=== PATIENT | male | born 1955 | race Caucasian/White ===

== ENCOUNTER 2024-11-03 17:19 | Inpatient (IN) | payer OTHER ==
[~2024-11-03] VITALS: Ht 177.8 cm; Wt 89.2 kg
[~2024-11-03 17:19] MED LIST: ALBUMIN (HUMAN) 25% 50 ML IV ONE; CACL 1GM SYG IVP ONE; LIDOCAINE PF 100MG/5ML (2%) SYRINGE 5ML IVP ONE; MAGNESIUM SULFATE 1 GM/2 ML VIAL IM ONE; MANNITOL 25% 50ML VIAL IV ONE; NOREPINEPHRINE BITARTRATE 1 MG/1 ML ML IV ONE; SODIUM BICARB 8.4% 50ML SYRINGE IVP ONE
--- NOTE | 2024-11-03 17:45 | ERN ---
ED Note History of Present Illness Stated Complaint: CHEST PAIN Chief Complaint: Chest Pain Time Seen by MD: 17:21 Time Seen by Midlevel: 17:21 Dictation: The patient is a 68-year-old male with a history of CAD, who presents to the emergency department with complaints of left-sided chest pain onset an hour ago. Patient reports she was sent over by the [facility] after for a routine visit. Patient reports that he has been having this pain on and off for about a year. Reports pain as sharp. Reports pain has resolved. Allergies: Coded Allergies: No Known Allergies (Unverified Allergy, Unknown, 11/03/24) Past Medical History Past Medical History: High Cholesterol, Other Additional Past Medical Hx: GRAVES DISEASE Surgical History: Other RN Note Reviewed/Agreed w/PFSH: Yes Review of System Dictation Constitutional: Negative for fever,chills, and weight loss Eyes: Negative for injury, pain,redness, and discharge ENT: Negative for injury,pain or swelling Cardiovascular: Negative for palpitations, and edema positive for chest pain Respiratory: Negative for shortness of breath, cough, and wheezing, Abdomen/GI: Negative for abdominal pain, nausea, vomiting, diarrhea, and constipation Back: Negative for injury and pain : Negative for injury, bleeding and discharge MS/Extremity: Negative for injury and deformity Skin: Negative for rash, and discoloration Neuro: Negative for headache, weakness, numbness, tingling, and seizure Psych: Negative for suicide ideation, homicidal ideation, and hallucinations Initial Vital Sign VS Vital Signs Date Time Temp Pulse Resp B/P (MAP) Pulse Ox O2 Delivery O2 Flow Rate FiO2 11/03/24 17:22 97.9 75 20 134/95 98 Room Air 0 11/03/24 18:00 21 Physical Exam Dictation Vital Signs reviewed General Appearance: Alert, oriented x 3, no acute distress, well developed, nourished. Head and Face: non-traumatic. Eyes: PERRL, pink conjunctivas, eyelid no trauma, anterior chamber with arcus senilis. Ears: Pinnas intact and no signs of trauma or erythema ear canals clear and no discharge TM no erythema Nose: No discharge, no bleeding. Oropharynx: Mouth normal, tongue pink. pharynx clear,no erythema, tonsils no exudates, no abscesses noted, mucous membrane moist Neck: Supple, non-tender, no thyromegaly, no masses, no JVD, no bruits Breast:Deferred Chest:No tenderness, no crepitus, no paradoxical movement, no retractions Lungs:Clear, well-ventilated, symmetric, no rales, no wheezing, no rhonchi, no stridor, good breath sounds bilaterally Heart: Regular rate, regular rhythm, no murmur, no gallops Vascular: no peripheral edema, Abdomen: Soft, positive bowel sounds, nondistended, no guarding, nontender, no rebound, no masses no hepatomegaly, no splenomegaly, no Vidales's sign, no hernias. Rectal: Deferred Genital: Deferred Neurological: Normal speech, motor function intact, sensory function intact Musculoskeletal: Neck nontender, full range of motion, back nontender, full range of motion, Extremities: nontender, full range of motion Skin: Color pink, dry, no turgor, no rash, no lacerations, no abrasions, no contusions. Lymphatic: Deferred Results (Laboratory/Radiology) Laboratory/Radiology Laboratory Tests Test 11/03/24 17:49 11/03/24 18:34 White Blood Count 5.8 K/uL (4.8-10.8) Red Blood Count 3.92 MIL/uL (4.50-6.20) L Hemoglobin 12.9 g/dL (14.0-18.0) L Hematocrit 38.7 % (42-54) L Mean Corpuscular Volume 98.7 fL (79-99) Mean Corpuscular Hemoglobin 32.9 pg (27.0-33.0) Mean Corpuscular Hemoglobin Concent 33.3 g/dL (32.0-36.0) Red Cell Distribution Width 12.5 % (11.0-15.5) Platelet Count 197 K/uL (130-400) Mean Platelet Volume 10.8 fL (7.5-10.5) H Immature Granulocyte % (Auto) 0.7 % (0-1) Neutrophils (%) (Auto) 64.2 % (40.0-77.0) Lymphocytes (%) (Auto) 20.6 % (21.0-51.0) L Monocytes (%) (Auto) 10.5 % (3.0-13.0) Eosinophils (%) (Auto) 2.6 % (0.0-8.0) Basophils (%) (Auto) 1.4 % (0.0-5.0) Neutrophils # (Auto) 3.7 K/uL (1.8-7.7) Lymphocytes # (Auto) 1.2 K/uL (1.0-4.8) Monocytes # (Auto) 0.6 K/uL (0.1-1.0) Eosinophils # (Auto) 0.15 K/uL (0.00-0.70) Basophils # (Auto) 0.08 K/uL (0.00-0.20) Absolute Immature Granulocyte (auto 0.04 K/uL (0-1) Nucleated Red Blood Cells 0.0 % (0.0-0.19) Sodium Level 138 mmol/L (136-145) Potassium Level 5.1 mmol/L (3.5-5.1) Chloride Level 104 mmol/L (101-111) Carbon Dioxide Level 27 mmol/L (21-32) Blood Urea Nitrogen 16 mg/dL (7-18) Creatinine 0.9 mg/dL (0.5-1.3) Glomerular Filtration Rate Calc 94 mL/min (>90) Random Glucose 91 mg/dL (70-105) Total Calcium 8.7 mg/dL (8.5-10.1) Magnesium Level 2.50 mg/dL (1.80-2.40) H Total Creatine Kinase 116 U/L (21-232) Troponin I High Sensitivity 9 ng/L (4-75) 9 ng/L (4-75) REASON: cp ORDERING PHYSICIAN: JETHRO BHAGAT [employer] PROCEDURE: CXR1VW - CHEST 1VW EXAM: CR Chest, 2 View. CLINICAL HISTORY: COMPARISON: None provided. FINDINGS: LUNGS: The lungs show no infiltrate or other acute finding. PLEURAL SPACES: No evidence of pleural effusion or pneumothorax. MEDIASTINUM: Cardiac size and mediastinal contours within normal limits. BONES: No acute osseous abnormality. IMPRESSION: No acute cardiopulmonary pathology is evident. /[place] Labs Reviewed?: Yes EKG: (+) rhythm (Sinus rhythm) EKG Comment: Date:11/03/2024 Time:1731 Ventricular rate:67 [place] interval:187 QRS duration:85 QT/QTc:400/424 EKG interpretation: Sinus rhythm Reviewed by ED Attending no STEMI ED Course ED Course Orders Procedure Category Date Status Time 12 Lead Ekg Tracing- EKG 11/03/24 Logged Technical 17:27 Cbc With Differential LAB 11/03/24 Complete 17:28 Chest 1vw RAD 11/03/24 Resulted 17:28 Magnesium LAB 11/03/24 Complete 17:28 Creatine Kinase, Total LAB 11/03/24 Complete 17:28 Troponin I High LAB 11/03/24 Complete Sensitivity 17:28 Basic Metabolic Panel LAB 11/03/24 Complete 17:28 Aspirin 325mg Tab PHA 11/03/24 Complete (Aspirin 325mg Tab) 18:00 Troponin I High LAB 11/03/24 Complete Sensitivity 18:20 Current Medications Medications (Trade) Dose Ordered Sig/Brittany Route PRN Reason Start Time Stop Time Status Last Admin Dose Admin Aspirin (Aspirin 325mg Tab) 325 mg ONCE ONCE PO 11/03/24 18:00 11/03/24 18:01 DC 11/03/24 17:53 Vital Signs Date Time Temp Pulse Resp B/P (MAP) Pulse Ox O2 Delivery O2 Flow Rate FiO2 11/03/24 19:26 97.9 75 16 145/68 98 Room Air* 0 21 11/03/24 18:00 97.9 72 16 132/64 98 Room Air* 0 21 11/03/24 17:22 97.9 75 20 134/95 98 Room Air 0 HEART Score Response (Comments) Value History: High suspicion (+2) 2 EKG: Normal 0 Age: > 65yrs (+2) 2 Risk Factors: 3+ risk factors (+2) 2 Initial Troponin: Normal limit (0) 0 Total 6 Medical Decision Making MDM MDM:The patient is a 68-year-old male with a history of CAD, who presents to the emergency department with complaints of left-sided chest pain onset an hour ago. Patient reports she was sent over by the [facility] after for a routine visit. Patient reports that he has been having this pain on and off for about a year. Reports pain as sharp. Reports pain has resolved. CBC showed no leukocytosis, mild normocytic anemia, chemistry showed mild hypomagnesemia, negative troponin x2, chest x-ray showed no acute pathology. Patient will be admitted for further evaluation and management. Differential diagnosis: ACS, costochondritis, tachyarrhythmia, electrolyte imbalance, dehydration Comorbidities: CAD, hyperlipidemia Tests considered and not ordered secondary to shared decision making include: none Previous outside records reviewed: none Risk of complication and/or morbidity or mortality of patient management: The patient meets criteria for admission. Need for emergency major/minor surgery: No There are no social concerns with this patient. I independently interpreted the tests I ordered (labs, urinalysis, etc.). I discussed the case with the hospitalist for admission. I discussed the case with the following specialists: none. Historian: [email or web address]. I independently interpreted imaging studies and EKGs that I ordered (US, CT, XR, EKG, etc.). External chart review: none. Medical management and examination interpretation discussions were had by me with other qualified healthcare professionals as indicated for the patient's care. DX & DISP Disposition: Inpatient Decision to Admit Date: Nov 03, 2024 Decision to Admit Time: 19:57 Departure Impression: Primary Impression: Chest pain Condition: Stable I have reviewed the case, and I agree with, Diagnosis and Plan JETHRO BHAGAT [employer] Nov 03, 2024 17:45
[2024-11-03] MEDS: ASPIRIN 325MG TAB PO ONE (17:53)
[2024-11-03 17:59] LABS: IMMATURE GRANULOCYTE ABSOLUTE 0.04 K/uL (0-1); NUCLEATED RED BLOOD CELLS 0.0 % (0.0-0.19); PLATELET COUNT (AUTO) 197 K/uL (130-400); RED BLOOD CELL COUNT(AUTO) 3.92 MIL/uL (4.50-6.20); RED CELL DISTRIBUTION WIDTH 12.5 % (11.0-15.5); WHITE BLOOD COUNT (AUTO) 5.8 K/uL (4.8-10.8)
[2024-11-03 18:17] LABS: CREATINE KINASE, TOTAL 116.0 U/L (21-232); CREATININE 0.9 mg/dL (0.5-1.3); GLOMERULAR FILTR. RATE CALC 94.0 mL/min (>90); GLUCOSE,RANDOM 91.0 mg/dL (70-105); SODIUM SERUM 138.0 mmol/L (136-145); UREA NITROGEN, BLOOD 16.0 mg/dL (7-18)
--- NOTE | 2024-11-03 18:40 | HMCIMG ---
EXAM: CR Chest, 2 View. CLINICAL HISTORY: cp COMPARISON: None provided. FINDINGS: LUNGS: The lungs show no infiltrate or other acute finding. PLEURAL SPACES: No evidence of pleural effusion or pneumothorax. MEDIASTINUM: Cardiac size and mediastinal contours within normal limits. BONES: No acute osseous abnormality. IMPRESSION: No acute cardiopulmonary pathology is evident. /Williams
--- NOTE | 2024-11-03 19:46 | NUR ---
nil home meds avail at bedside, instructed to bring them over tomorrow
--- NOTE | 2024-11-03 19:58 | HP ---
History of Present Illness History of Present Illness Mr. Valadez a 68-year-old male that was seen and examined today on 11/03/2024. Patient is a good historian of personal health Patient reports that he came to the emergency department with a chief complaint of chest pain. Onset was two or three years ago. Today's episode began at 11:00 a.m.. Location is midsternal. Duration is on and off. Character is described as "neck someone is pushing a knuckle into the center of my chest. "There was no alleviating factors. There was no aggravating factors. Patient reports that symptoms seemingly resolve on their own. Patient denies any associated shortness of breath. Today in the emergency department CBC unremarkable, chemistry unremarkable, troponin unremarkable x2. Emergency room physician recommended that patient be diagnosis of chest pain. Past Medical History ADDITIONAL PAST MEDICAL HISTORY: [Hyperlipidemia, Graves disease] SOCIAL HISTORY: [Patient quit smoking in August of 2024. Patient is a former heavy smoker. Patient denies alcohol use. Patient denies drug use. Patient lives alone. Patient is a assisted with managing his doctor's appointments and grocery shopping with his neighbor who is named Santino. Patient is typically able to ambulate on his own and toilet on his own.] SURGICAL HISTORY: [Denies] Review of Systems General: No Fever, No Chills, No Night Sweats, No Fatigue, No Malaise, No Appetite, No Other HEENT: No Head Aches, No Visual Changes, No Eye Pain, No Ear Pain, No Dysphasia, No Sinus Congestion, No Post Nasal Drip, No Sore Throat, No Other Pulmonary: No Dyspnea, No Cough, No Pleuritic Chest Pain, No Other Cardiovascular: Chest Pain; No: Palpitations, Orthopnea, Paroxysmal Noc. Dyspnea, Edema, Lt Headedness, Other Gastrointestinal: No: Nausea, Vomiting, Abdominal Pain, Diarrhea, Constipation, Melena, Hematochezia, Other Genitourinary: No Dysuria, No Frequency, No Incontinence, No Hematuria, No Retention, No Other Musculoskeletal: No: other, neck pain, shoulder pain, arm pain, back pain, hand pain, leg pain, foot pain Skin: No Urticaria, No Rash, No Other Neurological: No: Weakness, Numbness, Incoordination, Change in speech, Confusion, Seizures, Other Allergies: Coded Allergies: No Known Allergies (Unverified Allergy, Unknown, 11/03/24) Exam Vital Signs Vital Signs Date Time Temp Pulse Resp B/P (MAP) Pulse Ox O2 Delivery O2 Flow Rate FiO2 11/03/24 19:26 97.9 75 16 145/68 98 Room Air* 0 21 General Appearance: Alert, Oriented X3, Cooperative, No acute distress HEENT: Atraumatic, EOMI Respiratory: Clear to auscultation, Normal air movement, NL respiratory effort Cardiovascular: Regular rate, Regular rhythm, Normal S1, Normal S2 Abdominal: Normal bowel sounds, Soft, No tenderness Extremities: No edema Skin: No significant lesion Neuro: Normal speech, Strength at 5/5 X4 ext, Sensation intact, Cranial nerves 3-12 NL Psych/Mental Status: Mental status NL, Mood NL, Thoughts/Content NL Assessment/Plan ASSESSMENT: [ Chest pain, POA Hyperlipidemia, POA] PLAN: [ Admit patient to medical floor as inpatient status. Place patient on telemetry monitoring. Administer aspirin 325 mg by mouth times 1 dose Continue aspirin 81 mg by mouth once daily Nitropaste 0.5 inches anterior chest wall every 8 hours Trend troponin every 6 hours x 3 sets Supplemental oxygen to maintain O2 saturation greater than 92% Consult cardiology if any elevation in troponin or troponin uptrending, or if patient deemed to need stress test by daytime rouding service. Atorvastatin 40 mg by mouth once daily GI prophylaxis, famotidine DVT prophylaxis, Lovenox ADVANCED CARE PLANNING 1. Which of the following were discussed? Hospice Care - Yes Therapeutic options - yes Advance Directives - Yes - patient states he does not have any advance directives in place at this time, however his daughter, iván Brown can make decisions for him if he becomes unable. Other discussions - patient wishes to remain a full code 2. Discussed with who? Patient 3. Voluntary nature of this service was explained to the patient? Yes 4. Amount of time spent - ___16 minutes____ 5. Reviewed by Physician? (if this service was performed by NPP) Yes This document was generated in part using voice recognition software, occasional wrong word or sound alike substitutions may have occurred due to the inherent limitations of voice recognition software. Read the chart carefully and recognize using context, where the substitutions have occurred. Although every effort was made to edit the content, direct support staff member and typing errors may occur ATTESTATION BY PHYSICIAN I have seen and examined the patient. I reviewed the documentation, medical decision making, and treatment plan as noted by the mid-level provider above. I agree with the findings and plan of care. DEBORAH MARTINEZ [facility] Nov 03, 2024 19:58
[2024-11-03] MEDS: NITROGLYCERIN 1GM OINT 1 INCH/1GM TD SCH (20:46)
[2024-11-03 20:57] LABS: APPEARANCE,URINE CLEAR (CLEAR); GLUCOSE, URINE (UA) NEGATIVE (NEGATIVE); LEUKOCYTE ESTERASE ,URINE NEGATIVE Leu/uL (NEGATIVE); NITRATE,URINE NEGATIVE (NEGATIVE); OCCULT BLOOD,URINE NEGATIVE (NEGATIVE)
[2024-11-03 20:58] LABS: ADD UA MICROSCOPIC NO
[2024-11-03] MEDS ORDERED: LACTULOSE 20 GM/30 ML UDCUP PO PRN (21:00)
--- NOTE | 2024-11-04 06:30 | EKG ---
[facility] Test Date: 2024-11-03 Test Time: 17:31:15 Pat Name: CLARE KERR Department: EDHIP Room: 231 Gender: M Project Director: [id number] : 1955 Requested By: TONY TOMLIN Order Number: [id number] Reading MD: Darlyn Crowell Measurements Intervals [place] Rate: 67 P: 41 [place]: 187 QRS: 30 QRSD: 85 T: 52 QT: 400 QTc: 424 Interpretive Statements Sinus rhythm No previous ECG available for comparison Electronically Signed On 11-06-2024 08:34:19 CDT by Darlyn Crowell Please click the below link to view image of tracing.
[2024-11-04 07:55] LABS: IMMATURE GRANULOCYTE ABSOLUTE 0.03 K/uL (0-1); NUCLEATED RED BLOOD CELLS 0.0 % (0.0-0.19); PLATELET COUNT (AUTO) 171 K/uL (130-400); RED BLOOD CELL COUNT(AUTO) 3.76 MIL/uL (4.50-6.20); RED CELL DISTRIBUTION WIDTH 12.3 % (11.0-15.5); WHITE BLOOD COUNT (AUTO) 5.2 K/uL (4.8-10.8)
[2024-11-04 08:24] LABS: CREATININE 1.0 mg/dL (0.5-1.3); GLOMERULAR FILTR. RATE CALC 82.0 mL/min (>90); GLUCOSE,RANDOM 89.0 mg/dL (70-105); PHOSPHORUS 4.1 mg/dL (2.5-4.9); SODIUM SERUM 140.0 mmol/L (136-145); UREA NITROGEN, BLOOD 15.0 mg/dL (7-18)
[2024-11-04] MEDS: FAMOTIDINE 20MG TAB PO SCH (09:10)
[2024-11-04] MEDS: ASPIRIN 81 MG EC TAB PO SCH (09:11)
[2024-11-04] MEDS: ENOXAPARIN SODIUM 40 MG/0.4 ML SYRINGE SQ SCH (09:11)
--- NOTE | 2024-11-04 09:56 | PN ---
[facility] PROGRESS NOTE Date of Service: Nov 04, 2024 Time of Service: 09:50 SUBJECTIVE: Mr. Valadez a 68-year-old male that was seen and examined today on 11/03/2024. Patient reports that he came to the emergency department with a chief complaint of chest pain. Onset was two or three years ago. He had similar repeated episodes months back which resolved on its own. Today's episode began at 11:00 a.m. Location is midsternal. Duration is on and off. Character is described as "neck someone is pushing a knuckle into the center of my chest. The chest pain did not radiate to shoulder, neck or jaw. "There was no alleviating factors. There was no aggravating factors. Patient reports that symptoms seemingly resolve on their own. He denies nausea, vomiting, fever and any other associated symptoms. Patient denies any associated shortness of breath. Patient has a past medical history of hyperlipidemia and Graves disease. He has been taking atorvastatin and Synthroid as his home medications. Today in the emergency department WBC 5.8, hemoglobin 12.9 platelets 197. His chemistries were within normal limits sodium 140, potassium 4.2, blood urea nitrogen 15 and creatinine 1.0. His electrocardiogram showed normal sinus rhythm. Patient will be admitted for further evaluation and related recommendations in Med-Surg. 11/04/24 Patient was evaluated at the bedside in ED-09. He reports that he is having chest pain that comes and goes. The patient reports having 2 episodes of chest pain in the last hour. He denies associated symptoms such as shortness of breath, palpitation, diaphoresis, dizziness, nausea or syncope. He does however complain of muscle pain in his lower limbs described as a dull aching discomfort that begins in the hip region that is worsened with movement. The patient complains of tingling and numbness in his feet bilaterally. No fever, chills or recent infection reported. Appetite and oral intake are normal. No other acute complaints at this time. On physical exam, a systolic murmur was auscultated over the aortic area. Bilateral carotid bruits are present. Lower extremities are cool to the touch with diminished pedal pulses. Patient reports bilateral leg muscle pain with exertion (suggestive of claudication), and chronic numbness and tingling in the feet. Patient reports recently quitting smoking tobacco for 2 months. He had a 1 pack a day smoking history since 1968. 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 The patient says his chest pain has been ongoing for the past 3 years, and that it gets worse with exertion and at rest. REVIEW OF SYSTEMS CONSTITUTIONAL: No fever, chills, or night sweats. NEUROLOGICAL: Denies headache, sensory and motor deficit. CARDIOVASCULAR: Denies any exertional angina, dyspnea on exertion, palpitations. PULMONARY: Denies any shortness of breath, cough, phlegm/sputum, hemoptysis, pleuritic chest pain. GASTROINTESTINAL: Denies nausea, vomiting. Denies pain, tenderness around the abdomen. GENITOURINARY: Denies frequency, urgency, nocturia, hematuria or incontinence. PHYSICAL EXAM GENERAL APPEARANCE: The patient is alert, awake and oriented and bedbound. NEUROLOGICAL: No sensory and motor deficits. CHEST: Normal chest expansion. LUNGS: Normal vesicular breath sound. Absence of any rales, rhonchi or any wheezing. CARDIOVASCULAR: Systolic murmur heard over aortic area. Bilateral carotid bruits heard. No JVD. No peripheral edema. ABDOMEN: Soft nontender, and nondistended. There is no rebound, voluntary guarding, or rigidity. No abdominal bruit heard. GENITOURINARY: No suprapubic tenderness. No costovertebral angle tenderness. EXTREMITIES: Complains of muscle pain in lower limbs. Limbs are non-edematous. Bilateral pedal pulses diminished. Lower extremities are cool to the touch bilaterally. Patient endorses numbness and tingling in bilateral feet. Vital Signs (last 8hr) Date Time Temp Pulse Resp B/P (MAP) Pulse Ox O2 Delivery O2 Flow Rate FiO2 11/04/24 05:07 98.1 70 16 132/60 98 Room Air* 0 21 11/04/24 03:02 98.1 72 16 142/60 98 Room Air* 0 21 LABS: Laboratory: Test 11/04/24 07:20 11/03/24 20:45 11/03/24 17:49 Range/Units White Blood Count 5.2 4.8-10.8 K/uL Red Blood Count 3.76 L 4.50-6.20 MIL/uL Hemoglobin 12.2 L 14.0-18.0 g/dL Hematocrit 38.6 L 42-54 % Mean Corpuscular Volume 102.7 H 79-99 fL Mean Corpuscular Hemoglobin 32.4 27.0-33.0 pg Mean Corpuscular Hemoglobin Concent 31.6 L 32.0-36.0 g/dL Red Cell Distribution Width 12.3 11.0-15.5 % Platelet Count 171 130-400 K/uL Mean Platelet Volume 10.3 7.5-10.5 fL Immature Granulocyte % (Auto) 0.6 0-1 % Neutrophils (%) (Auto) 59.8 40.0-77.0 % Lymphocytes (%) (Auto) 22.3 21.0-51.0 % Monocytes (%) (Auto) 12.4 3.0-13.0 % Eosinophils (%) (Auto) 3.6 0.0-8.0 % Basophils (%) (Auto) 1.3 0.0-5.0 % Neutrophils # (Auto) 3.1 1.8-7.7 K/uL Lymphocytes # (Auto) 1.2 1.0-4.8 K/uL Monocytes # (Auto) 0.7 0.1-1.0 K/uL Eosinophils # (Auto) 0.19 0.00-0.70 K/uL Basophils # (Auto) 0.07 0.00-0.20 K/uL Absolute Immature Granulocyte (auto 0.03 0-1 K/uL Nucleated Red Blood Cells 0.0 0.0-0.19 % Sodium Level 140 136-145 mmol/L Potassium Level 4.2 3.5-5.1 mmol/L Chloride Level 107 101-111 mmol/L Carbon Dioxide Level 28 21-32 mmol/L Blood Urea Nitrogen 15 7-18 mg/dL Creatinine 1.0 0.5-1.3 mg/dL Glomerular Filtration Rate Calc 82 >90 mL/min Random Glucose 89 70-105 mg/dL Total Calcium 8.4 L 8.5-10.1 mg/dL Phosphorus Level 4.1 2.5-4.9 mg/dL Magnesium Level 2.20 1.80-2.40 mg/dL Troponin I High Sensitivity 11 4-75 ng/L Thyroid Stimulating Hormone (TSH) 1.33 0.36-3.74 uIU/mL Urine Color COLORLESS YELLOW Urine Appearance CLEAR CLEAR Urine pH 5.5 5.0-8.0 Urine Specific [place] 1.009 1.001-1.031 Urine Protein NEGATIVE NEGATIVE mg/dL Urine Glucose (UA) NEGATIVE NEGATIVE mg/dL Urine Ketones NEGATIVE NEGATIVE mg/dL Urine Occult Blood NEGATIVE NEGATIVE Urine Nitrate NEGATIVE NEGATIVE Urine Bilirubin NEGATIVE NEGATIVE mg/dL Urine Urobilinogen 0.2 0.2-1.0 mg/dL Urine Leukocyte Esterase NEGATIVE NEGATIVE [place]/uL Total Creatine Kinase 116 21-232 U/L Current Medications Medications (Trade) Dose Ordered Sig/Brittany Route PRN Reason Start Time Stop Time Status Last Admin Dose Admin Acetaminophen (TYLenol 325MG TAB) 650 mg Q6H PRN PO TEMPERATURE GREATER THAN 101.5 11/03/24 21:00 12/03/24 20:59 Aspirin (Aspirin 81mg Ec Tab) 81 mg DAILY PO 11/04/24 09:00 12/04/24 08:59 11/04/24 09:11 81 MG Atorvastatin Calcium (LIPItor 40MG) 40 mg HS PO 11/03/24 21:00 11/03/24 20:40 DC Atorvastatin Calcium (LIPItor 40MG) 40 mg HS PO 11/03/24 21:00 12/03/24 20:59 11/03/24 20:45 40 MG Enoxaparin Sodium (Lovenox) 40 mg DAILY SQ 11/04/24 09:00 12/04/24 08:59 11/04/24 09:11 40 MG Famotidine (Pepcid 20mg Tab) 20 mg DAILY PO 11/04/24 09:00 12/04/24 08:59 11/04/24 09:10 20 MG Hydralazine HCl (APRESOLine 20MG INJ) 10 mg Q6H PRN IV For:SBP above 160;DBP above 90 11/03/24 21:00 12/03/24 20:59 Lactulose (Constulose 20gm/ 30ml Udcup) 20 gm BID PRN PO CONSTIPATION 11/03/24 21:00 12/03/24 20:59 Morphine Sulfate (morPHINE 4MG SYG) 2 mg Q4H PRN IVP SEVERE PAIN (7-10) 11/03/24 21:00 11/10/24 20:59 Nitroglycerin (Nitroglycerin 1gm Oint) 0.5 inch Q8H TD 11/03/24 21:00 12/03/24 20:59 11/04/24 04:49 0.5 INCH Ondansetron HCl (zoFRAN 4MG INJ) 4 mg Q6H PRN IV NAUSEA/VOMITING 11/03/24 21:00 12/03/24 20:59 DIAGNOSTICS / RADIOLOGY: [place] [id number] [place] [id number] ELECTRO CARDIOGRAM Draft PATIENT: CLARE VALADEZ MR#: [id number] : 1955 SEX: M AGE: 68 [facility] ORDER [id number] REPORT#: [id number] REASON: ORDERING PHYSICIAN: TONY TOMLIN DO PROCEDURE: EKG - 12 LEAD EKG TRACING- TECHNICAL [facility] Test Date: 2024-11-03 Test Time: 17:31:15 Pat Name: CLARE VALADEZ Department: [facility] Room: ED Gender: 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 ASSESSMENT: Coronary artery disease, suspected POA Hyperlipidemia, POA Grave's disease, POA Peripheral artery disease, suspected Carotid artery stenosis, suspected PLAN: Coronary artery disease, suspected * Administer aspirin 325 mg p.o. now and then continue aspirin 81 mg p.o. daily * Troponin every 6 hours, serial troponin levels are 10-21-1111. * Supplemental oxygen as needed to maintain SpO2 greater than 94% * Monitor for recurrence of chest pain, arrhythmias, or hemodynamic changes * Electrocardiogram was done which is normal. * A 2D Echo has been ordered due to patients history of chest pain on exertion and rest. * A cardiology consult has been placed for evaluation of CAD in patient with exertional chest pain and vascular disease. 11/04/24 Peripheral vascular disease, Suspected * Patient has history of exertional bilateral leg pain * Diminished peripheral pulses * A SERA has been ordered due to the patients complaint of bilateral lower extremity claudication, and numbness/tingling in bilateral lower extremities. * Clear aspirin 81 mg daily and statin 40mg * Encouraged supervised exercise therapy for claudication * Counseled on continued smoking cessation 11/04/24 Carotid artery stenosis, Suspected * Presence of bilateral carotid bruit on exam, suspicion for significant stenosis * Carotid Duplex ultrasound has been done, awaiting reports * Risk factor modification: Smoking cessation, BP control, glycemic control. 11/04/24 Hyperlipidemia * Continue home statin therapy atorvastatin 40 mg * Reinforce low-cholesterol, heart healthy diet (limit saturated fats, increase fiber, fruits and vegetables) * Encouraged regular physical activity as tolerated * Monitor lipid panel * Outpatient follow up with PCP/Cardiology for long-term lipid management and cardiovascular risks reduction Supportive measures * Start patient on GI prophylaxis * DVT prophylaxis * Monitor morning labs CBC and BMP daily ATTESTATION BY PHYSICIAN I have seen and examined the patient. I reviewed the documentation, medical decision making, and treatment plan as noted by the resident provider above. I agree with the findings and plan of care. Tushar Rodas MD GISELL DUTTA MD Nov 04, 2024 09:56 MANUEL GARCIA MD Nov 04, 2024 11:04
--- NOTE | 2024-11-04 11:32 | NUR ---
DCP:HOME Pt currently lives alone in his home. Pt does not have any DME, home health, or provider services. Pt states that he is able to complete ADLs independently. Pt states that he is a pt at the [facility] however does not recall the name of the PCP (is on the [facility] team) and uses the [facility] for RX needs. At [place] pt will want to go home and states that his friend/neighbor Santino [phone] can assist with transportation. Addendum: 11/04/24 at 1138 by JEREMY VILLALOBOS SS Amended: Links added.
[2024-11-04 13:15] VITALS: BP 133/90; PULSE 58; RESP 16; TEMP 97.7
[2024-11-04 16:00] VITALS: BP 131/87; PULSE 63; RESP 16; TEMP 97.9
[2024-11-04 17:36] VITALS: O2SAT 98
[2024-11-04 19:46] VITALS: BP 133/69; PULSE 64; RESP 18; TEMP 98.6
[2024-11-04 20:00] VITALS: O2SAT 99
--- NOTE | 2024-11-04 21:24 | CONS ---
[facility] CARDIOLOGY CONSULTATION REPORT Cardiology consultation note dictated for Gurvinder Jacobo MD Date Patient Seen: Nov 04, 2024 Requesting Physician: Amber Ortiz MD Reason for Consultation: Chest pain History of Present Illness: This is a 68-year-old male with a past medical history of hyperlipidemia, CAD s/p PTCA to unknown vessel approximately 30 years ago, ex- smoker of 1 PPD quit 2 months ago and Graves disease who presented to the ED with complaints of chest pain. Cardiology has been consulted for chest pain. The patient endorsed intermittent, nonradiating, left sternal chest discomfort for approximately 3 years which has recently progressed to four daily episodes. He describes the discomfort as pressure-like lasting 15 seconds in duration. Accompanying symptom includes shortness of breath. Symptoms are exacerbated by exertion and are relieved by rest. Past Medical History: As per HPI and summarized below Past Surgical History: Refer to chart Family History: Refer to chart Social History: Refer to chart Habits: Admits to a smoking history of 1 pack per day with cessation 2 months ago. Home Meds: None Current Meds: Medications Dose Ordered [facility] Start Time Stop Time Status Last Admin Acetaminophen 650 mg Q6H PRN 11/03/24 21:00 12/03/24 20:59 Aspirin 81 mg DAILY 11/04/24 09:00 12/04/24 08:59 11/04/24 09:11 Enoxaparin Sodium 40 mg DAILY 11/04/24 09:00 12/04/24 08:59 11/04/24 09:11 Famotidine 20 mg DAILY 11/04/24 09:00 12/04/24 08:59 11/04/24 09:10 Hydralazine HCl 10 mg Q6H PRN 11/03/24 21:00 12/03/24 20:59 Lactulose 20 gm BID PRN 11/03/24 21:00 12/03/24 20:59 Morphine Sulfate 2 mg Q4H PRN 11/03/24 21:00 11/10/24 20:59 11/04/24 15:49 Nitroglycerin 0.5 inch Q8H 11/03/24 21:00 12/03/24 20:59 11/04/24 20:29 Ondansetron HCl 4 mg Q6H PRN 11/03/24 21:00 12/03/24 20:59 Atorvastatin Calcium 40 mg HS 11/03/24 21:00 12/03/24 20:59 11/04/24 20:30 Metoprolol Tartrate 50 mg BID 11/04/24 21:00 12/04/24 20:59 11/04/24 20:29 Review of Systems: CONST: No fever, fatigue, or weight changes. EYES: No recent vision problems. ENT: No congestion, ear pain, or sore throat. C/V: No chest pain, palpitations, or edema. RESP: No cough, congestion, wheezing or shortness of breath. GI: No abdominal pain, nausea, vomiting, constipation, or diarrhea. : No incontinence or dysuria. SKIN: No rash. NEURO: No headache, focal numbness or weakness, dizziness, or seizures. PSYCH: No depression or anxiety. HEME: No abnormal bruising or bleeding. LYMPH: No swollen glands. Physical Examination: GENERAL: No acute distress. HEAD: Normal with no signs of head trauma. EYES: PERRLA, EOMI, conjunctiva and sclera normal. ENT: Hearing grossly intact, normal oropharynx. NECK: Supple without JVD. There is no tenderness, lymphadenopathy, or masses. No thyromegaly. Normal carotid upstrokes without bruits. LUNGS: Clear breath sounds bilaterally. No wheezes, or rhonchi. HEART: Normal rate and rhythm. Normal S1 and S2 without murmurs, gallop or rub. VASC: Peripheral pulses +2 bilaterally. ABD: Bowel sounds normal, soft, nontender, no masses, no organomegaly. No audible bruits. : Not examined LYMPH: No lymphadenopathy noted. EXT: No clubbing, cyanosis or edema. SKIN: No rashes or lesions noted. NEURO: Awake, alert, and oriented x3. No focal sensory or strength deficits noted. Vital Signs (last 8hr) Date Time Temp Pulse Resp B/P (MAP) Pulse Ox O2 Delivery O2 Flow Rate FiO2 11/04/24 19:46 98.6 64 18 133/69 99 Room Air 11/04/24 17:36 98 Room Air* 0 21 11/04/24 16:00 97.9 63 16 131/87 98 Room Air Laboratory: Hematology Labs: Test 11/04/24 07:20 Range/Units White Blood Count 5.2 4.8-10.8 K/uL Red Blood Count 3.76 L 4.50-6.20 MIL/uL Hemoglobin 12.2 L 14.0-18.0 g/dL Hematocrit 38.6 L 42-54 % Mean Corpuscular Volume 102.7 H 79-99 fL Mean Corpuscular Hemoglobin 32.4 27.0-33.0 pg Mean Corpuscular Hemoglobin Concent 31.6 L 32.0-36.0 g/dL Red Cell Distribution Width 12.3 11.0-15.5 % Platelet Count 171 130-400 K/uL Mean Platelet Volume 10.3 7.5-10.5 fL Immature Granulocyte % (Auto) 0.6 0-1 % Neutrophils (%) (Auto) 59.8 40.0-77.0 % Lymphocytes (%) (Auto) 22.3 21.0-51.0 % Monocytes (%) (Auto) 12.4 3.0-13.0 % Eosinophils (%) (Auto) 3.6 0.0-8.0 % Basophils (%) (Auto) 1.3 0.0-5.0 % Neutrophils # (Auto) 3.1 1.8-7.7 K/uL Lymphocytes # (Auto) 1.2 1.0-4.8 K/uL Monocytes # (Auto) 0.7 0.1-1.0 K/uL Eosinophils # (Auto) 0.19 0.00-0.70 K/uL Basophils # (Auto) 0.07 0.00-0.20 K/uL Absolute Immature Granulocyte (auto 0.03 0-1 K/uL Nucleated Red Blood Cells 0.0 0.0-0.19 % Chemistry Labs: Test 11/04/24 12:14 11/04/24 07:20 11/03/24 17:49 Range/Units Troponin I High Sensitivity 8 4-75 ng/L Sodium Level 140 136-145 mmol/L Potassium Level 4.2 3.5-5.1 mmol/L Chloride Level 107 101-111 mmol/L Carbon Dioxide Level 28 21-32 mmol/L Blood Urea Nitrogen 15 7-18 mg/dL Creatinine 1.0 0.5-1.3 mg/dL Glomerular Filtration Rate Calc 82 >90 mL/min Random Glucose 89 70-105 mg/dL Total Calcium 8.4 L 8.5-10.1 mg/dL Phosphorus Level 4.1 2.5-4.9 mg/dL Magnesium Level 2.20 1.80-2.40 mg/dL Thyroid Stimulating Hormone (TSH) 1.33 0.36-3.74 uIU/mL Total Creatine Kinase 116 21-232 U/L Diagnostics / Radiology: Impression and Plan: Chest pain Hyperlipidemia CAD s/p PTCA to unknown vessel approximately 30 years ago Ex-smoker of 1 PPD with cessation 2 months ago Graves disease Chest pain Cardiac enzymes negative x5. EKG demonstrated normal sinus rhythm with heart rate of 67bpm, no acute ischemia noted. -Start metoprolol tartrate 50 mg b.i.d. -Obtain Coronary CTA in AM -Pending 2D Echocardiogram and bilateral carotid Doppler MIKAYLA KIMBALL [facility] Nov 04, 2024 21:24
[2024-11-04 23:59] VITALS: BP 95/56; PULSE 58; RESP 18; TEMP 98.5
[2024-11-05] VITALS (7 sets, daily range): BP systolic 96–139; BP diastolic 51–82; PULSE 56–71; RESP 16–20; TEMP 97.5–98.6; O2SAT 99
[2024-11-05 04:29] LABS: NUCLEATED RED BLOOD CELLS 0.0 % (0.0-0.19); PLATELET COUNT (AUTO) 180.0 K/uL (130-400); RED BLOOD CELL COUNT(AUTO) 3.54 MIL/uL (4.50-6.20); RED CELL DISTRIBUTION WIDTH 12.1 % (11.0-15.5); WHITE BLOOD COUNT (AUTO) 5.4 K/uL (4.8-10.8)
[2024-11-05 04:39] LABS: CREATININE 1.1 mg/dL (0.5-1.3); GLOMERULAR FILTR. RATE CALC 74.0 mL/min (>90); GLUCOSE,RANDOM 92.0 mg/dL (70-105); SODIUM SERUM 137.0 mmol/L (136-145); UREA NITROGEN, BLOOD 17.0 mg/dL (7-18)
--- NOTE | 2024-11-05 10:34 | HMCIMG ---
EXAMINATION: DUPLEX ULTRASOUND EXAMINATION OF THE BILATERAL CAROTID AND VERTEBRAL ARTERIES. CLINICAL HISTORY: Bilateral carotid bruits. COMPARISON: None provided. TECHNIQUE: Real-time ultrasound scan of the bilateral carotid and vertebral arteries, 2-D grayscale, with color Doppler flow and spectral waveform analysis. FINDINGS: Color and spectral Doppler interrogation of the carotid vessels on the right demonstrate peak systolic velocities as follows: CCA (Proximal and distal): 96 and 86 cm/s respectively. ECA: 230 cm/s. ICA (Proximal, mid, and distal): 394, 267, and 167 cm/s respectively. Vertebral artery demonstrates antegrade flow: 83 cm/s. Right ICA/CCA ratio: 4.6 Peak systolic velocities on the left are as follows: CCA (Proximal and distal): 106 and 112 cm/s respectively. Bulb: 88 cm/s. ECA: 152 cm/s. ICA (Proximal, mid, and distal): 520, 158, and 135 cm/s respectively. Vertebral artery demonstrates antegrade flow: 36 cm/s. Left ICA/CCA ratio: 4.7 Both the common carotid arteries and their branches reveal mild intimal thickening. There are calcified plaques in the right bulb and proximal external and internal carotid arteries causing about 20% to 30% diameter stenosis. There are calcified plaques in the left bulb and proximal internal carotid artery causing about 30% to 40% diameter stenosis. There are raised velocities in the bilateral external and internal carotid arteries. IMPRESSION: Mild intimal thickening in the bilateral carotid arteries and their branches. Plaques as described. Bilateral ICA/CCA ratio is more than 4.0 suggesting more than 70% stenosis. Recommend CT/MR angiogram. Raised velocities in the bilateral external and internal carotid arteries. /[place]
[2024-11-05] MEDS ORDERED: IOHEXOL 350 MG/ML 100ML INFUS..BTL IV ONE (11:05)
--- NOTE | 2024-11-05 11:51 | PN ---
[facility] CARDIOLOGY PROGRESS NOTE Date Patient Seen: Nov 05, 2024 Time of Visit: 11:47 Interval History: [No acute events overnight , the patient denies any cardiac symptoms or anginal equivalents, pending CTA and 2Dechoi results ] Physical Examination: GENERAL: No acute distress. HEAD: Normal with no signs of head trauma. EYES: PERRLA, EOMI, conjunctiva and sclera normal. ENT: Hearing grossly intact, normal oropharynx. NECK: Supple without JVD. There is no tenderness, lymphadenopathy, or masses. No thyromegaly. Normal carotid upstrokes without bruits. LUNGS: Clear breath sounds bilaterally. No wheezes, or rhonchi. HEART: Normal rate and rhythm. Normal S1 and S2 without murmurs, gallop or rub. VASC: Peripheral pulses +2 bilaterally. ABD: Bowel sounds normal, soft, nontender, no masses, no organomegaly. No audible bruits. : Not examined LYMPH: No lymphadenopathy noted. EXT: No clubbing, cyanosis or edema. SKIN: No rashes or lesions noted. NEURO: Awake, alert, and oriented x3. No focal sensory or strength deficits noted. Laboratory: [ ] Hematology Labs: Test 11/05/24 03:49 11/04/24 07:20 Range/Units White Blood Count 5.4 4.8-10.8 K/uL Red Blood Count 3.54 L 4.50-6.20 MIL/uL Hemoglobin 11.5 L 14.0-18.0 g/dL Hematocrit 35.2 L 42-54 % Mean Corpuscular Volume 99.4 H 79-99 fL Mean Corpuscular Hemoglobin 32.5 27.0-33.0 pg Mean Corpuscular Hemoglobin Concent 32.7 32.0-36.0 g/dL Red Cell Distribution Width 12.1 11.0-15.5 % Platelet Count 180 130-400 K/uL Mean Platelet Volume 10.5 7.5-10.5 fL Nucleated Red Blood Cells 0.0 0.0-0.19 % Immature Granulocyte % (Auto) 0.6 0-1 % Neutrophils (%) (Auto) 59.8 40.0-77.0 % Lymphocytes (%) (Auto) 22.3 21.0-51.0 % Monocytes (%) (Auto) 12.4 3.0-13.0 % Eosinophils (%) (Auto) 3.6 0.0-8.0 % Basophils (%) (Auto) 1.3 0.0-5.0 % Neutrophils # (Auto) 3.1 1.8-7.7 K/uL Lymphocytes # (Auto) 1.2 1.0-4.8 K/uL Monocytes # (Auto) 0.7 0.1-1.0 K/uL Eosinophils # (Auto) 0.19 0.00-0.70 K/uL Basophils # (Auto) 0.07 0.00-0.20 K/uL Absolute Immature Granulocyte (auto 0.03 0-1 K/uL Chemistry Labs: Test 11/05/24 03:49 11/04/24 12:14 11/04/24 07:20 11/03/24 17:49 Range/Units Sodium Level 137 136-145 mmol/L Potassium Level 4.0 3.5-5.1 mmol/L Chloride Level 105 101-111 mmol/L Carbon Dioxide Level 24 21-32 mmol/L Blood Urea Nitrogen 17 7-18 mg/dL Creatinine 1.1 0.5-1.3 mg/dL Glomerular Filtration Rate Calc 74 >90 mL/min Random Glucose 92 70-105 mg/dL Total Calcium 8.6 8.5-10.1 mg/dL Troponin I High Sensitivity 8 4-75 ng/L Phosphorus Level 4.1 2.5-4.9 mg/dL Magnesium Level 2.20 1.80-2.40 mg/dL Thyroid Stimulating Hormone (TSH) 1.33 0.36-3.74 uIU/mL Total Creatine Kinase 116 21-232 U/L Diagnostics / Radiology: [Copy/Paste Echos/Imaging Report here] Impression and Plan: [Chest pain Hyperlipidemia CAD s/p PTCA to unknown vessel approximately 30 years ago Ex-smoker of 1 PPD with cessation 2 months ago Graves disease Chest pain Cardiac enzymes negative x5. EKG demonstrated normal sinus rhythm with heart rate of 67bpm, no acute ischemia noted. -Start metoprolol tartrate 50 mg b.i.d. -pending Coronary CTA in AM -Pending 2D Echocardiogram and bilateral carotid Doppler -Continue ASA 81 mg daily atorvastatin 40 mg daily Thank you for this ocnsult cardiology will continue to follow along. ] ATTESTATION BY PHYSICIAN I have seen and examined the patient, reviewed the above documentation, participated in medical decision making, made necessary modifications, and agree with the treatment plan as documented by my mid-level provider above. MD JUAN Caldwell JAMES R MD Nov 05, 2024 11:51
[2024-11-05] MEDS: 0.9%NACL 1000ML 1,000 ML IV ONE (14:03)
--- NOTE | 2024-11-05 17:34 | HMCSR ---
APPROVED REPORT EXAM: Two-dimensional and M-mode echocardiogram with Doppler and color Doppler. INDICATION ICD: Chest Pain 2D Dimensions RVDd3.6 cmLVEF(%)58.3 (>50%)LVED Vol(simp.)73.0 mL IVSd1.2 (0.7-1.1cm)FS(%)30 %LVES Vol(simp.)30.0 mL LVDd3.9 (3.8-5.6cm)LA (2D)3.6 (1.6-4.0cm)LVEF(%, simp.)59 % PWd1.3 (0.7-1.1cm)Ao Root(2D)2.9 (2.0-3.7cm) IVSs1.2 cmIVC diam1.0 cm LVDs2.7 (2.5-4.0cm) PWs1.2 cm Deformation Strain Apical 4-16.7 % Apical 2-16.6 % Apical 3-15.8 % Global Strain-16.4 % M-Mode Dimensions EPSS0.8 cm LA (MM)3.7 (1.6-4.0cm) Ao Root(MM)2.9 (2.0-3.7cm) Aortic Valve AoV Vmax1.4 m/Kylah Peak GR8.3 mmHgLVOT Vmax1.1 m/s AoV VTI0.2 mAo Mean GR4.1 mmHgLVOT VTI0.19 m Mitral Valve MV E Vmax73.4 cm/sDECEL Cehz054 ms MV A Vmax86.7 cm/sP 1/2 T46 ms E/A ratio0.8MVA (PHT)4.7 cm2 TDI E/E' Wmaaqe90.4E/E' Lateral9.5 Medial E' Peak V7.06 cm/sLateral E' Peak V7.75 cm/s Left Ventricle The left ventricle is normal size. GLS 16.0% There is normal LV segmental wall motion. Mild concentri c left ventricular hypertrophy. LVEF is 60-65%. The left ventricular diastolic function is normal. Right Ventricle The right ventricle is normal size. The right ventricular systolic function is normal. Normal TAPSE Atria The left atrium size is normal. The right atrium size is normal. Aortic Valve Aortic valve is trileaflet, mildly sclerotic, and opens well. Sclerotic nodule on the non-coronary cu sp. No aortic regurgitation is present. There is no mobile or oscillating aortic valvular vegetation. There is no aortic valvular stenosis. Mitral Valve The mitral valve is normal in structure. There is trace of mitral valve regurgitation noted. There is no mitral valve stenosis. Tricuspid Valve The tricuspid valve is normal in structure. There is no tricuspid valve regurgitation noted. Pulmonic Valve The pulmonary valve is normal in structure. There is no pulmonic valvular regurgitation. Great Vessels The aortic root is normal in size. The IVC is normal in size and collapses >50% with inspiration. Pericardium There is no pericardial effusion. Other Information Quality : Adequate Conclusion The left atrium size is normal. The right ventricular systolic function is normal. Normal TAPSE Mild concentric left ventricular hypertrophy. GLS 16.0% There is normal LV segmental wall motion. LVEF is 60-65%. The left ventricular diastolic function is normal. Aortic valve is trileaflet, mildly sclerotic, and opens well. Sclerotic nodule on the non-coronary cusp. There is no mobile or oscillating aortic valvular vegetation. There is no pericardial effusion.
--- NOTE | 2024-11-05 18:21 | PN ---
[facility] PROGRESS NOTE Date of Service: Nov 05, 2024 Time of Service: 18:09 SUBJECTIVE: Mr. Valadez a 68-year-old male that was seen and examined today on 11/03/2024. Patient reports that he came to the emergency department with a chief complaint of chest pain. Onset was two or three years ago. He had similar repeated episodes months back which resolved on its own. Today's episode began at 11:00 a.m. Location is midsternal. Duration is on and off. Character is described as "neck someone is pushing a knuckle into the center of my chest. The chest pain did not radiate to shoulder, neck or jaw. "There was no alleviating factors. There was no aggravating factors. Patient reports that symptoms seemingly resolve on their own. He denies nausea, vomiting, fever and any other associated symptoms. Patient denies any associated shortness of breath. Patient has a past medical history of hyperlipidemia and Graves disease. He has been taking atorvastatin and Synthroid as his home medications. Today in the emergency department WBC 5.8, hemoglobin 12.9 platelets 197. His chemistries were within normal limits sodium 140, potassium 4.2, blood urea nitrogen 15 and creatinine 1.0. His electrocardiogram showed normal sinus rhythm. Patient will be admitted for further evaluation and related recommendations in Med-Surg. 11/04/24 Patient was evaluated at the bedside in ED-09. He reports that he is having chest pain that comes and goes. The patient reports having 2 episodes of chest pain in the last hour. He denies associated symptoms such as shortness of breath, palpitation, diaphoresis, dizziness, nausea or syncope. He does however complain of muscle pain in his lower limbs described as a dull aching discomfort that begins in the hip region that is worsened with movement. The patient complains of tingling and numbness in his feet bilaterally. No fever, chills or recent infection reported. Appetite and oral intake are normal. No other acute complaints at this time. On physical exam, a systolic murmur was auscultated over the aortic area. Bilateral carotid bruits are present. Lower extremities are cool to the touch with diminished pedal pulses. Patient reports bilateral leg muscle pain with exertion (suggestive of claudication), and chronic numbness and tingling in the feet. Patient reports recently quitting smoking tobacco for 2 months. He had a 1 pack a day smoking history since 1968. 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 The patient says his chest pain has been ongoing for the past 3 years, and that it gets worse with exertion and at rest. 11/05/24 Patient was evaluated at the bedside room 231. He was hemodynamically stable. Hi symptoms has improved significantly. He doesn't complain of chest pain, shortness of breath and any other associated symptoms. Echocardiogram was done which revealed aortic valve: trileaflet, mildly sclerotic, and opens well. Carotid artery ultrasound showed Bilateral ICA/CCA ratio more than 4.0 suggesting more than 70% stenosis. REVIEW OF SYSTEMS CONSTITUTIONAL: No fever, chills, or night sweats. NEUROLOGICAL: Denies headache, sensory and motor deficit. CARDIOVASCULAR: Denies any exertional angina, dyspnea on exertion, palpitations . PULMONARY: Denies any shortness of breath, cough, phlegm/sputum, hemoptysis, pleuritic chest pain. GASTROINTESTINAL: Denies nausea, vomiting. Denies pain, tenderness around the abdomen. GENITOURINARY: Denies frequency, urgency, nocturia, hematuria or incontinence. PHYSICAL EXAM GENERAL APPEARANCE: The patient is alert, awake and oriented and bedbound. NEUROLOGICAL: No sensory and motor deficits. CHEST: Normal chest expansion. LUNGS: Normal vesicular breath sound. Absence of any rales, rhonchi or any wheezing. CARDIOVASCULAR: Systolic murmur heard over aortic area. Bilateral carotid bruits heard. No JVD. No peripheral edema. ABDOMEN: Soft nontender, and nondistended. There is no rebound, voluntary guarding, or rigidity. No abdominal bruit heard. GENITOURINARY: No suprapubic tenderness. No costovertebral angle tenderness. EXTREMITIES: Complains of muscle pain in lower limbs while walking. Limbs are no n-edematous. Bilateral pedal pulses diminished. Vital Signs (last 8hr) Date Time Temp Pulse Resp B/P (MAP) Pulse Ox O2 Delivery O2 Flow Rate FiO2 11/05/24 12:00 97.9 62 16 117/64 98 Room Air LABS: Laboratory: Test 11/05/24 03:49 11/04/24 12:14 11/04/24 07:20 11/03/24 20:45 Range/Units White Blood Count 5.4 4.8-10.8 K/uL Red Blood Count 3.54 L 4.50-6.20 MIL/uL Hemoglobin 11.5 L 14.0-18.0 g/dL Hematocrit 35.2 L 42-54 % Mean Corpuscular Volume 99.4 H 79-99 fL Mean Corpuscular Hemoglobin 32.5 27.0-33.0 pg Mean Corpuscular Hemoglobin Concent 32.7 32.0-36.0 g/dL Red Cell Distribution Width 12.1 11.0-15.5 % Platelet Count 180 130-400 K/uL Mean Platelet Volume 10.5 7.5-10.5 fL Nucleated Red Blood Cells 0.0 0.0-0.19 % Sodium Level 137 136-145 mmol/L Potassium Level 4.0 3.5-5.1 mmol/L Chloride Level 105 101-111 mmol/L Carbon Dioxide Level 24 21-32 mmol/L Blood Urea Nitrogen 17 7-18 mg/dL Creatinine 1.1 0.5-1.3 mg/dL Glomerular Filtration Rate Calc 74 >90 mL/min Random Glucose 92 70-105 mg/dL Total Calcium 8.6 8.5-10.1 mg/dL Troponin I High Sensitivity 8 4-75 ng/L Immature Granulocyte % (Auto) 0.6 0-1 % Neutrophils (%) (Auto) 59.8 40.0-77.0 % Lymphocytes (%) (Auto) 22.3 21.0-51.0 % Monocytes (%) (Auto) 12.4 3.0-13.0 % Eosinophils (%) (Auto) 3.6 0.0-8.0 % Basophils (%) (Auto) 1.3 0.0-5.0 % Neutrophils # (Auto) 3.1 1.8-7.7 K/uL Lymphocytes # (Auto) 1.2 1.0-4.8 K/uL Monocytes # (Auto) 0.7 0.1-1.0 K/uL Eosinophils # (Auto) 0.19 0.00-0.70 K/uL Basophils # (Auto) 0.07 0.00-0.20 K/uL Absolute Immature Granulocyte (auto 0.03 0-1 K/uL Phosphorus Level 4.1 2.5-4.9 mg/dL Magnesium Level 2.20 1.80-2.40 mg/dL Thyroid Stimulating Hormone (TSH) 1.33 0.36-3.74 uIU/mL Urine Color COLORLESS YELLOW Urine Appearance CLEAR CLEAR Urine pH 5.5 5.0-8.0 Urine Specific [place] 1.009 1.001-1.031 Urine Protein NEGATIVE NEGATIVE mg/dL Urine Glucose (UA) NEGATIVE NEGATIVE mg/dL Urine Ketones NEGATIVE NEGATIVE mg/dL Urine Occult Blood NEGATIVE NEGATIVE Urine Nitrate NEGATIVE NEGATIVE Urine Bilirubin NEGATIVE NEGATIVE mg/dL Urine Urobilinogen 0.2 0.2-1.0 mg/dL Urine Leukocyte Esterase NEGATIVE NEGATIVE [place]/uL Current Medications Medications (Trade) Dose Ordered Sig/Brittany Route PRN Reason Start Time Stop Time Status Last Admin Dose Admin Acetaminophen (TYLenol 325MG TAB) 650 mg Q6H PRN PO TEMPERATURE GREATER THAN 101.5 11/03/24 21:00 12/03/24 20:59 Aspirin (Aspirin 81mg Ec Tab) 81 mg DAILY PO 11/04/24 09:00 12/04/24 08:59 11/05/24 09:06 81 MG Atorvastatin Calcium (LIPItor 40MG) 40 mg HS PO 11/03/24 21:00 11/03/24 20:40 DC Atorvastatin Calcium (LIPItor 40MG) 40 mg HS PO 11/03/24 21:00 12/03/24 20:59 11/04/24 20:30 40 MG Enoxaparin Sodium (Lovenox) 40 mg DAILY SQ 11/04/24 09:00 12/04/24 08:59 11/05/24 09:06 40 MG Famotidine (Pepcid 20mg Tab) 20 mg DAILY PO 11/04/24 09:00 12/04/24 08:59 11/05/24 09:06 20 MG Hydralazine HCl (APRESOLine 20MG INJ) 10 mg Q6H PRN IV For:SBP above 160;DBP above 90 11/03/24 21:00 12/03/24 20:59 Lactulose (Constulose 20gm/ 30ml Udcup) 20 gm BID PRN PO CONSTIPATION 11/03/24 21:00 12/03/24 20:59 Metoprolol Tartrate (loprESSOR) 50 mg BID PO 11/04/24 21:00 12/04/24 20:59 11/04/24 20:29 50 MG Morphine Sulfate (morPHINE 4MG SYG) 2 mg Q4H PRN IVP SEVERE PAIN (7-10) 11/03/24 21:00 11/10/24 20:59 11/04/24 15:49 2 MG Nitroglycerin (Nitroglycerin 1gm Oint) 0.5 inch Q8H TD 11/03/24 21:00 12/03/24 20:59 11/04/24 20:29 0.5 INCH Ondansetron HCl (zoFRAN 4MG INJ) 4 mg Q6H PRN IV NAUSEA/VOMITING 11/03/24 21:00 12/03/24 20:59 DIAGNOSTICS / RADIOLOGY: [facility] [place] [address] [place] [address] IMAGING REPORT Signed PATIENT: CLARE VALADEZ MR#: [id number] : 1955 SEX: M AGE: 68 LOCATION: 2AH ORDER 1109 STATUS: ADM IN REPORT#: [id number] SERVICE 1104 REASON: bilateral carotid bruits ORDERING PHYSICIAN: MANUEL GARCIA MD PROCEDURE: CAROTID - US CAROTID DUPLEX EXAMINATION: DUPLEX ULTRASOUND EXAMINATION OF THE BILATERAL CAROTID AND VERTEBRAL ARTERIES. CLINICAL HISTORY: Bilateral carotid bruits. COMPARISON: None provided. TECHNIQUE: Real-time ultrasound scan of the bilateral carotid and vertebral arteries, 2-D grayscale, with color Doppler flow and spectral waveform analysis. FINDINGS: Color and spectral Doppler interrogation of the carotid vessels on the right demonstrate peak systolic velocities as follows: CCA (Proximal and distal): 96 and 86 cm/s respectively. ECA: 230 cm/s. ICA (Proximal, mid, and distal): 394, 267, and 167 cm/s respectively. Vertebral artery demonstrates antegrade flow: 83 cm/s. Right ICA/CCA ratio: 4.6 Peak systolic velocities on the left are as follows: CCA (Proximal and distal): 106 and 112 cm/s respectively. Bulb: 88 cm/s. ECA: 152 cm/s. ICA (Proximal, mid, and distal): 520, 158, and 135 cm/s respectively. Vertebral artery demonstrates antegrade flow: 36 cm/s. Left ICA/CCA ratio: 4.7 Both the common carotid arteries and their branches reveal mild intimal thickening. There are calcified plaques in the right bulb and proximal external and internal carotid arteries causing about 20% to 30% diameter stenosis. There are calcified plaques in the left bulb and proximal internal carotid artery causing about 30% to 40% diameter stenosis. There are raised velocities in the bilateral external and internal carotid arteries. IMPRESSION: Mild intimal thickening in the bilateral carotid arteries and their branches. Plaques as described. Bilateral ICA/CCA ratio is more than 4.0 suggesting more than 70% stenosis. Recommend CT/MR angiogram. Raised velocities in the bilateral external and internal carotid arteries. /[place] DICTATED BY: DERIK HOPE MD DATE: 11/05/241132 ELECTRONICALLY SIGNED BY: DERIK HOPE MD DATE: 11/05/241132 [place] [id number] IMAGING REPORT Signed PATIENT: CLARE VALADEZ MR#: [id number] : 1955 SEX: M AGE: 68 LOCATION: [facility] ORDER 1120 STATUS: ADM IN REPORT#: [id number] SERVICE 0701 REASON: chest pain ORDERING PHYSICIAN: MANUEL GARCIA MD PROCEDURE: ECHO CMP - ECHO 2-D COMPLETE APPROVED REPORT EXAM: Two-dimensional and M-mode echocardiogram with Doppler and color Doppler. INDICATION ICD: Chest Pain 2D Dimensions RVDd 3.6 cm LVEF(%) 58.3 (>50%) LVED Vol(simp.) 73.0 mL IVSd 1.2 (0.7-1.1cm) FS(%) 30 % LVES Vol(simp.) 30.0 mL LVDd 3.9 (3.8-5.6cm) LA (2D) 3.6 (1.6-4.0cm) LVEF(%, simp.) 59 % PWd 1.3 (0.7-1.1cm) Ao Root(2D) 2.9 (2.0-3.7cm) IVSs 1.2 cm IVC diam 1.0 cm LVDs 2.7 (2.5-4.0cm) PWs 1.2 cm Deformation Strain Apical 4 -16.7 % Apical 2 -16.6 % Apical 3 -15.8 % Global Strain -16.4 % M-Mode Dimensions EPSS 0.8 cm LA (MM) 3.7 (1.6-4.0cm) Ao Root(MM) 2.9 (2.0-3.7cm) Aortic Valve AoV Vmax 1.4 m/s Ao Peak GR 8.3 mmHg LVOT Vmax 1.1 m/s AoV VTI 0.2 m Ao Mean GR 4.1 mmHg LVOT VTI 0.19 m Mitral Valve MV E Vmax 73.4 cm/s DECEL Time 215 ms MV A Vmax 86.7 cm/s P 1/2 T 46 ms E/A ratio 0.8 MVA (PHT) 4.7 cm2 TDI E/E' Medial 10.4 E/E' Lateral 9.5 Medial E' Peak V 7.06 cm/s Lateral E' Peak V 7.75 cm/s Left Ventricle The left ventricle is normal size. GLS 16.0% There is normal LV segmental wall motion. Mild concentric left ventricular hypertrophy. LVEF is 60-65%. The left ventricular diastolic function is normal. Right Ventricle The right ventricle is normal size. The right ventricular systolic function is normal. Normal TAPSE Atria The left atrium size is normal. The right atrium size is normal. Aortic Valve Aortic valve is trileaflet, mildly sclerotic, and opens well. Sclerotic nodule on the non-coronary cusp. No aortic regurgitation is present. There is no mobile or oscillating aortic valvular vegetation. There is no aortic valvular stenosis. Mitral Valve The mitral valve is normal in structure. There is trace of mitral valve regurgitation noted. There is no mitral valve stenosis. Tricuspid Valve The tricuspid valve is normal in structure. There is no tricuspid valve regurgitation noted. Pulmonic Valve The pulmonary valve is normal in structure. There is no pulmonic valvular regurgitation. Great Vessels The aortic root is normal in size. The IVC is normal in size and collapses >50% with inspiration. Pericardium There is no pericardial effusion. Other Information Quality : Adequate Conclusion The left atrium size is normal. The right ventricular systolic function is normal. Normal TAPSE Mild concentric left ventricular hypertrophy. GLS 16.0% There is normal LV segmental wall motion. LVEF is 60-65%. The left ventricular diastolic function is normal. Aortic valve is trileaflet, mildly sclerotic, and opens well. Sclerotic nodule on the non-coronary cusp. There is no mobile or oscillating aortic valvular vegetation. There is no pericardial effusion. DICTATED BY: MARTY GARCIA MD DATE: 11/05/24824 ELECTRONICALLY SIGNED BY: MARTY GARCIA MD DATE: 11/05/24 2030 ASSESSMENT: Coronary artery disease, suspected POA Hyperlipidemia, POA Grave's disease, POA Peripheral artery disease, suspected Carotid artery stenosis PLAN: Coronary artery disease, suspected * Administer aspirin 325 mg p.o. now and then continue aspirin 81 mg p.o. daily * Troponin every 6 hours, serial troponin levels are 9-9-12-11. * Supplemental oxygen as needed to maintain SpO2 greater than 94% * Monitor for recurrence of chest pain, arrhythmias, or hemodynamic changes * Electrocardiogram was done which is normal. * A 2D Echo has been ordered due to patients history of chest pain on exertion and rest. * A cardiology consult has been placed for evaluation of CAD in patient with exertional chest pain and vascular disease. 11/04/24 * Echocardiogram was done which revealed aortic valve: trileaflet, mildly sclerotic, and opens well. * Pending Coronary CTA reports. * Vitamin B12 has been ordered to rule out peripheral neuropathy. * Lipid panels has been ordered to assess Cardiovascular risks. 11/05/24 Peripheral vascular disease, Suspected * Patient has history of exertional bilateral leg pain * Diminished peripheral pulses * A SERA has been ordered due to the patients complaint of bilateral lower extremity claudication, and numbness/tingling in bilateral lower extremities. * Clear aspirin 81 mg daily and statin 40mg * Encouraged supervised exercise therapy for claudication * Counseled on continued smoking cessation 11/04/24 Carotid artery stenosis * Presence of bilateral carotid bruit on exam, suspicion for significant stenosi s * Carotid Duplex ultrasound has been done, awaiting reports * Risk factor modification: Smoking cessation, BP control, glycemic control. 11/04/24 * Carotid artery ultrasound showed Bilateral ICA/CCA ratio more than 4.0 suggesting more than 70% stenosis. 11/05/24 Hyperlipidemia * Continue home statin therapy atorvastatin 40 mg * Reinforce low-cholesterol, heart healthy diet (limit saturated fats, increase fiber, fruits and vegetables) * Encouraged regular physical activity as tolerated * Monitor lipid panel * Outpatient follow up with PCP/Cardiology for long-term lipid management and cardiovascular risks reduction Supportive measures * Start patient on GI prophylaxis * DVT prophylaxis * Monitor morning labs CBC and BMP daily ATTESTATION BY PHYSICIAN I have seen and examined the patient. I reviewed the documentation, medical decision making, and treatment plan as noted by the resident provider above. I agree with the findings and plan of care. ALISA POLLARD MD [facility] MD Nov 05, 2024 18:21
--- NOTE | 2024-11-05 18:23 | CARDIOLOGY ---
RAD REPORT: [facility] CT ANGIO RADIOLOGY REPORT: CORONARY CT ANGIOGRAPHY DATE: Nov 05, 2024 QUALITY: Excellent CLINICAL HISTORY AND INDICATION: [ chest pain ] TECHNIQUE: After obtaining a preliminary hot car charger image, contrast imaging performed on an [employer] [id number] scanner. A dedicated, limited window, coronary imaging protocol was used, with single breath-hold, retrospective ECG gating, and automated arrhythmia rejection. 100 cc of low osmolar contrast agent: Omnipaque 350 was delivered via a 18-gauge IV catheter in the right antecubital fossa, using a power injector and followed by 60 cc of normal saline bolus as a chaser. Collimated images were reformatted at 0.5 mm intervals, and sent to an offline independent workstation for interpretation, using 3D anatomic reconstructions: Curved multiplanar reconstructions, maximum intensity projections, and multiplanar imaging. No metoprolol was administered prior to scanning due to low baseline heart rate. 0.8 mg SL nitroglycerin was given. CORONARY ARTERY DESCRIPTIONS: The coronary arteries arise in normal position. Left main coronary artery: Normal caliber vessel that bifurcates into the LAD and LCx. There is mixed calcified and noncalcified plaque in the left main diffusely with 50% stenosis. Left anterior descending coronary artery: Normal caliber vessel and gives rise to diagonal and septal branches. There is mixed calcified and noncalcified plaque in the proximal LAD with 80-90% stenosis Left circumflex coronary artery: Normal caliber, nondominant and gives rise to a large OM branch. There is mixed calcified and noncalcified plaque in the mid LCx with 80-90% stenosis. Right coronary artery: Large, dominant vessel giving rise to the PL and PDA branches. No stenosis. CAD-RADs: 4B, severe stenosis including distal left main. Thoracic Aorta: Normal diameter. Angi Jacobo MD Cardiovascular Disease [facility] ANGI JACOBO MD Nov 05, 2024 18:23
[2024-11-05 18:41] LABS: NUCLEATED RED BLOOD CELLS 0.0 % (0.0-0.19); PLATELET COUNT (AUTO) 181.0 K/uL (130-400); RED BLOOD CELL COUNT(AUTO) 3.53 MIL/uL (4.50-6.20); RED CELL DISTRIBUTION WIDTH 12.3 % (11.0-15.5); WHITE BLOOD COUNT (AUTO) 4.9 K/uL (4.8-10.8)
[2024-11-05 18:48] LABS: CREATININE 1.0 mg/dL (0.5-1.3); GLOMERULAR FILTR. RATE CALC 82.0 mL/min (>90); GLUCOSE,RANDOM 125.0 mg/dL (70-105); SODIUM SERUM 137.0 mmol/L (136-145); UREA NITROGEN, BLOOD 14.0 mg/dL (7-18)
[2024-11-06] VITALS (19 sets, daily range): BP systolic 87–152; BP diastolic 57–83; PULSE 57–80; RESP 16–20; TEMP 97.7–98.3; O2SAT 96–99
[2024-11-06 04:39] LABS: LDL DIRECT 83 mg/dL (0-99)
--- NOTE | 2024-11-06 08:48 | PN ---
[facility] CARDIOLOGY PROGRESS NOTE Date Patient Seen: Nov 06, 2024 Time of Visit: 08:44 Interval History: [No acute events overnight , the patient denies any cardiac symptoms or anginal equivalents, 2Decho results LVEF is 60-65%. no wall motion or valvular a bnormalities. CCTA There is mixed calcified and noncalcified plaque in the proximal LAD with 80-90% stenosis. Left circumflex coronary artery: Normal caliber, nondominant and gives rise to a large OM branch. There is mixed calcified and noncalcified plaque in the mid LCx with 80-90% stenosis. CAD-RAD of 4 Physical Examination: GENERAL: No acute distress. HEAD: Normal with no signs of head trauma. EYES: PERRLA, EOMI, conjunctiva and sclera normal. ENT: Hearing grossly intact, normal oropharynx. NECK: Supple without JVD. There is no tenderness, lymphadenopathy, or masses. No thyromegaly. Normal carotid upstrokes without bruits. LUNGS: Clear breath sounds bilaterally. No wheezes, or rhonchi. HEART: Normal rate and rhythm. Normal S1 and S2 without murmurs, gallop or rub. VASC: Peripheral pulses +2 bilaterally. ABD: Bowel sounds normal, soft, nontender, no masses, no organomegaly. No audible bruits. : Not examined LYMPH: No lymphadenopathy noted. EXT: No clubbing, cyanosis or edema. SKIN: No rashes or lesions noted. NEURO: Awake, alert, and oriented x3. No focal sensory or strength deficits noted. Laboratory: [ ] Hematology Labs: Test 11/05/24 18:34 Range/Units White Blood Count 4.9 4.8-10.8 K/uL Red Blood Count 3.53 L 4.50-6.20 MIL/uL Hemoglobin 11.5 L 14.0-18.0 g/dL Hematocrit 34.4 L 42-54 % Mean Corpuscular Volume 97.5 79-99 fL Mean Corpuscular Hemoglobin 32.6 27.0-33.0 pg Mean Corpuscular Hemoglobin Concent 33.4 32.0-36.0 g/dL Red Cell Distribution Width 12.3 11.0-15.5 % Platelet Count 181 130-400 K/uL Mean Platelet Volume 10.2 7.5-10.5 fL Nucleated Red Blood Cells 0.0 0.0-0.19 % Chemistry Labs: Test 11/06/24 03:41 11/05/24 18:34 11/04/24 12:14 Range/Units Triglycerides Level 153 30-200 mg/dL Cholesterol Level 135 <200 mg/dL LDL Cholesterol 83 0-99 mg/dL HDL Cholesterol 29 29-71 mg/dL Vitamin B12 Level 173 L 193-986 pg/mL Sodium Level 137 136-145 mmol/L Potassium Level 3.9 3.5-5.1 mmol/L Chloride Level 104 101-111 mmol/L Carbon Dioxide Level 26 21-32 mmol/L Blood Urea Nitrogen 14 7-18 mg/dL Creatinine 1.0 0.5-1.3 mg/dL Glomerular Filtration Rate Calc 82 >90 mL/min Random Glucose 125 H 70-105 mg/dL Total Calcium 8.2 L 8.5-10.1 mg/dL Troponin I High Sensitivity 8 4-75 ng/L Diagnostics / Radiology: [Copy/Paste Echos/Imaging Report here] Impression and Plan: [Chest pain Hyperlipidemia CAD s/p PTCA to unknown vessel approximately 30 years ago Ex-smoker of 1 PPD with cessation 2 months ago Graves disease Chest pain Cardiac enzymes negative x5. EKG demonstrated normal sinus rhythm with heart rate of 67bpm, no acute ischemia noted. -2Decho results LVEF is 60-65%. no wall motion or valvular abnormalities. -Pending 2D Echocardiogram and bilateral carotid Doppler -CCTA There is mixed calcified and noncalcified plaque in the proximal LAD with 80-90% stenosis. Left circumflex coronary artery: Normal caliber, nondominant and gives rise to a large OM branch. There is mixed calcified and noncalcified plaque in the mid LCx with 80-90% stenosis. CAD-RAD of 4 -We had a long discusseion regarding the need for coronary angiogram all risks ( bleeding, bruising, , IA ) and goals were discussed , the patient verbalized understanding and agrees with the plan of care , we will plan to schedule for today -Continue ASA 81 mg daily atorvastatin 40 mg daily , lopressor 25 mg every 12 hrs -Defer any P2Y12 inhibitors in the case that the patient may require CABG Thank you for this ocnsult cardiology will continue to follow along. ] ATTESTATION BY PHYSICIAN I have seen and examined the patient, reviewed the above documentation, participated in medical decision making, made necessary modifications, and agree with the treatment plan as documented by my mid-level provider above. MD JUAN Caldwell JAMES R MD Nov 06, 2024 08:48
[2024-11-06 10:51] LABS: INR 0.97 (0.85-1.15)
--- NOTE | 2024-11-06 10:52 | NUR ---
TAMIKA BREWER met with pt at his request for an MPOA, pt assigned his daughter Laurie Brown [phone] as his MPOA. Paperwork signed, copy left in chart, and original given to pt.
[2024-11-06] MEDS ORDERED: IOHEXOL 350 MG/ML 100ML INFUS..BTL IV ONE (11:05)
[2024-11-06] MEDS ORDERED: LIDOCAINE HCL 400MG/20ML VIAL ONE (11:05)
[2024-11-06] MEDS ORDERED: NITROGLYCERIN 50MG VIAL ONE (11:06)
[2024-11-06] MEDS ORDERED: HEParin-NS 1,000 UNIT/500 ML 1,000 ML IV ONE (11:06)
[2024-11-06] MEDS ORDERED: VERAPAMIL HCL 2.5 MG/ML VIAL ONE (11:06)
[2024-11-06] MEDS ORDERED: MIDAZOLAM HCL 1 MG/ML 2ML VIAL ONE (11:35)
--- NOTE | 2024-11-06 12:21 | PRN ---
Cath Procedure Report CATH PROCEDURE REPORT CARDIAC CATHETERIZATION REPORT Date of Service: Nov 06, 2024 PROCEDURE: Left heart catheterization with selective right and left coronary angiography INDICATIONS: Chest pain, abnormal coronary CT angiography PRIMARY GRAIN DRIER: Gurvinder Jacobo MD RECORD LABEL INTERN: Boris Crowell DO DESCRIPTION OF PROCEDURE: PATIENT WAS PREPPED AND DRAPED IN STERILE FASHION. TIME-OUT PERFORMED. CONSCIOUS SEDATION WAS ADMINISTERED BY INDEPENDENT QUALIFIED MATE CHIEF RN UNDER MY DIRECT SUPERVISION AND THERE WERE NO COMPLICATIONS 2ND ANESTHESIA. USING ULTRASOUND GUIDANCE, RIGHT RADIAL ARTERY WAS ACCESSED ON THE 2ND ATTEMPT WITH PLACEMENT OF SIX [place] SHORT SHEATH. VASODILATOR COCKTAIL 2.5 MG OF VERAPAMIL AND 200 MCG OF NITROGLYCERIN WAS ADMINISTERED INTRA-ARTERIALLY. A JR4 SIX [place] CATHETER WAS USED TO CROSS AORTIC VALVE FOR LVEDP MEASUREMENT, PULLBACK ACROSS THE AORTIC VALVE AND SELECTIVE ENGAGEMENT WITH CONTRAST INJECTION ANGIOGRAPHY OF THE RIGHT CORONARY ARTERY MULTIPLE OBLIQUITIES. 50 UNITS/KG OF HEPARIN WAS GIVEN VIA PERIPHERAL IV. THE CATHETER WAS EXCHANGED OVER THE WIRE FOR A SIX [place]ORE[place] JL 3.5 CATHETER WHICH WAS USED TO SELECTIVELY ENGAGE LEFT CORONARY ARTERY AND MULTIPLE ANGIOGRAPHIC VIEWS WERE TAKEN. ALL CATHETERS AND WIRES WERE THEN REMOVED AND HEMOSTASIS ACHIEVED WITH THE USE OF VASCULAR BAND. THE PATIENT TOLERATED THE PROCEDURE WELL WITHOUT ANY COMPLICATIONS HOWEVER DID EXPERIENCE CHEST PAIN AND EKG CHANGES WITH T-WAVE INVERSIONS UPON ENGAGEMENT OF THE LEFT MAIN AND CONTRAST ADMINISTRATION, WHICH RESOLVED ALMOST IMMEDIATELY AFTER DISENGAGEMENT OF THE LEFT MAIN. FINDINGS: Left main: Short left main with 80-90% hazy eccentric stenosis throughout with 20-30 mm gradient upon engagement with a six Samoan catheter representing less than 2 mm caliber orifice with associated EKG changes and chest pain with engagement and contrast injection. Left anterior descending: Proximal 30-40% stenosis otherwise angiographically free of disease Left circumflex: Proximal 30% stenosis, large caliber OM1, OM2, inferior branch OM2 large caliber and angiographically normal Right coronary artery: Right dominant coronary system. Calcified ostial RCA with 89% stenosis with a 70 mm gradient upon engagement with a six Samoan catheter. Proximal focal 80% stenosis followed by mid 30-40% stenosis otherwise the distal RCA, posterolateral extension and RPDA is angiographically free of disease. Opening aortic pressure 93/47 with a mean of 62 mm of mercury Left ventricle 144 mm of mercury LVEDP 50 mm of mercury. No gradient on pullback across the aortic valve. CONTRAST: 30 ML. SUMMARY: 1. Critical left main disease 2. Severe ostial RCA stenosis BORIS CROWELL DO Nov 06, 2024 12:21
[2024-11-06] MEDS: 0.9%NACL 1000ML 1,000 ML IV SCH (12:30)
--- NOTE | 2024-11-06 14:57 | PN ---
[facility] PROGRESS NOTE Date of Service: Nov 06, 2024 Time of Service: 14:43 SUBJECTIVE: Mr. Valadez a 68-year-old male that was seen and examined today on 11/03/2024. Patient reports that he came to the emergency department with a chief complaint of chest pain. Onset was two or three years ago. He had similar repeated episodes months back which resolved on its own. Today's episode began at 11:00 a.m. Location is midsternal. Duration is on and off. Character is described as "neck someone is pushing a knuckle into the center of my chest. The chest pain did not radiate to shoulder, neck or jaw. "There was no alleviating factors. There was no aggravating factors. Patient reports that symptoms seemingly resolve on their own. He denies nausea, vomiting, fever and any other associated symptoms. Patient denies any associated shortness of breath. Patient has a past medical history of hyperlipidemia and Graves disease. He has been taking atorvastatin and Synthroid as his home medications. Today in the emergency department WBC 5.8, hemoglobin 12.9 platelets 197. His chemistries were within normal limits sodium 140, potassium 4.2, blood urea nitrogen 15 and creatinine 1.0. His electrocardiogram showed normal sinus rhythm. Patient will be admitted for further evaluation and related recommendations in Med-Surg. 11/04/24 Patient was evaluated at the bedside in ED-09. He reports that he is having chest pain that comes and goes. The patient reports having 2 episodes of chest pain in the last hour. He denies associated symptoms such as shortness of breath, palpitation, diaphoresis, dizziness, nausea or syncope. He does however complain of muscle pain in his lower limbs described as a dull aching discomfort that begins in the hip region that is worsened with movement. The patient complains of tingling and numbness in his feet bilaterally. No fever, chills or recent infection reported. Appetite and oral intake are normal. No other acute complaints at this time. On physical exam, a systolic murmur was auscultated over the aortic area. Bilateral carotid bruits are present. Lower extremities are cool to the touch with diminished pedal pulses. Patient reports bilateral leg muscle pain with exertion (suggestive of claudication), and chronic numbness and tingling in the feet. Patient reports recently quitting smoking tobacco for 2 months. He had a 1 pack a day smoking history since 1968. [facility] and denies following with a currency exchange specialist. The patient says his chest pain has been ongoing for the past 3 years, and that it gets worse with exertion and at rest. 11/05/24 Patient was evaluated at the bedside room 231. He was hemodynamically stable. Hi symptoms has improved significantly. He doesn't complain of chest pain, shortness of breath and any other associated symptoms. Echocardiogram was done which revealed aortic valve: trileaflet, mildly sclerotic, and opens well. Carotid artery ultrasound showed Bilateral ICA/CCA ratio more than 4.0 suggesting more than 70% stenosis. 11/06/24 Patient was evaluated at the bedside room 231. He was hemodynamically stable. Hi symptoms has improved significantly. He doesn't complain of chest pain, shortness of breath and any other associated symptoms. In coronary CT angiography there is mixed calcified and noncalcified plaque in the proximal LAD with 80-90% stenosis. Left circumflex coronary artery: Normal caliber, nondominant and gives rise to a large OM branch. There is mixed calcified and noncalcified plaque in the mid LCx with 80-90% stenosis. CAD-RAD of 4B. Left heart catheterization with selective right and left coronary angiography was performed which showed critical left main disease. REVIEW OF SYSTEMS CONSTITUTIONAL: No fever, chills, or night sweats. NEUROLOGICAL: Denies headache, sensory and motor deficit. CARDIOVASCULAR: Denies any exertional angina, dyspnea on exertion, palpitations. PULMONARY: Denies any shortness of breath, cough, phlegm/sputum, hemoptysis, pleuritic chest pain. GASTROINTESTINAL: Denies nausea, vomiting. Denies pain, tenderness around the abdomen. GENITOURINARY: Denies frequency, urgency, nocturia, hematuria or incontinence. PHYSICAL EXAM GENERAL APPEARANCE: The patient is alert, awake and oriented and bedbound. NEUROLOGICAL: No sensory and motor deficits. CHEST: Normal chest expansion. LUNGS: Normal vesicular breath sound. Absence of any rales, rhonchi or any wheezing. CARDIOVASCULAR: Systolic murmur heard over aortic area. Bilateral carotid bruits heard. No JVD. No peripheral edema. ABDOMEN: Soft nontender, and nondistended. There is no rebound, voluntary guarding, or rigidity. No abdominal bruit heard. GENITOURINARY: No suprapubic tenderness. No costovertebral angle tenderness. EXTREMITIES: Complains of muscle pain in lower limbs while walking. Has intermittent claudication. Limbs are non-edematous. Bilateral pedal pulses diminished. Vital Signs (last 8hr) Date Time Temp Pulse Resp B/P (MAP) Pulse Ox O2 Delivery O2 Flow Rate FiO2 11/06/24 08:00 97.7 59 20 152/61 99 Room Air LABS: Laboratory: Test 11/06/24 10:31 11/06/24 03:41 11/05/24 18:34 Range/Units Prothrombin Time 10.3 9.6-11.6 SEC Prothromb Time International Ratio 0.97 0.85-1.15 Activated Partial Thromboplast Time 28.1 26.3-35.5 SEC Triglycerides Level 153 30-200 mg/dL Cholesterol Level 135 <200 mg/dL LDL Cholesterol 83 0-99 mg/dL HDL Cholesterol 29 29-71 mg/dL Vitamin B12 Level 173 L 193-986 pg/mL White Blood Count 4.9 4.8-10.8 K/uL Red Blood Count 3.53 L 4.50-6.20 MIL/uL Hemoglobin 11.5 L 14.0-18.0 g/dL Hematocrit 34.4 L 42-54 % Mean Corpuscular Volume 97.5 79-99 fL Mean Corpuscular Hemoglobin 32.6 27.0-33.0 pg Mean Corpuscular Hemoglobin Concent 33.4 32.0-36.0 g/dL Red Cell Distribution Width 12.3 11.0-15.5 % Platelet Count 181 130-400 K/uL Mean Platelet Volume 10.2 7.5-10.5 fL Nucleated Red Blood Cells 0.0 0.0-0.19 % Sodium Level 137 136-145 mmol/L Potassium Level 3.9 3.5-5.1 mmol/L Chloride Level 104 101-111 mmol/L Carbon Dioxide Level 26 21-32 mmol/L Blood Urea Nitrogen 14 7-18 mg/dL Creatinine 1.0 0.5-1.3 mg/dL Glomerular Filtration Rate Calc 82 >90 mL/min Random Glucose 125 H 70-105 mg/dL Total Calcium 8.2 L 8.5-10.1 mg/dL Current Medications Medications (Trade) Dose Ordered Sig/Brittany Route PRN Reason Start Time Stop Time Status Last Admin Dose Admin Acetaminophen (TYLenol 325MG TAB) 650 mg Q6H PRN PO TEMPERATURE GREATER THAN 101.5 11/03/24 21:00 12/03/24 20:59 11/06/24 04:08 650 MG Aspirin (Aspirin 81mg Ec Tab) 81 mg DAILY PO 11/04/24 09:00 12/04/24 08:59 11/05/24 09:06 81 MG Atorvastatin Calcium (LIPItor 40MG) 40 mg HS PO 11/03/24 21:00 11/03/24 20:40 DC Atorvastatin Calcium (LIPItor 40MG) 40 mg HS PO 11/03/24 21:00 12/03/24 20:59 11/05/24 20:10 40 MG Enoxaparin Sodium (Lovenox) 40 mg DAILY SQ 11/04/24 09:00 12/04/24 08:59 11/05/24 09:06 40 MG Famotidine (Pepcid 20mg Tab) 20 mg DAILY PO 11/04/24 09:00 12/04/24 08:59 11/05/24 09:06 20 MG Hydralazine HCl (APRESOLine 20MG INJ) 10 mg Q6H PRN IV For:SBP above 160;DBP above 90 11/03/24 21:00 12/03/24 20:59 Lactulose (Constulose 20gm/ 30ml Udcup) 20 gm BID PRN PO CONSTIPATION 11/03/24 21:00 12/03/24 20:59 Metoprolol Tartrate (loprESSOR) 50 mg BID PO 11/04/24 21:00 12/04/24 20:59 11/04/24 20:29 50 MG Morphine Sulfate (morPHINE 4MG SYG) 2 mg Q4H PRN IVP SEVERE PAIN (7-10) 11/03/24 21:00 11/10/24 20:59 11/04/24 15:49 2 MG Nitroglycerin (Nitroglycerin 1gm Oint) 0.5 inch Q8H TD 11/03/24 21:00 12/03/24 20:59 11/05/24 20:11 0.5 INCH Ondansetron HCl (zoFRAN 4MG INJ) 4 mg Q6H PRN IV NAUSEA/VOMITING 11/03/24 21:00 12/03/24 20:59 Sodium Chloride 1,000 ml @ 100 mls/hr Q10H IV 11/06/24 12:30 11/06/24 15:29 Vitamin B Complex (Vitamin B-12) 1,000 mcg DAILY IM 11/07/24 09:00 11/13/24 08:59 DIAGNOSTICS / RADIOLOGY: [ ] ASSESSMENT: Coronary artery disease, suspected POA Hyperlipidemia, POA Grave's disease, POA Peripheral artery disease, suspected Carotid artery stenosis PLAN: Coronary artery disease, suspected * Administer aspirin 325 mg p.o. now and then continue aspirin 81 mg p.o. daily * Troponin every 6 hours, serial troponin levels are 10-21-11. * Supplemental oxygen as needed to maintain SpO2 greater than 94% * Monitor for recurrence of chest pain, arrhythmias, or hemodynamic changes * Electrocardiogram was done which is normal. * A 2D Echo has been ordered due to patients history of chest pain on exertion and rest. * A cardiology consult has been placed for evaluation of CAD in patient with exertional chest pain and vascular disease. 11/04/24 * Echocardiogram was done which revealed aortic valve: trileaflet, mildly sclerotic, and opens well. * Pending Coronary CTA reports. * Vitamin B12 has been ordered to rule out peripheral neuropathy. * Lipid panels has been ordered to assess Cardiovascular risks. 11/05/24 * In coronary CT angiography there is mixed calcified and noncalcified plaque in the proximal LAD with 80-90% stenosis. Left circumflex coronary artery: Normal caliber, nondominant and gives rise to a large OM branch. There is mixed calcified and noncalcified plaque in the mid LCx with 80-90% stenosis. * CAD-RAD of 4B. * Left heart catheterization with selective right and left coronary angiography was performed which showed critical left main disease. Severe ostial RCA stenosis. 11/06/24 Peripheral vascular disease, Suspected * Patient has history of exertional bilateral leg pain * Diminished peripheral pulses * A SERA has been ordered due to the patients complaint of bilateral lower extremity claudication, and numbness/tingling in bilateral lower extremities. * Clear aspirin 81 mg daily and statin 40mg * Encouraged supervised exercise therapy for claudication * Counseled on continued smoking cessation 11/04/24 Peripheral Neuropathy * Complained of numbness and tingling in his limbs. * Vitamin B12 level was measured which showed 173L. * Patient has been started on vitamin B12 supplement 1000 mcg.11/06/24 Carotid artery stenosis * Presence of bilateral carotid bruit on exam, suspicion for significant stenosis * Carotid Duplex ultrasound has been done, awaiting reports * Risk factor modification: Smoking cessation, BP control, glycemic control. 11/04/24 * Carotid artery ultrasound showed Bilateral ICA/CCA ratio more than 4.0 suggesting more than 70% stenosis. 11/05/24 Hyperlipidemia * Continue home statin therapy atorvastatin 40 mg * Reinforce low-cholesterol, heart healthy diet (limit saturated fats, increase fiber, fruits and vegetables) * Encouraged regular physical activity as tolerated * Monitor lipid panel * Outpatient follow up with PCP/Cardiology for long-term lipid management and cardiovascular risks reduction Supportive measures * Start patient on GI prophylaxis * DVT prophylaxis * Monitor morning labs CBC and BMP daily ATTESTATION BY PHYSICIAN I have seen and examined the patient. I reviewed the documentation, medical decision making, and treatment plan as noted by the resident provider above. I agree with the findings and plan of care. Isiah Mejia MD [facility] MD Nov 06, 2024 14:56
[2024-11-06] MEDS ORDERED: LEVO125C5 PO (17:36)
[2024-11-06] MEDS ORDERED: ATOR10 PO (17:37)
--- NOTE | 2024-11-06 18:39 | CONS ---
PREOPERATIVE CONSULTATION REFERRING PHYSICIAN: Dr. Crowell CONSULTING PHYSICIAN: Dr. Glynn Meza REASON FOR CONSULTATION: Coronary artery disease, left main type. HISTORY: This is a 68-year-old gentleman, who presents with recurrent chest pain and shortness of breath. Cardiac catheterization demonstrates a very tight left main lesion and the patient is referred for surgical revascularization. IMPRESSION AND PLAN: I have had the opportunity to review the films and discuss the case with Dr. Crowell. We both agreed that surgery is indicated and we have recommended. The patient understands the indications of the procedure as well as the potential complications of the surgery, included but not limited to postoperative bleeding, infection, stroke and/or . He understands there is an associated morbidity and mortality of the procedure as this relates to his own comorbidities and is depicting the thoracic surgeon's clinical current database and the manner of morbidity/mortality and wishes to proceed with surgery. Plan for surgery tomorrow. TID: [id number] RECEIPT: [id number]
[2024-11-07] VITALS (25 sets, daily range): BP systolic 87–159; BP diastolic 54–96; PULSE 57–104; RESP 11–24; TEMP 97.5–98.2; O2SAT 94–96
[2024-11-07 03:49] LABS: NUCLEATED RED BLOOD CELLS 0.0 % (0.0-0.19); PLATELET COUNT (AUTO) 183.0 K/uL (130-400); RED BLOOD CELL COUNT(AUTO) 3.53 MIL/uL (4.50-6.20); RED CELL DISTRIBUTION WIDTH 12.2 % (11.0-15.5); WHITE BLOOD COUNT (AUTO) 5.3 K/uL (4.8-10.8)
[2024-11-07 03:59] LABS: INR 1.0 (0.85-1.15)
[2024-11-07 04:18] LABS: CREATININE 1.0 mg/dL (0.5-1.3); GLOMERULAR FILTR. RATE CALC 82.0 mL/min (>90); GLUCOSE,RANDOM 89.0 mg/dL (70-105); SODIUM SERUM 137.0 mmol/L (136-145); UREA NITROGEN, BLOOD 15.0 mg/dL (7-18)
[2024-11-07 04:22] LABS: ASPARTATE AMINOTRANSFERASE 18.0 U/L (10-37); LDL DIRECT 81.0 mg/dL (0-99); TOTAL PROTEIN, SERUM 6.2 g/dL (6.0-8.3)
--- NOTE | 2024-11-07 05:49 | EKG ---
[facility] Test Date: 2024-11-07 Test Time: 05:49:51 Pat Name: CLARE KERR Department: [facility] Room: 213 Gender: M Boiler Helper: [phone] : 1955 Requested By: JLUIS MENDOZA Order Number: [id number] Reading MD: Dev Fang Measurements Intervals [place] Rate: 55 P: 53 OK: 182 QRS: 20 QRSD: 82 T: 46 QT: 428 QTc: 409 Interpretive Statements Sinus bradycardia Electronically Signed On 11-09-2024 12:47:56 CDT by Dev Fang Please click the below link to view image of tracing.
--- NOTE | 2024-11-07 07:24 | HMCIMG ---
EXAM: Chest radiograph 1 view HISTORY: Preop COMPARISON: 11/03/2024 FINDINGS: No pulmonary consolidations. No pleural effusion or pneumothorax. Normal cardiomediastinal silhouette and pulmonary vasculature. Degenerative changes. IMPRESSION: No acute cardiopulmonary disease. /[place]
[2024-11-07] MEDS: CYANOCOBALAMIN (VITAMIN B-12) 1000 MCG/ML 1ML VIAL IM SCH (09:00)
--- NOTE | 2024-11-07 09:58 | PN ---
[facility] PROGRESS NOTE Date of Service: Nov 07, 2024 Time of Service: 09:48 SUBJECTIVE: Mr. Valadez a 68-year-old male that was seen and examined today on 11/03/2024. Patient reports that he came to the emergency department with a chief complaint of chest pain. Onset was two or three years ago. He had similar repeated episodes months back which resolved on its own. Today's episode began at 11:00 a.m. Location is midsternal. Duration is on and off. Character is described as "neck someone is pushing a knuckle into the center of my chest. The chest pain did not radiate to shoulder, neck or jaw. "There was no alleviating factors. There was no aggravating factors. Patient reports that symptoms seemingly resolve on their own. He denies nausea, vomiting, fever and any other associated symptoms. Patient denies any associated shortness of breath. Patient has a past medical history of hyperlipidemia and Graves disease. He has been taking atorvastatin and Synthroid as his home medications. Today in the emergency department WBC 5.8, hemoglobin 12.9 platelets 197. His chemistries were within normal limits sodium 140, potassium 4.2, blood urea nitrogen 15 and creatinine 1.0. His electrocardiogram showed normal sinus rhythm. Patient will be admitted for further evaluation and related recommendations in Med-Surg. 11/04/24 Patient was evaluated at the bedside in ED-09. He reports that he is having chest pain that comes and goes. The patient reports having 2 episodes of chest pain in the last hour. He denies associated symptoms such as shortness of breath, palpitation, diaphoresis, dizziness, nausea or syncope. He does however complain of muscle pain in his lower limbs described as a dull aching discomfort that begins in the hip region that is worsened with movement. The patient complains of tingling and numbness in his feet bilaterally. No fever, chills or recent infection reported. Appetite and oral intake are normal. No other acute complaints at this time. On physical exam, a systolic murmur was auscultated over the aortic area. Bilateral carotid bruits are present. Lower extremities are cool to the touch with diminished pedal pulses. Patient reports bilateral leg muscle pain with exertion (suggestive of claudication), and chronic numbness and tingling in the feet. Patient reports recently quitting smoking tobacco for 2 months. He had a 1 pack a day smoking history since 1968. [facility] and denies following with a crust sorter. The patient says his chest pain has been ongoing for the past 3 years, and that it gets worse with exertion and at rest. 11/05/24 Patient was evaluated at the bedside room 231. He was hemodynamically stable. Hi symptoms has improved significantly. He doesn't complain of chest pain, shortness of breath and any other associated symptoms. Echocardiogram was done which revealed aortic valve: trileaflet, mildly sclerotic, and opens well. Carotid artery ultrasound showed Bilateral ICA/CCA ratio more than 4.0 suggesting more than 70% stenosis. 11/06/24 Patient was evaluated at the bedside room 231. He was hemodynamically stable. Hi symptoms has improved significantly. He doesn't complain of chest pain, shortness of breath and any other associated symptoms. In coronary CT angiography there is mixed calcified and noncalcified plaque in the proximal LAD with 80-90% stenosis. Left circumflex coronary artery: Normal caliber, nondominant and gives rise to a large OM branch. There is mixed calcified and noncalcified plaque in the mid LCx with 80-90% stenosis. CAD-RAD of 4B. Left heart catheterization with selective right and left coronary angiography was performed which showed critical left main disease. 11/07/24 Patient was evaluated at the bedside room 231. He was hemodynamically stable. He doesn't complain of chest pain, shortness of breath and any other associated symptoms. He complaints of headache 8/10 of intensity after the administration of Nitroglycerin. Cardiac catheterization demonstrated a very tight left main lesion and the patient is referred for surgical revascularization. As per Dr Mendoza: Surgery is planned for today. REVIEW OF SYSTEMS CONSTITUTIONAL: No fever, chills, or night sweats. NEUROLOGICAL: Headache 8/10 intensity, no sensory and motor deficit. CARDIOVASCULAR: Denies any exertional angina, dyspnea on exertion, palpitations. PULMONARY: Denies any shortness of breath, cough, phlegm/sputum, hemoptysis, pleuritic chest pain. GASTROINTESTINAL: Denies nausea, vomiting. Denies pain, tenderness around the abdomen. GENITOURINARY: Denies frequency, urgency, nocturia, hematuria or incontinence. PHYSICAL EXAM GENERAL APPEARANCE: The patient is alert, awake and oriented and bedbound. NEUROLOGICAL: No sensory and motor deficits. CHEST: Normal chest expansion. LUNGS: Normal vesicular breath sound. Absence of any rales, rhonchi or any wheezing. CARDIOVASCULAR: Systolic murmur heard over aortic area. Bilateral carotid bruits heard. No JVD. No peripheral edema. ABDOMEN: Soft nontender, and nondistended. There is no rebound, voluntary guarding, or rigidity. No abdominal bruit heard. GENITOURINARY: No suprapubic tenderness. No costovertebral angle tenderness. EXTREMITIES: Complains of muscle pain in lower limbs while walking. Has intermittent claudication. Limbs are non-edematous. Bilateral pedal pulses diminished. Vital Signs (last 8hr) Date Time Temp Pulse Resp B/P (MAP) Pulse Ox O2 Delivery O2 Flow Rate FiO2 11/07/24 07:39 97.7 67 18 135/68 97 Room Air 11/07/24 03:27 98.1 68 18 105/60 95 Room Air LABS: Laboratory: Test 11/07/24 03:35 11/06/24 16:46 11/06/24 10:31 11/06/24 03:41 Range/Units White Blood Count 5.3 4.8-10.8 K/uL Red Blood Count 3.53 L 4.50-6.20 MIL/uL Hemoglobin 11.5 L 14.0-18.0 g/dL Hematocrit 34.2 L 42-54 % Mean Corpuscular Volume 96.9 79-99 fL Mean Corpuscular Hemoglobin 32.6 27.0-33.0 pg Mean Corpuscular Hemoglobin Concent 33.6 32.0-36.0 g/dL Red Cell Distribution Width 12.2 11.0-15.5 % Platelet Count 183 130-400 K/uL Mean Platelet Volume 10.3 7.5-10.5 fL Nucleated Red Blood Cells 0.0 0.0-0.19 % Prothrombin Time 10.6 9.6-11.6 SEC Prothromb Time International Ratio 1.00 0.85-1.15 Activated Partial Thromboplast Time 28.1 26.3-35.5 SEC Sodium Level 137 136-145 mmol/L Potassium Level 3.8 3.5-5.1 mmol/L Chloride Level 104 101-111 mmol/L Carbon Dioxide Level 26 21-32 mmol/L Blood Urea Nitrogen 15 7-18 mg/dL Creatinine 1.0 0.5-1.3 mg/dL Glomerular Filtration Rate Calc 82 >90 mL/min Random Glucose 89 70-105 mg/dL Total Calcium 8.7 8.5-10.1 mg/dL Total Bilirubin 0.4 0.2-1.0 mg/dL Aspartate Amino Transf (AST/SGOT) 18 10-37 U/L Alanine Aminotransferase (ALT/SGPT) 22 12-78 U/L Alkaline Phosphatase 66 50-136 U/L Total Protein 6.2 6.0-8.3 g/dL Albumin 2.9 L 3.5-5.0 g/dL Triglycerides Level 144 30-200 mg/dL Cholesterol Level 139 <200 mg/dL LDL Cholesterol 81 0-99 mg/dL HDL Cholesterol 30 29-71 mg/dL Whole Blood Glucose 81 70-110 MG/DL Hemoglobin A1c 5.7 4.0-6.0 % Estimated Average Glucose (eAG) 117 70-126 mg/dL Vitamin B12 Level 173 L 193-986 pg/mL Current Medications Medications (Trade) Dose Ordered Sig/Brittany Route PRN Reason Start Time Stop Time Status Last Admin Dose Admin Acetaminophen (TYLenol 325MG TAB) 650 mg Q6H PRN PO TEMPERATURE GREATER THAN 101.5 11/03/24 21:00 12/03/24 20:59 11/06/24 23:00 650 MG Aspirin (Aspirin 81mg Ec Tab) 81 mg DAILY PO 11/04/24 09:00 12/04/24 08:59 11/06/24 09:00 81 MG Atorvastatin Calcium (LIPItor 40MG) 40 mg HS PO 11/03/24 21:00 11/03/24 20:40 DC Atorvastatin Calcium (LIPItor 40MG) 40 mg HS PO 11/03/24 21:00 12/03/24 20:59 11/06/24 20:32 40 MG Cefazolin Sodium (Ancef) 2 gm ONCALL IVPB 11/06/24 22:00 11/08/24 21:59 Enoxaparin Sodium (Lovenox) 40 mg DAILY SQ 11/04/24 09:00 12/04/24 08:59 11/05/24 09:06 40 MG Famotidine (Pepcid 20mg Tab) 20 mg DAILY PO 11/04/24 09:00 12/04/24 08:59 11/05/24 09:06 20 MG Hydralazine HCl (APRESOLine 20MG INJ) 10 mg Q6H PRN IV For:SBP above 160;DBP above 90 11/03/24 21:00 12/03/24 20:59 Lactulose (Constulose 20gm/ 30ml Udcup) 20 gm BID PRN PO CONSTIPATION 11/03/24 21:00 12/03/24 20:59 Metoprolol Tartrate (loprESSOR) 50 mg BID PO 11/04/24 21:00 12/04/24 20:59 11/06/24 20:38 50 MG Morphine Sulfate (morPHINE 4MG SYG) 2 mg Q4H PRN IVP SEVERE PAIN (7-10) 11/03/24 21:00 11/10/24 20:59 11/04/24 15:49 2 MG Nitroglycerin (Nitroglycerin 1gm Oint) 0.5 inch Q8H TD 11/03/24 21:00 12/03/24 20:59 11/07/24 05:46 0.5 INCH Ondansetron HCl (zoFRAN 4MG INJ) 4 mg Q6H PRN IV NAUSEA/VOMITING 11/03/24 21:00 12/03/24 20:59 Sodium Chloride 1,000 ml @ 100 mls/hr Q10H IV 11/06/24 12:30 11/06/24 15:29 DC Vitamin B Complex (Vitamin B-12) 1,000 mcg DAILY IM 11/07/24 09:00 11/13/24 08:59 DIAGNOSTICS / RADIOLOGY: [place] [address] IMAGING REPORT Signed PATIENT: CLARE VALADEZ MR#: [id number] : 1955 SEX: M AGE: 68 LOCATION: 2AH ORDER 2300 STATUS: ADM IN REPORT#: [id number] SERVICE 0600 REASON: preop CABG ORDERING PHYSICIAN: JLUIS MENDOZA MD PROCEDURE: CXR1VW - CHEST 1VW EXAM: Chest radiograph 1 view HISTORY: Preop COMPARISON: 11/03/2024 FINDINGS: No pulmonary consolidations. No pleural effusion or pneumothorax. Normal cardiomediastinal silhouette and pulmonary vasculature. Degenerative changes. IMPRESSION: No acute cardiopulmonary disease. /[place] DICTATED BY: SUKH ALTAMIRANO MD DATE: 11/07/24822 ELECTRONICALLY SIGNED BY: SUKH ALTAMIRANO MD DATE: 11/07/24822 ASSESSMENT: Coronary artery disease, suspected POA Hyperlipidemia, POA Grave's disease, POA Peripheral artery disease, suspected Carotid artery stenosis PLAN: Coronary artery disease, suspected * Administer aspirin 325 mg p.o. now and then continue aspirin 81 mg p.o. daily * Troponin every 6 hours, serial troponin levels are 9-9-12-11. * Supplemental oxygen as needed to maintain SpO2 greater than 94% * Monitor for recurrence of chest pain, arrhythmias, or hemodynamic changes * Electrocardiogram was done which is normal. * A 2D Echo has been ordered due to patients history of chest pain on exertion and rest. * A cardiology consult has been placed for evaluation of CAD in patient with exertional chest pain and vascular disease. 11/04/24 * Echocardiogram was done which revealed aortic valve: trileaflet, mildly sclerotic, and opens well. * Pending Coronary CTA reports. * Lipid panels has been ordered to assess Cardiovascular risks. 11/05/24 * In coronary CT angiography there is mixed calcified and noncalcified plaque in the proximal LAD with 80-90% stenosis. Left circumflex coronary artery: Normal caliber, nondominant and gives rise to a large OM branch. There is mixed calcified and noncalcified plaque in the mid LCx with 80-90% stenosis. * CAD-RAD of 4B. * Left heart catheterization with selective right and left coronary angiography was performed which showed critical left main disease. Severe ostial RCA stenosis. 11/06/24 * He complaints of headache 8/10 of intensity after the administration of Nitroglycerin. Tylenol has been administered. Closely monitoring the patient. * Cardiac catheterization demonstrated a very tight left main lesion and the patient is referred for surgical revascularization. As per Dr Mendoza: Surgery is planned for today.11/07/24 Peripheral vascular disease, Suspected * Patient has history of exertional bilateral leg pain * Diminished peripheral pulses * A SERA has been ordered due to the patients complaint of bilateral lower extremity claudication, and numbness/tingling in bilateral lower extremities. * Clear aspirin 81 mg daily and statin 40mg * Encouraged supervised exercise therapy for claudication * Counseled on continued smoking cessation 11/04/24 Peripheral Neuropathy * Vitamin B12 has been ordered to rule out peripheral neuropathy.11/05/24 * Complained of numbness and tingling in his limbs. * Vitamin B12 level was measured which showed 173L. * Patient has been started on vitamin B12 supplement 1000 mcg.11/06/24 Carotid artery stenosis * Presence of bilateral carotid bruit on exam, suspicion for significant stenosis * Carotid Duplex ultrasound has been done, awaiting reports * Risk factor modification: Smoking cessation, BP control, glycemic control. 11/04/24 * Carotid artery ultrasound showed Bilateral ICA/CCA ratio more than 4.0 suggesting more than 70% stenosis. 11/05/24 Hyperlipidemia * Continue home statin therapy atorvastatin 40 mg * Reinforce low-cholesterol, heart healthy diet (limit saturated fats, increase fiber, fruits and vegetables) * Encouraged regular physical activity as tolerated * Monitor lipid panel * Outpatient follow up with PCP/Cardiology for long-term lipid management and cardiovascular risks reduction Supportive measures * Start patient on GI prophylaxis * DVT prophylaxis * Monitor morning labs CBC and BMP daily ATTESTATION BY PHYSICIAN I have seen and examined the patient. I reviewed the documentation, medical decision making, and treatment plan as noted by the resident provider above. I agree with the findings and plan of care. Isiah Mejia MD [facility] MD Nov 07, 2024 09:57
[2024-11-07] MEDS ORDERED: NOREPINEPHRIN 8MG/250ML NS 250 ML IV PRN (11:00)
[2024-11-07] MEDS ORDERED: NITROGLYCERIN 50MG/D5W 250ML 1 BOT ONE (11:25)
--- NOTE | 2024-11-07 12:01 | PN ---
[facility] CARDIOLOGY PROGRESS NOTE Date Patient Seen: Nov 07, 2024 Time of Visit: 12:00 Interval History: [No acute events overnight , the patient is pending CABG today at noon Physical Examination: GENERAL: No acute distress. HEAD: Normal with no signs of head trauma. EYES: PERRLA, EOMI, conjunctiva and sclera normal. ENT: Hearing grossly intact, normal oropharynx. NECK: Supple without JVD. There is no tenderness, lymphadenopathy, or masses. No thyromegaly. Normal carotid upstrokes without bruits. LUNGS: Clear breath sounds bilaterally. No wheezes, or rhonchi. HEART: Normal rate and rhythm. Normal S1 and S2 without murmurs, gallop or rub. VASC: Peripheral pulses +2 bilaterally. ABD: Bowel sounds normal, soft, nontender, no masses, no organomegaly. No audible bruits. : Not examined LYMPH: No lymphadenopathy noted. EXT: No clubbing, cyanosis or edema. SKIN: No rashes or lesions noted. NEURO: Awake, alert, and oriented x3. No focal sensory or strength deficits n oted. Laboratory: [ ] Hematology Labs: Test 11/07/24 03:35 Range/Units White Blood Count 5.3 4.8-10.8 K/uL Red Blood Count 3.53 L 4.50-6.20 MIL/uL Hemoglobin 11.5 L 14.0-18.0 g/dL Hematocrit 34.2 L 42-54 % Mean Corpuscular Volume 96.9 79-99 fL Mean Corpuscular Hemoglobin 32.6 27.0-33.0 pg Mean Corpuscular Hemoglobin Concent 33.6 32.0-36.0 g/dL Red Cell Distribution Width 12.2 11.0-15.5 % Platelet Count 183 130-400 K/uL Mean Platelet Volume 10.3 7.5-10.5 fL Nucleated Red Blood Cells 0.0 0.0-0.19 % Chemistry Labs: Test 11/07/24 03:35 11/06/24 16:46 11/06/24 10:31 11/06/24 03:41 Range/Units Sodium Level 137 136-145 mmol/L Potassium Level 3.8 3.5-5.1 mmol/L Chloride Level 104 101-111 mmol/L Carbon Dioxide Level 26 21-32 mmol/L Blood Urea Nitrogen 15 7-18 mg/dL Creatinine 1.0 0.5-1.3 mg/dL Glomerular Filtration Rate Calc 82 >90 mL/min Random Glucose 89 70-105 mg/dL Total Calcium 8.7 8.5-10.1 mg/dL Total Bilirubin 0.4 0.2-1.0 mg/dL Aspartate Amino Transf (AST/SGOT) 18 10-37 U/L Alanine Aminotransferase (ALT/SGPT) 22 12-78 U/L Alkaline Phosphatase 66 50-136 U/L Total Protein 6.2 6.0-8.3 g/dL Albumin 2.9 L 3.5-5.0 g/dL Triglycerides Level 144 30-200 mg/dL Cholesterol Level 139 <200 mg/dL LDL Cholesterol 81 0-99 mg/dL HDL Cholesterol 30 29-71 mg/dL Whole Blood Glucose 81 70-110 MG/DL Hemoglobin A1c 5.7 4.0-6.0 % Estimated Average Glucose (eAG) 117 70-126 mg/dL Vitamin B12 Level 173 L 193-986 pg/mL Coagulation Labs: Test 11/07/24 03:35 Range/Units Prothrombin Time 10.6 9.6-11.6 SEC Prothromb Time International Ratio 1.00 0.85-1.15 Activated Partial Thromboplast Time 28.1 26.3-35.5 SEC Diagnostics / Radiology: [Copy/Paste Echos/Imaging Report here] Impression and Plan: [Chest pain Hyperlipidemia CAD s/p PTCA to unknown vessel approximately 30 years ago Ex-smoker of 1 PPD with cessation 2 months ago Graves disease Chest pain Cardiac enzymes negative x5. EKG demonstrated normal sinus rhythm with heart rate of 67bpm, no acute ischemia noted. -2Decho results LVEF is 60-65%. no wall motion or valvular abnormalities. -Pending 2D Echocardiogram and bilateral carotid Doppler -CCTA There is mixed calcified and noncalcified plaque in the proximal LAD with 80-90% stenosis. Left circumflex coronary artery: Normal caliber, nondominant an d gives rise to a large OM branch. There is mixed calcified and noncalcified plaque in the mid LCx with 80-90% stenosis. CAD-RAD of 4 -LHC with multivessel CAD including left main -Continue ASA 81 mg daily atorvastatin 40 mg daily , lopressor 25 mg every 12 hrs -Defer any P2Y12 inhibitors as patient is undergoing CABG today Thank you for this consult cardiology will continue to follow along. ] YESICA MARTINEZ MD Nov 07, 2024 12:01
[2024-11-07] MEDS ORDERED: DEXTROSE 50%-WATER 50 ML DISP.SYRIN IV PRN (14:00)
[2024-11-07] MEDS ORDERED: GLUCAGON 1MG KIT 1 MG ML IM PRN (14:00)
[2024-11-07] MEDS ORDERED: MAGNESIUM HYDROXIDE 30 ML/UDCUP PO PRN (14:00)
[2024-11-07] MEDS ORDERED: NITROGLYCERIN 50MG/D5W 250ML 250 BOT IV SCH (14:00)
[2024-11-07] MEDS ORDERED: PROTamine SULFate 10 MG/ML 25ML VIAL IV ONE (14:25)
[2024-11-07] MEDS ORDERED: LIDOCAINE PF 100MG/5ML (2%) SYRINGE 5ML ONE (14:25)
--- NOTE | 2024-11-07 14:25 | NUR ---
pt was taken to OR via bed and accompanied by Jones NARAYAN and a staff member. pt at present in no apparent distress and had been given pre op preparation from Jones from OR. pt appeared to be able to verbalize understanding of procedure.
[2024-11-07] MEDS ORDERED: MIDAZOLAM HCL 1 MG/ML 2ML VIAL ONE (14:26)
[2024-11-07] MEDS ORDERED: SODIUM BICARB 50MEQ 50ML VIAL 200 ML ONE ×2 (14:26→17:36)
[2024-11-07] MEDS ORDERED: NOREPINEPHRINE BITARTRATE 1 MG/1 ML ML IV ONE (14:26)
--- NOTE | 2024-11-07 14:35 | NUR ---
pt's daughter Laurie was called and left voicemail that the patient had been taken to OR. to call nursing staff if she had any questions.
[2024-11-07] MEDS: ASPIRIN 81MG CHEW TAB NG ONE (14:47)
[2024-11-07] MEDS ORDERED: HEParin-NS 1,000 UNIT/500 ML 500 ML IV ONE (14:57)
[2024-11-07 15:25] LABS: ABG BASE EXCESS -4.4 mmol/L (-2.0-3.0); ABG HCO3 21.3 mmol/L (21.0-28.0); ABG OXYGEN SATURATION 99.6 % (94.0-98.0); ABG PCO2 42 mmHg (35-48); ABG PH 7.328 (7.350-7.450); CARBON MONOXIDE 0.1 % (0.5-1.5); DEVICE COMMENT 1; PO2, ARTERIAL BG 332.7 mmHg (83.0-108.0); TEMPERATURE, CELSIUS BG 37.0 CELSIUS (35.5-37.0)
[2024-11-07] MEDS: PAPAVERINE HCL 30 MG/ML 2ML VIAL ONE (15:51)
[2024-11-07 16:39] LABS: ABG BASE EXCESS -1.8 mmol/L (-2.0-3.0); ABG HCO3 23.5 mmol/L (21.0-28.0); ABG OXYGEN SATURATION 99.4 % (94.0-98.0); ABG PCO2 42 mmHg (35-48); ABG PH 7.364 (7.350-7.450); CARBON MONOXIDE 0.3 % (0.5-1.5); DEVICE COMMENT 3; PO2, ARTERIAL BG 223.4 mmHg (83.0-108.0); TEMPERATURE, CELSIUS BG 37.0 CELSIUS (35.5-37.0)
[2024-11-07] MEDS ORDERED: AMIOdarone 150MG/100ML BAG 100 ML ONE ×2 (17:08→18:25)
[2024-11-07] MEDS ORDERED: DELNIDO FORMULA 0 BAG IV ONE (17:13)
[2024-11-07] MEDS ORDERED: SODIUM BICARB 50MEQ 50ML VIAL 50 ML ONE (17:26)
[2024-11-07 17:27] LABS: ABG BASE EXCESS -6.8 mmol/L (-2.0-3.0); ABG HCO3 19.0 mmol/L (21.0-28.0); ABG OXYGEN SATURATION 99.8 % (94.0-98.0); ABG PCO2 39 mmHg (35-48); ABG PH 7.303 (7.350-7.450); CARBON MONOXIDE 0.3 % (0.5-1.5); DEVICE COMMENT 4; PO2, ARTERIAL BG 412.9 mmHg (83.0-108.0); TEMPERATURE, CELSIUS BG 37.0 CELSIUS (35.5-37.0)
[2024-11-07 17:42] LABS: ABG BASE EXCESS 2.2 mmol/L (-2.0-3.0); ABG HCO3 26.8 mmol/L (21.0-28.0); ABG OXYGEN SATURATION 99.4 % (94.0-98.0); ABG PCO2 42 mmHg (35-48); ABG PH 7.423 (7.350-7.450); CARBON MONOXIDE 0.2 % (0.5-1.5); DEVICE COMMENT 4; PO2, ARTERIAL BG 417.1 mmHg (83.0-108.0); TEMPERATURE, CELSIUS BG 37.0 CELSIUS (35.5-37.0)
[2024-11-07] MEDS ORDERED: MIDAZOLAM HCL 1 MG/ML 5ML VIAL ONE (17:57)
[2024-11-07 18:02] LABS: ABG BASE EXCESS -9.1 mmol/L (-2.0-3.0); ABG HCO3 17.8 mmol/L (21.0-28.0); ABG OXYGEN SATURATION 99.6 % (94.0-98.0); ABG PCO2 42 mmHg (35-48); ABG PH 7.244 (7.350-7.450); CARBON MONOXIDE 0.3 % (0.5-1.5); DEVICE COMMENT 5; PO2, ARTERIAL BG 371.6 mmHg (83.0-108.0); TEMPERATURE, CELSIUS BG 37.0 CELSIUS (35.5-37.0)
[2024-11-07] MEDS ORDERED: SODIUM BICARB 50MEQ 50ML VIAL 150 ML ONE (18:06)
[2024-11-07 18:18] LABS: ABG BASE EXCESS 15.9 mmol/L (-2.0-3.0); ABG HCO3 37.6 mmol/L (21.0-28.0); ABG OXYGEN SATURATION 99.3 % (94.0-98.0); ABG PCO2 34 mmHg (35-48); ABG PH 7.658 (7.350-7.450); CARBON MONOXIDE 0.2 % (0.5-1.5); DEVICE COMMENT 6; PO2, ARTERIAL BG 493.3 mmHg (83.0-108.0); TEMPERATURE, CELSIUS BG 37.0 CELSIUS (35.5-37.0)
[2024-11-07 18:47] LABS: ABG BASE EXCESS -2.8 mmol/L (-2.0-3.0); ABG HCO3 23.9 mmol/L (21.0-28.0); ABG OXYGEN SATURATION 92.6 % (94.0-98.0); ABG PCO2 50 mmHg (35-48); ABG PH 7.297 (7.350-7.450); CARBON MONOXIDE 0.2 % (0.5-1.5); DEVICE COMMENT 7; PO2, ARTERIAL BG 74.0 mmHg (83.0-108.0); TEMPERATURE, CELSIUS BG 37.0 CELSIUS (35.5-37.0)
[2024-11-07 19:29] LABS: ABG BASE EXCESS -2.8 mmol/L (-2.0-3.0); ABG HCO3 25.0 mmol/L (21.0-28.0); ABG OXYGEN SATURATION 92.3 % (94.0-98.0); ABG PCO2 56 mmHg (35-48); ABG PH 7.269 (7.350-7.450); CARBON MONOXIDE 0.9 % (0.5-1.5); PO2, ARTERIAL BG 74.1 mmHg (83.0-108.0); TEMPERATURE, CELSIUS BG 37.0 CELSIUS (35.5-37.0); VENT MODE, BG SIMV PS10 (ROOM AIR)
--- NOTE | 2024-11-07 19:39 | HMCIMG ---
EXAM: CR Chest, 1 View. CLINICAL HISTORY: s/p CABG COMPARISON: None provided. FINDINGS: LUNGS: Left lower lobe infiltrate Endotracheal tube midline above fuad PLEURAL SPACES: No evidence of pleural effusion or pneumothorax. MEDIASTINUM: Enlarged cardiac silhouette BONES: No aggressive appearing osseous lesion seen. MISCELLANEOUS: Chest tube on the left. Right introducer port SVC Distal aspect nasogastric tube not well-demonstrated IMPRESSION: 1. Left lower lobe infiltrate 2. Enlarged cardiac silhouette 3. Endotracheal tube midline above fuad 4. Chest tube on the left. 5. Right introducer port SVC 6. Distal aspect nasogastric tube not well-demonstrated /[place]
[2024-11-07 19:45] LABS: NUCLEATED RED BLOOD CELLS 0.0 % (0.0-0.19); PLATELET COUNT (AUTO) 145.0 K/uL (130-400); RED BLOOD CELL COUNT(AUTO) 4.04 MIL/uL (4.50-6.20); RED CELL DISTRIBUTION WIDTH 13.3 % (11.0-15.5); WHITE BLOOD COUNT (AUTO) 16.6 K/uL (4.8-10.8)
[2024-11-07 19:56] LABS: INR 1.24 (0.85-1.15)
[2024-11-07] MEDS: INSULIN REGULAR, HUMAN 3ML 100 UNIT in 0.9%NACL 100ML 99 ML IV SCH (20:07)
[2024-11-07] MEDS: SODIUM BICARB 50MEQ 50ML VIAL IV PRN (20:08)
[2024-11-07] MEDS: LIDOCAINE 2G/250ML 250 ML IV ONE (20:08)
[2024-11-07] MEDS: DEXTROSE 5% IV SCH (20:09)
[2024-11-07] MEDS: [UNRECOGNIZED DRUG - OTHER] IV SCH (20:09)
[2024-11-07] MEDS: 0.9%NACL 1000ML 1,000 ML IV SCH (20:11)
[2024-11-07] MEDS: FAMOTIDINE 20MG VIAL IV SCH (20:16)
[2024-11-07 20:22] LABS: CREATININE 1.2 mg/dL (0.5-1.3); GLOMERULAR FILTR. RATE CALC 66.0 mL/min (>90); GLUCOSE,RANDOM 168.0 mg/dL (70-105); PHOSPHORUS 7.4 mg/dL (2.5-4.9); SODIUM SERUM 156.0 mmol/L (136-145); UREA NITROGEN, BLOOD 15.0 mg/dL (7-18)
[2024-11-07 20:26] LABS: ABG BASE EXCESS 0.8 mmol/L (-2.0-3.0); ABG HCO3 27.1 mmol/L (21.0-28.0); ABG OXYGEN SATURATION 94.7 % (94.0-98.0); ABG PCO2 50 mmHg (35-48); ABG PH 7.353 (7.350-7.450); CARBON MONOXIDE 1.2 % (0.5-1.5); DEVICE COMMENT ALINE RN CHRISY; PO2, ARTERIAL BG 79.9 mmHg (83.0-108.0); TEMPERATURE, CELSIUS BG 37.0 CELSIUS (35.5-37.0); VENT MODE, BG SIMV PS10 (ROOM AIR)
[2024-11-07 21:41] LABS: ABG BASE EXCESS -1.6 mmol/L (-2.0-3.0); ABG HCO3 23.7 mmol/L (21.0-28.0); ABG OXYGEN SATURATION 96.5 % (94.0-98.0); ABG PCO2 42 mmHg (35-48); ABG PH 7.369 (7.350-7.450); CARBON MONOXIDE 1.1 % (0.5-1.5); DEVICE COMMENT ALINE RN CHRISY; PO2, ARTERIAL BG 93.5 mmHg (83.0-108.0); TEMPERATURE, CELSIUS BG 37.0 CELSIUS (35.5-37.0); VENT MODE, BG SIMV PS10 (ROOM AIR)
[2024-11-07] MEDS: CALCIUM GLUC 1GM 1 GM in 0.9%NACL 50ML 50 ML IV PRN (21:49)
[2024-11-07 22:38] LABS: ABG BASE EXCESS -1.3 mmol/L (-2.0-3.0); ABG HCO3 23.4 mmol/L (21.0-28.0); ABG OXYGEN SATURATION 97.9 % (94.0-98.0); ABG PCO2 39 mmHg (35-48); ABG PH 7.394 (7.350-7.450); CARBON MONOXIDE 0.9 % (0.5-1.5); DEVICE COMMENT ALINE RN CHRISY; PO2, ARTERIAL BG 115.2 mmHg (83.0-108.0); TEMPERATURE, CELSIUS BG 37.0 CELSIUS (35.5-37.0); VENT MODE, BG SIMV PS10 (ROOM AIR)
[2024-11-07 23:33] LABS: ABG BASE EXCESS -1.8 mmol/L (-2.0-3.0); ABG HCO3 22.4 mmol/L (21.0-28.0); ABG OXYGEN SATURATION 96.2 % (94.0-98.0); ABG PCO2 36 mmHg (35-48); ABG PH 7.408 (7.350-7.450); CARBON MONOXIDE 1.2 % (0.5-1.5); DEVICE COMMENT ALINE RN CHRISY; PO2, ARTERIAL BG 85.7 mmHg (83.0-108.0); TEMPERATURE, CELSIUS BG 37.0 CELSIUS (35.5-37.0); VENT MODE, BG SIMV PS10 (ROOM AIR)
[2024-11-08] VITALS (119 sets, daily range): BP systolic 79–135; BP diastolic 48–75; PULSE 85–101; RESP 6–128; TEMP 98.2–101.2; O2SAT 94–98
[2024-11-08 00:14] LABS: ABG BASE EXCESS -3.2 mmol/L (-2.0-3.0); ABG HCO3 20.0 mmol/L (21.0-28.0); ABG OXYGEN SATURATION 96.2 % (94.0-98.0); ABG PCO2 31 mmHg (35-48); ABG PH 7.429 (7.350-7.450); CARBON MONOXIDE 1.3 % (0.5-1.5); DEVICE COMMENT ALINE RN CHRISY; PO2, ARTERIAL BG 85.9 mmHg (83.0-108.0); TEMPERATURE, CELSIUS BG 37.0 CELSIUS (35.5-37.0); VENT MODE, BG SIMV PS10 (ROOM AIR)
--- NOTE | 2024-11-08 00:30 | NUR ---
EXTUBATION PATIENT AAO TO PERSON AND PLACE. ABLE TO FOLLOW COMMANDS APPROPRIATELY. LIFTS HEAD OFF PILLOW AND SUSTAINS. ABLE TO SQUEEZE HANDS AND MOVE BILATERAL FEET. VITAL CAPACITY 1002. ABG WNL. HX OF 1 PACK A DAY X 20 YEARS. NIF -24.7. + LEAK ON CUFF DEFLATION. EXTUBATED 25
--- NOTE | 2024-11-08 00:32 | EKG ---
[facility] Test Date: 2024-11-07 Test Time: 19:27:29 Pat Name: CLARE KERR Department: 2CV Room: 213 1 Gender: M [employer]: [id number] : 1955 Requested By: JLUIS MENDOZA Order Number: [id number] Reading MD: Dev Fang Measurements Intervals [place]aller Rate: 97 P: 79 WI: 191 QRS: 13 QRSD: 90 T: 69 QT: 378 QTc: 480 Interpretive Statements Sinus rhythm Inferior infarct, old Anterior infarct, old Compared to ECG 11/07/2024 05:49:51 Sinus bradycardia no longer present Myocardial infarct finding still present Electronically Signed On 11-09-2024 12:49:42 CDT by Dev Fang Please click the below link to view image of tracing.
[2024-11-08 01:30] LABS: ABG BASE EXCESS 1.5 mmol/L (-2.0-3.0); ABG HCO3 25.7 mmol/L (21.0-28.0); ABG OXYGEN SATURATION 92.7 % (94.0-98.0); ABG PCO2 39 mmHg (35-48); ABG PH 7.436 (7.350-7.450); CARBON MONOXIDE 1.1 % (0.5-1.5); DEVICE COMMENT ALINE,RN CHRYST; PO2, ARTERIAL BG 65.0 mmHg (83.0-108.0); TEMPERATURE, CELSIUS BG 37.0 CELSIUS (35.5-37.0); VENT MODE, BG AM,40 (ROOM AIR)
[2024-11-08 02:33] LABS: ABG BASE EXCESS 1.6 mmol/L (-2.0-3.0); ABG HCO3 25.9 mmol/L (21.0-28.0); ABG OXYGEN SATURATION 95.9 % (94.0-98.0); ABG PCO2 40 mmHg (35-48); ABG PH 7.431 (7.350-7.450); CARBON MONOXIDE 1.2 % (0.5-1.5); DEVICE COMMENT ALINE RN TED; PO2, ARTERIAL BG 84.2 mmHg (83.0-108.0); TEMPERATURE, CELSIUS BG 37.0 CELSIUS (35.5-37.0); VENT MODE, BG CAFM (ROOM AIR)
[2024-11-08 05:23] LABS: IMMATURE GRANULOCYTE ABSOLUTE 0.10 K/uL (0-1); NUCLEATED RED BLOOD CELLS 0.0 % (0.0-0.19); PLATELET COUNT (AUTO) 159 K/uL (130-400); RED BLOOD CELL COUNT(AUTO) 4.04 MIL/uL (4.50-6.20); RED CELL DISTRIBUTION WIDTH 14.3 % (11.0-15.5); WHITE BLOOD COUNT (AUTO) 15.9 K/uL (4.8-10.8)
[2024-11-08 05:48] LABS: INR 1.17 (0.85-1.15)
[2024-11-08 06:08] LABS: CREATININE 1.9 mg/dL (0.5-1.3); GLOMERULAR FILTR. RATE CALC 38.0 mL/min (>90); GLUCOSE,RANDOM 192.0 mg/dL (70-105); PHOSPHORUS 2.2 mg/dL (2.5-4.9); SODIUM SERUM 157.0 mmol/L (136-145); TOTAL PROTEIN, SERUM 4.9 g/dL (6.0-8.3); UREA NITROGEN, BLOOD 19.0 mg/dL (7-18)
[2024-11-08] MEDS: MAGNESIUM 2GM PREMIX 50ML 50 ML IV PRN (06:26)
[2024-11-08 06:36] LABS: ASPARTATE AMINOTRANSFERASE 869.0 U/L (10-37)
[2024-11-08 08:14] LABS: ABG BASE EXCESS 4.1 mmol/L (-2.0-3.0); ABG HCO3 29.5 mmol/L (21.0-28.0); ABG OXYGEN SATURATION 92.6 % (94.0-98.0); ABG PCO2 47 mmHg (35-48); ABG PH 7.415 (7.350-7.450); CARBON MONOXIDE 1.4 % (0.5-1.5); DEVICE COMMENT ALINE SYLVIA; PO2, ARTERIAL BG 65.3 mmHg (83.0-108.0); TEMPERATURE, CELSIUS BG 37.0 CELSIUS (35.5-37.0); VENT MODE, BG COOL MIST (ROOM AIR)
--- NOTE | 2024-11-08 09:19 | PN ---
[facility] CARDIOLOGY PROGRESS NOTE Date Patient Seen: Nov 08, 2024 Time of Visit: 09:16 Interval History: [s/p CABG 11/07 Physical Examination: GENERAL: No acute distress. HEAD: Normal with no signs of head trauma. EYES: PERRLA, EOMI, conjunctiva and sclera normal. ENT: Hearing grossly intact, normal oropharynx. NECK: Supple without JVD. There is no tenderness, lymphadenopathy, or masses. No thyromegaly. Normal carotid upstrokes without bruits. LUNGS: Clear breath sounds bilaterally. No wheezes, or rhonchi. HEART: Normal rate and rhythm. Normal S1 and S2 without murmurs, gallop or rub. VASC: Peripheral pulses +2 bilaterally. ABD: Bowel sounds normal, soft, nontender, no masses, no organomegaly. No audible bruits. : Not examined LYMPH: No lymphadenopathy noted. EXT: No clubbing, cyanosis or edema. SKIN: No rashes or lesions noted. NEURO: Awake, alert, and oriented x3. No focal sensory or strength deficits noted. Laboratory: [ ] Hematology Labs: Test 11/08/24 04:53 Range/Units White Blood Count 15.9 H 4.8-10.8 K/uL Red Blood Count 4.04 L 4.50-6.20 MIL/uL Hemoglobin 13.1 L 14.0-18.0 g/dL Hematocrit 38.3 L 42-54 % Mean Corpuscular Volume 94.8 79-99 fL Mean Corpuscular Hemoglobin 32.4 27.0-33.0 pg Mean Corpuscular Hemoglobin Concent 34.2 32.0-36.0 g/dL Red Cell Distribution Width 14.3 11.0-15.5 % Platelet Count 159 130-400 K/uL Mean Platelet Volume 10.9 H 7.5-10.5 fL Immature Granulocyte % (Auto) 0.6 0-1 % Neutrophils (%) (Auto) 86.5 H 40.0-77.0 % Lymphocytes (%) (Auto) 5.0 L 21.0-51.0 % Monocytes (%) (Auto) 7.8 3.0-13.0 % Eosinophils (%) (Auto) 0.0 0.0-8.0 % Basophils (%) (Auto) 0.1 0.0-5.0 % Neutrophils # (Auto) 13.8 H 1.8-7.7 K/uL Lymphocytes # (Auto) 0.8 L 1.0-4.8 K/uL Monocytes # (Auto) 1.2 H 0.1-1.0 K/uL Eosinophils # (Auto) 0.00 0.00-0.70 K/uL Basophils # (Auto) 0.02 0.00-0.20 K/uL Absolute Immature Granulocyte (auto 0.10 0-1 K/uL Nucleated Red Blood Cells 0.0 0.0-0.19 % White Cell Morphology Comment See comments Chemistry Labs: Test 11/08/24 06:39 11/08/24 04:53 11/07/24 19:30 11/07/24 03:35 Range/Units Whole Blood Glucose 166 H 70-110 MG/DL Sodium Level 157 H 136-145 mmol/L Potassium Level 3.4 L 3.5-5.1 mmol/L Chloride Level 115 H 101-111 mmol/L Carbon Dioxide Level 29 21-32 mmol/L Blood Urea Nitrogen 19 H 7-18 mg/dL Creatinine 1.9 H 0.5-1.3 mg/dL Glomerular Filtration Rate Calc 38 >90 mL/min Random Glucose 192 H 70-105 mg/dL Total Calcium 8.6 8.5-10.1 mg/dL Phosphorus Level 2.2 #L 2.5-4.9 mg/dL Magnesium Level 1.90 1.80-2.40 mg/dL Total Bilirubin 0.8 0.2-1.0 mg/dL Aspartate Amino Transf (AST/SGOT) 869 *H 10-37 U/L Alanine Aminotransferase (ALT/SGPT) 325 H 12-78 U/L Alkaline Phosphatase 56 50-136 U/L Total Protein 4.9 L 6.0-8.3 g/dL Albumin 2.5 L 3.5-5.0 g/dL Ionized Calcium 1.25 1.15-1.33 MMOL/L Triglycerides Level 144 30-200 mg/dL Cholesterol Level 139 <200 mg/dL LDL Cholesterol 81 0-99 mg/dL HDL Cholesterol 30 29-71 mg/dL Test 11/06/24 10:31 Range/Units Hemoglobin A1c 5.7 4.0-6.0 % Estimated Average Glucose (eAG) 117 70-126 mg/dL Coagulation Labs: Test 11/08/24 04:53 Range/Units Prothrombin Time 12.2 H 9.6-11.6 SEC Prothromb Time International Ratio 1.17 H 0.85-1.15 Activated Partial Thromboplast Time 30.4 26.3-35.5 SEC Diagnostics / Radiology: [Copy/Paste Echos/Imaging Report here] Impression and Plan: [Chest pain Hyperlipidemia CAD s/p PTCA to unknown vessel approximately 30 years ago Ex-smoker of 1 PPD with cessation 2 months ago Graves disease #Chest pain Cardiac enzymes negative x5. EKG demonstrated normal sinus rhythm with heart rate of 67bpm, no acute ischemia noted. -2Decho results LVEF is 60-65%. no wall motion or valvular abnormalities. -CCTA There is mixed calcified and noncalcified plaque in the proximal LAD with 80-90% stenosis. Left circumflex coronary artery: Normal caliber, nondominant and gives rise to a large OM branch. There is mixed calcified and noncalcified plaque in the mid LCx with 80-90% stenosis. CAD-RAD of 4 -[facility] with multivessel CAD including left main -Continue ASA 81 mg daily atorvastatin 40 mg daily , lopressor 12.5 mg every 12 hrs, lasix 20 mg IV bid -Defer any P2Y12 inhibitors as patient is s/p CABG with chest tubes in place -rest of care per CV surgery -PT/OT -s/p CABG 3v c/b bradycardia and redo sternotomy with redo of graft failure now s/p CABG with 4v, c/b v-fib no shock, now on lidocaine gtt. Impella 5.5 P5 #Carotid arterial Disease carotid US 11/05: Mild intimal thickening in the bilateral carotid arteries and their branches. Bilateral ICA/CCA ratio is more than 4.0 suggesting more than 70% stenosis. Raised velocities in the bilateral external and internal carotid arteries. Recommend CT/MR angiogram when stable from surgical standpoint -aspirin , statin Thank you for this consult cardiology will continue to follow along. Angi Jacobo MD ] ANGI JACOBO MD Nov 08, 2024 09:19
--- NOTE | 2024-11-08 09:20 | CONS ---
[facility] CONSULTATION NOTE Date Patient Seen: Nov 08, 2024 Time of Visit: 09:20 Supervising Physician: Justin Wellington MD Reason for Consultation: CCM post CABG Primary Care Physician: Self Referral Outpatient Specialists: [ ] Inpatient Consults: PEG, Dr Jacobo, Dr Wellington , Dr Meza PROBLEM LIST: MvCAD s/p CABG x 3+1 w/ redo on 11/07/24 Postoperative leukocytosis as expected Postop acute anemia requiring 2 units of PRBCs intraoperatively Postop hypernatremia Hypokalemia ELSA Hyperglycemia Hypophosphatemia Transaminitis Moderate hypoalbuminemia Hyperproteinemia Chest pain, POA Hyperlipidemia Sclerotic nodule on the non coronary cusp on 2D echo Normal ventricular diastolic function with LVEF of 60-65% on 2D echo 11/05/24 CAD status post PTCA to unknown vessel of proximally 30 years ago Former smoker Graves disease Obesity HPI: This is a 68-year-old obese male with a past medical history hyperlipidemia, CAD, status post PTCA to unknown vessel a proximally 30 years ago, ex-smoker, engrave disease who presented to the ED for complaints of chest pain. Cardiac catheterization demonstrated a very tight left main lesion with multivessel CAD and was referred for surgical revascularization. He underwent CABG x4 on 11/07/24. He was extubated this morning currently on aerosol mask. He remains on multiple drips including Levophed at 5 micrograms/minute, epi at 0.05 mcg/kg per minute and insulin drip. Patient was also started on lidocaine drip due to intraoperative AFib with RVR. Currently patient is sinus rhythm with a heart rate in the 80s. He arrived from surgery with the Impella 5.5. Currently with MCS support of P 5. Patient on FiO2 of 50% saturating 92%. White count of 15.9 hemoglobin of 13 0.1/38.3 platelet count of 159 K. chest x- ray shows signs appeared to be in good position with left side chest tube, right IJ central line, Impella with post CABG sternotomy changes. No pleural effusion no pneumothorax noted. On assessment patient is slightly confused, oriented to name and place. Follows simple commands. BiPAP was offered given he complained of shortness of breaths but he refused. ABG shows a pH of 7.41 pCO2 of 47 PO2 of 65.3 and bicarb 29.5. We will go up on FiO2 to improve comfort and oxygenation. Repeat abg in 30 minutes. Per RN pt was nauseated and vomited 250 ml of coffee brown emesis. post extubation. NG tube placed on LIS with no further output. Famotidine was Dc'd and placed on protonix 40 mg BID IV. PAST MEDICAL HX: see above PAST SURGICAL HX: noncontributory SOCIAL HISTORY: No tobacco, ETOH, or illicit drug use Coded Allergies: No Known Allergies (Unverified Allergy, Unknown, 11/03/24) REVIEW OF SYSTEMS: 12 point ROS reviewed with patient. Pertinent positives mentioned above. Otherwise negative. PHYSICAL EXAM: GENERAL: alert, weak, awake oriented x 3 HEENT: EOMI, Sclera non icteric, moist mucosa NECK: Supple, no JVD, trachea midline LUNGS: Clear breath sounds bilaterally. No wheezes HEART: Regular rate and rhythm. Normal S1 and S2, without murmurs ABD: Abdomen soft, nontender. Bowel sounds present EXT: No clubbing cyanosis or edema NEURO: Alert and oriented to person, follows commands Vital Signs (last 8hr) Date Time Temp Pulse Resp B/P (MAP) Pulse Ox O2 Delivery O2 Flow Rate FiO2 11/08/24 08:15 87 22 107/68 (81) 94 50 11/08/24 08:00 93 23 106/67 (80) 93 50 11/08/24 08:00 98.4 11/08/24 07:45 89 12 114/71 (85) 94 40 11/08/24 07:41 91 17 110/71 (84) 91 40 97/71 (80) 11/08/24 07:30 89 23 105/66 (79) 93 40 11/08/24 07:15 86 22 111/71 (84) 94 40 11/08/24 07:00 86 22 107/70 (82) 94 40 11/08/24 06:45 92 26 107/71 (83) 94 40 11/08/24 06:40 90 18 107/72 (84) 93 40 100/55 (70) 11/08/24 06:30 91 30 109/70 (83) 94 40 11/08/24 06:24 92 18 Aerosol, Face Mask 10.0 40 11/08/24 06:15 86 23 111/71 (84) 93 40 11/08/24 06:00 90 25 113/73 (86) 93 40 11/08/24 05:55 88 26 110/71 (84) 93 40 114/57 (76) 11/08/24 05:45 92 23 117/74 (88) 94 40 11/08/24 05:30 91 26 112/73 (86) 94 40 11/08/24 05:15 91 24 112/73 (86) 94 40 11/08/24 05:00 86 24 112/74 (87) 94 40 11/08/24 04:40 89 24 111/73 (86) 95 40 98/58 (71) 11/08/24 04:30 91 23 115/75 (88) 94 40 11/08/24 04:15 92 21 103/68 (80) 95 40 11/08/24 04:10 95 Aerosol Mask+ 10 40 11/08/24 04:09 100.2 11/08/24 04:00 90 25 111/73 (86) 95 40 11/08/24 03:40 88 25 107/68 (81) 95 40 86/57 (67) 11/08/24 03:30 90 28 102/65 (77) 97 40 11/08/24 03:15 92 16 108/66 (80) 95 40 11/08/24 03:00 99 23 110/68 (82) 97 40 11/08/24 02:43 88 23 110/69 (83) 97 40 96/67 (77) 11/08/24 02:30 92 21 103/67 (79) 95 40 11/08/24 02:15 94 15 96/66 (76) 97 40 11/08/24 02:00 96 28 98/65 (76) 97 40 11/08/24 01:45 94 15 97/65 (76) 95 40 79/53 (62) 11/08/24 01:30 96 28 103/69 (80) 96 40 LABS: Hematology Labs: Test 11/08/24 04:53 Range/Units White Blood Count 15.9 H 4.8-10.8 K/uL Red Blood Count 4.04 L 4.50-6.20 MIL/uL Hemoglobin 13.1 L 14.0-18.0 g/dL Hematocrit 38.3 L 42-54 % Mean Corpuscular Volume 94.8 79-99 fL Mean Corpuscular Hemoglobin 32.4 27.0-33.0 pg Mean Corpuscular Hemoglobin Concent 34.2 32.0-36.0 g/dL Red Cell Distribution Width 14.3 11.0-15.5 % Platelet Count 159 130-400 K/uL Mean Platelet Volume 10.9 H 7.5-10.5 fL Immature Granulocyte % (Auto) 0.6 0-1 % Neutrophils (%) (Auto) 86.5 H 40.0-77.0 % Lymphocytes (%) (Auto) 5.0 L 21.0-51.0 % Monocytes (%) (Auto) 7.8 3.0-13.0 % Eosinophils (%) (Auto) 0.0 0.0-8.0 % Basophils (%) (Auto) 0.1 0.0-5.0 % Neutrophils # (Auto) 13.8 H 1.8-7.7 K/uL Lymphocytes # (Auto) 0.8 L 1.0-4.8 K/uL Monocytes # (Auto) 1.2 H 0.1-1.0 K/uL Eosinophils # (Auto) 0.00 0.00-0.70 K/uL Basophils # (Auto) 0.02 0.00-0.20 K/uL Absolute Immature Granulocyte (auto 0.10 0-1 K/uL Nucleated Red Blood Cells 0.0 0.0-0.19 % White Cell Morphology Comment See comments Chemistry Labs: Test 11/08/24 06:39 11/08/24 04:53 11/07/24 19:30 11/07/24 03:35 Range/Units Whole Blood Glucose 166 H 70-110 MG/DL Sodium Level 157 H 136-145 mmol/L Potassium Level 3.4 L 3.5-5.1 mmol/L Chloride Level 115 H 101-111 mmol/L Carbon Dioxide Level 29 21-32 mmol/L Blood Urea Nitrogen 19 H 7-18 mg/dL Creatinine 1.9 H 0.5-1.3 mg/dL Glomerular Filtration Rate Calc 38 >90 mL/min Random Glucose 192 H 70-105 mg/dL Total Calcium 8.6 8.5-10.1 mg/dL Phosphorus Level 2.2 #L 2.5-4.9 mg/dL Magnesium Level 1.90 1.80-2.40 mg/dL Total Bilirubin 0.8 0.2-1.0 mg/dL Aspartate Amino Transf (AST/SGOT) 869 *H 10-37 U/L Alanine Aminotransferase (ALT/SGPT) 325 H 12-78 U/L Alkaline Phosphatase 56 50-136 U/L Total Protein 4.9 L 6.0-8.3 g/dL Albumin 2.5 L 3.5-5.0 g/dL Ionized Calcium 1.25 1.15-1.33 MMOL/L Triglycerides Level 144 30-200 mg/dL Cholesterol Level 139 <200 mg/dL LDL Cholesterol 81 0-99 mg/dL HDL Cholesterol 30 29-71 mg/dL Test 11/06/24 10:31 Range/Units Hemoglobin A1c 5.7 4.0-6.0 % Estimated Average Glucose (eAG) 117 70-126 mg/dL Coagulation Labs: Test 11/08/24 04:53 Range/Units Prothrombin Time 12.2 H 9.6-11.6 SEC Prothromb Time International Ratio 1.17 H 0.85-1.15 Activated Partial Thromboplast Time 30.4 26.3-35.5 SEC DIAGNOSTICS / RADIOLOGY RESULTS: [[facility] [address] [place] [id number] IMAGING REPORT Signed PATIENT: CLARE KERR MR#: [id number] : 1955 SEX: M AGE: 68 LOCATION: [facility] ORDER 1120 STATUS: ADM IN REPORT#: [id number] SERVICE 0701 REASON: chest pain ORDERING PHYSICIAN: MANUEL GARCIA MD PROCEDURE: ECHO CMP - ECHO 2-D COMPLETE APPROVED REPORT EXAM: Two-dimensional and M-mode echocardiogram with Doppler and color Doppler. INDICATION ICD: Chest Pain 2D Dimensions RVDd 3.6 cm LVEF(%) 58.3 (>50%) LVED Vol(simp.) 73.0 mL IVSd 1.2 (0.7-1.1cm) FS(%) 30 % LVES Vol(simp.) 30.0 mL LVDd 3.9 (3.8-5.6cm) LA (2D) 3.6 (1.6-4.0cm) LVEF(%, simp.) 59 % PWd 1.3 (0.7-1.1cm) Ao Root(2D) 2.9 (2.0-3.7cm) IVSs 1.2 cm IVC diam 1.0 cm LVDs 2.7 (2.5-4.0cm) PWs 1.2 cm Deformation Strain Apical 4 -16.7 % Apical 2 -16.6 % Apical 3 -15.8 % Global Strain -16.4 % M-Mode Dimensions EPSS 0.8 cm LA (MM) 3.7 (1.6-4.0cm) Ao Root(MM) 2.9 (2.0-3.7cm) Aortic Valve AoV Vmax 1.4 m/s Ao Peak GR 8.3 mmHg LVOT Vmax 1.1 m/s AoV VTI 0.2 m Ao Mean GR 4.1 mmHg LVOT VTI 0.19 m Mitral Valve MV E Vmax 73.4 cm/s DECEL Time 215 ms MV A Vmax 86.7 cm/s P 1/2 T 46 ms E/A ratio 0.8 MVA (PHT) 4.7 cm2 TDI E/E' Medial 10.4 E/E' Lateral 9.5 Medial E' Peak V 7.06 cm/s Lateral E' Peak V 7.75 cm/s Left Ventricle The left ventricle is normal size. GLS 16.0% There is normal LV segmental wall motion. Mild concentric left ventricular hypertrophy. LVEF is 60-65%. The left ventricular diastolic function is normal. Right Ventricle The right ventricle is normal size. The right ventricular systolic function is normal. Normal TAPSE Atria The left atrium size is normal. The right atrium size is normal. Aortic Valve Aortic valve is trileaflet, mildly sclerotic, and opens well. Sclerotic nodule on the non-coronary cusp. No aortic regurgitation is present. There is no mobile or oscillating aortic valvular vegetation. There is no aortic valvular stenosis. Mitral Valve The mitral valve is normal in structure. There is trace of mitral valve regurgitation noted. There is no mitral valve stenosis. Tricuspid Valve The tricuspid valve is normal in structure. There is no tricuspid valve regurgitation noted. Pulmonic Valve The pulmonary valve is normal in structure. There is no pulmonic valvular regurgitation. Great Vessels The aortic root is normal in size. The IVC is normal in size and collapses >50% with inspiration. Pericardium There is no pericardial effusion. Other Information Quality : Adequate Conclusion The left atrium size is normal. The right ventricular systolic function is normal. Normal TAPSE Mild concentric left ventricular hypertrophy. GLS 16.0% There is normal LV segmental wall motion. LVEF is 60-65%. The left ventricular diastolic function is normal. Aortic valve is trileaflet, mildly sclerotic, and opens well. Sclerotic nodule on the non-coronary cusp. There is no mobile or oscillating aortic valvular vegetation. There is no pericardial effusion. DICTATED BY: MARTY GARCIA MD DATE: 11/05/24824 ELECTRONICALLY SIGNED BY: MARTY GARCIA MD DATE: 11/05/241733 ] PLAN Follow CT surgeon recommendations Follow cardiology recommendations Multimodal pain management Monitoring H&H Monitor chest tube output Chest x-ray in the morning Monitor ABGs Transfuse if absolutely necessary to keep hemoglobin above 8 Maintain O2 sats greater than 92% Incentive spirometry Glycemic control with goal of 80-180 Referral for cardiac rehabilitation Speech to eval once patient is extubated monitor electrolytes: K Goal of 4 Magnesium goal of 2 Replace accordingly NEURO: Minimize central acting medications as possible. Fall Precautions. Well lighted room through the day and minimize interruptions through the night to prevent acute delirium. PULMONARY: Supplemental 02 as needed Titrate Fio2 to keep Spo2 > or = 90% DuoNebs and CPT as needed IS hourly while awake for pulmonary hygiene Out of bed to chair as tolerated VAP Bundle Bipap 12/6 fio2 50% RT to titrate FiO2 as needed to maintain O2 above 92% CARDIOVASCULAR: Follow hemodynamics. Titrate vasopressor to keep MAP >65 or systolic blood pressure >95mmHg DIPS: Levophed Epi Lidocaine Insulin LINES: Central venous catheter right IJ Impella Chest tube A line Daniel catheter Left femoral sheath in place GI & NUTRITION: NPO for now Aspirations precautions Prokinetic agents and laxatives as needed KIDNEYS & ELECTROLYTES: Strict monitoring of intake and output Daily weights Avoid nephrotoxic agents Monitor electrolytes and replace as needed Goal urine output of 30mL/hr or 0.5mL/kg/hr Urine output 2 L in last 24 hours Chest tube drained 400 mL to lateral side Mediastinal drain 90 mL with I&O balance positive 230 mL ENDOCRINE: Maintain blood glucose between 100-180 at all times. Insulin sliding scale for blood glucose management INFECTIOUS DISEASE: Trend temperature. Nichols-culture if febrile. Micro: [ ] MRSA negative Antibiotics: [ ] Ancef HEMATOLOGY & COAGULATION: Monitor H&H. Keep Hgb > 7 Transfuse 1 unit of PRBC for Hgb < 7 Transfuse 1 pack of platelets of platelets < 20, 000 Watch for any signs and symptoms of bleeding SKIN: Pressure ulcer prevention per facility protocol Rehab: PT/OT Prophylaxis: GI: [ Protonix 40 mg IV b.i.d.] DVT: [Al hose per CV ] Code Status: Full Resuscitation Disposition: [ ICU] Other: Total patient care time exceeds 35 minutes excluding all procedures. Case was discussed and seen with my supervising physician. The above plan was formulated and agreed upon. ATTESTATION BY PHYSICIAN I reviewed the documentation, medical decision making, and treatment plan as noted by the mid-level provider above. I agree with the findings and plan of care. Justin Wellington MD, [facility] Nov 08, 2024 09:20
[2024-11-08] MEDS: ALBUMIN (HUMAN) 5% 250 ML IV PRN (09:57)
[2024-11-08 12:00] LABS: ABG BASE EXCESS 5.8 mmol/L (-2.0-3.0); ABG HCO3 30.8 mmol/L (21.0-28.0); ABG OXYGEN SATURATION 95.2 % (94.0-98.0); ABG PCO2 47 mmHg (35-48); ABG PH 7.439 (7.350-7.450); CARBON MONOXIDE 0.6 % (0.5-1.5); DEVICE COMMENT RN SYVIA; PO2, ARTERIAL BG 77.9 mmHg (83.0-108.0); TEMPERATURE, CELSIUS BG 37.0 CELSIUS (35.5-37.0); VENT MODE, BG CAFM (ROOM AIR)
[2024-11-08] MEDS: NOREPINEPHRIN 8MG/250ML NS 250 ML IV PRN (12:32)
--- NOTE | 2024-11-08 13:30 | PN ---
[facility] PROGRESS NOTE Date of Service: Nov 08, 2024 Time of Service: 13:10 SUBJECTIVE: Mr. Valadez a 68-year-old male that was seen and examined today on 11/03/2024. Patient reports that he came to the emergency department with a chief complaint of chest pain. Onset was two or three years ago. He had similar repeated episodes months back which resolved on its own. Today's episode began at 11:00 a.m. Location is midsternal. Duration is on and off. Character is described as "neck someone is pushing a knuckle into the center of my chest. The chest pain did not radiate to shoulder, neck or jaw. "There was no alleviating factors. There was no aggravating factors. Patient reports that symptoms seemingly resolve on their own. He denies nausea, vomiting, fever and any other associated symptoms. Patient denies any associated shortness of breath. Patient has a past medical history of hyperlipidemia and Graves disease. He has been taking atorvastatin and Synthroid as his home medications. Today in the emergency department WBC 5.8, hemoglobin 12.9 platelets 197. His chemistries were within normal limits sodium 140, potassium 4.2, blood urea nitrogen 15 and creatinine 1.0. His electrocardiogram showed normal sinus rhythm. Patient will be admitted for further evaluation and related recommendations in Med-Surg. 11/04/24 Patient was evaluated at the bedside in ED-09. He reports that he is having chest pain that comes and goes. The patient reports having 2 episodes of chest pain in the last hour. He denies associated symptoms such as shortness of breath, palpitation, diaphoresis, dizziness, nausea or syncope. He does however complain of muscle pain in his lower limbs described as a dull aching discomfort that begins in the hip region that is worsened with movement. The patient complains of tingling and numbness in his feet bilaterally. No fever, chills or recent infection reported. Appetite and oral intake are normal. No other acute complaints at this time. On physical exam, a systolic murmur was auscultated over the aortic area. Bilateral carotid bruits are present. Lower extremities are cool to the touch with diminished pedal pulses. Patient reports bilateral leg muscle pain with exertion (suggestive of claudication), and chronic numbness and tingling in the feet. Patient reports recently quitting smoking tobacco for 2 months. He had a 1 pack a day smoking history since 1968. The [facility] and denies following with a investigative agent. The patient says his chest pain has been ongoing for the past 3 years, and that it gets worse with exertion and at rest. 11/05/24 Patient was evaluated at the bedside room 231. He was hemodynamically stable. Hi symptoms has improved significantly. He doesn't complain of chest pain, shortness of breath and any other associated symptoms. Echocardiogram was done which revealed aortic valve: trileaflet, mildly sclerotic, and opens well. Carotid artery ultrasound showed Bilateral ICA/CCA ratio more than 4.0 suggesting more than 70% stenosis. 11/06/24 Patient was evaluated at the bedside room 231. He was hemodynamically stable. Hi symptoms has improved significantly. He doesn't complain of chest pain, shortness of breath and any other associated symptoms. In coronary CT angiography there is mixed calcified and noncalcified plaque in the proximal LAD with 80-90% stenosis. Left circumflex coronary artery: Normal caliber, nondominant and gives rise to a large OM branch. There is mixed calcified and noncalcified plaque in the mid LCx with 80-90% stenosis. CAD-RAD of 4B. Left heart catheterization with selective right and left coronary angiography was performed which showed critical left main disease. 11/07/24 Patient was evaluated at the bedside room 231. He was hemodynamically stable. He doesn't complain of chest pain, shortness of breath and any other associated symptoms. He complaints of headache 8/10 of intensity after the administration of Nitroglycerin. Cardiac catheterization demonstrated a very tight left main lesion and the patient is referred for surgical revascularization. As per Dr Mendoza: Surgery is planned for today. 11/08/24: Patient was seen and evaluated this morning at bedside. The patient is POD 1 s/p CABG. Patient is currently being managed in the ICU. The patients most recent ABG shows a pH of 7.43, ABG PCO2 47, ABG PO2 77.9, ABG HCO3 30.8. Recent ABG shows improving lactic acid, from 8 to 3.85. The patients chemistry reveals a sodium level 157, potassium level 3.4, creatinine 1.9, BUN 19, GFR 38, phosphorous 2.2. Liver enzymes are trending up, with an ALT level at 325 and an AST level at 869. The patients home medication of Synthroid has been restarted. Chest x-ray ordered today, results pending. We will continue to follow recommendations from critical care team, and cardiology. REVIEW OF SYSTEMS CONSTITUTIONAL: No fever, chills, or night sweats. NEUROLOGICAL: Headache 8/10 intensity, no sensory and motor deficit. CARDIOVASCULAR: Denies any exertional angina, dyspnea on exertion, palpitations. PULMONARY: Denies any shortness of breath, cough, phlegm/sputum, hemoptysis, pleuritic chest pain. GASTROINTESTINAL: Denies nausea, vomiting. Denies pain, tenderness around the abdomen. GENITOURINARY: Denies frequency, urgency, nocturia, hematuria or incontinence. PHYSICAL EXAM GENERAL APPEARANCE: The patient is alert, awake and oriented and bedbound. NEUROLOGICAL: No sensory and motor deficits. CHEST: Normal chest expansion. LUNGS: Normal vesicular breath sound. Absence of any rales, rhonchi or any wheezing. CARDIOVASCULAR: Systolic murmur heard over aortic area. Bilateral carotid bruits heard. No JVD. ABDOMEN: Soft nontender, and nondistended. There is no rebound, voluntary guarding, or rigidity. No abdominal bruit heard. GENITOURINARY: No suprapubic tenderness. No costovertebral angle tenderness. EXTREMITIES: Limbs are non-edematous. Vital Signs (last 8hr) Date Time Temp Pulse Resp B/P (MAP) Pulse Ox O2 Delivery O2 Flow Rate FiO2 11/08/24 12:32 113/71 11/08/24 12:07 98.2 11/08/24 12:05 86 20 11/08/24 11:45 88 20 113/71 (85) 95 100 11/08/24 11:40 92 38 112/69 (83) 96 100 135/54 (81) 11/08/24 11:30 90 18 113/71 (85) 97 100 11/08/24 11:15 90 25 102/64 (77) 97 100 11/08/24 11:00 86 23 107/69 (82) 95 100 11/08/24 10:45 93 16 105/67 (80) 95 100 11/08/24 10:40 88 23 111/69 (83) 97 100 100/59 (73) 11/08/24 10:30 89 23 108/68 (81) 96 100 11/08/24 10:15 86 22 104/66 (79) 96 100 11/08/24 10:00 88 22 105/66 (79) 96 100 11/08/24 10:00 92 18 Aerosol, Face Mask 10.0 100 11/08/24 09:45 87 14 107/66 (80) 95 100 11/08/24 09:40 92 24 107/66 (80) 94 100 107/70 (82) 11/08/24 09:30 87 21 104/65 (78) 95 100 11/08/24 09:15 87 21 114/71 (85) 96 100 11/08/24 09:08 92 23 50 11/08/24 09:00 86 23 112/69 (83) 98 100 11/08/24 08:45 89 38 107/68 (81) 93 100 11/08/24 08:40 86 21 109/68 (82) 94 100 94/65 (75) 11/08/24 08:30 88 13 111/70 (84) 94 50 11/08/24 08:15 87 22 107/68 (81) 94 50 11/08/24 08:00 95 Aerosol Mask+ 10 40 11/08/24 08:00 93 23 106/67 (80) 93 50 11/08/24 08:00 98.4 11/08/24 07:45 89 12 114/71 (85) 94 40 11/08/24 07:41 91 17 110/71 (84) 91 40 97/71 (80) 11/08/24 07:30 89 23 105/66 (79) 93 40 11/08/24 07:15 86 22 111/71 (84) 94 40 11/08/24 07:00 86 22 107/70 (82) 94 40 11/08/24 06:45 92 26 107/71 (83) 94 40 11/08/24 06:40 90 18 107/72 (84) 93 40 100/55 (70) 11/08/24 06:30 91 30 109/70 (83) 94 40 11/08/24 06:24 92 18 Aerosol, Face Mask 10.0 40 11/08/24 06:15 86 23 111/71 (84) 93 40 11/08/24 06:00 90 25 113/73 (86) 93 40 11/08/24 05:55 88 26 110/71 (84) 93 40 114/57 (76) 11/08/24 05:45 92 23 117/74 (88) 94 40 11/08/24 05:30 91 26 112/73 (86) 94 40 11/08/24 05:15 91 24 112/73 (86) 94 40 LABS: Laboratory: Test 11/08/24 11:58 11/08/24 10:18 11/08/24 04:53 11/08/24 00:13 Range/Units Blood Gas Specimen Type Arterial Arterial Blood pH 7.439 7.350-7.450 Arterial Blood Partial Pressure CO2 47 35-48 mmHg Arterial Blood Partial Pressure O2 77.9 L 83.0-108.0 mmHg Arterial Blood HCO3 30.8 H 21.0-28.0 mmol/L Arterial Blood Oxygen Saturation 95.2 94.0-98.0 % Arterial Blood Base Excess 5.8 H -2.0-3.0 mmol/L Hemoglobin (Blood Gas) 12.9 L 13.5-17.5 g/dL Sodium (Blood Gas) 152 H 136-145 MMOL/L Bedside Potassium (Blood Gas) 4.0 3.4-4.5 MMOL/L Bedside Chloride (Blood Gas) 113 H 98-107 MMOL/L Bedside Glucose (Blood Gas) 151 H 65-95 MG/DL Bedside Ionized Calcium (Blood Gas) 1.16 1.15-1.33 MMOL/L Bedside Lactic Acid (Blood Gas) 3.85 *H 0.36-0.75 MMOL/L Blood Gas Temperature 37.0 35.5-37.0 CELSIUS Blood Gas Flow-by 10.00 0.00-15.00 L/min Blood Gas Vent Mode CAFM ROOM AIR FiO2 100.0 % Blood Gas Specimen Comment RN SYVIA Whole Blood Glucose 154 H 70-110 MG/DL White Blood Count 15.9 H 4.8-10.8 K/uL Red Blood Count 4.04 L 4.50-6.20 MIL/uL Hemoglobin 13.1 L 14.0-18.0 g/dL Hematocrit 38.3 L 42-54 % Mean Corpuscular Volume 94.8 79-99 fL Mean Corpuscular Hemoglobin 32.4 27.0-33.0 pg Mean Corpuscular Hemoglobin Concent 34.2 32.0-36.0 g/dL Red Cell Distribution Width 14.3 11.0-15.5 % Platelet Count 159 130-400 K/uL Mean Platelet Volume 10.9 H 7.5-10.5 fL Immature Granulocyte % (Auto) 0.6 0-1 % Neutrophils (%) (Auto) 86.5 H 40.0-77.0 % Lymphocytes (%) (Auto) 5.0 L 21.0-51.0 % Monocytes (%) (Auto) 7.8 3.0-13.0 % Eosinophils (%) (Auto) 0.0 0.0-8.0 % Basophils (%) (Auto) 0.1 0.0-5.0 % Neutrophils # (Auto) 13.8 H 1.8-7.7 K/uL Lymphocytes # (Auto) 0.8 L 1.0-4.8 K/uL Monocytes # (Auto) 1.2 H 0.1-1.0 K/uL Eosinophils # (Auto) 0.00 0.00-0.70 K/uL Basophils # (Auto) 0.02 0.00-0.20 K/uL Absolute Immature Granulocyte (auto 0.10 0-1 K/uL Nucleated Red Blood Cells 0.0 0.0-0.19 % White Cell Morphology Comment See comments Prothrombin Time 12.2 H 9.6-11.6 SEC Prothromb Time International Ratio 1.17 H 0.85-1.15 Activated Partial Thromboplast Time 30.4 26.3-35.5 SEC Sodium Level 157 H 136-145 mmol/L Potassium Level 3.4 L 3.5-5.1 mmol/L Chloride Level 115 H 101-111 mmol/L Carbon Dioxide Level 29 21-32 mmol/L Blood Urea Nitrogen 19 H 7-18 mg/dL Creatinine 1.9 H 0.5-1.3 mg/dL Glomerular Filtration Rate Calc 38 >90 mL/min Random Glucose 192 H 70-105 mg/dL Total Calcium 8.6 8.5-10.1 mg/dL Phosphorus Level 2.2 #L 2.5-4.9 mg/dL Magnesium Level 1.90 1.80-2.40 mg/dL Total Bilirubin 0.8 0.2-1.0 mg/dL Aspartate Amino Transf (AST/SGOT) 869 *H 10-37 U/L Alanine Aminotransferase (ALT/SGPT) 325 H 12-78 U/L Alkaline Phosphatase 56 50-136 U/L Total Protein 4.9 L 6.0-8.3 g/dL Albumin 2.5 L 3.5-5.0 g/dL Blood Gas Respiration Rate 4.0 min. Blood Gas Tidal Volume 600 ml Blood Gas PEEP 5 cm H2O Test 11/07/24 19:30 11/07/24 03:35 Range/Units Ionized Calcium 1.25 1.15-1.33 MMOL/L Triglycerides Level 144 30-200 mg/dL Cholesterol Level 139 <200 mg/dL LDL Cholesterol 81 0-99 mg/dL HDL Cholesterol 30 29-71 mg/dL Current Medications Medications (Trade) Dose Ordered Sig/Brittany Route PRN Reason Start Time Stop Time Status Last Admin Dose Admin Acetaminophen (TYLenol 325MG TAB) 650 mg Q4H PRN PO Temp >38.3C(AFTER EXTUBATION) 11/07/24 14:00 12/07/24 13:59 Acetaminophen (TYLenol 325MG TAB) 650 mg Q6H PRN PO TEMPERATURE GREATER THAN 101.5 11/03/24 21:00 11/07/24 14:00 DC 11/06/24 23:00 650 MG Acetaminophen (TYLenol 325MG TAB) 650 mg Q6H PRN PO MILD PAIN (1-3) 11/07/24 14:00 12/07/24 13:59 Acetaminophen (TYLenol 650MG SUPPOSITORY) 650 mg Q4H PRN RC Temp >38.3C WHILE INTUBATED 11/07/24 14:00 12/07/24 13:59 Acetaminophen (acetaMINOPHEN) 1,000 mg Q6H6 IV 11/07/24 18:00 11/08/24 17:59 11/08/24 11:55 1,000 MG Albumin Human 250 ml @ 0 mls/hr AD PRN IV IF HEMODYNAMICALLY UNSTABLE 11/07/24 14:00 11/08/24 09:57 DC 11/08/24 09:57 125 MLS/HR Aminocaproic Acid 47217 mg/Sodium Chloride 310 ml @ 25 mls/hr AD IV 11/07/24 14:00 11/08/24 02:23 DC Aminocaproic Acid 65084 mg/Sodium Chloride 480 ml @ 0 mls/hr AD PRN IV BLEEDING CONTROL 11/07/24 11:00 11/07/24 14:03 DC Aspirin (Aspirin 81mg Ec Tab) 81 mg DAILY PO 11/04/24 09:00 12/04/24 08:59 11/08/24 08:08 81 MG Atorvastatin Calcium (LIPItor 40MG) 40 mg HS PO 11/03/24 21:00 11/03/24 20:40 DC Atorvastatin Calcium (LIPItor 40MG) 40 mg HS PO 11/03/24 21:00 12/03/24 20:59 Hold 11/07/24 20:15 40 MG Calcium Gluconate (Calcium Gluc 1gm Vial) 1 gm AD PRN IV HYPOCALCEMIA 11/08/24 09:00 12/08/24 08:59 Calcium Gluconate 1 gm/Sodium Chloride 60 ml @ 200 mls/hr AD PRN IV HYPOCALCEMIA 11/07/24 14:00 12/07/24 13:59 11/08/24 12:01 200 MLS/HR Cefazolin Sodium (Ancef) 2 gm ONCALL IVPB 11/06/24 22:00 11/07/24 14:00 DC Cefazolin Sodium (Ancef) 2 gm Q8H IVPB 11/07/24 19:00 11/08/24 11:01 DC 11/08/24 11:15 2 GM Dexmedetomidine/ Sodium Chloride (PRECEdex 400MCG/ 100ML-NS) 400 mcg PROTOCOL IV 11/07/24 14:00 12/07/24 13:59 Dextrose (D50w) 50 ml AD PRN IV HYPOGLYCEMIA PROTOCOL 11/07/24 14:00 12/07/24 13:59 Dextrose/Sodium Bicarbonate 1,025 ml @ 10 mls/hr Q24H IV 11/07/24 19:30 12/07/24 19:29 11/07/24 20:09 10 MLS/HR Docusate Sodium (COLace 100MG CAP) 100 mg BID PO 11/07/24 21:00 11/08/24 10:11 DC 11/07/24 20:15 100 MG Docusate Sodium (COLace LIQUID 100MG/10ML) 100 mg BID NG 11/08/24 10:30 11/15/24 21:00 11/08/24 10:21 100 MG Enoxaparin Sodium (Lovenox) 30 mg DAILY SQ 11/10/24 09:00 12/10/24 08:59 Enoxaparin Sodium (Lovenox) 40 mg DAILY SQ 11/04/24 09:00 11/07/24 13:38 DC 11/05/24 09:06 40 MG Epinephrine HCl 10 mg/Sodium Chloride 250 ml @ 13.948 mls/ hr AD PRN IV POST-OP CARDIOVASCULAR ORDERS 11/07/24 14:00 11/12/24 13:59 11/08/24 07:20 6.974 MLS/HR Epinephrine HCl 10 mg/Sodium Chloride 250 ml @ 0 mls/hr AD PRN IV TITRATE 11/07/24 11:00 11/07/24 14:02 DC Famotidine (Pepcid 20mg Vial) 20 mg BID IV 11/07/24 21:00 11/08/24 08:59 DC 11/08/24 08:11 20 MG Famotidine (Pepcid 20mg Tab) 20 mg DAILY PO 11/04/24 09:00 11/07/24 13:38 DC 11/05/24 09:06 20 MG Furosemide (LASix 20MG TAB) 20 mg Q12H PO 11/09/24 09:00 12/09/24 08:59 Furosemide (LASix 20MG VIAL) 20 mg Q12H IV 11/08/24 09:00 11/09/24 08:59 11/08/24 11:56 20 MG Glucagon (Glucagon 1mg Kit) 1 mg AD PRN IM HYPOGLYCEMIA PROTOCOL 11/07/24 14:00 12/07/24 13:59 Hydralazine HCl (APRESOLine 20MG INJ) 10 mg Q6H PRN IV For:SBP above 160;DBP above 90 11/03/24 21:00 11/07/24 13:38 DC Insulin Human Regular 100 unit/ Sodium Chloride 100 ml @ 0 mls/hr AD IV 11/07/24 14:00 11/09/24 13:59 11/08/24 12:30 4 MLS/HR Ipratropium [place] (AtrovENT UD) 0.5 MG [id number] IH 11/08/24 12:00 12/08/24 11:59 11/08/24 12:02 0.5 MG Lactulose (Constulose 20gm/ 30ml Udcup) 20 gm BID PRN PO CONSTIPATION 11/03/24 21:00 11/07/24 14:00 DC Lactulose (Constulose 20gm/ 30ml Udcup) 20 gm BID PRN PO CONSTIPATION 11/07/24 14:00 12/07/24 13:59 Magnesium Hydroxide (Milk Of Magnesium 30ml) 30 ml DAILY PRN PO CONSTIPATION 11/07/24 14:00 12/07/24 13:59 Magnesium Sulfate 50 ml @ 12.5 mls/hr AD PRN IV MAG LEVEL LESS THAN 2.0 11/07/24 14:00 12/07/24 13:59 11/08/24 06:26 12.5 MLS/HR Metoprolol Tartrate (loprESSOR) 12.5 mg BID PO 11/09/24 09:00 12/09/24 08:59 Metoprolol Tartrate (loprESSOR) 50 mg BID PO 11/04/24 21:00 11/07/24 13:38 DC 11/06/24 20:38 50 MG Montelukast Sodium (SinguLAIR) 10 mg HS PO 11/08/24 21:00 12/08/24 20:59 Morphine Sulfate (morPHINE 2MG SYG) 0.5 mg Q2H PRN IV MODERATE PAIN (4-6) 11/07/24 14:00 11/08/24 13:59 Morphine Sulfate (morPHINE 2MG SYG) 1 mg Q2H PRN IV SEVERE PAIN (7-10) 11/07/24 14:00 11/08/24 13:59 Morphine Sulfate (morPHINE 4MG SYG) 2 mg Q4H PRN IVP SEVERE PAIN (7-10) 11/03/24 21:00 11/07/24 13:38 DC 11/04/24 15:49 2 MG Nitroglycerin (Nitroglycerin 1gm Oint) 0.5 inch Q8H TD 11/03/24 21:00 11/07/24 13:38 DC 11/07/24 05:46 0.5 INCH Nitroglycerin/ Dextrose 0 ml @ 0 mls/hr AD IV 11/07/24 14:00 11/10/24 13:59 Norepinephrine Bitartrate 250 ml @ 0 mls/hr AD PRN IV TITRATE 11/07/24 11:00 11/07/24 14:02 DC Norepinephrine Bitartrate 250 ml @ 0 mls/hr AD PRN IV POST-OP CARDIOVASCULAR ORDERS 11/07/24 14:00 11/12/24 13:59 11/08/24 12:32 9.4 MLS/HR Ondansetron HCl (zoFRAN 4MG INJ) 4 mg Q6H PRN IV NAUSEA/VOMITING 11/03/24 21:00 11/07/24 14:00 DC Ondansetron HCl (zoFRAN 4MG INJ) 4 mg Q6H PRN IV NAUSEA/VOMITING 11/07/24 14:00 12/07/24 13:59 11/08/24 12:27 4 MG Pantoprazole Sodium (PROTonix 40MG INJ) 40 mg BID IVP 11/08/24 09:00 12/08/24 08:59 11/08/24 09:22 40 MG Polyethylene Glycol (MIRalax 3350 17 GM POWD.PACK) 17 gm DAILY PO 11/09/24 09:00 12/09/24 08:59 11/08/24 10:02 17 GM Potassium Phosphate 250 ml @ 42 mls/hr AD PRN IV LOW PHOS LEVEL 11/07/24 14:00 12/07/24 13:59 11/08/24 07:22 42 MLS/HR Potassium Chloride 100 ml @ 100 mls/hr AD PRN IV HYPOKALEMIA 11/07/24 14:00 12/07/24 13:59 11/08/24 09:57 100 MLS/HR Propofol 100 ml @ 0 mls/hr AD PRN IV SEDATION 11/07/24 14:00 11/11/24 13:59 Sodium Bicarbonate (Sodium Bicarb 50meq 50ml Vial) 50 meq AD PRN IV OTHER[SEE DOSING INSTRUCTIONS] 11/07/24 14:00 11/10/24 13:59 11/08/24 00:54 50 MEQ Sodium Chloride 500 ml @ 0 mls/hr AD IV 11/07/24 14:00 12/07/24 13:59 Sodium Chloride 1,000 ml @ 10 mls/hr ONCE IV 11/07/24 14:00 11/08/24 13:59 11/07/24 20:11 10 MLS/HR Sodium Chloride 1,000 ml @ 100 mls/hr Q10H IV 11/06/24 12:30 11/06/24 15:29 DC Sodium Chloride (NS Flush 10ml) 10 ml Q8H PRN IVP IV LINE FLUSH 11/07/24 14:00 12/07/24 13:59 Tramadol HCl (UltRAM) 25 mg Q6H PRN PO MODERATE PAIN (4-6) 11/07/24 14:00 11/12/24 13:59 Tramadol HCl (UltRAM) 50 mg Q6H PRN PO SEVERE PAIN (7-10) 11/07/24 14:00 11/12/24 13:59 11/08/24 11:27 50 MG Vitamin B Complex (Vitamin B-12) 1,000 mcg DAILY IM 11/07/24 09:00 11/13/24 08:59 11/08/24 11:51 1,000 [facility] DIAGNOSTICS / RADIOLOGY: [address] [address] IMAGING REPORT Signed PATIENT: CLARE VALADEZ MR#: [id number] : 1955 SEX: M AGE: 68 LOCATION: 2CV ORDER 1350 STATUS: ADM IN REPORT#: [id number] SERVICE 1630 REASON: s/p CABG ORDERING PHYSICIAN: JLUIS MENDOZA MD PROCEDURE: CXR1VW - CHEST 1VW EXAM: CR Chest, 1 View. CLINICAL HISTORY: s/p CABG COMPARISON: None provided. FINDINGS: LUNGS: Left lower lobe infiltrate Endotracheal tube midline above fuad PLEURAL SPACES: No evidence of pleural effusion or pneumothorax. MEDIASTINUM: Enlarged cardiac silhouette BONES: No aggressive appearing osseous lesion seen. MISCELLANEOUS: Chest tube on the left. Right introducer port SVC Distal aspect nasogastric tube not well-demonstrated IMPRESSION: 1. Left lower lobe infiltrate 2. Enlarged cardiac silhouette 3. Endotracheal tube midline above fuad 4. Chest tube on the left. 5. Right introducer port SVC 6. Distal aspect nasogastric tube not well-demonstrated /[employer] DICTATED BY: KELVIN ROBINS MD DATE: 11/07/242037 ELECTRONICALLY SIGNED BY: KELVIN ROBINS MD DATE: 11/07/242037 ASSESSMENT: Coronary artery disease, suspected POA Hyperlipidemia, POA Grave's disease, POA Peripheral artery disease, suspected Carotid artery stenosis PLAN: Coronary artery disease, suspected * Administer aspirin 325 mg p.o. now and then continue aspirin 81 mg p.o. daily * Troponin every 6 hours, serial troponin levels are 12-11. * Supplemental oxygen as needed to maintain SpO2 greater than 94% * Monitor for recurrence of chest pain, arrhythmias, or hemodynamic changes * Electrocardiogram was done which is normal. * A 2D Echo has been ordered due to patients history of chest pain on exertion and rest. * A cardiology consult has been placed for evaluation of CAD in patient with exe rtional chest pain and vascular disease. 11/04/24 * Echocardiogram was done which revealed aortic valve: trileaflet, mildly sclerotic, and opens well. * Pending Coronary CTA reports. * Lipid panels has been ordered to assess Cardiovascular risks. Results unremarkable. * In coronary CT angiography there is mixed calcified and noncalcified plaque in the proximal LAD with 80-90% stenosis. Left circumflex coronary artery: Normal caliber, nondominant and gives rise to a large OM branch. There is mixed calcified and noncalcified plaque in the mid LCx with 80-90% stenosis. * CAD-RAD of 4B. * Left heart catheterization with selective right and left coronary angiography was performed which showed critical left main disease. Severe ostial RCA stenosis. 11/06/24 * He complaints of headache 8/10 of intensity after the administration of Nitroglycerin. Tylenol has been administered. Closely monitoring the patient. * Cardiac catheterization demonstrated a very tight left main lesion and the patient is referred for surgical revascularization. * Patient is POD 1 S/P CABG, patient is being managed in the ICU per protocol. * Recent ABG shows improving lactic acid, from 8 to 3.85. * We will continue to following Cardiology and critical care recommendations. Peripheral vascular disease, Suspected * Patient has history of exertional bilateral leg pain * Diminished peripheral pulses * A SERA has been ordered due to the patients complaint of bilateral lower extremity claudication, and numbness/tingling in bilateral lower extremities. * Clear aspirin 81 mg daily and statin 40mg * Encouraged supervised exercise therapy for claudication * Counseled on continued smoking cessation 11/04/24 Peripheral Neuropathy * Vitamin B12 has been ordered to rule out peripheral neuropathy.11/05/24 * Complained of numbness and tingling in his limbs. * Vitamin B12 level was measured which showed 173L. * Patient has been started on vitamin B12 supplement 1000 mcg for 6 days. Carotid artery stenosis * Presence of bilateral carotid bruit on exam, suspicion for significant stenosis * Carotid Duplex ultrasound has been done, awaiting reports * Risk factor modification: Smoking cessation, BP control, glycemic control. 11/04/24 * Carotid artery ultrasound showed Bilateral ICA/CCA ratio more than 4.0 suggesting more than 70% stenosis. 11/05/24 Hyperlipidemia * Continue home statin therapy atorvastatin 40 mg * Reinforce low-cholesterol, heart healthy diet (limit saturated fats, increase fiber, fruits and vegetables) * Encouraged regular physical activity as tolerated * Monitor lipid panel * Outpatient follow up with PCP/Cardiology for long-term lipid management and cardiovascular risks reduction Supportive measures * Start patient on GI prophylaxis * DVT prophylaxis * Monitor morning labs CBC and BMP daily Hypothyroidism * Continue home medication of Synthroid * TSH 1.33. MANUEL GARCIA MD Nov 08, 2024 13:30
[2024-11-08] MEDS: CALCIUM GLUC 1GM/10ML VIAL IV PRN (15:51)
[2024-11-08 16:11] LABS: CREATININE 1.3 mg/dL (0.5-1.3); GLOMERULAR FILTR. RATE CALC 60.0 mL/min (>90); GLUCOSE,RANDOM 137.0 mg/dL (70-105); PHOSPHORUS 3.4 mg/dL (2.5-4.9); SODIUM SERUM 155.0 mmol/L (136-145); UREA NITROGEN, BLOOD 14.0 mg/dL (7-18)
[2024-11-08 16:14] LABS: ABG BASE EXCESS 4.9 mmol/L (-2.0-3.0); ABG HCO3 30.6 mmol/L (21.0-28.0); ABG OXYGEN SATURATION 97.2 % (94.0-98.0); ABG PCO2 50 mmHg (35-48); ABG PH 7.408 (7.350-7.450); CARBON MONOXIDE 0.8 % (0.5-1.5); DEVICE COMMENT RN SYLVIA; PO2, ARTERIAL BG 101.3 mmHg (83.0-108.0); TEMPERATURE, CELSIUS BG 37.0 CELSIUS (35.5-37.0); VENT MODE, BG CAFM (ROOM AIR)
[2024-11-08 19:43] LABS: ABG BASE EXCESS 6.9 mmol/L (-2.0-3.0); ABG HCO3 31.4 mmol/L (21.0-28.0); ABG OXYGEN SATURATION 93.4 % (94.0-98.0); ABG PCO2 45 mmHg (35-48); ABG PH 7.467 (7.350-7.450); CARBON MONOXIDE 0.7 % (0.5-1.5); PO2, ARTERIAL BG 67.5 mmHg (83.0-108.0); TEMPERATURE, CELSIUS BG 37.0 CELSIUS (35.5-37.0); VENT MODE, BG AM,40 (ROOM AIR)
[2024-11-08] MEDS: SUCRALFATE 1 GM TABLET PO SCH (20:09)
[2024-11-08] MEDS: LACTULOSE 20 GM/30 ML UDCUP PO PRN (21:10)
[2024-11-08] MEDS: LIDOCAINE 2G/250ML 250 ML IV PRN (21:15)
[2024-11-08 23:49] LABS: ABG BASE EXCESS 6.0 mmol/L (-2.0-3.0); ABG HCO3 30.5 mmol/L (21.0-28.0); ABG OXYGEN SATURATION 96.4 % (94.0-98.0); ABG PCO2 44 mmHg (35-48); ABG PH 7.462 (7.350-7.450); CARBON MONOXIDE 0.3 % (0.5-1.5); PO2, ARTERIAL BG 85.8 mmHg (83.0-108.0); TEMPERATURE, CELSIUS BG 37.0 CELSIUS (35.5-37.0); VENT MODE, BG AM (ROOM AIR)
[2024-11-09] VITALS (101 sets, daily range): BP systolic 89–151; BP diastolic 46–242; PULSE 80–102; RESP 12–37; TEMP 97.7–99.9; O2SAT 92–99
[2024-11-09 04:15] LABS: ABG BASE EXCESS 7.1 mmol/L (-2.0-3.0); ABG HCO3 31.4 mmol/L (21.0-28.0); ABG OXYGEN SATURATION 93.5 % (94.0-98.0); ABG PCO2 43 mmHg (35-48); ABG PH 7.481 (7.350-7.450); CARBON MONOXIDE 0.7 % (0.5-1.5); PO2, ARTERIAL BG 66.8 mmHg (83.0-108.0); TEMPERATURE, CELSIUS BG 37.0 CELSIUS (35.5-37.0); VENT MODE, BG AM (ROOM AIR)
[2024-11-09 04:51] LABS: NUCLEATED RED BLOOD CELLS 0.0 % (0.0-0.19); PLATELET COUNT (AUTO) 115.0 K/uL (130-400); RED BLOOD CELL COUNT(AUTO) 3.41 MIL/uL (4.50-6.20); RED CELL DISTRIBUTION WIDTH 14.5 % (11.0-15.5); WHITE BLOOD COUNT (AUTO) 19.1 K/uL (4.8-10.8)
[2024-11-09 05:23] LABS: CREATININE 1.2 mg/dL (0.5-1.3); GLOMERULAR FILTR. RATE CALC 66.0 mL/min (>90); GLUCOSE,RANDOM 122.0 mg/dL (70-105); PHOSPHORUS 3.8 mg/dL (2.5-4.9); SODIUM SERUM 154.0 mmol/L (136-145); UREA NITROGEN, BLOOD 12.0 mg/dL (7-18)
[2024-11-09 06:10] LABS: INR 1.08 (0.85-1.15)
[2024-11-09 08:49] LABS: ABG BASE EXCESS 5.2 mmol/L (-2.0-3.0); ABG HCO3 29.3 mmol/L (21.0-28.0); ABG OXYGEN SATURATION 92.4 % (94.0-98.0); ABG PCO2 41 mmHg (35-48); ABG PH 7.470 (7.350-7.450); CARBON MONOXIDE 0.6 % (0.5-1.5); PO2, ARTERIAL BG 65.5 mmHg (83.0-108.0); TEMPERATURE, CELSIUS BG 37.0 CELSIUS (35.5-37.0); VENT MODE, BG OXYMIZER (ROOM AIR)
--- NOTE | 2024-11-09 09:33 | HMCIMG ---
EXAM: CR Chest, 1 View. CLINICAL HISTORY: s/p CABG COMPARISON: Radiograph dated November 07, 2024 Findings: AP view of the chest is submitted. Endotracheal tube has been removed. Right IJ central venous catheter tip is unchanged in position. External pacer is unchanged in position. Left chest tube projects of the left hemithorax. Interval improved aeration within the left perihilar and left basilar regions. Trace left pleural effusion. No pneumothorax. Heart size is stable. Mild central pulmonary vascular congestion. IMPRESSION: 1. Improved aeration within the left perihilar and left basilar regions. 2. Right IJ central venous catheter, external pacer, and left chest tube in place. /[facility]
--- NOTE | 2024-11-09 09:36 | PN ---
[facility] PROGRESS NOTE Date Patient Seen: Nov 09, 2024 Time of Visit: 09:36 Supervising Physician: Yuri Petit MD Primary Care Physician: Self Referral Outpatient Specialists: [ ] Inpatient Consults: PEG, Dr Jacobo, Dr Wellington , Dr Mendoza PROBLEM LIST: MvCAD s/p CABG x 3+1 w/ redo on 11/07/24 Postoperative leukocytosis as expected Postop acute anemia requiring 2 units of PRBCs intraoperatively Postop hypernatremia Hypokalemia ELSA Hyperglycemia Hypophosphatemia Transaminitis Moderate hypoalbuminemia Hyperproteinemia Chest pain, POA Hyperlipidemia Sclerotic nodule on the non coronary cusp on 2D echo Normal ventricular diastolic function with LVEF of 60-65% on 2D echo 11/05/24 CAD status post PTCA to unknown vessel of proximally 30 years ago Former smoker Graves disease Obesity INTERVAL HISTORY: This is day 2. Status post CABG. Patient is in better state of mind awake alert and oriented x3. Following commands and cooperative. Denies any current chest pain at this time. No nausea or vomiting today. No major overnight events as per RN. Impella support increased to pH per CV surgery. Weaning Levophed now at 3 micrograms/minute. Overnight he had a fever of 101.1. On chest x-ray suspicious for aspiration pneumonia to right lower lobe. Started patient on Zosyn. He continues on 2 L via Oxymizer saturating 94%. Urine output is 3.3 L with a balance of-1.5 L chest tube drained per 130 mL to the mediastinum and 287 lateral. White count did trend up to 19.1 H&H stable platelet count is 115 K. mild thrombocytopenia, likely from Impella. Sodium of 154 trending down chloride 113 previous 122 mg/dL. He continues with the left femoral sheath. Plans is for removal of left femoral sheath a line so we will start arterial line on upper extremity. Right IJ Cordis and superior vena cava. Impella appears to be in good position on chest x-ray left chest tube in place. No pneumothorax no pleural effusion. We will continue to follow cardiology and CV surgery recommendations. REVIEW OF SYSTEMS: 12 point ROS reviewed with patient. Pertinent positives mentioned above. Otherwise negative. PHYSICAL EXAM: GENERAL: alert, weak, awake oriented x 3 HEENT: EOMI, Sclera non icteric, moist mucosa NECK: Supple, no JVD, trachea midline right IJ. Subclavian Impella 5.5 LUNGS: Rhonchi to right lower lobes. No wheezes HEART: Regular rate and rhythm. Normal S1 and S2, without murmurs mid incision line tenderness. Dressing clean dry and intact. ABD: Abdomen soft, nontender. Bowel sounds present EXT: No clubbing cyanosis or edema. Left femoral sheath. NEURO: Alert and oriented to person, follows commands Vital Signs (last 8hr) Date Time Temp Pulse Resp B/P (MAP) Pulse Ox O2 Delivery O2 Flow Rate FiO2 11/09/24 08:47 18 N/Cannula Oximizer Hi LPM 12.0 11/09/24 07:46 99.9 Aerosol Face Mask 40 11/09/24 07:40 95 22 96/91 (93) 92 110/71 (84) 11/09/24 07:30 95 22 115/98 (104) 90 11/09/24 07:15 93 21 107/100 (102) 92 108/64 (79) 11/09/24 07:00 97 12 113/84 (94) 91 11/09/24 06:25 18 Aerosol, Face Mask 10.0 50 11/09/24 06:24 91 18 11/09/24 06:00 91 19 93/89 (90) 93 50 11/09/24 05:45 92 26 108/84 (92) 93 103/59 (74) 11/09/24 05:30 89 20 97/92 (94) 93 11/09/24 05:15 88 18 101/94 (96) 95 11/09/24 05:00 90 22 108/101 (103) 94 50 11/09/24 04:45 93 20 97/89 (92) 93 107/51 (69) 11/09/24 04:30 94 22 91/84 (86) 94 11/09/24 04:15 92 20 94/60 (71) 94 11/09/24 04:04 94 Aerosol Mask+ 10 50 11/09/24 04:00 99.0 93 20 89/69 (76) 94 50 11/09/24 03:45 94 23 105/59 (74) 94 107/59 (75) 11/09/24 03:30 92 25 107/61 (76) 95 11/09/24 03:15 93 23 94/54 (67) 95 11/09/24 03:00 87 27 94/55 (68) 94 50 11/09/24 02:45 86 18 94/57 (69) 94 96/46 (63) 11/09/24 02:30 90 23 96/58 (71) 94 11/09/24 02:15 94 15 104/60 (75) 95 11/09/24 02:00 93 28 97/55 (69) 94 50 11/09/24 01:45 94 20 92/55 (67) 95 107/65 (79) LABS: Hematology Labs: Test 11/09/24 04:16 11/08/24 04:53 Range/Units White Blood Count 19.1 H 4.8-10.8 K/uL Red Blood Count 3.41 L 4.50-6.20 MIL/uL Hemoglobin 11.1 L 14.0-18.0 g/dL Hematocrit 33.5 L 42-54 % Mean Corpuscular Volume 98.2 79-99 fL Mean Corpuscular Hemoglobin 32.6 27.0-33.0 pg Mean Corpuscular Hemoglobin Concent 33.1 32.0-36.0 g/dL Red Cell Distribution Width 14.5 11.0-15.5 % Platelet Count 115 #L 130-400 K/uL Mean Platelet Volume 11.4 H 7.5-10.5 fL Nucleated Red Blood Cells 0.0 0.0-0.19 % Immature Granulocyte % (Auto) 0.6 0-1 % Neutrophils (%) (Auto) 86.5 H 40.0-77.0 % Lymphocytes (%) (Auto) 5.0 L 21.0-51.0 % Monocytes (%) (Auto) 7.8 3.0-13.0 % Eosinophils (%) (Auto) 0.0 0.0-8.0 % Basophils (%) (Auto) 0.1 0.0-5.0 % Neutrophils # (Auto) 13.8 H 1.8-7.7 K/uL Lymphocytes # (Auto) 0.8 L 1.0-4.8 K/uL Monocytes # (Auto) 1.2 H 0.1-1.0 K/uL Eosinophils # (Auto) 0.00 0.00-0.70 K/uL Basophils # (Auto) 0.02 0.00-0.20 K/uL Absolute Immature Granulocyte (auto 0.10 0-1 K/uL White Cell Morphology Comment See comments Chemistry Labs: Test 11/09/24 05:53 11/09/24 04:16 11/08/24 04:53 11/07/24 19:30 Range/Units Whole Blood Glucose 108 70-110 MG/DL Sodium Level 154 H 136-145 mmol/L Potassium Level 4.1 3.5-5.1 mmol/L Chloride Level 113 H 101-111 mmol/L Carbon Dioxide Level 31 21-32 mmol/L Blood Urea Nitrogen 12 7-18 mg/dL Creatinine 1.2 0.5-1.3 mg/dL Glomerular Filtration Rate Calc 66 >90 mL/min Random Glucose 122 H 70-105 mg/dL Total Calcium 8.4 L 8.5-10.1 mg/dL Phosphorus Level 3.8 2.5-4.9 mg/dL Magnesium Level 1.90 1.80-2.40 mg/dL Total Bilirubin 0.8 0.2-1.0 mg/dL Aspartate Amino Transf (AST/SGOT) 869 *H 10-37 U/L Alanine Aminotransferase (ALT/SGPT) 325 H 12-78 U/L Alkaline Phosphatase 56 50-136 U/L Total Protein 4.9 L 6.0-8.3 g/dL Albumin 2.5 L 3.5-5.0 g/dL Ionized Calcium 1.25 1.15-1.33 MMOL/L Coagulation Labs: Test 11/09/24 04:16 Range/Units Prothrombin Time 11.4 9.6-11.6 SEC Prothromb Time International Ratio 1.08 0.85-1.15 Activated Partial Thromboplast Time 27.3 26.3-35.5 SEC DIAGNOSTICS / RADIOLOGY RESULTS: [ ][place] [id number] IMAGING REPORT Signed PATIENT: CLARE KERR MR#: [id number] : 1955 SEX: M AGE: 68 LOCATION: 2CV ORDER 2300 STATUS: ADM IN REPORT#: [id number] SERVICE 0400 REASON: s/p CABG ORDERING PHYSICIAN: JLUIS MENDOZA MD PROCEDURE: CXR1VW - CHEST 1VW EXAM: CR Chest, 1 View. CLINICAL HISTORY: s/p CABG COMPARISON: None provided. FINDINGS: LUNGS: There is no mass, infiltrate, or acute pulmonary abnormality. PLEURAL SPACES: No evidence of pleural effusion or pneumothorax. MEDIASTINUM: The cardiomediastinal silhouette is within normal limits. BONES: No aggressive appearing osseous lesion seen. MISCELLANEOUS: Introducer SVC Nasogastric tube below diaphragm Chest tube on the left Slight left basilar postoperative changes IMPRESSION: 1. Introducer SVC 2. Nasogastric tube below diaphragm 3. Chest tube on the left 4. Slight left basilar postoperative changes /[place] DICTATED BY: KELVIN ROBINS MD DATE: 11/09/242047 ELECTRONICALLY SIGNED BY: KELVIN ROBINS MD DATE: 11/09/242047 PLAN Follow CT surgeon recommendations Follow cardiology recommendations Multimodal pain management Monitoring H&H Monitor chest tube output Chest x-ray in the morning Monitor ABGs Transfuse if absolutely necessary to keep hemoglobin above 8 Maintain O2 sats greater than 92% Incentive spirometry Glycemic control with goal of 80-180 Referral for cardiac rehabilitation Speech to eval once patient is extubated monitor electrolytes: K Goal of 4 Magnesium goal of 2 Replace accordingly arterial line to upper extremity remove left femoral sheath per CV surgery recs. NEURO: Minimize central acting medications as possible. Fall Precautions. Well lighted room through the day and minimize interruptions through the night to prevent acute delirium. PULMONARY: Supplemental 02 as needed Titrate Fio2 to keep Spo2 > or = 90% DuoNebs and CPT as needed IS hourly while awake for pulmonary hygiene Out of bed to chair as tolerated VAP Bundle Bipap 12/6 fio2 50% RT to titrate FiO2 as needed to maintain O2 above 92% CARDIOVASCULAR: Follow hemodynamics. Titrate vasopressor to keep MAP >65 or systolic blood pressure >95mmHg DIPS: Levophed Epi Lidocaine Insulin LINES: Central venous catheter right IJ Impella Chest tube A line Daniel catheter Left femoral sheath in place GI & NUTRITION: NPO for now Aspirations precautions Prokinetic agents and laxatives as needed KIDNEYS & ELECTROLYTES: Strict monitoring of intake and output Daily weights Avoid nephrotoxic agents Monitor electrolytes and replace as needed Goal urine output of 30mL/hr or 0.5mL/kg/hr Urine output 2 L in last 24 hours Chest tube drained 400 mL to lateral side Mediastinal drain 90 mL with I&O balance positive 230 mL ENDOCRINE: Maintain blood glucose between 100-180 at all times. Insulin sliding scale for blood glucose management INFECTIOUS DISEASE: Trend temperature. Nichols-culture if febrile. Micro: [ ] MRSA negative Antibiotics: [ ] Ancef HEMATOLOGY & COAGULATION: Monitor H&H. Keep Hgb > 7 Transfuse 1 unit of PRBC for Hgb < 7 Transfuse 1 pack of platelets of platelets < 20, 000 Watch for any signs and symptoms of bleeding SKIN: Pressure ulcer prevention per facility protocol Rehab: PT/OT Prophylaxis: GI: [ Protonix 40 mg IV b.i.d.] DVT: [Al hose per CV ] Code Status: Full Resuscitation Disposition: [ ICU] Other: Total patient care time exceeds 35 minutes excluding all procedures. Case was discussed and seen with my supervising physician. The above plan was formulated and agreed upon. ATTESTATION BY PHYSICIAN The patient has been seen and evaluated, the case has been discussed with the DREDGE PUMP OPERATOR, I agree with the clinical findings and plan of care. Yuri Petit MD, [facility] Nov 09, 2024 09:36
[2024-11-09] MEDS: LIDOCAINE/PRILOCAINE CREAM 5GM TUBE TP ONE (09:49)
[2024-11-09] MEDS: ZOSYN 3.375GM +NS 50ML IV SCH (09:49)
[2024-11-09] MEDS ORDERED: ZOSYN 3.375GM +NS 50ML IV SCH (10:00)
[2024-11-09 11:41] LABS: ABG BASE EXCESS 5.6 mmol/L (-2.0-3.0); ABG HCO3 30.0 mmol/L (21.0-28.0); ABG OXYGEN SATURATION 94.2 % (94.0-98.0); ABG PCO2 43 mmHg (35-48); ABG PH 7.465 (7.350-7.450); CARBON MONOXIDE 0.6 % (0.5-1.5); PO2, ARTERIAL BG 72.6 mmHg (83.0-108.0); TEMPERATURE, CELSIUS BG 37.0 CELSIUS (35.5-37.0); VENT MODE, BG OXYMIZER (ROOM AIR)
[2024-11-09 16:12] LABS: ABG BASE EXCESS 6.1 mmol/L (-2.0-3.0); ABG HCO3 30.4 mmol/L (21.0-28.0); ABG OXYGEN SATURATION 95.9 % (94.0-98.0); ABG PCO2 43 mmHg (35-48); ABG PH 7.472 (7.350-7.450); CARBON MONOXIDE 0.7 % (0.5-1.5); DEVICE COMMENT ALINEEDDDIERN; PO2, ARTERIAL BG 80.1 mmHg (83.0-108.0); TEMPERATURE, CELSIUS BG 37.0 CELSIUS (35.5-37.0); VENT MODE, BG OXYMIZER (ROOM AIR)
--- NOTE | 2024-11-09 16:59 | PN ---
[facility] PROGRESS NOTE Date of Service: Nov 09, 2024 Time of Service: 16:39 SUBJECTIVE: Mr. Valadez a 68-year-old male that was seen and examined today on 11/03/2024. Patient reports that he came to the emergency department with a chief complaint of chest pain. Onset was two or three years ago. He had similar repeated episodes months back which resolved on its own. Today's episode began at 11:00 a.m. Location is midsternal. Duration is on and off. Character is described as "neck someone is pushing a knuckle into the center of my chest. The chest pain did not radiate to shoulder, neck or jaw. "There was no alleviating factors. There was no aggravating factors. Patient reports that symptoms seemingly resolve on their own. He denies nausea, vomiting, fever and any other associated symptoms. Patient denies any associated shortness of breath. Patient has a past medical history of hyperlipidemia and Graves disease. He has been taking atorvastatin and Synthroid as his home medications. Today in the emergency department WBC 5.8, hemoglobin 12.9 platelets 197. His chemistries were within normal limits sodium 140, potassium 4.2, blood urea nitrogen 15 and creatinine 1.0. His electrocardiogram showed normal sinus rhythm. Patient will be admitted for further evaluation and related recommendations in Med-Surg. 11/04/24 Patient was evaluated at the bedside in ED-09. He reports that he is having chest pain that comes and goes. The patient reports having 2 episodes of chest pain in the last hour. He denies associated symptoms such as shortness of breath, palpitation, diaphoresis, dizziness, nausea or syncope. He does however complain of muscle pain in his lower limbs described as a dull aching discomfort that begins in the hip region that is worsened with movement. The patient complains of tingling and numbness in his feet bilaterally. No fever, chills or recent infection reported. Appetite and oral intake are normal. No other acute complaints at this time. On physical exam, a systolic murmur was auscultated over the aortic area. Bilateral carotid bruits are present. Lower extremities are cool to the touch with diminished pedal pulses. Patient reports bilateral leg muscle pain with exertion (suggestive of claudication), and chronic numbness and tingling in the feet. Patient reports recently quitting smoking tobacco for 2 months. He had a 1 pack a day smoking history since 1968. The [facility] and denies following with a guide. The patient says his chest pain has been ongoing for the past 3 years, and that it gets worse with exertion and at rest. 11/05/24 Patient was evaluated at the bedside room 231. He was hemodynamically stable. Hi symptoms has improved significantly. He doesn't complain of chest pain, shortness of breath and any other associated symptoms. Echocardiogram was done which revealed aortic valve: trileaflet, mildly sclerotic, and opens well. Carotid artery ultrasound showed Bilateral ICA/CCA ratio more than 4.0 suggesting more than 70% stenosis. 11/06/24 Patient was evaluated at the bedside room 231. He was hemodynamically stable. Hi symptoms has improved significantly. He doesn't complain of chest pain, shortness of breath and any other associated symptoms. In coronary CT angiography there is mixed calcified and noncalcified plaque in the proximal LAD with 80-90% stenosis. Left circumflex coronary artery: Normal caliber, nondominant and gives rise to a large OM branch. There is mixed calcified and noncalcified plaque in the mid LCx with 80-90% stenosis. CAD-RAD of 4B. Left heart catheterization with selective right and left coronary angiography was performed which showed critical left main disease. 11/07/24 Patient was evaluated at the bedside room 231. He was hemodynamically stable. He doesn't complain of chest pain, shortness of breath and any other associated symptoms. He complaints of headache 8/10 of intensity after the administration of Nitroglycerin. Cardiac catheterization demonstrated a very tight left main lesion and the patient is referred for surgical revascularization. As per Dr Mendoza: Surgery is planned for today. 11/08/24: Patient was seen and evaluated this morning at bedside. The patient is POD 1 s/p CABG. Patient is currently being managed in the ICU. The patients most recent ABG shows a pH of 7.43, ABG PCO2 47, ABG PO2 77.9, ABG HCO3 30.8. Recent ABG shows improving lactic acid, from 8 to 3.85. The patients chemistry reveals a sodium level 157, potassium level 3.4, creatinine 1.9, BUN 19, GFR 38, phosphorous 2.2. Liver enzymes are trending up, with an ALT level at 325 and an AST level at 869. The patients home medication of Synthroid has been restarted. Chest x-ray ordered today, results pending. We will continue to follow recommendations from critical care team, and cardiology. 11/09/2024: Patient is seen and evaluated in the room 213. The patient is POD 2 s/p CABG. Patient is currently being managed in the ICU. He is complaining of pain. His vitals are in the normal range. His Hb is 11.1, WBC is 19.1, Plt is 115, sodium is 154, chloride is 113, glucose is 122. His recent ABG shows that pH is 7.472, pO2 is 80.1, bicarb is 30.4, Hb is 11.4, lactic acid is 1.63. His chest X-ray on 11/08 showed improved aeration within the left perihilar and left basilar regions. As per nurse he is having intervention confusion, stopped lidocaine and they also weaning on pressors norepinephrine and epinephrine. The drain output from left anterior chest is 20ml, mediastinal lateral is 160ml, mediastinal mediastinal is 30ml, right anterior chest is 160 ml. We will continue to follow recommendations from critical care team, and cardiology. REVIEW OF SYSTEMS CONSTITUTIONAL: No fever, chills, or night sweats. NEUROLOGICAL: Headache 8/10 intensity, no sensory and motor deficit. CARDIOVASCULAR: Denies any exertional angina, dyspnea on exertion, palpitations. PULMONARY: Denies any shortness of breath, cough, phlegm/sputum, hemoptysis, pleuritic chest pain. GASTROINTESTINAL: Denies nausea, vomiting. Denies pain, tenderness around the abdomen. GENITOURINARY: Denies frequency, urgency, nocturia, hematuria or incontinence. PHYSICAL EXAM GENERAL APPEARANCE: The patient is alert, awake and oriented and bedbound. NEUROLOGICAL: No sensory and motor deficits. CHEST: left anterior chest, mediastinal lateral, mediastinal mediastinal, right anterior chest are present. Normal chest expansion. LUNGS: Normal vesicular breath sound. Absence of any rales, rhonchi or any wheezing. CARDIOVASCULAR: Systolic murmur heard over aortic area. Bilateral carotid bruits heard. No JVD. ABDOMEN: Soft nontender, and nondistended. There is no rebound, voluntary guarding, or rigidity. No abdominal bruit heard. GENITOURINARY: No suprapubic tenderness. No costovertebral angle tenderness. EXTREMITIES: Limbs are non-edematous. Vital Signs (last 8hr) Date Time Temp Pulse Resp B/P (MAP) Pulse Ox O2 Delivery O2 Flow Rate FiO2 11/09/24 16:00 98.4 oxymizer 12.0 11/09/24 16:00 96 Nasal Cannula* 12 50 N/C Oxymizer Hi LPM* 11/09/24 15:15 92 25 119/76 (90) 89 11/09/24 15:00 92 15 133/80 (97) 87 11/09/24 14:45 84 18 115/74 (88) 97 104/70 (81) 11/09/24 14:30 84 20 124/79 (94) 97 11/09/24 14:15 84 17 124/80 (95) 96 11/09/24 14:00 83 19 120/78 (92) 97 11/09/24 13:45 86 20 135/84 (101) 96 104/76 (85) 11/09/24 13:30 88 17 143/89 (107) 95 11/09/24 13:15 93 25 132/83 (99) 96 11/09/24 13:00 87 19 130/81 (97) 97 11/09/24 12:45 88 18 130/82 (98) 97 135/75 (95) 11/09/24 12:30 88 19 140/89 (106) 96 11/09/24 12:15 89 22 137/85 (102) 95 11/09/24 12:00 87 18 127/81 (96) 96 11/09/24 12:00 95 Nasal Cannula* 12 50 N/C Oxymizer Hi LPM* 11/09/24 12:00 99.0 oxymizer 12.0 11/09/24 12:00 18 N/Cannula Oximizer Hi LPM 12.0 11/09/24 11:45 91 19 128/79 (95) 95 120/75 (90) 11/09/24 11:30 90 19 134/83 (100) 93 11/09/24 11:15 89 20 127/80 (96) 94 11/09/24 11:00 90 18 139/86 (103) 95 11/09/24 10:45 90 21 122/242 (202) 95 118/70 (86) 11/09/24 10:30 88 17 104/88 (93) 95 11/09/24 10:15 90 19 90/73 (79) 92 11/09/24 10:00 90 19 101/82 (88) 92 11/09/24 09:45 93 21 90/72 (78) 93 116/67 (83) 11/09/24 09:30 91 24 107/88 (94) 93 11/09/24 09:15 95 22 103/84 (90) 94 11/09/24 09:00 92 20 93/82 (86) 94 11/09/24 08:47 18 N/Cannula Oximizer Hi LPM 12.0 11/09/24 08:45 98 20 109/75 (86) 93 116/77 (90) LABS: Laboratory: Test 11/09/24 16:10 11/09/24 05:53 11/09/24 04:16 11/08/24 04:53 Range/Units Blood Gas Specimen Type Arterial Arterial Blood pH 7.472 H 7.350-7.450 Arterial Blood Partial Pressure CO2 43 35-48 mmHg Arterial Blood Partial Pressure O2 80.1 L 83.0-108.0 mmHg Arterial Blood HCO3 30.4 H 21.0-28.0 mmol/L Arterial Blood Oxygen Saturation 95.9 94.0-98.0 % Arterial Blood Base Excess 6.1 H -2.0-3.0 mmol/L Hemoglobin (Blood Gas) 11.4 L 13.5-17.5 g/dL Sodium (Blood Gas) 146 H 136-145 MMOL/L Bedside Potassium (Blood Gas) 4.1 3.4-4.5 MMOL/L Bedside Chloride (Blood Gas) 108 H 98-107 MMOL/L Bedside Glucose (Blood Gas) 157 H 65-95 MG/DL Bedside Ionized Calcium (Blood Gas) 1.11 L 1.15-1.33 MMOL/L Bedside Lactic Acid (Blood Gas) 1.63 H 0.36-0.75 MMOL/L Blood Gas Temperature 37.0 35.5-37.0 CELSIUS Blood Gas Flow-by 12.00 0.00-15.00 L/min Blood Gas Vent Mode OXYMIZER ROOM AIR FiO2 65.0 % Blood Gas Specimen Comment ALINEEDDDIERN Whole Blood Glucose 108 70-110 MG/DL White Blood Count 19.1 H 4.8-10.8 K/uL Red Blood Count 3.41 L 4.50-6.20 MIL/uL Hemoglobin 11.1 L 14.0-18.0 g/dL Hematocrit 33.5 L 42-54 % Mean Corpuscular Volume 98.2 79-99 fL Mean Corpuscular Hemoglobin 32.6 27.0-33.0 pg Mean Corpuscular Hemoglobin Concent 33.1 32.0-36.0 g/dL Red Cell Distribution Width 14.5 11.0-15.5 % Platelet Count 115 #L 130-400 K/uL Mean Platelet Volume 11.4 H 7.5-10.5 fL Nucleated Red Blood Cells 0.0 0.0-0.19 % Prothrombin Time 11.4 9.6-11.6 SEC Prothromb Time International Ratio 1.08 0.85-1.15 Activated Partial Thromboplast Time 27.3 26.3-35.5 SEC Sodium Level 154 H 136-145 mmol/L Potassium Level 4.1 3.5-5.1 mmol/L Chloride Level 113 H 101-111 mmol/L Carbon Dioxide Level 31 21-32 mmol/L Blood Urea Nitrogen 12 7-18 mg/dL Creatinine 1.2 0.5-1.3 mg/dL Glomerular Filtration Rate Calc 66 >90 mL/min Random Glucose 122 H 70-105 mg/dL Total Calcium 8.4 L 8.5-10.1 mg/dL Phosphorus Level 3.8 2.5-4.9 mg/dL Magnesium Level 1.90 1.80-2.40 mg/dL Immature Granulocyte % (Auto) 0.6 0-1 % Neutrophils (%) (Auto) 86.5 H 40.0-77.0 % Lymphocytes (%) (Auto) 5.0 L 21.0-51.0 % Monocytes (%) (Auto) 7.8 3.0-13.0 % Eosinophils (%) (Auto) 0.0 0.0-8.0 % Basophils (%) (Auto) 0.1 0.0-5.0 % Neutrophils # (Auto) 13.8 H 1.8-7.7 K/uL Lymphocytes # (Auto) 0.8 L 1.0-4.8 K/uL Monocytes # (Auto) 1.2 H 0.1-1.0 K/uL Eosinophils # (Auto) 0.00 0.00-0.70 K/uL Basophils # (Auto) 0.02 0.00-0.20 K/uL Absolute Immature Granulocyte (auto 0.10 0-1 K/uL White Cell Morphology Comment See comments Total Bilirubin 0.8 0.2-1.0 mg/dL Aspartate Amino Transf (AST/SGOT) 869 *H 10-37 U/L Alanine Aminotransferase (ALT/SGPT) 325 H 12-78 U/L Alkaline Phosphatase 56 50-136 U/L Total Protein 4.9 L 6.0-8.3 g/dL Albumin 2.5 L 3.5-5.0 g/dL Test 11/08/24 00:13 11/07/24 19:30 Range/Units Blood Gas Respiration Rate 4.0 min. Blood Gas Tidal Volume 600 ml Blood Gas PEEP 5 cm H2O Ionized Calcium 1.25 1.15-1.33 MMOL/L Current Medications Medications (Trade) Dose Ordered Sig/Brittany Route PRN Reason Start Time Stop Time Status Last Admin Dose Admin Acetaminophen (TYLenol 325MG TAB) 650 mg Q4H PRN PO Temp >38.3C(AFTER EXTUBATION) 11/07/24 14:00 12/07/24 13:59 Acetaminophen (TYLenol 325MG TAB) 650 mg Q6H PRN PO TEMPERATURE GREATER THAN 101.5 11/03/24 21:00 11/07/24 14:00 DC 11/06/24 23:00 650 MG Acetaminophen (TYLenol 325MG TAB) 650 mg Q6H PRN PO MILD PAIN (1-3) 11/07/24 14:00 12/07/24 13:59 Acetaminophen (TYLenol 650MG SUPPOSITORY) 650 mg Q4H PRN RC Temp >38.3C WHILE INTUBATED 11/07/24 14:00 12/07/24 13:59 Acetaminophen (acetaMINOPHEN) 1,000 mg Q6H IVPB 11/09/24 09:00 11/12/24 08:59 11/09/24 15:47 1,000 MG Acetaminophen (acetaMINOPHEN) 1,000 mg Q6H6 IV 11/07/24 18:00 11/08/24 17:59 DC 11/08/24 18:08 1,000 MG Albumin Human 250 ml @ 0 mls/hr AD PRN IV IF HEMODYNAMICALLY UNSTABLE 11/07/24 14:00 11/08/24 09:57 DC 11/08/24 09:57 125 MLS/HR Aminocaproic Acid 98845 mg/Sodium Chloride 310 ml @ 25 mls/hr AD IV 11/07/24 14:00 11/08/24 02:23 DC Aminocaproic Acid 52841 mg/Sodium Chloride 480 ml @ 0 mls/hr AD PRN IV BLEEDING CONTROL 11/07/24 11:00 11/07/24 14:03 DC Aspirin (Aspirin 81mg Ec Tab) 81 mg DAILY PO 11/04/24 09:00 12/04/24 08:59 11/09/24 08:16 81 MG Atorvastatin Calcium (LIPItor 40MG) 40 mg HS PO 11/03/24 21:00 11/03/24 20:40 DC Atorvastatin Calcium (LIPItor 40MG) 40 mg HS PO 11/03/24 21:00 11/09/24 07:45 DC 11/07/24 20:15 40 MG Calcium Gluconate (Calcium Gluc 1gm Vial) 1 gm AD PRN IV HYPOCALCEMIA 11/08/24 09:00 11/09/24 07:45 DC 11/08/24 16:36 1 GM Calcium Gluconate 1 gm/Sodium Chloride 60 ml @ 200 mls/hr AD PRN IV HYPOCALCEMIA 11/07/24 14:00 12/07/24 13:59 11/09/24 08:50 200 MLS/HR Cefazolin Sodium (Ancef) 2 gm ONCALL IVPB 11/06/24 22:00 11/07/24 14:00 DC Cefazolin Sodium (Ancef) 2 gm Q8H IVPB 11/07/24 19:00 11/08/24 11:01 DC 11/08/24 11:15 2 GM Clopidogrel Bisulfate (plaVIX 75MG) 75 mg DAILY PO 11/08/24 14:00 12/08/24 13:59 11/09/24 08:16 75 MG Dexmedetomidine/ Sodium Chloride (PRECEdex 400MCG/ 100ML-NS) 400 mcg PROTOCOL IV 11/07/24 14:00 12/07/24 13:59 Dextrose (D50w) 50 ml AD PRN IV HYPOGLYCEMIA PROTOCOL 11/07/24 14:00 12/07/24 13:59 Dextrose/Sodium Bicarbonate 1,025 ml @ 10 mls/hr Q24H IV 11/07/24 19:30 12/07/24 19:29 11/07/24 20:09 10 MLS/HR Docusate Sodium (COLace 100MG CAP) 100 mg BID PO 11/07/24 21:00 11/08/24 10:11 DC 11/07/24 20:15 100 MG Docusate Sodium (COLace LIQUID 100MG/10ML) 100 mg BID NG 11/08/24 10:30 11/15/24 21:00 11/09/24 08:15 100 MG Enoxaparin Sodium (Lovenox) 30 mg DAILY SQ 11/10/24 09:00 12/10/24 08:59 Enoxaparin Sodium (Lovenox) 40 mg DAILY SQ 11/04/24 09:00 11/07/24 13:38 DC 11/05/24 09:06 40 MG Epinephrine HCl 10 mg/Sodium Chloride 250 ml @ 13.948 mls/ hr AD PRN IV POST-OP CARDIOVASCULAR ORDERS 11/07/24 14:00 11/12/24 13:59 11/08/24 07:20 6.974 MLS/HR Epinephrine HCl 10 mg/Sodium Chloride 250 ml @ 0 mls/hr AD PRN IV TITRATE 11/07/24 11:00 11/07/24 14:02 DC Famotidine (Pepcid 20mg Vial) 20 mg BID IV 11/07/24 21:00 11/08/24 08:59 DC 11/08/24 08:11 20 MG Famotidine (Pepcid 20mg Tab) 20 mg DAILY PO 11/04/24 09:00 11/07/24 13:38 DC 11/05/24 09:06 20 MG Furosemide (LASix 20MG TAB) 20 mg Q12H PO 11/09/24 09:00 12/09/24 08:59 11/09/24 08:16 20 MG Furosemide (LASix 20MG VIAL) 20 mg Q12H IV 11/08/24 09:00 11/09/24 08:59 DC 11/08/24 20:23 20 MG Glucagon (Glucagon 1mg Kit) 1 mg AD PRN IM HYPOGLYCEMIA PROTOCOL 11/07/24 14:00 12/07/24 13:59 Hydralazine HCl (APRESOLine 20MG INJ) 10 mg Q6H PRN IV For:SBP above 160;DBP above 90 11/03/24 21:00 11/07/24 13:38 DC Insulin Human Regular 100 unit/ Sodium Chloride 100 ml @ 0 mls/hr AD IV 11/07/24 14:00 11/09/24 13:59 DC 11/08/24 12:30 4 MLS/HR Ipratropium [place] (AtrovENT UD) 0.5 MG B2DQDER IH 11/08/24 12:00 12/08/24 11:59 11/09/24 11:43 0.5 MG Lactulose (Constulose 20gm/ 30ml Udcup) 20 gm BID PRN PO CONSTIPATION 11/03/24 21:00 11/07/24 14:00 DC Lactulose (Constulose 20gm/ 30ml Udcup) 20 gm BID PRN PO CONSTIPATION 11/07/24 14:00 12/07/24 13:59 11/09/24 08:15 20 GM Levothyroxine Sodium (SYNTHroid 125MCG TAB) 125 mcg SYN PO 11/09/24 06:30 12/09/24 06:29 11/09/24 05:37 125 MCG Lidocaine HCl/ Dextrose 250 ml @ 0 mls/hr PROTOCOL PRN IV OTHER [SEE ORDER COMMENTS] 11/08/24 21:00 11/09/24 08:37 DC 11/08/24 21:15 7.5 MLS/HR Magnesium Hydroxide (Milk Of Magnesium 30ml) 30 ml DAILY PRN PO CONSTIPATION 11/07/24 14:00 12/07/24 13:59 Magnesium Sulfate 50 ml @ 12.5 mls/hr AD PRN IV MAG LEVEL LESS THAN 2.0 11/07/24 14:00 12/07/24 13:59 11/09/24 05:59 12.5 MLS/HR Metoprolol Tartrate (loprESSOR) 12.5 mg BID PO 11/09/24 09:00 12/09/24 08:59 Metoprolol Tartrate (loprESSOR) 50 mg BID PO 11/04/24 21:00 11/07/24 13:38 DC 11/06/24 20:38 50 MG Montelukast Sodium (SinguLAIR) 10 mg HS PO 11/08/24 21:00 12/08/24 20:59 11/08/24 21:10 10 MG Morphine Sulfate (morPHINE 2MG SYG) 0.5 mg Q2H PRN IV MODERATE PAIN (4-6) 11/07/24 14:00 11/08/24 13:59 DC Morphine Sulfate (morPHINE 2MG SYG) 1 mg Q2H PRN IV SEVERE PAIN (7-10) 11/07/24 14:00 11/08/24 13:59 DC Morphine Sulfate (morPHINE 4MG SYG) 2 mg Q4H PRN IVP SEVERE PAIN (7-10) 11/03/24 21:00 11/07/24 13:38 DC 11/04/24 15:49 2 MG Nitroglycerin (Nitroglycerin 1gm Oint) 0.5 inch Q8H TD 11/03/24 21:00 11/07/24 13:38 DC 11/07/24 05:46 0.5 INCH Nitroglycerin/ Dextrose 0 ml @ 0 mls/hr AD IV 11/07/24 14:00 11/10/24 13:59 Norepinephrine Bitartrate 250 ml @ 0 mls/hr AD PRN IV TITRATE 11/07/24 11:00 11/07/24 14:02 DC Norepinephrine Bitartrate 250 ml @ 0 mls/hr AD PRN IV POST-OP CARDIOVASCULAR ORDERS 11/07/24 14:00 11/12/24 13:59 11/08/24 12:32 9.4 MLS/HR Ondansetron HCl (zoFRAN 4MG INJ) 4 mg Q6H PRN IV NAUSEA/VOMITING 11/03/24 21:00 11/07/24 14:00 DC Ondansetron HCl (zoFRAN 4MG INJ) 4 mg Q6H PRN IV NAUSEA/VOMITING 11/07/24 14:00 12/07/24 13:59 11/09/24 15:47 4 MG Pantoprazole Sodium (PROTonix 40MG INJ) 40 mg BID IVP 11/08/24 09:00 12/08/24 08:59 11/09/24 08:15 40 MG Piperacillin Sod/ Tazobactam Sod (Zosyn 3.375gm+NS 50ml) 3.375 gm Q8H IV 11/09/24 10:00 11/09/24 09:38 DC Piperacillin Sod/ Tazobactam Sod (Zosyn 3.375gm+NS 50ml) 3.375 gm Q8H IV 11/09/24 10:00 11/19/24 09:59 11/09/24 09:49 3.375 GM Polyethylene Glycol (MIRalax 3350 17 GM POWD.PACK) 17 gm DAILY PO 11/09/24 09:00 12/09/24 08:59 11/08/24 10:02 17 GM Potassium Phosphate 250 ml @ 42 mls/hr AD PRN IV LOW PHOS LEVEL 11/07/24 14:00 12/07/24 13:59 11/08/24 07:22 42 MLS/HR Potassium Chloride 100 ml @ 100 mls/hr AD PRN IV HYPOKALEMIA 11/07/24 14:00 12/07/24 13:59 11/08/24 16:36 100 MLS/HR Propofol 100 ml @ 0 mls/hr AD PRN IV SEDATION 11/07/24 14:00 11/11/24 13:59 Sodium Bicarbonate (Sodium Bicarb 50meq 50ml Vial) 50 meq AD PRN IV OTHER[SEE DOSING INSTRUCTIONS] 11/07/24 14:00 11/10/24 13:59 11/08/24 00:54 50 MEQ Sodium Chloride 500 ml @ 0 mls/hr AD IV 11/07/24 14:00 12/07/24 13:59 Sodium Chloride 1,000 ml @ 10 mls/hr ONCE IV 11/07/24 14:00 11/08/24 13:59 DC 11/07/24 20:11 10 MLS/HR Sodium Chloride 1,000 ml @ 100 mls/hr Q10H IV 11/06/24 12:30 11/06/24 15:29 DC Sodium Chloride (NS Flush 10ml) 10 ml Q8H PRN IVP IV LINE FLUSH 11/07/24 14:00 12/07/24 13:59 Sucralfate (Carafate) 1 gm TID PO 11/08/24 21:00 12/08/24 20:59 11/09/24 13:17 1 GM Tramadol HCl (UltRAM) 25 mg Q6H PRN PO MODERATE PAIN (4-6) 11/07/24 14:00 11/09/24 08:37 DC Tramadol HCl (UltRAM) 50 mg Q6H PRN PO SEVERE PAIN (7-10) 11/07/24 14:00 11/09/24 08:37 DC 11/08/24 23:30 50 MG Vitamin B Complex (Vitamin B-12) 1,000 mcg DAILY IM 11/07/24 09:00 11/13/24 08:59 11/09/24 08:16 1,000 MCG DIAGNOSTICS / RADIOLOGY: [place] [address] [place] [address] IMAGING REPORT Signed PATIENT: CLARE VALADEZ MR#: [id number] : 1955 SEX: M AGE: 68 LOCATION: 2CV ORDER 230 STATUS: ADM IN REPORT#: [id number] SERVICE 0400 REASON: s/p CABG ORDERING PHYSICIAN: JLUIS MENDOZA MD PROCEDURE: CXR1VW - CHEST 1VW EXAM: CR Chest, 1 View. CLINICAL HISTORY: s/p CABG COMPARISON: Radiograph dated November 07, 2024 Findings: AP view of the chest is submitted. Endotracheal tube has been removed. Right IJ central venous catheter tip is unchanged in position. External pacer is unchanged in position. Left chest tube projects of the left hemithorax. Interval improved aeration within the left perihilar and left basilar regions. Trace left pleural effusion. No pneumothorax. Heart size is stable. Mild central pulmonary vascular congestion. IMPRESSION: 1. Improved aeration within the left perihilar and left basilar regions. 2. Right IJ central venous catheter, external pacer, and left chest tube in place. /[place] DICTATED BY: MOLLY PATTERSON Jr., MD DATE: 11/09/241031 ELECTRONICALLY SIGNED BY: MOLLY PATTERSON Jr., MD DATE: 11/09/241031 ASSESSMENT: Coronary artery disease, POA, s/p CABG 3v and redo sternotomy with redo of graft failure now s/p CABG with 4v Hyperlipidemia, POA Grave's disease, POA Peripheral artery disease, suspected Carotid artery stenosis PLAN: Coronary artery disease, POA s/p CABG 3v and redo sternotomy with redo of graft failure now s/p CABG with 4v * Administer aspirin 325 mg p.o. now and then continue aspirin 81 mg p.o. daily * Troponin every 6 hours, serial troponin levels are 10-21-1111. * Supplemental oxygen as needed to maintain SpO2 greater than 94% * Monitor for recurrence of chest pain, arrhythmias, or hemodynamic changes * Electrocardiogram was done which is normal. * A 2D Echo has been ordered due to patients history of chest pain on exertion and rest. * A cardiology consult has been placed for evaluation of CAD in patient with exertional chest pain and vascular disease. 11/04/24 * Echocardiogram was done which revealed aortic valve: trileaflet, mildly sclerotic, and opens well. * Pending Coronary CTA reports. * Lipid panels has been ordered to assess Cardiovascular risks. Results unremarkable. * In coronary CT angiography there is mixed calcified and noncalcified plaque in the proximal LAD with 80-90% stenosis. Left circumflex coronary artery: Normal caliber, nondominant and gives rise to a large OM branch. There is mixed calcified and noncalcified plaque in the mid LCx with 80-90% stenosis. * CAD-RAD of 4B. * Left heart catheterization with selective right and left coronary angiography was performed which showed critical left main disease. Severe ostial RCA stenosis. 11/06/24 * He complaints of headache 8/10 of intensity after the administration of Nitroglycerin. Tylenol has been administered. Closely monitoring the patient. * Cardiac catheterization demonstrated a very tight left main lesion and the patient is referred for surgical revascularization. * Patient is POD 2 S/P CABG, patient is being managed in the ICU per protocol. * Recent ABG shows lactic acid is 1.63. * We will continue to following Cardiology and critical care recommendations. Peripheral vascular disease, Suspected * Patient has history of exertional bilateral leg pain * Diminished peripheral pulses * A SERA has been ordered due to the patients complaint of bilateral lower extremity claudication, and numbness/tingling in bilateral lower extremities. * Clear aspirin 81 mg daily and statin 40mg * Encouraged supervised exercise therapy for claudication * Counseled on continued smoking cessation 11/04/24 Peripheral Neuropathy * Vitamin B12 has been ordered to rule out peripheral neuropathy.11/05/24 * Complained of numbness and tingling in his limbs. * Vitamin B12 level was measured which showed 173L. * Patient has been started on vitamin B12 supplement 1000 mcg for 6 days. Carotid artery stenosis * Presence of bilateral carotid bruit on exam, suspicion for significant stenosis * Carotid Duplex ultrasound has been done, awaiting reports * Risk factor modification: Smoking cessation, BP control, glycemic control. 11/04/24 * Carotid artery ultrasound showed Bilateral ICA/CCA ratio more than 4.0 suggesting more than 70% stenosis. 11/05/24 Hyperlipidemia * Continue home statin therapy atorvastatin 40 mg * Reinforce low-cholesterol, heart healthy diet (limit saturated fats, increase fiber, fruits and vegetables) * Encouraged regular physical activity as tolerated * Monitor lipid panel * Outpatient follow up with PCP/Cardiology for long-term lipid management and cardiovascular risks reduction Supportive measures * Start patient on GI prophylaxis * DVT prophylaxis * Monitor morning labs CBC and BMP daily Hypothyroidism * Continue home medication of Synthroid * TSH 1.33. ATTESTATION BY PHYSICIAN I have seen and examined the patient. I reviewed the documentation, medical decision making, and treatment plan as noted by the resident provider above. I agree with the findings and plan of care. Isiah Mejia MD, AKSHAY MD Nov 09, 2024 16:59
--- NOTE | 2024-11-09 17:45 | PN ---
[facility] CARDIOLOGY PROGRESS NOTE Date Patient Seen: Nov 09, 2024 Time of Visit: 17:40 Interval History: [s/p CABG 11/07. Overnight his Impella setting was increased to P-8 . Chest output 300 mL in the past 24 hours, overnight urine output 3281, there was a concern for broncho aspiration, chest x-ray today shows mild interstitial infiltrates with no pleural effusions, currently denying any cardiac symptoms or anginal equivalents Physical Examination: GENERAL: No acute distress. HEAD: Normal with no signs of head trauma. EYES: PERRLA, EOMI, conjunctiva and sclera normal. ENT: Hearing grossly intact, normal oropharynx. NECK: Supple without JVD. There is no tenderness, lymphadenopathy, or masses. No thyromegaly. Normal carotid upstrokes without bruits. LUNGS: Clear breath sounds bilaterally. No wheezes, or rhonchi. HEART: Normal rate and rhythm. Normal S1 and S2 without murmurs, gallop or rub. VASC: Peripheral pulses +2 bilaterally. ABD: Bowel sounds normal, soft, nontender, no masses, no organomegaly. No audible bruits. : Not examined LYMPH: No lymphadenopathy noted. EXT: No clubbing, cyanosis or edema. SKIN: No rashes or lesions noted. NEURO: Awake, alert, and oriented x3. No focal sensory or strength deficits noted. Laboratory: [ ] Hematology Labs: Test 11/09/24 04:16 11/08/24 04:53 Range/Units White Blood Count 19.1 H 4.8-10.8 K/uL Red Blood Count 3.41 L 4.50-6.20 MIL/uL Hemoglobin 11.1 L 14.0-18.0 g/dL Hematocrit 33.5 L 42-54 % Mean Corpuscular Volume 98.2 79-99 fL Mean Corpuscular Hemoglobin 32.6 27.0-33.0 pg Mean Corpuscular Hemoglobin Concent 33.1 32.0-36.0 g/dL Red Cell Distribution Width 14.5 11.0-15.5 % Platelet Count 115 #L 130-400 K/uL Mean Platelet Volume 11.4 H 7.5-10.5 fL Nucleated Red Blood Cells 0.0 0.0-0.19 % Immature Granulocyte % (Auto) 0.6 0-1 % Neutrophils (%) (Auto) 86.5 H 40.0-77.0 % Lymphocytes (%) (Auto) 5.0 L 21.0-51.0 % Monocytes (%) (Auto) 7.8 3.0-13.0 % Eosinophils (%) (Auto) 0.0 0.0-8.0 % Basophils (%) (Auto) 0.1 0.0-5.0 % Neutrophils # (Auto) 13.8 H 1.8-7.7 K/uL Lymphocytes # (Auto) 0.8 L 1.0-4.8 K/uL Monocytes # (Auto) 1.2 H 0.1-1.0 K/uL Eosinophils # (Auto) 0.00 0.00-0.70 K/uL Basophils # (Auto) 0.02 0.00-0.20 K/uL Absolute Immature Granulocyte (auto 0.10 0-1 K/uL White Cell Morphology Comment See comments Chemistry Labs: Test 11/09/24 05:53 11/09/24 04:16 11/08/24 04:53 11/07/24 19:30 Range/Units Whole Blood Glucose 108 70-110 MG/DL Sodium Level 154 H 136-145 mmol/L Potassium Level 4.1 3.5-5.1 mmol/L Chloride Level 113 H 101-111 mmol/L Carbon Dioxide Level 31 21-32 mmol/L Blood Urea Nitrogen 12 7-18 mg/dL Creatinine 1.2 0.5-1.3 mg/dL Glomerular Filtration Rate Calc 66 >90 mL/min Random Glucose 122 H 70-105 mg/dL Total Calcium 8.4 L 8.5-10.1 mg/dL Phosphorus Level 3.8 2.5-4.9 mg/dL Magnesium Level 1.90 1.80-2.40 mg/dL Total Bilirubin 0.8 0.2-1.0 mg/dL Aspartate Amino Transf (AST/SGOT) 869 *H 10-37 U/L Alanine Aminotransferase (ALT/SGPT) 325 H 12-78 U/L Alkaline Phosphatase 56 50-136 U/L Total Protein 4.9 L 6.0-8.3 g/dL Albumin 2.5 L 3.5-5.0 g/dL Ionized Calcium 1.25 1.15-1.33 MMOL/L Coagulation Labs: Test 11/09/24 04:16 Range/Units Prothrombin Time 11.4 9.6-11.6 SEC Prothromb Time International Ratio 1.08 0.85-1.15 Activated Partial Thromboplast Time 27.3 26.3-35.5 SEC Diagnostics / Radiology: [Copy/Paste Echos/Imaging Report here] Impression and Plan: [Chest pain Hyperlipidemia CAD s/p PTCA to unknown vessel approximately 30 years ago Ex-smoker of 1 PPD with cessation 2 months ago Graves disease #CAD -s/p CABG 3v c/b bradycardia and redo sternotomy with redo of graft failure now s/p CABG with 4v Cardiac enzymes negative x5. EKG demonstrated normal sinus rhythm with heart rate of 67bpm, no acute ischemia noted. -2Decho results LVEF is 60-65%. no wall motion or valvular abnormalities. -CCTA There is mixed calcified and noncalcified plaque in the proximal LAD with 80-90% stenosis. Left circumflex coronary artery: Normal caliber, nondominant and gives rise to a large OM branch. There is mixed calcified and noncalcified plaque in the mid LCx with 80-90% stenosis. CAD-RAD of 4 -LHC with multivessel CAD including left main -Chest output 300 mL in the past 24 hours, overnight urine output 3281 -Continue ASA 81 mg daily atorvastatin 40 mg daily , lopressor 12.5 mg every 12 hrs, lasix 20 mg IV bid -Defer any P2Y12 inhibitors as patient is s/p CABG with chest tubes in place -there was a concern for BRCA aspiration yesterday, chest x-ray today shows mild interstitial infiltrates with no pleural effusion -rest of care per CV surgery -PT/OT #Carotid arterial Disease carotid US 11/05: Mild intimal thickening in the bilateral carotid arteries and their branches. Bilateral ICA/CCA ratio is more than 4.0 suggesting more than 70% stenosis. Raised velocities in the bilateral external and internal carotid arteries. Recommend CT/MR angiogram when stable from surgical standpoint -aspirin , statin Thank you for this consult cardiology will continue to follow along. ] ATTESTATION BY PHYSICIAN I have seen and examined the patient, reviewed the above documentation, participated in medical decision making, made necessary modifications, and agree with the treatment plan as documented by my mid-level provider above. MD JUAN Caldwell JAMES R MD Nov 09, 2024 17:45
--- NOTE | 2024-11-09 19:48 | HMCIMG ---
EXAM: CR Chest, 1 View. CLINICAL HISTORY: s/p CABG COMPARISON: None provided. FINDINGS: LUNGS: There is no mass, infiltrate, or acute pulmonary abnormality. PLEURAL SPACES: No evidence of pleural effusion or pneumothorax. MEDIASTINUM: The cardiomediastinal silhouette is within normal limits. BONES: No aggressive appearing osseous lesion seen. MISCELLANEOUS: Introducer SVC Nasogastric tube below diaphragm Chest tube on the left Slight left basilar postoperative changes IMPRESSION: 1. Introducer SVC 2. Nasogastric tube below diaphragm 3. Chest tube on the left 4. Slight left basilar postoperative changes /[place]
[2024-11-09 21:16] LABS: CREATININE 1.2 mg/dL (0.5-1.3); GLOMERULAR FILTR. RATE CALC 66.0 mL/min (>90); GLUCOSE,RANDOM 153.0 mg/dL (70-105); SODIUM SERUM 149.0 mmol/L (136-145); UREA NITROGEN, BLOOD 16.0 mg/dL (7-18)
--- NOTE | 2024-11-09 21:51 | PRN ---
Procedure Note Date: 11/09/24 Time: 10:00 Procedure: Arterial line This is a procedure note. Procedure performed: 1. Arterial line insertion. 2. Intraoperative Ultrasound Diagnosis: hypotension, hypoxic respiratory failure Site: Right radial artery. Description of procedure: Consent obtained/ waived, procedure performed emergently. Hand hygiene. Time out done. Chlorhexidine was used to prepare the skin. Intraoperative US was used to localize vascular structure and intra-arterial access of guidewire. 20g Arterial line inserted with Seldinger technique on site specified above. Line secured at the hub. Patient tolerated procedure well. No immediate complications. EBL: 0.5 cc Time spent doing procedures heparin from time spent on critical care time evaluating patient. AGNIESZKA AMAYA [facility] Nov 09, 2024 21:51
[2024-11-09 23:23] LABS: ABG BASE EXCESS 4.8 mmol/L (-2.0-3.0); ABG HCO3 28.3 mmol/L (21.0-28.0); ABG OXYGEN SATURATION 94.3 % (94.0-98.0); ABG PCO2 38 mmHg (35-48); ABG PH 7.494 (7.350-7.450); CARBON MONOXIDE 0.6 % (0.5-1.5); DEVICE COMMENT ALINE CHRIS; PO2, ARTERIAL BG 71.8 mmHg (83.0-108.0); TEMPERATURE, CELSIUS BG 37.0 CELSIUS (35.5-37.0); VENT MODE, BG OXY (ROOM AIR)
[2024-11-10] VITALS (104 sets, daily range): BP systolic 0–263; BP diastolic 0–261; PULSE 61–88; RESP 15–160; TEMP 97.7–98.6; O2SAT 95–100
[2024-11-10] MEDS: 0.9% NACL 500ML IV.SOLN 500 ML IV SCH (00:41)
[2024-11-10 03:47] LABS: ABG BASE EXCESS 8.9 mmol/L (-2.0-3.0); ABG HCO3 33.0 mmol/L (21.0-28.0); ABG OXYGEN SATURATION 94.2 % (94.0-98.0); ABG PCO2 44 mmHg (35-48); ABG PH 7.497 (7.350-7.450); CARBON MONOXIDE 0.5 % (0.5-1.5); PO2, ARTERIAL BG 69.2 mmHg (83.0-108.0); TEMPERATURE, CELSIUS BG 37.0 CELSIUS (35.5-37.0); VENT MODE, BG OXY 12L (ROOM AIR)
[2024-11-10 04:03] LABS: NUCLEATED RED BLOOD CELLS 0.0 % (0.0-0.19); PLATELET COUNT (AUTO) 85.0 K/uL (130-400); RED BLOOD CELL COUNT(AUTO) 3.1 MIL/uL (4.50-6.20); RED CELL DISTRIBUTION WIDTH 14.0 % (11.0-15.5); WHITE BLOOD COUNT (AUTO) 14.7 K/uL (4.8-10.8)
[2024-11-10 04:14] LABS: INR 1.03 (0.85-1.15)
[2024-11-10 04:25] LABS: ASPARTATE AMINOTRANSFERASE 156.0 U/L (10-37); CREATININE 1.2 mg/dL (0.5-1.3); GLOMERULAR FILTR. RATE CALC 66.0 mL/min (>90); GLUCOSE,RANDOM 142.0 mg/dL (70-105); PHOSPHORUS 3.7 mg/dL (2.5-4.9); SODIUM SERUM 147.0 mmol/L (136-145); TOTAL PROTEIN, SERUM 5.0 g/dL (6.0-8.3); UREA NITROGEN, BLOOD 16.0 mg/dL (7-18)
[2024-11-10 07:15] LABS: ABG BASE EXCESS 6.2 mmol/L (-2.0-3.0); ABG HCO3 30.9 mmol/L (21.0-28.0); ABG OXYGEN SATURATION 97.5 % (94.0-98.0); ABG PCO2 45 mmHg (35-48); ABG PH 7.451 (7.350-7.450); CARBON MONOXIDE 0.4 % (0.5-1.5); DEVICE COMMENT ALINE; PO2, ARTERIAL BG 98.8 mmHg (83.0-108.0); TEMPERATURE, CELSIUS BG 37.0 CELSIUS (35.5-37.0); VENT MODE, BG 12 L OXY (ROOM AIR)
[2024-11-10] MEDS: ENOXAPARIN SODIUM 30 MG/0.3 ML SQ SCH (08:14)
--- NOTE | 2024-11-10 08:52 | PN ---
[facility] CARDIOLOGY PROGRESS NOTE Date Patient Seen: Nov 10, 2024 Time of Visit: 08:47 Interval History: [s/p CABG 11/07. No acute events overnight. Overnight urine output 3905 mL, net-1529 mL. He has been endorsing pain in his left abdomen area, review of telemetry shows normal sinus rhythm, recent noted increase in LFTs, the patient has been taken off statins, renal function is stable, currently on minimal pressor support, Impella at P-8 . Physical Examination: GENERAL: No acute distress. HEAD: Normal with no signs of head trauma. EYES: PERRLA, EOMI, conjunctiva and sclera normal. ENT: Hearing grossly intact, normal oropharynx. NECK: Supple without JVD. There is no tenderness, lymphadenopathy, or masses. No thyromegaly. Normal carotid upstrokes without bruits. LUNGS: Clear breath sounds bilaterally. No wheezes, or rhonchi. HEART: Normal rate and rhythm. Normal S1 and S2 without murmurs, gallop or rub. VASC: Peripheral pulses +2 bilaterally. ABD: Bowel sounds normal, soft, nontender, no masses, no organomegaly. No audible bruits. : Not examined LYMPH: No lymphadenopathy noted. EXT: No clubbing, cyanosis or edema. SKIN: No rashes or lesions noted. NEURO: Awake, alert, and oriented x3. No focal sensory or strength deficits noted. Laboratory: [ ] Hematology Labs: Test 11/10/24 03:51 Range/Units White Blood Count 14.7 H 4.8-10.8 K/uL Red Blood Count 3.10 L 4.50-6.20 MIL/uL Hemoglobin 10.1 L 14.0-18.0 g/dL Hematocrit 31.2 L 42-54 % Mean Corpuscular Volume 100.6 H 79-99 fL Mean Corpuscular Hemoglobin 32.6 27.0-33.0 pg Mean Corpuscular Hemoglobin Concent 32.4 32.0-36.0 g/dL Red Cell Distribution Width 14.0 11.0-15.5 % Platelet Count 85 #L 130-400 K/uL Mean Platelet Volume 11.5 H 7.5-10.5 fL Nucleated Red Blood Cells 0.0 0.0-0.19 % Chemistry Labs: Test 11/10/24 03:51 11/09/24 05:53 Range/Units Sodium Level 147 H 136-145 mmol/L Potassium Level 4.1 3.5-5.1 mmol/L Chloride Level 110 101-111 mmol/L Carbon Dioxide Level 31 21-32 mmol/L Blood Urea Nitrogen 16 7-18 mg/dL Creatinine 1.2 0.5-1.3 mg/dL Glomerular Filtration Rate Calc 66 >90 mL/min Random Glucose 142 H 70-105 mg/dL Total Calcium 8.3 L 8.5-10.1 mg/dL Phosphorus Level 3.7 2.5-4.9 mg/dL Magnesium Level 2.20 1.80-2.40 mg/dL Total Bilirubin 0.5 0.2-1.0 mg/dL Aspartate Amino Transf (AST/SGOT) 156 H 10-37 U/L Alanine Aminotransferase (ALT/SGPT) 95 H 12-78 U/L Alkaline Phosphatase 55 50-136 U/L Total Protein 5.0 L 6.0-8.3 g/dL Albumin 2.2 L 3.5-5.0 g/dL Whole Blood Glucose 108 70-110 MG/DL Coagulation Labs: Test 11/10/24 03:51 Range/Units Prothrombin Time 10.9 9.6-11.6 SEC Prothromb Time International Ratio 1.03 0.85-1.15 Activated Partial Thromboplast Time 25.5 L 26.3-35.5 SEC Diagnostics / Radiology: [Copy/Paste Echos/Imaging Report here] Impression and Plan: [Chest pain Hyperlipidemia CAD s/p PTCA to unknown vessel approximately 30 years ago Ex-smoker of 1 PPD with cessation 2 months ago Graves disease #CAD -s/p CABG 3v c/b bradycardia and redo sternotomy with redo of graft failure now s/p CABG with 4v Cardiac enzymes negative x5. EKG demonstrated normal sinus rhythm with heart rate of 67bpm, no acute ischemia noted. -2Decho results LVEF is 60-65%. no wall motion or valvular abnormalities. -CCTA There is mixed calcified and noncalcified plaque in the proximal LAD with 80-90% stenosis. Left circumflex coronary artery: Normal caliber, nondominant and gives rise to a large OM branch. There is mixed calcified and noncalcified plaque in the mid LCx with 80-90% stenosis. CAD-RAD of 4 -LHC with multivessel CAD including left main -Overnight urine output 3905 mL, net-1529 mL. -Continue ASA 81 mg daily atorvastatin 40 mg daily , lopressor 12.5 mg every 12 hrs, lasix 20 mg IV bid -Continue [id number] mg daily -we will continue to wean off pressors. Impella currently at P-8 -patient is currently in normal sinus rhythm, we will defer the use of amiodarone at this time -due to the patient's elevated LFTs statins are being held. LFTs continue impr oving. -once the patient is off pressor support we will initiate beta-blockers -rest of care per CV surgery -PT/OT #Carotid arterial Disease carotid US 11/05: Mild intimal thickening in the bilateral carotid arteries and their branches. Bilateral ICA/CCA ratio is more than 4.0 suggesting more than 70% stenosis. Raised velocities in the bilateral external and internal carotid arteries. Recommend CT/MR angiogram when stable from surgical standpoint -aspirin , statin Thank you for this consult cardiology will continue to follow along. ] ATTESTATION BY PHYSICIAN I have seen and examined the patient, reviewed the above documentation, participated in medical decision making, made necessary modifications, and agree with the treatment plan as documented by my mid-level provider above. MD JUAN Caldwell JAMES R MD Nov 10, 2024 08:52
--- NOTE | 2024-11-10 11:03 | PN ---
SUBJECTIVE: The patient is postop day #2 from an Impella supported coronary artery bypass grafting. The patient remains on a lidocaine drip at 1 mg/min and a Levophed drip at 5 mg/min. The patient's Impella is set at P4 giving the patient around 3 liters per minute of flow. OBJECTIVE: VITAL SIGNS: Reveal a pulse of 99, blood pressure is 98/62, respirations 17, oxygen saturation with his oxygen off is 86%. HEENT: Reveals normocephalic, atraumatic. He should be wearing face mask oxygen, although the patient has taken it off temporarily. HEART: S1, S2 and tachycardic. He has a left cervical ____ Impella catheter. CHEST: His sternal wound is bandaged. His chest tubes are in place with serosanguineous drainage. ABDOMEN: Reveals [id number] obesity. GENITOURINARY: He has a Daniel catheter in his bladder. EXTREMITIES: He has a left femoral art line and central venous line. He has a left radial art line. He has SCDs and LYNDA stockings on his lower extremities. LABORATORY DATA: His hemoglobin is 11.3 this morning. ASSESSMENT AND PLAN: Status post coronary artery bypass grafting and requiring Impella support. We will increase Impella to P8, giving a 4.5 liters per minute flow while discontinuing his lidocaine and weaning him off the Levophed drip. We will also begin midodrine 10 mg t.i.d. Keep chest tubes in place until the patient is able to sit up into a bedside chair. Continue aspirin, Lasix, and Plavix. Postoperative acute pulmonary insufficiency secondary to thoracic surgery and pulmonary edema. Continue to supplement oxygen and maintain oxygen saturation greater than 90%. Hypercholesterolemia. Lipitor is on hold due to elevated liver function tests. This will need to be resumed once these come down. Deep venous thrombosis prophylaxis. Continue sequential compression devices to lower extremities. Time spent 30 minutes. The patient is critically ill in the ICU. TID: [id number] RECEIPT: [id number]
[2024-11-10 14:38] LABS: ABG BASE EXCESS 6.5 mmol/L (-2.0-3.0); ABG HCO3 31.0 mmol/L (21.0-28.0); ABG OXYGEN SATURATION 97.5 % (94.0-98.0); ABG PCO2 44 mmHg (35-48); ABG PH 7.462 (7.350-7.450); CARBON MONOXIDE 0.4 % (0.5-1.5); DEVICE COMMENT LB; PO2, ARTERIAL BG 102.0 mmHg (83.0-108.0); TEMPERATURE, CELSIUS BG 37.0 CELSIUS (35.5-37.0); VENT MODE, BG 12L OXY (ROOM AIR)
--- NOTE | 2024-11-10 15:14 | PN ---
[facility] PROGRESS NOTE Date of Service: Nov 10, 2024 Time of Service: 14:59 SUBJECTIVE: Mr. Valadez a 68-year-old male that was seen and examined today on 11/03/2024. Patient reports that he came to the emergency department with a chief complaint of chest pain. Onset was two or three years ago. He had similar repeated episodes months back which resolved on its own. Today's episode began at 11:00 a.m. Location is midsternal. Duration is on and off. Character is described as "neck someone is pushing a knuckle into the center of my chest. The chest pain did not radiate to shoulder, neck or jaw. "There was no alleviating factors. There was no aggravating factors. Patient reports that symptoms seemingly resolve on their own. He denies nausea, vomiting, fever and any other associated symptoms. Patient denies any associated shortness of breath. Patient has a past medical history of hyperlipidemia and Graves disease. He has been taking atorvastatin and Synthroid as his home medications. Today in the emergency department WBC 5.8, hemoglobin 12.9 platelets 197. His chemistries were within normal limits sodium 140, potassium 4.2, blood urea nitrogen 15 and creatinine 1.0. His electrocardiogram showed normal sinus rhythm. Patient will be admitted for further evaluation and related recommendations in Med-Surg. 11/04/24 Patient was evaluated at the bedside in ED-09. He reports that he is having chest pain that comes and goes. The patient reports having 2 episodes of chest pain in the last hour. He denies associated symptoms such as shortness of breath, palpitation, diaphoresis, dizziness, nausea or syncope. He does however complain of muscle pain in his lower limbs described as a dull aching discomfort that begins in the hip region that is worsened with movement. The patient complains of tingling and numbness in his feet bilaterally. No fever, chills or recent infection reported. Appetite and oral intake are normal. No other acute complaints at this time. On physical exam, a systolic murmur was auscultated over the aortic area. Bilateral carotid bruits are present. Lower extremities are cool to the touch with diminished pedal pulses. Patient reports bilateral leg muscle pain with exertion (suggestive of claudication), and chronic numbness and tingling in the feet. Patient reports recently quitting smoking tobacco for 2 months. He had a 1 pack a day smoking history since 1968. The [facility] and denies following with a nitro man. The patient says his chest pain has been ongoing for the past 3 years, and that it gets worse with exertion and at rest. 11/05/24 Patient was evaluated at the bedside room 231. He was hemodynamically stable. Hi symptoms has improved significantly. He doesn't complain of chest pain, shortness of breath and any other associated symptoms. Echocardiogram was done which revealed aortic valve: trileaflet, mildly sclerotic, and opens well. Carotid artery ultrasound showed Bilateral ICA/CCA ratio more than 4.0 suggesting more than 70% stenosis. 11/06/24 Patient was evaluated at the bedside room 231. He was hemodynamically stable. Hi symptoms has improved significantly. He doesn't complain of chest pain, shortness of breath and any other associated symptoms. In coronary CT angiography there is mixed calcified and noncalcified plaque in the proximal LAD with 80-90% stenosis. Left circumflex coronary artery: Normal caliber, nondominant and gives rise to a large OM branch. There is mixed calcified and noncalcified plaque in the mid LCx with 80-90% stenosis. CAD-RAD of 4B. Left heart catheterization with selective right and left coronary angiography was performed which showed critical left main disease. 11/07/24 Patient was evaluated at the bedside room 231. He was hemodynamically stable. He doesn't complain of chest pain, shortness of breath and any other associated symptoms. He complaints of headache 8/10 of intensity after the administration of Nitroglycerin. Cardiac catheterization demonstrated a very tight left main lesion and the patient is referred for surgical revascularization. As per Dr Meza: Surgery is planned for today. 11/08/24: Patient was seen and evaluated this morning at bedside. The patient is POD 1 s/p CABG. Patient is currently being managed in the ICU. The patients most recent ABG shows a pH of 7.43, ABG PCO2 47, ABG PO2 77.9, ABG HCO3 30.8. Recent ABG shows improving lactic acid, from 8 to 3.85. The patients chemistry reveals a sodium level 157, potassium level 3.4, creatinine 1.9, BUN 19, GFR 38, phosphorous 2.2. Liver enzymes are trending up, with an ALT level at 325 and an AST level at 869. The patients home medication of Synthroid has been restarted. Chest x-ray ordered today, results pending. We will continue to follow recommendations from critical care team, and cardiology. 11/09/2024: Patient is seen and evaluated in the room 213. The patient is POD 2 s/p CABG. Patient is currently being managed in the ICU. He is complaining of pain. His vitals are in the normal range. His Hb is 11.1, WBC is 19.1, Plt is 115, sodium is 154, chloride is 113, glucose is 122. His recent ABG shows that pH is 7.472, pO2 is 80.1, bicarb is 30.4, Hb is 11.4, lactic acid is 1.63. His chest X-ray on 11/08 showed improved aeration within the left perihilar and left basilar regions. As per nurse he is having intervention confusion, stopped lidocaine and they also weaning on pressors norepinephrine and epinephrine. The drain output from left anterior chest is 20ml, mediastinal lateral is 160ml, mediastinal mediastinal is 300ml, right anterior chest is 160 ml. We will continue to follow recommendations from critical care team, and cardiology. 11/10/2024: Patient was seen and evaluated this morning at bedside. The patient is POD 3 s/p CABG. Patient is currently being managed in the ICU. He is not having any symptoms today. His vitals are in the normal range. Her labs are normal except for Hb is 10.1, WBC is 14.7, plt is 85, sodium is 147, AST is 156, ALT is 95, APTT is 25.5. ABG shows that his pH is 7.4, lactate is 1.22, bicarb is 31. The drain output from left anterior chest is 170 ml, mediastinal mediastinal is 130ml. We will continue to follow recommendations from critical care team, and cardiology. REVIEW OF SYSTEMS CONSTITUTIONAL: No fever, chills, or night sweats. NEUROLOGICAL: Headache 8/10 intensity, no sensory and motor deficit. CARDIOVASCULAR: Denies any exertional angina, dyspnea on exertion, palpitations. PULMONARY: Denies any shortness of breath, cough, phlegm/sputum, hemoptysis, pleuritic chest pain. GASTROINTESTINAL: Denies nausea, vomiting. Denies pain, tenderness around the abdomen. GENITOURINARY: Denies frequency, urgency, nocturia, hematuria or incontinence. PHYSICAL EXAM GENERAL APPEARANCE: The patient is alert, awake and oriented and bedbound. NEUROLOGICAL: No sensory and motor deficits. CHEST: left anterior chest , mediastinal mediastinal drains are present. Normal chest expansion. LUNGS: Normal vesicular breath sound. Absence of any rales, rhonchi or any wheezing. CARDIOVASCULAR: Systolic murmur heard over aortic area. Bilateral carotid bruits heard. No JVD. ABDOMEN: Soft nontender, and nondistended. There is no rebound, voluntary guarding, or rigidity. No abdominal bruit heard. GENITOURINARY: No suprapubic tenderness. No costovertebral angle tenderness. EXTREMITIES: Limbs are non-edematous. Vital Signs (last 8hr) Date Time Temp Pulse Resp B/P (MAP) Pulse Ox O2 Delivery O2 Flow Rate FiO2 11/10/24 12:45 80 21 117/106 (110) 100 128/87 (101) 11/10/24 12:30 88 23 101/93 (96) 96 129/59 (82) 11/10/24 12:15 80 27 102/91 (95) 99 113/82 (92) 11/10/24 12:00 79 22 103/97 (99) 97 116/75 (89) 11/10/24 12:00 100 Nasal Cannula* 12 N/A N/C Oxymizer Hi LPM* 11/10/24 12:00 98.6 Oxymizer 12.0 11/10/24 11:45 80 19 118/104 (109) 98 134/85 (101) 11/10/24 11:30 79 19 120/107 (111) 100 131/90 (104) 11/10/24 11:15 79 22 119/105 (110) 100 137/89 (105) 11/10/24 11:09 81 18 11/10/24 11:09 81 18 N/Cannula Oximizer Hi LPM 12.0 11/10/24 11:00 80 22 118/101 (107) 100 128/73 (91) 11/10/24 10:45 80 22 112/95 (101) 99 117/82 (94) 11/10/24 10:30 81 22 118/103 (108) 100 120/81 (94) 11/10/24 10:15 81 22 127/110 (116) 99 103/73 (83) 11/10/24 10:00 80 22 124/109 (114) 100 127/87 (100) 11/10/24 09:45 85 22 121/109 (113) 100 130/91 (104) 11/10/24 09:30 84 22 128/116 (120) 99 134/84 (101) 11/10/24 09:15 83 22 128/112 (117) 100 128/90 (103) 11/10/24 09:00 80 21 125/115 (118) 100 123/80 (94) 11/10/24 08:45 82 26 117/108 (111) 98 126/91 (103) 11/10/24 08:30 81 17 124/113 (117) 97 127/98 (108) 11/10/24 08:15 84 22 127/120 (122) 99 128/83 (98) 11/10/24 08:00 100 Nasal Cannula* 12 N/A N/C Oxymizer Hi LPM* 11/10/24 08:00 82 20 93/81 (85) 99 111/58 (75) 11/10/24 07:45 80 17 103/88 (93) 98 113/69 (84) 11/10/24 07:30 84 19 113/100 (104) 93 121/83 (96) 11/10/24 07:29 98.6 Oxymizer 12.0 11/10/24 07:15 81 16 128/127 (127) 98 101/75 (84) 11/10/24 07:00 82 17 100/93 (95) 96 LABS: Laboratory: Test 11/10/24 14:37 11/10/24 03:51 11/09/24 05:53 Range/Units Blood Gas Specimen Type Arterial Arterial Blood pH 7.462 H 7.350-7.450 Arterial Blood Partial Pressure CO2 44 35-48 mmHg Arterial Blood Partial Pressure O2 102.0 83.0-108.0 mmHg Arterial Blood HCO3 31.0 H 21.0-28.0 mmol/L Arterial Blood Oxygen Saturation 97.5 94.0-98.0 % Arterial Blood Base Excess 6.5 H -2.0-3.0 mmol/L Hemoglobin (Blood Gas) 11.2 L 13.5-17.5 g/dL Sodium (Blood Gas) 142 136-145 MMOL/L Bedside Potassium (Blood Gas) 3.8 3.4-4.5 MMOL/L Bedside Chloride (Blood Gas) 104 98-107 MMOL/L Bedside Glucose (Blood Gas) 131 H 65-95 MG/DL Bedside Ionized Calcium (Blood Gas) 1.10 L 1.15-1.33 MMOL/L Bedside Lactic Acid (Blood Gas) 1.22 H 0.36-0.75 MMOL/L Blood Gas Temperature 37.0 35.5-37.0 CELSIUS Blood Gas Flow-by 12.00 0.00-15.00 L/min Blood Gas Vent Mode 12L OXY ROOM AIR FiO2 72.0 % Blood Gas Specimen Comment LB White Blood Count 14.7 H 4.8-10.8 K/uL Red Blood Count 3.10 L 4.50-6.20 MIL/uL Hemoglobin 10.1 L 14.0-18.0 g/dL Hematocrit 31.2 L 42-54 % Mean Corpuscular Volume 100.6 H 79-99 fL Mean Corpuscular Hemoglobin 32.6 27.0-33.0 pg Mean Corpuscular Hemoglobin Concent 32.4 32.0-36.0 g/dL Red Cell Distribution Width 14.0 11.0-15.5 % Platelet Count 85 #L 130-400 K/uL Mean Platelet Volume 11.5 H 7.5-10.5 fL Nucleated Red Blood Cells 0.0 0.0-0.19 % Prothrombin Time 10.9 9.6-11.6 SEC Prothromb Time International Ratio 1.03 0.85-1.15 Activated Partial Thromboplast Time 25.5 L 26.3-35.5 SEC Sodium Level 147 H 136-145 mmol/L Potassium Level 4.1 3.5-5.1 mmol/L Chloride Level 110 101-111 mmol/L Carbon Dioxide Level 31 21-32 mmol/L Blood Urea Nitrogen 16 7-18 mg/dL Creatinine 1.2 0.5-1.3 mg/dL Glomerular Filtration Rate Calc 66 >90 mL/min Random Glucose 142 H 70-105 mg/dL Total Calcium 8.3 L 8.5-10.1 mg/dL Phosphorus Level 3.7 2.5-4.9 mg/dL Magnesium Level 2.20 1.80-2.40 mg/dL Total Bilirubin 0.5 0.2-1.0 mg/dL Aspartate Amino Transf (AST/SGOT) 156 H 10-37 U/L Alanine Aminotransferase (ALT/SGPT) 95 H 12-78 U/L Alkaline Phosphatase 55 50-136 U/L Total Protein 5.0 L 6.0-8.3 g/dL Albumin 2.2 L 3.5-5.0 g/dL Whole Blood Glucose 108 70-110 MG/DL Current Medications Medications (Trade) Dose Ordered Sig/Brittany Route PRN Reason Start Time Stop Time Status Last Admin Dose Admin Acetaminophen (TYLenol 325MG TAB) 650 mg Q4H PRN PO Temp >38.3C(AFTER EXTUBATION) 11/07/24 14:00 12/07/24 13:59 Acetaminophen (TYLenol 325MG TAB) 650 mg Q6H PRN PO TEMPERATURE GREATER THAN 101.5 11/03/24 21:00 11/07/24 14:00 DC 11/06/24 23:00 650 MG Acetaminophen (TYLenol 325MG TAB) 650 mg Q6H PRN PO MILD PAIN (1-3) 11/07/24 14:00 12/07/24 13:59 Acetaminophen (TYLenol 650MG SUPPOSITORY) 650 mg Q4H PRN RC Temp >38.3C WHILE INTUBATED 11/07/24 14:00 12/07/24 13:59 Acetaminophen (acetaMINOPHEN) 1,000 mg Q6H IVPB 11/09/24 09:00 11/12/24 08:59 11/10/24 14:43 1,000 MG Acetaminophen (acetaMINOPHEN) 1,000 mg Q6H6 IV 11/07/24 18:00 11/08/24 17:59 DC 11/08/24 18:08 1,000 MG Albumin Human 250 ml @ 0 mls/hr AD PRN IV IF HEMODYNAMICALLY UNSTABLE 11/07/24 14:00 11/08/24 09:57 DC 11/08/24 09:57 125 MLS/HR Aminocaproic Acid 96828 mg/Sodium Chloride 310 ml @ 25 mls/hr AD IV 11/07/24 14:00 11/08/24 02:23 DC Aminocaproic Acid 95261 mg/Sodium Chloride 480 ml @ 0 mls/hr AD PRN IV BLEEDING CONTROL 11/07/24 11:00 11/07/24 14:03 DC Aspirin (Aspirin 81mg Ec Tab) 81 mg DAILY PO 11/04/24 09:00 12/04/24 08:59 11/10/24 08:14 81 MG Atorvastatin Calcium (LIPItor 40MG) 40 mg HS PO 11/03/24 21:00 11/03/24 20:40 DC Atorvastatin Calcium (LIPItor 40MG) 40 mg HS PO 11/03/24 21:00 11/09/24 07:45 DC 11/07/24 20:15 40 MG Calcium Gluconate (Calcium Gluc 1gm Vial) 1 gm AD PRN IV HYPOCALCEMIA 11/08/24 09:00 11/09/24 07:45 DC 11/08/24 16:36 1 GM Calcium Gluconate 1 gm/Sodium Chloride 60 ml @ 200 mls/hr AD PRN IV HYPOCALCEMIA 11/07/24 14:00 12/07/24 13:59 11/10/24 03:54 200 MLS/HR Cefazolin Sodium (Ancef) 2 gm ONCALL IVPB 11/06/24 22:00 11/07/24 14:00 DC Cefazolin Sodium (Ancef) 2 gm Q8H IVPB 11/07/24 19:00 11/08/24 11:01 DC 11/08/24 11:15 2 GM Clopidogrel Bisulfate (plaVIX 75MG) 75 mg DAILY PO 11/08/24 14:00 12/08/24 13:59 11/10/24 08:13 75 MG Dexmedetomidine/ Sodium Chloride (PRECEdex 400MCG/ 100ML-NS) 400 mcg PROTOCOL IV 11/07/24 14:00 12/07/24 13:59 Dextrose (D50w) 50 ml AD PRN IV HYPOGLYCEMIA PROTOCOL 11/07/24 14:00 12/07/24 13:59 Dextrose/Sodium Bicarbonate 1,025 ml @ 10 mls/hr Q24H IV 11/07/24 19:30 12/07/24 19:29 11/07/24 20:09 10 MLS/HR Docusate Sodium (COLace 100MG CAP) 100 mg BID PO 11/07/24 21:00 11/08/24 10:11 DC 11/07/24 20:15 100 MG Docusate Sodium (COLace 100MG CAP) 100 mg BID PO 11/10/24 09:00 12/10/24 08:59 11/10/24 08:15 100 MG Docusate Sodium (COLace LIQUID 100MG/10ML) 100 mg BID NG 11/08/24 10:30 11/09/24 21:53 DC 11/09/24 20:47 100 MG Enoxaparin Sodium (Lovenox) 30 mg DAILY SQ 11/10/24 09:00 12/10/24 08:59 Enoxaparin Sodium (Lovenox) 40 mg DAILY SQ 11/04/24 09:00 11/07/24 13:38 DC 11/05/24 09:06 40 MG Epinephrine HCl 10 mg/Sodium Chloride 250 ml @ 13.948 mls/ hr AD PRN IV POST-OP CARDIOVASCULAR ORDERS 11/07/24 14:00 11/12/24 13:59 11/09/24 19:48 7 MLS/HR Epinephrine HCl 10 mg/Sodium Chloride 250 ml @ 0 mls/hr AD PRN IV TITRATE 11/07/24 11:00 11/07/24 14:02 DC Famotidine (Pepcid 20mg Vial) 20 mg BID IV 11/07/24 21:00 11/08/24 08:59 DC 11/08/24 08:11 20 MG Famotidine (Pepcid 20mg Tab) 20 mg DAILY PO 11/04/24 09:00 11/07/24 13:38 DC 11/05/24 09:06 20 MG Furosemide (LASix 20MG TAB) 20 mg Q12H PO 11/09/24 09:00 12/09/24 08:59 11/10/24 08:14 20 MG Furosemide (LASix 20MG VIAL) 20 mg Q12H IV 11/08/24 09:00 11/09/24 08:59 DC 11/08/24 20:23 20 MG Glucagon (Glucagon 1mg Kit) 1 mg AD PRN IM HYPOGLYCEMIA PROTOCOL 11/07/24 14:00 12/07/24 13:59 Hydralazine HCl (APRESOLine 20MG INJ) 10 mg Q6H PRN IV For:SBP above 160;DBP above 90 11/03/24 21:00 11/07/24 13:38 DC Insulin Human Regular 100 unit/ Sodium Chloride 100 ml @ 0 mls/hr AD IV 11/07/24 14:00 11/09/24 13:59 DC 11/08/24 12:30 4 MLS/HR Ipratropium [place] (AtrovENT UD) 0.5 MG [id number] IH 11/08/24 12:00 12/08/24 11:59 11/10/24 11:08 0.5 MG Lactulose (Constulose 20gm/ 30ml Udcup) 20 gm BID PRN PO CONSTIPATION 11/03/24 21:00 11/07/24 14:00 DC Lactulose (Constulose 20gm/ 30ml Udcup) 20 gm BID PRN PO CONSTIPATION 11/07/24 14:00 12/07/24 13:59 11/09/24 08:15 20 GM Levothyroxine Sodium (SYNTHroid 125MCG TAB) 125 mcg SYN PO 11/09/24 06:30 12/09/24 06:29 11/10/24 04:43 125 MCG Lidocaine HCl/ Dextrose 250 ml @ 0 mls/hr PROTOCOL PRN IV OTHER [SEE ORDER COMMENTS] 11/08/24 21:00 11/09/24 08:37 DC 11/08/24 21:15 7.5 MLS/HR Magnesium Hydroxide (Milk Of Magnesium 30ml) 30 ml DAILY PRN PO CONSTIPATION 11/07/24 14:00 12/07/24 13:59 Magnesium Sulfate 50 ml @ 12.5 mls/hr AD PRN IV MAG LEVEL LESS THAN 2.0 11/07/24 14:00 12/07/24 13:59 11/09/24 05:59 12.5 MLS/HR Metoprolol Tartrate (loprESSOR) 12.5 mg BID PO 11/09/24 09:00 12/09/24 08:59 Metoprolol Tartrate (loprESSOR) 50 mg BID PO 11/04/24 21:00 11/07/24 13:38 DC 11/06/24 20:38 50 MG Midodrine (PROAMatine 5 MG TABLET) 10 mg TID PO 11/09/24 21:00 12/09/24 20:59 11/10/24 13:07 10 MG Montelukast Sodium (SinguLAIR) 10 mg HS PO 11/08/24 21:00 12/08/24 20:59 11/09/24 20:47 10 MG Morphine Sulfate (morPHINE 2MG SYG) 0.5 mg Q2H PRN IV MODERATE PAIN (4-6) 11/07/24 14:00 11/08/24 13:59 DC Morphine Sulfate (morPHINE 2MG SYG) 1 mg Q2H PRN IV SEVERE PAIN (7-10) 11/07/24 14:00 11/08/24 13:59 DC Morphine Sulfate (morPHINE 4MG SYG) 2 mg Q4H PRN IVP SEVERE PAIN (7-10) 11/03/24 21:00 11/07/24 13:38 DC 11/04/24 15:49 2 MG Nitroglycerin (Nitroglycerin 1gm Oint) 0.5 inch Q8H TD 11/03/24 21:00 11/07/24 13:38 DC 11/07/24 05:46 0.5 INCH Nitroglycerin/ Dextrose 0 ml @ 0 mls/hr AD IV 11/07/24 14:00 11/10/24 13:59 DC Norepinephrine Bitartrate 250 ml @ 0 mls/hr AD PRN IV TITRATE 11/07/24 11:00 11/07/24 14:02 DC Norepinephrine Bitartrate 250 ml @ 0 mls/hr AD PRN IV POST-OP CARDIOVASCULAR ORDERS 11/07/24 14:00 11/12/24 13:59 11/09/24 17:09 5.6 MLS/HR Ondansetron HCl (zoFRAN 4MG INJ) 4 mg Q6H PRN IV NAUSEA/VOMITING 11/03/24 21:00 11/07/24 14:00 DC Ondansetron HCl (zoFRAN 4MG INJ) 4 mg Q6H PRN IV NAUSEA/VOMITING 11/07/24 14:00 12/07/24 13:59 11/09/24 21:50 4 MG Pantoprazole Sodium (PROTonix 40MG INJ) 40 mg BID IVP 11/08/24 09:00 12/08/24 08:59 11/10/24 08:14 40 MG Piperacillin Sod/ Tazobactam Sod (Zosyn 3.375gm+NS 50ml) 3.375 gm Q8H IV 11/09/24 10:00 11/09/24 09:38 DC Piperacillin Sod/ Tazobactam Sod (Zosyn 3.375gm+NS 50ml) 3.375 gm Q8H IV 11/09/24 10:00 11/19/24 09:59 11/10/24 12:24 3.375 GM Polyethylene Glycol (MIRalax 3350 17 GM POWD.PACK) 17 gm DAILY PO 11/09/24 09:00 12/09/24 08:59 11/10/24 08:14 17 GM Potassium Phosphate 250 ml @ 42 mls/hr AD PRN IV LOW PHOS LEVEL 11/07/24 14:00 12/07/24 13:59 11/08/24 07:22 42 MLS/HR Potassium Chloride 100 ml @ 100 mls/hr AD PRN IV HYPOKALEMIA 11/07/24 14:00 12/07/24 13:59 11/08/24 16:36 100 MLS/HR Propofol 100 ml @ 0 mls/hr AD PRN IV SEDATION 11/07/24 14:00 11/11/24 13:59 Sodium Bicarbonate (Sodium Bicarb 50meq 50ml Vial) 50 meq AD PRN IV OTHER[SEE DOSING INSTRUCTIONS] 11/07/24 14:00 11/10/24 13:59 DC 11/08/24 00:54 50 MEQ Sodium Chloride 500 ml @ 0 mls/hr AD IV 11/07/24 14:00 12/07/24 13:59 11/10/24 00:41 3 MLS/HR Sodium Chloride 1,000 ml @ 10 mls/hr ONCE IV 11/07/24 14:00 11/08/24 13:59 DC 11/07/24 20:11 10 MLS/HR Sodium Chloride 1,000 ml @ 100 mls/hr Q10H IV 11/06/24 12:30 11/06/24 15:29 DC Sodium Chloride (NS Flush 10ml) 10 ml Q8H PRN IVP IV LINE FLUSH 11/07/24 14:00 12/07/24 13:59 Sucralfate (Carafate) 1 gm TID PO 11/08/24 21:00 12/08/24 20:59 11/10/24 13:07 1 GM Tramadol HCl (UltRAM) 25 mg Q6H PRN PO MODERATE PAIN (4-6) 11/07/24 14:00 11/09/24 08:37 DC Tramadol HCl (UltRAM) 50 mg Q6H PRN PO SEVERE PAIN (7-10) 11/07/24 14:00 11/09/24 08:37 DC 11/08/24 23:30 50 MG Vitamin B Complex (Vitamin B-12) 1,000 mcg DAILY IM 11/07/24 09:00 11/13/24 08:59 11/10/24 08:14 1,000 MCG DIAGNOSTICS / RADIOLOGY: [ ] ASSESSMENT: Coronary artery disease, POA, s/p CABG 3v and redo sternotomy with redo of graft failure now s/p CABG with 4v Hyperlipidemia, POA Grave's disease, POA Peripheral artery disease, suspected Carotid artery stenosis PLAN: Coronary artery disease, POA s/p CABG 3v and redo sternotomy with redo of graft failure now s/p CABG with 4v * Administer aspirin 325 mg p.o. now and then continue aspirin 81 mg p.o. daily * Troponin every 6 hours, serial troponin levels are 12-11. * Supplemental oxygen as needed to maintain SpO2 greater than 94% * Monitor for recurrence of chest pain, arrhythmias, or hemodynamic changes * Electrocardiogram was done which is normal. * A 2D Echo has been ordered due to patients history of chest pain on exertion and rest. * A cardiology consult has been placed for evaluation of CAD in patient with exertional chest pain and vascular disease. 11/04/24 * Echocardiogram was done which revealed aortic valve: trileaflet, mildly sclerotic, and opens well. * Pending Coronary CTA reports. * Lipid panels has been ordered to assess Cardiovascular risks. Results unremarkable. * In coronary CT angiography there is mixed calcified and noncalcified plaque in the proximal LAD with 80-90% stenosis. Left circumflex coronary artery: Normal caliber, nondominant and gives rise to a large OM branch. There is mixed calcified and noncalcified plaque in the mid LCx with 80-90% stenosis. * CAD-RAD of 4B. * Left heart catheterization with selective right and left coronary angiography was performed which showed critical left main disease. Severe ostial RCA stenosis. 11/06/24 * He complaints of headache 8/10 of intensity after the administration of Nitroglycerin. Tylenol has been administered. Closely monitoring the patient. * Cardiac catheterization demonstrated a very tight left main lesion and the patient is referred for surgical revascularization. * Patient is POD 3 S/P CABG, patient is being managed in the ICU per protocol. * Recent ABG shows lactic acid is 1.22. * We will continue to following Cardiology and critical care recommendations. Peripheral vascular disease, Suspected * Patient has history of exertional bilateral leg pain * Diminished peripheral pulses * A SERA has been ordered due to the patients complaint of bilateral lower extremity claudication, and numbness/tingling in bilateral lower extremities. * Clear aspirin 81 mg daily and statin 40mg * Encouraged supervised exercise therapy for claudication * Counseled on continued smoking cessation 11/04/24 Peripheral Neuropathy * Vitamin B12 has been ordered to rule out peripheral neuropathy.11/05/24 * Complained of numbness and tingling in his limbs. * Vitamin B12 level was measured which showed 173L. * Patient has been started on vitamin B12 supplement 1000 mcg for 6 days. Carotid artery stenosis * Presence of bilateral carotid bruit on exam, suspicion for significant stenosis * Carotid Duplex ultrasound has been done, awaiting reports * Risk factor modification: Smoking cessation, BP control, glycemic control. 11/04/24 * Carotid artery ultrasound showed Bilateral ICA/CCA ratio more than 4.0 suggesting more than 70% stenosis. 11/05/24 Hyperlipidemia * Continue home statin therapy atorvastatin 40 mg * Reinforce low-cholesterol, heart healthy diet (limit saturated fats, increase fiber, fruits and vegetables) * Encouraged regular physical activity as tolerated * Monitor lipid panel * Outpatient follow up with PCP/Cardiology for long-term lipid management and cardiovascular risks reduction Supportive measures * Start patient on GI prophylaxis * DVT prophylaxis * Monitor morning labs CBC and BMP daily * He is on clear liquid diet Hypothyroidism * Continue home medication of Synthroid * TSH 1.33. ATTESTATION BY PHYSICIAN I have seen and examined the patient. I reviewed the documentation, medical decision making, and treatment plan as noted by the resident provider above. I agree with the findings and plan of care. Isiah Mejia MD, AKSHAY MD Nov 10, 2024 15:14
[2024-11-10 17:13] LABS: CREATININE 1.1 mg/dL (0.5-1.3); GLOMERULAR FILTR. RATE CALC 74.0 mL/min (>90); GLUCOSE,RANDOM 115.0 mg/dL (70-105); SODIUM SERUM 145.0 mmol/L (136-145); UREA NITROGEN, BLOOD 17.0 mg/dL (7-18)
[2024-11-10 18:45] LABS: ABG BASE EXCESS 5.4 mmol/L (-2.0-3.0); ABG HCO3 31.0 mmol/L (21.0-28.0); ABG OXYGEN SATURATION 35.5 % (94.0-98.0); ABG PCO2 51 mmHg (35-48); ABG PH 7.405 (7.350-7.450); CARBON MONOXIDE 0.7 % (0.5-1.5); DEVICE COMMENT LEFT BRACH; PO2, ARTERIAL BG < 45.0 mmHg (83.0-108.0); TEMPERATURE, CELSIUS BG 37.0 CELSIUS (35.5-37.0); VENT MODE, BG OXYMIZER (ROOM AIR)
--- NOTE | 2024-11-10 18:50 | PN ---
[facility] PROGRESS NOTE Date Patient Seen: Today, October Supervising Physician: Dr Chilo Paris Assessment: Multivessel CAD (CABG 3 on 11/07) Post-op anemia (2U PRBC) Acute kidney injury Thrombocytopenia Graves disease Interval/Exam: Patient seen and examined, all labs and imaging have been reviewed On Impella (P8), low-dose levo + epi. Chest tube output 600cc overnight. UOP 5L/24h. WBC 14.7 trending down, Hgb 10.1, Plt 85. CXR mild LLL effusion. Hematology consulted. Plan: Continue Impella support Maintain MAP with pressors Monitor chest tube output, CBC, renal function Follow hematology recommendations Follow Cardiothoracic postop protocol Weaning pressors PT when able Follow cardiology recs Physical Exam: General: Post-op, mildly fatigued. Neuro: Awake, oriented. HEENT: Pupils equal/reactive. CV: Tachycardic, chest incision CDI, pulses present. Respiratory: Diminished bases, mild crackles LLL. Abdomen: Soft, NT. : Daniel with clear urine. Extremities: Trace edema. Skin: Warm, intact. Lines/Tubes: Chest tube, Impella, central line. Critical Care Time: 52 minutes mechanical support, vasoactive drips, bleeding risk. excluding all procedures. REVIEW OF SYSTEMS: 12 point ROS reviewed , only + as per above PLAN GI & NUTRITION: Continue nutritional support Aspirations precautions Prokinetic agents and laxatives as needed KIDNEYS & ELECTROLYTES: Strict monitoring of intake and output NEURO: Minimize central acting medications as possible. Fall Precautions. Well lighted room through the day and minimize interruptions through the night to prevent acute delirium. PULMONARY: Supplemental 02 as needed Titrate Fio2 to keep Spo2 > or = 90% DuoNebs and CPT as needed CARDIOVASCULAR: Follow hemodynamics. Titrate vasopressor to keep MAP >65 or systolic blood pressure >95mmHg ENDOCRINE: Maintain blood glucose between 100-180 at all times. Insulin sliding scale for blood glucose management RENAL: Avoid nephrotoxic agents INFECTIOUS DISEASE: Trend temperature. Nichols-culture if febrile. HEMATOLOGY & COAGULATION: Monitor H&H. Keep Hgb > 7 Transfuse 1 unit of PRBC for Hgb < 7 Watch for any signs and symptoms of bleeding SKIN: Pressure ulcer prevention per facility protocol ATTESTATION BY PHYSICIAN The patient has been seen and evaluated, the case has been discussed with the PA, I agree with the clinical findings and plan of care. Vitals/Labs Vital Signs Date Time Temp Pulse Resp B/P (MAP) Pulse Ox O2 Delivery O2 Flow Rate FiO2 11/10/24 18:36 69 18 11/10/24 18:35 N/Cannula Oximizer Hi LPM 10.0 60 11/10/24 17:15 50/50 (50) 100 104/68 (80) 11/10/24 16:00 98.1 Laboratory Tests 11/09/24 20:54 11/10/24 03:51 11/10/24 16:57 Medications Current Medications Aspirin 325 mg ONCE ONCE PO Last administered on 11/03/24at 17:53; Start 11/03/24 at 18:00; Stop 11/03/24 at 18:01; Status DC Acetaminophen 650 mg Q6H PRN PO Last administered on 11/06/24at 23:00; Start 11/03/24 at 21:00; Stop 11/07/24 at 14:00; Status DC Aspirin 81 mg DAILY PO Last administered on 11/10/24at 08:14; Start 11/04/24 at 09:00; Stop 12/04/24 at 08:59 Atorvastatin Calcium 40 mg HS PO; Start 11/03/24 at 21:00; Stop 11/03/24 at 20:40; Status DC Enoxaparin Sodium 40 mg DAILY SQ Last administered on 11/05/24at 09:06; Start 11/04/24 at 09:00; Stop 11/07/24 at 13:38; Status DC Famotidine 20 mg DAILY PO Last administered on 11/05/24at 09:06; Start 11/04/24 at 09:00; Stop 11/07/24 at 13:38; Status DC Hydralazine HCl 10 mg Q6H PRN IV; Start 11/03/24 at 21:00; Stop 11/07/24 at 13:38; Status DC Lactulose 20 gm BID PRN PO; Start 11/03/24 at 21:00; Stop 11/07/24 at 14:00; Status DC Morphine Sulfate 2 mg Q4H PRN IVP Last administered on 11/04/24at 15:49; Start 11/03/24 at 21:00; Stop 11/07/24 at 13:38; Status DC Nitroglycerin 0.5 inch Q8H TD Last administered on 11/07/24at 05:46; Start 11/03/24 at 21:00; Stop 11/07/24 at 13:38; Status DC Ondansetron HCl 4 mg Q6H PRN IV; Start 11/03/24 at 21:00; Stop 11/07/24 at 14:00; Status DC Atorvastatin Calcium 40 mg HS PO Last administered on 11/07/24at 20:15; Start 11/03/24 at 21:00; Stop 11/09/24 at 07:45; Status DC Metoprolol Tartrate 50 mg BID PO Last administered on 11/06/24at 20:38; Start 11/04/24 at 21:00; Stop 11/07/24 at 13:38; Status DC Iohexol 35,000 mg STK-MED ONCE IV; Start 11/05/24 at 11:05; Stop 11/05/24 at 11:05; Status DC Sodium Chloride 1,000 ml @ 100 mls/hr Q10H ONCE IV Last administered on 11/05/24at 14:03; Start 11/05/24 at 13:30; Stop 11/05/24 at 23:29; Status DC Lidocaine HCl 20 ml STK-MED ONCE .ROUTE; Start 11/06/24 at 11:05; Stop 11/06/24 at 11:05; Status DC Iohexol 35,000 mg STK-MED ONCE IV; Start 11/06/24 at 11:05; Stop 11/06/24 at 11:06; Status DC Heparin Sodium (Porcine) 10,000 unit STK-MED ONCE .ROUTE; Start 11/06/24 at 11:05; Stop 11/06/24 at 11:06; Status DC Heparin Sodium/ Sodium Chloride 1,000 ml @ As Directed STK-MED ONCE IV; Start 11/06/24 at 11:06; Stop 11/06/24 at 11:06; Status DC Nitroglycerin 50 mg STK-MED ONCE .ROUTE; Start 11/06/24 at 11:06; Stop 11/06/24 at 11:06; Status DC Verapamil HCl 5 mg STK-MED ONCE .ROUTE; Start 11/06/24 at 11:06; Stop 11/06/24 at 11:06; Status DC Fentanyl Citrate 100 mcg STK-MED ONCE .ROUTE; Start 11/06/24 at 11:35; Stop 11/06/24 at 11:36; Status DC Midazolam HCl 2 mg STK-MED ONCE .ROUTE; Start 11/06/24 at 11:35; Stop 11/06/24 at 11:36; Status DC Vitamin B Complex 1,000 mcg DAILY IM Last administered on 11/10/24at 08:14; Start 11/07/24 at 09:00; Stop 11/13/24 at 08:59 Sodium Chloride 1,000 ml @ 100 mls/hr Q10H IV; Start 11/06/24 at 12:30; Stop 11/06/24 at 15:29; Status DC Cefazolin Sodium 2 gm ONCALL IVPB; Start 11/06/24 at 22:00; Stop 11/07/24 at 14:00; Status DC Epinephrine HCl 10 mg/Sodium Chloride 250 ml @ 0 mls/hr AD PRN IV; Start 11/07/24 at 11:00; Stop 11/07/24 at 14:02; Status DC Norepinephrine Bitartrate 250 ml @ 0 mls/hr AD PRN IV; Start 11/07/24 at 11:00; Stop 11/07/24 at 14:02; Status DC Aminocaproic Acid 08195 mg/Sodium Chloride 480 ml @ 0 mls/hr AD PRN IV; Start 11/07/24 at 11:00; Stop 11/07/24 at 14:03; Status DC Metoprolol Tartrate 25 mg ONCE ONCE PO Last administered on 11/07/24at 11:15; Start 11/07/24 at 11:30; Stop 11/07/24 at 11:31; Status DC Nitroglycerin/ Dextrose 1 ml @ As Directed STK-MED ONCE .ROUTE; Start 11/07/24 at 11:25; Stop 11/07/24 at 11:25; Status DC Acetaminophen 1,000 mg Q6H6 IV Last administered on 11/08/24at 18:08; Start 11/07/24 at 18:00; Stop 11/08/24 at 17:59; Status DC Aspirin 81 mg ONCE ONCE NG; Start 11/07/24 at 17:00; Stop 11/07/24 at 17:01; Status DC Docusate Sodium 100 mg BID PO Last administered on 11/07/24at 20:15; Start 11/07/24 at 21:00; Stop 11/08/24 at 10:11; Status DC Lactulose 20 gm BID PRN PO Last administered on 11/09/24at 08:15; Start 11/07/24 at 14:00; Stop 12/07/24 at 13:59 Furosemide 20 mg Q12H PO Last administered on 11/10/24at 08:14; Start 11/09/24 at 09:00; Stop 12/09/24 at 08:59 Furosemide 20 mg Q12H IV Last administered on 11/08/24at 20:23; Start 11/08/24 at 09:00; Stop 11/09/24 at 08:59; Status DC Enoxaparin Sodium 30 mg DAILY SQ; Start 11/10/24 at 09:00; Stop 12/10/24 at 08:59 Metoprolol Tartrate 12.5 mg BID PO; Start 11/09/24 at 09:00; Stop 12/09/24 at 08:59 Magnesium Hydroxide 30 ml DAILY PRN PO; Start 11/07/24 at 14:00; Stop 12/07/24 at 13:59 Dexmedetomidine/ Sodium Chloride 400 mcg PROTOCOL IV; Start 11/07/24 at 14:00; Stop 12/07/24 at 13:59 Acetaminophen 650 mg Q6H PRN PO; Start 11/07/24 at 14:00; Stop 12/07/24 at 13:59 Sodium Chloride 1,000 ml @ 10 mls/hr ONCE IV Last administered on 11/07/24at 20:11; Start 11/07/24 at 14:00; Stop 11/08/24 at 13:59; Status DC Sodium Chloride 10 ml Q8H PRN IVP; Start 11/07/24 at 14:00; Stop 12/07/24 at 13:59 Morphine Sulfate 0.5 mg Q2H PRN IV; Start 11/07/24 at 14:00; Stop 11/08/24 at 13:59; Status DC Morphine Sulfate 1 mg Q2H PRN IV; Start 11/07/24 at 14:00; Stop 11/08/24 at 13:59; Status DC Acetaminophen 650 mg Q4H PRN RC; Start 11/07/24 at 14:00; Stop 12/07/24 at 13:59 Ondansetron HCl 4 mg Q6H PRN IV Last administered on 11/09/24at 21:50; Start 11/07/24 at 14:00; Stop 12/07/24 at 13:59 Sodium Chloride 500 ml @ 0 mls/hr AD IV Last administered on 11/10/24at 00:41; Start 11/07/24 at 14:00; Stop 12/07/24 at 13:59 Nitroglycerin/ Dextrose 0 ml @ 0 mls/hr AD IV; Start 11/07/24 at 14:00; Stop 11/10/24 at 13:59; Status DC Propofol 100 ml @ 0 mls/hr AD PRN IV; Start 11/07/24 at 14:00; Stop 11/11/24 at 13:59 Norepinephrine Bitartrate 250 ml @ 0 mls/hr AD PRN IV Last administered on 11/09/24at 17:09; Start 11/07/24 at 14:00; Stop 11/12/24 at 13:59 Epinephrine HCl 10 mg/Sodium Chloride 250 ml @ 13.948 mls/ hr AD PRN IV Last administered on 11/09/24at 19:48; Start 11/07/24 at 14:00; Stop 11/12/24 at 13:59 Aminocaproic Acid 15050 mg/Sodium Chloride 310 ml @ 25 mls/hr AD IV; Start 11/07/24 at 14:00; Stop 11/08/24 at 02:23; Status DC Calcium Gluconate 1 gm/Sodium Chloride 60 ml @ 200 mls/hr AD PRN IV Last administered on 11/10/24at 03:54; Start 11/07/24 at 14:00; Stop 12/07/24 at 13:59 Magnesium Sulfate 50 ml @ 12.5 mls/hr AD PRN IV Last administered on 11/09/24at 05:59; Start 11/07/24 at 14:00; Stop 12/07/24 at 13:59 Potassium Chloride 100 ml @ 100 mls/hr AD PRN IV Last administered on 11/10/24at 18:38; Start 11/07/24 at 14:00; Stop 12/07/24 at 13:59 Potassium Phosphate 250 ml @ 42 mls/hr AD PRN IV Last administered on 11/08/24at 07:22; Start 11/07/24 at 14:00; Stop 12/07/24 at 13:59 Albumin Human 250 ml @ 0 mls/hr AD PRN IV Last administered on 11/08/24at 09:57; Start 11/07/24 at 14:00; Stop 11/08/24 at 09:57; Status DC Acetaminophen 650 mg Q4H PRN PO; Start 11/07/24 at 14:00; Stop 12/07/24 at 13:59 Insulin Human Regular 100 unit/ Sodium Chloride 100 ml @ 0 mls/hr AD IV Last administered on 11/08/24at 12:30; Start 11/07/24 at 14:00; Stop 11/09/24 at 13:59; Status DC Cefazolin Sodium 2 gm Q8H IVPB Last administered on 11/08/24at 11:15; Start 11/07/24 at 19:00; Stop 11/08/24 at 11:01; Status DC Tramadol HCl 25 mg Q6H PRN PO; Start 11/07/24 at 14:00; Stop 11/09/24 at 08:37; Status DC Tramadol HCl 50 mg Q6H PRN PO Last administered on 11/08/24at 23:30; Start 11/07/24 at 14:00; Stop 11/09/24 at 08:37; Status DC Famotidine 20 mg BID IV Last administered on 11/08/24at 08:11; Start 11/07/24 at 21:00; Stop 11/08/24 at 08:59; Status DC Sodium Bicarbonate 50 meq AD PRN IV Last administered on 11/08/24at 00:54; Start 11/07/24 at 14:00; Stop 11/10/24 at 13:59; Status DC Dextrose 50 ml AD PRN IV; Start 11/07/24 at 14:00; Stop 12/07/24 at 13:59 Glucagon 1 mg AD PRN IM; Start 11/07/24 at 14:00; Stop 12/07/24 at 13:59 Protamine Sulfate 250 mg STK-MED ONCE IV; Start 11/07/24 at 14:25; Stop 11/07/24 at 14:26; Status DC Lidocaine HCl 100 mg STK-MED ONCE .ROUTE; Start 11/07/24 at 14:25; Stop 11/07/24 at 14:26; Status DC Heparin Sodium (Porcine) 10,000 unit STK-MED ONCE .ROUTE; Start 11/07/24 at 14:26; Stop 11/07/24 at 14:26; Status DC Epinephrine HCl 1 mg STK-MED ONCE .ROUTE; Start 11/07/24 at 14:26; Stop 11/07/24 at 14:26; Status DC Sodium Bicarbonate 200 ml @ As Directed STK-MED ONCE .ROUTE; Start 11/07/24 at 14:26; Stop 11/07/24 at 14:26; Status DC Norepinephrine Bitartrate 4 mg STK-MED ONCE IV; Start 11/07/24 at 14:26; Stop 11/07/24 at 14:26; Status DC Propofol 200 mg STK-MED ONCE IV; Start 11/07/24 at 14:26; Stop 11/07/24 at 14:26; Status DC Fentanyl Citrate 1,000 mcg STK-MED ONCE IJ; Start 11/07/24 at 14:26; Stop 11/07/24 at 14:27; Status DC Midazolam HCl 2 mg STK-MED ONCE .ROUTE; Start 11/07/24 at 14:26; Stop 11/07/24 at 14:27; Status DC Rocuronium Aurora 50 mg STK-MED ONCE .ROUTE; Start 11/07/24 at 14:27; Stop 11/07/24 at 14:27; Status DC Ketamine HCl 50 mg STK-MED ONCE .ROUTE; Start 11/07/24 at 14:31; Stop 11/07/24 at 14:31; Status DC Cefazolin Sodium 1 gm STK-MED ONCE .ROUTE Last administered on 11/07/24at 15:00; Start 11/07/24 at 14:55; Stop 11/07/24 at 14:56; Status DC Heparin Sodium/ Sodium Chloride 500 ml @ As Directed STK-MED ONCE IV; Start 11/07/24 at 14:57; Stop 11/07/24 at 14:57; Status DC Papaverine HCl 60 mg STK-MED ONCE .ROUTE Last administered on 11/07/24at 15:51; Start 11/07/24 at 14:57; Stop 11/07/24 at 14:57; Status DC Cefazolin Sodium 1 gm STK-MED ONCE .ROUTE Last administered on 11/07/24at 15:49; Start 11/07/24 at 15:46; Stop 11/07/24 at 15:46; Status DC Amiodarone HCl 150 mg STK-MED ONCE .ROUTE; Start 11/07/24 at 17:06; Stop 11/07/24 at 17:06; Status DC Amiodarone HCL/ Dextrose 100 ml @ As Directed STK-MED ONCE .ROUTE; Start 11/07/24 at 17:08; Stop 11/07/24 at 17:09; Status DC Cardioplegic Solution 0 ml @ As Directed STK-MED ONCE IV; Start 11/07/24 at 17:13; Stop 11/07/24 at 17:13; Status DC Heparin Sodium (Porcine) 10,000 unit STK-MED ONCE .ROUTE; Start 11/07/24 at 17:15; Stop 11/07/24 at 17:15; Status DC Sodium Bicarbonate 50 ml @ As Directed STK-MED ONCE .ROUTE; Start 11/07/24 at 17:26; Stop 11/07/24 at 17:26; Status DC Sodium Bicarbonate 200 ml @ As Directed STK-MED ONCE .ROUTE; Start 11/07/24 at 17:36; Stop 11/07/24 at 17:36; Status DC Midazolam HCl 5 mg STK-MED ONCE .ROUTE; Start 11/07/24 at 17:57; Stop 11/07/24 at 17:57; Status DC Sodium Bicarbonate 150 ml @ As Directed STK-MED ONCE .ROUTE; Start 11/07/24 at 18:06; Stop 11/07/24 at 18:06; Status DC Amiodarone HCL/ Dextrose 100 ml @ As Directed STK-MED ONCE .ROUTE; Start 11/07/24 at 18:25; Stop 11/07/24 at 18:25; Status DC Cefazolin Sodium 1 gm STK-MED ONCE .ROUTE; Start 11/07/24 at 18:43; Stop 11/07/24 at 18:43; Status DC Ketamine HCl 50 mg STK-MED ONCE .ROUTE; Start 11/07/24 at 18:56; Stop 11/07/24 at 18:56; Status DC Ephedrine Sulfate 50 mg STK-MED ONCE .ROUTE; Start 11/07/24 at 18:58; Stop 11/07/24 at 18:59; Status DC Lidocaine HCl/ Dextrose 250 ml @ As Directed STK-MED ONCE IV Last administered on 11/07/24at 20:08; Start 11/07/24 at 19:02; Stop 11/07/24 at 19:02; Status DC Dextrose/Sodium Bicarbonate 1,025 ml @ 10 mls/hr Q24H IV Last administered on 11/07/24at 20:09; Start 11/07/24 at 19:30; Stop 12/07/24 at 19:29 Calcium Gluconate 1 gm AD PRN IV Last administered on 11/08/24at 16:36; Start 11/08/24 at 09:00; Stop 11/09/24 at 07:45; Status DC Pantoprazole Sodium 40 mg BID IVP Last administered on 11/10/24at 08:14; Start 11/08/24 at 09:00; Stop 12/08/24 at 08:59 Montelukast Sodium 10 mg HS PO Last administered on 11/09/24at 20:47; Start 11/08/24 at 21:00; Stop 12/08/24 at 20:59 Ipratropium Aurora 0.5 MG [id number] IH Last administered on 11/10/24at 18:35; Start 11/08/24 at 12:00; Stop 12/08/24 at 11:59 Polyethylene Glycol 17 gm DAILY PO Last administered on 11/10/24at 08:14; Start 11/09/24 at 09:00; Stop 12/09/24 at 08:59 Polyethylene Glycol 17 gm STK-MED ONCE .ROUTE; Start 11/08/24 at 10:01; Stop 11/08/24 at 10:02; Status DC Docusate Sodium 100 mg BID NG Last administered on 11/09/24at 20:47; Start 11/08/24 at 10:30; Stop 11/09/24 at 21:53; Status DC Levothyroxine Sodium 125 mcg SYN PO Last administered on 11/10/24at 04:43; Start 11/09/24 at 06:30; Stop 12/09/24 at 06:29 Clopidogrel Bisulfate 75 mg DAILY PO Last administered on 11/10/24at 08:13; Start 11/08/24 at 14:00; Stop 12/08/24 at 13:59 Sucralfate 1 gm TID PO Last administered on 11/10/24at 13:07; Start 11/08/24 at 21:00; Stop 12/08/24 at 20:59 Lidocaine HCl/ Dextrose 250 ml @ 0 mls/hr PROTOCOL PRN IV Last administered on 11/08/24at 21:15; Start 11/08/24 at 21:00; Stop 11/09/24 at 08:37; Status DC Metoclopramide HCl 5 mg ONCE ONCE IVP Last administered on 11/09/24at 00:22; Start 11/09/24 at 00:30; Stop 11/09/24 at 00:31; Status DC Acetaminophen 100 ml @ As Directed STK-MED ONCE .ROUTE; Start 11/09/24 at 07:08; Stop 11/09/24 at 07:08; Status DC Acetaminophen 1,000 mg ONCE ONCE IVPB Last administered on 11/09/24at 07:47; Start 11/09/24 at 08:00; Stop 11/09/24 at 08:01; Status DC Acetaminophen 1,000 mg Q6H IVPB Last administered on 11/10/24at 14:43; Start 11/09/24 at 09:00; Stop 11/12/24 at 08:59 Lidocaine/ Prilocaine 1 appl ONCE ONCE TP Last administered on 11/09/24at 09:49; Start 11/09/24 at 09:30; Stop 11/09/24 at 09:33; Status DC Piperacillin Sod/ Tazobactam Sod 3.375 gm Q8H IV Last administered on 11/10/24at 18:37; Start 11/09/24 at 10:00; Stop 11/19/24 at 09:59 Piperacillin Sod/ Tazobactam Sod 3.375 gm Q8H IV; Start 11/09/24 at 10:00; Stop 11/09/24 at 09:38; Status DC Midodrine 10 mg TID PO Last administered on 11/10/24at 13:07; Start 11/09/24 at 21:00; Stop 12/09/24 at 20:59 Docusate Sodium 100 mg BID PO Last administered on 11/10/24at 08:15; Start 11/10/24 at 09:00; Stop 12/10/24 at 08:59 Calcium Chloride 1,000 mg STK-MED ONCE IVP; Start 11/03/24 at 12:28; Stop 11/10/24 at 12:31; Status DC Albumin Human 50 ml @ As Directed STK-MED ONCE IV; Start 11/03/24 at 12:28; Stop 11/10/24 at 12:31; Status DC Heparin Sodium (Porcine) 10,000 unit STK-MED ONCE IV; Start 11/03/24 at 12:28; Stop 11/10/24 at 12:31; Status DC Lidocaine HCl 5 mg STK-MED ONCE IVP; Start 11/03/24 at 12:28; Stop 11/10/24 at 12:31; Status DC Magnesium Sulfate 1 gm STK-MED ONCE IM; Start 11/03/24 at 12:28; Stop 11/10/24 at 12:31; Status DC Mannitol 12.5 gm STK-MED ONCE IV; Start 11/03/24 at 12:28; Stop 11/10/24 at 12:31; Status DC Norepinephrine Bitartrate 1 mg STK-MED ONCE IV; Start 11/03/24 at 12:28; Stop 11/10/24 at 12:31; Status DC Sodium Bicarbonate 50 meq STK-MED ONCE IVP; Start 11/03/24 at 12:28; Stop 11/10/24 at 12:31; Status DC SNOW MATAMOROS Nov 10, 2024 18:50
--- NOTE | 2024-11-10 19:40 | NUR ---
DR. JAY GERMAIN AT BEDSIDE PATIENT SEEN. PER MD PATIENT IS NOT ON HEPARIN MAKE SURE PATIENT IS ON SCD. HOLD LOPRESSOR FOR NOW. CALL ANESTHESIA IN THE MORNING TO INSERT MICHELLE. OK TO START LIPITOR 40MG PO HS. CAN WEAN OFF ALL PRESSORS THEN AFTER ALL PRESSORS OFF CAN WEAN OFF IMPELLA BY P1 Q 6HR STOP AT P3.
--- NOTE | 2024-11-10 21:31 | HMCIMG ---
EXAM: XR Chest, 1 View. CLINICAL HISTORY: 68-year-old male status post CABG. COMPARISON: 11/09/2024 at 4:45 am. FINDINGS: LUNGS: Minimal left lung atelectasis. PLEURAL SPACES: Small left pleural effusion. Left-sided chest tube in place. HEART: Mild cardiomegaly. BONES: No acute osseous abnormality. LINES AND TUBES: Right internal jugular central line tip in the superior vena cava. Findings are similar compared to prior XR chest from 11/09/2024 at 4:45 am. IMPRESSION: 1. Minimal left lung atelectasis and small left pleural effusion with left-sided chest tube in place, similar to prior study. 2. Mild cardiomegaly, similar to prior study. 3. Findings are similar compared to prior XR chest from 11/09/2024 at 4:45 am. /Welcome
[2024-11-10 23:24] LABS: ABG BASE EXCESS 7.7 mmol/L (-2.0-3.0); ABG HCO3 31.7 mmol/L (21.0-28.0); ABG OXYGEN SATURATION 95.4 % (94.0-98.0); ABG PCO2 42 mmHg (35-48); ABG PH 7.493 (7.350-7.450); CARBON MONOXIDE 0.3 % (0.5-1.5); DEVICE COMMENT LEFT BRACH; PO2, ARTERIAL BG 78.3 mmHg (83.0-108.0); TEMPERATURE, CELSIUS BG 37.0 CELSIUS (35.5-37.0); VENT MODE, BG OXYMIZER (ROOM AIR)
[2024-11-11] VITALS (98 sets, daily range): BP systolic 87–131; BP diastolic 50–89; PULSE 56–79; RESP 13–23; TEMP 97.7–98.3; O2SAT 98–100
[2024-11-11 03:15] LABS: ABG BASE EXCESS 2.9 mmol/L (-2.0-3.0); ABG HCO3 26.7 mmol/L (21.0-28.0); ABG OXYGEN SATURATION 95.6 % (94.0-98.0); ABG PCO2 38 mmHg (35-48); ABG PH 7.468 (7.350-7.450); CARBON MONOXIDE 0.5 % (0.5-1.5); DEVICE COMMENT LEFT RAD; PO2, ARTERIAL BG 81.1 mmHg (83.0-108.0); TEMPERATURE, CELSIUS BG 37.0 CELSIUS (35.5-37.0); VENT MODE, BG OXYMIZER (ROOM AIR)
[2024-11-11 04:25] LABS: NUCLEATED RED BLOOD CELLS 0.0 % (0.0-0.19); PLATELET COUNT (AUTO) 106.0 K/uL (130-400); RED BLOOD CELL COUNT(AUTO) 3.03 MIL/uL (4.50-6.20); RED CELL DISTRIBUTION WIDTH 13.4 % (11.0-15.5); WHITE BLOOD COUNT (AUTO) 11.7 K/uL (4.8-10.8)
[2024-11-11 05:02] LABS: ASPARTATE AMINOTRANSFERASE 87.0 U/L (10-37); CREATININE 1.0 mg/dL (0.5-1.3); GLOMERULAR FILTR. RATE CALC 82.0 mL/min (>90); GLUCOSE,RANDOM 111.0 mg/dL (70-105); SODIUM SERUM 142.0 mmol/L (136-145); TOTAL PROTEIN, SERUM 5.1 g/dL (6.0-8.3); UREA NITROGEN, BLOOD 16.0 mg/dL (7-18)
--- NOTE | 2024-11-11 06:57 | NUR ---
DR JAY GERMAIN AT BEDSIDE PATIENT SEEN UPDATED ON PATIENT LABS AND OUTPUT. PER MD WEAN OFF PRESSORS AND WEAN OFF IMPELLA. PLACE PATIENT ON P6. OK WITH MEAN OF 65. MIDODRINE 15MG. HAVE PT OT GET PATIENT UP AND POSSIBLY WALK PATIENT.
--- NOTE | 2024-11-11 08:17 | HMCIMG ---
EXAM: CR Chest, 1 View. CLINICAL HISTORY: s/p CABG COMPARISON: Yesterday. FINDINGS: LUNGS: Mild pulmonary vascular congestion. PLEURAL SPACES: Small left pleural effusion. MEDIASTINUM: Status post median sternotomy. Left-sided support device unchanged in position overlying left cardiac border. BONES: No aggressive appearing osseous lesion seen. MISCELLANEOUS: Left chest tube. Right internal jugular introducer catheter. IMPRESSION: 1. Mild pulmonary vascular congestion. 2. Small left pleural effusion. 3. Left-sided cardiac support device, unchanged. 4. Left chest tube and right internal jugular introducer catheter present. 5. Status post median sternotomy. /[place]
--- NOTE | 2024-11-11 09:49 | PN ---
[facility] PROGRESS NOTE Date Patient Seen: Nov 11, 2024 Time of Visit: 09:46 Supervising Physician: Dr Chilo Paris Primary Care Physician: Self Referral Outpatient Specialists: [ ] Inpatient Consults: PEG, Dr Jacobo, Dr Wellington , Dr Meza PROBLEM LIST: MvCAD s/p CABG x 3+1 w/ redo on 11/07/24 Postop acute anemia requiring 2 units of PRBCs intraoperatively ELSA Hyperlipidemia Sclerotic nodule on the non coronary cusp on 2D echo Normal ventricular diastolic function with LVEF of 60-65% on 2D echo 11/05/24 CAD status post PTCA to unknown vessel of proximally 30 years ago Former smoker Graves disease Obesity INTERVAL HISTORY: Patient seen and examined, all labs and imaging have been reviewed, patient is sitting comfortably in bed, continues with the Impella at P6, this is a 5 x 5, He is tolerating his diet, currently on clears Continues on epi at 0.04, patient's platelets have improved One hundred six this morning. Urine output 1800 overnight Chest tube output 80/100 overnight Nursing reports no acute events overnight. He is afebrile Plan: Following Cardiothoracic Surgeons postop protocol Neurovascular checks per protocol Weaning Impella per CTS Weaning pressors I&Os Cardiac diet Telemetry PT/OT when Able Total critical care time 49 minutes, patient remains critical requiring pressors, Impella support. Time excludes any educational time or procedures performed REVIEW OF SYSTEMS: 12 point ROS reviewed with patient. Pertinent positives mentioned above. Otherwise negative. PHYSICAL EXAM: GENERAL: alert, weak, awake oriented x 3 HEENT: EOMI, Sclera non icteric, moist mucosa NECK: Supple, no JVD, trachea midline right IJ. Subclavian Impella 5.5 LUNGS: Rhonchi to right lower lobes. No wheezes HEART: Regular rate and rhythm. Normal S1 and S2, without murmurs mid incision line tenderness. Dressing clean dry and intact. ABD: Abdomen soft, nontender. Bowel sounds present EXT: No clubbing cyanosis or edema. Left femoral sheath. NEURO: Alert and oriented to person, follows commands Vital Signs (last 8hr) Date Time Temp Pulse Resp B/P (MAP) Pulse Ox O2 Delivery O2 Flow Rate FiO2 11/11/24 06:53 75 18 N/Cannula Oximizer Hi LPM 6.0 11/11/24 06:50 75 16 11/11/24 05:40 79 16 100 114/83 (93) 11/11/24 05:25 71 20 100 98/61 (73) 11/11/24 05:10 71 16 109/78 (88) 100 11/11/24 04:55 72 17 98/62 (74) 100 11/11/24 04:40 71 19 103/67 (79) 100 11/11/24 04:25 71 17 100 105/69 (81) 11/11/24 04:10 67 13 100 108/73 (85) 11/11/24 04:00 98 Nasal Cannula* 10 N/A N/C Oxymizer Hi LPM* 11/11/24 03:55 97.7 70 18 100 109/74 (86) 11/11/24 03:40 71 19 100 107/65 (79) 11/11/24 03:25 71 20 100 110/75 (87) 11/11/24 03:10 74 18 100 111/76 (88) 11/11/24 02:55 77 15 100 103/77 (86) 11/11/24 02:40 78 21 100 114/73 (87) 11/11/24 02:25 69 17 99 118/75 (89) 11/11/24 02:10 70 19 100 108/72 (84) 11/11/24 01:55 77 19 100 113/66 (82) LABS: Hematology Labs: Test 11/11/24 03:35 Range/Units White Blood Count 11.7 H 4.8-10.8 K/uL Red Blood Count 3.03 L 4.50-6.20 MIL/uL Hemoglobin 9.7 L 14.0-18.0 g/dL Hematocrit 30.6 L 42-54 % Mean Corpuscular Volume 101.0 H 79-99 fL Mean Corpuscular Hemoglobin 32.0 27.0-33.0 pg Mean Corpuscular Hemoglobin Concent 31.7 L 32.0-36.0 g/dL Red Cell Distribution Width 13.4 11.0-15.5 % Platelet Count 106 L 130-400 K/uL Mean Platelet Volume 11.2 H 7.5-10.5 fL Nucleated Red Blood Cells 0.0 0.0-0.19 % Chemistry Labs: Test 11/11/24 03:35 11/10/24 03:51 Range/Units Sodium Level 142 136-145 mmol/L Potassium Level 3.7 3.5-5.1 mmol/L Chloride Level 105 101-111 mmol/L Carbon Dioxide Level 28 21-32 mmol/L Blood Urea Nitrogen 16 7-18 mg/dL Creatinine 1.0 0.5-1.3 mg/dL Glomerular Filtration Rate Calc 82 >90 mL/min Random Glucose 111 H 70-105 mg/dL Total Calcium 8.5 8.5-10.1 mg/dL Total Bilirubin 0.6 0.2-1.0 mg/dL Direct Bilirubin 0.2 0.0-0.3 mg/dL Aspartate Amino Transf (AST/SGOT) 87 H 10-37 U/L Alanine Aminotransferase (ALT/SGPT) 62 # 12-78 U/L Alkaline Phosphatase 62 50-136 U/L Total Protein 5.1 L 6.0-8.3 g/dL Albumin 2.0 L 3.5-5.0 g/dL Phosphorus Level 3.7 2.5-4.9 mg/dL Magnesium Level 2.20 1.80-2.40 mg/dL Coagulation Labs: Test 11/10/24 03:51 Range/Units Prothrombin Time 10.9 9.6-11.6 SEC Prothromb Time International Ratio 1.03 0.85-1.15 Activated Partial Thromboplast Time 25.5 L 26.3-35.5 SEC DIAGNOSTICS / RADIOLOGY RESULTS: [ ] PLAN NEURO: Minimize central acting medications as possible. Fall Precautions. Well lighted room through the day and minimize interruptions through the night to prevent acute delirium. PULMONARY: Supplemental 02 as needed Titrate Fio2 to keep Spo2 > or = 90% DuoNebs and CPT as needed IS hourly while awake for pulmonary hygiene Out of bed to chair as tolerated VAP Bundle Bipap 01/16 fio2 50% RT to titrate FiO2 as needed to maintain O2 above 92% CARDIOVASCULAR: Follow hemodynamics. Titrate vasopressor to keep MAP >65 or systolic blood pressure >95mmHg DIPS: Levophed Epi Lidocaine Insulin LINES: Central venous catheter right IJ Impella Chest tube A line Daniel catheter Left femoral sheath in place GI & NUTRITION: NPO for now Aspirations precautions Prokinetic agents and laxatives as needed KIDNEYS & ELECTROLYTES: Strict monitoring of intake and output Daily weights Avoid nephrotoxic agents Monitor electrolytes and replace as needed Goal urine output of 30mL/hr or 0.5mL/kg/hr Urine output 2 L in last 24 hours Chest tube drained 400 mL to lateral side Mediastinal drain 90 mL with I&O balance positive 230 mL ENDOCRINE: Maintain blood glucose between 100-180 at all times. Insulin sliding scale for blood glucose management INFECTIOUS DISEASE: Trend temperature. Nichols-culture if febrile. Micro: [ ] MRSA negative Antibiotics: [ ] Ancef HEMATOLOGY & COAGULATION: Monitor H&H. Keep Hgb > 7 Transfuse 1 unit of PRBC for Hgb < 7 Transfuse 1 pack of platelets of platelets < 20, 000 Watch for any signs and symptoms of bleeding SKIN: Pressure ulcer prevention per facility protocol Rehab: PT/OT Prophylaxis: GI: [ Protonix 40 mg IV b.i.d.] DVT: [Al hose per CV ] Code Status: Full Resuscitation Disposition: [ ICU] Case was discussed and seen with my supervising physician. The above plan was formulated and agreed upon. SNOW MATAMOROS Nov 11, 2024 09:49
[2024-11-11 10:11] LABS: CREATININE 1.0 mg/dL (0.5-1.3); GLOMERULAR FILTR. RATE CALC 82.0 mL/min (>90); GLUCOSE,RANDOM 107.0 mg/dL (70-105); SODIUM SERUM 140.0 mmol/L (136-145); UREA NITROGEN, BLOOD 16.0 mg/dL (7-18)
--- NOTE | 2024-11-11 11:30 | NUR ---
IMPELLA IN PLACE Addendum: 11/11/24 at 1215 by SHRUTI INGRAM PT Amended: Links added.
--- NOTE | 2024-11-11 12:04 | NUR ---
[facility] ICU Skin Assessment: Patient assessed by wound healing team. Patient with no wounds or skin breakdown noted. Assessment and recommendations provided to primary nurse. Education provided. Addendum: 11/11/24 at 1649 by TAD KNOTT RN RN/ Amended: Links added.
--- NOTE | 2024-11-11 14:20 | PN ---
[facility] PROGRESS NOTE Date of Service: Nov 11, 2024 Time of Service: 14:19 SUBJECTIVE: Mr. Valadez a 68-year-old male that was seen and examined today on 11/03/2024. Patient reports that he came to the emergency department with a chief complaint of chest pain. Onset was two or three years ago. He had similar repeated episodes months back which resolved on its own. Today's episode began at 11:00 a.m. Location is midsternal. Duration is on and off. Character is described as "neck someone is pushing a knuckle into the center of my chest. The chest pain did not radiate to shoulder, neck or jaw. "There was no alleviating factors. There was no aggravating factors. Patient reports that symptoms seemingly resolve on their own. He denies nausea, vomiting, fever and any other associated symptoms. Patient denies any associated shortness of breath. Patient has a past medical history of hyperlipidemia and Graves disease. He has been taking atorvastatin and Synthroid as his home medications. Today in the emergency department WBC 5.8, hemoglobin 12.9 platelets 197. His chemistries were within normal limits sodium 140, potassium 4.2, blood urea nitrogen 15 and creatinine 1.0. His electrocardiogram showed normal sinus rhythm. Patient will be admitted for further evaluation and related recommendations in Med-Surg. 11/04/24 Patient was evaluated at the bedside in ED-09. He reports that he is having chest pain that comes and goes. The patient reports having 2 episodes of chest pain in the last hour. He denies associated symptoms such as shortness of breath, palpitation, diaphoresis, dizziness, nausea or syncope. He does however complain of muscle pain in his lower limbs described as a dull aching discomfort that begins in the hip region that is worsened with movement. The patient complains of tingling and numbness in his feet bilaterally. No fever, chills or recent infection reported. Appetite and oral intake are normal. No other acute complaints at this time. On physical exam, a systolic murmur was auscultated over the aortic area. Bilateral carotid bruits are present. Lower extremities are cool to the touch with diminished pedal pulses. Patient reports bilateral leg muscle pain with exertion (suggestive of claudication), and chronic numbness and tingling in the feet. Patient reports recently quitting smoking tobacco for 2 months. He had a 1 pack a day smoking history since 1968. 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 The patient says his chest pain has been ongoing for the past 3 years, and that it gets worse with exertion and at rest. 11/05/24 Patient was evaluated at the bedside room 231. He was hemodynamically stable. Hi symptoms has improved significantly. He doesn't complain of chest pain, shortness of breath and any other associated symptoms. Echocardiogram was done which revealed aortic valve: trileaflet, mildly sclerotic, and opens well. Carotid artery ultrasound showed Bilateral ICA/CCA ratio more than 4.0 suggesting more than 70% stenosis. 11/06/24 Patient was evaluated at the bedside room 231. He was hemodynamically stable. Hi symptoms has improved significantly. He doesn't complain of chest pain, shortness of breath and any other associated symptoms. In coronary CT angiography there is mixed calcified and noncalcified plaque in the proximal LAD with 80-90% stenosis. Left circumflex coronary artery: Normal caliber, nondominant and gives rise to a large OM branch. There is mixed calcified and noncalcified plaque in the mid LCx with 80-90% stenosis. CAD-RAD of 4B. Left heart catheterization with selective right and left coronary angiography was performed which showed critical left main disease. 11/07/24 Patient was evaluated at the bedside room 231. He was hemodynamically stable. He doesn't complain of chest pain, shortness of breath and any other associated symptoms. He complaints of headache 8/10 of intensity after the administration of Nitroglycerin. Cardiac catheterization demonstrated a very tight left main lesion and the patient is referred for surgical revascularization. As per Dr Mendoza: Surgery is planned for today. 11/08/24: Patient was seen and evaluated this morning at bedside. The patient is POD 1 s/p CABG. Patient is currently being managed in the ICU. The patients most recent ABG shows a pH of 7.43, ABG PCO2 47, ABG PO2 77.9, ABG HCO3 30.8. Recent ABG shows improving lactic acid, from 8 to 3.85. The patients chemistry reveals a sodium level 157, potassium level 3.4, creatinine 1.9, BUN 19, GFR 38, phosphorous 2.2. Liver enzymes are trending up, with an ALT level at 325 and an AST level at 869. The patients home medication of Synthroid has been restarted. Chest x-ray ordered today, results pending. We will continue to follow recommendations from critical care team, and cardiology. 11/09/2024: Patient is seen and evaluated in the room 213. The patient is POD 2 s/p CABG. Patient is currently being managed in the ICU. He is complaining of pain. His vitals are in the normal range. His Hb is 11.1, WBC is 19.1, Plt is 115, sodium is 154, chloride is 113, glucose is 122. His recent ABG shows that pH is 7.472, pO2 is 80.1, bicarb is 30.4, Hb is 11.4, lactic acid is 1.63. His chest X-ray on 11/08 showed improved aeration within the left perihilar and left basilar regions. As per nurse he is having intervention confusion, stopped lidocaine and they also weaning on pressors norepinephrine and epinephrine. The drain output from left anterior chest is 20ml, mediastinal lateral is 160ml, mediastinal mediastinal is 300ml, right anterior chest is 160 ml. We will continue to follow recommendations from critical care team, and cardiology. 11/10/2024: Patient was seen and evaluated this morning at bedside. The patient is POD 3 s/p CABG. Patient is currently being managed in the ICU. He is not having any symptoms today. His vitals are in the normal range. His labs are normal except for Hb is 10.1, WBC is 14.7, plt is 85, sodium is 147, AST is 156, ALT is 95, APTT is 25.5. ABG shows that his pH is 7.4, lactate is 1.22, bicarb is 31. The drain output from left anterior chest is 170 ml, mediastinal mediastinal is 130ml. We will continue to follow recommendations from critical care team, and cardiology. 11/11/2024: Patient was seen and evaluated this morning at bedside. The patient is POD 4 s/p CABG. He is not having any symptoms today. His vitals are in the normal range. His labs are normal except for hemoglobin is 9.7, WBC is 11.7, platelet is 106, glucose is 107, AST is 87, ALT is 62. ABG shows pH is 7.468, lactic acid is 1.03. REVIEW OF SYSTEMS CONSTITUTIONAL: No fever, chills, or night sweats. NEUROLOGICAL: No headache no sensory and motor deficit. CARDIOVASCULAR: Denies any exertional angina, dyspnea on exertion, palpitations. PULMONARY: Denies any shortness of breath, cough, phlegm/sputum, hemoptysis, pleuritic chest pain. GASTROINTESTINAL: Denies nausea, vomiting. Denies pain, tenderness around the abdomen. GENITOURINARY: Denies frequency, urgency, nocturia, hematuria or incontinence. PHYSICAL EXAM GENERAL APPEARANCE: The patient is alert, awake and oriented and bedbound. NEUROLOGICAL: No sensory and motor deficits. CHEST: left anterior chest , mediastinal mediastinal drains are present. Normal chest expansion. LUNGS: Normal vesicular breath sound. Absence of any rales, rhonchi or any wheezing. CARDIOVASCULAR: Systolic murmur heard over aortic area. Bilateral carotid bruits heard. No JVD. ABDOMEN: Soft nontender, and nondistended. There is no rebound, voluntary guarding, or rigidity. No abdominal bruit heard. GENITOURINARY: No suprapubic tenderness. No costovertebral angle tenderness. EXTREMITIES: Limbs are non-edematous. Vital Signs (last 8hr) Date Time Temp Pulse Resp B/P (MAP) Pulse Ox O2 Delivery O2 Flow Rate FiO2 11/11/24 12:45 65 20 121/71 (88) 99 11/11/24 12:30 65 19 110/71 (84) 99 11/11/24 12:15 65 18 112/72 (85) 99 11/11/24 12:00 98.2 oxymizer 6.0 11/11/24 12:00 69 22 115/76 (89) 98 11/11/24 12:00 98 Nasal Cannula* 4 N/A N/C Oxymizer Hi LPM* 11/11/24 11:45 73 20 110/71 (84) 98 11/11/24 11:30 69 19 111/75 (87) 98 11/11/24 11:25 72 18 N/Cannula Oximizer Hi LPM 4.0 11/11/24 11:23 72 17 11/11/24 11:15 68 18 101/66 (78) 100 11/11/24 11:00 71 20 119/81 (94) 100 11/11/24 10:45 70 22 117/77 (90) 99 11/11/24 10:30 69 17 119/74 (89) 100 11/11/24 10:15 72 20 112/73 (86) 100 11/11/24 10:00 75 15 131/80 (97) 99 11/11/24 09:45 75 20 119/80 (93) 100 11/11/24 09:30 76 18 121/80 (94) 100 11/11/24 09:15 77 19 131/50 (77) 100 11/11/24 09:00 78 17 118/78 (91) 99 11/11/24 08:45 78 19 122/58 (79) 100 11/11/24 08:30 77 19 119/79 (92) 99 11/11/24 08:15 77 19 112/70 (84) 99 11/11/24 08:00 97.9 oxymizer 6.0 11/11/24 08:00 99 Nasal Cannula* 6 N/A N/C Oxymizer Hi LPM* 11/11/24 08:00 97.9 75 21 116/69 (85) 99 11/11/24 07:45 75 15 117/79 (92) 98 11/11/24 07:30 76 19 113/77 (89) 98 11/11/24 07:15 73 18 116/75 (89) 99 11/11/24 07:00 74 19 112/69 (83) 98 11/11/24 06:53 75 18 N/Cannula Oximizer Hi LPM 6.0 11/11/24 06:50 75 16 LABS: Laboratory: Test 11/11/24 09:25 11/11/24 03:35 11/11/24 03:13 11/10/24 03:51 Range/Units Sodium Level 140 136-145 mmol/L Potassium Level 3.8 3.5-5.1 mmol/L Chloride Level 103 101-111 mmol/L Carbon Dioxide Level 30 21-32 mmol/L Blood Urea Nitrogen 16 7-18 mg/dL Creatinine 1.0 0.5-1.3 mg/dL Glomerular Filtration Rate Calc 82 >90 mL/min Random Glucose 107 H 70-105 mg/dL Total Calcium 8.3 L 8.5-10.1 mg/dL White Blood Count 11.7 H 4.8-10.8 K/uL Red Blood Count 3.03 L 4.50-6.20 MIL/uL Hemoglobin 9.7 L 14.0-18.0 g/dL Hematocrit 30.6 L 42-54 % Mean Corpuscular Volume 101.0 H 79-99 fL Mean Corpuscular Hemoglobin 32.0 27.0-33.0 pg Mean Corpuscular Hemoglobin Concent 31.7 L 32.0-36.0 g/dL Red Cell Distribution Width 13.4 11.0-15.5 % Platelet Count 106 L 130-400 K/uL Mean Platelet Volume 11.2 H 7.5-10.5 fL Nucleated Red Blood Cells 0.0 0.0-0.19 % Total Bilirubin 0.6 0.2-1.0 mg/dL Direct Bilirubin 0.2 0.0-0.3 mg/dL Aspartate Amino Transf (AST/SGOT) 87 H 10-37 U/L Alanine Aminotransferase (ALT/SGPT) 62 # 12-78 U/L Alkaline Phosphatase 62 50-136 U/L Total Protein 5.1 L 6.0-8.3 g/dL Albumin 2.0 L 3.5-5.0 g/dL Blood Gas Specimen Type Arterial Arterial Blood pH 7.468 H 7.350-7.450 Arterial Blood Partial Pressure CO2 38 35-48 mmHg Arterial Blood Partial Pressure O2 81.1 L 83.0-108.0 mmHg Arterial Blood HCO3 26.7 21.0-28.0 mmol/L Arterial Blood Oxygen Saturation 95.6 94.0-98.0 % Arterial Blood Base Excess 2.9 -2.0-3.0 mmol/L Hemoglobin (Blood Gas) 10.7 L 13.5-17.5 g/dL Sodium (Blood Gas) 137 136-145 MMOL/L Bedside Potassium (Blood Gas) 3.7 3.4-4.5 MMOL/L Bedside Chloride (Blood Gas) 102 98-107 MMOL/L Bedside Glucose (Blood Gas) 119 H 65-95 MG/DL Bedside Ionized Calcium (Blood Gas) 1.15 1.15-1.33 MMOL/L Bedside Lactic Acid (Blood Gas) 1.03 H 0.36-0.75 MMOL/L Blood Gas Temperature 37.0 35.5-37.0 CELSIUS Blood Gas Flow-by 8.00 0.00-15.00 L/min Blood Gas Vent Mode OXYMIZER ROOM AIR FiO2 52.0 % Blood Gas Specimen Comment LEFT RAD Prothrombin Time 10.9 9.6-11.6 SEC Prothromb Time International Ratio 1.03 0.85-1.15 Activated Partial Thromboplast Time 25.5 L 26.3-35.5 SEC Phosphorus Level 3.7 2.5-4.9 mg/dL Magnesium Level 2.20 1.80-2.40 mg/dL Current Medications Medications (Trade) Dose Ordered Sig/Brittany Route PRN Reason Start Time Stop Time Status Last Admin Dose Admin Acetaminophen (TYLenol 325MG TAB) 650 mg Q4H PRN PO Temp >38.3C(AFTER EXTUBATION) 11/07/24 14:00 12/07/24 13:59 Acetaminophen (TYLenol 325MG TAB) 650 mg Q6H PRN PO TEMPERATURE GREATER THAN 101.5 11/03/24 21:00 11/07/24 14:00 DC 11/06/24 23:00 650 MG Acetaminophen (TYLenol 325MG TAB) 650 mg Q6H PRN PO MILD PAIN (1-3) 11/07/24 14:00 12/07/24 13:59 Acetaminophen (TYLenol 650MG SUPPOSITORY) 650 mg Q4H PRN RC Temp >38.3C WHILE INTUBATED 11/07/24 14:00 12/07/24 13:59 Acetaminophen (acetaMINOPHEN) 1,000 mg Q6H IVPB 11/09/24 09:00 11/12/24 08:59 11/11/24 10:50 1,000 MG Acetaminophen (acetaMINOPHEN) 1,000 mg Q6H6 IV 11/07/24 18:00 11/08/24 17:59 DC 11/08/24 18:08 1,000 MG Albumin Human 250 ml @ 0 mls/hr AD PRN IV IF HEMODYNAMICALLY UNSTABLE 11/07/24 14:00 11/08/24 09:57 DC 11/08/24 09:57 125 MLS/HR Aminocaproic Acid 59102 mg/Sodium Chloride 310 ml @ 25 mls/hr AD IV 11/07/24 14:00 11/08/24 02:23 DC Aminocaproic Acid 25024 mg/Sodium Chloride 480 ml @ 0 mls/hr AD PRN IV BLEEDING CONTROL 11/07/24 11:00 11/07/24 14:03 DC Aspirin (Aspirin 81mg Ec Tab) 81 mg DAILY PO 11/04/24 09:00 12/04/24 08:59 11/11/24 08:28 81 MG Atorvastatin Calcium (LIPItor 40MG) 40 mg HS PO 11/03/24 21:00 11/03/24 20:40 DC Atorvastatin Calcium (LIPItor 40MG) 40 mg HS PO 11/03/24 21:00 11/09/24 07:45 DC 11/07/24 20:15 40 MG Atorvastatin Calcium (LIPItor 40MG) 40 mg HS PO 11/10/24 21:00 12/10/24 20:59 11/10/24 20:08 40 MG Calcium Gluconate (Calcium Gluc 1gm Vial) 1 gm AD PRN IV HYPOCALCEMIA 11/08/24 09:00 11/09/24 07:45 DC 11/08/24 16:36 1 GM Calcium Gluconate 1 gm/Sodium Chloride 60 ml @ 200 mls/hr AD PRN IV HYPOCALCEMIA 11/07/24 14:00 12/07/24 13:59 11/11/24 04:30 200 MLS/HR Cefazolin Sodium (Ancef) 2 gm ONCALL IVPB 11/06/24 22:00 11/07/24 14:00 DC Cefazolin Sodium (Ancef) 2 gm Q8H IVPB 11/07/24 19:00 11/08/24 11:01 DC 11/08/24 11:15 2 GM Clopidogrel Bisulfate (plaVIX 75MG) 75 mg DAILY PO 11/08/24 14:00 12/08/24 13:59 11/11/24 08:28 75 MG Dexmedetomidine/ Sodium Chloride (PRECEdex 400MCG/ 100ML-NS) 400 mcg PROTOCOL IV 11/07/24 14:00 12/07/24 13:59 Dextrose (D50w) 50 ml AD PRN IV HYPOGLYCEMIA PROTOCOL 11/07/24 14:00 12/07/24 13:59 Dextrose/Sodium Bicarbonate 1,025 ml @ 10 mls/hr Q24H IV 11/07/24 19:30 12/07/24 19:29 11/07/24 20:09 10 MLS/HR Docusate Sodium (COLace 100MG CAP) 100 mg BID PO 11/07/24 21:00 11/08/24 10:11 DC 11/07/24 20:15 100 MG Docusate Sodium (COLace 100MG CAP) 100 mg BID PO 11/10/24 09:00 12/10/24 08:59 11/11/24 08:28 100 MG Docusate Sodium (COLace LIQUID 100MG/10ML) 100 mg BID NG 11/08/24 10:30 11/09/24 21:53 DC 11/09/24 20:47 100 MG Enoxaparin Sodium (Lovenox) 30 mg DAILY SQ 11/10/24 09:00 12/10/24 08:59 11/11/24 08:29 30 MG Enoxaparin Sodium (Lovenox) 40 mg DAILY SQ 11/04/24 09:00 11/07/24 13:38 DC 11/05/24 09:06 40 MG Epinephrine HCl 10 mg/Sodium Chloride 250 ml @ 13.948 mls/ hr AD PRN IV POST-OP CARDIOVASCULAR ORDERS 11/07/24 14:00 11/12/24 13:59 11/09/24 19:48 7 MLS/HR Epinephrine HCl 10 mg/Sodium Chloride 250 ml @ 0 mls/hr AD PRN IV TITRATE 11/07/24 11:00 11/07/24 14:02 DC Famotidine (Pepcid 20mg Vial) 20 mg BID IV 11/07/24 21:00 11/08/24 08:59 DC 11/08/24 08:11 20 MG Famotidine (Pepcid 20mg Tab) 20 mg DAILY PO 11/04/24 09:00 11/07/24 13:38 DC 11/05/24 09:06 20 MG Furosemide (LASix 20MG TAB) 20 mg Q12H PO 11/09/24 09:00 12/09/24 08:59 11/11/24 08:28 20 MG Furosemide (LASix 20MG VIAL) 20 mg Q12H IV 11/08/24 09:00 11/09/24 08:59 DC 11/08/24 20:23 20 MG Glucagon (Glucagon 1mg Kit) 1 mg AD PRN IM HYPOGLYCEMIA PROTOCOL 11/07/24 14:00 12/07/24 13:59 Hydralazine HCl (APRESOLine 20MG INJ) 10 mg Q6H PRN IV For:SBP above 160;DBP above 90 11/03/24 21:00 11/07/24 13:38 DC Insulin Human Regular 100 unit/ Sodium Chloride 100 ml @ 0 mls/hr AD IV 11/07/24 14:00 11/09/24 13:59 DC 11/08/24 12:30 4 MLS/HR Ipratropium Gwynn (AtrovENT UD) 0.5 MG [id number] IH 11/08/24 12:00 12/08/24 11:59 11/11/24 11:23 0.5 MG Lactulose (Constulose 20gm/ 30ml Udcup) 20 gm BID PRN PO CONSTIPATION 11/03/24 21:00 11/07/24 14:00 DC Lactulose (Constulose 20gm/ 30ml Udcup) 20 gm BID PRN PO CONSTIPATION 11/07/24 14:00 12/07/24 13:59 11/09/24 08:15 20 GM Levothyroxine Sodium (SYNTHroid 125MCG TAB) 125 mcg SYN PO 11/09/24 06:30 12/09/24 06:29 11/11/24 06:17 125 MCG Lidocaine HCl/ Dextrose 250 ml @ 0 mls/hr PROTOCOL PRN IV OTHER [SEE ORDER COMMENTS] 11/08/24 21:00 11/09/24 08:37 DC 11/08/24 21:15 7.5 MLS/HR Magnesium Hydroxide (Milk Of Magnesium 30ml) 30 ml DAILY PRN PO CONSTIPATION 11/07/24 14:00 12/07/24 13:59 Magnesium Sulfate 50 ml @ 12.5 mls/hr AD PRN IV MAG LEVEL LESS THAN 2.0 11/07/24 14:00 12/07/24 13:59 11/09/24 05:59 12.5 MLS/HR Metoprolol Tartrate (loprESSOR) 12.5 mg BID PO 11/09/24 09:00 11/11/24 09:39 DC Metoprolol Tartrate (loprESSOR) 50 mg BID PO 11/04/24 21:00 11/07/24 13:38 DC 11/06/24 20:38 50 MG Midodrine (PROAMatine 5 MG TABLET) 10 mg TID PO 11/09/24 21:00 11/11/24 06:58 DC 11/10/24 20:07 10 MG Midodrine (PROAMatine 5 MG TABLET) 15 mg TID PO 11/11/24 09:00 12/11/24 08:59 11/11/24 08:29 15 MG Montelukast Sodium (SinguLAIR) 10 mg HS PO 11/08/24 21:00 12/08/24 20:59 11/10/24 20:07 10 MG Morphine Sulfate (morPHINE 2MG SYG) 0.5 mg Q2H PRN IV MODERATE PAIN (4-6) 11/07/24 14:00 11/08/24 13:59 DC Morphine Sulfate (morPHINE 2MG SYG) 1 mg Q2H PRN IV SEVERE PAIN (7-10) 11/07/24 14:00 11/08/24 13:59 DC Morphine Sulfate (morPHINE 4MG SYG) 2 mg Q4H PRN IVP SEVERE PAIN (7-10) 11/03/24 21:00 11/07/24 13:38 DC 11/04/24 15:49 2 MG Nitroglycerin (Nitroglycerin 1gm Oint) 0.5 inch Q8H TD 11/03/24 21:00 11/07/24 13:38 DC 11/07/24 05:46 0.5 INCH Nitroglycerin/ Dextrose 0 ml @ 0 mls/hr AD IV 11/07/24 14:00 11/10/24 13:59 DC Norepinephrine Bitartrate 250 ml @ 0 mls/hr AD PRN IV TITRATE 11/07/24 11:00 11/07/24 14:02 DC Norepinephrine Bitartrate 250 ml @ 0 mls/hr AD PRN IV POST-OP CARDIOVASCULAR ORDERS 11/07/24 14:00 11/12/24 13:59 11/09/24 17:09 5.6 MLS/HR Ondansetron HCl (zoFRAN 4MG INJ) 4 mg Q6H PRN IV NAUSEA/VOMITING 11/03/24 21:00 11/07/24 14:00 DC Ondansetron HCl (zoFRAN 4MG INJ) 4 mg Q6H PRN IV NAUSEA/VOMITING 11/07/24 14:00 12/07/24 13:59 11/09/24 21:50 4 MG Pantoprazole Sodium (PROTonix 40MG INJ) 40 mg BID IVP 11/08/24 09:00 12/08/24 08:59 11/11/24 08:29 40 MG Piperacillin Sod/ Tazobactam Sod (Zosyn 3.375gm+NS 50ml) 3.375 gm Q8H IV 11/09/24 10:00 11/09/24 09:38 DC Piperacillin Sod/ Tazobactam Sod (Zosyn 3.375gm+NS 50ml) 3.375 gm Q8H IV 11/09/24 10:00 11/19/24 09:59 11/11/24 10:50 3.375 GM Polyethylene Glycol (MIRalax 3350 17 GM POWD.PACK) 17 gm DAILY PO 11/09/24 09:00 12/09/24 08:59 11/11/24 08:29 17 GM Potassium Phosphate 250 ml @ 42 mls/hr AD PRN IV LOW PHOS LEVEL 11/07/24 14:00 12/07/24 13:59 11/08/24 07:22 42 MLS/HR Potassium Chloride 100 ml @ 100 mls/hr AD PRN IV HYPOKALEMIA 11/07/24 14:00 12/07/24 13:59 11/11/24 03:34 100 MLS/HR Propofol 100 ml @ 0 mls/hr AD PRN IV SEDATION 11/07/24 14:00 11/11/24 13:59 DC Sodium Bicarbonate (Sodium Bicarb 50meq 50ml Vial) 50 meq AD PRN IV OTHER[SEE DOSING INSTRUCTIONS] 11/07/24 14:00 11/10/24 13:59 DC 11/08/24 00:54 50 MEQ Sodium Chloride 500 ml @ 0 mls/hr AD IV 11/07/24 14:00 12/07/24 13:59 11/10/24 00:41 3 MLS/HR Sodium Chloride 1,000 ml @ 10 mls/hr ONCE IV 11/07/24 14:00 11/08/24 13:59 DC 11/07/24 20:11 10 MLS/HR Sodium Chloride 1,000 ml @ 100 mls/hr Q10H IV 11/06/24 12:30 11/06/24 15:29 DC Sodium Chloride (NS Flush 10ml) 10 ml Q8H PRN IVP IV LINE FLUSH 11/07/24 14:00 12/07/24 13:59 Sucralfate (Carafate) 1 gm TID PO 11/08/24 21:00 12/08/24 20:59 11/11/24 08:28 1 GM Tramadol HCl (UltRAM) 25 mg Q6H PRN PO MODERATE PAIN (4-6) 11/07/24 14:00 11/09/24 08:37 DC Tramadol HCl (UltRAM) 50 mg Q6H PRN PO SEVERE PAIN (7-10) 11/07/24 14:00 11/09/24 08:37 DC 11/08/24 23:30 50 MG Vitamin B Complex (Vitamin B-12) 1,000 mcg DAILY IM 11/07/24 09:00 11/13/24 08:59 11/11/24 08:28 1,000 MCG DIAGNOSTICS / RADIOLOGY: [address] [address] IMAGING REPORT Signed PATIENT: CLARE VALADEZ MR#: [id number] : 1955 SEX: M AGE: 68 LOCATION: [facility] ORDER 230 STATUS: ADM IN REPORT#: [id number] SERVICE 0400 REASON: s/p CABG ORDERING PHYSICIAN: JLUIS MENDOZA MD PROCEDURE: CXR1VW - CHEST 1VW EXAM: CR Chest, 1 View. CLINICAL HISTORY: s/p CABG COMPARISON: Yesterday. FINDINGS: LUNGS: Mild pulmonary vascular congestion. PLEURAL SPACES: Small left pleural effusion. MEDIASTINUM: Status post median sternotomy. Left-sided support device unchanged in position overlying left cardiac border. BONES: No aggressive appearing osseous lesion seen. MISCELLANEOUS: Left chest tube. Right internal jugular introducer catheter. IMPRESSION: 1. Mild pulmonary vascular congestion. 2. Small left pleural effusion. 3. Left-sided cardiac support device, unchanged. 4. Left chest tube and right internal jugular introducer catheter present. 5. Status post median sternotomy. /[facility] DICTATED BY: TORI RAUSCH MD DATE: 11/11/24915 ELECTRONICALLY SIGNED BY: TORI RAUSCH MD DATE: 10/01/25 0916 ASSESSMENT: Coronary artery disease, POA, s/p CABG 3v and redo sternotomy with redo of graft failure now s/p CABG with 4v Hyperlipidemia, POA Grave's disease, POA Peripheral artery disease, suspected Carotid artery stenosis PLAN: Coronary artery disease, POA s/p CABG 3v and redo sternotomy with redo of graft failure now s/p CABG with 4v * Administer aspirin 325 mg p.o. now and then continue aspirin 81 mg p.o. daily * Troponin every 6 hours, serial troponin levels are 9-9-12-11. * Supplemental oxygen as needed to maintain SpO2 greater than 94% * Monitor for recurrence of chest pain, arrhythmias, or hemodynamic changes * Electrocardiogram was done which is normal. * A 2D Echo has been ordered due to patients history of chest pain on exertion and rest. * A cardiology consult has been placed for evaluation of CAD in patient with exertional chest pain and vascular disease. 11/04/24 * Echocardiogram was done which revealed aortic valve: trileaflet, mildly sclerotic, and opens well. * Pending Coronary CTA reports. * Lipid panels has been ordered to assess Cardiovascular risks. Results unremarkable. * In coronary CT angiography there is mixed calcified and noncalcified plaque in the proximal LAD with 80-90% stenosis. Left circumflex coronary artery: Normal caliber, nondominant and gives rise to a large OM branch. There is mixed calcified and noncalcified plaque in the mid LCx with 80-90% stenosis. * CAD-RAD of 4B. * Left heart catheterization with selective right and left coronary angiography was performed which showed critical left main disease. Severe ostial RCA stenosis. 11/06/24 * He complaints of headache 8/10 of intensity after the administration of Nitroglycerin. Tylenol has been administered. Closely monitoring the patient. * Cardiac catheterization demonstrated a very tight left main lesion and the patient is referred for surgical revascularization. * Patient is POD 4 S/P CABG, patient is being managed in the ICU per protocol. * Recent ABG shows lactic acid is 1.03. * CT surgery is planning to wean Impella and pressors * We will continue to following Cardiology and critical care recommendations. Peripheral vascular disease, Suspected * Patient has history of exertional bilateral leg pain * Diminished peripheral pulses * A SERA has been ordered due to the patients complaint of bilateral lower extremity claudication, and numbness/tingling in bilateral lower extremities. * Clear aspirin 81 mg daily and statin 40mg * Encouraged supervised exercise therapy for claudication * Counseled on continued smoking cessation 11/04/24 Peripheral Neuropathy * Vitamin B12 has been ordered to rule out peripheral neuropathy.11/05/24 * Complained of numbness and tingling in his limbs. * Vitamin B12 level was measured which showed 173L. * Patient has been started on vitamin B12 supplement 1000 mcg for 6 days. Carotid artery stenosis * Presence of bilateral carotid bruit on exam, suspicion for significant stenosis * Carotid Duplex ultrasound has been done, awaiting reports * Risk factor modification: Smoking cessation, BP control, glycemic control. 11/04/24 * Carotid artery ultrasound showed Bilateral ICA/CCA ratio more than 4.0 suggesting more than 70% stenosis. 11/05/24 * Cardiology recommended CT/MR angiogram when stable from surgical standpoint Hyperlipidemia * Continue home statin therapy atorvastatin 40 mg * Reinforce low-cholesterol, heart healthy diet (limit saturated fats, increase fiber, fruits and vegetables) * Encouraged regular physical activity as tolerated * Monitor lipid panel * Outpatient follow up with PCP/Cardiology for long-term lipid management and cardiovascular risks reduction Supportive measures * Start patient on GI prophylaxis * DVT prophylaxis * Monitor morning labs CBC and BMP daily * He is on clear liquid diet Hypothyroidism * Continue home medication of Synthroid * TSH 1.33. ATTESTATION BY PHYSICIAN I have seen and examined the patient. I reviewed the documentation, medical decision making, and treatment plan as noted by the resident provider above. I agree with the findings and plan of care. Shawn Loera IV, MD, AKSHAY MD Nov 11, 2024 14:20
--- NOTE | 2024-11-11 17:22 | PN ---
[facility] CARDIOLOGY PROGRESS NOTE Date Patient Seen: Nov 11, 2024 Time of Visit: 17:19 Interval History: [s/p CABG 11/07. No acute events overnight. Overnight urine output 3150 mL, net-1842 mL. Patient continues on Impella support P-6 , minimal pressor settings. Patient currently denies any cardiac symptoms or anginal equivalents. Hemodynamically stable Physical Examination: GENERAL: No acute distress. HEAD: Normal with no signs of head trauma. EYES: PERRLA, EOMI, conjunctiva and sclera normal. ENT: Hearing grossly intact, normal oropharynx. NECK: Supple without JVD. There is no tenderness, lymphadenopathy, or masses. No thyromegaly. Normal carotid upstrokes without bruits. LUNGS: Clear breath sounds bilaterally. No wheezes, or rhonchi. HEART: Normal rate and rhythm. Normal S1 and S2 without murmurs, gallop or rub. VASC: Peripheral pulses +2 bilaterally. ABD: Bowel sounds normal, soft, nontender, no masses, no organomegaly. No audible bruits. : Not examined LYMPH: No lymphadenopathy noted. EXT: No clubbing, cyanosis or edema. SKIN: No rashes or lesions noted. NEURO: Awake, alert, and oriented x3. No focal sensory or strength deficits noted. Laboratory: [ ] Hematology Labs: Test 11/11/24 03:35 Range/Units White Blood Count 11.7 H 4.8-10.8 K/uL Red Blood Count 3.03 L 4.50-6.20 MIL/uL Hemoglobin 9.7 L 14.0-18.0 g/dL Hematocrit 30.6 L 42-54 % Mean Corpuscular Volume 101.0 H 79-99 fL Mean Corpuscular Hemoglobin 32.0 27.0-33.0 pg Mean Corpuscular Hemoglobin Concent 31.7 L 32.0-36.0 g/dL Red Cell Distribution Width 13.4 11.0-15.5 % Platelet Count 106 L 130-400 K/uL Mean Platelet Volume 11.2 H 7.5-10.5 fL Nucleated Red Blood Cells 0.0 0.0-0.19 % Chemistry Labs: Test 11/11/24 09:25 11/11/24 03:35 11/10/24 03:51 Range/Units Sodium Level 140 136-145 mmol/L Potassium Level 3.8 3.5-5.1 mmol/L Chloride Level 103 101-111 mmol/L Carbon Dioxide Level 30 21-32 mmol/L Blood Urea Nitrogen 16 7-18 mg/dL Creatinine 1.0 0.5-1.3 mg/dL Glomerular Filtration Rate Calc 82 >90 mL/min Random Glucose 107 H 70-105 mg/dL Total Calcium 8.3 L 8.5-10.1 mg/dL Total Bilirubin 0.6 0.2-1.0 mg/dL Direct Bilirubin 0.2 0.0-0.3 mg/dL Aspartate Amino Transf (AST/SGOT) 87 H 10-37 U/L Alanine Aminotransferase (ALT/SGPT) 62 # 12-78 U/L Alkaline Phosphatase 62 50-136 U/L Total Protein 5.1 L 6.0-8.3 g/dL Albumin 2.0 L 3.5-5.0 g/dL Phosphorus Level 3.7 2.5-4.9 mg/dL Magnesium Level 2.20 1.80-2.40 mg/dL Coagulation Labs: Test 11/10/24 03:51 Range/Units Prothrombin Time 10.9 9.6-11.6 SEC Prothromb Time International Ratio 1.03 0.85-1.15 Activated Partial Thromboplast Time 25.5 L 26.3-35.5 SEC Diagnostics / Radiology: [Copy/Paste Echos/Imaging Report here] Impression and Plan: [Chest pain Hyperlipidemia CAD s/p PTCA to unknown vessel approximately 30 years ago Ex-smoker of 1 PPD with cessation 2 months ago Graves disease #CAD -s/p CABG 3v c/b bradycardia and redo sternotomy with redo of graft failure now s/p CABG with 4v Cardiac enzymes negative x5. EKG demonstrated normal sinus rhythm with heart rate of 67bpm, no acute ischemia noted. -2Decho results LVEF is 60-65%. no wall motion or valvular abnormalities. -CCTA There is mixed calcified and noncalcified plaque in the proximal LAD with 80-90% stenosis. Left circumflex coronary artery: Normal caliber, nondominant and gives rise to a large OM branch. There is mixed calcified and noncalcified plaque in the mid LCx with 80-90% stenosis. CAD-RAD of 4 -LHC with multivessel CAD including left main - Overnight urine output 3150 mL, net-1842 mL. Patient continues on Impella support has been weaned off to P-6 -Continue ASA 81 mg daily atorvastatin 40 mg daily , lopressor 12.5 mg every 12 hrs, lasix 20 mg IV bid -Continue [id number] mg daily -we will continue to wean off pressors. Impella currently at P-6 -patient is currently in normal sinus rhythm, we will defer the use of amiodarone at this time -due to the patient's elevated LFTs statins are being held. LFTs continue improving. -once the patient is off pressor support we will initiate beta-blockers -rest of care per CV surgery -PT/OT #Carotid arterial Disease carotid US 11/05: Mild intimal thickening in the bilateral carotid arteries and their branches. Bilateral ICA/CCA ratio is more than 4.0 suggesting more than 70% stenosis. Raised velocities in the bilateral external and internal carotid arteries. Recommend CT/MR angiogram when stable from surgical standpoint -aspirin , statin Thank you for this consult cardiology will continue to follow along. ] ATTESTATION BY PHYSICIAN I have seen and examined the patient, reviewed the above documentation, participated in medical decision making, made necessary modifications, and agree with the treatment plan as documented by my mid-level provider above. MD JUAN Caldwell JAMES R MD Nov 11, 2024 17:22
[2024-11-11 22:05] LABS: CREATININE 0.9 mg/dL (0.5-1.3); GLOMERULAR FILTR. RATE CALC 94.0 mL/min (>90); GLUCOSE,RANDOM 83.0 mg/dL (70-105); SODIUM SERUM 140.0 mmol/L (136-145); UREA NITROGEN, BLOOD 15.0 mg/dL (7-18)
--- NOTE | 2024-11-11 23:39 | PN ---
SUBJECTIVE: The patient is postop day 3 from an Impella supported coronary artery bypass grafting. The patient has been doing well in the ICU and offers no complaints. He has slowly been weaned on his epinephrine drip. OBJECTIVE: VITAL SIGNS: Temperature 98.1. Blood pressure is 104/68, pulse 67, oxygen saturation 100%. HEENT: Examination reveals normocephalic, atraumatic. He has a right cervical Cordis introducer through which he is receiving epinephrine at 0.02 mcg/kg/minute. He has a left lower cervical 5.5 Impella catheter. He has nasal cannula oxygen prongs under his nose. CHEST: His sternal wound is bandaged. HEART: S1 and S2 and regular. LUNGS: Reveal mild rales. ABDOMEN: Soft and nontender. GENITOURINARY: He has a Daniel catheter in his bladder. EXTREMITIES: He has SCDs on his lower extremities. LABORATORY DATA: His creatinine is 1.1. His liver function tests have markedly improved. ASSESSMENT AND PLAN: 1. Status post L5.5 Impella supported coronary artery bypass grafting. Continue aspirin and Plavix, Lasix, midodrine and wean off of epinephrine drip. Once off pressors, we will wean Impella. Get the patient up out of bed and into chairs. 2. Postoperative acute pulmonary insufficiency. Encouraged incentive spirometry. Wean nasal cannula oxygen to maintain oxygen saturations greater than 90%. 3. Hypercholesterolemia. We will begin Lipitor now that his liver function tests have improved markedly. 4. Deep venous thrombosis prophylaxis. SCDs to lower extremities. Time spent 30 minutes. The patient was critically ill in the ICU. TID: [id number] RECEIPT: [id number]
--- NOTE | 2024-11-11 23:45 | PN ---
SUBJECTIVE: The patient is postop day 4 from an Impella-supported coronary artery bypass grafting. The patient remains on epinephrine. This had to be increased to 0.04 mcg per kg per minute today. OBJECTIVE: VITAL SIGNS: His vital signs reveal pulse 77. Blood pressure is 133/78. Respirations are 16 breaths per minute. HEENT: Reveals to be normocephalic, atraumatic. Extraocular movements intact. He has nasal cannula oxygen prongs under his nose. He has a right cervical central venous line for which he is receiving an epinephrine drip. HEART: His heart is S1 and S2 and regular. He has a left cervical L5.5 Impella catheter running at P8, giving him 4.4 liters per minute per meter squared. CHEST: His sternal wound is bandaged. His chest tubes are in place with 220 out of his pleural tubes and 210 out of his mediastinal tube. ABDOMEN: His abdomen reveals he is soft, nontender with mild to moderate obesity. GENITOURINARY: He has a Daniel catheter in his bladder. EXTREMITIES: He has SCDs on his lower extremities. ASSESSMENT AND PLAN: * Status post Impella-supported coronary artery bypass grafting. We will increase midodrine up to 15 mg t.i.d. and wean off of the epinephrine drip. Once he is off the epinephrine drip, we can begin to wean his Impella catheter. Continue aspirin and Lasix. Get the patient up in a chair and attempt ambulation with physical therapy/occupational therapy. * Postoperative acute pulmonary insufficiency. Wean nasal cannula oxygen, maintain oxygen saturation greater than 90% on room air. Encouraged incentive spirometry. * Hypercholesterolemia. Continue Lipitor 40 mg p.o. at bedtime. His liver function has continued to decrease. * Deep venous thrombosis prophylaxis. Continue SCDs to lower extremities. Time spent 30 minutes. Patient is critically ill and in the ICU. TID: [id number] RECEIPT: [id number]
[2024-11-12] VITALS (109 sets, daily range): BP systolic 24–157; BP diastolic 13–142; PULSE 35–91; RESP 11–29; TEMP 97.7–98.3; O2SAT 97–99
[2024-11-12 05:25] LABS: ABG BASE EXCESS 3.8 mmol/L (-2.0-3.0); ABG HCO3 27.2 mmol/L (21.0-28.0); ABG OXYGEN SATURATION 94.5 % (94.0-98.0); ABG PCO2 37 mmHg (35-48); ABG PH 7.487 (7.350-7.450); CARBON MONOXIDE 0.3 % (0.5-1.5); PO2, ARTERIAL BG 74.7 mmHg (83.0-108.0); TEMPERATURE, CELSIUS BG 37.0 CELSIUS (35.5-37.0); VENT MODE, BG OXYMIZER NC (ROOM AIR)
[2024-11-12 05:38] LABS: NUCLEATED RED BLOOD CELLS 0.0 % (0.0-0.19); PLATELET COUNT (AUTO) 94.0 K/uL (130-400); RED BLOOD CELL COUNT(AUTO) 3.02 MIL/uL (4.50-6.20); RED CELL DISTRIBUTION WIDTH 12.9 % (11.0-15.5); WHITE BLOOD COUNT (AUTO) 8.5 K/uL (4.8-10.8)
[2024-11-12 05:53] LABS: CREATININE 0.9 mg/dL (0.5-1.3); GLOMERULAR FILTR. RATE CALC 93.0 mL/min (>90); GLUCOSE,RANDOM 81.0 mg/dL (70-105); SODIUM SERUM 139.0 mmol/L (136-145); UREA NITROGEN, BLOOD 14.0 mg/dL (7-18)
[2024-11-12 06:03] LABS: ASPARTATE AMINOTRANSFERASE 75.0 U/L (10-37); TOTAL PROTEIN, SERUM 4.9 g/dL (6.0-8.3)
--- NOTE | 2024-11-12 08:15 | HMCIMG ---
EXAM: CR Chest, 1 View. CLINICAL HISTORY: s/p CABG COMPARISON: Yesterday FINDINGS: LUNGS: Subsegmental atelectasis within right midlung. PLEURAL SPACES: No evidence of pleural effusion or pneumothorax. MEDIASTINUM: Left-sided cardiac support device. Mediastinal drain. Left chest tube. BONES: No acute osseous abnormality. MISCELLANEOUS: Right internal jugular line. IMPRESSION: 1. No acute cardiopulmonary findings. 2. Stable subsegmental atelectasis in right midlung. 3. Unchanged left-sided cardiac support device, mediastinal drain, and left chest tube. 4. Right internal jugular line in place. /[place]
--- NOTE | 2024-11-12 10:01 | PN ---
[facility] PROGRESS NOTE Date Patient Seen: Nov 12, 2024 Time of Visit: 09:58 Supervising Physician: Dr Sincere Puri Primary Care Physician: Self Referral Outpatient Specialists: [ ] Inpatient Consults: [facility], Dr Jacobo, Dr Wellington , Dr Meza PROBLEM LIST: MvCAD s/p CABG x 3+1 w/ redo on 11/07/24 Impella 5 x 5 Postop acute anemia requiring transfusion ELSA Hyperlipidemia Sclerotic nodule on the non coronary cusp on 2D echo Normal ventricular diastolic function with LVEF of 60-65% on 2D echo 11/05/24 Former smoker Graves disease Obesity INTERVAL HISTORY: Patient seen and examined, all labs and imaging have been reviewed, patient is sitting comfortably in bed, patient has not Impella at P5, with left subclavian placement He is awake alert and oriented reporting no chest pain or shortness of breath Good saturations on nasal cannula 2 L Off pressors, off epi Urine output at goal Chest tube minimal No acute events overnight New a line placed this morning Plan: Following Cardiothoracic Surgeons postop protocol Neurovascular checks per protocol Weaning Impella per CTS Weaning pressors I&Os Cardiac diet Telemetry PT/OT Total critical care time 48 minutes, patient remains critical requiring pressors, Impella support. Time excludes any educational time or procedures performed REVIEW OF SYSTEMS: 12 point ROS reviewed with patient. Pertinent positives mentioned above. Otherwise negative. PHYSICAL EXAM: GENERAL: alert, weak, awake oriented x 3 HEENT: EOMI, Sclera non icteric, moist mucosa NECK: Supple, no JVD, trachea midline right IJ. Subclavian Impella 5.5 LUNGS: Rhonchi to right lower lobes. No wheezes HEART: Regular rate and rhythm. Normal S1 and S2, without murmurs mid incision line tenderness. Dressing clean dry and intact. ABD: Abdomen soft, nontender. Bowel sounds present EXT: No clubbing cyanosis or edema. Left femoral sheath. NEURO: Alert and oriented to person, follows commands Vital Signs (last 8hr) Date Time Temp Pulse Resp B/P (MAP) Pulse Ox O2 Delivery O2 Flow Rate FiO2 11/12/24 07:19 62 18 N/Cannula Oximizer Hi LPM 2.0 28 11/12/24 07:14 63 16 11/12/24 06:10 60 19 99 91/57 (68) 11/12/24 05:55 60 18 99 85/55 (65) 11/12/24 05:40 63 16 99 90/56 (67) 11/12/24 05:25 64 17 99 101/60 (74) 11/12/24 05:10 63 19 98 85/59 (68) 11/12/24 04:55 62 18 98 81/56 (64) 11/12/24 04:40 67 16 100 90/54 (66) 11/12/24 04:25 66 17 99 74/41 (52) 11/12/24 04:10 97.7 59 15 99 86/52 (63) 11/12/24 04:00 98 Nasal Cannula* 4 N/A N/C Oxymizer Hi LPM* 11/12/24 03:55 57 16 100 84/46 (59) 11/12/24 03:40 58 17 99 87/56 (66) 11/12/24 03:25 63 17 100 88/57 (67) 11/12/24 03:10 60 19 100 91/53 (66) 11/12/24 02:55 56 12 99 86/53 (64) 11/12/24 02:40 63 14 100 80/53 (62) 11/12/24 02:26 62 16 98 88/62 (71) 11/12/24 02:10 59 16 99 91/54 (66) LABS: Hematology Labs: Test 11/12/24 05:28 Range/Units White Blood Count 8.5 4.8-10.8 K/uL Red Blood Count 3.02 L 4.50-6.20 MIL/uL Hemoglobin 9.6 L 14.0-18.0 g/dL Hematocrit 29.7 L 42-54 % Mean Corpuscular Volume 98.3 79-99 fL Mean Corpuscular Hemoglobin 31.8 27.0-33.0 pg Mean Corpuscular Hemoglobin Concent 32.3 32.0-36.0 g/dL Red Cell Distribution Width 12.9 11.0-15.5 % Platelet Count 94 L 130-400 K/uL Mean Platelet Volume 10.7 H 7.5-10.5 fL Nucleated Red Blood Cells 0.0 0.0-0.19 % Chemistry Labs: Test 11/12/24 05:28 Range/Units Sodium Level 139 136-145 mmol/L Potassium Level 3.6 3.5-5.1 mmol/L Chloride Level 103 101-111 mmol/L Carbon Dioxide Level 26 21-32 mmol/L Blood Urea Nitrogen 14 7-18 mg/dL Creatinine 0.9 0.5-1.3 mg/dL Glomerular Filtration Rate Calc 93 >90 mL/min Random Glucose 81 70-105 mg/dL Total Calcium 7.5 L 8.5-10.1 mg/dL Total Bilirubin 0.6 0.2-1.0 mg/dL Direct Bilirubin 0.2 0.0-0.3 mg/dL Aspartate Amino Transf (AST/SGOT) 75 H 10-37 U/L Alanine Aminotransferase (ALT/SGPT) 54 12-78 U/L Alkaline Phosphatase 57 50-136 U/L Total Protein 4.9 L 6.0-8.3 g/dL Albumin 1.9 L 3.5-5.0 g/dL DIAGNOSTICS / RADIOLOGY RESULTS: [ ] PLAN NEURO: Minimize central acting medications as possible. Fall Precautions. Well lighted room through the day and minimize interruptions through the night to prevent acute delirium. PULMONARY: Supplemental 02 as needed Titrate Fio2 to keep Spo2 > or = 90% DuoNebs and CPT as needed IS hourly while awake for pulmonary hygiene Out of bed to chair as tolerated VAP Bundle Bipap 12/6 fio2 50% RT to titrate FiO2 as needed to maintain O2 above 92% CARDIOVASCULAR: Follow hemodynamics. Titrate vasopressor to keep MAP >65 or systolic blood pressure >95mmHg DIPS: Levophed Epi Lidocaine Insulin LINES: Central venous catheter right IJ Impella Chest tube A line Daniel catheter Left femoral sheath in place GI & NUTRITION: NPO for now Aspirations precautions Prokinetic agents and laxatives as needed KIDNEYS & ELECTROLYTES: Strict monitoring of intake and output Daily weights Avoid nephrotoxic agents Monitor electrolytes and replace as needed Goal urine output of 30mL/hr or 0.5mL/kg/hr Urine output 2 L in last 24 hours Chest tube drained 400 mL to lateral side Mediastinal drain 90 mL with I&O balance positive 230 mL ENDOCRINE: Maintain blood glucose between 100-180 at all times. Insulin sliding scale for blood glucose management INFECTIOUS DISEASE: Trend temperature. Nichols-culture if febrile. Micro: [ ] MRSA negative Antibiotics: [ ] Ancef HEMATOLOGY & COAGULATION: Monitor H&H. Keep Hgb > 7 Transfuse 1 unit of PRBC for Hgb < 7 Transfuse 1 pack of platelets of platelets < 20, 000 Watch for any signs and symptoms of bleeding SKIN: Pressure ulcer prevention per facility protocol Rehab: PT/OT Prophylaxis: GI: [ Protonix 40 mg IV b.i.d.] DVT: [Al hose per CV ] Code Status: Full Resuscitation Disposition: [ ICU] Case was discussed and seen with my supervising physician. The above plan was formulated and agreed upon. SNOW MATAMOORS Nov 12, 2024 10:01
[2024-11-12] MEDS: LIDOCAINE HCL 400MG/20ML VIAL ONE (10:06)
--- NOTE | 2024-11-12 10:31 | PRN ---
This is a procedure note. Indication: Need for invasive blood pressure monitoring Diagnosis: Patient status post CABG, requiring invasive blood pressure monitoring Patient continues on cardiac assistance with Impella Procedure performed: 1. Arterial line insertion. 2. Intraoperative Ultrasound Site: Right axillary Description of procedure: Consent obatined. Consent waived, procedure performed emergently. Hand hygiene. Time out done. Chlorhexidine was used to prepare the skin. Intraoperative US was used to localize vascular structure and intra-arterial access of guidewire. Arterial line inserted with Seldinger technique on site specified above. Line secured at the hub. Patient tolerated procedure well. No immediate complications. SNOW MATAMOROS Nov 12, 2024 10:31
--- NOTE | 2024-11-12 11:17 | PN ---
[facility] PROGRESS NOTE Date of Service: Nov 12, 2024 Time of Service: 11:16 SUBJECTIVE: Mr. Valadez a 68-year-old male that was seen and examined today on 11/03/2024. Patient reports that he came to the emergency department with a chief complaint of chest pain. Onset was two or three years ago. He had similar repeated episodes months back which resolved on its own. Today's episode began at 11:00 a.m. Location is midsternal. Duration is on and off. Character is described as "neck someone is pushing a knuckle into the center of my chest. The chest pain did not radiate to shoulder, neck or jaw. "There was no alleviating factors. There was no aggravating factors. Patient reports that symptoms seemingly resolve on their own. He denies nausea, vomiting, fever and any other associated symptoms. Patient denies any associated shortness of breath. Patient has a past medical history of hyperlipidemia and Graves disease. He has been taking atorvastatin and Synthroid as his home medications. Today in the emergency department WBC 5.8, hemoglobin 12.9 platelets 197. His chemistries were within normal limits sodium 140, potassium 4.2, blood urea nitrogen 15 and creatinine 1.0. His electrocardiogram showed normal sinus rhythm. Patient will be admitted for further evaluation and related recommendations in Med-Surg. 11/04/24 Patient was evaluated at the bedside in ED-09. He reports that he is having chest pain that comes and goes. The patient reports having 2 episodes of chest pain in the last hour. He denies associated symptoms such as shortness of breath, palpitation, diaphoresis, dizziness, nausea or syncope. He does however complain of muscle pain in his lower limbs described as a dull aching discomfort that begins in the hip region that is worsened with movement. The patient complains of tingling and numbness in his feet bilaterally. No fever, chills or recent infection reported. Appetite and oral intake are normal. No other acute complaints at this time. On physical exam, a systolic murmur was auscultated over the aortic area. Bilateral carotid bruits are present. Lower extremities are cool to the touch with diminished pedal pulses. Patient reports bilateral leg muscle pain with exertion (suggestive of claudication), and chronic numbness and tingling in the feet. Patient reports recently quitting smoking tobacco for 2 months. He had a 1 pack a day smoking history since 1968. 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 The patient says his chest pain has been ongoing for the past 3 years, and that it gets worse with exertion and at rest. 11/05/24 Patient was evaluated at the bedside room 231. He was hemodynamically stable. Hi symptoms has improved significantly. He doesn't complain of chest pain, shortness of breath and any other associated symptoms. Echocardiogram was done which revealed aortic valve: trileaflet, mildly sclerotic, and opens well. Carotid artery ultrasound showed Bilateral ICA/CCA ratio more than 4.0 suggesting more than 70% stenosis. 11/06/24 Patient was evaluated at the bedside room 231. He was hemodynamically stable. Hi symptoms has improved significantly. He doesn't complain of chest pain, shortness of breath and any other associated symptoms. In coronary CT angiography there is mixed calcified and noncalcified plaque in the proximal LAD with 80-90% stenosis. Left circumflex coronary artery: Normal caliber, nondominant and gives rise to a large OM branch. There is mixed calcified and noncalcified plaque in the mid LCx with 80-90% stenosis. CAD-RAD of 4B. Left heart catheterization with selective right and left coronary angiography was performed which showed critical left main disease. 11/07/24 Patient was evaluated at the bedside room 231. He was hemodynamically stable. He doesn't complain of chest pain, shortness of breath and any other associated symptoms. He complaints of headache 8/10 of intensity after the administration of Nitroglycerin. Cardiac catheterization demonstrated a very tight left main lesion and the patient is referred for surgical revascularization. As per Dr Mendoza: Surgery is planned for today. 11/08/24: Patient was seen and evaluated this morning at bedside. The patient is POD 1 s/p CABG. Patient is currently being managed in the ICU. The patients most recent ABG shows a pH of 7.43, ABG PCO2 47, ABG PO2 77.9, ABG HCO3 30.8. Recent ABG shows improving lactic acid, from 8 to 3.85. The patients chemistry reveals a sodium level 157, potassium level 3.4, creatinine 1.9, BUN 19, GFR 38, phosphorous 2.2. Liver enzymes are trending up, with an ALT level at 325 and an AST level at 869. The patients home medication of Synthroid has been restarted. Chest x-ray ordered today, results pending. We will continue to follow recommendations from critical care team, and cardiology. 11/09/2024: Patient is seen and evaluated in the room 213. The patient is POD 2 s/p CABG. Patient is currently being managed in the ICU. He is complaining of pain. His vitals are in the normal range. His Hb is 11.1, WBC is 19.1, Plt is 115, sodium is 154, chloride is 113, glucose is 122. His recent ABG shows that pH is 7.472, pO2 is 80.1, bicarb is 30.4, Hb is 11.4, lactic acid is 1.63. His chest X-ray on 11/08 showed improved aeration within the left perihilar and left basilar regions. As per nurse he is having intervention confusion, stopped lidocaine and they also weaning on pressors norepinephrine and epinephrine. The drain output from left anterior chest is 20ml, mediastinal lateral is 160ml, mediastinal mediastinal is 300ml, right anterior chest is 160 ml. We will continue to follow recommendations from critical care team, and cardiology. 11/10/2024: Patient was seen and evaluated this morning at bedside. The patient is POD 3 s/p CABG. Patient is currently being managed in the ICU. He is not having any symptoms today. His vitals are in the normal range. His labs are normal except for Hb is 10.1, WBC is 14.7, plt is 85, sodium is 147, AST is 156, ALT is 95, APTT is 25.5. ABG shows that his pH is 7.4, lactate is 1.22, bicarb is 31. The drain output from left anterior chest is 170 ml, mediastinal mediastinal is 130ml. We will continue to follow recommendations from critical care team, and cardiology. 11/11/2024: Patient was seen and evaluated this morning at bedside. The patient is POD 4 s/p CABG. He is not having any symptoms today. His vitals are in the normal range. His labs are normal except for hemoglobin is 9.7, WBC is 11.7, platelet is 106, glucose is 107, AST is 87, ALT is 62. ABG shows pH is 7.468, lactic acid is 1.03. We will continue to follow recommendations from critical care team, and cardiology. 11/12/2024: Patient was seen and evaluated in the room 218. The patient is POD 5 s/p CABG. He is having dizziness and ache in the left shoulder. His vitals are in the normal range. His labs are normal except for hemoglobin 9.6, platelets is 94, AST 75. ABG shows pH 7.487, lactic acid 1.2. Currently he is not on any pressors. Cardiovascular surgery tried to wean Impella. They decreased impella setting to P4 but his blood pressure is low so they went back to P5. Cardiovascular surgery also increased his midodrine dose to 15mg. His chest X- ray showed mild pulmonary vascular congestion. He had a bowel movement and good urine output. He is using incentive spirometry well. We will continue to follow recommendations from the critical Care team and Cardiology. REVIEW OF SYSTEMS CONSTITUTIONAL: Pain in his left shoulder No fever, chills, or night sweats. NEUROLOGICAL: No headache no sensory and motor deficit. CARDIOVASCULAR: Dizziness Denies any exertional angina, dyspnea on exertion, palpitations. PULMONARY: Denies any shortness of breath, cough, phlegm/sputum, hemoptysis, pleuritic chest pain. GASTROINTESTINAL: Denies nausea, vomiting. Denies pain, tenderness around the abdomen. GENITOURINARY: Denies frequency, urgency, nocturia, hematuria or incontinence. PHYSICAL EXAM GENERAL APPEARANCE: The patient is alert, awake and oriented and bedbound. NEUROLOGICAL: No sensory and motor deficits. CHEST: left anterior chest , mediastinal mediastinal drains are present. Normal chest expansion. LUNGS: Normal vesicular breath sound. Absence of any rales, rhonchi or any wheezing. CARDIOVASCULAR: Systolic murmur heard over aortic area. Bilateral carotid bruits heard. No JVD. ABDOMEN: Soft nontender, and nondistended. There is no rebound, voluntary guarding, or rigidity. No abdominal bruit heard. GENITOURINARY: No suprapubic tenderness. No costovertebral angle tenderness. EXTREMITIES: Limbs are non-edematous. Vital Signs (last 8hr) Date Time Temp Pulse Resp B/P (MAP) Pulse Ox O2 Delivery O2 Flow Rate FiO2 11/12/24 10:00 62 18 105/57 (73) 97 11/12/24 09:45 68 19 111/61 (78) 98 11/12/24 09:30 65 18 98 11/12/24 09:15 61 14 94 11/12/24 09:00 66 18 99 11/12/24 08:45 66 16 100 11/12/24 08:30 66 18 96 11/12/24 08:25 65 18 110/57 (74) 98 11/12/24 08:15 61 18 100 11/12/24 08:10 68 15 91/64 (73) 100 11/12/24 08:00 98.2 11/12/24 08:00 98 Nasal Cannula* 2 N/A N/C Oxymizer Hi LPM* 11/12/24 08:00 66 18 99 11/12/24 07:55 67 18 99/58 (72) 97 11/12/24 07:45 66 18 99 11/12/24 07:40 64 15 95/63 (74) 100 11/12/24 07:30 66 17 101/39 (59) 99 11/12/24 07:19 62 18 N/Cannula Oximizer Hi LPM 2.0 28 11/12/24 07:15 60 18 98 11/12/24 07:14 63 16 11/12/24 07:10 61 18 93/59 (70) 99 11/12/24 07:00 62 19 98 11/12/24 06:10 60 19 99 91/57 (68) 11/12/24 05:55 60 18 99 85/55 (65) 11/12/24 05:40 63 16 99 90/56 (67) 11/12/24 05:25 64 17 99 101/60 (74) 11/12/24 05:10 63 19 98 85/59 (68) 11/12/24 04:55 62 18 98 81/56 (64) 11/12/24 04:40 67 16 100 90/54 (66) 11/12/24 04:25 66 17 99 74/41 (52) 11/12/24 04:10 97.7 59 15 99 86/52 (63) 11/12/24 04:00 98 Nasal Cannula* 4 N/A N/C Oxymizer Hi LPM* 11/12/24 03:55 57 16 100 84/46 (59) 11/12/24 03:40 58 17 99 87/56 (66) 11/12/24 03:25 63 17 100 88/57 (67) LABS: Laboratory: Test 11/12/24 05:28 11/12/24 05:24 Range/Units White Blood Count 8.5 4.8-10.8 K/uL Red Blood Count 3.02 L 4.50-6.20 MIL/uL Hemoglobin 9.6 L 14.0-18.0 g/dL Hematocrit 29.7 L 42-54 % Mean Corpuscular Volume 98.3 79-99 fL Mean Corpuscular Hemoglobin 31.8 27.0-33.0 pg Mean Corpuscular Hemoglobin Concent 32.3 32.0-36.0 g/dL Red Cell Distribution Width 12.9 11.0-15.5 % Platelet Count 94 L 130-400 K/uL Mean Platelet Volume 10.7 H 7.5-10.5 fL Nucleated Red Blood Cells 0.0 0.0-0.19 % Sodium Level 139 136-145 mmol/L Potassium Level 3.6 3.5-5.1 mmol/L Chloride Level 103 101-111 mmol/L Carbon Dioxide Level 26 21-32 mmol/L Blood Urea Nitrogen 14 7-18 mg/dL Creatinine 0.9 0.5-1.3 mg/dL Glomerular Filtration Rate Calc 93 >90 mL/min Random Glucose 81 70-105 mg/dL Total Calcium 7.5 L 8.5-10.1 mg/dL Total Bilirubin 0.6 0.2-1.0 mg/dL Direct Bilirubin 0.2 0.0-0.3 mg/dL Aspartate Amino Transf (AST/SGOT) 75 H 10-37 U/L Alanine Aminotransferase (ALT/SGPT) 54 12-78 U/L Alkaline Phosphatase 57 50-136 U/L Total Protein 4.9 L 6.0-8.3 g/dL Albumin 1.9 L 3.5-5.0 g/dL Blood Gas Specimen Type Arterial Arterial Blood pH 7.487 H 7.350-7.450 Arterial Blood Partial Pressure CO2 37 35-48 mmHg Arterial Blood Partial Pressure O2 74.7 L 83.0-108.0 mmHg Arterial Blood HCO3 27.2 21.0-28.0 mmol/L Arterial Blood Oxygen Saturation 94.5 94.0-98.0 % Arterial Blood Base Excess 3.8 H -2.0-3.0 mmol/L Hemoglobin (Blood Gas) 10.5 L 13.5-17.5 g/dL Sodium (Blood Gas) 135 L 136-145 MMOL/L Bedside Potassium (Blood Gas) 3.6 3.4-4.5 MMOL/L Bedside Chloride (Blood Gas) 102 98-107 MMOL/L Bedside Glucose (Blood Gas) 82 65-95 MG/DL Bedside Ionized Calcium (Blood Gas) 1.06 L 1.15-1.33 MMOL/L Bedside Lactic Acid (Blood Gas) 1.21 H 0.36-0.75 MMOL/L Blood Gas Temperature 37.0 35.5-37.0 CELSIUS Blood Gas Flow-by 4.00 0.00-15.00 L/min Blood Gas Vent Mode OXYMIZER NC ROOM AIR FiO2 36.0 % Blood Gas Specimen Comment RB RN ALYSHA Current Medications Medications (Trade) Dose Ordered Sig/Brittany Route PRN Reason Start Time Stop Time Status Last Admin Dose Admin Acetaminophen (TYLenol 325MG TAB) 650 mg Q4H PRN PO Temp >38.3C(AFTER EXTUBATION) 11/07/24 14:00 12/07/24 13:59 Acetaminophen (TYLenol 325MG TAB) 650 mg Q6H PRN PO TEMPERATURE GREATER THAN 101.5 11/03/24 21:00 11/07/24 14:00 DC 11/06/24 23:00 650 MG Acetaminophen (TYLenol 325MG TAB) 650 mg Q6H PRN PO MILD PAIN (1-3) 11/07/24 14:00 12/07/24 13:59 Acetaminophen (TYLenol 650MG SUPPOSITORY) 650 mg Q4H PRN RC Temp >38.3C WHILE INTUBATED 11/07/24 14:00 12/07/24 13:59 Acetaminophen (acetaMINOPHEN) 1,000 mg Q6H IVPB 11/09/24 09:00 11/12/24 08:59 DC 11/12/24 02:11 1,000 MG Acetaminophen (acetaMINOPHEN) 1,000 mg Q6H6 IV 11/07/24 18:00 11/08/24 17:59 DC 11/08/24 18:08 1,000 MG Albumin Human 250 ml @ 0 mls/hr AD PRN IV IF HEMODYNAMICALLY UNSTABLE 11/07/24 14:00 11/08/24 09:57 DC 11/08/24 09:57 125 MLS/HR Aminocaproic Acid 28449 mg/Sodium Chloride 310 ml @ 25 mls/hr AD IV 11/07/24 14:00 11/08/24 02:23 DC Aminocaproic Acid 73152 mg/Sodium Chloride 480 ml @ 0 mls/hr AD PRN IV BLEEDING CONTROL 11/07/24 11:00 11/07/24 14:03 DC Aspirin (Aspirin 81mg Ec Tab) 81 mg DAILY PO 11/04/24 09:00 12/04/24 08:59 11/12/24 09:03 81 MG Atorvastatin Calcium (LIPItor 40MG) 40 mg HS PO 11/03/24 21:00 11/03/24 20:40 DC Atorvastatin Calcium (LIPItor 40MG) 40 mg HS PO 11/03/24 21:00 11/09/24 07:45 DC 11/07/24 20:15 40 MG Atorvastatin Calcium (LIPItor 40MG) 40 mg HS PO 11/10/24 21:00 12/10/24 20:59 11/11/24 21:23 40 MG Calcium Gluconate (Calcium Gluc 1gm Vial) 1 gm AD PRN IV HYPOCALCEMIA 11/08/24 09:00 11/09/24 07:45 DC 11/08/24 16:36 1 GM Calcium Gluconate 1 gm/Sodium Chloride 60 ml @ 200 mls/hr AD PRN IV HYPOCALCEMIA 11/07/24 14:00 12/07/24 13:59 11/12/24 06:35 200 MLS/HR Cefazolin Sodium (Ancef) 2 gm ONCALL IVPB 11/06/24 22:00 11/07/24 14:00 DC Cefazolin Sodium (Ancef) 2 gm Q8H IVPB 11/07/24 19:00 11/08/24 11:01 DC 11/08/24 11:15 2 GM Clopidogrel Bisulfate (plaVIX 75MG) 75 mg DAILY PO 11/08/24 14:00 12/08/24 13:59 11/12/24 09:02 75 MG Dexmedetomidine/ Sodium Chloride (PRECEdex 400MCG/ 100ML-NS) 400 mcg PROTOCOL IV 11/07/24 14:00 12/07/24 13:59 Dextrose (D50w) 50 ml AD PRN IV HYPOGLYCEMIA PROTOCOL 11/07/24 14:00 12/07/24 13:59 Dextrose/Sodium Bicarbonate 1,025 ml @ 10 mls/hr Q24H IV 11/07/24 19:30 12/07/24 19:29 11/11/24 16:08 10 MLS/HR Docusate Sodium (COLace 100MG CAP) 100 mg BID PO 11/07/24 21:00 11/08/24 10:11 DC 11/07/24 20:15 100 MG Docusate Sodium (COLace 100MG CAP) 100 mg BID PO 11/10/24 09:00 12/10/24 08:59 11/11/24 21:23 100 MG Docusate Sodium (COLace LIQUID 100MG/10ML) 100 mg BID NG 11/08/24 10:30 11/09/24 21:53 DC 11/09/24 20:47 100 MG Enoxaparin Sodium (Lovenox) 30 mg DAILY SQ 11/10/24 09:00 12/10/24 08:59 11/12/24 09:03 30 MG Enoxaparin Sodium (Lovenox) 40 mg DAILY SQ 11/04/24 09:00 11/07/24 13:38 DC 11/05/24 09:06 40 MG Epinephrine HCl 10 mg/Sodium Chloride 250 ml @ 13.948 mls/ hr AD PRN IV POST-OP CARDIOVASCULAR ORDERS 11/07/24 14:00 11/12/24 13:59 11/09/24 19:48 7 MLS/HR Epinephrine HCl 10 mg/Sodium Chloride 250 ml @ 0 mls/hr AD PRN IV TITRATE 11/07/24 11:00 11/07/24 14:02 DC Famotidine (Pepcid 20mg Vial) 20 mg BID IV 11/07/24 21:00 11/08/24 08:59 DC 11/08/24 08:11 20 MG Famotidine (Pepcid 20mg Tab) 20 mg DAILY PO 11/04/24 09:00 11/07/24 13:38 DC 11/05/24 09:06 20 MG Furosemide (LASix 20MG TAB) 20 mg Q12H PO 11/09/24 09:00 12/09/24 08:59 11/12/24 09:02 20 MG Furosemide (LASix 20MG VIAL) 20 mg Q12H IV 11/08/24 09:00 11/09/24 08:59 DC 11/08/24 20:23 20 MG Glucagon (Glucagon 1mg Kit) 1 mg AD PRN IM HYPOGLYCEMIA PROTOCOL 11/07/24 14:00 12/07/24 13:59 Hydralazine HCl (APRESOLine 20MG INJ) 10 mg Q6H PRN IV For:SBP above 160;DBP above 90 11/03/24 21:00 11/07/24 13:38 DC Insulin Human Regular 100 unit/ Sodium Chloride 100 ml @ 0 mls/hr AD IV 11/07/24 14:00 11/09/24 13:59 DC 11/08/24 12:30 4 MLS/HR Ipratropium Onward (AtrovENT UD) 0.5 MG [id number] IH 11/08/24 12:00 12/08/24 11:59 11/12/24 07:14 0.5 MG Lactulose (Constulose 20gm/ 30ml Udcup) 20 gm BID PRN PO CONSTIPATION 11/03/24 21:00 11/07/24 14:00 DC Lactulose (Constulose 20gm/ 30ml Udcup) 20 gm BID PRN PO CONSTIPATION 11/07/24 14:00 12/07/24 13:59 11/11/24 16:43 20 GM Levothyroxine Sodium (SYNTHroid 125MCG TAB) 125 mcg SYN PO 11/09/24 06:30 12/09/24 06:29 11/12/24 05:36 125 MCG Lidocaine HCl/ Dextrose 250 ml @ 0 mls/hr PROTOCOL PRN IV OTHER [SEE ORDER COMMENTS] 11/08/24 21:00 11/09/24 08:37 DC 11/08/24 21:15 7.5 MLS/HR Magnesium Hydroxide (Milk Of Magnesium 30ml) 30 ml DAILY PRN PO CONSTIPATION 11/07/24 14:00 12/07/24 13:59 Magnesium Sulfate 50 ml @ 12.5 mls/hr AD PRN IV MAG LEVEL LESS THAN 2.0 11/07/24 14:00 12/07/24 13:59 11/09/24 05:59 12.5 MLS/HR Metoprolol Tartrate (loprESSOR) 12.5 mg BID PO 11/09/24 09:00 11/11/24 09:39 DC Metoprolol Tartrate (loprESSOR) 50 mg BID PO 11/04/24 21:00 11/07/24 13:38 DC 11/06/24 20:38 50 MG Midodrine (PROAMatine 5 MG TABLET) 10 mg TID PO 11/09/24 21:00 11/11/24 06:58 DC 11/10/24 20:07 10 MG Midodrine (PROAMatine 5 MG TABLET) 15 mg TID PO 11/11/24 09:00 12/11/24 08:59 11/12/24 09:02 15 MG Montelukast Sodium (SinguLAIR) 10 mg HS PO 11/08/24 21:00 12/08/24 20:59 11/11/24 21:23 10 MG Morphine Sulfate (morPHINE 2MG SYG) 0.5 mg Q2H PRN IV MODERATE PAIN (4-6) 11/07/24 14:00 11/08/24 13:59 DC Morphine Sulfate (morPHINE 2MG SYG) 1 mg Q2H PRN IV SEVERE PAIN (7-10) 11/07/24 14:00 11/08/24 13:59 DC Morphine Sulfate (morPHINE 4MG SYG) 2 mg Q4H PRN IVP SEVERE PAIN (7-10) 11/03/24 21:00 11/07/24 13:38 DC 11/04/24 15:49 2 MG Nitroglycerin (Nitroglycerin 1gm Oint) 0.5 inch Q8H TD 11/03/24 21:00 11/07/24 13:38 DC 11/07/24 05:46 0.5 INCH Nitroglycerin/ Dextrose 0 ml @ 0 mls/hr AD IV 11/07/24 14:00 11/10/24 13:59 DC Norepinephrine Bitartrate 250 ml @ 0 mls/hr AD PRN IV TITRATE 11/07/24 11:00 11/07/24 14:02 DC Norepinephrine Bitartrate 250 ml @ 0 mls/hr AD PRN IV POST-OP CARDIOVASCULAR ORDERS 11/07/24 14:00 11/12/24 13:59 11/09/24 17:09 5.6 MLS/HR Ondansetron HCl (zoFRAN 4MG INJ) 4 mg Q6H PRN IV NAUSEA/VOMITING 11/03/24 21:00 11/07/24 14:00 DC Ondansetron HCl (zoFRAN 4MG INJ) 4 mg Q6H PRN IV NAUSEA/VOMITING 11/07/24 14:00 12/07/24 13:59 11/09/24 21:50 4 MG Pantoprazole Sodium (PROTonix 40MG INJ) 40 mg BID IVP 11/08/24 09:00 12/08/24 08:59 11/12/24 09:03 40 MG Piperacillin Sod/ Tazobactam Sod (Zosyn 3.375gm+NS 50ml) 3.375 gm Q8H IV 11/09/24 10:00 11/09/24 09:38 DC Piperacillin Sod/ Tazobactam Sod (Zosyn 3.375gm+NS 50ml) 3.375 gm Q8H IV 11/09/24 10:00 11/19/24 09:59 11/12/24 09:02 3.375 GM Polyethylene Glycol (MIRalax 3350 17 GM POWD.PACK) 17 gm DAILY PO 11/09/24 09:00 12/09/24 08:59 11/11/24 08:29 17 GM Potassium Phosphate 250 ml @ 42 mls/hr AD PRN IV LOW PHOS LEVEL 11/07/24 14:00 12/07/24 13:59 11/08/24 07:22 42 MLS/HR Potassium Chloride 100 ml @ 100 mls/hr AD PRN IV HYPOKALEMIA 11/07/24 14:00 12/07/24 13:59 11/12/24 09:03 100 MLS/HR Propofol 100 ml @ 0 mls/hr AD PRN IV SEDATION 11/07/24 14:00 11/11/24 13:59 DC Sodium Bicarbonate (Sodium Bicarb 50meq 50ml Vial) 50 meq AD PRN IV OTHER[SEE DOSING INSTRUCTIONS] 11/07/24 14:00 11/10/24 13:59 DC 11/08/24 00:54 50 MEQ Sodium Chloride 500 ml @ 0 mls/hr AD IV 11/07/24 14:00 12/07/24 13:59 11/10/24 00:41 3 MLS/HR Sodium Chloride 1,000 ml @ 10 mls/hr ONCE IV 11/07/24 14:00 11/08/24 13:59 DC 11/07/24 20:11 10 MLS/HR Sodium Chloride 1,000 ml @ 100 mls/hr Q10H IV 11/06/24 12:30 11/06/24 15:29 DC Sodium Chloride (NS Flush 10ml) 10 ml Q8H PRN IVP IV LINE FLUSH 11/07/24 14:00 12/07/24 13:59 Sucralfate (Carafate) 1 gm TID PO 11/08/24 21:00 12/08/24 20:59 11/12/24 09:02 1 GM Tramadol HCl (UltRAM) 25 mg Q6H PRN PO MODERATE PAIN (4-6) 11/07/24 14:00 11/09/24 08:37 DC Tramadol HCl (UltRAM) 50 mg Q6H PRN PO SEVERE PAIN (7-10) 11/07/24 14:00 11/09/24 08:37 DC 11/08/24 23:30 50 MG Vitamin B Complex (Vitamin B-12) 1,000 mcg DAILY IM 11/07/24 09:00 11/13/24 08:59 11/12/24 09:03 1,000 [facility] / RADIOLOGY: [place] [address] IMAGING REPORT Signed PATIENT: CLARE VALADEZ MR#: [id number] : 1955 SEX: M AGE: 69 LOCATION: [facility] ORDER 2300 STATUS: ADM IN REPORT#: [id number] SERVICE 0400 REASON: s/p CABG ORDERING PHYSICIAN: JLUIS MENDOZA MD PROCEDURE: CXR1VW - CHEST 1VW EXAM: CR Chest, 1 View. CLINICAL HISTORY: s/p CABG COMPARISON: Yesterday FINDINGS: LUNGS: Subsegmental atelectasis within right midlung. PLEURAL SPACES: No evidence of pleural effusion or pneumothorax. MEDIASTINUM: Left-sided cardiac support device. Mediastinal drain. Left chest tube. BONES: No acute osseous abnormality. MISCELLANEOUS: Right internal jugular line. IMPRESSION: 1. No acute cardiopulmonary findings. 2. Stable subsegmental atelectasis in right midlung. 3. Unchanged left-sided cardiac support device, mediastinal drain, and left chest tube. 4. Right internal jugular line in place. /[place] DICTATED BY: TORI RAUSCH MD DATE: 11/12/24912 ELECTRONICALLY SIGNED BY: TORI RAUSCH MD DATE: 11/12/24912 ASSESSMENT: Coronary artery disease, POA, s/p CABG 3v and redo sternotomy with redo of graft failure now s/p CABG with 4v Hyperlipidemia, POA Grave's disease, POA Peripheral artery disease, suspected Carotid artery stenosis PLAN: Coronary artery disease, POA s/p CABG 3v and redo sternotomy with redo of graft failure now s/p CABG with 4v * Administer aspirin 325 mg p.o. now and then continue aspirin 81 mg p.o. daily * Troponin every 6 hours, serial troponin levels are 9-9-12-11. * Supplemental oxygen as needed to maintain SpO2 greater than 94% * Monitor for recurrence of chest pain, arrhythmias, or hemodynamic changes * Electrocardiogram was done which is normal. * A 2D Echo has been ordered due to patients history of chest pain on exertion and rest. * A cardiology consult has been placed for evaluation of CAD in patient with exertional chest pain and vascular disease. 11/04/24 * Echocardiogram was done which revealed aortic valve: trileaflet, mildly sclerotic, and opens well. * Pending Coronary CTA reports. * Lipid panels has been ordered to assess Cardiovascular risks. Results unremarkable. * In coronary CT angiography there is mixed calcified and noncalcified plaque in the proximal LAD with 80-90% stenosis. Left circumflex coronary artery: Normal caliber, nondominant and gives rise to a large OM branch. There is mixed ca lcified and noncalcified plaque in the mid LCx with 80-90% stenosis. * CAD-RAD of 4B. * Left heart catheterization with selective right and left coronary angiography was performed which showed critical left main disease. Severe ostial RCA stenosis. 11/06/24 * He complaints of headache 8/10 of intensity after the administration of Nitroglycerin. Tylenol has been administered. Closely monitoring the patient. * Cardiac catheterization demonstrated a very tight left main lesion and the patient is referred for surgical revascularization. * Patient is POD 5 S/P CABG, patient is being managed in the ICU per protocol. * Recent ABG shows lactic acid is 1.21. * He is off of pressors. * Cardiovascular surgery decreased impella setting to P4 but he had hypotension so they went back to P5. * We will continue to following Cardiology and critical care recommendations. Peripheral vascular disease, Suspected * Patient has history of exertional bilateral leg pain * Diminished peripheral pulses * A SERA has been ordered due to the patients complaint of bilateral lower extremity claudication, and numbness/tingling in bilateral lower extremities. * Clear aspirin 81 mg daily and statin 40mg * Encouraged supervised exercise therapy for claudication * Counseled on continued smoking cessation 11/04/24 Peripheral Neuropathy * Vitamin B12 has been ordered to rule out peripheral neuropathy.11/05/24 * Complained of numbness and tingling in his limbs. * Vitamin B12 level was measured which showed 173L. * Patient has been started on vitamin B12 supplement 1000 mcg for 6 days. Carotid artery stenosis * Presence of bilateral carotid bruit on exam, suspicion for significant rabia nosis * Carotid Duplex ultrasound has been done, awaiting reports * Risk factor modification: Smoking cessation, BP control, glycemic control. 11/04/24 * Carotid artery ultrasound showed Bilateral ICA/CCA ratio more than 4.0 suggesting more than 70% stenosis. 11/05/24 * Cardiology recommended CT/MR angiogram when stable from surgical standpoint Hyperlipidemia * Continue home statin therapy atorvastatin 40 mg * Reinforce low-cholesterol, heart healthy diet (limit saturated fats, increase fiber, fruits and vegetables) * Encouraged regular physical activity as tolerated * Monitor lipid panel * Outpatient follow up with PCP/Cardiology for long-term lipid management and cardiovascular risks reduction Supportive measures * Start patient on GI prophylaxis * DVT prophylaxis * Monitor morning labs CBC and BMP daily * He is on clear liquid diet Hypothyroidism * Continue home medication of Synthroid * TSH 1.33. ATTESTATION BY PHYSICIAN I have seen and examined the patient. I reviewed the documentation, medical decision making, and treatment plan as noted by the resident provider above. I agree with the findings and plan of care. Shawn Loera IV, MD, AKSHAY MD Nov 12, 2024 11:17
--- NOTE | 2024-11-12 11:30 | NUR ---
dr. pearl made aware of upon attempting to get pt out of bed , pt became bradycardiac , hypotensive and diaphoretic, levophed drip was restarted . pt kept on impella at p level of 5. no new orders.
--- NOTE | 2024-11-12 11:30 | NUR ---
DIANNA AM JIM PETE LOW BP (84/40'S). Addendum: 11/12/24 at 1247 by SHRUTI INGRAM PT Amended: Links added.
--- NOTE | 2024-11-12 12:48 | PN ---
[facility] CARDIOLOGY PROGRESS NOTE Date Patient Seen: Nov 12, 2024 Time of Visit: 12:45 Interval History: No acute events overnight. Overnight urine [id number] mL, net -1235, hemodynamically stable in the soft 100s. Physical Examination: GENERAL: No acute distress. HEAD: Normal with no signs of head trauma. EYES: PERRLA, EOMI, conjunctiva and sclera normal. ENT: Hearing grossly intact, normal oropharynx. NECK: Supple without JVD. There is no tenderness, lymphadenopathy, or masses. No thyromegaly. Normal carotid upstrokes without bruits. LUNGS: Clear breath sounds bilaterally. No wheezes, or rhonchi. HEART: Normal rate and rhythm. Normal S1 and S2 without murmurs, gallop or rub. VASC: Peripheral pulses +2 bilaterally. ABD: Bowel sounds normal, soft, nontender, no masses, no organomegaly. No audible bruits. : Not examined LYMPH: No lymphadenopathy noted. EXT: No clubbing, cyanosis or edema. SKIN: No rashes or lesions noted. NEURO: Awake, alert, and oriented x3. No focal sensory or strength deficits noted. Laboratory: [ ] Hematology Labs: Test 11/12/24 05:28 Range/Units White Blood Count 8.5 4.8-10.8 K/uL Red Blood Count 3.02 L 4.50-6.20 MIL/uL Hemoglobin 9.6 L 14.0-18.0 g/dL Hematocrit 29.7 L 42-54 % Mean Corpuscular Volume 98.3 79-99 fL Mean Corpuscular Hemoglobin 31.8 27.0-33.0 pg Mean Corpuscular Hemoglobin Concent 32.3 32.0-36.0 g/dL Red Cell Distribution Width 12.9 11.0-15.5 % Platelet Count 94 L 130-400 K/uL Mean Platelet Volume 10.7 H 7.5-10.5 fL Nucleated Red Blood Cells 0.0 0.0-0.19 % Chemistry Labs: Test 11/12/24 05:28 Range/Units Sodium Level 139 136-145 mmol/L Potassium Level 3.6 3.5-5.1 mmol/L Chloride Level 103 101-111 mmol/L Carbon Dioxide Level 26 21-32 mmol/L Blood Urea Nitrogen 14 7-18 mg/dL Creatinine 0.9 0.5-1.3 mg/dL Glomerular Filtration Rate Calc 93 >90 mL/min Random Glucose 81 70-105 mg/dL Total Calcium 7.5 L 8.5-10.1 mg/dL Total Bilirubin 0.6 0.2-1.0 mg/dL Direct Bilirubin 0.2 0.0-0.3 mg/dL Aspartate Amino Transf (AST/SGOT) 75 H 10-37 U/L Alanine Aminotransferase (ALT/SGPT) 54 12-78 U/L Alkaline Phosphatase 57 50-136 U/L Total Protein 4.9 L 6.0-8.3 g/dL Albumin 1.9 L 3.5-5.0 g/dL Diagnostics / Radiology: [Copy/Paste Echos/Imaging Report here] Impression and Plan: [Chest pain Hyperlipidemia CAD s/p PTCA to unknown vessel approximately 30 years ago Ex-smoker of 1 PPD with cessation 2 months ago Graves disease #CAD -s/p CABG 3v c/b bradycardia and redo sternotomy with redo of graft failure now s/p CABG with 4v Cardiac enzymes negative x5. EKG demonstrated normal sinus rhythm with heart rate of 67bpm, no acute ischemia noted. -2Decho results LVEF is 60-65%. no wall motion or valvular abnormalities. -CCTA There is mixed calcified and noncalcified plaque in the proximal LAD with 80-90% stenosis. Left circumflex coronary artery: Normal caliber, nondominant and gives rise to a large OM branch. There is mixed calcified and noncalcified plaque in the mid LCx with 80-90% stenosis. CAD-RAD of 4 -[facility] with multivessel CAD including left main - Overnight urine output 2775 mL, net -1235. Patient continues on Impella support has been weaned off to P-6 -Continue ASA 81 mg daily atorvastatin 40 mg daily, lasix 20 mg IV bid -Continue Spheis93 mg daily -we will continue to wean off pressors. -Impella currently at P-6 . We will plan to wean off tomorrow -patient is currently in normal sinus rhythm, we will defer the use of amiodarone at this time -due to the patient's elevated LFTs statins are being held. LFTs continue improving. -once the patient has been weaned off pressor support we will initiate beta- betty -rest of care per CV surgery -PT/OT #Carotid arterial Disease carotid US 9/25: Mild intimal thickening in the bilateral carotid arteries and their branches. Bilateral ICA/CCA ratio is more than 4.0 suggesting more than 70% stenosis. Raised velocities in the bilateral external and internal carotid arteries. Recommend CT/MR angiogram when stable from surgical standpoint -aspirin 81 mg daily Thank you for this consult cardiology will continue to follow along. ] ATTESTATION BY PHYSICIAN I have seen and examined the patient, reviewed the above documentation, participated in medical decision making, made necessary modifications, and agree with the treatment plan as documented by my mid-level provider above. MD JUAN Caldwell JAMES R MD Nov 12, 2024 12:48
--- NOTE | 2024-11-12 15:04 | HMCIMG ---
EXAM: CR Chest, 1 view on 2 radiographs. CLINICAL HISTORY: pn COMPARISON: Earlier today 11/12 4:58 EDT CR - CHEST 1VW LUNGS: Improved aeration within the lower/mid right lung since prior exam consistent with improved subsegmental atelectasis. PLEURAL SPACES: No evidence of pleural effusion or pneumothorax. MEDIASTINUM: Prior median sternotomy. Left-sided cardiac support device. Mediastinal drain. Left chest tube. BONES: No acute osseous abnormality. MISCELLANEOUS: Right internal jugular line. IMPRESSION: 1. Improved aeration within the lower/mid right lung since prior exam consistent with improved subsegmental atelectasis. 2. Unchanged left-sided cardiac support device, mediastinal drain, and left chest tube. 3. Right internal jugular line in place. /[place]
--- NOTE | 2024-11-12 16:21 | HMCSR ---
APPROVED REPORT EXAM: Limited two-dimensional echocardiogram INDICATION ICD: Impella device placement. 2D Dimensions RVDd3.8 cm Deformation Strain Apical 4-7.3 % Apical 2-4.6 % Apical 3-5.5 % Global Strain-5.8 % Left Ventricle Impella device measuring 4.9cm into LV. There is global hypokinesis of the left ventricle. LVEF is 40 -45%. Pericardium The pericardium appears normal. Other Information Quality : Limited/Follow-up Conclusion Limited echo for Impella placement. LVEF is 40-45%. There is global hypokinesis of the left ventricle. Impella device measuring 4.9cm into LV. The pericardium appears normal.
[2024-11-12 21:08] LABS: CREATININE 1.0 mg/dL (0.5-1.3); GLOMERULAR FILTR. RATE CALC 82.0 mL/min (>90); GLUCOSE,RANDOM 141.0 mg/dL (70-105); SODIUM SERUM 139.0 mmol/L (136-145); UREA NITROGEN, BLOOD 15.0 mg/dL (7-18)
[2024-11-13] VITALS (127 sets, daily range): BP systolic 27–139; BP diastolic 4–99; PULSE 74–92; RESP 10–31; TEMP 97.7–99.5; O2SAT 96–98
[2024-11-13 05:41] LABS: NUCLEATED RED BLOOD CELLS 0.2 % (0.0-0.19); PLATELET COUNT (AUTO) 150.0 K/uL (130-400); RED BLOOD CELL COUNT(AUTO) 2.79 MIL/uL (4.50-6.20); RED CELL DISTRIBUTION WIDTH 13.0 % (11.0-15.5); WHITE BLOOD COUNT (AUTO) 9.7 K/uL (4.8-10.8)
[2024-11-13 08:08] LABS: CREATININE 0.9 mg/dL (0.5-1.3); GLOMERULAR FILTR. RATE CALC 93.0 mL/min (>90); GLUCOSE,RANDOM 140.0 mg/dL (70-105); SODIUM SERUM 140.0 mmol/L (136-145); UREA NITROGEN, BLOOD 13.0 mg/dL (7-18)
[2024-11-13] MEDS: NOREPINEPHRIN 8MG/250ML NS 250 ML IV SCH (08:42)
[2024-11-13] MEDS ORDERED: PHARMACY COMMUNICATION MISC SCH (09:00)
--- NOTE | 2024-11-13 09:51 | PN ---
[facility] CARDIOLOGY PROGRESS NOTE Date Patient Seen: Nov 13, 2024 Time of Visit: 09:49 Interval History: No acute events overnight. successfully weaned off pressors , with stable blood pressures , Impella at P -5 Physical Examination: GENERAL: No acute distress. HEAD: Normal with no signs of head trauma. EYES: PERRLA, EOMI, conjunctiva and sclera normal. ENT: Hearing grossly intact, normal oropharynx. NECK: Supple without JVD. There is no tenderness, lymphadenopathy, or masses. No thyromegaly. Normal carotid upstrokes without bruits. LUNGS: Clear breath sounds bilaterally. No wheezes, or rhonchi. HEART: Normal rate and rhythm. Normal S1 and S2 without murmurs, gallop or rub. VASC: Peripheral pulses +2 bilaterally. ABD: Bowel sounds normal, soft, nontender, no masses, no organomegaly. No audible bruits. : Not examined LYMPH: No lymphadenopathy noted. EXT: No clubbing, cyanosis or edema. SKIN: No rashes or lesions noted. NEURO: Awake, alert, and oriented x3. No focal sensory or strength deficits noted. Laboratory: [ ] Hematology Labs: Test 11/13/24 05:33 Range/Units White Blood Count 9.7 4.8-10.8 K/uL Red Blood Count 2.79 L 4.50-6.20 MIL/uL Hemoglobin 8.9 L 14.0-18.0 g/dL Hematocrit 27.3 L 42-54 % Mean Corpuscular Volume 97.8 79-99 fL Mean Corpuscular Hemoglobin 31.9 27.0-33.0 pg Mean Corpuscular Hemoglobin Concent 32.6 32.0-36.0 g/dL Red Cell Distribution Width 13.0 11.0-15.5 % Platelet Count 150 # 130-400 K/uL Mean Platelet Volume 10.2 7.5-10.5 fL Nucleated Red Blood Cells 0.2 H 0.0-0.19 % Chemistry Labs: Test 11/13/24 05:33 11/12/24 05:28 Range/Units Sodium Level 140 136-145 mmol/L Potassium Level 3.5 3.5-5.1 mmol/L Chloride Level 104 101-111 mmol/L Carbon Dioxide Level 27 21-32 mmol/L Blood Urea Nitrogen 13 7-18 mg/dL Creatinine 0.9 0.5-1.3 mg/dL Glomerular Filtration Rate Calc 93 >90 mL/min Random Glucose 140 H 70-105 mg/dL Total Calcium 7.4 L 8.5-10.1 mg/dL Magnesium Level 2.10 1.80-2.40 mg/dL Total Bilirubin 0.6 0.2-1.0 mg/dL Direct Bilirubin 0.2 0.0-0.3 mg/dL Aspartate Amino Transf (AST/SGOT) 75 H 10-37 U/L Alanine Aminotransferase (ALT/SGPT) 54 12-78 U/L Alkaline Phosphatase 57 50-136 U/L Total Protein 4.9 L 6.0-8.3 g/dL Albumin 1.9 L 3.5-5.0 g/dL Coagulation Labs: Test 11/13/24 08:56 Range/Units Activated Partial Thromboplast Time 28.3 26.3-35.5 SEC Diagnostics / Radiology: [Copy/Paste Echos/Imaging Report here] Impression and Plan: [Chest pain Hyperlipidemia CAD s/p PTCA to unknown vessel approximately 30 years ago Ex-smoker of 1 PPD with cessation 2 months ago Graves disease #CAD -s/p CABG 3v c/b bradycardia and redo sternotomy with redo of graft failure now s/p CABG with 4v Cardiac enzymes negative x5. EKG demonstrated normal sinus rhythm with heart rate of 67bpm, no acute ischemia noted. -2Decho results LVEF is 60-65%. no wall motion or valvular abnormalities. -CCTA There is mixed calcified and noncalcified plaque in the proximal LAD with 80-90% stenosis. Left circumflex coronary artery: Normal caliber, nondominant and gives rise to a large OM branch. There is mixed calcified and noncalcified plaque in the mid LCx with 80-90% stenosis. CAD-RAD of 4 -[facility] with multivessel CAD including left main - Patient continues on Impella support has been weaned off to P-5 -Continue ASA 81 mg daily atorvastatin 40 mg daily, lasix 20 mg IV bid -Continue Enerfy25 mg daily -we will continue to wean off pressors. -Impella currently at P-5 . -patient is currently in normal sinus rhythm, we will defer the use of amiodarone at this time -due to the patient's elevated LFTs statins are being held. LFTs continue improving. -once the patient has been weaned off pressor support we will initiate beta- betty -rest of care per CV surgery -PT/OT #Carotid arterial Disease carotid US 11/05: Mild intimal thickening in the bilateral carotid arteries and their branches. Bilateral ICA/CCA ratio is more than 4.0 suggesting more than 70% stenosis. Raised velocities in the bilateral external and internal carotid arteries. Recommend CT/MR angiogram when stable from surgical standpoint -aspirin 81 mg daily Thank you for this consult cardiology will continue to follow along. ] ATTESTATION BY PHYSICIAN I have seen and examined the patient, reviewed the above documentation, participated in medical decision making, made necessary modifications, and agree with the treatment plan as documented by my mid-level provider above. MD JUAN Caldwell JAMES R MD Nov 13, 2024 09:51
[2024-11-13] MEDS: LIDOCAINE HCL 1% 20 ML VIAL INJ ONE (10:24)
[2024-11-13] MEDS: LIDOCAINE HCL 1% 20 ML VIAL ONE (10:24)
--- NOTE | 2024-11-13 11:19 | HMCIMG ---
CHEST 1VW REASON: pp COMPARISON: Prior chest radiograph from 11/12/2024 is available. FINDINGS: Single view of the chest was obtained. There is mild cardiomegaly with median sternotomy with cardiac revascularization procedure. There is a left-sided chest tube in place. The support lines including a right internal jugular vascular cysts disease and left-sided cardiac support device in place. There is no pulmonary vascular congestion. Mediastinum and bony thorax appear unremarkable. IMPRESSION: 1. Mild borderline cardiomegaly with median sternotomy with cardiac and aspiration procedure 2. Support lines in satisfactory position 3. No evidence of airspace consolidation or pulmonary venous congestion.
--- NOTE | 2024-11-13 11:23 | NUR ---
LOW BP Addendum: 11/13/24 at 1125 by SHRUTI INGRAM PT Amended: Links added.
--- NOTE | 2024-11-13 12:04 | PN ---
SUBJECTIVE: The patient is postop day #5 from an Impella supported coronary artery bypass grafting. The patient is doing well. He, however, still has not gotten up. OBJECTIVE: VITAL SIGNS: Revealed a pulse of 66, respirations 14, blood pressure 99/58, oxygen saturation 100%. He is off all drips. HEENT: Reveals normocephalic, atraumatic. Extraocular movements intact. He has nasal cannula oxygen prongs in his nose. He has a left cervical 5.5 Impella left ventricular assist device. CHEST: Sternal wound is bandaged. His chest tubes are in place with 100 mL out of his mediastinal tube and 250 mL from his pleural tubes. He has right cervical Cordis introducer. HEART: S1, S2 and regular. LUNGS: Unlabored at rest, on nasal cannula oxygen. ABDOMEN: Reveals positive bowel sounds. EXTREMITIES: He has SCDs on his lower extremities. GENITOURINARY: He has Daniel catheter in his bladder ASSESSMENT AND PLAN: 1. Status post Impella supported coronary artery bypass grafting. The patient will still need an arterial line so we can eventually discontinue the Impella. Continue aspirin, Plavix, Lasix, and get patient up out of bed. Keep chest tubes in place. 2. Postoperative acute pulmonary insufficiency. Wean nasal cannula oxygen to maintain oxygen saturation greater than 90% on room air. 3. Hypercholesterolemia. Lipitor at bedtime with a low cholesterol, cardiac diet. 4. Deep venous thrombosis prophylaxis with SCDs to the lower extremities. Time spent 30 minutes. The patient is critically ill in the ICU. TID: [id number] RECEIPT: [id number]
--- NOTE | 2024-11-13 12:29 | PN ---
[facility] PROGRESS NOTE Date of Service: Nov 13, 2024 Time of Service: 12:28 SUBJECTIVE: Mr. Valadez a 68-year-old male that was seen and examined today on 11/03/2024. Patient reports that he came to the emergency department with a chief complaint of chest pain. Onset was two or three years ago. He had similar repeated episodes months back which resolved on its own. Today's episode began at 11:00 a.m. Location is midsternal. Duration is on and off. Character is described as "neck someone is pushing a knuckle into the center of my chest. The chest pain did not radiate to shoulder, neck or jaw. "There was no alleviating factors. There was no aggravating factors. Patient reports that symptoms seemingly resolve on their own. He denies nausea, vomiting, fever and any other associated symptoms. Patient denies any associated shortness of breath. Patient has a past medical history of hyperlipidemia and Graves disease. He has been taking atorvastatin and Synthroid as his home medications. Today in the emergency department WBC 5.8, hemoglobin 12.9 platelets 197. His chemistries were within normal limits sodium 140, potassium 4.2, blood urea nitrogen 15 and creatinine 1.0. His electrocardiogram showed normal sinus rhythm. Patient will be admitted for further evaluation and related recommendations in Med-Surg. 11/04/24 Patient was evaluated at the bedside in ED-09. He reports that he is having chest pain that comes and goes. The patient reports having 2 episodes of chest pain in the last hour. He denies associated symptoms such as shortness of breath, palpitation, diaphoresis, dizziness, nausea or syncope. He does however complain of muscle pain in his lower limbs described as a dull aching discomfort that begins in the hip region that is worsened with movement. The patient complains of tingling and numbness in his feet bilaterally. No fever, chills or recent infection reported. Appetite and oral intake are normal. No other acute complaints at this time. On physical exam, a systolic murmur was auscultated over the aortic area. Bilateral carotid bruits are present. Lower extremities are cool to the touch with diminished pedal pulses. Patient reports bilateral leg muscle pain with exertion (suggestive of claudication), and chronic numbness and tingling in the feet. Patient reports recently quitting smoking tobacco for 2 months. He had a 1 pack a day smoking history since 1968. The [facility] and denies following with a inspector outside [employer]. The patient says his chest pain has been ongoing for the past 3 years, and that it gets worse with exertion and at rest. 11/05/24 Patient was evaluated at the bedside room 231. He was hemodynamically stable. Hi symptoms has improved significantly. He doesn't complain of chest pain, shortness of breath and any other associated symptoms. Echocardiogram was done which revealed aortic valve: trileaflet, mildly sclerotic, and opens well. Carotid artery ultrasound showed Bilateral ICA/CCA ratio more than 4.0 suggesting more than 70% stenosis. 11/06/24 Patient was evaluated at the bedside room 231. He was hemodynamically stable. Hi symptoms has improved significantly. He doesn't complain of chest pain, shortness of breath and any other associated symptoms. In coronary CT angiography there is mixed calcified and noncalcified plaque in the proximal LAD with 80-90% stenosis. Left circumflex coronary artery: Normal caliber, nondominant and gives rise to a large OM branch. There is mixed calcified and noncalcified plaque in the mid LCx with 80-90% stenosis. CAD-RAD of 4B. Left heart catheterization with selective right and left coronary angiography was performed which showed critical left main disease. 11/07/24 Patient was evaluated at the bedside room 231. He was hemodynamically stable. He doesn't complain of chest pain, shortness of breath and any other associated symptoms. He complaints of headache 8/10 of intensity after the administration of Nitroglycerin. Cardiac catheterization demonstrated a very tight left main lesion and the patient is referred for surgical revascularization. As per Dr Meza: Surgery is planned for today. 11/08/24: Patient was seen and evaluated this morning at bedside. The patient is POD 1 s/p CABG. Patient is currently being managed in the ICU. The patients most recent ABG shows a pH of 7.43, ABG PCO2 47, ABG PO2 77.9, ABG HCO3 30.8. Recent ABG shows improving lactic acid, from 8 to 3.85. The patients chemistry reveals a sodium level 157, potassium level 3.4, creatinine 1.9, BUN 19, GFR 38, phosphorous 2.2. Liver enzymes are trending up, with an ALT level at 325 and an AST level at 869. The patients home medication of Synthroid has been restarted. Chest x-ray ordered today, results pending. We will continue to follow recommendations from critical care team, and cardiology. 11/09/2024: Patient is seen and evaluated in the room 213. The patient is POD 2 s/p CABG. Patient is currently being managed in the ICU. He is complaining of pain. His vitals are in the normal range. His Hb is 11.1, WBC is 19.1, Plt is 115, sodium is 154, chloride is 113, glucose is 122. His recent ABG shows that pH is 7.472, pO2 is 80.1, bicarb is 30.4, Hb is 11.4, lactic acid is 1.63. His chest X-ray on 11/08 showed improved aeration within the left perihilar and left basilar regions. As per nurse he is having intervention confusion, stopped lidocaine and they also weaning on pressors norepinephrine and epinephrine. The drain output from left anterior chest is 20ml, mediastinal lateral is 160ml, mediastinal mediastinal is 300ml, right anterior chest is 160 ml. We will continue to follow recommendations from critical care team, and cardiology. 11/10/2024: Patient was seen and evaluated this morning at bedside. The patient is POD 3 s/p CABG. Patient is currently being managed in the ICU. He is not having any symptoms today. His vitals are in the normal range. His labs are normal except for Hb is 10.1, WBC is 14.7, plt is 85, sodium is 147, AST is 156, ALT is 95, APTT is 25.5. ABG shows that his pH is 7.4, lactate is 1.22, bicarb is 31. The drain output from left anterior chest is 170 ml, mediastinal mediastinal is 130ml. We will continue to follow recommendations from critical care team, and cardiology. 11/11/2024: Patient was seen and evaluated this morning at bedside. The patient is POD 4 s/p CABG. He is not having any symptoms today. His vitals are in the normal range. His labs are normal except for hemoglobin is 9.7, WBC is 11.7, platelet is 106, glucose is 107, AST is 87, ALT is 62. ABG shows pH is 7.468, lactic acid is 1.03. We will continue to follow recommendations from critical care team, and cardiology. 11/12/2024: Patient was seen and evaluated in the room 218. The patient is POD 5 s/p CABG. He is having dizziness and ache in the left shoulder. His vitals are in the normal range. His labs are normal except for hemoglobin 9.6, platelets is 94, AST 75. ABG shows pH 7.487, lactic acid 1.2. Currently he is not on any pressors. Cardiovascular surgery tried to wean Impella. They decreased impella setting to P4 but his blood pressure is low so they went back to P5. Cardiovascular surgery also increased his midodrine dose to 15mg. His chest X- ray showed mild pulmonary vascular congestion. He had a bowel movement and good urine output. He is using incentive spirometry well. We will continue to follow recommendations from the critical Care team and Cardiology. 11/13/2024: Patient was seen and evaluated in the room 218. The patient is POD 6 s/p CABG. He is having dizziness and generalized ache. His vitals are in the normal range. His labs are normal except for Hb is 8.9, calcium is 7.4, glucose is 140. His chest x-ray showed that mild borderline cardiomegaly with median sternotomy with cardiac and aspiration procedure, support lines in satisfactory position, no evidence of airspace consolidation or pulmonary venous congestion. He is restarted on norepinephrine and epinephrine drip and impella at P5 as he is hypotensive and has bradycardia. The nurse told me that she will consult anesthesia for changing the arterial line as his line is not working. He is on heparin drip and off of lovenox. The drain output from left anterior chest is 260 ml, mediastinal mediastinal is 60ml. Hematology was consulted as he is in a hypercoagulable state. REVIEW OF SYSTEMS CONSTITUTIONAL: Pain in his left shoulder No fever, chills, or night sweats. NEUROLOGICAL: No headache no sensory and motor deficit. CARDIOVASCULAR: Dizziness Denies any exertional angina, dyspnea on exertion, palpitations. PULMONARY: Denies any shortness of breath, cough, phlegm/sputum, hemoptysis, pleuritic chest pain. GASTROINTESTINAL: Denies nausea, vomiting. Denies pain, tenderness around the abdomen. GENITOURINARY: Denies frequency, urgency, nocturia, hematuria or incontinence. PHYSICAL EXAM GENERAL APPEARANCE: The patient is alert, awake and oriented and bedbound. NEUROLOGICAL: No sensory and motor deficits. CHEST: left anterior chest , mediastinal mediastinal drains are present. Dressing is clean Normal chest expansion. LUNGS: Normal vesicular breath sound. Absence of any rales, rhonchi or any wheezing. CARDIOVASCULAR: Systolic murmur heard over aortic area. Bilateral carotid bruits heard. No JVD. ABDOMEN: Soft nontender, and nondistended. There is no rebound, voluntary guarding, or rigidity. No abdominal bruit heard. GENITOURINARY: No suprapubic tenderness. No costovertebral angle tenderness. EXTREMITIES: Limbs are non-edematous. Vital Signs (last 8hr) Date Time Temp Pulse Resp B/P (MAP) Pulse Ox O2 Delivery O2 Flow Rate FiO2 11/13/24 12:22 97.7 11/13/24 12:00 96 Nasal Cannula* 2 N/A N/C Oxymizer Hi LPM* 11/13/24 11:40 81 20 108/66 (80) 97 99/48 (65) 11/13/24 11:27 82 19 11/13/24 11:25 85 19 98/60 (73) 98 86/55 (65) 11/13/24 11:10 80 20 101/59 (73) 97 105/67 (80) 11/13/24 10:55 81 20 88/56 (67) 96 98/64 (75) 11/13/24 10:40 83 20 93/61 (72) 97 96/54 (68) 11/13/24 10:26 85 19 104/64 (77) 97 11/13/24 10:25 84 17 98/64 (75) 97 11/13/24 10:10 80 20 101/63 (76) 98 97/56 (70) 11/13/24 09:55 86 15 90/54 (66) 97 115/41 (65) 11/13/24 09:40 86 20 86/57 (67) 96 91/64 (73) 11/13/24 09:25 84 20 91/58 (69) 97 96/60 (72) 11/13/24 09:10 86 20 89/60 (70) 95 11/13/24 09:00 84 20 94 11/13/24 08:55 85 13 89/63 (72) 95 11/13/24 08:45 86 14 /6 95 11/13/24 08:42 103/68 11/13/24 08:40 85 20 /4 95 87/57 (67) 11/13/24 08:30 83 20 95 11/13/24 08:25 85 20 /13 95 98/67 (77) 11/13/24 08:15 82 19 /9 95 11/13/24 08:10 82 20 /11 95 103/68 (80) 11/13/24 08:09 98.1 11/13/24 08:00 84 10 95 11/13/24 08:00 96 Nasal Cannula* 2 N/A N/C Oxymizer Hi LPM* 11/13/24 07:59 81 20 103/73 (83) 95 11/13/24 07:45 86 20 /20 95 11/13/24 07:40 88 15 /22 98 111/70 (84) 11/13/24 07:30 88 18 /21 95 11/13/24 07:27 90 20 /27 95 94/60 (71) 11/13/24 07:15 82 17 /9 94 11/13/24 07:10 81 18 /12 96 101/71 (81) 11/13/24 07:08 82 18 /12 95 92/63 (73) 11/13/24 07:00 81 18 /14 96 11/13/24 06:41 79 18 11/13/24 06:41 80 20 N/Cannula Oximizer Hi LPM 2.0 28 11/13/24 06:36 11/13/24 06:11 79 17 101/61 (74) 95 11/13/24 05:54 81 18 85/58 (67) 97 11/13/24 05:25 84 19 96/57 (70) 97 11/13/24 05:23 84 16 99/55 (70) 97 11/13/24 04:55 83 18 96/62 (73) 97 11/13/24 04:40 81 16 95/55 (68) 96 LABS: Laboratory: Test 11/13/24 08:56 11/13/24 05:33 11/12/24 05:28 11/12/24 05:24 Range/Units Activated Partial Thromboplast Time 28.3 26.3-35.5 SEC White Blood Count 9.7 4.8-10.8 K/uL Red Blood Count 2.79 L 4.50-6.20 MIL/uL Hemoglobin 8.9 L 14.0-18.0 g/dL Hematocrit 27.3 L 42-54 % Mean Corpuscular Volume 97.8 79-99 fL Mean Corpuscular Hemoglobin 31.9 27.0-33.0 pg Mean Corpuscular Hemoglobin Concent 32.6 32.0-36.0 g/dL Red Cell Distribution Width 13.0 11.0-15.5 % Platelet Count 150 # 130-400 K/uL Mean Platelet Volume 10.2 7.5-10.5 fL Nucleated Red Blood Cells 0.2 H 0.0-0.19 % Sodium Level 140 136-145 mmol/L Potassium Level 3.5 3.5-5.1 mmol/L Chloride Level 104 101-111 mmol/L Carbon Dioxide Level 27 21-32 mmol/L Blood Urea Nitrogen 13 7-18 mg/dL Creatinine 0.9 0.5-1.3 mg/dL Glomerular Filtration Rate Calc 93 >90 mL/min Random Glucose 140 H 70-105 mg/dL Total Calcium 7.4 L 8.5-10.1 mg/dL Magnesium Level 2.10 1.80-2.40 mg/dL Total Bilirubin 0.6 0.2-1.0 mg/dL Direct Bilirubin 0.2 0.0-0.3 mg/dL Aspartate Amino Transf (AST/SGOT) 75 H 10-37 U/L Alanine Aminotransferase (ALT/SGPT) 54 12-78 U/L Alkaline Phosphatase 57 50-136 U/L Total Protein 4.9 L 6.0-8.3 g/dL Albumin 1.9 L 3.5-5.0 g/dL Blood Gas Specimen Type Arterial Arterial Blood pH 7.487 H 7.350-7.450 Arterial Blood Partial Pressure CO2 37 35-48 mmHg Arterial Blood Partial Pressure O2 74.7 L 83.0-108.0 mmHg Arterial Blood HCO3 27.2 21.0-28.0 mmol/L Arterial Blood Oxygen Saturation 94.5 94.0-98.0 % Arterial Blood Base Excess 3.8 H -2.0-3.0 mmol/L Hemoglobin (Blood Gas) 10.5 L 13.5-17.5 g/dL Sodium (Blood Gas) 135 L 136-145 MMOL/L Bedside Potassium (Blood Gas) 3.6 3.4-4.5 MMOL/L Bedside Chloride (Blood Gas) 102 98-107 MMOL/L Bedside Glucose (Blood Gas) 82 65-95 MG/DL Bedside Ionized Calcium (Blood Gas) 1.06 L 1.15-1.33 MMOL/L Bedside Lactic Acid (Blood Gas) 1.21 H 0.36-0.75 MMOL/L Blood Gas Temperature 37.0 35.5-37.0 CELSIUS Blood Gas Flow-by 4.00 0.00-15.00 L/min Blood Gas Vent Mode OXYMIZER NC ROOM AIR FiO2 36.0 % Blood Gas Specimen Comment RB RN ALYSHA Current Medications Medications (Trade) Dose Ordered Sig/Brittany Route PRN Reason Start Time Stop Time Status Last Admin Dose Admin Acetaminophen (TYLenol 325MG TAB) 650 mg Q4H PRN PO Temp >38.3C(AFTER EXTUBATION) 11/07/24 14:00 12/07/24 13:59 Acetaminophen (TYLenol 325MG TAB) 650 mg Q6H PRN PO TEMPERATURE GREATER THAN 101.5 11/03/24 21:00 11/07/24 14:00 DC 11/06/24 23:00 650 MG Acetaminophen (TYLenol 325MG TAB) 650 mg Q6H PRN PO MILD PAIN (1-3) 11/07/24 14:00 12/07/24 13:59 Acetaminophen (TYLenol 650MG SUPPOSITORY) 650 mg Q4H PRN RC Temp >38.3C WHILE INTUBATED 11/07/24 14:00 12/07/24 13:59 Acetaminophen (acetaMINOPHEN) 1,000 mg Q6H IVPB 11/09/24 09:00 11/12/24 08:59 DC 11/12/24 02:11 1,000 MG Acetaminophen (acetaMINOPHEN) 1,000 mg Q6H6 IV 11/07/24 18:00 11/08/24 17:59 DC 11/08/24 18:08 1,000 MG Albumin Human 250 ml @ 0 mls/hr AD PRN IV IF HEMODYNAMICALLY UNSTABLE 11/07/24 14:00 11/08/24 09:57 DC 11/08/24 09:57 125 MLS/HR Aminocaproic Acid 40175 mg/Sodium Chloride 310 ml @ 25 mls/hr AD IV 11/07/24 14:00 11/08/24 02:23 DC Aminocaproic Acid 24304 mg/Sodium Chloride 480 ml @ 0 mls/hr AD PRN IV BLEEDING CONTROL 11/07/24 11:00 11/07/24 14:03 DC Aspirin (Aspirin 81mg Ec Tab) 81 mg DAILY PO 11/04/24 09:00 12/04/24 08:59 11/13/24 08:56 81 MG Atorvastatin Calcium (LIPItor 40MG) 40 mg HS PO 11/03/24 21:00 11/03/24 20:40 DC Atorvastatin Calcium (LIPItor 40MG) 40 mg HS PO 11/03/24 21:00 11/09/24 07:45 DC 11/07/24 20:15 40 MG Atorvastatin Calcium (LIPItor 40MG) 40 mg HS PO 11/10/24 21:00 12/10/24 20:59 11/12/24 21:25 40 MG Calcium Gluconate (Calcium Gluc 1gm Vial) 1 gm AD PRN IV HYPOCALCEMIA 11/08/24 09:00 11/09/24 07:45 DC 11/08/24 16:36 1 GM Calcium Gluconate 1 gm/Sodium Chloride 60 ml @ 200 mls/hr AD PRN IV HYPOCALCEMIA 11/07/24 14:00 12/07/24 13:59 11/13/24 08:56 200 MLS/HR Cefazolin Sodium (Ancef) 2 gm ONCALL IVPB 11/06/24 22:00 11/07/24 14:00 DC Cefazolin Sodium (Ancef) 2 gm Q8H IVPB 11/07/24 19:00 11/08/24 11:01 DC 11/08/24 11:15 2 GM Clopidogrel Bisulfate (plaVIX 75MG) 75 mg DAILY PO 11/08/24 14:00 12/08/24 13:59 11/13/24 08:57 75 MG Dexmedetomidine/ Sodium Chloride (PRECEdex 400MCG/ 100ML-NS) 400 mcg PROTOCOL IV 11/07/24 14:00 12/07/24 13:59 Dextrose (D50w) 50 ml AD PRN IV HYPOGLYCEMIA PROTOCOL 11/07/24 14:00 12/07/24 13:59 Dextrose/Sodium Bicarbonate 1,025 ml @ 10 mls/hr Q24H IV 11/07/24 19:30 12/07/24 19:29 10/1/25 16:08 10 MLS/HR Docusate Sodium (COLace 100MG CAP) 100 mg BID PO 11/07/24 21:00 11/08/24 10:11 DC 11/07/24 20:15 100 MG Docusate Sodium (COLace 100MG CAP) 100 mg BID PO 11/10/24 09:00 12/10/24 08:59 11/12/24 21:16 100 MG Docusate Sodium (COLace LIQUID 100MG/10ML) 100 mg BID NG 11/08/24 10:30 11/09/24 21:53 DC 11/09/24 20:47 100 MG Enoxaparin Sodium (Lovenox) 30 mg DAILY SQ 11/10/24 09:00 11/13/24 08:38 DC 11/12/24 09:03 30 MG Enoxaparin Sodium (Lovenox) 40 mg DAILY SQ 11/04/24 09:00 11/07/24 13:38 DC 11/05/24 09:06 40 MG Epinephrine HCl 10 mg/Sodium Chloride 250 ml @ 13.948 mls/ hr AD PRN IV POST-OP CARDIOVASCULAR ORDERS 11/07/24 14:00 11/12/24 13:59 DC 11/09/24 19:48 7 MLS/HR Epinephrine HCl 10 mg/Sodium Chloride 250 ml @ 0 mls/hr AD PRN IV TITRATE 11/07/24 11:00 11/07/24 14:02 DC Epinephrine HCl 10 mg/Sodium Chloride 250 ml @ 0 mls/hr PROTOCOL IV 11/12/24 23:30 12/12/24 23:29 Famotidine (Pepcid 20mg Vial) 20 mg BID IV 11/07/24 21:00 11/08/24 08:59 DC 11/08/24 08:11 20 MG Famotidine (Pepcid 20mg Tab) 20 mg DAILY PO 11/04/24 09:00 11/07/24 13:38 DC 11/05/24 09:06 20 MG Furosemide (LASix 20MG TAB) 20 mg Q12H PO 11/09/24 09:00 12/09/24 08:59 11/13/24 09:06 20 MG Furosemide (LASix 20MG VIAL) 20 mg Q12H IV 11/08/24 09:00 11/09/24 08:59 DC 11/08/24 20:23 20 MG Glucagon (Glucagon 1mg Kit) 1 mg AD PRN IM HYPOGLYCEMIA PROTOCOL 11/07/24 14:00 12/07/24 13:59 Heparin Sodium (Porcine) (HEParin 5,000 UNIT VIAL) *calculation based on ACTUAL B... AD PRN IV HEPARIN PROTOCOL 11/13/24 09:30 12/13/24 09:29 Heparin Sodium/ Dextrose 250 ml @ 0 mls/hr Q6H IV 11/13/24 09:30 12/13/24 09:29 11/13/24 10:21 18.53 MLS/HR Hydralazine HCl (APRESOLine 20MG INJ) 10 mg Q6H PRN IV For:SBP above 160;DBP above 90 11/03/24 21:00 11/07/24 13:38 DC Insulin Human Regular 100 unit/ Sodium Chloride 100 ml @ 0 mls/hr AD IV 11/07/24 14:00 11/09/24 13:59 DC 11/08/24 12:30 4 MLS/HR Ipratropium [place] (AtrovENT UD) 0.5 MG [id number] IH 11/08/24 12:00 12/08/24 11:59 11/13/24 11:24 0.5 MG Lactulose (Constulose 20gm/ 30ml Udcup) 20 gm BID PRN PO CONSTIPATION 11/03/24 21:00 11/07/24 14:00 DC Lactulose (Constulose 20gm/ 30ml Udcup) 20 gm BID PRN PO CONSTIPATION 11/07/24 14:00 12/07/24 13:59 11/11/24 16:43 20 GM Levothyroxine Sodium (SYNTHroid 125MCG TAB) 125 mcg SYN PO 11/09/24 06:30 12/09/24 06:29 11/13/24 06:21 125 MCG Lidocaine HCl/ Dextrose 250 ml @ 0 mls/hr PROTOCOL PRN IV OTHER [SEE ORDER COMMENTS] 11/08/24 21:00 11/09/24 08:37 DC 11/08/24 21:15 7.5 MLS/HR Magnesium Hydroxide (Milk Of Magnesium 30ml) 30 ml DAILY PRN PO CONSTIPATION 11/07/24 14:00 12/07/24 13:59 Magnesium Sulfate 50 ml @ 12.5 mls/hr AD PRN IV MAG LEVEL LESS THAN 2.0 11/07/24 14:00 12/07/24 13:59 11/09/24 05:59 12.5 MLS/HR Metoprolol Tartrate (loprESSOR) 12.5 mg BID PO 11/09/24 09:00 11/11/24 09:39 DC Metoprolol Tartrate (loprESSOR) 50 mg BID PO 11/04/24 21:00 11/07/24 13:38 DC 11/06/24 20:38 50 MG Midodrine (PROAMatine 5 MG TABLET) 10 mg TID PO 11/09/24 21:00 11/11/24 06:58 DC 11/10/24 20:07 10 MG Midodrine (PROAMatine 5 MG TABLET) 15 mg TID PO 11/11/24 09:00 12/11/24 08:59 11/13/24 08:56 15 MG Montelukast Sodium (SinguLAIR) 10 mg HS PO 11/08/24 21:00 12/08/24 20:59 11/12/24 21:16 10 MG Morphine Sulfate (morPHINE 2MG SYG) 0.5 mg Q2H PRN IV MODERATE PAIN (4-6) 11/07/24 14:00 11/08/24 13:59 DC Morphine Sulfate (morPHINE 2MG SYG) 1 mg Q2H PRN IV SEVERE PAIN (7-10) 11/07/24 14:00 11/08/24 13:59 DC Morphine Sulfate (morPHINE 4MG SYG) 2 mg Q4H PRN IVP SEVERE PAIN (7-10) 11/03/24 21:00 11/07/24 13:38 DC 11/04/24 15:49 2 MG Nitroglycerin (Nitroglycerin 1gm Oint) 0.5 inch Q8H TD 11/03/24 21:00 11/07/24 13:38 DC 11/07/24 05:46 0.5 INCH Nitroglycerin/ Dextrose 0 ml @ 0 mls/hr AD IV 11/07/24 14:00 11/10/24 13:59 DC Norepinephrine Bitartrate 250 ml @ 0 mls/hr AD PRN IV TITRATE 11/07/24 11:00 11/07/24 14:02 DC Norepinephrine Bitartrate 250 ml @ 0 mls/hr AD PRN IV POST-OP CARDIOVASCULAR ORDERS 11/07/24 14:00 11/12/24 13:59 DC 11/09/24 17:09 5.6 MLS/HR Norepinephrine Bitartrate 250 ml @ 0 mls/hr PROTOCOL IV 11/12/24 18:30 12/12/24 18:29 11/13/24 08:42 2 MLS/HR Ondansetron HCl (zoFRAN 4MG INJ) 4 mg Q6H PRN IV NAUSEA/VOMITING 11/03/24 21:00 11/07/24 14:00 DC Ondansetron HCl (zoFRAN 4MG INJ) 4 mg Q6H PRN IV NAUSEA/VOMITING 11/07/24 14:00 12/07/24 13:59 11/09/24 21:50 4 MG Pantoprazole Sodium (PROTonix 40MG INJ) 40 mg BID IVP 11/08/24 09:00 12/08/24 08:59 11/13/24 08:57 40 MG Pharmacy Profile Note (Pharmacy Communication) 1 each ONCE MISC 11/13/24 09:00 11/13/24 08:57 DC Piperacillin Sod/ Tazobactam Sod (Zosyn 3.375gm+NS 50ml) 3.375 gm Q8H IV 11/09/24 10:00 11/09/24 09:38 DC Piperacillin Sod/ Tazobactam Sod (Zosyn 3.375gm+NS 50ml) 3.375 gm Q8H IV 11/09/24 10:00 11/19/24 09:59 11/13/24 09:06 3.375 GM Polyethylene Glycol (MIRalax 3350 17 GM POWD.PACK) 17 gm DAILY PO 11/09/24 09:00 12/09/24 08:59 11/11/24 08:29 17 GM Potassium Phosphate 250 ml @ 42 mls/hr AD PRN IV LOW PHOS LEVEL 11/07/24 14:00 12/07/24 13:59 11/08/24 07:22 42 MLS/HR Potassium Chloride 100 ml @ 100 mls/hr AD PRN IV HYPOKALEMIA 11/07/24 14:00 12/07/24 13:59 11/13/24 10:22 100 MLS/HR Propofol 100 ml @ 0 mls/hr AD PRN IV SEDATION 11/07/24 14:00 11/11/24 13:59 DC Sodium Bicarbonate (Sodium Bicarb 50meq 50ml Vial) 50 meq AD PRN IV OTHER[SEE DOSING INSTRUCTIONS] 11/07/24 14:00 11/10/24 13:59 DC 11/08/24 00:54 50 MEQ Sodium Chloride 500 ml @ 0 mls/hr AD IV 11/07/24 14:00 12/07/24 13:59 11/10/24 00:41 3 MLS/HR Sodium Chloride 1,000 ml @ 10 mls/hr ONCE IV 11/07/24 14:00 11/08/24 13:59 DC 11/07/24 20:11 10 MLS/HR Sodium Chloride 1,000 ml @ 100 mls/hr Q10H IV 11/06/24 12:30 11/06/24 15:29 DC Sodium Chloride (NS Flush 10ml) 10 ml Q8H PRN IVP IV LINE FLUSH 11/07/24 14:00 12/07/24 13:59 Sucralfate (Carafate) 1 gm TID PO 11/08/24 21:00 12/08/24 20:59 11/13/24 08:56 1 GM Tramadol HCl (UltRAM) 25 mg Q6H PRN PO MODERATE PAIN (4-6) 11/07/24 14:00 11/09/24 08:37 DC Tramadol HCl (UltRAM) 50 mg Q6H PRN PO SEVERE PAIN (7-10) 11/07/24 14:00 11/09/24 08:37 DC 11/08/24 23:30 50 MG Vitamin B Complex (Vitamin B-12) 1,000 mcg DAILY IM 11/07/24 09:00 11/13/24 08:59 DC 11/12/24 09:03 1,000 MCG DIAGNOSTICS / RADIOLOGY: [address] [address] IMAGING REPORT Signed PATIENT: ASHLEY NEGRETE MR#: [id number] : 1955 SEX: F AGE: 69 LOCATION: 2CH ORDER 2300 STATUS: ADM IN REPORT#: [id number] SERVICE 0600 REASON: vented pt ORDERING PHYSICIAN: AGNIESZKA AMAYA PROCEDURE: CXR1VW - CHEST 1VW EXAM: XR Chest, 3 Views. CLINICAL HISTORY: 69-year-old female ventilated patient. COMPARISON: Prior exam from 11/10/2024 at 3:39 PM. FINDINGS: LUNGS: Minimal pulmonary congestion, new compared to the prior exam. PLEURAL SPACES: No pleural effusion or pneumothorax. HEART: Moderate cardiomegaly, somewhat more pronounced compared to the prior exam. BONES: No acute osseous abnormality. VASCULATURE: Atherosclerotic aorta. LINES AND TUBES: Endotracheal tube tip at the fuad. Recommendation for withdrawal of 1 to 2 cm. IMPRESSION: 1. Endotracheal tube tip at the fuad. Recommend withdrawal of 1 to 2 cm. 2. Moderate cardiomegaly, somewhat more pronounced compared to the prior exam. 3. Atherosclerotic aorta. 4. Minimal pulmonary congestion, new compared to the prior XR chest from 11/10/2024 at 3:39 PM. /[place] DICTATED BY: JOSSY BIGGS MD DATE: 11/11/242120 ELECTRONICALLY SIGNED BY: JOSSY BIGGS MD DATE: 11/11/242120 ASSESSMENT: Coronary artery disease, POA, s/p CABG 3v and redo sternotomy with redo of graft failure now s/p CABG with 4v Hyperlipidemia, POA Grave's disease, POA Peripheral artery disease, suspected Carotid artery stenosis PLAN: Coronary artery disease, POA s/p CABG 3v and redo sternotomy with redo of graft failure now s/p CABG with 4v * Administer aspirin 325 mg p.o. now and then continue aspirin 81 mg p.o. daily * Troponin every 6 hours, serial troponin levels are 9-9-12-11. * Supplemental oxygen as needed to maintain SpO2 greater than 94% * Monitor for recurrence of chest pain, arrhythmias, or hemodynamic changes * Electrocardiogram was done which is normal. * A 2D Echo has been ordered due to patients history of chest pain on exertion and rest. * A cardiology consult has been placed for evaluation of CAD in patient with exertional chest pain and vascular disease. 11/04/24 * Echocardiogram was done which revealed aortic valve: trileaflet, mildly sclerotic, and opens well. * Pending Coronary CTA reports. * Lipid panels has been ordered to assess Cardiovascular risks. Results unremarkable. * In coronary CT angiography there is mixed calcified and noncalcified plaque in the proximal LAD with 80-90% stenosis. Left circumflex coronary artery: Normal caliber, nondominant and gives rise to a large OM branch. There is mixed calcified and noncalcified plaque in the mid LCx with 80-90% stenosis. * CAD-RAD of 4B. * Left heart catheterization with selective right and left coronary angiography was performed which showed critical left main disease. Severe ostial RCA stenosis. 11/06/24 * He complaints of headache 8/10 of intensity after the administration of Nitroglycerin. Tylenol has been administered. Closely monitoring the patient. * Cardiac catheterization demonstrated a very tight left main lesion and the patient is referred for surgical revascularization. * Patient is POD 5 S/P CABG, patient is being managed in the ICU per protocol. * Recent ABG shows lactic acid is 1.21. * Norepinephrine, epinephrine drip were restarted as he is hypotensive and has bradycardia. * Currently on impella at P5. * We will continue to following Cardiology and critical care recommendations. * He is on heparin drip and off lovenox. Peripheral vascular disease, Suspected * Patient has history of exertional bilateral leg pain * Diminished peripheral pulses * A SERA has been ordered due to the patients complaint of bilateral lower extremity claudication, and numbness/tingling in bilateral lower extremities. * Clear aspirin 81 mg daily and statin 40mg * Encouraged supervised exercise therapy for claudication * Counseled on continued smoking cessation 11/04/24 Peripheral Neuropathy * Vitamin B12 has been ordered to rule out peripheral neuropathy.11/05/24 * Complained of numbness and tingling in his limbs. * Vitamin B12 level was measured which showed 173L. * Patient has been started on vitamin B12 supplement 1000 mcg for 6 days. Carotid artery stenosis * Presence of bilateral carotid bruit on exam, suspicion for significant stenosis * Carotid Duplex ultrasound has been done, awaiting reports * Risk factor modification: Smoking cessation, BP control, glycemic control. 11/04/24 * Carotid artery ultrasound showed Bilateral ICA/CCA ratio more than 4.0 suggesting more than 70% stenosis. 11/05/24 * Cardiology recommended CT/MR angiogram when stable from surgical standpoint Hyperlipidemia * Continue home statin therapy atorvastatin 40 mg * Reinforce low-cholesterol, heart healthy diet (limit saturated fats, increase fiber, fruits and vegetables) * Encouraged regular physical activity as tolerated * Monitor lipid panel * Outpatient follow up with PCP/Cardiology for long-term lipid management and cardiovascular risks reduction Supportive measures * Start patient on GI prophylaxis * DVT prophylaxis * Monitor morning labs CBC and BMP daily * He is on clear liquid diet Hypothyroidism * Continue home medication of Synthroid * TSH 1.33. ATTESTATION BY PHYSICIAN I have seen and examined the patient. I reviewed the documentation, medical decision making, and treatment plan as noted by the resident provider above. I agree with the findings and plan of care. Shawn Loera IV, MD, AKSHAY MD Nov 13, 2024 12:29
--- NOTE | 2024-11-13 12:41 | PN ---
[facility] PROGRESS NOTE Date Patient Seen: Nov 13, 2024 Time of Visit: 12:39 Supervising Physician: Dr Sincere Puri Primary Care Physician: Self Referral Outpatient Specialists: [ ] Inpatient Consults: [facility], Dr Jacobo, Dr Wellington , Dr Meza PROBLEM LIST: MvCAD s/p CABG x 3+1 w/ redo on 11/07/24 Impella 5 x 5 Postop acute anemia requiring transfusion ELSA Hyperlipidemia Sclerotic nodule on the non coronary cusp on 2D echo Normal ventricular diastolic function with LVEF of 60-65% on 2D echo 11/05/24 Former smoker Graves disease Obesity INTERVAL HISTORY: Patient seen and examined, all labs and imaging have been reviewed, patient is sitting comfortably at bedside chair. Continues with the Impella, P5 Patient has clotted off his 4th a line. Anesthesia was brought into place of 5th. Hematology has also been requested to evaluate patient for his clotting. Patient is comfortable, he is reporting no pain or discomfort no chest pain or shortness of breath. No abdominal complaints. Good saturations on nasal cannula 2 L He is alert and oriented, Urine output 2200/12 chest tube is 30/110/12 Plan: Following Cardiothoracic Surgeons postop protocol Neurovascular checks per protocol Weaning Impella per CTS Weaning pressors I&Os Cardiac diet Telemetry PT/OT Heme-Onc recommendations Total critical care time 51 minutes, patient remains critical requiring pressors, Impella support. Time excludes any educational time or procedures performed REVIEW OF SYSTEMS: 12 point ROS reviewed with patient. Pertinent positives mentioned above. Otherwise negative. PHYSICAL EXAM: GENERAL: alert, weak, awake oriented x 3 HEENT: EOMI, Sclera non icteric, moist mucosa NECK: Supple, no JVD, trachea midline right IJ. Subclavian Impella 5.5 LUNGS: Rhonchi to right lower lobes. No wheezes HEART: Regular rate and rhythm. Normal S1 and S2, without murmurs mid incision line tenderness. Dressing clean dry and intact. ABD: Abdomen soft, nontender. Bowel sounds present EXT: No clubbing cyanosis or edema. Left femoral sheath. NEURO: Alert and oriented to person, follows commands Vital Signs (last 8hr) Date Time Temp Pulse Resp B/P (MAP) Pulse Ox O2 Delivery O2 Flow Rate FiO2 11/13/24 12:22 97.7 11/13/24 12:00 96 Nasal Cannula* 2 N/A N/C Oxymizer Hi LPM* 11/13/24 11:40 81 20 108/66 (80) 97 99/48 (65) 11/13/24 11:27 82 19 11/13/24 11:25 85 19 98/60 (73) 98 86/55 (65) 11/13/24 11:10 80 20 101/59 (73) 97 105/67 (80) 11/13/24 10:55 81 20 88/56 (67) 96 98/64 (75) 11/13/24 10:40 83 20 93/61 (72) 97 96/54 (68) 11/13/24 10:26 85 19 104/64 (77) 97 11/13/24 10:25 84 17 98/64 (75) 97 11/13/24 10:10 80 20 101/63 (76) 98 97/56 (70) 11/13/24 09:55 86 15 90/54 (66) 97 115/41 (65) 11/13/24 09:40 86 20 86/57 (67) 96 91/64 (73) 11/13/24 09:25 84 20 91/58 (69) 97 96/60 (72) 11/13/24 09:10 86 20 89/60 (70) 95 11/13/24 09:00 84 20 94 11/13/24 08:55 85 13 89/63 (72) 95 11/13/24 08:45 86 14 /6 95 11/13/24 08:42 103/68 11/13/24 08:40 85 20 /4 95 87/57 (67) 11/13/24 08:30 83 20 95 11/13/24 08:25 85 20 /13 95 98/67 (77) 11/13/24 08:15 82 19 /9 95 11/13/24 08:10 82 20 /11 95 103/68 (80) 11/13/24 08:09 98.1 11/13/24 08:00 84 10 95 11/13/24 08:00 96 Nasal Cannula* 2 N/A N/C Oxymizer Hi LPM* 11/13/24 07:59 81 20 103/73 (83) 95 11/13/24 07:45 86 20 /20 95 11/13/24 07:40 88 15 /22 98 111/70 (84) 11/13/24 07:30 88 / 95 11/13/24 07:27 90 95 94/60 (71) 11/13/24 07:15 82 17 /9 94 11/13/24 07:10 81 18 /12 96 101/71 (81) 11/13/24 07:08 82 18 /12 95 92/63 (73) 11/13/24 07:00 81 18 /14 96 11/13/24 06:41 79 18 11/13/24 06:41 80 20 N/Cannula Oximizer Hi LPM 2.0 28 11/13/24 06:36 11/13/24 06:11 79 17 101/61 (74) 95 11/13/24 05:54 81 18 85/58 (67) 97 11/13/24 05:25 84 19 96/57 (70) 97 11/13/24 05:23 84 16 99/55 (70) 97 11/13/24 04:55 83 18 96/62 (73) 97 11/13/24 04:40 81 16 95/55 (68) 96 LABS: Hematology Labs: Test 11/13/24 05:33 Range/Units White Blood Count 9.7 4.8-10.8 K/uL Red Blood Count 2.79 L 4.50-6.20 MIL/uL Hemoglobin 8.9 L 14.0-18.0 g/dL Hematocrit 27.3 L 42-54 % Mean Corpuscular Volume 97.8 79-99 fL Mean Corpuscular Hemoglobin 31.9 27.0-33.0 pg Mean Corpuscular Hemoglobin Concent 32.6 32.0-36.0 g/dL Red Cell Distribution Width 13.0 11.0-15.5 % Platelet Count 150 # 130-400 K/uL Mean Platelet Volume 10.2 7.5-10.5 fL Nucleated Red Blood Cells 0.2 H 0.0-0.19 % Chemistry Labs: Test 11/13/24 05:33 11/12/24 05:28 Range/Units Sodium Level 140 136-145 mmol/L Potassium Level 3.5 3.5-5.1 mmol/L Chloride Level 104 101-111 mmol/L Carbon Dioxide Level 27 21-32 mmol/L Blood Urea Nitrogen 13 7-18 mg/dL Creatinine 0.9 0.5-1.3 mg/dL Glomerular Filtration Rate Calc 93 >90 mL/min Random Glucose 140 H 70-105 mg/dL Total Calcium 7.4 L 8.5-10.1 mg/dL Magnesium Level 2.10 1.80-2.40 mg/dL Total Bilirubin 0.6 0.2-1.0 mg/dL Direct Bilirubin 0.2 0.0-0.3 mg/dL Aspartate Amino Transf (AST/SGOT) 75 H 10-37 U/L Alanine Aminotransferase (ALT/SGPT) 54 12-78 U/L Alkaline Phosphatase 57 50-136 U/L Total Protein 4.9 L 6.0-8.3 g/dL Albumin 1.9 L 3.5-5.0 g/dL Coagulation Labs: Test 11/13/24 08:56 Range/Units Activated Partial Thromboplast Time 28.3 26.3-35.5 SEC DIAGNOSTICS / RADIOLOGY RESULTS: [ ] PLAN NEURO: Minimize central acting medications as possible. Fall Precautions. Well lighted room through the day and minimize interruptions through the night to prevent acute delirium. PULMONARY: Supplemental 02 as needed Titrate Fio2 to keep Spo2 > or = 90% DuoNebs and CPT as needed IS hourly while awake for pulmonary hygiene Out of bed to chair as tolerated VAP Bundle Bipap 12/6 fio2 50% RT to titrate FiO2 as needed to maintain O2 above 92% CARDIOVASCULAR: Follow hemodynamics. Titrate vasopressor to keep MAP >65 or systolic blood pressure >95mmHg DIPS: Levophed Epi Lidocaine Insulin LINES: Central venous catheter right IJ Impella Chest tube A line Daniel catheter Left femoral sheath in place GI & NUTRITION: NPO for now Aspirations precautions Prokinetic agents and laxatives as needed KIDNEYS & ELECTROLYTES: Strict monitoring of intake and output Daily weights Avoid nephrotoxic agents Monitor electrolytes and replace as needed Goal urine output of 30mL/hr or 0.5mL/kg/hr Urine output 2 L in last 24 hours Chest tube drained 400 mL to lateral side Mediastinal drain 90 mL with I&O balance positive 230 mL ENDOCRINE: Maintain blood glucose between 100-180 at all times. Insulin sliding scale for blood glucose management INFECTIOUS DISEASE: Trend temperature. Nichols-culture if febrile. Micro: [ ] MRSA negative Antibiotics: [ ] Ancef HEMATOLOGY & COAGULATION: Monitor H&H. Keep Hgb > 7 Transfuse 1 unit of PRBC for Hgb < 7 Transfuse 1 pack of platelets of platelets < 20, 000 Watch for any signs and symptoms of bleeding SKIN: Pressure ulcer prevention per facility protocol Rehab: PT/OT Prophylaxis: GI: [ Protonix 40 mg IV b.i.d.] DVT: [Al hose per CV ] Code Status: Full Resuscitation Disposition: [ ICU] Case was discussed and seen with my supervising physician. The above plan was formulated and agreed upon. SNOW MATAMOROS Nov 13, 2024 12:41
--- NOTE | 2024-11-13 13:23 | CONS ---
ELOY MARIE MD 11/13/24 1323: HISTORY ALLERGIES: Coded Allergies: No Known Allergies (Unverified Allergy, Unknown, 11/03/24) CURRENT MEDS: Current Medications Medications (Trade) Dose Ordered Sig/Brittany Route PRN Reason Start Time Stop Time Status Last Admin Norepinephrine Bitartrate 250 ml @ 0 mls/hr PROTOCOL IV 11/12/24 18:30 12/12/24 18:29 11/13/24 08:42 Epinephrine HCl 10 mg/Sodium Chloride 250 ml @ 0 mls/hr PROTOCOL IV 11/12/24 23:30 12/12/24 23:29 Heparin Sodium (Porcine) (HEParin 5,000 UNIT VIAL) *calculation based on ACTUAL B... AD PRN IV HEPARIN PROTOCOL 11/13/24 09:30 12/13/24 09:29 Heparin Sodium/ Dextrose 250 ml @ 0 mls/hr Q6H IV 11/13/24 09:30 12/13/24 09:29 11/13/24 10:21 Folic Acid (FOLic ACID 1 MG TABLET) 1 mg DAILY PO 11/14/24 09:00 12/14/24 08:59 UNV Vitamin B Complex (Vitamin B-12) 1,000 mcg DAILY PO 11/14/24 09:00 12/14/24 08:59 UNV Iron Sucrose (VenoFER) 100 mg ONCE IV 11/13/24 13:30 11/16/24 13:29 UNV PHYSICAL EXAM VITALS: Vital Signs Date Time Temp Pulse Resp B/P (MAP) Pulse Ox O2 Delivery O2 Flow Rate FiO2 11/13/24 12:22 97.7 11/13/24 12:00 96 Nasal Cannula* 2 N/A N/C Oxymizer Hi LPM* 11/13/24 11:40 81 20 108/66 (80) 99/48 (65) PLAN Follow up on cold agglutinin antibodies Keep patient warm with hand/feet warmers, socks, and blankets Start folic acid 1 mg p.o daily and vitamin B12 82087 mcg p.o daily TAINA ARZOLA MD 11/14/24 1111: PLAN I attest that I was physically present to evaluate the patient and I reviewed and discussed the case with the Resident and agree with the Resident's findings and plans of care as documented above with modifications. Case discussed with resident on the date stated at the beginning of note. Patient was first seen and evaluated by me during this hospitalization. ELOY MARIE MD Nov 13, 2024 13:23 TAINA ARZOLA MD Nov 14, 2024 11:11
[2024-11-13 16:43] LABS: CREATININE 1.0 mg/dL (0.5-1.3); GLOMERULAR FILTR. RATE CALC 82.0 mL/min (>90); GLUCOSE,RANDOM 160.0 mg/dL (70-105); SODIUM SERUM 141.0 mmol/L (136-145); UREA NITROGEN, BLOOD 10.0 mg/dL (7-18)
[2024-11-13 17:02] LABS: INR 1.05 (0.85-1.15)
[2024-11-14] VITALS (104 sets, daily range): BP systolic 70–116; BP diastolic 33–88; PULSE 64–93; RESP 6–30; TEMP 97.6–98.7; O2SAT 94–98
[2024-11-14] MEDS: PoTASSium chl 10% ELIXIR 20MEQ 20 MEQ/15 ML UDCUP PO PRN (00:17)
--- NOTE | 2024-11-14 05:13 | PN ---
SUBJECTIVE: The patient is postop day #6 for Impella supported coronary artery bypass grafting. The patient was doing well. He was weaned off of pressors and his Impella was being weaned; however, when he got up yesterday, the patient became bradycardic, dropped his blood pressure requiring Levophed and epinephrine drips. OBJECTIVE: VITAL SIGNS: His vital signs reveal a pulse of 84, blood pressure is 103/73, respirations 20, oxygen saturation 94%. HEENT: Reveals normocephalic, atraumatic. Extraocular movements intact. He has a right cervical [place]-Aless[place] catheter and a left cervical L5.5 Impella left ventricular assist device, which is on P5 giving 3.1 liters per minute of flow. He has nasal cannula oxygen prongs under his nose. CHEST: The sternal wound bandage he has his chest tube still in place. ABDOMEN: Reveals mild to moderate obesity. EXTREMITIES: He has SCDs on his lower extremities. He is on Levophed drip at 0.01 mcg/kg per minute and epinephrine drip at 0.05 mcg/kg per minute. ASSESSMENT AND PLAN: 1. Status post Impella supported coronary artery bypass grafting. Attempt to wean off of Levophed drip. Continue Impella support as the epinephrine is again weaned. We will start heparin per ACS protocol for the Impella catheter and continue aspirin, Plavix, Lasix and midodrine. 2. Postoperative acute pulmonary insufficiency. Maintain nasal cannula oxygen to maintain oxygen saturations greater than 90%. 3. Hypercholesterolemia. Lipitor 40 mg p.o. at bedtime, low cholesterol, cardiac diet. 4. Deep venous thrombosis prophylaxis. The patient should be covered with his SCDs and heparin drip. Time spent 30 minutes. The patient is critically ill in the ICU. TID: [id number] RECEIPT: [id number]
[2024-11-14 05:28] LABS: NUCLEATED RED BLOOD CELLS 0.0 % (0.0-0.19); PLATELET COUNT (AUTO) 199 K/uL (130-400); RED BLOOD CELL COUNT(AUTO) 2.76 MIL/uL (4.50-6.20); RED CELL DISTRIBUTION WIDTH 13.3 % (11.0-15.5); WHITE BLOOD COUNT (AUTO) 8.7 K/uL (4.8-10.8)
[2024-11-14 05:43] LABS: ASPARTATE AMINOTRANSFERASE 61.0 U/L (10-37); CREATININE 0.9 mg/dL (0.5-1.3); GLOMERULAR FILTR. RATE CALC 93.0 mL/min (>90); GLUCOSE,RANDOM 133.0 mg/dL (70-105); PHOSPHORUS 2.7 mg/dL (2.5-4.9); SODIUM SERUM 140.0 mmol/L (136-145); TOTAL PROTEIN, SERUM 5.6 g/dL (6.0-8.3); UREA NITROGEN, BLOOD 9.0 mg/dL (7-18)
[2024-11-14 05:56] LABS: IMMATURE GRANULOCYTE ABSOLUTE 0.53 K/uL (0-1)
--- NOTE | 2024-11-14 07:49 | PN ---
INTERVAL HISTORY: Patient seen and examined, all labs and imaging have been reviewed, patient is sitting comfortably at bedside chair. Continues with the Impella, P5 Patient has clotted off his 4th a line. Anesthesia was brought into place of 5th. Hematology has also been requested to evaluate patient for his clotting. Patient is comfortable, he is reporting no pain or discomfort no chest pain or shortness of breath. No abdominal complaints. Good saturations on nasal cannula 2 L He is alert and oriented, Urine output 2200/12 chest tube is 30/110/12 PHYSICAL EXAM: GENERAL: alert, weak, awake oriented x 3 HEENT: EOMI, Sclera non icteric, moist mucosa NECK: Supple, no JVD, trachea midline right IJ. Subclavian Impella 5.5 LUNGS: Rhonchi to right lower lobes. No wheezes HEART: Regular rate and rhythm. Normal S1 and S2, without murmurs mid incision line tenderness. Dressing clean dry and intact. ABD: Abdomen soft, nontender. Bowel sounds present EXT: No clubbing cyanosis or edema. Left femoral sheath. NEURO: Alert and oriented to person, follows commands Assessment 1. Anemia 2. Thrombocytopenia 3.CAD s/p CABG x 3+1 w/ redo on 11/07/24 Impella 5 x 5 4. ELSA 5. Hyperlipidemia 6. Sclerotic nodule on the non coronary cusp on 2D echo Normal ventricular diastolic function with LVEF of 60-65% on 2D echo 11/05/24 7. Former smoker Plan: 1. Peripheral blood smear showed red blood cells to be normocytic normochromic. There was no fragment cell or schistocyte. There is no teardrop cell. There is no rouleaux phenomena. There is no pelger-Huet cell. White blood cell with no blasts. Platelet was normal in morphology and count. 2. There was hypersegmented neutrophils. This patient to be started on folic acid 1 mg p.o. daily and vitamin B12 1000 mcg p.o. daily. 3. 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 We will ask for direct Juan to be done on this patient. 4. 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 We will ask for SPEP, UPEP and free light chain. If there is monoclonal protein we will do a bone marrow biopsy. 5. 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 Continue care as per cardiothoracic surgery Vitals/Labs Vital Signs Date Time Temp Pulse Resp B/P (MAP) Pulse Ox O2 Delivery O2 Flow Rate FiO2 11/14/24 06:52 88 22 11/14/24 06:51 N/Cannula Oximizer Hi LPM 2.0 28 11/14/24 05:00 93/42 (59) 96 97/58 (71) 11/14/24 04:08 98.6 Laboratory Tests 11/13/24 16:17 11/13/24 23:15 11/14/24 05:12 Medications Current Medications Aspirin 325 mg ONCE ONCE PO Last administered on 11/03/24at 17:53; Start 11/03/24 at 18:00; Stop 11/03/24 at 18:01; Status DC Acetaminophen 650 mg Q6H PRN PO Last administered on 11/06/24at 23:00; Start 11/03/24 at 21:00; Stop 11/07/24 at 14:00; Status DC Aspirin 81 mg DAILY PO Last administered on 11/13/24at 08:56; Start 11/04/24 at 09:00; Stop 12/04/24 at 08:59 Atorvastatin Calcium 40 mg HS PO; Start 11/03/24 at 21:00; Stop 11/03/24 at 20:40; Status DC Enoxaparin Sodium 40 mg DAILY SQ Last administered on 11/05/24at 09:06; Start 11/04/24 at 09:00; Stop 11/07/24 at 13:38; Status DC Famotidine 20 mg DAILY PO Last administered on 11/05/24at 09:06; Start 11/04/24 at 09:00; Stop 11/07/24 at 13:38; Status DC Hydralazine HCl 10 mg Q6H PRN IV; Start 11/03/24 at 21:00; Stop 11/07/24 at 13:38; Status DC Lactulose 20 gm BID PRN PO; Start 11/03/24 at 21:00; Stop 11/07/24 at 14:00; Status DC Morphine Sulfate 2 mg Q4H PRN IVP Last administered on 11/04/24at 15:49; Start 11/03/24 at 21:00; Stop 11/07/24 at 13:38; Status DC Nitroglycerin 0.5 inch Q8H TD Last administered on 11/07/24at 05:46; Start 11/03/24 at 21:00; Stop 11/07/24 at 13:38; Status DC Ondansetron HCl 4 mg Q6H PRN IV; Start 11/03/24 at 21:00; Stop 11/07/24 at 14:00; Status DC Atorvastatin Calcium 40 mg HS PO Last administered on 11/07/24at 20:15; Start 11/03/24 at 21:00; Stop 11/09/24 at 07:45; Status DC Metoprolol Tartrate 50 mg BID PO Last administered on 11/06/24at 20:38; Start 11/04/24 at 21:00; Stop 11/07/24 at 13:38; Status DC Iohexol 35,000 mg STK-MED ONCE IV; Start 11/05/24 at 11:05; Stop 11/05/24 at 11:05; Status DC Sodium Chloride 1,000 ml @ 100 mls/hr Q10H ONCE IV Last administered on 11/05/24at 14:03; Start 11/05/24 at 13:30; Stop 11/05/24 at 23:29; Status DC Lidocaine HCl 20 ml STK-MED ONCE .ROUTE; Start 11/06/24 at 11:05; Stop 11/06/24 at 11:05; Status DC Iohexol 35,000 mg STK-MED ONCE IV; Start 11/06/24 at 11:05; Stop 11/06/24 at 11:06; Status DC Heparin Sodium (Porcine) 10,000 unit STK-MED ONCE .ROUTE; Start 11/06/24 at 11:05; Stop 11/06/24 at 11:06; Status DC Heparin Sodium/ Sodium Chloride 1,000 ml @ As Directed STK-MED ONCE IV; Start 11/06/24 at 11:06; Stop 11/06/24 at 11:06; Status DC Nitroglycerin 50 mg STK-MED ONCE .ROUTE; Start 11/06/24 at 11:06; Stop 11/06/24 at 11:06; Status DC Verapamil HCl 5 mg STK-MED ONCE .ROUTE; Start 11/06/24 at 11:06; Stop 11/06/24 at 11:06; Status DC Fentanyl Citrate 100 mcg STK-MED ONCE .ROUTE; Start 11/06/24 at 11:35; Stop 11/06/24 at 11:36; Status DC Midazolam HCl 2 mg STK-MED ONCE .ROUTE; Start 11/06/24 at 11:35; Stop 11/06/24 at 11:36; Status DC Vitamin B Complex 1,000 mcg DAILY IM Last administered on 11/12/24at 09:03; Start 11/07/24 at 09:00; Stop 11/13/24 at 08:59; Status DC Sodium Chloride 1,000 ml @ 100 mls/hr Q10H IV; Start 11/06/24 at 12:30; Stop 11/06/24 at 15:29; Status DC Cefazolin Sodium 2 gm ONCALL IVPB; Start 11/06/24 at 22:00; Stop 11/07/24 at 14:00; Status DC Epinephrine HCl 10 mg/Sodium Chloride 250 ml @ 0 mls/hr AD PRN IV; Start 11/07/24 at 11:00; Stop 11/07/24 at 14:02; Status DC Norepinephrine Bitartrate 250 ml @ 0 mls/hr AD PRN IV; Start 11/07/24 at 11:00; Stop 11/07/24 at 14:02; Status DC Aminocaproic Acid 87702 mg/Sodium Chloride 480 ml @ 0 mls/hr AD PRN IV; Start 11/07/24 at 11:00; Stop 11/07/24 at 14:03; Status DC Metoprolol Tartrate 25 mg ONCE ONCE PO Last administered on 11/07/24at 11:15; Start 11/07/24 at 11:30; Stop 11/07/24 at 11:31; Status DC Nitroglycerin/ Dextrose 1 ml @ As Directed STK-MED ONCE .ROUTE; Start 11/07/24 at 11:25; Stop 11/07/24 at 11:25; Status DC Acetaminophen 1,000 mg Q6H6 IV Last administered on 11/08/24at 18:08; Start 11/07/24 at 18:00; Stop 11/08/24 at 17:59; Status DC Aspirin 81 mg ONCE ONCE NG; Start 11/07/24 at 17:00; Stop 11/07/24 at 17:01; Status DC Docusate Sodium 100 mg BID PO Last administered on 11/07/24at 20:15; Start 11/07/24 at 21:00; Stop 11/08/24 at 10:11; Status DC Lactulose 20 gm BID PRN PO Last administered on 11/11/24at 16:43; Start 11/07/24 at 14:00; Stop 12/07/24 at 13:59 Furosemide 20 mg Q12H PO Last administered on 11/13/24at 20:26; Start 11/09/24 at 09:00; Stop 12/09/24 at 08:59 Furosemide 20 mg Q12H IV Last administered on 11/08/24at 20:23; Start 11/08/24 at 09:00; Stop 11/09/24 at 08:59; Status DC Enoxaparin Sodium 30 mg DAILY SQ Last administered on 11/12/24at 09:03; Start 11/10/24 at 09:00; Stop 11/13/24 at 08:38; Status DC Metoprolol Tartrate 12.5 mg BID PO; Start 11/09/24 at 09:00; Stop 11/11/24 at 09:39; Status DC Magnesium Hydroxide 30 ml DAILY PRN PO; Start 11/07/24 at 14:00; Stop 12/07/24 at 13:59 Dexmedetomidine/ Sodium Chloride 400 mcg PROTOCOL IV; Start 11/07/24 at 14:00; Stop 12/07/24 at 13:59 Acetaminophen 650 mg Q6H PRN PO; Start 11/07/24 at 14:00; Stop 12/07/24 at 13:59 Sodium Chloride 1,000 ml @ 10 mls/hr ONCE IV Last administered on 11/07/24at 20:11; Start 11/07/24 at 14:00; Stop 11/08/24 at 13:59; Status DC Sodium Chloride 10 ml Q8H PRN IVP; Start 11/07/24 at 14:00; Stop 12/07/24 at 13:59 Morphine Sulfate 0.5 mg Q2H PRN IV; Start 11/07/24 at 14:00; Stop 11/08/24 at 13:59; Status DC Morphine Sulfate 1 mg Q2H PRN IV; Start 11/07/24 at 14:00; Stop 11/08/24 at 13:59; Status DC Acetaminophen 650 mg Q4H PRN RC; Start 11/07/24 at 14:00; Stop 12/07/24 at 13:59 Ondansetron HCl 4 mg Q6H PRN IV Last administered on 11/09/24at 21:50; Start 11/07/24 at 14:00; Stop 12/07/24 at 13:59 Sodium Chloride 500 ml @ 0 mls/hr AD IV Last administered on 11/10/24at 00:41; Start 11/07/24 at 14:00; Stop 12/07/24 at 13:59 Nitroglycerin/ Dextrose 0 ml @ 0 mls/hr AD IV; Start 11/07/24 at 14:00; Stop 11/10/24 at 13:59; Status DC Propofol 100 ml @ 0 mls/hr AD PRN IV; Start 11/07/24 at 14:00; Stop 11/11/24 at 13:59; Status DC Norepinephrine Bitartrate 250 ml @ 0 mls/hr AD PRN IV Last administered on 11/09/24at 17:09; Start 11/07/24 at 14:00; Stop 11/12/24 at 13:59; Status DC Epinephrine HCl 10 mg/Sodium Chloride 250 ml @ 13.948 mls/ hr AD PRN IV Last administered on 11/09/24at 19:48; Start 11/07/24 at 14:00; Stop 11/12/24 at 13:59; Status DC Aminocaproic Acid 99715 mg/Sodium Chloride 310 ml @ 25 mls/hr AD IV; Start 11/07/24 at 14:00; Stop 11/08/24 at 02:23; Status DC Calcium Gluconate 1 gm/Sodium Chloride 60 ml @ 200 mls/hr AD PRN IV Last administered on 11/13/24at 17:06; Start 11/07/24 at 14:00; Stop 12/07/24 at 13:59 Magnesium Sulfate 50 ml @ 12.5 mls/hr AD PRN IV Last administered on 11/09/24at 05:59; Start 11/07/24 at 14:00; Stop 12/07/24 at 13:59 Potassium Chloride 100 ml @ 100 mls/hr AD PRN IV Last administered on 11/13/24at 17:02; Start 11/07/24 at 14:00; Stop 12/07/24 at 13:59 Potassium Phosphate 250 ml @ 42 mls/hr AD PRN IV Last administered on 11/08/24at 07:22; Start 11/07/24 at 14:00; Stop 12/07/24 at 13:59 Albumin Human 250 ml @ 0 mls/hr AD PRN IV Last administered on 11/08/24at 09:57; Start 11/07/24 at 14:00; Stop 11/08/24 at 09:57; Status DC Acetaminophen 650 mg Q4H PRN PO; Start 11/07/24 at 14:00; Stop 12/07/24 at 13:59 Insulin Human Regular 100 unit/ Sodium Chloride 100 ml @ 0 mls/hr AD IV Last administered on 11/08/24at 12:30; Start 11/07/24 at 14:00; Stop 11/09/24 at 13:59; Status DC Cefazolin Sodium 2 gm Q8H IVPB Last administered on 11/08/24at 11:15; Start 11/07/24 at 19:00; Stop 11/08/24 at 11:01; Status DC Tramadol HCl 25 mg Q6H PRN PO; Start 11/07/24 at 14:00; Stop 11/09/24 at 08:37; Status DC Tramadol HCl 50 mg Q6H PRN PO Last administered on 11/08/24at 23:30; Start 11/07/24 at 14:00; Stop 11/09/24 at 08:37; Status DC Famotidine 20 mg BID IV Last administered on 11/08/24at 08:11; Start 11/07/24 at 21:00; Stop 11/08/24 at 08:59; Status DC Sodium Bicarbonate 50 meq AD PRN IV Last administered on 11/08/24at 00:54; Start 11/07/24 at 14:00; Stop 11/10/24 at 13:59; Status DC Dextrose 50 ml AD PRN IV; Start 11/07/24 at 14:00; Stop 12/07/24 at 13:59 Glucagon 1 mg AD PRN IM; Start 11/07/24 at 14:00; Stop 12/07/24 at 13:59 Protamine Sulfate 250 mg STK-MED ONCE IV; Start 11/07/24 at 14:25; Stop 11/07/24 at 14:26; Status DC Lidocaine HCl 100 mg STK-MED ONCE .ROUTE; Start 11/07/24 at 14:25; Stop 11/07/24 at 14:26; Status DC Heparin Sodium (Porcine) 10,000 unit STK-MED ONCE .ROUTE; Start 11/07/24 at 14:26; Stop 11/07/24 at 14:26; Status DC Epinephrine HCl 1 mg STK-MED ONCE .ROUTE; Start 11/07/24 at 14:26; Stop 11/07/24 at 14:26; Status DC Sodium Bicarbonate 200 ml @ As Directed STK-MED ONCE .ROUTE; Start 11/07/24 at 14:26; Stop 11/07/24 at 14:26; Status DC Norepinephrine Bitartrate 4 mg STK-MED ONCE IV; Start 11/07/24 at 14:26; Stop 11/07/24 at 14:26; Status DC Propofol 200 mg STK-MED ONCE IV; Start 11/07/24 at 14:26; Stop 11/07/24 at 14:26; Status DC Fentanyl Citrate 1,000 mcg STK-MED ONCE IJ; Start 11/07/24 at 14:26; Stop 11/07/24 at 14:27; Status DC Midazolam HCl 2 mg STK-MED ONCE .ROUTE; Start 11/07/24 at 14:26; Stop 11/07/24 at 14:27; Status DC Rocuronium [place] 50 mg STK-MED ONCE .ROUTE; Start 11/07/24 at 14:27; Stop 11/07/24 at 14:27; Status DC Ketamine HCl 50 mg STK-MED ONCE .ROUTE; Start 11/07/24 at 14:31; Stop 11/07/24 at 14:31; Status DC Cefazolin Sodium 1 gm STK-MED ONCE .ROUTE Last administered on 11/07/24at 15:00; Start 11/07/24 at 14:55; Stop 11/07/24 at 14:56; Status DC Heparin Sodium/ Sodium Chloride 500 ml @ As Directed STK-MED ONCE IV; Start 11/07/24 at 14:57; Stop 11/07/24 at 14:57; Status DC Papaverine HCl 60 mg STK-MED ONCE .ROUTE Last administered on 11/07/24at 15:51; Start 11/07/24 at 14:57; Stop 11/07/24 at 14:57; Status DC Cefazolin Sodium 1 gm STK-MED ONCE .ROUTE Last administered on 11/07/24at 15:49; Start 11/07/24 at 15:46; Stop 11/07/24 at 15:46; Status DC Amiodarone HCl 150 mg STK-MED ONCE .ROUTE; Start 11/07/24 at 17:06; Stop 11/07/24 at 17:06; Status DC Amiodarone HCL/ Dextrose 100 ml @ As Directed STK-MED ONCE .ROUTE; Start 11/07/24 at 17:08; Stop 11/07/24 at 17:09; Status DC Cardioplegic Solution 0 ml @ As Directed STK-MED ONCE IV; Start 11/07/24 at 17:13; Stop 11/07/24 at 17:13; Status DC Heparin Sodium (Porcine) 10,000 unit STK-MED ONCE .ROUTE; Start 11/07/24 at 17:15; Stop 11/07/24 at 17:15; Status DC Sodium Bicarbonate 50 ml @ As Directed STK-MED ONCE .ROUTE; Start 11/07/24 at 17:26; Stop 11/07/24 at 17:26; Status DC Sodium Bicarbonate 200 ml @ As Directed STK-MED ONCE .ROUTE; Start 11/07/24 at 17:36; Stop 11/07/24 at 17:36; Status DC Midazolam HCl 5 mg STK-MED ONCE .ROUTE; Start 11/07/24 at 17:57; Stop 11/07/24 at 17:57; Status DC Sodium Bicarbonate 150 ml @ As Directed STK-MED ONCE .ROUTE; Start 11/07/24 at 18:06; Stop 11/07/24 at 18:06; Status DC Amiodarone HCL/ Dextrose 100 ml @ As Directed STK-MED ONCE .ROUTE; Start 11/07/24 at 18:25; Stop 11/07/24 at 18:25; Status DC Cefazolin Sodium 1 gm STK-MED ONCE .ROUTE; Start 11/07/24 at 18:43; Stop 11/07/24 at 18:43; Status DC Ketamine HCl 50 mg STK-MED ONCE .ROUTE; Start 11/07/24 at 18:56; Stop 11/07/24 at 18:56; Status DC Ephedrine Sulfate 50 mg STK-MED ONCE .ROUTE; Start 11/07/24 at 18:58; Stop 11/07/24 at 18:59; Status DC Lidocaine HCl/ Dextrose 250 ml @ As Directed STK-MED ONCE IV Last administered on 11/07/24at 20:08; Start 11/07/24 at 19:02; Stop 11/07/24 at 19:02; Status DC Dextrose/Sodium Bicarbonate 1,025 ml @ 10 mls/hr Q24H IV Last administered on 11/11/24at 16:08; Start 11/07/24 at 19:30; Stop 12/07/24 at 19:29 Calcium Gluconate 1 gm AD PRN IV Last administered on 11/08/24at 16:36; Start 11/08/24 at 09:00; Stop 11/09/24 at 07:45; Status DC Pantoprazole Sodium 40 mg BID IVP Last administered on 11/13/24at 20:25; Start 11/08/24 at 09:00; Stop 12/08/24 at 08:59 Montelukast Sodium 10 mg HS PO Last administered on 11/13/24at 20:26; Start 11/08/24 at 21:00; Stop 12/08/24 at 20:59 Ipratropium [place] 0.5 MG [id number] IH Last administered on 11/14/24at 06:51; Start 11/08/24 at 12:00; Stop 12/08/24 at 11:59 Polyethylene Glycol 17 gm DAILY PO Last administered on 11/11/24at 08:29; Start 11/09/24 at 09:00; Stop 12/09/24 at 08:59 Polyethylene Glycol 17 gm STK-MED ONCE .ROUTE; Start 11/08/24 at 10:01; Stop 11/08/24 at 10:02; Status DC Docusate Sodium 100 mg BID NG Last administered on 11/09/24at 20:47; Start 11/08/24 at 10:30; Stop 11/09/24 at 21:53; Status DC Levothyroxine Sodium 125 mcg SYN PO Last administered on 11/14/24at 05:34; Start 11/09/24 at 06:30; Stop 12/09/24 at 06:29 Clopidogrel Bisulfate 75 mg DAILY PO Last administered on 11/13/24at 08:57; Start 11/08/24 at 14:00; Stop 12/08/24 at 13:59 Sucralfate 1 gm TID PO Last administered on 11/13/24at 20:25; Start 11/08/24 at 21:00; Stop 12/08/24 at 20:59 Lidocaine HCl/ Dextrose 250 ml @ 0 mls/hr PROTOCOL PRN IV Last administered on 11/08/24at 21:15; Start 11/08/24 at 21:00; Stop 11/09/24 at 08:37; Status DC Metoclopramide HCl 5 mg ONCE ONCE IVP Last administered on 11/09/24at 00:22; Start 11/09/24 at 00:30; Stop 11/09/24 at 00:31; Status DC Acetaminophen 100 ml @ As Directed STK-MED ONCE .ROUTE; Start 11/09/24 at 07:08; Stop 11/09/24 at 07:08; Status DC Acetaminophen 1,000 mg ONCE ONCE IVPB Last administered on 11/09/24at 07:47; Start 11/09/24 at 08:00; Stop 11/09/24 at 08:01; Status DC Acetaminophen 1,000 mg Q6H IVPB Last administered on 11/12/24at 02:11; Start 11/09/24 at 09:00; Stop 11/12/24 at 08:59; Status DC Lidocaine/ Prilocaine 1 appl ONCE ONCE TP Last administered on 11/09/24at 09:49; Start 11/09/24 at 09:30; Stop 11/09/24 at 09:33; Status DC Piperacillin Sod/ Tazobactam Sod 3.375 gm Q8H IV Last administered on 11/14/24at 01:23; Start 11/09/24 at 10:00; Stop 11/19/24 at 09:59 Piperacillin Sod/ Tazobactam Sod 3.375 gm Q8H IV; Start 11/09/24 at 10:00; Stop 11/09/24 at 09:38; Status DC Midodrine 10 mg TID PO Last administered on 11/10/24at 20:07; Start 11/09/24 at 21:00; Stop 11/11/24 at 06:58; Status DC Docusate Sodium 100 mg BID PO Last administered on 11/13/24at 20:25; Start 11/10/24 at 09:00; Stop 12/10/24 at 08:59 Calcium Chloride 1,000 mg STK-MED ONCE IVP; Start 11/03/24 at 12:28; Stop 11/10/24 at 12:31; Status DC Albumin Human 50 ml @ As Directed STK-MED ONCE IV; Start 11/03/24 at 12:28; Stop 11/10/24 at 12:31; Status DC Heparin Sodium (Porcine) 10,000 unit STK-MED ONCE IV; Start 11/03/24 at 12:28; Stop 11/10/24 at 12:31; Status DC Lidocaine HCl 5 mg STK-MED ONCE IVP; Start 11/03/24 at 12:28; Stop 11/10/24 at 12:31; Status DC Magnesium Sulfate 1 gm STK-MED ONCE IM; Start 11/03/24 at 12:28; Stop 11/10/24 at 12:31; Status DC Mannitol 12.5 gm STK-MED ONCE IV; Start 11/03/24 at 12:28; Stop 11/10/24 at 12:31; Status DC Norepinephrine Bitartrate 1 mg STK-MED ONCE IV; Start 11/03/24 at 12:28; Stop 11/10/24 at 12:31; Status DC Sodium Bicarbonate 50 meq STK-MED ONCE IVP; Start 11/03/24 at 12:28; Stop 11/10/24 at 12:31; Status DC Atorvastatin Calcium 40 mg HS PO Last administered on 11/13/24at 20:26; Start 11/10/24 at 21:00; Stop 12/10/24 at 20:59 Midodrine 15 mg TID PO Last administered on 11/13/24at 20:25; Start 11/11/24 at 09:00; Stop 12/11/24 at 08:59 Lidocaine HCl 20 ml STK-MED ONCE .ROUTE Last administered on 11/12/24at 10:06; Start 11/12/24 at 09:24; Stop 11/12/24 at 09:24; Status DC Norepinephrine Bitartrate 250 ml @ 0 mls/hr PROTOCOL IV Last administered on 11/13/24at 08:42; Start 11/12/24 at 18:30; Stop 12/12/24 at 18:29 Epinephrine HCl 10 mg/Sodium Chloride 250 ml @ 0 mls/hr PROTOCOL IV Last administered on 11/14/24at 03:13; Start 11/12/24 at 23:30; Stop 12/12/24 at 23:29 Heparin Sodium (Porcine) *calculation based on ACTUAL B... AD PRN IV; Start 11/13/24 at 09:30; Stop 12/13/24 at 09:29 Heparin Sodium/ Dextrose 250 ml @ 0 mls/hr Q6H IV Last administered on 11/14/24at 00:59; Start 11/13/24 at 09:30; Stop 12/13/24 at 09:29 Pharmacy Profile Note 1 each ONCE MISC; Start 11/13/24 at 09:00; Stop 11/13/24 at 08:57; Status DC Lidocaine HCl 20 ml STK-MED ONCE .ROUTE Last administered on 11/13/24at 10:24; Start 11/13/24 at 09:10; Stop 11/13/24 at 09:11; Status DC Lidocaine HCl ONCE ONCE INJ; Start 11/13/24 at 10:00; Stop 11/13/24 at 10:01; Status DC Folic Acid 1 mg DAILY PO; Start 11/14/24 at 09:00; Stop 12/14/24 at 08:59 Vitamin B Complex 1,000 mcg DAILY PO; Start 11/14/24 at 09:00; Stop 12/14/24 at 08:59 Iron Sucrose 100 mg ONCE ONCE IV; Start 11/13/24 at 13:30; Stop 11/13/24 at 13:24; Status DC Potassium Chloride 20 meq AD PRN PO Last administered on 11/14/24at 00:17; Start 11/14/24 at 00:30; Stop 12/14/24 at 00:29 Potassium Chloride 20 meq AD PRN PO; Start 11/14/24 at 00:30; Stop 12/14/24 at 00:29 TAINA ARZOLA MD Nov 14, 2024 07:49
[2024-11-14] MEDS: CYANOCOBALAMIN (VITAMIN B-12) 1,000 MCG TABLET PO SCH (09:30)
--- NOTE | 2024-11-14 09:58 | PN ---
SUBJECTIVE: The patient is postop day #7 from an Impella supported coronary artery bypass grafting. The patient has gotten up into a chair for the first time today. He did have a little bit of orthostatic hypotension, but tolerated it. He still remains on a low dose of Levophed drip and epinephrine drip. OBJECTIVE: VITAL SIGNS: On exam, he is afebrile. His vital signs are currently stable. HEENT: Normocephalic and atraumatic. He has nasal cannula oxygen prongs in his nose. He has a right cervical central venous sign. He has a left cervical Impella L5.5 left ventricular assist device. CHEST: His sternal wound is clean, dry, and intact. He remains with his chest tubes in place with serosanguinous drainage. HEART: S1, S2, and regular. LUNGS: Unlabored at rest, on nasal cannula oxygen. ABDOMEN: His abdomen reveals mild obesity with positive bowel sounds. GENITOURINARY: He has a Daniel catheter in his bladder. EXTREMITIES: He has a left upper extremity outline. He has SCDs and LYNDA stockings on his lower extremities. ASSESSMENT AND PLAN: * Status post Impella supported coronary artery bypass grafting. Weaned off the Levophed drip and then began weaning off of the Impella. We will increase the Impella to P7 in an attempt to get off the pressors first. Continue aspirin, Plavix, Lasix, and midodrine. Continue heparin drip per the Impella per acute coronary syndrome protocol. * Postoperative acute pulmonary insufficiency secondary to thoracic surgery and pulmonary edema. Continue supplement oxygen and maintain oxygen saturation greater than 90% on room air. * Hypercholesterolemia. Lipitor 40 mg p.o. at bedtime, low cholesterol, cardiac diet. * Deep venous thrombosis prophylaxis. I would still put SCDs on as the patient is not very mobile, but he should be protected with the heparin drip. Time spent 30 minutes. The patient is critically ill in the ICU. TID: [id number] RECEIPT: [id number]
--- NOTE | 2024-11-14 10:17 | HMCIMG ---
CHEST 1VW REASON: pp COMPARISON: Prior chest radiograph from 11/13/2024 is available. FINDINGS: Single view of the chest was obtained. There is mild cardiomegaly with median sternotomy. Patient is status post cardiac revascularization procedure. The support lines including the right internal jugular vascular sheath, left-sided cardiac support device in place. The lung gil are clear.. Mediastinum and bony thorax appear unremarkable. IMPRESSION: 1 mild cardiomegaly with median sternotomy with cardiac revascularization procedure 2. Support lines are in satisfactory position. 3. No evidence of airspace consolidation or pulmonary venous congestion
--- NOTE | 2024-11-14 12:09 | PN ---
[facility] PROGRESS NOTE Date Patient Seen: Nov 14, 2024 Time of Visit: 12:07 Supervising Physician: Dr Sincere Puri Primary Care Physician: Self Referral Outpatient Specialists: [ ] Inpatient Consults: PEG, Dr Jacobo, Dr Wellington , Dr Meza PROBLEM LIST: MvCAD s/p CABG x 3+1 w/ redo on 11/07/24 Impella 5 x 5 Postop acute anemia requiring transfusion ELSA Hyperlipidemia Sclerotic nodule on the non coronary cusp on 2D echo Normal ventricular diastolic function with LVEF of 60-65% on 2D echo 11/05/24 Former smoker Graves disease Obesity INTERVAL HISTORY: Patient seen and examined, all labs and imaging have been reviewed, patient is sitting comfortably in bed, tolerating his diet, reporting no pain or discomfort. He states he was a little weak overnight, the Impella was increased to P7 by the Cardiothoracic surgeon. He was started back on his epi and levo. Chest tube is 60/1 40/12 hours Urine output is 5.5 L in the past 24 hours, patient continues on p.o. Lasix. Good O2 saturations nasal cannula 2 L Plan: Following Cardiothoracic Surgeons postop protocol Neurovascular checks per protocol Weaning Impella per CTS Weaning pressors I&Os Cardiac diet Telemetry PT/OT Heme-Onc recommendations Total critical care time 52 minutes, patient remains critical requiring pressors, Impella support. Time excludes any educational time or procedures performed REVIEW OF SYSTEMS: 12 point ROS reviewed with patient. Pertinent positives mentioned above. Otherwise negative. PHYSICAL EXAM: GENERAL: alert, weak, awake oriented x 3 HEENT: EOMI, Sclera non icteric, moist mucosa NECK: Supple, no JVD, trachea midline right IJ. Subclavian Impella 5.5 LUNGS: Rhonchi to right lower lobes. No wheezes HEART: Regular rate and rhythm. Normal S1 and S2, without murmurs mid incision line tenderness. Dressing clean dry and intact. ABD: Abdomen soft, nontender. Bowel sounds present EXT: No clubbing cyanosis or edema. Left femoral sheath. NEURO: Alert and oriented to person, follows commands Vital Signs (last 8hr) Date Time Temp Pulse Resp B/P (MAP) Pulse Ox O2 Delivery O2 Flow Rate FiO2 11/14/24 11:50 85 22 11/14/24 11:50 85 22 N/Cannula Oximizer Hi LPM 2.0 28 11/14/24 11:00 81 27 76/51 (59) 95 21 100/63 (75) 11/14/24 10:45 81 17 86/53 (64) 95 11/14/24 10:30 84 30 82/54 (63) 95 11/14/24 10:15 84 23 90/56 (67) 96 11/14/24 10:00 85 28 80/53 (62) 95 95/40 (58) 11/14/24 09:45 83 28 79/52 (61) 97 11/14/24 09:30 82 24 81/54 (63) 96 11/14/24 09:15 87 28 83/54 (64) 95 11/14/24 09:00 83 23 80/53 (62) 96 98/71 (80) 11/14/24 08:45 83 26 75/50 (58) 96 11/14/24 08:35 96 Nasal Cannula* 2 N/A N/C Oxymizer Hi LPM* 11/14/24 08:31 98.6 11/14/24 08:30 85 15 90/60 (70) 97 103/64 (77) 11/14/24 08:15 88 22 85/63 (70) 97 11/14/24 08:00 89 22 97/64 (75) 97 21 11/14/24 07:45 93 16 96/64 (75) 96 11/14/24 07:30 86 29 95/63 (74) 98 11/14/24 07:15 84 24 90/61 (71) 98 11/14/24 07:00 89 14 96/64 (75) 97 21 11/14/24 06:52 88 22 11/14/24 06:51 89 22 N/Cannula Oximizer Hi LPM 2.0 28 11/14/24 06:45 85 29 88/48 (61) 97 11/14/24 06:30 90 15 74/41 (52) 97 11/14/24 06:15 93 15 89/56 (67) 97 11/14/24 06:00 81 25 86/38 (54) 97 97/56 (70) 11/14/24 05:45 81 19 92/42 (59) 96 11/14/24 05:30 78 21 87/41 (56) 96 92/55 (67) 11/14/24 05:15 79 27 85/39 (54) 96 11/14/24 05:00 80 17 93/42 (59) 96 97/58 (71) 11/14/24 04:45 77 25 92/41 (58) 97 11/14/24 04:30 76 27 87/39 (55) 96 95/53 (67) 11/14/24 04:15 75 25 92/42 (59) 97 11/14/24 04:08 98.6 LABS: Hematology Labs: Test 11/14/24 05:12 Range/Units White Blood Count 8.7 4.8-10.8 K/uL Red Blood Count 2.76 L 4.50-6.20 MIL/uL Hemoglobin 8.8 L 14.0-18.0 g/dL Hematocrit 27.1 L 42-54 % Mean Corpuscular Volume 98.2 79-99 fL Mean Corpuscular Hemoglobin 31.9 27.0-33.0 pg Mean Corpuscular Hemoglobin Concent 32.5 32.0-36.0 g/dL Red Cell Distribution Width 13.3 11.0-15.5 % Platelet Count 199 # 130-400 K/uL Mean Platelet Volume 10.5 7.5-10.5 fL Immature Granulocyte % (Auto) 5.9 H 0-1 % Neutrophils (%) (Auto) 64.4 40.0-77.0 % Lymphocytes (%) (Auto) 17.0 L 21.0-51.0 % Monocytes (%) (Auto) 10.6 3.0-13.0 % Eosinophils (%) (Auto) 1.2 0.0-8.0 % Basophils (%) (Auto) 0.9 0.0-5.0 % Neutrophils # (Auto) 5.7 1.8-7.7 K/uL Lymphocytes # (Auto) 1.5 1.0-4.8 K/uL Monocytes # (Auto) 1.0 0.1-1.0 K/uL Eosinophils # (Auto) 0.11 0.00-0.70 K/uL Basophils # (Auto) 0.08 0.00-0.20 K/uL Absolute Immature Granulocyte (auto 0.53 0-1 K/uL Nucleated Red Blood Cells 0.0 0.0-0.19 % Chemistry Labs: Test 11/14/24 05:12 Range/Units Sodium Level 140 136-145 mmol/L Potassium Level 3.6 3.5-5.1 mmol/L Chloride Level 107 101-111 mmol/L Carbon Dioxide Level 24 21-32 mmol/L Blood Urea Nitrogen 9 7-18 mg/dL Creatinine 0.9 0.5-1.3 mg/dL Glomerular Filtration Rate Calc 93 >90 mL/min Random Glucose 133 H 70-105 mg/dL Total Calcium 7.5 L 8.5-10.1 mg/dL Ionized Calcium 1.02 L 1.15-1.33 MMOL/L Phosphorus Level 2.7 2.5-4.9 mg/dL Magnesium Level 2.10 1.80-2.40 mg/dL Total Bilirubin 0.5 0.2-1.0 mg/dL Aspartate Amino Transf (AST/SGOT) 61 H 10-37 U/L Alanine Aminotransferase (ALT/SGPT) 44 12-78 U/L Alkaline Phosphatase 65 50-136 U/L Total Protein 5.6 L 6.0-8.3 g/dL Albumin 2.0 L 3.5-5.0 g/dL Coagulation Labs: Test 11/14/24 10:39 11/13/24 16:17 Range/Units Activated Partial Thromboplast Time 62.4 H 26.3-35.5 SEC Prothrombin Time 11.1 9.6-11.6 SEC Prothromb Time International Ratio 1.05 0.85-1.15 DIAGNOSTICS / RADIOLOGY RESULTS: [ ] PLAN NEURO: Minimize central acting medications as possible. Fall Precautions. Well lighted room through the day and minimize interruptions through the night to prevent acute delirium. PULMONARY: Supplemental 02 as needed Titrate Fio2 to keep Spo2 > or = 90% DuoNebs and CPT as needed IS hourly while awake for pulmonary hygiene Out of bed to chair as tolerated VAP Bundle Bipap 01/16 fio2 50% RT to titrate FiO2 as needed to maintain O2 above 92% CARDIOVASCULAR: Follow hemodynamics. Titrate vasopressor to keep MAP >65 or systolic blood pressure >95mmHg DIPS: Levophed Epi Lidocaine Insulin LINES: Central venous catheter right IJ Impella Chest tube A line Daniel catheter Left femoral sheath in place GI & NUTRITION: NPO for now Aspirations precautions Prokinetic agents and laxatives as needed KIDNEYS & ELECTROLYTES: Strict monitoring of intake and output Daily weights Avoid nephrotoxic agents Monitor electrolytes and replace as needed Goal urine output of 30mL/hr or 0.5mL/kg/hr Urine output 2 L in last 24 hours Chest tube drained 400 mL to lateral side Mediastinal drain 90 mL with I&O balance positive 230 mL ENDOCRINE: Maintain blood glucose between 100-180 at all times. Insulin sliding scale for blood glucose management INFECTIOUS DISEASE: Trend temperature. Nichols-culture if febrile. Micro: [ ] MRSA negative Antibiotics: [ ] Ancef HEMATOLOGY & COAGULATION: Monitor H&H. Keep Hgb > 7 Transfuse 1 unit of PRBC for Hgb < 7 Transfuse 1 pack of platelets of platelets < 20, 000 Watch for any signs and symptoms of bleeding SKIN: Pressure ulcer prevention per facility protocol Rehab: PT/OT Prophylaxis: GI: [ Protonix 40 mg IV b.i.d.] DVT: [Al hose per CV ] Code Status: Full Resuscitation Disposition: [ ICU] Case was discussed and seen with my supervising physician. The above plan was formulated and agreed upon. SNOW MATAMOROS Nov 14, 2024 12:09
--- NOTE | 2024-11-14 12:33 | PN ---
[facility] CARDIOLOGY PROGRESS NOTE Date Patient Seen: Nov 14, 2024 Time of Visit: 12:06 Interval History: This is a 68-year-old male with a past medical history of hyperlipidemia, CAD s/p PTCA to unknown vessel approximately 30 years ago, ex- smoker of 1 PPD quit 2 months ago and Graves disease who presented to the ED with complaints of chest pain suggestive of unstable angina. He ruled out for any acute myocardial ischemia with negative high sensitivity cardiac troponins. He underwent further assessment with a coronary CT angiogram on 11/05/2024 demonstrating a CAD RADs score of 4B with mixed calcified and noncalcified plaque in the left main with 50% stenosis, 80-90% stenosis in the proximal LAD and 80-90% stenosis in mid left circumflex. He underwent a cardiac catheterization 11/06/2024 demonstrating critical left main (80-90%) stenosis and ostial RCA stenosis. The patient underwent coronary artery bypass grafting, off pump for initial graft failure then Impella supported coronary artery bypass ultimately with a CHILD to the LAD, saphenous vein graft to the OM2 and saphenous vein graft to the RCA and saphenous vein graft to the LAD on 11/07/2024. He continues on Impella today at P7 and epinephrine IV. Continues on management per Dr. Bettencourt. He is up in the chair and appears comfortable today. No complicating arrhythmias thus far. Physical Examination: GENERAL: No acute distress. HEAD: Normal with no signs of head trauma. EYES: PERRLA, EOMI, conjunctiva and sclera normal. NECK: Supple without JVD. There is no tenderness, lymphadenopathy, or masses. No thyromegaly. Normal carotid upstrokes without bruits. LUNGS: Diminished breath sounds at the bases bilaterally. HEART: Normal rate and rhythm. Normal S1 and S2 with Impella augmentation noted. Mediastinal and pleural chest tubes in place VASC: Peripheral pulses +1 bilaterally. Impella to the left subclavian area with dressing dry and intact EXT: No clubbing, cyanosis or edema. NEURO: Awake, alert, and oriented x3. No focal neurological deficits noted. Laboratory: Hematology Labs: Test 11/14/24 05:12 Range/Units White Blood Count 8.7 4.8-10.8 K/uL Red Blood Count 2.76 L 4.50-6.20 MIL/uL Hemoglobin 8.8 L 14.0-18.0 g/dL Hematocrit 27.1 L 42-54 % Mean Corpuscular Volume 98.2 79-99 fL Mean Corpuscular Hemoglobin 31.9 27.0-33.0 pg Mean Corpuscular Hemoglobin Concent 32.5 32.0-36.0 g/dL Red Cell Distribution Width 13.3 11.0-15.5 % Platelet Count 199 # 130-400 K/uL Mean Platelet Volume 10.5 7.5-10.5 fL Immature Granulocyte % (Auto) 5.9 H 0-1 % Neutrophils (%) (Auto) 64.4 40.0-77.0 % Lymphocytes (%) (Auto) 17.0 L 21.0-51.0 % Monocytes (%) (Auto) 10.6 3.0-13.0 % Eosinophils (%) (Auto) 1.2 0.0-8.0 % Basophils (%) (Auto) 0.9 0.0-5.0 % Neutrophils # (Auto) 5.7 1.8-7.7 K/uL Lymphocytes # (Auto) 1.5 1.0-4.8 K/uL Monocytes # (Auto) 1.0 0.1-1.0 K/uL Eosinophils # (Auto) 0.11 0.00-0.70 K/uL Basophils # (Auto) 0.08 0.00-0.20 K/uL Absolute Immature Granulocyte (auto 0.53 0-1 K/uL Nucleated Red Blood Cells 0.0 0.0-0.19 % Chemistry Labs: Test 11/14/24 05:12 Range/Units Sodium Level 140 136-145 mmol/L Potassium Level 3.6 3.5-5.1 mmol/L Chloride Level 107 101-111 mmol/L Carbon Dioxide Level 24 21-32 mmol/L Blood Urea Nitrogen 9 7-18 mg/dL Creatinine 0.9 0.5-1.3 mg/dL Glomerular Filtration Rate Calc 93 >90 mL/min Random Glucose 133 H 70-105 mg/dL Total Calcium 7.5 L 8.5-10.1 mg/dL Ionized Calcium 1.02 L 1.15-1.33 MMOL/L Phosphorus Level 2.7 2.5-4.9 mg/dL Magnesium Level 2.10 1.80-2.40 mg/dL Total Bilirubin 0.5 0.2-1.0 mg/dL Aspartate Amino Transf (AST/SGOT) 61 H 10-37 U/L Alanine Aminotransferase (ALT/SGPT) 44 12-78 U/L Alkaline Phosphatase 65 50-136 U/L Total Protein 5.6 L 6.0-8.3 g/dL Albumin 2.0 L 3.5-5.0 g/dL Coagulation Labs: Test 11/14/24 10:39 11/13/24 16:17 Range/Units Activated Partial Thromboplast Time 62.4 H 26.3-35.5 SEC Prothrombin Time 11.1 9.6-11.6 SEC Prothromb Time International Ratio 1.05 0.85-1.15 Diagnostics / Radiology: 2D echocardiogram 11/04/2024: Conclusion The left atrium size is normal. The right ventricular systolic function is normal. Normal TAPSE Mild concentric left ventricular hypertrophy. GLS 16.0% There is normal LV segmental wall motion. LVEF is 60-65%. The left ventricular diastolic function is normal. Aortic valve is trileaflet, mildly sclerotic, and opens well. Sclerotic nodule on the non-coronary cusp. There is no mobile or oscillating aortic valvular vegetation. There is no pericardial effusion. Follow-up limited 2D echocardiogram 11/12/2024: Conclusion Limited echo for Impella placement. LVEF is 40-45%. There is global hypokinesis of the left ventricle. Impella device measuring 4.9cm into LV. The pericardium appears normal. Impression and Plan: Unstable angina pectoris Abnormal CT coronary angiogram 11/05/2024 demonstrating a CAD-RADs score of 4B mixed calcified and noncalcified plaque in the left main with 50% stenosis, 80- 90% stenosis in the proximal LAD and 80-90% stenosis in mid left circumflex Critical left main and ostial RCA stenosis by cardiac catheterization 11/06/2024: -off pump coronary artery bypass with graft failure and subsequent Impella supported coronary artery bypass graft with CHILD to the LAD, saphenous vein graft to the OM2 and saphenous vein graft to the RCA and saphenous vein graft to the LAD on 11/07/[address] Meza: -status post insertion of Impella 5.5 device 11/07/2024: -continues on IV epinephrine support, Impella increased to P7 today -continue management per Cardiothoracic surgery -on furosemide, clopidogrel and statin therapy Mild ischemic cardiomyopathy with an LVEF of 40-45% by 2D echocardiogram 11/12/2024: -continue plans for guideline directed medical therapy once off pressor support Hyperlipidemia: -continue statin therapy with a atorvastatin 40 mg p.o. q.h.s. History of 30 year 1 pack per day tobacco use, quit 2 months ago Graves disease on supplements with levothyroxine Carotid artery disease with carotid Doppler 11/05/2024 demonstrating Mild intimal thickening in the bilateral carotid arteries and their branches. Bilateral ICA/CCA ratio is more than 4.0 suggesting more than 70% stenosis. PHYSICIAN ATTESTATION OF PHYSICIAN SOFTLINES SUPERVISOR DOCUMENTATION: I attest that I was physically present for the lawson portions of the service and evaluated the patient with the Physician Program Research Specialist, and I reviewed and discussed the case with the Physician Program Research Specialist and made modifications to the Physician Program Research Specialist's findings and plans of care as documented above REEMA BURRELL Nov 14, 2024 12:33 MARTY GARCIA MD Nov 14, 2024 15:38
--- NOTE | 2024-11-14 13:43 | PN ---
[facility] PROGRESS NOTE Date of Service: Nov 14, 2024 Time of Service: 13:30 SUBJECTIVE: Mr. Valadez a 68-year-old male that was seen and examined today on 11/03/2024. Patient reports that he came to the emergency department with a chief complaint of chest pain. Onset was two or three years ago. He had similar repeated episodes months back which resolved on its own. Today's episode began at 11:00 a.m. Location is midsternal. Duration is on and off. Character is described as "neck someone is pushing a knuckle into the center of my chest. The chest pain did not radiate to shoulder, neck or jaw. "There was no alleviating factors. There was no aggravating factors. Patient reports that symptoms seemingly resolve on their own. He denies nausea, vomiting, fever and any other associated symptoms. Patient denies any associated shortness of breath. Patient has a past medical history of hyperlipidemia and Graves disease. He has been taking atorvastatin and Synthroid as his home medications. Today in the emergency department WBC 5.8, hemoglobin 12.9 platelets 197. His chemistries were within normal limits sodium 140, potassium 4.2, blood urea nitrogen 15 and creatinine 1.0. His electrocardiogram showed normal sinus rhythm. Patient will be admitted for further evaluation and related recommendations in Med-Surg. 11/04/24 Patient was evaluated at the bedside in ED-09. He reports that he is having chest pain that comes and goes. The patient reports having 2 episodes of chest pain in the last hour. He denies associated symptoms such as shortness of breath, palpitation, diaphoresis, dizziness, nausea or syncope. He does however complain of muscle pain in his lower limbs described as a dull aching discomfort that begins in the hip region that is worsened with movement. The patient complains of tingling and numbness in his feet bilaterally. No fever, chills or recent infection reported. Appetite and oral intake are normal. No other acute complaints at this time. On physical exam, a systolic murmur was auscultated over the aortic area. Bilateral carotid bruits are present. Lower extremities are cool to the touch with diminished pedal pulses. Patient reports bilateral leg muscle pain with exertion (suggestive of claudication), and chronic numbness and tingling in the feet. Patient reports recently quitting smoking tobacco for 2 months. He had a 1 pack a day smoking history since 1968. The [facility] and denies following with a chef de froid. The patient says his chest pain has been ongoing for the past 3 years, and that it gets worse with exertion and at rest. 11/05/24 Patient was evaluated at the bedside room 231. He was hemodynamically stable. Hi symptoms has improved significantly. He doesn't complain of chest pain, shortness of breath and any other associated symptoms. Echocardiogram was done which revealed aortic valve: trileaflet, mildly sclerotic, and opens well. Carotid artery ultrasound showed Bilateral ICA/CCA ratio more than 4.0 suggesting more than 70% stenosis. 11/06/24 Patient was evaluated at the bedside room 231. He was hemodynamically stable. Hi symptoms has improved significantly. He doesn't complain of chest pain, shortness of breath and any other associated symptoms. In coronary CT angiography there is mixed calcified and noncalcified plaque in the proximal LAD with 80-90% stenosis. Left circumflex coronary artery: Normal caliber, nondominant and gives rise to a large OM branch. There is mixed calcified and noncalcified plaque in the mid LCx with 80-90% stenosis. CAD-RAD of 4B. Left heart catheterization with selective right and left coronary angiography was performed which showed critical left main disease. 11/07/24 Patient was evaluated at the bedside room 231. He was hemodynamically stable. He doesn't complain of chest pain, shortness of breath and any other associated symptoms. He complaints of headache 8/10 of intensity after the administration of Nitroglycerin. Cardiac catheterization demonstrated a very tight left main lesion and the patient is referred for surgical revascularization. As per Dr Meza: Surgery is planned for today. 11/08/24: Patient was seen and evaluated this morning at bedside. The patient is POD 1 s/p CABG. Patient is currently being managed in the ICU. The patients most recent ABG shows a pH of 7.43, ABG PCO2 47, ABG PO2 77.9, ABG HCO3 30.8. Recent ABG shows improving lactic acid, from 8 to 3.85. The patients chemistry reveals a sodium level 157, potassium level 3.4, creatinine 1.9, BUN 19, GFR 38, phosphorous 2.2. Liver enzymes are trending up, with an ALT level at 325 and an AST level at 869. The patients home medication of Synthroid has been restarted. Chest x-ray ordered today, results pending. We will continue to follow recommendations from critical care team, and cardiology. 11/09/2024: Patient is seen and evaluated in the room 213. The patient is POD 2 s/p CABG. Patient is currently being managed in the ICU. He is complaining of pain. His vitals are in the normal range. His Hb is 11.1, WBC is 19.1, Plt is 115, sodium is 154, chloride is 113, glucose is 122. His recent ABG shows that pH is 7.472, pO2 is 80.1, bicarb is 30.4, Hb is 11.4, lactic acid is 1.63. His chest X-ray on 11/08 showed improved aeration within the left perihilar and left basilar regions. As per nurse he is having intervention confusion, stopped lidocaine and they also weaning on pressors norepinephrine and epinephrine. The drain output from left anterior chest is 20ml, mediastinal lateral is 160ml, mediastinal mediastinal is 300ml, right anterior chest is 160 ml. We will continue to follow recommendations from critical care team, and cardiology. 11/10/2024: Patient was seen and evaluated this morning at bedside. The patient is POD 3 s/p CABG. Patient is currently being managed in the ICU. He is not having any symptoms today. His vitals are in the normal range. His labs are normal except for Hb is 10.1, WBC is 14.7, plt is 85, sodium is 147, AST is 156, ALT is 95, APTT is 25.5. ABG shows that his pH is 7.4, lactate is 1.22, bicarb is 31. The drain output from left anterior chest is 170 ml, mediastinal mediastinal is 130ml. We will continue to follow recommendations from critical care team, and cardiology. 11/11/2024: Patient was seen and evaluated this morning at bedside. The patient is POD 4 s/p CABG. He is not having any symptoms today. His vitals are in the normal range. His labs are normal except for hemoglobin is 9.7, WBC is 11.7, platelet is 106, glucose is 107, AST is 87, ALT is 62. ABG shows pH is 7.468, lactic acid is 1.03. We will continue to follow recommendations from critical care team, and cardiology. 11/12/2024: Patient was seen and evaluated in the room 218. The patient is POD 5 s/p CABG. He is having dizziness and ache in the left shoulder. His vitals are in the normal range. His labs are normal except for hemoglobin 9.6, platelets is 94, AST 75. ABG shows pH 7.487, lactic acid 1.2. Currently he is not on any pressors. Cardiovascular surgery tried to wean Impella. They decreased impella setting to P4 but his blood pressure is low so they went back to P5. Cardiovascular surgery also increased his midodrine dose to 15mg. His chest X- ray showed mild pulmonary vascular congestion. He had a bowel movement and good urine output. He is using incentive spirometry well. We will continue to follow recommendations from the critical Care team and Cardiology. 11/13/2024: Patient was seen and evaluated in the room 218. The patient is POD 6 s/p CABG. He is having dizziness and generalized ache. His vitals are in the normal range. His labs are normal except for Hb is 8.9, calcium is 7.4, glucose is 140. His chest x-ray showed that mild borderline cardiomegaly with median sternotomy with cardiac and aspiration procedure, support lines in satisfactory position, no evidence of airspace consolidation or pulmonary venous congestion. He is restarted on norepinephrine and epinephrine drip and impella at P5 as he is hypotensive and has bradycardia. The nurse told me that she will consult anesthesia for changing the arterial line as his line is not working. He is on heparin drip and off of lovenox. The drain output from left anterior chest is 260 ml, mediastinal mediastinal is 60ml. Hematology was consulted as he is in a hypercoagulable state. 11/14/2024: Patient was seen and evaluated in the room 218. The patient is POD 7 s/p CABG. His vital signs are in the normal range except for blood pressure is 88/64. His labs are normal except for hemoglobin is 8.8, APTT is 62.4, glucose is 133, calcium is 7.5, AST is 61. Chest X-ray showed mild cardiomegaly with median sternotomy with cardiac revascularization procedure, support lines are in satisfactory position. His impella is increased to P7 as he is hypotensive and bradycardic. He is on epinephrine. The drain output from left anterior chest is 80ml and from mediastinal mediastinal is 20ml. Hematology saw the patient and they recommended to start folic acid, vitamin B12, ordered SPEP, UPEP, free light chains. They think that the patient might be having hemolytic anemia which could be the reason for his graft clotting after surgery. REVIEW OF SYSTEMS CONSTITUTIONAL: Pain in his left shoulder No fever, chills, or night sweats. NEUROLOGICAL: No headache no sensory and motor deficit. CARDIOVASCULAR: Dizziness Denies any exertional angina, dyspnea on exertion, palpitations. PULMONARY: Denies any shortness of breath, cough, phlegm/sputum, hemoptysis, pleuritic chest pain. GASTROINTESTINAL: Denies nausea, vomiting. Denies pain, tenderness around the abdomen. GENITOURINARY: Denies frequency, urgency, nocturia, hematuria or incontinence. PHYSICAL EXAM GENERAL APPEARANCE: The patient is alert, awake and oriented and bedbound. NEUROLOGICAL: No sensory and motor deficits. CHEST: left anterior chest , mediastinal mediastinal drains are present. Dressing is clean Normal chest expansion. LUNGS: Normal vesicular breath sound. Absence of any rales, rhonchi or any wheezing. CARDIOVASCULAR: Systolic murmur heard over aortic area. Bilateral carotid bruits heard. No JVD. ABDOMEN: Soft nontender, and nondistended. There is no rebound, voluntary guarding, or rigidity. No abdominal bruit heard. GENITOURINARY: No suprapubic tenderness. No costovertebral angle tenderness. EXTREMITIES: Limbs are non-edematous. Vital Signs (last 8hr) Date Time Temp Pulse Resp B/P (MAP) Pulse Ox O2 Delivery O2 Flow Rate FiO2 11/14/24 12:30 83 22 88/64 (72) 95 11/14/24 12:30 96 Nasal Cannula* 2 N/A N/C Oxymizer Hi LPM* 11/14/24 12:15 83 29 91/65 (74) 95 11/14/24 12:13 98.4 11/14/24 12:00 79 21 88/64 (72) 96 21 95/69 (78) 11/14/24 11:50 85 22 11/14/24 11:50 85 22 N/Cannula Oximizer Hi LPM 2.0 28 11/14/24 11:45 84 25 93/66 (75) 96 11/14/24 11:30 79 101/66 (78) 96 11/14/24 11:15 76 15 92/57 (69) 97 11/14/24 11:00 81 27 76/51 (59) 95 21 100/63 (75) 11/14/24 10:45 81 17 86/53 (64) 95 11/14/24 10:30 84 30 82/54 (63) 95 11/14/24 10:15 84 23 90/56 (67) 96 11/14/24 10:00 85 28 80/53 (62) 95 95/40 (58) 11/14/24 09:45 83 28 79/52 (61) 97 11/14/24 09:30 82 24 81/54 (63) 96 11/14/24 09:15 87 28 83/54 (64) 95 11/14/24 09:00 83 23 80/53 (62) 96 98/71 (80) 11/14/24 08:45 83 26 75/50 (58) 96 11/14/24 08:35 96 Nasal Cannula* 2 N/A N/C Oxymizer Hi LPM* 11/14/24 08:31 98.6 11/14/24 08:30 85 15 90/60 (70) 97 103/64 (77) 11/14/24 08:15 88 22 85/63 (70) 97 11/14/24 08:00 89 22 97/64 (75) 97 21 11/14/24 07:45 93 16 96/64 (75) 96 11/14/24 07:30 86 29 95/63 (74) 98 11/14/24 07:15 84 24 90/61 (71) 98 11/14/24 07:00 89 14 96/64 (75) 97 21 11/14/24 06:52 88 22 11/14/24 06:51 89 22 N/Cannula Oximizer Hi LPM 2.0 28 11/14/24 06:45 85 29 88/48 (61) 97 11/14/24 06:30 90 15 74/41 (52) 97 11/14/24 06:15 93 15 89/56 (67) 97 11/14/24 06:00 81 25 86/38 (54) 97 97/56 (70) 11/14/24 05:45 81 19 92/42 (59) 96 LABS: Laboratory: Test 11/14/24 10:39 11/14/24 05:12 11/13/24 16:17 Range/Units Activated Partial Thromboplast Time 62.4 H 26.3-35.5 SEC White Blood Count 8.7 4.8-10.8 K/uL Red Blood Count 2.76 L 4.50-6.20 MIL/uL Hemoglobin 8.8 L 14.0-18.0 g/dL Hematocrit 27.1 L 42-54 % Mean Corpuscular Volume 98.2 79-99 fL Mean Corpuscular Hemoglobin 31.9 27.0-33.0 pg Mean Corpuscular Hemoglobin Concent 32.5 32.0-36.0 g/dL Red Cell Distribution Width 13.3 11.0-15.5 % Platelet Count 199 # 130-400 K/uL Mean Platelet Volume 10.5 7.5-10.5 fL Immature Granulocyte % (Auto) 5.9 H 0-1 % Neutrophils (%) (Auto) 64.4 40.0-77.0 % Lymphocytes (%) (Auto) 17.0 L 21.0-51.0 % Monocytes (%) (Auto) 10.6 3.0-13.0 % Eosinophils (%) (Auto) 1.2 0.0-8.0 % Basophils (%) (Auto) 0.9 0.0-5.0 % Neutrophils # (Auto) 5.7 1.8-7.7 K/uL Lymphocytes # (Auto) 1.5 1.0-4.8 K/uL Monocytes # (Auto) 1.0 0.1-1.0 K/uL Eosinophils # (Auto) 0.11 0.00-0.70 K/uL Basophils # (Auto) 0.08 0.00-0.20 K/uL Absolute Immature Granulocyte (auto 0.53 0-1 K/uL Nucleated Red Blood Cells 0.0 0.0-0.19 % Sodium Level 140 136-145 mmol/L Potassium Level 3.6 3.5-5.1 mmol/L Chloride Level 107 101-111 mmol/L Carbon Dioxide Level 24 21-32 mmol/L Blood Urea Nitrogen 9 7-18 mg/dL Creatinine 0.9 0.5-1.3 mg/dL Glomerular Filtration Rate Calc 93 >90 mL/min Random Glucose 133 H 70-105 mg/dL Total Calcium 7.5 L 8.5-10.1 mg/dL Ionized Calcium 1.02 L 1.15-1.33 MMOL/L Phosphorus Level 2.7 2.5-4.9 mg/dL Magnesium Level 2.10 1.80-2.40 mg/dL Total Bilirubin 0.5 0.2-1.0 mg/dL Aspartate Amino Transf (AST/SGOT) 61 H 10-37 U/L Alanine Aminotransferase (ALT/SGPT) 44 12-78 U/L Alkaline Phosphatase 65 50-136 U/L Total Protein 5.6 L 6.0-8.3 g/dL Albumin 2.0 L 3.5-5.0 g/dL Prothrombin Time 11.1 9.6-11.6 SEC Prothromb Time International Ratio 1.05 0.85-1.15 Current Medications Medications (Trade) Dose Ordered Sig/Brittany Route PRN Reason Start Time Stop Time Status Last Admin Dose Admin Acetaminophen (TYLenol 325MG TAB) 650 mg Q4H PRN PO Temp >38.3C(AFTER EXTUBATION) 11/07/24 14:00 12/07/24 13:59 Acetaminophen (TYLenol 325MG TAB) 650 mg Q6H PRN PO TEMPERATURE GREATER THAN 101.5 11/03/24 21:00 11/07/24 14:00 DC 11/06/24 23:00 650 MG Acetaminophen (TYLenol 325MG TAB) 650 mg Q6H PRN PO MILD PAIN (1-3) 11/07/24 14:00 12/07/24 13:59 Acetaminophen (TYLenol 650MG SUPPOSITORY) 650 mg Q4H PRN RC Temp >38.3C WHILE INTUBATED 11/07/24 14:00 12/07/24 13:59 Acetaminophen (acetaMINOPHEN) 1,000 mg Q6H IVPB 11/09/24 09:00 11/12/24 08:59 DC 11/12/24 02:11 1,000 MG Acetaminophen (acetaMINOPHEN) 1,000 mg Q6H6 IV 11/07/24 18:00 11/08/24 17:59 DC 11/08/24 18:08 1,000 MG Albumin Human 250 ml @ 0 mls/hr AD PRN IV IF HEMODYNAMICALLY UNSTABLE 11/07/24 14:00 11/08/24 09:57 DC 11/08/24 09:57 125 MLS/HR Aminocaproic Acid 56057 mg/Sodium Chloride 310 ml @ 25 mls/hr AD IV 11/07/24 14:00 11/08/24 02:23 DC Aminocaproic Acid 54613 mg/Sodium Chloride 480 ml @ 0 mls/hr AD PRN IV BLEEDING CONTROL 11/07/24 11:00 11/07/24 14:03 DC Aspirin (Aspirin 81mg Ec Tab) 81 mg DAILY PO 11/04/24 09:00 12/04/24 08:59 11/14/24 09:30 81 MG Atorvastatin Calcium (LIPItor 40MG) 40 mg HS PO 11/03/24 21:00 11/03/24 20:40 DC Atorvastatin Calcium (LIPItor 40MG) 40 mg HS PO 11/03/24 21:00 11/09/24 07:45 DC 11/07/24 20:15 40 MG Atorvastatin Calcium (LIPItor 40MG) 40 mg HS PO 11/10/24 21:00 12/10/24 20:59 11/13/24 20:26 40 MG Calcium Gluconate (Calcium Gluc 1gm Vial) 1 gm AD PRN IV HYPOCALCEMIA 11/08/24 09:00 11/09/24 07:45 DC 11/08/24 16:36 1 GM Calcium Gluconate 1 gm/Sodium Chloride 60 ml @ 200 mls/hr AD PRN IV HYPOCALCEMIA 11/07/24 14:00 12/07/24 13:59 11/14/24 10:36 200 MLS/HR Cefazolin Sodium (Ancef) 2 gm ONCALL IVPB 11/06/24 22:00 11/07/24 14:00 DC Cefazolin Sodium (Ancef) 2 gm Q8H IVPB 11/07/24 19:00 11/08/24 11:01 DC 11/08/24 11:15 2 GM Clopidogrel Bisulfate (plaVIX 75MG) 75 mg DAILY PO 11/08/24 14:00 12/08/24 13:59 11/14/24 09:30 75 MG Dexmedetomidine/ Sodium Chloride (PRECEdex 400MCG/ 100ML-NS) 400 mcg PROTOCOL IV 11/07/24 14:00 12/07/24 13:59 Dextrose (D50w) 50 ml AD PRN IV HYPOGLYCEMIA PROTOCOL 11/07/24 14:00 12/07/24 13:59 Dextrose/Sodium Bicarbonate 1,025 ml @ 10 mls/hr Q24H IV 11/07/24 19:30 12/07/24 19:29 11/11/24 16:08 10 MLS/HR Docusate Sodium (COLace 100MG CAP) 100 mg BID PO 11/07/24 21:00 11/08/24 10:11 DC 11/07/24 20:15 100 MG Docusate Sodium (COLace 100MG CAP) 100 mg BID PO 11/10/24 09:00 12/10/24 08:59 11/14/24 09:29 100 MG Docusate Sodium (COLace LIQUID 100MG/10ML) 100 mg BID NG 11/08/24 10:30 11/09/24 21:53 DC 11/09/24 20:47 100 MG Enoxaparin Sodium (Lovenox) 30 mg DAILY SQ 11/10/24 09:00 11/13/24 08:38 DC 11/12/24 09:03 30 MG Enoxaparin Sodium (Lovenox) 40 mg DAILY SQ 11/04/24 09:00 11/07/24 13:38 DC 11/05/24 09:06 40 MG Epinephrine HCl 10 mg/Sodium Chloride 250 ml @ 13.948 mls/ hr AD PRN IV POST-OP CARDIOVASCULAR ORDERS 11/07/24 14:00 11/12/24 13:59 DC 11/09/24 19:48 7 MLS/HR Epinephrine HCl 10 mg/Sodium Chloride 250 ml @ 0 mls/hr AD PRN IV TITRATE 11/07/24 11:00 11/07/24 14:02 DC Epinephrine HCl 10 mg/Sodium Chloride 250 ml @ 0 mls/hr PROTOCOL IV 11/12/24 23:30 12/12/24 23:29 11/14/24 03:13 0 MLS/HR Famotidine (Pepcid 20mg Vial) 20 mg BID IV 11/07/24 21:00 11/08/24 08:59 DC 11/08/24 08:11 20 MG Famotidine (Pepcid 20mg Tab) 20 mg DAILY PO 11/04/24 09:00 11/07/24 13:38 DC 11/05/24 09:06 20 MG Folic Acid (FOLic ACID 1 MG TABLET) 1 mg DAILY PO 11/14/24 09:00 12/14/24 08:59 11/14/24 09:31 1 MG Furosemide (LASix 20MG TAB) 20 mg Q12H PO 11/09/24 09:00 12/09/24 08:59 11/14/24 09:31 20 MG Furosemide (LASix 20MG VIAL) 20 mg Q12H IV 11/08/24 09:00 11/09/24 08:59 DC 11/08/24 20:23 20 MG Glucagon (Glucagon 1mg Kit) 1 mg AD PRN IM HYPOGLYCEMIA PROTOCOL 11/07/24 14:00 12/07/24 13:59 Heparin Sodium (Porcine) (HEParin 5,000 UNIT VIAL) *calculation based on ACTUAL B... AD PRN IV HEPARIN PROTOCOL 11/13/24 09:30 12/13/24 09:29 Heparin Sodium/ Dextrose 250 ml @ 0 mls/hr Q6H IV 11/13/24 09:30 12/13/24 09:29 11/14/24 00:59 0 MLS/HR Hydralazine HCl (APRESOLine 20MG INJ) 10 mg Q6H PRN IV For:SBP above 160;DBP above 90 11/03/24 21:00 11/07/24 13:38 DC Insulin Human Regular 100 unit/ Sodium Chloride 100 ml @ 0 mls/hr AD IV 11/07/24 14:00 11/09/24 13:59 DC 11/08/24 12:30 4 MLS/HR Ipratropium [place] (AtrovENT UD) 0.5 MG [id number] IH 11/08/24 12:00 12/08/24 11:59 11/14/24 11:49 0.5 MG Lactulose (Constulose 20gm/ 30ml Udcup) 20 gm BID PRN PO CONSTIPATION 11/03/24 21:00 11/07/24 14:00 DC Lactulose (Constulose 20gm/ 30ml Udcup) 20 gm BID PRN PO CONSTIPATION 11/07/24 14:00 12/07/24 13:59 11/11/24 16:43 20 GM Levothyroxine Sodium (SYNTHroid 125MCG TAB) 125 mcg SYN PO 11/09/24 06:30 12/09/24 06:29 11/14/24 05:34 125 MCG Lidocaine HCl/ Dextrose 250 ml @ 0 mls/hr PROTOCOL PRN IV OTHER [SEE ORDER COMMENTS] 11/08/24 21:00 11/09/24 08:37 DC 11/08/24 21:15 7.5 MLS/HR Magnesium Hydroxide (Milk Of Magnesium 30ml) 30 ml DAILY PRN PO CONSTIPATION 11/07/24 14:00 12/07/24 13:59 Magnesium Sulfate 50 ml @ 12.5 mls/hr AD PRN IV MAG LEVEL LESS THAN 2.0 11/07/24 14:00 12/07/24 13:59 11/09/24 05:59 12.5 MLS/HR Metoprolol Tartrate (loprESSOR) 12.5 mg BID PO 11/09/24 09:00 11/11/24 09:39 DC Metoprolol Tartrate (loprESSOR) 50 mg BID PO 11/04/24 21:00 11/07/24 13:38 DC 11/06/24 20:38 50 MG Midodrine (PROAMatine 5 MG TABLET) 10 mg TID PO 11/09/24 21:00 11/11/24 06:58 DC 11/10/24 20:07 10 MG Midodrine (PROAMatine 5 MG TABLET) 15 mg TID PO 11/11/24 09:00 12/11/24 08:59 11/14/24 09:30 15 MG Montelukast Sodium (SinguLAIR) 10 mg HS PO 11/08/24 21:00 12/08/24 20:59 11/13/24 20:26 10 MG Morphine Sulfate (morPHINE 2MG SYG) 0.5 mg Q2H PRN IV MODERATE PAIN (4-6) 11/07/24 14:00 11/08/24 13:59 DC Morphine Sulfate (morPHINE 2MG SYG) 1 mg Q2H PRN IV SEVERE PAIN (7-10) 11/07/24 14:00 11/08/24 13:59 DC Morphine Sulfate (morPHINE 4MG SYG) 2 mg Q4H PRN IVP SEVERE PAIN (7-10) 11/03/24 21:00 11/07/24 13:38 DC 11/04/24 15:49 2 MG Nitroglycerin (Nitroglycerin 1gm Oint) 0.5 inch Q8H TD 11/03/24 21:00 11/07/24 13:38 DC 11/07/24 05:46 0.5 INCH Nitroglycerin/ Dextrose 0 ml @ 0 mls/hr AD IV 11/07/24 14:00 11/10/24 13:59 DC Norepinephrine Bitartrate 250 ml @ 0 mls/hr AD PRN IV TITRATE 11/07/24 11:00 11/07/24 14:02 DC Norepinephrine Bitartrate 250 ml @ 0 mls/hr AD PRN IV POST-OP CARDIOVASCULAR ORDERS 11/07/24 14:00 11/12/24 13:59 DC 11/09/24 17:09 5.6 MLS/HR Norepinephrine Bitartrate 250 ml @ 0 mls/hr PROTOCOL IV 11/12/24 18:30 12/12/24 18:29 11/13/24 08:42 2 MLS/HR Ondansetron HCl (zoFRAN 4MG INJ) 4 mg Q6H PRN IV NAUSEA/VOMITING 11/03/24 21:00 11/07/24 14:00 DC Ondansetron HCl (zoFRAN 4MG INJ) 4 mg Q6H PRN IV NAUSEA/VOMITING 11/07/24 14:00 12/07/24 13:59 11/09/24 21:50 4 MG Pantoprazole Sodium (PROTonix 40MG INJ) 40 mg BID IVP 11/08/24 09:00 12/08/24 08:59 11/14/24 09:29 40 MG Pharmacy Profile Note (Pharmacy Communication) 1 each ONCE MISC 11/13/24 09:00 11/13/24 08:57 DC Piperacillin Sod/ Tazobactam Sod (Zosyn 3.375gm+NS 50ml) 3.375 gm Q8H IV 11/09/24 10:00 11/09/24 09:38 DC Piperacillin Sod/ Tazobactam Sod (Zosyn 3.375gm+NS 50ml) 3.375 gm Q8H IV 11/09/24 10:00 11/19/24 09:59 11/14/24 09:29 3.375 GM Polyethylene Glycol (MIRalax 3350 17 GM POWD.PACK) 17 gm DAILY PO 11/09/24 09:00 12/09/24 08:59 11/14/24 09:29 17 GM Potassium Phosphate 250 ml @ 42 mls/hr AD PRN IV LOW PHOS LEVEL 11/07/24 14:00 12/07/24 13:59 11/08/24 07:22 42 MLS/HR Potassium Chloride 100 ml @ 100 mls/hr AD PRN IV HYPOKALEMIA 11/07/24 14:00 12/07/24 13:59 11/13/24 17:02 100 MLS/HR Potassium Chloride (K-Dur/Klor-Con 20meq) 20 meq AD PRN PO POTASSIUM PROTOCOL 11/14/24 00:30 12/14/24 00:29 Potassium Chloride (KCl 10% Elixir 20meq/15ml) 20 meq AD PRN PO POTASSIUM PROTOCOL 11/14/24 00:30 12/14/24 00:29 11/14/24 00:17 20 MEQ Propofol 100 ml @ 0 mls/hr AD PRN IV SEDATION 11/07/24 14:00 11/11/24 13:59 DC Sodium Bicarbonate (Sodium Bicarb 50meq 50ml Vial) 50 meq AD PRN IV OTHER[SEE DOSING INSTRUCTIONS] 11/07/24 14:00 11/10/24 13:59 DC 11/08/24 00:54 50 MEQ Sodium Chloride 500 ml @ 0 mls/hr AD IV 11/07/24 14:00 12/07/24 13:59 11/10/24 00:41 3 MLS/HR Sodium Chloride 1,000 ml @ 10 mls/hr ONCE IV 11/07/24 14:00 11/08/24 13:59 DC 11/07/24 20:11 10 MLS/HR Sodium Chloride 1,000 ml @ 100 mls/hr Q10H IV 11/06/24 12:30 11/06/24 15:29 DC Sodium Chloride (NS Flush 10ml) 10 ml Q8H PRN IVP IV LINE FLUSH 11/07/24 14:00 12/07/24 13:59 Sucralfate (Carafate) 1 gm TID PO 11/08/24 21:00 12/08/24 20:59 11/14/24 09:31 1 GM Tramadol HCl (UltRAM) 25 mg Q6H PRN PO MODERATE PAIN (4-6) 11/07/24 14:00 11/09/24 08:37 DC Tramadol HCl (UltRAM) 50 mg Q6H PRN PO SEVERE PAIN (7-10) 11/07/24 14:00 11/09/24 08:37 DC 11/08/24 23:30 50 MG Vitamin B Complex (Vitamin B-12) 1,000 mcg DAILY IM 11/07/24 09:00 11/13/24 08:59 DC 11/12/24 09:03 1,000 MCG Vitamin B Complex (Vitamin B-12) 1,000 mcg DAILY PO 11/14/24 09:00 12/14/24 08:59 11/14/24 09:30 1,000 MCG DIAGNOSTICS / RADIOLOGY: [address] [address] [place] [address] IMAGING REPORT Signed PATIENT: CLARE VALADEZ MR#: [id number] : 1955 SEX: M AGE: 69 LOCATION: [facility] ORDER 2300 STATUS: ADM IN REPORT#: [id number] SERVICE 0600 REASON: pp ORDERING PHYSICIAN: SNOW MATAMOROS PROCEDURE: CXR1VW - CHEST 1VW CHEST 1VW REASON: pp COMPARISON: Prior chest radiograph from 11/13/2024 is available. FINDINGS: Single view of the chest was obtained. There is mild cardiomegaly with median sternotomy. Patient is status post cardiac revascularization procedure. The support lines including the right internal jugular vascular sheath, left-sided cardiac support device in place. The lung gil are clear.. Mediastinum and bony thorax appear unremarkable. IMPRESSION: 1 mild cardiomegaly with median sternotomy with cardiac revascularization procedure 2. Support lines are in satisfactory position. 3. No evidence of airspace consolidation or pulmonary venous congestion DICTATED BY: MARCO ANTONIO FUENTES MD DATE: 11/14/241012 ELECTRONICALLY SIGNED BY: MARCO ANTONIO FUENTES MD DATE: 11/14/241016 ASSESSMENT: Coronary artery disease, POA, s/p CABG 3v and redo sternotomy with redo of graft failure now s/p CABG with 4v Hyperlipidemia, POA Grave's disease, POA Peripheral artery disease, suspected Carotid artery stenosis PLAN: Coronary artery disease, POA s/p CABG 3v and redo sternotomy with redo of graft failure now s/p CABG with 4v * Administer aspirin 325 mg p.o. now and then continue aspirin 81 mg p.o. daily * Troponin every 6 hours, serial troponin levels are 9-9-12-11. * Supplemental oxygen as needed to maintain SpO2 greater than 94% * Monitor for recurrence of chest pain, arrhythmias, or hemodynamic changes * Electrocardiogram was done which is normal. * A 2D Echo has been ordered due to patients history of chest pain on exertion and rest. * A cardiology consult has been placed for evaluation of CAD in patient with exertional chest pain and vascular disease. 11/04/24 * Echocardiogram was done which revealed aortic valve: trileaflet, mildly sclerotic, and opens well. * Pending Coronary CTA reports. * Lipid panels has been ordered to assess Cardiovascular risks. Results unremarkable. * In coronary CT angiography there is mixed calcified and noncalcified plaque in the proximal LAD with 80-90% stenosis. Left circumflex coronary artery: Normal caliber, nondominant and gives rise to a large OM branch. There is mixed calcified and noncalcified plaque in the mid LCx with 80-90% stenosis. * CAD-RAD of 4B. * Left heart catheterization with selective right and left coronary angiography was performed which showed critical left main disease. Severe ostial RCA stenosis. 11/06/24 * He complaints of headache 8/10 of intensity after the administration of Nitroglycerin. Tylenol has been administered. Closely monitoring the patient. * Cardiac catheterization demonstrated a very tight left main lesion and the patient is referred for surgical revascularization. * Patient is POD 5 S/P CABG, patient is being managed in the ICU per protocol. * Recent ABG shows lactic acid is 1.21. * Norepinephrine, epinephrine drip were restarted as he is hypotensive and has bradycardia. * Currently he is on epinephrine drip * His impella setting is increased to P7 from P5 as he is hypotensive and bradycardic. * We will continue to following Cardiology and critical care recommendations. * He is on heparin drip and off lovenox. * Hematology saw the patient and they recommended to start folic acid, vitamin B12, ordered SPEP, UPEP, free light chains. They think that the patient might be having hemolytic anemia which could be the reason for his graft clotting after surgery. * Cardiology plan to wean him of the pressors than impella. Peripheral vascular disease, Suspected * Patient has history of exertional bilateral leg pain * Diminished peripheral pulses * A SERA has been ordered due to the patients complaint of bilateral lower extremity claudication, and numbness/tingling in bilateral lower extremities. * Clear aspirin 81 mg daily and statin 40mg * Encouraged supervised exercise therapy for claudication * Counseled on continued smoking cessation 11/04/24 Peripheral Neuropathy * Vitamin B12 has been ordered to rule out peripheral neuropathy.11/05/24 * Complained of numbness and tingling in his limbs. * Vitamin B12 level was measured which showed 173L. * Patient has been started on vitamin B12 supplement 1000 mcg for 6 days. Carotid artery stenosis * Presence of bilateral carotid bruit on exam, suspicion for significant stenosis * Carotid Duplex ultrasound has been done, awaiting reports * Risk factor modification: Smoking cessation, BP control, glycemic control. 11/04/24 * Carotid artery ultrasound showed Bilateral ICA/CCA ratio more than 4.0 suggesting more than 70% stenosis. 11/05/24 * Cardiology recommended CT/MR angiogram when stable from surgical standpoint Hyperlipidemia * Continue home statin therapy atorvastatin 40 mg * Reinforce low-cholesterol, heart healthy diet (limit saturated fats, increase fiber, fruits and vegetables) * Encouraged regular physical activity as tolerated * Monitor lipid panel * Outpatient follow up with PCP/Cardiology for long-term lipid management and cardiovascular risks reduction Supportive measures * Start patient on GI prophylaxis * DVT prophylaxis * Monitor morning labs CBC and BMP daily * He is on clear liquid diet Hypothyroidism * Continue home medication of Synthroid * TSH 1.33. ATTESTATION BY PHYSICIAN I have seen and examined the patient. I reviewed the documentation, medical decision making, and treatment plan as noted by the resident provider above. I agree with the findings and plan of care. Shawn Loera IV, MD, AKSHAY MD Nov 14, 2024 13:43
--- NOTE | 2024-11-14 22:17 | NUR ---
Transferred to room 124 Report given to SHARYN George all questions answered patient transferred via bed to room 124
[2024-11-15] VITALS (117 sets, daily range): BP systolic 71–133; BP diastolic 36–98; PULSE 66–85; RESP 11–35; TEMP 97.8–98.3; O2SAT 94–98
[2024-11-15 03:42] LABS: NUCLEATED RED BLOOD CELLS 0.0 % (0.0-0.19); PLATELET COUNT (AUTO) 208.0 K/uL (130-400); RED BLOOD CELL COUNT(AUTO) 2.87 MIL/uL (4.50-6.20); RED CELL DISTRIBUTION WIDTH 13.3 % (11.0-15.5); WHITE BLOOD COUNT (AUTO) 6.4 K/uL (4.8-10.8)
[2024-11-15 04:09] LABS: ASPARTATE AMINOTRANSFERASE 50.0 U/L (10-37); CREATININE 0.9 mg/dL (0.5-1.3); GLOMERULAR FILTR. RATE CALC 93.0 mL/min (>90); GLUCOSE,RANDOM 96.0 mg/dL (70-105); SODIUM SERUM 139.0 mmol/L (136-145); TOTAL PROTEIN, SERUM 5.7 g/dL (6.0-8.3); UREA NITROGEN, BLOOD 8.0 mg/dL (7-18)
[2024-11-15 04:53] LABS: ABG BASE EXCESS -0.2 mmol/L (-2.0-3.0); ABG HCO3 22.3 mmol/L (21.0-28.0); ABG OXYGEN SATURATION 93.6 % (94.0-98.0); ABG PCO2 29 mmHg (35-48); ABG PH 7.506 (7.350-7.450); CARBON MONOXIDE 0.2 % (0.5-1.5); DEVICE COMMENT MARISA RN, AL; PO2, ARTERIAL BG 68.0 mmHg (83.0-108.0); TEMPERATURE, CELSIUS BG 37.0 CELSIUS (35.5-37.0); VENT MODE, BG 2LNC (ROOM AIR)
--- NOTE | 2024-11-15 07:14 | HMCIMG ---
EXAM: CR Chest, 1 View. CLINICAL HISTORY: pp COMPARISON: None provided. FINDINGS: LUNGS: Mildly improved airspace opacity at the right lower lobe. PLEURAL SPACES: No evidence of pleural effusion or pneumothorax. MEDIASTINUM: Cardiac support device unchanged. Patient status post median sternotomy. Heart is mildly large. Patient's status post median sternotomy. BONES: No acute osseous abnormality. MISCELLANEOUS: Stable right internal jugular line. Left-sided chest tube. IMPRESSION: 1. Mildly improved right lower lobe airspace opacity. 2. Mild cardiomegaly. 3. Stable cardiac support device and median sternotomy. 4. Left-sided chest tube and right internal jugular line, unchanged. /John
[2024-11-15] MEDS: PoTASSium chloRIDE 20MEQ ER 20 MEQ ERTAB PO PRN (09:01)
--- NOTE | 2024-11-15 10:30 | NUR ---
MD Walls made aware that pt had another syncope episode, hypotensive, and diaphoretic post 2-5 minutes after sitting in cardiac chair. Patient was off pressors prior to transferring pt to chair. Re-stared epi drip. Patient on Impella P-7. approved for patient to have salt. Will continue to monitor.
[2024-11-15 10:35] LABS: ABG BASE EXCESS -3.1 mmol/L (-2.0-3.0); ABG HCO3 18.5 mmol/L (21.0-28.0); ABG OXYGEN SATURATION 93.5 % (94.0-98.0); ABG PCO2 24 mmHg (35-48); ABG PH 7.515 (7.350-7.450); CARBON MONOXIDE 0.3 % (0.5-1.5); PO2, ARTERIAL BG 68.1 mmHg (83.0-108.0); TEMPERATURE, CELSIUS BG 37.0 CELSIUS (35.5-37.0); VENT MODE, BG NC (ROOM AIR)
--- NOTE | 2024-11-15 11:11 | PN ---
[facility] CARDIOLOGY PROGRESS NOTE Date Patient Seen: Nov 15, 2024 Time of Visit: 11:04 Interval History: This is a 69-year-old male with a past medical history of hyperlipidemia, CAD s/p PTCA to unknown vessel approximately 30 years ago, ex- smoker of 1 PPD quit 2 months ago and Graves disease who presented to the ED with complaints of chest pain suggestive of unstable angina. He ruled out for any acute myocardial ischemia with negative high sensitivity cardiac troponins. He underwent further assessment with a coronary CT angiogram on 11/05/2024 demonstrating a CAD RADs score of 4B with mixed calcified and noncalcified plaque in the left main with 50% stenosis, 80-90% stenosis in the proximal LAD and 80-90% stenosis in mid left circumflex. He underwent a cardiac catheterization 11/06/2024 demonstrating critical left main (80-90%) stenosis and ostial RCA stenosis. The patient underwent coronary artery bypass grafting, off pump but for initial graft failure converted to Impella supported redo coronary artery bypass ultimately with a CHILD to the LAD, saphenous vein graft to the OM2 and saphenous vein graft to the RCA and saphenous vein graft to the LAD on 11/07/2024. He developed hypotension while off vasopressor support this morning and Impella was increased to P8 and to be restarted on epinephrine IV. Continues on management per Dr. Bettencourt. No complicating arrhythmias thus far. Physical Examination: GENERAL: No acute distress. HEAD: Normal with no signs of head trauma. EYES: PERRLA, EOMI, conjunctiva and sclera normal. NECK: Supple without JVD. There is no tenderness, lymphadenopathy, or masses. No thyromegaly. Normal carotid upstrokes without bruits. LUNGS: Diminished breath sounds at the bases bilaterally. HEART: Normal rate and rhythm. Normal S1 and S2 with Impella augmentation noted. Mediastinal and pleural chest tubes in place VASC: Peripheral pulses +1 bilaterally. Impella to the left subclavian area with dressing dry and intact EXT: No clubbing, cyanosis or edema. NEURO: Awake, alert, and oriented x3. No focal neurological deficits noted. Laboratory: Hematology Labs: Test 11/15/24 03:13 11/14/24 05:12 Range/Units White Blood Count 6.4 # 4.8-10.8 K/uL Red Blood Count 2.87 L 4.50-6.20 MIL/uL Hemoglobin 9.2 L 14.0-18.0 g/dL Hematocrit 28.0 L 42-54 % Mean Corpuscular Volume 97.6 79-99 fL Mean Corpuscular Hemoglobin 32.1 27.0-33.0 pg Mean Corpuscular Hemoglobin Concent 32.9 32.0-36.0 g/dL Red Cell Distribution Width 13.3 11.0-15.5 % Platelet Count 208 130-400 K/uL Mean Platelet Volume 10.5 7.5-10.5 fL Nucleated Red Blood Cells 0.0 0.0-0.19 % Immature Granulocyte % (Auto) 5.9 H 0-1 % Neutrophils (%) (Auto) 64.4 40.0-77.0 % Lymphocytes (%) (Auto) 17.0 L 21.0-51.0 % Monocytes (%) (Auto) 10.6 3.0-13.0 % Eosinophils (%) (Auto) 1.2 0.0-8.0 % Basophils (%) (Auto) 0.9 0.0-5.0 % Neutrophils # (Auto) 5.7 1.8-7.7 K/uL Lymphocytes # (Auto) 1.5 1.0-4.8 K/uL Monocytes # (Auto) 1.0 0.1-1.0 K/uL Eosinophils # (Auto) 0.11 0.00-0.70 K/uL Basophils # (Auto) 0.08 0.00-0.20 K/uL Absolute Immature Granulocyte (auto 0.53 0-1 K/uL Chemistry Labs: Test 11/15/24 10:31 11/15/24 03:13 11/14/24 05:12 Range/Units Whole Blood Glucose 120 H 70-110 MG/DL Sodium Level 139 136-145 mmol/L Potassium Level 3.5 3.5-5.1 mmol/L Chloride Level 106 101-111 mmol/L Carbon Dioxide Level 23 21-32 mmol/L Blood Urea Nitrogen 8 7-18 mg/dL Creatinine 0.9 0.5-1.3 mg/dL Glomerular Filtration Rate Calc 93 >90 mL/min Random Glucose 96 70-105 mg/dL Lactic Acid Level 1.2 0.8-2.5 mmol/L Total Calcium 7.9 L 8.5-10.1 mg/dL Total Bilirubin 0.4 0.2-1.0 mg/dL Aspartate Amino Transf (AST/SGOT) 50 H 10-37 U/L Alanine Aminotransferase (ALT/SGPT) 40 12-78 U/L Alkaline Phosphatase 59 50-136 U/L Total Protein 5.7 L 6.0-8.3 g/dL Albumin 2.0 L 3.5-5.0 g/dL Ionized Calcium 1.02 L 1.15-1.33 MMOL/L Phosphorus Level 2.7 2.5-4.9 mg/dL Magnesium Level 2.10 1.80-2.40 mg/dL Coagulation Labs: Test 11/15/24 09:09 11/13/24 16:17 Range/Units Activated Partial Thromboplast Time 58.7 H 26.3-35.5 SEC Prothrombin Time 11.1 9.6-11.6 SEC Prothromb Time International Ratio 1.05 0.85-1.15 Diagnostics / Radiology: 2D echocardiogram 11/04/2024: Conclusion The left atrium size is normal. The right ventricular systolic function is normal. Normal TAPSE Mild concentric left ventricular hypertrophy. GLS 16.0% There is normal LV segmental wall motion. LVEF is 60-65%. The left ventricular diastolic function is normal. Aortic valve is trileaflet, mildly sclerotic, and opens well. Sclerotic nodule on the non-coronary cusp. There is no mobile or oscillating aortic valvular vegetation. There is no pericardial effusion. Follow-up limited 2D echocardiogram 11/12/2024: Conclusion Limited echo for Impella placement. LVEF is 40-45%. There is global hypokinesis of the left ventricle. Impella device measuring 4.9cm into LV. The pericardium appears normal. Impression and Plan: Unstable angina pectoris Abnormal CT coronary angiogram 11/05/2024 demonstrating a CAD-RADs score of 4B mixed calcified and noncalcified plaque in the left main with 50% stenosis, 80- 90% stenosis in the proximal LAD and 80-90% stenosis in mid left circumflex Critical left main and ostial RCA stenosis by cardiac catheterization 11/06/2024: -off pump coronary artery bypass with graft failure and subsequent Impella supported coronary artery bypass graft with CHILD to the LAD, saphenous vein graft to the OM2 and saphenous vein graft to the RCA and saphenous vein graft to the LAD on 11/07/[address] Meza: -status post insertion of Impella 5.5 device 11/07/2024: -continues on IV epinephrine support, Impella increased to P8 today -continue management per Cardiothoracic surgery -on furosemide, clopidogrel and statin therapy Mild ischemic cardiomyopathy with an LVEF of 40-45% by 2D echocardiogram 025: -continue plans for guideline directed medical therapy once off pressor support Hyperlipidemia: -continue statin therapy with a atorvastatin 40 mg p.o. q.h.s. History of 30 year 1 pack per day tobacco use, quit 2 months ago Graves disease on supplements with levothyroxine Carotid artery disease with carotid Doppler 11/05/2024 demonstrating Mild intimal thickening in the bilateral carotid arteries and their branches. Bilateral ICA/CCA ratio is more than 4.0 suggesting more than 70% stenosis. PHYSICIAN ATTESTATION OF PHYSICIAN TUBE SIZER AND CUTTER OPERATOR DOCUMENTATION: I attest that I was physically present for the lawson portions of the service and evaluated the patient with the Physician Gate Cutter, and I reviewed and discussed the case with the Physician Gate Cutter and made modifications to the Physician Gate Cutter's findings and plans of care as documented above REEMA BURRELL Nov 15, 2024 11:11 MARTY GARCIA MD Nov 15, 2024 14:11
--- NOTE | 2024-11-15 11:38 | PN ---
[facility] PROGRESS NOTE Date Patient Seen: Nov 15, 2024 Time of Visit: 11:36 Supervising Physician: Dr Sincere Puri Primary Care Physician: Self Referral Outpatient Specialists: [ ] Inpatient Consults: PEG, Dr Jacobo, Dr Wellington , Dr Meza PROBLEM LIST: MvCAD s/p CABG x 3+1 w/ redo on 11/07/24 Impella 5 x 5 Postop acute anemia requiring transfusion ELSA Hyperlipidemia Sclerotic nodule on the non coronary cusp on 2D echo Normal ventricular diastolic function with LVEF of 60-65% on 2D echo 11/05/24 Former smoker Graves disease Obesity INTERVAL HISTORY: Patient seen and examined, all labs and imaging have been reviewed, chest x-ray reveals continued improvement. Urine at goal, decreasing chest tube output Patient continues to vagal when placed in the chair. We had to start him backup on epi. Continues with the Impella at P7 Good O2 saturations Lengthy discussion with patient and nursing at bedside. Patient updated to current treatment plan Plan: Following Cardiothoracic Surgeons postop protocol Neurovascular checks per protocol Weaning Impella per CTS Weaning pressors I&Os Cardiac diet Telemetry PT/OT Heme-Onc recommendations Total critical care time 48 minutes, patient remains critical requiring pressors, Impella support. Time excludes any educational time or procedures performed REVIEW OF SYSTEMS: 12 point ROS reviewed with patient. Pertinent positives mentioned above. Otherwise negative. PHYSICAL EXAM: GENERAL: alert, weak, awake oriented x 3 HEENT: EOMI, Sclera non icteric, moist mucosa NECK: Supple, no JVD, trachea midline right IJ. Subclavian Impella 5.5 LUNGS: Rhonchi to right lower lobes. No wheezes HEART: Regular rate and rhythm. Normal S1 and S2, without murmurs mid incision line tenderness. Dressing clean dry and intact. ABD: Abdomen soft, nontender. Bowel sounds present EXT: No clubbing cyanosis or edema. Left femoral sheath. NEURO: Alert and oriented to person, follows commands Vital Signs (last 8hr) Date Time Temp Pulse Resp B/P (MAP) Pulse Ox O2 Delivery O2 Flow Rate FiO2 11/15/24 09:10 75 20 104/73 (83) 96 28 127/98 (108) 11/15/24 09:00 77 16 105/72 (83) 96 28 107/38 (61) 11/15/24 08:40 76 18 104/74 (84) 94 28 107/79 (88) 11/15/24 08:30 96 Nasal Cannula* 2 N/A N/C Oxymizer Hi LPM* 11/15/24 08:25 75 23 102/73 (83) 93 28 101/70 (80) 11/15/24 08:00 71 22 103/70 (81) 95 28 97/64 (75) 11/15/24 07:11 70 24 92/69 (77) 91 28 104/71 (82) 11/15/24 07:00 76 22 90/69 (76) 97 28 11/15/24 06:48 70 19 11/15/24 06:47 80 17 N/Cannula Oximizer Hi LPM 2.0 28 11/15/24 06:45 67 17 89/64 (72) 95 107/69 (82) 11/15/24 06:30 72 16 81/59 (66) 95 94/66 (75) 11/15/24 06:15 74 23 82/62 (69) 95 92/53 (66) 11/15/24 06:00 73 24 80/58 (65) 97 28 114/70 (85) 11/15/24 05:45 68 17 83/60 (68) 96 122/56 (78) 11/15/24 05:30 70 18 71/51 (58) 96 99/65 (76) 11/15/24 05:15 73 24 82/57 (65) 96 95/66 (76) 11/15/24 05:00 72 21 93/67 (76) 95 28 111/75 (87) 11/15/24 04:45 73 24 92/65 (74) 95 116/65 (82) 11/15/24 04:30 72 23 97/69 (78) 96 101/66 (78) 11/15/24 04:15 74 19 101/73 (82) 97 11/15/24 04:00 94 Nasal Cannula* 2 N/A N/C Oxymizer Hi LPM* 11/15/24 04:00 97.9 74 23 90/68 (75) 95 28 102/75 (84) 11/15/24 03:45 72 25 95/69 (78) 95 98/70 (79) LABS: Hematology Labs: Test 11/15/24 03:13 11/14/24 05:12 Range/Units White Blood Count 6.4 # 4.8-10.8 K/uL Red Blood Count 2.87 L 4.50-6.20 MIL/uL Hemoglobin 9.2 L 14.0-18.0 g/dL Hematocrit 28.0 L 42-54 % Mean Corpuscular Volume 97.6 79-99 fL Mean Corpuscular Hemoglobin 32.1 27.0-33.0 pg Mean Corpuscular Hemoglobin Concent 32.9 32.0-36.0 g/dL Red Cell Distribution Width 13.3 11.0-15.5 % Platelet Count 208 130-400 K/uL Mean Platelet Volume 10.5 7.5-10.5 fL Nucleated Red Blood Cells 0.0 0.0-0.19 % Immature Granulocyte % (Auto) 5.9 H 0-1 % Neutrophils (%) (Auto) 64.4 40.0-77.0 % Lymphocytes (%) (Auto) 17.0 L 21.0-51.0 % Monocytes (%) (Auto) 10.6 3.0-13.0 % Eosinophils (%) (Auto) 1.2 0.0-8.0 % Basophils (%) (Auto) 0.9 0.0-5.0 % Neutrophils # (Auto) 5.7 1.8-7.7 K/uL Lymphocytes # (Auto) 1.5 1.0-4.8 K/uL Monocytes # (Auto) 1.0 0.1-1.0 K/uL Eosinophils # (Auto) 0.11 0.00-0.70 K/uL Basophils # (Auto) 0.08 0.00-0.20 K/uL Absolute Immature Granulocyte (auto 0.53 0-1 K/uL Chemistry Labs: Test 11/15/24 10:31 11/15/24 03:13 11/14/24 05:12 Range/Units Whole Blood Glucose 120 H 70-110 MG/DL Sodium Level 139 136-145 mmol/L Potassium Level 3.5 3.5-5.1 mmol/L Chloride Level 106 101-111 mmol/L Carbon Dioxide Level 23 21-32 mmol/L Blood Urea Nitrogen 8 7-18 mg/dL Creatinine 0.9 0.5-1.3 mg/dL Glomerular Filtration Rate Calc 93 >90 mL/min Random Glucose 96 70-105 mg/dL Lactic Acid Level 1.2 0.8-2.5 mmol/L Total Calcium 7.9 L 8.5-10.1 mg/dL Total Bilirubin 0.4 0.2-1.0 mg/dL Aspartate Amino Transf (AST/SGOT) 50 H 10-37 U/L Alanine Aminotransferase (ALT/SGPT) 40 12-78 U/L Alkaline Phosphatase 59 50-136 U/L Total Protein 5.7 L 6.0-8.3 g/dL Albumin 2.0 L 3.5-5.0 g/dL Ionized Calcium 1.02 L 1.15-1.33 MMOL/L Phosphorus Level 2.7 2.5-4.9 mg/dL Magnesium Level 2.10 1.80-2.40 mg/dL Coagulation Labs: Test 11/15/24 09:09 11/13/24 16:17 Range/Units Activated Partial Thromboplast Time 58.7 H 26.3-35.5 SEC Prothrombin Time 11.1 9.6-11.6 SEC Prothromb Time International Ratio 1.05 0.85-1.15 DIAGNOSTICS / RADIOLOGY RESULTS: [ ] PLAN NEURO: Minimize central acting medications as possible. Fall Precautions. Well lighted room through the day and minimize interruptions through the night to prevent acute delirium. PULMONARY: Supplemental 02 as needed Titrate Fio2 to keep Spo2 > or = 90% DuoNebs and CPT as needed IS hourly while awake for pulmonary hygiene Out of bed to chair as tolerated VAP Bundle Bipap 12/6 fio2 50% RT to titrate FiO2 as needed to maintain O2 above 92% CARDIOVASCULAR: Follow hemodynamics. Titrate vasopressor to keep MAP >65 or systolic blood pressure >95mmHg DIPS: Levophed Epi Lidocaine Insulin LINES: Central venous catheter right IJ Impella Chest tube A line Daniel catheter Left femoral sheath in place GI & NUTRITION: NPO for now Aspirations precautions Prokinetic agents and laxatives as needed KIDNEYS & ELECTROLYTES: Strict monitoring of intake and output Daily weights Avoid nephrotoxic agents Monitor electrolytes and replace as needed Goal urine output of 30mL/hr or 0.5mL/kg/hr Urine output 2 L in last 24 hours Chest tube drained 400 mL to lateral side Mediastinal drain 90 mL with I&O balance positive 230 mL ENDOCRINE: Maintain blood glucose between 100-180 at all times. Insulin sliding scale for blood glucose management INFECTIOUS DISEASE: Trend temperature. Nichols-culture if febrile. Micro: [ ] MRSA negative Antibiotics: [ ] Ancef HEMATOLOGY & COAGULATION: Monitor H&H. Keep Hgb > 7 Transfuse 1 unit of PRBC for Hgb < 7 Transfuse 1 pack of platelets of platelets < 20, 000 Watch for any signs and symptoms of bleeding SKIN: Pressure ulcer prevention per facility protocol Rehab: PT/OT Prophylaxis: GI: [ Protonix 40 mg IV b.i.d.] DVT: [Al hose per CV ] Code Status: Full Resuscitation Disposition: [ ICU] Case was discussed and seen with my supervising physician. The above plan was f ormulated and agreed upon. SNOW MATAMOROS Nov 15, 2024 11:38
--- NOTE | 2024-11-15 12:19 | PN ---
Patient seen and examined, all labs and imaging have been reviewed, patient is sitting comfortably at bedside chair. Continues with the Impella, P5 Patient has clotted off his 4th a line. Anesthesia was brought into place of 5th. Hematology has also been requested to evaluate patient for his clotting. Patient is comfortable, he is reporting no pain or discomfort no chest pain or shortness of breath. No abdominal complaints. Good saturations on nasal cannula 2 L He is alert and oriented, Urine output There is plan to for removal of Impella. PHYSICAL EXAM: GENERAL: alert, weak, awake oriented x 3 HEENT: EOMI, Sclera non icteric, moist mucosa NECK: Supple, no JVD, trachea midline right IJ. Subclavian Impella 5.5 LUNGS: Rhonchi to right lower lobes. No wheezes HEART: Regular rate and rhythm. Normal S1 and S2, without murmurs mid incision line tenderness. Dressing clean dry and intact. ABD: Abdomen soft, nontender. Bowel sounds present EXT: No clubbing cyanosis or edema. Left femoral sheath. NEURO: Alert and oriented to person, follows commands Assessment 1. Anemia 2. Thrombocytopenia 3.CAD s/p CABG x 3+1 w/ redo on 11/07/24 Impella 5 x 5 4. ELSA 5. Hyperlipidemia 6. Sclerotic nodule on the non coronary cusp on 2D echo Normal ventricular diastolic function with LVEF of 60-65% on 2D echo 11/05/24 7. Former smoker Plan: 1. Peripheral blood smear showed red blood cells to be normocytic normochromic. There was no fragment cell or schistocyte. There is no teardrop cell. There is no rouleaux phenomena. There is no pelger-Huet cell. White blood cell with no blasts. Platelet was normal in morphology and count. 2. There was hypersegmented neutrophils. This patient to be started on folic acid 1 mg p.o. daily and vitamin B12 1000 mcg p.o. daily. 3. 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 We will ask for direct Juan to be done on this patient. 4. 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 We will ask for SPEP, UPEP and free light chain. If there is monoclonal protein we will do a bone marrow biopsy. 5. 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 Continue care as per cardiothoracic surgery Vitals/Labs Vital Signs Date Time Temp Pulse Resp B/P (MAP) Pulse Ox O2 Delivery O2 Flow Rate FiO2 11/15/24 12:10 80 17 N/Cannula Oximizer Hi LPM 4.0 36 11/15/24 09:10 104/73 (83) 96 127/98 (108) 11/15/24 04:00 97.9 Laboratory Tests 11/15/24 03:13 Medications Current Medications Aspirin 325 mg ONCE ONCE PO Last administered on 11/03/24at 17:53; Start 11/03/24 at 18:00; Stop 11/03/24 at 18:01; Status DC Acetaminophen 650 mg Q6H PRN PO Last administered on 11/06/24at 23:00; Start 11/03/24 at 21:00; Stop 11/07/24 at 14:00; Status DC Aspirin 81 mg DAILY PO Last administered on 11/15/24at 08:59; Start 11/04/24 at 09:00; Stop 12/04/24 at 08:59 Atorvastatin Calcium 40 mg HS PO; Start 11/03/24 at 21:00; Stop 11/03/24 at 20:40; Status DC Enoxaparin Sodium 40 mg DAILY SQ Last administered on 11/05/24at 09:06; Start 11/04/24 at 09:00; Stop 11/07/24 at 13:38; Status DC Famotidine 20 mg DAILY PO Last administered on 11/05/24at 09:06; Start 11/04/24 at 09:00; Stop 11/07/24 at 13:38; Status DC Hydralazine HCl 10 mg Q6H PRN IV; Start 11/03/24 at 21:00; Stop 11/07/24 at 13:38; Status DC Lactulose 20 gm BID PRN PO; Start 11/03/24 at 21:00; Stop 11/07/24 at 14:00; Status DC Morphine Sulfate 2 mg Q4H PRN IVP Last administered on 11/04/24at 15:49; Start 11/03/24 at 21:00; Stop 11/07/24 at 13:38; Status DC Nitroglycerin 0.5 inch Q8H TD Last administered on 11/07/24at 05:46; Start 11/03/24 at 21:00; Stop 11/07/24 at 13:38; Status DC Ondansetron HCl 4 mg Q6H PRN IV; Start 11/03/24 at 21:00; Stop 11/07/24 at 14:00; Status DC Atorvastatin Calcium 40 mg HS PO Last administered on 11/07/24at 20:15; Start 11/03/24 at 21:00; Stop 11/09/24 at 07:45; Status DC Metoprolol Tartrate 50 mg BID PO Last administered on 11/06/24at 20:38; Start 11/04/24 at 21:00; Stop 11/07/24 at 13:38; Status DC Iohexol 35,000 mg STK-MED ONCE IV; Start 11/05/24 at 11:05; Stop 11/05/24 at 11:05; Status DC Sodium Chloride 1,000 ml @ 100 mls/hr Q10H ONCE IV Last administered on 11/05/24at 14:03; Start 11/05/24 at 13:30; Stop 11/05/24 at 23:29; Status DC Lidocaine HCl 20 ml STK-MED ONCE .ROUTE; Start 11/06/24 at 11:05; Stop 11/06/24 at 11:05; Status DC Iohexol 35,000 mg STK-MED ONCE IV; Start 11/06/24 at 11:05; Stop 11/06/24 at 11:06; Status DC Heparin Sodium (Porcine) 10,000 unit STK-MED ONCE .ROUTE; Start 11/06/24 at 11:05; Stop 11/06/24 at 11:06; Status DC Heparin Sodium/ Sodium Chloride 1,000 ml @ As Directed STK-MED ONCE IV; Start 11/06/24 at 11:06; Stop 11/06/24 at 11:06; Status DC Nitroglycerin 50 mg STK-MED ONCE .ROUTE; Start 11/06/24 at 11:06; Stop 11/06/24 at 11:06; Status DC Verapamil HCl 5 mg STK-MED ONCE .ROUTE; Start 11/06/24 at 11:06; Stop 11/06/24 at 11:06; Status DC Fentanyl Citrate 100 mcg STK-MED ONCE .ROUTE; Start 11/06/24 at 11:35; Stop 11/06/24 at 11:36; Status DC Midazolam HCl 2 mg STK-MED ONCE .ROUTE; Start 11/06/24 at 11:35; Stop 11/06/24 at 11:36; Status DC Vitamin B Complex 1,000 mcg DAILY IM Last administered on 11/12/24at 09:03; Start 11/07/24 at 09:00; Stop 11/13/24 at 08:59; Status DC Sodium Chloride 1,000 ml @ 100 mls/hr Q10H IV; Start 11/06/24 at 12:30; Stop 11/06/24 at 15:29; Status DC Cefazolin Sodium 2 gm ONCALL IVPB; Start 11/06/24 at 22:00; Stop 11/07/24 at 14:00; Status DC Epinephrine HCl 10 mg/Sodium Chloride 250 ml @ 0 mls/hr AD PRN IV; Start 11/07/24 at 11:00; Stop 11/07/24 at 14:02; Status DC Norepinephrine Bitartrate 250 ml @ 0 mls/hr AD PRN IV; Start 11/07/24 at 11:00; Stop 11/07/24 at 14:02; Status DC Aminocaproic Acid 04568 mg/Sodium Chloride 480 ml @ 0 mls/hr AD PRN IV; Start 11/07/24 at 11:00; Stop 11/07/24 at 14:03; Status DC Metoprolol Tartrate 25 mg ONCE ONCE PO Last administered on 11/07/24at 11:15; Start 11/07/24 at 11:30; Stop 11/07/24 at 11:31; Status DC Nitroglycerin/ Dextrose 1 ml @ As Directed STK-MED ONCE .ROUTE; Start 11/07/24 at 11:25; Stop 11/07/24 at 11:25; Status DC Acetaminophen 1,000 mg Q6H6 IV Last administered on 11/08/24at 18:08; Start 11/07/24 at 18:00; Stop 11/08/24 at 17:59; Status DC Aspirin 81 mg ONCE ONCE NG; Start 11/07/24 at 17:00; Stop 11/07/24 at 17:01; Status DC Docusate Sodium 100 mg BID PO Last administered on 11/07/24at 20:15; Start 11/07/24 at 21:00; Stop 11/08/24 at 10:11; Status DC Lactulose 20 gm BID PRN PO Last administered on 11/11/24at 16:43; Start 11/07/24 at 14:00; Stop 12/07/24 at 13:59 Furosemide 20 mg Q12H PO Last administered on 11/15/24at 09:00; Start 11/09/24 at 09:00; Stop 12/09/24 at 08:59 Furosemide 20 mg Q12H IV Last administered on 11/08/24at 20:23; Start 11/08/24 at 09:00; Stop 11/09/24 at 08:59; Status DC Enoxaparin Sodium 30 mg DAILY SQ Last administered on 11/12/24at 09:03; Start 11/10/24 at 09:00; Stop 11/13/24 at 08:38; Status DC Metoprolol Tartrate 12.5 mg BID PO; Start 11/09/24 at 09:00; Stop 11/11/24 at 09:39; Status DC Magnesium Hydroxide 30 ml DAILY PRN PO; Start 11/07/24 at 14:00; Stop 12/07/24 at 13:59 Dexmedetomidine/ Sodium Chloride 400 mcg PROTOCOL IV; Start 11/07/24 at 14:00; Stop 12/07/24 at 13:59 Acetaminophen 650 mg Q6H PRN PO; Start 11/07/24 at 14:00; Stop 12/07/24 at 13:59 Sodium Chloride 1,000 ml @ 10 mls/hr ONCE IV Last administered on 11/07/24at 20:11; Start 11/07/24 at 14:00; Stop 11/08/24 at 13:59; Status DC Sodium Chloride 10 ml Q8H PRN IVP; Start 11/07/24 at 14:00; Stop 12/07/24 at 13:59 Morphine Sulfate 0.5 mg Q2H PRN IV; Start 11/07/24 at 14:00; Stop 11/08/24 at 13:59; Status DC Morphine Sulfate 1 mg Q2H PRN IV; Start 11/07/24 at 14:00; Stop 11/08/24 at 13:59; Status DC Acetaminophen 650 mg Q4H PRN RC; Start 11/07/24 at 14:00; Stop 12/07/24 at 13:59 Ondansetron HCl 4 mg Q6H PRN IV Last administered on 11/09/24at 21:50; Start 11/07/24 at 14:00; Stop 12/07/24 at 13:59 Sodium Chloride 500 ml @ 0 mls/hr AD IV Last administered on 11/10/24at 00:41; Start 11/07/24 at 14:00; Stop 12/07/24 at 13:59 Nitroglycerin/ Dextrose 0 ml @ 0 mls/hr AD IV; Start 11/07/24 at 14:00; Stop 11/10/24 at 13:59; Status DC Propofol 100 ml @ 0 mls/hr AD PRN IV; Start 11/07/24 at 14:00; Stop 11/11/24 at 13:59; Status DC Norepinephrine Bitartrate 250 ml @ 0 mls/hr AD PRN IV Last administered on 11/09/24at 17:09; Start 11/07/24 at 14:00; Stop 11/12/24 at 13:59; Status DC Epinephrine HCl 10 mg/Sodium Chloride 250 ml @ 13.948 mls/ hr AD PRN IV Last administered on 11/09/24at 19:48; Start 11/07/24 at 14:00; Stop 11/12/24 at 13:59; Status DC Aminocaproic Acid 22251 mg/Sodium Chloride 310 ml @ 25 mls/hr AD IV; Start 11/07/24 at 14:00; Stop 11/08/24 at 02:23; Status DC Calcium Gluconate 1 gm/Sodium Chloride 60 ml @ 200 mls/hr AD PRN IV Last administered on 11/14/24at 10:36; Start 11/07/24 at 14:00; Stop 12/07/24 at 13:59 Magnesium Sulfate 50 ml @ 12.5 mls/hr AD PRN IV Last administered on 11/09/24at 05:59; Start 11/07/24 at 14:00; Stop 12/07/24 at 13:59 Potassium Chloride 100 ml @ 100 mls/hr AD PRN IV Last administered on 11/15/24at 05:33; Start 11/07/24 at 14:00; Stop 12/07/24 at 13:59 Potassium Phosphate 250 ml @ 42 mls/hr AD PRN IV Last administered on 11/08/24at 07:22; Start 11/07/24 at 14:00; Stop 12/07/24 at 13:59 Albumin Human 250 ml @ 0 mls/hr AD PRN IV Last administered on 11/08/24at 09:57; Start 11/07/24 at 14:00; Stop 11/08/24 at 09:57; Status DC Acetaminophen 650 mg Q4H PRN PO; Start 11/07/24 at 14:00; Stop 12/07/24 at 13:59 Insulin Human Regular 100 unit/ Sodium Chloride 100 ml @ 0 mls/hr AD IV Last administered on 11/08/24at 12:30; Start 11/07/24 at 14:00; Stop 11/09/24 at 13:59; Status DC Cefazolin Sodium 2 gm Q8H IVPB Last administered on 11/08/24at 11:15; Start 11/07/24 at 19:00; Stop 11/08/24 at 11:01; Status DC Tramadol HCl 25 mg Q6H PRN PO; Start 11/07/24 at 14:00; Stop 11/09/24 at 08:37; Status DC Tramadol HCl 50 mg Q6H PRN PO Last administered on 11/08/24at 23:30; Start 11/07/24 at 14:00; Stop 11/09/24 at 08:37; Status DC Famotidine 20 mg BID IV Last administered on 11/08/24at 08:11; Start 11/07/24 at 21:00; Stop 11/08/24 at 08:59; Status DC Sodium Bicarbonate 50 meq AD PRN IV Last administered on 11/08/24at 00:54; Start 11/07/24 at 14:00; Stop 11/10/24 at 13:59; Status DC Dextrose 50 ml AD PRN IV; Start 11/07/24 at 14:00; Stop 12/07/24 at 13:59 Glucagon 1 mg AD PRN IM; Start 11/07/24 at 14:00; Stop 12/07/24 at 13:59 Protamine Sulfate 250 mg STK-MED ONCE IV; Start 11/07/24 at 14:25; Stop 11/07/24 at 14:26; Status DC Lidocaine HCl 100 mg STK-MED ONCE .ROUTE; Start 11/07/24 at 14:25; Stop 11/07/24 at 14:26; Status DC Heparin Sodium (Porcine) 10,000 unit STK-MED ONCE .ROUTE; Start 11/07/24 at 14:26; Stop 11/07/24 at 14:26; Status DC Epinephrine HCl 1 mg STK-MED ONCE .ROUTE; Start 11/07/24 at 14:26; Stop 11/07/24 at 14:26; Status DC Sodium Bicarbonate 200 ml @ As Directed STK-MED ONCE .ROUTE; Start 11/07/24 at 14:26; Stop 11/07/24 at 14:26; Status DC Norepinephrine Bitartrate 4 mg STK-MED ONCE IV; Start 11/07/24 at 14:26; Stop 11/07/24 at 14:26; Status DC Propofol 200 mg STK-MED ONCE IV; Start 11/07/24 at 14:26; Stop 11/07/24 at 14:26; Status DC Fentanyl Citrate 1,000 mcg STK-MED ONCE IJ; Start 11/07/24 at 14:26; Stop 11/07/24 at 14:27; Status DC Midazolam HCl 2 mg STK-MED ONCE .ROUTE; Start 11/07/24 at 14:26; Stop 11/07/24 at 14:27; Status DC Rocuronium [place] 50 mg STK-MED ONCE .ROUTE; Start 11/07/24 at 14:27; Stop 11/07/24 at 14:27; Status DC Ketamine HCl 50 mg STK-MED ONCE .ROUTE; Start 11/07/24 at 14:31; Stop 11/07/24 at 14:31; Status DC Cefazolin Sodium 1 gm STK-MED ONCE .ROUTE Last administered on 11/07/24at 15:00; Start 11/07/24 at 14:55; Stop 11/07/24 at 14:56; Status DC Heparin Sodium/ Sodium Chloride 500 ml @ As Directed STK-MED ONCE IV; Start 11/07/24 at 14:57; Stop 11/07/24 at 14:57; Status DC Papaverine HCl 60 mg STK-MED ONCE .ROUTE Last administered on 11/07/24at 15:51; Start 11/07/24 at 14:57; Stop 11/07/24 at 14:57; Status DC Cefazolin Sodium 1 gm STK-MED ONCE .ROUTE Last administered on 11/07/24at 15:49; Start 11/07/24 at 15:46; Stop 11/07/24 at 15:46; Status DC Amiodarone HCl 150 mg STK-MED ONCE .ROUTE; Start 11/07/24 at 17:06; Stop 11/07/24 at 17:06; Status DC Amiodarone HCL/ Dextrose 100 ml @ As Directed STK-MED ONCE .ROUTE; Start 11/07/24 at 17:08; Stop 11/07/24 at 17:09; Status DC Cardioplegic Solution 0 ml @ As Directed STK-MED ONCE IV; Start 11/07/24 at 17:13; Stop 11/07/24 at 17:13; Status DC Heparin Sodium (Porcine) 10,000 unit STK-MED ONCE .ROUTE; Start 11/07/24 at 17:15; Stop 11/07/24 at 17:15; Status DC Sodium Bicarbonate 50 ml @ As Directed STK-MED ONCE .ROUTE; Start 11/07/24 at 17:26; Stop 11/07/24 at 17:26; Status DC Sodium Bicarbonate 200 ml @ As Directed STK-MED ONCE .ROUTE; Start 11/07/24 at 17:36; Stop 11/07/24 at 17:36; Status DC Midazolam HCl 5 mg STK-MED ONCE .ROUTE; Start 11/07/24 at 17:57; Stop 11/07/24 at 17:57; Status DC Sodium Bicarbonate 150 ml @ As Directed STK-MED ONCE .ROUTE; Start 11/07/24 at 18:06; Stop 11/07/24 at 18:06; Status DC Amiodarone HCL/ Dextrose 100 ml @ As Directed STK-MED ONCE .ROUTE; Start 11/07/24 at 18:25; Stop 11/07/24 at 18:25; Status DC Cefazolin Sodium 1 gm STK-MED ONCE .ROUTE; Start 11/07/24 at 18:43; Stop 11/07/24 at 18:43; Status DC Ketamine HCl 50 mg STK-MED ONCE .ROUTE; Start 11/07/24 at 18:56; Stop 11/07/24 at 18:56; Status DC Ephedrine Sulfate 50 mg STK-MED ONCE .ROUTE; Start 11/07/24 at 18:58; Stop 11/07/24 at 18:59; Status DC Lidocaine HCl/ Dextrose 250 ml @ As Directed STK-MED ONCE IV Last administered on 11/07/24at 20:08; Start 11/07/24 at 19:02; Stop 11/07/24 at 19:02; Status DC Dextrose/Sodium Bicarbonate 1,025 ml @ 10 mls/hr Q24H IV Last administered on 11/15/24at 09:42; Start 11/07/24 at 19:30; Stop 12/07/24 at 19:29 Calcium Gluconate 1 gm AD PRN IV Last administered on 11/08/24at 16:36; Start 11/08/24 at 09:00; Stop 11/09/24 at 07:45; Status DC Pantoprazole Sodium 40 mg BID IVP Last administered on 11/15/24at 08:59; Start 11/08/24 at 09:00; Stop 12/08/24 at 08:59 Montelukast Sodium 10 mg HS PO Last administered on 11/14/24at 20:30; Start 11/08/24 at 21:00; Stop 12/08/24 at 20:59 Ipratropium [place] 0.5 MG [id number] IH Last administered on 11/15/24at 12:09; Start 11/08/24 at 12:00; Stop 12/08/24 at 11:59 Polyethylene Glycol 17 gm DAILY PO Last administered on 11/15/24at 08:59; Start 11/09/24 at 09:00; Stop 12/09/24 at 08:59 Polyethylene Glycol 17 gm STK-MED ONCE .ROUTE; Start 11/08/24 at 10:01; Stop 11/08/24 at 10:02; Status DC Docusate Sodium 100 mg BID NG Last administered on 11/09/24at 20:47; Start 11/08/24 at 10:30; Stop 11/09/24 at 21:53; Status DC Levothyroxine Sodium 125 mcg SYN PO Last administered on 11/15/24at 07:17; Start 11/09/24 at 06:30; Stop 12/09/24 at 06:29 Clopidogrel Bisulfate 75 mg DAILY PO Last administered on 11/15/24at 09:00; Start 11/08/24 at 14:00; Stop 12/08/24 at 13:59 Sucralfate 1 gm TID PO Last administered on 11/15/24at 08:59; Start 11/08/24 at 21:00; Stop 12/08/24 at 20:59 Lidocaine HCl/ Dextrose 250 ml @ 0 mls/hr PROTOCOL PRN IV Last administered on 11/08/24at 21:15; Start 11/08/24 at 21:00; Stop 11/09/24 at 08:37; Status DC Metoclopramide HCl 5 mg ONCE ONCE IVP Last administered on 11/09/24at 00:22; Start 11/09/24 at 00:30; Stop 11/09/24 at 00:31; Status DC Acetaminophen 100 ml @ As Directed STK-MED ONCE .ROUTE; Start 11/09/24 at 07:08; Stop 11/09/24 at 07:08; Status DC Acetaminophen 1,000 mg ONCE ONCE IVPB Last administered on 11/09/24at 07:47; Start 11/09/24 at 08:00; Stop 11/09/24 at 08:01; Status DC Acetaminophen 1,000 mg Q6H IVPB Last administered on 11/12/24at 02:11; Start 11/09/24 at 09:00; Stop 11/12/24 at 08:59; Status DC Lidocaine/ Prilocaine 1 appl ONCE ONCE TP Last administered on 11/09/24at 09:49; Start 11/09/24 at 09:30; Stop 11/09/24 at 09:33; Status DC Piperacillin Sod/ Tazobactam Sod 3.375 gm Q8H IV Last administered on 11/15/24at 09:42; Start 11/09/24 at 10:00; Stop 11/19/24 at 09:59 Piperacillin Sod/ Tazobactam Sod 3.375 gm Q8H IV; Start 11/09/24 at 10:00; Stop 11/09/24 at 09:38; Status DC Midodrine 10 mg TID PO Last administered on 11/10/24at 20:07; Start 11/09/24 at 21:00; Stop 11/11/24 at 06:58; Status DC Docusate Sodium 100 mg BID PO Last administered on 11/15/24at 09:00; Start 11/10/24 at 09:00; Stop 12/10/24 at 08:59 Calcium Chloride 1,000 mg STK-MED ONCE IVP; Start 11/03/24 at 12:28; Stop 11/10/24 at 12:31; Status DC Albumin Human 50 ml @ As Directed STK-MED ONCE IV; Start 11/03/24 at 12:28; Stop 11/10/24 at 12:31; Status DC Heparin Sodium (Porcine) 10,000 unit STK-MED ONCE IV; Start 11/03/24 at 12:28; Stop 11/10/24 at 12:31; Status DC Lidocaine HCl 5 mg STK-MED ONCE IVP; Start 11/03/24 at 12:28; Stop 11/10/24 at 12:31; Status DC Magnesium Sulfate 1 gm STK-MED ONCE IM; Start 11/03/24 at 12:28; Stop 11/10/24 at 12:31; Status DC Mannitol 12.5 gm STK-MED ONCE IV; Start 11/03/24 at 12:28; Stop 11/10/24 at 12:31; Status DC Norepinephrine Bitartrate 1 mg STK-MED ONCE IV; Start 11/03/24 at 12:28; Stop 11/10/24 at 12:31; Status DC Sodium Bicarbonate 50 meq STK-MED ONCE IVP; Start 11/03/24 at 12:28; Stop 11/10/24 at 12:31; Status DC Atorvastatin Calcium 40 mg HS PO Last administered on 11/14/24at 20:30; Start 11/10/24 at 21:00; Stop 12/10/24 at 20:59 Midodrine 15 mg TID PO Last administered on 11/15/24at 09:04; Start 11/11/24 at 09:00; Stop 12/11/24 at 08:59 Lidocaine HCl 20 ml STK-MED ONCE .ROUTE Last administered on 11/12/24at 10:06; Start 11/12/24 at 09:24; Stop 11/12/24 at 09:24; Status DC Norepinephrine Bitartrate 250 ml @ 0 mls/hr PROTOCOL IV Last administered on 11/13/24at 08:42; Start 11/12/24 at 18:30; Stop 12/12/24 at 18:29 Epinephrine HCl 10 mg/Sodium Chloride 250 ml @ 0 mls/hr PROTOCOL IV Last administered on 11/14/24at 03:13; Start 11/12/24 at 23:30; Stop 12/12/24 at 23:29 Heparin Sodium (Porcine) *calculation based on ACTUAL B... AD PRN IV; Start 11/13/24 at 09:30; Stop 12/13/24 at 09:29 Heparin Sodium/ Dextrose 250 ml @ 0 mls/hr Q6H IV Last administered on 11/14/24at 20:49; Start 11/13/24 at 09:30; Stop 12/13/24 at 09:29 Pharmacy Profile Note 1 each ONCE MISC; Start 11/13/24 at 09:00; Stop 11/13/24 at 08:57; Status DC Lidocaine HCl 20 ml STK-MED ONCE .ROUTE Last administered on 11/13/24at 10:24; Start 11/13/24 at 09:10; Stop 11/13/24 at 09:11; Status DC Lidocaine HCl ONCE ONCE INJ; Start 11/13/24 at 10:00; Stop 11/13/24 at 10:01; Status DC Folic Acid 1 mg DAILY PO Last administered on 11/15/24at 09:05; Start 11/14/24 at 09:00; Stop 12/14/24 at 08:59 Vitamin B Complex 1,000 mcg DAILY PO Last administered on 11/15/24at 08:59; Start 11/14/24 at 09:00; Stop 12/14/24 at 08:59 Iron Sucrose 100 mg ONCE ONCE IV; Start 11/13/24 at 13:30; Stop 11/13/24 at 13:24; Status DC Potassium Chloride 20 meq AD PRN PO Last administered on 11/14/24at 00:17; Start 11/14/24 at 00:30; Stop 12/14/24 at 00:29 Potassium Chloride 20 meq AD PRN PO Last administered on 11/15/24at 09:01; Start 11/14/24 at 00:30; Stop 12/14/24 at 00:29 TAINA ARZOLA MD Nov 15, 2024 12:19
[2024-11-15] MEDS: ALBUMIN (HUMAN) 5% 250 ML IV STA (13:28)
--- NOTE | 2024-11-15 14:24 | PN ---
[facility] PROGRESS NOTE Date of Service: Nov 15, 2024 Time of Service: 14:13 SUBJECTIVE: Mr. Valadez a 68-year-old male that was seen and examined today on 11/03/2024. Patient reports that he came to the emergency department with a chief complaint of chest pain. Onset was two or three years ago. He had similar repeated episodes months back which resolved on its own. Today's episode began at 11:00 a.m. Location is midsternal. Duration is on and off. Character is described as "neck someone is pushing a knuckle into the center of my chest. The chest pain did not radiate to shoulder, neck or jaw. "There was no alleviating factors. There was no aggravating factors. Patient reports that symptoms seemingly resolve on their own. He denies nausea, vomiting, fever and any other associated symptoms. Patient denies any associated shortness of breath. Patient has a past medical history of hyperlipidemia and Graves disease. He has been taking atorvastatin and Synthroid as his home medications. Today in the emergency department WBC 5.8, hemoglobin 12.9 platelets 197. His chemistries were within normal limits sodium 140, potassium 4.2, blood urea nitrogen 15 and creatinine 1.0. His electrocardiogram showed normal sinus rhythm. Patient will be admitted for further evaluation and related recommendations in Med-Surg. 11/04/24 Patient was evaluated at the bedside in ED-09. He reports that he is having chest pain that comes and goes. The patient reports having 2 episodes of chest pain in the last hour. He denies associated symptoms such as shortness of breath, palpitation, diaphoresis, dizziness, nausea or syncope. He does however complain of muscle pain in his lower limbs described as a dull aching discomfort that begins in the hip region that is worsened with movement. The patient complains of tingling and numbness in his feet bilaterally. No fever, chills or recent infection reported. Appetite and oral intake are normal. No other acute complaints at this time. On physical exam, a systolic murmur was auscultated over the aortic area. Bilateral carotid bruits are present. Lower extremities are cool to the touch with diminished pedal pulses. Patient reports bilateral leg muscle pain with exertion (suggestive of claudication), and chronic numbness and tingling in the feet. Patient reports recently quitting smoking tobacco for 2 months. He had a 1 pack a day smoking history since 1968. The [facility] and denies following with a [facility]. The patient says his chest pain has been ongoing for the past 3 years, and that it gets worse with exertion and at rest. 11/05/24 Patient was evaluated at the bedside room 231. He was hemodynamically stable. Hi symptoms has improved significantly. He doesn't complain of chest pain, shortness of breath and any other associated symptoms. Echocardiogram was done which revealed aortic valve: trileaflet, mildly sclerotic, and opens well. Carotid artery ultrasound showed Bilateral ICA/CCA ratio more than 4.0 suggesting more than 70% stenosis. 11/06/24 Patient was evaluated at the bedside room 231. He was hemodynamically stable. Hi symptoms has improved significantly. He doesn't complain of chest pain, shortness of breath and any other associated symptoms. In coronary CT angiography there is mixed calcified and noncalcified plaque in the proximal LAD with 80-90% stenosis. Left circumflex coronary artery: Normal caliber, nondominant and gives rise to a large OM branch. There is mixed calcified and noncalcified plaque in the mid LCx with 80-90% stenosis. CAD-RAD of 4B. Left heart catheterization with selective right and left coronary angiography was performed which showed critical left main disease. 11/07/24 Patient was evaluated at the bedside room 231. He was hemodynamically stable. He doesn't complain of chest pain, shortness of breath and any other associated symptoms. He complaints of headache 8/10 of intensity after the administration of Nitroglycerin. Cardiac catheterization demonstrated a very tight left main lesion and the patient is referred for surgical revascularization. As per Dr Meza: Surgery is planned for today. 11/08/24: Patient was seen and evaluated this morning at bedside. The patient is POD 1 s/p CABG. Patient is currently being managed in the ICU. The patients most recent ABG shows a pH of 7.43, ABG PCO2 47, ABG PO2 77.9, ABG HCO3 30.8. Recent ABG shows improving lactic acid, from 8 to 3.85. The patients chemistry reveals a sodium level 157, potassium level 3.4, creatinine 1.9, BUN 19, GFR 38, phosphorous 2.2. Liver enzymes are trending up, with an ALT level at 325 and an AST level at 869. The patients home medication of Synthroid has been restarted. Chest x-ray ordered today, results pending. We will continue to follow recommendations from critical care team, and cardiology. 11/09/2024: Patient is seen and evaluated in the room 213. The patient is POD 2 s/p CABG. Patient is currently being managed in the ICU. He is complaining of pain. His vitals are in the normal range. His Hb is 11.1, WBC is 19.1, Plt is 115, sodium is 154, chloride is 113, glucose is 122. His recent ABG shows that pH is 7.472, pO2 is 80.1, bicarb is 30.4, Hb is 11.4, lactic acid is 1.63. His chest X-ray on 11/08 showed improved aeration within the left perihilar and left basilar regions. As per nurse he is having intervention confusion, stopped lidocaine and they also weaning on pressors norepinephrine and epinephrine. The drain output from left anterior chest is 20ml, mediastinal lateral is 160ml, mediastinal mediastinal is 300ml, right anterior chest is 160 ml. We will continue to follow recommendations from critical care team, and cardiology. 11/10/2024: Patient was seen and evaluated this morning at bedside. The patient is POD 3 s/p CABG. Patient is currently being managed in the ICU. He is not having any symptoms today. His vitals are in the normal range. His labs are normal except for Hb is 10.1, WBC is 14.7, plt is 85, sodium is 147, AST is 156, ALT is 95, APTT is 25.5. ABG shows that his pH is 7.4, lactate is 1.22, bicarb is 31. The drain output from left anterior chest is 170 ml, mediastinal mediastinal is 130ml. We will continue to follow recommendations from critical care team, and cardiology. 11/11/2024: Patient was seen and evaluated this morning at bedside. The patient is POD 4 s/p CABG. He is not having any symptoms today. His vitals are in the normal range. His labs are normal except for hemoglobin is 9.7, WBC is 11.7, platelet is 106, glucose is 107, AST is 87, ALT is 62. ABG shows pH is 7.468, lactic acid is 1.03. We will continue to follow recommendations from critical care team, and cardiology. 11/12/2024: Patient was seen and evaluated in the room 218. The patient is POD 5 s/p CABG. He is having dizziness and ache in the left shoulder. His vitals are in the normal range. His labs are normal except for hemoglobin 9.6, platelets is 94, AST 75. ABG shows pH 7.487, lactic acid 1.2. Currently he is not on any pressors. Cardiovascular surgery tried to wean Impella. They decreased impella setting to P4 but his blood pressure is low so they went back to P5. Cardiovascular surgery also increased his midodrine dose to 15mg. His chest X- ray showed mild pulmonary vascular congestion. He had a bowel movement and good urine output. He is using incentive spirometry well. We will continue to follow recommendations from the critical Care team and Cardiology. 11/13/2024: Patient was seen and evaluated in the room 218. The patient is POD 6 s/p CABG. He is having dizziness and generalized ache. His vitals are in the normal range. His labs are normal except for Hb is 8.9, calcium is 7.4, glucose is 140. His chest x-ray showed that mild borderline cardiomegaly with median sternotomy with cardiac and aspiration procedure, support lines in satisfactory position, no evidence of airspace consolidation or pulmonary venous congestion. He is restarted on norepinephrine and epinephrine drip and impella at P5 as he is hypotensive and has bradycardia. The nurse told me that she will consult anesthesia for changing the arterial line as his line is not working. He is on heparin drip and off of lovenox. The drain output from left anterior chest is 260 ml, mediastinal mediastinal is 60ml. Hematology was consulted as he is in a hypercoagulable state. 11/14/2024: Patient was seen and evaluated in the room 218. The patient is POD 7 s/p CABG. His vital signs are in the normal range except for blood pressure is 88/64. His labs are normal except for hemoglobin is 8.8, APTT is 62.4, glucose is 133, calcium is 7.5, AST is 61. Chest X-ray showed mild cardiomegaly with median sternotomy with cardiac revascularization procedure, support lines are in satisfactory position. His impella is increased to P7 as he is hypotensive and bradycardic. He is on epinephrine. The drain output from left anterior chest is 80ml and from mediastinal mediastinal is 20ml. Hematology saw the patient and they recommended to start folic acid, vitamin B12, ordered SPEP, UPEP, free light chains. They think that the patient might be having hemolytic anemia which could be the reason for his graft clotting after surgery. 11/15/2024: He was evaluated at the bedside this morning. The patient is POD 8 s/p CABG. He is on Impella support with blood pressure 89/64 with map 72. Remarkable lab is for hemoglobin 9.2. Chest x-ray revealed mildly improved right lower lobe airspace opacity with stable cardiac support device and median sternotomy. His MPOA is encouraged to P8 and weaned off the pressors. Hematology recommending Juan test to rule out autoimmune hemolytic anemia. Hematology, CT surgery, critical care and cardiology on the board. Rest of the plan as discussed below. REVIEW OF SYSTEMS CONSTITUTIONAL: Pain in his left shoulder No fever, chills, or night sweats. NEUROLOGICAL: No headache no sensory and motor deficit. CARDIOVASCULAR: Dizziness Denies any exertional angina, dyspnea on exertion, palpitations. PULMONARY: Denies any shortness of breath, cough, phlegm/sputum, hemoptysis, pleuritic chest pain. GASTROINTESTINAL: Denies nausea, vomiting. Denies pain, tenderness around the abdomen. GENITOURINARY: Denies frequency, urgency, nocturia, hematuria or incontinence. PHYSICAL EXAM GENERAL APPEARANCE: The patient is alert, awake and oriented and bedbound. NEUROLOGICAL: No sensory and motor deficits. CHEST: left anterior chest , mediastinal mediastinal drains are present. D ressing is clean Normal chest expansion. LUNGS: Normal vesicular breath sound. Absence of any rales, rhonchi or any wheezing. CARDIOVASCULAR: Systolic murmur heard over aortic area. Bilateral carotid bruits heard. No JVD. ABDOMEN: Soft nontender, and nondistended. There is no rebound, voluntary guarding, or rigidity. No abdominal bruit heard. GENITOURINARY: No suprapubic tenderness. No costovertebral angle tenderness. EXTREMITIES: Limbs are non-edematous. Vital Signs (last 8hr) Date Time Temp Pulse Resp B/P (MAP) Pulse Ox O2 Delivery O2 Flow Rate FiO2 11/15/24 13:00 85 30 94/61 (72) 96 95/45 (62) 11/15/24 12:45 98.1 11/15/24 12:45 85 30 85/57 (66) 96 11/15/24 12:30 80 30 81/53 (62) 95 11/15/24 12:30 96 Nasal Cannula* 4 N/A N/C Oxymizer Hi LPM* 11/15/24 12:27 82 15 77/53 (61) 96 93/67 (76) 11/15/24 12:25 82 15 75/49 (58) 96 78/56 (63) 11/15/24 12:20 82 35 84/53 (63) 97 92/67 (75) 11/15/24 12:15 79 26 83/52 (62) 95 73/42 (52) 11/15/24 12:10 80 17 N/Cannula Oximizer Hi LPM 4.0 36 11/15/24 12:10 80 19 11/15/24 12:00 78 24 89/55 (66) 97 97/67 (77) 11/15/24 11:45 80 28 88/55 (66) 93 11/15/24 11:30 80 13 89/55 (66) 93 36 11/15/24 11:15 80 23 90/59 (69) 95 36 11/15/24 11:10 80 25 75/54 (61) 93 36 119/78 (92) 11/15/24 11:00 84 26 89/58 (68) 91 36 11/15/24 10:55 80 18 86/60 (69) 93 36 100/61 (74) 11/15/24 10:45 80 19 75/53 (60) 93 36 11/15/24 10:40 79 11 83/58 (66) 92 36 106/63 (77) 11/15/24 10:30 76 28 79/54 (62) 93 36 11/15/24 10:25 77 26 87/62 (70) 93 99/61 (74) 11/15/24 10:15 70 27 99/76 (84) 92 11/15/24 10:10 72 25 89/71 (77) 93 103/77 (86) 11/15/24 10:09 72 32 88/70 (76) 93 101/73 (82) 11/15/24 10:00 79 27 79/63 (68) 96 11/15/24 09:56 79 24 90/68 (75) 97 101/56 (71) 11/15/24 09:30 73 24 100/67 (78) 94 11/15/24 09:25 73 25 97/67 (77) 95 109/80 (90) 11/15/24 09:15 74 25 105/70 (82) 97 11/15/24 09:10 75 20 104/73 (83) 96 28 127/98 (108) 11/15/24 09:00 77 16 105/72 (83) 96 28 107/38 (61) 11/15/24 08:40 76 18 104/74 (84) 94 28 107/79 (88) 11/15/24 08:30 96 Nasal Cannula* 2 N/A N/C Oxymizer Hi LPM* 11/15/24 08:25 75 23 102/73 (83) 93 28 101/70 (80) 11/15/24 08:00 71 22 103/70 (81) 95 28 97/64 (75) 11/15/24 07:11 70 24 92/69 (77) 91 28 104/71 (82) 11/15/24 07:00 76 22 90/69 (76) 97 28 11/15/24 06:48 70 19 11/15/24 06:47 80 17 N/Cannula Oximizer Hi LPM 2.0 28 11/15/24 06:45 67 17 89/64 (72) 95 107/69 (82) 11/15/24 06:30 72 16 81/59 (66) 95 94/66 (75) 11/15/24 06:15 74 23 82/62 (69) 95 92/53 (66) LABS: Laboratory: Test 11/15/24 10:33 11/15/24 10:31 11/15/24 09:09 11/15/24 03:13 Range/Units Blood Gas Specimen Type Arterial Arterial Blood pH 7.515 H 7.350-7.450 Arterial Blood Partial Pressure CO2 24 L 35-48 mmHg Arterial Blood Partial Pressure O2 68.1 L 83.0-108.0 mmHg Arterial Blood HCO3 18.5 L 21.0-28.0 mmol/L Arterial Blood Oxygen Saturation 93.5 L 94.0-98.0 % Arterial Blood Base Excess -3.1 L -2.0-3.0 mmol/L Hemoglobin (Blood Gas) 10.8 L 13.5-17.5 g/dL Sodium (Blood Gas) 135 L 136-145 MMOL/L Bedside Potassium (Blood Gas) 3.9 3.4-4.5 MMOL/L Bedside Chloride (Blood Gas) 106 98-107 MMOL/L Bedside Glucose (Blood Gas) 106 H 65-95 MG/DL Bedside Ionized Calcium (Blood Gas) 1.09 L 1.15-1.33 MMOL/L Bedside Lactic Acid (Blood Gas) 1.77 H 0.36-0.75 MMOL/L Blood Gas Temperature 37.0 35.5-37.0 CELSIUS Blood Gas Flow-by 2.00 0.00-15.00 L/min Blood Gas Vent Mode NC ROOM AIR FiO2 28.0 % Blood Gas Specimen Comment RN VITALY Whole Blood Glucose 120 H 70-110 MG/DL Activated Partial Thromboplast Time 58.7 H 26.3-35.5 SEC White Blood Count 6.4 # 4.8-10.8 K/uL Red Blood Count 2.87 L 4.50-6.20 MIL/uL Hemoglobin 9.2 L 14.0-18.0 g/dL Hematocrit 28.0 L 42-54 % Mean Corpuscular Volume 97.6 79-99 fL Mean Corpuscular Hemoglobin 32.1 27.0-33.0 pg Mean Corpuscular Hemoglobin Concent 32.9 32.0-36.0 g/dL Red Cell Distribution Width 13.3 11.0-15.5 % Platelet Count 208 130-400 K/uL Mean Platelet Volume 10.5 7.5-10.5 fL Nucleated Red Blood Cells 0.0 0.0-0.19 % Sodium Level 139 136-145 mmol/L Potassium Level 3.5 3.5-5.1 mmol/L Chloride Level 106 101-111 mmol/L Carbon Dioxide Level 23 21-32 mmol/L Blood Urea Nitrogen 8 7-18 mg/dL Creatinine 0.9 0.5-1.3 mg/dL Glomerular Filtration Rate Calc 93 >90 mL/min Random Glucose 96 70-105 mg/dL Lactic Acid Level 1.2 0.8-2.5 mmol/L Total Calcium 7.9 L 8.5-10.1 mg/dL Total Bilirubin 0.4 0.2-1.0 mg/dL Aspartate Amino Transf (AST/SGOT) 50 H 10-37 U/L Alanine Aminotransferase (ALT/SGPT) 40 12-78 U/L Alkaline Phosphatase 59 50-136 U/L Total Protein 5.7 L 6.0-8.3 g/dL Albumin 2.0 L 3.5-5.0 g/dL Test 11/14/24 05:12 11/13/24 16:17 Range/Units Immature Granulocyte % (Auto) 5.9 H 0-1 % Neutrophils (%) (Auto) 64.4 40.0-77.0 % Lymphocytes (%) (Auto) 17.0 L 21.0-51.0 % Monocytes (%) (Auto) 10.6 3.0-13.0 % Eosinophils (%) (Auto) 1.2 0.0-8.0 % Basophils (%) (Auto) 0.9 0.0-5.0 % Neutrophils # (Auto) 5.7 1.8-7.7 K/uL Lymphocytes # (Auto) 1.5 1.0-4.8 K/uL Monocytes # (Auto) 1.0 0.1-1.0 K/uL Eosinophils # (Auto) 0.11 0.00-0.70 K/uL Basophils # (Auto) 0.08 0.00-0.20 K/uL Absolute Immature Granulocyte (auto 0.53 0-1 K/uL Ionized Calcium 1.02 L 1.15-1.33 MMOL/L Phosphorus Level 2.7 2.5-4.9 mg/dL Magnesium Level 2.10 1.80-2.40 mg/dL Prothrombin Time 11.1 9.6-11.6 SEC Prothromb Time International Ratio 1.05 0.85-1.15 Current Medications Medications (Trade) Dose Ordered Sig/Brittany Route PRN Reason Start Time Stop Time Status Last Admin Dose Admin Acetaminophen (TYLenol 325MG TAB) 650 mg Q4H PRN PO Temp >38.3C(AFTER EXTUBATION) 11/07/24 14:00 12/07/24 13:59 Acetaminophen (TYLenol 325MG TAB) 650 mg Q6H PRN PO TEMPERATURE GREATER THAN 101.5 11/03/24 21:00 11/07/24 14:00 DC 11/06/24 23:00 650 MG Acetaminophen (TYLenol 325MG TAB) 650 mg Q6H PRN PO MILD PAIN (1-3) 11/07/24 14:00 12/07/24 13:59 Acetaminophen (TYLenol 650MG SUPPOSITORY) 650 mg Q4H PRN RC Temp >38.3C WHILE INTUBATED 11/07/24 14:00 12/07/24 13:59 Acetaminophen (acetaMINOPHEN) 1,000 mg Q6H IVPB 11/09/24 09:00 11/12/24 08:59 DC 11/12/24 02:11 1,000 MG Acetaminophen (acetaMINOPHEN) 1,000 mg Q6H6 IV 11/07/24 18:00 11/08/24 17:59 DC 11/08/24 18:08 1,000 MG Albumin Human 250 ml @ 0 mls/hr AD PRN IV IF HEMODYNAMICALLY UNSTABLE 11/07/24 14:00 11/08/24 09:57 DC 11/08/24 09:57 125 MLS/HR Albumin Human 250 ml @ 0 mls/hr AD STAT IV 11/15/24 13:09 11/15/24 13:12 DC 11/15/24 13:28 250 MLS/HR Aminocaproic Acid 37342 mg/Sodium Chloride 310 ml @ 25 mls/hr AD IV 11/07/24 14:00 11/08/24 02:23 DC Aminocaproic Acid 91149 mg/Sodium Chloride 480 ml @ 0 mls/hr AD PRN IV BLEEDING CONTROL 11/07/24 11:00 11/07/24 14:03 DC Aspirin (Aspirin 81mg Ec Tab) 81 mg DAILY PO 11/04/24 09:00 12/04/24 08:59 11/15/24 08:59 81 MG Atorvastatin Calcium (LIPItor 40MG) 40 mg HS PO 11/03/24 21:00 11/03/24 20:40 DC Atorvastatin Calcium (LIPItor 40MG) 40 mg HS PO 11/03/24 21:00 11/09/24 07:45 DC 11/07/24 20:15 40 MG Atorvastatin Calcium (LIPItor 40MG) 40 mg HS PO 11/10/24 21:00 12/10/24 20:59 11/14/24 20:30 40 MG Calcium Gluconate (Calcium Gluc 1gm Vial) 1 gm AD PRN IV HYPOCALCEMIA 11/08/24 09:00 11/09/24 07:45 DC 11/08/24 16:36 1 GM Calcium Gluconate 1 gm/Sodium Chloride 60 ml @ 200 mls/hr AD PRN IV HYPOCALCEMIA 11/07/24 14:00 12/07/24 13:59 11/14/24 10:36 200 MLS/HR Cefazolin Sodium (Ancef) 2 gm ONCALL IVPB 11/06/24 22:00 11/07/24 14:00 DC Cefazolin Sodium (Ancef) 2 gm Q8H IVPB 11/07/24 19:00 11/08/24 11:01 DC 11/08/24 11:15 2 GM Clopidogrel Bisulfate (plaVIX 75MG) 75 mg DAILY PO 11/08/24 14:00 12/08/24 13:59 11/15/24 09:00 75 MG Dexmedetomidine/ Sodium Chloride (PRECEdex 400MCG/ 100ML-NS) 400 mcg PROTOCOL IV 11/07/24 14:00 12/07/24 13:59 Dextrose (D50w) 50 ml AD PRN IV HYPOGLYCEMIA PROTOCOL 11/07/24 14:00 12/07/24 13:59 Dextrose/Sodium Bicarbonate 1,025 ml @ 10 mls/hr Q24H IV 11/07/24 19:30 12/07/24 19:29 11/15/24 09:42 10 MLS/HR Docusate Sodium (COLace 100MG CAP) 100 mg BID PO 11/07/24 21:00 11/08/24 10:11 DC 11/07/24 20:15 100 MG Docusate Sodium (COLace 100MG CAP) 100 mg BID PO 11/10/24 09:00 12/10/24 08:59 11/15/24 09:00 100 MG Docusate Sodium (COLace LIQUID 100MG/10ML) 100 mg BID NG 11/08/24 10:30 11/09/24 21:53 DC 11/09/24 20:47 100 MG Enoxaparin Sodium (Lovenox) 30 mg DAILY SQ 11/10/24 09:00 11/13/24 08:38 DC 11/12/24 09:03 30 MG Enoxaparin Sodium (Lovenox) 40 mg DAILY SQ 11/04/24 09:00 11/07/24 13:38 DC 11/05/24 09:06 40 MG Epinephrine HCl 10 mg/Sodium Chloride 250 ml @ 13.948 mls/ hr AD PRN IV POST-OP CARDIOVASCULAR ORDERS 11/07/24 14:00 11/12/24 13:59 DC 11/09/24 19:48 7 MLS/HR Epinephrine HCl 10 mg/Sodium Chloride 250 ml @ 0 mls/hr AD PRN IV TITRATE 11/07/24 11:00 11/07/24 14:02 DC Epinephrine HCl 10 mg/Sodium Chloride 250 ml @ 0 mls/hr PROTOCOL IV 11/12/24 23:30 12/12/24 23:29 11/14/24 03:13 0 MLS/HR Famotidine (Pepcid 20mg Vial) 20 mg BID IV 11/07/24 21:00 11/08/24 08:59 DC 11/08/24 08:11 20 MG Famotidine (Pepcid 20mg Tab) 20 mg DAILY PO 11/04/24 09:00 11/07/24 13:38 DC 11/05/24 09:06 20 MG Folic Acid (FOLic ACID 1 MG TABLET) 1 mg DAILY PO 11/14/24 09:00 12/14/24 08:59 11/15/24 09:05 1 MG Furosemide (LASix 20MG TAB) 20 mg Q12H PO 11/09/24 09:00 12/09/24 08:59 11/15/24 09:00 20 MG Furosemide (LASix 20MG VIAL) 20 mg Q12H IV 11/08/24 09:00 11/09/24 08:59 DC 11/08/24 20:23 20 MG Glucagon (Glucagon 1mg Kit) 1 mg AD PRN IM HYPOGLYCEMIA PROTOCOL 11/07/24 14:00 12/07/24 13:59 Heparin Sodium (Porcine) (HEParin 5,000 UNIT VIAL) *calculation based on ACTUAL B... AD PRN IV HEPARIN PROTOCOL 11/13/24 09:30 12/13/24 09:29 Heparin Sodium/ Dextrose 250 ml @ 0 mls/hr Q6H IV 11/13/24 09:30 12/13/24 09:29 11/14/24 20:49 14 MLS/HR Hydralazine HCl (APRESOLine 20MG INJ) 10 mg Q6H PRN IV For:SBP above 160;DBP above 90 11/03/24 21:00 11/07/24 13:38 DC Insulin Human Regular 100 unit/ Sodium Chloride 100 ml @ 0 mls/hr AD IV 11/07/24 14:00 11/09/24 13:59 DC 11/08/24 12:30 4 MLS/HR Ipratropium [place] (AtrovENT UD) 0.5 MG [id number] IH 11/08/24 12:00 12/08/24 11:59 11/15/24 12:09 0.5 MG Lactulose (Constulose 20gm/ 30ml Udcup) 20 gm BID PRN PO CONSTIPATION 11/03/24 21:00 11/07/24 14:00 DC Lactulose (Constulose 20gm/ 30ml Udcup) 20 gm BID PRN PO CONSTIPATION 11/07/24 14:00 12/07/24 13:59 11/11/24 16:43 20 GM Levothyroxine Sodium (SYNTHroid 125MCG TAB) 125 mcg SYN PO 11/09/24 06:30 12/09/24 06:29 11/15/24 07:17 125 MCG Lidocaine HCl/ Dextrose 250 ml @ 0 mls/hr PROTOCOL PRN IV OTHER [SEE ORDER COMMENTS] 11/08/24 21:00 11/09/24 08:37 DC 11/08/24 21:15 7.5 MLS/HR Magnesium Hydroxide (Milk Of Magnesium 30ml) 30 ml DAILY PRN PO CONSTIPATION 11/07/24 14:00 12/07/24 13:59 Magnesium Sulfate 50 ml @ 12.5 mls/hr AD PRN IV MAG LEVEL LESS THAN 2.0 11/07/24 14:00 12/07/24 13:59 11/09/24 05:59 12.5 MLS/HR Metoprolol Tartrate (loprESSOR) 12.5 mg BID PO 11/09/24 09:00 11/11/24 09:39 DC Metoprolol Tartrate (loprESSOR) 50 mg BID PO 11/04/24 21:00 11/07/24 13:38 DC 11/06/24 20:38 50 MG Midodrine (PROAMatine 5 MG TABLET) 10 mg TID PO 11/09/24 21:00 11/11/24 06:58 DC 11/10/24 20:07 10 MG Midodrine (PROAMatine 5 MG TABLET) 15 mg TID PO 11/11/24 09:00 12/11/24 08:59 11/15/24 09:04 15 MG Montelukast Sodium (SinguLAIR) 10 mg HS PO 11/08/24 21:00 12/08/24 20:59 11/14/24 20:30 10 MG Morphine Sulfate (morPHINE 2MG SYG) 0.5 mg Q2H PRN IV MODERATE PAIN (4-6) 11/07/24 14:00 11/08/24 13:59 DC Morphine Sulfate (morPHINE 2MG SYG) 1 mg Q2H PRN IV SEVERE PAIN (7-10) 11/07/24 14:00 11/08/24 13:59 DC Morphine Sulfate (morPHINE 4MG SYG) 2 mg Q4H PRN IVP SEVERE PAIN (7-10) 11/03/24 21:00 11/07/24 13:38 DC 11/04/24 15:49 2 MG Nitroglycerin (Nitroglycerin 1gm Oint) 0.5 inch Q8H TD 11/03/24 21:00 11/07/24 13:38 DC 11/07/24 05:46 0.5 INCH Nitroglycerin/ Dextrose 0 ml @ 0 mls/hr AD IV 11/07/24 14:00 11/10/24 13:59 DC Norepinephrine Bitartrate 250 ml @ 0 mls/hr AD PRN IV TITRATE 11/07/24 11:00 11/07/24 14:02 DC Norepinephrine Bitartrate 250 ml @ 0 mls/hr AD PRN IV POST-OP CARDIOVASCULAR ORDERS 11/07/24 14:00 11/12/24 13:59 DC 11/09/24 17:09 5.6 MLS/HR Norepinephrine Bitartrate 250 ml @ 0 mls/hr PROTOCOL IV 11/12/24 18:30 12/12/24 18:29 11/13/24 08:42 2 MLS/HR Ondansetron HCl (zoFRAN 4MG INJ) 4 mg Q6H PRN IV NAUSEA/VOMITING 11/03/24 21:00 11/07/24 14:00 DC Ondansetron HCl (zoFRAN 4MG INJ) 4 mg Q6H PRN IV NAUSEA/VOMITING 11/07/24 14:00 12/07/24 13:59 11/09/24 21:50 4 MG Pantoprazole Sodium (PROTonix 40MG INJ) 40 mg BID IVP 11/08/24 09:00 12/08/24 08:59 11/15/24 08:59 40 MG Pharmacy Profile Note (Pharmacy Communication) 1 each ONCE MISC 11/13/24 09:00 11/13/24 08:57 DC Piperacillin Sod/ Tazobactam Sod (Zosyn 3.375gm+NS 50ml) 3.375 gm Q8H IV 11/09/24 10:00 11/09/24 09:38 DC Piperacillin Sod/ Tazobactam Sod (Zosyn 3.375gm+NS 50ml) 3.375 gm Q8H IV 11/09/24 10:00 11/19/24 09:59 11/15/24 09:42 3.375 GM Polyethylene Glycol (MIRalax 3350 17 GM POWD.PACK) 17 gm DAILY PO 11/09/24 09:00 12/09/24 08:59 11/15/24 08:59 17 GM Potassium Phosphate 250 ml @ 42 mls/hr AD PRN IV LOW PHOS LEVEL 11/07/24 14:00 12/07/24 13:59 11/08/24 07:22 42 MLS/HR Potassium Chloride 100 ml @ 100 mls/hr AD PRN IV HYPOKALEMIA 11/07/24 14:00 12/07/24 13:59 11/15/24 05:33 100 MLS/HR Potassium Chloride (K-Dur/Klor-Con 20meq) 20 meq AD PRN PO POTASSIUM PROTOCOL 11/14/24 00:30 12/14/24 00:29 11/15/24 09:01 20 MEQ Potassium Chloride (KCl 10% Elixir 20meq/15ml) 20 meq AD PRN PO POTASSIUM PROTOCOL 11/14/24 00:30 12/14/24 00:29 11/14/24 00:17 20 MEQ Propofol 100 ml @ 0 mls/hr AD PRN IV SEDATION 11/07/24 14:00 11/11/24 13:59 DC Sodium Bicarbonate (Sodium Bicarb 50meq 50ml Vial) 50 meq AD PRN IV OTHER[SEE DOSING INSTRUCTIONS] 11/07/24 14:00 11/10/24 13:59 DC 11/08/24 00:54 50 MEQ Sodium Chloride 500 ml @ 0 mls/hr AD IV 11/07/24 14:00 12/07/24 13:59 11/10/24 00:41 3 MLS/HR Sodium Chloride 1,000 ml @ 10 mls/hr ONCE IV 11/07/24 14:00 11/08/24 13:59 DC 11/07/24 20:11 10 MLS/HR Sodium Chloride 1,000 ml @ 100 mls/hr Q10H IV 11/06/24 12:30 11/06/24 15:29 DC Sodium Chloride (NS Flush 10ml) 10 ml Q8H PRN IVP IV LINE FLUSH 11/07/24 14:00 12/07/24 13:59 Sucralfate (Carafate) 1 gm TID PO 11/08/24 21:00 12/08/24 20:59 11/15/24 08:59 1 GM Tramadol HCl (UltRAM) 25 mg Q6H PRN PO MODERATE PAIN (4-6) 11/07/24 14:00 11/09/24 08:37 DC Tramadol HCl (UltRAM) 50 mg Q6H PRN PO SEVERE PAIN (7-10) 11/07/24 14:00 11/09/24 08:37 DC 11/08/24 23:30 50 MG Vitamin B Complex (Vitamin B-12) 1,000 mcg DAILY IM 11/07/24 09:00 11/13/24 08:59 DC 11/12/24 09:03 1,000 MCG Vitamin B Complex (Vitamin B-12) 1,000 mcg DAILY PO 11/14/24 09:00 12/14/24 08:59 11/15/24 08:59 1,000 MCG DIAGNOSTICS / RADIOLOGY: [ ] ASSESSMENT: Coronary artery disease, POA, s/p CABG 3v and redo sternotomy with redo of gra ft failure now s/p CABG with 4v Hyperlipidemia, POA Hypothyroidism, POA Peripheral artery disease, suspected Carotid artery stenosis PLAN: Coronary artery disease, POA s/p CABG 3v and redo sternotomy with redo of graft failure now s/p CABG with 4v * Administer aspirin 325 mg p.o. now and then continue aspirin 81 mg p.o. daily * Troponin every 6 hours, serial troponin levels are 9-9-12-11. * Supplemental oxygen as needed to maintain SpO2 greater than 94% * Monitor for recurrence of chest pain, arrhythmias, or hemodynamic changes * Electrocardiogram was done which is normal. * A 2D Echo has been ordered due to patients history of chest pain on exertion and rest. * A cardiology consult has been placed for evaluation of CAD in patient with exertional chest pain and vascular disease. 11/04/24 * Echocardiogram was done which revealed aortic valve: trileaflet, mildly sclerotic, and opens well. * Pending Coronary CTA reports. * Lipid panels has been ordered to assess Cardiovascular risks. Results unremarkable. * In coronary CT angiography there is mixed calcified and noncalcified plaque in the proximal LAD with 80-90% stenosis. Left circumflex coronary artery: Normal caliber, nondominant and gives rise to a large OM branch. There is mixed calcified and noncalcified plaque in the mid LCx with 80-90% stenosis. * CAD-RAD of 4B. * Left heart catheterization with selective right and left coronary angiography was performed which showed critical left main disease. Severe ostial RCA stenosis. 11/06/24 * He complaints of headache 8/10 of intensity after the administration of Nitroglycerin. Tylenol has been administered. Closely monitoring the patient. * Cardiac catheterization demonstrated a very tight left main lesion and the patient is referred for surgical revascularization. * Patient is POD 8 S/P CABG, patient is being managed in the ICU per protocol. * Recent ABG shows lactic acid is 1.21. * Norepinephrine, epinephrine drip were restarted as he is hypotensive and has bradycardia. * Currently he is on epinephrine drip * His impella setting is increased to P7 from P5 as he is hypotensive and bradycardic. * We will continue to following Cardiology and critical care recommendations. * He is on heparin drip and off lovenox. * Hematology saw the patient and they recommended to start folic acid, vitamin B12, ordered SPEP, UPEP, free light chains. They think that the patient might be having hemolytic anemia which could be the reason for his graft clotting after surgery. * Cardiology plan to wean him of the pressors than impella. Peripheral vascular disease, Suspected * Patient has history of exertional bilateral leg pain * Diminished peripheral pulses * A SERA has been ordered due to the patients complaint of bilateral lower extremity claudication, and numbness/tingling in bilateral lower extremities. * Clear aspirin 81 mg daily and statin 40mg * Encouraged supervised exercise therapy for claudication * Counseled on continued smoking cessation 11/04/24 Peripheral Neuropathy * Vitamin B12 has been ordered to rule out peripheral neuropathy.11/05/24 * Complained of numbness and tingling in his limbs. * Vitamin B12 level was measured which showed 173L. * Patient has been started on vitamin B12 supplement 1000 mcg for 6 days. Carotid artery stenosis * Presence of bilateral carotid bruit on exam, suspicion for significant stenosis * Carotid Duplex ultrasound has been done, awaiting reports * Risk factor modification: Smoking cessation, BP control, glycemic control. 11/04/24 * Carotid artery ultrasound showed Bilateral ICA/CCA ratio more than 4.0 suggesting more than 70% stenosis. 11/05/24 * Cardiology recommended CT/MR angiogram when stable from surgical standpoint Hyperlipidemia * Continue home statin therapy atorvastatin 40 mg * Reinforce low-cholesterol, heart healthy diet (limit saturated fats, increase fiber, fruits and vegetables) * Encouraged regular physical activity as tolerated * Monitor lipid panel * Outpatient follow up with PCP/Cardiology for long-term lipid management and cardiovascular risks reduction Supportive measures * Start patient on GI prophylaxis * DVT prophylaxis * Monitor morning labs CBC and BMP daily * He is on clear liquid diet Hypothyroidism * Continue home dose of levothyroxine at 125 mcg daily * TSH 1.33. ATTESTATION BY PHYSICIAN I have seen and examined the patient. I reviewed the documentation, medical decision making, and treatment plan as noted by the resident provider above. I agree with the findings and plan of care. Shawn Loera IV, MD, SUNIL MD Nov 15, 2024 14:24
[2024-11-16] VITALS (119 sets, daily range): BP systolic 66–233; BP diastolic 32–232; PULSE 68–91; RESP 6–30; TEMP 97.8–98.7; O2SAT 93–98
[2024-11-16 03:25] LABS: ABG BASE EXCESS -2.2 mmol/L (-2.0-3.0); ABG HCO3 20.3 mmol/L (21.0-28.0); ABG OXYGEN SATURATION 96.3 % (94.0-98.0); ABG PCO2 27 mmHg (35-48); ABG PH 7.495 (7.350-7.450); CARBON MONOXIDE 0.1 % (0.5-1.5); DEVICE COMMENT MARISA RN, AL; PO2, ARTERIAL BG 86.0 mmHg (83.0-108.0); TEMPERATURE, CELSIUS BG 37.0 CELSIUS (35.5-37.0); VENT MODE, BG 4LNC (ROOM AIR)
[2024-11-16 04:29] LABS: NUCLEATED RED BLOOD CELLS 0.0 % (0.0-0.19); PLATELET COUNT (AUTO) 257.0 K/uL (130-400); RED BLOOD CELL COUNT(AUTO) 2.79 MIL/uL (4.50-6.20); RED CELL DISTRIBUTION WIDTH 13.3 % (11.0-15.5); WHITE BLOOD COUNT (AUTO) 6.8 K/uL (4.8-10.8)
[2024-11-16 05:01] LABS: ASPARTATE AMINOTRANSFERASE 44.0 U/L (10-37); CREATININE 0.9 mg/dL (0.5-1.3); GLOMERULAR FILTR. RATE CALC 93.0 mL/min (>90); GLUCOSE,RANDOM 105.0 mg/dL (70-105); SODIUM SERUM 140.0 mmol/L (136-145); TOTAL PROTEIN, SERUM 6.0 g/dL (6.0-8.3); UREA NITROGEN, BLOOD 8.0 mg/dL (7-18)
--- NOTE | 2024-11-16 05:36 | PN ---
TIME: 3:00 p.m. SUBJECTIVE: The patient is a 69-year-old gentleman status post Impella assist with coronary artery bypass grafting. No major events overnight. Remains well. PHYSICAL EXAMINATION: NEUROLOGIC: Alert, oriented, no deficits. CARDIAC: S1, S2, regular rate and rhythm. RESPIRATORY: Clear to auscultation bilaterally. CHEST: Incision is clean, dry, and intact. ASSESSMENT AND PLAN: * Coronary artery disease, Impella assist, still on low-dose epinephrine and Levophed. We will continue to wean as tolerated. * Volume overload, on Lasix IV b.i.d. * Hypercholesterolemia, on high statin therapy. * Acute blood loss anemia. No evidence of active bleeding at this time. We will continue to monitor and transfuse for hemoglobin less than 7. TID: [id number] RECEIPT: [id number]
--- NOTE | 2024-11-16 08:42 | PN ---
[facility] CARDIOLOGY PROGRESS NOTE Date Patient Seen: Nov 16, 2024 Time of Visit: 08:41 Interval History: No acute events overnight. successfully weaned off pressors , with stable blood pressures , Impella at P -5 Physical Examination: GENERAL: No acute distress. HEAD: Normal with no signs of head trauma. EYES: PERRLA, EOMI, conjunctiva and sclera normal. ENT: Hearing grossly intact, normal oropharynx. NECK: Supple without JVD. There is no tenderness, lymphadenopathy, or masses. No thyromegaly. Normal carotid upstrokes without bruits. LUNGS: Clear breath sounds bilaterally. No wheezes, or rhonchi. HEART: Normal rate and rhythm. Normal S1 and S2 without murmurs, gallop or rub. VASC: Peripheral pulses +2 bilaterally. ABD: Bowel sounds normal, soft, nontender, no masses, no organomegaly. No audible bruits. : Not examined LYMPH: No lymphadenopathy noted. EXT: No clubbing, cyanosis or edema. SKIN: No rashes or lesions noted. NEURO: Awake, alert, and oriented x3. No focal sensory or strength deficits noted. Laboratory: [ ] Hematology Labs: Test 11/16/24 03:58 Range/Units White Blood Count 6.8 4.8-10.8 K/uL Red Blood Count 2.79 L 4.50-6.20 MIL/uL Hemoglobin 8.9 L 14.0-18.0 g/dL Hematocrit 27.1 L 42-54 % Mean Corpuscular Volume 97.1 79-99 fL Mean Corpuscular Hemoglobin 31.9 27.0-33.0 pg Mean Corpuscular Hemoglobin Concent 32.8 32.0-36.0 g/dL Red Cell Distribution Width 13.3 11.0-15.5 % Platelet Count 257 130-400 K/uL Mean Platelet Volume 10.3 7.5-10.5 fL Nucleated Red Blood Cells 0.0 0.0-0.19 % Chemistry Labs: Test 11/16/24 03:58 11/15/24 10:31 11/15/24 03:13 Range/Units Sodium Level 140 136-145 mmol/L Potassium Level 3.7 3.5-5.1 mmol/L Chloride Level 107 101-111 mmol/L Carbon Dioxide Level 22 21-32 mmol/L Blood Urea Nitrogen 8 7-18 mg/dL Creatinine 0.9 0.5-1.3 mg/dL Glomerular Filtration Rate Calc 93 >90 mL/min Random Glucose 105 70-105 mg/dL Total Calcium 7.8 L 8.5-10.1 mg/dL Magnesium Level 2.20 1.80-2.40 mg/dL Total Bilirubin 0.4 0.2-1.0 mg/dL Aspartate Amino Transf (AST/SGOT) 44 H 10-37 U/L Alanine Aminotransferase (ALT/SGPT) 33 12-78 U/L Alkaline Phosphatase 70 50-136 U/L Total Protein 6.0 6.0-8.3 g/dL Albumin 2.2 L 3.5-5.0 g/dL Whole Blood Glucose 120 H 70-110 MG/DL Lactic Acid Level 1.2 0.8-2.5 mmol/L Coagulation Labs: Test 11/16/24 07:39 Range/Units Activated Partial Thromboplast Time 55.8 H 26.3-35.5 SEC Diagnostics / Radiology: [Copy/Paste Echos/Imaging Report here] Impression and Plan: [Chest pain Hyperlipidemia CAD s/p PTCA to unknown vessel approximately 30 years ago Ex-smoker of 1 PPD with cessation 2 months ago Graves disease #CAD -s/p CABG 3v c/b bradycardia and redo sternotomy with redo of graft failure now s/p CABG with 4v Cardiac enzymes negative x5. EKG demonstrated normal sinus rhythm with heart rate of 67bpm, no acute ischemia noted. -2Decho results LVEF is 60-65%. no wall motion or valvular abnormalities. -CCTA There is mixed calcified and noncalcified plaque in the proximal LAD with 80-90% stenosis. Left circumflex coronary artery: Normal caliber, nondominant and gives rise to a large OM branch. There is mixed calcified and noncalcified plaque in the mid LCx with 80-90% stenosis. CAD-RAD of 4 -LHC with multivessel CAD including left main - Patient continues on Impella support has been weaned to P-5 -Continue ASA 81 mg daily atorvastatin 40 mg daily, lasix 20 mg IV bid -Continue Smxuvd41 mg daily -patient is currently in normal sinus rhythm, we will defer the use of amiodarone at this time -due to the patient's elevated LFTs statins are being held. LFTs continue improving. -rest of care per CV surgery -PT/OT #Carotid arterial Disease carotid US 11/05: Mild intimal thickening in the bilateral carotid arteries and their branches. Bilateral ICA/CCA ratio is more than 4.0 suggesting more than 70% stenosis. Raised velocities in the bilateral external and internal carotid arteries. Recommend CT/MR angiogram when stable from surgical standpoint -aspirin 81 mg daily Thank you for this consult cardiology will continue to follow along. ] YESICA MARTINEZ MD Nov 16, 2024 08:41
--- NOTE | 2024-11-16 10:09 | PN ---
[facility] PROGRESS NOTE Date Patient Seen: Nov 16, 2024 Time of Visit: 10:08 Supervising Physician: Dr Justin Wellington Primary Care Physician: Self Referral Outpatient Specialists: [ ] Inpatient Consults: PEG, Dr Jacobo, Dr Wellington , Dr Meza PROBLEM LIST: MvCAD s/p CABG x 3+1 w/ redo on 11/07/24 Impella 5 x 5 Postop acute anemia requiring transfusion ELSA Hyperlipidemia Sclerotic nodule on the non coronary cusp on 2D echo Normal ventricular diastolic function with LVEF of 60-65% on 2D echo 11/05/24 Former smoker Graves disease Obesity INTERVAL HISTORY: Patient seen and examined, all labs and imaging have been reviewed, no acute events overnight. Patient is sitting comfortably in bed, The Impella was decreased to P5, he is off epi He is tolerating his diet Afebrile Good saturations nasal cannula 2 L Lengthy discussion with patient, updated to treatment plan Plan: Following Cardiothoracic Surgeons postop protocol Neurovascular checks per protocol Weaning Impella per CTS I&Os Cardiac diet Telemetry PT/OT Heme-Onc recommendations Total critical care time 39 minutes, patient remains critical requiring pressors, Impella support. Time excludes any educational time or procedures performed REVIEW OF SYSTEMS: 12 point ROS reviewed with patient. Pertinent positives mentioned above. Otherwise negative. PHYSICAL EXAM: GENERAL: alert, weak, awake oriented x 3 HEENT: EOMI, Sclera non icteric, moist mucosa NECK: Supple, no JVD, trachea midline right IJ. Subclavian Impella 5.5 LUNGS: Rhonchi to right lower lobes. No wheezes HEART: Regular rate and rhythm. Normal S1 and S2, without murmurs mid incision line tenderness. Dressing clean dry and intact. ABD: Abdomen soft, nontender. Bowel sounds present EXT: No clubbing cyanosis or edema. Left femoral sheath. NEURO: Alert and oriented to person, follows commands Vital Signs (last 8hr) Date Time Temp Pulse Resp B/P (MAP) Pulse Ox O2 Delivery O2 Flow Rate FiO2 11/16/24 06:20 74 22 N/Cannula Oximizer Hi LPM 3.0 32 11/16/24 06:19 72 22 11/16/24 06:15 73 22 92/58 (69) 96 109/60 (76) 11/16/24 06:00 77 12 100/61 (74) 98 11/16/24 05:45 72 23 93/60 (71) 95 104/66 (79) 11/16/24 05:30 77 16 85/63 (70) 11/16/24 05:15 76 21 100/61 (74) 98 92/35 (54) 11/16/24 05:00 75 20 91/58 (69) 97 11/16/24 04:45 75 21 87/55 (66) 97 121/65 (83) 11/16/24 04:30 77 15 92/59 (70) 96 11/16/24 04:15 75 24 94/58 (70) 96 101/58 (72) 11/16/24 04:00 96 Nasal Cannula* 4 N/A N/C Oxymizer Hi LPM* 11/16/24 04:00 98.4 74 22 90/57 (68) 97 11/16/24 03:45 74 26 101/61 (74) 98 108/68 (81) 11/16/24 03:30 75 23 103/62 (76) 99 11/16/24 03:15 75 23 159/133 (142) 95 107/58 (74) 11/16/24 03:00 75 26 91/60 (70) 95 11/16/24 02:45 75 24 94/62 (73) 96 103/39 (60) 11/16/24 02:30 75 22 94/62 (73) 94 11/16/24 02:15 71 17 90/62 (71) 97 106/61 (76) LABS: Hematology Labs: Test 11/16/24 03:58 Range/Units White Blood Count 6.8 4.8-10.8 K/uL Red Blood Count 2.79 L 4.50-6.20 MIL/uL Hemoglobin 8.9 L 14.0-18.0 g/dL Hematocrit 27.1 L 42-54 % Mean Corpuscular Volume 97.1 79-99 fL Mean Corpuscular Hemoglobin 31.9 27.0-33.0 pg Mean Corpuscular Hemoglobin Concent 32.8 32.0-36.0 g/dL Red Cell Distribution Width 13.3 11.0-15.5 % Platelet Count 257 130-400 K/uL Mean Platelet Volume 10.3 7.5-10.5 fL Nucleated Red Blood Cells 0.0 0.0-0.19 % Chemistry Labs: Test 11/16/24 03:58 11/15/24 10:31 11/15/24 03:13 Range/Units Sodium Level 140 136-145 mmol/L Potassium Level 3.7 3.5-5.1 mmol/L Chloride Level 107 101-111 mmol/L Carbon Dioxide Level 22 21-32 mmol/L Blood Urea Nitrogen 8 7-18 mg/dL Creatinine 0.9 0.5-1.3 mg/dL Glomerular Filtration Rate Calc 93 >90 mL/min Random Glucose 105 70-105 mg/dL Total Calcium 7.8 L 8.5-10.1 mg/dL Magnesium Level 2.20 1.80-2.40 mg/dL Total Bilirubin 0.4 0.2-1.0 mg/dL Aspartate Amino Transf (AST/SGOT) 44 H 10-37 U/L Alanine Aminotransferase (ALT/SGPT) 33 12-78 U/L Alkaline Phosphatase 70 50-136 U/L Total Protein 6.0 6.0-8.3 g/dL Albumin 2.2 L 3.5-5.0 g/dL Whole Blood Glucose 120 H 70-110 MG/DL Lactic Acid Level 1.2 0.8-2.5 mmol/L Coagulation Labs: Test 11/16/24 07:39 Range/Units Activated Partial Thromboplast Time 55.8 H 26.3-35.5 SEC DIAGNOSTICS / RADIOLOGY RESULTS: [ ] PLAN NEURO: Minimize central acting medications as possible. Fall Precautions. Well lighted room through the day and minimize interruptions through the night to prevent acute delirium. PULMONARY: Supplemental 02 as needed Titrate Fio2 to keep Spo2 > or = 90% DuoNebs and CPT as needed IS hourly while awake for pulmonary hygiene Out of bed to chair as tolerated VAP Bundle Bipap 01/16 fio2 50% RT to titrate FiO2 as needed to maintain O2 above 92% CARDIOVASCULAR: Follow hemodynamics. Titrate vasopressor to keep MAP >65 or systolic blood pressure >95mmHg DIPS: Levophed Epi Lidocaine Insulin LINES: Central venous catheter right IJ Impella Chest tube A line Daniel catheter Left femoral sheath in place GI & NUTRITION: NPO for now Aspirations precautions Prokinetic agents and laxatives as needed KIDNEYS & ELECTROLYTES: Strict monitoring of intake and output Daily weights Avoid nephrotoxic agents Monitor electrolytes and replace as needed Goal urine output of 30mL/hr or 0.5mL/kg/hr Urine output 2 L in last 24 hours Chest tube drained 400 mL to lateral side Mediastinal drain 90 mL with I&O balance positive 230 mL ENDOCRINE: Maintain blood glucose between 100-180 at all times. Insulin sliding scale for blood glucose management INFECTIOUS DISEASE: Trend temperature. Nichols-culture if febrile. Micro: [ ] MRSA negative Antibiotics: [ ] Ancef HEMATOLOGY & COAGULATION: Monitor H&H. Keep Hgb > 7 Transfuse 1 unit of PRBC for Hgb < 7 Transfuse 1 pack of platelets of platelets < 20, 000 Watch for any signs and symptoms of bleeding SKIN: Pressure ulcer prevention per facility protocol Rehab: PT/OT Prophylaxis: GI: [ Protonix 40 mg IV b.i.d.] DVT: [Al hose per CV ] Code Status: Full Resuscitation Disposition: [ ICU] Case was discussed and seen with my supervising physician. The above plan was formulated and agreed upon. SNOW MATAMOROS Nov 16, 2024 10:09
--- NOTE | 2024-11-16 11:00 | NUR ---
Dr. Bill Vale MD at bedside, New orders received to turn epi on at 0.03 mcg/kg/min and keep it on at all times, make sure to dangle patient before getting up and transferring to chair, and decrease Impella performance level to p4 tomorrow morning.
--- NOTE | 2024-11-16 12:00 | NUR ---
Right brachial arterial line noted to be positional, readings not compatible with non-invasive blood pressure readings. Margarita BHAGAT made aware.
--- NOTE | 2024-11-16 12:57 | PN ---
[facility] PROGRESS NOTE Date of Service: Nov 16, 2024 Time of Service: 8:45 SUBJECTIVE: Mr. Valadez a 68-year-old male that was seen and examined today on 11/03/2024. Patient reports that he came to the emergency department with a chief complaint of chest pain. Onset was two or three years ago. He had similar repeated episodes months back which resolved on its own. Today's episode began at 11:00 a.m. Location is midsternal. Duration is on and off. Character is described as "neck someone is pushing a knuckle into the center of my chest. The chest pain did not radiate to shoulder, neck or jaw. "There was no alleviating factors. There was no aggravating factors. Patient reports that symptoms seemingly resolve on their own. He denies nausea, vomiting, fever and any other associated symptoms. Patient denies any associated shortness of breath. Patient has a past medical history of hyperlipidemia and Graves disease. He has been taking atorvastatin and Synthroid as his home medications. Today in the emergency department WBC 5.8, hemoglobin 12.9 platelets 197. His chemistries were within normal limits sodium 140, potassium 4.2, blood urea nitrogen 15 and creatinine 1.0. His electrocardiogram showed normal sinus rhythm. Patient will be admitted for further evaluation and related recommendations in Med-Surg. 11/04/24 Patient was evaluated at the bedside in ED-09. He reports that he is having chest pain that comes and goes. The patient reports having 2 episodes of chest pain in the last hour. He denies associated symptoms such as shortness of breath, palpitation, diaphoresis, dizziness, nausea or syncope. He does however complain of muscle pain in his lower limbs described as a dull aching discomfort that begins in the hip region that is worsened with movement. The patient complains of tingling and numbness in his feet bilaterally. No fever, chills or recent infection reported. Appetite and oral intake are normal. No other acute complaints at this time. On physical exam, a systolic murmur was auscultated over the aortic area. Bilateral carotid bruits are present. Lower extremities are cool to the touch with diminished pedal pulses. Patient reports bilateral leg muscle pain with exertion (suggestive of claudication), and chronic numbness and tingling in the feet. Patient reports recently quitting smoking tobacco for 2 months. He had a 1 pack a day smoking history since 1968. The [facility] and denies following with a director clinical data. The patient says his chest pain has been ongoing for the past 3 years, and that it gets worse with exertion and at rest. 11/05/24 Patient was evaluated at the bedside room 231. He was hemodynamically stable. Hi symptoms has improved significantly. He doesn't complain of chest pain, shortness of breath and any other associated symptoms. Echocardiogram was done which revealed aortic valve: trileaflet, mildly sclerotic, and opens well. Carotid artery ultrasound showed Bilateral ICA/CCA ratio more than 4.0 suggesting more than 70% stenosis. 11/06/24 Patient was evaluated at the bedside room 231. He was hemodynamically stable. Hi symptoms has improved significantly. He doesn't complain of chest pain, shortness of breath and any other associated symptoms. In coronary CT angiography there is mixed calcified and noncalcified plaque in the proximal LAD with 80-90% stenosis. Left circumflex coronary artery: Normal caliber, nondominant and gives rise to a large OM branch. There is mixed calcified and noncalcified plaque in the mid LCx with 80-90% stenosis. CAD-RAD of 4B. Left heart catheterization with selective right and left coronary angiography was performed which showed critical left main disease. 11/07/24 Patient was evaluated at the bedside room 231. He was hemodynamically stable. He doesn't complain of chest pain, shortness of breath and any other associated symptoms. He complaints of headache 8/10 of intensity after the administration of Nitroglycerin. Cardiac catheterization demonstrated a very tight left main lesion and the patient is referred for surgical revascularization. As per Dr Meza: Surgery is planned for today. 11/08/24: Patient was seen and evaluated this morning at bedside. The patient is POD 1 s/p CABG. Patient is currently being managed in the ICU. The patients most recent ABG shows a pH of 7.43, ABG PCO2 47, ABG PO2 77.9, ABG HCO3 30.8. Recent ABG shows improving lactic acid, from 8 to 3.85. The patients chemistry reveals a sodium level 157, potassium level 3.4, creatinine 1.9, BUN 19, GFR 38, phosphorous 2.2. Liver enzymes are trending up, with an ALT level at 325 and an AST level at 869. The patients home medication of Synthroid has been restarted. Chest x-ray ordered today, results pending. We will continue to follow recommendations from critical care team, and cardiology. 11/09/2024: Patient is seen and evaluated in the room 213. The patient is POD 2 s/p CABG. Patient is currently being managed in the ICU. He is complaining of pain. His vitals are in the normal range. His Hb is 11.1, WBC is 19.1, Plt is 115, sodium is 154, chloride is 113, glucose is 122. His recent ABG shows that pH is 7.472, pO2 is 80.1, bicarb is 30.4, Hb is 11.4, lactic acid is 1.63. His chest X-ray on 11/08 showed improved aeration within the left perihilar and left basilar regions. As per nurse he is having intervention confusion, stopped lidocaine and they also weaning on pressors norepinephrine and epinephrine. The drain output from left anterior chest is 20ml, mediastinal lateral is 160ml, mediastinal mediastinal is 300ml, right anterior chest is 160 ml. We will continue to follow recommendations from critical care team, and cardiology. 11/10/2024: Patient was seen and evaluated this morning at bedside. The patient is POD 3 s/p CABG. Patient is currently being managed in the ICU. He is not having any symptoms today. His vitals are in the normal range. His labs are normal except for Hb is 10.1, WBC is 14.7, plt is 85, sodium is 147, AST is 156, ALT is 95, APTT is 25.5. ABG shows that his pH is 7.4, lactate is 1.22, bicarb is 31. The drain output from left anterior chest is 170 ml, mediastinal mediastinal is 130ml. We will continue to follow recommendations from critical care team, and cardiology. 11/11/2024: Patient was seen and evaluated this morning at bedside. The patient is POD 4 s/p CABG. He is not having any symptoms today. His vitals are in the normal range. His labs are normal except for hemoglobin is 9.7, WBC is 11.7, platelet is 106, glucose is 107, AST is 87, ALT is 62. ABG shows pH is 7.468, lactic acid is 1.03. We will continue to follow recommendations from critical care team, and cardiology. 11/12/2024: Patient was seen and evaluated in the room 218. The patient is POD 5 s/p CABG. He is having dizziness and ache in the left shoulder. His vitals are in the normal range. His labs are normal except for hemoglobin 9.6, platelets i s 94, AST 75. ABG shows pH 7.487, lactic acid 1.2. Currently he is not on any pressors. Cardiovascular surgery tried to wean Impella. They decreased impella setting to P4 but his blood pressure is low so they went back to P5. Cardiovascular surgery also increased his midodrine dose to 15mg. His chest X- ray showed mild pulmonary vascular congestion. He had a bowel movement and good urine output. He is using incentive spirometry well. We will continue to follow recommendations from the critical Care team and Cardiology. 11/13/2024: Patient was seen and evaluated in the room 218. The patient is POD 6 s/p CABG. He is having dizziness and generalized ache. His vitals are in the normal range. His labs are normal except for Hb is 8.9, calcium is 7.4, glucose is 140. His chest x-ray showed that mild borderline cardiomegaly with median sternotomy with cardiac and aspiration procedure, support lines in satisfactory position, no evidence of airspace consolidation or pulmonary venous congestion. He is restarted on norepinephrine and epinephrine drip and impella at P5 as he is hypotensive and has bradycardia. The nurse told me that she will consult anesthesia for changing the arterial line as his line is not working. He is on heparin drip and off of lovenox. The drain output from left anterior chest is 260 ml, mediastinal mediastinal is 60ml. Hematology was consulted as he is in a hypercoagulable state. 11/14/2024: Patient was seen and evaluated in the room 218. The patient is POD 7 s/p CABG. His vital signs are in the normal range except for blood pressure is 88/64. His labs are normal except for hemoglobin is 8.8, APTT is 62.4, glucose is 133, calcium is 7.5, AST is 61. Chest X-ray showed mild cardiomegaly with median sternotomy with cardiac revascularization procedure, support lines are in satisfactory position. His impella is increased to P7 as he is hypotensive and bradycardic. He is on epinephrine. The drain output from left anterior chest is 80ml and from mediastinal mediastinal is 20ml. Hematology saw the patient and they recommended to start folic acid, vitamin B12, ordered SPEP, UPEP, free light chains. They think that the patient might be having hemolytic anemia which could be the reason for his graft clotting after surgery. 11/15/2024: He was evaluated at the bedside this morning. The patient is POD 8 s/p CABG. He is on Impella support with blood pressure 89/64 with map 72. Remarkable lab is for hemoglobin 9.2. Chest x-ray revealed mildly improved right lower lobe airspace opacity with stable cardiac support device and median sternotomy. His MPOA is encouraged to P8 and weaned off the pressors. Hematology recommending Tatiana test to rule out autoimmune hemolytic anemia. Hematology, CT surgery, critical care and cardiology on the board. Rest of the plan as discussed below. 11/16/2024: He was evaluated at the bedside this morning. The patient is POD 9 s/p CABG. Impella support has been weaned to P5 today. As per Dr. Khan, epi will be turned on at 0.03 mcg/kg/min and Impella performance level will be decreased to p4 tomorrow morning. Today, patient's BP is at 102/62, 79bpm and he is on 3L O2 nasal cannula. He is pending direct tatiana test, SPEP, UPEP and Free Light Chain assay as per hematology. His Hb from today is 8.9. Chest Tube drainage is at 201 ml. Hematology, CT surgery, critical care and cardiology on the board. REVIEW OF SYSTEMS CONSTITUTIONAL: Pain in his left shoulder No fever, chills, or night sweats. NEUROLOGICAL: No headache no sensory and motor deficit. CARDIOVASCULAR: Dizziness Denies any exertional angina, dyspnea on exertion, palpitations. PULMONARY: Denies any shortness of breath, cough, phlegm/sputum, hemoptysis, pleuritic chest pain. GASTROINTESTINAL: Denies nausea, vomiting. Denies pain, tenderness around the abdomen. GENITOURINARY: Denies frequency, urgency, nocturia, hematuria or incontinence. PHYSICAL EXAM GENERAL APPEARANCE: The patient is alert, awake and oriented and bedbound. NEUROLOGICAL: No sensory and motor deficits. CHEST: left anterior chest , mediastinal mediastinal drains are present. Dressing is clean Normal chest expansion. LUNGS: Normal vesicular breath sound. Absence of any rales, rhonchi or any wheezing. CARDIOVASCULAR: Systolic murmur heard over aortic area. Bilateral carotid bruits heard. No JVD. ABDOMEN: Soft nontender, and nondistended. There is no rebound, voluntary guarding, or rigidity. No abdominal bruit heard. GENITOURINARY: No suprapubic tenderness. No costovertebral angle tenderness. EXTREMITIES: Limbs are non-edematous. Vital Signs (last 8hr) Date Time Temp Pulse Resp B/P (MAP) Pulse Ox O2 Delivery O2 Flow Rate FiO2 11/16/24 11:20 79 22 N/Cannula Oximizer Hi LPM 3.0 32 11/16/24 11:18 81 22 11/16/24 06:20 74 22 N/Cannula Oximizer Hi LPM 3.0 32 11/16/24 06:19 72 22 11/16/24 06:15 73 22 92/58 (69) 96 109/60 (76) 11/16/24 06:00 77 12 100/61 (74) 98 11/16/24 05:45 72 23 93/60 (71) 95 104/66 (79) 11/16/24 05:30 77 16 85/63 (70) 11/16/24 05:15 76 21 100/61 (74) 98 92/35 (54) 11/16/24 05:00 75 20 91/58 (69) 97 LABS: Laboratory: Test 11/16/24 07:39 11/16/24 03:58 11/16/24 03:22 11/15/24 10:31 Range/Units Activated Partial Thromboplast Time 55.8 H 26.3-35.5 SEC White Blood Count 6.8 4.8-10.8 K/uL Red Blood Count 2.79 L 4.50-6.20 MIL/uL Hemoglobin 8.9 L 14.0-18.0 g/dL Hematocrit 27.1 L 42-54 % Mean Corpuscular Volume 97.1 79-99 fL Mean Corpuscular Hemoglobin 31.9 27.0-33.0 pg Mean Corpuscular Hemoglobin Concent 32.8 32.0-36.0 g/dL Red Cell Distribution Width 13.3 11.0-15.5 % Platelet Count 257 130-400 K/uL Mean Platelet Volume 10.3 7.5-10.5 fL Nucleated Red Blood Cells 0.0 0.0-0.19 % Sodium Level 140 136-145 mmol/L Potassium Level 3.7 3.5-5.1 mmol/L Chloride Level 107 101-111 mmol/L Carbon Dioxide Level 22 21-32 mmol/L Blood Urea Nitrogen 8 7-18 mg/dL Creatinine 0.9 0.5-1.3 mg/dL Glomerular Filtration Rate Calc 93 >90 mL/min Random Glucose 105 70-105 mg/dL Total Calcium 7.8 L 8.5-10.1 mg/dL Magnesium Level 2.20 1.80-2.40 mg/dL Total Bilirubin 0.4 0.2-1.0 mg/dL Aspartate Amino Transf (AST/SGOT) 44 H 10-37 U/L Alanine Aminotransferase (ALT/SGPT) 33 12-78 U/L Alkaline Phosphatase 70 50-136 U/L Total Protein 6.0 6.0-8.3 g/dL Albumin 2.2 L 3.5-5.0 g/dL Blood Gas Specimen Type Arterial Arterial Blood pH 7.495 H 7.350-7.450 Arterial Blood Partial Pressure CO2 27 L 35-48 mmHg Arterial Blood Partial Pressure O2 86.0 83.0-108.0 mmHg Arterial Blood HCO3 20.3 L 21.0-28.0 mmol/L Arterial Blood Oxygen Saturation 96.3 94.0-98.0 % Arterial Blood Base Excess -2.2 L -2.0-3.0 mmol/L Hemoglobin (Blood Gas) 9.5 L 13.5-17.5 g/dL Sodium (Blood Gas) 137 136-145 MMOL/L Bedside Potassium (Blood Gas) 3.5 3.4-4.5 MMOL/L Bedside Chloride (Blood Gas) 109 H 98-107 MMOL/L Bedside Glucose (Blood Gas) 97 H 65-95 MG/DL Bedside Ionized Calcium (Blood Gas) 1.06 L 1.15-1.33 MMOL/L Bedside Lactic Acid (Blood Gas) 0.97 H 0.36-0.75 MMOL/L Blood Gas Temperature 37.0 35.5-37.0 CELSIUS Blood Gas Flow-by 4.00 0.00-15.00 L/min Blood Gas Vent Mode 4LNC ROOM AIR FiO2 36.0 % Blood Gas Specimen Comment [place] Whole Blood Glucose 120 H 70-110 MG/DL Test 11/15/24 03:13 Range/Units Lactic Acid Level 1.2 0.8-2.5 mmol/L Current Medications Medications (Trade) Dose Ordered Sig/Brittany Route PRN Reason Start Time Stop Time Status Last Admin Dose Admin Acetaminophen (TYLenol 325MG TAB) 650 mg Q4H PRN PO Temp >38.3C(AFTER EXTUBATION) 11/07/24 14:00 12/07/24 13:59 Acetaminophen (TYLenol 325MG TAB) 650 mg Q6H PRN PO TEMPERATURE GREATER THAN 101.5 11/03/24 21:00 11/07/24 14:00 DC 11/06/24 23:00 650 MG Acetaminophen (TYLenol 325MG TAB) 650 mg Q6H PRN PO MILD PAIN (1-3) 11/07/24 14:00 12/07/24 13:59 11/16/24 11:37 650 MG Acetaminophen (TYLenol 650MG SUPPOSITORY) 650 mg Q4H PRN RC Temp >38.3C WHILE INTUBATED 11/07/24 14:00 12/07/24 13:59 Acetaminophen (acetaMINOPHEN) 1,000 mg Q6H IVPB 11/09/24 09:00 11/12/24 08:59 DC 11/12/24 02:11 1,000 MG Acetaminophen (acetaMINOPHEN) 1,000 mg Q6H6 IV 11/07/24 18:00 11/08/24 17:59 DC 11/08/24 18:08 1,000 MG Albumin Human 250 ml @ 0 mls/hr AD PRN IV IF HEMODYNAMICALLY UNSTABLE 11/07/24 14:00 11/08/24 09:57 DC 11/08/24 09:57 125 MLS/HR Albumin Human 250 ml @ 0 mls/hr AD STAT IV 11/15/24 13:09 11/15/24 13:12 DC 11/15/24 13:28 250 MLS/HR Aminocaproic Acid 25009 mg/Sodium Chloride 310 ml @ 25 mls/hr AD IV 11/07/24 14:00 11/08/24 02:23 DC Aminocaproic Acid 75950 mg/Sodium Chloride 480 ml @ 0 mls/hr AD PRN IV BLEEDING CONTROL 11/07/24 11:00 11/07/24 14:03 DC Aspirin (Aspirin 81mg Ec Tab) 81 mg DAILY PO 11/04/24 09:00 12/04/24 08:59 11/16/24 09:14 81 MG Atorvastatin Calcium (LIPItor 40MG) 40 mg HS PO 11/03/24 21:00 11/03/24 20:40 DC Atorvastatin Calcium (LIPItor 40MG) 40 mg HS PO 11/03/24 21:00 11/09/24 07:45 DC 11/07/24 20:15 40 MG Atorvastatin Calcium (LIPItor 40MG) 40 mg HS PO 11/10/24 21:00 12/10/24 20:59 11/15/24 20:45 40 MG Calcium Gluconate (Calcium Gluc 1gm Vial) 1 gm AD PRN IV HYPOCALCEMIA 11/08/24 09:00 11/09/24 07:45 DC 11/08/24 16:36 1 GM Calcium Gluconate 1 gm/Sodium Chloride 60 ml @ 200 mls/hr AD PRN IV HYPOCALCEMIA 11/07/24 14:00 12/07/24 13:59 11/16/24 05:52 200 MLS/HR Cefazolin Sodium (Ancef) 2 gm ONCALL IVPB 11/06/24 22:00 11/07/24 14:00 DC Cefazolin Sodium (Ancef) 2 gm Q8H IVPB 11/07/24 19:00 11/08/24 11:01 DC 11/08/24 11:15 2 GM Clopidogrel Bisulfate (plaVIX 75MG) 75 mg DAILY PO 11/08/24 14:00 12/08/24 13:59 11/16/24 09:14 75 MG Dexmedetomidine/ Sodium Chloride (PRECEdex 400MCG/ 100ML-NS) 400 mcg PROTOCOL IV 11/07/24 14:00 12/07/24 13:59 Dextrose (D50w) 50 ml AD PRN IV HYPOGLYCEMIA PROTOCOL 11/07/24 14:00 12/07/24 13:59 Dextrose/Sodium Bicarbonate 1,025 ml @ 10 mls/hr Q24H IV 11/07/24 19:30 12/07/24 19:29 11/15/24 09:42 10 MLS/HR Docusate Sodium (COLace 100MG CAP) 100 mg BID PO 11/07/24 21:00 11/08/24 10:11 DC 11/07/24 20:15 100 MG Docusate Sodium (COLace 100MG CAP) 100 mg BID PO 11/10/24 09:00 12/10/24 08:59 11/16/24 09:14 100 MG Docusate Sodium (COLace LIQUID 100MG/10ML) 100 mg BID NG 11/08/24 10:30 11/09/24 21:53 DC 11/09/24 20:47 100 MG Enoxaparin Sodium (Lovenox) 30 mg DAILY SQ 11/10/24 09:00 11/13/24 08:38 DC 11/12/24 09:03 30 MG Enoxaparin Sodium (Lovenox) 40 mg DAILY SQ 11/04/24 09:00 11/07/24 13:38 DC 11/05/24 09:06 40 MG Epinephrine HCl 10 mg/Sodium Chloride 250 ml @ 13.948 mls/ hr AD PRN IV POST-OP CARDIOVASCULAR ORDERS 11/07/24 14:00 11/12/24 13:59 DC 11/09/24 19:48 7 MLS/HR Epinephrine HCl 10 mg/Sodium Chloride 250 ml @ 0 mls/hr AD PRN IV TITRATE 11/07/24 11:00 11/07/24 14:02 DC Epinephrine HCl 10 mg/Sodium Chloride 250 ml @ 0 mls/hr PROTOCOL IV 11/12/24 23:30 12/12/24 23:29 11/14/24 03:13 0 MLS/HR Famotidine (Pepcid 20mg Vial) 20 mg BID IV 11/07/24 21:00 11/08/24 08:59 DC 11/08/24 08:11 20 MG Famotidine (Pepcid 20mg Tab) 20 mg DAILY PO 11/04/24 09:00 11/07/24 13:38 DC 11/05/24 09:06 20 MG Folic Acid (FOLic ACID 1 MG TABLET) 1 mg DAILY PO 11/14/24 09:00 12/14/24 08:59 11/16/24 09:14 1 MG Furosemide (LASix 20MG TAB) 20 mg Q12H PO 11/09/24 09:00 12/09/24 08:59 11/16/24 09:14 20 MG Furosemide (LASix 20MG VIAL) 20 mg Q12H IV 11/08/24 09:00 11/09/24 08:59 DC 11/08/24 20:23 20 MG Glucagon (Glucagon 1mg Kit) 1 mg AD PRN IM HYPOGLYCEMIA PROTOCOL 11/07/24 14:00 12/07/24 13:59 Heparin Sodium (Porcine) (HEParin 5,000 UNIT VIAL) *calculation based on ACTUAL B... AD PRN IV HEPARIN PROTOCOL 11/13/24 09:30 12/13/24 09:29 Heparin Sodium/ Dextrose 250 ml @ 0 mls/hr Q6H IV 11/13/24 09:30 12/13/24 09:29 11/16/24 09:13 14.17 MLS/HR Hydralazine HCl (APRESOLine 20MG INJ) 10 mg Q6H PRN IV For:SBP above 160;DBP above 90 11/03/24 21:00 11/07/24 13:38 DC Insulin Human Regular 100 unit/ Sodium Chloride 100 ml @ 0 mls/hr AD IV 11/07/24 14:00 11/09/24 13:59 DC 11/08/24 12:30 4 MLS/HR Ipratropium [place] (AtrovENT UD) 0.5 MG [id number] IH 11/08/24 12:00 12/08/24 11:59 11/16/24 11:18 0.5 MG Lactulose (Constulose 20gm/ 30ml Udcup) 20 gm BID PRN PO CONSTIPATION 11/03/24 21:00 11/07/24 14:00 DC Lactulose (Constulose 20gm/ 30ml Udcup) 20 gm BID PRN PO CONSTIPATION 11/07/24 14:00 12/07/24 13:59 11/11/24 16:43 20 GM Levothyroxine Sodium (SYNTHroid 125MCG TAB) 125 mcg SYN PO 11/09/24 06:30 12/09/24 06:29 11/16/24 06:01 125 MCG Lidocaine HCl/ Dextrose 250 ml @ 0 mls/hr PROTOCOL PRN IV OTHER [SEE ORDER COMMENTS] 11/08/24 21:00 11/09/24 08:37 DC 11/08/24 21:15 7.5 MLS/HR Magnesium Hydroxide (Milk Of Magnesium 30ml) 30 ml DAILY PRN PO CONSTIPATION 11/07/24 14:00 12/07/24 13:59 Magnesium Sulfate 50 ml @ 12.5 mls/hr AD PRN IV MAG LEVEL LESS THAN 2.0 11/07/24 14:00 12/07/24 13:59 11/09/24 05:59 12.5 MLS/HR Metoprolol Tartrate (loprESSOR) 12.5 mg BID PO 11/09/24 09:00 11/11/24 09:39 DC Metoprolol Tartrate (loprESSOR) 50 mg BID PO 11/04/24 21:00 11/07/24 13:38 DC 11/06/24 20:38 50 MG Midodrine (PROAMatine 5 MG TABLET) 10 mg TID PO 11/09/24 21:00 11/11/24 06:58 DC 11/10/24 20:07 10 MG Midodrine (PROAMatine 5 MG TABLET) 15 mg TID PO 11/11/24 09:00 12/11/24 08:59 11/16/24 09:15 15 MG Montelukast Sodium (SinguLAIR) 10 mg HS PO 11/08/24 21:00 12/08/24 20:59 11/15/24 20:45 10 MG Morphine Sulfate (morPHINE 2MG SYG) 0.5 mg Q2H PRN IV MODERATE PAIN (4-6) 11/07/24 14:00 11/08/24 13:59 DC Morphine Sulfate (morPHINE 2MG SYG) 1 mg Q2H PRN IV SEVERE PAIN (7-10) 11/07/24 14:00 11/08/24 13:59 DC Morphine Sulfate (morPHINE 4MG SYG) 2 mg Q4H PRN IVP SEVERE PAIN (7-10) 11/03/24 21:00 11/07/24 13:38 DC 11/04/24 15:49 2 MG Nitroglycerin (Nitroglycerin 1gm Oint) 0.5 inch Q8H TD 11/03/24 21:00 11/07/24 13:38 DC 11/07/24 05:46 0.5 INCH Nitroglycerin/ Dextrose 0 ml @ 0 mls/hr AD IV 11/07/24 14:00 11/10/24 13:59 DC Norepinephrine Bitartrate 250 ml @ 0 mls/hr AD PRN IV TITRATE 11/07/24 11:00 11/07/24 14:02 DC Norepinephrine Bitartrate 250 ml @ 0 mls/hr AD PRN IV POST-OP CARDIOVASCULAR ORDERS 11/07/24 14:00 11/12/24 13:59 DC 11/09/24 17:09 5.6 MLS/HR Norepinephrine Bitartrate 250 ml @ 0 mls/hr PROTOCOL IV 11/12/24 18:30 12/12/24 18:29 11/13/24 08:42 2 MLS/HR Ondansetron HCl (zoFRAN 4MG INJ) 4 mg Q6H PRN IV NAUSEA/VOMITING 11/03/24 21:00 11/07/24 14:00 DC Ondansetron HCl (zoFRAN 4MG INJ) 4 mg Q6H PRN IV NAUSEA/VOMITING 11/07/24 14:00 12/07/24 13:59 11/09/24 21:50 4 MG Pantoprazole Sodium (PROTonix 40MG INJ) 40 mg BID IVP 11/08/24 09:00 12/08/24 08:59 11/16/24 09:13 40 MG Pharmacy Profile Note (Pharmacy Communication) 1 each ONCE MISC 11/13/24 09:00 11/13/24 08:57 DC Piperacillin Sod/ Tazobactam Sod (Zosyn 3.375gm+NS 50ml) 3.375 gm Q8H IV 11/09/24 10:00 11/09/24 09:38 DC Piperacillin Sod/ Tazobactam Sod (Zosyn 3.375gm+NS 50ml) 3.375 gm Q8H IV 11/09/24 10:00 11/19/24 09:59 11/16/24 09:16 3.375 GM Polyethylene Glycol (MIRalax 3350 17 GM POWD.PACK) 17 gm DAILY PO 11/09/24 09:00 12/09/24 08:59 11/16/24 09:13 17 GM Potassium Phosphate 250 ml @ 42 mls/hr AD PRN IV LOW PHOS LEVEL 11/07/24 14:00 12/07/24 13:59 11/08/24 07:22 42 MLS/HR Potassium Chloride 100 ml @ 100 mls/hr AD PRN IV HYPOKALEMIA 11/07/24 14:00 12/07/24 13:59 11/16/24 04:33 100 MLS/HR Potassium Chloride (K-Dur/Klor-Con 20meq) 20 meq AD PRN PO POTASSIUM PROTOCOL 11/14/24 00:30 12/14/24 00:29 11/15/24 09:01 20 MEQ Potassium Chloride (KCl 10% Elixir 20meq/15ml) 20 meq AD PRN PO POTASSIUM PROTOCOL 11/14/24 00:30 12/14/24 00:29 11/14/24 00:17 20 MEQ Propofol 100 ml @ 0 mls/hr AD PRN IV SEDATION 11/07/24 14:00 11/11/24 13:59 DC Sodium Bicarbonate (Sodium Bicarb 50meq 50ml Vial) 50 meq AD PRN IV OTHER[SEE DOSING INSTRUCTIONS] 11/07/24 14:00 11/10/24 13:59 DC 11/08/24 00:54 50 MEQ Sodium Chloride 500 ml @ 0 mls/hr AD IV 11/07/24 14:00 12/07/24 13:59 11/10/24 00:41 3 MLS/HR Sodium Chloride 1,000 ml @ 10 mls/hr ONCE IV 11/07/24 14:00 11/08/24 13:59 DC 11/07/24 20:11 10 MLS/HR Sodium Chloride 1,000 ml @ 100 mls/hr Q10H IV 11/06/24 12:30 11/06/24 15:29 DC Sodium Chloride (NS Flush 10ml) 10 ml Q8H PRN IVP IV LINE FLUSH 11/07/24 14:00 12/07/24 13:59 Sucralfate (Carafate) 1 gm TID PO 11/08/24 21:00 12/08/24 20:59 11/16/24 09:14 1 GM Tramadol HCl (UltRAM) 25 mg Q6H PRN PO MODERATE PAIN (4-6) 11/07/24 14:00 11/09/24 08:37 DC Tramadol HCl (UltRAM) 50 mg Q6H PRN PO SEVERE PAIN (7-10) 11/07/24 14:00 11/09/24 08:37 DC 11/08/24 23:30 50 MG Vitamin B Complex (Vitamin B-12) 1,000 mcg DAILY IM 11/07/24 09:00 11/13/24 08:59 DC 11/12/24 09:03 1,000 MCG Vitamin B Complex (Vitamin B-12) 1,000 mcg DAILY PO 11/14/24 09:00 12/14/24 08:59 11/16/24 09:14 1,000 MCG DIAGNOSTICS / RADIOLOGY: [ ] ASSESSMENT: Coronary artery disease, POA, s/p CABG 3v and redo sternotomy with redo of graft failure now s/p CABG with 4v Hyperlipidemia, POA Hypothyroidism, POA Peripheral artery disease, suspected Carotid artery stenosis PLAN: Coronary artery disease, POA s/p CABG 3v and redo sternotomy with redo of graft failure now s/p CABG with 4v * Administer aspirin 325 mg p.o. now and then continue aspirin 81 mg p.o. daily * Troponin every 6 hours, serial troponin levels are 10-21-11-11. * Supplemental oxygen as needed to maintain SpO2 greater than 94% * Monitor for recurrence of chest pain, arrhythmias, or hemodynamic changes * Electrocardiogram was done which is normal. * A 2D Echo has been ordered due to patients history of chest pain on exertion and rest. * A cardiology consult has been placed for evaluation of CAD in patient with exertional chest pain and vascular disease. 11/04/24 * Echocardiogram was done which revealed aortic valve: trileaflet, mildly sclerotic, and opens well. * Pending Coronary CTA reports. * Lipid panels has been ordered to assess Cardiovascular risks. Results unremarkable. * In coronary CT angiography there is mixed calcified and noncalcified plaque in the proximal LAD with 80-90% stenosis. Left circumflex coronary artery: Normal caliber, nondominant and gives rise to a large OM branch. There is mixed calcified and noncalcified plaque in the mid LCx with 80-90% stenosis. * CAD-RAD of 4B. * Left heart catheterization with selective right and left coronary angiography was performed which showed critical left main disease. Severe ostial RCA stenosis. 11/06/24 * He complaints of headache 8/10 of intensity after the administration of Nitroglycerin. Tylenol has been administered. Closely monitoring the patient. * Cardiac catheterization demonstrated a very tight left main lesion and the patient is referred for surgical revascularization. * Patient is POD 9 S/P CABG, patient is being managed in the ICU per protocol. * Recent ABG shows lactic acid is 1.21. * epinephrine drip was restarted at 0.03 mcg/kg/min as per Dr. Khan today. * His impella setting is decreased to be P5 as per Cardiology. * We will continue to following Cardiology and critical care recommendations. * He is on heparin drip and off lovenox. * Hematology saw the patient and they recommended to start folic acid, vitamin B12, ordered SPEP, UPEP, free light chains. They think that the patient might be having hemolytic anemia which could be the reason for his graft clotting after surgery. * Cardiology plan to wean him of the pressors than impella. Peripheral vascular disease, Suspected * Patient has history of exertional bilateral leg pain * Diminished peripheral pulses * A SERA has been ordered due to the patients complaint of bilateral lower extremity claudication, and numbness/tingling in bilateral lower extremities. * Clear aspirin 81 mg daily and statin 40mg * Encouraged supervised exercise therapy for claudication * Counseled on continued smoking cessation 11/04/24 Peripheral Neuropathy * Vitamin B12 has been ordered to rule out peripheral neuropathy.11/05/24 * Complained of numbness and tingling in his limbs. * Vitamin B12 level was measured which showed 173L. * Patient has been started on vitamin B12 supplement 1000 mcg for 6 days. Carotid artery stenosis * Presence of bilateral carotid bruit on exam, suspicion for significant stenosis * Carotid Duplex ultrasound has been done, awaiting reports * Risk factor modification: Smoking cessation, BP control, glycemic control. 11/04/24 * Carotid artery ultrasound showed Bilateral ICA/CCA ratio more than 4.0 suggesting more than 70% stenosis. 11/05/24 * Cardiology recommended CT/MR angiogram when stable from surgical standpoint Hyperlipidemia * Continue home statin therapy atorvastatin 40 mg * Reinforce low-cholesterol, heart healthy diet (limit saturated fats, increase fiber, fruits and vegetables) * Encouraged regular physical activity as tolerated * Monitor lipid panel * Outpatient follow up with PCP/Cardiology for long-term lipid management and cardiovascular risks reduction Supportive measures * Start patient on GI prophylaxis * DVT prophylaxis * Monitor morning labs CBC and BMP daily * He is on clear liquid diet Hypothyroidism * Continue home dose of levothyroxine at 125 mcg daily * TSH 1.33. ATTESTATION BY PHYSICIAN I have seen and examined the patient. I reviewed the documentation, medical decision making, and treatment plan as noted by the resident above. I agree with the findings and plan of care. ALISA POLLARD MD, MUHAMMAD H MD Nov 16, 2024 12:57
--- NOTE | 2024-11-16 16:33 | PN ---
Patient seen and examined, all labs and imaging have been reviewed, patient is sitting comfortably at bedside chair. Continues with the Impella, P5 Patient has clotted off his 4th a line. Anesthesia was brought into place of 5th. Hematology has also been requested to evaluate patient for his clotting. Patient is comfortable, he is reporting no pain or discomfort no chest pain or shortness of breath. No abdominal complaints. Good saturations on nasal cannula 2 L He is alert and oriented, Urine output There is plan to for removal of Impella. PHYSICAL EXAM: GENERAL: alert, weak, awake oriented x 3 HEENT: EOMI, Sclera non icteric, moist mucosa NECK: Supple, no JVD, trachea midline right IJ. Subclavian Impella 5.5 LUNGS: Rhonchi to right lower lobes. No wheezes HEART: Regular rate and rhythm. Normal S1 and S2, without murmurs mid incision line tenderness. Dressing clean dry and intact. ABD: Abdomen soft, nontender. Bowel sounds present EXT: No clubbing cyanosis or edema. Left femoral sheath. NEURO: Alert and oriented to person, follows commands Assessment 1. Anemia 2. Thrombocytopenia 3.CAD s/p CABG x 3+1 w/ redo on 11/07/24 Impella 5 x 5 4. ELSA 5. Hyperlipidemia 6. Sclerotic nodule on the non coronary cusp on 2D echo Normal ventricular diastolic function with LVEF of 60-65% on 2D echo 11/05/24 7. Former smoker Plan: 1. Peripheral blood smear showed red blood cells to be normocytic normochromic. There was no fragment cell or schistocyte. There is no teardrop cell. There is no rouleaux phenomena. There is no pelger-Huet cell. White blood cell with no blasts. Platelet was normal in morphology and count. 2. There was hypersegmented neutrophils. This patient to be started on folic acid 1 mg p.o. daily and vitamin B12 1000 mcg p.o. daily. 3. 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 We will ask for direct Juan to be done on this patient. 4. 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 We will ask for SPEP, UPEP and free light chain. If there is monoclonal protein we will do a bone marrow biopsy. 5. 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 Continue care as per cardiothoracic surgery Vitals/Labs Vital Signs Date Time Temp Pulse Resp B/P (MAP) Pulse Ox O2 Delivery O2 Flow Rate FiO2 11/16/24 16:00 98.8 11/16/24 15:30 81 87/71 (76) 97 11/16/24 15:25 20 11/16/24 12:00 Nasal Cannula* 4 N/A N/C Oxymizer Hi LPM* Laboratory Tests 11/15/24 19:27 11/16/24 03:58 Medications Current Medications Aspirin 325 mg ONCE ONCE PO Last administered on 11/03/24at 17:53; Start 11/03/24 at 18:00; Stop 11/03/24 at 18:01; Status DC Acetaminophen 650 mg Q6H PRN PO Last administered on 11/06/24at 23:00; Start 11/03/24 at 21:00; Stop 11/07/24 at 14:00; Status DC Aspirin 81 mg DAILY PO Last administered on 11/16/24at 09:14; Start 11/04/24 at 09:00; Stop 12/04/24 at 08:59 Atorvastatin Calcium 40 mg HS PO; Start 11/03/24 at 21:00; Stop 11/03/24 at 20:40; Status DC Enoxaparin Sodium 40 mg DAILY SQ Last administered on 11/05/24at 09:06; Start 11/04/24 at 09:00; Stop 11/07/24 at 13:38; Status DC Famotidine 20 mg DAILY PO Last administered on 11/05/24at 09:06; Start 11/04/24 at 09:00; Stop 11/07/24 at 13:38; Status DC Hydralazine HCl 10 mg Q6H PRN IV; Start 11/03/24 at 21:00; Stop 11/07/24 at 13:38; Status DC Lactulose 20 gm BID PRN PO; Start 11/03/24 at 21:00; Stop 11/07/24 at 14:00; Status DC Morphine Sulfate 2 mg Q4H PRN IVP Last administered on 11/04/24at 15:49; Start 11/03/24 at 21:00; Stop 11/07/24 at 13:38; Status DC Nitroglycerin 0.5 inch Q8H TD Last administered on 11/07/24at 05:46; Start 11/03/24 at 21:00; Stop 11/07/24 at 13:38; Status DC Ondansetron HCl 4 mg Q6H PRN IV; Start 11/03/24 at 21:00; Stop 11/07/24 at 14:00; Status DC Atorvastatin Calcium 40 mg HS PO Last administered on 11/07/24at 20:15; Start 11/03/24 at 21:00; Stop 11/09/24 at 07:45; Status DC Metoprolol Tartrate 50 mg BID PO Last administered on 11/06/24at 20:38; Start 11/04/24 at 21:00; Stop 11/07/24 at 13:38; Status DC Iohexol 35,000 mg STK-MED ONCE IV; Start 11/05/24 at 11:05; Stop 11/05/24 at 11:05; Status DC Sodium Chloride 1,000 ml @ 100 mls/hr Q10H ONCE IV Last administered on 11/05/24at 14:03; Start 11/05/24 at 13:30; Stop 11/05/24 at 23:29; Status DC Lidocaine HCl 20 ml STK-MED ONCE .ROUTE; Start 11/06/24 at 11:05; Stop 11/06/24 at 11:05; Status DC Iohexol 35,000 mg STK-MED ONCE IV; Start 11/06/24 at 11:05; Stop 11/06/24 at 11:06; Status DC Heparin Sodium (Porcine) 10,000 unit STK-MED ONCE .ROUTE; Start 11/06/24 at 11:05; Stop 11/06/24 at 11:06; Status DC Heparin Sodium/ Sodium Chloride 1,000 ml @ As Directed STK-MED ONCE IV; Start 11/06/24 at 11:06; Stop 11/06/24 at 11:06; Status DC Nitroglycerin 50 mg STK-MED ONCE .ROUTE; Start 11/06/24 at 11:06; Stop 11/06/24 at 11:06; Status DC Verapamil HCl 5 mg STK-MED ONCE .ROUTE; Start 11/06/24 at 11:06; Stop 11/06/24 at 11:06; Status DC Fentanyl Citrate 100 mcg STK-MED ONCE .ROUTE; Start 11/06/24 at 11:35; Stop 11/06/24 at 11:36; Status DC Midazolam HCl 2 mg STK-MED ONCE .ROUTE; Start 11/06/24 at 11:35; Stop 11/06/24 at 11:36; Status DC Vitamin B Complex 1,000 mcg DAILY IM Last administered on 11/12/24at 09:03; Start 11/07/24 at 09:00; Stop 11/13/24 at 08:59; Status DC Sodium Chloride 1,000 ml @ 100 mls/hr Q10H IV; Start 11/06/24 at 12:30; Stop 11/06/24 at 15:29; Status DC Cefazolin Sodium 2 gm ONCALL IVPB; Start 11/06/24 at 22:00; Stop 11/07/24 at 14:00; Status DC Epinephrine HCl 10 mg/Sodium Chloride 250 ml @ 0 mls/hr AD PRN IV; Start 11/07/24 at 11:00; Stop 11/07/24 at 14:02; Status DC Norepinephrine Bitartrate 250 ml @ 0 mls/hr AD PRN IV; Start 11/07/24 at 11:00; Stop 11/07/24 at 14:02; Status DC Aminocaproic Acid 29015 mg/Sodium Chloride 480 ml @ 0 mls/hr AD PRN IV; Start 11/07/24 at 11:00; Stop 11/07/24 at 14:03; Status DC Metoprolol Tartrate 25 mg ONCE ONCE PO Last administered on 11/07/24at 11:15; Start 11/07/24 at 11:30; Stop 11/07/24 at 11:31; Status DC Nitroglycerin/ Dextrose 1 ml @ As Directed STK-MED ONCE .ROUTE; Start 11/07/24 at 11:25; Stop 11/07/24 at 11:25; Status DC Acetaminophen 1,000 mg Q6H6 IV Last administered on 11/08/24at 18:08; Start 11/07/24 at 18:00; Stop 11/08/24 at 17:59; Status DC Aspirin 81 mg ONCE ONCE NG; Start 11/07/24 at 17:00; Stop 11/07/24 at 17:01; Status DC Docusate Sodium 100 mg BID PO Last administered on 11/07/24at 20:15; Start 11/07/24 at 21:00; Stop 11/08/24 at 10:11; Status DC Lactulose 20 gm BID PRN PO Last administered on 11/11/24at 16:43; Start 11/07/24 at 14:00; Stop 12/07/24 at 13:59 Furosemide 20 mg Q12H PO Last administered on 11/16/24at 09:14; Start 11/09/24 at 09:00; Stop 12/09/24 at 08:59 Furosemide 20 mg Q12H IV Last administered on 11/08/24at 20:23; Start 11/08/24 at 09:00; Stop 11/09/24 at 08:59; Status DC Enoxaparin Sodium 30 mg DAILY SQ Last administered on 11/12/24at 09:03; Start 11/10/24 at 09:00; Stop 11/13/24 at 08:38; Status DC Metoprolol Tartrate 12.5 mg BID PO; Start 11/09/24 at 09:00; Stop 11/11/24 at 09:39; Status DC Magnesium Hydroxide 30 ml DAILY PRN PO; Start 11/07/24 at 14:00; Stop 12/07/24 at 13:59 Dexmedetomidine/ Sodium Chloride 400 mcg PROTOCOL IV; Start 11/07/24 at 14:00; Stop 12/07/24 at 13:59 Acetaminophen 650 mg Q6H PRN PO Last administered on 11/16/24at 11:37; Start 11/07/24 at 14:00; Stop 12/07/24 at 13:59 Sodium Chloride 1,000 ml @ 10 mls/hr ONCE IV Last administered on 11/07/24at 20:11; Start 11/07/24 at 14:00; Stop 11/08/24 at 13:59; Status DC Sodium Chloride 10 ml Q8H PRN IVP; Start 11/07/24 at 14:00; Stop 12/07/24 at 13:59 Morphine Sulfate 0.5 mg Q2H PRN IV; Start 11/07/24 at 14:00; Stop 11/08/24 at 13:59; Status DC Morphine Sulfate 1 mg Q2H PRN IV; Start 11/07/24 at 14:00; Stop 11/08/24 at 13:59; Status DC Acetaminophen 650 mg Q4H PRN RC; Start 11/07/24 at 14:00; Stop 12/07/24 at 13:59 Ondansetron HCl 4 mg Q6H PRN IV Last administered on 11/09/24at 21:50; Start 11/07/24 at 14:00; Stop 12/07/24 at 13:59 Sodium Chloride 500 ml @ 0 mls/hr AD IV Last administered on 11/10/24at 00:41; Start 11/07/24 at 14:00; Stop 12/07/24 at 13:59 Nitroglycerin/ Dextrose 0 ml @ 0 mls/hr AD IV; Start 11/07/24 at 14:00; Stop 11/10/24 at 13:59; Status DC Propofol 100 ml @ 0 mls/hr AD PRN IV; Start 11/07/24 at 14:00; Stop 11/11/24 at 13:59; Status DC Norepinephrine Bitartrate 250 ml @ 0 mls/hr AD PRN IV Last administered on 11/09/24at 17:09; Start 11/07/24 at 14:00; Stop 11/12/24 at 13:59; Status DC Epinephrine HCl 10 mg/Sodium Chloride 250 ml @ 13.948 mls/ hr AD PRN IV Last administered on 11/09/24at 19:48; Start 11/07/24 at 14:00; Stop 11/12/24 at 13:59; Status DC Aminocaproic Acid 97577 mg/Sodium Chloride 310 ml @ 25 mls/hr AD IV; Start 11/07/24 at 14:00; Stop 11/08/24 at 02:23; Status DC Calcium Gluconate 1 gm/Sodium Chloride 60 ml @ 200 mls/hr AD PRN IV Last administered on 11/16/24at 05:52; Start 11/07/24 at 14:00; Stop 12/07/24 at 13:59 Magnesium Sulfate 50 ml @ 12.5 mls/hr AD PRN IV Last administered on 11/09/24at 05:59; Start 11/07/24 at 14:00; Stop 12/07/24 at 13:59 Potassium Chloride 100 ml @ 100 mls/hr AD PRN IV Last administered on 11/16/24at 04:33; Start 11/07/24 at 14:00; Stop 12/07/24 at 13:59 Potassium Phosphate 250 ml @ 42 mls/hr AD PRN IV Last administered on 11/08/24at 07:22; Start 11/07/24 at 14:00; Stop 12/07/24 at 13:59 Albumin Human 250 ml @ 0 mls/hr AD PRN IV Last administered on 11/08/24at 09:57; Start 11/07/24 at 14:00; Stop 11/08/24 at 09:57; Status DC Acetaminophen 650 mg Q4H PRN PO; Start 11/07/24 at 14:00; Stop 12/07/24 at 13:59 Insulin Human Regular 100 unit/ Sodium Chloride 100 ml @ 0 mls/hr AD IV Last administered on 11/08/24at 12:30; Start 11/07/24 at 14:00; Stop 11/09/24 at 13:59; Status DC Cefazolin Sodium 2 gm Q8H IVPB Last administered on 11/08/24at 11:15; Start 11/07/24 at 19:00; Stop 11/08/24 at 11:01; Status DC Tramadol HCl 25 mg Q6H PRN PO; Start 11/07/24 at 14:00; Stop 11/09/24 at 08:37; Status DC Tramadol HCl 50 mg Q6H PRN PO Last administered on 11/08/24at 23:30; Start 11/07/24 at 14:00; Stop 11/09/24 at 08:37; Status DC Famotidine 20 mg BID IV Last administered on 11/08/24at 08:11; Start 11/07/24 at 21:00; Stop 11/08/24 at 08:59; Status DC Sodium Bicarbonate 50 meq AD PRN IV Last administered on 11/08/24at 00:54; Start 11/07/24 at 14:00; Stop 11/10/24 at 13:59; Status DC Dextrose 50 ml AD PRN IV; Start 11/07/24 at 14:00; Stop 12/07/24 at 13:59 Glucagon 1 mg AD PRN IM; Start 11/07/24 at 14:00; Stop 12/07/24 at 13:59 Protamine Sulfate 250 mg STK-MED ONCE IV; Start 11/07/24 at 14:25; Stop 11/07/24 at 14:26; Status DC Lidocaine HCl 100 mg STK-MED ONCE .ROUTE; Start 11/07/24 at 14:25; Stop 11/07/24 at 14:26; Status DC Heparin Sodium (Porcine) 10,000 unit STK-MED ONCE .ROUTE; Start 11/07/24 at 14:26; Stop 11/07/24 at 14:26; Status DC Epinephrine HCl 1 mg STK-MED ONCE .ROUTE; Start 11/07/24 at 14:26; Stop 11/07/24 at 14:26; Status DC Sodium Bicarbonate 200 ml @ As Directed STK-MED ONCE .ROUTE; Start 11/07/24 at 14:26; Stop 11/07/24 at 14:26; Status DC Norepinephrine Bitartrate 4 mg STK-MED ONCE IV; Start 11/07/24 at 14:26; Stop 11/07/24 at 14:26; Status DC Propofol 200 mg STK-MED ONCE IV; Start 11/07/24 at 14:26; Stop 11/07/24 at 14:26; Status DC Fentanyl Citrate 1,000 mcg STK-MED ONCE IJ; Start 11/07/24 at 14:26; Stop 11/07/24 at 14:27; Status DC Midazolam HCl 2 mg STK-MED ONCE .ROUTE; Start 11/07/24 at 14:26; Stop 11/07/24 at 14:27; Status DC Rocuronium Mulberry 50 mg STK-MED ONCE .ROUTE; Start 11/07/24 at 14:27; Stop 11/07/24 at 14:27; Status DC Ketamine HCl 50 mg STK-MED ONCE .ROUTE; Start 11/07/24 at 14:31; Stop 11/07/24 at 14:31; Status DC Cefazolin Sodium 1 gm STK-MED ONCE .ROUTE Last administered on 11/07/24at 15:00; Start 11/07/24 at 14:55; Stop 11/07/24 at 14:56; Status DC Heparin Sodium/ Sodium Chloride 500 ml @ As Directed STK-MED ONCE IV; Start 11/07/24 at 14:57; Stop 11/07/24 at 14:57; Status DC Papaverine HCl 60 mg STK-MED ONCE .ROUTE Last administered on 11/07/24at 15:51; Start 11/07/24 at 14:57; Stop 11/07/24 at 14:57; Status DC Cefazolin Sodium 1 gm STK-MED ONCE .ROUTE Last administered on 11/07/24at 15:49; Start 11/07/24 at 15:46; Stop 11/07/24 at 15:46; Status DC Amiodarone HCl 150 mg STK-MED ONCE .ROUTE; Start 11/07/24 at 17:06; Stop 11/07/24 at 17:06; Status DC Amiodarone HCL/ Dextrose 100 ml @ As Directed STK-MED ONCE .ROUTE; Start 11/07/24 at 17:08; Stop 11/07/24 at 17:09; Status DC Cardioplegic Solution 0 ml @ As Directed STK-MED ONCE IV; Start 11/07/24 at 17:13; Stop 11/07/24 at 17:13; Status DC Heparin Sodium (Porcine) 10,000 unit STK-MED ONCE .ROUTE; Start 11/07/24 at 17:15; Stop 11/07/24 at 17:15; Status DC Sodium Bicarbonate 50 ml @ As Directed STK-MED ONCE .ROUTE; Start 11/07/24 at 17:26; Stop 11/07/24 at 17:26; Status DC Sodium Bicarbonate 200 ml @ As Directed STK-MED ONCE .ROUTE; Start 11/07/24 at 17:36; Stop 11/07/24 at 17:36; Status DC Midazolam HCl 5 mg STK-MED ONCE .ROUTE; Start 11/07/24 at 17:57; Stop 11/07/24 at 17:57; Status DC Sodium Bicarbonate 150 ml @ As Directed STK-MED ONCE .ROUTE; Start 11/07/24 at 18:06; Stop 11/07/24 at 18:06; Status DC Amiodarone HCL/ Dextrose 100 ml @ As Directed STK-MED ONCE .ROUTE; Start 11/07/24 at 18:25; Stop 11/07/24 at 18:25; Status DC Cefazolin Sodium 1 gm STK-MED ONCE .ROUTE; Start 11/07/24 at 18:43; Stop 11/07/24 at 18:43; Status DC Ketamine HCl 50 mg STK-MED ONCE .ROUTE; Start 11/07/24 at 18:56; Stop 11/07/24 at 18:56; Status DC Ephedrine Sulfate 50 mg STK-MED ONCE .ROUTE; Start 11/07/24 at 18:58; Stop 11/07/24 at 18:59; Status DC Lidocaine HCl/ Dextrose 250 ml @ As Directed STK-MED ONCE IV Last administered on 11/07/24at 20:08; Start 11/07/24 at 19:02; Stop 11/07/24 at 19:02; Status DC Dextrose/Sodium Bicarbonate 1,025 ml @ 10 mls/hr Q24H IV Last administered on 11/15/24at 09:42; Start 11/07/24 at 19:30; Stop 12/07/24 at 19:29 Calcium Gluconate 1 gm AD PRN IV Last administered on 11/08/24at 16:36; Start 11/08/24 at 09:00; Stop 11/09/24 at 07:45; Status DC Pantoprazole Sodium 40 mg BID IVP Last administered on 11/16/24at 09:13; Start 11/08/24 at 09:00; Stop 12/08/24 at 08:59 Montelukast Sodium 10 mg HS PO Last administered on 11/15/24at 20:45; Start 11/08/24 at 21:00; Stop 12/08/24 at 20:59 Ipratropium Mulberry 0.5 MG [id number] IH Last administered on 11/16/24at 11:18; Start 11/08/24 at 12:00; Stop 12/08/24 at 11:59 Polyethylene Glycol 17 gm DAILY PO Last administered on 11/16/24at 09:13; Start 11/09/24 at 09:00; Stop 12/09/24 at 08:59 Polyethylene Glycol 17 gm STK-MED ONCE .ROUTE; Start 11/08/24 at 10:01; Stop 11/08/24 at 10:02; Status DC Docusate Sodium 100 mg BID NG Last administered on 11/09/24at 20:47; Start 11/08/24 at 10:30; Stop 11/09/24 at 21:53; Status DC Levothyroxine Sodium 125 mcg SYN PO Last administered on 11/16/24at 06:01; Start 11/09/24 at 06:30; Stop 12/09/24 at 06:29 Clopidogrel Bisulfate 75 mg DAILY PO Last administered on 11/16/24at 09:14; Start 11/08/24 at 14:00; Stop 12/08/24 at 13:59 Sucralfate 1 gm TID PO Last administered on 11/16/24at 14:34; Start 11/08/24 at 21:00; Stop 12/08/24 at 20:59 Lidocaine HCl/ Dextrose 250 ml @ 0 mls/hr PROTOCOL PRN IV Last administered on 11/08/24at 21:15; Start 11/08/24 at 21:00; Stop 11/09/24 at 08:37; Status DC Metoclopramide HCl 5 mg ONCE ONCE IVP Last administered on 11/09/24at 00:22; Start 11/09/24 at 00:30; Stop 11/09/24 at 00:31; Status DC Acetaminophen 100 ml @ As Directed STK-MED ONCE .ROUTE; Start 11/09/24 at 07:08; Stop 11/09/24 at 07:08; Status DC Acetaminophen 1,000 mg ONCE ONCE IVPB Last administered on 11/09/24at 07:47; Start 11/09/24 at 08:00; Stop 11/09/24 at 08:01; Status DC Acetaminophen 1,000 mg Q6H IVPB Last administered on 11/12/24at 02:11; Start 11/09/24 at 09:00; Stop 11/12/24 at 08:59; Status DC Lidocaine/ Prilocaine 1 appl ONCE ONCE TP Last administered on 11/09/24at 09:49; Start 11/09/24 at 09:30; Stop 11/09/24 at 09:33; Status DC Piperacillin Sod/ Tazobactam Sod 3.375 gm Q8H IV Last administered on 11/16/24at 09:16; Start 11/09/24 at 10:00; Stop 11/19/24 at 09:59 Piperacillin Sod/ Tazobactam Sod 3.375 gm Q8H IV; Start 11/09/24 at 10:00; Stop 11/09/24 at 09:38; Status DC Midodrine 10 mg TID PO Last administered on 11/10/24at 20:07; Start 11/09/24 at 21:00; Stop 11/11/24 at 06:58; Status DC Docusate Sodium 100 mg BID PO Last administered on 11/16/24at 09:14; Start 11/10/24 at 09:00; Stop 12/10/24 at 08:59 Calcium Chloride 1,000 mg STK-MED ONCE IVP; Start 11/03/24 at 12:28; Stop 11/10/24 at 12:31; Status DC Albumin Human 50 ml @ As Directed STK-MED ONCE IV; Start 11/03/24 at 12:28; Stop 11/10/24 at 12:31; Status DC Heparin Sodium (Porcine) 10,000 unit STK-MED ONCE IV; Start 11/03/24 at 12:28; Stop 11/10/24 at 12:31; Status DC Lidocaine HCl 5 mg STK-MED ONCE IVP; Start 11/03/24 at 12:28; Stop 11/10/24 at 12:31; Status DC Magnesium Sulfate 1 gm STK-MED ONCE IM; Start 11/03/24 at 12:28; Stop 11/10/24 at 12:31; Status DC Mannitol 12.5 gm STK-MED ONCE IV; Start 11/03/24 at 12:28; Stop 11/10/24 at 12:31; Status DC Norepinephrine Bitartrate 1 mg STK-MED ONCE IV; Start 11/03/24 at 12:28; Stop 11/10/24 at 12:31; Status DC Sodium Bicarbonate 50 meq STK-MED ONCE IVP; Start 11/03/24 at 12:28; Stop 11/10/24 at 12:31; Status DC Atorvastatin Calcium 40 mg HS PO Last administered on 11/15/24at 20:45; Start 11/10/24 at 21:00; Stop 12/10/24 at 20:59 Midodrine 15 mg TID PO Last administered on 11/16/24at 14:34; Start 11/11/24 at 09:00; Stop 12/11/24 at 08:59 Lidocaine HCl 20 ml STK-MED ONCE .ROUTE Last administered on 11/12/24at 10:06; Start 11/12/24 at 09:24; Stop 11/12/24 at 09:24; Status DC Norepinephrine Bitartrate 250 ml @ 0 mls/hr PROTOCOL IV Last administered on 11/13/24at 08:42; Start 11/12/24 at 18:30; Stop 12/12/24 at 18:29 Epinephrine HCl 10 mg/Sodium Chloride 250 ml @ 0 mls/hr PROTOCOL IV Last administered on 11/14/24at 03:13; Start 11/12/24 at 23:30; Stop 12/12/24 at 23:29 Heparin Sodium (Porcine) *calculation based on ACTUAL B... AD PRN IV; Start 11/13/24 at 09:30; Stop 12/13/24 at 09:29 Heparin Sodium/ Dextrose 250 ml @ 0 mls/hr Q6H IV Last administered on 11/16/24at 09:13; Start 11/13/24 at 09:30; Stop 12/13/24 at 09:29 Pharmacy Profile Note 1 each ONCE MISC; Start 11/13/24 at 09:00; Stop 11/13/24 at 08:57; Status DC Lidocaine HCl 20 ml STK-MED ONCE .ROUTE Last administered on 11/13/24at 10:24; Start 11/13/24 at 09:10; Stop 11/13/24 at 09:11; Status DC Lidocaine HCl ONCE ONCE INJ; Start 11/13/24 at 10:00; Stop 11/13/24 at 10:01; Status DC Folic Acid 1 mg DAILY PO Last administered on 11/16/24at 09:14; Start 11/14/24 at 09:00; Stop 12/14/24 at 08:59 Vitamin B Complex 1,000 mcg DAILY PO Last administered on 11/16/24at 09:14; Start 11/14/24 at 09:00; Stop 12/14/24 at 08:59 Iron Sucrose 100 mg ONCE ONCE IV; Start 11/13/24 at 13:30; Stop 11/13/24 at 13:24; Status DC Potassium Chloride 20 meq AD PRN PO Last administered on 11/14/24at 00:17; Start 11/14/24 at 00:30; Stop 12/14/24 at 00:29 Potassium Chloride 20 meq AD PRN PO Last administered on 11/15/24at 09:01; Start 11/14/24 at 00:30; Stop 12/14/24 at 00:29 Albumin Human 250 ml @ 0 mls/hr AD STAT IV Last administered on 11/15/24at 13:28; Start 11/15/24 at 13:09; Stop 11/15/24 at 13:12; Status TAINA DIAZ MD Nov 16, 2024 16:33
--- NOTE | 2024-11-16 21:03 | HMCIMG ---
EXAM: XR Chest, 1 View. CLINICAL HISTORY: 69-year-old male pleural pain. COMPARISON: XR Chest 04:21 11/15/2024. FINDINGS: LUNGS: Left side chest not well visualized, consider repeat frontal view of the left side chest. No consolidation. PLEURAL SPACES: No pleural effusion or pneumothorax. HEART: The heart size is normal. BONES: No acute osseous abnormality. LINES AND TUBES: Right internal jugular central line tip in the SVC. Overall: Overall similar compared to prior. IMPRESSION: 1. No acute findings. 2. Left side chest not well visualized, consider repeat frontal view. 3. Similar to prior XR Chest 04:21 11/15/24 /[place]
[2024-11-17] VITALS (100 sets, daily range): BP systolic 65–241; BP diastolic 34–295; PULSE 67–92; RESP 10–29; TEMP 97.6–98.4; O2SAT 93–98
[2024-11-17 05:23] LABS: NUCLEATED RED BLOOD CELLS 0.0 % (0.0-0.19); PLATELET COUNT (AUTO) 398.0 K/uL (130-400); RED BLOOD CELL COUNT(AUTO) 2.69 MIL/uL (4.50-6.20); RED CELL DISTRIBUTION WIDTH 13.5 % (11.0-15.5); WHITE BLOOD COUNT (AUTO) 11.2 K/uL (4.8-10.8)
[2024-11-17 05:43] LABS: ASPARTATE AMINOTRANSFERASE 35.0 U/L (10-37); CREATININE 1.0 mg/dL (0.5-1.3); GLOMERULAR FILTR. RATE CALC 82.0 mL/min (>90); GLUCOSE,RANDOM 146.0 mg/dL (70-105); SODIUM SERUM 138.0 mmol/L (136-145); TOTAL PROTEIN, SERUM 6.2 g/dL (6.0-8.3); UREA NITROGEN, BLOOD 9.0 mg/dL (7-18)
--- NOTE | 2024-11-17 07:09 | PN ---
TIME: 11 a.m. SUBJECTIVE: The patient is a 69-year-old gentleman status post coronary artery bypass grafting with Impella assist device. He remained stable in the ICU. No major events overnight. Still at P6 on the Impella and on low-dose epinephrine. PHYSICAL EXAMINATION: NEUROLOGIC: Alert and oriented with no deficits. CARDIAC: S1 and S2, regular rate and rhythm. RESPIRATORY: Clear to auscultation bilaterally. CHEST: Incision is clean, dry, and intact. ASSESSMENT AND PLAN: Coronary artery disease, status post coronary artery bypass grafting, on aspirin, statin, beta-betty. Impella has been at P6. We will go down to P5 today. We will keep the epinephrine at 0.03 mcg per kilogram per minute. Overall, the patient remains stable. Volume overload. Continue with diuresis with Lasix. Hypercholesterolemia, on high statin therapy. Acute blood loss anemia. The patient's hemoglobin is above 7. We will continue to monitor and transfuse if hemoglobin is less than 7. TID: [id number] RECEIPT: [id number]
--- NOTE | 2024-11-17 07:59 | PN ---
[facility] PROGRESS NOTE Date Patient Seen: Nov 17, 2024 Time of Visit: 07:59 Supervising Physician: BHAVIN ALMONTE MD Primary Care Physician: Self Referral Outpatient Specialists: [ ] Inpatient Consults: PEG, Dr Jacobo, Dr Wellington , Dr Meza PROBLEM LIST: MvCAD s/p CABG x 3+1 w/ redo on 11/07/24 Impella 5 x 5 Postop acute anemia requiring transfusion ELSA Hyperlipidemia Sclerotic nodule on the non coronary cusp on 2D echo Normal ventricular diastolic function with LVEF of 60-65% on 2D echo 11/05/24 Former smoker Graves disease Obesity INTERVAL HISTORY: Chart reviewed including all laboratory and imaging results. Patient assessed at bedside. Denies chest pain, palpitation, or shortness for breath. Blood pressures are marginal. Currently on Impella support of P4. Low-dose epi of 0.03 mcg/kg per minute. White count 11.2 hemoglobin 8 0.7/26.1. Kidneys are doing well creatinine 1.0 GFR of 82 glucose 146 mg/dL iron 31, TIBC 248,% saturation 12.5 and ferritin 339. He is on 4 L saturating 97% and in no apparent respiratory distress respiratory rate of 18 unlabored. Chest x-ray shows lines in good position no pneumothorax left side chest tube in good position. Mild pulmonary vascular congestion noted. Plan: Following Cardiothoracic Surgeons postop protocol Neurovascular checks per protocol Weaning Impella per CTS I&Os Cardiac diet Telemetry PT/OT Heme-Onc recommendations Continue IS Q 1 hour while awake. Total critical care time 39 minutes, patient remains critical requiring pressors, Impella support. Time excludes any educational time or procedures performed REVIEW OF SYSTEMS: 12 point ROS reviewed with patient. Pertinent positives mentioned above. Otherwise negative. PHYSICAL EXAM: GENERAL: alert, weak, awake oriented x 3 HEENT: EOMI, Sclera non icteric, moist mucosa NECK: Supple, no JVD, trachea midline right IJ. Subclavian Impella 5.5 LUNGS: Rhonchi to right lower lobes. No wheezes HEART: Regular rate and rhythm. Normal S1 and S2, without murmurs mid incision line tenderness. Dressing clean dry and intact. ABD: Abdomen soft, nontender. Bowel sounds present EXT: No clubbing cyanosis or edema. Left femoral sheath. NEURO: Alert and oriented to person, follows commands Vital Signs (last 8hr) Date Time Temp Pulse Resp B/P (MAP) Pulse Ox O2 Delivery O2 Flow Rate FiO2 11/17/24 06:25 78 16 95 89/53 (65) 11/17/24 06:12 83 18 N/A Room Air 21 11/17/24 06:10 78 19 93 76/47 (57) 11/17/24 06:10 83 18 11/17/24 06:07 11/17/24 05:55 79 19 93 81/52 (62) 11/17/24 05:40 84 19 74/49 (57) 93 84/57 (66) 11/17/24 05:25 73 19 85/51 (62) 96 94/54 (67) 11/17/24 05:10 79 23 77/49 (58) 92 97/65 (76) 11/17/24 04:55 80 22 73/45 (54) 93 90/61 (71) 11/17/24 04:40 81 13 77/47 (57) 95 93/61 (72) 11/17/24 04:25 81 18 235/235 (235) 98 91/51 (64) 11/17/24 04:10 79 12 235/235 (235) 97 88/49 (62) 11/17/24 04:00 97 Nasal Cannula* 4 N/A N/C Oxymizer Hi LPM* 11/17/24 04:00 98.1 11/17/24 03:55 82 16 81/51 (61) 99 89/57 (68) 11/17/24 03:40 81 17 236/236 (236) 97 86/56 (66) 11/17/24 03:25 81 15 180/178 (179) 98 101/57 (72) 11/17/24 03:10 82 10 232/231 (231) 97 93/51 (65) 11/17/24 02:55 82 24 236/235 (235) 96 101/57 (72) 11/17/24 02:40 87 19 241/237 (238) 97 100/60 (73) 11/17/24 02:25 81 13 230/229 (229) 93 88/55 (66) 11/17/24 02:10 74 14 220/220 (220) 98 102/62 (75) 11/17/24 01:55 78 19 150/148 (149) 96 85/54 (64) 11/17/24 01:40 82 16 212/211 (211) 97 107/55 (72) 11/17/24 01:25 75 19 186/184 (185) 98 90/52 (65) 11/17/24 01:15 78 22 185/183 (184) 98 77/51 (60) 11/17/24 01:10 75 12 188/186 (187) 98 81/45 (57) 11/17/24 00:55 81 23 167/164 (165) 98 88/56 (67) 11/17/24 00:40 74 16 156/153 (154) 98 98/45 (62) 11/17/24 00:25 73 15 77/44 (55) 99 98/56 (70) 11/17/24 00:10 79 17 79/48 (58) 98 93/61 (72) 11/17/24 00:00 98.1 11/17/24 00:00 98 Nasal Cannula* 4 N/A N/C Oxymizer Hi LPM* LABS: Hematology Labs: Test 11/17/24 04:58 Range/Units White Blood Count 11.2 H 4.8-10.8 K/uL Red Blood Count 2.69 L 4.50-6.20 MIL/uL Hemoglobin 8.7 L 14.0-18.0 g/dL Hematocrit 26.1 L 42-54 % Mean Corpuscular Volume 97.0 79-99 fL Mean Corpuscular Hemoglobin 32.3 27.0-33.0 pg Mean Corpuscular Hemoglobin Concent 33.3 32.0-36.0 g/dL Red Cell Distribution Width 13.5 11.0-15.5 % Platelet Count 398 # 130-400 K/uL Mean Platelet Volume 10.1 7.5-10.5 fL Nucleated Red Blood Cells 0.0 0.0-0.19 % Chemistry Labs: Test 11/17/24 04:58 11/16/24 03:58 11/15/24 10:31 Range/Units Sodium Level 138 136-145 mmol/L Potassium Level 3.6 3.5-5.1 mmol/L Chloride Level 104 101-111 mmol/L Carbon Dioxide Level 22 21-32 mmol/L Blood Urea Nitrogen 9 7-18 mg/dL Creatinine 1.0 0.5-1.3 mg/dL Glomerular Filtration Rate Calc 82 >90 mL/min Random Glucose 146 H 70-105 mg/dL Total Calcium 8.1 L 8.5-10.1 mg/dL Total Bilirubin 0.5 0.2-1.0 mg/dL Aspartate Amino Transf (AST/SGOT) 35 10-37 U/L Alanine Aminotransferase (ALT/SGPT) 31 12-78 U/L Alkaline Phosphatase 74 50-136 U/L Total Protein 6.2 6.0-8.3 g/dL Albumin 2.3 L 3.5-5.0 g/dL Magnesium Level 2.20 1.80-2.40 mg/dL Whole Blood Glucose 120 H 70-110 MG/DL Coagulation Labs: Test 11/17/24 04:58 Range/Units Activated Partial Thromboplast Time 49.6 H 26.3-35.5 SEC DIAGNOSTICS / RADIOLOGY RESULTS: [ ] PLAN NEURO: Minimize central acting medications as possible. Fall Precautions. Well lighted room through the day and minimize interruptions through the night to prevent acute delirium. PULMONARY: Supplemental 02 as needed Titrate Fio2 to keep Spo2 > or = 90% DuoNebs and CPT as needed IS hourly while awake for pulmonary hygiene Out of bed to chair as tolerated VAP Bundle Bipap 12/6 fio2 50% RT to titrate FiO2 as needed to maintain O2 above 92% CARDIOVASCULAR: Follow hemodynamics. Titrate vasopressor to keep MAP >65 or systolic blood pressure >95mmHg DIPS: Epi LINES: Central venous catheter right IJ Impella 5.5 Chest tube A line Daniel catheter GI & NUTRITION: NPO for now Aspirations precautions Prokinetic agents and laxatives as needed KIDNEYS & ELECTROLYTES: Strict monitoring of intake and output Daily weights Avoid nephrotoxic agents Monitor electrolytes and replace as needed Goal urine output of 30mL/hr or 0.5mL/kg/hr Urine output 2 L in last 24 hours Chest tube drained 400 mL to lateral side Mediastinal drain 90 mL with I&O balance positive 230 mL ENDOCRINE: Maintain blood glucose between 100-180 at all times. Insulin sliding scale for blood glucose management INFECTIOUS DISEASE: Trend temperature. Nichols-culture if febrile. Micro: [ ] MRSA negative Antibiotics: [ ] Ancef HEMATOLOGY & COAGULATION: Monitor H&H. Keep Hgb > 7 Transfuse 1 unit of PRBC for Hgb < 7 Transfuse 1 pack of platelets of platelets < 20, 000 Watch for any signs and symptoms of bleeding SKIN: Pressure ulcer prevention per facility protocol Rehab: PT/OT Prophylaxis: GI: [ Protonix 40 mg IV b.i.d.] DVT: Heparin per CV Code Status: Full Resuscitation Disposition: [ TBD Case was discussed and seen with my supervising physician. The above plan was formulated and agreed upon. ATTESTATION BY PHYSICIAN The patient has been seen and evaluated, the case has been discussed with the DETECTIVE BUREAU CHIEF, I agree with the clinical findings and plan of care. AGNIESZKA CASTANEDA MD [facility] Nov 17, 2024 07:59
--- NOTE | 2024-11-17 09:19 | PN ---
[facility] CARDIOLOG[facility] PROGRESS NOTE Cardiology progress note dictated for Yesica Jacobo MD Date Patient Seen: Nov 17, 2024 Interval History: S/p CABG with initial graft failure converted to Impella supported redo (CHILD- LAD, SVG-OM2, SVG-RCA and SVG-LAD) on 11/07/[address] Derrick Patel at [facility] Overnight telemetry demonstrated NSR with hr 70-80's Maintained on epinephrine and heparin infusions Negative urine output of -1988 mL Lines 24hr output: Mediastinal chest tube with 40 mL output. Left anterior chest chest tube with 161 mL output. Continues with marginal blood pressure, he is maintained on midodrine 15 mg t.i.d. Physical Examination: GENERAL: No acute distress. HEAD: Normal with no signs of head trauma. EYES: Conjunctiva and sclera normal. NECK: Supple without JVD. LUNGS: Clear breath sounds bilaterally. HEART: Normal rate and rhythm. Normal S1 and S2 with Impella augmentation noted. Mediastinal and left chest tubes in place VASC: Peripheral pulses +1 bilaterally. Impella to the left subclavian area with dressing dry and intact EXT: No clubbing, cyanosis or edema. Daniel catheter draining clear yellow urine. NEURO: Awake, alert, and oriented x3. No focal neurological deficits noted. Laboratory: Hematology Labs: Test 11/17/24 04:58 Range/Units White Blood Count 11.2 H 4.8-10.8 K/uL Red Blood Count 2.69 L 4.50-6.20 MIL/uL Hemoglobin 8.7 L 14.0-18.0 g/dL Hematocrit 26.1 L 42-54 % Mean Corpuscular Volume 97.0 79-99 fL Mean Corpuscular Hemoglobin 32.3 27.0-33.0 pg Mean Corpuscular Hemoglobin Concent 33.3 32.0-36.0 g/dL Red Cell Distribution Width 13.5 11.0-15.5 % Platelet Count 398 # 130-400 K/uL Mean Platelet Volume 10.1 7.5-10.5 fL Nucleated Red Blood Cells 0.0 0.0-0.19 % Chemistry Labs: Test 11/17/24 04:58 11/16/24 03:58 11/15/24 10:31 Range/Units Sodium Level 138 136-145 mmol/L Potassium Level 3.6 3.5-5.1 mmol/L Chloride Level 104 101-111 mmol/L Carbon Dioxide Level 22 21-32 mmol/L Blood Urea Nitrogen 9 7-18 mg/dL Creatinine 1.0 0.5-1.3 mg/dL Glomerular Filtration Rate Calc 82 >90 mL/min Random Glucose 146 H 70-105 mg/dL Total Calcium 8.1 L 8.5-10.1 mg/dL Total Bilirubin 0.5 0.2-1.0 mg/dL Aspartate Amino Transf (AST/SGOT) 35 10-37 U/L Alanine Aminotransferase (ALT/SGPT) 31 12-78 U/L Alkaline Phosphatase 74 50-136 U/L Total Protein 6.2 6.0-8.3 g/dL Albumin 2.3 L 3.5-5.0 g/dL Magnesium Level 2.20 1.80-2.40 mg/dL Whole Blood Glucose 120 H 70-110 MG/DL Coagulation Labs: Test 11/17/24 04:58 Range/Units Activated Partial Thromboplast Time 49.6 H 26.3-35.5 SEC Diagnostics / Radiology: 2D echocardiogram 11/04/2024: Conclusion The left atrium size is normal. The right ventricular systolic function is normal. Normal TAPSE Mild concentric left ventricular hypertrophy. GLS 16.0% There is normal LV segmental wall motion. LVEF is 60-65%. The left ventricular diastolic function is normal. Aortic valve is trileaflet, mildly sclerotic, and opens well. Sclerotic nodule on the non-coronary cusp. There is no mobile or oscillating aortic valvular vegetation. There is no pericardial effusion. Follow-up limited 2D echocardiogram 11/12/2024: Conclusion Limited echo for Impella placement. LVEF is 40-45%. There is global hypokinesis of the left ventricle. Impella device measuring 4.9cm into LV. The pericardium appears normal. Impression and Plan: Unstable angina pectoris Abnormal CT coronary angiogram 11/05/2024 demonstrating a CAD-RADs score of 4B mixed calcified and noncalcified plaque in the left main with 50% stenosis, 80- 90% stenosis in the proximal LAD and 80-90% stenosis in mid left circumflex Critical left main and ostial RCA stenosis by cardiac catheterization 11/06/2024 S/p CABG with initial graft failure converted to Impella supported redo (CHILD- LAD, SVG-OM2, SVG-RCA and SVG-LAD) on 11/07/[address] Meza LVEF of 60-65% by 2D echocardiogram 11/05/2024 Mild ischemic cardiomyopathy with an LVEF of 40-45% by 2D echocardiogram 11/12/2024 Bilateral ICA disease with >70% stenosis by Doppler on 11/04/2024 Transaminitis, improved Thrombocytopenia, improved Hyperlipidemia CAD s/p PTCA to unknown vessel approximately 30 years ago Ex-smoker of 1 PPD with cessation 2 months ago Graves disease S/p CABG with initial graft failure converted to Impella supported redo (CHILD- LAD, SVG-OM2, SVG-RCA and SVG-LAD) on 11/07/[address] Derrick Patel at P[facility] -The patient is maintained on Epinephrine and Heparin infusions -The patient is not a candidate for beta-betty therapy until weaned off of Epinephrine and if hemodynamically stable. Continue Midodrine 15mg TID. -Continue Aspirin 81 mg daily, Plavix 75 mg daily, Atorvastatin 40 mg q.h.s., and Lasix 20 mg p.o. every 12 hours -Continue management per Cardiothoracic surgery -PT/OT Carotid artery disease Carotid US 11/05: Mild intimal thickening in the bilateral carotid arteries and their branches. Bilateral ICA/CCA ratio is more than 4.0 suggesting more than 70 % stenosis. Raised velocities in the bilateral external and internal carotid arteries. -Recommend CT/MR angiogram when stable from surgical standpoint -Continue Aspirin 81 mg daily and Atorvastatin 40 mg q.h.s. Thrombocytopenia, improved Platelets today of 398K/uL -Hematology ordered SPEP, UPEP and free light chain laboratories. If there is monoclonal protein, plans for a bone marrow biopsy. 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 MIKAYLA KIMBALL Nov 17, 2024 09:19 YESICA JACOBO MD Nov 17, 2024 12:02
[2024-11-17 10:31] LABS: IRON, SERUM 31.0 mcg/dL (65-175)
[2024-11-17 10:57] LABS: % IRON SATURATION 12.5 % (30-44)
[2024-11-17 11:13] LABS: FREE KAPPA LIGHT CHAINS,S 20.3 mg/L (3.3-19.4)
--- NOTE | 2024-11-17 13:40 | PN ---
Patient seen and examined, all labs and imaging have been reviewed, patient is sitting comfortably at bedside chair. Continues with the Impella, P5 Patient has clotted off his 4th a line. Anesthesia was brought into place of 5th. Hematology has also been requested to evaluate patient for his clotting. Patient is comfortable, he is reporting no pain or discomfort no chest pain or shortness of breath. No abdominal complaints. Good saturations on nasal cannula 2 L He is alert and oriented, Urine output There is plan to for removal of Impella. Patient was found to have iron deficiency anemia. Direct Juan was done which was negative. PHYSICAL EXAM: GENERAL: alert, weak, awake oriented x 3 HEENT: EOMI, Sclera non icteric, moist mucosa NECK: Supple, no JVD, trachea midline right IJ. Subclavian Impella 5.5 LUNGS: Rhonchi to right lower lobes. No wheezes HEART: Regular rate and rhythm. Normal S1 and S2, without murmurs mid incision line tenderness. Dressing clean dry and intact. ABD: Abdomen soft, nontender. Bowel sounds present EXT: No clubbing cyanosis or edema. Left femoral sheath. NEURO: Alert and oriented to person, follows commands Assessment 1. Anemia. Is multifactorial. Including iron deficiency anemia 2. Thrombocytopenia 3.CAD s/p CABG x 3+1 w/ redo on 11/07/24 Impella 5 x 5 4. ELSA 5. Hyperlipidemia 6. Sclerotic nodule on the non coronary cusp on 2D echo Normal ventricular diastolic function with LVEF of 60-65% on 2D echo 11/05/24 7. Former smoker Plan: 1. Patient to be started on IV iron while in the hospital. This patient may be will need oral iron 2. every other day for at least 6 months on folic acid 1 mg p.o. daily and vitamin B12 1000 mcg p.o. daily. 3. 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 continue direct Juan is negative. There is no need for prednisone treatment. 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 We will ask for SPEP, UPEP and free light chain. If there is monoclonal protein we will do a bone marrow biopsy. 5. I discussed the case with cardiology. There is no need for anticoagulation from cardiology point of view. So this patient is going to be discharged there is no need for oral anticoagulation from my point of view. Patient will need hypercoagulable state testing. Will do it as outpatient (patient stopped heparin 6. Continue care as per cardiothoracic surgery Vitals/Labs Vital Signs Date Time Temp Pulse Resp B/P (MAP) Pulse Ox O2 Delivery O2 Flow Rate FiO2 11/17/24 12:00 98.1 11/17/24 12:00 97 Nasal Cannula* 4 N/A N/C Oxymizer Hi LPM* 11/17/24 11:45 87 23 84/65 (71) 116/78 (91) Laboratory Tests 11/17/24 04:58 Medications Current Medications Aspirin 325 mg ONCE ONCE PO Last administered on 11/03/24at 17:53; Start 11/03/24 at 18:00; Stop 11/03/24 at 18:01; Status DC Acetaminophen 650 mg Q6H PRN PO Last administered on 11/06/24at 23:00; Start 11/03/24 at 21:00; Stop 11/07/24 at 14:00; Status DC Aspirin 81 mg DAILY PO Last administered on 11/17/24at 08:09; Start 11/04/24 at 09:00; Stop 12/04/24 at 08:59 Atorvastatin Calcium 40 mg HS PO; Start 11/03/24 at 21:00; Stop 11/03/24 at 20:40; Status DC Enoxaparin Sodium 40 mg DAILY SQ Last administered on 11/05/24at 09:06; Start 11/04/24 at 09:00; Stop 11/07/24 at 13:38; Status DC Famotidine 20 mg DAILY PO Last administered on 11/05/24at 09:06; Start 11/04/24 at 09:00; Stop 11/07/24 at 13:38; Status DC Hydralazine HCl 10 mg Q6H PRN IV; Start 11/03/24 at 21:00; Stop 11/07/24 at 13:38; Status DC Lactulose 20 gm BID PRN PO; Start 11/03/24 at 21:00; Stop 11/07/24 at 14:00; Status DC Morphine Sulfate 2 mg Q4H PRN IVP Last administered on 11/04/24at 15:49; Start 11/03/24 at 21:00; Stop 11/07/24 at 13:38; Status DC Nitroglycerin 0.5 inch Q8H TD Last administered on 11/07/24at 05:46; Start 11/03/24 at 21:00; Stop 11/07/24 at 13:38; Status DC Ondansetron HCl 4 mg Q6H PRN IV; Start 11/03/24 at 21:00; Stop 11/07/24 at 14:00; Status DC Atorvastatin Calcium 40 mg HS PO Last administered on 11/07/24at 20:15; Start 11/03/24 at 21:00; Stop 11/09/24 at 07:45; Status DC Metoprolol Tartrate 50 mg BID PO Last administered on 11/06/24at 20:38; Start 11/04/24 at 21:00; Stop 11/07/24 at 13:38; Status DC Iohexol 35,000 mg STK-MED ONCE IV; Start 11/05/24 at 11:05; Stop 11/05/24 at 11:05; Status DC Sodium Chloride 1,000 ml @ 100 mls/hr Q10H ONCE IV Last administered on 11/05/24at 14:03; Start 11/05/24 at 13:30; Stop 11/05/24 at 23:29; Status DC Lidocaine HCl 20 ml STK-MED ONCE .ROUTE; Start 11/06/24 at 11:05; Stop 11/06/24 at 11:05; Status DC Iohexol 35,000 mg STK-MED ONCE IV; Start 11/06/24 at 11:05; Stop 11/06/24 at 11:06; Status DC Heparin Sodium (Porcine) 10,000 unit STK-MED ONCE .ROUTE; Start 11/06/24 at 11:05; Stop 11/06/24 at 11:06; Status DC Heparin Sodium/ Sodium Chloride 1,000 ml @ As Directed STK-MED ONCE IV; Start 11/06/24 at 11:06; Stop 11/06/24 at 11:06; Status DC Nitroglycerin 50 mg STK-MED ONCE .ROUTE; Start 11/06/24 at 11:06; Stop 11/06/24 at 11:06; Status DC Verapamil HCl 5 mg STK-MED ONCE .ROUTE; Start 11/06/24 at 11:06; Stop 11/06/24 at 11:06; Status DC Fentanyl Citrate 100 mcg STK-MED ONCE .ROUTE; Start 11/06/24 at 11:35; Stop 11/06/24 at 11:36; Status DC Midazolam HCl 2 mg STK-MED ONCE .ROUTE; Start 11/06/24 at 11:35; Stop 11/06/24 at 11:36; Status DC Vitamin B Complex 1,000 mcg DAILY IM Last administered on 11/12/24at 09:03; Start 11/07/24 at 09:00; Stop 11/13/24 at 08:59; Status DC Sodium Chloride 1,000 ml @ 100 mls/hr Q10H IV; Start 11/06/24 at 12:30; Stop 11/06/24 at 15:29; Status DC Cefazolin Sodium 2 gm ONCALL IVPB; Start 11/06/24 at 22:00; Stop 11/07/24 at 14:00; Status DC Epinephrine HCl 10 mg/Sodium Chloride 250 ml @ 0 mls/hr AD PRN IV; Start 11/07/24 at 11:00; Stop 11/07/24 at 14:02; Status DC Norepinephrine Bitartrate 250 ml @ 0 mls/hr AD PRN IV; Start 11/07/24 at 11:00; Stop 11/07/24 at 14:02; Status DC Aminocaproic Acid 55609 mg/Sodium Chloride 480 ml @ 0 mls/hr AD PRN IV; Start 11/07/24 at 11:00; Stop 11/07/24 at 14:03; Status DC Metoprolol Tartrate 25 mg ONCE ONCE PO Last administered on 11/07/24at 11:15; Start 11/07/24 at 11:30; Stop 11/07/24 at 11:31; Status DC Nitroglycerin/ Dextrose 1 ml @ As Directed STK-MED ONCE .ROUTE; Start 11/07/24 at 11:25; Stop 11/07/24 at 11:25; Status DC Acetaminophen 1,000 mg Q6H6 IV Last administered on 11/08/24at 18:08; Start 11/07/24 at 18:00; Stop 11/08/24 at 17:59; Status DC Aspirin 81 mg ONCE ONCE NG; Start 11/07/24 at 17:00; Stop 11/07/24 at 17:01; Status DC Docusate Sodium 100 mg BID PO Last administered on 11/07/24at 20:15; Start 11/07/24 at 21:00; Stop 11/08/24 at 10:11; Status DC Lactulose 20 gm BID PRN PO Last administered on 11/17/24at 06:46; Start 11/07/24 at 14:00; Stop 12/07/24 at 13:59 Furosemide 20 mg Q12H PO Last administered on 11/17/24at 08:10; Start 11/09/24 at 09:00; Stop 12/09/24 at 08:59 Furosemide 20 mg Q12H IV Last administered on 11/08/24at 20:23; Start 11/08/24 at 09:00; Stop 11/09/24 at 08:59; Status DC Enoxaparin Sodium 30 mg DAILY SQ Last administered on 11/12/24at 09:03; Start 11/10/24 at 09:00; Stop 11/13/24 at 08:38; Status DC Metoprolol Tartrate 12.5 mg BID PO; Start 11/09/24 at 09:00; Stop 11/11/24 at 09:39; Status DC Magnesium Hydroxide 30 ml DAILY PRN PO; Start 11/07/24 at 14:00; Stop 12/07/24 at 13:59 Dexmedetomidine/ Sodium Chloride 400 mcg PROTOCOL IV; Start 11/07/24 at 14:00; Stop 12/07/24 at 13:59 Acetaminophen 650 mg Q6H PRN PO Last administered on 11/16/24at 11:37; Start 11/07/24 at 14:00; Stop 12/07/24 at 13:59 Sodium Chloride 1,000 ml @ 10 mls/hr ONCE IV Last administered on 11/07/24at 20:11; Start 11/07/24 at 14:00; Stop 11/08/24 at 13:59; Status DC Sodium Chloride 10 ml Q8H PRN IVP; Start 11/07/24 at 14:00; Stop 12/07/24 at 13:59 Morphine Sulfate 0.5 mg Q2H PRN IV; Start 11/07/24 at 14:00; Stop 11/08/24 at 13:59; Status DC Morphine Sulfate 1 mg Q2H PRN IV; Start 11/07/24 at 14:00; Stop 11/08/24 at 13:59; Status DC Acetaminophen 650 mg Q4H PRN RC; Start 11/07/24 at 14:00; Stop 12/07/24 at 13:59 Ondansetron HCl 4 mg Q6H PRN IV Last administered on 11/09/24at 21:50; Start 11/07/24 at 14:00; Stop 12/07/24 at 13:59 Sodium Chloride 500 ml @ 0 mls/hr AD IV Last administered on 11/10/24at 00:41; Start 11/07/24 at 14:00; Stop 12/07/24 at 13:59 Nitroglycerin/ Dextrose 0 ml @ 0 mls/hr AD IV; Start 11/07/24 at 14:00; Stop 11/10/24 at 13:59; Status DC Propofol 100 ml @ 0 mls/hr AD PRN IV; Start 11/07/24 at 14:00; Stop 11/11/24 at 13:59; Status DC Norepinephrine Bitartrate 250 ml @ 0 mls/hr AD PRN IV Last administered on 11/09/24at 17:09; Start 11/07/24 at 14:00; Stop 11/12/24 at 13:59; Status DC Epinephrine HCl 10 mg/Sodium Chloride 250 ml @ 13.948 mls/ hr AD PRN IV Last administered on 11/09/24at 19:48; Start 11/07/24 at 14:00; Stop 11/12/24 at 13:59; Status DC Aminocaproic Acid 95230 mg/Sodium Chloride 310 ml @ 25 mls/hr AD IV; Start 11/07/24 at 14:00; Stop 11/08/24 at 02:23; Status DC Calcium Gluconate 1 gm/Sodium Chloride 60 ml @ 200 mls/hr AD PRN IV Last administered on 11/16/24at 05:52; Start 11/07/24 at 14:00; Stop 12/07/24 at 13:59 Magnesium Sulfate 50 ml @ 12.5 mls/hr AD PRN IV Last administered on 11/09/24at 05:59; Start 11/07/24 at 14:00; Stop 12/07/24 at 13:59 Potassium Chloride 100 ml @ 100 mls/hr AD PRN IV Last administered on 11/17/24at 06:12; Start 11/07/24 at 14:00; Stop 12/07/24 at 13:59 Potassium Phosphate 250 ml @ 42 mls/hr AD PRN IV Last administered on 11/08/24at 07:22; Start 11/07/24 at 14:00; Stop 12/07/24 at 13:59 Albumin Human 250 ml @ 0 mls/hr AD PRN IV Last administered on 11/08/24at 09:57; Start 11/07/24 at 14:00; Stop 11/08/24 at 09:57; Status DC Acetaminophen 650 mg Q4H PRN PO; Start 11/07/24 at 14:00; Stop 12/07/24 at 13:59 Insulin Human Regular 100 unit/ Sodium Chloride 100 ml @ 0 mls/hr AD IV Last administered on 11/08/24at 12:30; Start 11/07/24 at 14:00; Stop 11/09/24 at 13:59; Status DC Cefazolin Sodium 2 gm Q8H IVPB Last administered on 11/08/24at 11:15; Start 11/07/24 at 19:00; Stop 11/08/24 at 11:01; Status DC Tramadol HCl 25 mg Q6H PRN PO; Start 11/07/24 at 14:00; Stop 11/09/24 at 08:37; Status DC Tramadol HCl 50 mg Q6H PRN PO Last administered on 11/08/24at 23:30; Start 11/07/24 at 14:00; Stop 11/09/24 at 08:37; Status DC Famotidine 20 mg BID IV Last administered on 11/08/24at 08:11; Start 11/07/24 at 21:00; Stop 11/08/24 at 08:59; Status DC Sodium Bicarbonate 50 meq AD PRN IV Last administered on 11/08/24at 00:54; Start 11/07/24 at 14:00; Stop 11/10/24 at 13:59; Status DC Dextrose 50 ml AD PRN IV; Start 11/07/24 at 14:00; Stop 12/07/24 at 13:59 Glucagon 1 mg AD PRN IM; Start 11/07/24 at 14:00; Stop 12/07/24 at 13:59 Protamine Sulfate 250 mg STK-MED ONCE IV; Start 11/07/24 at 14:25; Stop 11/07/24 at 14:26; Status DC Lidocaine HCl 100 mg STK-MED ONCE .ROUTE; Start 11/07/24 at 14:25; Stop 11/07/24 at 14:26; Status DC Heparin Sodium (Porcine) 10,000 unit STK-MED ONCE .ROUTE; Start 11/07/24 at 14:26; Stop 11/07/24 at 14:26; Status DC Epinephrine HCl 1 mg STK-MED ONCE .ROUTE; Start 11/07/24 at 14:26; Stop 11/07/24 at 14:26; Status DC Sodium Bicarbonate 200 ml @ As Directed STK-MED ONCE .ROUTE; Start 11/07/24 at 14:26; Stop 11/07/24 at 14:26; Status DC Norepinephrine Bitartrate 4 mg STK-MED ONCE IV; Start 11/07/24 at 14:26; Stop 11/07/24 at 14:26; Status DC Propofol 200 mg STK-MED ONCE IV; Start 11/07/24 at 14:26; Stop 11/07/24 at 14:26; Status DC Fentanyl Citrate 1,000 mcg STK-MED ONCE IJ; Start 11/07/24 at 14:26; Stop 11/07/24 at 14:27; Status DC Midazolam HCl 2 mg STK-MED ONCE .ROUTE; Start 11/07/24 at 14:26; Stop 11/07/24 at 14:27; Status DC Rocuronium [place] 50 mg STK-MED ONCE .ROUTE; Start 11/07/24 at 14:27; Stop 11/07/24 at 14:27; Status DC Ketamine HCl 50 mg STK-MED ONCE .ROUTE; Start 11/07/24 at 14:31; Stop 11/07/24 at 14:31; Status DC Cefazolin Sodium 1 gm STK-MED ONCE .ROUTE Last administered on 11/07/24at 15:00; Start 11/07/24 at 14:55; Stop 11/07/24 at 14:56; Status DC Heparin Sodium/ Sodium Chloride 500 ml @ As Directed STK-MED ONCE IV; Start 11/07/24 at 14:57; Stop 11/07/24 at 14:57; Status DC Papaverine HCl 60 mg STK-MED ONCE .ROUTE Last administered on 11/07/24at 15:51; Start 11/07/24 at 14:57; Stop 11/07/24 at 14:57; Status DC Cefazolin Sodium 1 gm STK-MED ONCE .ROUTE Last administered on 11/07/24at 15:49; Start 11/07/24 at 15:46; Stop 11/07/24 at 15:46; Status DC Amiodarone HCl 150 mg STK-MED ONCE .ROUTE; Start 11/07/24 at 17:06; Stop 11/07/24 at 17:06; Status DC Amiodarone HCL/ Dextrose 100 ml @ As Directed STK-MED ONCE .ROUTE; Start 11/07/24 at 17:08; Stop 11/07/24 at 17:09; Status DC Cardioplegic Solution 0 ml @ As Directed STK-MED ONCE IV; Start 11/07/24 at 17:13; Stop 11/07/24 at 17:13; Status DC Heparin Sodium (Porcine) 10,000 unit STK-MED ONCE .ROUTE; Start 11/07/24 at 17:15; Stop 11/07/24 at 17:15; Status DC Sodium Bicarbonate 50 ml @ As Directed STK-MED ONCE .ROUTE; Start 11/07/24 at 17:26; Stop 11/07/24 at 17:26; Status DC Sodium Bicarbonate 200 ml @ As Directed STK-MED ONCE .ROUTE; Start 11/07/24 at 17:36; Stop 11/07/24 at 17:36; Status DC Midazolam HCl 5 mg STK-MED ONCE .ROUTE; Start 11/07/24 at 17:57; Stop 11/07/24 at 17:57; Status DC Sodium Bicarbonate 150 ml @ As Directed STK-MED ONCE .ROUTE; Start 11/07/24 at 18:06; Stop 11/07/24 at 18:06; Status DC Amiodarone HCL/ Dextrose 100 ml @ As Directed STK-MED ONCE .ROUTE; Start 11/07/24 at 18:25; Stop 11/07/24 at 18:25; Status DC Cefazolin Sodium 1 gm STK-MED ONCE .ROUTE; Start 11/07/24 at 18:43; Stop 11/07/24 at 18:43; Status DC Ketamine HCl 50 mg STK-MED ONCE .ROUTE; Start 11/07/24 at 18:56; Stop 11/07/24 at 18:56; Status DC Ephedrine Sulfate 50 mg STK-MED ONCE .ROUTE; Start 11/07/24 at 18:58; Stop 11/07/24 at 18:59; Status DC Lidocaine HCl/ Dextrose 250 ml @ As Directed STK-MED ONCE IV Last administered on 11/07/24at 20:08; Start 11/07/24 at 19:02; Stop 11/07/24 at 19:02; Status DC Dextrose/Sodium Bicarbonate 1,025 ml @ 10 mls/hr Q24H IV Last administered on 11/15/24at 09:42; Start 11/07/24 at 19:30; Stop 12/07/24 at 19:29 Calcium Gluconate 1 gm AD PRN IV Last administered on 11/08/24at 16:36; Start 11/08/24 at 09:00; Stop 11/09/24 at 07:45; Status DC Pantoprazole Sodium 40 mg BID IVP Last administered on 11/17/24at 08:10; Start 11/08/24 at 09:00; Stop 12/08/24 at 08:59 Montelukast Sodium 10 mg HS PO Last administered on 11/16/24at 20:14; Start 11/08/24 at 21:00; Stop 12/08/24 at 20:59 Ipratropium [place] 0.5 MG [id number] IH Last administered on 11/17/24at 11:27; Start 11/08/24 at 12:00; Stop 12/08/24 at 11:59 Polyethylene Glycol 17 gm DAILY PO Last administered on 11/17/24at 08:10; Start 11/09/24 at 09:00; Stop 12/09/24 at 08:59 Polyethylene Glycol 17 gm STK-MED ONCE .ROUTE; Start 11/08/24 at 10:01; Stop 11/08/24 at 10:02; Status DC Docusate Sodium 100 mg BID NG Last administered on 11/09/24at 20:47; Start 11/08/24 at 10:30; Stop 11/09/24 at 21:53; Status DC Levothyroxine Sodium 125 mcg SYN PO Last administered on 11/17/24at 06:13; Start 11/09/24 at 06:30; Stop 12/09/24 at 06:29 Clopidogrel Bisulfate 75 mg DAILY PO Last administered on 11/17/24at 08:09; Start 11/08/24 at 14:00; Stop 12/08/24 at 13:59 Sucralfate 1 gm TID PO Last administered on 11/17/24at 08:08; Start 11/08/24 at 21:00; Stop 12/08/24 at 20:59 Lidocaine HCl/ Dextrose 250 ml @ 0 mls/hr PROTOCOL PRN IV Last administered on 11/08/24at 21:15; Start 11/08/24 at 21:00; Stop 11/09/24 at 08:37; Status DC Metoclopramide HCl 5 mg ONCE ONCE IVP Last administered on 11/09/24at 00:22; Start 11/09/24 at 00:30; Stop 11/09/24 at 00:31; Status DC Acetaminophen 100 ml @ As Directed STK-MED ONCE .ROUTE; Start 11/09/24 at 07:08; Stop 11/09/24 at 07:08; Status DC Acetaminophen 1,000 mg ONCE ONCE IVPB Last administered on 11/09/24at 07:47; Start 11/09/24 at 08:00; Stop 11/09/24 at 08:01; Status DC Acetaminophen 1,000 mg Q6H IVPB Last administered on 11/12/24at 02:11; Start 11/09/24 at 09:00; Stop 11/12/24 at 08:59; Status DC Lidocaine/ Prilocaine 1 appl ONCE ONCE TP Last administered on 11/09/24at 09:49; Start 11/09/24 at 09:30; Stop 11/09/24 at 09:33; Status DC Piperacillin Sod/ Tazobactam Sod 3.375 gm Q8H IV Last administered on 11/17/24at 10:34; Start 11/09/24 at 10:00; Stop 11/19/24 at 09:59 Piperacillin Sod/ Tazobactam Sod 3.375 gm Q8H IV; Start 11/09/24 at 10:00; Stop 11/09/24 at 09:38; Status DC Midodrine 10 mg TID PO Last administered on 11/10/24at 20:07; Start 11/09/24 at 21:00; Stop 11/11/24 at 06:58; Status DC Docusate Sodium 100 mg BID PO Last administered on 11/17/24at 08:08; Start 11/10/24 at 09:00; Stop 12/10/24 at 08:59 Calcium Chloride 1,000 mg STK-MED ONCE IVP; Start 11/03/24 at 12:28; Stop 11/10/24 at 12:31; Status DC Albumin Human 50 ml @ As Directed STK-MED ONCE IV; Start 11/03/24 at 12:28; Stop 11/10/24 at 12:31; Status DC Heparin Sodium (Porcine) 10,000 unit STK-MED ONCE IV; Start 11/03/24 at 12:28; Stop 11/10/24 at 12:31; Status DC Lidocaine HCl 5 mg STK-MED ONCE IVP; Start 11/03/24 at 12:28; Stop 11/10/24 at 12:31; Status DC Magnesium Sulfate 1 gm STK-MED ONCE IM; Start 11/03/24 at 12:28; Stop 11/10/24 at 12:31; Status DC Mannitol 12.5 gm STK-MED ONCE IV; Start 11/03/24 at 12:28; Stop 11/10/24 at 12:31; Status DC Norepinephrine Bitartrate 1 mg STK-MED ONCE IV; Start 11/03/24 at 12:28; Stop 11/10/24 at 12:31; Status DC Sodium Bicarbonate 50 meq STK-MED ONCE IVP; Start 11/03/24 at 12:28; Stop 11/10/24 at 12:31; Status DC Atorvastatin Calcium 40 mg HS PO Last administered on 11/16/24at 20:14; Start 11/10/24 at 21:00; Stop 12/10/24 at 20:59 Midodrine 15 mg TID PO Last administered on 11/17/24at 08:09; Start 11/11/24 at 09:00; Stop 12/11/24 at 08:59 Lidocaine HCl 20 ml STK-MED ONCE .ROUTE Last administered on 11/12/24at 10:06; Start 11/12/24 at 09:24; Stop 11/12/24 at 09:24; Status DC Norepinephrine Bitartrate 250 ml @ 0 mls/hr PROTOCOL IV Last administered on 11/13/24at 08:42; Start 11/12/24 at 18:30; Stop 12/12/24 at 18:29 Epinephrine HCl 10 mg/Sodium Chloride 250 ml @ 0 mls/hr PROTOCOL IV Last administered on 11/14/24at 03:13; Start 11/12/24 at 23:30; Stop 12/12/24 at 23:29 Heparin Sodium (Porcine) *calculation based on ACTUAL B... AD PRN IV; Start 11/13/24 at 09:30; Stop 12/13/24 at 09:29 Heparin Sodium/ Dextrose 250 ml @ 0 mls/hr Q6H IV Last administered on 11/17/24at 03:21; Start 11/13/24 at 09:30; Stop 12/13/24 at 09:29 Pharmacy Profile Note 1 each ONCE MISC; Start 11/13/24 at 09:00; Stop 11/13/24 at 08:57; Status DC Lidocaine HCl 20 ml STK-MED ONCE .ROUTE Last administered on 11/13/24at 10:24; Start 11/13/24 at 09:10; Stop 11/13/24 at 09:11; Status DC Lidocaine HCl ONCE ONCE INJ; Start 11/13/24 at 10:00; Stop 11/13/24 at 10:01; Status DC Folic Acid 1 mg DAILY PO Last administered on 11/17/24at 08:09; Start 11/14/24 at 09:00; Stop 12/14/24 at 08:59 Vitamin B Complex 1,000 mcg DAILY PO Last administered on 11/17/24at 08:09; Start 11/14/24 at 09:00; Stop 12/14/24 at 08:59 Iron Sucrose 100 mg ONCE ONCE IV; Start 11/13/24 at 13:30; Stop 11/13/24 at 13:24; Status DC Potassium Chloride 20 meq AD PRN PO Last administered on 11/14/24at 00:17; Start 11/14/24 at 00:30; Stop 12/14/24 at 00:29 Potassium Chloride 20 meq AD PRN PO Last administered on 11/17/24at 08:09; Start 11/14/24 at 00:30; Stop 12/14/24 at 00:29 Albumin Human 250 ml @ 0 mls/hr AD STAT IV Last administered on 11/15/24at 13:28; Start 11/15/24 at 13:09; Stop 11/15/24 at 13:12; Status DC TAINA ARZOLA MD Nov 17, 2024 13:40
--- NOTE | 2024-11-17 14:49 | PN ---
[facility] PROGRESS NOTE Date of Service: Nov 17, 2024 Time of Service: 08:55 SUBJECTIVE: Mr. Valadez a 68-year-old male that was seen and examined today on 11/03/2024. Patient reports that he came to the emergency department with a chief complaint of chest pain. Onset was two or three years ago. He had similar repeated episodes months back which resolved on its own. Today's episode began at 11:00 a.m. Location is midsternal. Duration is on and off. Character is described as "neck someone is pushing a knuckle into the center of my chest. The chest pain did not radiate to shoulder, neck or jaw. "There was no alleviating factors. There was no aggravating factors. Patient reports that symptoms seemingly resolve on their own. He denies nausea, vomiting, fever and any other associated symptoms. Patient denies any associated shortness of breath. Patient has a past medical history of hyperlipidemia and Graves disease. He has been taking atorvastatin and Synthroid as his home medications. Today in the emergency department WBC 5.8, hemoglobin 12.9 platelets 197. His chemistries were within normal limits sodium 140, potassium 4.2, blood urea nitrogen 15 and creatinine 1.0. His electrocardiogram showed normal sinus rhythm. Patient will be admitted for further evaluation and related recommendations in Med-Surg. 11/04/24 Patient was evaluated at the bedside in ED-09. He reports that he is having chest pain that comes and goes. The patient reports having 2 episodes of chest pain in the last hour. He denies associated symptoms such as shortness of breath, palpitation, diaphoresis, dizziness, nausea or syncope. He does however complain of muscle pain in his lower limbs described as a dull aching discomfort that begins in the hip region that is worsened with movement. The patient complains of tingling and numbness in his feet bilaterally. No fever, chills or recent infection reported. Appetite and oral intake are normal. No other acute complaints at this time. On physical exam, a systolic murmur was auscultated over the aortic area. Bilateral carotid bruits are present. Lower extremities are cool to the touch with diminished pedal pulses. Patient reports bilateral leg muscle pain with exertion (suggestive of claudication), and chronic numbness and tingling in the feet. Patient reports recently quitting smoking tobacco for 2 months. He had a 1 pack a day smoking history since 1968. 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 The patient says his chest pain has been ongoing for the past 3 years, and that it gets worse with exertion and at rest. 11/05/24 Patient was evaluated at the bedside room 231. He was hemodynamically stable. Hi symptoms has improved significantly. He doesn't complain of chest pain, shortness of breath and any other associated symptoms. Echocardiogram was done which revealed aortic valve: trileaflet, mildly sclerotic, and opens well. Carotid artery ultrasound showed Bilateral ICA/CCA ratio more than 4.0 suggesting more than 70% stenosis. 11/06/24 Patient was evaluated at the bedside room 231. He was hemodynamically stable. Hi symptoms has improved significantly. He doesn't complain of chest pain, shortness of breath and any other associated symptoms. In coronary CT angiography there is mixed calcified and noncalcified plaque in the proximal LAD with 80-90% stenosis. Left circumflex coronary artery: Normal caliber, nondominant and gives rise to a large OM branch. There is mixed calcified and noncalcified plaque in the mid LCx with 80-90% stenosis. CAD-RAD of 4B. Left heart catheterization with selective right and left coronary angiography was performed which showed critical left main disease. 11/07/24 Patient was evaluated at the bedside room 231. He was hemodynamically stable. He doesn't complain of chest pain, shortness of breath and any other associated symptoms. He complaints of headache 8/10 of intensity after the administration of Nitroglycerin. Cardiac catheterization demonstrated a very tight left main lesion and the patient is referred for surgical revascularization. As per Dr Meza: Surgery is planned for today. 11/08/24: Patient was seen and evaluated this morning at bedside. The patient is POD 1 s/p CABG. Patient is currently being managed in the ICU. The patients most recent ABG shows a pH of 7.43, ABG PCO2 47, ABG PO2 77.9, ABG HCO3 30.8. Recent ABG shows improving lactic acid, from 8 to 3.85. The patients chemistry reveals a sodium level 157, potassium level 3.4, creatinine 1.9, BUN 19, GFR 38, phosphorous 2.2. Liver enzymes are trending up, with an ALT level at 325 and an AST level at 869. The patients home medication of Synthroid has been restarted. Chest x-ray ordered today, results pending. We will continue to follow recommendations from critical care team, and cardiology. 11/09/2024: Patient is seen and evaluated in the room 213. The patient is POD 2 s/p CABG. Patient is currently being managed in the ICU. He is complaining of pain. His vitals are in the normal range. His Hb is 11.1, WBC is 19.1, Plt is 115, sodium is 154, chloride is 113, glucose is 122. His recent ABG shows that pH is 7.472, pO2 is 80.1, bicarb is 30.4, Hb is 11.4, lactic acid is 1.63. His chest X-ray on 11/08 showed improved aeration within the left perihilar and left basilar regions. As per nurse he is having intervention confusion, stopped lidocaine and they also weaning on pressors norepinephrine and epinephrine. The drain output from left anterior chest is 20ml, mediastinal lateral is 160ml, mediastinal mediastinal is 300ml, right anterior chest is 160 ml. We will continue to follow recommendations from critical care team, and cardiology. 11/10/2024: Patient was seen and evaluated this morning at bedside. The patient is POD 3 s/p CABG. Patient is currently being managed in the ICU. He is not having any symptoms today. His vitals are in the normal range. His labs are normal except for Hb is 10.1, WBC is 14.7, plt is 85, sodium is 147, AST is 156, ALT is 95, APTT is 25.5. ABG shows that his pH is 7.4, lactate is 1.22, bicarb is 31. The drain output from left anterior chest is 170 ml, mediastinal mediastinal is 130ml. We will continue to follow recommendations from critical care team, and cardiology. 11/11/2024: Patient was seen and evaluated this morning at bedside. The patient is POD 4 s/p CABG. He is not having any symptoms today. His vitals are in the normal range. His labs are normal except for hemoglobin is 9.7, WBC is 11.7, platelet is 106, glucose is 107, AST is 87, ALT is 62. ABG shows pH is 7.468, lactic acid is 1.03. We will continue to follow recommendations from critical care team, and cardiology. 11/12/2024: Patient was seen and evaluated in the room 218. The patient is POD 5 s/p CABG. He is having dizziness and ache in the left shoulder. His vitals are in the normal range. His labs are normal except for hemoglobin 9.6, platelets is 94, AST 75. ABG shows pH 7.487, lactic acid 1.2. Currently he is not on any pressors. Cardiovascular surgery tried to wean Impella. They decreased impella setting to P4 but his blood pressure is low so they went back to P5. Cardiovascular surgery also increased his midodrine dose to 15mg. His chest X- ray showed mild pulmonary vascular congestion. He had a bowel movement and good urine output. He is using incentive spirometry well. We will continue to follow recommendations from the critical Care team and Cardiology. 11/13/2024: Patient was seen and evaluated in the room 218. The patient is POD 6 s/p CABG. He is having dizziness and generalized ache. His vitals are in the normal range. His labs are normal except for Hb is 8.9, calcium is 7.4, glucose is 140. His chest x-ray showed that mild borderline cardiomegaly with median sternotomy with cardiac and aspiration procedure, support lines in satisfactory position, no evidence of airspace consolidation or pulmonary venous congestion. He is restarted on norepinephrine and epinephrine drip and impella at P5 as he is hypotensive and has bradycardia. The nurse told me that she will consult anesthesia for changing the arterial line as his line is not working. He is on heparin drip and off of lovenox. The drain output from left anterior chest is 260 ml, mediastinal mediastinal is 60ml. Hematology was consulted as he is in a hypercoagulable state. 11/14/2024: Patient was seen and evaluated in the room 218. The patient is POD 7 s/p CABG. His vital signs are in the normal range except for blood pressure is 88/64. His labs are normal except for hemoglobin is 8.8, APTT is 62.4, glucose is 133, calcium is 7.5, AST is 61. Chest X-ray showed mild cardiomegaly with median sternotomy with cardiac revascularization procedure, support lines are in satisfactory position. His impella is increased to P7 as he is hypotensive and bradycardic. He is on epinephrine. The drain output from left anterior chest is 80ml and from mediastinal mediastinal is 20ml. Hematology saw the patient and they recommended to start folic acid, vitamin B12, ordered SPEP, UPEP, free light chains. They think that the patient might be having hemolytic anemia which could be the reason for his graft clotting after surgery. 11/15/2024: He was evaluated at the bedside this morning. The patient is POD 8 s/p CABG. He is on Impella support with blood pressure 89/64 with map 72. Remarkable lab is for hemoglobin 9.2. Chest x-ray revealed mildly improved right lower lobe airspace opacity with stable cardiac support device and median sternotomy. His MPOA is encouraged to P8 and weaned off the pressors. Hematology recommending Tatiana test to rule out autoimmune hemolytic anemia. Hematology, CT surgery, critical care and cardiology on the board. Rest of the plan as discussed below. 11/16/2024: He was evaluated at the bedside this morning. The patient is POD 9 s/p CABG. Impella support has been weaned to P5 today. As per Dr. Khan, epi will be turned on at 0.03 mcg/kg/min and Impella performance level will be decreased to p4 tomorrow morning. Today, patient's BP is at 102/62, 79bpm and he is on 3L O2 nasal cannula. He is pending direct tatiana test, SPEP, UPEP and Free Light Chain assay as per hematology. His Hb from today is 8.9. Chest Tube drainage is at 201 ml. Hematology, CT surgery, critical care and cardiology on the board. 11/17/2024: He was evaluated at the bedside this morning. The patient is POD 10 s/p CABG. Impella support has been weaned to P4 today. Patient is currently on epinephrine 0.03 mcg/kg/minute as per Dr. Khan. Patient is receiving Lasix for diuresis and her urine output in the past 24 hours has been for 4050 mL. Mediastinal mediastinal chest tube drainage is 40 mL. Left anterior chest tube drainage is 104 mL. Hematology, CT surgery, critical care and cardiology on the board. REVIEW OF SYSTEMS CONSTITUTIONAL: Pain in his left shoulder No fever, chills, or night sweats. NEUROLOGICAL: No headache no sensory and motor deficit. CARDIOVASCULAR: Dizziness Denies any exertional angina, dyspnea on exertion, palpitations. PULMONARY: Denies any shortness of breath, cough, phlegm/sputum, hemoptysis, pleuritic chest pain. GASTROINTESTINAL: Denies nausea, vomiting. Denies pain, tenderness around the abdomen. GENITOURINARY: Denies frequency, urgency, nocturia, hematuria or incontinence. PHYSICAL EXAM GENERAL APPEARANCE: The patient is alert, awake and oriented and bedbound. NEUROLOGICAL: No sensory and motor deficits. CHEST: left anterior chest , mediastinal mediastinal drains are present. Dressing is clean Normal chest expansion. LUNGS: Normal vesicular breath sound. Absence of any rales, rhonchi or any wheezing. CARDIOVASCULAR: Systolic murmur heard over aortic area. Bilateral carotid bruits heard. No JVD. ABDOMEN: Soft nontender, and nondistended. There is no rebound, voluntary guarding, or rigidity. No abdominal bruit heard. GENITOURINARY: No suprapubic tenderness. No costovertebral angle tenderness. EXTREMITIES: Limbs are non-edematous. Vital Signs (last 8hr) Date Time Temp Pulse Resp B/P (MAP) Pulse Ox O2 Delivery O2 Flow Rate FiO2 11/17/24 12:00 98.1 11/17/24 12:00 97 Nasal Cannula* 4 N/A N/C Oxymizer Hi LPM* 11/17/24 11:45 87 23 84/65 (71) 96 116/78 (91) 11/17/24 11:30 81 18 77/45 (56) 95 101/60 (74) 11/17/24 11:28 83 18 11/17/24 11:15 83 23 85/48 (60) 94 98/67 (77) 11/17/24 11:00 92 17 95/63 (74) 96 11/17/24 10:30 77 23 86/48 (61) 96 111/58 (75) 11/17/24 10:15 79 21 77/43 (54) 97 108/55 (72) 11/17/24 10:00 79 18 74/44 (54) 94 79/49 (59) 11/17/24 09:45 83 15 77/45 (56) 94 90/52 (65) 11/17/24 09:30 83 22 76/44 (55) 94 104/71 (82) 11/17/24 09:15 80 71/42 (52) 94 83/58 (66) 11/17/24 09:00 83 16 81/46 (58) 94 85/56 (66) 11/17/24 08:45 81 16 82/46 (58) 92 95/42 (59) 11/17/24 08:30 83 15 78/46 (57) 94 96/50 (65) 11/17/24 08:15 81 16 99/53 (68) 96 99/64 (76) 11/17/24 08:00 98.2 11/17/24 08:00 97 Nasal Cannula* 4 N/A N/C Oxymizer Hi LPM* 11/17/24 07:45 82 17 94 96/46 (63) 11/17/24 07:30 80 20 93 89/52 (64) 11/17/24 07:15 80 21 82/48 (59) 94 94/52 (66) 11/17/24 07:00 82 21 81/48 (59) 96 92/51 (65) LABS: Laboratory: Test 11/17/24 09:13 11/17/24 04:58 11/16/24 07:39 11/16/24 03:58 Range/Units Reticulocyte Count (auto) 3.45573 H 0.42-2.23 % Immature Reticulocyte Fraction 32.80 H 0.18-0.48 % Iron Level 31 L 65-175 mcg/dL Total Iron Binding Capacity 248 L 250-450 mcg/dL Percent Iron Saturation 12.5 L 30-44 % Ferritin 339 30-400 ng/mL Vitamin B12 Level 1052 H 193-986 pg/mL White Blood Count 11.2 H 4.8-10.8 K/uL Red Blood Count 2.69 L 4.50-6.20 MIL/uL Hemoglobin 8.7 L 14.0-18.0 g/dL Hematocrit 26.1 L 42-54 % Mean Corpuscular Volume 97.0 79-99 fL Mean Corpuscular Hemoglobin 32.3 27.0-33.0 pg Mean Corpuscular Hemoglobin Concent 33.3 32.0-36.0 g/dL Red Cell Distribution Width 13.5 11.0-15.5 % Platelet Count 398 # 130-400 K/uL Mean Platelet Volume 10.1 7.5-10.5 fL Nucleated Red Blood Cells 0.0 0.0-0.19 % Activated Partial Thromboplast Time 49.6 H 26.3-35.5 SEC Sodium Level 138 136-145 mmol/L Potassium Level 3.6 3.5-5.1 mmol/L Chloride Level 104 101-111 mmol/L Carbon Dioxide Level 22 21-32 mmol/L Blood Urea Nitrogen 9 7-18 mg/dL Creatinine 1.0 0.5-1.3 mg/dL Glomerular Filtration Rate Calc 82 >90 mL/min Random Glucose 146 H 70-105 mg/dL Total Calcium 8.1 L 8.5-10.1 mg/dL Total Bilirubin 0.5 0.2-1.0 mg/dL Aspartate Amino Transf (AST/SGOT) 35 10-37 U/L Alanine Aminotransferase (ALT/SGPT) 31 12-78 U/L Alkaline Phosphatase 74 50-136 U/L Total Protein 6.2 6.0-8.3 g/dL Albumin 2.3 L 3.5-5.0 g/dL Cortisol AM Sample 13.0 6.2-19.4 ug/dL Magnesium Level 2.20 1.80-2.40 mg/dL Test 11/16/24 03:22 Range/Units Blood Gas Specimen Type Arterial Arterial Blood pH 7.495 H 7.350-7.450 Arterial Blood Partial Pressure CO2 27 L 35-48 mmHg Arterial Blood Partial Pressure O2 86.0 83.0-108.0 mmHg Arterial Blood HCO3 20.3 L 21.0-28.0 mmol/L Arterial Blood Oxygen Saturation 96.3 94.0-98.0 % Arterial Blood Base Excess -2.2 L -2.0-3.0 mmol/L Hemoglobin (Blood Gas) 9.5 L 13.5-17.5 g/dL Sodium (Blood Gas) 137 136-145 MMOL/L Bedside Potassium (Blood Gas) 3.5 3.4-4.5 MMOL/L Bedside Chloride (Blood Gas) 109 H 98-107 MMOL/L Bedside Glucose (Blood Gas) 97 H 65-95 MG/DL Bedside Ionized Calcium (Blood Gas) 1.06 L 1.15-1.33 MMOL/L Bedside Lactic Acid (Blood Gas) 0.97 H 0.36-0.75 MMOL/L Blood Gas Temperature 37.0 35.5-37.0 CELSIUS Blood Gas Flow-by 4.00 0.00-15.00 L/min Blood Gas Vent Mode 4LNC ROOM AIR FiO2 36.0 % Blood Gas Specimen Comment [place] Current Medications Medications (Trade) Dose Ordered Sig/Brittany Route PRN Reason Start Time Stop Time Status Last Admin Dose Admin Acetaminophen (TYLenol 325MG TAB) 650 mg Q4H PRN PO Temp >38.3C(AFTER EXTUBATION) 11/07/24 14:00 12/07/24 13:59 Acetaminophen (TYLenol 325MG TAB) 650 mg Q6H PRN PO TEMPERATURE GREATER THAN 101.5 11/03/24 21:00 11/07/24 14:00 DC 11/06/24 23:00 650 MG Acetaminophen (TYLenol 325MG TAB) 650 mg Q6H PRN PO MILD PAIN (1-3) 11/07/24 14:00 12/07/24 13:59 11/16/24 11:37 650 MG Acetaminophen (TYLenol 650MG SUPPOSITORY) 650 mg Q4H PRN RC Temp >38.3C WHILE INTUBATED 11/07/24 14:00 12/07/24 13:59 Acetaminophen (acetaMINOPHEN) 1,000 mg Q6H IVPB 11/09/24 09:00 11/12/24 08:59 DC 11/12/24 02:11 1,000 MG Acetaminophen (acetaMINOPHEN) 1,000 mg Q6H6 IV 11/07/24 18:00 11/08/24 17:59 DC 11/08/24 18:08 1,000 MG Albumin Human 250 ml @ 0 mls/hr AD PRN IV IF HEMODYNAMICALLY UNSTABLE 11/07/24 14:00 11/08/24 09:57 DC 11/08/24 09:57 125 MLS/HR Albumin Human 250 ml @ 0 mls/hr AD STAT IV 11/15/24 13:09 11/15/24 13:12 DC 11/15/24 13:28 250 MLS/HR Aminocaproic Acid 88211 mg/Sodium Chloride 310 ml @ 25 mls/hr AD IV 11/07/24 14:00 11/08/24 02:23 DC Aminocaproic Acid 08476 mg/Sodium Chloride 480 ml @ 0 mls/hr AD PRN IV BLEEDING CONTROL 11/07/24 11:00 11/07/24 14:03 DC Aspirin (Aspirin 81mg Ec Tab) 81 mg DAILY PO 11/04/24 09:00 12/04/24 08:59 11/17/24 08:09 81 MG Atorvastatin Calcium (LIPItor 40MG) 40 mg HS PO 11/03/24 21:00 11/03/24 20:40 DC Atorvastatin Calcium (LIPItor 40MG) 40 mg HS PO 11/03/24 21:00 11/09/24 07:45 DC 11/07/24 20:15 40 MG Atorvastatin Calcium (LIPItor 40MG) 40 mg HS PO 11/10/24 21:00 12/10/24 20:59 11/16/24 20:14 40 MG Calcium Gluconate (Calcium Gluc 1gm Vial) 1 gm AD PRN IV HYPOCALCEMIA 11/08/24 09:00 11/09/24 07:45 DC 11/08/24 16:36 1 GM Calcium Gluconate 1 gm/Sodium Chloride 60 ml @ 200 mls/hr AD PRN IV HYPOCALCEMIA 11/07/24 14:00 12/07/24 13:59 11/16/24 05:52 200 MLS/HR Cefazolin Sodium (Ancef) 2 gm ONCALL IVPB 11/06/24 22:00 11/07/24 14:00 DC Cefazolin Sodium (Ancef) 2 gm Q8H IVPB 11/07/24 19:00 11/08/24 11:01 DC 11/08/24 11:15 2 GM Clopidogrel Bisulfate (plaVIX 75MG) 75 mg DAILY PO 11/08/24 14:00 12/08/24 13:59 11/17/24 08:09 75 MG Dexmedetomidine/ Sodium Chloride (PRECEdex 400MCG/ 100ML-NS) 400 mcg PROTOCOL IV 11/07/24 14:00 12/07/24 13:59 Dextrose (D50w) 50 ml AD PRN IV HYPOGLYCEMIA PROTOCOL 11/07/24 14:00 12/07/24 13:59 Dextrose/Sodium Bicarbonate 1,025 ml @ 10 mls/hr Q24H IV 11/07/24 19:30 12/07/24 19:29 11/15/24 09:42 10 MLS/HR Docusate Sodium (COLace 100MG CAP) 100 mg BID PO 11/07/24 21:00 11/08/24 10:11 DC 11/07/24 20:15 100 MG Docusate Sodium (COLace 100MG CAP) 100 mg BID PO 11/10/24 09:00 12/10/24 08:59 11/17/24 08:08 100 MG Docusate Sodium (COLace LIQUID 100MG/10ML) 100 mg BID NG 11/08/24 10:30 11/09/24 21:53 DC 11/09/24 20:47 100 MG Enoxaparin Sodium (Lovenox) 30 mg DAILY SQ 11/10/24 09:00 11/13/24 08:38 DC 11/12/24 09:03 30 MG Enoxaparin Sodium (Lovenox) 40 mg DAILY SQ 11/04/24 09:00 11/07/24 13:38 DC 11/05/24 09:06 40 MG Epinephrine HCl 10 mg/Sodium Chloride 250 ml @ 13.948 mls/ hr AD PRN IV POST-OP CARDIOVASCULAR ORDERS 11/07/24 14:00 11/12/24 13:59 DC 11/09/24 19:48 7 MLS/HR Epinephrine HCl 10 mg/Sodium Chloride 250 ml @ 0 mls/hr AD PRN IV TITRATE 11/07/24 11:00 11/07/24 14:02 DC Epinephrine HCl 10 mg/Sodium Chloride 250 ml @ 0 mls/hr PROTOCOL IV 11/12/24 23:30 12/12/24 23:29 11/14/24 03:13 0 MLS/HR Famotidine (Pepcid 20mg Vial) 20 mg BID IV 11/07/24 21:00 11/08/24 08:59 DC 11/08/24 08:11 20 MG Famotidine (Pepcid 20mg Tab) 20 mg DAILY PO 11/04/24 09:00 11/07/24 13:38 DC 11/05/24 09:06 20 MG Folic Acid (FOLic ACID 1 MG TABLET) 1 mg DAILY PO 11/14/24 09:00 12/14/24 08:59 11/17/24 08:09 1 MG Furosemide (LASix 20MG TAB) 20 mg Q12H PO 11/09/24 09:00 12/09/24 08:59 11/17/24 08:10 20 MG Furosemide (LASix 20MG VIAL) 20 mg Q12H IV 11/08/24 09:00 11/09/24 08:59 DC 11/08/24 20:23 20 MG Glucagon (Glucagon 1mg Kit) 1 mg AD PRN IM HYPOGLYCEMIA PROTOCOL 11/07/24 14:00 12/07/24 13:59 Heparin Sodium (Porcine) (HEParin 5,000 UNIT VIAL) *calculation based on ACTUAL B... AD PRN IV HEPARIN PROTOCOL 11/13/24 09:30 12/13/24 09:29 Heparin Sodium/ Dextrose 250 ml @ 0 mls/hr Q6H IV 11/13/24 09:30 12/13/24 09:29 11/17/24 03:21 5 MLS/HR Hydralazine HCl (APRESOLine 20MG INJ) 10 mg Q6H PRN IV For:SBP above 160;DBP above 90 11/03/24 21:00 11/07/24 13:38 DC Insulin Human Regular 100 unit/ Sodium Chloride 100 ml @ 0 mls/hr AD IV 11/07/24 14:00 11/09/24 13:59 DC 11/08/24 12:30 4 MLS/HR Ipratropium [place] (AtrovENT UD) 0.5 MG [id number] IH 11/08/24 12:00 12/08/24 11:59 11/17/24 11:27 0.5 MG Lactulose (Constulose 20gm/ 30ml Udcup) 20 gm BID PRN PO CONSTIPATION 11/03/24 21:00 11/07/24 14:00 DC Lactulose (Constulose 20gm/ 30ml Udcup) 20 gm BID PRN PO CONSTIPATION 11/07/24 14:00 12/07/24 13:59 11/17/24 06:46 20 GM Levothyroxine Sodium (SYNTHroid 125MCG TAB) 125 mcg SYN PO 11/09/24 06:30 12/09/24 06:29 11/17/24 06:13 125 MCG Lidocaine HCl/ Dextrose 250 ml @ 0 mls/hr PROTOCOL PRN IV OTHER [SEE ORDER COMMENTS] 11/08/24 21:00 11/09/24 08:37 DC 11/08/24 21:15 7.5 MLS/HR Magnesium Hydroxide (Milk Of Magnesium 30ml) 30 ml DAILY PRN PO CONSTIPATION 11/07/24 14:00 12/07/24 13:59 Magnesium Sulfate 50 ml @ 12.5 mls/hr AD PRN IV MAG LEVEL LESS THAN 2.0 11/07/24 14:00 12/07/24 13:59 11/09/24 05:59 12.5 MLS/HR Metoprolol Tartrate (loprESSOR) 12.5 mg BID PO 11/09/24 09:00 11/11/24 09:39 DC Metoprolol Tartrate (loprESSOR) 50 mg BID PO 11/04/24 21:00 11/07/24 13:38 DC 11/06/24 20:38 50 MG Midodrine (PROAMatine 5 MG TABLET) 10 mg TID PO 11/09/24 21:00 11/11/24 06:58 DC 11/10/24 20:07 10 MG Midodrine (PROAMatine 5 MG TABLET) 15 mg TID PO 11/11/24 09:00 12/11/24 08:59 11/17/24 13:45 15 MG Montelukast Sodium (SinguLAIR) 10 mg HS PO 11/08/24 21:00 12/08/24 20:59 11/16/24 20:14 10 MG Morphine Sulfate (morPHINE 2MG SYG) 0.5 mg Q2H PRN IV MODERATE PAIN (4-6) 11/07/24 14:00 11/08/24 13:59 DC Morphine Sulfate (morPHINE 2MG SYG) 1 mg Q2H PRN IV SEVERE PAIN (7-10) 11/07/24 14:00 11/08/24 13:59 DC Morphine Sulfate (morPHINE 4MG SYG) 2 mg Q4H PRN IVP SEVERE PAIN (7-10) 11/03/24 21:00 11/07/24 13:38 DC 11/04/24 15:49 2 MG Nitroglycerin (Nitroglycerin 1gm Oint) 0.5 inch Q8H TD 11/03/24 21:00 11/07/24 13:38 DC 11/07/24 05:46 0.5 INCH Nitroglycerin/ Dextrose 0 ml @ 0 mls/hr AD IV 11/07/24 14:00 11/10/24 13:59 DC Norepinephrine Bitartrate 250 ml @ 0 mls/hr AD PRN IV TITRATE 11/07/24 11:00 11/07/24 14:02 DC Norepinephrine Bitartrate 250 ml @ 0 mls/hr AD PRN IV POST-OP CARDIOVASCULAR ORDERS 11/07/24 14:00 11/12/24 13:59 DC 11/09/24 17:09 5.6 MLS/HR Norepinephrine Bitartrate 250 ml @ 0 mls/hr PROTOCOL IV 11/12/24 18:30 12/12/24 18:29 11/13/24 08:42 2 MLS/HR Ondansetron HCl (zoFRAN 4MG INJ) 4 mg Q6H PRN IV NAUSEA/VOMITING 11/03/24 21:00 11/07/24 14:00 DC Ondansetron HCl (zoFRAN 4MG INJ) 4 mg Q6H PRN IV NAUSEA/VOMITING 11/07/24 14:00 12/07/24 13:59 11/09/24 21:50 4 MG Pantoprazole Sodium (PROTonix 40MG INJ) 40 mg BID IVP 11/08/24 09:00 12/08/24 08:59 11/17/24 08:10 40 MG Pharmacy Profile Note (Pharmacy Communication) 1 each ONCE MISC 11/13/24 09:00 11/13/24 08:57 DC Piperacillin Sod/ Tazobactam Sod (Zosyn 3.375gm+NS 50ml) 3.375 gm Q8H IV 11/09/24 10:00 11/09/24 09:38 DC Piperacillin Sod/ Tazobactam Sod (Zosyn 3.375gm+NS 50ml) 3.375 gm Q8H IV 11/09/24 10:00 11/19/24 09:59 11/17/24 10:34 3.375 GM Polyethylene Glycol (MIRalax 3350 17 GM POWD.PACK) 17 gm DAILY PO 11/09/24 09:00 12/09/24 08:59 11/17/24 08:10 17 GM Potassium Phosphate 250 ml @ 42 mls/hr AD PRN IV LOW PHOS LEVEL 11/07/24 14:00 12/07/24 13:59 11/08/24 07:22 42 MLS/HR Potassium Chloride 100 ml @ 100 mls/hr AD PRN IV HYPOKALEMIA 11/07/24 14:00 12/07/24 13:59 11/17/24 06:12 100 MLS/HR Potassium Chloride (K-Dur/Klor-Con 20meq) 20 meq AD PRN PO POTASSIUM PROTOCOL 11/14/24 00:30 12/14/24 00:29 11/17/24 08:09 20 MEQ Potassium Chloride (KCl 10% Elixir 20meq/15ml) 20 meq AD PRN PO POTASSIUM PROTOCOL 11/14/24 00:30 12/14/24 00:29 11/14/24 00:17 20 MEQ Propofol 100 ml @ 0 mls/hr AD PRN IV SEDATION 11/07/24 14:00 11/11/24 13:59 DC Sodium Bicarbonate (Sodium Bicarb 50meq 50ml Vial) 50 meq AD PRN IV OTHER[SEE DOSING INSTRUCTIONS] 11/07/24 14:00 11/10/24 13:59 DC 11/08/24 00:54 50 MEQ Sodium Chloride 500 ml @ 0 mls/hr AD IV 11/07/24 14:00 12/07/24 13:59 11/10/24 00:41 3 MLS/HR Sodium Chloride 1,000 ml @ 10 mls/hr ONCE IV 11/07/24 14:00 11/08/24 13:59 DC 11/07/24 20:11 10 MLS/HR Sodium Chloride 1,000 ml @ 100 mls/hr Q10H IV 11/06/24 12:30 11/06/24 15:29 DC Sodium Chloride (NS Flush 10ml) 10 ml Q8H PRN IVP IV LINE FLUSH 11/07/24 14:00 12/07/24 13:59 Sucralfate (Carafate) 1 gm TID PO 11/08/24 21:00 12/08/24 20:59 11/17/24 13:45 1 GM Tramadol HCl (UltRAM) 25 mg Q6H PRN PO MODERATE PAIN (4-6) 11/07/24 14:00 11/09/24 08:37 DC Tramadol HCl (UltRAM) 50 mg Q6H PRN PO SEVERE PAIN (7-10) 11/07/24 14:00 11/09/24 08:37 DC 11/08/24 23:30 50 MG Vitamin B Complex (Vitamin B-12) 1,000 mcg DAILY IM 11/07/24 09:00 11/13/24 08:59 DC 11/12/24 09:03 1,000 MCG Vitamin B Complex (Vitamin B-12) 1,000 mcg DAILY PO 11/14/24 09:00 12/14/24 08:59 11/17/24 08:09 1,000 MCG DIAGNOSTICS / RADIOLOGY: [ ] ASSESSMENT: Coronary artery disease, POA, s/p CABG 3v and redo sternotomy with redo of graft failure now s/p CABG with 4v Hyperlipidemia, POA Hypothyroidism, POA Peripheral artery disease, suspected Carotid artery stenosis PLAN: Coronary artery disease, POA s/p CABG 3v and redo sternotomy with redo of graft failure now s/p CABG with 4v * Administer aspirin 325 mg p.o. now and then continue aspirin 81 mg p.o. daily * Troponin every 6 hours, serial troponin levels are 9-11. * Supplemental oxygen as needed to maintain SpO2 greater than 94% * Monitor for recurrence of chest pain, arrhythmias, or hemodynamic changes * Electrocardiogram was done which is normal. * A 2D Echo has been ordered due to patients history of chest pain on exertion and rest. * A cardiology consult has been placed for evaluation of CAD in patient with exertional chest pain and vascular disease. 11/04/24 * Echocardiogram was done which revealed aortic valve: trileaflet, mildly sclerotic, and opens well. * Pending Coronary CTA reports. * Lipid panels has been ordered to assess Cardiovascular risks. Results unremarkable. * In coronary CT angiography there is mixed calcified and noncalcified plaque in the proximal LAD with 80-90% stenosis. Left circumflex coronary artery: Normal caliber, nondominant and gives rise to a large OM branch. There is mixed calcified and noncalcified plaque in the mid LCx with 80-90% stenosis. * CAD-RAD of 4B. * Left heart catheterization with selective right and left coronary angiography was performed which showed critical left main disease. Severe ostial RCA stenosis. 11/06/24 * He complaints of headache 8/10 of intensity after the administration of Nitroglycerin. Tylenol has been administered. Closely monitoring the patient. * Cardiac catheterization demonstrated a very tight left main lesion and the patient is referred for surgical revascularization. * Patient is POD 9 S/P CABG, patient is being managed in the ICU per protocol. * Recent ABG shows lactic acid is 1.21. * epinephrine drip was restarted at 0.03 mcg/kg/min as per Dr. Khan yesterday. * His impella setting is decreased to be P4 as per Cardiology. * We will continue to follow Cardiology and critical care recommendations. * He is on heparin drip and off lovenox. * Hematology saw the patient and they recommended to start folic acid, vitamin B12, ordered SPEP, UPEP, free light chains. They think that the patient might be having hemolytic anemia which could be the reason for his graft clotting after surgery. * Cardiology plan to wean him of the pressors than impella. Peripheral vascular disease, Suspected * Patient has history of exertional bilateral leg pain * Diminished peripheral pulses * A SERA has been ordered due to the patients complaint of bilateral lower extrem ity claudication, and numbness/tingling in bilateral lower extremities. * Clear aspirin 81 mg daily and statin 40mg * Encouraged supervised exercise therapy for claudication * Counseled on continued smoking cessation 11/04/24 Peripheral Neuropathy * Vitamin B12 has been ordered to rule out peripheral neuropathy.11/05/24 * Complained of numbness and tingling in his limbs. * Vitamin B12 level was measured which showed 173L. * Patient has been started on vitamin B12 supplement 1000 mcg for 6 days. Carotid artery stenosis * Presence of bilateral carotid bruit on exam, suspicion for significant stenosis * Carotid Duplex ultrasound has been done, awaiting reports * Risk factor modification: Smoking cessation, BP control, glycemic control. 11/04/24 * Carotid artery ultrasound showed Bilateral ICA/CCA ratio more than 4.0 suggesting more than 70% stenosis. 11/05/24 * Cardiology recommended CT/MR angiogram when stable from surgical standpoint Hyperlipidemia * Continue home statin therapy atorvastatin 40 mg * Reinforce low-cholesterol, heart healthy diet (limit saturated fats, increase fiber, fruits and vegetables) * Encouraged regular physical activity as tolerated * Monitor lipid panel * Outpatient follow up with PCP/Cardiology for long-term lipid management and cardiovascular risks reduction Supportive measures * Start patient on GI prophylaxis * DVT prophylaxis * Monitor morning labs CBC and BMP daily * He is on clear liquid diet Hypothyroidism * Continue home dose of levothyroxine at 125 mcg daily * TSH 1.33. ATTESTATION BY PHYSICIAN I have seen and examined the patient. I reviewed the documentation, medical decision making, and treatment plan as noted by the resident above. I agree with the findings and plan of care. ATUL,VITOR YOUSSEF MD, MD Nov 17, 2024 14:49
[2024-11-18] VITALS (95 sets, daily range): BP systolic 14–300; BP diastolic 8–300; PULSE 67–93; RESP 10–60; TEMP 97.5–98.7; O2SAT 94–96
--- NOTE | 2024-11-18 02:52 | PN ---
TIME: 11:00 a.m. SUBJECTIVE: The patient is a 69-year-old gentleman who had Impella assisted CABG. No major events overnight. Remains on low dose epinephrine and Impella assist device at P4. PHYSICAL EXAMINATION: NEURO: Alert and oriented. No deficits. CARDIAC: S1, S2, regular rate and rhythm. RESPIRATORY: Clear to auscultation bilaterally. ASSESSMENT AND PLAN: Coronary artery disease status post coronary artery bypass graft, on aspirin, statin, beta-betty. Impella is at T4. We will go down to T3 tomorrow. Hopefully we can remove the Impella tomorrow or . Volume overload. He continues with Lasix IV. Hypercholesterolemia, on high statin therapy. Overall, the patient is recovering well. We will try to wean the Impella and remove it in the next couple of days. TID: [id number] RECEIPT: [id number]
[2024-11-18 05:18] LABS: NUCLEATED RED BLOOD CELLS 0.0 % (0.0-0.19); PLATELET COUNT (AUTO) 483.0 K/uL (130-400); RED BLOOD CELL COUNT(AUTO) 2.77 MIL/uL (4.50-6.20); RED CELL DISTRIBUTION WIDTH 13.7 % (11.0-15.5); WHITE BLOOD COUNT (AUTO) 14.2 K/uL (4.8-10.8)
[2024-11-18 05:36] LABS: CREATININE 1.1 mg/dL (0.5-1.3); GLOMERULAR FILTR. RATE CALC 73.0 mL/min (>90); GLUCOSE,RANDOM 137.0 mg/dL (70-105); SODIUM SERUM 139.0 mmol/L (136-145); UREA NITROGEN, BLOOD 8.0 mg/dL (7-18)
--- NOTE | 2024-11-18 06:03 | HMCIMG ---
EXAM: CR Chest, 1 View. CLINICAL HISTORY: pp COMPARISON: Nov 16, 2024. FINDINGS: LUNGS: There is no mass, infiltrate, or acute pulmonary abnormality. Mild pulmonary venous congestion. PLEURAL SPACES: No evidence of pleural effusion or pneumothorax. MEDIASTINUM: Cardiomegaly. Status post CABG. Right internal jugular central line tip in proximal SVC. BONES: No acute osseous abnormality. IMPRESSION: No acute cardiopulmonary pathology is evident. No gross interval change. Mild pulmonary venous congestion. Right internal jugular central line tip in proximal SVC. /[place]
--- NOTE | 2024-11-18 08:48 | PN ---
[facility] CARDIOLOGY PROGRESS NOTE Date Patient Seen: Nov 18, 2024 Time of Visit: 08:47 Interval History: urine output 3400 cc/24 hours, CXR clear Physical Examination: GENERAL: No acute distress. HEAD: Normal with no signs of head trauma. EYES: PERRLA, EOMI, conjunctiva and sclera normal. ENT: Hearing grossly intact, normal oropharynx. NECK: Supple without JVD. There is no tenderness, lymphadenopathy, or masses. No thyromegaly. Normal carotid upstrokes without bruits. LUNGS: Clear breath sounds bilaterally. No wheezes, or rhonchi. HEART: Normal rate and rhythm. Normal S1 and S2 without murmurs, gallop or rub. VASC: Peripheral pulses +2 bilaterally. ABD: Bowel sounds normal, soft, nontender, no masses, no organomegaly. No audible bruits. : Not examined LYMPH: No lymphadenopathy noted. EXT: No clubbing, cyanosis or edema. SKIN: No rashes or lesions noted. NEURO: Awake, alert, and oriented x3. No focal sensory or strength deficits noted. Laboratory: [ ] Hematology Labs: Test 11/18/24 05:00 11/17/24 09:13 Range/Units White Blood Count 14.2 H 4.8-10.8 K/uL Red Blood Count 2.77 L 4.50-6.20 MIL/uL Hemoglobin 9.0 L 14.0-18.0 g/dL Hematocrit 26.7 L 42-54 % Mean Corpuscular Volume 96.4 79-99 fL Mean Corpuscular Hemoglobin 32.5 27.0-33.0 pg Mean Corpuscular Hemoglobin Concent 33.7 32.0-36.0 g/dL Red Cell Distribution Width 13.7 11.0-15.5 % Platelet Count 483 H 130-400 K/uL Mean Platelet Volume 9.9 7.5-10.5 fL Nucleated Red Blood Cells 0.0 0.0-0.19 % Reticulocyte Count (auto) 3.02422 H 0.42-2.23 % Immature Reticulocyte Fraction 32.80 H 0.18-0.48 % Chemistry Labs: Test 11/18/24 05:00 11/17/24 09:13 11/17/24 04:58 Range/Units Sodium Level 139 136-145 mmol/L Potassium Level 3.6 3.5-5.1 mmol/L Chloride Level 103 101-111 mmol/L Carbon Dioxide Level 24 21-32 mmol/L Blood Urea Nitrogen 8 7-18 mg/dL Creatinine 1.1 0.5-1.3 mg/dL Glomerular Filtration Rate Calc 73 >90 mL/min Random Glucose 137 H 70-105 mg/dL Total Calcium 8.4 L 8.5-10.1 mg/dL Iron Level 31 L 65-175 mcg/dL Total Iron Binding Capacity 248 L 250-450 mcg/dL Percent Iron Saturation 12.5 L 30-44 % Ferritin 339 30-400 ng/mL Vitamin B12 Level 1052 H 193-986 pg/mL Total Bilirubin 0.5 0.2-1.0 mg/dL Aspartate Amino Transf (AST/SGOT) 35 10-37 U/L Alanine Aminotransferase (ALT/SGPT) 31 12-78 U/L Alkaline Phosphatase 74 50-136 U/L Total Protein 6.2 6.0-8.3 g/dL Albumin 2.3 L 3.5-5.0 g/dL Coagulation Labs: Test 11/18/24 05:00 Range/Units Activated Partial Thromboplast Time 51.8 H 26.3-35.5 SEC Diagnostics / Radiology: [Copy/Paste Echos/Imaging Report here] Impression and Plan: [Unstable angina pectoris Abnormal CT coronary angiogram 11/05/2024 demonstrating a CAD-RADs score of 4B mixed calcified and noncalcified plaque in the left main with 50% stenosis, 80- 90% stenosis in the proximal LAD and 80-90% stenosis in mid left circumflex Critical left main and ostial RCA stenosis by cardiac catheterization 11/06/2024 S/p CABG with initial graft failure converted to Impella supported redo (CHILD- LAD, SVG-OM2, SVG-RCA and SVG-LAD) on 11/07/[address] Meza LVEF of 60-65% by 2D echocardiogram 11/05/2024 Mild ischemic cardiomyopathy with an LVEF of 40-45% by 2D echocardiogram 11/12/2024 Bilateral ICA disease with >70% stenosis by Doppler on 11/04/2024 Transaminitis, improved Thrombocytopenia, improved Hyperlipidemia CAD s/p PTCA to unknown vessel approximately 30 years ago Ex-smoker of 1 PPD with cessation 2 months ago Graves disease S/p CABG with initial graft failure converted to Impella supported redo (CHILD- LAD, SVG-OM2, SVG-RCA and SVG-LAD) on 11/07/[address] Derrcik Patel at P-4 -The patient is maintained on Epinephrine and Heparin infusions -The patient is not a candidate for beta-betty therapy until weaned off of Epinephrine and if hemodynamically stable. Continue Midodrine 15mg TID. -Continue Aspirin 81 mg daily, Plavix 75 mg daily, Atorvastatin 40 mg q.h.s., and Lasix 20 mg p.o. every 12 hours -Continue management per Cardiothoracic surgery -PT/OT Carotid artery disease Carotid US 11/05: Mild intimal thickening in the bilateral carotid arteries and their branches. Bilateral ICA/CCA ratio is more than 4.0 suggesting more than 70% stenosis. Raised velocities in the bilateral external and internal carotid arteries. -Recommend CT/MR angiogram when stable from surgical standpoint -Continue Aspirin 81 mg daily and Atorvastatin 40 mg q.h.s. Thrombocytopenia, improved Platelets today of 398K/uL -Hematology ordered SPEP, UPEP and free light chain laboratories. If there is monoclonal protein, plans for a bone marrow biopsy. 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 YESICA MARTINEZ MD Nov 18, 2024 08:48
--- NOTE | 2024-11-18 09:44 | PN ---
[facility] PROGRESS NOTE Date Patient Seen: Nov 18, 2024 Time of Visit: 09:40 Supervising Physician: Yung Davila MD Primary Care Physician: Self Referral Outpatient Specialists: [ ] Inpatient Consults: PEG, Dr Jacobo, Dr Wellington , Dr Meza PROBLEM LIST: MvCAD s/p CABG x 3+1 w/ redo on 11/07/24 Impella 5 x 5 Postop acute anemia requiring transfusion ELSA Hyperlipidemia Sclerotic nodule on the non coronary cusp on 2D echo Normal ventricular diastolic function with LVEF of 60-65% on 2D echo 11/05/24 Former smoker Graves disease Obesity INTERVAL HISTORY: Day 11. Post CABG. Patient continues on MCS with the Impella 5.5 at P4. he continues on low-dose epi at 0.05 mcg/kg per minute. He is awake alert and oriented x3. he has no complaints other than some mild constipation. Patient is currently on a bowel regimen and we will one time dose Dulcolax suppository. Currently on room air saturating 94% in no respiratory distress with a res piratory rate of 20 heart rate in the 80s blood pressure is marginal 93/59. Chest x-ray with lines in good position. No pneumothorax or large pleural effusion. White count 14.2 similar to yesterday slightly higher but no fevers. Hemoglobin 9 hematocrit 26.7 and platelet count of 483 K. chemistry unremarkable kidneys are doing well creatinine 1.1 GFR of 73. Patient with good urine output 3.4 L in last24 hours balance of-2.7 L chest tube drained 140 mL to nitro chest and 60 mL in the mediastinum. Plan: Following Cardiothoracic Surgeons postop protocol Neurovascular checks per protocol Weaning Impella per CTS I&Os Cardiac diet Telemetry PT/OT Continue bowel regimen One time dose 250 mL of NS bolus. Heme-Onc recommendations Continue IS Q 1 hour while awake. TSH in a.m. Total critical care time 45 minutes, patient remains critical requiring pressors, Impella support. Time excludes any educational time or procedures performed REVIEW OF SYSTEMS: 12 point ROS reviewed with patient. Pertinent positives mentioned above. Otherwise negative. PHYSICAL EXAM: GENERAL: alert, weak, awake oriented x 3 HEENT: EOMI, Sclera non icteric, moist mucosa NECK: Supple, no JVD, trachea midline right IJ. Subclavian Impella 5.5 LUNGS: Rhonchi to right lower lobes. No wheezes HEART: Regular rate and rhythm. Normal S1 and S2, without murmurs mid incision line tenderness. Dressing clean dry and intact. ABD: Abdomen soft, nontender. Bowel sounds present EXT: No clubbing cyanosis or edema. Left femoral sheath. NEURO: Alert and oriented to person, follows commands Vital Signs (last 8hr) Date Time Temp Pulse Resp B/P (MAP) Pulse Ox O2 Delivery O2 Flow Rate FiO2 11/18/24 09:15 84 23 152/99 (116) 95 96/61 (73) 11/18/24 09:00 85 22 90/60 (70) 95 81/32 (48) 11/18/24 08:45 83 16 85/53 (64) 96 11/18/24 08:30 83 21 93/52 (66) 96 102/79 (87) 11/18/24 08:15 83 21 97/56 (70) 98 101/72 (82) 11/18/24 08:00 94 Room Air* 0 21 11/18/24 08:00 98.1 11/18/24 08:00 98.1 86 19 99/53 (68) 95 78/35 (49) 11/18/24 07:45 85 20 99/53 (68) 95 98/70 (79) 11/18/24 07:30 78 23 87/47 (60) 94 110/74 (86) 11/18/24 07:15 87 14 91/53 (66) 97 98/70 (79) 11/18/24 07:00 80 16 93 99/61 (74) 11/18/24 06:45 76 22 92 89/48 (62) 11/18/24 06:12 77 23 /300 91 88/48 (61) 11/18/24 06:10 77 22 92 98/45 (62) 11/18/24 06:09 79 20 11/18/24 06:09 79 18 N/A Room Air 21 11/18/24 05:55 80 10 300/299 (299) 97 91/54 (66) 11/18/24 05:40 78 24 297/296 (296) 96 76/49 (58) 11/18/24 05:25 80 21 80/67 (71) 94 83/56 (65) 11/18/24 05:10 81 26 77/39 (52) 96 99/54 (69) 11/18/24 04:55 81 25 135/89 (104) 93 91/53 (66) 11/18/24 04:40 76 21 79/41 (54) 94 89/48 (62) 11/18/24 04:25 79 11 95 113/53 (73) 11/18/24 04:10 78 19 101/93 (96) 94 91/53 (66) 11/18/24 04:00 98.4 11/18/24 04:00 96 Room Air* 0 21 11/18/24 03:55 75 20 124/119 (121) 93 101/51 (68) 11/18/24 03:40 78 13 156/150 (152) 94 102/48 (66) 11/18/24 03:25 80 16 73/50 (58) 94 90/51 (64) 11/18/24 03:10 77 17 73/58 (63) 96 107/54 (71) 11/18/24 02:55 77 20 94 90/41 (57) 11/18/24 02:42 70 21 95 90/56 (67) 11/18/24 02:38 73 17 94 73/26 (42) 11/18/24 02:36 70 18 94 80/42 (55) 11/18/24 02:25 68 17 96 73/41 (52) 11/18/24 02:10 68 16 97 109/45 (66) 11/18/24 01:56 75 25 296/300 (299) 96 95/65 (75) LABS: Hematology Labs: Test 11/18/24 05:00 11/17/24 09:13 Range/Units White Blood Count 14.2 H 4.8-10.8 K/uL Red Blood Count 2.77 L 4.50-6.20 MIL/uL Hemoglobin 9.0 L 14.0-18.0 g/dL Hematocrit 26.7 L 42-54 % Mean Corpuscular Volume 96.4 79-99 fL Mean Corpuscular Hemoglobin 32.5 27.0-33.0 pg Mean Corpuscular Hemoglobin Concent 33.7 32.0-36.0 g/dL Red Cell Distribution Width 13.7 11.0-15.5 % Platelet Count 483 H 130-400 K/uL Mean Platelet Volume 9.9 7.5-10.5 fL Nucleated Red Blood Cells 0.0 0.0-0.19 % Reticulocyte Count (auto) 3.33367 H 0.42-2.23 % Immature Reticulocyte Fraction 32.80 H 0.18-0.48 % Chemistry Labs: Test 11/18/24 05:00 11/17/24 09:13 11/17/24 04:58 Range/Units Sodium Level 139 136-145 mmol/L Potassium Level 3.6 3.5-5.1 mmol/L Chloride Level 103 101-111 mmol/L Carbon Dioxide Level 24 21-32 mmol/L Blood Urea Nitrogen 8 7-18 mg/dL Creatinine 1.1 0.5-1.3 mg/dL Glomerular Filtration Rate Calc 73 >90 mL/min Random Glucose 137 H 70-105 mg/dL Total Calcium 8.4 L 8.5-10.1 mg/dL Iron Level 31 L 65-175 mcg/dL Total Iron Binding Capacity 248 L 250-450 mcg/dL Percent Iron Saturation 12.5 L 30-44 % Ferritin 339 30-400 ng/mL Vitamin B12 Level 1052 H 193-986 pg/mL Total Bilirubin 0.5 0.2-1.0 mg/dL Aspartate Amino Transf (AST/SGOT) 35 10-37 U/L Alanine Aminotransferase (ALT/SGPT) 31 12-78 U/L Alkaline Phosphatase 74 50-136 U/L Total Protein 6.2 6.0-8.3 g/dL Albumin 2.3 L 3.5-5.0 g/dL Coagulation Labs: Test 11/18/24 05:00 Range/Units Activated Partial Thromboplast Time 51.8 H 26.3-35.5 SEC DIAGNOSTICS / RADIOLOGY RESULTS: [place] [address] IMAGING REPORT Signed PATIENT: CLARE KERR MR#: [id number] : 1955 SEX: M AGE: 69 LOCATION: 2CH ORDER 2300 STATUS: ADM IN REPORT#: [id number] SERVICE 0600 REASON: pp ORDERING PHYSICIAN: SNOW MATAMOROS PAC PROCEDURE: CXR1VW - CHEST 1VW Comparison: Yesterday Findings: The heart is enlarged in size and the lungs are clear. There are no pleural effusions. There is no acute fracture. There is no pneumothorax. Right IJ sheath is in the SVC. Left-sided chest tube is in place. IMPRESSION: Cardiomegaly. No acute process /[place] DICTATED BY: CASPER SWARTZ MD DATE: 11/18/241516 ELECTRONICALLY SIGNED BY: CASPER SWARTZ MD DATE: 11/18/241516 [ ] PLAN NEURO: Minimize central acting medications as possible. Fall Precautions. Well lighted room through the day and minimize interruptions through the night to prevent acute delirium. PULMONARY: Supplemental 02 as needed Titrate Fio2 to keep Spo2 > or = 90% DuoNebs and CPT as needed IS hourly while awake for pulmonary hygiene Out of bed to chair as tolerated VAP Bundle Bipap 12/6 fio2 50% RT to titrate FiO2 as needed to maintain O2 above 92% CARDIOVASCULAR: Follow hemodynamics. Titrate vasopressor to keep MAP >65 or systolic blood pressure >95mmHg DIPS: Epi LINES: Central venous catheter right IJ Impella 5.5 Chest tube A line Daniel catheter GI & NUTRITION: NPO for now Aspirations precautions Prokinetic agents and laxatives as needed KIDNEYS & ELECTROLYTES: Strict monitoring of intake and output Daily weights Avoid nephrotoxic agents Monitor electrolytes and replace as needed Goal urine output of 30mL/hr or 0.5mL/kg/hr Urine output 2 L in last 24 hours Chest tube drained 400 mL to lateral side Mediastinal drain 90 mL with I&O balance positive 230 mL ENDOCRINE: Maintain blood glucose between 100-180 at all times. Insulin sliding scale for blood glucose management INFECTIOUS DISEASE: Trend temperature. Nichols-culture if febrile. Micro: [ ] MRSA negative Antibiotics: [ ] Ancef HEMATOLOGY & COAGULATION: Monitor H&H. Keep Hgb > 7 Transfuse 1 unit of PRBC for Hgb < 7 Transfuse 1 pack of platelets of platelets < 20, 000 Watch for any signs and symptoms of bleeding SKIN: Pressure ulcer prevention per facility protocol Rehab: PT/OT Prophylaxis: GI: [ Protonix 40 mg IV b.i.d.] DVT: Heparin per CV Code Status: Full Resuscitation Disposition: [ TBD Case was discussed and seen with my supervising physician. The above plan was formulated and agreed upon. ATTESTATION BY PHYSICIAN I attest that I reviewed and discussed the case with the Physician Associate Attorney as well as agree with the Physician Associate Attorney's findings, plans of care, and documentation above. Yung Mead MD, [facility] Nov 18, 2024 09:44
[2024-11-18] MEDS: 0.9% NACL 250ML 250 ML IV SCH (10:13)
[2024-11-18] MEDS ORDERED: COMPOUND IV MISC 1 EACH IVSOLN MISC PRN (13:00)
--- NOTE | 2024-11-18 13:02 | PN ---
[facility] PROGRESS NOTE Date of Service: Nov 18, 2024 Time of Service: 8:40 SUBJECTIVE: Mr. Valadez a 68-year-old male that was seen and examined today on 11/03/2024. Patient reports that he came to the emergency department with a chief complaint of chest pain. Onset was two or three years ago. He had similar repeated episodes months back which resolved on its own. Today's episode began at 11:00 a.m. Location is midsternal. Duration is on and off. Character is described as "neck someone is pushing a knuckle into the center of my chest. The chest pain did not radiate to shoulder, neck or jaw. "There was no alleviating factors. There was no aggravating factors. Patient reports that symptoms seemingly resolve on their own. He denies nausea, vomiting, fever and any other associated symptoms. Patient denies any associated shortness of breath. Patient has a past medical history of hyperlipidemia and Graves disease. He has been taking atorvastatin and Synthroid as his home medications. Today in the emergency department WBC 5.8, hemoglobin 12.9 platelets 197. His chemistries were within normal limits sodium 140, potassium 4.2, blood urea nitrogen 15 and creatinine 1.0. His electrocardiogram showed normal sinus rhythm. Patient will be admitted for further evaluation and related recommendations in Med-Surg. 11/04/24 Patient was evaluated at the bedside in ED-09. He reports that he is having chest pain that comes and goes. The patient reports having 2 episodes of chest pain in the last hour. He denies associated symptoms such as shortness of breath, palpitation, diaphoresis, dizziness, nausea or syncope. He does however complain of muscle pain in his lower limbs described as a dull aching discomfort that begins in the hip region that is worsened with movement. The patient complains of tingling and numbness in his feet bilaterally. No fever, chills or recent infection reported. Appetite and oral intake are normal. No other acute complaints at this time. On physical exam, a systolic murmur was auscultated over the aortic area. Bilateral carotid bruits are present. Lower extremities are cool to the touch with diminished pedal pulses. Patient reports bilateral leg muscle pain with exertion (suggestive of claudication), and chronic numbness and tingling in the feet. Patient reports recently quitting smoking tobacco for 2 months. He had a 1 pack a day smoking history since 1968. 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 The patient says his chest pain has been ongoing for the past 3 years, and that it gets worse with exertion and at rest. 11/05/24 Patient was evaluated at the bedside room 231. He was hemodynamically stable. Hi symptoms has improved significantly. He doesn't complain of chest pain, shortness of breath and any other associated symptoms. Echocardiogram was done which revealed aortic valve: trileaflet, mildly sclerotic, and opens well. Carotid artery ultrasound showed Bilateral ICA/CCA ratio more than 4.0 suggesting more than 70% stenosis. 11/06/24 Patient was evaluated at the bedside room 231. He was hemodynamically stable. Hi symptoms has improved significantly. He doesn't complain of chest pain, shortness of breath and any other associated symptoms. In coronary CT angiography there is mixed calcified and noncalcified plaque in the proximal LAD with 80-90% stenosis. Left circumflex coronary artery: Normal caliber, nondominant and gives rise to a large OM branch. There is mixed calcified and noncalcified plaque in the mid LCx with 80-90% stenosis. CAD-RAD of 4B. Left heart catheterization with selective right and left coronary angiography was performed which showed critical left main disease. 11/07/24 Patient was evaluated at the bedside room 231. He was hemodynamically stable. He doesn't complain of chest pain, shortness of breath and any other associated symptoms. He complaints of headache 8/10 of intensity after the administration of Nitroglycerin. Cardiac catheterization demonstrated a very tight left main lesion and the patient is referred for surgical revascularization. As per Dr Meza: Surgery is planned for today. 11/08/24: Patient was seen and evaluated this morning at bedside. The patient is POD 1 s/p CABG. Patient is currently being managed in the ICU. The patients most recent ABG shows a pH of 7.43, ABG PCO2 47, ABG PO2 77.9, ABG HCO3 30.8. Recent ABG shows improving lactic acid, from 8 to 3.85. The patients chemistry reveals a sodium level 157, potassium level 3.4, creatinine 1.9, BUN 19, GFR 38, phosphorous 2.2. Liver enzymes are trending up, with an ALT level at 325 and an AST level at 869. The patients home medication of Synthroid has been restarted. Chest x-ray ordered today, results pending. We will continue to follow recommendations from critical care team, and cardiology. 11/09/2024: Patient is seen and evaluated in the room 213. The patient is POD 2 s/p CABG. Patient is currently being managed in the ICU. He is complaining of pain. His vitals are in the normal range. His Hb is 11.1, WBC is 19.1, Plt is 115, sodium is 154, chloride is 113, glucose is 122. His recent ABG shows that pH is 7.472, pO2 is 80.1, bicarb is 30.4, Hb is 11.4, lactic acid is 1.63. His chest X-ray on 11/08 showed improved aeration within the left perihilar and left basilar regions. As per nurse he is having intervention confusion, stopped lidocaine and they also weaning on pressors norepinephrine and epinephrine. The drain output from left anterior chest is 20ml, mediastinal lateral is 160ml, mediastinal mediastinal is 300ml, right anterior chest is 160 ml. We will continue to follow recommendations from critical care team, and cardiology. 11/10/2024: Patient was seen and evaluated this morning at bedside. The patient is POD 3 s/p CABG. Patient is currently being managed in the ICU. He is not having any symptoms today. His vitals are in the normal range. His labs are normal except for Hb is 10.1, WBC is 14.7, plt is 85, sodium is 147, AST is 156, ALT is 95, APTT is 25.5. ABG shows that his pH is 7.4, lactate is 1.22, bicarb is 31. The drain output from left anterior chest is 170 ml, mediastinal mediastinal is 130ml. We will continue to follow recommendations from critical care team, and cardiology. 11/11/2024: Patient was seen and evaluated this morning at bedside. The patient is POD 4 s/p CABG. He is not having any symptoms today. His vitals are in the normal range. His labs are normal except for hemoglobin is 9.7, WBC is 11.7, platelet is 106, glucose is 107, AST is 87, ALT is 62. ABG shows pH is 7.468, lactic acid is 1.03. We will continue to follow recommendations from critical care team, and cardiology. 11/12/2024: Patient was seen and evaluated in the room 218. The patient is POD 5 s/p CABG. He is having dizziness and ache in the left shoulder. His vitals are in the normal range. His labs are normal except for hemoglobin 9.6, platelets i s 94, AST 75. ABG shows pH 7.487, lactic acid 1.2. Currently he is not on any pressors. Cardiovascular surgery tried to wean Impella. They decreased impella setting to P4 but his blood pressure is low so they went back to P5. Cardiovascular surgery also increased his midodrine dose to 15mg. His chest X- ray showed mild pulmonary vascular congestion. He had a bowel movement and good urine output. He is using incentive spirometry well. We will continue to follow recommendations from the critical Care team and Cardiology. 11/13/2024: Patient was seen and evaluated in the room 218. The patient is POD 6 s/p CABG. He is having dizziness and generalized ache. His vitals are in the normal range. His labs are normal except for Hb is 8.9, calcium is 7.4, glucose is 140. His chest x-ray showed that mild borderline cardiomegaly with median sternotomy with cardiac and aspiration procedure, support lines in satisfactory position, no evidence of airspace consolidation or pulmonary venous congestion. He is restarted on norepinephrine and epinephrine drip and impella at P5 as he is hypotensive and has bradycardia. The nurse told me that she will consult anesthesia for changing the arterial line as his line is not working. He is on heparin drip and off of lovenox. The drain output from left anterior chest is 260 ml, mediastinal mediastinal is 60ml. Hematology was consulted as he is in a hypercoagulable state. 11/14/2024: Patient was seen and evaluated in the room 218. The patient is POD 7 s/p CABG. His vital signs are in the normal range except for blood pressure is 88/64. His labs are normal except for hemoglobin is 8.8, APTT is 62.4, glucose is 133, calcium is 7.5, AST is 61. Chest X-ray showed mild cardiomegaly with median sternotomy with cardiac revascularization procedure, support lines are in satisfactory position. His impella is increased to P7 as he is hypotensive and bradycardic. He is on epinephrine. The drain output from left anterior chest is 80ml and from mediastinal mediastinal is 20ml. Hematology saw the patient and they recommended to start folic acid, vitamin B12, ordered SPEP, UPEP, free light chains. They think that the patient might be having hemolytic anemia which could be the reason for his graft clotting after surgery. 11/15/2024: He was evaluated at the bedside this morning. The patient is POD 8 s/p CABG. He is on Impella support with blood pressure 89/64 with map 72. Remarkable lab is for hemoglobin 9.2. Chest x-ray revealed mildly improved right lower lobe airspace opacity with stable cardiac support device and median sternotomy. His MPOA is encouraged to P8 and weaned off the pressors. Hematology recommending Tatiana test to rule out autoimmune hemolytic anemia. Hematology, CT surgery, critical care and cardiology on the board. Rest of the plan as discussed below. 11/16/2024: He was evaluated at the bedside this morning. The patient is POD 9 s/p CABG. Impella support has been weaned to P5 today. As per Dr. Khan, epi will be turned on at 0.03 mcg/kg/min and Impella performance level will be decreased to p4 tomorrow morning. Today, patient's BP is at 102/62, 79bpm and he is on 3L O2 nasal cannula. He is pending direct tatiana test, SPEP, UPEP and Free Light Chain assay as per hematology. His Hb from today is 8.9. Chest Tube drainage is at 201 ml. Hematology, CT surgery, critical care and cardiology on the board. 11/17/2024: He was evaluated at the bedside this morning. The patient is POD 10 s/p CABG. Impella support has been weaned to P4 today. Patient is currently on epinephrine 0.03 mcg/kg/minute as per Dr. Khan. Patient is receiving Lasix for diuresis and her urine output in the past 24 hours has been for 4050 mL. Mediastinal mediastinal chest tube drainage is 40 mL. Left anterior chest tube drainage is 104 mL. Hematology, CT surgery, critical care and cardiology on the board. 11/18/2024: He was evaluated at the bedside this morning. The patient is POD 11 s/p CABG. Impella support continues on P4 today. Plan is to wean off further tomorrow. Patient is currently on epinephrine 0.05 mcg/kg per minute. His blood pressure is running low, 88/48. Patient is receiving Lasix for diuresis and his urine output in the past 24 hours has been for 3400 mL. Mediastinal mediastinal chest tube drainage is 60 mL. Left anterior chest tube drainage is 140 mL. Hematology, CT surgery, critical care and cardiology on the board. As per Hematology recommendations, IV iron sucrose was ordered since iron panel showed low iron, and low percentage saturation. REVIEW OF SYSTEMS CONSTITUTIONAL: Pain in his left shoulder No fever, chills, or night sweats. NEUROLOGICAL: No headache no sensory and motor deficit. CARDIOVASCULAR: Dizziness Denies any exertional angina, dyspnea on exertion, palpitations. PULMONARY: Denies any shortness of breath, cough, phlegm/sputum, hemoptysis, pleuritic chest pain. GASTROINTESTINAL: Constipation. Denies nausea, vomiting. Denies pain, tenderness around the abdomen. GENITOURINARY: Denies frequency, urgency, nocturia, hematuria or incontinence. PHYSICAL EXAM GENERAL APPEARANCE: The patient is alert, awake and oriented and bedbound. NEUROLOGICAL: No sensory and motor deficits. CHEST: left anterior chest , mediastinal mediastinal drains are present. Dressing is clean Normal chest expansion. LUNGS: Normal vesicular breath sound. Absence of any rales, rhonchi or any wheezing. CARDIOVASCULAR: Systolic murmur heard over aortic area. Bilateral carotid bruits heard. No JVD. ABDOMEN: Soft nontender, and nondistended. There is no rebound, voluntary guarding, or rigidity. No abdominal bruit heard. GENITOURINARY: No suprapubic tenderness. No costovertebral angle tenderness. EXTREMITIES: Limbs are non-edematous. Vital Signs (last 8hr) Date Time Temp Pulse Resp B/P (MAP) Pulse Ox O2 Delivery O2 Flow Rate FiO2 11/18/24 12:00 97.9 11/18/24 11:06 82 20 11/18/24 11:06 82 20 N/A Room Air 21 11/18/24 10:45 77 22 95 97/81 (86) 11/18/24 10:30 80 19 95 105/41 (62) 11/18/24 10:15 79 26 83/56 (65) 94 108/52 (70) 11/18/24 10:00 81 21 87/49 (62) 96 112/65 (81) 11/18/24 09:45 81 27 92 99/55 (70) 11/18/24 09:30 82 27 89/76 (80) 97 93/59 (70) 11/18/24 09:15 84 23 152/99 (116) 95 96/61 (73) 11/18/24 09:00 85 22 90/60 (70) 95 81/32 (48) 11/18/24 08:45 83 16 85/53 (64) 96 11/18/24 08:30 83 21 93/52 (66) 96 102/79 (87) 11/18/24 08:15 83 21 97/56 (70) 98 101/72 (82) 11/18/24 08:00 94 Room Air* 0 21 11/18/24 08:00 98.1 11/18/24 08:00 98.1 86 19 99/53 (68) 95 78/35 (49) 11/18/24 07:45 85 20 99/53 (68) 95 98/70 (79) 11/18/24 07:30 78 23 87/47 (60) 94 110/74 (86) 11/18/24 07:15 87 14 91/53 (66) 97 98/70 (79) 11/18/24 07:00 80 16 93 99/61 (74) 11/18/24 06:45 76 22 92 89/48 (62) 11/18/24 06:12 77 23 /300 91 88/48 (61) 11/18/24 06:10 77 22 92 98/45 (62) 11/18/24 06:09 79 20 11/18/24 06:09 79 18 N/A Room Air 21 11/18/24 05:55 80 10 300/299 (299) 97 91/54 (66) 11/18/24 05:40 78 24 297/296 (296) 96 76/49 (58) 11/18/24 05:25 80 21 80/67 (71) 94 83/56 (65) 11/18/24 05:10 81 26 77/39 (52) 96 99/54 (69) LABS: Laboratory: Test 11/18/24 05:00 11/17/24 09:13 11/17/24 04:58 Range/Units White Blood Count 14.2 H 4.8-10.8 K/uL Red Blood Count 2.77 L 4.50-6.20 MIL/uL Hemoglobin 9.0 L 14.0-18.0 g/dL Hematocrit 26.7 L 42-54 % Mean Corpuscular Volume 96.4 79-99 fL Mean Corpuscular Hemoglobin 32.5 27.0-33.0 pg Mean Corpuscular Hemoglobin Concent 33.7 32.0-36.0 g/dL Red Cell Distribution Width 13.7 11.0-15.5 % Platelet Count 483 H 130-400 K/uL Mean Platelet Volume 9.9 7.5-10.5 fL Nucleated Red Blood Cells 0.0 0.0-0.19 % Activated Partial Thromboplast Time 51.8 H 26.3-35.5 SEC Sodium Level 139 136-145 mmol/L Potassium Level 3.6 3.5-5.1 mmol/L Chloride Level 103 101-111 mmol/L Carbon Dioxide Level 24 21-32 mmol/L Blood Urea Nitrogen 8 7-18 mg/dL Creatinine 1.1 0.5-1.3 mg/dL Glomerular Filtration Rate Calc 73 >90 mL/min Random Glucose 137 H 70-105 mg/dL Total Calcium 8.4 L 8.5-10.1 mg/dL Reticulocyte Count (auto) 3.20164 H 0.42-2.23 % Immature Reticulocyte Fraction 32.80 H 0.18-0.48 % Iron Level 31 L 65-175 mcg/dL Total Iron Binding Capacity 248 L 250-450 mcg/dL Percent Iron Saturation 12.5 L 30-44 % Ferritin 339 30-400 ng/mL Vitamin B12 Level 1052 H 193-986 pg/mL Total Bilirubin 0.5 0.2-1.0 mg/dL Aspartate Amino Transf (AST/SGOT) 35 10-37 U/L Alanine Aminotransferase (ALT/SGPT) 31 12-78 U/L Alkaline Phosphatase 74 50-136 U/L Total Protein 6.2 6.0-8.3 g/dL Albumin 2.3 L 3.5-5.0 g/dL Current Medications Medications (Trade) Dose Ordered Sig/Brittany Route PRN Reason Start Time Stop Time Status Last Admin Dose Admin Acetaminophen (TYLenol 325MG TAB) 650 mg Q4H PRN PO Temp >38.3C(AFTER EXTUBATION) 11/07/24 14:00 12/07/24 13:59 Acetaminophen (TYLenol 325MG TAB) 650 mg Q6H PRN PO TEMPERATURE GREATER THAN 101.5 11/03/24 21:00 11/07/24 14:00 DC 11/06/24 23:00 650 MG Acetaminophen (TYLenol 325MG TAB) 650 mg Q6H PRN PO MILD PAIN (1-3) 11/07/24 14:00 12/07/24 13:59 11/16/24 11:37 650 MG Acetaminophen (TYLenol 650MG SUPPOSITORY) 650 mg Q4H PRN RC Temp >38.3C WHILE INTUBATED 11/07/24 14:00 12/07/24 13:59 Acetaminophen (acetaMINOPHEN) 1,000 mg Q6H IVPB 11/09/24 09:00 11/12/24 08:59 DC 11/12/24 02:11 1,000 MG Acetaminophen (acetaMINOPHEN) 1,000 mg Q6H6 IV 11/07/24 18:00 11/08/24 17:59 DC 11/08/24 18:08 1,000 MG Albumin Human 250 ml @ 0 mls/hr AD PRN IV IF HEMODYNAMICALLY UNSTABLE 11/07/24 14:00 11/08/24 09:57 DC 11/08/24 09:57 125 MLS/HR Albumin Human 250 ml @ 0 mls/hr AD STAT IV 11/15/24 13:09 11/15/24 13:12 DC 11/15/24 13:28 250 MLS/HR Aminocaproic Acid 39769 mg/Sodium Chloride 310 ml @ 25 mls/hr AD IV 11/07/24 14:00 11/08/24 02:23 DC Aminocaproic Acid 60868 mg/Sodium Chloride 480 ml @ 0 mls/hr AD PRN IV BLEEDING CONTROL 11/07/24 11:00 11/07/24 14:03 DC Aspirin (Aspirin 81mg Ec Tab) 81 mg DAILY PO 11/04/24 09:00 12/04/24 08:59 11/18/24 08:03 81 MG Atorvastatin Calcium (LIPItor 40MG) 40 mg HS PO 11/03/24 21:00 11/03/24 20:40 DC Atorvastatin Calcium (LIPItor 40MG) 40 mg HS PO 11/03/24 21:00 11/09/24 07:45 DC 11/07/24 20:15 40 MG Atorvastatin Calcium (LIPItor 40MG) 40 mg HS PO 11/10/24 21:00 12/10/24 20:59 11/17/24 19:42 40 MG Calcium Gluconate (Calcium Gluc 1gm Vial) 1 gm AD PRN IV HYPOCALCEMIA 11/08/24 09:00 11/09/24 07:45 DC 11/08/24 16:36 1 GM Calcium Gluconate 1 gm/Sodium Chloride 60 ml @ 200 mls/hr AD PRN IV HYPOCALCEMIA 11/07/24 14:00 12/07/24 13:59 11/16/24 05:52 200 MLS/HR Cefazolin Sodium (Ancef) 2 gm ONCALL IVPB 11/06/24 22:00 11/07/24 14:00 DC Cefazolin Sodium (Ancef) 2 gm Q8H IVPB 11/07/24 19:00 11/08/24 11:01 DC 11/08/24 11:15 2 GM Clopidogrel Bisulfate (plaVIX 75MG) 75 mg DAILY PO 11/08/24 14:00 12/08/24 13:59 11/18/24 08:04 75 MG Dexmedetomidine/ Sodium Chloride (PRECEdex 400MCG/ 100ML-NS) 400 mcg PROTOCOL IV 11/07/24 14:00 12/07/24 13:59 Dextrose (D50w) 50 ml AD PRN IV HYPOGLYCEMIA PROTOCOL 11/07/24 14:00 12/07/24 13:59 Dextrose/Sodium Bicarbonate 1,025 ml @ 10 mls/hr Q24H IV 11/07/24 19:30 12/07/24 19:29 11/15/24 09:42 10 MLS/HR Docusate Sodium (COLace 100MG CAP) 100 mg BID PO 11/07/24 21:00 11/08/24 10:11 DC 11/07/24 20:15 100 MG Docusate Sodium (COLace 100MG CAP) 100 mg BID PO 11/10/24 09:00 12/10/24 08:59 11/18/24 08:04 100 MG Docusate Sodium (COLace LIQUID 100MG/10ML) 100 mg BID NG 11/08/24 10:30 11/09/24 21:53 DC 11/09/24 20:47 100 MG Enoxaparin Sodium (Lovenox) 30 mg DAILY SQ 11/10/24 09:00 11/13/24 08:38 DC 11/12/24 09:03 30 MG Enoxaparin Sodium (Lovenox) 40 mg DAILY SQ 11/04/24 09:00 11/07/24 13:38 DC 11/05/24 09:06 40 MG Epinephrine HCl 10 mg/Sodium Chloride 250 ml @ 13.948 mls/ hr AD PRN IV POST-OP CARDIOVASCULAR ORDERS 11/07/24 14:00 11/12/24 13:59 DC 11/09/24 19:48 7 MLS/HR Epinephrine HCl 10 mg/Sodium Chloride 250 ml @ 0 mls/hr AD PRN IV TITRATE 11/07/24 11:00 11/07/24 14:02 DC Epinephrine HCl 10 mg/Sodium Chloride 250 ml @ 0 mls/hr PROTOCOL IV 11/12/24 23:30 12/12/24 23:29 11/18/24 04:56 7 MLS/HR Famotidine (Pepcid 20mg Vial) 20 mg BID IV 11/07/24 21:00 11/08/24 08:59 DC 11/08/24 08:11 20 MG Famotidine (Pepcid 20mg Tab) 20 mg DAILY PO 11/04/24 09:00 11/07/24 13:38 DC 11/05/24 09:06 20 MG Folic Acid (FOLic ACID 1 MG TABLET) 1 mg DAILY PO 11/14/24 09:00 12/14/24 08:59 11/18/24 08:03 1 MG Furosemide (LASix 20MG TAB) 20 mg Q12H PO 11/09/24 09:00 12/09/24 08:59 11/18/24 08:04 20 MG Furosemide (LASix 20MG VIAL) 20 mg Q12H IV 11/08/24 09:00 11/09/24 08:59 DC 11/08/24 20:23 20 MG Glucagon (Glucagon 1mg Kit) 1 mg AD PRN IM HYPOGLYCEMIA PROTOCOL 11/07/24 14:00 12/07/24 13:59 Heparin Sodium (Porcine) (HEParin 5,000 UNIT VIAL) *calculation based on ACTUAL B... AD PRN IV HEPARIN PROTOCOL 11/13/24 09:30 12/13/24 09:29 Heparin Sodium/ Dextrose 250 ml @ 0 mls/hr Q6H IV 11/13/24 09:30 12/13/24 09:29 11/17/24 21:02 5 MLS/HR Hydralazine HCl (APRESOLine 20MG INJ) 10 mg Q6H PRN IV For:SBP above 160;DBP above 90 11/03/24 21:00 11/07/24 13:38 DC Insulin Human Regular 100 unit/ Sodium Chloride 100 ml @ 0 mls/hr AD IV 11/07/24 14:00 11/09/24 13:59 DC 11/08/24 12:30 4 MLS/HR Ipratropium [place] (AtrovENT UD) 0.5 MG [id number] IH 11/08/24 12:00 12/08/24 11:59 11/18/24 11:05 0.5 MG Lactulose (Constulose 20gm/ 30ml Udcup) 20 gm BID PRN PO CONSTIPATION 11/03/24 21:00 11/07/24 14:00 DC Lactulose (Constulose 20gm/ 30ml Udcup) 20 gm BID PRN PO CONSTIPATION 11/07/24 14:00 12/07/24 13:59 11/18/24 06:21 20 GM Levothyroxine Sodium (SYNTHroid 125MCG TAB) 125 mcg SYN PO 11/09/24 06:30 12/09/24 06:29 11/18/24 06:21 125 MCG Lidocaine HCl/ Dextrose 250 ml @ 0 mls/hr PROTOCOL PRN IV OTHER [SEE ORDER COMMENTS] 11/08/24 21:00 11/09/24 08:37 DC 11/08/24 21:15 7.5 MLS/HR Magnesium Hydroxide (Milk Of Magnesium 30ml) 30 ml DAILY PRN PO CONSTIPATION 11/07/24 14:00 12/07/24 13:59 Magnesium Sulfate 50 ml @ 12.5 mls/hr AD PRN IV MAG LEVEL LESS THAN 2.0 11/07/24 14:00 12/07/24 13:59 11/09/24 05:59 12.5 MLS/HR Metoprolol Tartrate (loprESSOR) 12.5 mg BID PO 11/09/24 09:00 11/11/24 09:39 DC Metoprolol Tartrate (loprESSOR) 50 mg BID PO 11/04/24 21:00 11/07/24 13:38 DC 11/06/24 20:38 50 MG Midodrine (PROAMatine 5 MG TABLET) 10 mg TID PO 11/09/24 21:00 11/11/24 06:58 DC 11/10/24 20:07 10 MG Midodrine (PROAMatine 5 MG TABLET) 15 mg TID PO 11/11/24 09:00 12/11/24 08:59 11/18/24 08:06 15 MG Montelukast Sodium (SinguLAIR) 10 mg HS PO 11/08/24 21:00 12/08/24 20:59 11/17/24 19:42 10 MG Morphine Sulfate (morPHINE 2MG SYG) 0.5 mg Q2H PRN IV MODERATE PAIN (4-6) 11/07/24 14:00 11/08/24 13:59 DC Morphine Sulfate (morPHINE 2MG SYG) 1 mg Q2H PRN IV SEVERE PAIN (7-10) 11/07/24 14:00 11/08/24 13:59 DC Morphine Sulfate (morPHINE 4MG SYG) 2 mg Q4H PRN IVP SEVERE PAIN (7-10) 11/03/24 21:00 11/07/24 13:38 DC 11/04/24 15:49 2 MG Nitroglycerin (Nitroglycerin 1gm Oint) 0.5 inch Q8H TD 11/03/24 21:00 11/07/24 13:38 DC 11/07/24 05:46 0.5 INCH Nitroglycerin/ Dextrose 0 ml @ 0 mls/hr AD IV 11/07/24 14:00 11/10/24 13:59 DC Norepinephrine Bitartrate 250 ml @ 0 mls/hr AD PRN IV TITRATE 11/07/24 11:00 11/07/24 14:02 DC Norepinephrine Bitartrate 250 ml @ 0 mls/hr AD PRN IV POST-OP CARDIOVASCULAR ORDERS 11/07/24 14:00 11/12/24 13:59 DC 11/09/24 17:09 5.6 MLS/HR Norepinephrine Bitartrate 250 ml @ 0 mls/hr PROTOCOL IV 11/12/24 18:30 12/12/24 18:29 11/13/24 08:42 2 MLS/HR Ondansetron HCl (zoFRAN 4MG INJ) 4 mg Q6H PRN IV NAUSEA/VOMITING 11/03/24 21:00 11/07/24 14:00 DC Ondansetron HCl (zoFRAN 4MG INJ) 4 mg Q6H PRN IV NAUSEA/VOMITING 11/07/24 14:00 12/07/24 13:59 11/09/24 21:50 4 MG Pantoprazole Sodium (PROTonix 40MG INJ) 40 mg BID IVP 11/08/24 09:00 12/08/24 08:59 11/18/24 08:04 40 MG Pharmacy Profile Note (Pharmacy Communication) 1 each ONCE MISC 11/13/24 09:00 11/13/24 08:57 DC Piperacillin Sod/ Tazobactam Sod (Zosyn 3.375gm+NS 50ml) 3.375 gm Q8H IV 11/09/24 10:00 11/09/24 09:38 DC Piperacillin Sod/ Tazobactam Sod (Zosyn 3.375gm+NS 50ml) 3.375 gm Q8H IV 11/09/24 10:00 11/19/24 09:59 11/18/24 10:17 3.375 GM Polyethylene Glycol (MIRalax 3350 17 GM POWD.PACK) 17 gm DAILY PO 11/09/24 09:00 12/09/24 08:59 11/18/24 08:04 17 GM Potassium Phosphate 250 ml @ 42 mls/hr AD PRN IV LOW PHOS LEVEL 11/07/24 14:00 12/07/24 13:59 11/08/24 07:22 42 MLS/HR Potassium Chloride 100 ml @ 100 mls/hr AD PRN IV HYPOKALEMIA 11/07/24 14:00 12/07/24 13:59 11/18/24 06:22 100 MLS/HR Potassium Chloride (K-Dur/Klor-Con 20meq) 20 meq AD PRN PO POTASSIUM PROTOCOL 11/14/24 00:30 12/14/24 00:29 11/17/24 08:09 20 MEQ Potassium Chloride (KCl 10% Elixir 20meq/15ml) 20 meq AD PRN PO POTASSIUM PROTOCOL 11/14/24 00:30 12/14/24 00:29 11/14/24 00:17 20 MEQ Propofol 100 ml @ 0 mls/hr AD PRN IV SEDATION 11/07/24 14:00 11/11/24 13:59 DC Sodium Bicarbonate (Sodium Bicarb 50meq 50ml Vial) 50 meq AD PRN IV OTHER[SEE DOSING INSTRUCTIONS] 11/07/24 14:00 11/10/24 13:59 DC 11/08/24 00:54 50 MEQ Sodium Chloride 250 ml @ 0 mls/hr Q0M IV 11/18/24 10:00 12/18/24 09:59 11/18/24 10:13 250 MLS/HR Sodium Chloride 500 ml @ 0 mls/hr AD IV 11/07/24 14:00 12/07/24 13:59 11/10/24 00:41 3 MLS/HR Sodium Chloride 1,000 ml @ 10 mls/hr ONCE IV 11/07/24 14:00 11/08/24 13:59 DC 11/07/24 20:11 10 MLS/HR Sodium Chloride 1,000 ml @ 100 mls/hr Q10H IV 11/06/24 12:30 11/06/24 15:29 DC Sodium Chloride (NS Flush 10ml) 10 ml Q8H PRN IVP IV LINE FLUSH 11/07/24 14:00 12/07/24 13:59 Sucralfate (Carafate) 1 gm TID PO 11/08/24 21:00 12/08/24 20:59 11/18/24 08:06 1 GM Tramadol HCl (UltRAM) 25 mg Q6H PRN PO MODERATE PAIN (4-6) 11/07/24 14:00 11/09/24 08:37 DC Tramadol HCl (UltRAM) 50 mg Q6H PRN PO SEVERE PAIN (7-10) 11/07/24 14:00 11/09/24 08:37 DC 11/08/24 23:30 50 MG Vitamin B Complex (Vitamin B-12) 1,000 mcg DAILY IM 11/07/24 09:00 11/13/24 08:59 DC 11/12/24 09:03 1,000 MCG Vitamin B Complex (Vitamin B-12) 1,000 mcg DAILY PO 11/14/24 09:00 12/14/24 08:59 11/18/24 08:04 1,000 MCG DIAGNOSTICS / RADIOLOGY: [ ] ASSESSMENT: Coronary artery disease, POA, s/p CABG 3v and redo sternotomy with redo of graft failure now s/p CABG with 4v Postop acute anemia requiring transfusion Acute kidney injury Hyperlipidemia, POA Hypothyroidism, POA Peripheral artery disease, suspected Carotid artery stenosis PLAN: Coronary artery disease, POA s/p CABG 3v and redo sternotomy with redo of graft failure now s/p CABG with 4v * Administer aspirin 325 mg p.o. now and then continue aspirin 81 mg p.o. daily * Troponin every 6 hours, serial troponin levels are 9-9-12-11. * Supplemental oxygen as needed to maintain SpO2 greater than 94% * Monitor for recurrence of chest pain, arrhythmias, or hemodynamic changes * Electrocardiogram was done which is normal. * A 2D Echo has been ordered due to patients history of chest pain on exertion and rest. * A cardiology consult has been placed for evaluation of CAD in patient with exertional chest pain and vascular disease. 11/04/24 * Echocardiogram was done which revealed aortic valve: trileaflet, mildly sclerotic, and opens well. * Pending Coronary CTA reports. * Lipid panels has been ordered to assess Cardiovascular risks. Results unr emarkable. * In coronary CT angiography there is mixed calcified and noncalcified plaque in the proximal LAD with 80-90% stenosis. Left circumflex coronary artery: Normal caliber, nondominant and gives rise to a large OM branch. There is mixed calcified and noncalcified plaque in the mid LCx with 80-90% stenosis. * CAD-RAD of 4B. * Left heart catheterization with selective right and left coronary angiography was performed which showed critical left main disease. Severe ostial RCA stenosis. 11/06/24 * He complaints of headache 8/10 of intensity after the administration of Nitroglycerin. Tylenol has been administered. Closely monitoring the patient. * Cardiac catheterization demonstrated a very tight left main lesion and the patient is referred for surgical revascularization. * Patient is POD 11 S/P CABG, patient is being managed in the ICU per protocol. * Recent ABG shows lactic acid is 1.21. * epinephrine drip continues at 0.05 mcg/kg/min. * His impella setting is decreased to be P4. planning to further wean off. * We will continue to follow Cardiology and critical care recommendations. * He is on heparin drip and off lovenox. * Hematology saw the patient and they recommended to start folic acid, vitamin B12, ordered SPEP, UPEP, free light chains. They think that the patient might be having hemolytic anemia which could be the reason for his graft clotting after surgery. * Cardiology plan to wean him of the pressors than impella. Peripheral vascular disease, Suspected * Patient has history of exertional bilateral leg pain * Diminished peripheral pulses * A SERA has been ordered due to the patients complaint of bilateral lower extremity claudication, and numbness/tingling in bilateral lower extremities. * Clear aspirin 81 mg daily and statin 40mg * Encouraged supervised exercise therapy for claudication * Counseled on continued smoking cessation 11/04/24 Peripheral Neuropathy * Vitamin B12 has been ordered to rule out peripheral neuropathy.11/05/24 * Complained of numbness and tingling in his limbs. * Vitamin B12 level was measured which showed 173L. * Patient has been started on vitamin B12 supplement 1000 mcg for 6 days. Carotid artery stenosis * Presence of bilateral carotid bruit on exam, suspicion for significant stenosis * Carotid Duplex ultrasound has been done, awaiting reports * Risk factor modification: Smoking cessation, BP control, glycemic control. 11/04/24 * Carotid artery ultrasound showed Bilateral ICA/CCA ratio more than 4.0 suggesting more than 70% stenosis. 11/05/24 * Cardiology recommended CT/MR angiogram when stable from surgical standpoint Hyperlipidemia * Continue home statin therapy atorvastatin 40 mg * Reinforce low-cholesterol, heart healthy diet (limit saturated fats, increase fiber, fruits and vegetables) * Encouraged regular physical activity as tolerated * Monitor lipid panel * Outpatient follow up with PCP/Cardiology for long-term lipid management and cardiovascular risks reduction Supportive measures * Start patient on GI prophylaxis * DVT prophylaxis * Monitor morning labs CBC and BMP daily * He is on clear liquid diet Hypothyroidism * Continue home dose of levothyroxine at 125 mcg daily * TSH 1.33. Postop acute anemia requiring transfusion - Patient's hemoglobin on 11/18 is 9. Patient has normocytic anemia - His iron panel from 11/17 showed low iron and low percentage saturation. - As per Hematology recommendations, patient was given IV iron sucrose today. - Follow up with morning CBC. ATTESTATION BY PHYSICIAN I have seen and examined the patient. I reviewed the documentation, medical decision making, and treatment plan as noted by the resident physician above. I agree with the findings and plan of care. ALISA POLLARD MD, MUHAMMAD H MD Nov 18, 2024 13:02
--- NOTE | 2024-11-18 14:18 | HMCIMG ---
Comparison: Yesterday Findings: The heart is enlarged in size and the lungs are clear. There are no pleural effusions. There is no acute fracture. There is no pneumothorax. Right IJ sheath is in the SVC. Left-sided chest tube is in place. IMPRESSION: Cardiomegaly. No acute process /John
--- NOTE | 2024-11-18 15:22 | NUR ---
Nutrition consult per LOS 7 Reviewed labs, notes, and medications. Pt is a former smoker, s/p CABG day 11, on HH+ 75 gm cho + easy to chew, lasix, b-complex, IV abx, A1C 5.7, BG 137(H), Ca 8.4(L), alb 2.3(L), b12 (H), lipid WNL per chart review. Wt via bed scale, 25%PO intake, last BM 11/18/24, chest incision, no edema, well nourished, -2681 ml balance 11/17/24 per nursing. Recommendations: -Provide HH+ 75 gm cho + prostat jello tid w/ trays -Monitor PO intake -Encourage PO intake as able -If poor PO intake continues consider appetite stimulant -Monitor BM -If no BM >3 days consider stool softener -Monitor electrolytes -Replenish electrolytes per protocol -Monitor wts -Reweigh as able -Order Vit D to rule out deficiencies -Provide MVI QD -Texture per ALCOHOLISM WORKER recs -Recommend Pt to follow up with PCP -Monitor goals of care RD to follow + available for consult per protocol Addendum: 11/18/24 at [address] Amended: Links added.
--- NOTE | 2024-11-18 15:35 | PN ---
PROGRESS NOTE Date of Service: Nov 18, 2024 Time of Service: 14:59 SUBJECTIVE: 69-year old male with past medical history of Graves disease, hyperlipidemia, CAD(status post PTCA 30 years ago) presented to ED with chief complaints of on and off chest pain. He was found to have severe left main disease and underwent CABG on 11/07. Patient had to undergo a redo due to graft thrombosis on table. Subsequently he was placed on Impella initially on P4---->P8---->P5--->P4(current). He was treated with multiple pressors. On 11/09 patient underwent right radial artery arterial line placement which clotted. And 2nd anterior line was placed on right axillary artery on 11/12/2024 which was also clotted. Another arterial line was placed on left brachial artery on 11/14/2024 . Patient was also noted to have transient thrombocytopenia between 11/09/2024 to 11/12/2024. 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 However direct Juan test and cold agglutinin was negative. Patient is seen and evaluated at the bedside today. Patient is alert oriented. He continues to be on Impella support. His platelet count is [id number], hemoglobin 9, WBC 14.2. Free [place] lambda light chain ratio 0.69 suggestive of polyclonal elevations. We will wait for SPEP-if monoclonal we will proceed with bone marrow biopsy. As per the nurse his arterial line is currently not functioning adequately. REVIEW OF SYSTEMS CONSTITUTIONAL: Denies fever, chills, or fatigue. HEAD/FACE: No signs of trauma. EENT: Denies eye pain, blurred vision, double vision, or light sensitivity. RESPIRATORY: Denies shortness of breath, cough, wheezing CARDIOVASCULAR: Denies chest pain, palpitation, syncope GASTROINTESTINAL/ABDOMINAL: Denies abdominal pain, constipation, diarrhea, nausea or vomiting GENITOURINARY: Denies dysuria or hematuria. MUSCULOSKELETAL: Denies joint pain, tenderness, or trauma. INTEGUMENTARY: Denies rash or itchiness NEUROLOGICAL/PSYCH: Denies anxiety, depression, heat or cold intolerance. PHYSICAL EXAM EYES: Anicteric. Pupils equal and reactive. HENT: No oral thrush seen, moist Oral mucosa NECK: Supple, no JVD or thyromegaly. LUNGS: Good air entry. No rales, no rhonchi. CARDIOVASCULAR: S1, S2 regular. No murmur heard. ABDOMEN: Soft, non tender, bowel sounds present, no organomegaly CENTRAL NERVOUS SYSTEM: Awake, alert, oriented x 3. No focal deficits. SKIN: No rashes, no swelling. LYMPHATICS: No peripheral lymphadenopathy MUSCULOSKELETAL: No joint swelling, erythema or tenderness. EXTREMITIES: No cyanosis or clubbing BACK: No deformity, no pressure ulcer. GENITOURINARY: No dysuria or hematuria Vital Signs (last 8hr) Date Time Temp Pulse Resp B/P (MAP) Pulse Ox O2 Delivery O2 Flow Rate FiO2 11/18/24 12:30 83 20 89/60 (70) 94 11/18/24 12:15 83 27 90/48 (62) 96 104/72 (83) 11/18/24 12:00 94 Room Air* 0 21 11/18/24 12:00 97.9 83 14 86/45 (59) 97 94/53 (67) 11/18/24 12:00 97.9 11/18/24 11:45 84 24 85/48 (60) 96 103/58 (73) 11/18/24 11:30 82 84/71 (75) 94 11/18/24 11:15 93 21 96 104/72 (83) 11/18/24 11:06 82 20 11/18/24 11:06 82 20 N/A Room Air 21 11/18/24 11:00 80 26 73/49 (57) 95 88/52 (64) 11/18/24 10:45 77 22 95 97/81 (86) 11/18/24 10:30 80 19 95 105/41 (62) 11/18/24 10:15 79 26 83/56 (65) 94 108/52 (70) 11/18/24 10:00 81 21 87/49 (62) 96 112/65 (81) 11/18/24 09:45 81 27 92 99/55 (70) 11/18/24 09:30 82 27 89/76 (80) 97 93/59 (70) 11/18/24 09:15 84 23 152/99 (116) 95 96/61 (73) 11/18/24 09:00 85 22 90/60 (70) 95 81/32 (48) 11/18/24 08:45 83 16 85/53 (64) 96 10/8/25 08:30 83 21 93/52 (66) 96 102/79 (87) 11/18/24 08:15 83 21 97/56 (70) 98 101/72 (82) 11/18/24 08:00 94 Room Air* 0 21 11/18/24 08:00 98.1 11/18/24 08:00 98.1 86 19 99/53 (68) 95 78/35 (49) 11/18/24 07:45 85 20 99/53 (68) 95 98/70 (79) 11/18/24 07:30 78 23 87/47 (60) 94 110/74 (86) 11/18/24 07:15 87 14 91/53 (66) 97 98/70 (79) 11/18/24 07:00 80 16 93 99/61 (74) LABS: Laboratory: Test 11/18/24 05:00 11/17/24 09:13 11/17/24 04:58 Range/Units White Blood Count 14.2 H 4.8-10.8 K/uL Red Blood Count 2.77 L 4.50-6.20 MIL/uL Hemoglobin 9.0 L 14.0-18.0 g/dL Hematocrit 26.7 L 42-54 % Mean Corpuscular Volume 96.4 79-99 fL Mean Corpuscular Hemoglobin 32.5 27.0-33.0 pg Mean Corpuscular Hemoglobin Concent 33.7 32.0-36.0 g/dL Red Cell Distribution Width 13.7 11.0-15.5 % Platelet Count 483 H 130-400 K/uL Mean Platelet Volume 9.9 7.5-10.5 fL Nucleated Red Blood Cells 0.0 0.0-0.19 % Activated Partial Thromboplast Time 51.8 H 26.3-35.5 SEC Sodium Level 139 136-145 mmol/L Potassium Level 3.6 3.5-5.1 mmol/L Chloride Level 103 101-111 mmol/L Carbon Dioxide Level 24 21-32 mmol/L Blood Urea Nitrogen 8 7-18 mg/dL Creatinine 1.1 0.5-1.3 mg/dL Glomerular Filtration Rate Calc 73 >90 mL/min Random Glucose 137 H 70-105 mg/dL Total Calcium 8.4 L 8.5-10.1 mg/dL Reticulocyte Count (auto) 3.88349 H 0.42-2.23 % Immature Reticulocyte Fraction 32.80 H 0.18-0.48 % Iron Level 31 L 65-175 mcg/dL Total Iron Binding Capacity 248 L 250-450 mcg/dL Percent Iron Saturation 12.5 L 30-44 % Ferritin 339 30-400 ng/mL Vitamin B12 Level 1052 H 193-986 pg/mL Total Bilirubin 0.5 0.2-1.0 mg/dL Aspartate Amino Transf (AST/SGOT) 35 10-37 U/L Alanine Aminotransferase (ALT/SGPT) 31 12-78 U/L Alkaline Phosphatase 74 50-136 U/L Total Protein 6.2 6.0-8.3 g/dL Albumin 2.3 L 3.5-5.0 g/dL DIAGNOSTICS / RADIOLOGY: [ ] Assessment 1. Anemia. Is multifactorial. Including iron deficiency anemia 2. 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 ELSA 5. Hyperlipidemia 6. Sclerotic nodule on the non coronary cusp on 2D echo Normal ventricular diastolic function with LVEF of 60-65% on 2D echo 11/05/24 7. Former smoker Plan: 1. Patient started on IV iron while in the hospital. This patient may be will need oral iron every other day for at least 6 months. 2. Please continue on folic acid 1 mg p.o. daily and vitamin B12 1000 mcg p.o. daily 3. Peripheral blood smear -There was a spherocytes. direct Juan is negative. There is no need for prednisone treatment. Patient does not have autoimmune hemolytic anemia(Cold agglutinin negative ). How ever if thrombosis is recurring , we would recommend placing blanket covers and avoid cold exposure as this may contribute to thrombotic risk . 4. 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 SPEP, UPEP pending .Free kappa /Lambda ratio 0.69- polyclonal . Wait for SPEP- if monoclonal we will do bone marrow biopsy. 5. I discussed the case with cardiology. There is no need for anticoagulation from cardiology point of view. So this patient is going to be discharged there is no need for oral anticoagulation from my point of view.How ever there is concern for current arterial line not functioning ? clotting - if thats the case , patient will benefit from Aspirin or plavix . Patient will need hypercoagulable state testing. Will do it as outpatient (after heparin is discontinued ) 6. Continue care as per cardiothoracic surgery I attest that I was physically present to evaluate the patient and I reviewed and discussed the case with the Resident and agree with the Resident's findings and plans of care as documented above with modifications. Case discussed with resident on the date stated at the beginning of note. Patient was first seen and evaluated by me during this hospitalization. ATTESTATION BY PHYSICIAN I have seen and examined the patient. I reviewed the documentation, medical decision making, and treatment plan as noted by the mid-level provider above. I agree with the findings and plan of care. JAYLENE DO MD, MD Nov 18, 2024 15:35 TAINA ARZOLA MD Nov 19, 2024 13:28
[2024-11-19] VITALS (96 sets, daily range): BP systolic 66–148; BP diastolic 34–87; PULSE 67–95; RESP 9–68; TEMP 98–99.2; O2SAT 92–95
[2024-11-19 04:09] LABS: NUCLEATED RED BLOOD CELLS 0.0 % (0.0-0.19); PLATELET COUNT (AUTO) 487.0 K/uL (130-400); RED BLOOD CELL COUNT(AUTO) 2.86 MIL/uL (4.50-6.20); RED CELL DISTRIBUTION WIDTH 13.7 % (11.0-15.5); WHITE BLOOD COUNT (AUTO) 12.4 K/uL (4.8-10.8)
[2024-11-19 04:39] LABS: CREATININE 1.0 mg/dL (0.5-1.3); GLOMERULAR FILTR. RATE CALC 82.0 mL/min (>90); GLUCOSE,RANDOM 125.0 mg/dL (70-105); SODIUM SERUM 139.0 mmol/L (136-145); UREA NITROGEN, BLOOD 9.0 mg/dL (7-18)
--- NOTE | 2024-11-19 06:30 | PN ---
TIME: 7:00 p.m. SUBJECTIVE: The patient is a 69-year-old gentleman status post Impella assisted coronary artery bypass grafting. No major events overnight. Remains stable. PHYSICAL EXAMINATION: NEUROLOGIC: Alert, oriented, no deficits. CARDIAC: S1, S2. Regular rate and rhythm. RESPIRATORY: Clear to auscultation bilaterally. CHEST: Incision is clean, dry, and intact. ASSESSMENT AND PLAN: * Coronary artery disease status post coronary artery bypass grafting with Impella assist. Impella has been weaned down to P3 and P4 level. He is on very low dose epinephrine. We will plan to remove the Impella in the next couple of days. * He is volume overloaded, on Lasix IV b.i.d. * Hypercholesterolemia, on high statin therapy. * Acute blood loss anemia. No evidence of active bleeding at this time. We will continue to monitor. TID: [id number] RECEIPT: [id number]
--- NOTE | 2024-11-19 07:08 | HMCIMG ---
EXAM: CR Chest, single view. CLINICAL HISTORY: PP COMPARISON: Prior chest radiograph dated November 18, 2024. FINDINGS: Right-sided central venous catheter with tip in the superior vena cava. Poststernotomy status. Borderline cardiomegaly. Subsegmental atelectasis in the right lower lobe. No evidence of pleural effusion or pneumothorax. No acute osseous abnormality. IMPRESSION: Right-sided central venous catheter with tip in the superior vena cava. Poststernotomy status. Borderline cardiomegaly. Subsegmental atelectasis in the right lower lobe. No evidence of pleural effusion or pneumothorax. Compared to the prior study, there is no significant interval change. /[place]
--- NOTE | 2024-11-19 08:04 | PN ---
[facility] CARDIOLOGY PROGRESS NOTE Date Patient Seen: Nov 19, 2024 Time of Visit: 08:04 Interval History: P3 Physical Examination: GENERAL: No acute distress. HEAD: Normal with no signs of head trauma. EYES: PERRLA, EOMI, conjunctiva and sclera normal. ENT: Hearing grossly intact, normal oropharynx. NECK: Supple without JVD. There is no tenderness, lymphadenopathy, or masses. No thyromegaly. Normal carotid upstrokes without bruits. LUNGS: Clear breath sounds bilaterally. No wheezes, or rhonchi. HEART: Normal rate and rhythm. Normal S1 and S2 without murmurs, gallop or rub. VASC: Peripheral pulses +2 bilaterally. ABD: Bowel sounds normal, soft, nontender, no masses, no organomegaly. No a udible bruits. : Not examined LYMPH: No lymphadenopathy noted. EXT: No clubbing, cyanosis or edema. SKIN: No rashes or lesions noted. NEURO: Awake, alert, and oriented x3. No focal sensory or strength deficits noted. Laboratory: [ ] Hematology Labs: Test 11/19/24 03:46 11/17/24 09:13 Range/Units White Blood Count 12.4 H 4.8-10.8 K/uL Red Blood Count 2.86 L 4.50-6.20 MIL/uL Hemoglobin 9.0 L 14.0-18.0 g/dL Hematocrit 28.0 L 42-54 % Mean Corpuscular Volume 97.9 79-99 fL Mean Corpuscular Hemoglobin 31.5 27.0-33.0 pg Mean Corpuscular Hemoglobin Concent 32.1 32.0-36.0 g/dL Red Cell Distribution Width 13.7 11.0-15.5 % Platelet Count 487 H 130-400 K/uL Mean Platelet Volume 9.6 7.5-10.5 fL Nucleated Red Blood Cells 0.0 0.0-0.19 % Reticulocyte Count (auto) 3.50489 H 0.42-2.23 % Immature Reticulocyte Fraction 32.80 H 0.18-0.48 % Chemistry Labs: Test 11/19/24 03:46 11/17/24 09:13 Range/Units Sodium Level 139 136-145 mmol/L Potassium Level 3.8 3.5-5.1 mmol/L Chloride Level 105 101-111 mmol/L Carbon Dioxide Level 25 21-32 mmol/L Blood Urea Nitrogen 9 7-18 mg/dL Creatinine 1.0 0.5-1.3 mg/dL Glomerular Filtration Rate Calc 82 >90 mL/min Random Glucose 125 H 70-105 mg/dL Total Calcium 7.9 L 8.5-10.1 mg/dL Magnesium Level 2.30 1.80-2.40 mg/dL Procalcitonin < 0.05 L 0.05-0.5 ng/mL Thyroid Stimulating Hormone (TSH) 7.13 #H 0.36-3.74 uIU/mL Iron Level 31 L 65-175 mcg/dL Total Iron Binding Capacity 248 L 250-450 mcg/dL Percent Iron Saturation 12.5 L 30-44 % Ferritin 339 30-400 ng/mL Vitamin B12 Level 1052 H 193-986 pg/mL Coagulation Labs: Test 11/19/24 05:05 Range/Units Activated Partial Thromboplast Time 116.6 *H 26.3-35.5 SEC Diagnostics / Radiology: [Copy/Paste Echos/Imaging Report here] Impression and Plan: [Unstable angina pectoris Abnormal CT coronary angiogram 11/05/2024 demonstrating a CAD-RADs score of 4B mixed calcified and noncalcified plaque in the left main with 50% stenosis, 80- 90% stenosis in the proximal LAD and 80-90% stenosis in mid left circumflex Critical left main and ostial RCA stenosis by cardiac catheterization 11/06/2024 S/p CABG with initial graft failure converted to Impella supported redo (CHILD- LAD, SVG-OM2, SVG-RCA and SVG-LAD) on 11/07/[address] Meza LVEF of 60-65% by 2D echocardiogram 11/05/2024 Mild ischemic cardiomyopathy with an LVEF of 40-45% by 2D echocardiogram 11/12/2024 Bilateral ICA disease with >70% stenosis by Doppler on 11/04/2024 Transaminitis, improved Thrombocytopenia, improved Hyperlipidemia CAD s/p PTCA to unknown vessel approximately 30 years ago Ex-smoker of 1 PPD with cessation 2 months ago Graves disease S/p CABG with initial graft failure converted to Impella supported redo (CHILD- LAD, SVG-OM2, SVG-RCA and SVG-LAD) on 11/07/[address] Meza Impella at P-3 -The patient is maintained on Epinephrine and Heparin infusions -The patient is not a candidate for beta-betty therapy until weaned off of Epinephrine and if hemodynamically stable. Continue Midodrine 15mg TID. -Continue Aspirin 81 mg daily, Plavix 75 mg daily, Atorvastatin 40 mg q.h.s., and Lasix 20 mg p.o. every 12 hours -Continue management per Cardiothoracic surgery -PT/OT Carotid artery disease Carotid US 11/05: Mild intimal thickening in the bilateral carotid arteries and their branches. Bilateral ICA/CCA ratio is more than 4.0 suggesting more than 70% stenosis. Raised velocities in the bilateral external and internal carotid arteries. -Recommend CT/MR angiogram when stable from surgical standpoint -Continue Aspirin 81 mg daily and Atorvastatin 40 mg q.h.s. Thrombocytopenia, improved Platelets today of 398K/uL -Hematology ordered SPEP, UPEP and free light chain laboratories. If there is monoclonal protein, plans for a bone marrow biopsy. 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 YESICA MARTINEZ MD Nov 19, 2024 08:04
--- NOTE | 2024-11-19 13:30 | PN ---
Patient seen and examined, all labs and imaging have been reviewed, patient is sitting comfortably at bedside chair. Continues with the Impella, P5 Patient has clotted off his 4th a line. Anesthesia was brought into place of 5th. Hematology has also been requested to evaluate patient for his clotting. Patient is comfortable, he is reporting no pain or discomfort no chest pain or shortness of breath. No abdominal complaints. Good saturations on nasal cannula 2 L He is alert and oriented, Urine output There is plan to for removal of Impella. PHYSICAL EXAM: GENERAL: alert, weak, awake oriented x 3 HEENT: EOMI, Sclera non icteric, moist mucosa NECK: Supple, no JVD, trachea midline right IJ. Subclavian Impella 5.5 LUNGS: Rhonchi to right lower lobes. No wheezes HEART: Regular rate and rhythm. Normal S1 and S2, without murmurs mid incision line tenderness. Dressing clean dry and intact. ABD: Abdomen soft, nontender. Bowel sounds present EXT: No clubbing cyanosis or edema. Left femoral sheath. NEURO: Alert and oriented to person, follows commands Assessment 1. Anemia 2. Thrombocytopenia 3.CAD s/p CABG x 3+1 w/ redo on 11/07/24 Impella 5 x 5 4. ELSA 5. Hyperlipidemia 6. Sclerotic nodule on the non coronary cusp on 2D echo Normal ventricular diastolic function with LVEF of 60-65% on 2D echo 11/05/24 7. Former smoker Plan: 1. Peripheral blood smear showed red blood cells to be normocytic normochromic. There was no fragment cell or schistocyte. There is no teardrop cell. There is no rouleaux phenomena. There is no pelger-Huet cell. White blood cell with no blasts. Platelet was normal in morphology and count. 2. There was hypersegmented neutrophils. This patient to be started on folic acid 1 mg p.o. daily and vitamin B12 1000 mcg p.o. daily. 3. 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 We will ask for direct Juan to be done on this patient. 4. 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 Free light chain was done which was negative. We will follow-up with the result of SPEP 5. 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 Continue care as per cardiothoracic surgery Vitals/Labs Vital Signs Date Time Temp Pulse Resp B/P (MAP) Pulse Ox O2 Delivery O2 Flow Rate FiO2 11/19/24 12:00 94 Room Air* 0 21 11/19/24 12:00 98.1 11/19/24 11:07 89 20 11/19/24 05:55 92/44 (60) Laboratory Tests 11/19/24 03:46 Medications Current Medications Aspirin 325 mg ONCE ONCE PO Last administered on 11/03/24at 17:53; Start 11/03/24 at 18:00; Stop 11/03/24 at 18:01; Status DC Acetaminophen 650 mg Q6H PRN PO Last administered on 11/06/24at 23:00; Start 11/03/24 at 21:00; Stop 11/07/24 at 14:00; Status DC Aspirin 81 mg DAILY PO Last administered on 11/19/24at 08:45; Start 11/04/24 at 09:00; Stop 12/04/24 at 08:59 Atorvastatin Calcium 40 mg HS PO; Start 11/03/24 at 21:00; Stop 11/03/24 at 20:40; Status DC Enoxaparin Sodium 40 mg DAILY SQ Last administered on 11/05/24at 09:06; Start 11/04/24 at 09:00; Stop 11/07/24 at 13:38; Status DC Famotidine 20 mg DAILY PO Last administered on 11/05/24at 09:06; Start 11/04/24 at 09:00; Stop 11/07/24 at 13:38; Status DC Hydralazine HCl 10 mg Q6H PRN IV; Start 11/03/24 at 21:00; Stop 11/07/24 at 13:38; Status DC Lactulose 20 gm BID PRN PO; Start 11/03/24 at 21:00; Stop 11/07/24 at 14:00; Status DC Morphine Sulfate 2 mg Q4H PRN IVP Last administered on 11/04/24at 15:49; Start 11/03/24 at 21:00; Stop 11/07/24 at 13:38; Status DC Nitroglycerin 0.5 inch Q8H TD Last administered on 11/07/24at 05:46; Start 11/03/24 at 21:00; Stop 11/07/24 at 13:38; Status DC Ondansetron HCl 4 mg Q6H PRN IV; Start 11/03/24 at 21:00; Stop 11/07/24 at 14:00; Status DC Atorvastatin Calcium 40 mg HS PO Last administered on 11/07/24at 20:15; Start 11/03/24 at 21:00; Stop 11/09/24 at 07:45; Status DC Metoprolol Tartrate 50 mg BID PO Last administered on 11/06/24at 20:38; Start 11/04/24 at 21:00; Stop 11/07/24 at 13:38; Status DC Iohexol 35,000 mg STK-MED ONCE IV; Start 11/05/24 at 11:05; Stop 11/05/24 at 11:05; Status DC Sodium Chloride 1,000 ml @ 100 mls/hr Q10H ONCE IV Last administered on 11/05/24at 14:03; Start 11/05/24 at 13:30; Stop 11/05/24 at 23:29; Status DC Lidocaine HCl 20 ml STK-MED ONCE .ROUTE; Start 11/06/24 at 11:05; Stop 11/06/24 at 11:05; Status DC Iohexol 35,000 mg STK-MED ONCE IV; Start 11/06/24 at 11:05; Stop 11/06/24 at 11:06; Status DC Heparin Sodium (Porcine) 10,000 unit STK-MED ONCE .ROUTE; Start 11/06/24 at 11:05; Stop 11/06/24 at 11:06; Status DC Heparin Sodium/ Sodium Chloride 1,000 ml @ As Directed STK-MED ONCE IV; Start 11/06/24 at 11:06; Stop 11/06/24 at 11:06; Status DC Nitroglycerin 50 mg STK-MED ONCE .ROUTE; Start 11/06/24 at 11:06; Stop 11/06/24 at 11:06; Status DC Verapamil HCl 5 mg STK-MED ONCE .ROUTE; Start 11/06/24 at 11:06; Stop 11/06/24 at 11:06; Status DC Fentanyl Citrate 100 mcg STK-MED ONCE .ROUTE; Start 11/06/24 at 11:35; Stop 11/06/24 at 11:36; Status DC Midazolam HCl 2 mg STK-MED ONCE .ROUTE; Start 11/06/24 at 11:35; Stop 11/06/24 at 11:36; Status DC Vitamin B Complex 1,000 mcg DAILY IM Last administered on 11/12/24at 09:03; Start 11/07/24 at 09:00; Stop 11/13/24 at 08:59; Status DC Sodium Chloride 1,000 ml @ 100 mls/hr Q10H IV; Start 11/06/24 at 12:30; Stop 11/06/24 at 15:29; Status DC Cefazolin Sodium 2 gm ONCALL IVPB; Start 11/06/24 at 22:00; Stop 11/07/24 at 14:00; Status DC Epinephrine HCl 10 mg/Sodium Chloride 250 ml @ 0 mls/hr AD PRN IV; Start 11/07/24 at 11:00; Stop 11/07/24 at 14:02; Status DC Norepinephrine Bitartrate 250 ml @ 0 mls/hr AD PRN IV; Start 11/07/24 at 11:00; Stop 11/07/24 at 14:02; Status DC Aminocaproic Acid 81897 mg/Sodium Chloride 480 ml @ 0 mls/hr AD PRN IV; Start 11/07/24 at 11:00; Stop 11/07/24 at 14:03; Status DC Metoprolol Tartrate 25 mg ONCE ONCE PO Last administered on 11/07/24at 11:15; Start 11/07/24 at 11:30; Stop 11/07/24 at 11:31; Status DC Nitroglycerin/ Dextrose 1 ml @ As Directed STK-MED ONCE .ROUTE; Start 11/07/24 at 11:25; Stop 11/07/24 at 11:25; Status DC Acetaminophen 1,000 mg Q6H6 IV Last administered on 11/08/24at 18:08; Start 11/07/24 at 18:00; Stop 11/08/24 at 17:59; Status DC Aspirin 81 mg ONCE ONCE NG; Start 11/07/24 at 17:00; Stop 11/07/24 at 17:01; Status DC Docusate Sodium 100 mg BID PO Last administered on 11/07/24at 20:15; Start 11/07/24 at 21:00; Stop 11/08/24 at 10:11; Status DC Lactulose 20 gm BID PRN PO Last administered on 11/18/24at 06:21; Start 11/07/24 at 14:00; Stop 12/07/24 at 13:59 Furosemide 20 mg Q12H PO Last administered on 11/19/24at 08:46; Start 11/09/24 at 09:00; Stop 12/09/24 at 08:59 Furosemide 20 mg Q12H IV Last administered on 11/08/24at 20:23; Start 11/08/24 at 09:00; Stop 11/09/24 at 08:59; Status DC Enoxaparin Sodium 30 mg DAILY SQ Last administered on 11/12/24at 09:03; Start 11/10/24 at 09:00; Stop 11/13/24 at 08:38; Status DC Metoprolol Tartrate 12.5 mg BID PO; Start 11/09/24 at 09:00; Stop 11/11/24 at 09:39; Status DC Magnesium Hydroxide 30 ml DAILY PRN PO; Start 11/07/24 at 14:00; Stop 12/07/24 at 13:59 Dexmedetomidine/ Sodium Chloride 400 mcg PROTOCOL IV; Start 11/07/24 at 14:00; Stop 12/07/24 at 13:59 Acetaminophen 650 mg Q6H PRN PO Last administered on 11/16/24at 11:37; Start 11/07/24 at 14:00; Stop 12/07/24 at 13:59 Sodium Chloride 1,000 ml @ 10 mls/hr ONCE IV Last administered on 11/07/24at 20:11; Start 11/07/24 at 14:00; Stop 11/08/24 at 13:59; Status DC Sodium Chloride 10 ml Q8H PRN IVP; Start 11/07/24 at 14:00; Stop 12/07/24 at 13:59 Morphine Sulfate 0.5 mg Q2H PRN IV; Start 11/07/24 at 14:00; Stop 11/08/24 at 13:59; Status DC Morphine Sulfate 1 mg Q2H PRN IV; Start 11/07/24 at 14:00; Stop 11/08/24 at 13:59; Status DC Acetaminophen 650 mg Q4H PRN RC; Start 11/07/24 at 14:00; Stop 12/07/24 at 13:59 Ondansetron HCl 4 mg Q6H PRN IV Last administered on 11/09/24at 21:50; Start 11/07/24 at 14:00; Stop 12/07/24 at 13:59 Sodium Chloride 500 ml @ 0 mls/hr AD IV Last administered on 11/10/24at 00:41; Start 11/07/24 at 14:00; Stop 12/07/24 at 13:59 Nitroglycerin/ Dextrose 0 ml @ 0 mls/hr AD IV; Start 11/07/24 at 14:00; Stop 11/10/24 at 13:59; Status DC Propofol 100 ml @ 0 mls/hr AD PRN IV; Start 11/07/24 at 14:00; Stop 11/11/24 at 13:59; Status DC Norepinephrine Bitartrate 250 ml @ 0 mls/hr AD PRN IV Last administered on 11/09/24at 17:09; Start 11/07/24 at 14:00; Stop 11/12/24 at 13:59; Status DC Epinephrine HCl 10 mg/Sodium Chloride 250 ml @ 13.948 mls/ hr AD PRN IV Last administered on 11/09/24at 19:48; Start 11/07/24 at 14:00; Stop 11/12/24 at 13:59; Status DC Aminocaproic Acid 36066 mg/Sodium Chloride 310 ml @ 25 mls/hr AD IV; Start 11/07/24 at 14:00; Stop 11/08/24 at 02:23; Status DC Calcium Gluconate 1 gm/Sodium Chloride 60 ml @ 200 mls/hr AD PRN IV Last administered on 11/16/24at 05:52; Start 11/07/24 at 14:00; Stop 12/07/24 at 13:59 Magnesium Sulfate 50 ml @ 12.5 mls/hr AD PRN IV Last administered on 11/09/24at 05:59; Start 11/07/24 at 14:00; Stop 12/07/24 at 13:59 Potassium Chloride 100 ml @ 100 mls/hr AD PRN IV Last administered on 11/19/24at 06:35; Start 11/07/24 at 14:00; Stop 12/07/24 at 13:59 Potassium Phosphate 250 ml @ 42 mls/hr AD PRN IV Last administered on 11/08/24at 07:22; Start 11/07/24 at 14:00; Stop 12/07/24 at 13:59 Albumin Human 250 ml @ 0 mls/hr AD PRN IV Last administered on 11/08/24at 09:57; Start 11/07/24 at 14:00; Stop 11/08/24 at 09:57; Status DC Acetaminophen 650 mg Q4H PRN PO; Start 11/07/24 at 14:00; Stop 12/07/24 at 13:59 Insulin Human Regular 100 unit/ Sodium Chloride 100 ml @ 0 mls/hr AD IV Last administered on 11/08/24at 12:30; Start 11/07/24 at 14:00; Stop 11/09/24 at 13:59; Status DC Cefazolin Sodium 2 gm Q8H IVPB Last administered on 11/08/24at 11:15; Start 11/07/24 at 19:00; Stop 11/08/24 at 11:01; Status DC Tramadol HCl 25 mg Q6H PRN PO; Start 11/07/24 at 14:00; Stop 11/09/24 at 08:37; Status DC Tramadol HCl 50 mg Q6H PRN PO Last administered on 11/08/24at 23:30; Start 11/07/24 at 14:00; Stop 11/09/24 at 08:37; Status DC Famotidine 20 mg BID IV Last administered on 11/08/24at 08:11; Start 11/07/24 at 21:00; Stop 11/08/24 at 08:59; Status DC Sodium Bicarbonate 50 meq AD PRN IV Last administered on 11/08/24at 00:54; Start 11/07/24 at 14:00; Stop 11/10/24 at 13:59; Status DC Dextrose 50 ml AD PRN IV; Start 11/07/24 at 14:00; Stop 12/07/24 at 13:59 Glucagon 1 mg AD PRN IM; Start 11/07/24 at 14:00; Stop 12/07/24 at 13:59 Protamine Sulfate 250 mg STK-MED ONCE IV; Start 11/07/24 at 14:25; Stop 11/07/24 at 14:26; Status DC Lidocaine HCl 100 mg STK-MED ONCE .ROUTE; Start 11/07/24 at 14:25; Stop 11/07/24 at 14:26; Status DC Heparin Sodium (Porcine) 10,000 unit STK-MED ONCE .ROUTE; Start 11/07/24 at 14:26; Stop 11/07/24 at 14:26; Status DC Epinephrine HCl 1 mg STK-MED ONCE .ROUTE; Start 11/07/24 at 14:26; Stop 11/07/24 at 14:26; Status DC Sodium Bicarbonate 200 ml @ As Directed STK-MED ONCE .ROUTE; Start 11/07/24 at 14:26; Stop 11/07/24 at 14:26; Status DC Norepinephrine Bitartrate 4 mg STK-MED ONCE IV; Start 11/07/24 at 14:26; Stop 11/07/24 at 14:26; Status DC Propofol 200 mg STK-MED ONCE IV; Start 11/07/24 at 14:26; Stop 11/07/24 at 14:26; Status DC Fentanyl Citrate 1,000 mcg STK-MED ONCE IJ; Start 11/07/24 at 14:26; Stop 11/07/24 at 14:27; Status DC Midazolam HCl 2 mg STK-MED ONCE .ROUTE; Start 11/07/24 at 14:26; Stop 11/07/24 at 14:27; Status DC Rocuronium [place] 50 mg STK-MED ONCE .ROUTE; Start 11/07/24 at 14:27; Stop 11/07/24 at 14:27; Status DC Ketamine HCl 50 mg STK-MED ONCE .ROUTE; Start 11/07/24 at 14:31; Stop 11/07/24 at 14:31; Status DC Cefazolin Sodium 1 gm STK-MED ONCE .ROUTE Last administered on 11/07/24at 15:00; Start 11/07/24 at 14:55; Stop 11/07/24 at 14:56; Status DC Heparin Sodium/ Sodium Chloride 500 ml @ As Directed STK-MED ONCE IV; Start 11/07/24 at 14:57; Stop 11/07/24 at 14:57; Status DC Papaverine HCl 60 mg STK-MED ONCE .ROUTE Last administered on 11/07/24at 15:51; Start 11/07/24 at 14:57; Stop 11/07/24 at 14:57; Status DC Cefazolin Sodium 1 gm STK-MED ONCE .ROUTE Last administered on 11/07/24at 15:49; Start 11/07/24 at 15:46; Stop 11/07/24 at 15:46; Status DC Amiodarone HCl 150 mg STK-MED ONCE .ROUTE; Start 11/07/24 at 17:06; Stop 11/07/24 at 17:06; Status DC Amiodarone HCL/ Dextrose 100 ml @ As Directed STK-MED ONCE .ROUTE; Start 11/07/24 at 17:08; Stop 11/07/24 at 17:09; Status DC Cardioplegic Solution 0 ml @ As Directed STK-MED ONCE IV; Start 11/07/24 at 17:13; Stop 11/07/24 at 17:13; Status DC Heparin Sodium (Porcine) 10,000 unit STK-MED ONCE .ROUTE; Start 11/07/24 at 17:15; Stop 11/07/24 at 17:15; Status DC Sodium Bicarbonate 50 ml @ As Directed STK-MED ONCE .ROUTE; Start 11/07/24 at 17:26; Stop 11/07/24 at 17:26; Status DC Sodium Bicarbonate 200 ml @ As Directed STK-MED ONCE .ROUTE; Start 11/07/24 at 17:36; Stop 11/07/24 at 17:36; Status DC Midazolam HCl 5 mg STK-MED ONCE .ROUTE; Start 11/07/24 at 17:57; Stop 11/07/24 at 17:57; Status DC Sodium Bicarbonate 150 ml @ As Directed STK-MED ONCE .ROUTE; Start 11/07/24 at 18:06; Stop 11/07/24 at 18:06; Status DC Amiodarone HCL/ Dextrose 100 ml @ As Directed STK-MED ONCE .ROUTE; Start 11/07/24 at 18:25; Stop 11/07/24 at 18:25; Status DC Cefazolin Sodium 1 gm STK-MED ONCE .ROUTE; Start 11/07/24 at 18:43; Stop 11/07/24 at 18:43; Status DC Ketamine HCl 50 mg STK-MED ONCE .ROUTE; Start 11/07/24 at 18:56; Stop 11/07/24 at 18:56; Status DC Ephedrine Sulfate 50 mg STK-MED ONCE .ROUTE; Start 11/07/24 at 18:58; Stop 11/07/24 at 18:59; Status DC Lidocaine HCl/ Dextrose 250 ml @ As Directed STK-MED ONCE IV Last administered on 11/07/24at 20:08; Start 11/07/24 at 19:02; Stop 11/07/24 at 19:02; Status DC Dextrose/Sodium Bicarbonate 1,025 ml @ 10 mls/hr Q24H IV Last administered on 11/19/24at 03:11; Start 11/07/24 at 19:30; Stop 12/07/24 at 19:29 Calcium Gluconate 1 gm AD PRN IV Last administered on 11/08/24at 16:36; Start 11/08/24 at 09:00; Stop 11/09/24 at 07:45; Status DC Pantoprazole Sodium 40 mg BID IVP Last administered on 11/19/24at 08:46; Start 11/08/24 at 09:00; Stop 12/08/24 at 08:59 Montelukast Sodium 10 mg HS PO Last administered on 11/18/24at 20:49; Start 11/08/24 at 21:00; Stop 12/08/24 at 20:59 Ipratropium [place] 0.5 MG [id number] IH Last administered on 11/19/24at 11:08; Start 11/08/24 at 12:00; Stop 12/08/24 at 11:59 Polyethylene Glycol 17 gm DAILY PO Last administered on 11/19/24at 08:46; Start 11/09/24 at 09:00; Stop 12/09/24 at 08:59 Polyethylene Glycol 17 gm STK-MED ONCE .ROUTE; Start 11/08/24 at 10:01; Stop 11/08/24 at 10:02; Status DC Docusate Sodium 100 mg BID NG Last administered on 11/09/24at 20:47; Start 11/08/24 at 10:30; Stop 11/09/24 at 21:53; Status DC Levothyroxine Sodium 125 mcg SYN PO Last administered on 11/19/24at 06:34; Start 11/09/24 at 06:30; Stop 12/09/24 at 06:29 Clopidogrel Bisulfate 75 mg DAILY PO Last administered on 11/19/24at 08:45; Start 11/08/24 at 14:00; Stop 12/08/24 at 13:59 Sucralfate 1 gm TID PO Last administered on 11/19/24at 08:45; Start 11/08/24 at 21:00; Stop 12/08/24 at 20:59 Lidocaine HCl/ Dextrose 250 ml @ 0 mls/hr PROTOCOL PRN IV Last administered on 11/08/24at 21:15; Start 11/08/24 at 21:00; Stop 11/09/24 at 08:37; Status DC Metoclopramide HCl 5 mg ONCE ONCE IVP Last administered on 11/09/24at 00:22; Start 11/09/24 at 00:30; Stop 11/09/24 at 00:31; Status DC Acetaminophen 100 ml @ As Directed STK-MED ONCE .ROUTE; Start 11/09/24 at 07:08; Stop 11/09/24 at 07:08; Status DC Acetaminophen 1,000 mg ONCE ONCE IVPB Last administered on 11/09/24at 07:47; Start 11/09/24 at 08:00; Stop 11/09/24 at 08:01; Status DC Acetaminophen 1,000 mg Q6H IVPB Last administered on 11/12/24at 02:11; Start 11/09/24 at 09:00; Stop 11/12/24 at 08:59; Status DC Lidocaine/ Prilocaine 1 appl ONCE ONCE TP Last administered on 11/09/24at 09:49; Start 11/09/24 at 09:30; Stop 11/09/24 at 09:33; Status DC Piperacillin Sod/ Tazobactam Sod 3.375 gm Q8H IV Last administered on 11/19/24at 02:20; Start 11/09/24 at 10:00; Stop 11/19/24 at 09:59; Status DC Piperacillin Sod/ Tazobactam Sod 3.375 gm Q8H IV; Start 11/09/24 at 10:00; Stop 11/09/24 at 09:38; Status DC Midodrine 10 mg TID PO Last administered on 11/10/24at 20:07; Start 11/09/24 at 21:00; Stop 11/11/24 at 06:58; Status DC Docusate Sodium 100 mg BID PO Last administered on 11/19/24at 08:46; Start 11/10/24 at 09:00; Stop 12/10/24 at 08:59 Calcium Chloride 1,000 mg STK-MED ONCE IVP; Start 11/03/24 at 12:28; Stop 11/10/24 at 12:31; Status DC Albumin Human 50 ml @ As Directed STK-MED ONCE IV; Start 11/03/24 at 12:28; Stop 11/10/24 at 12:31; Status DC Heparin Sodium (Porcine) 10,000 unit STK-MED ONCE IV; Start 11/03/24 at 12:28; Stop 11/10/24 at 12:31; Status DC Lidocaine HCl 5 mg STK-MED ONCE IVP; Start 11/03/24 at 12:28; Stop 11/10/24 at 12:31; Status DC Magnesium Sulfate 1 gm STK-MED ONCE IM; Start 11/03/24 at 12:28; Stop 11/10/24 at 12:31; Status DC Mannitol 12.5 gm STK-MED ONCE IV; Start 11/03/24 at 12:28; Stop 11/10/24 at 12:31; Status DC Norepinephrine Bitartrate 1 mg STK-MED ONCE IV; Start 11/03/24 at 12:28; Stop 11/10/24 at 12:31; Status DC Sodium Bicarbonate 50 meq STK-MED ONCE IVP; Start 11/03/24 at 12:28; Stop 11/10/24 at 12:31; Status DC Atorvastatin Calcium 40 mg HS PO Last administered on 11/18/24at 20:49; Start 11/10/24 at 21:00; Stop 12/10/24 at 20:59 Midodrine 15 mg TID PO Last administered on 11/19/24at 08:44; Start 11/11/24 at 09:00; Stop 12/11/24 at 08:59 Lidocaine HCl 20 ml STK-MED ONCE .ROUTE Last administered on 11/12/24at 10:06; Start 11/12/24 at 09:24; Stop 11/12/24 at 09:24; Status DC Norepinephrine Bitartrate 250 ml @ 0 mls/hr PROTOCOL IV Last administered on 11/13/24at 08:42; Start 11/12/24 at 18:30; Stop 12/12/24 at 18:29 Epinephrine HCl 10 mg/Sodium Chloride 250 ml @ 0 mls/hr PROTOCOL IV Last administered on 11/18/24at 04:56; Start 11/12/24 at 23:30; Stop 12/12/24 at 23:29 Heparin Sodium (Porcine) *calculation based on ACTUAL B... AD PRN IV; Start 11/13/24 at 09:30; Stop 12/13/24 at 09:29 Heparin Sodium/ Dextrose 250 ml @ 0 mls/hr Q6H IV Last administered on 11/19/24at 11:54; Start 11/13/24 at 09:30; Stop 12/13/24 at 09:29 Pharmacy Profile Note 1 each ONCE MISC; Start 11/13/24 at 09:00; Stop 11/13/24 at 08:57; Status DC Lidocaine HCl 20 ml STK-MED ONCE .ROUTE Last administered on 11/13/24at 10:24; Start 11/13/24 at 09:10; Stop 11/13/24 at 09:11; Status DC Lidocaine HCl ONCE ONCE INJ; Start 11/13/24 at 10:00; Stop 11/13/24 at 10:01; Status DC Folic Acid 1 mg DAILY PO Last administered on 11/19/24at 08:45; Start 11/14/24 at 09:00; Stop 12/14/24 at 08:59 Vitamin B Complex 1,000 mcg DAILY PO Last administered on 11/19/24at 08:46; Start 11/14/24 at 09:00; Stop 12/14/24 at 08:59 Iron Sucrose 100 mg ONCE ONCE IV; Start 11/13/24 at 13:30; Stop 11/13/24 at 13:24; Status DC Potassium Chloride 20 meq AD PRN PO Last administered on 11/14/24at 00:17; Start 11/14/24 at 00:30; Stop 12/14/24 at 00:29 Potassium Chloride 20 meq AD PRN PO Last administered on 11/17/24at 08:09; Start 11/14/24 at 00:30; Stop 12/14/24 at 00:29 Albumin Human 250 ml @ 0 mls/hr AD STAT IV Last administered on 11/15/24at 13:28; Start 11/15/24 at 13:09; Stop 11/15/24 at 13:12; Status DC Bisacodyl 10 mg ONCE ONCE RC Last administered on 11/18/24at 10:17; Start 11/18/24 at 10:00; Stop 11/18/24 at 10:01; Status DC Sodium Chloride 250 ml @ 0 mls/hr Q0M IV Last administered on 11/18/24at 10:13; Start 11/18/24 at 10:00; Stop 12/18/24 at 09:59 Iron Sucrose 300 mg/Sodium Chloride 250 ml @ 83 mls/hr ONCE ONCE IV; Start 11/18/24 at 21:00; Stop 11/18/24 at 10:42; Status DC Iron Sucrose 300 mg/Sodium Chloride 250 ml @ 83 mls/hr ONCE ONCE IV Last administered on 11/18/24at 20:48; Start 11/18/24 at 21:00; Stop 11/19/24 at 00:00; Status DC TAINA ARZOLA MD Nov 19, 2024 13:30
--- NOTE | 2024-11-19 13:55 | PN ---
[facility] PROGRESS NOTE Date of Service: Nov 19, 2024 Time of Service: 8:50 SUBJECTIVE: Mr. Valadez a 68-year-old male that was seen and examined today on 11/03/2024. Patient reports that he came to the emergency department with a chief complaint of chest pain. Onset was two or three years ago. He had similar repeated episodes months back which resolved on its own. Today's episode began at 11:00 a.m. Location is midsternal. Duration is on and off. Character is described as "neck someone is pushing a knuckle into the center of my chest. The chest pain did not radiate to shoulder, neck or jaw. "There was no alleviating factors. There was no aggravating factors. Patient reports that symptoms seemingly resolve on their own. He denies nausea, vomiting, fever and any other associated symptoms. Patient denies any associated shortness of breath. Patient has a past medical history of hyperlipidemia and Graves disease. He has been taking atorvastatin and Synthroid as his home medications. Today in the emergency department WBC 5.8, hemoglobin 12.9 platelets 197. His chemistries were within normal limits sodium 140, potassium 4.2, blood urea nitrogen 15 and creatinine 1.0. His electrocardiogram showed normal sinus rhythm. Patient will be admitted for further evaluation and related recommendations in Med-Surg. 11/04/24 Patient was evaluated at the bedside in ED-09. He reports that he is having chest pain that comes and goes. The patient reports having 2 episodes of chest pain in the last hour. He denies associated symptoms such as shortness of breath, palpitation, diaphoresis, dizziness, nausea or syncope. He does however complain of muscle pain in his lower limbs described as a dull aching discomfort that begins in the hip region that is worsened with movement. The patient complains of tingling and numbness in his feet bilaterally. No fever, chills or recent infection reported. Appetite and oral intake are normal. No other acute complaints at this time. On physical exam, a systolic murmur was auscultated over the aortic area. Bilateral carotid bruits are present. Lower extremities are cool to the touch with diminished pedal pulses. Patient reports bilateral leg muscle pain with exertion (suggestive of claudication), and chronic numbness and tingling in the feet. Patient reports recently quitting smoking tobacco for 2 months. He had a 1 pack a day smoking history since 1968. The [facility] and denies following with a card placer. The patient says his chest pain has been ongoing for the past 3 years, and that it gets worse with exertion and at rest. 11/05/24 Patient was evaluated at the bedside room 231. He was hemodynamically stable. Hi symptoms has improved significantly. He doesn't complain of chest pain, shortness of breath and any other associated symptoms. Echocardiogram was done which revealed aortic valve: trileaflet, mildly sclerotic, and opens well. Carotid artery ultrasound showed Bilateral ICA/CCA ratio more than 4.0 suggesting more than 70% stenosis. 11/06/24 Patient was evaluated at the bedside room 231. He was hemodynamically stable. Hi symptoms has improved significantly. He doesn't complain of chest pain, shortness of breath and any other associated symptoms. In coronary CT angiography there is mixed calcified and noncalcified plaque in the proximal LAD with 80-90% stenosis. Left circumflex coronary artery: Normal caliber, nondominant and gives rise to a large OM branch. There is mixed calcified and noncalcified plaque in the mid LCx with 80-90% stenosis. CAD-RAD of 4B. Left heart catheterization with selective right and left coronary angiography was performed which showed critical left main disease. 11/07/24 Patient was evaluated at the bedside room 231. He was hemodynamically stable. He doesn't complain of chest pain, shortness of breath and any other associated symptoms. He complaints of headache 8/10 of intensity after the administration of Nitroglycerin. Cardiac catheterization demonstrated a very tight left main lesion and the patient is referred for surgical revascularization. As per Dr Meza: Surgery is planned for today. 11/08/24: Patient was seen and evaluated this morning at bedside. The patient is POD 1 s/p CABG. Patient is currently being managed in the ICU. The patients most recent ABG shows a pH of 7.43, ABG PCO2 47, ABG PO2 77.9, ABG HCO3 30.8. Recent ABG shows improving lactic acid, from 8 to 3.85. The patients chemistry reveals a sodium level 157, potassium level 3.4, creatinine 1.9, BUN 19, GFR 38, phosphorous 2.2. Liver enzymes are trending up, with an ALT level at 325 and an AST level at 869. The patients home medication of Synthroid has been restarted. Chest x-ray ordered today, results pending. We will continue to follow recommendations from critical care team, and cardiology. 11/09/2024: Patient is seen and evaluated in the room 213. The patient is POD 2 s/p CABG. Patient is currently being managed in the ICU. He is complaining of pain. His vitals are in the normal range. His Hb is 11.1, WBC is 19.1, Plt is 115, sodium is 154, chloride is 113, glucose is 122. His recent ABG shows that pH is 7.472, pO2 is 80.1, bicarb is 30.4, Hb is 11.4, lactic acid is 1.63. His chest X-ray on 11/08 showed improved aeration within the left perihilar and left basilar regions. As per nurse he is having intervention confusion, stopped lidocaine and they also weaning on pressors norepinephrine and epinephrine. The drain output from left anterior chest is 20ml, mediastinal lateral is 160ml, mediastinal mediastinal is 300ml, right anterior chest is 160 ml. We will continue to follow recommendations from critical care team, and cardiology. 11/10/2024: Patient was seen and evaluated this morning at bedside. The patient is POD 3 s/p CABG. Patient is currently being managed in the ICU. He is not having any symptoms today. His vitals are in the normal range. His labs are normal except for Hb is 10.1, WBC is 14.7, plt is 85, sodium is 147, AST is 156, ALT is 95, APTT is 25.5. ABG shows that his pH is 7.4, lactate is 1.22, bicarb is 31. The drain output from left anterior chest is 170 ml, mediastinal mediastinal is 130ml. We will continue to follow recommendations from critical care team, and cardiology. 11/11/2024: Patient was seen and evaluated this morning at bedside. The patient is POD 4 s/p CABG. He is not having any symptoms today. His vitals are in the normal range. His labs are normal except for hemoglobin is 9.7, WBC is 11.7, platelet is 106, glucose is 107, AST is 87, ALT is 62. ABG shows pH is 7.468, lactic acid is 1.03. We will continue to follow recommendations from critical care team, and cardiology. 11/12/2024: Patient was seen and evaluated in the room 218. The patient is POD 5 s/p CABG. He is having dizziness and ache in the left shoulder. His vitals are in the normal range. His labs are normal except for hemoglobin 9.6, platelets i s 94, AST 75. ABG shows pH 7.487, lactic acid 1.2. Currently he is not on any pressors. Cardiovascular surgery tried to wean Impella. They decreased impella setting to P4 but his blood pressure is low so they went back to P5. Cardiovascular surgery also increased his midodrine dose to 15mg. His chest X- ray showed mild pulmonary vascular congestion. He had a bowel movement and good urine output. He is using incentive spirometry well. We will continue to follow recommendations from the critical Care team and Cardiology. 11/13/2024: Patient was seen and evaluated in the room 218. The patient is POD 6 s/p CABG. He is having dizziness and generalized ache. His vitals are in the normal range. His labs are normal except for Hb is 8.9, calcium is 7.4, glucose is 140. His chest x-ray showed that mild borderline cardiomegaly with median sternotomy with cardiac and aspiration procedure, support lines in satisfactory position, no evidence of airspace consolidation or pulmonary venous congestion. He is restarted on norepinephrine and epinephrine drip and impella at P5 as he is hypotensive and has bradycardia. The nurse told me that she will consult anesthesia for changing the arterial line as his line is not working. He is on heparin drip and off of lovenox. The drain output from left anterior chest is 260 ml, mediastinal mediastinal is 60ml. Hematology was consulted as he is in a hypercoagulable state. 11/14/2024: Patient was seen and evaluated in the room 218. The patient is POD 7 s/p CABG. His vital signs are in the normal range except for blood pressure is 88/64. His labs are normal except for hemoglobin is 8.8, APTT is 62.4, glucose is 133, calcium is 7.5, AST is 61. Chest X-ray showed mild cardiomegaly with median sternotomy with cardiac revascularization procedure, support lines are in satisfactory position. His impella is increased to P7 as he is hypotensive and bradycardic. He is on epinephrine. The drain output from left anterior chest is 80ml and from mediastinal mediastinal is 20ml. Hematology saw the patient and they recommended to start folic acid, vitamin B12, ordered SPEP, UPEP, free light chains. They think that the patient might be having hemolytic anemia which could be the reason for his graft clotting after surgery. 11/15/2024: He was evaluated at the bedside this morning. The patient is POD 8 s/p CABG. He is on Impella support with blood pressure 89/64 with map 72. Remarkable lab is for hemoglobin 9.2. Chest x-ray revealed mildly improved right lower lobe airspace opacity with stable cardiac support device and median sternotomy. His MPOA is encouraged to P8 and weaned off the pressors. Hematology recommending Tatiana test to rule out autoimmune hemolytic anemia. Hematology, CT surgery, critical care and cardiology on the board. Rest of the plan as discussed below. 11/16/2024: He was evaluated at the bedside this morning. The patient is POD 9 s/p CABG. Impella support has been weaned to P5 today. As per Dr. Khan, epi will be turned on at 0.03 mcg/kg/min and Impella performance level will be decreased to p4 tomorrow morning. Today, patient's BP is at 102/62, 79bpm and he is on 3L O2 nasal cannula. He is pending direct tatiana test, SPEP, UPEP and Free Light Chain assay as per hematology. His Hb from today is 8.9. Chest Tube drainage is at 201 ml. Hematology, CT surgery, critical care and cardiology on the board. 11/17/2024: He was evaluated at the bedside this morning. The patient is POD 10 s/p CABG. Impella support has been weaned to P4 today. Patient is currently on epinephrine 0.03 mcg/kg/minute as per Dr. Khan. Patient is receiving Lasix for diuresis and her urine output in the past 24 hours has been for 4050 mL. Mediastinal mediastinal chest tube drainage is 40 mL. Left anterior chest tube drainage is 104 mL. Hematology, CT surgery, critical care and cardiology on the board. 11/18/2024: He was evaluated at the bedside this morning. The patient is POD 11 s/p CABG. Impella support continues on P4 today. Plan is to wean off further tomorrow. Patient is currently on epinephrine 0.05 mcg/kg per minute. His blood pressure is running low, 88/48. Patient is receiving Lasix for diuresis and his urine output in the past 24 hours has been for 3400 mL. Mediastinal mediastinal chest tube drainage is 60 mL. Left anterior chest tube drainage is 140 mL. Hematology, CT surgery, critical care and cardiology on the board. As per Hematology recommendations, IV iron sucrose was ordered since iron panel showed low iron, and low percentage saturation. 11/19/2024: Patient was seen and evaluated at the bedside this morning. The patient is POD 12 s/p CABG. Impella support continues on P4 today and there is a plan to wean it off further, awaiting cardiothoracic surgery recommendations. Patient is currently maintained on epinephrine 0.03 mcg/kg per minute. His blood pressure is still running low, 92/44. He passed stool twice yesterday, after 7 days of constipation. Hematology, CT surgery, critical care and cardiology on the board. REVIEW OF SYSTEMS CONSTITUTIONAL: Pain in his left shoulder No fever, chills, or night sweats. NEUROLOGICAL: No headache no sensory and motor deficit. CARDIOVASCULAR: Dizziness Denies any exertional angina, dyspnea on exertion, palpitations. PULMONARY: Denies any shortness of breath, cough, phlegm/sputum, hemoptysis, pleuritic chest pain. GASTROINTESTINAL: Constipation. Denies nausea, vomiting. Denies pain, tender ness around the abdomen. GENITOURINARY: Denies frequency, urgency, nocturia, hematuria or incontinence. PHYSICAL EXAM GENERAL APPEARANCE: The patient is alert, awake and oriented and bedbound. NEUROLOGICAL: No sensory and motor deficits. CHEST: left anterior chest , mediastinal mediastinal drains are present. Dressing is clean Normal chest expansion. LUNGS: Normal vesicular breath sound. Absence of any rales, rhonchi or any wheezing. CARDIOVASCULAR: Systolic murmur heard over aortic area. Bilateral carotid bruits heard. No JVD. ABDOMEN: Soft nontender, and nondistended. There is no rebound, voluntary guarding, or rigidity. No abdominal bruit heard. GENITOURINARY: No suprapubic tenderness. No costovertebral angle tenderness. EXTREMITIES: Limbs are non-edematous. Vital Signs (last 8hr) Date Time Temp Pulse Resp B/P (MAP) Pulse Ox O2 Delivery O2 Flow Rate FiO2 11/19/24 12:00 94 Room Air* 0 21 11/19/24 12:00 98.1 11/19/24 11:07 89 20 N/A Room Air 21 11/19/24 11:07 89 18 11/19/24 08:00 98.2 11/19/24 08:00 94 Room Air* 0 21 11/19/24 06:29 75 18 N/A Room Air 21 11/19/24 06:29 75 18 11/19/24 05:55 72 18 93 92/44 (60) LABS: Laboratory: Test 11/19/24 12:13 11/19/24 03:46 Range/Units Activated Partial Thromboplast Time 43.0 #H 26.3-35.5 SEC White Blood Count 12.4 H 4.8-10.8 K/uL Red Blood Count 2.86 L 4.50-6.20 MIL/uL Hemoglobin 9.0 L 14.0-18.0 g/dL Hematocrit 28.0 L 42-54 % Mean Corpuscular Volume 97.9 79-99 fL Mean Corpuscular Hemoglobin 31.5 27.0-33.0 pg Mean Corpuscular Hemoglobin Concent 32.1 32.0-36.0 g/dL Red Cell Distribution Width 13.7 11.0-15.5 % Platelet Count 487 H 130-400 K/uL Mean Platelet Volume 9.6 7.5-10.5 fL Nucleated Red Blood Cells 0.0 0.0-0.19 % Sodium Level 139 136-145 mmol/L Potassium Level 3.8 3.5-5.1 mmol/L Chloride Level 105 101-111 mmol/L Carbon Dioxide Level 25 21-32 mmol/L Blood Urea Nitrogen 9 7-18 mg/dL Creatinine 1.0 0.5-1.3 mg/dL Glomerular Filtration Rate Calc 82 >90 mL/min Random Glucose 125 H 70-105 mg/dL Total Calcium 7.9 L 8.5-10.1 mg/dL Magnesium Level 2.30 1.80-2.40 mg/dL Procalcitonin < 0.05 L 0.05-0.5 ng/mL Thyroid Stimulating Hormone (TSH) 7.13 #H 0.36-3.74 uIU/mL Current Medications Medications (Trade) Dose Ordered Sig/Brittany Route PRN Reason Start Time Stop Time Status Last Admin Dose Admin Acetaminophen (TYLenol 325MG TAB) 650 mg Q4H PRN PO Temp >38.3C(AFTER EXTUBATION) 11/07/24 14:00 12/07/24 13:59 Acetaminophen (TYLenol 325MG TAB) 650 mg Q6H PRN PO TEMPERATURE GREATER THAN 101.5 11/03/24 21:00 11/07/24 14:00 DC 11/06/24 23:00 650 MG Acetaminophen (TYLenol 325MG TAB) 650 mg Q6H PRN PO MILD PAIN (1-3) 11/07/24 14:00 12/07/24 13:59 11/16/24 11:37 650 MG Acetaminophen (TYLenol 650MG SUPPOSITORY) 650 mg Q4H PRN RC Temp >38.3C WHILE INTUBATED 11/07/24 14:00 12/07/24 13:59 Acetaminophen (acetaMINOPHEN) 1,000 mg Q6H IVPB 11/09/24 09:00 11/12/24 08:59 DC 11/12/24 02:11 1,000 MG Acetaminophen (acetaMINOPHEN) 1,000 mg Q6H6 IV 11/07/24 18:00 11/08/24 17:59 DC 11/08/24 18:08 1,000 MG Albumin Human 250 ml @ 0 mls/hr AD PRN IV IF HEMODYNAMICALLY UNSTABLE 11/07/24 14:00 11/08/24 09:57 DC 11/08/24 09:57 125 MLS/HR Albumin Human 250 ml @ 0 mls/hr AD STAT IV 11/15/24 13:09 11/15/24 13:12 DC 11/15/24 13:28 250 MLS/HR Aminocaproic Acid 47369 mg/Sodium Chloride 310 ml @ 25 mls/hr AD IV 11/07/24 14:00 11/08/24 02:23 DC Aminocaproic Acid 77976 mg/Sodium Chloride 480 ml @ 0 mls/hr AD PRN IV BLEEDING CONTROL 11/07/24 11:00 11/07/24 14:03 DC Aspirin (Aspirin 81mg Ec Tab) 81 mg DAILY PO 11/04/24 09:00 12/04/24 08:59 11/19/24 08:45 81 MG Atorvastatin Calcium (LIPItor 40MG) 40 mg HS PO 11/03/24 21:00 11/03/24 20:40 DC Atorvastatin Calcium (LIPItor 40MG) 40 mg HS PO 11/03/24 21:00 11/09/24 07:45 DC 11/07/24 20:15 40 MG Atorvastatin Calcium (LIPItor 40MG) 40 mg HS PO 11/10/24 21:00 12/10/24 20:59 11/18/24 20:49 40 MG Calcium Gluconate (Calcium Gluc 1gm Vial) 1 gm AD PRN IV HYPOCALCEMIA 11/08/24 09:00 11/09/24 07:45 DC 11/08/24 16:36 1 GM Calcium Gluconate 1 gm/Sodium Chloride 60 ml @ 200 mls/hr AD PRN IV HYPOCALCEMIA 11/07/24 14:00 12/07/24 13:59 11/16/24 05:52 200 MLS/HR Cefazolin Sodium (Ancef) 2 gm ONCALL IVPB 11/06/24 22:00 11/07/24 14:00 DC Cefazolin Sodium (Ancef) 2 gm Q8H IVPB 11/07/24 19:00 11/08/24 11:01 DC 11/08/24 11:15 2 GM Clopidogrel Bisulfate (plaVIX 75MG) 75 mg DAILY PO 11/08/24 14:00 12/08/24 13:59 11/19/24 08:45 75 MG Dexmedetomidine/ Sodium Chloride (PRECEdex 400MCG/ 100ML-NS) 400 mcg PROTOCOL IV 11/07/24 14:00 12/07/24 13:59 Dextrose (D50w) 50 ml AD PRN IV HYPOGLYCEMIA PROTOCOL 11/07/24 14:00 12/07/24 13:59 Dextrose/Sodium Bicarbonate 1,025 ml @ 10 mls/hr Q24H IV 11/07/24 19:30 12/07/24 19:29 11/19/24 03:11 10 MLS/HR Docusate Sodium (COLace 100MG CAP) 100 mg BID PO 11/07/24 21:00 11/08/24 10:11 DC 11/07/24 20:15 100 MG Docusate Sodium (COLace 100MG CAP) 100 mg BID PO 11/10/24 09:00 12/10/24 08:59 11/19/24 08:46 100 MG Docusate Sodium (COLace LIQUID 100MG/10ML) 100 mg BID NG 11/08/24 10:30 11/09/24 21:53 DC 11/09/24 20:47 100 MG Enoxaparin Sodium (Lovenox) 30 mg DAILY SQ 11/10/24 09:00 11/13/24 08:38 DC 11/12/24 09:03 30 MG Enoxaparin Sodium (Lovenox) 40 mg DAILY SQ 11/04/24 09:00 11/07/24 13:38 DC 11/05/24 09:06 40 MG Epinephrine HCl 10 mg/Sodium Chloride 250 ml @ 13.948 mls/ hr AD PRN IV POST-OP CARDIOVASCULAR ORDERS 11/07/24 14:00 11/12/24 13:59 DC 11/09/24 19:48 7 MLS/HR Epinephrine HCl 10 mg/Sodium Chloride 250 ml @ 0 mls/hr AD PRN IV TITRATE 11/07/24 11:00 11/07/24 14:02 DC Epinephrine HCl 10 mg/Sodium Chloride 250 ml @ 0 mls/hr PROTOCOL IV 11/12/24 23:30 12/12/24 23:29 11/18/24 04:56 7 MLS/HR Famotidine (Pepcid 20mg Vial) 20 mg BID IV 11/07/24 21:00 11/08/24 08:59 DC 11/08/24 08:11 20 MG Famotidine (Pepcid 20mg Tab) 20 mg DAILY PO 11/04/24 09:00 11/07/24 13:38 DC 11/05/24 09:06 20 MG Folic Acid (FOLic ACID 1 MG TABLET) 1 mg DAILY PO 11/14/24 09:00 12/14/24 08:59 11/19/24 08:45 1 MG Furosemide (LASix 20MG TAB) 20 mg Q12H PO 11/09/24 09:00 12/09/24 08:59 11/19/24 08:46 20 MG Furosemide (LASix 20MG VIAL) 20 mg Q12H IV 11/08/24 09:00 11/09/24 08:59 DC 11/08/24 20:23 20 MG Glucagon (Glucagon 1mg Kit) 1 mg AD PRN IM HYPOGLYCEMIA PROTOCOL 11/07/24 14:00 12/07/24 13:59 Heparin Sodium (Porcine) (HEParin 5,000 UNIT VIAL) *calculation based on ACTUAL B... AD PRN IV HEPARIN PROTOCOL 11/13/24 09:30 12/13/24 09:29 Heparin Sodium/ Dextrose 250 ml @ 0 mls/hr Q6H IV 11/13/24 09:30 12/13/24 09:29 11/19/24 11:54 12.35 MLS/HR Hydralazine HCl (APRESOLine 20MG INJ) 10 mg Q6H PRN IV For:SBP above 160;DBP above 90 11/03/24 21:00 11/07/24 13:38 DC Insulin Human Regular 100 unit/ Sodium Chloride 100 ml @ 0 mls/hr AD IV 11/07/24 14:00 11/09/24 13:59 DC 11/08/24 12:30 4 MLS/HR Ipratropium [place] (AtrovENT UD) 0.5 MG [id number] IH 11/08/24 12:00 12/08/24 11:59 11/19/24 11:08 0.5 MG Lactulose (Constulose 20gm/ 30ml Udcup) 20 gm BID PRN PO CONSTIPATION 11/03/24 21:00 11/07/24 14:00 DC Lactulose (Constulose 20gm/ 30ml Udcup) 20 gm BID PRN PO CONSTIPATION 11/07/24 14:00 12/07/24 13:59 11/18/24 06:21 20 GM Levothyroxine Sodium (SYNTHroid 125MCG TAB) 125 mcg SYN PO 11/09/24 06:30 12/09/24 06:29 11/19/24 06:34 125 MCG Lidocaine HCl/ Dextrose 250 ml @ 0 mls/hr PROTOCOL PRN IV OTHER [SEE ORDER COMMENTS] 11/08/24 21:00 11/09/24 08:37 DC 11/08/24 21:15 7.5 MLS/HR Magnesium Hydroxide (Milk Of Magnesium 30ml) 30 ml DAILY PRN PO CONSTIPATION 11/07/24 14:00 12/07/24 13:59 Magnesium Sulfate 50 ml @ 12.5 mls/hr AD PRN IV MAG LEVEL LESS THAN 2.0 11/07/24 14:00 12/07/24 13:59 11/09/24 05:59 12.5 MLS/HR Metoprolol Tartrate (loprESSOR) 12.5 mg BID PO 11/09/24 09:00 11/11/24 09:39 DC Metoprolol Tartrate (loprESSOR) 50 mg BID PO 11/04/24 21:00 11/07/24 13:38 DC 11/06/24 20:38 50 MG Midodrine (PROAMatine 5 MG TABLET) 10 mg TID PO 11/09/24 21:00 11/11/24 06:58 DC 11/10/24 20:07 10 MG Midodrine (PROAMatine 5 MG TABLET) 15 mg TID PO 11/11/24 09:00 12/11/24 08:59 11/19/24 08:44 15 MG Montelukast Sodium (SinguLAIR) 10 mg HS PO 11/08/24 21:00 12/08/24 20:59 11/18/24 20:49 10 MG Morphine Sulfate (morPHINE 2MG SYG) 0.5 mg Q2H PRN IV MODERATE PAIN (4-6) 11/07/24 14:00 11/08/24 13:59 DC Morphine Sulfate (morPHINE 2MG SYG) 1 mg Q2H PRN IV SEVERE PAIN (7-10) 11/07/24 14:00 11/08/24 13:59 DC Morphine Sulfate (morPHINE 4MG SYG) 2 mg Q4H PRN IVP SEVERE PAIN (7-10) 11/03/24 21:00 11/07/24 13:38 DC 11/04/24 15:49 2 MG Nitroglycerin (Nitroglycerin 1gm Oint) 0.5 inch Q8H TD 11/03/24 21:00 11/07/24 13:38 DC 11/07/24 05:46 0.5 INCH Nitroglycerin/ Dextrose 0 ml @ 0 mls/hr AD IV 11/07/24 14:00 11/10/24 13:59 DC Norepinephrine Bitartrate 250 ml @ 0 mls/hr AD PRN IV TITRATE 11/07/24 11:00 11/07/24 14:02 DC Norepinephrine Bitartrate 250 ml @ 0 mls/hr AD PRN IV POST-OP CARDIOVASCULAR ORDERS 11/07/24 14:00 11/12/24 13:59 DC 11/09/24 17:09 5.6 MLS/HR Norepinephrine Bitartrate 250 ml @ 0 mls/hr PROTOCOL IV 11/12/24 18:30 12/12/24 18:29 11/13/24 08:42 2 MLS/HR Ondansetron HCl (zoFRAN 4MG INJ) 4 mg Q6H PRN IV NAUSEA/VOMITING 11/03/24 21:00 11/07/24 14:00 DC Ondansetron HCl (zoFRAN 4MG INJ) 4 mg Q6H PRN IV NAUSEA/VOMITING 11/07/24 14:00 12/07/24 13:59 11/09/24 21:50 4 MG Pantoprazole Sodium (PROTonix 40MG INJ) 40 mg BID IVP 11/08/24 09:00 12/08/24 08:59 11/19/24 08:46 40 MG Pharmacy Profile Note (Pharmacy Communication) 1 each ONCE MISC 11/13/24 09:00 11/13/24 08:57 DC Piperacillin Sod/ Tazobactam Sod (Zosyn 3.375gm+NS 50ml) 3.375 gm Q8H IV 11/09/24 10:00 11/09/24 09:38 DC Piperacillin Sod/ Tazobactam Sod (Zosyn 3.375gm+NS 50ml) 3.375 gm Q8H IV 11/09/24 10:00 11/19/24 09:59 DC 11/19/24 02:20 3.375 GM Polyethylene Glycol (MIRalax 3350 17 GM POWD.PACK) 17 gm DAILY PO 11/09/24 09:00 12/09/24 08:59 11/19/24 08:46 17 GM Potassium Phosphate 250 ml @ 42 mls/hr AD PRN IV LOW PHOS LEVEL 11/07/24 14:00 12/07/24 13:59 11/08/24 07:22 42 MLS/HR Potassium Chloride 100 ml @ 100 mls/hr AD PRN IV HYPOKALEMIA 11/07/24 14:00 12/07/24 13:59 11/19/24 06:35 100 MLS/HR Potassium Chloride (K-Dur/Klor-Con 20meq) 20 meq AD PRN PO POTASSIUM PROTOCOL 11/14/24 00:30 12/14/24 00:29 11/17/24 08:09 20 MEQ Potassium Chloride (KCl 10% Elixir 20meq/15ml) 20 meq AD PRN PO POTASSIUM PROTOCOL 11/14/24 00:30 12/14/24 00:29 11/14/24 00:17 20 MEQ Propofol 100 ml @ 0 mls/hr AD PRN IV SEDATION 11/07/24 14:00 11/11/24 13:59 DC Sodium Bicarbonate (Sodium Bicarb 50meq 50ml Vial) 50 meq AD PRN IV OTHER[SEE DOSING INSTRUCTIONS] 11/07/24 14:00 11/10/24 13:59 DC 11/08/24 00:54 50 MEQ Sodium Chloride 250 ml @ 0 mls/hr Q0M IV 11/18/24 10:00 12/18/24 09:59 11/18/24 10:13 250 MLS/HR Sodium Chloride 500 ml @ 0 mls/hr AD IV 11/07/24 14:00 12/07/24 13:59 11/10/24 00:41 3 MLS/HR Sodium Chloride 1,000 ml @ 10 mls/hr ONCE IV 11/07/24 14:00 11/08/24 13:59 DC 11/07/24 20:11 10 MLS/HR Sodium Chloride 1,000 ml @ 100 mls/hr Q10H IV 11/06/24 12:30 11/06/24 15:29 DC Sodium Chloride (NS Flush 10ml) 10 ml Q8H PRN IVP IV LINE FLUSH 11/07/24 14:00 12/07/24 13:59 Sucralfate (Carafate) 1 gm TID PO 11/08/24 21:00 12/08/24 20:59 11/19/24 08:45 1 GM Tramadol HCl (UltRAM) 25 mg Q6H PRN PO MODERATE PAIN (4-6) 11/07/24 14:00 11/09/24 08:37 DC Tramadol HCl (UltRAM) 50 mg Q6H PRN PO SEVERE PAIN (7-10) 11/07/24 14:00 11/09/24 08:37 DC 11/08/24 23:30 50 MG Vitamin B Complex (Vitamin B-12) 1,000 mcg DAILY IM 11/07/24 09:00 11/13/24 08:59 DC 11/12/24 09:03 1,000 MCG Vitamin B Complex (Vitamin B-12) 1,000 mcg DAILY PO 11/14/24 09:00 12/14/24 08:59 11/19/24 08:46 1,000 MCG DIAGNOSTICS / RADIOLOGY: [ ] ASSESSMENT: Coronary artery disease, POA, s/p CABG 3v and redo sternotomy with redo of graft failure now s/p CABG with 4v Postop acute anemia requiring transfusion Acute kidney injury Hyperlipidemia, POA Hypothyroidism, POA Peripheral artery disease, suspected Carotid artery stenosis PLAN: Coronary artery disease, POA s/p CABG 3v and redo sternotomy with redo of graft failure now s/p CABG with 4v * Administer aspirin 325 mg p.o. now and then continue aspirin 81 mg p.o. daily * Troponin every 6 hours, serial troponin levels are 9--12-11. * Supplemental oxygen as needed to maintain SpO2 greater than 94% * Monitor for recurrence of chest pain, arrhythmias, or hemodynamic changes * Electrocardiogram was done which is normal. * A 2D Echo has been ordered due to patients history of chest pain on exertion and rest. * A cardiology consult has been placed for evaluation of CAD in patient with exertional chest pain and vascular disease. 11/04/24 * Echocardiogram was done which revealed aortic valve: trileaflet, mildly sclerotic, and opens well. * Pending Coronary CTA reports. * Lipid panels has been ordered to assess Cardiovascular risks. Results unremarkable. * In coronary CT angiography there is mixed calcified and noncalcified plaque in the proximal LAD with 80-90% stenosis. Left circumflex coronary artery: Normal caliber, nondominant and gives rise to a large OM branch. There is mixed calcified and noncalcified plaque in the mid LCx with 80-90% stenosis. * CAD-RAD of 4B. * Left heart catheterization with selective right and left coronary angiography was performed which showed critical left main disease. Severe ostial RCA stenosis. 11/06/24 * He complaints of headache 8/10 of intensity after the administration of Nitroglycerin. Tylenol has been administered. Closely monitoring the patient. * Cardiac catheterization demonstrated a very tight left main lesion and the patient is referred for surgical revascularization. * Patient is POD 11 S/P CABG, patient is being managed in the ICU per protocol. * Recent ABG shows lactic acid is 1.21. * epinephrine drip continues at 0.03 mcg/kg/min. * His impella setting is decreased to be P4. planning to further wean off. * We will continue to follow Cardiology and critical care recommendations. * He is on heparin drip and off lovenox. * Hematology saw the patient and they recommended to start folic acid, vitamin B12, ordered SPEP, UPEP, free light chains. They think that the patient might be having hemolytic anemia which could be the reason for his graft clotting after surgery. * Cardiology plan to wean him of the pressors than impella. Peripheral vascular disease, Suspected * Patient has history of exertional bilateral leg pain * Diminished peripheral pulses * A SERA has been ordered due to the patients complaint of bilateral lower extremity claudication, and numbness/tingling in bilateral lower extremities. * Clear aspirin 81 mg daily and statin 40mg * Encouraged supervised exercise therapy for claudication * Counseled on continued smoking cessation 11/04/24 Peripheral Neuropathy * Vitamin B12 has been ordered to rule out peripheral neuropathy.11/05/24 * Complained of numbness and tingling in his limbs. * Vitamin B12 level was measured which showed 173L. * Patient has been started on vitamin B12 supplement 1000 mcg for 6 days. Carotid artery stenosis * Presence of bilateral carotid bruit on exam, suspicion for significant stenosis * Carotid Duplex ultrasound has been done, awaiting reports * Risk factor modification: Smoking cessation, BP control, glycemic control. 11/04/24 * Carotid artery ultrasound showed Bilateral ICA/CCA ratio more than 4.0 suggesting more than 70% stenosis. 11/05/24 * Cardiology recommended CT/MR angiogram when stable from surgical standpoint Hyperlipidemia * Continue home statin therapy atorvastatin 40 mg * Reinforce low-cholesterol, heart healthy diet (limit saturated fats, increase fiber, fruits and vegetables) * Encouraged regular physical activity as tolerated * Monitor lipid panel * Outpatient follow up with PCP/Cardiology for long-term lipid management and cardiovascular risks reduction Supportive measures * Start patient on GI prophylaxis * DVT prophylaxis * Monitor morning labs CBC and BMP daily * He is on clear liquid diet Hypothyroidism * Continue home dose of levothyroxine at 125 mcg daily * TSH 1.33. Postop acute anemia requiring transfusion - Patient's hemoglobin on 11/18 is 9. Patient has normocytic anemia - His iron panel from 11/17 showed low iron and low percentage saturation. - As per Hematology recommendations, patient was given IV iron sucrose today. - Follow up with morning CBC. ATTESTATION BY PHYSICIAN I have seen and examined the patient. I reviewed the documentation, medical decision making, and treatment plan as noted by the resident provider above. I agree with the findings and plan of care. ALISA POLLARD MD, MUHAMMAD H MD Nov 19, 2024 13:55
[2024-11-19] MEDS: guaiFENesin-DM 200/20MG 10ML PO PRN (14:49)
--- NOTE | 2024-11-19 19:08 | PN ---
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 offers no complains. continues with impella support of P4 and marginal blood pressures. no plans for removal today by CV surgery. He is currently at in [facility]. Tolerating PO diet well and reports BM yesterday, no significan interval changes on chest XR. REVIEW OF SYSTEMS: 12 point ROS reviewed with patient. Pertinent positives mentioned above. Otherwise negative. PHYSICAL EXAM: GENERAL: alert, weak, awake oriented x 3 HEENT: EOMI, Sclera non icteric, moist mucosa NECK: Supple, no JVD, trachea midline right IJ. Subclavian Impella 5.5 LUNGS: Rhonchi to right lower lobes. No wheezes HEART: Regular rate and rhythm. Normal S1 and S2, without murmurs mid incision line tenderness. Dressing clean dry and intact. ABD: Abdomen soft, nontender. Bowel sounds present EXT: No clubbing cyanosis or edema. Left femoral sheath. NEURO: Alert and oriented to person, follows commands Vital Signs (last 8hr) Date Time Temp Pulse Resp B/P (MAP) Pulse Ox O2 Delivery O2 Flow Rate FiO2 11/19/24 18:46 77 18 11/19/24 18:45 77 20 N/A Room Air 21 11/19/24 17:30 77 20 94 148/69 (95) 11/19/24 17:15 74 22 93 126/81 (96) 11/19/24 17:00 74 22 93 123/81 (95) 11/19/24 16:45 75 24 94 139/78 (98) 11/19/24 16:30 74 22 93 142/73 (96) 11/19/24 16:15 75 24 95 130/78 (95) 11/19/24 16:00 94 Room Air* 0 21 11/19/24 16:00 98.4 11/19/24 16:00 98.4 78 29 94 126/58 (80) 11/19/24 15:30 77 14 94 104/62 (76) 11/19/24 15:15 77 23 95 114/57 (76) 11/19/24 15:00 79 24 94 109/70 (83) 11/19/24 14:45 78 20 94 120/67 (84) 11/19/24 14:30 85 22 97 127/87 (100) 11/19/24 14:15 84 26 130/51 (77) 11/19/24 14:00 85 19 93 108/55 (72) 11/19/24 13:45 85 21 93 106/60 (75) 11/19/24 13:30 89 20 93 96/60 (72) 11/19/24 13:15 83 27 93 96/62 (73) 11/19/24 13:00 84 16 93 107/54 (71) 11/19/24 12:45 83 22 93 103/67 (79) 11/19/24 12:30 83 26 94 111/65 (80) 11/19/24 12:15 84 23 94 111/69 (83) 11/19/24 12:00 94 Room Air* 0 21 11/19/24 12:00 98.1 11/19/24 12:00 98.1 91 32 96 144/82 (102) 11/19/24 11:45 95 20 98 126/70 (88) 11/19/24 11:30 95 20 98 126/77 (93) 11/19/24 11:15 87 21 96 110/72 (85) 11/19/24 11:07 89 20 N/A Room Air 21 11/19/24 11:07 89 18 11/19/24 11:00 87 21 96 110/75 (87) LABS: Hematology Labs: Test 11/19/24 03:46 Range/Units White Blood Count 12.4 H 4.8-10.8 K/uL Red Blood Count 2.86 L 4.50-6.20 MIL/uL Hemoglobin 9.0 L 14.0-18.0 g/dL Hematocrit 28.0 L 42-54 % Mean Corpuscular Volume 97.9 79-99 fL Mean Corpuscular Hemoglobin 31.5 27.0-33.0 pg Mean Corpuscular Hemoglobin Concent 32.1 32.0-36.0 g/dL Red Cell Distribution Width 13.7 11.0-15.5 % Platelet Count 487 H 130-400 K/uL Mean Platelet Volume 9.6 7.5-10.5 fL Nucleated Red Blood Cells 0.0 0.0-0.19 % Chemistry Labs: Test 11/19/24 03:46 Range/Units Sodium Level 139 136-145 mmol/L Potassium Level 3.8 3.5-5.1 mmol/L Chloride Level 105 101-111 mmol/L Carbon Dioxide Level 25 21-32 mmol/L Blood Urea Nitrogen 9 7-18 mg/dL Creatinine 1.0 0.5-1.3 mg/dL Glomerular Filtration Rate Calc 82 >90 mL/min Random Glucose 125 H 70-105 mg/dL Total Calcium 7.9 L 8.5-10.1 mg/dL Magnesium Level 2.30 1.80-2.40 mg/dL Procalcitonin < 0.05 L 0.05-0.5 ng/mL Thyroid Stimulating Hormone (TSH) 7.13 #H 0.36-3.74 uIU/mL Coagulation Labs: Test 11/19/24 17:46 Range/Units Activated Partial Thromboplast Time 66.6 #H 26.3-35.5 [facility] / RADIOLOGY RESULTS: [place] [address] [place] [id number] IMAGING REPORT Signed PATIENT: CLARE KERR MR#: [id number] : 1955 SEX: M AGE: 69 LOCATION: [facility] ORDER 2300 STATUS: ADM IN REPORT#: [id number] SERVICE 0600 REASON: pp ORDERING PHYSICIAN: SNOW MATAMOROS PAC PROCEDURE: CXR1VW - CHEST 1VW EXAM: CR Chest, single view. CLINICAL HISTORY: PP COMPARISON: Prior chest radiograph dated November 18, 2024. FINDINGS: Right-sided central venous catheter with tip in the superior vena cava. Poststernotomy status. Borderline cardiomegaly. Subsegmental atelectasis in the right lower lobe. No evidence of pleural effusion or pneumothorax. No acute osseous abnormality. IMPRESSION: Right-sided central venous catheter with tip in the superior vena cava. Poststernotomy status. Borderline cardiomegaly. Subsegmental atelectasis in the right lower lobe. No evidence of pleural effusion or pneumothorax. Compared to the prior study, there is no significant interval change. /[place] DICTATED BY: MOLLY PATTERSON Jr., MD DATE: 11/19/24807 ELECTRONICALLY SIGNED BY: MOLLY PATTERSON Jr., MD DATE: 11/19/24807 PLAN Following Cardiothoracic Surgeons postop protocol Neurovascular checks per protocol Weaning Impella per CTS I&Os Cardiac diet Telemetry PT/OT Continue bowel regimen One time dose 250 mL of NS bolus. Heme-Onc recommendations Continue IS Q 1 hour while awake. TSH in a.m. NEURO: Minimize central acting medications as possible. Fall Precautions. Well lighted room through the day and minimize interruptions through the night to prevent acute delirium. PULMONARY: Supplemental 02 as needed Titrate Fio2 to keep Spo2 > or = 90% DuoNebs and CPT as needed IS hourly while awake for pulmonary hygiene Out of bed to chair as tolerated VAP Bundle Bipap 12/6 fio2 50% RT to titrate FiO2 as needed to maintain O2 above 92% CARDIOVASCULAR: Follow hemodynamics. Titrate vasopressor to keep MAP >65 or systolic blood pressure >95mmHg DIPS: Epi LINES: Central venous catheter right IJ Impella 5.5 Chest tube A line Daniel catheter GI & NUTRITION: NPO for now Aspirations precautions Prokinetic agents and laxatives as needed KIDNEYS & ELECTROLYTES: Strict monitoring of intake and output Daily weights Avoid nephrotoxic agents Monitor electrolytes and replace as needed Goal urine output of 30mL/hr or 0.5mL/kg/hr Urine output 2 L in last 24 hours Chest tube drained 400 mL to lateral side Mediastinal drain 90 mL with I&O balance positive 230 mL ENDOCRINE: Maintain blood glucose between 100-180 at all times. Insulin sliding scale for blood glucose management INFECTIOUS DISEASE: Trend temperature. Nichols-culture if febrile. Micro: [ ] MRSA negative Antibiotics: [ ] Ancef HEMATOLOGY & COAGULATION: Monitor H&H. Keep Hgb > 7 Transfuse 1 unit of PRBC for Hgb < 7 Transfuse 1 pack of platelets of platelets < 20, 000 Watch for any signs and symptoms of bleeding SKIN: Pressure ulcer prevention per facility protocol Rehab: PT/OT Prophylaxis: GI: [ Protonix 40 mg IV b.i.d.] DVT: Heparin per CV Code Status: Full Resuscitation Disposition: [ TBD C Total critical care time 45 minutes, patient remains critical requiring pressors, Impella support. Time excludes any educational time or procedures performed ATTESTATION BY PHYSICIAN I attest that I reviewed and discussed the case with the Physician Spray Drier as well as agree with the Physician Spray Drier's findings, plans of care, and documentation above. Yung Mead MD, [facility] Nov 19, 2024 19:08
[2024-11-20] VITALS (103 sets, daily range): BP systolic 68–137; BP diastolic 33–86; PULSE 69–94; RESP 11–28; TEMP 98–99.3; O2SAT 93–97
[2024-11-20 04:44] LABS: NUCLEATED RED BLOOD CELLS 0.2 % (0.0-0.19); PLATELET COUNT (AUTO) 586.0 K/uL (130-400); RED BLOOD CELL COUNT(AUTO) 2.86 MIL/uL (4.50-6.20); RED CELL DISTRIBUTION WIDTH 14.0 % (11.0-15.5); WHITE BLOOD COUNT (AUTO) 11.1 K/uL (4.8-10.8)
[2024-11-20 05:00] LABS: CREATININE 1.1 mg/dL (0.5-1.3); GLOMERULAR FILTR. RATE CALC 73.0 mL/min (>90); GLUCOSE,RANDOM 130.0 mg/dL (70-105); SODIUM SERUM 138.0 mmol/L (136-145); UREA NITROGEN, BLOOD 9.0 mg/dL (7-18)
--- NOTE | 2024-11-20 08:28 | PN ---
[facility] PROGRESS NOTE Date Patient Seen: Nov 20, 2024 Time of Visit: 08:28 Supervising Physician: YUNG CONTE MD Primary Care Physician: Self Referral Outpatient Specialists: [ ] Inpatient Consults: PEG, Dr Jacobo, Dr Wellington , Dr Meza PROBLEM LIST: Cardiogenic shock SCAI stage C requiring MCS with IMpella 5.5 MvCAD s/p CABG x 3+1 w/ redo on 11/07/24 Postop acute anemia requiring transfusion ELSA Hyperlipidemia Sclerotic nodule on the non coronary cusp on 2D echo Normal ventricular diastolic function with LVEF of 60-65% on 2D echo 11/05/24 Former smoker Graves disease Obesity INTERVAL HISTORY: Pt is awake alert and oriented x3. epi at 0 0.04 mcg/kg per minute. Patient den ies any chest pain palpitations or shortness for breath. Continues on Impella MCS at P4. LVEDP 24. Blood pressures are marginal. Urine output 2.7 L in last 24 hours with a balance of-1.4 L. Chest tube drained minimal to left anterior 80 mL and mediastinal 20 mL. CBC similar to yesterday with white count trending down 11.1 hemoglobin 9 hematocrit 27.8 platelet count of [id number]. Chemistry unremarkable kidneys are doing well creatinine 1.1 GFR of 73 glucose 130 mg/dL with a in goals. Chest x-ray shows cardiomegaly with a median sternotomy with cardiac revascularization procedure. Support lines in satisfactory position. No evidence of airspace consolidation or pulmonary venous congestion. We will continue follow CV surgery recommendations. REVIEW OF SYSTEMS: 12 point ROS reviewed with patient. Pertinent positives mentioned above. Otherwise negative. PHYSICAL EXAM: GENERAL: alert, weak, awake oriented x 3 HEENT: EOMI, Sclera non icteric, moist mucosa NECK: Supple, no JVD, trachea midline right IJ. Subclavian Impella 5.5 LUNGS: Rhonchi to right lower lobes. No wheezes HEART: Regular rate and rhythm. Normal S1 and S2, without murmurs mid incision line tenderness. Dressing clean dry and intact. ABD: Abdomen soft, nontender. Bowel sounds present EXT: No clubbing cyanosis or edema. Left femoral sheath. NEURO: Alert and oriented to person, follows commands Vital Signs (last 8hr) Date Time Temp Pulse Resp B/P (MAP) Pulse Ox O2 Delivery O2 Flow Rate FiO2 11/20/24 06:14 78 20 N/A Room Air 21 11/20/24 06:14 74 18 11/20/24 06:10 77 17 95 101/56 (71) 11/20/24 05:55 76 17 96 101/69 (80) 11/20/24 05:40 77 20 92 89/57 (68) 11/20/24 05:25 75 16 93 97/62 (74) 11/20/24 05:16 75 16 94 97/55 (69) 11/20/24 04:55 75 15 93 92/39 (56) 11/20/24 04:40 85 18 95 104/66 (79) 11/20/24 04:32 85 20 96 103/63 (76) 11/20/24 04:10 76 17 94 104/57 (73) 11/20/24 04:00 99.1 11/20/24 04:00 94 Room Air* 0 21 11/20/24 03:55 76 18 92 83/48 (60) 11/20/24 03:40 78 23 92 81/46 (58) 11/20/24 03:25 82 24 94 88/50 (63) 11/20/24 03:10 78 21 98 119/55 (76) 11/20/24 02:55 72 19 95 117/60 (79) 11/20/24 02:40 81 24 96 98/61 (73) 11/20/24 02:31 79 20 96 100/58 (72) 11/20/24 02:26 75 23 98 68/39 (49) 11/20/24 02:10 75 17 93 86/52 (63) 11/20/24 01:55 74 21 93 85/52 (63) 11/20/24 01:40 75 19 93 82/48 (59) 11/20/24 01:25 75 20 94 81/47 (58) 11/20/24 01:10 78 20 94 87/57 (67) 11/20/24 00:55 72 18 96 125/58 (80) 11/20/24 00:40 74 20 95 93/58 (70) LABS: Hematology Labs: Test 11/20/24 04:28 Range/Units White Blood Count 11.1 H 4.8-10.8 K/uL Red Blood Count 2.86 L 4.50-6.20 MIL/uL Hemoglobin 9.0 L 14.0-18.0 g/dL Hematocrit 27.8 L 42-54 % Mean Corpuscular Volume 97.2 79-99 fL Mean Corpuscular Hemoglobin 31.5 27.0-33.0 pg Mean Corpuscular Hemoglobin Concent 32.4 32.0-36.0 g/dL Red Cell Distribution Width 14.0 11.0-15.5 % Platelet Count 586 H 130-400 K/uL Mean Platelet Volume 9.4 7.5-10.5 fL Nucleated Red Blood Cells 0.2 H 0.0-0.19 % Chemistry Labs: Test 11/20/24 04:28 11/19/24 03:46 Range/Units Sodium Level 138 136-145 mmol/L Potassium Level 3.7 3.5-5.1 mmol/L Chloride Level 103 101-111 mmol/L Carbon Dioxide Level 26 21-32 mmol/L Blood Urea Nitrogen 9 7-18 mg/dL Creatinine 1.1 0.5-1.3 mg/dL Glomerular Filtration Rate Calc 73 >90 mL/min Random Glucose 130 H 70-105 mg/dL Total Calcium 7.8 L 8.5-10.1 mg/dL Magnesium Level 2.30 1.80-2.40 mg/dL Procalcitonin < 0.05 L 0.05-0.5 ng/mL Thyroid Stimulating Hormone (TSH) 7.13 #H 0.36-3.74 uIU/mL Coagulation Labs: Test 11/20/24 00:45 Range/Units Activated Partial Thromboplast Time 70.4 H 26.3-35.5 [facility] / RADIOLOGY RESULTS: [ ] [address] [address] IMAGING REPORT Signed PATIENT: CLARE KERR MR#: [id number] : 1955 SEX: M AGE: 69 LOCATION: [facility] ORDER 230 STATUS: ADM IN REPORT#: [id number] SERVICE 0600 REASON: pp ORDERING PHYSICIAN: SNOW MATAMOROS PAC PROCEDURE: CXR1VW - CHEST 1VW CHEST 1VW REASON: pp COMPARISON: Prior chest radiograph from 11/19/2024 is available. FINDINGS: Single view of the chest was obtained. Lungs are clear. There is cardiomegaly with median sternotomy with cardiac revascularization procedure.. There is no pulmonary vascular congestion. There is a right internal jugular vascular sheath in place. On the left side there is a left-sided chest tube in place. There is also left ventricular assisted device in place.. Mediastinum and bony thorax appear unremarkable. IMPRESSION: 1. Cardiomegaly with median sternotomy with cardiac revascularization procedure 2. Support lines in satisfactory position 3. No evidence of airspace consolidation or pulmonary venous congestion. DICTATED BY: MARCO ANTONIO FUENTES MD DATE: 11/20/24 112 ELECTRONICALLY SIGNED BY: MARCO ANTONIO FUENTES MD DATE: 11/20/24 1132 PLAN Following Cardiothoracic Surgeons postop protocol Neurovascular checks per protocol Weaning Impella per CTS I&Os Cardiac diet Telemetry PT/OT Continue bowel regimen Heme-Onc recommendations Continue IS Q 1 hour while awake. NEURO: Minimize central acting medications as possible. Fall Precautions. Well lighted room through the day and minimize interruptions through the night to prevent acute delirium. PULMONARY: Supplemental 02 as needed Titrate Fio2 to keep Spo2 > or = 90% DuoNebs and CPT as needed IS hourly while awake for pulmonary hygiene Out of bed to chair as tolerated VAP Bundle Bipap 12/6 fio2 50% RT to titrate FiO2 as needed to maintain O2 above 92% CARDIOVASCULAR: Follow hemodynamics. Titrate vasopressor to keep MAP >65 or systolic blood pressure >95mmHg DIPS: Epi LINES: Central venous catheter right IJ Impella 5.5 Chest tube A line Daniel catheter GI & NUTRITION: NPO for now Aspirations precautions Prokinetic agents and laxatives as needed KIDNEYS & ELECTROLYTES: Strict monitoring of intake and output Daily weights Avoid nephrotoxic agents Monitor electrolytes and replace as needed Goal urine output of 30mL/hr or 0.5mL/kg/hr Urine output 2 L in last 24 hours Chest tube drained 400 mL to lateral side Mediastinal drain 90 mL with I&O balance positive 230 mL ENDOCRINE: Maintain blood glucose between 100-180 at all times. Insulin sliding scale for blood glucose management INFECTIOUS DISEASE: Trend temperature. Nichols-culture if febrile. Micro: [ ] MRSA negative Antibiotics: [ ] Ancef HEMATOLOGY & COAGULATION: Monitor H&H. Keep Hgb > 7 Transfuse 1 unit of PRBC for Hgb < 7 Transfuse 1 pack of platelets of platelets < 20, 000 Watch for any signs and symptoms of bleeding SKIN: Pressure ulcer prevention per facility protocol Rehab: PT/OT Prophylaxis: GI: [ Protonix 40 mg IV b.i.d.] DVT: Heparin per CV Code Status: Full Resuscitation Disposition: [ TBD C Total critical care time 45 minutes, patient remains critical requiring pressors, Impella support. Time excludes any educational time or procedures performed ATTESTATION BY PHYSICIAN I attest that I reviewed and discussed the case with the Physician Insurance Account Executive as well as agree with the Physician Insurance Account Executive's findings, plans of care, and documentation above. Yung Mead MD, [facility] Nov 20, 2024 08:28
--- NOTE | 2024-11-20 08:29 | PN ---
[facility] CARDIOLOGY PROGRESS NOTE Date Patient Seen: Nov 20, 2024 Time of Visit: 08:28 Interval History: P4 Physical Examination: GENERAL: No acute distress. HEAD: Normal with no signs of head trauma. EYES: PERRLA, EOMI, conjunctiva and sclera normal. ENT: Hearing grossly intact, normal oropharynx. NECK: Supple without JVD. There is no tenderness, lymphadenopathy, or masses. No thyromegaly. Normal carotid upstrokes without bruits. LUNGS: Clear breath sounds bilaterally. No wheezes, or rhonchi. HEART: Normal rate and rhythm. Normal S1 and S2 without murmurs, gallop or rub. VASC: Peripheral pulses +2 bilaterally. ABD: Bowel sounds normal, soft, nontender, no masses, no organomegaly. No audible bruits. : Not examined LYMPH: No lymphadenopathy noted. EXT: No clubbing, cyanosis or edema. SKIN: No rashes or lesions noted. NEURO: Awake, alert, and oriented x3. No focal sensory or strength deficits noted. Laboratory: [ ] Hematology Labs: Test 11/20/24 04:28 Range/Units White Blood Count 11.1 H 4.8-10.8 K/uL Red Blood Count 2.86 L 4.50-6.20 MIL/uL Hemoglobin 9.0 L 14.0-18.0 g/dL Hematocrit 27.8 L 42-54 % Mean Corpuscular Volume 97.2 79-99 fL Mean Corpuscular Hemoglobin 31.5 27.0-33.0 pg Mean Corpuscular Hemoglobin Concent 32.4 32.0-36.0 g/dL Red Cell Distribution Width 14.0 11.0-15.5 % Platelet Count 586 H 130-400 K/uL Mean Platelet Volume 9.4 7.5-10.5 fL Nucleated Red Blood Cells 0.2 H 0.0-0.19 % Chemistry Labs: Test 11/20/24 04:28 11/19/24 03:46 Range/Units Sodium Level 138 136-145 mmol/L Potassium Level 3.7 3.5-5.1 mmol/L Chloride Level 103 101-111 mmol/L Carbon Dioxide Level 26 21-32 mmol/L Blood Urea Nitrogen 9 7-18 mg/dL Creatinine 1.1 0.5-1.3 mg/dL Glomerular Filtration Rate Calc 73 >90 mL/min Random Glucose 130 H 70-105 mg/dL Total Calcium 7.8 L 8.5-10.1 mg/dL Magnesium Level 2.30 1.80-2.40 mg/dL Procalcitonin < 0.05 L 0.05-0.5 ng/mL Thyroid Stimulating Hormone (TSH) 7.13 #H 0.36-3.74 uIU/mL Coagulation Labs: Test 11/20/24 00:45 Range/Units Activated Partial Thromboplast Time 70.4 H 26.3-35.5 SEC Diagnostics / Radiology: [Copy/Paste Echos/Imaging Report here] Impression and Plan: [Unstable angina pectoris Abnormal CT coronary angiogram 11/05/2024 demonstrating a CAD-RADs score of 4B mixed calcified and noncalcified plaque in the left main with 50% stenosis, 80- 90% stenosis in the proximal LAD and 80-90% stenosis in mid left circumflex Critical left main and ostial RCA stenosis by cardiac catheterization 11/06/2024 S/p CABG with initial graft failure converted to Impella supported redo (CHILD- LAD, SVG-OM2, SVG-RCA and SVG-LAD) on 11/07/[address] Meza LVEF of 60-65% by 2D echocardiogram 11/05/2024 Mild ischemic cardiomyopathy with an LVEF of 40-45% by 2D echocardiogram 11/12/2024 Bilateral ICA disease with >70% stenosis by Doppler on 11/04/2024 Transaminitis, improved Thrombocytopenia, improved Hyperlipidemia CAD s/p PTCA to unknown vessel approximately 30 years ago Ex-smoker of 1 PPD with cessation 2 months ago Graves disease S/p CABG with initial graft failure converted to Impella supported redo (CHILD- LAD, SVG-OM2, SVG-RCA and SVG-LAD) on 11/07/[address] Derrick Patel at [facility] -The patient is maintained on Epinephrine and Heparin infusions -The patient is not a candidate for beta-betty therapy until weaned off of Epinephrine and if hemodynamically stable. Continue Midodrine 15mg TID. Obtain manual BP cuff. Arterial lines have been exchanged multiple times and do not evaluate. -Continue Aspirin 81 mg daily, Plavix 75 mg daily, Atorvastatin 40 mg q.h.s., and Lasix 20 mg p.o. every 12 hours -Continue management per Cardiothoracic surgery -PT/OT Carotid artery disease Carotid US 11/05: Mild intimal thickening in the bilateral carotid arteries and their branches. Bilateral ICA/CCA ratio is more than 4.0 suggesting more than 70% stenosis. Raised velocities in the bilateral external and internal carotid arteries. -Recommend CT/MR angiogram when stable from surgical standpoint -Continue Aspirin 81 mg daily and Atorvastatin 40 mg q.h.s. Thrombocytopenia, improved Platelets today of 398K/uL -Hematology ordered SPEP, UPEP and free light chain laboratories. If there is monoclonal protein, plans for a bone marrow biopsy. 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 YESICA MARTINEZ MD Nov 20, 2024 08:28
[2024-11-20 08:45] LABS: ASPARTATE AMINOTRANSFERASE 33.0 U/L (10-37); TOTAL PROTEIN, SERUM 6.6 g/dL (6.0-8.3)
--- NOTE | 2024-11-20 11:32 | HMCIMG ---
CHEST 1VW REASON: pp COMPARISON: Prior chest radiograph from 11/19/2024 is available. FINDINGS: Single view of the chest was obtained. Lungs are clear. There is cardiomegaly with median sternotomy with cardiac revascularization procedure.. There is no pulmonary vascular congestion. There is a right internal jugular vascular sheath in place. On the left side there is a left-sided chest tube in place. There is also left ventricular assisted device in place.. Mediastinum and bony thorax appear unremarkable. IMPRESSION: 1. Cardiomegaly with median sternotomy with cardiac revascularization procedure 2. Support lines in satisfactory position 3. No evidence of airspace consolidation or pulmonary venous congestion.
--- NOTE | 2024-11-20 15:57 | PN ---
[facility] PROGRESS NOTE Date of Service: Nov 20, 2024 Time of Service: 8:30 SUBJECTIVE: Mr. Valadez a 68-year-old male that was seen and examined today on 11/03/2024. Patient reports that he came to the emergency department with a chief complaint of chest pain. Onset was two or three years ago. He had similar repeated episodes months back which resolved on its own. Today's episode began at 11:00 a.m. Location is midsternal. Duration is on and off. Character is described as "neck someone is pushing a knuckle into the center of my chest. The chest pain did not radiate to shoulder, neck or jaw. "There was no alleviating factors. There was no aggravating factors. Patient reports that symptoms seemingly resolve on their own. He denies nausea, vomiting, fever and any other associated symptoms. Patient denies any associated shortness of breath. Patient has a past medical history of hyperlipidemia and Graves disease. He has been taking atorvastatin and Synthroid as his home medications. Today in the emergency department WBC 5.8, hemoglobin 12.9 platelets 197. His chemistries were within normal limits sodium 140, potassium 4.2, blood urea nitrogen 15 and creatinine 1.0. His electrocardiogram showed normal sinus rhythm. Patient will be admitted for further evaluation and related recommendations in Med-Surg. 11/04/24 Patient was evaluated at the bedside in ED-09. He reports that he is having chest pain that comes and goes. The patient reports having 2 episodes of chest pain in the last hour. He denies associated symptoms such as shortness of breath, palpitation, diaphoresis, dizziness, nausea or syncope. He does however complain of muscle pain in his lower limbs described as a dull aching discomfort that begins in the hip region that is worsened with movement. The patient complains of tingling and numbness in his feet bilaterally. No fever, chills or recent infection reported. Appetite and oral intake are normal. No other acute complaints at this time. On physical exam, a systolic murmur was auscultated over the aortic area. Bilateral carotid bruits are present. Lower extremities are cool to the touch with diminished pedal pulses. Patient reports bilateral leg muscle pain with exertion (suggestive of claudication), and chronic numbness and tingling in the feet. Patient reports recently quitting smoking tobacco for 2 months. He had a 1 pack a day smoking history since 1968. 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 The patient says his chest pain has been ongoing for the past 3 years, and that it gets worse with exertion and at rest. 11/05/24 Patient was evaluated at the bedside room 231. He was hemodynamically stable. Hi symptoms has improved significantly. He doesn't complain of chest pain, shortness of breath and any other associated symptoms. Echocardiogram was done which revealed aortic valve: trileaflet, mildly sclerotic, and opens well. Carotid artery ultrasound showed Bilateral ICA/CCA ratio more than 4.0 suggesting more than 70% stenosis. 11/06/24 Patient was evaluated at the bedside room 231. He was hemodynamically stable. Hi symptoms has improved significantly. He doesn't complain of chest pain, shortness of breath and any other associated symptoms. In coronary CT angiography there is mixed calcified and noncalcified plaque in the proximal LAD with 80-90% stenosis. Left circumflex coronary artery: Normal caliber, nondominant and gives rise to a large OM branch. There is mixed calcified and noncalcified plaque in the mid LCx with 80-90% stenosis. CAD-RAD of 4B. Left heart catheterization with selective right and left coronary angiography was performed which showed critical left main disease. 11/07/24 Patient was evaluated at the bedside room 231. He was hemodynamically stable. He doesn't complain of chest pain, shortness of breath and any other associated symptoms. He complaints of headache 8/10 of intensity after the administration of Nitroglycerin. Cardiac catheterization demonstrated a very tight left main lesion and the patient is referred for surgical revascularization. As per Dr Meza: Surgery is planned for today. 11/08/24: Patient was seen and evaluated this morning at bedside. The patient is POD 1 s/p CABG. Patient is currently being managed in the ICU. The patients most recent ABG shows a pH of 7.43, ABG PCO2 47, ABG PO2 77.9, ABG HCO3 30.8. Recent ABG shows improving lactic acid, from 8 to 3.85. The patients chemistry reveals a sodium level 157, potassium level 3.4, creatinine 1.9, BUN 19, GFR 38, phosphorous 2.2. Liver enzymes are trending up, with an ALT level at 325 and an AST level at 869. The patients home medication of Synthroid has been restarted. Chest x-ray ordered today, results pending. We will continue to follow recommendations from critical care team, and cardiology. 11/09/2024: Patient is seen and evaluated in the room 213. The patient is POD 2 s/p CABG. Patient is currently being managed in the ICU. He is complaining of pain. His vitals are in the normal range. His Hb is 11.1, WBC is 19.1, Plt is 115, sodium is 154, chloride is 113, glucose is 122. His recent ABG shows that pH is 7.472, pO2 is 80.1, bicarb is 30.4, Hb is 11.4, lactic acid is 1.63. His chest X-ray on 11/08 showed improved aeration within the left perihilar and left basilar regions. As per nurse he is having intervention confusion, stopped lidocaine and they also weaning on pressors norepinephrine and epinephrine. The drain output from left anterior chest is 20ml, mediastinal lateral is 160ml, mediastinal mediastinal is 300ml, right anterior chest is 160 ml. We will continue to follow recommendations from critical care team, and cardiology. 11/10/2024: Patient was seen and evaluated this morning at bedside. The patient is POD 3 s/p CABG. Patient is currently being managed in the ICU. He is not having any symptoms today. His vitals are in the normal range. His labs are normal except for Hb is 10.1, WBC is 14.7, plt is 85, sodium is 147, AST is 156, ALT is 95, APTT is 25.5. ABG shows that his pH is 7.4, lactate is 1.22, bicarb is 31. The drain output from left anterior chest is 170 ml, mediastinal mediastinal is 130ml. We will continue to follow recommendations from critical care team, and cardiology. 11/11/2024: Patient was seen and evaluated this morning at bedside. The patient is POD 4 s/p CABG. He is not having any symptoms today. His vitals are in the normal range. His labs are normal except for hemoglobin is 9.7, WBC is 11.7, platelet is 106, glucose is 107, AST is 87, ALT is 62. ABG shows pH is 7.468, lactic acid is 1.03. We will continue to follow recommendations from critical care team, and cardiology. 11/12/2024: Patient was seen and evaluated in the room 218. The patient is POD 5 s/p CABG. He is having dizziness and ache in the left shoulder. His vitals are in the normal range. His labs are normal except for hemoglobin 9.6, platelets is 94, AST 75. ABG shows pH 7.487, lactic acid 1.2. Currently he is not on any pressors. Cardiovascular surgery tried to wean Impella. They decreased impella setting to P4 but his blood pressure is low so they went back to P5. Cardiovascular surgery also increased his midodrine dose to 15mg. His chest X- ray showed mild pulmonary vascular congestion. He had a bowel movement and good urine output. He is using incentive spirometry well. We will continue to follow recommendations from the critical Care team and Cardiology. 11/13/2024: Patient was seen and evaluated in the room 218. The patient is POD 6 s/p CABG. He is having dizziness and generalized ache. His vitals are in the normal range. His labs are normal except for Hb is 8.9, calcium is 7.4, glucose is 140. His chest x-ray showed that mild borderline cardiomegaly with median sternotomy with cardiac and aspiration procedure, support lines in satisfactory position, no evidence of airspace consolidation or pulmonary venous congestion. He is restarted on norepinephrine and epinephrine drip and impella at P5 as he is hypotensive and has bradycardia. The nurse told me that she will consult anesthesia for changing the arterial line as his line is not working. He is on heparin drip and off of lovenox. The drain output from left anterior chest is 260 ml, mediastinal mediastinal is 60ml. Hematology was consulted as he is in a hypercoagulable state. 11/14/2024: Patient was seen and evaluated in the room 218. The patient is POD 7 s/p CABG. His vital signs are in the normal range except for blood pressure is 88/64. His labs are normal except for hemoglobin is 8.8, APTT is 62.4, glucose is 133, calcium is 7.5, AST is 61. Chest X-ray showed mild cardiomegaly with median sternotomy with cardiac revascularization procedure, support lines are in satisfactory position. His impella is increased to P7 as he is hypotensive and bradycardic. He is on epinephrine. The drain output from left anterior chest is 80ml and from mediastinal mediastinal is 20ml. Hematology saw the patient and they recommended to start folic acid, vitamin B12, ordered SPEP, UPEP, free light chains. They think that the patient might be having hemolytic anemia which could be the reason for his graft clotting after surgery. 11/15/2024: He was evaluated at the bedside this morning. The patient is POD 8 s/p CABG. He is on Impella support with blood pressure 89/64 with map 72. Remarkable lab is for hemoglobin 9.2. Chest x-ray revealed mildly improved right lower lobe airspace opacity with stable cardiac support device and median sternotomy. His MPOA is encouraged to P8 and weaned off the pressors. Hematology recommending Tatiana test to rule out autoimmune hemolytic anemia. Hematology, CT surgery, critical care and cardiology on the board. Rest of the plan as discussed below. 11/16/2024: He was evaluated at the bedside this morning. The patient is POD 9 s/p CABG. Impella support has been weaned to P5 today. As per Dr. Khan, epi will be turned on at 0.03 mcg/kg/min and Impella performance level will be decreased to p4 tomorrow morning. Today, patient's BP is at 102/62, 79bpm and he is on 3L O2 nasal cannula. He is pending direct tatiana test, SPEP, UPEP and Free Light Chain assay as per hematology. His Hb from today is 8.9. Chest Tube drainage is at 201 ml. Hematology, CT surgery, critical care and cardiology on the board. 11/17/2024: He was evaluated at the bedside this morning. The patient is POD 10 s/p CABG. Impella support has been weaned to P4 today. Patient is currently on epinephrine 0.03 mcg/kg/minute as per Dr. Khan. Patient is receiving Lasix for diuresis and her urine output in the past 24 hours has been for 4050 mL. Mediastinal mediastinal chest tube drainage is 40 mL. Left anterior chest tube drainage is 104 mL. Hematology, CT surgery, critical care and cardiology on the board. 11/18/2024: He was evaluated at the bedside this morning. The patient is POD 11 s/p CABG. Impella support continues on P4 today. Plan is to wean off further tomorrow. Patient is currently on epinephrine 0.05 mcg/kg per minute. His blood pressure is running low, 88/48. Patient is receiving Lasix for diuresis and his urine output in the past 24 hours has been for 3400 mL. Mediastinal mediastinal chest tube drainage is 60 mL. Left anterior chest tube drainage is 140 mL. Hematology, CT surgery, critical care and cardiology on the board. As per Hematology recommendations, IV iron sucrose was ordered since iron panel showed low iron, and low percentage saturation. 11/19/2024: Patient was seen and evaluated at the bedside this morning. The patient is POD 12 s/p CABG. Impella support continues on P4 today and there is a plan to wean it off further, awaiting cardiothoracic surgery recommendations. Patient is currently maintained on epinephrine 0.03 mcg/kg per minute. His blood pressure is still running low, 92/44. He passed stool twice yesterday, after 7 days of constipation. Hematology, CT surgery, critical care and cardiology on the board. 11/20/2024: Patient was seen and evaluated at bedside this morning. He continues on P4 support. He is vitally stable with BP 101/56. WBCs are trending down from 12.4 K to 11.1 K. His TSH was elevated, 7.13. Free T3 test showed 1.64. We will continue to follow recommendations from Cardiothoracic surgery, Cardiology, and critical Care teams. REVIEW OF SYSTEMS CONSTITUTIONAL: Pain in his left shoulder No fever, chills, or night sweats. NEUROLOGICAL: No headache no sensory and motor deficit. CARDIOVASCULAR: Dizziness Denies any exertional angina, dyspnea on exertion, palpitations. PULMONARY: Denies any shortness of breath, cough, phlegm/sputum, hemoptysis, pleuritic chest pain. GASTROINTESTINAL: Constipation. Denies nausea, vomiting. Denies pain, tenderness around the abdomen. GENITOURINARY: Denies frequency, urgency, nocturia, hematuria or incontinence. PHYSICAL EXAM GENERAL APPEARANCE: The patient is alert, awake and oriented and bedbound. NEUROLOGICAL: No sensory and motor deficits. CHEST: left anterior chest , mediastinal mediastinal drains are present. Dressing is clean Normal chest expansion. LUNGS: Normal vesicular breath sound. Absence of any rales, rhonchi or any wheezing. CARDIOVASCULAR: Systolic murmur heard over aortic area. Bilateral carotid bruits heard. No JVD. ABDOMEN: Soft nontender, and nondistended. There is no rebound, voluntary guarding, or rigidity. No abdominal bruit heard. GENITOURINARY: No suprapubic tenderness. No costovertebral angle tenderness. EXTREMITIES: Limbs are non-edematous. Vital Signs (last 8hr) Date Time Temp Pulse Resp B/P (MAP) Pulse Ox O2 Delivery O2 Flow Rate FiO2 11/20/24 14:45 77 19 97 91/61 (71) 11/20/24 14:30 81 20 98 106/68 (81) 11/20/24 14:15 78 20 97 113/83 (93) 11/20/24 14:00 83 20 97 108/68 (81) 11/20/24 13:45 86 18 99 114/83 (93) 11/20/24 13:15 88 20 113/73 (86) 96 11/20/24 13:10 92 20 127/83 (98) 97 11/20/24 13:00 90 20 97 113/73 (86) 11/20/24 12:45 88 20 124/75 (91) 97 11/20/24 12:30 87 20 114/46 (68) 97 11/20/24 12:15 88 20 124/86 (99) 95 11/20/24 12:04 98.6 11/20/24 12:00 90 20 97 121/45 (70) 11/20/24 12:00 94 Room Air* 0 21 11/20/24 11:45 90 17 133/71 (91) 96 11/20/24 11:30 88 20 137/82 (100) 96 11/20/24 11:22 88 18 11/20/24 11:15 90 20 123/81 (95) 97 11/20/24 11:00 86 20 112/76 (88) 95 11/20/24 10:55 88 20 128/76 (93) 95 11/20/24 10:45 89 20 111/70 (84) 98 11/20/24 10:30 93 20 106/38 (60) 98 11/20/24 10:15 86 20 129/83 (98) 97 11/20/24 09:45 94 20 124/79 (94) 98 11/20/24 09:30 78 20 93 94/51 (65) 11/20/24 09:15 80 20 97 91/54 (66) 11/20/24 09:00 82 20 97 90/55 (67) 11/20/24 08:51 98.4 11/20/24 08:45 83 20 97 97/58 (71) 11/20/24 08:30 82 20 97 100/61 (74) 11/20/24 08:15 91 20 97 99/63 (75) 11/20/24 08:00 90 20 97 98/58 (71) 11/20/24 08:00 94 Room Air* 0 21 LABS: Laboratory: Test 11/20/24 04:28 11/20/24 00:45 11/19/24 03:46 Range/Units White Blood Count 11.1 H 4.8-10.8 K/uL Red Blood Count 2.86 L 4.50-6.20 MIL/uL Hemoglobin 9.0 L 14.0-18.0 g/dL Hematocrit 27.8 L 42-54 % Mean Corpuscular Volume 97.2 79-99 fL Mean Corpuscular Hemoglobin 31.5 27.0-33.0 pg Mean Corpuscular Hemoglobin Concent 32.4 32.0-36.0 g/dL Red Cell Distribution Width 14.0 11.0-15.5 % Platelet Count 586 H 130-400 K/uL Mean Platelet Volume 9.4 7.5-10.5 fL Nucleated Red Blood Cells 0.2 H 0.0-0.19 % Sodium Level 138 136-145 mmol/L Potassium Level 3.7 3.5-5.1 mmol/L Chloride Level 103 101-111 mmol/L Carbon Dioxide Level 26 21-32 mmol/L Blood Urea Nitrogen 9 7-18 mg/dL Creatinine 1.1 0.5-1.3 mg/dL Glomerular Filtration Rate Calc 73 >90 mL/min Random Glucose 130 H 70-105 mg/dL Total Calcium 7.8 L 8.5-10.1 mg/dL Magnesium Level 2.30 1.80-2.40 mg/dL Total Bilirubin 0.5 0.2-1.0 mg/dL Direct Bilirubin 0.2 0.0-0.3 mg/dL Aspartate Amino Transf (AST/SGOT) 33 10-37 U/L Alanine Aminotransferase (ALT/SGPT) 26 12-78 U/L Alkaline Phosphatase 75 50-136 U/L Total Protein 6.6 6.0-8.3 g/dL Albumin 2.4 L 3.5-5.0 g/dL Procalcitonin 0.06 0.05-0.5 ng/mL Thyroxine (T4) 7.5 4.7-13.3 ug/dL Free Triiodothyronine (T3) pg/mL 1.64 L 2.18-3.98 pg/mL Activated Partial Thromboplast Time 70.4 H 26.3-35.5 SEC Thyroid Stimulating Hormone (TSH) 7.13 #H 0.36-3.74 uIU/mL Current Medications Medications (Trade) Dose Ordered Sig/Brittany Route PRN Reason Start Time Stop Time Status Last Admin Dose Admin Acetaminophen (TYLenol 325MG TAB) 650 mg Q4H PRN PO Temp >38.3C(AFTER EXTUBATION) 11/07/24 14:00 12/07/24 13:59 Acetaminophen (TYLenol 325MG TAB) 650 mg Q6H PRN PO TEMPERATURE GREATER THAN 101.5 11/03/24 21:00 11/07/24 14:00 DC 11/06/24 23:00 650 MG Acetaminophen (TYLenol 325MG TAB) 650 mg Q6H PRN PO MILD PAIN (1-3) 11/07/24 14:00 12/07/24 13:59 11/16/24 11:37 650 MG Acetaminophen (TYLenol 650MG SUPPOSITORY) 650 mg Q4H PRN RC Temp >38.3C WHILE INTUBATED 11/07/24 14:00 12/07/24 13:59 Acetaminophen (acetaMINOPHEN) 1,000 mg Q6H IVPB 11/09/24 09:00 11/12/24 08:59 DC 11/12/24 02:11 1,000 MG Acetaminophen (acetaMINOPHEN) 1,000 mg Q6H6 IV 11/07/24 18:00 11/08/24 17:59 DC 11/08/24 18:08 1,000 MG Albumin Human 250 ml @ 0 mls/hr AD PRN IV IF HEMODYNAMICALLY UNSTABLE 11/07/24 14:00 11/08/24 09:57 DC 11/08/24 09:57 125 MLS/HR Albumin Human 250 ml @ 0 mls/hr AD STAT IV 11/15/24 13:09 11/15/24 13:12 DC 11/15/24 13:28 250 MLS/HR Aminocaproic Acid 09270 mg/Sodium Chloride 310 ml @ 25 mls/hr AD IV 11/07/24 14:00 11/08/24 02:23 DC Aminocaproic Acid 50964 mg/Sodium Chloride 480 ml @ 0 mls/hr AD PRN IV BLEEDING CONTROL 11/07/24 11:00 11/07/24 14:03 DC Aspirin (Aspirin 81mg Ec Tab) 81 mg DAILY PO 11/04/24 09:00 12/04/24 08:59 11/20/24 08:40 81 MG Atorvastatin Calcium (LIPItor 40MG) 40 mg HS PO 11/03/24 21:00 11/03/24 20:40 DC Atorvastatin Calcium (LIPItor 40MG) 40 mg HS PO 11/03/24 21:00 11/09/24 07:45 DC 11/07/24 20:15 40 MG Atorvastatin Calcium (LIPItor 40MG) 40 mg HS PO 11/10/24 21:00 12/10/24 20:59 11/19/24 21:03 40 MG Calcium Gluconate (Calcium Gluc 1gm Vial) 1 gm AD PRN IV HYPOCALCEMIA 11/08/24 09:00 11/09/24 07:45 DC 11/08/24 16:36 1 GM Calcium Gluconate 1 gm/Sodium Chloride 60 ml @ 200 mls/hr AD PRN IV HYPOCALCEMIA 11/07/24 14:00 12/07/24 13:59 11/20/24 08:42 200 MLS/HR Cefazolin Sodium (Ancef) 2 gm ONCALL IVPB 11/06/24 22:00 11/07/24 14:00 DC Cefazolin Sodium (Ancef) 2 gm Q8H IVPB 11/07/24 19:00 11/08/24 11:01 DC 11/08/24 11:15 2 GM Clopidogrel Bisulfate (plaVIX 75MG) 75 mg DAILY PO 11/08/24 14:00 12/08/24 13:59 11/20/24 08:41 75 MG Dexmedetomidine/ Sodium Chloride (PRECEdex 400MCG/ 100ML-NS) 400 mcg PROTOCOL IV 11/07/24 14:00 12/07/24 13:59 Dextrose (D50w) 50 ml AD PRN IV HYPOGLYCEMIA PROTOCOL 11/07/24 14:00 12/07/24 13:59 Dextrose/Sodium Bicarbonate 1,025 ml @ 10 mls/hr Q24H IV 11/07/24 19:30 12/07/24 19:29 11/19/24 03:11 10 MLS/HR Docusate Sodium (COLace 100MG CAP) 100 mg BID PO 11/07/24 21:00 11/08/24 10:11 DC 11/07/24 20:15 100 MG Docusate Sodium (COLace 100MG CAP) 100 mg BID PO 11/10/24 09:00 12/10/24 08:59 11/19/24 21:03 100 MG Docusate Sodium (COLace LIQUID 100MG/10ML) 100 mg BID NG 11/08/24 10:30 11/09/24 21:53 DC 11/09/24 20:47 100 MG Enoxaparin Sodium (Lovenox) 30 mg DAILY SQ 11/10/24 09:00 11/13/24 08:38 DC 11/12/24 09:03 30 MG Enoxaparin Sodium (Lovenox) 40 mg DAILY SQ 11/04/24 09:00 11/07/24 13:38 DC 11/05/24 09:06 40 MG Epinephrine HCl 10 mg/Sodium Chloride 250 ml @ 13.948 mls/ hr AD PRN IV POST-OP CARDIOVASCULAR ORDERS 11/07/24 14:00 11/12/24 13:59 DC 11/09/24 19:48 7 MLS/HR Epinephrine HCl 10 mg/Sodium Chloride 250 ml @ 0 mls/hr AD PRN IV TITRATE 11/07/24 11:00 11/07/24 14:02 DC Epinephrine HCl 10 mg/Sodium Chloride 250 ml @ 0 mls/hr PROTOCOL IV 11/12/24 23:30 12/12/24 23:29 11/20/24 06:36 7 MLS/HR Famotidine (Pepcid 20mg Vial) 20 mg BID IV 11/07/24 21:00 11/08/24 08:59 DC 11/08/24 08:11 20 MG Famotidine (Pepcid 20mg Tab) 20 mg DAILY PO 11/04/24 09:00 11/07/24 13:38 DC 11/05/24 09:06 20 MG Folic Acid (FOLic ACID 1 MG TABLET) 1 mg DAILY PO 11/14/24 09:00 12/14/24 08:59 11/20/24 08:41 1 MG Furosemide (LASix 20MG TAB) 20 mg Q12H PO 11/09/24 09:00 12/09/24 08:59 11/20/24 08:40 20 MG Furosemide (LASix 20MG VIAL) 20 mg Q12H IV 11/08/24 09:00 11/09/24 08:59 DC 11/08/24 20:23 20 MG Glucagon (Glucagon 1mg Kit) 1 mg AD PRN IM HYPOGLYCEMIA PROTOCOL 11/07/24 14:00 12/07/24 13:59 Guaifenesin/ Dextromethorphan (RobiTUSSin DM 200/20MG 10ML) 15 ml Q6H PRN PO COUGH 11/19/24 15:00 12/19/24 14:59 11/19/24 14:49 15 ML Heparin Sodium (Porcine) (HEParin 5,000 UNIT VIAL) *calculation based on ACTUAL B... AD PRN IV HEPARIN PROTOCOL 11/13/24 09:30 12/13/24 09:29 Heparin Sodium/ Dextrose 250 ml @ 0 mls/hr Q6H IV 11/13/24 09:30 12/13/24 09:29 11/20/24 06:35 5 MLS/HR Hydralazine HCl (APRESOLine 20MG INJ) 10 mg Q6H PRN IV For:SBP above 160;DBP above 90 11/03/24 21:00 11/07/24 13:38 DC Insulin Human Regular 100 unit/ Sodium Chloride 100 ml @ 0 mls/hr AD IV 11/07/24 14:00 11/09/24 13:59 DC 11/08/24 12:30 4 MLS/HR Ipratropium [place]iman (AtrovENT UD) 0.5 MG [id number] IH 11/08/24 12:00 12/08/24 11:59 11/20/24 11:22 0.5 MG Lactulose (Constulose 20gm/ 30ml Udcup) 20 gm BID PRN PO CONSTIPATION 11/03/24 21:00 11/07/24 14:00 DC Lactulose (Constulose 20gm/ 30ml Udcup) 20 gm BID PRN PO CONSTIPATION 11/07/24 14:00 12/07/24 13:59 11/18/24 06:21 20 GM Levothyroxine Sodium (SYNTHroid 125MCG TAB) 125 mcg SYN PO 11/09/24 06:30 12/09/24 06:29 11/20/24 06:13 125 MCG Lidocaine HCl/ Dextrose 250 ml @ 0 mls/hr PROTOCOL PRN IV OTHER [SEE ORDER COMMENTS] 11/08/24 21:00 11/09/24 08:37 DC 11/08/24 21:15 7.5 MLS/HR Magnesium Hydroxide (Milk Of Magnesium 30ml) 30 ml DAILY PRN PO CONSTIPATION 11/07/24 14:00 12/07/24 13:59 Magnesium Sulfate 50 ml @ 12.5 mls/hr AD PRN IV MAG LEVEL LESS THAN 2.0 11/07/24 14:00 12/07/24 13:59 11/09/24 05:59 12.5 MLS/HR Metoprolol Tartrate (loprESSOR) 12.5 mg BID PO 11/09/24 09:00 11/11/24 09:39 DC Metoprolol Tartrate (loprESSOR) 50 mg BID PO 11/04/24 21:00 11/07/24 13:38 DC 11/06/24 20:38 50 MG Midodrine (PROAMatine 5 MG TABLET) 10 mg TID PO 11/09/24 21:00 11/11/24 06:58 DC 11/10/24 20:07 10 MG Midodrine (PROAMatine 5 MG TABLET) 15 mg TID PO 11/11/24 09:00 12/11/24 08:59 11/20/24 13:46 15 MG Montelukast Sodium (SinguLAIR) 10 mg HS PO 11/08/24 21:00 12/08/24 20:59 11/19/24 21:03 10 MG Morphine Sulfate (morPHINE 2MG SYG) 0.5 mg Q2H PRN IV MODERATE PAIN (4-6) 11/07/24 14:00 11/08/24 13:59 DC Morphine Sulfate (morPHINE 2MG SYG) 1 mg Q2H PRN IV SEVERE PAIN (7-10) 11/07/24 14:00 11/08/24 13:59 DC Morphine Sulfate (morPHINE 4MG SYG) 2 mg Q4H PRN IVP SEVERE PAIN (7-10) 11/03/24 21:00 11/07/24 13:38 DC 11/04/24 15:49 2 MG Nitroglycerin (Nitroglycerin 1gm Oint) 0.5 inch Q8H TD 11/03/24 21:00 11/07/24 13:38 DC 11/07/24 05:46 0.5 INCH Nitroglycerin/ Dextrose 0 ml @ 0 mls/hr AD IV 11/07/24 14:00 11/10/24 13:59 DC Norepinephrine Bitartrate 250 ml @ 0 mls/hr AD PRN IV TITRATE 11/07/24 11:00 11/07/24 14:02 DC Norepinephrine Bitartrate 250 ml @ 0 mls/hr AD PRN IV POST-OP CARDIOVASCULAR ORDERS 11/07/24 14:00 11/12/24 13:59 DC 11/09/24 17:09 5.6 MLS/HR Norepinephrine Bitartrate 250 ml @ 0 mls/hr PROTOCOL IV 11/12/24 18:30 12/12/24 18:29 11/13/24 08:42 2 MLS/HR Ondansetron HCl (zoFRAN 4MG INJ) 4 mg Q6H PRN IV NAUSEA/VOMITING 11/03/24 21:00 11/07/24 14:00 DC Ondansetron HCl (zoFRAN 4MG INJ) 4 mg Q6H PRN IV NAUSEA/VOMITING 11/07/24 14:00 12/07/24 13:59 11/09/24 21:50 4 MG Pantoprazole Sodium (PROTonix 40MG INJ) 40 mg BID IVP 11/08/24 09:00 12/08/24 08:59 11/20/24 08:40 40 MG Pharmacy Profile Note (Pharmacy Communication) 1 each ONCE MISC 11/13/24 09:00 11/13/24 08:57 DC Piperacillin Sod/ Tazobactam Sod (Zosyn 3.375gm+NS 50ml) 3.375 gm Q8H IV 11/09/24 10:00 11/09/24 09:38 DC Piperacillin Sod/ Tazobactam Sod (Zosyn 3.375gm+NS 50ml) 3.375 gm Q8H IV 11/09/24 10:00 11/19/24 09:59 DC 10/9/25 02:20 3.375 GM Polyethylene Glycol (MIRalax 3350 17 GM POWD.PACK) 17 gm DAILY PO 11/09/24 09:00 12/09/24 08:59 11/19/24 08:46 17 GM Potassium Phosphate 250 ml @ 42 mls/hr AD PRN IV LOW PHOS LEVEL 11/07/24 14:00 12/07/24 13:59 11/08/24 07:22 42 MLS/HR Potassium Chloride 100 ml @ 100 mls/hr AD PRN IV HYPOKALEMIA 11/07/24 14:00 12/07/24 13:59 11/20/24 06:13 100 MLS/HR Potassium Chloride (K-Dur/Klor-Con 20meq) 20 meq AD PRN PO POTASSIUM PROTOCOL 11/14/24 00:30 12/14/24 00:29 11/17/24 08:09 20 MEQ Potassium Chloride (KCl 10% Elixir 20meq/15ml) 20 meq AD PRN PO POTASSIUM PROTOCOL 11/14/24 00:30 12/14/24 00:29 11/20/24 08:40 20 MEQ Propofol 100 ml @ 0 mls/hr AD PRN IV SEDATION 11/07/24 14:00 11/11/24 13:59 DC Sodium Bicarbonate (Sodium Bicarb 50meq 50ml Vial) 50 meq AD PRN IV OTHER[SEE DOSING INSTRUCTIONS] 11/07/24 14:00 11/10/24 13:59 DC 11/08/24 00:54 50 MEQ Sodium Chloride 250 ml @ 0 mls/hr Q0M IV 11/18/24 10:00 12/18/24 09:59 11/18/24 10:13 250 MLS/HR Sodium Chloride 500 ml @ 0 mls/hr AD IV 11/07/24 14:00 12/07/24 13:59 11/10/24 00:41 3 MLS/HR Sodium Chloride 1,000 ml @ 10 mls/hr ONCE IV 11/07/24 14:00 11/08/24 13:59 DC 11/07/24 20:11 10 MLS/HR Sodium Chloride 1,000 ml @ 100 mls/hr Q10H IV 11/06/24 12:30 11/06/24 15:29 DC Sodium Chloride (NS Flush 10ml) 10 ml Q8H PRN IVP IV LINE FLUSH 11/07/24 14:00 12/07/24 13:59 Sucralfate (Carafate) 1 gm TID PO 11/08/24 21:00 12/08/24 20:59 11/20/24 13:46 1 GM Tramadol HCl (UltRAM) 25 mg Q6H PRN PO MODERATE PAIN (4-6) 11/07/24 14:00 11/09/24 08:37 DC Tramadol HCl (UltRAM) 50 mg Q6H PRN PO SEVERE PAIN (7-10) 11/07/24 14:00 11/09/24 08:37 DC 11/08/24 23:30 50 MG Vitamin B Complex (Vitamin B-12) 1,000 mcg DAILY IM 11/07/24 09:00 11/13/24 08:59 DC 11/12/24 09:03 1,000 MCG Vitamin B Complex (Vitamin B-12) 1,000 mcg DAILY PO 11/14/24 09:00 12/14/24 08:59 11/20/24 08:41 1,000 MCG DIAGNOSTICS / RADIOLOGY: [ ] ASSESSMENT: Coronary artery disease, POA, s/p CABG 3v and redo sternotomy with redo of graft failure now s/p CABG with 4v Postop acute anemia requiring transfusion Acute kidney injury Hyperlipidemia, POA Hypothyroidism, POA Peripheral artery disease, suspected Carotid artery stenosis PLAN: Coronary artery disease, POA s/p CABG 3v and redo sternotomy with redo of graft failure now s/p CABG with 4v * Administer aspirin 325 mg p.o. now and then continue aspirin 81 mg p.o. daily * Troponin every 6 hours, serial troponin levels are 10-21-1111. * Supplemental oxygen as needed to maintain SpO2 greater than 94% * Monitor for recurrence of chest pain, arrhythmias, or hemodynamic changes * Electrocardiogram was done which is normal. * A 2D Echo has been ordered due to patients history of chest pain on exertion and rest. * A cardiology consult has been placed for evaluation of CAD in patient with exertional chest pain and vascular disease. 11/04/24 * Echocardiogram was done which revealed aortic valve: trileaflet, mildly sclerotic, and opens well. * Pending Coronary CTA reports. * Lipid panels has been ordered to assess Cardiovascular risks. Results unremarkable. * In coronary CT angiography there is mixed calcified and noncalcified plaque in the proximal LAD with 80-90% stenosis. Left circumflex coronary artery: Normal caliber, nondominant and gives rise to a large OM branch. There is mixed calcified and noncalcified plaque in the mid LCx with 80-90% stenosis. * CAD-RAD of 4B. * Left heart catheterization with selective right and left coronary angiography was performed which showed critical left main disease. Severe ostial RCA stenosis. 11/06/24 * He complaints of headache 8/10 of intensity after the administration of Nitroglycerin. Tylenol has been administered. Closely monitoring the patient. * Cardiac catheterization demonstrated a very tight left main lesion and the patient is referred for surgical revascularization. * Patient is POD 12 S/P CABG, patient is being managed in the ICU per protocol. * Recent ABG shows lactic acid is 1.21. * epinephrine drip continues at 0.03 mcg/kg/min. * His impella setting is decreased to P4. planning to further wean off. * We will continue to follow Cardiology and critical care recommendations. * He is on heparin drip and off lovenox. * Hematology saw the patient and they recommended to start folic acid, vitamin B12, ordered SPEP, UPEP, free light chains. They think that the patient might be having hemolytic anemia which could be the reason for his graft clotting after surgery. * Cardiology plan to wean him of the pressors than impella. Peripheral vascular disease, Suspected * Patient has history of exertional bilateral leg pain * Diminished peripheral pulses * A SERA has been ordered due to the patients complaint of bilateral lower extremity claudication, and numbness/tingling in bilateral lower extremities. * Clear aspirin 81 mg daily and statin 40mg * Encouraged supervised exercise therapy for claudication * Counseled on continued smoking cessation 11/04/24 Peripheral Neuropathy * Vitamin B12 has been ordered to rule out peripheral neuropathy.11/05/24 * Complained of numbness and tingling in his limbs. * Vitamin B12 level was measured which showed 173L. * Patient has been started on vitamin B12 supplement 1000 mcg for 6 days. Carotid artery stenosis * Presence of bilateral carotid bruit on exam, suspicion for significant stenosis * Carotid Duplex ultrasound has been done, awaiting reports * Risk factor modification: Smoking cessation, BP control, glycemic control. 11/04/24 * Carotid artery ultrasound showed Bilateral ICA/CCA ratio more than 4.0 suggesting more than 70% stenosis. 11/05/24 * Cardiology recommended CT/MR angiogram when stable from surgical standpoint Hyperlipidemia * Continue home statin therapy atorvastatin 40 mg * Reinforce low-cholesterol, heart healthy diet (limit saturated fats, increase fiber, fruits and vegetables) * Encouraged regular physical activity as tolerated * Monitor lipid panel * Outpatient follow up with PCP/Cardiology for long-term lipid management and cardiovascular risks reduction Supportive measures * Start patient on GI prophylaxis * DVT prophylaxis * Monitor morning labs CBC and BMP daily * He is on clear liquid diet Hypothyroidism * Continue home dose of levothyroxine at 125 mcg daily * TSH 7.13 and Free T3 1.64. Postop acute anemia requiring transfusion - Patient's hemoglobin on 11/18 is 9. Patient has normocytic anemia - His iron panel from 11/17 showed low iron and low percentage saturation. - As per Hematology recommendations, patient was given IV iron sucrose today. - Follow up with morning CBC. ATTESTATION BY PHYSICIAN I have seen and examined the patient. I reviewed the documentation, medical decision making, and treatment plan as noted by the resident provider above. I agree with the findings and plan of care. ALISA POLLARD MD, MUHAMMAD H MD Nov 20, 2024 15:57
--- NOTE | 2024-11-20 16:24 | PN ---
PROGRESS NOTE Date of Service: Nov 20, 2024 Time of Service: 16:22 SUBJECTIVE: 69-year old male with past medical history of Graves disease, hyperlipidemia, CAD(status post PTCA 30 years ago) presented to ED with chief complaints of on and off chest pain. He was found to have severe left main disease and underwent CABG on 11/07. Patient had to undergo a redo due to graft thrombosis on table. Subsequently he was placed on Impella initially on P4---->P8---->P5--->P4(current). He was treated with multiple pressors. On 11/09 patient underwent right radial artery arterial line placement which clotted. And 2nd anterior line was placed on right axillary artery on 11/12/2024 which was also clotted. Another arterial line was placed on left brachial artery on 11/14/2024 . Patient was also noted to have transient thrombocytopenia between 11/09/2024 to 11/12/2024. 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 However direct Juan test and cold agglutinin was negative. Patient is seen and evaluated at the bedside today. Patient is alert oriented. He continues to be on Impella support. His platelet count is [id number], hemoglobin 9, WBC 14.2. Free [place] lambda light chain ratio 0.69 suggestive of polyclonal elevations. We will wait for SPEP-if monoclonal we will proceed with bone marrow biopsy. He is in NAD. REVIEW OF SYSTEMS CONSTITUTIONAL: Denies fever, chills, or fatigue. HEAD/FACE: No signs of trauma. EENT: Denies eye pain, blurred vision, double vision, or light sensitivity. RESPIRATORY: Denies shortness of breath, cough, wheezing CARDIOVASCULAR: Denies chest pain, palpitation, syncope GASTROINTESTINAL/ABDOMINAL: Denies abdominal pain, constipation, diarrhea, nausea or vomiting GENITOURINARY: Denies dysuria or hematuria. MUSCULOSKELETAL: Denies joint pain, tenderness, or trauma. INTEGUMENTARY: Denies rash or itchiness NEUROLOGICAL/PSYCH: Denies anxiety, depression, heat or cold intolerance. PHYSICAL EXAM EYES: Anicteric. Pupils equal and reactive. HENT: No oral thrush seen, moist Oral mucosa NECK: Supple, no JVD or thyromegaly. LUNGS: Good air entry. No rales, no rhonchi. CARDIOVASCULAR: S1, S2 regular. No murmur heard. ABDOMEN: Soft, non tender, bowel sounds present, no organomegaly CENTRAL NERVOUS SYSTEM: Awake, alert, oriented x 3. No focal deficits. SKIN: No rashes, no swelling. LYMPHATICS: No peripheral lymphadenopathy MUSCULOSKELETAL: No joint swelling, erythema or tenderness. EXTREMITIES: No cyanosis or clubbing BACK: No deformity, no pressure ulcer. GENITOURINARY: No dysuria or hematuria Vital Signs (last 8hr) Date Time Temp Pulse Resp B/P (MAP) Pulse Ox O2 Delivery O2 Flow Rate FiO2 11/20/24 16:00 94 Room Air* 0 21 11/20/24 14:45 77 19 97 91/61 (71) 11/20/24 14:30 81 20 98 106/68 (81) 11/20/24 14:15 78 20 97 113/83 (93) 11/20/24 14:00 83 20 97 108/68 (81) 11/20/24 13:45 86 18 99 114/83 (93) 11/20/24 13:15 88 20 113/73 (86) 96 11/20/24 13:10 92 20 127/83 (98) 97 11/20/24 13:00 90 20 97 113/73 (86) 11/20/24 12:45 88 20 124/75 (91) 97 11/20/24 12:30 87 20 114/46 (68) 97 11/20/24 12:15 88 20 124/86 (99) 95 11/20/24 12:04 98.6 11/20/24 12:00 90 20 97 121/45 (70) 11/20/24 12:00 94 Room Air* 0 21 11/20/24 11:45 90 17 133/71 (91) 96 11/20/24 11:30 88 20 137/82 (100) 96 11/20/24 11:22 88 18 11/20/24 11:15 90 20 123/81 (95) 97 11/20/24 11:00 86 20 112/76 (88) 95 11/20/24 10:55 88 20 128/76 (93) 95 11/20/24 10:45 89 20 111/70 (84) 98 11/20/24 10:30 93 20 106/38 (60) 98 11/20/24 10:15 86 20 129/83 (98) 97 11/20/24 09:45 94 20 124/79 (94) 98 11/20/24 09:30 78 20 93 94/51 (65) 11/20/24 09:15 80 20 97 91/54 (66) 11/20/24 09:00 82 20 97 90/55 (67) 11/20/24 08:51 98.4 11/20/24 08:45 83 20 97 97/58 (71) 11/20/24 08:30 82 20 97 100/61 (74) LABS: Laboratory: Test 11/20/24 04:28 11/20/24 00:45 11/19/24 03:46 Range/Units White Blood Count 11.1 H 4.8-10.8 K/uL Red Blood Count 2.86 L 4.50-6.20 MIL/uL Hemoglobin 9.0 L 14.0-18.0 g/dL Hematocrit 27.8 L 42-54 % Mean Corpuscular Volume 97.2 79-99 fL Mean Corpuscular Hemoglobin 31.5 27.0-33.0 pg Mean Corpuscular Hemoglobin Concent 32.4 32.0-36.0 g/dL Red Cell Distribution Width 14.0 11.0-15.5 % Platelet Count 586 H 130-400 K/uL Mean Platelet Volume 9.4 7.5-10.5 fL Nucleated Red Blood Cells 0.2 H 0.0-0.19 % Sodium Level 138 136-145 mmol/L Potassium Level 3.7 3.5-5.1 mmol/L Chloride Level 103 101-111 mmol/L Carbon Dioxide Level 26 21-32 mmol/L Blood Urea Nitrogen 9 7-18 mg/dL Creatinine 1.1 0.5-1.3 mg/dL Glomerular Filtration Rate Calc 73 >90 mL/min Random Glucose 130 H 70-105 mg/dL Total Calcium 7.8 L 8.5-10.1 mg/dL Magnesium Level 2.30 1.80-2.40 mg/dL Total Bilirubin 0.5 0.2-1.0 mg/dL Direct Bilirubin 0.2 0.0-0.3 mg/dL Aspartate Amino Transf (AST/SGOT) 33 10-37 U/L Alanine Aminotransferase (ALT/SGPT) 26 12-78 U/L Alkaline Phosphatase 75 50-136 U/L Total Protein 6.6 6.0-8.3 g/dL Albumin 2.4 L 3.5-5.0 g/dL Procalcitonin 0.06 0.05-0.5 ng/mL Thyroxine (T4) 7.5 4.7-13.3 ug/dL Free Triiodothyronine (T3) pg/mL 1.64 L 2.18-3.98 pg/mL Activated Partial Thromboplast Time 70.4 H 26.3-35.5 SEC Thyroid Stimulating Hormone (TSH) 7.13 #H 0.36-3.74 uIU/mL DIAGNOSTICS / RADIOLOGY: [ ] Assessment 1. Anemia. Is multifactorial. Including iron deficiency anemia 2. 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 ELSA 5. Hyperlipidemia 6. Sclerotic nodule on the non coronary cusp on 2D echo Normal ventricular diastolic function with LVEF of 60-65% on 2D echo 11/05/24 7. Former smoker Plan: 1. Patient started on IV iron while in the hospital. This patient may be will need oral iron every other day for at least 6 months. 2. Please continue on folic acid 1 mg p.o. daily and vitamin B12 1000 mcg p.o. daily 3. Peripheral blood smear -There was a spherocytes. direct Juan is negative. There is no need for prednisone treatment. Patient does not have autoimmune hemolytic anemia(Cold agglutinin negative ). How ever if thrombosis is recurring , we would recommend placing blanket covers and avoid cold exposure as this may contribute to thrombotic risk . 4. 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 NOEL pending .Free kappa /Lambda ratio 0.69- polyclonal . Wait for NOEL- if monoclonal we will do bone marrow biopsy. 5. I discussed the case with cardiology. There is no need for anticoagulation from cardiology point of view. So this patient is going to be discharged there is no need for oral anticoagulation from my point of view.How ever there is concern for current arterial line not functioning ? clotting - if thats the case , patient will benefit from Aspirin or plavix . Patient will need hypercoagulable state testing. Will do it as outpatient (after heparin is discontinued ) 6. Continue care as per cardiothoracic surgery ATTESTATION BY PHYSICIAN I have seen and examined the patient. I reviewed the documentation, medical decision making, and treatment plan as noted by the resident physician above. I agree with the findings and plan of care. JAYLENE DO MD, MD Nov 20, 2024 16:24
[2024-11-21] VITALS (94 sets, daily range): BP systolic 77–135; BP diastolic 33–99; PULSE 74–92; RESP 12–27; TEMP 97.6–98.4; O2SAT 94–96
[2024-11-21 04:34] LABS: NUCLEATED RED BLOOD CELLS 0.2 % (0.0-0.19); PLATELET COUNT (AUTO) 657.0 K/uL (130-400); RED BLOOD CELL COUNT(AUTO) 2.98 MIL/uL (4.50-6.20); RED CELL DISTRIBUTION WIDTH 14.1 % (11.0-15.5); WHITE BLOOD COUNT (AUTO) 10.0 K/uL (4.8-10.8)
[2024-11-21 04:46] LABS: CREATININE 1.1 mg/dL (0.5-1.3); GLOMERULAR FILTR. RATE CALC 73.0 mL/min (>90); GLUCOSE,RANDOM 134.0 mg/dL (70-105); SODIUM SERUM 140.0 mmol/L (136-145); UREA NITROGEN, BLOOD 12.0 mg/dL (7-18)
--- NOTE | 2024-11-21 08:54 | HMCIMG ---
EXAM: CR Chest, single view. CLINICAL HISTORY: Impella device COMPARISON: Prior chest radiograph dated November 20, 2024. FINDINGS: An Impella device is identified in the left ventricle. Right-sided central venous catheter with tip in the superior vena cava. Poststernotomy status. Normal cardiac size. The lungs show no infiltrate or other acute findings. No pleural effusion or pneumothorax. No acute osseous abnormality. IMPRESSION: An Impella device is identified in the left ventricle. Right-sided central venous catheter with tip in the superior vena cava.Poststernotomy status. Normal cardiac size. No acute infiltrates or effusion. Compared to the prior study, there is an interval resolution of the right subsegmental atelectasis. /John
--- NOTE | 2024-11-21 10:13 | PN ---
TIME: 8:00 a.m. SUBJECTIVE: The patient is a 69-year-old gentleman, status post Impella assisted coronary artery bypass grafting. No major events overnight. Continues to be on intermittent low-dose epinephrine at 0.03 and Impella at P4 to P5 support. We have been unable to wean the Impella down. PHYSICAL EXAMINATION: NEUROLOGIC: Alert and oriented. No deficits. CARDIAC: S1, S2. Regular rate and rhythm. RESPIRATORY: Clear to auscultation bilaterally. ASSESSMENT AND PLAN: Coronary artery disease, status post coronary artery bypass grafting. Remained stable; however, unable to wean the Impella down. He still needs the support. He is flowing around 3 liters at P4-P5 level at this time. Volume overload. We will continue with Lasix for now. Hypercholesterolemia, on high-statin therapy. Acute blood loss anemia. No evidence of active bleeding. At this time, we will continue to transfuse for hemoglobin less than 7. TID: [id number] RECEIPT: [id number]
--- NOTE | 2024-11-21 11:03 | PN ---
[facility] PROGRESS NOTE Date Patient Seen: Nov 21, 2024 Time of Visit: 11:03 Supervising Physician: Justin FERNANDEZ MD Primary Care Physician: Self Referral Outpatient Specialists: [ ] Inpatient Consults: PEG, Dr Jacobo, Dr Fernandez , Dr Meza PROBLEM LIST: Cardiogenic shock SCAI stage C requiring MCS with IMpella 5.5 MvCAD s/p CABG x 3+1 w/ redo on 11/07/24 Postop acute anemia requiring transfusion ELSA Hyperlipidemia Sclerotic nodule on the non coronary cusp on 2D echo Normal ventricular diastolic function with LVEF of 60-65% on 2D echo 11/05/24 Former smoker Graves disease Obesity INTERVAL HISTORY: Patient is awake alert and oriented x3. He continues on Impella support of P4 epi at 0.06 mcg/kg per minute. Hemodynamically stable blood pressure of 102/55 map of 71 heart rate in the 70s respiratory rate of 18 saturating 94% and afebrile. Patient has a good urine output of 3.9 L in the last 24 hours chest tube to left anterior chest 70 mL of drainage per 24 hours mediastinal chest tube drained 20 mL. He has a balance of-2.9 L. on laboratory white count is 10 H&H is stable 9.4/29.2 platelet count is elevated at 657. Chemistries shows glucose of 134 mg/dL albumin of 2.4. On chest x-ray there is an Impella device in the defect in the left ventricle, right-sided central venous catheter with the tip of the superior vena cava, post sternotomy status. Normal cardiac size. No acute infiltrates or effusions noted. Compared to prior study. There is no interval resolution of the right subsegmental atelectasis. We will continue follow CV surgery recommendations. REVIEW OF SYSTEMS: 12 point ROS reviewed with patient. Pertinent positives mentioned above. Otherwise negative. PHYSICAL EXAM: GENERAL: alert, weak, awake oriented x 3 HEENT: EOMI, Sclera non icteric, moist mucosa NECK: Supple, no JVD, trachea midline right IJ. Subclavian Impella 5.5 LUNGS: Rhonchi to right lower lobes. No wheezes HEART: Regular rate and rhythm. Normal S1 and S2, without murmurs mid incision line tenderness. Dressing clean dry and intact. ABD: Abdomen soft, nontender. Bowel sounds present EXT: No clubbing cyanosis or edema. Left femoral sheath. NEURO: Alert and oriented to person, follows commands Vital Signs (last 8hr) Date Time Temp Pulse Resp B/P (MAP) Pulse Ox O2 Delivery O2 Flow Rate FiO2 11/21/24 06:33 79 20 N/A Room Air 21 11/21/24 06:29 79 17 11/21/24 06:25 76 16 95 88/51 (63) 11/21/24 06:10 80 16 95 88/58 (68) 11/21/24 05:55 79 24 93 92/53 (66) 11/21/24 05:40 80 22 93 100/56 (71) 11/21/24 05:25 80 18 93 97/57 (70) 11/21/24 05:10 84 22 94 103/68 (80) 11/21/24 04:55 86 21 94 98/61 (73) 11/21/24 04:40 78 12 96 107/59 (75) 11/21/24 04:25 78 20 92 91/60 (70) 11/21/24 04:10 79 23 92 96/56 (69) 11/21/24 04:00 96 Room Air* 0 21 11/21/24 03:55 98.4 78 23 92 95/59 (71) 11/21/24 03:40 80 26 92 102/60 (74) 11/21/24 03:25 79 26 96 103/63 (76) 11/21/24 03:15 80 21 95 77/33 (48) 11/21/24 03:10 76 20 93 77/52 (60) LABS: Hematology Labs: Test 11/21/24 04:11 Range/Units White Blood Count 10.0 4.8-10.8 K/uL Red Blood Count 2.98 L 4.50-6.20 MIL/uL Hemoglobin 9.4 L 14.0-18.0 g/dL Hematocrit 29.2 L 42-54 % Mean Corpuscular Volume 98.0 79-99 fL Mean Corpuscular Hemoglobin 31.5 27.0-33.0 pg Mean Corpuscular Hemoglobin Concent 32.2 32.0-36.0 g/dL Red Cell Distribution Width 14.1 11.0-15.5 % Platelet Count 657 H 130-400 K/uL Mean Platelet Volume 9.4 7.5-10.5 fL Nucleated Red Blood Cells 0.2 H 0.0-0.19 % Chemistry Labs: Test 11/21/24 04:11 11/20/24 04:28 Range/Units Sodium Level 140 136-145 mmol/L Potassium Level 3.8 3.5-5.1 mmol/L Chloride Level 104 101-111 mmol/L Carbon Dioxide Level 24 21-32 mmol/L Blood Urea Nitrogen 12 7-18 mg/dL Creatinine 1.1 0.5-1.3 mg/dL Glomerular Filtration Rate Calc 73 >90 mL/min Random Glucose 134 H 70-105 mg/dL Total Calcium 8.3 L 8.5-10.1 mg/dL Magnesium Level 2.30 1.80-2.40 mg/dL Total Bilirubin 0.5 0.2-1.0 mg/dL Direct Bilirubin 0.2 0.0-0.3 mg/dL Aspartate Amino Transf (AST/SGOT) 33 10-37 U/L Alanine Aminotransferase (ALT/SGPT) 26 12-78 U/L Alkaline Phosphatase 75 50-136 U/L Total Protein 6.6 6.0-8.3 g/dL Albumin 2.4 L 3.5-5.0 g/dL Procalcitonin 0.06 0.05-0.5 ng/mL Thyroxine (T4) 7.5 4.7-13.3 ug/dL Free Triiodothyronine (T3) pg/mL 1.64 L 2.18-3.98 pg/mL Coagulation Labs: Test 11/21/24 00:19 Range/Units Activated Partial Thromboplast Time 60.8 H 26.3-35.5 SEC DIAGNOSTICS / RADIOLOGY RESULTS: [ ] [place] [id number] [address] IMAGING REPORT Signed PATIENT: CLARE KERR MR#: [id number] : 1955 SEX: M AGE: 69 LOCATION: 2CH ORDER 230 STATUS: ADM IN REPORT#: [id number] SERVICE [id number] REASON: impella device ORDERING PHYSICIAN: AGNIESZKA AMAYA PROCEDURE: CXR1VW - CHEST 1VW EXAM: CR Chest, single view. CLINICAL HISTORY: Impella device COMPARISON: Prior chest radiograph dated November 20, 2024. FINDINGS: An Impella device is identified in the left ventricle. Right-sided central venous catheter with tip in the superior vena cava. Poststernotomy status. Normal cardiac size. The lungs show no infiltrate or other acute findings. No pleural effusion or pneumothorax. No acute osseous abnormality. IMPRESSION: An Impella device is identified in the left ventricle. Right-sided central venous catheter with tip in the superior vena cava.Poststernotomy status. Normal cardiac size. No acute infiltrates or effusion. Compared to the prior study, there is an interval resolution of the right subsegmental atelectasis. /[place] DICTATED BY: CASPER SWARTZ MD DATE: 11/21/24952 ELECTRONICALLY SIGNED BY: CASPER SWARTZ MD DATE: 11/21/24952 PLAN Following Cardiothoracic Surgeons postop protocol Neurovascular checks per protocol Weaning Impella per CTS I&Os Cardiac diet Telemetry PT/OT Continue bowel regimen Heme-Onc recommendations Continue IS Q 1 hour while awake. NEURO: Minimize central acting medications as possible. Fall Precautions. Well lighted room through the day and minimize interruptions through the night to prevent acute delirium. PULMONARY: Supplemental 02 as needed Titrate Fio2 to keep Spo2 > or = 90% DuoNebs and CPT as needed IS hourly while awake for pulmonary hygiene Out of bed to chair as tolerated VAP Bundle Bipap 12/6 fio2 50% RT to titrate FiO2 as needed to maintain O2 above 92% CARDIOVASCULAR: Follow hemodynamics. Titrate vasopressor to keep MAP >65 or systolic blood pressure >95mmHg DIPS: Epi LINES: Central venous catheter right IJ Impella 5.5 Chest tube A line Daniel catheter GI & NUTRITION: NPO for now Aspirations precautions Prokinetic agents and laxatives as needed KIDNEYS & ELECTROLYTES: Strict monitoring of intake and output Daily weights Avoid nephrotoxic agents Monitor electrolytes and replace as needed Goal urine output of 30mL/hr or 0.5mL/kg/hr Urine output 2 L in last 24 hours Chest tube drained 400 mL to lateral side Mediastinal drain 90 mL with I&O balance positive 230 mL ENDOCRINE: Maintain blood glucose between 100-180 at all times. Insulin sliding scale for blood glucose management INFECTIOUS DISEASE: Trend temperature. Nichols-culture if febrile. Micro: [ ] MRSA negative Antibiotics: [ ] Ancef HEMATOLOGY & COAGULATION: Monitor H&H. Keep Hgb > 7 Transfuse 1 unit of PRBC for Hgb < 7 Transfuse 1 pack of platelets of platelets < 20, 000 Watch for any signs and symptoms of bleeding SKIN: Pressure ulcer prevention per facility protocol Rehab: PT/OT Prophylaxis: GI: [ Protonix 40 mg IV b.i.d.] DVT: Heparin per CV Code Status: Full Resuscitation Disposition: [ TBD C Total critical care time 45 minutes, patient remains critical requiring pressors, Impella support. Time excludes any educational time or procedures performed ATTESTATION BY PHYSICIAN I reviewed the documentation, medical decision making, and treatment plan as noted by the mid-level provider above. I agree with the findings and plan of care. Justin Fernandez MD, [facility] Nov 21, 2024 11:03
--- NOTE | 2024-11-21 13:13 | PN ---
This is a 69-year-old male with a history of coronary artery disease status post remote PTCA, hyperlipidemia, carotid artery disease, Graves disease and former smoker (quit two months ago). He was admitted 11/03/2024 secondary to unstable angina. He underwent coronary CTA showing multivessel coronary artery disease including distal left main. He underwent left heart catheterization 11/06/2024 showing critical left main disease and severe ostial RCA stenosis. He underwent CABG initially off pump with graft failure converted to Impella supported CABG x4 11/07/2024. He was transfused PRBCs x2 intraoperatively. Preop echocardiogram 11/05/2024 shows an ejection fraction of 60 65% with mild LVH. Repeat echocardiogram 11/12/2024 for Impella placement shows an ejection fraction of 40-45%. He is currently in sinus rhythm with heart rates in the 80s. Blood pressure 97/52. Impella remains in place at P4. He is on epinephrine. Chest x-ray 11/21/2024 is negative for acute infiltrates and pleural effusion. White blood count 10.0, hemoglobin 9.4, hematocrit 29.2, platelets 657, creatinine 1.1, potassium 3.8, magnesium 2.30, TSH 7.13, free T3 1.64, T4 7.5. He reports mild discomfort to the chest tube site but is otherwise doing well. He denies chest pain, shortness or breath, weakness or dizziness. On exam, he is in no acute distress, regular rate and rhythm, lungs are clear to auscultation bilaterally, no lower extremity edema is noted. Assessment: 1. Unstable angina. 2. Multivessel coronary disease. 3. Status post Impella supported CABG x4 11/07/2024. 4. Ischemic cardiomyopathy. 5. Hypotension. 6. Bilateral carotid artery disease. 7. Thrombocytosis. 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 Plan: 1. He presented with unstable angina and underwent coronary CTA showing multivessel coronary artery disease. Left heart catheterization showed critical left main disease and severe ostial RCA stenosis. He underwent CABG, initially off pump, converted to Impella supported CABG x4 11/07/2024. Impella remains in place set at P4. He also remains on epinephrine and midodrine 15 mg 3 times daily due to hypotension. 2. Continue aspirin 81 mg once daily, atorvastatin 40 mg once daily clopidogrel 75 mg once daily and furosemide 20 mg twice daily. 3. Recommend CT angiogram of the carotid arteries once stable from a surgical standpoint. 4. We will follow the patient. Vitals/Labs Vital Signs Date Time Temp Pulse Resp B/P (MAP) Pulse Ox O2 Delivery O2 Flow Rate FiO2 11/21/24 12:27 98.2 11/21/24 12:00 83 19 95 97/52 (67) 11/21/24 12:00 Room Air* 0 21 Laboratory Tests 11/21/24 04:11 KYM MOONEY PAC Nov 21, 2024 13:13
--- NOTE | 2024-11-21 13:41 | PN ---
[facility] PROGRESS NOTE Date of Service: Nov 21, 2024 Time of Service: 13:31 SUBJECTIVE: Mr. Valadez a 68-year-old male that was seen and examined today on 11/03/2024. Patient reports that he came to the emergency department with a chief complaint of chest pain. Onset was two or three years ago. He had similar repeated episodes months back which resolved on its own. Today's episode began at 11:00 a.m. Location is midsternal. Duration is on and off. Character is described as "neck someone is pushing a knuckle into the center of my chest. The chest pain did not radiate to shoulder, neck or jaw. "There was no alleviating factors. There was no aggravating factors. Patient reports that symptoms seemingly resolve on their own. He denies nausea, vomiting, fever and any other associated symptoms. Patient denies any associated shortness of breath. Patient has a past medical history of hyperlipidemia and Graves disease. He has been taking atorvastatin and Synthroid as his home medications. Today in the emergency department WBC 5.8, hemoglobin 12.9 platelets 197. His chemistries were within normal limits sodium 140, potassium 4.2, blood urea nitrogen 15 and creatinine 1.0. His electrocardiogram showed normal sinus rhythm. Patient will be admitted for further evaluation and related recommendations in Med-Surg. 11/04/24 Patient was evaluated at the bedside in ED-09. He reports that he is having chest pain that comes and goes. The patient reports having 2 episodes of chest pain in the last hour. He denies associated symptoms such as shortness of breath, palpitation, diaphoresis, dizziness, nausea or syncope. He does however complain of muscle pain in his lower limbs described as a dull aching discomfort that begins in the hip region that is worsened with movement. The patient complains of tingling and numbness in his feet bilaterally. No fever, chills or recent infection reported. Appetite and oral intake are normal. No other acute complaints at this time. On physical exam, a systolic murmur was auscultated over the aortic area. Bilateral carotid bruits are present. Lower extremities are cool to the touch with diminished pedal pulses. Patient reports bilateral leg muscle pain with exertion (suggestive of claudication), and chronic numbness and tingling in the feet. Patient reports recently quitting smoking tobacco for 2 months. He had a 1 pack a day smoking history since 1968. 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 The patient says his chest pain has been ongoing for the past 3 years, and that it gets worse with exertion and at rest. 11/05/24 Patient was evaluated at the bedside room 231. He was hemodynamically stable. Hi symptoms has improved significantly. He doesn't complain of chest pain, shortness of breath and any other associated symptoms. Echocardiogram was done which revealed aortic valve: trileaflet, mildly sclerotic, and opens well. Carotid artery ultrasound showed Bilateral ICA/CCA ratio more than 4.0 suggesting more than 70% stenosis. 11/06/24 Patient was evaluated at the bedside room 231. He was hemodynamically stable. Hi symptoms has improved significantly. He doesn't complain of chest pain, shortness of breath and any other associated symptoms. In coronary CT angiography there is mixed calcified and noncalcified plaque in the proximal LAD with 80-90% stenosis. Left circumflex coronary artery: Normal caliber, nondominant and gives rise to a large OM branch. There is mixed calcified and noncalcified plaque in the mid LCx with 80-90% stenosis. CAD-RAD of 4B. Left heart catheterization with selective right and left coronary angiography was performed which showed critical left main disease. 11/07/24 Patient was evaluated at the bedside room 231. He was hemodynamically stable. He doesn't complain of chest pain, shortness of breath and any other associated symptoms. He complaints of headache 8/10 of intensity after the administration of Nitroglycerin. Cardiac catheterization demonstrated a very tight left main lesion and the patient is referred for surgical revascularization. As per Dr Meza: Surgery is planned for today. 11/08/24: Patient was seen and evaluated this morning at bedside. The patient is POD 1 s/p CABG. Patient is currently being managed in the ICU. The patients most recent ABG shows a pH of 7.43, ABG PCO2 47, ABG PO2 77.9, ABG HCO3 30.8. Recent ABG shows improving lactic acid, from 8 to 3.85. The patients chemistry reveals a sodium level 157, potassium level 3.4, creatinine 1.9, BUN 19, GFR 38, phosphorous 2.2. Liver enzymes are trending up, with an ALT level at 325 and an AST level at 869. The patients home medication of Synthroid has been restarted. Chest x-ray ordered today, results pending. We will continue to follow recommendations from critical care team, and cardiology. 11/09/2024: Patient is seen and evaluated in the room 213. The patient is POD 2 s/p CABG. Patient is currently being managed in the ICU. He is complaining of pain. His vitals are in the normal range. His Hb is 11.1, WBC is 19.1, Plt is 115, sodium is 154, chloride is 113, glucose is 122. His recent ABG shows that pH is 7.472, pO2 is 80.1, bicarb is 30.4, Hb is 11.4, lactic acid is 1.63. His chest X-ray on 11/08 showed improved aeration within the left perihilar and left basilar regions. As per nurse he is having intervention confusion, stopped lidocaine and they also weaning on pressors norepinephrine and epinephrine. The drain output from left anterior chest is 20ml, mediastinal lateral is 160ml, mediastinal mediastinal is 300ml, right anterior chest is 160 ml. We will continue to follow recommendations from critical care team, and cardiology. 11/10/2024: Patient was seen and evaluated this morning at bedside. The patient is POD 3 s/p CABG. Patient is currently being managed in the ICU. He is not having any symptoms today. His vitals are in the normal range. His labs are normal except for Hb is 10.1, WBC is 14.7, plt is 85, sodium is 147, AST is 156, ALT is 95, APTT is 25.5. ABG shows that his pH is 7.4, lactate is 1.22, bicarb is 31. The drain output from left anterior chest is 170 ml, mediastinal mediastinal is 130ml. We will continue to follow recommendations from critical care team, and cardiology. 11/11/2024: Patient was seen and evaluated this morning at bedside. The patient is POD 4 s/p CABG. He is not having any symptoms today. His vitals are in the normal range. His labs are normal except for hemoglobin is 9.7, WBC is 11.7, platelet is 106, glucose is 107, AST is 87, ALT is 62. ABG shows pH is 7.468, lactic acid is 1.03. We will continue to follow recommendations from critical care team, and cardiology. 11/12/2024: Patient was seen and evaluated in the room 218. The patient is POD 5 s/p CABG. He is having dizziness and ache in the left shoulder. His vitals are in the normal range. His labs are normal except for hemoglobin 9.6, platelets is 94, AST 75. ABG shows pH 7.487, lactic acid 1.2. Currently he is not on any pressors. Cardiovascular surgery tried to wean Impella. They decreased impella setting to P4 but his blood pressure is low so they went back to P5. Cardiovascular surgery also increased his midodrine dose to 15mg. His chest X- ray showed mild pulmonary vascular congestion. He had a bowel movement and good urine output. He is using incentive spirometry well. We will continue to follow recommendations from the critical Care team and Cardiology. 11/13/2024: Patient was seen and evaluated in the room 218. The patient is POD 6 s/p CABG. He is having dizziness and generalized ache. His vitals are in the normal range. His labs are normal except for Hb is 8.9, calcium is 7.4, glucose is 140. His chest x-ray showed that mild borderline cardiomegaly with median sternotomy with cardiac and aspiration procedure, support lines in satisfactory position, no evidence of airspace consolidation or pulmonary venous congestion. He is restarted on norepinephrine and epinephrine drip and impella at P5 as he is hypotensive and has bradycardia. The nurse told me that she will consult anesthesia for changing the arterial line as his line is not working. He is on heparin drip and off of lovenox. The drain output from left anterior chest is 260 ml, mediastinal mediastinal is 60ml. Hematology was consulted as he is in a hypercoagulable state. 11/14/2024: Patient was seen and evaluated in the room 218. The patient is POD 7 s/p CABG. His vital signs are in the normal range except for blood pressure is 88/64. His labs are normal except for hemoglobin is 8.8, APTT is 62.4, glucose is 133, calcium is 7.5, AST is 61. Chest X-ray showed mild cardiomegaly with median sternotomy with cardiac revascularization procedure, support lines are in satisfactory position. His impella is increased to P7 as he is hypotensive and bradycardic. He is on epinephrine. The drain output from left anterior chest is 80ml and from mediastinal mediastinal is 20ml. Hematology saw the patient and they recommended to start folic acid, vitamin B12, ordered SPEP, UPEP, free light chains. They think that the patient might be having hemolytic anemia which could be the reason for his graft clotting after surgery. 11/15/2024: He was evaluated at the bedside this morning. The patient is POD 8 s/p CABG. He is on Impella support with blood pressure 89/64 with map 72. Remarkable lab is for hemoglobin 9.2. Chest x-ray revealed mildly improved right lower lobe airspace opacity with stable cardiac support device and median sternotomy. His MPOA is encouraged to P8 and weaned off the pressors. Hematology recommending Tatiana test to rule out autoimmune hemolytic anemia. Hematology, CT surgery, critical care and cardiology on the board. Rest of the plan as discussed below. 11/16/2024: He was evaluated at the bedside this morning. The patient is POD 9 s/p CABG. Impella support has been weaned to P5 today. As per Dr. Khan, epi will be turned on at 0.03 mcg/kg/min and Impella performance level will be decreased to p4 tomorrow morning. Today, patient's BP is at 102/62, 79bpm and he is on 3L O2 nasal cannula. He is pending direct tatiana test, SPEP, UPEP and Free Light Chain assay as per hematology. His Hb from today is 8.9. Chest Tube drainage is at 201 ml. Hematology, CT surgery, critical care and cardiology on the board. 11/17/2024: He was evaluated at the bedside this morning. The patient is POD 10 s/p CABG. Impella support has been weaned to P4 today. Patient is currently on epinephrine 0.03 mcg/kg/minute as per Dr. Khan. Patient is receiving Lasix for diuresis and her urine output in the past 24 hours has been for 4050 mL. Mediastinal mediastinal chest tube drainage is 40 mL. Left anterior chest tube drainage is 104 mL. Hematology, CT surgery, critical care and cardiology on the board. 11/18/2024: He was evaluated at the bedside this morning. The patient is POD 11 s/p CABG. Impella support continues on P4 today. Plan is to wean off further tomorrow. Patient is currently on epinephrine 0.05 mcg/kg per minute. His blood pressure is running low, 88/48. Patient is receiving Lasix for diuresis and his urine output in the past 24 hours has been for 3400 mL. Mediastinal mediastinal chest tube drainage is 60 mL. Left anterior chest tube drainage is 140 mL. Hematology, CT surgery, critical care and cardiology on the board. As per Hematology recommendations, IV iron sucrose was ordered since iron panel showed low iron, and low percentage saturation. 11/19/2024: Patient was seen and evaluated at the bedside this morning. The patient is POD 12 s/p CABG. Impella support continues on P4 today and there is a plan to wean it off further, awaiting cardiothoracic surgery recommendations. Patient is currently maintained on epinephrine 0.03 mcg/kg per minute. His blood pressure is still running low, 92/44. He passed stool twice yesterday, after 7 days of constipation. Hematology, CT surgery, critical care and cardiology on the board. 11/20/2024: Patient was seen and evaluated at bedside this morning. He continues on P4 support. He is vitally stable with BP 101/56. WBCs are trending down from 12.4 K to 11.1 K. His TSH was elevated, 7.13. Free T3 test showed 1.64. We will continue to follow recommendations from Cardiothoracic surgery, Cardiology, and critical Care teams. 11/21/24: Patient was seen and evaluated at bedside this morning in room 218. The patient is POD 14 s/p CABG He continues on P4 support planning to be weaned off to lower settings if he continues to do better as per cardiothoracic surgery recommendations. Blood pressure on arterial line is 97/52 (67). WBCs are trending down from 11.1 to 10.0. His TSH was elevated, 7.13. Free T3 test showed 1.64. We will continue to follow recommendations from Cardiothoracic surgery, Cardiology, and critical Care teams. REVIEW OF SYSTEMS CONSTITUTIONAL: Pain in his left shoulder No fever, chills, or night sweats. NEUROLOGICAL: No headache no sensory and motor deficit. CARDIOVASCULAR: Dizziness Denies any exertional angina, dyspnea on exertion, palpitations. PULMONARY: Denies any shortness of breath, cough, phlegm/sputum, hemoptysis, pleuritic chest pain. GASTROINTESTINAL: Constipation. Denies nausea, vomiting. Denies pain, tenderness around the abdomen. GENITOURINARY: Denies frequency, urgency, nocturia, hematuria or incontinence. PHYSICAL EXAM GENERAL APPEARANCE: The patient is alert, awake and oriented and bedbound. NEUROLOGICAL: No sensory and motor deficits. CHEST: left anterior chest , mediastinal mediastinal drains are present. Dressing is clean Normal chest expansion. LUNGS: Normal vesicular breath sound. Absence of any rales, rhonchi or any wheezing. CARDIOVASCULAR: Systolic murmur heard over aortic area. Bilateral carotid bruits heard. No JVD. ABDOMEN: Soft nontender, and nondistended. There is no rebound, voluntary guarding, or rigidity. No abdominal bruit heard. GENITOURINARY: No suprapubic tenderness. No costovertebral angle tenderness. EXTREMITIES: Limbs are non-edematous. Vital Signs (last 8hr) Date Time Temp Pulse Resp B/P (MAP) Pulse Ox O2 Delivery O2 Flow Rate FiO2 11/21/24 12:27 98.2 11/21/24 12:00 83 19 95 97/52 (67) 11/21/24 12:00 96 Room Air* 0 21 11/21/24 11:53 87 20 11/21/24 11:45 79 19 95 86/54 (65) 11/21/24 11:30 82 19 95 86/57 (67) 11/21/24 11:15 86 19 95 93/55 (68) 11/21/24 11:00 87 17 95 93/51 (65) 11/21/24 10:45 88 17 95 118/53 (74) 11/21/24 10:30 82 16 95 99/49 (66) 11/21/24 10:15 85 17 95 85/50 (62) 11/21/24 10:00 84 17 95 98/54 (69) 11/21/24 09:45 83 17 95 104/59 (74) 11/21/24 09:30 85 16 95 93/51 (65) 11/21/24 09:15 86 16 95 90/54 (66) 11/21/24 09:00 92 16 95 96/59 (71) 11/21/24 08:45 89 16 95 94/54 (67) 11/21/24 08:30 90 16 95 93/62 (72) 11/21/24 08:15 88 16 97 84/59 (67) 11/21/24 08:00 91 16 97 135/99 (111) 11/21/24 08:00 98.1 11/21/24 08:00 96 Room Air* 0 21 11/21/24 07:45 81 17 97 101/57 (72) 11/21/24 07:30 80 12 97 103/57 (72) 11/21/24 07:15 77 16 94 97/58 (71) 11/21/24 07:00 78 16 94 11/21/24 06:33 79 20 N/A Room Air 21 11/21/24 06:29 79 17 11/21/24 06:25 76 16 95 88/51 (63) 11/21/24 06:10 80 16 95 88/58 (68) 11/21/24 05:55 79 24 93 92/53 (66) 11/21/24 05:40 80 22 93 100/56 (71) LABS: Laboratory: Test 11/21/24 04:11 11/21/24 00:19 11/20/24 04:28 Range/Units White Blood Count 10.0 4.8-10.8 K/uL Red Blood Count 2.98 L 4.50-6.20 MIL/uL Hemoglobin 9.4 L 14.0-18.0 g/dL Hematocrit 29.2 L 42-54 % Mean Corpuscular Volume 98.0 79-99 fL Mean Corpuscular Hemoglobin 31.5 27.0-33.0 pg Mean Corpuscular Hemoglobin Concent 32.2 32.0-36.0 g/dL Red Cell Distribution Width 14.1 11.0-15.5 % Platelet Count 657 H 130-400 K/uL Mean Platelet Volume 9.4 7.5-10.5 fL Nucleated Red Blood Cells 0.2 H 0.0-0.19 % Sodium Level 140 136-145 mmol/L Potassium Level 3.8 3.5-5.1 mmol/L Chloride Level 104 101-111 mmol/L Carbon Dioxide Level 24 21-32 mmol/L Blood Urea Nitrogen 12 7-18 mg/dL Creatinine 1.1 0.5-1.3 mg/dL Glomerular Filtration Rate Calc 73 >90 mL/min Random Glucose 134 H 70-105 mg/dL Total Calcium 8.3 L 8.5-10.1 mg/dL Magnesium Level 2.30 1.80-2.40 mg/dL Activated Partial Thromboplast Time 60.8 H 26.3-35.5 SEC Total Bilirubin 0.5 0.2-1.0 mg/dL Direct Bilirubin 0.2 0.0-0.3 mg/dL Aspartate Amino Transf (AST/SGOT) 33 10-37 U/L Alanine Aminotransferase (ALT/SGPT) 26 12-78 U/L Alkaline Phosphatase 75 50-136 U/L Total Protein 6.6 6.0-8.3 g/dL Albumin 2.4 L 3.5-5.0 g/dL Procalcitonin 0.06 0.05-0.5 ng/mL Thyroxine (T4) 7.5 4.7-13.3 ug/dL Free Triiodothyronine (T3) pg/mL 1.64 L 2.18-3.98 pg/mL Current Medications Medications (Trade) Dose Ordered Sig/Brittany Route PRN Reason Start Time Stop Time Status Last Admin Dose Admin Acetaminophen (TYLenol 325MG TAB) 650 mg Q4H PRN PO Temp >38.3C(AFTER EXTUBATION) 11/07/24 14:00 12/07/24 13:59 Acetaminophen (TYLenol 325MG TAB) 650 mg Q6H PRN PO TEMPERATURE GREATER THAN 101.5 11/03/24 21:00 11/07/24 14:00 DC 11/06/24 23:00 650 MG Acetaminophen (TYLenol 325MG TAB) 650 mg Q6H PRN PO MILD PAIN (1-3) 11/07/24 14:00 12/07/24 13:59 11/16/24 11:37 650 MG Acetaminophen (TYLenol 650MG SUPPOSITORY) 650 mg Q4H PRN RC Temp >38.3C WHILE INTUBATED 11/07/24 14:00 12/07/24 13:59 Acetaminophen (acetaMINOPHEN) 1,000 mg Q6H IVPB 11/09/24 09:00 11/12/24 08:59 DC 11/12/24 02:11 1,000 MG Acetaminophen (acetaMINOPHEN) 1,000 mg Q6H6 IV 11/07/24 18:00 11/08/24 17:59 DC 11/08/24 18:08 1,000 MG Albumin Human 250 ml @ 0 mls/hr AD PRN IV IF HEMODYNAMICALLY UNSTABLE 11/07/24 14:00 11/08/24 09:57 DC 11/08/24 09:57 125 MLS/HR Albumin Human 250 ml @ 0 mls/hr AD STAT IV 11/15/24 13:09 11/15/24 13:12 DC 11/15/24 13:28 250 MLS/HR Aminocaproic Acid 32361 mg/Sodium Chloride 310 ml @ 25 mls/hr AD IV 11/07/24 14:00 11/08/24 02:23 DC Aminocaproic Acid 60934 mg/Sodium Chloride 480 ml @ 0 mls/hr AD PRN IV BLEEDING CONTROL 11/07/24 11:00 11/07/24 14:03 DC Aspirin (Aspirin 81mg Ec Tab) 81 mg DAILY PO 11/04/24 09:00 12/04/24 08:59 11/21/24 08:35 81 MG Atorvastatin Calcium (LIPItor 40MG) 40 mg HS PO 11/03/24 21:00 11/03/24 20:40 DC Atorvastatin Calcium (LIPItor 40MG) 40 mg HS PO 11/03/24 21:00 11/09/24 07:45 DC 11/07/24 20:15 40 MG Atorvastatin Calcium (LIPItor 40MG) 40 mg HS PO 11/10/24 21:00 12/10/24 20:59 11/20/24 20:39 40 MG Calcium Gluconate (Calcium Gluc 1gm Vial) 1 gm AD PRN IV HYPOCALCEMIA 11/08/24 09:00 11/09/24 07:45 DC 11/08/24 16:36 1 GM Calcium Gluconate 1 gm/Sodium Chloride 60 ml @ 200 mls/hr AD PRN IV HYPOCALCEMIA 11/07/24 14:00 12/07/24 13:59 11/21/24 06:13 200 MLS/HR Cefazolin Sodium (Ancef) 2 gm ONCALL IVPB 11/06/24 22:00 11/07/24 14:00 DC Cefazolin Sodium (Ancef) 2 gm Q8H IVPB 11/07/24 19:00 11/08/24 11:01 DC 11/08/24 11:15 2 GM Clopidogrel Bisulfate (plaVIX 75MG) 75 mg DAILY PO 11/08/24 14:00 12/08/24 13:59 11/21/24 08:34 75 MG Dexmedetomidine/ Sodium Chloride (PRECEdex 400MCG/ 100ML-NS) 400 mcg PROTOCOL IV 11/07/24 14:00 12/07/24 13:59 Dextrose (D50w) 50 ml AD PRN IV HYPOGLYCEMIA PROTOCOL 11/07/24 14:00 12/07/24 13:59 Dextrose/Sodium Bicarbonate 1,025 ml @ 10 mls/hr Q24H IV 11/07/24 19:30 12/07/24 19:29 11/19/24 03:11 10 MLS/HR Docusate Sodium (COLace 100MG CAP) 100 mg BID PO 11/07/24 21:00 11/08/24 10:11 DC 11/07/24 20:15 100 MG Docusate Sodium (COLace 100MG CAP) 100 mg BID PO 11/10/24 09:00 12/10/24 08:59 11/20/24 20:40 100 MG Docusate Sodium (COLace LIQUID 100MG/10ML) 100 mg BID NG 11/08/24 10:30 11/09/24 21:53 DC 11/09/24 20:47 100 MG Enoxaparin Sodium (Lovenox) 30 mg DAILY SQ 11/10/24 09:00 11/13/24 08:38 DC 11/12/24 09:03 30 MG Enoxaparin Sodium (Lovenox) 40 mg DAILY SQ 11/04/24 09:00 11/07/24 13:38 DC 11/05/24 09:06 40 MG Epinephrine HCl 10 mg/Sodium Chloride 250 ml @ 13.948 mls/ hr AD PRN IV POST-OP CARDIOVASCULAR ORDERS 11/07/24 14:00 11/12/24 13:59 DC 11/09/24 19:48 7 MLS/HR Epinephrine HCl 10 mg/Sodium Chloride 250 ml @ 0 mls/hr AD PRN IV TITRATE 11/07/24 11:00 11/07/24 14:02 DC Epinephrine HCl 10 mg/Sodium Chloride 250 ml @ 0 mls/hr PROTOCOL IV 11/12/24 23:30 12/12/24 23:29 11/20/24 06:36 7 MLS/HR Famotidine (Pepcid 20mg Vial) 20 mg BID IV 11/07/24 21:00 11/08/24 08:59 DC 11/08/24 08:11 20 MG Famotidine (Pepcid 20mg Tab) 20 mg DAILY PO 11/04/24 09:00 11/07/24 13:38 DC 11/05/24 09:06 20 MG Folic Acid (FOLic ACID 1 MG TABLET) 1 mg DAILY PO 11/14/24 09:00 12/14/24 08:59 11/21/24 08:35 1 MG Furosemide (LASix 20MG TAB) 20 mg Q12H PO 11/09/24 09:00 12/09/24 08:59 11/21/24 08:34 20 MG Furosemide (LASix 20MG VIAL) 20 mg Q12H IV 11/08/24 09:00 11/09/24 08:59 DC 11/08/24 20:23 20 MG Glucagon (Glucagon 1mg Kit) 1 mg AD PRN IM HYPOGLYCEMIA PROTOCOL 11/07/24 14:00 12/07/24 13:59 Guaifenesin/ Dextromethorphan (RobiTUSSin DM 200/20MG 10ML) 15 ml Q6H PRN PO COUGH 11/19/24 15:00 12/19/24 14:59 11/19/24 14:49 15 ML Heparin Sodium (Porcine) (HEParin 5,000 UNIT VIAL) *calculation based on ACTUAL B... AD PRN IV HEPARIN PROTOCOL 11/13/24 09:30 12/13/24 09:29 Heparin Sodium/ Dextrose 250 ml @ 0 mls/hr Q6H IV 11/13/24 09:30 12/13/24 09:29 11/21/24 04:36 14 MLS/HR Hydralazine HCl (APRESOLine 20MG INJ) 10 mg Q6H PRN IV For:SBP above 160;DBP above 90 11/03/24 21:00 11/07/24 13:38 DC Insulin Human Regular 100 unit/ Sodium Chloride 100 ml @ 0 mls/hr AD IV 11/07/24 14:00 11/09/24 13:59 DC 11/08/24 12:30 4 MLS/HR Ipratropium [place] (AtrovENT UD) 0.5 MG [id number] IH 11/08/24 12:00 12/08/24 11:59 11/21/24 11:51 0.5 MG Lactulose (Constulose 20gm/ 30ml Udcup) 20 gm BID PRN PO CONSTIPATION 11/03/24 21:00 11/07/24 14:00 DC Lactulose (Constulose 20gm/ 30ml Udcup) 20 gm BID PRN PO CONSTIPATION 11/07/24 14:00 12/07/24 13:59 11/18/24 06:21 20 GM Levothyroxine Sodium (SYNTHroid 125MCG TAB) 125 mcg SYN PO 11/09/24 06:30 12/09/24 06:29 11/21/24 06:16 125 MCG Lidocaine HCl/ Dextrose 250 ml @ 0 mls/hr PROTOCOL PRN IV OTHER [SEE ORDER COMMENTS] 11/08/24 21:00 11/09/24 08:37 DC 11/08/24 21:15 7.5 MLS/HR Magnesium Hydroxide (Milk Of Magnesium 30ml) 30 ml DAILY PRN PO CONSTIPATION 11/07/24 14:00 12/07/24 13:59 Magnesium Sulfate 50 ml @ 12.5 mls/hr AD PRN IV MAG LEVEL LESS THAN 2.0 11/07/24 14:00 12/07/24 13:59 11/09/24 05:59 12.5 MLS/HR Metoprolol Tartrate (loprESSOR) 12.5 mg BID PO 11/09/24 09:00 11/11/24 09:39 DC Metoprolol Tartrate (loprESSOR) 50 mg BID PO 11/04/24 21:00 11/07/24 13:38 DC 11/06/24 20:38 50 MG Midodrine (PROAMatine 5 MG TABLET) 10 mg TID PO 11/09/24 21:00 11/11/24 06:58 DC 11/10/24 20:07 10 MG Midodrine (PROAMatine 5 MG TABLET) 15 mg TID PO 11/11/24 09:00 12/11/24 08:59 11/21/24 13:08 15 MG Montelukast Sodium (SinguLAIR) 10 mg HS PO 11/08/24 21:00 12/08/24 20:59 11/20/24 20:40 10 MG Morphine Sulfate (morPHINE 2MG SYG) 0.5 mg Q2H PRN IV MODERATE PAIN (4-6) 11/07/24 14:00 11/08/24 13:59 DC Morphine Sulfate (morPHINE 2MG SYG) 1 mg Q2H PRN IV SEVERE PAIN (7-10) 11/07/24 14:00 11/08/24 13:59 DC Morphine Sulfate (morPHINE 4MG SYG) 2 mg Q4H PRN IVP SEVERE PAIN (7-10) 11/03/24 21:00 11/07/24 13:38 DC 11/04/24 15:49 2 MG Nitroglycerin (Nitroglycerin 1gm Oint) 0.5 inch Q8H TD 11/03/24 21:00 11/07/24 13:38 DC 11/07/24 05:46 0.5 INCH Nitroglycerin/ Dextrose 0 ml @ 0 mls/hr AD IV 11/07/24 14:00 11/10/24 13:59 DC Norepinephrine Bitartrate 250 ml @ 0 mls/hr AD PRN IV TITRATE 11/07/24 11:00 11/07/24 14:02 DC Norepinephrine Bitartrate 250 ml @ 0 mls/hr AD PRN IV POST-OP CARDIOVASCULAR ORDERS 11/07/24 14:00 11/12/24 13:59 DC 11/09/24 17:09 5.6 MLS/HR Norepinephrine Bitartrate 250 ml @ 0 mls/hr PROTOCOL IV 11/12/24 18:30 12/12/24 18:29 11/13/24 08:42 2 MLS/HR Ondansetron HCl (zoFRAN 4MG INJ) 4 mg Q6H PRN IV NAUSEA/VOMITING 11/03/24 21:00 11/07/24 14:00 DC Ondansetron HCl (zoFRAN 4MG INJ) 4 mg Q6H PRN IV NAUSEA/VOMITING 11/07/24 14:00 12/07/24 13:59 11/09/24 21:50 4 MG Pantoprazole Sodium (PROTonix 40MG INJ) 40 mg BID IVP 11/08/24 09:00 12/08/24 08:59 11/21/24 08:34 40 MG Pharmacy Profile Note (Pharmacy Communication) 1 each ONCE MISC 11/13/24 09:00 11/13/24 08:57 DC Piperacillin Sod/ Tazobactam Sod (Zosyn 3.375gm+NS 50ml) 3.375 gm Q8H IV 11/09/24 10:00 11/09/24 09:38 DC Piperacillin Sod/ Tazobactam Sod (Zosyn 3.375gm+NS 50ml) 3.375 gm Q8H IV 11/09/24 10:00 11/19/24 09:59 DC 11/19/24 02:20 3.375 GM Polyethylene Glycol (MIRalax 3350 17 GM POWD.PACK) 17 gm DAILY PO 11/09/24 09:00 12/09/24 08:59 11/19/24 08:46 17 GM Potassium Phosphate 250 ml @ 42 mls/hr AD PRN IV LOW PHOS LEVEL 11/07/24 14:00 12/07/24 13:59 11/08/24 07:22 42 MLS/HR Potassium Chloride 100 ml @ 100 mls/hr AD PRN IV HYPOKALEMIA 11/07/24 14:00 12/07/24 13:59 11/21/24 04:58 100 MLS/HR Potassium Chloride (K-Dur/Klor-Con 20meq) 20 meq AD PRN PO POTASSIUM PROTOCOL 11/14/24 00:30 12/14/24 00:29 11/17/24 08:09 20 MEQ Potassium Chloride (KCl 10% Elixir 20meq/15ml) 20 meq AD PRN PO POTASSIUM PROTOCOL 11/14/24 00:30 12/14/24 00:29 11/21/24 08:34 20 MEQ Propofol 100 ml @ 0 mls/hr AD PRN IV SEDATION 11/07/24 14:00 11/11/24 13:59 DC Sodium Bicarbonate (Sodium Bicarb 50meq 50ml Vial) 50 meq AD PRN IV OTHER[SEE DOSING INSTRUCTIONS] 11/07/24 14:00 11/10/24 13:59 DC 11/08/24 00:54 50 MEQ Sodium Chloride 250 ml @ 0 mls/hr Q0M IV 11/18/24 10:00 12/18/24 09:59 11/18/24 10:13 250 MLS/HR Sodium Chloride 500 ml @ 0 mls/hr AD IV 11/07/24 14:00 12/07/24 13:59 11/10/24 00:41 3 MLS/HR Sodium Chloride 1,000 ml @ 10 mls/hr ONCE IV 11/07/24 14:00 11/08/24 13:59 DC 11/07/24 20:11 10 MLS/HR Sodium Chloride 1,000 ml @ 100 mls/hr Q10H IV 11/06/24 12:30 11/06/24 15:29 DC Sodium Chloride (NS Flush 10ml) 10 ml Q8H PRN IVP IV LINE FLUSH 11/07/24 14:00 12/07/24 13:59 Sucralfate (Carafate) 1 gm TID PO 11/08/24 21:00 12/08/24 20:59 11/21/24 13:08 1 GM Tramadol HCl (UltRAM) 25 mg Q6H PRN PO MODERATE PAIN (4-6) 11/07/24 14:00 11/09/24 08:37 DC Tramadol HCl (UltRAM) 50 mg Q6H PRN PO SEVERE PAIN (7-10) 11/07/24 14:00 11/09/24 08:37 DC 11/08/24 23:30 50 MG Vitamin B Complex (Vitamin B-12) 1,000 mcg DAILY IM 11/07/24 09:00 11/13/24 08:59 DC 11/12/24 09:03 1,000 MCG Vitamin B Complex (Vitamin B-12) 1,000 mcg DAILY PO 11/14/24 09:00 12/14/24 08:59 11/21/24 08:35 1,000 MCG DIAGNOSTICS / RADIOLOGY: [place] [address] IMAGING REPORT Signed PATIENT: CLARE VALADEZ MR#: [id number] : 1955 SEX: M AGE: 69 LOCATION: 2CH ORDER 2300 STATUS: ADM IN REPORT#: [id number] SERVICE 0600 REASON: impella device ORDERING PHYSICIAN: AGNIESZKA AMAYA PROCEDURE: CXR1VW - CHEST 1VW EXAM: CR Chest, single view. CLINICAL HISTORY: Impella device COMPARISON: Prior chest radiograph dated November 20, 2024. FINDINGS: An Impella device is identified in the left ventricle. Right-sided central venous catheter with tip in the superior vena cava. Poststernotomy status. Normal cardiac size. The lungs show no infiltrate or other acute findings. No pleural effusion or pneumothorax. No acute osseous abnormality. IMPRESSION: An Impella device is identified in the left ventricle. Right-sided central venous catheter with tip in the superior vena cava.Poststernotomy status. Normal cardiac size. No acute infiltrates or effusion. Compared to the prior study, there is an interval resolution of the right subsegmental atelectasis. /Davis DICTATED BY: CASPER SWARTZ MD DATE: 11/21/24952 ELECTRONICALLY SIGNED BY: CASPER SWARTZ MD DATE: 11/21/24952 ASSESSMENT: Coronary artery disease, POA, s/p CABG 3v and redo sternotomy with redo of graft failure now s/p CABG with 4v Postop acute anemia requiring transfusion Acute kidney injury Hyperlipidemia, POA Hypothyroidism, POA Peripheral artery disease, suspected Carotid artery stenosis PLAN: Coronary artery disease, POA s/p CABG 3v and redo sternotomy with redo of graft failure now s/p CABG with 4v * Administer aspirin 325 mg p.o. now and then continue aspirin 81 mg p.o. daily * Troponin every 6 hours, serial troponin levels are [id number]. * Supplemental oxygen as needed to maintain SpO2 greater than 94% * Monitor for recurrence of chest pain, arrhythmias, or hemodynamic changes * Electrocardiogram was done which is normal. * A 2D Echo has been ordered due to patients history of chest pain on exertion and rest. * A cardiology consult has been placed for evaluation of CAD in patient with exertional chest pain and vascular disease. 11/04/24 * Echocardiogram was done which revealed aortic valve: trileaflet, mildly sclerotic, and opens well. * Pending Coronary CTA reports. * Lipid panels has been ordered to assess Cardiovascular risks. Results unremarkable. * In coronary CT angiography there is mixed calcified and noncalcified plaque in the proximal LAD with 80-90% stenosis. Left circumflex coronary artery: Normal caliber, nondominant and gives rise to a large OM branch. There is mixed calcified and noncalcified plaque in the mid LCx with 80-90% stenosis. * CAD-RAD of 4B. * Left heart catheterization with selective right and left coronary angiography was performed which showed critical left main disease. Severe ostial RCA stenosis. 11/06/24 * He complaints of headache 8/10 of intensity after the administration of Nitroglycerin. Tylenol has been administered. Closely monitoring the patient. * Cardiac catheterization demonstrated a very tight left main lesion and the patient is referred for surgical revascularization. * Patient is POD 14 S/P CABG, patient is being managed in the ICU per protocol. * Recent ABG shows lactic acid is 1.21. * epinephrine drip continues at 0.03 mcg/kg/min. * His impella setting is decreased to P4. planning to further wean off. * We will continue to follow Cardiology and critical care recommendations. * He is on heparin drip and off lovenox. * Hematology saw the patient and they recommended to start folic acid, vitamin B12, ordered SPEP, UPEP, free light chains. kappa light chain - 203, Lambda light chain -29.5. They think that the patient might be having hemolytic anemia which could be the reason for his graft clotting after surgery. * Cardiology plan to wean him of the pressors then impella. Peripheral vascular disease, Suspected * Patient has history of exertional bilateral leg pain * Diminished peripheral pulses * A SERA has been ordered due to the patients complaint of bilateral lower extremity claudication, and numbness/tingling in bilateral lower extremities. * Clear aspirin 81 mg daily and statin 40mg * Encouraged supervised exercise therapy for claudication * Counseled on continued smoking cessation 11/04/24 Peripheral Neuropathy * Vitamin B12 has been ordered to rule out peripheral neuropathy.on 11/06/24, 11/17/24 * Complained of numbness and tingling in his limbs. * Vitamin B12 level was measured which showed [id number]. * Patient has been started on vitamin B12 supplement 1000 mcg for 6 days. Carotid artery stenosis * Presence of bilateral carotid bruit on exam, suspicion for significant stenosis * Carotid Duplex ultrasound has been done, awaiting reports * Risk factor modification: Smoking cessation, BP control, glycemic control. 11/04/24 * Carotid artery ultrasound showed Bilateral ICA/CCA ratio more than 4.0 suggesting more than 70% stenosis. 11/05/24 * Cardiology recommended CT/MR angiogram when stable from surgical standpoint Hyperlipidemia * Continue home statin therapy atorvastatin 40 mg * Reinforce low-cholesterol, heart healthy diet (limit saturated fats, increase fiber, fruits and vegetables) * Encouraged regular physical activity as tolerated * Monitor lipid panel * Outpatient follow up with PCP/Cardiology for long-term lipid management and cardiovascular risks reduction Supportive measures * Start patient on GI prophylaxis * DVT prophylaxis * Monitor morning labs CBC and BMP daily * He is on clear liquid diet Hypothyroidism * Continue home dose of levothyroxine at 125 mcg daily * TSH 7.13 and Free T3 1.64. Postop acute anemia requiring transfusion - Patient's hemoglobin on 11/18 is 9. Patient has normocytic anemia - His iron panel from 11/17 showed low iron and low percentage saturation. - As per Hematology recommendations, patient was given IV iron sucrose today. - Follow up with morning CBC. ATTESTATION BY PHYSICIAN I have seen and examined the patient. I reviewed the documentation, medical decision making, and treatment plan as noted by the resident physician above. I agree with the findings and plan of care. ALISA POLLARD MD, SHAJI MD Nov 21, 2024 13:41
[2024-11-22] VITALS (102 sets, daily range): BP systolic 65–155; BP diastolic 27–90; PULSE 74–94; RESP 6–48; TEMP 97–98.6; O2SAT 93–96
[2024-11-22 04:59] LABS: IMMATURE GRANULOCYTE ABSOLUTE 0.18 K/uL (0-1); NUCLEATED RED BLOOD CELLS 0.0 % (0.0-0.19); PLATELET COUNT (AUTO) 641 K/uL (130-400); RED BLOOD CELL COUNT(AUTO) 3.30 MIL/uL (4.50-6.20); RED CELL DISTRIBUTION WIDTH 14.6 % (11.0-15.5); WHITE BLOOD COUNT (AUTO) 10.3 K/uL (4.8-10.8)
[2024-11-22 05:12] LABS: CREATININE 1.3 mg/dL (0.5-1.3); GLOMERULAR FILTR. RATE CALC 60.0 mL/min (>90); GLUCOSE,RANDOM 144.0 mg/dL (70-105); SODIUM SERUM 138.0 mmol/L (136-145); UREA NITROGEN, BLOOD 10.0 mg/dL (7-18)
--- NOTE | 2024-11-22 11:37 | PN ---
This is a 69-year-old male with a history of coronary artery disease status post remote PTCA, hyperlipidemia, carotid artery disease, Graves disease and former smoker (quit two months ago). He was admitted 11/03/2024 secondary to unstable angina. He underwent coronary CTA showing multivessel coronary artery disease including distal left main. He underwent left heart catheterization 11/06/2024 showing critical left main disease and severe ostial RCA stenosis. He underwent CABG initially off pump with graft failure converted to Impella supported CABG x4 11/07/2024. He was transfused PRBCs x2 intraoperatively. Preop echocardiogram 11/05/2024 shows an ejection fraction of 60 65% with mild LVH. Repeat echocardiogram 11/12/2024 for Impella placement shows an ejection fraction of 40-45%. He is currently in sinus rhythm with heart rates in the 80s. Blood pressure 124/66. Impella remains in place at P4. He is on epinephrine. Chest x-ray 11/22/2024 is negative for acute infiltrates and pleural effusion. White blood count 10.3, hemoglobin 10.2, hematocrit 33.0, platelets 641, creatinine 1.3, potassium 3.9. He reports mild discomfort to the chest tube site but is otherwise doing well. He denies chest pain, shortness or breath, weakness or dizziness. On exam, he is in no acute distress, regular rate and rhythm, lungs are clear to auscultation bilaterally, no lower extremity edema is noted. Assessment: 1. Unstable angina. 2. Multivessel coronary disease. 3. Status post Impella supported CABG x4 11/07/2024. 4. Ischemic cardiomyopathy. 5. Hypotension. 6. Bilateral carotid artery disease. 7. Thrombocytosis. 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 Plan: 1. He presented with unstable angina and underwent coronary CTA showing multivessel coronary artery disease. Left heart catheterization showed critical left main disease and severe ostial RCA stenosis. He underwent CABG, initially off pump, converted to Impella supported CABG x4 11/07/2024. Impella remains in place set at P4. He also remains on epinephrine and midodrine 15 mg 3 times daily due to hypotension. 2. Continue aspirin 81 mg once daily, atorvastatin 40 mg once daily, clopidogrel 75 mg once daily and furosemide 20 mg twice daily. 3. Recommend CT angiogram of the carotid arteries once stable from a surgical standpoint. 4. We will follow the patient. Vitals/Labs Vital Signs Date Time Temp Pulse Resp B/P (MAP) Pulse Ox O2 Delivery O2 Flow Rate FiO2 11/22/24 11:24 79 19 11/22/24 09:45 95 124/66 (85) 11/22/24 08:00 Room Air* 0 21 11/22/24 08:00 98.6 Laboratory Tests 11/22/24 04:47 KYM MOONEY R PAC Nov 22, 2024 11:37
--- NOTE | 2024-11-22 14:02 | PN ---
[facility] PROGRESS NOTE Date of Service: Nov 22, 2024 Time of Service: 8:40 SUBJECTIVE: Mr. Valadez a 68-year-old male that was seen and examined today on 11/03/2024. Patient reports that he came to the emergency department with a chief complaint of chest pain. Onset was two or three years ago. He had similar repeated episodes months back which resolved on its own. Today's episode began at 11:00 a.m. Location is midsternal. Duration is on and off. Character is described as "neck someone is pushing a knuckle into the center of my chest. The chest pain did not radiate to shoulder, neck or jaw. "There was no alleviating factors. There was no aggravating factors. Patient reports that symptoms seemingly resolve on their own. He denies nausea, vomiting, fever and any other associated symptoms. Patient denies any associated shortness of breath. Patient has a past medical history of hyperlipidemia and Graves disease. He has been taking atorvastatin and Synthroid as his home medications. Today in the emergency department WBC 5.8, hemoglobin 12.9 platelets 197. His chemistries were within normal limits sodium 140, potassium 4.2, blood urea nitrogen 15 and creatinine 1.0. His electrocardiogram showed normal sinus rhythm. Patient will be admitted for further evaluation and related recommendations in Med-Surg. 11/04/24 Patient was evaluated at the bedside in ED-09. He reports that he is having chest pain that comes and goes. The patient reports having 2 episodes of chest pain in the last hour. He denies associated symptoms such as shortness of breath, palpitation, diaphoresis, dizziness, nausea or syncope. He does however complain of muscle pain in his lower limbs described as a dull aching discomfort that begins in the hip region that is worsened with movement. The patient complains of tingling and numbness in his feet bilaterally. No fever, chills or recent infection reported. Appetite and oral intake are normal. No other acute complaints at this time. On physical exam, a systolic murmur was auscultated over the aortic area. Bilateral carotid bruits are present. Lower extremities are cool to the touch with diminished pedal pulses. Patient reports bilateral leg muscle pain with exertion (suggestive of claudication), and chronic numbness and tingling in the feet. Patient reports recently quitting smoking tobacco for 2 months. He had a 1 pack a day smoking history since 1968. The [facility] and denies following with a dip filler. The patient says his chest pain has been ongoing for the past 3 years, and that it gets worse with exertion and at rest. 11/05/24 Patient was evaluated at the bedside room 231. He was hemodynamically stable. Hi symptoms has improved significantly. He doesn't complain of chest pain, shortness of breath and any other associated symptoms. Echocardiogram was done which revealed aortic valve: trileaflet, mildly sclerotic, and opens well. Carotid artery ultrasound showed Bilateral ICA/CCA ratio more than 4.0 suggesting more than 70% stenosis. 11/06/24 Patient was evaluated at the bedside room 231. He was hemodynamically stable. Hi symptoms has improved significantly. He doesn't complain of chest pain, shortness of breath and any other associated symptoms. In coronary CT angiography there is mixed calcified and noncalcified plaque in the proximal LAD with 80-90% stenosis. Left circumflex coronary artery: Normal caliber, nondominant and gives rise to a large OM branch. There is mixed calcified and noncalcified plaque in the mid LCx with 80-90% stenosis. CAD-RAD of 4B. Left heart catheterization with selective right and left coronary angiography was performed which showed critical left main disease. 11/07/24 Patient was evaluated at the bedside room 231. He was hemodynamically stable. He doesn't complain of chest pain, shortness of breath and any other associated symptoms. He complaints of headache 8/10 of intensity after the administration of Nitroglycerin. Cardiac catheterization demonstrated a very tight left main lesion and the patient is referred for surgical revascularization. As per Dr Meza: Surgery is planned for today. 11/08/24: Patient was seen and evaluated this morning at bedside. The patient is POD 1 s/p CABG. Patient is currently being managed in the ICU. The patients most recent ABG shows a pH of 7.43, ABG PCO2 47, ABG PO2 77.9, ABG HCO3 30.8. Recent ABG shows improving lactic acid, from 8 to 3.85. The patients chemistry reveals a sodium level 157, potassium level 3.4, creatinine 1.9, BUN 19, GFR 38, phosphorous 2.2. Liver enzymes are trending up, with an ALT level at 325 and an AST level at 869. The patients home medication of Synthroid has been restarted. Chest x-ray ordered today, results pending. We will continue to follow recommendations from critical care team, and cardiology. 11/09/2024: Patient is seen and evaluated in the room 213. The patient is POD 2 s/p CABG. Patient is currently being managed in the ICU. He is complaining of pain. His vitals are in the normal range. His Hb is 11.1, WBC is 19.1, Plt is 115, sodium is 154, chloride is 113, glucose is 122. His recent ABG shows that pH is 7.472, pO2 is 80.1, bicarb is 30.4, Hb is 11.4, lactic acid is 1.63. His chest X-ray on 11/08 showed improved aeration within the left perihilar and left basilar regions. As per nurse he is having intervention confusion, stopped lidocaine and they also weaning on pressors norepinephrine and epinephrine. The drain output from left anterior chest is 20ml, mediastinal lateral is 160ml, mediastinal mediastinal is 300ml, right anterior chest is 160 ml. We will continue to follow recommendations from critical care team, and cardiology. 11/10/2024: Patient was seen and evaluated this morning at bedside. The patient is POD 3 s/p CABG. Patient is currently being managed in the ICU. He is not having any symptoms today. His vitals are in the normal range. His labs are normal except for Hb is 10.1, WBC is 14.7, plt is 85, sodium is 147, AST is 156, ALT is 95, APTT is 25.5. ABG shows that his pH is 7.4, lactate is 1.22, bicarb is 31. The drain output from left anterior chest is 170 ml, mediastinal mediastinal is 130ml. We will continue to follow recommendations from critical care team, and cardiology. 11/11/2024: Patient was seen and evaluated this morning at bedside. The patient is POD 4 s/p CABG. He is not having any symptoms today. His vitals are in the normal range. His labs are normal except for hemoglobin is 9.7, WBC is 11.7, platelet is 106, glucose is 107, AST is 87, ALT is 62. ABG shows pH is 7.468, lactic acid is 1.03. We will continue to follow recommendations from critical care team, and cardiology. 11/12/2024: Patient was seen and evaluated in the room 218. The patient is POD 5 s/p CABG. He is having dizziness and ache in the left shoulder. His vitals are in the normal range. His labs are normal except for hemoglobin 9.6, platelets is 94, AST 75. ABG shows pH 7.487, lactic acid 1.2. Currently he is not on any pressors. Cardiovascular surgery tried to wean Impella. They decreased impella setting to P4 but his blood pressure is low so they went back to P5. Cardiovascular surgery also increased his midodrine dose to 15mg. His chest X- ray showed mild pulmonary vascular congestion. He had a bowel movement and good urine output. He is using incentive spirometry well. We will continue to follow recommendations from the critical Care team and Cardiology. 11/13/2024: Patient was seen and evaluated in the room 218. The patient is POD 6 s/p CABG. He is having dizziness and generalized ache. His vitals are in the normal range. His labs are normal except for Hb is 8.9, calcium is 7.4, glucose is 140. His chest x-ray showed that mild borderline cardiomegaly with median sternotomy with cardiac and aspiration procedure, support lines in satisfactory position, no evidence of airspace consolidation or pulmonary venous congestion. He is restarted on norepinephrine and epinephrine drip and impella at P5 as he is hypotensive and has bradycardia. The nurse told me that she will consult anesthesia for changing the arterial line as his line is not working. He is on heparin drip and off of lovenox. The drain output from left anterior chest is 260 ml, mediastinal mediastinal is 60ml. Hematology was consulted as he is in a hypercoagulable state. 11/14/2024: Patient was seen and evaluated in the room 218. The patient is POD 7 s/p CABG. His vital signs are in the normal range except for blood pressure is 88/64. His labs are normal except for hemoglobin is 8.8, APTT is 62.4, glucose is 133, calcium is 7.5, AST is 61. Chest X-ray showed mild cardiomegaly with median sternotomy with cardiac revascularization procedure, support lines are in satisfactory position. His impella is increased to P7 as he is hypotensive and bradycardic. He is on epinephrine. The drain output from left anterior chest is 80ml and from mediastinal mediastinal is 20ml. Hematology saw the patient and they recommended to start folic acid, vitamin B12, ordered SPEP, UPEP, free light chains. They think that the patient might be having hemolytic anemia which could be the reason for his graft clotting after surgery. 11/15/2024: He was evaluated at the bedside this morning. The patient is POD 8 s/p CABG. He is on Impella support with blood pressure 89/64 with map 72. Remarkable lab is for hemoglobin 9.2. Chest x-ray revealed mildly improved right lower lobe airspace opacity with stable cardiac support device and median sternotomy. His MPOA is encouraged to P8 and weaned off the pressors. Hematology recommending Tatiana test to rule out autoimmune hemolytic anemia. Hematology, CT surgery, critical care and cardiology on the board. Rest of the plan as discussed below. 11/16/2024: He was evaluated at the bedside this morning. The patient is POD 9 s/p CABG. Impella support has been weaned to P5 today. As per Dr. Khan, epi will be turned on at 0.03 mcg/kg/min and Impella performance level will be decreased to p4 tomorrow morning. Today, patient's BP is at 102/62, 79bpm and he is on 3L O2 nasal cannula. He is pending direct tatiana test, SPEP, UPEP and Free Light Chain assay as per hematology. His Hb from today is 8.9. Chest Tube drainage is at 201 ml. Hematology, CT surgery, critical care and cardiology on the board. 11/17/2024: He was evaluated at the bedside this morning. The patient is POD 10 s/p CABG. Impella support has been weaned to P4 today. Patient is currently on epinephrine 0.03 mcg/kg/minute as per Dr. Khan. Patient is receiving Lasix for diuresis and her urine output in the past 24 hours has been for 4050 mL. Mediastinal mediastinal chest tube drainage is 40 mL. Left anterior chest tube drainage is 104 mL. Hematology, CT surgery, critical care and cardiology on the board. 11/18/2024: He was evaluated at the bedside this morning. The patient is POD 11 s/p CABG. Impella support continues on P4 today. Plan is to wean off further tomorrow. Patient is currently on epinephrine 0.05 mcg/kg per minute. His blood pressure is running low, 88/48. Patient is receiving Lasix for diuresis and his urine output in the past 24 hours has been for 3400 mL. Mediastinal mediastinal chest tube drainage is 60 mL. Left anterior chest tube drainage is 140 mL. Hematology, CT surgery, critical care and cardiology on the board. As per Hematology recommendations, IV iron sucrose was ordered since iron panel showed low iron, and low percentage saturation. 11/19/2024: Patient was seen and evaluated at the bedside this morning. The patient is POD 12 s/p CABG. Impella support continues on P4 today and there is a plan to wean it off further, awaiting cardiothoracic surgery recommendations. Patient is currently maintained on epinephrine 0.03 mcg/kg per minute. His blood pressure is still running low, 92/44. He passed stool twice yesterday, after 7 days of constipation. Hematology, CT surgery, critical care and cardiology on the board. 11/20/2024: Patient was seen and evaluated at bedside this morning. He continues on P4 support. He is vitally stable with BP 101/56. WBCs are trending down from 12.4 K to 11.1 K. His TSH was elevated, 7.13. Free T3 test showed 1.64. We will continue to follow recommendations from Cardiothoracic surgery, Cardiology, and critical Care teams. 11/21/24: Patient was seen and evaluated at bedside this morning in room 218. The patient is POD 14 s/p CABG He continues on P4 support planning to be weaned off to lower settings if he continues to do better as per cardiothoracic surgery recommendations. Blood pressure on arterial line is 97/52 (67). WBCs are trending down from 11.1 to 10.0. His TSH was elevated, 7.13. Free T3 test showed 1.64. We will continue to follow recommendations from Cardiothoracic surgery, Cardiology, and critical Care teams. 11/22/24: Patient was seen and evaluated at bedside this morning in room 218. The patient is POD 15 s/p CABG. He continues on P4 support today as weaning off has been unsuccessful so far. He is currently on 0.08 epi support. He is undergoing diuresis as well. He reports no bowel movement for the past several days. We will continue to follow recommendations from Cardiothoracic surgery, Cardiology, and critical Care teams. REVIEW OF SYSTEMS CONSTITUTIONAL: Pain in his left shoulder No fever, chills, or night sweats. NEUROLOGICAL: No headache no sensory and motor deficit. CARDIOVASCULAR: Dizziness Denies any exertional angina, dyspnea on exertion, palpitations. PULMONARY: Denies any shortness of breath, cough, phlegm/sputum, hemoptysis, pleuritic chest pain. GASTROINTESTINAL: Constipation. Denies nausea, vomiting. Denies pain, tender ness around the abdomen. GENITOURINARY: Denies frequency, urgency, nocturia, hematuria or incontinence. PHYSICAL EXAM GENERAL APPEARANCE: The patient is alert, awake and oriented and bedbound. NEUROLOGICAL: No sensory and motor deficits. CHEST: left anterior chest , mediastinal mediastinal drains are present. Dressing is clean Normal chest expansion. LUNGS: Normal vesicular breath sound. Absence of any rales, rhonchi or any wheezing. CARDIOVASCULAR: Systolic murmur heard over aortic area. Bilateral carotid bruits heard. No JVD. ABDOMEN: Soft nontender, and nondistended. There is no rebound, voluntary guarding, or rigidity. No abdominal bruit heard. GENITOURINARY: No suprapubic tenderness. No costovertebral angle tenderness. EXTREMITIES: Limbs are non-edematous. Vital Signs (last 8hr) Date Time Temp Pulse Resp B/P (MAP) Pulse Ox O2 Delivery O2 Flow Rate FiO2 11/22/24 13:00 79 18 94 104/61 (75) 11/22/24 12:45 79 18 93 102/64 (77) 11/22/24 12:30 78 18 93 99/65 (76) 11/22/24 12:29 97.0 11/22/24 12:15 79 18 94 114/73 (87) 11/22/24 12:00 75 18 95 98/59 (72) 11/22/24 12:00 96 Room Air* 0 21 11/22/24 11:45 77 20 95 98/62 (74) 11/22/24 11:30 83 16 96 117/72 (87) 11/22/24 11:24 79 19 11/22/24 11:15 82 19 95 116/76 (89) 11/22/24 11:00 77 18 96 116/48 (70) 11/22/24 10:45 79 18 94 107/64 (78) 11/22/24 10:30 85 18 94 95/57 (70) 11/22/24 10:15 75 18 94 97/50 (66) 11/22/24 10:00 81 18 96 111/72 (85) 11/22/24 09:45 76 18 95 124/66 (85) 11/22/24 09:30 79 18 96 95/50 (65) 11/22/24 09:15 88 15 96 122/54 (76) 11/22/24 09:00 81 18 95 128/62 (84) 11/22/24 08:45 87 18 96 105/62 (76) 11/22/24 08:30 86 18 96 112/64 (80) 11/22/24 08:15 91 18 95 155/90 (111) 11/22/24 08:00 84 18 96 119/76 (90) 11/22/24 08:00 96 Room Air* 0 21 11/22/24 08:00 98.6 11/22/24 07:45 80 18 95 118/64 (82) 11/22/24 07:30 76 18 97 111/70 (84) 11/22/24 07:15 80 18 94 95/58 (70) 11/22/24 07:00 80 18 95 11/22/24 06:59 86 20 N/A Room Air 21 11/22/24 06:58 85 20 11/22/24 06:55 83 13 94 102/67 (79) 11/22/24 06:40 84 20 95 93/65 (74) 11/22/24 06:25 79 20 93 101/57 (72) 11/22/24 06:10 80 18 95 104/57 (73) LABS: Laboratory: Test 11/22/24 04:47 11/22/24 01:01 11/21/24 04:11 Range/Units White Blood Count 10.3 4.8-10.8 K/uL Red Blood Count 3.30 L 4.50-6.20 MIL/uL Hemoglobin 10.2 L 14.0-18.0 g/dL Hematocrit 33.0 L 42-54 % Mean Corpuscular Volume 100.0 H 79-99 fL Mean Corpuscular Hemoglobin 30.9 27.0-33.0 pg Mean Corpuscular Hemoglobin Concent 30.9 L 32.0-36.0 g/dL Red Cell Distribution Width 14.6 11.0-15.5 % Platelet Count 641 H 130-400 K/uL Mean Platelet Volume 8.9 7.5-10.5 fL Immature Granulocyte % (Auto) 1.7 H 0-1 % Neutrophils (%) (Auto) 66.4 40.0-77.0 % Lymphocytes (%) (Auto) 19.3 L 21.0-51.0 % Monocytes (%) (Auto) 8.1 3.0-13.0 % Eosinophils (%) (Auto) 3.4 0.0-8.0 % Basophils (%) (Auto) 1.1 0.0-5.0 % Neutrophils # (Auto) 6.9 1.8-7.7 K/uL Lymphocytes # (Auto) 2.0 1.0-4.8 K/uL Monocytes # (Auto) 0.8 0.1-1.0 K/uL Eosinophils # (Auto) 0.35 0.00-0.70 K/uL Basophils # (Auto) 0.11 0.00-0.20 K/uL Absolute Immature Granulocyte (auto 0.18 0-1 K/uL Nucleated Red Blood Cells 0.0 0.0-0.19 % Red Blood Cell Morphology See comments Sodium Level 138 136-145 mmol/L Potassium Level 3.9 3.5-5.1 mmol/L Chloride Level 100 L 101-111 mmol/L Carbon Dioxide Level 25 21-32 mmol/L Blood Urea Nitrogen 10 7-18 mg/dL Creatinine 1.3 0.5-1.3 mg/dL Glomerular Filtration Rate Calc 60 >90 mL/min Random Glucose 144 H 70-105 mg/dL Total Calcium 8.7 8.5-10.1 mg/dL Activated Partial Thromboplast Time 63.0 H 26.3-35.5 SEC Magnesium Level 2.30 1.80-2.40 mg/dL Current Medications Medications (Trade) Dose Ordered Sig/Brittany Route PRN Reason Start Time Stop Time Status Last Admin Dose Admin Acetaminophen (TYLenol 325MG TAB) 650 mg Q4H PRN PO Temp >38.3C(AFTER EXTUBATION) 11/07/24 14:00 12/07/24 13:59 Acetaminophen (TYLenol 325MG TAB) 650 mg Q6H PRN PO TEMPERATURE GREATER THAN 101.5 11/03/24 21:00 11/07/24 14:00 DC 11/06/24 23:00 650 MG Acetaminophen (TYLenol 325MG TAB) 650 mg Q6H PRN PO MILD PAIN (1-3) 11/07/24 14:00 12/07/24 13:59 11/16/24 11:37 650 MG Acetaminophen (TYLenol 650MG SUPPOSITORY) 650 mg Q4H PRN RC Temp >38.3C WHILE INTUBATED 11/07/24 14:00 12/07/24 13:59 Acetaminophen (acetaMINOPHEN) 1,000 mg Q6H IVPB 11/09/24 09:00 11/12/24 08:59 DC 11/12/24 02:11 1,000 MG Acetaminophen (acetaMINOPHEN) 1,000 mg Q6H6 IV 11/07/24 18:00 11/08/24 17:59 DC 11/08/24 18:08 1,000 MG Albumin Human 250 ml @ 0 mls/hr AD PRN IV IF HEMODYNAMICALLY UNSTABLE 11/07/24 14:00 11/08/24 09:57 DC 11/08/24 09:57 125 MLS/HR Albumin Human 250 ml @ 0 mls/hr AD STAT IV 11/15/24 13:09 11/15/24 13:12 DC 11/15/24 13:28 250 MLS/HR Aminocaproic Acid 57375 mg/Sodium Chloride 310 ml @ 25 mls/hr AD IV 11/07/24 14:00 11/08/24 02:23 DC Aminocaproic Acid 42355 mg/Sodium Chloride 480 ml @ 0 mls/hr AD PRN IV BLEEDING CONTROL 11/07/24 11:00 11/07/24 14:03 DC Aspirin (Aspirin 81mg Ec Tab) 81 mg DAILY PO 11/04/24 09:00 12/04/24 08:59 11/22/24 08:03 81 MG Atorvastatin Calcium (LIPItor 40MG) 40 mg HS PO 11/03/24 21:00 11/03/24 20:40 DC Atorvastatin Calcium (LIPItor 40MG) 40 mg HS PO 11/03/24 21:00 11/09/24 07:45 DC 11/07/24 20:15 40 MG Atorvastatin Calcium (LIPItor 40MG) 40 mg HS PO 11/10/24 21:00 12/10/24 20:59 11/21/24 21:12 40 MG Calcium Gluconate (Calcium Gluc 1gm Vial) 1 gm AD PRN IV HYPOCALCEMIA 11/08/24 09:00 11/09/24 07:45 DC 11/08/24 16:36 1 GM Calcium Gluconate 1 gm/Sodium Chloride 60 ml @ 200 mls/hr AD PRN IV HYPOCALCEMIA 11/07/24 14:00 12/07/24 13:59 11/21/24 06:13 200 MLS/HR Cefazolin Sodium (Ancef) 2 gm ONCALL IVPB 11/06/24 22:00 11/07/24 14:00 DC Cefazolin Sodium (Ancef) 2 gm Q8H IVPB 11/07/24 19:00 11/08/24 11:01 DC 11/08/24 11:15 2 GM Clopidogrel Bisulfate (plaVIX 75MG) 75 mg DAILY PO 11/08/24 14:00 12/08/24 13:59 11/22/24 08:02 75 MG Dexmedetomidine/ Sodium Chloride (PRECEdex 400MCG/ 100ML-NS) 400 mcg PROTOCOL IV 11/07/24 14:00 12/07/24 13:59 Dextrose (D50w) 50 ml AD PRN IV HYPOGLYCEMIA PROTOCOL 11/07/24 14:00 12/07/24 13:59 Dextrose/Sodium Bicarbonate 1,025 ml @ 10 mls/hr Q24H IV 11/07/24 19:30 12/07/24 19:29 11/19/24 03:11 10 MLS/HR Docusate Sodium (COLace 100MG CAP) 100 mg BID PO 11/07/24 21:00 11/08/24 10:11 DC 11/07/24 20:15 100 MG Docusate Sodium (COLace 100MG CAP) 100 mg BID PO 11/10/24 09:00 12/10/24 08:59 11/21/24 21:12 100 MG Docusate Sodium (COLace LIQUID 100MG/10ML) 100 mg BID NG 11/08/24 10:30 11/09/24 21:53 DC 11/09/24 20:47 100 MG Enoxaparin Sodium (Lovenox) 30 mg DAILY SQ 11/10/24 09:00 11/13/24 08:38 DC 11/12/24 09:03 30 MG Enoxaparin Sodium (Lovenox) 40 mg DAILY SQ 11/04/24 09:00 11/07/24 13:38 DC 11/05/24 09:06 40 MG Epinephrine HCl 10 mg/Sodium Chloride 250 ml @ 13.948 mls/ hr AD PRN IV POST-OP CARDIOVASCULAR ORDERS 11/07/24 14:00 11/12/24 13:59 DC 11/09/24 19:48 7 MLS/HR Epinephrine HCl 10 mg/Sodium Chloride 250 ml @ 0 mls/hr AD PRN IV TITRATE 11/07/24 11:00 11/07/24 14:02 DC Epinephrine HCl 10 mg/Sodium Chloride 250 ml @ 0 mls/hr PROTOCOL IV 11/12/24 23:30 12/12/24 23:29 11/21/24 21:11 0 MLS/HR Famotidine (Pepcid 20mg Vial) 20 mg BID IV 11/07/24 21:00 11/08/24 08:59 DC 11/08/24 08:11 20 MG Famotidine (Pepcid 20mg Tab) 20 mg DAILY PO 11/04/24 09:00 11/07/24 13:38 DC 11/05/24 09:06 20 MG Folic Acid (FOLic ACID 1 MG TABLET) 1 mg DAILY PO 11/14/24 09:00 12/14/24 08:59 11/22/24 08:03 1 MG Furosemide (LASix 20MG TAB) 20 mg Q12H PO 11/09/24 09:00 12/09/24 08:59 11/22/24 08:03 20 MG Furosemide (LASix 20MG VIAL) 20 mg Q12H IV 11/08/24 09:00 11/09/24 08:59 DC 11/08/24 20:23 20 MG Glucagon (Glucagon 1mg Kit) 1 mg AD PRN IM HYPOGLYCEMIA PROTOCOL 11/07/24 14:00 12/07/24 13:59 Guaifenesin/ Dextromethorphan (RobiTUSSin DM 200/20MG 10ML) 15 ml Q6H PRN PO COUGH 11/19/24 15:00 12/19/24 14:59 11/19/24 14:49 15 ML Heparin Sodium (Porcine) (HEParin 5,000 UNIT VIAL) *calculation based on ACTUAL B... AD PRN IV HEPARIN PROTOCOL 11/13/24 09:30 12/13/24 09:29 Heparin Sodium/ Dextrose 250 ml @ 0 mls/hr Q6H IV 11/13/24 09:30 12/13/24 09:29 11/22/24 10:51 14.25 MLS/HR Hydralazine HCl (APRESOLine 20MG INJ) 10 mg Q6H PRN IV For:SBP above 160;DBP above 90 11/03/24 21:00 11/07/24 13:38 DC Insulin Human Regular 100 unit/ Sodium Chloride 100 ml @ 0 mls/hr AD IV 11/07/24 14:00 11/09/24 13:59 DC 11/08/24 12:30 4 MLS/HR Ipratropium [place] (AtrovENT UD) 0.5 MG [id number] IH 11/08/24 12:00 12/08/24 11:59 11/22/24 11:23 0.5 MG Lactulose (Constulose 20gm/ 30ml Udcup) 20 gm BID PRN PO CONSTIPATION 11/03/24 21:00 11/07/24 14:00 DC Lactulose (Constulose 20gm/ 30ml Udcup) 20 gm BID PRN PO CONSTIPATION 11/07/24 14:00 12/07/24 13:59 11/18/24 06:21 20 GM Levothyroxine Sodium (SYNTHroid 125MCG TAB) 125 mcg SYN PO 11/09/24 06:30 12/09/24 06:29 11/22/24 07:35 125 MCG Lidocaine HCl/ Dextrose 250 ml @ 0 mls/hr PROTOCOL PRN IV OTHER [SEE ORDER COMMENTS] 11/08/24 21:00 11/09/24 08:37 DC 11/08/24 21:15 7.5 MLS/HR Magnesium Hydroxide (Milk Of Magnesium 30ml) 30 ml DAILY PRN PO CONSTIPATION 11/07/24 14:00 12/07/24 13:59 Magnesium Sulfate 50 ml @ 12.5 mls/hr AD PRN IV MAG LEVEL LESS THAN 2.0 11/07/24 14:00 12/07/24 13:59 11/09/24 05:59 12.5 MLS/HR Metoprolol Tartrate (loprESSOR) 12.5 mg BID PO 11/09/24 09:00 11/11/24 09:39 DC Metoprolol Tartrate (loprESSOR) 50 mg BID PO 11/04/24 21:00 11/07/24 13:38 DC 11/06/24 20:38 50 MG Midodrine (PROAMatine 5 MG TABLET) 10 mg TID PO 11/09/24 21:00 11/11/24 06:58 DC 11/10/24 20:07 10 MG Midodrine (PROAMatine 5 MG TABLET) 15 mg TID PO 11/11/24 09:00 12/11/24 08:59 11/22/24 08:02 15 MG Montelukast Sodium (SinguLAIR) 10 mg HS PO 11/08/24 21:00 12/08/24 20:59 11/21/24 21:12 10 MG Morphine Sulfate (morPHINE 2MG SYG) 0.5 mg Q2H PRN IV MODERATE PAIN (4-6) 11/07/24 14:00 11/08/24 13:59 DC Morphine Sulfate (morPHINE 2MG SYG) 1 mg Q2H PRN IV SEVERE PAIN (7-10) 11/07/24 14:00 11/08/24 13:59 DC Morphine Sulfate (morPHINE 4MG SYG) 2 mg Q4H PRN IVP SEVERE PAIN (7-10) 11/03/24 21:00 11/07/24 13:38 DC 11/04/24 15:49 2 MG Nitroglycerin (Nitroglycerin 1gm Oint) 0.5 inch Q8H TD 11/03/24 21:00 11/07/24 13:38 DC 11/07/24 05:46 0.5 INCH Nitroglycerin/ Dextrose 0 ml @ 0 mls/hr AD IV 11/07/24 14:00 11/10/24 13:59 DC Norepinephrine Bitartrate 250 ml @ 0 mls/hr AD PRN IV TITRATE 11/07/24 11:00 11/07/24 14:02 DC Norepinephrine Bitartrate 250 ml @ 0 mls/hr AD PRN IV POST-OP CARDIOVASCULAR ORDERS 11/07/24 14:00 11/12/24 13:59 DC 11/09/24 17:09 5.6 MLS/HR Norepinephrine Bitartrate 250 ml @ 0 mls/hr PROTOCOL IV 10/2/25 18:30 12/12/24 18:29 11/13/24 08:42 2 MLS/HR Ondansetron HCl (zoFRAN 4MG INJ) 4 mg Q6H PRN IV NAUSEA/VOMITING 11/03/24 21:00 11/07/24 14:00 DC Ondansetron HCl (zoFRAN 4MG INJ) 4 mg Q6H PRN IV NAUSEA/VOMITING 11/07/24 14:00 12/07/24 13:59 11/09/24 21:50 4 MG Pantoprazole Sodium (PROTonix 40MG INJ) 40 mg BID IVP 11/08/24 09:00 12/08/24 08:59 11/22/24 08:01 40 MG Pharmacy Profile Note (Pharmacy Communication) 1 each ONCE MISC 11/13/24 09:00 11/13/24 08:57 DC Piperacillin Sod/ Tazobactam Sod (Zosyn 3.375gm+NS 50ml) 3.375 gm Q8H IV 11/09/24 10:00 11/09/24 09:38 DC Piperacillin Sod/ Tazobactam Sod (Zosyn 3.375gm+NS 50ml) 3.375 gm Q8H IV 11/09/24 10:00 11/19/24 09:59 DC 11/19/24 02:20 3.375 GM Polyethylene Glycol (MIRalax 3350 17 GM POWD.PACK) 17 gm DAILY PO 11/09/24 09:00 12/09/24 08:59 11/19/24 08:46 17 GM Potassium Phosphate 250 ml @ 42 mls/hr AD PRN IV LOW PHOS LEVEL 11/07/24 14:00 12/07/24 13:59 11/08/24 07:22 42 MLS/HR Potassium Chloride 100 ml @ 100 mls/hr AD PRN IV HYPOKALEMIA 11/07/24 14:00 12/07/24 13:59 11/21/24 04:58 100 MLS/HR Potassium Chloride (K-Dur/Klor-Con 20meq) 20 meq AD PRN PO POTASSIUM PROTOCOL 11/14/24 00:30 12/14/24 00:29 11/22/24 08:02 20 MEQ Potassium Chloride (KCl 10% Elixir 20meq/15ml) 20 meq AD PRN PO POTASSIUM PROTOCOL 11/14/24 00:30 12/14/24 00:29 11/21/24 08:34 20 MEQ Propofol 100 ml @ 0 mls/hr AD PRN IV SEDATION 11/07/24 14:00 11/11/24 13:59 DC Sodium Bicarbonate (Sodium Bicarb 50meq 50ml Vial) 50 meq AD PRN IV OTHER[SEE DOSING INSTRUCTIONS] 11/07/24 14:00 11/10/24 13:59 DC 11/08/24 00:54 50 MEQ Sodium Chloride 250 ml @ 0 mls/hr Q0M IV 11/18/24 10:00 12/18/24 09:59 11/18/24 10:13 250 MLS/HR Sodium Chloride 500 ml @ 0 mls/hr AD IV 11/07/24 14:00 12/07/24 13:59 11/10/24 00:41 3 MLS/HR Sodium Chloride 1,000 ml @ 10 mls/hr ONCE IV 11/07/24 14:00 11/08/24 13:59 DC 11/07/24 20:11 10 MLS/HR Sodium Chloride 1,000 ml @ 100 mls/hr Q10H IV 11/06/24 12:30 11/06/24 15:29 DC Sodium Chloride (NS Flush 10ml) 10 ml Q8H PRN IVP IV LINE FLUSH 11/07/24 14:00 12/07/24 13:59 Sucralfate (Carafate) 1 gm TID PO 11/08/24 21:00 12/08/24 20:59 11/22/24 08:02 1 GM Tramadol HCl (UltRAM) 25 mg Q6H PRN PO MODERATE PAIN (4-6) 11/07/24 14:00 11/09/24 08:37 DC Tramadol HCl (UltRAM) 50 mg Q6H PRN PO SEVERE PAIN (7-10) 11/07/24 14:00 11/09/24 08:37 DC 11/08/24 23:30 50 MG Vitamin B Complex (Vitamin B-12) 1,000 mcg DAILY IM 11/07/24 09:00 11/13/24 08:59 DC 11/12/24 09:03 1,000 MCG Vitamin B Complex (Vitamin B-12) 1,000 mcg DAILY PO 11/14/24 09:00 12/14/24 08:59 11/22/24 08:02 1,000 MCG DIAGNOSTICS / RADIOLOGY: [ ] ASSESSMENT: Coronary artery disease, POA, s/p CABG 3v and redo sternotomy with redo of graft failure now s/p CABG with 4v Postop acute anemia requiring transfusion Acute kidney injury Hyperlipidemia, POA Hypothyroidism, POA Peripheral artery disease, suspected Carotid artery stenosis PLAN: Coronary artery disease, POA s/p CABG 3v and redo sternotomy with redo of graft failure now s/p CABG with 4v * Administer aspirin 325 mg p.o. now and then continue aspirin 81 mg p.o. daily * Troponin every 6 hours, serial troponin levels are 9--11. * Supplemental oxygen as needed to maintain SpO2 greater than 94% * Monitor for recurrence of chest pain, arrhythmias, or hemodynamic changes * Electrocardiogram was done which is normal. * A 2D Echo has been ordered due to patients history of chest pain on exertion and rest. * A cardiology consult has been placed for evaluation of CAD in patient with exertional chest pain and vascular disease. 11/04/24 * Echocardiogram was done which revealed aortic valve: trileaflet, mildly sclerotic, and opens well. * Pending Coronary CTA reports. * Lipid panels has been ordered to assess Cardiovascular risks. Results unremarkable. * In coronary CT angiography there is mixed calcified and noncalcified plaque in the proximal LAD with 80-90% stenosis. Left circumflex coronary artery: Normal caliber, nondominant and gives rise to a large OM branch. There is mixed calcified and noncalcified plaque in the mid LCx with 80-90% stenosis. * CAD-RAD of 4B. * Left heart catheterization with selective right and left coronary angiography was performed which showed critical left main disease. Severe ostial RCA stenosis. 11/06/24 * He complaints of headache 8/10 of intensity after the administration of Nitroglycerin. Tylenol has been administered. Closely monitoring the patient. * Cardiac catheterization demonstrated a very tight left main lesion and the patient is referred for surgical revascularization. * Patient is POD 14 S/P CABG, patient is being managed in the ICU per protocol. * Recent ABG shows lactic acid is 1.21. * epinephrine drip continues at 0.08 mcg/kg/min. * His impella setting is decreased to P4. planning to further wean off. * We will continue to follow Cardiology and critical care recommendations. * He is on heparin drip and off lovenox. * Hematology saw the patient and they recommended to start folic acid, vitamin B12, ordered SPEP, UPEP, free light chains. kappa light chain - 203, Lambda light chain -29.5. They think that the patient might be having hemolytic anemia which could be the reason for his graft clotting after surgery. * Cardiology plan to wean him of the pressors then impella. Peripheral vascular disease, Suspected * Patient has history of exertional bilateral leg pain * Diminished peripheral pulses * A SERA has been ordered due to the patients complaint of bilateral lower extremity claudication, and numbness/tingling in bilateral lower extremities. * Clear aspirin 81 mg daily and statin 40mg * Encouraged supervised exercise therapy for claudication * Counseled on continued smoking cessation 11/04/24 Peripheral Neuropathy * Vitamin B12 has been ordered to rule out peripheral neuropathy.on 11/06/24, 11/17/24 * Complained of numbness and tingling in his limbs. * Vitamin B12 level was measured which showed [id number]. * Patient has been started on vitamin B12 supplement 1000 mcg for 6 days. Carotid artery stenosis * Presence of bilateral carotid bruit on exam, suspicion for significant stenosis * Carotid Duplex ultrasound has been done, awaiting reports * Risk factor modification: Smoking cessation, BP control, glycemic control. 11/04/24 * Carotid artery ultrasound showed Bilateral ICA/CCA ratio more than 4.0 suggesting more than 70% stenosis. 11/05/24 * Cardiology recommended CT/MR angiogram when stable from surgical standpoint Hyperlipidemia * Continue home statin therapy atorvastatin 40 mg * Reinforce low-cholesterol, heart healthy diet (limit saturated fats, increase fiber, fruits and vegetables) * Encouraged regular physical activity as tolerated * Monitor lipid panel * Outpatient follow up with PCP/Cardiology for long-term lipid management and cardiovascular risks reduction Supportive measures * Start patient on GI prophylaxis * DVT prophylaxis * Monitor morning labs CBC and BMP daily * He is on clear liquid diet Hypothyroidism * Continue home dose of levothyroxine at 125 mcg daily * TSH 7.13 and Free T3 1.64. Postop acute anemia requiring transfusion - Patient's hemoglobin on 11/18 is 9. Patient has normocytic anemia - His iron panel from 11/17 showed low iron and low percentage saturation. - As per Hematology recommendations, patient was given IV iron sucrose today. - Follow up with morning CBC. ATTESTATION BY PHYSICIAN I have seen and examined the patient. I reviewed the documentation, medical decision making, and treatment plan as noted by the resident physician above. I agree with the findings and plan of care. ALISA POLLARD MD, MUHAMMAD H MD Nov 22, 2024 14:02
--- NOTE | 2024-11-22 20:35 | PN ---
[facility] PROGRESS NOTE Date Patient Seen: Nov 22, 2024 Time of Visit: 11:00 Supervising Physician: Yuri Petit MD Primary Care Physician: Self Referral Outpatient Specialists: [ ] Inpatient Consults: PEG, Dr Jacobo, Dr Wellington , Dr Meza PROBLEM LIST: Cardiogenic shock SCAI stage C requiring MCS with IMpella 5.5 MvCAD s/p CABG x 3+1 w/ redo on 11/07/24 Postop acute anemia requiring transfusion ELSA Hyperlipidemia Sclerotic nodule on the non coronary cusp on 2D echo Normal ventricular diastolic function with LVEF of 60-65% on 2D echo 11/05/24 Former smoker Graves disease Obesity INTERVAL HISTORY: Patient is awake alert and oriented x3. Continues with the Impella support of P4 and epinephrine at 0.08 mcg/kg per minute. Laboratories unremarkable with white count normal H&H stable platelet count of 641. Chemistries shows creatinine of 1.3 GFR of 60 glucose 144 mg/dL. He is currently on room air in no apparent respiratory distress. Chest x-ray with no acute cardiopulmonary process, lines appear in good position including Impella and central line to r ight IJ. We will continue follow CV surgery recommendations. REVIEW OF SYSTEMS: 12 point ROS reviewed with patient. Pertinent positives mentioned above. Otherwise negative. PHYSICAL EXAM: GENERAL: alert, weak, awake oriented x 3 HEENT: EOMI, Sclera non icteric, moist mucosa NECK: Supple, no JVD, trachea midline right IJ. Subclavian Impella 5.5 LUNGS: Rhonchi to right lower lobes. No wheezes HEART: Regular rate and rhythm. Normal S1 and S2, without murmurs mid incision line tenderness. Dressing clean dry and intact. ABD: Abdomen soft, nontender. Bowel sounds present EXT: No clubbing cyanosis or edema. Left femoral sheath. NEURO: Alert and oriented to person, follows commands Vital Signs (last 8hr) Date Time Temp Pulse Resp B/P (MAP) Pulse Ox O2 Delivery O2 Flow Rate FiO2 11/22/24 18:42 84 18 11/22/24 18:42 84 18 N/A Room Air 21 11/22/24 18:30 82 18 95 97/54 (68) 11/22/24 18:15 88 18 96 119/79 (92) 11/22/24 18:00 89 10 96 87/57 (67) 11/22/24 17:45 83 10 96 106/62 (77) 11/22/24 17:30 80 18 96 109/72 (84) 11/22/24 17:15 87 19 95 102/43 (62) 11/22/24 17:00 88 18 98 100/54 (69) 11/22/24 16:45 84 18 98 107/62 (77) 11/22/24 16:30 80 18 96 111/68 (82) 11/22/24 16:22 98.4 11/22/24 16:15 74 13 95 118/73 (88) 11/22/24 16:00 80 18 94 114/72 (86) 11/22/24 16:00 96 Room Air* 0 21 11/22/24 15:45 81 18 95 123/74 (90) 11/22/24 15:30 79 18 95 125/75 (92) 11/22/24 15:15 81 18 95 127/89 (102) 11/22/24 15:00 84 18 96 127/76 (93) 11/22/24 14:45 83 18 96 135/76 (95) 11/22/24 14:30 76 18 96 100/65 (77) 11/22/24 14:15 88 18 95 97/57 (70) 11/22/24 14:00 82 18 96 105/72 (83) 11/22/24 13:45 88 18 95 97/67 (77) 11/22/24 13:30 76 18 96 105/65 (78) 11/22/24 13:15 79 16 96 91/59 (70) 11/22/24 13:00 79 18 94 104/61 (75) 11/22/24 12:45 79 18 93 102/64 (77) LABS: Hematology Labs: Test 11/22/24 04:47 Range/Units White Blood Count 10.3 4.8-10.8 K/uL Red Blood Count 3.30 L 4.50-6.20 MIL/uL Hemoglobin 10.2 L 14.0-18.0 g/dL Hematocrit 33.0 L 42-54 % Mean Corpuscular Volume 100.0 H 79-99 fL Mean Corpuscular Hemoglobin 30.9 27.0-33.0 pg Mean Corpuscular Hemoglobin Concent 30.9 L 32.0-36.0 g/dL Red Cell Distribution Width 14.6 11.0-15.5 % Platelet Count 641 H 130-400 K/uL Mean Platelet Volume 8.9 7.5-10.5 fL Immature Granulocyte % (Auto) 1.7 H 0-1 % Neutrophils (%) (Auto) 66.4 40.0-77.0 % Lymphocytes (%) (Auto) 19.3 L 21.0-51.0 % Monocytes (%) (Auto) 8.1 3.0-13.0 % Eosinophils (%) (Auto) 3.4 0.0-8.0 % Basophils (%) (Auto) 1.1 0.0-5.0 % Neutrophils # (Auto) 6.9 1.8-7.7 K/uL Lymphocytes # (Auto) 2.0 1.0-4.8 K/uL Monocytes # (Auto) 0.8 0.1-1.0 K/uL Eosinophils # (Auto) 0.35 0.00-0.70 K/uL Basophils # (Auto) 0.11 0.00-0.20 K/uL Absolute Immature Granulocyte (auto 0.18 0-1 K/uL Nucleated Red Blood Cells 0.0 0.0-0.19 % Red Blood Cell Morphology See comments Chemistry Labs: Test 11/22/24 04:47 11/21/24 04:11 Range/Units Sodium Level 138 136-145 mmol/L Potassium Level 3.9 3.5-5.1 mmol/L Chloride Level 100 L 101-111 mmol/L Carbon Dioxide Level 25 21-32 mmol/L Blood Urea Nitrogen 10 7-18 mg/dL Creatinine 1.3 0.5-1.3 mg/dL Glomerular Filtration Rate Calc 60 >90 mL/min Random Glucose 144 H 70-105 mg/dL Total Calcium 8.7 8.5-10.1 mg/dL Magnesium Level 2.30 1.80-2.40 mg/dL Coagulation Labs: Test 11/22/24 01:01 Range/Units Activated Partial Thromboplast Time 63.0 H 26.3-35.5 SEC DIAGNOSTICS / RADIOLOGY RESULTS: [ ] PLAN Following Cardiothoracic Surgeons postop protocol Neurovascular checks per protocol Weaning Impella per CTS I&Os Cardiac diet Telemetry PT/OT Continue bowel regimen Heme-Onc recommendations Continue IS Q 1 hour while awake. NEURO: Minimize central acting medications as possible. Fall Precautions. Well lighted room through the day and minimize interruptions through the night to prevent acute delirium. PULMONARY: Supplemental 02 as needed Titrate Fio2 to keep Spo2 > or = 90% DuoNebs and CPT as needed IS hourly while awake for pulmonary hygiene Out of bed to chair as tolerated VAP Bundle Bipap 12/6 fio2 50% RT to titrate FiO2 as needed to maintain O2 above 92% CARDIOVASCULAR: Follow hemodynamics. Titrate vasopressor to keep MAP >65 or systolic blood pressure >95mmHg DIPS: Epi LINES: Central venous catheter right IJ Impella 5.5 Chest tube A line Daniel catheter GI & NUTRITION: NPO for now Aspirations precautions Prokinetic agents and laxatives as needed KIDNEYS & ELECTROLYTES: Strict monitoring of intake and output Daily weights Avoid nephrotoxic agents Monitor electrolytes and replace as needed Goal urine output of 30mL/hr or 0.5mL/kg/hr Urine output 2 L in last 24 hours Chest tube drained 400 mL to lateral side Mediastinal drain 90 mL with I&O balance positive 230 mL ENDOCRINE: Maintain blood glucose between 100-180 at all times. Insulin sliding scale for blood glucose management INFECTIOUS DISEASE: Trend temperature. Nichols-culture if febrile. Micro: [ ] MRSA negative Antibiotics: [ ] Ancef HEMATOLOGY & COAGULATION: Monitor H&H. Keep Hgb > 7 Transfuse 1 unit of PRBC for Hgb < 7 Transfuse 1 pack of platelets of platelets < 20, 000 Watch for any signs and symptoms of bleeding SKIN: Pressure ulcer prevention per facility protocol Rehab: PT/OT Prophylaxis: GI: [ Protonix 40 mg IV b.i.d.] DVT: Heparin per CV Code Status: Full Resuscitation Disposition: [ TBD C Total critical care time 45 minutes, patient remains critical requiring pressors, Impella support. Time excludes any educational time or procedures performed ATTESTATION BY PHYSICIAN The patient has been seen and evaluated, the case has been discussed with the REGISTRAR ASSISTANT, I agree with the clinical findings and plan of care. Yuri Petit MD, [facility] Nov 22, 2024 20:35
[2024-11-23] VITALS (65 sets, daily range): BP systolic 81–138; BP diastolic 45–88; PULSE 75–100; RESP 9–82; TEMP 97.5–98.6; O2SAT 7–97
[2024-11-23 06:51] LABS: NUCLEATED RED BLOOD CELLS 0.0 % (0.0-0.19); PLATELET COUNT (AUTO) 605.0 K/uL (130-400); RED BLOOD CELL COUNT(AUTO) 3.19 MIL/uL (4.50-6.20); RED CELL DISTRIBUTION WIDTH 14.6 % (11.0-15.5); WHITE BLOOD COUNT (AUTO) 8.8 K/uL (4.8-10.8)
[2024-11-23 07:02] LABS: CREATININE 1.2 mg/dL (0.5-1.3); GLOMERULAR FILTR. RATE CALC 66.0 mL/min (>90); GLUCOSE,RANDOM 125.0 mg/dL (70-105); SODIUM SERUM 136.0 mmol/L (136-145); UREA NITROGEN, BLOOD 11.0 mg/dL (7-18)
[2024-11-23] MEDS: ALBUMIN (HUMAN) 5% 250 ML IV SCH (08:55)
[2024-11-23] MEDS: ALBUMIN (HUMAN) 5% 250 ML IV ONE (08:56)
--- NOTE | 2024-11-23 08:56 | PN ---
[facility] CARDIOLOGY PROGRESS NOTE Date Patient Seen: Nov 23, 2024 Time of Visit: 08:49 Interval History: No acute events overnight , the patient became severely orthostatic during physical therapy , with systolic blood pressure in the 60-70s , chest X ray t sara appears clear , no volume overload . Physical Examination: GENERAL: No acute distress. HEAD: Normal with no signs of head trauma. EYES: PERRLA, EOMI, conjunctiva and sclera normal. ENT: Hearing grossly intact, normal oropharynx. NECK: Supple without JVD. There is no tenderness, lymphadenopathy, or masses. No thyromegaly. Normal carotid upstrokes without bruits. LUNGS: Clear breath sounds bilaterally. No wheezes, or rhonchi.chest tubes are in HEART: Normal rate and rhythm. Normal S1 and S2 without murmurs, gallop or rub. VASC: Peripheral pulses +2 bilaterally. ABD: Bowel sounds normal, soft, nontender, no masses, no organomegaly. No audible bruits. : Not examined LYMPH: No lymphadenopathy noted. EXT: No clubbing, cyanosis or edema. SKIN: No rashes or lesions noted. NEURO: Awake, alert, and oriented x3. No focal sensory or strength deficits noted. Laboratory: [ ] Hematology Labs: Test 11/23/24 06:43 11/22/24 04:47 Range/Units White Blood Count 8.8 4.8-10.8 K/uL Red Blood Count 3.19 L 4.50-6.20 MIL/uL Hemoglobin 9.9 L 14.0-18.0 g/dL Hematocrit 31.6 L 42-54 % Mean Corpuscular Volume 99.1 H 79-99 fL Mean Corpuscular Hemoglobin 31.0 27.0-33.0 pg Mean Corpuscular Hemoglobin Concent 31.3 L 32.0-36.0 g/dL Red Cell Distribution Width 14.6 11.0-15.5 % Platelet Count 605 H 130-400 K/uL Mean Platelet Volume 9.1 7.5-10.5 fL Nucleated Red Blood Cells 0.0 0.0-0.19 % Immature Granulocyte % (Auto) 1.7 H 0-1 % Neutrophils (%) (Auto) 66.4 40.0-77.0 % Lymphocytes (%) (Auto) 19.3 L 21.0-51.0 % Monocytes (%) (Auto) 8.1 3.0-13.0 % Eosinophils (%) (Auto) 3.4 0.0-8.0 % Basophils (%) (Auto) 1.1 0.0-5.0 % Neutrophils # (Auto) 6.9 1.8-7.7 K/uL Lymphocytes # (Auto) 2.0 1.0-4.8 K/uL Monocytes # (Auto) 0.8 0.1-1.0 K/uL Eosinophils # (Auto) 0.35 0.00-0.70 K/uL Basophils # (Auto) 0.11 0.00-0.20 K/uL Absolute Immature Granulocyte (auto 0.18 0-1 K/uL Red Blood Cell Morphology See comments Chemistry Labs: Test 11/23/24 06:43 Range/Units Sodium Level 136 136-145 mmol/L Potassium Level 3.9 3.5-5.1 mmol/L Chloride Level 100 L 101-111 mmol/L Carbon Dioxide Level 27 21-32 mmol/L Blood Urea Nitrogen 11 7-18 mg/dL Creatinine 1.2 0.5-1.3 mg/dL Glomerular Filtration Rate Calc 66 >90 mL/min Random Glucose 125 H 70-105 mg/dL Total Calcium 8.7 8.5-10.1 mg/dL Coagulation Labs: Test 11/23/24 00:25 Range/Units Activated Partial Thromboplast Time 56.0 H 26.3-35.5 SEC Diagnostics / Radiology: [Copy/Paste Echos/Imaging Report here] Impression and Plan: [Unstable angina pectoris Abnormal CT coronary angiogram 11/05/2024 demonstrating a CAD-RADs score of 4B mixed calcified and noncalcified plaque in the left main with 50% stenosis, 80- 90% stenosis in the proximal LAD and 80-90% stenosis in mid left circumflex Critical left main and ostial RCA stenosis by cardiac catheterization 11/06/2024 S/p CABG with initial graft failure converted to Impella supported redo (CHILD- LAD, SVG-OM2, SVG-RCA and SVG-LAD) on 11/07/[address] Meza LVEF of 60-65% by 2D echocardiogram 11/05/2024 Mild ischemic cardiomyopathy with an LVEF of 40-45% by 2D echocardiogram 11/12/2024 Bilateral ICA disease with >70% stenosis by Doppler on 11/04/2024 Transaminitis, improved Thrombocytopenia, improved Hyperlipidemia CAD s/p PTCA to unknown vessel approximately 30 years ago Ex-smoker of 1 PPD with cessation 2 months ago Graves disease S/p CABG with initial graft failure converted to Impella supported redo (CHILD- LAD, SVG-OM2, SVG-RCA and SVG-LAD) on 11/07/[address] Derrick Patel at [facility] -The patient is maintained on Epinephrine and Heparin infusions -The patient is not a candidate for beta-betty therapy until weaned off of Epinephrine and if hemodynamically stable. -The patient was noted with severe orhotstatic hypotension during PT . Continue Midodrine 15mg TID. -Administer 250 ml of N/S IV x 1 and Albumin 5 % IV x 1 and monitor response -Attempt to wean off Impella mechanical support. -Continue Aspirin 81 mg daily, Plavix 75 mg daily, Atorvastatin 40 mg q.h.s., and Lasix 20 mg p.o. every 12 hours -Continue management per Cardiothoracic surgery -PT/OT Carotid artery disease Carotid US 11/05: Mild intimal thickening in the bilateral carotid arteries and their branches. Bilateral ICA/CCA ratio is more than 4.0 suggesting more than 70% stenosis. Raised velocities in the bilateral external and internal carotid arteries. -Recommend CT/MR angiogram when stable from surgical standpoint -Continue Aspirin 81 mg daily and Atorvastatin 40 mg q.h.s. ATTESTATION BY PHYSICIAN I have seen and examined the patient, reviewed the above documentation, participated in medical decision making, made necessary modifications, and agree with the treatment plan as documented by my mid-level provider above. MD JUAN Caldwell,KELVIN Lee MD Nov 23, 2024 08:56
--- NOTE | 2024-11-23 11:13 | PN ---
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 He denies chest pain palpitations or s hortness for breath. He has been having occasional orthostatic hypotension when out of bed to chair. Continues with the Impella support of P4 and epinephrine at 0.08 mcg/kg per minute. Labs - white count normal, Hb - 9.9, platelet count of 605. Chemistries shows creatinine of 1.2 GFR of 11 glucose 125 mg/dL. He is currently on room air in no apparent respiratory distress. Chest x-ray with no acute cardiopulmonary process, lines appear in good position including Impella and central line to right IJ. We will continue follow CV surgery recommendations. REVIEW OF SYSTEMS: 12 point ROS reviewed with patient. Pertinent positives mentioned above. Otherwise negative. PHYSICAL EXAM: GENERAL: alert, weak, awake oriented x 3 HEENT: EOMI, Sclera non icteric, moist mucosa NECK: Supple, no JVD, trachea midline right IJ. Subclavian Impella 5.5 LUNGS: Rhonchi to right lower lobes. No wheezes HEART: Regular rate and rhythm. Normal S1 and S2, without murmurs mid incision line tenderness. Dressing clean dry and intact. ABD: Abdomen soft, nontender. Bowel sounds present EXT: No clubbing cyanosis or edema. Left femoral sheath. NEURO: Alert and oriented to person, follows commands Vital Signs (last 8hr) Date Time Temp Pulse Resp B/P (MAP) Pulse Ox O2 Delivery O2 Flow Rate FiO2 11/23/24 11:09 88 18 11/23/24 11:09 88 18 N/A Room Air 21 11/23/24 09:15 100 39 97 11/23/24 09:00 92 19 95 21 97/65 (76) 11/23/24 09:00 97.9 11/23/24 08:30 96 Room Air* 0 21 11/23/24 08:30 86 25 97 114/75 (88) 11/23/24 08:15 97 21 97 112/69 (83) 11/23/24 08:00 98 24 97 21 123/64 (83) 11/23/24 07:45 99 27 97 103/63 (76) 11/23/24 07:30 81 20 95 113/66 (82) 11/23/24 07:15 79 22 94 106/64 (78) 11/23/24 07:00 80 23 95 21 105/68 (80) 11/23/24 06:45 83 17 95 11/23/24 06:23 80 18 11/23/24 06:22 80 18 N/A Room Air 21 11/23/24 04:25 80 14 96 99/47 (64) 11/23/24 04:11 83 20 96 81/57 (65) 11/23/24 04:00 97.9 11/23/24 04:00 95 Room Air* 0 21 11/23/24 03:57 89 31 98 96/57 (70) 11/23/24 03:40 87 14 96 110/59 (76) 11/23/24 03:26 81 95 99/47 (64) LABS: Hematology Labs: Test 11/23/24 06:43 11/22/24 04:47 Range/Units White Blood Count 8.8 4.8-10.8 K/uL Red Blood Count 3.19 L 4.50-6.20 MIL/uL Hemoglobin 9.9 L 14.0-18.0 g/dL Hematocrit 31.6 L 42-54 % Mean Corpuscular Volume 99.1 H 79-99 fL Mean Corpuscular Hemoglobin 31.0 27.0-33.0 pg Mean Corpuscular Hemoglobin Concent 31.3 L 32.0-36.0 g/dL Red Cell Distribution Width 14.6 11.0-15.5 % Platelet Count 605 H 130-400 K/uL Mean Platelet Volume 9.1 7.5-10.5 fL Nucleated Red Blood Cells 0.0 0.0-0.19 % Immature Granulocyte % (Auto) 1.7 H 0-1 % Neutrophils (%) (Auto) 66.4 40.0-77.0 % Lymphocytes (%) (Auto) 19.3 L 21.0-51.0 % Monocytes (%) (Auto) 8.1 3.0-13.0 % Eosinophils (%) (Auto) 3.4 0.0-8.0 % Basophils (%) (Auto) 1.1 0.0-5.0 % Neutrophils # (Auto) 6.9 1.8-7.7 K/uL Lymphocytes # (Auto) 2.0 1.0-4.8 K/uL Monocytes # (Auto) 0.8 0.1-1.0 K/uL Eosinophils # (Auto) 0.35 0.00-0.70 K/uL Basophils # (Auto) 0.11 0.00-0.20 K/uL Absolute Immature Granulocyte (auto 0.18 0-1 K/uL Red Blood Cell Morphology See comments Chemistry Labs: Test 11/23/24 06:43 Range/Units Sodium Level 136 136-145 mmol/L Potassium Level 3.9 3.5-5.1 mmol/L Chloride Level 100 L 101-111 mmol/L Carbon Dioxide Level 27 21-32 mmol/L Blood Urea Nitrogen 11 7-18 mg/dL Creatinine 1.2 0.5-1.3 mg/dL Glomerular Filtration Rate Calc 66 >90 mL/min Random Glucose 125 H 70-105 mg/dL Total Calcium 8.7 8.5-10.1 mg/dL Coagulation Labs: Test 11/23/24 00:25 Range/Units Activated Partial Thromboplast Time 56.0 H 26.3-35.5 [facility] / RADIOLOGY RESULTS: [[place] [address] [address] IMAGING REPORT Signed PATIENT: CLARE KERR MR#: [id number] : 1955 SEX: M AGE: 69 LOCATION: 2CH ORDER 0 STATUS: ADM IN REPORT#: [id number] SERVICE 9 REASON: impella ORDERING PHYSICIAN: TYSON DIOR MD PROCEDURE: ECHO FU LD - ECHO 2-D F/U-LTD APPROVED REPORT EXAM: LIMITED Two-dimensional and M-mode echocardiogram. INDICATION ICD: follow up impella 2D Dimensions LVED Vol(simp.) 65.3 mL LVES Vol(simp.) 40.6 mL LVEF(%, simp.) 38 % Deformation Strain Apical 4 -7.8 % Apical 2 -8.7 % Apical 3 -7.6 % Global Strain -8.0 % Left Ventricle Impella device present and is appears well placed, measuring approximately 5.3 cm from aortic annulus. Left ventricular cavity size is normal. Apical cap hypokinesis. Severe anteroseptal, and inferoeptal hypokinesis. GLS map severely abnormal with GLS of -8%. LVEF is 35-40%. LVEF biplane is 37%. Conclusion Impella device present and is appears well placed, measuring approximately 5.3 cm from aortic annulus. Left ventricular cavity size is normal. Apical cap hypokinesis. Severe anteroseptal, and inferoeptal hypokinesis. GLS map severely abnormal with GLS of -8%. LVEF is 35-40%. LVEF biplane is 37%. DICTATED BY: MARTY GARCIA MD DATE: 11/23/24927 ELECTRONICALLY SIGNED BY: MARTY GARCIA MD DATE: 11/23/241951 ] [place] [address] IMAGING REPORT Signed PATIENT: CLARE KERR MR#: [id number] : 1955 SEX: M AGE: 69 LOCATION: 2CH ORDER 54 STATUS: ADM IN REPORT#: [id number] SERVICE 53 REASON: picc line placement ORDERING PHYSICIAN: BRYON THOMPSON MD PROCEDURE: CXR1VW - CHEST 1VW EXAM: XR Chest, 1 View. CLINICAL HISTORY: Peripherally inserted central catheter placement and evaluation for pneumothorax. COMPARISON: Computed radiography chest, single view from 11/23/2024. FINDINGS: LUNGS: The lungs show no focal airspace consolidation. The examination is limited by mild patient rotation, which may subtly affect the apparent cardiomediastinal contours and assessment of subtle findings. PLEURAL SPACES: No pleural effusion or pneumothorax. HEART: The heart size is normal. The cardiomediastinal silhouette is within normal size and contour limits for this projection. BONES: Median sternotomy changes are present. No acute osseous abnormality is identified. LINES AND TUBES: A right side PICC line is present with the tip at the cavoatrial junction. Previously noted left-sided chest tube and right IJ central line are not visualized on the current examination. IMPRESSION: 1. No acute cardiopulmonary process. 2. Right-sided PICC line with tip at the cavoatrial junction, in expected position. 3. Previously seen left-sided chest tube is no longer present. 4. Several stable chronic and incidental findings are noted, as detailed in the body of the report. 5. Technical limitation: mild rotation on this single-view examination. /[place] DICTATED BY: JOSSY BIGGS MD DATE: 11/23/242058 ELECTRONICALLY SIGNED BY: JOSSY BIGGS MD DATE: 11/23/242058 PLAN Following Cardiothoracic Surgeons postop protocol Neurovascular checks per protocol Weaning Impella per CTS I&Os Cardiac diet Telemetry PT/OT Continue bowel regimen Heme-Onc recommendations Continue IS Q 1 hour while awake. NEURO: Minimize central acting medications as possible. Fall Precautions. Well lighted room through the day and minimize interruptions through the night to prevent acute delirium. PULMONARY: Supplemental 02 as needed Titrate Fio2 to keep Spo2 > or = 90% DuoNebs and CPT as needed IS hourly while awake for pulmonary hygiene Out of bed to chair as tolerated VAP Bundle Bipap 12/6 fio2 50% RT to titrate FiO2 as needed to maintain O2 above 92% CARDIOVASCULAR: Follow hemodynamics. Titrate vasopressor to keep MAP >65 or systolic blood pressure >95mmHg DIPS: Epi LINES: Central venous catheter right IJ Impella 5.5 Chest tube A line Daniel catheter GI & NUTRITION: NPO for now Aspirations precautions Prokinetic agents and laxatives as needed KIDNEYS & ELECTROLYTES: Strict monitoring of intake and output Daily weights Avoid nephrotoxic agents Monitor electrolytes and replace as needed Goal urine output of 30mL/hr or 0.5mL/kg/hr Urine output 2 L in last 24 hours Chest tube drained 400 mL to lateral side Mediastinal drain 90 mL with I&O balance positive 230 mL ENDOCRINE: Maintain blood glucose between 100-180 at all times. Insulin sliding scale for blood glucose management INFECTIOUS DISEASE: Trend temperature. Nichols-culture if febrile. Micro: [ ] MRSA negative Antibiotics: [ ] Ancef HEMATOLOGY & COAGULATION: Monitor H&H. Keep Hgb > 7 Transfuse 1 unit of PRBC for Hgb < 7 Transfuse 1 pack of platelets of platelets < 20, 000 Watch for any signs and symptoms of bleeding SKIN: Pressure ulcer prevention per facility protocol Rehab: PT/OT Prophylaxis: GI: [ Protonix 40 mg IV b.i.d.] DVT: Heparin per CV Code Status: Full Resuscitation Disposition: [ TBD C Total critical care time 45 minutes, patient remains critical requiring pressors, Impella support. Time excludes any educational time or procedures performed ATTESTATION BY PHYSICIAN The patient has been seen and evaluated, the case has been discussed with the SUP[employer]W LEADER, I agree with the clinical findings and plan of care. Eric Petit MD, [facility] Nov 23, 2024 11:13
[2024-11-23 12:36] LABS: INR 1.08 (0.85-1.15)
--- NOTE | 2024-11-23 13:41 | PN ---
[facility] PROGRESS NOTE Date of Service: Nov 23, 2024 Time of Service: 13:41 SUBJECTIVE: Mr. Valadez a 68-year-old male that was seen and examined today on 11/03/2024. Patient reports that he came to the emergency department with a chief complaint of chest pain. Onset was two or three years ago. He had similar repeated episodes months back which resolved on its own. Today's episode began at 11:00 a.m. Location is midsternal. Duration is on and off. Character is described as "neck someone is pushing a knuckle into the center of my chest. The chest pain did not radiate to shoulder, neck or jaw. "There was no alleviating factors. There was no aggravating factors. Patient reports that symptoms seemingly resolve on their own. He denies nausea, vomiting, fever and any other associated symptoms. Patient denies any associated shortness of breath. Patient has a past medical history of hyperlipidemia and Graves disease. He has been taking atorvastatin and Synthroid as his home medications. Today in the emergency department WBC 5.8, hemoglobin 12.9 platelets 197. His chemistries were within normal limits sodium 140, potassium 4.2, blood urea nitrogen 15 and creatinine 1.0. His electrocardiogram showed normal sinus rhythm. Patient will be admitted for further evaluation and related recommendations in Med-Surg. 11/04/24 Patient was evaluated at the bedside in ED-09. He reports that he is having chest pain that comes and goes. The patient reports having 2 episodes of chest pain in the last hour. He denies associated symptoms such as shortness of breath, palpitation, diaphoresis, dizziness, nausea or syncope. He does however complain of muscle pain in his lower limbs described as a dull aching discomfort that begins in the hip region that is worsened with movement. The patient complains of tingling and numbness in his feet bilaterally. No fever, chills or recent infection reported. Appetite and oral intake are normal. No other acute complaints at this time. On physical exam, a systolic murmur was auscultated over the aortic area. Bilateral carotid bruits are present. Lower extremities are cool to the touch with diminished pedal pulses. Patient reports bilateral leg muscle pain with exertion (suggestive of claudication), and chronic numbness and tingling in the feet. Patient reports recently quitting smoking tobacco for 2 months. He had a 1 pack a day smoking history since 1968. The [facility] and denies following with a kelp cutter. The patient says his chest pain has been ongoing for the past 3 years, and that it gets worse with exertion and at rest. 11/05/24 Patient was evaluated at the bedside room 231. He was hemodynamically stable. Hi symptoms has improved significantly. He doesn't complain of chest pain, shortness of breath and any other associated symptoms. Echocardiogram was done which revealed aortic valve: trileaflet, mildly sclerotic, and opens well. Carotid artery ultrasound showed Bilateral ICA/CCA ratio more than 4.0 suggesting more than 70% stenosis. 11/06/24 Patient was evaluated at the bedside room 231. He was hemodynamically stable. Hi symptoms has improved significantly. He doesn't complain of chest pain, shortness of breath and any other associated symptoms. In coronary CT angiography there is mixed calcified and noncalcified plaque in the proximal LAD with 80-90% stenosis. Left circumflex coronary artery: Normal caliber, nondominant and gives rise to a large OM branch. There is mixed calcified and noncalcified plaque in the mid LCx with 80-90% stenosis. CAD-RAD of 4B. Left heart catheterization with selective right and left coronary angiography was performed which showed critical left main disease. 11/07/24 Patient was evaluated at the bedside room 231. He was hemodynamically stable. He doesn't complain of chest pain, shortness of breath and any other associated symptoms. He complaints of headache 8/10 of intensity after the administration of Nitroglycerin. Cardiac catheterization demonstrated a very tight left main lesion and the patient is referred for surgical revascularization. As per Dr Meza: Surgery is planned for today. 11/08/24: Patient was seen and evaluated this morning at bedside. The patient is POD 1 s/p CABG. Patient is currently being managed in the ICU. The patients most recent ABG shows a pH of 7.43, ABG PCO2 47, ABG PO2 77.9, ABG HCO3 30.8. Recent ABG shows improving lactic acid, from 8 to 3.85. The patients chemistry reveals a sodium level 157, potassium level 3.4, creatinine 1.9, BUN 19, GFR 38, phosphorous 2.2. Liver enzymes are trending up, with an ALT level at 325 and an AST level at 869. The patients home medication of Synthroid has been restarted. Chest x-ray ordered today, results pending. We will continue to follow recommendations from critical care team, and cardiology. 11/09/2024: Patient is seen and evaluated in the room 213. The patient is POD 2 s/p CABG. Patient is currently being managed in the ICU. He is complaining of pain. His vitals are in the normal range. His Hb is 11.1, WBC is 19.1, Plt is 115, sodium is 154, chloride is 113, glucose is 122. His recent ABG shows that pH is 7.472, pO2 is 80.1, bicarb is 30.4, Hb is 11.4, lactic acid is 1.63. His chest X-ray on 11/08 showed improved aeration within the left perihilar and left basilar regions. As per nurse he is having intervention confusion, stopped lidocaine and they also weaning on pressors norepinephrine and epinephrine. The drain output from left anterior chest is 20ml, mediastinal lateral is 160ml, mediastinal mediastinal is 300ml, right anterior chest is 160 ml. We will continue to follow recommendations from critical care team, and cardiology. 11/10/2024: Patient was seen and evaluated this morning at bedside. The patient is POD 3 s/p CABG. Patient is currently being managed in the ICU. He is not having any symptoms today. His vitals are in the normal range. His labs are normal except for Hb is 10.1, WBC is 14.7, plt is 85, sodium is 147, AST is 156, ALT is 95, APTT is 25.5. ABG shows that his pH is 7.4, lactate is 1.22, bicarb is 31. The drain output from left anterior chest is 170 ml, mediastinal mediastinal is 130ml. We will continue to follow recommendations from critical care team, and cardiology. 11/11/2024: Patient was seen and evaluated this morning at bedside. The patient is POD 4 s/p CABG. He is not having any symptoms today. His vitals are in the normal range. His labs are normal except for hemoglobin is 9.7, WBC is 11.7, platelet is 106, glucose is 107, AST is 87, ALT is 62. ABG shows pH is 7.468, lactic acid is 1.03. We will continue to follow recommendations from critical care team, and cardiology. 11/12/2024: Patient was seen and evaluated in the room 218. The patient is POD 5 s/p CABG. He is having dizziness and ache in the left shoulder. His vitals are in the normal range. His labs are normal except for hemoglobin 9.6, platelets is 94, AST 75. ABG shows pH 7.487, lactic acid 1.2. Currently he is not on any pressors. Cardiovascular surgery tried to wean Impella. They decreased impella setting to P4 but his blood pressure is low so they went back to P5. Cardiovascular surgery also increased his midodrine dose to 15mg. His chest X- ray showed mild pulmonary vascular congestion. He had a bowel movement and good urine output. He is using incentive spirometry well. We will continue to follow recommendations from the critical Care team and Cardiology. 11/13/2024: Patient was seen and evaluated in the room 218. The patient is POD 6 s/p CABG. He is having dizziness and generalized ache. His vitals are in the normal range. His labs are normal except for Hb is 8.9, calcium is 7.4, glucose is 140. His chest x-ray showed that mild borderline cardiomegaly with median sternotomy with cardiac and aspiration procedure, support lines in satisfactory position, no evidence of airspace consolidation or pulmonary venous congestion. He is restarted on norepinephrine and epinephrine drip and impella at P5 as he is hypotensive and has bradycardia. The nurse told me that she will consult anesthesia for changing the arterial line as his line is not working. He is on heparin drip and off of lovenox. The drain output from left anterior chest is 260 ml, mediastinal mediastinal is 60ml. Hematology was consulted as he is in a hypercoagulable state. 11/14/2024: Patient was seen and evaluated in the room 218. The patient is POD 7 s/p CABG. His vital signs are in the normal range except for blood pressure is 88/64. His labs are normal except for hemoglobin is 8.8, APTT is 62.4, glucose is 133, calcium is 7.5, AST is 61. Chest X-ray showed mild cardiomegaly with median sternotomy with cardiac revascularization procedure, support lines are in satisfactory position. His impella is increased to P7 as he is hypotensive and bradycardic. He is on epinephrine. The drain output from left anterior chest is 80ml and from mediastinal mediastinal is 20ml. Hematology saw the patient and they recommended to start folic acid, vitamin B12, ordered SPEP, UPEP, free light chains. They think that the patient might be having hemolytic anemia which could be the reason for his graft clotting after surgery. 11/15/2024: He was evaluated at the bedside this morning. The patient is POD 8 s/p CABG. He is on Impella support with blood pressure 89/64 with map 72. Remarkable lab is for hemoglobin 9.2. Chest x-ray revealed mildly improved right lower lobe airspace opacity with stable cardiac support device and median sternotomy. His MPOA is encouraged to P8 and weaned off the pressors. Hematology recommending Tatiana test to rule out autoimmune hemolytic anemia. Hematology, CT surgery, critical care and cardiology on the board. Rest of the plan as discussed below. 11/16/2024: He was evaluated at the bedside this morning. The patient is POD 9 s/p CABG. Impella support has been weaned to P5 today. As per Dr. Khan, epi will be turned on at 0.03 mcg/kg/min and Impella performance level will be decreased to p4 tomorrow morning. Today, patient's BP is at 102/62, 79bpm and he is on 3L O2 nasal cannula. He is pending direct tatiana test, SPEP, UPEP and Free Light Chain assay as per hematology. His Hb from today is 8.9. Chest Tube drainage is at 201 ml. Hematology, CT surgery, critical care and cardiology on the board. 11/17/2024: He was evaluated at the bedside this morning. The patient is POD 10 s/p CABG. Impella support has been weaned to P4 today. Patient is currently on epinephrine 0.03 mcg/kg/minute as per Dr. Khan. Patient is receiving Lasix for diuresis and her urine output in the past 24 hours has been for 4050 mL. Mediastinal mediastinal chest tube drainage is 40 mL. Left anterior chest tube drainage is 104 mL. Hematology, CT surgery, critical care and cardiology on the board. 11/18/2024: He was evaluated at the bedside this morning. The patient is POD 11 s/p CABG. Impella support continues on P4 today. Plan is to wean off further tomorrow. Patient is currently on epinephrine 0.05 mcg/kg per minute. His blood pressure is running low, 88/48. Patient is receiving Lasix for diuresis and his urine output in the past 24 hours has been for 3400 mL. Mediastinal mediastinal chest tube drainage is 60 mL. Left anterior chest tube drainage is 140 mL. Hematology, CT surgery, critical care and cardiology on the board. As per Hematology recommendations, IV iron sucrose was ordered since iron panel showed low iron, and low percentage saturation. 11/19/2024: Patient was seen and evaluated at the bedside this morning. The patient is POD 12 s/p CABG. Impella support continues on P4 today and there is a plan to wean it off further, awaiting cardiothoracic surgery recommendations. Patient is currently maintained on epinephrine 0.03 mcg/kg per minute. His blood pressure is still running low, 92/44. He passed stool twice yesterday, after 7 days of constipation. Hematology, CT surgery, critical care and cardiology on the board. 11/20/2024: Patient was seen and evaluated at bedside this morning. He continues on P4 support. He is vitally stable with BP 101/56. WBCs are trending down from 12.4 K to 11.1 K. His TSH was elevated, 7.13. Free T3 test showed 1.64. We will continue to follow recommendations from Cardiothoracic surgery, Cardiology, and critical Care teams. 11/21/24: Patient was seen and evaluated at bedside this morning in room 218. The patient is POD 14 s/p CABG He continues on P4 support planning to be weaned off to lower settings if he continues to do better as per cardiothoracic surgery recommendations. Blood pressure on arterial line is 97/52 (67). WBCs are trending down from 11.1 to 10.0. His TSH was elevated, 7.13. Free T3 test showed 1.64. We will continue to follow recommendations from Cardiothoracic surgery, Cardiology, and critical Care teams. 11/22/24: Patient was seen and evaluated at bedside this morning in room 218. The patient is POD 15 s/p CABG. He continues on P4 support today as weaning off has been unsuccessful so far. He is currently on 0.08 epi support. He is undergoing diuresis as well. He reports no bowel movement for the past several days. We will continue to follow recommendations from Cardiothoracic surgery, Cardiology, and critical Care teams. 11/23/2024: Patient was seen and evaluated at the bedside this morning in room 218. This is postop day 16 status post CABG. He had no acute events overnight and was sitting comfortably in his chair during my visit. Patient continues on Impella P for support today. His vasopressor support is reducing today at 0.06 mcg. Patient denies chest pain, shortness of breath however has mild cough. Plan is to slowly taper off epinephrine and Impella. We will continue to follow recommendations from Cardiothoracic surgery, Cardiology and critical Care teams. REVIEW OF SYSTEMS CONSTITUTIONAL: Pain in his left shoulder, improved No fever, chills, or night sweats. NEUROLOGICAL: No headache no sensory and motor deficit. CARDIOVASCULAR: Dizziness, improved Denies any exertional angina, dyspnea on exertion, palpitations. PULMONARY: Denies any shortness of breath, cough, phlegm/sputum, hemoptysis, pleuritic chest pain. GASTROINTESTINAL: Constipation. Denies nausea, vomiting. Denies pain, tenderness around the abdomen. GENITOURINARY: Denies frequency, urgency, nocturia, hematuria or incontinence. PHYSICAL EXAM GENERAL APPEARANCE: The patient is alert, awake and oriented and bedbound. NEUROLOGICAL: No sensory and motor deficits. CHEST: left anterior chest , mediastinal mediastinal drains are present. Dressing is clean Normal chest expansion. LUNGS: Normal vesicular breath sound. Absence of any rales, rhonchi or any wheezing. CARDIOVASCULAR: Systolic murmur heard over aortic area. Bilateral carotid bruits heard. No JVD. ABDOMEN: Soft nontender, and nondistended. There is no rebound, voluntary guarding, or rigidity. No abdominal bruit heard. GENITOURINARY: No suprapubic tenderness. No costovertebral angle tenderness. EXTREMITIES: Limbs are non-edematous. Vital Signs (last 8hr) Date Time Temp Pulse Resp B/P (MAP) Pulse Ox O2 Delivery O2 Flow Rate FiO2 11/23/24 11:09 88 18 11/23/24 11:09 88 18 N/A Room Air 21 11/23/24 09:15 100 39 97 11/23/24 09:00 92 19 95 21 97/65 (76) 11/23/24 09:00 97.9 11/23/24 08:30 96 Room Air* 0 21 11/23/24 08:30 86 25 97 114/75 (88) 11/23/24 08:15 97 21 97 112/69 (83) 11/23/24 08:00 98 24 97 21 123/64 (83) 11/23/24 07:45 99 27 97 103/63 (76) 11/23/24 07:30 81 20 95 113/66 (82) 11/23/24 07:15 79 22 94 106/64 (78) 11/23/24 07:00 80 23 95 21 105/68 (80) 11/23/24 06:45 83 17 95 11/23/24 06:23 80 18 11/23/24 06:22 80 18 N/A Room Air 21 LABS: Laboratory: Test 11/23/24 06:43 11/23/24 00:25 11/22/24 04:47 Range/Units White Blood Count 8.8 4.8-10.8 K/uL Red Blood Count 3.19 L 4.50-6.20 MIL/uL Hemoglobin 9.9 L 14.0-18.0 g/dL Hematocrit 31.6 L 42-54 % Mean Corpuscular Volume 99.1 H 79-99 fL Mean Corpuscular Hemoglobin 31.0 27.0-33.0 pg Mean Corpuscular Hemoglobin Concent 31.3 L 32.0-36.0 g/dL Red Cell Distribution Width 14.6 11.0-15.5 % Platelet Count 605 H 130-400 K/uL Mean Platelet Volume 9.1 7.5-10.5 fL Nucleated Red Blood Cells 0.0 0.0-0.19 % Sodium Level 136 136-145 mmol/L Potassium Level 3.9 3.5-5.1 mmol/L Chloride Level 100 L 101-111 mmol/L Carbon Dioxide Level 27 21-32 mmol/L Blood Urea Nitrogen 11 7-18 mg/dL Creatinine 1.2 0.5-1.3 mg/dL Glomerular Filtration Rate Calc 66 >90 mL/min Random Glucose 125 H 70-105 mg/dL Total Calcium 8.7 8.5-10.1 mg/dL Prothrombin Time 11.4 9.6-11.6 SEC Prothromb Time International Ratio 1.08 0.85-1.15 Activated Partial Thromboplast Time 56.0 H 26.3-35.5 SEC Immature Granulocyte % (Auto) 1.7 H 0-1 % Neutrophils (%) (Auto) 66.4 40.0-77.0 % Lymphocytes (%) (Auto) 19.3 L 21.0-51.0 % Monocytes (%) (Auto) 8.1 3.0-13.0 % Eosinophils (%) (Auto) 3.4 0.0-8.0 % Basophils (%) (Auto) 1.1 0.0-5.0 % Neutrophils # (Auto) 6.9 1.8-7.7 K/uL Lymphocytes # (Auto) 2.0 1.0-4.8 K/uL Monocytes # (Auto) 0.8 0.1-1.0 K/uL Eosinophils # (Auto) 0.35 0.00-0.70 K/uL Basophils # (Auto) 0.11 0.00-0.20 K/uL Absolute Immature Granulocyte (auto 0.18 0-1 K/uL Red Blood Cell Morphology See comments Current Medications Medications (Trade) Dose Ordered Sig/Brittany Route PRN Reason Start Time Stop Time Status Last Admin Dose Admin Acetaminophen (TYLenol 325MG TAB) 650 mg Q4H PRN PO Temp >38.3C(AFTER EXTUBATION) 11/07/24 14:00 12/07/24 13:59 Acetaminophen (TYLenol 325MG TAB) 650 mg Q6H PRN PO TEMPERATURE GREATER THAN 101.5 11/03/24 21:00 11/07/24 14:00 DC 11/06/24 23:00 650 MG Acetaminophen (TYLenol 325MG TAB) 650 mg Q6H PRN PO MILD PAIN (1-3) 11/07/24 14:00 12/07/24 13:59 11/16/24 11:37 650 MG Acetaminophen (TYLenol 650MG SUPPOSITORY) 650 mg Q4H PRN RC Temp >38.3C WHILE INTUBATED 11/07/24 14:00 12/07/24 13:59 Acetaminophen (acetaMINOPHEN) 1,000 mg Q6H IVPB 11/09/24 09:00 11/12/24 08:59 DC 11/12/24 02:11 1,000 MG Acetaminophen (acetaMINOPHEN) 1,000 mg Q6H6 IV 11/07/24 18:00 11/08/24 17:59 DC 11/08/24 18:08 1,000 MG Albumin Human 250 ml @ 0 mls/hr AD IV 11/23/24 09:00 11/28/24 08:59 11/23/24 08:55 250 MLS/HR Albumin Human 250 ml @ 0 mls/hr AD PRN IV IF HEMODYNAMICALLY UNSTABLE 11/07/24 14:00 11/08/24 09:57 DC 11/08/24 09:57 125 MLS/HR Albumin Human 250 ml @ 0 mls/hr AD STAT IV 11/15/24 13:09 11/15/24 13:12 DC 11/15/24 13:28 250 MLS/HR Aminocaproic Acid 34041 mg/Sodium Chloride 310 ml @ 25 mls/hr AD IV 11/07/24 14:00 11/08/24 02:23 DC Aminocaproic Acid 45844 mg/Sodium Chloride 480 ml @ 0 mls/hr AD PRN IV BLEEDING CONTROL 11/07/24 11:00 11/07/24 14:03 DC Aspirin (Aspirin 81mg Ec Tab) 81 mg DAILY PO 11/04/24 09:00 12/04/24 08:59 11/23/24 08:46 81 MG Atorvastatin Calcium (LIPItor 40MG) 40 mg HS PO 11/03/24 21:00 11/03/24 20:40 DC Atorvastatin Calcium (LIPItor 40MG) 40 mg HS PO 11/03/24 21:00 11/09/24 07:45 DC 11/07/24 20:15 40 MG Atorvastatin Calcium (LIPItor 40MG) 40 mg HS PO 11/10/24 21:00 12/10/24 20:59 11/22/24 19:40 40 MG Calcium Gluconate (Calcium Gluc 1gm Vial) 1 gm AD PRN IV HYPOCALCEMIA 11/08/24 09:00 11/09/24 07:45 DC 11/08/24 16:36 1 GM Calcium Gluconate 1 gm/Sodium Chloride 60 ml @ 200 mls/hr AD PRN IV HYPOCALCEMIA 11/07/24 14:00 12/07/24 13:59 11/21/24 06:13 200 MLS/HR Cefazolin Sodium (Ancef) 2 gm ONCALL IVPB 11/06/24 22:00 11/07/24 14:00 DC Cefazolin Sodium (Ancef) 2 gm Q8H IVPB 11/07/24 19:00 11/08/24 11:01 DC 11/08/24 11:15 2 GM Clopidogrel Bisulfate (plaVIX 75MG) 75 mg DAILY PO 11/08/24 14:00 12/08/24 13:59 11/23/24 08:47 75 MG Dexmedetomidine/ Sodium Chloride (PRECEdex 400MCG/ 100ML-NS) 400 mcg PROTOCOL IV 11/07/24 14:00 12/07/24 13:59 Dextrose (D50w) 50 ml AD PRN IV HYPOGLYCEMIA PROTOCOL 11/07/24 14:00 12/07/24 13:59 Dextrose/Sodium Bicarbonate 1,025 ml @ 10 mls/hr Q24H IV 11/07/24 19:30 12/07/24 19:29 11/22/24 19:39 10 MLS/HR Docusate Sodium (COLace 100MG CAP) 100 mg BID PO 11/07/24 21:00 11/08/24 10:11 DC 11/07/24 20:15 100 MG Docusate Sodium (COLace 100MG CAP) 100 mg BID PO 11/10/24 09:00 12/10/24 08:59 11/23/24 08:47 100 MG Docusate Sodium (COLace LIQUID 100MG/10ML) 100 mg BID NG 11/08/24 10:30 11/09/24 21:53 DC 11/09/24 20:47 100 MG Enoxaparin Sodium (Lovenox) 30 mg DAILY SQ 11/10/24 09:00 11/13/24 08:38 DC 11/12/24 09:03 30 MG Enoxaparin Sodium (Lovenox) 40 mg DAILY SQ 11/04/24 09:00 11/07/24 13:38 DC 11/05/24 09:06 40 MG Epinephrine HCl 10 mg/Sodium Chloride 250 ml @ 13.948 mls/ hr AD PRN IV POST-OP CARDIOVASCULAR ORDERS 11/07/24 14:00 11/12/24 13:59 DC 11/09/24 19:48 7 MLS/HR Epinephrine HCl 10 mg/Sodium Chloride 250 ml @ 0 mls/hr AD PRN IV TITRATE 11/07/24 11:00 11/07/24 14:02 DC Epinephrine HCl 10 mg/Sodium Chloride 250 ml @ 0 mls/hr PROTOCOL IV 11/12/24 23:30 12/12/24 23:29 11/22/24 19:30 11.7 MLS/HR Famotidine (Pepcid 20mg Vial) 20 mg BID IV 11/07/24 21:00 11/08/24 08:59 DC 11/08/24 08:11 20 MG Famotidine (Pepcid 20mg Tab) 20 mg DAILY PO 11/04/24 09:00 11/07/24 13:38 DC 11/05/24 09:06 20 MG Folic Acid (FOLic ACID 1 MG TABLET) 1 mg DAILY PO 11/14/24 09:00 12/14/24 08:59 11/23/24 08:46 1 MG Furosemide (LASix 20MG TAB) 20 mg Q12H PO 11/09/24 09:00 12/09/24 08:59 11/22/24 19:40 20 MG Furosemide (LASix 20MG VIAL) 20 mg Q12H IV 11/08/24 09:00 11/09/24 08:59 DC 11/08/24 20:23 20 MG Glucagon (Glucagon 1mg Kit) 1 mg AD PRN IM HYPOGLYCEMIA PROTOCOL 11/07/24 14:00 12/07/24 13:59 Guaifenesin/ Dextromethorphan (RobiTUSSin DM 200/20MG 10ML) 15 ml Q6H PRN PO COUGH 11/19/24 15:00 12/19/24 14:59 11/19/24 14:49 15 ML Heparin Sodium (Porcine) (HEParin 5,000 UNIT VIAL) *calculation based on ACTUAL B... AD PRN IV HEPARIN PROTOCOL 11/13/24 09:30 12/13/24 09:29 Heparin Sodium/ Dextrose 250 ml @ 0 mls/hr Q6H IV 11/13/24 09:30 12/13/24 09:29 11/23/24 05:51 14.3 MLS/HR Hydralazine HCl (APRESOLine 20MG INJ) 10 mg Q6H PRN IV For:SBP above 160;DBP above 90 11/03/24 21:00 11/07/24 13:38 DC Insulin Human Regular 100 unit/ Sodium Chloride 100 ml @ 0 mls/hr AD IV 11/07/24 14:00 11/09/24 13:59 DC 11/08/24 12:30 4 MLS/HR Ipratropium [place] (AtrovENT UD) 0.5 MG [id number] IH 11/08/24 12:00 12/08/24 11:59 11/23/24 11:09 0.5 MG Lactulose (Constulose 20gm/ 30ml Udcup) 20 gm BID PRN PO CONSTIPATION 11/03/24 21:00 11/07/24 14:00 DC Lactulose (Constulose 20gm/ 30ml Udcup) 20 gm BID PRN PO CONSTIPATION 11/07/24 14:00 12/07/24 13:59 11/18/24 06:21 20 GM Levothyroxine Sodium (SYNTHroid 125MCG TAB) 125 mcg SYN PO 11/09/24 06:30 12/09/24 06:29 11/23/24 05:51 125 MCG Lidocaine HCl/ Dextrose 250 ml @ 0 mls/hr PROTOCOL PRN IV OTHER [SEE ORDER COMMENTS] 11/08/24 21:00 11/09/24 08:37 DC 11/08/24 21:15 7.5 MLS/HR Magnesium Hydroxide (Milk Of Magnesium 30ml) 30 ml DAILY PRN PO CONSTIPATION 11/07/24 14:00 12/07/24 13:59 Magnesium Sulfate 50 ml @ 12.5 mls/hr AD PRN IV MAG LEVEL LESS THAN 2.0 11/07/24 14:00 12/07/24 13:59 11/09/24 05:59 12.5 MLS/HR Metoprolol Tartrate (loprESSOR) 12.5 mg BID PO 11/09/24 09:00 11/11/24 09:39 DC Metoprolol Tartrate (loprESSOR) 50 mg BID PO 11/04/24 21:00 11/07/24 13:38 DC 11/06/24 20:38 50 MG Midodrine (PROAMatine 5 MG TABLET) 10 mg TID PO 11/09/24 21:00 11/11/24 06:58 DC 11/10/24 20:07 10 MG Midodrine (PROAMatine 5 MG TABLET) 15 mg TID PO 11/11/24 09:00 12/11/24 08:59 11/23/24 08:47 15 MG Montelukast Sodium (SinguLAIR) 10 mg HS PO 11/08/24 21:00 12/08/24 20:59 11/22/24 19:40 10 MG Morphine Sulfate (morPHINE 2MG SYG) 0.5 mg Q2H PRN IV MODERATE PAIN (4-6) 11/07/24 14:00 11/08/24 13:59 DC Morphine Sulfate (morPHINE 2MG SYG) 1 mg Q2H PRN IV SEVERE PAIN (7-10) 11/07/24 14:00 11/08/24 13:59 DC Morphine Sulfate (morPHINE 4MG SYG) 2 mg Q4H PRN IVP SEVERE PAIN (7-10) 11/03/24 21:00 11/07/24 13:38 DC 11/04/24 15:49 2 MG Nitroglycerin (Nitroglycerin 1gm Oint) 0.5 inch Q8H TD 11/03/24 21:00 11/07/24 13:38 DC 11/07/24 05:46 0.5 INCH Nitroglycerin/ Dextrose 0 ml @ 0 mls/hr AD IV 11/07/24 14:00 11/10/24 13:59 DC Norepinephrine Bitartrate 250 ml @ 0 mls/hr AD PRN IV TITRATE 11/07/24 11:00 11/07/24 14:02 DC Norepinephrine Bitartrate 250 ml @ 0 mls/hr AD PRN IV POST-OP CARDIOVASCULAR ORDERS 11/07/24 14:00 11/12/24 13:59 DC 11/09/24 17:09 5.6 MLS/HR Norepinephrine Bitartrate 250 ml @ 0 mls/hr PROTOCOL IV 11/12/24 18:30 12/12/24 18:29 11/13/24 08:42 2 MLS/HR Ondansetron HCl (zoFRAN 4MG INJ) 4 mg Q6H PRN IV NAUSEA/VOMITING 11/03/24 21:00 11/07/24 14:00 DC Ondansetron HCl (zoFRAN 4MG INJ) 4 mg Q6H PRN IV NAUSEA/VOMITING 11/07/24 14:00 12/07/24 13:59 11/09/24 21:50 4 MG Pantoprazole Sodium (PROTonix 40MG INJ) 40 mg BID IVP 11/08/24 09:00 12/08/24 08:59 11/23/24 08:46 40 MG Pharmacy Profile Note (Pharmacy Communication) 1 each ONCE MISC 11/13/24 09:00 11/13/24 08:57 DC Piperacillin Sod/ Tazobactam Sod (Zosyn 3.375gm+NS 50ml) 3.375 gm Q8H IV 11/09/24 10:00 11/09/24 09:38 DC Piperacillin Sod/ Tazobactam Sod (Zosyn 3.375gm+NS 50ml) 3.375 gm Q8H IV 11/09/24 10:00 11/19/24 09:59 DC 11/19/24 02:20 3.375 GM Polyethylene Glycol (MIRalax 3350 17 GM POWD.PACK) 17 gm DAILY PO 11/09/24 09:00 12/09/24 08:59 11/23/24 08:48 17 GM Potassium Phosphate 250 ml @ 42 mls/hr AD PRN IV LOW PHOS LEVEL 11/07/24 14:00 12/07/24 13:59 11/08/24 07:22 42 MLS/HR Potassium Chloride 100 ml @ 100 mls/hr AD PRN IV HYPOKALEMIA 11/07/24 14:00 12/07/24 13:59 11/21/24 04:58 100 MLS/HR Potassium Chloride (K-Dur/Klor-Con 20meq) 20 meq AD PRN PO POTASSIUM PROTOCOL 11/14/24 00:30 12/14/24 00:29 11/22/24 08:02 20 MEQ Potassium Chloride (KCl 10% Elixir 20meq/15ml) 20 meq AD PRN PO POTASSIUM PROTOCOL 11/14/24 00:30 12/14/24 00:29 11/21/24 08:34 20 MEQ Propofol 100 ml @ 0 mls/hr AD PRN IV SEDATION 11/07/24 14:00 11/11/24 13:59 DC Sodium Bicarbonate (Sodium Bicarb 50meq 50ml Vial) 50 meq AD PRN IV OTHER[SEE DOSING INSTRUCTIONS] 11/07/24 14:00 11/10/24 13:59 DC 11/08/24 00:54 50 MEQ Sodium Chloride 250 ml @ 0 mls/hr Q0M IV 11/18/24 10:00 12/18/24 09:59 11/18/24 10:13 250 MLS/HR Sodium Chloride 500 ml @ 0 mls/hr AD IV 11/07/24 14:00 12/07/24 13:59 11/10/24 00:41 3 MLS/HR Sodium Chloride 1,000 ml @ 10 mls/hr ONCE IV 11/07/24 14:00 11/08/24 13:59 DC 11/07/24 20:11 10 MLS/HR Sodium Chloride 1,000 ml @ 100 mls/hr Q10H IV 11/06/24 12:30 11/06/24 15:29 DC Sodium Chloride (NS Flush 10ml) 10 ml Q8H PRN IVP IV LINE FLUSH 11/07/24 14:00 12/07/24 13:59 Sucralfate (Carafate) 1 gm TID PO 11/08/24 21:00 12/08/24 20:59 11/23/24 08:52 1 GM Tramadol HCl (UltRAM) 25 mg Q6H PRN PO MODERATE PAIN (4-6) 11/07/24 14:00 11/09/24 08:37 DC Tramadol HCl (UltRAM) 50 mg Q6H PRN PO SEVERE PAIN (7-10) 11/07/24 14:00 11/09/24 08:37 DC 11/08/24 23:30 50 MG Vitamin B Complex (Vitamin B-12) 1,000 mcg DAILY IM 11/07/24 09:00 11/13/24 08:59 DC 11/12/24 09:03 1,000 MCG Vitamin B Complex (Vitamin B-12) 1,000 mcg DAILY PO 11/14/24 09:00 12/14/24 08:59 11/23/24 08:47 1,000 MCG DIAGNOSTICS / RADIOLOGY: [ ] ASSESSMENT: Coronary artery disease, POA, s/p CABG 3v and redo sternotomy with redo of graft failure now s/p CABG with 4v Postop acute anemia requiring transfusion Acute kidney injury Hyperlipidemia, POA Hypothyroidism, POA Peripheral artery disease, suspected Carotid artery stenosis PLAN: Coronary artery disease, POA s/p CABG 3v and redo sternotomy with redo of graft failure now s/p CABG with 4v * Administer aspirin 325 mg p.o. now and then continue aspirin 81 mg p.o. daily * Troponin every 6 hours, serial troponin levels are 9-9-12-11. * Supplemental oxygen as needed to maintain SpO2 greater than 94% * Monitor for recurrence of chest pain, arrhythmias, or hemodynamic changes * Electrocardiogram was done which is normal. * A 2D Echo has been ordered due to patients history of chest pain on exertion and rest. * A cardiology consult has been placed for evaluation of CAD in patient with exertional chest pain and vascular disease. 11/04/24 * Echocardiogram was done which revealed aortic valve: trileaflet, mildly sclerotic, and opens well. * Pending Coronary CTA reports. * Lipid panels has been ordered to assess Cardiovascular risks. Results unremarkable. * In coronary CT angiography there is mixed calcified and noncalcified plaque in the proximal LAD with 80-90% stenosis. Left circumflex coronary artery: Normal caliber, nondominant and gives rise to a large OM branch. There is mixed calcified and noncalcified plaque in the mid LCx with 80-90% stenosis. * CAD-RAD of 4B. * Left heart catheterization with selective right and left coronary angiography was performed which showed critical left main disease. Severe ostial RCA stenosis. 11/06/24 * He complaints of headache 8/10 of intensity after the administration of Nitroglycerin. Tylenol has been administered. Closely monitoring the patient. * Cardiac catheterization demonstrated a very tight left main lesion and the patient is referred for surgical revascularization. * Patient is POD 16 S/P CABG, patient is being managed in the ICU per protocol. * Epinephrine drip continues at 0.06 mcg/kg/min. * His impella setting is decreased to P4. planning to further wean off. * We will continue to follow Cardiology and critical care recommendations. * He is on heparin drip and off lovenox. * Hematology saw the patient and they recommended to start folic acid, vitamin B12, ordered SPEP, UPEP, free light chains. kappa light chain - 203, Lambda light chain -29.5. They think that the patient might be having hemolytic anemia which could be the reason for his graft clotting after surgery. * Cardiology plan to wean him of the pressors then impella. Peripheral vascular disease, Suspected * Patient has history of exertional bilateral leg pain * Diminished peripheral pulses * A SERA has been ordered due to the patients complaint of bilateral lower extremity claudication, and numbness/tingling in bilateral lower extremities. * Clear aspirin 81 mg daily and statin 40mg * Encouraged supervised exercise therapy for claudication * Counseled on continued smoking cessation 11/04/24 Peripheral Neuropathy * Vitamin B12 has been ordered to rule out peripheral neuropathy.on 11/06/24, 11/17/24 * Complained of numbness and tingling in his limbs. * Vitamin B12 level was measured which showed [id number]. * Patient has been started on vitamin B12 supplement 1000 mcg for 6 days. Carotid artery stenosis * Presence of bilateral carotid bruit on exam, suspicion for significant stenosis * Carotid Duplex ultrasound has been done, awaiting reports * Risk factor modification: Smoking cessation, BP control, glycemic control. 11/04/24 * Carotid artery ultrasound showed Bilateral ICA/CCA ratio more than 4.0 suggesting more than 70% stenosis. 11/05/24 * Cardiology recommended CT/MR angiogram when stable from surgical standpoint Hyperlipidemia * Continue home statin therapy atorvastatin 40 mg * Reinforce low-cholesterol, heart healthy diet (limit saturated fats, increase fiber, fruits and vegetables) * Encouraged regular physical activity as tolerated * Monitor lipid panel * Outpatient follow up with PCP/Cardiology for long-term lipid management and cardiovascular risks reduction Supportive measures * Start patient on GI prophylaxis * DVT prophylaxis * Monitor morning labs CBC and BMP daily * He is on clear liquid diet Hypothyroidism * Continue home dose of levothyroxine at 125 mcg daily * TSH 7.13 and Free T3 1.64. Postop acute anemia requiring transfusion - Patient's hemoglobin on 11/18 is 9. Patient has normocytic anemia - His iron panel from 11/17 showed low iron and low percentage saturation. - As per Hematology recommendations, patient was given IV iron sucrose 11/18 - Follow up with morning CBC. ATTESTATION BY PHYSICIAN I have seen and examined the patient. I reviewed the documentation, medical decision making, and treatment plan as noted by the resident physician above. I agree with the findings and plan of care. ALISA POLLARD MD, HARSHAVARDHA MD Nov 23, 2024 13:41
--- NOTE | 2024-11-23 13:59 | PN ---
Patient seen and examined, all labs and imaging have been reviewed, patient is sitting comfortably at bedside chair. Continues with the Impella, P5 Patient has clotted off his 4th a line. Anesthesia was brought into place of 5th. Hematology has also been requested to evaluate patient for his clotting. Patient is comfortable, he is reporting no pain or discomfort no chest pain or shortness of breath. No abdominal complaints. Good saturations on nasal cannula 2 L He is alert and oriented, Urine output There is plan to for removal of Impella. There is a plan to remove the chest tube. It seems this patient have a problem with orthostatic hypotension and is difficult to do physical therapy on him. PHYSICAL EXAM: GENERAL: alert, weak, awake oriented x 3 HEENT: EOMI, Sclera non icteric, moist mucosa NECK: Supple, no JVD, trachea midline right IJ. Subclavian Impella 5.5 LUNGS: Rhonchi to right lower lobes. No wheezes HEART: Regular rate and rhythm. Normal S1 and S2, without murmurs mid incision line tenderness. Dressing clean dry and intact. ABD: Abdomen soft, nontender. Bowel sounds present EXT: No clubbing cyanosis or edema. Left femoral sheath. NEURO: Alert and oriented to person, follows commands Assessment 1. Anemia. Hemoglobin level is 9.9 g/deciliter 2. Thrombocytopenia. Corrected with the platelet count 605K now. 3.CAD s/p CABG x 3+1 w/ redo on 11/07/24 Impella 5 x 5 4. ELSA 5. Hyperlipidemia 6. Sclerotic nodule on the non coronary cusp on 2D echo Normal ventricular diastolic function with LVEF of 60-65% on 2D echo 11/05/24 7. Former smoker Plan: 1.Platelet count is corrected at this time. Actually there is a reactive thrombocytosis. 2. There was hypersegmented neutrophils. This patient to Continue on folic acid 1 mg p.o. daily and vitamin B12 1000 mcg p.o. daily. 3. 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 Direct Juan was done which was negative. 4. 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 Free light chain was done which was within normal. We are waiting serial for the final report of SPEP. 5. Continue care as per cardiothoracic surgery with the planning to remove the Impella and the chest tube. 6. Patient will need physical therapy. But the patient have hypotension which is affecting his physical therapy. Vitals/Labs Vital Signs Date Time Temp Pulse Resp B/P (MAP) Pulse Ox O2 Delivery O2 Flow Rate FiO2 11/23/24 11:09 88 18 11/23/24 11:09 N/A Room Air 21 11/23/24 09:15 97 11/23/24 09:00 97.9 11/23/24 08:30 0 Laboratory Tests 11/23/24 06:43 Medications Current Medications Aspirin 325 mg ONCE ONCE PO Last administered on 11/03/24at 17:53; Start 11/03/24 at 18:00; Stop 11/03/24 at 18:01; Status DC Acetaminophen 650 mg Q6H PRN PO Last administered on 11/06/24at 23:00; Start 11/03/24 at 21:00; Stop 11/07/24 at 14:00; Status DC Aspirin 81 mg DAILY PO Last administered on 11/23/24at 08:46; Start 11/04/24 at 09:00; Stop 12/04/24 at 08:59 Atorvastatin Calcium 40 mg HS PO; Start 11/03/24 at 21:00; Stop 11/03/24 at 20:40; Status DC Enoxaparin Sodium 40 mg DAILY SQ Last administered on 11/05/24at 09:06; Start 11/04/24 at 09:00; Stop 11/07/24 at 13:38; Status DC Famotidine 20 mg DAILY PO Last administered on 11/05/24at 09:06; Start 11/04/24 at 09:00; Stop 11/07/24 at 13:38; Status DC Hydralazine HCl 10 mg Q6H PRN IV; Start 11/03/24 at 21:00; Stop 11/07/24 at 13:38; Status DC Lactulose 20 gm BID PRN PO; Start 11/03/24 at 21:00; Stop 11/07/24 at 14:00; Status DC Morphine Sulfate 2 mg Q4H PRN IVP Last administered on 11/04/24at 15:49; Start 11/03/24 at 21:00; Stop 11/07/24 at 13:38; Status DC Nitroglycerin 0.5 inch Q8H TD Last administered on 11/07/24at 05:46; Start 11/03/24 at 21:00; Stop 11/07/24 at 13:38; Status DC Ondansetron HCl 4 mg Q6H PRN IV; Start 11/03/24 at 21:00; Stop 11/07/24 at 14:00; Status DC Atorvastatin Calcium 40 mg HS PO Last administered on 11/07/24at 20:15; Start 11/03/24 at 21:00; Stop 11/09/24 at 07:45; Status DC Metoprolol Tartrate 50 mg BID PO Last administered on 11/06/24at 20:38; Start 11/04/24 at 21:00; Stop 11/07/24 at 13:38; Status DC Iohexol 35,000 mg STK-MED ONCE IV; Start 11/05/24 at 11:05; Stop 11/05/24 at 11:05; Status DC Sodium Chloride 1,000 ml @ 100 mls/hr Q10H ONCE IV Last administered on 11/05/24at 14:03; Start 11/05/24 at 13:30; Stop 11/05/24 at 23:29; Status DC Lidocaine HCl 20 ml STK-MED ONCE .ROUTE; Start 11/06/24 at 11:05; Stop 11/06/24 at 11:05; Status DC Iohexol 35,000 mg STK-MED ONCE IV; Start 11/06/24 at 11:05; Stop 11/06/24 at 11:06; Status DC Heparin Sodium (Porcine) 10,000 unit STK-MED ONCE .ROUTE; Start 11/06/24 at 11:05; Stop 11/06/24 at 11:06; Status DC Heparin Sodium/ Sodium Chloride 1,000 ml @ As Directed STK-MED ONCE IV; Start 11/06/24 at 11:06; Stop 11/06/24 at 11:06; Status DC Nitroglycerin 50 mg STK-MED ONCE .ROUTE; Start 11/06/24 at 11:06; Stop 11/06/24 at 11:06; Status DC Verapamil HCl 5 mg STK-MED ONCE .ROUTE; Start 11/06/24 at 11:06; Stop 11/06/24 at 11:06; Status DC Fentanyl Citrate 100 mcg STK-MED ONCE .ROUTE; Start 11/06/24 at 11:35; Stop 11/06/24 at 11:36; Status DC Midazolam HCl 2 mg STK-MED ONCE .ROUTE; Start 11/06/24 at 11:35; Stop 11/06/24 at 11:36; Status DC Vitamin B Complex 1,000 mcg DAILY IM Last administered on 11/12/24at 09:03; Start 11/07/24 at 09:00; Stop 11/13/24 at 08:59; Status DC Sodium Chloride 1,000 ml @ 100 mls/hr Q10H IV; Start 11/06/24 at 12:30; Stop 11/06/24 at 15:29; Status DC Cefazolin Sodium 2 gm ONCALL IVPB; Start 11/06/24 at 22:00; Stop 11/07/24 at 14:00; Status DC Epinephrine HCl 10 mg/Sodium Chloride 250 ml @ 0 mls/hr AD PRN IV; Start 11/07/24 at 11:00; Stop 11/07/24 at 14:02; Status DC Norepinephrine Bitartrate 250 ml @ 0 mls/hr AD PRN IV; Start 11/07/24 at 11:00; Stop 11/07/24 at 14:02; Status DC Aminocaproic Acid 29644 mg/Sodium Chloride 480 ml @ 0 mls/hr AD PRN IV; Start 11/07/24 at 11:00; Stop 11/07/24 at 14:03; Status DC Metoprolol Tartrate 25 mg ONCE ONCE PO Last administered on 11/07/24at 11:15; Start 11/07/24 at 11:30; Stop 11/07/24 at 11:31; Status DC Nitroglycerin/ Dextrose 1 ml @ As Directed STK-MED ONCE .ROUTE; Start 11/07/24 at 11:25; Stop 11/07/24 at 11:25; Status DC Acetaminophen 1,000 mg Q6H6 IV Last administered on 11/08/24at 18:08; Start 11/07/24 at 18:00; Stop 11/08/24 at 17:59; Status DC Aspirin 81 mg ONCE ONCE NG; Start 11/07/24 at 17:00; Stop 11/07/24 at 17:01; Status DC Docusate Sodium 100 mg BID PO Last administered on 11/07/24at 20:15; Start 11/07/24 at 21:00; Stop 11/08/24 at 10:11; Status DC Lactulose 20 gm BID PRN PO Last administered on 11/18/24at 06:21; Start 11/07/24 at 14:00; Stop 12/07/24 at 13:59 Furosemide 20 mg Q12H PO Last administered on 11/22/24at 19:40; Start 11/09/24 at 09:00; Stop 12/09/24 at 08:59 Furosemide 20 mg Q12H IV Last administered on 11/08/24at 20:23; Start 11/08/24 at 09:00; Stop 11/09/24 at 08:59; Status DC Enoxaparin Sodium 30 mg DAILY SQ Last administered on 11/12/24at 09:03; Start 11/10/24 at 09:00; Stop 11/13/24 at 08:38; Status DC Metoprolol Tartrate 12.5 mg BID PO; Start 11/09/24 at 09:00; Stop 11/11/24 at 09:39; Status DC Magnesium Hydroxide 30 ml DAILY PRN PO; Start 11/07/24 at 14:00; Stop 12/07/24 at 13:59 Dexmedetomidine/ Sodium Chloride 400 mcg PROTOCOL IV; Start 11/07/24 at 14:00; Stop 12/07/24 at 13:59 Acetaminophen 650 mg Q6H PRN PO Last administered on 11/16/24at 11:37; Start 11/07/24 at 14:00; Stop 12/07/24 at 13:59 Sodium Chloride 1,000 ml @ 10 mls/hr ONCE IV Last administered on 11/07/24at 20:11; Start 11/07/24 at 14:00; Stop 11/08/24 at 13:59; Status DC Sodium Chloride 10 ml Q8H PRN IVP; Start 11/07/24 at 14:00; Stop 12/07/24 at 13:59 Morphine Sulfate 0.5 mg Q2H PRN IV; Start 11/07/24 at 14:00; Stop 11/08/24 at 13:59; Status DC Morphine Sulfate 1 mg Q2H PRN IV; Start 11/07/24 at 14:00; Stop 11/08/24 at 13:59; Status DC Acetaminophen 650 mg Q4H PRN RC; Start 11/07/24 at 14:00; Stop 12/07/24 at 13:59 Ondansetron HCl 4 mg Q6H PRN IV Last administered on 11/09/24at 21:50; Start 11/07/24 at 14:00; Stop 12/07/24 at 13:59 Sodium Chloride 500 ml @ 0 mls/hr AD IV Last administered on 11/10/24at 00:41; Start 11/07/24 at 14:00; Stop 12/07/24 at 13:59 Nitroglycerin/ Dextrose 0 ml @ 0 mls/hr AD IV; Start 11/07/24 at 14:00; Stop 11/10/24 at 13:59; Status DC Propofol 100 ml @ 0 mls/hr AD PRN IV; Start 11/07/24 at 14:00; Stop 11/11/24 at 13:59; Status DC Norepinephrine Bitartrate 250 ml @ 0 mls/hr AD PRN IV Last administered on 11/09/24at 17:09; Start 11/07/24 at 14:00; Stop 11/12/24 at 13:59; Status DC Epinephrine HCl 10 mg/Sodium Chloride 250 ml @ 13.948 mls/ hr AD PRN IV Last administered on 11/09/24at 19:48; Start 11/07/24 at 14:00; Stop 11/12/24 at 13:59; Status DC Aminocaproic Acid 04834 mg/Sodium Chloride 310 ml @ 25 mls/hr AD IV; Start 11/07/24 at 14:00; Stop 11/08/24 at 02:23; Status DC Calcium Gluconate 1 gm/Sodium Chloride 60 ml @ 200 mls/hr AD PRN IV Last administered on 11/21/24at 06:13; Start 11/07/24 at 14:00; Stop 12/07/24 at 13:59 Magnesium Sulfate 50 ml @ 12.5 mls/hr AD PRN IV Last administered on 11/09/24at 05:59; Start 11/07/24 at 14:00; Stop 12/07/24 at 13:59 Potassium Chloride 100 ml @ 100 mls/hr AD PRN IV Last administered on 11/21/24at 04:58; Start 11/07/24 at 14:00; Stop 12/07/24 at 13:59 Potassium Phosphate 250 ml @ 42 mls/hr AD PRN IV Last administered on 11/08/24at 07:22; Start 11/07/24 at 14:00; Stop 12/07/24 at 13:59 Albumin Human 250 ml @ 0 mls/hr AD PRN IV Last administered on 11/08/24at 09:57; Start 11/07/24 at 14:00; Stop 11/08/24 at 09:57; Status DC Acetaminophen 650 mg Q4H PRN PO; Start 11/07/24 at 14:00; Stop 12/07/24 at 13:59 Insulin Human Regular 100 unit/ Sodium Chloride 100 ml @ 0 mls/hr AD IV Last administered on 11/08/24at 12:30; Start 11/07/24 at 14:00; Stop 11/09/24 at 13:59; Status DC Cefazolin Sodium 2 gm Q8H IVPB Last administered on 11/08/24at 11:15; Start 11/07/24 at 19:00; Stop 11/08/24 at 11:01; Status DC Tramadol HCl 25 mg Q6H PRN PO; Start 11/07/24 at 14:00; Stop 11/09/24 at 08:37; Status DC Tramadol HCl 50 mg Q6H PRN PO Last administered on 11/08/24at 23:30; Start 11/07/24 at 14:00; Stop 11/09/24 at 08:37; Status DC Famotidine 20 mg BID IV Last administered on 11/08/24at 08:11; Start 11/07/24 at 21:00; Stop 11/08/24 at 08:59; Status DC Sodium Bicarbonate 50 meq AD PRN IV Last administered on 11/08/24at 00:54; Start 11/07/24 at 14:00; Stop 11/10/24 at 13:59; Status DC Dextrose 50 ml AD PRN IV; Start 11/07/24 at 14:00; Stop 12/07/24 at 13:59 Glucagon 1 mg AD PRN IM; Start 11/07/24 at 14:00; Stop 12/07/24 at 13:59 Protamine Sulfate 250 mg STK-MED ONCE IV; Start 11/07/24 at 14:25; Stop 11/07/24 at 14:26; Status DC Lidocaine HCl 100 mg STK-MED ONCE .ROUTE; Start 11/07/24 at 14:25; Stop 11/07/24 at 14:26; Status DC Heparin Sodium (Porcine) 10,000 unit STK-MED ONCE .ROUTE; Start 11/07/24 at 14:26; Stop 11/07/24 at 14:26; Status DC Epinephrine HCl 1 mg STK-MED ONCE .ROUTE; Start 11/07/24 at 14:26; Stop 11/07/24 at 14:26; Status DC Sodium Bicarbonate 200 ml @ As Directed STK-MED ONCE .ROUTE; Start 11/07/24 at 14:26; Stop 11/07/24 at 14:26; Status DC Norepinephrine Bitartrate 4 mg STK-MED ONCE IV; Start 11/07/24 at 14:26; Stop 11/07/24 at 14:26; Status DC Propofol 200 mg STK-MED ONCE IV; Start 11/07/24 at 14:26; Stop 11/07/24 at 14:26; Status DC Fentanyl Citrate 1,000 mcg STK-MED ONCE IJ; Start 11/07/24 at 14:26; Stop 11/07/24 at 14:27; Status DC Midazolam HCl 2 mg STK-MED ONCE .ROUTE; Start 11/07/24 at 14:26; Stop 11/07/24 at 14:27; Status DC Rocuronium [place] 50 mg STK-MED ONCE .ROUTE; Start 11/07/24 at 14:27; Stop 11/07/24 at 14:27; Status DC Ketamine HCl 50 mg STK-MED ONCE .ROUTE; Start 11/07/24 at 14:31; Stop 11/07/24 at 14:31; Status DC Cefazolin Sodium 1 gm STK-MED ONCE .ROUTE Last administered on 11/07/24at 15:00; Start 11/07/24 at 14:55; Stop 11/07/24 at 14:56; Status DC Heparin Sodium/ Sodium Chloride 500 ml @ As Directed STK-MED ONCE IV; Start 11/07/24 at 14:57; Stop 11/07/24 at 14:57; Status DC Papaverine HCl 60 mg STK-MED ONCE .ROUTE Last administered on 11/07/24at 15:51; Start 11/07/24 at 14:57; Stop 11/07/24 at 14:57; Status DC Cefazolin Sodium 1 gm STK-MED ONCE .ROUTE Last administered on 11/07/24at 15:49; Start 11/07/24 at 15:46; Stop 11/07/24 at 15:46; Status DC Amiodarone HCl 150 mg STK-MED ONCE .ROUTE; Start 11/07/24 at 17:06; Stop 11/07/24 at 17:06; Status DC Amiodarone HCL/ Dextrose 100 ml @ As Directed STK-MED ONCE .ROUTE; Start 11/07/24 at 17:08; Stop 11/07/24 at 17:09; Status DC Cardioplegic Solution 0 ml @ As Directed STK-MED ONCE IV; Start 11/07/24 at 17:13; Stop 11/07/24 at 17:13; Status DC Heparin Sodium (Porcine) 10,000 unit STK-MED ONCE .ROUTE; Start 11/07/24 at 17:15; Stop 11/07/24 at 17:15; Status DC Sodium Bicarbonate 50 ml @ As Directed STK-MED ONCE .ROUTE; Start 11/07/24 at 17:26; Stop 11/07/24 at 17:26; Status DC Sodium Bicarbonate 200 ml @ As Directed STK-MED ONCE .ROUTE; Start 11/07/24 at 17:36; Stop 11/07/24 at 17:36; Status DC Midazolam HCl 5 mg STK-MED ONCE .ROUTE; Start 11/07/24 at 17:57; Stop 11/07/24 at 17:57; Status DC Sodium Bicarbonate 150 ml @ As Directed STK-MED ONCE .ROUTE; Start 11/07/24 at 18:06; Stop 11/07/24 at 18:06; Status DC Amiodarone HCL/ Dextrose 100 ml @ As Directed STK-MED ONCE .ROUTE; Start 11/07/24 at 18:25; Stop 11/07/24 at 18:25; Status DC Cefazolin Sodium 1 gm STK-MED ONCE .ROUTE; Start 11/07/24 at 18:43; Stop 11/07/24 at 18:43; Status DC Ketamine HCl 50 mg STK-MED ONCE .ROUTE; Start 11/07/24 at 18:56; Stop 11/07/24 at 18:56; Status DC Ephedrine Sulfate 50 mg STK-MED ONCE .ROUTE; Start 11/07/24 at 18:58; Stop 11/07/24 at 18:59; Status DC Lidocaine HCl/ Dextrose 250 ml @ As Directed STK-MED ONCE IV Last administered on 11/07/24at 20:08; Start 11/07/24 at 19:02; Stop 11/07/24 at 19:02; Status DC Dextrose/Sodium Bicarbonate 1,025 ml @ 10 mls/hr Q24H IV Last administered on 11/22/24at 19:39; Start 11/07/24 at 19:30; Stop 12/07/24 at 19:29 Calcium Gluconate 1 gm AD PRN IV Last administered on 11/08/24at 16:36; Start 11/08/24 at 09:00; Stop 11/09/24 at 07:45; Status DC Pantoprazole Sodium 40 mg BID IVP Last administered on 11/23/24at 08:46; Start 11/08/24 at 09:00; Stop 12/08/24 at 08:59 Montelukast Sodium 10 mg HS PO Last administered on 11/22/24at 19:40; Start 11/08/24 at 21:00; Stop 12/08/24 at 20:59 Ipratropium [place] 0.5 MG [id number] IH Last administered on 11/23/24at 11:09; Start 11/08/24 at 12:00; Stop 12/08/24 at 11:59 Polyethylene Glycol 17 gm DAILY PO Last administered on 11/23/24at 08:48; Start 11/09/24 at 09:00; Stop 12/09/24 at 08:59 Polyethylene Glycol 17 gm STK-MED ONCE .ROUTE; Start 11/08/24 at 10:01; Stop 11/08/24 at 10:02; Status DC Docusate Sodium 100 mg BID NG Last administered on 11/09/24at 20:47; Start 11/08/24 at 10:30; Stop 11/09/24 at 21:53; Status DC Levothyroxine Sodium 125 mcg SYN PO Last administered on 11/23/24at 05:51; Start 11/09/24 at 06:30; Stop 12/09/24 at 06:29 Clopidogrel Bisulfate 75 mg DAILY PO Last administered on 11/23/24at 08:47; Start 11/08/24 at 14:00; Stop 12/08/24 at 13:59 Sucralfate 1 gm TID PO Last administered on 11/23/24at 08:52; Start 11/08/24 at 21:00; Stop 12/08/24 at 20:59 Lidocaine HCl/ Dextrose 250 ml @ 0 mls/hr PROTOCOL PRN IV Last administered on 11/08/24at 21:15; Start 11/08/24 at 21:00; Stop 11/09/24 at 08:37; Status DC Metoclopramide HCl 5 mg ONCE ONCE IVP Last administered on 11/09/24at 00:22; Start 11/09/24 at 00:30; Stop 11/09/24 at 00:31; Status DC Acetaminophen 100 ml @ As Directed STK-MED ONCE .ROUTE; Start 11/09/24 at 07:08; Stop 11/09/24 at 07:08; Status DC Acetaminophen 1,000 mg ONCE ONCE IVPB Last administered on 11/09/24at 07:47; Start 11/09/24 at 08:00; Stop 11/09/24 at 08:01; Status DC Acetaminophen 1,000 mg Q6H IVPB Last administered on 11/12/24at 02:11; Start 11/09/24 at 09:00; Stop 11/12/24 at 08:59; Status DC Lidocaine/ Prilocaine 1 appl ONCE ONCE TP Last administered on 11/09/24at 09:49; Start 11/09/24 at 09:30; Stop 11/09/24 at 09:33; Status DC Piperacillin Sod/ Tazobactam Sod 3.375 gm Q8H IV Last administered on 11/19/24at 02:20; Start 11/09/24 at 10:00; Stop 11/19/24 at 09:59; Status DC Piperacillin Sod/ Tazobactam Sod 3.375 gm Q8H IV; Start 11/09/24 at 10:00; Stop 11/09/24 at 09:38; Status DC Midodrine 10 mg TID PO Last administered on 11/10/24at 20:07; Start 11/09/24 at 21:00; Stop 11/11/24 at 06:58; Status DC Docusate Sodium 100 mg BID PO Last administered on 11/23/24at 08:47; Start 11/10/24 at 09:00; Stop 12/10/24 at 08:59 Calcium Chloride 1,000 mg STK-MED ONCE IVP; Start 11/03/24 at 12:28; Stop 11/10/24 at 12:31; Status DC Albumin Human 50 ml @ As Directed STK-MED ONCE IV; Start 11/03/24 at 12:28; Stop 11/10/24 at 12:31; Status DC Heparin Sodium (Porcine) 10,000 unit STK-MED ONCE IV; Start 11/03/24 at 12:28; Stop 11/10/24 at 12:31; Status DC Lidocaine HCl 5 mg STK-MED ONCE IVP; Start 11/03/24 at 12:28; Stop 11/10/24 at 12:31; Status DC Magnesium Sulfate 1 gm STK-MED ONCE IM; Start 11/03/24 at 12:28; Stop 11/10/24 at 12:31; Status DC Mannitol 12.5 gm STK-MED ONCE IV; Start 11/03/24 at 12:28; Stop 11/10/24 at 12:31; Status DC Norepinephrine Bitartrate 1 mg STK-MED ONCE IV; Start 11/03/24 at 12:28; Stop 11/10/24 at 12:31; Status DC Sodium Bicarbonate 50 meq STK-MED ONCE IVP; Start 11/03/24 at 12:28; Stop 11/10/24 at 12:31; Status DC Atorvastatin Calcium 40 mg HS PO Last administered on 11/22/24at 19:40; Start 11/10/24 at 21:00; Stop 12/10/24 at 20:59 Midodrine 15 mg TID PO Last administered on 11/23/24at 08:47; Start 11/11/24 at 09:00; Stop 12/11/24 at 08:59 Lidocaine HCl 20 ml STK-MED ONCE .ROUTE Last administered on 11/12/24at 10:06; Start 11/12/24 at 09:24; Stop 11/12/24 at 09:24; Status DC Norepinephrine Bitartrate 250 ml @ 0 mls/hr PROTOCOL IV Last administered on 11/13/24at 08:42; Start 11/12/24 at 18:30; Stop 12/12/24 at 18:29 Epinephrine HCl 10 mg/Sodium Chloride 250 ml @ 0 mls/hr PROTOCOL IV Last administered on 11/22/24at 19:30; Start 11/12/24 at 23:30; Stop 12/12/24 at 23:29 Heparin Sodium (Porcine) *calculation based on ACTUAL B... AD PRN IV; Start 11/13/24 at 09:30; Stop 12/13/24 at 09:29 Heparin Sodium/ Dextrose 250 ml @ 0 mls/hr Q6H IV Last administered on 11/23/24at 05:51; Start 11/13/24 at 09:30; Stop 12/13/24 at 09:29 Pharmacy Profile Note 1 each ONCE MISC; Start 11/13/24 at 09:00; Stop 11/13/24 at 08:57; Status DC Lidocaine HCl 20 ml STK-MED ONCE .ROUTE Last administered on 11/13/24at 10:24; Start 11/13/24 at 09:10; Stop 11/13/24 at 09:11; Status DC Lidocaine HCl ONCE ONCE INJ; Start 11/13/24 at 10:00; Stop 11/13/24 at 10:01; Status DC Folic Acid 1 mg DAILY PO Last administered on 11/23/24at 08:46; Start 11/14/24 at 09:00; Stop 12/14/24 at 08:59 Vitamin B Complex 1,000 mcg DAILY PO Last administered on 11/23/24at 08:47; Start 11/14/24 at 09:00; Stop 12/14/24 at 08:59 Iron Sucrose 100 mg ONCE ONCE IV; Start 11/13/24 at 13:30; Stop 11/13/24 at 13:24; Status DC Potassium Chloride 20 meq AD PRN PO Last administered on 11/21/24at 08:34; Start 11/14/24 at 00:30; Stop 12/14/24 at 00:29 Potassium Chloride 20 meq AD PRN PO Last administered on 11/22/24at 08:02; Start 11/14/24 at 00:30; Stop 12/14/24 at 00:29 Albumin Human 250 ml @ 0 mls/hr AD STAT IV Last administered on 11/15/24at 13:28; Start 11/15/24 at 13:09; Stop 11/15/24 at 13:12; Status DC Bisacodyl 10 mg ONCE ONCE RC Last administered on 11/18/24at 10:17; Start 11/18/24 at 10:00; Stop 11/18/24 at 10:01; Status DC Sodium Chloride 250 ml @ 0 mls/hr Q0M IV Last administered on 11/18/24at 10:13; Start 11/18/24 at 10:00; Stop 12/18/24 at 09:59 Iron Sucrose 300 mg/Sodium Chloride 250 ml @ 83 mls/hr ONCE ONCE IV; Start 11/18/24 at 21:00; Stop 11/18/24 at 10:42; Status DC Iron Sucrose 300 mg/Sodium Chloride 250 ml @ 83 mls/hr ONCE ONCE IV Last administered on 11/18/24at 20:48; Start 11/18/24 at 21:00; Stop 11/19/24 at 00:00; Status DC Guaifenesin/ Dextromethorphan 15 ml Q6H PRN PO Last administered on 11/19/24at 14:49; Start 11/19/24 at 15:00; Stop 12/19/24 at 14:59 Albumin Human 250 ml @ As Directed STK-MED ONCE IV; Start 11/23/24 at 08:21; Stop 11/23/24 at 08:21; Status DC Albumin Human 250 ml @ 0 mls/hr AD IV Last administered on 11/23/24at 08:55; Start 11/23/24 at 09:00; Stop 11/28/24 at 08:59 TAINA ARZOLA MD Nov 23, 2024 13:59
--- NOTE | 2024-11-23 14:16 | PN ---
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 Continues with the Impella support of P4 and epinephrine at 0.08 mcg/kg per minute. Labs - white count normal, Hb - 9.9, platelet count of 605. Chemistries shows creatinine of 1.2 GFR of 11 glucose 125 mg/dL. He is currently on room air in no apparent respiratory distress. Chest x-ray with no acute cardiopulmonary process, lines appear in good position including Impella and central line to right IJ. We will continue follow CV surgery recommendations. REVIEW OF SYSTEMS: 12 point ROS reviewed with patient. Pertinent positives mentioned above. Otherwise negative. PHYSICAL EXAM: GENERAL: alert, weak, awake oriented x 3 HEENT: EOMI, Sclera non icteric, moist mucosa NECK: Supple, no JVD, trachea midline right IJ. Subclavian Impella 5.5 LUNGS: Rhonchi to right lower lobes. No wheezes HEART: Regular rate and rhythm. Normal S1 and S2, without murmurs mid incision line tenderness. Dressing clean dry and intact. ABD: Abdomen soft, nontender. Bowel sounds present EXT: No clubbing cyanosis or edema. Left femoral sheath. NEURO: Alert and oriented to person, follows commands Vital Signs (last 8hr) Date Time Temp Pulse Resp B/P (MAP) Pulse Ox O2 Delivery O2 Flow Rate FiO2 11/23/24 11:09 88 18 11/23/24 11:09 88 18 N/A Room Air 21 11/23/24 09:15 100 39 97 11/23/24 09:00 92 19 95 21 97/65 (76) 11/23/24 09:00 97.9 11/23/24 08:30 96 Room Air* 0 21 11/23/24 08:30 86 25 97 114/75 (88) 11/23/24 08:15 97 21 97 112/69 (83) 11/23/24 08:00 98 24 97 21 123/64 (83) 11/23/24 07:45 99 27 97 103/63 (76) 11/23/24 07:30 81 20 95 113/66 (82) 11/23/24 07:15 79 22 94 106/64 (78) 11/23/24 07:00 80 23 95 21 105/68 (80) 11/23/24 06:45 83 17 95 11/23/24 06:23 80 18 11/23/24 06:22 80 18 N/A Room Air 21 LABS: Hematology Labs: Test 11/23/24 06:43 11/22/24 04:47 Range/Units White Blood Count 8.8 4.8-10.8 K/uL Red Blood Count 3.19 L 4.50-6.20 MIL/uL Hemoglobin 9.9 L 14.0-18.0 g/dL Hematocrit 31.6 L 42-54 % Mean Corpuscular Volume 99.1 H 79-99 fL Mean Corpuscular Hemoglobin 31.0 27.0-33.0 pg Mean Corpuscular Hemoglobin Concent 31.3 L 32.0-36.0 g/dL Red Cell Distribution Width 14.6 11.0-15.5 % Platelet Count 605 H 130-400 K/uL Mean Platelet Volume 9.1 7.5-10.5 fL Nucleated Red Blood Cells 0.0 0.0-0.19 % Immature Granulocyte % (Auto) 1.7 H 0-1 % Neutrophils (%) (Auto) 66.4 40.0-77.0 % Lymphocytes (%) (Auto) 19.3 L 21.0-51.0 % Monocytes (%) (Auto) 8.1 3.0-13.0 % Eosinophils (%) (Auto) 3.4 0.0-8.0 % Basophils (%) (Auto) 1.1 0.0-5.0 % Neutrophils # (Auto) 6.9 1.8-7.7 K/uL Lymphocytes # (Auto) 2.0 1.0-4.8 K/uL Monocytes # (Auto) 0.8 0.1-1.0 K/uL Eosinophils # (Auto) 0.35 0.00-0.70 K/uL Basophils # (Auto) 0.11 0.00-0.20 K/uL Absolute Immature Granulocyte (auto 0.18 0-1 K/uL Red Blood Cell Morphology See comments Chemistry Labs: Test 11/23/24 06:43 Range/Units Sodium Level 136 136-145 mmol/L Potassium Level 3.9 3.5-5.1 mmol/L Chloride Level 100 L 101-111 mmol/L Carbon Dioxide Level 27 21-32 mmol/L Blood Urea Nitrogen 11 7-18 mg/dL Creatinine 1.2 0.5-1.3 mg/dL Glomerular Filtration Rate Calc 66 >90 mL/min Random Glucose 125 H 70-105 mg/dL Total Calcium 8.7 8.5-10.1 mg/dL Coagulation Labs: Test 11/23/24 00:25 Range/Units Prothrombin Time 11.4 9.6-11.6 SEC Prothromb Time International Ratio 1.08 0.85-1.15 Activated Partial Thromboplast Time 56.0 H 26.3-35.5 SEC DIAGNOSTICS / RADIOLOGY RESULTS: EXAM: LIMITED Two-dimensional and M-mode echocardiogram. INDICATION ICD: follow up impella 2D Dimensions LVED Vol(simp.) 65.3 mL LVES Vol(simp.) 40.6 mL LVEF(%, simp.) 38 % Deformation Strain Apical 4 -7.8 % Apical 2 -8.7 % Apical 3 -7.6 % Global Strain -8.0 % Left Ventricle Impella device present and is appears well seated, measuring approximately 5.3cm. Left ventricular cavity size is normal. LVEF is 35-40%. PLAN Following Cardiothoracic Surgeons postop protocol Neurovascular checks per protocol Weaning Impella per CTS I&Os Cardiac diet Telemetry PT/OT Continue bowel regimen Heme-Onc recommendations Continue IS Q 1 hour while awake. NEURO: Minimize central acting medications as possible. Fall Precautions. Well lighted room through the day and minimize interruptions through the night to prevent acute delirium. PULMONARY: Supplemental 02 as needed Titrate Fio2 to keep Spo2 > or = 90% DuoNebs and CPT as needed IS hourly while awake for pulmonary hygiene Out of bed to chair as tolerated VAP Bundle Bipap 12/6 fio2 50% RT to titrate FiO2 as needed to maintain O2 above 92% CARDIOVASCULAR: Follow hemodynamics. Titrate vasopressor to keep MAP >65 or systolic blood pressure >95mmHg LVEF- 35-40% in 2D ECHO on 11.23.24 DIPS: Epi LINES: Central venous catheter right IJ Impella 5.5 Chest tube A line Daniel catheter GI & NUTRITION: NPO for now Aspirations precautions Prokinetic agents and laxatives as needed KIDNEYS & ELECTROLYTES: Strict monitoring of intake and output Daily weights Avoid nephrotoxic agents Monitor electrolytes and replace as needed Goal urine output of 30mL/hr or 0.5mL/kg/hr Urine output 2 L in last 24 hours Chest tube drained 400 mL to lateral side Mediastinal drain 90 mL with I&O balance positive 230 mL ENDOCRINE: Maintain blood glucose between 100-180 at all times. Insulin sliding scale for blood glucose management INFECTIOUS DISEASE: Trend temperature. Nichols-culture if febrile. Micro: [ ] MRSA negative Antibiotics: [ ] Ancef HEMATOLOGY & COAGULATION: Monitor H&H. Keep Hgb > 7 Transfuse 1 unit of PRBC for Hgb < 7 Transfuse 1 pack of platelets of platelets < 20, 000 Watch for any signs and symptoms of bleeding SKIN: Pressure ulcer prevention per facility protocol Rehab: PT/OT Prophylaxis: GI: [ Protonix 40 mg IV b.i.d.] DVT: Heparin per CV Code Status: Full Resuscitation Disposition: [ TBD Patient remains critical requiring pressors, Impella support. Time excludes any educational time or procedures performed ATTESTATION BY PHYSICIAN I have seen and examined the patient. I reviewed the documentation, medical decision making, and treatment plan as noted by the resident provider above. I agree with the findings and plan of care. Yuri Petit MD, LAKSHMI MD Nov 23, 2024 14:16
--- NOTE | 2024-11-23 14:17 | HMCIMG ---
EXAM: CR Chest, 1 View. CLINICAL HISTORY: impella device COMPARISON: Yesterday FINDINGS: LUNGS: There is no mass, infiltrate, or acute pulmonary abnormality. Left-sided chest tube is noted. There is a right IJ line in the SVC PLEURAL SPACES: No pleural effusion or pneumothorax. MEDIASTINUM: The cardiomediastinal silhouette is within normal limits. BONES: No aggressive appearing osseous lesion seen. IMPRESSION: No acute cardiopulmonary pathology is evident. /[place]
--- NOTE | 2024-11-23 14:20 | HMCIMG ---
EXAM: CR Chest, 1 View. CLINICAL HISTORY: impella device COMPARISON: November 21 2024 FINDINGS: LUNGS: The lungs show no infiltrate or other acute finding. PLEURAL SPACES: No pleural effusion or pneumothorax. MEDIASTINUM: The cardiomediastinal silhouette is within normal limits. There is a right IJ line in the SVC. Left-sided chest tube is noted. BONES: No aggressive appearing osseous lesion seen. IMPRESSION: No acute cardiopulmonary pathology is evident. /[place]
[2024-11-23] MEDS: FLUDROCORTISONE ACETATE 0.1 MG TABLET PO SCH (15:35)
--- NOTE | 2024-11-23 15:40 | NUR ---
[facility] Follow-up: Patient re-assessed by wound healing team. Patient with no open wounds or skin breakdown. Assessment and recommendations provided to primary nurse. Education provided. Addendum: 11/24/24 at 1152 by TAD KNOTT RN RN/ Amended: Links added.
--- NOTE | 2024-11-23 19:52 | HMCSR ---
APPROVED REPORT EXAM: LIMITED Two-dimensional and M-mode echocardiogram. INDICATION ICD: follow up impella 2D Dimensions LVED Vol(simp.)65.3 mL LVES Vol(simp.)40.6 mL LVEF(%, simp.)38 % Deformation Strain Apical 4-7.8 % Apical 2-8.7 % Apical 3-7.6 % Global Strain-8.0 % Left Ventricle Impella device present and is appears well placed, measuring approximately 5.3 cm from aortic annulus . Left ventricular cavity size is normal. Apical cap hypokinesis. Severe anteroseptal, and inferoepta l hypokinesis. GLS map severely abnormal with GLS of -8%. LVEF is 35-40%. LVEF biplane is 37%. Conclusion Impella device present and is appears well placed, measuring approximately 5.3 cm from aortic annulus . Left ventricular cavity size is normal. Apical cap hypokinesis. Severe anteroseptal, and inferoeptal hypokinesis. GLS map severely abnormal with GLS of -8%. LVEF is 35-40%. LVEF biplane is 37%.
--- NOTE | 2024-11-23 20:00 | HMCIMG ---
EXAM: XR Chest, 1 View. CLINICAL HISTORY: Peripherally inserted central catheter placement and evaluation for pneumothorax. COMPARISON: Computed radiography chest, single view from 11/23/2024. FINDINGS: LUNGS: The lungs show no focal airspace consolidation. The examination is limited by mild patient rotation, which may subtly affect the apparent cardiomediastinal contours and assessment of subtle findings. PLEURAL SPACES: No pleural effusion or pneumothorax. HEART: The heart size is normal. The cardiomediastinal silhouette is within normal size and contour limits for this projection. BONES: Median sternotomy changes are present. No acute osseous abnormality is identified. LINES AND TUBES: A right side PICC line is present with the tip at the cavoatrial junction. Previously noted left-sided chest tube and right IJ central line are not visualized on the current examination. IMPRESSION: 1. No acute cardiopulmonary process. 2. Right-sided PICC line with tip at the cavoatrial junction, in expected position. 3. Previously seen left-sided chest tube is no longer present. 4. Several stable chronic and incidental findings are noted, as detailed in the body of the report. 5. Technical limitation: mild rotation on this single-view examination. /[place]
--- NOTE | 2024-11-23 23:41 | PN ---
TIME: 11:00 a.m. SUBJECTIVE: The patient is a 69-year-old gentleman who had an Impella-assisted coronary artery bypass grafting. No major events overnight, still remains on Impella and pressors. PHYSICAL EXAMINATION: NEUROLOGIC: Alert and oriented. No deficits. CARDIAC: S1, S2. Regular rate and rhythm. RESPIRATORY: Clear to auscultation bilaterally. CHEST: Incision is clean, dry, and intact. ASSESSMENT AND PLAN: * Coronary artery disease, status post Impella-assisted coronary artery bypass grafting. Remains stable; however, still requires Impella support and epinephrine drip. We will continue to wean the Impella and pressors as tolerated. * Volume overload, on Lasix IV b.i.d. * Hypercholesterolemia, on high statin therapy. * Acute blood loss anemia. No evidence of active bleeding at this time. We will continue to monitor and transfuse for hemoglobin less than 7. TID: [id number] RECEIPT: [id number]
[2024-11-24] VITALS (57 sets, daily range): BP systolic 83–133; BP diastolic 33–82; PULSE 66–93; RESP 14–57; TEMP 97.8–98.5; O2SAT 95–98
--- NOTE | 2024-11-24 01:48 | PN ---
SUBJECTIVE: The patient is postop day #16 from an Impella supported coronary artery bypass grafting. The patient continues with his L5.5 Impella and the mid range of epinephrine as he continues to have hypotension every time he stands up. The patient is also on midodrine 15 mg t.i.d. OBJECTIVE: VITAL SIGNS: His vital signs while he is sitting in a bedside chair reveal a blood pressure of 157/88, his respirations are 15, his oxygen saturations are 97% on nasal cannula oxygen. HEENT: He is normocephalic, atraumatic. He has nasal cannula oxygen prongs under his nose. He has a right cervical central venous line. He has a left lower cervical L5.5 Impella left ventricular assist device. HEART: His heart is S1, S2, and currently regular. LUNGS: His lungs are unlabored at rest, on oxygen supplementation. ABDOMEN: His abdomen reveals mild to moderate obesity. EXTREMITIES: He has SCDs down his lower extremities. He is also on a heparin drip. ASSESSMENT AND PLAN: Status post coronary artery bypass grafting. Continue aspirin, hold beta blockers and wean epinephrine drip. Continue Impella support and will wean off the epinephrine drip. Discontinue his central venous line after PICC line is placed. Continue midodrine. Allow the patient to have salt and consider steroids for orthostatic hypotension. Postoperative acute pulmonary insufficiency. Attempt to wean off nasal cannula oxygen while his oxygen saturation stable at 90%. Deep venous thrombosis prophylaxis. The patient is on a heparin drip for his Impella. He also has SCDs. Time spent 30 minutes. The patient is critically ill in the ICU. TID: [id number] RECEIPT: [id number]
[2024-11-24 04:37] LABS: NUCLEATED RED BLOOD CELLS 0.0 % (0.0-0.19); PLATELET COUNT (AUTO) 525.0 K/uL (130-400); RED BLOOD CELL COUNT(AUTO) 3.08 MIL/uL (4.50-6.20); RED CELL DISTRIBUTION WIDTH 14.4 % (11.0-15.5); WHITE BLOOD COUNT (AUTO) 7.5 K/uL (4.8-10.8)
[2024-11-24 04:48] LABS: CREATININE 0.9 mg/dL (0.5-1.3); GLOMERULAR FILTR. RATE CALC 93.0 mL/min (>90); GLUCOSE,RANDOM 104.0 mg/dL (70-105); SODIUM SERUM 136.0 mmol/L (136-145); UREA NITROGEN, BLOOD 10.0 mg/dL (7-18)
--- NOTE | 2024-11-24 09:04 | NUR ---
MD JAY ROBLERO. PATIENT OFF EPI AT THIS TIME, AND PLACED ON P-3 LEVEL FLOW. PATIENT RESTING IN BED, NO DISTRESS NOTED. ROOM AIR, VITALS STABLE 131/63. CALL LIGHT WITHIN REACH.
[2024-11-24 12:06] LABS: ABG BASE EXCESS -1.3 mmol/L (-2.0-3.0); ABG HCO3 22.1 mmol/L (21.0-28.0); ABG OXYGEN SATURATION 94.7 % (94.0-98.0); ABG PCO2 33 mmHg (35-48); ABG PH 7.446 (7.350-7.450); CARBON MONOXIDE 0.7 % (0.5-1.5); DEVICE COMMENT RB; PO2, ARTERIAL BG 74.6 mmHg (83.0-108.0); TEMPERATURE, CELSIUS BG 37.0 CELSIUS (35.5-37.0); VENT MODE, BG RA (ROOM AIR)
--- NOTE | 2024-11-24 12:34 | PN ---
PROGRESS NOTE Date of Service: Nov 24, 2024 Time of Service: 12:10 SUBJECTIVE: 69-year old male with past medical history of Graves disease, hyperlipidemia, CAD(status post PTCA 30 years ago) presented to ED with chief complaints of on and off chest pain. He was found to have severe left main disease and underwent CABG on 11/07. Patient had to undergo a redo due to graft thrombosis on table. Subsequently he was placed on Impella initially on P4---->P8---->P5--->P4(current). He was treated with multiple pressors. On 11/09 patient underwent right radial artery arterial line placement which clotted. And 2nd anterior line was placed on right axillary artery on 11/12/2024 which was also clotted. Another arterial line was placed on left brachial artery on 11/14/2024 . Patient was also noted to have transient thrombocytopenia between 11/09/2024 to 11/12/2024. 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 However direct Juan test and cold agglutinin was negative. Patient is seen and evaluated at the bedside today. Patient is alert oriented. He continues to be on Impella support. His platelet count is [id number], hemoglobin 9.6, WBC 7.5. Free [place] lambda light chain ratio 0.69 suggestive of polyclonal elevations. We will wait for SPEP-if monoclonal we will proceed with bone marrow biopsy. He is in NAD. REVIEW OF SYSTEMS CONSTITUTIONAL: Denies fever, chills, or fatigue. HEAD/FACE: No signs of trauma. EENT: Denies eye pain, blurred vision, double vision, or light sensitivity. RESPIRATORY: Denies shortness of breath, cough, wheezing CARDIOVASCULAR: Denies chest pain, palpitation, syncope GASTROINTESTINAL/ABDOMINAL: Denies abdominal pain, constipation, diarrhea, nausea or vomiting GENITOURINARY: Denies dysuria or hematuria. MUSCULOSKELETAL: Denies joint pain, tenderness, or trauma. INTEGUMENTARY: Denies rash or itchiness NEUROLOGICAL/PSYCH: Denies anxiety, depression, heat or cold intolerance. PHYSICAL EXAM EYES: Anicteric. Pupils equal and reactive. HENT: No oral thrush seen, moist Oral mucosa NECK: Supple, no JVD or thyromegaly. LUNGS: Good air entry. No rales, no rhonchi. CARDIOVASCULAR: S1, S2 regular. No murmur heard. ABDOMEN: Soft, non tender, bowel sounds present, no organomegaly CENTRAL NERVOUS SYSTEM: Awake, alert, oriented x 3. No focal deficits. SKIN: No rashes, no swelling. LYMPHATICS: No peripheral lymphadenopathy MUSCULOSKELETAL: No joint swelling, erythema or tenderness. EXTREMITIES: No cyanosis or clubbing BACK: No deformity, no pressure ulcer. GENITOURINARY: No dysuria or hematuria Vital Signs (last 8hr) Date Time Temp Pulse Resp B/P (MAP) Pulse Ox O2 Delivery O2 Flow Rate FiO2 11/24/24 11:28 93 18 11/24/24 11:28 92 18 N/A Room Air 21 11/24/24 10:00 74 22 100/54 (69) 94 21 11/24/24 09:00 86 26 131/63 (85) 91 21 11/24/24 08:25 86 57 96/56 (69) 96 11/24/24 08:10 69 19 91/54 (66) 97 11/24/24 08:00 67 19 88/45 (59) 95 11/24/24 07:51 98.1 11/24/24 07:45 96 Room Air* 0 21 11/24/24 07:15 74 17 87/52 (64) 93 21 11/24/24 07:09 74 18 N/A Room Air 21 11/24/24 07:07 72 18 11/24/24 07:00 76 21 83/56 (65) 95 21 11/24/24 04:55 74 21 103/33 (56) 98 11/24/24 04:40 76 32 108/62 (77) 95 11/24/24 04:25 74 20 98/60 (73) 94 11/24/24 04:11 81 14 105/61 (76) 98 LABS: Laboratory: Test 11/24/24 12:05 11/24/24 10:50 11/24/24 04:13 11/23/24 00:25 Range/Units Blood Gas Specimen Type Arterial Arterial Blood pH 7.446 7.350-7.450 Arterial Blood Partial Pressure CO2 33 L 35-48 mmHg Arterial Blood Partial Pressure O2 74.6 L 83.0-108.0 mmHg Arterial Blood HCO3 22.1 21.0-28.0 mmol/L Arterial Blood Oxygen Saturation 94.7 94.0-98.0 % Arterial Blood Base Excess -1.3 -2.0-3.0 mmol/L Hemoglobin (Blood Gas) 11.8 L 13.5-17.5 g/dL Sodium (Blood Gas) 134 L 136-145 MMOL/L Bedside Potassium (Blood Gas) 4.1 3.4-4.5 MMOL/L Bedside Chloride (Blood Gas) 101 98-107 MMOL/L Bedside Glucose (Blood Gas) 117 H 65-95 MG/DL Bedside Ionized Calcium (Blood Gas) 1.15 1.15-1.33 MMOL/L Bedside Lactic Acid (Blood Gas) 2.00 H 0.36-0.75 MMOL/L Blood Gas Temperature 37.0 35.5-37.0 CELSIUS Blood Gas Vent Mode RA ROOM AIR FiO2 21.0 % Blood Gas Specimen Comment RB Activated Partial Thromboplast Time 60.9 #H 26.3-35.5 SEC White Blood Count 7.5 4.8-10.8 K/uL Red Blood Count 3.08 L 4.50-6.20 MIL/uL Hemoglobin 9.6 L 14.0-18.0 g/dL Hematocrit 30.0 L 42-54 % Mean Corpuscular Volume 97.4 79-99 fL Mean Corpuscular Hemoglobin 31.2 27.0-33.0 pg Mean Corpuscular Hemoglobin Concent 32.0 32.0-36.0 g/dL Red Cell Distribution Width 14.4 11.0-15.5 % Platelet Count 525 H 130-400 K/uL Mean Platelet Volume 9.2 7.5-10.5 fL Nucleated Red Blood Cells 0.0 0.0-0.19 % Sodium Level 136 136-145 mmol/L Potassium Level 3.5 3.5-5.1 mmol/L Chloride Level 102 101-111 mmol/L Carbon Dioxide Level 25 21-32 mmol/L Blood Urea Nitrogen 10 7-18 mg/dL Creatinine 0.9 0.5-1.3 mg/dL Glomerular Filtration Rate Calc 93 >90 mL/min Random Glucose 104 70-105 mg/dL Total Calcium 8.5 8.5-10.1 mg/dL Prothrombin Time 11.4 9.6-11.6 SEC Prothromb Time International Ratio 1.08 0.85-1.15 DIAGNOSTICS / RADIOLOGY: [ ] Assessment 1. Anemia. Is multifactorial. Including iron deficiency anemia 2. 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 ELSA 5. Hyperlipidemia 6. Sclerotic nodule on the non coronary cusp on 2D echo Normal ventricular diastolic function with LVEF of 60-65% on 2D echo 11/05/24 7. Former smoker Plan: 1.Platelet count is corrected at this time. Actually there is a reactive thrombocytosis. 2. There was hypersegmented neutrophils. This patient to Continue on folic acid 1 mg p.o. daily and vitamin B12 1000 mcg p.o. daily. 3. 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 Direct Juan was done which was negative. 4. 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 Free light chain was done which was within normal. We are waiting serial for the final report of SPEP. 5. Continue care as per cardiothoracic surgery with the planning to remove the Impella and the chest tube. 6. Patient will need physical therapy. But the patient have hypotension which is affecting his physical therapy. ATTESTATION BY PHYSICIAN I have seen and examined the patient. I reviewed the documentation, medical decision making, and treatment plan as noted by the resident physician above. I agree with the findings and plan of care. JAYLENE DO MD, MD Nov 24, 2024 12:34
--- NOTE | 2024-11-24 12:53 | PN ---
[facility] CARDIOLOGY PROGRESS NOTE Date Patient Seen: Nov 24, 2024 Time of Visit: 12:47 Interval History: No acute events overnight , blood pressure currently in the 120s, recently started on Florinef and midodrine, patient has been successfully weaned off pressor support, currently Impella at P3, chest tubes are out. Overnight urine output 1191ml, patient currently denies any cardiac symptoms or anginal equivalents Physical Examination: GENERAL: No acute distress. HEAD: Normal with no signs of head trauma. EYES: PERRLA, EOMI, conjunctiva and sclera normal. ENT: Hearing grossly intact, normal oropharynx. NECK: Supple without JVD. There is no tenderness, lymphadenopathy, or masses. No thyromegaly. Normal carotid upstrokes without bruits. LUNGS: Clear breath sounds bilaterally. No wheezes, or rhonchi.chest tubes are in HEART: Normal rate and rhythm. Normal S1 and S2 without murmurs, gallop or rub. VASC: Peripheral pulses +2 bilaterally. ABD: Bowel sounds normal, soft, nontender, no masses, no organomegaly. No audible bruits. : Not examined LYMPH: No lymphadenopathy noted. EXT: No clubbing, cyanosis or edema. SKIN: No rashes or lesions noted. NEURO: Awake, alert, and oriented x3. No focal sensory or strength deficits noted. Laboratory: [ ] Hematology Labs: Test 11/24/24 04:13 Range/Units White Blood Count 7.5 4.8-10.8 K/uL Red Blood Count 3.08 L 4.50-6.20 MIL/uL Hemoglobin 9.6 L 14.0-18.0 g/dL Hematocrit 30.0 L 42-54 % Mean Corpuscular Volume 97.4 79-99 fL Mean Corpuscular Hemoglobin 31.2 27.0-33.0 pg Mean Corpuscular Hemoglobin Concent 32.0 32.0-36.0 g/dL Red Cell Distribution Width 14.4 11.0-15.5 % Platelet Count 525 H 130-400 K/uL Mean Platelet Volume 9.2 7.5-10.5 fL Nucleated Red Blood Cells 0.0 0.0-0.19 % Chemistry Labs: Test 11/24/24 04:13 Range/Units Sodium Level 136 136-145 mmol/L Potassium Level 3.5 3.5-5.1 mmol/L Chloride Level 102 101-111 mmol/L Carbon Dioxide Level 25 21-32 mmol/L Blood Urea Nitrogen 10 7-18 mg/dL Creatinine 0.9 0.5-1.3 mg/dL Glomerular Filtration Rate Calc 93 >90 mL/min Random Glucose 104 70-105 mg/dL Total Calcium 8.5 8.5-10.1 mg/dL Coagulation Labs: Test 11/24/24 10:50 11/23/24 00:25 Range/Units Activated Partial Thromboplast Time 60.9 #H 26.3-35.5 SEC Prothrombin Time 11.4 9.6-11.6 SEC Prothromb Time International Ratio 1.08 0.85-1.15 Diagnostics / Radiology: [Copy/Paste Echos/Imaging Report here] Impression and Plan: Abnormal CT coronary angiogram 11/05/2024 demonstrating a CAD-RADs score of 4B mixed calcified and noncalcified plaque in the left main with 50% stenosis, 80- 90% stenosis in the proximal LAD and 80-90% stenosis in mid left circumflex Critical left main and ostial RCA stenosis by cardiac catheterization 11/06/2024 S/p CABG with initial graft failure converted to Impella supported redo (CHILD- LAD, SVG-OM2, SVG-RCA and SVG-LAD) on 11/07/[address] Meza LVEF of 60-65% by 2D echocardiogram 11/05/2024 Mild ischemic cardiomyopathy with an LVEF of 40-45% by 2D echocardiogram 03/2024 Bilateral ICA disease with >70% stenosis by Doppler on 11/04/2024 Transaminitis, improved Hyperlipidemia CAD s/p PTCA to unknown vessel approximately 30 years ago Ex-smoker of 1 PPD with cessation 2 months ago Graves disease S/p CABG with initial graft failure converted to Impella supported redo (CHILD- LAD, SVG-OM2, SVG-RCA and SVG-LAD) on 11/07/[address] Derrick Patel at P-3 -currently denies any chest pain, palpitations, dyspnea or any other anginal equivalent -successfully weaned off pressor support -The patient was noted with severe orthostatic hypotension during PT on 11/23/2024 -current blood pressure average 120s. -Continue Midodrine 15mg TID and Florinef 0.1 mg every 12 hours -continue checking orthostatics every 12 hours -Attempt to wean off Impella mechanical support. Chest tubes are out. Urine output 1190 mL -Continue Aspirin 81 mg daily, Plavix 75 mg daily, Atorvastatin 40 mg q.h.s., -Continue management per Cardiothoracic surgery -PT/OT Carotid artery disease Carotid US 11/05: Mild intimal thickening in the bilateral carotid arteries and their branches. Bilateral ICA/CCA ratio is more than 4.0 suggesting more than 70% stenosis. Raised velocities in the bilateral external and internal carotid arteries. -Recommend CT/MR angiogram when stable from surgical standpoint -Continue Aspirin 81 mg daily and Atorvastatin 40 mg q.h.s. Thank you for this consult cardiology will continue to follow along Gurvinder salazar MD ATTESTATION BY PHYSICIAN I have seen and examined the patient, reviewed the above documentation, participated in medical decision making, made necessary modifications, and agree with the treatment plan as documented by my mid-level provider above. MD JUAN Caldwell JAMES R MD Nov 24, 2024 12:53
--- NOTE | 2024-11-24 13:39 | PN ---
[facility] PROGRESS NOTE Date of Service: Nov 24, 2024 Time of Service: 13:39 SUBJECTIVE: Mr. Valadez a 68-year-old male that was seen and examined today on 11/03/2024. Patient reports that he came to the emergency department with a chief complaint of chest pain. Onset was two or three years ago. He had similar repeated episodes months back which resolved on its own. Today's episode began at 11:00 a.m. Location is midsternal. Duration is on and off. Character is described as "neck someone is pushing a knuckle into the center of my chest. The chest pain did not radiate to shoulder, neck or jaw. "There was no alleviating factors. There was no aggravating factors. Patient reports that symptoms seemingly resolve on their own. He denies nausea, vomiting, fever and any other associated symptoms. Patient denies any associated shortness of breath. Patient has a past medical history of hyperlipidemia and Graves disease. He has been taking atorvastatin and Synthroid as his home medications. Today in the emergency department WBC 5.8, hemoglobin 12.9 platelets 197. His chemistries were within normal limits sodium 140, potassium 4.2, blood urea nitrogen 15 and creatinine 1.0. His electrocardiogram showed normal sinus rhythm. Patient will be admitted for further evaluation and related recommendations in Med-Surg. 11/04/24 Patient was evaluated at the bedside in ED-09. He reports that he is having chest pain that comes and goes. The patient reports having 2 episodes of chest pain in the last hour. He denies associated symptoms such as shortness of breath, palpitation, diaphoresis, dizziness, nausea or syncope. He does however complain of muscle pain in his lower limbs described as a dull aching discomfort that begins in the hip region that is worsened with movement. The patient complains of tingling and numbness in his feet bilaterally. No fever, chills or recent infection reported. Appetite and oral intake are normal. No other acute complaints at this time. On physical exam, a systolic murmur was auscultated over the aortic area. Bilateral carotid bruits are present. Lower extremities are cool to the touch with diminished pedal pulses. Patient reports bilateral leg muscle pain with exertion (suggestive of claudication), and chronic numbness and tingling in the feet. Patient reports recently quitting smoking tobacco for 2 months. He had a 1 pack a day smoking history since 1968. 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 The patient says his chest pain has been ongoing for the past 3 years, and that it gets worse with exertion and at rest. 11/05/24 Patient was evaluated at the bedside room 231. He was hemodynamically stable. Hi symptoms has improved significantly. He doesn't complain of chest pain, shortness of breath and any other associated symptoms. Echocardiogram was done which revealed aortic valve: trileaflet, mildly sclerotic, and opens well. Carotid artery ultrasound showed Bilateral ICA/CCA ratio more than 4.0 suggesting more than 70% stenosis. 11/06/24 Patient was evaluated at the bedside room 231. He was hemodynamically stable. Hi symptoms has improved significantly. He doesn't complain of chest pain, shortness of breath and any other associated symptoms. In coronary CT angiography there is mixed calcified and noncalcified plaque in the proximal LAD with 80-90% stenosis. Left circumflex coronary artery: Normal caliber, nondominant and gives rise to a large OM branch. There is mixed calcified and noncalcified plaque in the mid LCx with 80-90% stenosis. CAD-RAD of 4B. Left heart catheterization with selective right and left coronary angiography was performed which showed critical left main disease. 11/07/24 Patient was evaluated at the bedside room 231. He was hemodynamically stable. He doesn't complain of chest pain, shortness of breath and any other associated symptoms. He complaints of headache 8/10 of intensity after the administration of Nitroglycerin. Cardiac catheterization demonstrated a very tight left main lesion and the patient is referred for surgical revascularization. As per Dr Meza: Surgery is planned for today. 11/08/24: Patient was seen and evaluated this morning at bedside. The patient is POD 1 s/p CABG. Patient is currently being managed in the ICU. The patients most recent ABG shows a pH of 7.43, ABG PCO2 47, ABG PO2 77.9, ABG HCO3 30.8. Recent ABG shows improving lactic acid, from 8 to 3.85. The patients chemistry reveals a sodium level 157, potassium level 3.4, creatinine 1.9, BUN 19, GFR 38, phosphorous 2.2. Liver enzymes are trending up, with an ALT level at 325 and an AST level at 869. The patients home medication of Synthroid has been restarted. Chest x-ray ordered today, results pending. We will continue to follow recommendations from critical care team, and cardiology. 11/09/2024: Patient is seen and evaluated in the room 213. The patient is POD 2 s/p CABG. Patient is currently being managed in the ICU. He is complaining of pain. His vitals are in the normal range. His Hb is 11.1, WBC is 19.1, Plt is 115, sodium is 154, chloride is 113, glucose is 122. His recent ABG shows that pH is 7.472, pO2 is 80.1, bicarb is 30.4, Hb is 11.4, lactic acid is 1.63. His chest X-ray on 11/08 showed improved aeration within the left perihilar and left basilar regions. As per nurse he is having intervention confusion, stopped lidocaine and they also weaning on pressors norepinephrine and epinephrine. The drain output from left anterior chest is 20ml, mediastinal lateral is 160ml, mediastinal mediastinal is 300ml, right anterior chest is 160 ml. We will continue to follow recommendations from critical care team, and cardiology. 11/10/2024: Patient was seen and evaluated this morning at bedside. The patient is POD 3 s/p CABG. Patient is currently being managed in the ICU. He is not having any symptoms today. His vitals are in the normal range. His labs are normal except for Hb is 10.1, WBC is 14.7, plt is 85, sodium is 147, AST is 156, ALT is 95, APTT is 25.5. ABG shows that his pH is 7.4, lactate is 1.22, bicarb is 31. The drain output from left anterior chest is 170 ml, mediastinal mediastinal is 130ml. We will continue to follow recommendations from critical care team, and cardiology. 11/11/2024: Patient was seen and evaluated this morning at bedside. The patient is POD 4 s/p CABG. He is not having any symptoms today. His vitals are in the normal range. His labs are normal except for hemoglobin is 9.7, WBC is 11.7, platelet is 106, glucose is 107, AST is 87, ALT is 62. ABG shows pH is 7.468, lactic acid is 1.03. We will continue to follow recommendations from critical care team, and cardiology. 11/12/2024: Patient was seen and evaluated in the room 218. The patient is POD 5 s/p CABG. He is having dizziness and ache in the left shoulder. His vitals are in the normal range. His labs are normal except for hemoglobin 9.6, platelets is 94, AST 75. ABG shows pH 7.487, lactic acid 1.2. Currently he is not on any pressors. Cardiovascular surgery tried to wean Impella. They decreased impella setting to P4 but his blood pressure is low so they went back to P5. Cardiovascular surgery also increased his midodrine dose to 15mg. His chest X- ray showed mild pulmonary vascular congestion. He had a bowel movement and good urine output. He is using incentive spirometry well. We will continue to follow recommendations from the critical Care team and Cardiology. 11/13/2024: Patient was seen and evaluated in the room 218. The patient is POD 6 s/p CABG. He is having dizziness and generalized ache. His vitals are in the normal range. His labs are normal except for Hb is 8.9, calcium is 7.4, glucose is 140. His chest x-ray showed that mild borderline cardiomegaly with median sternotomy with cardiac and aspiration procedure, support lines in satisfactory position, no evidence of airspace consolidation or pulmonary venous congestion. He is restarted on norepinephrine and epinephrine drip and impella at P5 as he is hypotensive and has bradycardia. The nurse told me that she will consult anesthesia for changing the arterial line as his line is not working. He is on heparin drip and off of lovenox. The drain output from left anterior chest is 260 ml, mediastinal mediastinal is 60ml. Hematology was consulted as he is in a hypercoagulable state. 11/14/2024: Patient was seen and evaluated in the room 218. The patient is POD 7 s/p CABG. His vital signs are in the normal range except for blood pressure is 88/64. His labs are normal except for hemoglobin is 8.8, APTT is 62.4, glucose is 133, calcium is 7.5, AST is 61. Chest X-ray showed mild cardiomegaly with median sternotomy with cardiac revascularization procedure, support lines are in satisfactory position. His impella is increased to P7 as he is hypotensive and bradycardic. He is on epinephrine. The drain output from left anterior chest is 80ml and from mediastinal mediastinal is 20ml. Hematology saw the patient and they recommended to start folic acid, vitamin B12, ordered SPEP, UPEP, free light chains. They think that the patient might be having hemolytic anemia which could be the reason for his graft clotting after surgery. 11/15/2024: He was evaluated at the bedside this morning. The patient is POD 8 s/p CABG. He is on Impella support with blood pressure 89/64 with map 72. Remarkable lab is for hemoglobin 9.2. Chest x-ray revealed mildly improved right lower lobe airspace opacity with stable cardiac support device and median sternotomy. His MPOA is encouraged to P8 and weaned off the pressors. Hematology recommending Tatiana test to rule out autoimmune hemolytic anemia. Hematology, CT surgery, critical care and cardiology on the board. Rest of the plan as discussed below. 11/16/2024: He was evaluated at the bedside this morning. The patient is POD 9 s/p CABG. Impella support has been weaned to P5 today. As per Dr. Khan, epi will be turned on at 0.03 mcg/kg/min and Impella performance level will be decreased to p4 tomorrow morning. Today, patient's BP is at 102/62, 79bpm and he is on 3L O2 nasal cannula. He is pending direct tatiana test, SPEP, UPEP and Free Light Chain assay as per hematology. His Hb from today is 8.9. Chest Tube drainage is at 201 ml. Hematology, CT surgery, critical care and cardiology on the board. 11/17/2024: He was evaluated at the bedside this morning. The patient is POD 10 s/p CABG. Impella support has been weaned to P4 today. Patient is currently on epinephrine 0.03 mcg/kg/minute as per Dr. Khan. Patient is receiving Lasix for diuresis and her urine output in the past 24 hours has been for 4050 mL. Mediastinal mediastinal chest tube drainage is 40 mL. Left anterior chest tube drainage is 104 mL. Hematology, CT surgery, critical care and cardiology on the board. 11/18/2024: He was evaluated at the bedside this morning. The patient is POD 11 s/p CABG. Impella support continues on P4 today. Plan is to wean off further tomorrow. Patient is currently on epinephrine 0.05 mcg/kg per minute. His blood pressure is running low, 88/48. Patient is receiving Lasix for diuresis and his urine output in the past 24 hours has been for 3400 mL. Mediastinal mediastinal chest tube drainage is 60 mL. Left anterior chest tube drainage is 140 mL. Hematology, CT surgery, critical care and cardiology on the board. As per Hematology recommendations, IV iron sucrose was ordered since iron panel showed low iron, and low percentage saturation. 11/19/2024: Patient was seen and evaluated at the bedside this morning. The patient is POD 12 s/p CABG. Impella support continues on P4 today and there is a plan to wean it off further, awaiting cardiothoracic surgery recommendations. Patient is currently maintained on epinephrine 0.03 mcg/kg per minute. His blood pressure is still running low, 92/44. He passed stool twice yesterday, after 7 days of constipation. Hematology, CT surgery, critical care and cardiology on the board. 11/20/2024: Patient was seen and evaluated at bedside this morning. He continues on P4 support. He is vitally stable with BP 101/56. WBCs are trending down from 12.4 K to 11.1 K. His TSH was elevated, 7.13. Free T3 test showed 1.64. We will continue to follow recommendations from Cardiothoracic surgery, Cardiology, and critical Care teams. 11/21/24: Patient was seen and evaluated at bedside this morning in room 218. The patient is POD 14 s/p CABG He continues on P4 support planning to be weaned off to lower settings if he continues to do better as per cardiothoracic surgery recommendations. Blood pressure on arterial line is 97/52 (67). WBCs are trending down from 11.1 to 10.0. His TSH was elevated, 7.13. Free T3 test showed 1.64. We will continue to follow recommendations from Cardiothoracic surgery, Cardiology, and critical Care teams. 11/22/24: Patient was seen and evaluated at bedside this morning in room 218. The patient is POD 15 s/p CABG. He continues on P4 support today as weaning off has been unsuccessful so far. He is currently on 0.08 epi support. He is undergoing diuresis as well. He reports no bowel movement for the past several days. We will continue to follow recommendations from Cardiothoracic surgery, Cardiology, and critical Care teams. 11/23/2024: Patient was seen and evaluated at the bedside this morning in room 218. This is postop day 16 status post CABG. He had no acute events overnight and was sitting comfortably in his chair during my visit. Patient continues on Impella P4 for support today. His vasopressor support is reducing today at 0.06 mcg. Patient denies chest pain, shortness of breath however has mild cough. Plan is to slowly taper off epinephrine and Impella. We will continue to follow recommendations from Cardiothoracic surgery, Cardiology and critical Care teams. 11/24/24: Patient was evaluated at the bedside in room 218. This is postop day 17 status post CABG. He had no acute events overnight and was sitting comfortably in his chair. Patient is weaned off epinephrine completely. Continues on Impella P3 support. Patient denies chest pain, shortness of breath, or anginal equivalents. All the chest tubes are out. We will continue to follow recommendations from Cardiothoracic surgery, Cardiology, critical Care team. REVIEW OF SYSTEMS CONSTITUTIONAL: Pain in his left shoulder, improved No fever, chills, or night sweats. NEUROLOGICAL: No headache no sensory and motor deficit. CARDIOVASCULAR: Dizziness, improved Denies any exertional angina, dyspnea on exertion, palpitations. PULMONARY: Denies any shortness of breath, cough, phlegm/sputum, hemoptysis, pleuritic chest pain. GASTROINTESTINAL: Constipation. Denies nausea, vomiting. Denies pain, tenderness around the abdomen. GENITOURINARY: Denies frequency, urgency, nocturia, hematuria or incontinence. PHYSICAL EXAM GENERAL APPEARANCE: The patient is alert, awake and oriented and bedbound. NEUROLOGICAL: No sensory and motor deficits. CHEST: left anterior chest , mediastinal mediastinal drains are removed. Dressing is clean Normal chest expansion. LUNGS: Normal vesicular breath sound. Absence of any rales, rhonchi or any wheezing. CARDIOVASCULAR: Systolic murmur heard over aortic area. Bilateral carotid bruits heard. No JVD. ABDOMEN: Soft nontender, and nondistended. There is no rebound, voluntary guarding, or rigidity. No abdominal bruit heard. GENITOURINARY: No suprapubic tenderness. No costovertebral angle tenderness. EXTREMITIES: Limbs are non-edematous. Vital Signs (last 8hr) Date Time Temp Pulse Resp B/P (MAP) Pulse Ox O2 Delivery O2 Flow Rate FiO2 11/24/24 13:26 98.2 Room Air 21 11/24/24 11:28 93 18 11/24/24 11:28 92 18 N/A Room Air 21 11/24/24 10:00 74 22 100/54 (69) 94 21 11/24/24 09:00 86 26 131/63 (85) 91 21 11/24/24 08:25 86 57 96/56 (69) 96 11/24/24 08:10 69 19 91/54 (66) 97 11/24/24 08:00 67 19 88/45 (59) 95 11/24/24 07:51 98.1 11/24/24 07:45 96 Room Air* 0 21 11/24/24 07:15 74 17 87/52 (64) 93 21 11/24/24 07:09 74 18 N/A Room Air 21 11/24/24 07:07 72 18 11/24/24 07:00 76 21 83/56 (65) 95 21 LABS: Laboratory: Test 11/24/24 12:05 11/24/24 10:50 11/24/24 04:13 11/23/24 00:25 Range/Units Blood Gas Specimen Type Arterial Arterial Blood pH 7.446 7.350-7.450 Arterial Blood Partial Pressure CO2 33 L 35-48 mmHg Arterial Blood Partial Pressure O2 74.6 L 83.0-108.0 mmHg Arterial Blood HCO3 22.1 21.0-28.0 mmol/L Arterial Blood Oxygen Saturation 94.7 94.0-98.0 % Arterial Blood Base Excess -1.3 -2.0-3.0 mmol/L Hemoglobin (Blood Gas) 11.8 L 13.5-17.5 g/dL Sodium (Blood Gas) 134 L 136-145 MMOL/L Bedside Potassium (Blood Gas) 4.1 3.4-4.5 MMOL/L Bedside Chloride (Blood Gas) 101 98-107 MMOL/L Bedside Glucose (Blood Gas) 117 H 65-95 MG/DL Bedside Ionized Calcium (Blood Gas) 1.15 1.15-1.33 MMOL/L Bedside Lactic Acid (Blood Gas) 2.00 H 0.36-0.75 MMOL/L Blood Gas Temperature 37.0 35.5-37.0 CELSIUS Blood Gas Vent Mode RA ROOM AIR FiO2 21.0 % Blood Gas Specimen Comment RB Activated Partial Thromboplast Time 60.9 #H 26.3-35.5 SEC White Blood Count 7.5 4.8-10.8 K/uL Red Blood Count 3.08 L 4.50-6.20 MIL/uL Hemoglobin 9.6 L 14.0-18.0 g/dL Hematocrit 30.0 L 42-54 % Mean Corpuscular Volume 97.4 79-99 fL Mean Corpuscular Hemoglobin 31.2 27.0-33.0 pg Mean Corpuscular Hemoglobin Concent 32.0 32.0-36.0 g/dL Red Cell Distribution Width 14.4 11.0-15.5 % Platelet Count 525 H 130-400 K/uL Mean Platelet Volume 9.2 7.5-10.5 fL Nucleated Red Blood Cells 0.0 0.0-0.19 % Sodium Level 136 136-145 mmol/L Potassium Level 3.5 3.5-5.1 mmol/L Chloride Level 102 101-111 mmol/L Carbon Dioxide Level 25 21-32 mmol/L Blood Urea Nitrogen 10 7-18 mg/dL Creatinine 0.9 0.5-1.3 mg/dL Glomerular Filtration Rate Calc 93 >90 mL/min Random Glucose 104 70-105 mg/dL Total Calcium 8.5 8.5-10.1 mg/dL Prothrombin Time 11.4 9.6-11.6 SEC Prothromb Time International Ratio 1.08 0.85-1.15 Current Medications Medications (Trade) Dose Ordered Sig/Brittany Route PRN Reason Start Time Stop Time Status Last Admin Dose Admin Acetaminophen (TYLenol 325MG TAB) 650 mg Q4H PRN PO Temp >38.3C(AFTER EXTUBATION) 11/07/24 14:00 12/07/24 13:59 Acetaminophen (TYLenol 325MG TAB) 650 mg Q6H PRN PO TEMPERATURE GREATER THAN 101.5 11/03/24 21:00 11/07/24 14:00 DC 11/06/24 23:00 650 MG Acetaminophen (TYLenol 325MG TAB) 650 mg Q6H PRN PO MILD PAIN (1-3) 11/07/24 14:00 12/07/24 13:59 11/16/24 11:37 650 MG Acetaminophen (TYLenol 650MG SUPPOSITORY) 650 mg Q4H PRN RC Temp >38.3C WHILE INTUBATED 11/07/24 14:00 12/07/24 13:59 Acetaminophen (acetaMINOPHEN) 1,000 mg Q6H IVPB 11/09/24 09:00 11/12/24 08:59 DC 11/12/24 02:11 1,000 MG Acetaminophen (acetaMINOPHEN) 1,000 mg Q6H6 IV 11/07/24 18:00 11/08/24 17:59 DC 11/08/24 18:08 1,000 MG Albumin Human 250 ml @ 0 mls/hr AD IV 11/23/24 09:00 11/28/24 08:59 11/23/24 08:55 250 MLS/HR Albumin Human 250 ml @ 0 mls/hr AD PRN IV IF HEMODYNAMICALLY UNSTABLE 11/07/24 14:00 11/08/24 09:57 DC 11/08/24 09:57 125 MLS/HR Albumin Human 250 ml @ 0 mls/hr AD STAT IV 11/15/24 13:09 11/15/24 13:12 DC 11/15/24 13:28 250 MLS/HR Aminocaproic Acid 35146 mg/Sodium Chloride 310 ml @ 25 mls/hr AD IV 11/07/24 14:00 11/08/24 02:23 DC Aminocaproic Acid 94011 mg/Sodium Chloride 480 ml @ 0 mls/hr AD PRN IV BLEEDING CONTROL 11/07/24 11:00 11/07/24 14:03 DC Aspirin (Aspirin 81mg Ec Tab) 81 mg DAILY PO 11/04/24 09:00 12/04/24 08:59 11/24/24 08:54 81 MG Atorvastatin Calcium (LIPItor 40MG) 40 mg HS PO 11/03/24 21:00 11/03/24 20:40 DC Atorvastatin Calcium (LIPItor 40MG) 40 mg HS PO 11/03/24 21:00 11/09/24 07:45 DC 11/07/24 20:15 40 MG Atorvastatin Calcium (LIPItor 40MG) 40 mg HS PO 11/10/24 21:00 12/10/24 20:59 11/23/24 19:59 40 MG Calcium Gluconate (Calcium Gluc 1gm Vial) 1 gm AD PRN IV HYPOCALCEMIA 11/08/24 09:00 11/09/24 07:45 DC 11/08/24 16:36 1 GM Calcium Gluconate 1 gm/Sodium Chloride 60 ml @ 200 mls/hr AD PRN IV HYPOCALCEMIA 11/07/24 14:00 12/07/24 13:59 11/21/24 06:13 200 MLS/HR Cefazolin Sodium (Ancef) 2 gm ONCALL IVPB 11/06/24 22:00 11/07/24 14:00 DC Cefazolin Sodium (Ancef) 2 gm Q8H IVPB 11/07/24 19:00 11/08/24 11:01 DC 11/08/24 11:15 2 GM Clopidogrel Bisulfate (plaVIX 75MG) 75 mg DAILY PO 11/08/24 14:00 12/08/24 13:59 11/24/24 08:56 75 MG Dexmedetomidine/ Sodium Chloride (PRECEdex 400MCG/ 100ML-NS) 400 mcg PROTOCOL IV 11/07/24 14:00 12/07/24 13:59 Dextrose (D50w) 50 ml AD PRN IV HYPOGLYCEMIA PROTOCOL 11/07/24 14:00 12/07/24 13:59 Dextrose/Sodium Bicarbonate 1,025 ml @ 10 mls/hr Q24H IV 11/07/24 19:30 12/07/24 19:29 11/22/24 19:39 10 MLS/HR Docusate Sodium (COLace 100MG CAP) 100 mg BID PO 11/07/24 21:00 11/08/24 10:11 DC 11/07/24 20:15 100 MG Docusate Sodium (COLace 100MG CAP) 100 mg BID PO 11/10/24 09:00 12/10/24 08:59 11/24/24 08:54 100 MG Docusate Sodium (COLace LIQUID 100MG/10ML) 100 mg BID NG 11/08/24 10:30 11/09/24 21:53 DC 11/09/24 20:47 100 MG Enoxaparin Sodium (Lovenox) 30 mg DAILY SQ 11/10/24 09:00 11/13/24 08:38 DC 11/12/24 09:03 30 MG Enoxaparin Sodium (Lovenox) 40 mg DAILY SQ 11/04/24 09:00 11/07/24 13:38 DC 11/05/24 09:06 40 MG Epinephrine HCl 10 mg/Sodium Chloride 250 ml @ 13.948 mls/ hr AD PRN IV POST-OP CARDIOVASCULAR ORDERS 11/07/24 14:00 11/12/24 13:59 DC 11/09/24 19:48 7 MLS/HR Epinephrine HCl 10 mg/Sodium Chloride 250 ml @ 0 mls/hr AD PRN IV TITRATE 11/07/24 11:00 11/07/24 14:02 DC Epinephrine HCl 10 mg/Sodium Chloride 250 ml @ 0 mls/hr PROTOCOL IV 11/12/24 23:30 12/12/24 23:29 11/22/24 19:30 11.7 MLS/HR Famotidine (Pepcid 20mg Vial) 20 mg BID IV 11/07/24 21:00 11/08/24 08:59 DC 11/08/24 08:11 20 MG Famotidine (Pepcid 20mg Tab) 20 mg DAILY PO 11/04/24 09:00 11/07/24 13:38 DC 11/05/24 09:06 20 MG Fludrocortisone Acetate (Fludrocortisone Acetate) 0.1 mg BID PO 11/23/24 15:30 12/23/24 15:29 11/24/24 08:53 0.1 MG Folic Acid (FOLic ACID 1 MG TABLET) 1 mg DAILY PO 11/14/24 09:00 12/14/24 08:59 11/24/24 08:54 1 MG Furosemide (LASix 20MG TAB) 20 mg Q12H PO 11/09/24 09:00 12/09/24 08:59 Hold 11/22/24 19:40 20 MG Furosemide (LASix 20MG VIAL) 20 mg Q12H IV 11/08/24 09:00 11/09/24 08:59 DC 11/08/24 20:23 20 MG Glucagon (Glucagon 1mg Kit) 1 mg AD PRN IM HYPOGLYCEMIA PROTOCOL 11/07/24 14:00 12/07/24 13:59 Guaifenesin/ Dextromethorphan (RobiTUSSin DM 200/20MG 10ML) 15 ml Q6H PRN PO COUGH 11/19/24 15:00 12/19/24 14:59 11/19/24 14:49 15 ML Heparin Sodium (Porcine) (HEParin 5,000 UNIT VIAL) *calculation based on ACTUAL B... AD PRN IV HEPARIN PROTOCOL 11/13/24 09:30 12/13/24 09:29 Heparin Sodium/ Dextrose 250 ml @ 0 mls/hr Q6H IV 11/13/24 09:30 12/13/24 09:29 11/24/24 04:12 25.5 MLS/HR Hydralazine HCl (APRESOLine 20MG INJ) 10 mg Q6H PRN IV For:SBP above 160;DBP above 90 11/03/24 21:00 11/07/24 13:38 DC Insulin Human Regular 100 unit/ Sodium Chloride 100 ml @ 0 mls/hr AD IV 11/07/24 14:00 11/09/24 13:59 DC 11/08/24 12:30 4 MLS/HR Ipratropium [place] (AtrovENT UD) 0.5 MG [id number] IH 11/08/24 12:00 12/08/24 11:59 11/24/24 11:27 0.5 MG Lactulose (Constulose 20gm/ 30ml Udcup) 20 gm BID PRN PO CONSTIPATION 11/03/24 21:00 11/07/24 14:00 DC Lactulose (Constulose 20gm/ 30ml Udcup) 20 gm BID PRN PO CONSTIPATION 11/07/24 14:00 12/07/24 13:59 11/18/24 06:21 20 GM Levothyroxine Sodium (SYNTHroid 125MCG TAB) 125 mcg SYN PO 11/09/24 06:30 12/09/24 06:29 11/24/24 05:34 125 MCG Lidocaine HCl/ Dextrose 250 ml @ 0 mls/hr PROTOCOL PRN IV OTHER [SEE ORDER COMMENTS] 11/08/24 21:00 11/09/24 08:37 DC 11/08/24 21:15 7.5 MLS/HR Magnesium Hydroxide (Milk Of Magnesium 30ml) 30 ml DAILY PRN PO CONSTIPATION 11/07/24 14:00 12/07/24 13:59 Magnesium Sulfate 50 ml @ 12.5 mls/hr AD PRN IV MAG LEVEL LESS THAN 2.0 11/07/24 14:00 12/07/24 13:59 11/09/24 05:59 12.5 MLS/HR Metoprolol Tartrate (loprESSOR) 12.5 mg BID PO 11/09/24 09:00 11/11/24 09:39 DC Metoprolol Tartrate (loprESSOR) 50 mg BID PO 11/04/24 21:00 11/07/24 13:38 DC 11/06/24 20:38 50 MG Midodrine (PROAMatine 5 MG TABLET) 10 mg TID PO 11/09/24 21:00 11/11/24 06:58 DC 11/10/24 20:07 10 MG Midodrine (PROAMatine 5 MG TABLET) 15 mg TID PO 11/11/24 09:00 12/11/24 08:59 11/24/24 08:53 15 MG Montelukast Sodium (SinguLAIR) 10 mg HS PO 11/08/24 21:00 12/08/24 20:59 11/23/24 19:59 10 MG Morphine Sulfate (morPHINE 2MG SYG) 0.5 mg Q2H PRN IV MODERATE PAIN (4-6) 11/07/24 14:00 11/08/24 13:59 DC Morphine Sulfate (morPHINE 2MG SYG) 1 mg Q2H PRN IV SEVERE PAIN (7-10) 11/07/24 14:00 11/08/24 13:59 DC Morphine Sulfate (morPHINE 4MG SYG) 2 mg Q4H PRN IVP SEVERE PAIN (7-10) 11/03/24 21:00 11/07/24 13:38 DC 11/04/24 15:49 2 MG Nitroglycerin (Nitroglycerin 1gm Oint) 0.5 inch Q8H TD 11/03/24 21:00 11/07/24 13:38 DC 11/07/24 05:46 0.5 INCH Nitroglycerin/ Dextrose 0 ml @ 0 mls/hr AD IV 11/07/24 14:00 11/10/24 13:59 DC Norepinephrine Bitartrate 250 ml @ 0 mls/hr AD PRN IV TITRATE 11/07/24 11:00 11/07/24 14:02 DC Norepinephrine Bitartrate 250 ml @ 0 mls/hr AD PRN IV POST-OP CARDIOVASCULAR ORDERS 11/07/24 14:00 11/12/24 13:59 DC 11/09/24 17:09 5.6 MLS/HR Norepinephrine Bitartrate 250 ml @ 0 mls/hr PROTOCOL IV 11/12/24 18:30 12/12/24 18:29 11/13/24 08:42 2 MLS/HR Ondansetron HCl (zoFRAN 4MG INJ) 4 mg Q6H PRN IV NAUSEA/VOMITING 11/03/24 21:00 11/07/24 14:00 DC Ondansetron HCl (zoFRAN 4MG INJ) 4 mg Q6H PRN IV NAUSEA/VOMITING 11/07/24 14:00 12/07/24 13:59 11/09/24 21:50 4 MG Pantoprazole Sodium (PROTonix 40MG INJ) 40 mg BID IVP 11/08/24 09:00 12/08/24 08:59 11/24/24 08:54 40 MG Pharmacy Profile Note (Pharmacy Communication) 1 each ONCE MISC 11/13/24 09:00 11/13/24 08:57 DC Piperacillin Sod/ Tazobactam Sod (Zosyn 3.375gm+NS 50ml) 3.375 gm Q8H IV 11/09/24 10:00 11/09/24 09:38 DC Piperacillin Sod/ Tazobactam Sod (Zosyn 3.375gm+NS 50ml) 3.375 gm Q8H IV 11/09/24 10:00 11/19/24 09:59 DC 11/19/24 02:20 3.375 GM Polyethylene Glycol (MIRalax 3350 17 GM POWD.PACK) 17 gm DAILY PO 11/09/24 09:00 12/09/24 08:59 11/23/24 08:48 17 GM Potassium Phosphate 250 ml @ 42 mls/hr AD PRN IV LOW PHOS LEVEL 11/07/24 14:00 12/07/24 13:59 11/08/24 07:22 42 MLS/HR Potassium Chloride 100 ml @ 100 mls/hr AD PRN IV HYPOKALEMIA 11/07/24 14:00 12/07/24 13:59 11/24/24 05:53 100 MLS/HR Potassium Chloride (K-Dur/Klor-Con 20meq) 20 meq AD PRN PO POTASSIUM PROTOCOL 11/14/24 00:30 12/14/24 00:29 11/24/24 09:29 20 MEQ Potassium Chloride (KCl 10% Elixir 20meq/15ml) 20 meq AD PRN PO POTASSIUM PROTOCOL 11/14/24 00:30 12/14/24 00:29 11/21/24 08:34 20 MEQ Propofol 100 ml @ 0 mls/hr AD PRN IV SEDATION 11/07/24 14:00 11/11/24 13:59 DC Sodium Bicarbonate (Sodium Bicarb 50meq 50ml Vial) 50 meq AD PRN IV OTHER[SEE DOSING INSTRUCTIONS] 11/07/24 14:00 11/10/24 13:59 DC 11/08/24 00:54 50 MEQ Sodium Chloride 250 ml @ 0 mls/hr Q0M IV 11/18/24 10:00 12/18/24 09:59 11/18/24 10:13 250 MLS/HR Sodium Chloride 500 ml @ 0 mls/hr AD IV 11/07/24 14:00 12/07/24 13:59 11/10/24 00:41 3 MLS/HR Sodium Chloride 1,000 ml @ 10 mls/hr ONCE IV 11/07/24 14:00 11/08/24 13:59 DC 11/07/24 20:11 10 MLS/HR Sodium Chloride 1,000 ml @ 100 mls/hr Q10H IV 11/06/24 12:30 11/06/24 15:29 DC Sodium Chloride (NS Flush 10ml) 10 ml Q8H PRN IVP IV LINE FLUSH 11/07/24 14:00 12/07/24 13:59 Sucralfate (Carafate) 1 gm TID PO 11/08/24 21:00 12/08/24 20:59 11/24/24 08:54 1 GM Tramadol HCl (UltRAM) 25 mg Q6H PRN PO MODERATE PAIN (4-6) 11/07/24 14:00 11/09/24 08:37 DC Tramadol HCl (UltRAM) 50 mg Q6H PRN PO SEVERE PAIN (7-10) 11/07/24 14:00 11/09/24 08:37 DC 11/08/24 23:30 50 MG Vitamin B Complex (Vitamin B-12) 1,000 mcg DAILY IM 11/07/24 09:00 11/13/24 08:59 DC 11/12/24 09:03 1,000 MCG Vitamin B Complex (Vitamin B-12) 1,000 mcg DAILY PO 11/14/24 09:00 12/14/24 08:59 11/24/24 08:54 1,000 MCG DIAGNOSTICS / RADIOLOGY: [ ] PATIENT: CLARE VALADEZ MR#: [id number] : 1955 SEX: M AGE: 69 LOCATION: [facility] ORDER 54 STATUS: ADM IN REPORT#: [id number] SERVICE 53 REASON: picc line placement ORDERING PHYSICIAN: BRYON THOMPSON MD PROCEDURE: CXR1VW - CHEST 1VW EXAM: XR Chest, 1 View. CLINICAL HISTORY: Peripherally inserted central catheter placement and evaluation for pneumothorax. COMPARISON: Computed radiography chest, single view from 11/23/2024. FINDINGS: LUNGS: The lungs show no focal airspace consolidation. The examination is limited by mild patient rotation, which may subtly affect the apparent cardiomediastinal contours and assessment of subtle findings. PLEURAL SPACES: No pleural effusion or pneumothorax. HEART: The heart size is normal. The cardiomediastinal silhouette is within normal size and contour limits for this projection. BONES: Median sternotomy changes are present. No acute osseous abnormality is identified. LINES AND TUBES: A right side PICC line is present with the tip at the cavoatrial junction. Previously noted left-sided chest tube and right IJ central line are not visualized on the current examination. IMPRESSION: 1. No acute cardiopulmonary process. 2. Right-sided PICC line with tip at the cavoatrial junction, in expected position. 3. Previously seen left-sided chest tube is no longer present. 4. Several stable chronic and incidental findings are noted, as detailed in the body of the report. 5. Technical limitation: mild rotation on this single-view examination. /[place] DICTATED BY: JOSSY BIGGS MD DATE: 11/23/242058 ELECTRONICALLY SIGNED BY: JOSSY BIGGS MD DATE: 11/23/242058 ASSESSMENT: Coronary artery disease, POA, s/p CABG 3v and redo sternotomy with redo of graft failure now s/p CABG with 4v Postop acute anemia requiring transfusion Acute kidney injury Hyperlipidemia, POA Hypothyroidism, POA Peripheral artery disease, suspected Carotid artery stenosis PLAN: Coronary artery disease, POA s/p CABG 3v and redo sternotomy with redo of graft failure now s/p CABG with 4v * Administer aspirin 325 mg p.o. now and then continue aspirin 81 mg p.o. daily * Troponin every 6 hours, serial troponin levels are 9-9-12-11. * Supplemental oxygen as needed to maintain SpO2 greater than 94% * A cardiology consult has been placed for evaluation of CAD in patient with exertional chest pain and vascular disease. 11/04/24 * Echocardiogram was done which revealed aortic valve: trileaflet, mildly sclerotic, and opens well. * In coronary CT angiography there is mixed calcified and noncalcified plaque in the proximal LAD with 80-90% stenosis. Left circumflex coronary artery: Normal caliber, nondominant and gives rise to a large OM branch. There is mixed calcified and noncalcified plaque in the mid LCx with 80-90% stenosis. * Left heart catheterization with selective right and left coronary angiography was performed which showed critical left main disease. Severe ostial RCA stenosis. 11/06/24 * Cardiac catheterization demonstrated a very tight left main lesion and the patient is referred for surgical revascularization. * Patient is POD 17 S/P CABG, patient is being managed in the ICU per protocol. * His impella setting is decreased to P3. planning to further wean off. * We will continue to follow Cardiology and critical care recommendations. * He is on heparin drip and off lovenox. * Hematology saw the patient and they recommended to start folic acid, vitamin B12, ordered SPEP, UPEP, free light chains. kappa light chain - 203, Lambda light chain -29.5. They think that the patient might be having hemolytic anemia which could be the reason for his graft clotting after surgery. * Cardiology plan to wean him of the pressors then impella. Peripheral vascular disease, Suspected * Patient has history of exertional bilateral leg pain * Diminished peripheral pulses * A SERA has been ordered due to the patients complaint of bilateral lower extremity claudication, and numbness/tingling in bilateral lower extremities. * Clear aspirin 81 mg daily and statin 40mg * Encouraged supervised exercise therapy for claudication * Counseled on continued smoking cessation 11/04/24 Peripheral Neuropathy * Vitamin B12 has been ordered to rule out peripheral neuropathy.on 11/06/24, 11/17/24 * Complained of numbness and tingling in his limbs. * Vitamin B12 level was measured which showed [id number]. * Patient has been started on vitamin B12 supplement 1000 mcg for 6 days. Carotid artery stenosis * Presence of bilateral carotid bruit on exam, suspicion for significant stenosis * Risk factor modification: Smoking cessation, BP control, glycemic control. 11/04/24 * Carotid artery ultrasound showed Bilateral ICA/CCA ratio more than 4.0 suggesting more than 70% stenosis. 11/05/24 * Cardiology recommended CT/MR angiogram when stable from surgical standpoint Hyperlipidemia * Continue home statin therapy atorvastatin 40 mg * Reinforce low-cholesterol, heart healthy diet (limit saturated fats, increase fiber, fruits and vegetables) * Encouraged regular physical activity as tolerated * Monitor lipid panel * Outpatient follow up with PCP/Cardiology for long-term lipid management and cardiovascular risks reduction Supportive measures * Start patient on GI prophylaxis * DVT prophylaxis * Monitor morning labs CBC and BMP daily * He is on heart healthy diet Hypothyroidism * Continue home dose of levothyroxine at 125 mcg daily * TSH 7.13 and Free T3 1.64. Postop acute anemia requiring transfusion - Patient's hemoglobin on 11/18 is 9. Patient has normocytic anemia - His iron panel from 11/17 showed low iron and low percentage saturation. - As per Hematology recommendations, patient was given IV iron sucrose 11/18 - Follow up with morning CBC. ATTESTATION BY PHYSICIAN I have seen and examined the patient. I reviewed the documentation, medical decision making, and treatment plan as noted by the resident physician above. I agree with the findings and plan of care. ALISA POLLARD MD, HARSHAVARDHA MD Nov 24, 2024 13:39
--- NOTE | 2024-11-24 14:01 | PN ---
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 Nursing reports no acute events overnight he is afebrile No family members at bedside Good saturations on room air Chest x-ray clear Vital signs stable Patient reporting BM overnight Plan: Follow CT surgeon recs Off pressors Impella per surgeon Cardiac diet Telemetry PT/OT when able Daily labs and chest x-ray in a.m. Critical care time 40 minutes, patient remains on Impella for cardiac support. Time excludes any education or procedural time Patient is awake alert and oriented x3. He denies chest pain palpitations or shortness for breath. He has been having occasional orthostatic hypotension when out of bed to chair. Continues with the Impella support of P4 and epinephrine at 0.08 mcg/kg per minute. Labs - white count normal, Hb - 9.9, platelet count of 605. Chemistries shows creatinine of 1.2 GFR of 11 glucose 125 mg/dL. He is currently on room air in no apparent respiratory distress. Chest x-ray with no acute cardiopulmonary process, lines appear in good position including Impella and central line to right IJ. We will continue follow CV surgery recommendations. REVIEW OF SYSTEMS: 12 point ROS reviewed with patient. Pertinent positives mentioned above. Otherwise negative. PHYSICAL EXAM: GENERAL: alert, weak, awake oriented x 3 HEENT: EOMI, Sclera non icteric, moist mucosa NECK: Supple, no JVD, trachea midline right IJ. Subclavian Impella 5.5 LUNGS: Rhonchi to right lower lobes. No wheezes HEART: Regular rate and rhythm. Normal S1 and S2, without murmurs mid incision line tenderness. Dressing clean dry and intact. ABD: Abdomen soft, nontender. Bowel sounds present EXT: No clubbing cyanosis or edema. Left femoral sheath. NEURO: Alert and oriented to person, follows commands Vital Signs (last 8hr) Date Time Temp Pulse Resp B/P (MAP) Pulse Ox O2 Delivery O2 Flow Rate FiO2 11/24/24 13:26 98.2 Room Air 21 11/24/24 11:28 93 18 11/24/24 11:28 92 18 N/A Room Air 21 11/24/24 10:00 74 22 100/54 (69) 94 21 11/24/24 09:00 86 26 131/63 (85) 91 21 11/24/24 08:25 86 57 96/56 (69) 96 11/24/24 08:10 69 19 91/54 (66) 97 11/24/24 08:00 67 19 88/45 (59) 95 11/24/24 07:51 98.1 11/24/24 07:45 96 Room Air* 0 21 11/24/24 07:15 74 17 87/52 (64) 93 21 11/24/24 07:09 74 18 N/A Room Air 21 11/24/24 07:07 72 18 11/24/24 07:00 76 21 83/56 (65) 95 21 LABS: Hematology Labs: Test 11/24/24 04:13 Range/Units White Blood Count 7.5 4.8-10.8 K/uL Red Blood Count 3.08 L 4.50-6.20 MIL/uL Hemoglobin 9.6 L 14.0-18.0 g/dL Hematocrit 30.0 L 42-54 % Mean Corpuscular Volume 97.4 79-99 fL Mean Corpuscular Hemoglobin 31.2 27.0-33.0 pg Mean Corpuscular Hemoglobin Concent 32.0 32.0-36.0 g/dL Red Cell Distribution Width 14.4 11.0-15.5 % Platelet Count 525 H 130-400 K/uL Mean Platelet Volume 9.2 7.5-10.5 fL Nucleated Red Blood Cells 0.0 0.0-0.19 % Chemistry Labs: Test 11/24/24 04:13 Range/Units Sodium Level 136 136-145 mmol/L Potassium Level 3.5 3.5-5.1 mmol/L Chloride Level 102 101-111 mmol/L Carbon Dioxide Level 25 21-32 mmol/L Blood Urea Nitrogen 10 7-18 mg/dL Creatinine 0.9 0.5-1.3 mg/dL Glomerular Filtration Rate Calc 93 >90 mL/min Random Glucose 104 70-105 mg/dL Total Calcium 8.5 8.5-10.1 mg/dL Coagulation Labs: Test 11/24/24 10:50 11/23/24 00:25 Range/Units Activated Partial Thromboplast Time 60.9 #H 26.3-35.5 SEC Prothrombin Time 11.4 9.6-11.6 SEC Prothromb Time International Ratio 1.08 0.85-1.15 DIAGNOSTICS / RADIOLOGY RESULTS: [ ] PLAN NEURO: Minimize central acting medications as possible. Fall Precautions. Well lighted room through the day and minimize interruptions through the night to prevent acute delirium. PULMONARY: Supplemental 02 as needed Titrate Fio2 to keep Spo2 > or = 90% DuoNebs and CPT as needed IS hourly while awake for pulmonary hygiene Out of bed to chair as tolerated VAP Bundle Bipap 12/6 fio2 50% RT to titrate FiO2 as needed to maintain O2 above 92% CARDIOVASCULAR: Follow hemodynamics. Titrate vasopressor to keep MAP >65 or systolic blood pressure >95mmHg DIPS: Epi LINES: Central venous catheter right IJ Impella 5.5 Chest tube A line Daniel catheter GI & NUTRITION: NPO for now Aspirations precautions Prokinetic agents and laxatives as needed KIDNEYS & ELECTROLYTES: Strict monitoring of intake and output Daily weights Avoid nephrotoxic agents Monitor electrolytes and replace as needed Goal urine output of 30mL/hr or 0.5mL/kg/hr Urine output 2 L in last 24 hours Chest tube drained 400 mL to lateral side Mediastinal drain 90 mL with I&O balance positive 230 mL ENDOCRINE: Maintain blood glucose between 100-180 at all times. Insulin sliding scale for blood glucose management INFECTIOUS DISEASE: Trend temperature. Nichols-culture if febrile. Micro: [ ] MRSA negative Antibiotics: [ ] Ancef HEMATOLOGY & COAGULATION: Monitor H&H. Keep Hgb > 7 Transfuse 1 unit of PRBC for Hgb < 7 Transfuse 1 pack of platelets of platelets < 20, 000 Watch for any signs and symptoms of bleeding SKIN: Pressure ulcer prevention per facility protocol Rehab: PT/OT Prophylaxis: GI: [ Protonix 40 mg IV b.i.d.] DVT: Heparin per CV Code Status: Full Resuscitation Disposition: [ SNOW MARTI PAC Nov 24, 2024 14:01
--- NOTE | 2024-11-24 17:28 | PN ---
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 Nursing reports no acute events overnight he is afebrile Patient is awake alert and oriented x3. He denies chest pain palpitations or shortness for breath. He has been having occasional orthostatic hypotension when out of bed to chair No family members at bedside Labs - white count normal, Hb - 9.6, platelet count of 525. Good saturations on room air Chest x-ray clear Vital signs stable Patient reporting BM overnight Plan: Follow CT surgeon recs Off pressors Impella per surgeon Cardiac diet Telemetry PT/OT when able Daily labs and chest x-ray in a.m. Critical care time 40 minutes, patient remains on Impella for cardiac support. Time excludes any education or procedural time REVIEW OF SYSTEMS: 12 point ROS reviewed with patient. Pertinent positives mentioned above. Otherwise negative. PHYSICAL EXAM: GENERAL: alert, weak, awake oriented x 3 HEENT: EOMI, Sclera non icteric, moist mucosa NECK: Supple, no JVD, trachea midline right IJ. Subclavian Impella 5.5 LUNGS: Rhonchi to right lower lobes. No wheezes HEART: Regular rate and rhythm. Normal S1 and S2, without murmurs mid incision line tenderness. Dressing clean dry and intact. ABD: Abdomen soft, nontender. Bowel sounds present EXT: No clubbing cyanosis or edema. Left femoral sheath. NEURO: Alert and oriented to person, follows commands Vital Signs (last 8hr) Date Time Temp Pulse Resp B/P (MAP) Pulse Ox O2 Delivery O2 Flow Rate FiO2 11/24/24 16:45 95 Room Air* 0 21 11/24/24 16:15 97.9 Room Air 21 11/24/24 16:00 71 21 113/67 (82) 95 21 11/24/24 15:00 71 19 97/60 (72) 97 21 11/24/24 14:00 73 19 109/51 (70) 95 21 11/24/24 13:26 98.2 Room Air 21 11/24/24 13:00 85 16 133/68 (89) 99 21 11/24/24 12:15 96 Room Air* 0 11/24/24 12:00 90 24 105/70 (82) 98 21 11/24/24 11:28 93 18 11/24/24 11:28 92 18 N/A Room Air 11/24/24 11:00 82 15 116/40 (65) 97 21 11/24/24 10:00 74 22 100/54 (69) 94 21 LABS: Hematology Labs: Test 11/24/24 04:13 Range/Units White Blood Count 7.5 4.8-10.8 K/uL Red Blood Count 3.08 L 4.50-6.20 MIL/uL Hemoglobin 9.6 L 14.0-18.0 g/dL Hematocrit 30.0 L 42-54 % Mean Corpuscular Volume 97.4 79-99 fL Mean Corpuscular Hemoglobin 31.2 27.0-33.0 pg Mean Corpuscular Hemoglobin Concent 32.0 32.0-36.0 g/dL Red Cell Distribution Width 14.4 11.0-15.5 % Platelet Count 525 H 130-400 K/uL Mean Platelet Volume 9.2 7.5-10.5 fL Nucleated Red Blood Cells 0.0 0.0-0.19 % Chemistry Labs: Test 11/24/24 04:13 Range/Units Sodium Level 136 136-145 mmol/L Potassium Level 3.5 3.5-5.1 mmol/L Chloride Level 102 101-111 mmol/L Carbon Dioxide Level 25 21-32 mmol/L Blood Urea Nitrogen 10 7-18 mg/dL Creatinine 0.9 0.5-1.3 mg/dL Glomerular Filtration Rate Calc 93 >90 mL/min Random Glucose 104 70-105 mg/dL Total Calcium 8.5 8.5-10.1 mg/dL Coagulation Labs: Test 11/24/24 16:42 10/13/25 00:25 Range/Units Activated Partial Thromboplast Time 56.8 H 26.3-35.5 SEC Prothrombin Time 11.4 9.6-11.6 SEC Prothromb Time International Ratio 1.08 0.85-1.15 DIAGNOSTICS / RADIOLOGY RESULTS: [ ] PLAN NEURO: Minimize central acting medications as possible. Fall Precautions. Well lighted room through the day and minimize interruptions through the night to prevent acute delirium. PULMONARY: Supplemental 02 as needed Titrate Fio2 to keep Spo2 > or = 90% DuoNebs and CPT as needed IS hourly while awake for pulmonary hygiene Out of bed to chair as tolerated VAP Bundle Bipap 12/6 fio2 50% RT to titrate FiO2 as needed to maintain O2 above 92% CARDIOVASCULAR: Follow hemodynamics. Titrate vasopressor to keep MAP >65 or systolic blood pressure >95mmHg DIPS: None LINES: Impella 5.5 A line GI & NUTRITION: NPO for now Aspirations precautions Prokinetic agents and laxatives as needed KIDNEYS & ELECTROLYTES: Strict monitoring of intake and output Daily weights Avoid nephrotoxic agents Monitor electrolytes and replace as needed Goal urine output of 30mL/hr or 0.5mL/kg/hr ENDOCRINE: Maintain blood glucose between 100-180 at all times. Insulin sliding scale for blood glucose management INFECTIOUS DISEASE: Trend temperature. Nichols-culture if febrile. Micro: [ ] MRSA negative Antibiotics: [ ] HEMATOLOGY & COAGULATION: Monitor H&H. Keep Hgb > 7 Transfuse 1 unit of PRBC for Hgb < 7 Transfuse 1 pack of platelets of platelets < 20, 000 Watch for any signs and symptoms of bleeding SKIN: Pressure ulcer prevention per facility protocol Rehab: PT/OT Prophylaxis: GI: [ Protonix 40 mg IV b.i.d.] DVT: Heparin per CV Code Status: Full Resuscitation Disposition: [ TBD ATTESTATION BY PHYSICIAN I have seen and examined the patient. I reviewed the documentation, medical decision making, and treatment plan as noted by the resident provider above. I agree with the findings and plan of care. Dimitrios Paris MD, LAKSHMI MD Nov 24, 2024 17:28
[2024-11-25] VITALS (39 sets, daily range): BP systolic 76–129; BP diastolic 37–66; PULSE 64–77; RESP 13–35; TEMP 97.8–98.6; O2SAT 94–100
--- NOTE | 2024-11-25 03:03 | PN ---
SUBJECTIVE: The patient is status post coronary artery bypass grafting using an L5.5 Impella left ventricular assist device. He is status post coronary artery bypass grafting over 2 weeks. The patient's postop course has been complicated for orthostatic hypotension. He has been finally weaned off of epinephrine drip and his Impella is down to P4 support. OBJECTIVE: VITAL SIGNS: Reveal temperature 98.1, blood pressure is 87/52, pulse 74, respirations 17, oxygen saturation 96%. HEENT: Reveals normocephalic, atraumatic. Extraocular movements intact. He is off of oxygen. NECK: He has a left cervical Impella catheter. His right cervical central venous line has been removed and has been replaced by a right upper extremity PICC line. ABDOMEN: Soft and nontender. LUNGS: Unlabored at rest and clear to auscultation. CHEST: His sternotomy wound is healing well. His chest tubes have been removed. GENITOURINARY: He has a Daniel catheter in his bladder. EXTREMITIES: He has LYNDA stockings on his lower extremities. ASSESSMENT AND PLAN: 1. Status post coronary artery bypass grafting. We will back off on his Lasix, liberalize his salt intake, and continue midodrine 15 mg t.i.d. We will decrease his Impella to P3 and obtain an echocardiogram on P2 tomorrow in hopes of possibly removing the Impella catheter. Continue aspirin. Continue to hold metoprolol. 2. Hypercholesterolemia. Lipitor at bedtime, low cholesterol, cardiac diet. 3. Deep venous thrombosis prophylaxis. The patient is on a heparin drip for his Impella catheter. This should protect him from deep vein thrombosis. Time spent 30 minutes. The patient is critically ill in the ICU. TID: [id number] RECEIPT: [id number]
[2024-11-25 04:56] LABS: NUCLEATED RED BLOOD CELLS 0.0 % (0.0-0.19); PLATELET COUNT (AUTO) 433.0 K/uL (130-400); RED BLOOD CELL COUNT(AUTO) 3.07 MIL/uL (4.50-6.20); RED CELL DISTRIBUTION WIDTH 14.1 % (11.0-15.5); WHITE BLOOD COUNT (AUTO) 6.6 K/uL (4.8-10.8)
[2024-11-25 05:11] LABS: CREATININE 1.2 mg/dL (0.5-1.3); GLOMERULAR FILTR. RATE CALC 66.0 mL/min (>90); GLUCOSE,RANDOM 99.0 mg/dL (70-105); SODIUM SERUM 138.0 mmol/L (136-145); UREA NITROGEN, BLOOD 12.0 mg/dL (7-18)
--- NOTE | 2024-11-25 09:00 | NUR ---
HEPARIN STOPPED AT THIS TIME
--- NOTE | 2024-11-25 10:37 | PN ---
[facility] CARDIOLOGY PROGRESS NOTE Date Patient Seen: Nov 25, 2024 Time of Visit: 10:35 Interval History: No acute events overnight ,currently on Impella P-3 support , 24 hrs off pressors , currently NPO and scheduled for impella removal. Physical Examination: GENERAL: No acute distress. HEAD: Normal with no signs of head trauma. EYES: PERRLA, EOMI, conjunctiva and sclera normal. ENT: Hearing grossly intact, normal oropharynx. NECK: Supple without JVD. There is no tenderness, lymphadenopathy, or masses. No thyromegaly. Normal carotid upstrokes without bruits. LUNGS: Clear breath sounds bilaterally. No wheezes, or rhonchi.chest tubes are in HEART: Normal rate and rhythm. Normal S1 and S2 without murmurs, gallop or rub. VASC: Peripheral pulses +2 bilaterally. ABD: Bowel sounds normal, soft, nontender, no masses, no organomegaly. No audible bruits. : Not examined LYMPH: No lymphadenopathy noted. EXT: No clubbing, cyanosis or edema. SKIN: No rashes or lesions noted. NEURO: Awake, alert, and oriented x3. No focal sensory or strength deficits noted. Laboratory: [ ] Hematology Labs: Test 11/25/24 04:34 Range/Units White Blood Count 6.6 4.8-10.8 K/uL Red Blood Count 3.07 L 4.50-6.20 MIL/uL Hemoglobin 9.6 L 14.0-18.0 g/dL Hematocrit 30.1 L 42-54 % Mean Corpuscular Volume 98.0 79-99 fL Mean Corpuscular Hemoglobin 31.3 27.0-33.0 pg Mean Corpuscular Hemoglobin Concent 31.9 L 32.0-36.0 g/dL Red Cell Distribution Width 14.1 11.0-15.5 % Platelet Count 433 H 130-400 K/uL Mean Platelet Volume 9.2 7.5-10.5 fL Nucleated Red Blood Cells 0.0 0.0-0.19 % Chemistry Labs: Test 11/25/24 04:34 Range/Units Sodium Level 138 136-145 mmol/L Potassium Level 4.0 3.5-5.1 mmol/L Chloride Level 102 101-111 mmol/L Carbon Dioxide Level 25 21-32 mmol/L Blood Urea Nitrogen 12 7-18 mg/dL Creatinine 1.2 0.5-1.3 mg/dL Glomerular Filtration Rate Calc 66 >90 mL/min Random Glucose 99 70-105 mg/dL Total Calcium 8.6 8.5-10.1 mg/dL Magnesium Level 2.40 1.80-2.40 mg/dL Coagulation Labs: Test 11/24/24 16:42 Range/Units Activated Partial Thromboplast Time 56.8 H 26.3-35.5 SEC Diagnostics / Radiology: [Copy/Paste Echos/Imaging Report here] Impression and Plan: Abnormal CT coronary angiogram 11/05/2024 demonstrating a CAD-RADs score of 4B mixed calcified and noncalcified plaque in the left main with 50% stenosis, 80- 90% stenosis in the proximal LAD and 80-90% stenosis in mid left circumflex Critical left main and ostial RCA stenosis by cardiac catheterization 11/06/2024 S/p CABG with initial graft failure converted to Impella supported redo (CHILD- LAD, SVG-OM2, SVG-RCA and SVG-LAD) on 11/07/[address] Meza LVEF of 60-65% by 2D echocardiogram 11/05/2024 Mild ischemic cardiomyopathy with an LVEF of 40-45% by 2D echocardiogram 03/2024 Bilateral ICA disease with >70% stenosis by Doppler on 11/04/2024 Transaminitis, improved Hyperlipidemia CAD s/p PTCA to unknown vessel approximately 30 years ago Ex-smoker of 1 PPD with cessation 2 months ago Graves disease S/p CABG with initial graft failure converted to Impella supported redo (CHILD- LAD, SVG-OM2, SVG-RCA and SVG-LAD) on 11/07/[address] Derrick Patel at P-3 -currently denies any chest pain, palpitations, dyspnea or any other anginal equivalent -successfully weaned off pressor support -The patient was noted with severe orthostatic hypotension during PT on 11/23/2024 -current blood pressure average 120s. -Continue Midodrine 15mg TID and Florinef 0.1 mg every 12 hours -continue checking orthostatics every 12 hours -Currently NPO will undergo Impella removal today in the OR -Continue Aspirin 81 mg daily, Plavix 75 mg daily, Atorvastatin 40 mg q.h.s., -Continue management per Cardiothoracic surgery -PT/OT Carotid artery disease Carotid US 11/05: Mild intimal thickening in the bilateral carotid arteries and their branches. Bilateral ICA/CCA ratio is more than 4.0 suggesting more than 70% stenosis. Raised velocities in the bilateral external and internal carotid arteries. -Recommend CT/MR angiogram when stable from surgical standpoint -Continue Aspirin 81 mg daily and Atorvastatin 40 mg q.h.s. Thank you for this consult cardiology will continue to follow along Gurvinder salazar MD ATTESTATION BY PHYSICIAN I have seen and examined the patient, reviewed the above documentation, participated in medical decision making, made necessary modifications, and agree with the treatment plan as documented by my mid-level provider above. MD JUAN Caldwell JAMES R MD Nov 25, 2024 10:37
--- NOTE | 2024-11-25 10:41 | HMCSR ---
APPROVED REPORT EXAM: Two-dimensional and M-mode echocardiogram with Doppler and color Doppler. INDICATION ICD: Impella P2 2D Dimensions RVDd3.8 cmLVEF(%)7.2 (>50%)LVED Vol(simp.)84.0 mL IVSd0.7 (0.7-1.1cm)FS(%)3 %LVES Vol(simp.)46.0 mL LVDd5.2 (3.8-5.6cm)LA (2D)3.6 (1.6-4.0cm)LVEF(%, simp.)46 % PWd0.8 (0.7-1.1cm)Ao Root(2D)3.3 (2.0-3.7cm)LA ESV INDEX (BP)31.89 mL/m2 IVSs1.0 cmLVOT diam2.1 (1.8-2.4cm) LVDs5.1 (2.5-4.0cm) PWs1.0 cm Deformation Strain Apical 4-8.4 % Apical 2-11.5 % Apical 3-10.0 % Global Strain-10.0 % M-Mode Dimensions LA (MM)3.9 (1.6-4.0cm) Ao Root(MM)3.5 (2.0-3.7cm) Aortic Valve AoV Vmax1.0 m/Kylah Peak GR3.8 mmHgLVOT Vmax1.1 m/s AoV VTI0.1 mAo Mean GR1.8 mmHgLVOT VTI0.16 m ASTRID (VMAX)3.81 cm2AVA (VTI) 3.8 cm2 Mitral Valve MV E Vmax60.5 cm/sDECEL [id number] ms MV A Vmax78.2 cm/sP 1/2 T37 ms E/A ratio0.8MVA (PHT)6.0 cm2 TDI E/E' [id number]/E' Lateral6.9 Medial E' Peak V5.21 cm/sLateral E' Peak V8.81 cm/s Pulmonary Valve PV Vmax1.1 m/sPV VTI0.20 mPV Mean GR2.9 mmHg PV Peak GR4.6 mmHg Left Ventricle The left ventricle is normal size. Impella device 6.5 cm into LV. Reduced GLS -10.0% [place] is akinetic . There is normal left ventricular wall thickness. LVEF is difficult to assess due to arrhythmia but is estimated at 40-45%. The left ventricular diastolic function is normal. Right Ventricle The right ventricle is normal size. Right ventricular systolic function is moderately reduced. Atria The left atrium size is normal. The right atrium size is normal. Aortic Valve Aortic valve is trileaflet and mildly thickened. No aortic regurgitation is present. There is no aort ic valvular stenosis. Mitral Valve The mitral valve is normal in structure. There is trace of mitral valve regurgitation noted. There is no mitral valve stenosis. Tricuspid Valve The tricuspid valve is normal in structure. There is no tricuspid valve regurgitation noted. Pulmonic Valve The pulmonary valve is normal in structure. There is no pulmonic valvular regurgitation. Great Vessels The aortic root is normal in size. The IVC is normal in size and collapses >50% with inspiration. Pericardium There is no pericardial effusion. Other Information Quality : AdequateRhythm : NSR Conclusion LVEF is difficult to assess due to arrhythmia but is estimated at 40-45%. Impella device 6.5 cm into LV. [place] is akinetic.
--- NOTE | 2024-11-25 13:32 | PN ---
[facility] PROGRESS NOTE Date Patient Seen: Nov 25, 2024 Time of Visit: 13:24 Supervising Physician: Dr Dimitrios Paris Primary Care Physician: Self Referral Outpatient Specialists: [ ] Inpatient Consults: PEG, Dr Jacobo, Dr Wellington , Dr Meza PROBLEM LIST: Cardiogenic shock SCAI stage C requiring MCS with IMpella 5.5 MvCAD s/p CABG x 3+1 w/ redo on 11/07/24 Postop acute anemia requiring transfusion ELSA Hyperlipidemia Sclerotic nodule on the non coronary cusp on 2D echo Normal ventricular diastolic function with LVEF of 60-65% on 2D echo 11/05/24 Former smoker Graves disease Obesity INTERVAL HISTORY: Patient is seen and examined, all labs and imaging have been reviewed, patient i s sitting comfortably at bedside chair. No acute events overnight. He is off any pressors He is currently at Impella P3, they put him at P2 during an echocardiogram and he tolerated well. Plan is possible removal today in the OR. Patient with urine output of 800 out overnight He is tolerating his diet No complaints, no syncope when transferred to the chair Plan: Follow CT surgeon recs Off pressors Impella per surgeon Cardiac diet Telemetry PT/OT when able Daily labs and chest x-ray in a.m. INOs Critical care time 41 minutes, patient remains on Impella for cardiac support. Time excludes any education or procedural time REVIEW OF SYSTEMS: 12 point ROS reviewed with patient. Pertinent positives mentioned above. Oth erwise negative. PHYSICAL EXAM: GENERAL: alert, weak, awake oriented x 3 HEENT: EOMI, Sclera non icteric, moist mucosa NECK: Supple, no JVD, trachea midline right IJ. Subclavian Impella 5.5 LUNGS: Rhonchi to right lower lobes. No wheezes HEART: Regular rate and rhythm. Normal S1 and S2, without murmurs mid incision line tenderness. Dressing clean dry and intact. ABD: Abdomen soft, nontender. Bowel sounds present EXT: No clubbing cyanosis or edema. Left femoral sheath. NEURO: Alert and oriented to person, follows commands Vital Signs (last 8hr) Date Time Temp Pulse Resp B/P (MAP) Pulse Ox O2 Delivery O2 Flow Rate FiO2 11/25/24 12:03 70 20 11/25/24 11:00 67 20 93/50 95 Nasal Cannula 2.0 11/25/24 10:00 69 15 105/56 96 Nasal Cannula 2.0 10/15/25 09:00 69 14 103/41 95 Nasal Cannula 2.0 11/25/24 08:00 97.9 73 22 101/66 95 Nasal Cannula 2.0 11/25/24 08:00 95 Nasal Cannula* 2 28 11/25/24 07:45 76 20 11/25/24 07:43 76 20 N/Cannula Oximizer Hi LPM 2.0 28 11/25/24 07:00 69 19 85/50 95 Nasal Cannula 2.0 11/25/24 06:00 68 19 76/38 (51) 96 11/25/24 05:53 75 19 85/55 (65) 96 LABS: Hematology Labs: Test 11/25/24 04:34 Range/Units White Blood Count 6.6 4.8-10.8 K/uL Red Blood Count 3.07 L 4.50-6.20 MIL/uL Hemoglobin 9.6 L 14.0-18.0 g/dL Hematocrit 30.1 L 42-54 % Mean Corpuscular Volume 98.0 79-99 fL Mean Corpuscular Hemoglobin 31.3 27.0-33.0 pg Mean Corpuscular Hemoglobin Concent 31.9 L 32.0-36.0 g/dL Red Cell Distribution Width 14.1 11.0-15.5 % Platelet Count 433 H 130-400 K/uL Mean Platelet Volume 9.2 7.5-10.5 fL Nucleated Red Blood Cells 0.0 0.0-0.19 % Chemistry Labs: Test 11/25/24 04:34 Range/Units Sodium Level 138 136-145 mmol/L Potassium Level 4.0 3.5-5.1 mmol/L Chloride Level 102 101-111 mmol/L Carbon Dioxide Level 25 21-32 mmol/L Blood Urea Nitrogen 12 7-18 mg/dL Creatinine 1.2 0.5-1.3 mg/dL Glomerular Filtration Rate Calc 66 >90 mL/min Random Glucose 99 70-105 mg/dL Total Calcium 8.6 8.5-10.1 mg/dL Magnesium Level 2.40 1.80-2.40 mg/dL Coagulation Labs: Test 11/24/24 16:42 Range/Units Activated Partial Thromboplast Time 56.8 H 26.3-35.5 SEC DIAGNOSTICS / RADIOLOGY RESULTS: [ ] PLAN NEURO: Minimize central acting medications as possible. Fall Precautions. Well lighted room through the day and minimize interruptions through the night to prevent acute delirium. PULMONARY: Supplemental 02 as needed Titrate Fio2 to keep Spo2 > or = 90% DuoNebs and CPT as needed IS hourly while awake for pulmonary hygiene Out of bed to chair as tolerated VAP Bundle Bipap 12/6 fio2 50% RT to titrate FiO2 as needed to maintain O2 above 92% CARDIOVASCULAR: Follow hemodynamics. Titrate vasopressor to keep MAP >65 or systolic blood pressure >95mmHg DIPS: None LINES: Impella 5.5 A line GI & NUTRITION: NPO for now Aspirations precautions Prokinetic agents and laxatives as needed KIDNEYS & ELECTROLYTES: Strict monitoring of intake and output Daily weights Avoid nephrotoxic agents Monitor electrolytes and replace as needed Goal urine output of 30mL/hr or 0.5mL/kg/hr ENDOCRINE: Maintain blood glucose between 100-180 at all times. Insulin sliding scale for blood glucose management INFECTIOUS DISEASE: Trend temperature. Nichols-culture if febrile. Micro: [ ] MRSA negative Antibiotics: [ ] HEMATOLOGY & COAGULATION: Monitor H&H. Keep Hgb > 7 Transfuse 1 unit of PRBC for Hgb < 7 Transfuse 1 pack of platelets of platelets < 20, 000 Watch for any signs and symptoms of bleeding SKIN: Pressure ulcer prevention per facility protocol Code Status: Full Resuscitation Disposition: [ TBSNOW PIMENTEL PAC Nov 25, 2024 13:32
--- NOTE | 2024-11-25 14:06 | PN ---
[facility] PROGRESS NOTE Date of Service: Nov 25, 2024 Time of Service: 14:06 SUBJECTIVE: Mr. Valadez a 68-year-old male that was seen and examined today on 11/03/2024. Patient reports that he came to the emergency department with a chief complaint of chest pain. Onset was two or three years ago. He had similar repeated episodes months back which resolved on its own. Today's episode began at 11:00 a.m. Location is midsternal. Duration is on and off. Character is described as "neck someone is pushing a knuckle into the center of my chest. The chest pain did not radiate to shoulder, neck or jaw. "There was no alleviating factors. There was no aggravating factors. Patient reports that symptoms seemingly resolve on their own. He denies nausea, vomiting, fever and any other associated symptoms. Patient denies any associated shortness of breath. Patient has a past medical history of hyperlipidemia and Graves disease. He has been taking atorvastatin and Synthroid as his home medications. Today in the emergency department WBC 5.8, hemoglobin 12.9 platelets 197. His chemistries were within normal limits sodium 140, potassium 4.2, blood urea nitrogen 15 and creatinine 1.0. His electrocardiogram showed normal sinus rhythm. Patient will be admitted for further evaluation and related recommendations in Med-Surg. 11/04/24 Patient was evaluated at the bedside in ED-09. He reports that he is having chest pain that comes and goes. The patient reports having 2 episodes of chest pain in the last hour. He denies associated symptoms such as shortness of breath, palpitation, diaphoresis, dizziness, nausea or syncope. He does however complain of muscle pain in his lower limbs described as a dull aching discomfort that begins in the hip region that is worsened with movement. The patient complains of tingling and numbness in his feet bilaterally. No fever, chills or recent infection reported. Appetite and oral intake are normal. No other acute complaints at this time. On physical exam, a systolic murmur was auscultated over the aortic area. Bilateral carotid bruits are present. Lower extremities are cool to the touch with diminished pedal pulses. Patient reports bilateral leg muscle pain with exertion (suggestive of claudication), and chronic numbness and tingling in the feet. Patient reports recently quitting smoking tobacco for 2 months. He had a 1 pack a day smoking history since 1968. The [facility] and denies following with a cupola liner. The patient says his chest pain has been ongoing for the past 3 years, and that it gets worse with exertion and at rest. 11/05/24 Patient was evaluated at the bedside room 231. He was hemodynamically stable. Hi symptoms has improved significantly. He doesn't complain of chest pain, shortness of breath and any other associated symptoms. Echocardiogram was done which revealed aortic valve: trileaflet, mildly sclerotic, and opens well. Carotid artery ultrasound showed Bilateral ICA/CCA ratio more than 4.0 suggesting more than 70% stenosis. 11/06/24 Patient was evaluated at the bedside room 231. He was hemodynamically stable. Hi symptoms has improved significantly. He doesn't complain of chest pain, shortness of breath and any other associated symptoms. In coronary CT angiography there is mixed calcified and noncalcified plaque in the proximal LAD with 80-90% stenosis. Left circumflex coronary artery: Normal caliber, nondominant and gives rise to a large OM branch. There is mixed calcified and noncalcified plaque in the mid LCx with 80-90% stenosis. CAD-RAD of 4B. Left heart catheterization with selective right and left coronary angiography was performed which showed critical left main disease. 11/07/24 Patient was evaluated at the bedside room 231. He was hemodynamically stable. He doesn't complain of chest pain, shortness of breath and any other associated symptoms. He complaints of headache 8/10 of intensity after the administration of Nitroglycerin. Cardiac catheterization demonstrated a very tight left main lesion and the patient is referred for surgical revascularization. As per Dr Meza: Surgery is planned for today. 11/08/24: Patient was seen and evaluated this morning at bedside. The patient is POD 1 s/p CABG. Patient is currently being managed in the ICU. The patients most recent ABG shows a pH of 7.43, ABG PCO2 47, ABG PO2 77.9, ABG HCO3 30.8. Recent ABG shows improving lactic acid, from 8 to 3.85. The patients chemistry reveals a sodium level 157, potassium level 3.4, creatinine 1.9, BUN 19, GFR 38, phosphorous 2.2. Liver enzymes are trending up, with an ALT level at 325 and an AST level at 869. The patients home medication of Synthroid has been restarted. Chest x-ray ordered today, results pending. We will continue to follow recommendations from critical care team, and cardiology. 11/09/2024: Patient is seen and evaluated in the room 213. The patient is POD 2 s/p CABG. Patient is currently being managed in the ICU. He is complaining of pain. His vitals are in the normal range. His Hb is 11.1, WBC is 19.1, Plt is 115, sodium is 154, chloride is 113, glucose is 122. His recent ABG shows that pH is 7.472, pO2 is 80.1, bicarb is 30.4, Hb is 11.4, lactic acid is 1.63. His chest X-ray on 11/08 showed improved aeration within the left perihilar and left basilar regions. As per nurse he is having intervention confusion, stopped lidocaine and they also weaning on pressors norepinephrine and epinephrine. The drain output from left anterior chest is 20ml, mediastinal lateral is 160ml, mediastinal mediastinal is 300ml, right anterior chest is 160 ml. We will continue to follow recommendations from critical care team, and cardiology. 11/10/2024: Patient was seen and evaluated this morning at bedside. The patient is POD 3 s/p CABG. Patient is currently being managed in the ICU. He is not having any symptoms today. His vitals are in the normal range. His labs are normal except for Hb is 10.1, WBC is 14.7, plt is 85, sodium is 147, AST is 156, ALT is 95, APTT is 25.5. ABG shows that his pH is 7.4, lactate is 1.22, bicarb is 31. The drain output from left anterior chest is 170 ml, mediastinal mediastinal is 130ml. We will continue to follow recommendations from critical care team, and cardiology. 11/11/2024: Patient was seen and evaluated this morning at bedside. The patient is POD 4 s/p CABG. He is not having any symptoms today. His vitals are in the normal range. His labs are normal except for hemoglobin is 9.7, WBC is 11.7, platelet is 106, glucose is 107, AST is 87, ALT is 62. ABG shows pH is 7.468, lactic acid is 1.03. We will continue to follow recommendations from critical care team, and cardiology. 11/12/2024: Patient was seen and evaluated in the room 218. The patient is POD 5 s/p CABG. He is having dizziness and ache in the left shoulder. His vitals are in the normal range. His labs are normal except for hemoglobin 9.6, platelets is 94, AST 75. ABG shows pH 7.487, lactic acid 1.2. Currently he is not on any pressors. Cardiovascular surgery tried to wean Impella. They decreased impella setting to P4 but his blood pressure is low so they went back to P5. Cardiovascular surgery also increased his midodrine dose to 15mg. His chest X- ray showed mild pulmonary vascular congestion. He had a bowel movement and good urine output. He is using incentive spirometry well. We will continue to follow recommendations from the critical Care team and Cardiology. 11/13/2024: Patient was seen and evaluated in the room 218. The patient is POD 6 s/p CABG. He is having dizziness and generalized ache. His vitals are in the normal range. His labs are normal except for Hb is 8.9, calcium is 7.4, glucose is 140. His chest x-ray showed that mild borderline cardiomegaly with median sternotomy with cardiac and aspiration procedure, support lines in satisfactory position, no evidence of airspace consolidation or pulmonary venous congestion. He is restarted on norepinephrine and epinephrine drip and impella at P5 as he is hypotensive and has bradycardia. The nurse told me that she will consult anesthesia for changing the arterial line as his line is not working. He is on heparin drip and off of lovenox. The drain output from left anterior chest is 260 ml, mediastinal mediastinal is 60ml. Hematology was consulted as he is in a hypercoagulable state. 11/14/2024: Patient was seen and evaluated in the room 218. The patient is POD 7 s/p CABG. His vital signs are in the normal range except for blood pressure is 88/64. His labs are normal except for hemoglobin is 8.8, APTT is 62.4, glucose is 133, calcium is 7.5, AST is 61. Chest X-ray showed mild cardiomegaly with median sternotomy with cardiac revascularization procedure, support lines are in satisfactory position. His impella is increased to P7 as he is hypotensive and bradycardic. He is on epinephrine. The drain output from left anterior chest is 80ml and from mediastinal mediastinal is 20ml. Hematology saw the patient and they recommended to start folic acid, vitamin B12, ordered SPEP, UPEP, free light chains. They think that the patient might be having hemolytic anemia which could be the reason for his graft clotting after surgery. 11/15/2024: He was evaluated at the bedside this morning. The patient is POD 8 s/p CABG. He is on Impella support with blood pressure 89/64 with map 72. Remarkable lab is for hemoglobin 9.2. Chest x-ray revealed mildly improved right lower lobe airspace opacity with stable cardiac support device and median sternotomy. His MPOA is encouraged to P8 and weaned off the pressors. Hematology recommending Tatiana test to rule out autoimmune hemolytic anemia. Hematology, CT surgery, critical care and cardiology on the board. Rest of the plan as discussed below. 11/16/2024: He was evaluated at the bedside this morning. The patient is POD 9 s/p CABG. Impella support has been weaned to P5 today. As per Dr. Khan, epi will be turned on at 0.03 mcg/kg/min and Impella performance level will be decreased to p4 tomorrow morning. Today, patient's BP is at 102/62, 79bpm and he is on 3L O2 nasal cannula. He is pending direct tatiana test, SPEP, UPEP and Free Light Chain assay as per hematology. His Hb from today is 8.9. Chest Tube drainage is at 201 ml. Hematology, CT surgery, critical care and cardiology on the board. 11/17/2024: He was evaluated at the bedside this morning. The patient is POD 10 s/p CABG. Impella support has been weaned to P4 today. Patient is currently on epinephrine 0.03 mcg/kg/minute as per Dr. Khan. Patient is receiving Lasix for diuresis and her urine output in the past 24 hours has been for 4050 mL. Mediastinal mediastinal chest tube drainage is 40 mL. Left anterior chest tube drainage is 104 mL. Hematology, CT surgery, critical care and cardiology on the board. 11/18/2024: He was evaluated at the bedside this morning. The patient is POD 11 s/p CABG. Impella support continues on P4 today. Plan is to wean off further tomorrow. Patient is currently on epinephrine 0.05 mcg/kg per minute. His blood pressure is running low, 88/48. Patient is receiving Lasix for diuresis and his urine output in the past 24 hours has been for 3400 mL. Mediastinal mediastinal chest tube drainage is 60 mL. Left anterior chest tube drainage is 140 mL. Hematology, CT surgery, critical care and cardiology on the board. As per Hematology recommendations, IV iron sucrose was ordered since iron panel showed low iron, and low percentage saturation. 11/19/2024: Patient was seen and evaluated at the bedside this morning. The patient is POD 12 s/p CABG. Impella support continues on P4 today and there is a plan to wean it off further, awaiting cardiothoracic surgery recommendations. Patient is currently maintained on epinephrine 0.03 mcg/kg per minute. His blood pressure is still running low, 92/44. He passed stool twice yesterday, after 7 days of constipation. Hematology, CT surgery, critical care and cardiology on the board. 11/20/2024: Patient was seen and evaluated at bedside this morning. He continues on P4 support. He is vitally stable with BP 101/56. WBCs are trending down from 12.4 K to 11.1 K. His TSH was elevated, 7.13. Free T3 test showed 1.64. We will continue to follow recommendations from Cardiothoracic surgery, Cardiology, and critical Care teams. 11/21/24: Patient was seen and evaluated at bedside this morning in room 218. The patient is POD 14 s/p CABG He continues on P4 support planning to be weaned off to lower settings if he continues to do better as per cardiothoracic surgery recommendations. Blood pressure on arterial line is 97/52 (67). WBCs are trending down from 11.1 to 10.0. His TSH was elevated, 7.13. Free T3 test showed 1.64. We will continue to follow recommendations from Cardiothoracic surgery, Cardiology, and critical Care teams. 11/22/24: Patient was seen and evaluated at bedside this morning in room 218. The patient is POD 15 s/p CABG. He continues on P4 support today as weaning off has been unsuccessful so far. He is currently on 0.08 epi support. He is undergoing diuresis as well. He reports no bowel movement for the past several days. We will continue to follow recommendations from Cardiothoracic surgery, Cardiology, and critical Care teams. 11/23/2024: Patient was seen and evaluated at the bedside this morning in room 218. This is postop day 16 status post CABG. He had no acute events overnight and was sitting comfortably in his chair during my visit. Patient continues on Impella P4 for support today. His vasopressor support is reducing today at 0.06 mcg. Patient denies chest pain, shortness of breath however has mild cough. Plan is to slowly taper off epinephrine and Impella. We will continue to follow recommendations from Cardiothoracic surgery, Cardiology and critical Care teams. 11/24/24: Patient was evaluated at the bedside in room 218. This is postop day 17 status post CABG. He had no acute events overnight and was sitting comfortably in his chair. Patient is weaned off epinephrine completely. Continues on Impella P3 support. Patient denies chest pain, shortness of breath, or anginal equivalents. All the chest tubes are out. We will continue to follow recommendations from Cardiothoracic surgery, Cardiology, critical Care team. 11/25/2024: Patient was evaluated at bedside in room 218. This is postop day 18 status post CABG. No acute events overnight and was sleeping comfortably in his chair and had good spirits. Patient has been off vasopressors for over 24 hours now and his blood pressures have been holding in 100s. He continues on Impella P3 support and the plan is for removal later today. Patient denied chest pain, shortness of breath or angina equivalents. We will continue to follow recommendations from Cardiothoracic surgery, Cardiology, and critical care team. REVIEW OF SYSTEMS CONSTITUTIONAL: Pain in his left shoulder, improved No fever, chills, or night sweats. NEUROLOGICAL: No headache no sensory and motor deficit. CARDIOVASCULAR: Dizziness, improved Denies any exertional angina, dyspnea on exertion, palpitations. PULMONARY: Denies any shortness of breath, cough, phlegm/sputum, hemoptysis, pleuritic chest pain. GASTROINTESTINAL: Constipation. Denies nausea, vomiting. Denies pain, tenderness around the abdomen. GENITOURINARY: Denies frequency, urgency, nocturia, hematuria or incontinence. PHYSICAL EXAM GENERAL APPEARANCE: The patient is alert, awake and oriented and bedbound. NEUROLOGICAL: No sensory and motor deficits. CHEST: left anterior chest , mediastinal mediastinal drains are removed. Dressing is clean Normal chest expansion. LUNGS: Normal vesicular breath sound. Absence of any rales, rhonchi or any wheezing. CARDIOVASCULAR: Systolic murmur heard over aortic area. Bilateral carotid bruits heard. No JVD. ABDOMEN: Soft nontender, and nondistended. There is no rebound, voluntary guarding, or rigidity. No abdominal bruit heard. GENITOURINARY: No suprapubic tenderness. No costovertebral angle tenderness. EXTREMITIES: Limbs are non-edematous. Vital Signs (last 8hr) Date Time Temp Pulse Resp B/P (MAP) Pulse Ox O2 Delivery O2 Flow Rate FiO2 11/25/24 13:00 75 35 92/37 93 Nasal Cannula 2.0 11/25/24 12:03 70 20 11/25/24 12:00 98.1 72 20 90/43 94 Nasal Cannula 2.0 11/25/24 11:00 67 20 93/50 95 Nasal Cannula 2.0 11/25/24 10:00 69 15 105/56 96 Nasal Cannula 2.0 11/25/24 09:00 69 14 103/41 95 Nasal Cannula 2.0 11/25/24 08:00 97.9 73 22 101/66 95 Nasal Cannula 2.0 11/25/24 08:00 95 Nasal Cannula* 2 28 11/25/24 07:45 76 20 11/25/24 07:43 76 20 N/Cannula Oximizer Hi LPM 2.0 28 11/25/24 07:00 69 19 85/50 95 Nasal Cannula 2.0 LABS: Laboratory: Test 11/25/24 04:34 11/24/24 16:42 11/24/24 12:05 Range/Units White Blood Count 6.6 4.8-10.8 K/uL Red Blood Count 3.07 L 4.50-6.20 MIL/uL Hemoglobin 9.6 L 14.0-18.0 g/dL Hematocrit 30.1 L 42-54 % Mean Corpuscular Volume 98.0 79-99 fL Mean Corpuscular Hemoglobin 31.3 27.0-33.0 pg Mean Corpuscular Hemoglobin Concent 31.9 L 32.0-36.0 g/dL Red Cell Distribution Width 14.1 11.0-15.5 % Platelet Count 433 H 130-400 K/uL Mean Platelet Volume 9.2 7.5-10.5 fL Nucleated Red Blood Cells 0.0 0.0-0.19 % Sodium Level 138 136-145 mmol/L Potassium Level 4.0 3.5-5.1 mmol/L Chloride Level 102 101-111 mmol/L Carbon Dioxide Level 25 21-32 mmol/L Blood Urea Nitrogen 12 7-18 mg/dL Creatinine 1.2 0.5-1.3 mg/dL Glomerular Filtration Rate Calc 66 >90 mL/min Random Glucose 99 70-105 mg/dL Total Calcium 8.6 8.5-10.1 mg/dL Magnesium Level 2.40 1.80-2.40 mg/dL Activated Partial Thromboplast Time 56.8 H 26.3-35.5 SEC Blood Gas Specimen Type Arterial Arterial Blood pH 7.446 7.350-7.450 Arterial Blood Partial Pressure CO2 33 L 35-48 mmHg Arterial Blood Partial Pressure O2 74.6 L 83.0-108.0 mmHg Arterial Blood HCO3 22.1 21.0-28.0 mmol/L Arterial Blood Oxygen Saturation 94.7 94.0-98.0 % Arterial Blood Base Excess -1.3 -2.0-3.0 mmol/L Hemoglobin (Blood Gas) 11.8 L 13.5-17.5 g/dL Sodium (Blood Gas) 134 L 136-145 MMOL/L Bedside Potassium (Blood Gas) 4.1 3.4-4.5 MMOL/L Bedside Chloride (Blood Gas) 101 98-107 MMOL/L Bedside Glucose (Blood Gas) 117 H 65-95 MG/DL Bedside Ionized Calcium (Blood Gas) 1.15 1.15-1.33 MMOL/L Bedside Lactic Acid (Blood Gas) 2.00 H 0.36-0.75 MMOL/L Blood Gas Temperature 37.0 35.5-37.0 CELSIUS Blood Gas Vent Mode RA ROOM AIR FiO2 21.0 % Blood Gas Specimen Comment RB Current Medications Medications (Trade) Dose Ordered Sig/Brittany Route PRN Reason Start Time Stop Time Status Last Admin Dose Admin Acetaminophen (TYLenol 325MG TAB) 650 mg Q4H PRN PO Temp >38.3C(AFTER EXTUBATION) 11/07/24 14:00 12/07/24 13:59 Acetaminophen (TYLenol 325MG TAB) 650 mg Q6H PRN PO TEMPERATURE GREATER THAN 101.5 11/03/24 21:00 11/07/24 14:00 DC 11/06/24 23:00 650 MG Acetaminophen (TYLenol 325MG TAB) 650 mg Q6H PRN PO MILD PAIN (1-3) 11/07/24 14:00 12/07/24 13:59 11/16/24 11:37 650 MG Acetaminophen (TYLenol 650MG SUPPOSITORY) 650 mg Q4H PRN RC Temp >38.3C WHILE INTUBATED 11/07/24 14:00 12/07/24 13:59 Acetaminophen (acetaMINOPHEN) 1,000 mg Q6H IVPB 11/09/24 09:00 11/12/24 08:59 DC 11/12/24 02:11 1,000 MG Acetaminophen (acetaMINOPHEN) 1,000 mg Q6H6 IV 11/07/24 18:00 11/08/24 17:59 DC 11/08/24 18:08 1,000 MG Albumin Human 250 ml @ 0 mls/hr AD IV 11/23/24 09:00 11/28/24 08:59 11/23/24 08:55 250 MLS/HR Albumin Human 250 ml @ 0 mls/hr AD PRN IV IF HEMODYNAMICALLY UNSTABLE 11/07/24 14:00 11/08/24 09:57 DC 11/08/24 09:57 125 MLS/HR Albumin Human 250 ml @ 0 mls/hr AD STAT IV 11/15/24 13:09 11/15/24 13:12 DC 11/15/24 13:28 250 MLS/HR Aminocaproic Acid 44230 mg/Sodium Chloride 310 ml @ 25 mls/hr AD IV 11/07/24 14:00 11/08/24 02:23 DC Aminocaproic Acid 13201 mg/Sodium Chloride 480 ml @ 0 mls/hr AD PRN IV BLEEDING CONTROL 11/07/24 11:00 11/07/24 14:03 DC Aspirin (Aspirin 81mg Ec Tab) 81 mg DAILY PO 11/04/24 09:00 12/04/24 08:59 11/25/24 07:55 81 MG Atorvastatin Calcium (LIPItor 40MG) 40 mg HS PO 11/03/24 21:00 11/03/24 20:40 DC Atorvastatin Calcium (LIPItor 40MG) 40 mg HS PO 11/03/24 21:00 11/09/24 07:45 DC 11/07/24 20:15 40 MG Atorvastatin Calcium (LIPItor 40MG) 40 mg HS PO 11/10/24 21:00 12/10/24 20:59 11/24/24 21:07 40 MG Calcium Gluconate (Calcium Gluc 1gm Vial) 1 gm AD PRN IV HYPOCALCEMIA 11/08/24 09:00 11/09/24 07:45 DC 11/08/24 16:36 1 GM Calcium Gluconate 1 gm/Sodium Chloride 60 ml @ 200 mls/hr AD PRN IV HYPOCALCEMIA 11/07/24 14:00 12/07/24 13:59 11/21/24 06:13 200 MLS/HR Cefazolin Sodium (Ancef) 2 gm ONCALL IVPB 11/06/24 22:00 11/07/24 14:00 DC Cefazolin Sodium (Ancef) 2 gm Q8H IVPB 11/07/24 19:00 11/08/24 11:01 DC 11/08/24 11:15 2 GM Clopidogrel Bisulfate (plaVIX 75MG) 75 mg DAILY PO 11/08/24 14:00 12/08/24 13:59 11/24/24 08:56 75 MG Dexmedetomidine/ Sodium Chloride (PRECEdex 400MCG/ 100ML-NS) 400 mcg PROTOCOL IV 11/07/24 14:00 12/07/24 13:59 Dextrose (D50w) 50 ml AD PRN IV HYPOGLYCEMIA PROTOCOL 11/07/24 14:00 12/07/24 13:59 Dextrose/Sodium Bicarbonate 1,025 ml @ 10 mls/hr Q24H IV 11/07/24 19:30 12/07/24 19:29 11/22/24 19:39 10 MLS/HR Docusate Sodium (COLace 100MG CAP) 100 mg BID PO 11/07/24 21:00 11/08/24 10:11 DC 11/07/24 20:15 100 MG Docusate Sodium (COLace 100MG CAP) 100 mg BID PO 11/10/24 09:00 12/10/24 08:59 11/24/24 21:07 100 MG Docusate Sodium (COLace LIQUID 100MG/10ML) 100 mg BID NG 11/08/24 10:30 11/09/24 21:53 DC 11/09/24 20:47 100 MG Enoxaparin Sodium (Lovenox) 30 mg DAILY SQ 11/10/24 09:00 11/13/24 08:38 DC 11/12/24 09:03 30 MG Enoxaparin Sodium (Lovenox) 40 mg DAILY SQ 11/04/24 09:00 11/07/24 13:38 DC 11/05/24 09:06 40 MG Epinephrine HCl 10 mg/Sodium Chloride 250 ml @ 13.948 mls/ hr AD PRN IV POST-OP CARDIOVASCULAR ORDERS 11/07/24 14:00 11/12/24 13:59 DC 11/09/24 19:48 7 MLS/HR Epinephrine HCl 10 mg/Sodium Chloride 250 ml @ 0 mls/hr AD PRN IV TITRATE 11/07/24 11:00 11/07/24 14:02 DC Epinephrine HCl 10 mg/Sodium Chloride 250 ml @ 0 mls/hr PROTOCOL IV 11/12/24 23:30 12/12/24 23:29 11/22/24 19:30 11.7 MLS/HR Famotidine (Pepcid 20mg Vial) 20 mg BID IV 11/07/24 21:00 11/08/24 08:59 DC 11/08/24 08:11 20 MG Famotidine (Pepcid 20mg Tab) 20 mg DAILY PO 11/04/24 09:00 11/07/24 13:38 DC 11/05/24 09:06 20 MG Fludrocortisone Acetate (Fludrocortisone Acetate) 0.1 mg BID PO 11/23/24 15:30 12/23/24 15:29 11/24/24 21:07 0.1 MG Folic Acid (FOLic ACID 1 MG TABLET) 1 mg DAILY PO 11/14/24 09:00 12/14/24 08:59 11/24/24 08:54 1 MG Furosemide (LASix 20MG TAB) 20 mg Q12H PO 11/09/24 09:00 11/24/24 15:51 DC 11/22/24 19:40 20 MG Furosemide (LASix 20MG TAB) 20 mg Q12H PO 11/25/24 09:00 12/11/24 23:00 Furosemide (LASix 20MG VIAL) 20 mg Q12H IV 11/08/24 09:00 11/09/24 08:59 DC 11/08/24 20:23 20 MG Glucagon (Glucagon 1mg Kit) 1 mg AD PRN IM HYPOGLYCEMIA PROTOCOL 11/07/24 14:00 12/07/24 13:59 Guaifenesin/ Dextromethorphan (RobiTUSSin DM 200/20MG 10ML) 15 ml Q6H PRN PO COUGH 11/19/24 15:00 12/19/24 14:59 11/24/24 15:30 15 ML Heparin Sodium (Porcine) (HEParin 5,000 UNIT VIAL) *calculation based on ACTUAL B... AD PRN IV HEPARIN PROTOCOL 11/13/24 09:30 12/13/24 09:29 Heparin Sodium/ Dextrose 250 ml @ 0 mls/hr Q6H IV 11/13/24 09:30 12/13/24 09:29 11/24/24 15:31 10.8 MLS/HR Hydralazine HCl (APRESOLine 20MG INJ) 10 mg Q6H PRN IV For:SBP above 160;DBP above 90 11/03/24 21:00 11/07/24 13:38 DC Insulin Human Regular 100 unit/ Sodium Chloride 100 ml @ 0 mls/hr AD IV 11/07/24 14:00 11/09/24 13:59 DC 11/08/24 12:30 4 MLS/HR Ipratropium Farrell (AtrovENT UD) 0.5 MG [id number] IH 11/08/24 12:00 12/08/24 11:59 11/25/24 12:03 0.5 MG Lactulose (Constulose 20gm/ 30ml Udcup) 20 gm BID PRN PO CONSTIPATION 11/03/24 21:00 11/07/24 14:00 DC Lactulose (Constulose 20gm/ 30ml Udcup) 20 gm BID PRN PO CONSTIPATION 11/07/24 14:00 12/07/24 13:59 11/18/24 06:21 20 GM Levothyroxine Sodium (SYNTHroid 125MCG TAB) 125 mcg SYN PO 11/09/24 06:30 12/09/24 06:29 11/25/24 06:13 125 MCG Lidocaine HCl/ Dextrose 250 ml @ 0 mls/hr PROTOCOL PRN IV OTHER [SEE ORDER COMMENTS] 11/08/24 21:00 11/09/24 08:37 DC 11/08/24 21:15 7.5 MLS/HR Magnesium Hydroxide (Milk Of Magnesium 30ml) 30 ml DAILY PRN PO CONSTIPATION 11/07/24 14:00 12/07/24 13:59 Magnesium Sulfate 50 ml @ 12.5 mls/hr AD PRN IV MAG LEVEL LESS THAN 2.0 11/07/24 14:00 12/07/24 13:59 11/09/24 05:59 12.5 MLS/HR Metoprolol Tartrate (loprESSOR) 12.5 mg BID PO 11/09/24 09:00 11/11/24 09:39 DC Metoprolol Tartrate (loprESSOR) 50 mg BID PO 11/04/24 21:00 11/07/24 13:38 DC 11/06/24 20:38 50 MG Midodrine (PROAMatine 5 MG TABLET) 10 mg TID PO 11/09/24 21:00 11/11/24 06:58 DC 11/10/24 20:07 10 MG Midodrine (PROAMatine 5 MG TABLET) 15 mg TID PO 11/11/24 09:00 12/11/24 08:59 11/25/24 07:55 15 MG Montelukast Sodium (SinguLAIR) 10 mg HS PO 11/08/24 21:00 12/08/24 20:59 11/24/24 21:07 10 MG Morphine Sulfate (morPHINE 2MG SYG) 0.5 mg Q2H PRN IV MODERATE PAIN (4-6) 11/07/24 14:00 11/08/24 13:59 DC Morphine Sulfate (morPHINE 2MG SYG) 1 mg Q2H PRN IV SEVERE PAIN (7-10) 11/07/24 14:00 11/08/24 13:59 DC Morphine Sulfate (morPHINE 4MG SYG) 2 mg Q4H PRN IVP SEVERE PAIN (7-10) 11/03/24 21:00 11/07/24 13:38 DC 11/04/24 15:49 2 MG Nitroglycerin (Nitroglycerin 1gm Oint) 0.5 inch Q8H TD 11/03/24 21:00 11/07/24 13:38 DC 11/07/24 05:46 0.5 INCH Nitroglycerin/ Dextrose 0 ml @ 0 mls/hr AD IV 11/07/24 14:00 11/10/24 13:59 DC Norepinephrine Bitartrate 250 ml @ 0 mls/hr AD PRN IV TITRATE 11/07/24 11:00 11/07/24 14:02 DC Norepinephrine Bitartrate 250 ml @ 0 mls/hr AD PRN IV POST-OP CARDIOVASCULAR ORDERS 11/07/24 14:00 11/12/24 13:59 DC 11/09/24 17:09 5.6 MLS/HR Norepinephrine Bitartrate 250 ml @ 0 mls/hr PROTOCOL IV 11/12/24 18:30 12/12/24 18:29 11/13/24 08:42 2 MLS/HR Ondansetron HCl (zoFRAN 4MG INJ) 4 mg Q6H PRN IV NAUSEA/VOMITING 11/03/24 21:00 11/07/24 14:00 DC Ondansetron HCl (zoFRAN 4MG INJ) 4 mg Q6H PRN IV NAUSEA/VOMITING 11/07/24 14:00 12/07/24 13:59 11/09/24 21:50 4 MG Pantoprazole Sodium (PROTonix 40MG INJ) 40 mg BID IVP 11/08/24 09:00 12/08/24 08:59 11/25/24 07:55 40 MG Pharmacy Profile Note (Pharmacy Communication) 1 each ONCE MISC 11/13/24 09:00 11/13/24 08:57 DC Piperacillin Sod/ Tazobactam Sod (Zosyn 3.375gm+NS 50ml) 3.375 gm Q8H IV 11/09/24 10:00 11/09/24 09:38 DC Piperacillin Sod/ Tazobactam Sod (Zosyn 3.375gm+NS 50ml) 3.375 gm Q8H IV 11/09/24 10:00 11/19/24 09:59 DC 11/19/24 02:20 3.375 GM Polyethylene Glycol (MIRalax 3350 17 GM POWD.PACK) 17 gm DAILY PO 11/09/24 09:00 12/09/24 08:59 11/23/24 08:48 17 GM Potassium Phosphate 250 ml @ 42 mls/hr AD PRN IV LOW PHOS LEVEL 11/07/24 14:00 12/07/24 13:59 11/08/24 07:22 42 MLS/HR Potassium Chloride 100 ml @ 100 mls/hr AD PRN IV HYPOKALEMIA 11/07/24 14:00 12/07/24 13:59 11/24/24 05:53 100 MLS/HR Potassium Chloride (K-Dur/Klor-Con 20meq) 20 meq AD PRN PO POTASSIUM PROTOCOL 11/14/24 00:30 12/14/24 00:29 11/24/24 09:29 20 MEQ Potassium Chloride (KCl 10% Elixir 20meq/15ml) 20 meq AD PRN PO POTASSIUM PROTOCOL 11/14/24 00:30 12/14/24 00:29 11/21/24 08:34 20 MEQ Propofol 100 ml @ 0 mls/hr AD PRN IV SEDATION 11/07/24 14:00 11/11/24 13:59 DC Sodium Bicarbonate (Sodium Bicarb 50meq 50ml Vial) 50 meq AD PRN IV OTHER[SEE DOSING INSTRUCTIONS] 11/07/24 14:00 11/10/24 13:59 DC 11/08/24 00:54 50 MEQ Sodium Chloride 250 ml @ 0 mls/hr Q0M IV 11/18/24 10:00 12/18/24 09:59 11/18/24 10:13 250 MLS/HR Sodium Chloride 500 ml @ 0 mls/hr AD IV 11/07/24 14:00 12/07/24 13:59 11/10/24 00:41 3 MLS/HR Sodium Chloride 1,000 ml @ 10 mls/hr ONCE IV 11/07/24 14:00 11/08/24 13:59 DC 11/07/24 20:11 10 MLS/HR Sodium Chloride 1,000 ml @ 100 mls/hr Q10H IV 11/06/24 12:30 11/06/24 15:29 DC Sodium Chloride (NS Flush 10ml) 10 ml Q8H PRN IVP IV LINE FLUSH 11/07/24 14:00 12/07/24 13:59 Sucralfate (Carafate) 1 gm TID PO 11/08/24 21:00 12/08/24 20:59 11/24/24 21:07 1 GM Tramadol HCl (UltRAM) 25 mg Q6H PRN PO MODERATE PAIN (4-6) 11/07/24 14:00 11/09/24 08:37 DC Tramadol HCl (UltRAM) 50 mg Q6H PRN PO SEVERE PAIN (7-10) 11/07/24 14:00 11/09/24 08:37 DC 11/08/24 23:30 50 MG Vitamin B Complex (Vitamin B-12) 1,000 mcg DAILY IM 11/07/24 09:00 11/13/24 08:59 DC 11/12/24 09:03 1,000 MCG Vitamin B Complex (Vitamin B-12) 1,000 mcg DAILY PO 11/14/24 09:00 12/14/24 08:59 11/24/24 08:54 1,000 MCG DIAGNOSTICS / RADIOLOGY: [ ] PATIENT: CLARE VALADEZ MR#: [id number] : 1955 SEX: M AGE: 69 LOCATION: [facility] ORDER 230 STATUS: ADM IN REPORT#: [id number] SERVICE 0700 REASON: impella P2 ORDERING PHYSICIAN: BRYON THOMPSON MD PROCEDURE: ECHO CMP - ECHO 2-D COMPLETE APPROVED REPORT EXAM: Two-dimensional and M-mode echocardiogram with Doppler and color Doppler. INDICATION ICD: Impella P2 2D Dimensions RVDd 3.8 cm LVEF(%) 7.2 (>50%) LVED Vol(simp.) 84.0 mL IVSd 0.7 (0.7-1.1cm) FS(%) 3 % LVES Vol(simp.) 46.0 mL LVDd 5.2 (3.8-5.6cm) LA (2D) 3.6 (1.6-4.0cm) LVEF(%, simp.) 46 % PWd 0.8 (0.7-1.1cm) Ao Root(2D) 3.3 (2.0-3.7cm) LA ESV INDEX (BP) 31.89 mL/m2 IVSs 1.0 cm LVOT diam 2.1 (1.8-2.4cm) LVDs 5.1 (2.5-4.0cm) PWs 1.0 cm Deformation Strain Apical 4 -8.4 % Apical 2 -11.5 % Apical 3 -10.0 % Global Strain -10.0 % M-Mode Dimensions LA (MM) 3.9 (1.6-4.0cm) Ao Root(MM) 3.5 (2.0-3.7cm) Aortic Valve AoV Vmax 1.0 m/s Ao Peak GR 3.8 mmHg LVOT Vmax 1.1 m/s AoV VTI 0.1 m Ao Mean GR 1.8 mmHg LVOT VTI 0.16 m ASTRID (VMAX) 3.81 cm2 ASTRID (VTI) 3.8 cm2 Mitral Valve MV E Vmax 60.5 cm/s DECEL Time 202 ms MV A Vmax 78.2 cm/s P 1/2 T 37 ms E/A ratio 0.8 MVA (PHT) 6.0 cm2 TDI E/E' Medial 11.6 E/E' Lateral 6.9 Medial E' Peak V 5.21 cm/s Lateral E' Peak V 8.81 cm/s Pulmonary Valve PV Vmax 1.1 m/s PV VTI 0.20 m PV Mean GR 2.9 mmHg PV Peak GR 4.6 mmHg Left Ventricle The left ventricle is normal size. Impella device 6.5 cm into LV. Reduced GLS - 10.0% [place] is akinetic. There is normal left ventricular wall thickness. LVEF is difficult to assess due to arrhythmia but is estimated at 40-45%. The left ventricular diastolic function is normal. Right Ventricle The right ventricle is normal size. Right ventricular systolic function is moderately reduced. Atria The left atrium size is normal. The right atrium size is normal. Aortic Valve Aortic valve is trileaflet and mildly thickened. No aortic regurgitation is present. There is no aortic valvular stenosis. Mitral Valve The mitral valve is normal in structure. There is trace of mitral valve regurgitation noted. There is no mitral valve stenosis. Tricuspid Valve The tricuspid valve is normal in structure. There is no tricuspid valve regurgitation noted. Pulmonic Valve The pulmonary valve is normal in structure. There is no pulmonic valvular regurgitation. Great Vessels The aortic root is normal in size. The IVC is normal in size and collapses >50% with inspiration. Pericardium There is no pericardial effusion. Other Information Quality : Adequate Rhythm : NSR Conclusion LVEF is difficult to assess due to arrhythmia but is estimated at 40-45%. Impella device 6.5 cm into LV. [place] is akinetic. DICTATED BY: BORIS HINES DO DATE: 11/25/24 0659 ELECTRONICALLY SIGNED BY: BORIS HINES DO DATE: 11/25/24 1041 PATIENT: CLARE VALADEZ MR#: [id number] : 1955 SEX: M AGE: 69 LOCATION: [facility] ORDER 1005 STATUS: ADM IN REPORT#: [id number] SERVICE 1004 REASON: pp ORDERING PHYSICIAN: NSOW MATAMOROS PAC PROCEDURE: CXR1VW - CHEST 1VW EXAM: X-RAY CHEST, ONE VIEW (FRONTAL PROJECTION) Technique: A portable frontal projection of the chest was obtained and submitted for interpretation. Clinical Information: Post-procedure evaluation. Comparison: Chest radiograph dated November 23, 18:19 EDT. Findings: The pulmonary gil demonstrate clear lungs without infiltrates, consolidation, or effusion. No pneumothorax is identified. The cardiac silhouette is within normal limits in size and contour. The mediastinum and haile are unremarkable with no widening or mass. Right-sided peripherally inserted central catheter (PICC) line is seen with the tip at the cavoatrial junction, in satisfactory position. Post-sternotomy changes are noted. The visualized bony thorax and soft tissues show no acute abnormality. IMPRESSION: 1. Right-sided PICC line with tip at cavoatrial junction, in satisfactory position. 2. Post-sternotomy changes. 3. Clear lungs without infiltrates, consolidation, or effusion. 4. No pneumothorax. 5. Normal cardiac silhouette size and contour. 6. Unremarkable mediastinum and haile. 7. No acute osseous abnormalities of the visualized bony thorax. /[place] ASSESSMENT: Coronary artery disease, POA, s/p CABG 3v and redo sternotomy with redo of graft failure now s/p CABG with 4v Postop acute anemia requiring transfusion Acute kidney injury Hyperlipidemia, POA Hypothyroidism, POA Peripheral artery disease, suspected Carotid artery stenosis PLAN: Coronary artery disease, POA s/p CABG 3v and redo sternotomy with redo of graft failure now s/p CABG with 4v * Administer aspirin 325 mg p.o. now and then continue aspirin 81 mg p.o. daily * Troponin every 6 hours, serial troponin levels are 12-11. * Supplemental oxygen as needed to maintain SpO2 greater than 94% * A cardiology consult has been placed for evaluation of CAD in patient with exertional chest pain and vascular disease. 11/04/24 * Echocardiogram was done which revealed aortic valve: trileaflet, mildly s clerotic, and opens well. * In coronary CT angiography there is mixed calcified and noncalcified plaque in the proximal LAD with 80-90% stenosis. Left circumflex coronary artery: Normal caliber, nondominant and gives rise to a large OM branch. There is mixed calcified and noncalcified plaque in the mid LCx with 80-90% stenosis. * Left heart catheterization with selective right and left coronary angiography was performed which showed critical left main disease. Severe ostial RCA stenosis. 11/06/24 * Cardiac catheterization demonstrated a very tight left main lesion and the patient is referred for surgical revascularization. * Patient is POD 18 S/P CABG, patient is being managed in the ICU per protocol. * His impella setting is decreased to P3. planning for impella removal today * We will continue to follow Cardiology and critical care recommendations. * He is on heparin drip and off lovenox. * Hematology saw the patient and they recommended to start folic acid, vitamin B12, ordered SPEP, UPEP, free light chains. kappa light chain - 203, Lambda light chain -29.5. They think that the patient might be having hemolytic anemia which could be the reason for his graft clotting after surgery. Peripheral vascular disease, Suspected * Patient has history of exertional bilateral leg pain * Diminished peripheral pulses * A SERA has been ordered due to the patients complaint of bilateral lower extremity claudication, and numbness/tingling in bilateral lower extremities. * Clear aspirin 81 mg daily and statin 40mg * Encouraged supervised exercise therapy for claudication * Counseled on continued smoking cessation 11/04/24 Peripheral Neuropathy * Vitamin B12 has been ordered to rule out peripheral neuropathy.on 11/06/24, 11/17/24 * Complained of numbness and tingling in his limbs. * Vitamin B12 level was measured which showed [id number]. * Patient has been started on vitamin B12 supplement 1000 mcg for 6 days. Carotid artery stenosis * Presence of bilateral carotid bruit on exam, suspicion for significant stenosis * Risk factor modification: Smoking cessation, BP control, glycemic control. 11/04/24 * Carotid artery ultrasound showed Bilateral ICA/CCA ratio more than 4.0 suggesting more than 70% stenosis. 11/05/24 * Cardiology recommended CT/MR angiogram when stable from surgical standpoint Hyperlipidemia * Continue home statin therapy atorvastatin 40 mg * Reinforce low-cholesterol, heart healthy diet (limit saturated fats, increase fiber, fruits and vegetables) * Encouraged regular physical activity as tolerated * Monitor lipid panel * Outpatient follow up with PCP/Cardiology for long-term lipid management and cardiovascular risks reduction Supportive measures * Start patient on GI prophylaxis * DVT prophylaxis * Monitor morning labs CBC and BMP daily * He is on heart healthy diet Hypothyroidism * Continue home dose of levothyroxine at 125 mcg daily * TSH 7.13 and Free T3 1.64. Postop acute anemia requiring transfusion - Patient's hemoglobin on 11/18 is 9. Patient has normocytic anemia - His iron panel from 11/17 showed low iron and low percentage saturation. - As per Hematology recommendations, patient was given IV iron sucrose 11/18 - Follow up with morning CBC. ATTESTATION BY PHYSICIAN I have seen and examined the patient. I reviewed the documentation, medical decision making, and treatment plan as noted by the resident physician above. I agree with the findings and plan of care. ALISA POLLARD MD, HARSHAVARDHA MD Nov 25, 2024 14:06
--- NOTE | 2024-11-25 14:45 | HMCIMG ---
EXAM: X-RAY CHEST, ONE VIEW (FRONTAL PROJECTION) Technique: A portable frontal projection of the chest was obtained and submitted for interpretation. Clinical Information: Post-procedure evaluation. Comparison: Chest radiograph dated November 23 18:19 EDT. Findings: The pulmonary gil demonstrate clear lungs without infiltrates, consolidation, or effusion. No pneumothorax is identified. The cardiac silhouette is within normal limits in size and contour. The mediastinum and haile are unremarkable with no widening or mass. Right-sided peripherally inserted central catheter (PICC) line is seen with the tip at the cavoatrial junction, in satisfactory position. Post-sternotomy changes are noted. The visualized bony thorax and soft tissues show no acute abnormality. IMPRESSION: 1. Right-sided PICC line with tip at cavoatrial junction, in satisfactory position. 2. Post-sternotomy changes. 3. Clear lungs without infiltrates, consolidation, or effusion. 4. No pneumothorax. 5. Normal cardiac silhouette size and contour. 6. Unremarkable mediastinum and haile. 7. No acute osseous abnormalities of the visualized bony thorax. /[place]
--- NOTE | 2024-11-25 15:23 | PN ---
PROGRESS NOTE Date of Service: Nov 25, 2024 Time of Service: 15:14 SUBJECTIVE: 69-year old male with past medical history of Graves disease, hyperlipidemia, CAD(status post PTCA 30 years ago) presented to ED with chief complaints of on and off chest pain. He was found to have severe left main disease and underwent CABG on 11/07. Patient had to undergo a redo due to graft thrombosis on table. Subsequently he was placed on Impella initially on P4---->P8---->P5--->P4(current). He was treated with multiple pressors. On 11/09 patient underwent right radial artery arterial line placement which clotted. And 2nd anterior line was placed on right axillary artery on 11/12/2024 which was also clotted. Another arterial line was placed on left brachial artery on 11/14/2024 . Patient was also noted to have transient thrombocytopenia between 11/09/2024 to 11/12/2024. 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 However direct Juan test and cold agglutinin was negative. Patient is seen and evaluated at the bedside today. Patient is alert oriented. There is a plan to remove Impella today . His platelet count is 700338, hemoglobin 9.6, WBC 6.6. Free [place] lambda light chain ratio 0.69 suggestive of polyclonal elevations. We will wait for SPEP-if monoclonal we will proceed with bone marrow biopsy. He is in NAD. REVIEW OF SYSTEMS CONSTITUTIONAL: Denies fever, chills, or fatigue. HEAD/FACE: No signs of trauma. EENT: Denies eye pain, blurred vision, double vision, or light sensitivity. RESPIRATORY: Denies shortness of breath, cough, wheezing CARDIOVASCULAR: Denies chest pain, palpitation, syncope GASTROINTESTINAL/ABDOMINAL: Denies abdominal pain, constipation, diarrhea, nausea or vomiting GENITOURINARY: Denies dysuria or hematuria. MUSCULOSKELETAL: Denies joint pain, tenderness, or trauma. INTEGUMENTARY: Denies rash or itchiness NEUROLOGICAL/PSYCH: Denies anxiety, depression, heat or cold intolerance. PHYSICAL EXAM EYES: Anicteric. Pupils equal and reactive. HENT: No oral thrush seen, moist Oral mucosa NECK: Supple, no JVD or thyromegaly. LUNGS: Good air entry. No rales, no rhonchi. CARDIOVASCULAR: S1, S2 regular. No murmur heard. ABDOMEN: Soft, non tender, bowel sounds present, no organomegaly CENTRAL NERVOUS SYSTEM: Awake, alert, oriented x 3. No focal deficits. SKIN: No rashes, no swelling. LYMPHATICS: No peripheral lymphadenopathy MUSCULOSKELETAL: No joint swelling, erythema or tenderness. EXTREMITIES: No cyanosis or clubbing BACK: No deformity, no pressure ulcer. GENITOURINARY: No dysuria or hematuria Vital Signs (last 8hr) Date Time Temp Pulse Resp B/P (MAP) Pulse Ox O2 Delivery O2 Flow Rate FiO2 11/25/24 14:00 70 15 85/50 94 Nasal Cannula 2.0 11/25/24 13:00 75 20 92/37 93 Nasal Cannula 2.0 11/25/24 12:03 70 20 11/25/24 12:00 98.1 72 20 90/43 94 Nasal Cannula 2.0 11/25/24 12:00 94 Nasal Cannula* 2 28 11/25/24 11:00 67 20 93/50 95 Nasal Cannula 2.0 11/25/24 10:00 69 15 105/56 96 Nasal Cannula 2.0 11/25/24 09:00 69 14 103/41 95 Nasal Cannula 2.0 11/25/24 08:00 97.9 73 22 101/66 95 Nasal Cannula 2.0 11/25/24 08:00 95 Nasal Cannula* 2 28 11/25/24 07:45 76 20 11/25/24 07:43 76 20 N/Cannula Oximizer Hi LPM 2.0 28 LABS: Laboratory: Test 11/25/24 04:34 11/24/24 16:42 11/24/24 12:05 Range/Units White Blood Count 6.6 4.8-10.8 K/uL Red Blood Count 3.07 L 4.50-6.20 MIL/uL Hemoglobin 9.6 L 14.0-18.0 g/dL Hematocrit 30.1 L 42-54 % Mean Corpuscular Volume 98.0 79-99 fL Mean Corpuscular Hemoglobin 31.3 27.0-33.0 pg Mean Corpuscular Hemoglobin Concent 31.9 L 32.0-36.0 g/dL Red Cell Distribution Width 14.1 11.0-15.5 % Platelet Count 433 H 130-400 K/uL Mean Platelet Volume 9.2 7.5-10.5 fL Nucleated Red Blood Cells 0.0 0.0-0.19 % Sodium Level 138 136-145 mmol/L Potassium Level 4.0 3.5-5.1 mmol/L Chloride Level 102 101-111 mmol/L Carbon Dioxide Level 25 21-32 mmol/L Blood Urea Nitrogen 12 7-18 mg/dL Creatinine 1.2 0.5-1.3 mg/dL Glomerular Filtration Rate Calc 66 >90 mL/min Random Glucose 99 70-105 mg/dL Total Calcium 8.6 8.5-10.1 mg/dL Magnesium Level 2.40 1.80-2.40 mg/dL Activated Partial Thromboplast Time 56.8 H 26.3-35.5 SEC Blood Gas Specimen Type Arterial Arterial Blood pH 7.446 7.350-7.450 Arterial Blood Partial Pressure CO2 33 L 35-48 mmHg Arterial Blood Partial Pressure O2 74.6 L 83.0-108.0 mmHg Arterial Blood HCO3 22.1 21.0-28.0 mmol/L Arterial Blood Oxygen Saturation 94.7 94.0-98.0 % Arterial Blood Base Excess -1.3 -2.0-3.0 mmol/L Hemoglobin (Blood Gas) 11.8 L 13.5-17.5 g/dL Sodium (Blood Gas) 134 L 136-145 MMOL/L Bedside Potassium (Blood Gas) 4.1 3.4-4.5 MMOL/L Bedside Chloride (Blood Gas) 101 98-107 MMOL/L Bedside Glucose (Blood Gas) 117 H 65-95 MG/DL Bedside Ionized Calcium (Blood Gas) 1.15 1.15-1.33 MMOL/L Bedside Lactic Acid (Blood Gas) 2.00 H 0.36-0.75 MMOL/L Blood Gas Temperature 37.0 35.5-37.0 CELSIUS Blood Gas Vent Mode RA ROOM AIR FiO2 21.0 % Blood Gas Specimen Comment RB DIAGNOSTICS / RADIOLOGY: [ ] Assessment 1. Anemia. Is multifactorial. Including iron deficiency anemia 2. 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 ELSA 5. Hyperlipidemia 6. Sclerotic nodule on the non coronary cusp on 2D echo Normal ventricular diastolic function with LVEF of 60-65% on 2D echo 11/05/24 7. Former smoker Plan: 1.Platelet count is corrected at this time. 2. There was hypersegmented neutrophils. This patient to Continue on folic acid 1 mg p.o. daily and vitamin B12 1000 mcg p.o. daily. 3. 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 Direct Juan was done which was negative. 4. 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 Free light chain was done which was within normal. We are waiting for the final report of SPEP. 5. Continue care as per cardiothoracic surgery with the planning to remove the Impella . 6. Patient will need physical therapy. We will sign off for time being . Patient can follow us in clinic after 4 weeks for SPEP results . ATTESTATION BY PHYSICIAN I have seen and examined the patient. I reviewed the documentation, medical decision making, and treatment plan as noted by the resident physician above. I agree with the findings and plan of care. JAYLENE DO MD, MD Nov 25, 2024 15:23
--- NOTE | 2024-11-25 15:50 | PN ---
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 No acute events overnight. He is off any pressors He is currently at Impella P3, they put him at P2 during an echocardiogram and he tolerated well. Plan is possible removal today in the OR. Patient with urine output of 800 out overnight He is tolerating his diet No complaints, no syncope when transferred to the chair Plan: Follow CT surgeon recs Off pressors Impella per surgeon Cardiac diet Telemetry PT/OT when able Daily labs and chest x-ray in a.m. INOs Critical care time 41 minutes, patient remains on Impella for cardiac support. Time excludes any education or procedural time REVIEW OF SYSTEMS: 12 point ROS reviewed with patient. Pertinent positives mentioned above. Otherwise negative. PHYSICAL EXAM: GENERAL: alert, weak, awake oriented x 3 HEENT: EOMI, Sclera non icteric, moist mucosa NECK: Supple, no JVD, trachea midline right IJ. Subclavian Impella 5.5 LUNGS: Rhonchi to right lower lobes. No wheezes HEART: Regular rate and rhythm. Normal S1 and S2, without murmurs mid incision line tenderness. Dressing clean dry and intact. ABD: Abdomen soft, nontender. Bowel sounds present EXT: No clubbing cyanosis or edema. Left femoral sheath. NEURO: Alert and oriented to person, follows commands Vital Signs (last 8hr) Date Time Temp Pulse Resp B/P (MAP) Pulse Ox O2 Delivery O2 Flow Rate FiO2 11/25/24 14:00 70 15 85/50 94 Nasal Cannula 2.0 11/25/24 13:00 75 20 92/37 93 Nasal Cannula 2.0 11/25/24 12:03 70 20 11/25/24 12:00 98.1 72 20 90/43 94 Nasal Cannula 2.0 11/25/24 12:00 94 Nasal Cannula* 2 28 11/25/24 11:00 67 20 93/50 95 Nasal Cannula 2.0 11/25/24 10:00 69 15 105/56 96 Nasal Cannula 2.0 11/25/24 09:00 69 14 103/41 95 Nasal Cannula 2.0 11/25/24 08:00 97.9 73 22 101/66 95 Nasal Cannula 2.0 11/25/24 08:00 95 Nasal Cannula* 2 28 LABS: Hematology Labs: Test 11/25/24 04:34 Range/Units White Blood Count 6.6 4.8-10.8 K/uL Red Blood Count 3.07 L 4.50-6.20 MIL/uL Hemoglobin 9.6 L 14.0-18.0 g/dL Hematocrit 30.1 L 42-54 % Mean Corpuscular Volume 98.0 79-99 fL Mean Corpuscular Hemoglobin 31.3 27.0-33.0 pg Mean Corpuscular Hemoglobin Concent 31.9 L 32.0-36.0 g/dL Red Cell Distribution Width 14.1 11.0-15.5 % Platelet Count 433 H 130-400 K/uL Mean Platelet Volume 9.2 7.5-10.5 fL Nucleated Red Blood Cells 0.0 0.0-0.19 % Chemistry Labs: Test 11/25/24 04:34 Range/Units Sodium Level 138 136-145 mmol/L Potassium Level 4.0 3.5-5.1 mmol/L Chloride Level 102 101-111 mmol/L Carbon Dioxide Level 25 21-32 mmol/L Blood Urea Nitrogen 12 7-18 mg/dL Creatinine 1.2 0.5-1.3 mg/dL Glomerular Filtration Rate Calc 66 >90 mL/min Random Glucose 99 70-105 mg/dL Total Calcium 8.6 8.5-10.1 mg/dL Magnesium Level 2.40 1.80-2.40 mg/dL Coagulation Labs: Test 11/24/24 16:42 Range/Units Activated Partial Thromboplast Time 56.8 H 26.3-35.5 SEC DI[facility]NOSTICS / RADIOLOGY RESULTS: [place] [id number] [address] IMAGING REPORT Signed PATIENT: CLARE KERR MR#: [id number] : 1955 SEX: M AGE: 69 LOCATION: 2CH ORDER 2300 STATUS: ADM IN REPORT#: [id number] SERVICE 0700 REASON: impella P2 ORDERING PHYSICIAN: BRYON THOMPSON MD PROCEDURE: ECHO CMP - ECHO 2-D COMPLETE APPROVED REPORT EXAM: Two-dimensional and M-mode echocardiogram with Doppler and color Doppler. INDICATION ICD: Impella P2 2D Dimensions RVDd 3.8 cm LVEF(%) 7.2 (>50%) LVED Vol(simp.) 84.0 mL IVSd 0.7 (0.7-1.1cm) FS(%) 3 % LVES Vol(simp.) 46.0 mL LVDd 5.2 (3.8-5.6cm) LA (2D) 3.6 (1.6-4.0cm) LVEF(%, simp.) 46 % PWd 0.8 (0.7-1.1cm) Ao Root(2D) 3.3 (2.0-3.7cm) LA ESV INDEX (BP) 31.89 mL/m2 IVSs 1.0 cm LVOT diam 2.1 (1.8-2.4cm) LVDs 5.1 (2.5-4.0cm) PWs 1.0 cm Deformation Strain Apical 4 -8.4 % Apical 2 -11.5 % Apical 3 -10.0 % Global Strain -10.0 % M-Mode Dimensions LA (MM) 3.9 (1.6-4.0cm) Ao Root(MM) 3.5 (2.0-3.7cm) Aortic Valve AoV Vmax 1.0 m/s Ao Peak GR 3.8 mmHg LVOT Vmax 1.1 m/s AoV VTI 0.1 m Ao Mean GR 1.8 mmHg LVOT VTI 0.16 m ASTRID (VMAX) 3.81 cm2 ASTRID (VTI) 3.8 cm2 Mitral Valve MV E Vmax 60.5 cm/s DECEL Time 202 ms MV A Vmax 78.2 cm/s P 1/2 T 37 ms E/A ratio 0.8 MVA (PHT) 6.0 cm2 TDI E/E' Medial 11.6 E/E' Lateral 6.9 Medial E' Peak V 5.21 cm/s Lateral E' Peak V 8.81 cm/s Pulmonary Valve PV Vmax 1.1 m/s PV VTI 0.20 m PV Mean GR 2.9 mmHg PV Peak GR 4.6 mmHg Left Ventricle The left ventricle is normal size. Impella device 6.5 cm into LV. Reduced GLS - 10.0% [place] is akinetic. There is normal left ventricular wall thickness. LVEF is difficult to assess due to arrhythmia but is estimated at 40-45%. The left ventricular diastolic function is normal. Right Ventricle The right ventricle is normal size. Right ventricular systolic function is moderately reduced. Atria The left atrium size is normal. The right atrium size is normal. Aortic Valve Aortic valve is trileaflet and mildly thickened. No aortic regurgitation is present. There is no aortic valvular stenosis. Mitral Valve The mitral valve is normal in structure. There is trace of mitral valve regurgitation noted. There is no mitral valve stenosis. Tricuspid Valve The tricuspid valve is normal in structure. There is no tricuspid valve regurgitation noted. Pulmonic Valve The pulmonary valve is normal in structure. There is no pulmonic valvular regurgitation. Great Vessels The aortic root is normal in size. The IVC is normal in size and collapses >50% with inspiration. Pericardium There is no pericardial effusion. Other Information Quality : Adequate Rhythm : NSR Conclusion LVEF is difficult to assess due to arrhythmia but is estimated at 40-45%. Impella device 6.5 cm into LV. [place] is akinetic. DICTATED BY: BORIS HINES DO DATE: 11/25/24 0659 ELECTRONICALLY SIGNED BY: BORIS HINES DO DATE: 11/25/24 1047 [place] [id number] [address] IMAGING REPORT Signed PATIENT: CLARE KERR MR#: [id number] : 1955 SEX: M AGE: 69 LOCATION: [facility] ORDER 1005 STATUS: ADM IN REPORT#: [id number] SERVICE 03 REASON: pp ORDERING PHYSICIAN: SNOW MATAMOROS PAC PROCEDURE: CXR1VW - CHEST 1VW EXAM: X-RAY CHEST, ONE VIEW (FRONTAL PROJECTION) Technique: A portable frontal projection of the chest was obtained and submitted for interpretation. Clinical Information: Post-procedure evaluation. Comparison: Chest radiograph dated November 23, 18:19 EDT. Findings: The pulmonary gil demonstrate clear lungs without infiltrates, consolidation, or effusion. No pneumothorax is identified. The cardiac silhouette is within normal limits in size and contour. The mediastinum and haile are unremarkable with no widening or mass. Right-sided peripherally inserted central catheter (PICC) line is seen with the tip at the cavoatrial junction, in satisfactory position. Post-sternotomy changes are noted. The visualized bony thorax and soft tissues show no acute abnormality. IMPRESSION: 1. Right-sided PICC line with tip at cavoatrial junction, in satisfactory position. 2. Post-sternotomy changes. 3. Clear lungs without infiltrates, consolidation, or effusion. 4. No pneumothorax. 5. Normal cardiac silhouette size and contour. 6. Unremarkable mediastinum and haile. 7. No acute osseous abnormalities of the visualized bony thorax. /[place] DICTATED BY: JOSSY BIGGS MD DATE: 11/25/241543 ELECTRONICALLY SIGNED BY: JOSSY BIGGS MD DATE: 11/25/241543 PLAN NEURO: Minimize central acting medications as possible. Fall Precautions. Well lighted room through the day and minimize interruptions through the night to prevent acute delirium. PULMONARY: Supplemental 02 as needed Titrate Fio2 to keep Spo2 > or = 90% DuoNebs and CPT as needed IS hourly while awake for pulmonary hygiene Out of bed to chair as tolerated VAP Bundle Bipap 12/6 fio2 50% RT to titrate FiO2 as needed to maintain O2 above 92% CARDIOVASCULAR: Follow hemodynamics. Titrate vasopressor to keep MAP >65 or systolic blood pressure >95mmHg DIPS: None LINES: Impella 5.5 A line GI & NUTRITION: NPO for now Aspirations precautions Prokinetic agents and laxatives as needed KIDNEYS & ELECTROLYTES: Strict monitoring of intake and output Daily weights Avoid nephrotoxic agents Monitor electrolytes and replace as needed Goal urine output of 30mL/hr or 0.5mL/kg/hr ENDOCRINE: Maintain blood glucose between 100-180 at all times. Insulin sliding scale for blood glucose management INFECTIOUS DISEASE: Trend temperature. Nichols-culture if febrile. Micro: [ ] MRSA negative Antibiotics: [ ] HEMATOLOGY & COAGULATION: Monitor H&H. Keep Hgb > 7 Transfuse 1 unit of PRBC for Hgb < 7 Transfuse 1 pack of platelets of platelets < 20, 000 Watch for any signs and symptoms of bleeding SKIN: Pressure ulcer prevention per facility protocol Code Status: Full Resuscitation Disposition: [ TBD ATTESTATION BY PHYSICIAN I have seen and examined the patient. I reviewed the documentation, medical decision making, and treatment plan as noted by the resident provider above. I agree with the findings and plan of care. Dimitrios Paris MD, LAKSHMI MD Nov 25, 2024 15:50
[2024-11-25] MEDS ORDERED: HEParin-NS 1,000 UNIT/500 ML 500 ML IV ONE (16:01)
[2024-11-25] MEDS ORDERED: LIDOCAINE 1%-EPI 1:100,000 20 ML VIAL ONE (16:16)
--- NOTE | 2024-11-25 17:00 | NUR ---
Patient taken to OR at this time for impella removal.
[2024-11-25] MEDS ORDERED: LIDOCAINE PF 100MG/5ML (2%) SYRINGE 5ML ONE (17:11)
[2024-11-25] MEDS ORDERED: GLYCOPYRROLATE 0.2 MG/ML 5 ML VIAL ONE (17:11)
[2024-11-25] MEDS ORDERED: SUCCINYLCHOLINE CHLORIDE 20 MG/ML 10 ML VIAL ONE (17:11)
[2024-11-25] MEDS ORDERED: NEOSTIGMINE METHYLSULFATE 1MG/ML IV ONE (17:12)
[2024-11-25] MEDS: LIDOCAINE 1%-EPI 1:100,000 20 ML VIAL IJ ONE (17:45)
--- NOTE | 2024-11-25 18:20 | NUR ---
Patient returned back from OR. No distress noted.
[2024-11-26] VITALS (105 sets, daily range): BP systolic 60–284; BP diastolic 33–247; PULSE 66–91; RESP 10–89; TEMP 97.4–98.3; O2SAT 95–99
--- NOTE | 2024-11-26 03:52 | OP ---
DATE OF PROCEDURE: 11/25/2024 PREOPERATIVE DIAGNOSIS: L5.5 Impella left ventricular assist device. POSTOPERATIVE DIAGNOSIS: L5.5 Impella left ventricular assist device. PROCEDURE PERFORMED: Removal of Impella left ventricular assist device. OPERATING SURGEON: Reza Bettencourt MD. LOAN OFFICER ASSISTANT: Li Gaspar. ANESTHESIA: General endotracheal anesthesia. ANESTHESIOLOGIST: Dr. Jeramy Couch. BRIEF HISTORY: The patient is a 69-year-old male who approximately 3 weeks ago underwent an Impella assisted coronary artery bypass grafting. The patient has been weaned off of all pressors and his Impella has been weaned to as low as P2 with dysfunction on his echocardiogram. He presents now for removal of the Impella catheter. DESCRIPTION OF PROCEDURE: The patient was brought to the operating room and placed on the operating room table in the supine position. He was given general endotracheal anesthesia. After placement of lines and catheters, his chest and abdomen were prepped and draped in the usual sterile fashion. The skin clips around the Impella catheter that had been inserted in the lower left neck were removed. The aortic conduit was then grabbed with hemostat and scrubbed with undiluted Betadine. The sutures surrounding the graft and securing the catheter were then cut. The Impella catheter was turned off and removed from the heart clamping the conduit after removing the Impella. The graft was then stapled with a thoracic vascular stapler and clipped twice with large clips. It was again scrubbed with Betadine. The wound was then closed with a single layer of running Vicryl suture. The skin was closed with skin clips. The wounds were cleaned and dried and covered with bandages. The patient was undraped, extubated, and taken to the ICU in critical and stable condition. TID: [id number] RECEIPT: [id number] cc: Li Gaspar,
[2024-11-26 05:00] LABS: IMMATURE GRANULOCYTE ABSOLUTE 0.07 K/uL (0-1); NUCLEATED RED BLOOD CELLS 0.0 % (0.0-0.19); PLATELET COUNT (AUTO) 473 K/uL (130-400); RED BLOOD CELL COUNT(AUTO) 2.97 MIL/uL (4.50-6.20); RED CELL DISTRIBUTION WIDTH 14.3 % (11.0-15.5); WHITE BLOOD COUNT (AUTO) 8.9 K/uL (4.8-10.8)
[2024-11-26 05:12] LABS: ASPARTATE AMINOTRANSFERASE 21.0 U/L (10-37); CREATININE 1.6 mg/dL (0.5-1.3); GLOMERULAR FILTR. RATE CALC 47.0 mL/min (>90); GLUCOSE,RANDOM 150.0 mg/dL (70-105); SODIUM SERUM 138.0 mmol/L (136-145); TOTAL PROTEIN, SERUM 6.8 g/dL (6.0-8.3); UREA NITROGEN, BLOOD 14.0 mg/dL (7-18)
[2024-11-26] MEDS: SUGAMMADEX SODIUM 200 MG/2 ML VIAL IV ONE (09:47)
--- NOTE | 2024-11-26 11:13 | PN ---
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 Extremely happy that the Impella was removed. Nursing reports no acute events overnight. Patient remains on a touch of epi He is alert and oriented x4 reporting no chest pain or shortness of breath Vital signs are stable Afebrile Tolerating diet bowel movement overnight Plan: Follow CT surgeon recs Off pressors Cardiac diet Telemetry PT/OT when able Daily labs and chest x-ray in a.m. INOs Critical care time 39 minutes, patient reminds on pressor support, Time excludes any education or procedural time. High risk for decompensation REVIEW OF SYSTEMS: 12 point ROS reviewed with patient. Pertinent positives mentioned above. Otherwise negative. PHYSICAL EXAM: GENERAL: alert, weak, awake oriented x 3 HEENT: EOMI, Sclera non icteric, moist mucosa NECK: Supple, no JVD, trachea midline right IJ. Subclavian Impella 5.5 LUNGS: Rhonchi to right lower lobes. No wheezes HEART: Regular rate and rhythm. Normal S1 and S2, without murmurs mid incision line tenderness. Dressing clean dry and intact. ABD: Abdomen soft, nontender. Bowel sounds present EXT: No clubbing cyanosis or edema. Left femoral sheath. NEURO: Alert and oriented to person, follows commands Vital Signs (last 8hr) Date Time Temp Pulse Resp B/P (MAP) Pulse Ox O2 Delivery O2 Flow Rate FiO2 11/26/24 09:00 82 28 97/81 (86) 98 28 91/59 (70) 11/26/24 08:45 79 10 76/65 (69) 100 32 11/26/24 08:30 87 51 104/79 (87) 99 32 11/26/24 08:15 84 20 169/164 (166) 98 32 11/26/24 08:09 97.7 11/26/24 08:00 80 14 90/53 (65) 99 36 91/61 (71) 11/26/24 07:45 99 Nasal Cannula* 4 36 11/26/24 07:45 86 22 77/53 (61) 97 36 11/26/24 07:30 80 14 84/47 (59) 98 36 77/42 (54) 11/26/24 07:24 83 20 11/26/24 07:23 83 20 N/Cannula Low lpm 4.0 36 11/26/24 07:15 81 20 79/46 (57) 97 36 11/26/24 07:00 80 18 72/60 (64) 98 36 81/33 (49) 11/26/24 06:42 80 18 72/60 98 11/26/24 06:30 80 18 94/79 (84) 97 36 11/26/24 05:00 78 18 87/71 98 11/26/24 04:00 97.9 84 17 84/54 96 11/26/24 04:00 99 Non-Rebreather+ 15 100 LABS: Hematology Labs: Test 11/26/24 04:30 Range/Units White Blood Count 8.9 # 4.8-10.8 K/uL Red Blood Count 2.97 L 4.50-6.20 MIL/uL Hemoglobin 9.3 L 14.0-18.0 g/dL Hematocrit 29.2 L 42-54 % Mean Corpuscular Volume 98.3 79-99 fL Mean Corpuscular Hemoglobin 31.3 27.0-33.0 pg Mean Corpuscular Hemoglobin Concent 31.8 L 32.0-36.0 g/dL Red Cell Distribution Width 14.3 11.0-15.5 % Platelet Count 473 H 130-400 K/uL Mean Platelet Volume 9.4 7.5-10.5 fL Immature Granulocyte % (Auto) 0.8 0-1 % Neutrophils (%) (Auto) 74.4 40.0-77.0 % Lymphocytes (%) (Auto) 14.8 L 21.0-51.0 % Monocytes (%) (Auto) 8.6 3.0-13.0 % Eosinophils (%) (Auto) 0.7 0.0-8.0 % Basophils (%) (Auto) 0.7 0.0-5.0 % Neutrophils # (Auto) 6.6 1.8-7.7 K/uL Lymphocytes # (Auto) 1.3 1.0-4.8 K/uL Monocytes # (Auto) 0.8 0.1-1.0 K/uL Eosinophils # (Auto) 0.06 0.00-0.70 K/uL Basophils # (Auto) 0.06 0.00-0.20 K/uL Absolute Immature Granulocyte (auto 0.07 0-1 K/uL Nucleated Red Blood Cells 0.0 0.0-0.19 % Chemistry Labs: Test 11/26/24 04:30 11/25/24 04:34 Range/Units Sodium Level 138 136-145 mmol/L Potassium Level 3.4 L 3.5-5.1 mmol/L Chloride Level 102 101-111 mmol/L Carbon Dioxide Level 23 21-32 mmol/L Blood Urea Nitrogen 14 7-18 mg/dL Creatinine 1.6 H 0.5-1.3 mg/dL Glomerular Filtration Rate Calc 47 >90 mL/min Random Glucose 150 #H 70-105 mg/dL Total Calcium 8.2 L 8.5-10.1 mg/dL Total Bilirubin 0.4 0.2-1.0 mg/dL Aspartate Amino Transf (AST/SGOT) 21 10-37 U/L Alanine Aminotransferase (ALT/SGPT) 17 12-78 U/L Alkaline Phosphatase 108 50-136 U/L Total Protein 6.8 6.0-8.3 g/dL Albumin 2.8 L 3.5-5.0 g/dL Magnesium Level 2.40 1.80-2.40 mg/dL Coagulation Labs: Test 11/25/24 16:59 Range/Units Activated Partial Thromboplast Time 27.5 26.3-35.5 SEC DIAGNOSTICS / RADIOLOGY RESULTS: [ ] PLAN NEURO: Minimize central acting medications as possible. Fall Precautions. Well lighted room through the day and minimize interruptions through the night to prevent acute delirium. PULMONARY: Supplemental 02 as needed Titrate Fio2 to keep Spo2 > or = 90% DuoNebs and CPT as needed IS hourly while awake for pulmonary hygiene Out of bed to chair as tolerated VAP Bundle Bipap 12/6 fio2 50% RT to titrate FiO2 as needed to maintain O2 above 92% CARDIOVASCULAR: Follow hemodynamics. Titrate vasopressor to keep MAP >65 or systolic blood pressure >95mmHg DIPS: None LINES: Impella 5.5 A line GI & NUTRITION: NPO for now Aspirations precautions Prokinetic agents and laxatives as needed KIDNEYS & ELECTROLYTES: Strict monitoring of intake and output Daily weights Avoid nephrotoxic agents Monitor electrolytes and replace as needed Goal urine output of 30mL/hr or 0.5mL/kg/hr ENDOCRINE: Maintain blood glucose between 100-180 at all times. Insulin sliding scale for blood glucose management INFECTIOUS DISEASE: Trend temperature. Nichols-culture if febrile. Micro: [ ] MRSA negative Antibiotics: [ ] HEMATOLOGY & COAGULATION: Monitor H&H. Keep Hgb > 7 Transfuse 1 unit of PRBC for Hgb < 7 Transfuse 1 pack of platelets of platelets < 20, 000 Watch for any signs and symptoms of bleeding SKIN: Pressure ulcer prevention per facility protocol Code Status: Full Resuscitation Disposition: [ TBD SNOW MATAMOROS PAC Nov 26, 2024 11:13
--- NOTE | 2024-11-26 13:18 | PN ---
[facility] PROGRESS NOTE Date of Service: Nov 26, 2024 Time of Service: 13:18 SUBJECTIVE: Mr. Valadez a 68-year-old male that was seen and examined today on 11/03/2024. Patient reports that he came to the emergency department with a chief complaint of chest pain. Onset was two or three years ago. He had similar repeated episodes months back which resolved on its own. Today's episode began at 11:00 a.m. Location is midsternal. Duration is on and off. Character is described as "neck someone is pushing a knuckle into the center of my chest. The chest pain did not radiate to shoulder, neck or jaw. "There was no alleviating factors. There was no aggravating factors. Patient reports that symptoms seemingly resolve on their own. He denies nausea, vomiting, fever and any other associated symptoms. Patient denies any associated shortness of breath. Patient has a past medical history of hyperlipidemia and Graves disease. He has been taking atorvastatin and Synthroid as his home medications. Today in the emergency department WBC 5.8, hemoglobin 12.9 platelets 197. His chemistries were within normal limits sodium 140, potassium 4.2, blood urea nitrogen 15 and creatinine 1.0. His electrocardiogram showed normal sinus rhythm. Patient will be admitted for further evaluation and related recommendations in Med-Surg. 11/04/24 Patient was evaluated at the bedside in ED-09. He reports that he is having chest pain that comes and goes. The patient reports having 2 episodes of chest pain in the last hour. He denies associated symptoms such as shortness of breath, palpitation, diaphoresis, dizziness, nausea or syncope. He does however complain of muscle pain in his lower limbs described as a dull aching discomfort that begins in the hip region that is worsened with movement. The patient complains of tingling and numbness in his feet bilaterally. No fever, chills or recent infection reported. Appetite and oral intake are normal. No other acute complaints at this time. On physical exam, a systolic murmur was auscultated over the aortic area. Bilateral carotid bruits are present. Lower extremities are cool to the touch with diminished pedal pulses. Patient reports bilateral leg muscle pain with exertion (suggestive of claudication), and chronic numbness and tingling in the feet. Patient reports recently quitting smoking tobacco for 2 months. He had a 1 pack a day smoking history since 1968. The [facility] and denies following with a early childhood. The patient says his chest pain has been ongoing for the past 3 years, and that it gets worse with exertion and at rest. 11/05/24 Patient was evaluated at the bedside room 231. He was hemodynamically stable. Hi symptoms has improved significantly. He doesn't complain of chest pain, shortness of breath and any other associated symptoms. Echocardiogram was done which revealed aortic valve: trileaflet, mildly sclerotic, and opens well. Carotid artery ultrasound showed Bilateral ICA/CCA ratio more than 4.0 suggesting more than 70% stenosis. 11/06/24 Patient was evaluated at the bedside room 231. He was hemodynamically stable. Hi symptoms has improved significantly. He doesn't complain of chest pain, shortness of breath and any other associated symptoms. In coronary CT angiography there is mixed calcified and noncalcified plaque in the proximal LAD with 80-90% stenosis. Left circumflex coronary artery: Normal caliber, nondominant and gives rise to a large OM branch. There is mixed calcified and noncalcified plaque in the mid LCx with 80-90% stenosis. CAD-RAD of 4B. Left heart catheterization with selective right and left coronary angiography was performed which showed critical left main disease. 11/07/24 Patient was evaluated at the bedside room 231. He was hemodynamically stable. He doesn't complain of chest pain, shortness of breath and any other associated symptoms. He complaints of headache 8/10 of intensity after the administration of Nitroglycerin. Cardiac catheterization demonstrated a very tight left main lesion and the patient is referred for surgical revascularization. As per Dr Meza: Surgery is planned for today. 11/08/24: Patient was seen and evaluated this morning at bedside. The patient is POD 1 s/p CABG. Patient is currently being managed in the ICU. The patients most recent ABG shows a pH of 7.43, ABG PCO2 47, ABG PO2 77.9, ABG HCO3 30.8. Recent ABG shows improving lactic acid, from 8 to 3.85. The patients chemistry reveals a sodium level 157, potassium level 3.4, creatinine 1.9, BUN 19, GFR 38, phosphorous 2.2. Liver enzymes are trending up, with an ALT level at 325 and an AST level at 869. The patients home medication of Synthroid has been restarted. Chest x-ray ordered today, results pending. We will continue to follow recommendations from critical care team, and cardiology. 11/09/2024: Patient is seen and evaluated in the room 213. The patient is POD 2 s/p CABG. Patient is currently being managed in the ICU. He is complaining of pain. His vitals are in the normal range. His Hb is 11.1, WBC is 19.1, Plt is 115, sodium is 154, chloride is 113, glucose is 122. His recent ABG shows that pH is 7.472, pO2 is 80.1, bicarb is 30.4, Hb is 11.4, lactic acid is 1.63. His chest X-ray on 11/08 showed improved aeration within the left perihilar and left basilar regions. As per nurse he is having intervention confusion, stopped lidocaine and they also weaning on pressors norepinephrine and epinephrine. The drain output from left anterior chest is 20ml, mediastinal lateral is 160ml, mediastinal mediastinal is 300ml, right anterior chest is 160 ml. We will continue to follow recommendations from critical care team, and cardiology. 11/10/2024: Patient was seen and evaluated this morning at bedside. The patient is POD 3 s/p CABG. Patient is currently being managed in the ICU. He is not having any symptoms today. His vitals are in the normal range. His labs are normal except for Hb is 10.1, WBC is 14.7, plt is 85, sodium is 147, AST is 156, ALT is 95, APTT is 25.5. ABG shows that his pH is 7.4, lactate is 1.22, bicarb is 31. The drain output from left anterior chest is 170 ml, mediastinal mediastinal is 130ml. We will continue to follow recommendations from critical care team, and cardiology. 11/11/2024: Patient was seen and evaluated this morning at bedside. The patient is POD 4 s/p CABG. He is not having any symptoms today. His vitals are in the normal range. His labs are normal except for hemoglobin is 9.7, WBC is 11.7, platelet is 106, glucose is 107, AST is 87, ALT is 62. ABG shows pH is 7.468, lactic acid is 1.03. We will continue to follow recommendations from critical care team, and cardiology. 11/12/2024: Patient was seen and evaluated in the room 218. The patient is POD 5 s/p CABG. He is having dizziness and ache in the left shoulder. His vitals are in the normal range. His labs are normal except for hemoglobin 9.6, platelets is 94, AST 75. ABG shows pH 7.487, lactic acid 1.2. Currently he is not on any pressors. Cardiovascular surgery tried to wean Impella. They decreased impella setting to P4 but his blood pressure is low so they went back to P5. Cardiovascular surgery also increased his midodrine dose to 15mg. His chest X- ray showed mild pulmonary vascular congestion. He had a bowel movement and good urine output. He is using incentive spirometry well. We will continue to follow recommendations from the critical Care team and Cardiology. 11/13/2024: Patient was seen and evaluated in the room 218. The patient is POD 6 s/p CABG. He is having dizziness and generalized ache. His vitals are in the normal range. His labs are normal except for Hb is 8.9, calcium is 7.4, glucose is 140. His chest x-ray showed that mild borderline cardiomegaly with median sternotomy with cardiac and aspiration procedure, support lines in satisfactory position, no evidence of airspace consolidation or pulmonary venous congestion. He is restarted on norepinephrine and epinephrine drip and impella at P5 as he is hypotensive and has bradycardia. The nurse told me that she will consult anesthesia for changing the arterial line as his line is not working. He is on heparin drip and off of lovenox. The drain output from left anterior chest is 260 ml, mediastinal mediastinal is 60ml. Hematology was consulted as he is in a hypercoagulable state. 11/14/2024: Patient was seen and evaluated in the room 218. The patient is POD 7 s/p CABG. His vital signs are in the normal range except for blood pressure is 88/64. His labs are normal except for hemoglobin is 8.8, APTT is 62.4, glucose is 133, calcium is 7.5, AST is 61. Chest X-ray showed mild cardiomegaly with median sternotomy with cardiac revascularization procedure, support lines are in satisfactory position. His impella is increased to P7 as he is hypotensive and bradycardic. He is on epinephrine. The drain output from left anterior chest is 80ml and from mediastinal mediastinal is 20ml. Hematology saw the patient and they recommended to start folic acid, vitamin B12, ordered SPEP, UPEP, free light chains. They think that the patient might be having hemolytic anemia which could be the reason for his graft clotting after surgery. 11/15/2024: He was evaluated at the bedside this morning. The patient is POD 8 s/p CABG. He is on Impella support with blood pressure 89/64 with map 72. Remarkable lab is for hemoglobin 9.2. Chest x-ray revealed mildly improved right lower lobe airspace opacity with stable cardiac support device and median sternotomy. His MPOA is encouraged to P8 and weaned off the pressors. Hematology recommending Tatiana test to rule out autoimmune hemolytic anemia. Hematology, CT surgery, critical care and cardiology on the board. Rest of the plan as discussed below. 11/16/2024: He was evaluated at the bedside this morning. The patient is POD 9 s/p CABG. Impella support has been weaned to P5 today. As per Dr. Khan, epi will be turned on at 0.03 mcg/kg/min and Impella performance level will be decreased to p4 tomorrow morning. Today, patient's BP is at 102/62, 79bpm and he is on 3L O2 nasal cannula. He is pending direct tatiana test, SPEP, UPEP and Free Light Chain assay as per hematology. His Hb from today is 8.9. Chest Tube drainage is at 201 ml. Hematology, CT surgery, critical care and cardiology on the board. 11/17/2024: He was evaluated at the bedside this morning. The patient is POD 10 s/p CABG. Impella support has been weaned to P4 today. Patient is currently on epinephrine 0.03 mcg/kg/minute as per Dr. Khan. Patient is receiving Lasix for diuresis and her urine output in the past 24 hours has been for 4050 mL. Mediastinal mediastinal chest tube drainage is 40 mL. Left anterior chest tube drainage is 104 mL. Hematology, CT surgery, critical care and cardiology on the board. 11/18/2024: He was evaluated at the bedside this morning. The patient is POD 11 s/p CABG. Impella support continues on P4 today. Plan is to wean off further tomorrow. Patient is currently on epinephrine 0.05 mcg/kg per minute. His blood pressure is running low, 88/48. Patient is receiving Lasix for diuresis and his urine output in the past 24 hours has been for 3400 mL. Mediastinal mediastinal chest tube drainage is 60 mL. Left anterior chest tube drainage is 140 mL. Hematology, CT surgery, critical care and cardiology on the board. As per Hematology recommendations, IV iron sucrose was ordered since iron panel showed low iron, and low percentage saturation. 11/19/2024: Patient was seen and evaluated at the bedside this morning. The patient is POD 12 s/p CABG. Impella support continues on P4 today and there is a plan to wean it off further, awaiting cardiothoracic surgery recommendations. Patient is currently maintained on epinephrine 0.03 mcg/kg per minute. His blood pressure is still running low, 92/44. He passed stool twice yesterday, after 7 days of constipation. Hematology, CT surgery, critical care and cardiology on the board. 11/20/2024: Patient was seen and evaluated at bedside this morning. He continues on P4 support. He is vitally stable with BP 101/56. WBCs are trending down from 12.4 K to 11.1 K. His TSH was elevated, 7.13. Free T3 test showed 1.64. We will continue to follow recommendations from Cardiothoracic surgery, Cardiology, and critical Care teams. 11/21/24: Patient was seen and evaluated at bedside this morning in room 218. The patient is POD 14 s/p CABG He continues on P4 support planning to be weaned off to lower settings if he continues to do better as per cardiothoracic surgery recommendations. Blood pressure on arterial line is 97/52 (67). WBCs are trending down from 11.1 to 10.0. His TSH was elevated, 7.13. Free T3 test showed 1.64. We will continue to follow recommendations from Cardiothoracic surgery, Cardiology, and critical Care teams. 11/22/24: Patient was seen and evaluated at bedside this morning in room 218. The patient is POD 15 s/p CABG. He continues on P4 support today as weaning off has been unsuccessful so far. He is currently on 0.08 epi support. He is undergoing diuresis as well. He reports no bowel movement for the past several days. We will continue to follow recommendations from Cardiothoracic surgery, Cardiology, and critical Care teams. 11/23/2024: Patient was seen and evaluated at the bedside this morning in room 218. This is postop day 16 status post CABG. He had no acute events overnight and was sitting comfortably in his chair during my visit. Patient continues on Impella P4 for support today. His vasopressor support is reducing today at 0.06 mcg. Patient denies chest pain, shortness of breath however has mild cough. Plan is to slowly taper off epinephrine and Impella. We will continue to follow recommendations from Cardiothoracic surgery, Cardiology and critical Care teams. 11/24/24: Patient was evaluated at the bedside in room 218. This is postop day 17 status post CABG. He had no acute events overnight and was sitting comfortably in his chair. Patient is weaned off epinephrine completely. Continues on Impella P3 support. Patient denies chest pain, shortness of breath, or anginal equivalents. All the chest tubes are out. We will continue to follow recommendations from Cardiothoracic surgery, Cardiology, critical Care team. 11/25/2024: Patient was evaluated at bedside in room 218. This is postop day 18 status post CABG. No acute events overnight and was sleeping comfortably in his chair and had good spirits. Patient has been off vasopressors for over 24 hours now and his blood pressures have been holding in 100s. He continues on Impella P3 support and the plan is for removal later today. Patient denied chest pain, shortness of breath or angina equivalents. We will continue to follow recommendations from Cardiothoracic surgery, Cardiology, and critical care team. 11/26/2024: Patient was evaluated at the bedside in room 218. His Impella was removed yesterday afternoon and has been resumed on Epinephrine at 0.06 mcg. Patient's systolic blood pressures have been soft and were in the range of 80- 90s. He denied chest pain, shortness of breath, dizziness, abdominal pain and headaches. Reported mild throat soreness and cough. We will continue to monitor for his recovery and follow cardiology, cardiothoracic, and critical care recommendations. REVIEW OF SYSTEMS CONSTITUTIONAL: Pain in his left shoulder, improved No fever, chills, or night sweats. NEUROLOGICAL: No headache no sensory and motor deficit. CARDIOVASCULAR: Dizziness, improved Denies any exertional angina, dyspnea on exertion, palpitations. PULMONARY: Denies any shortness of breath, cough, phlegm/sputum, hemoptysis, pleuritic chest pain. GASTROINTESTINAL: Constipation. Denies nausea, vomiting. Denies pain, tenderness around the abdomen. GENITOURINARY: Denies frequency, urgency, nocturia, hematuria or incontinence. PHYSICAL EXAM GENERAL APPEARANCE: The patient is alert, awake and oriented and bedbound. NEUROLOGICAL: No sensory and motor deficits. CHEST: left anterior chest , mediastinal mediastinal drains are removed. Dressing is clean Normal chest expansion. LUNGS: Normal vesicular breath sound. Absence of any rales, rhonchi or any wheezing. CARDIOVASCULAR: Systolic murmur heard over aortic area. Bilateral carotid bruits heard. No JVD. ABDOMEN: Soft nontender, and nondistended. There is no rebound, voluntary guarding, or rigidity. No abdominal bruit heard. GENITOURINARY: No suprapubic tenderness. No costovertebral angle tenderness. EXTREMITIES: Limbs are non-edematous. Vital Signs (last 8hr) Date Time Temp Pulse Resp B/P (MAP) Pulse Ox O2 Delivery O2 Flow Rate FiO2 11/26/24 12:15 99 Room Air* 0 21 11/26/24 12:12 98.2 0.0 21 11/26/24 12:00 89 20 73/63 (66) 98 80/46 (57) 11/26/24 11:45 90 33 82/66 (71) 97 11/26/24 11:33 83 27 80/68 (72) 99 100/59 (73) 11/26/24 11:30 87 83 77/64 (68) 100 11/26/24 11:29 82 18 11/26/24 11:28 82 18 N/A Room Air 21 11/26/24 11:00 81 16 149/130 (136) 96 106/60 (75) 11/26/24 10:45 87 23 119/89 (99) 96 11/26/24 10:30 79 17 284/247 (259) 96 93/56 (68) 11/26/24 10:15 78 22 62/50 (54) 95 92/54 (67) 11/26/24 10:00 81 30 70/58 (62) 98 82/52 (62) 11/26/24 09:45 81 19 224/186 (199) 96 86/57 (67) 11/26/24 09:30 82 14 83/74 (77) 95 11/26/24 09:15 84 17 66/52 (57) 94 11/26/24 09:00 82 28 97/81 (86) 98 28 91/59 (70) 11/26/24 08:45 79 10 76/65 (69) 100 32 11/26/24 08:30 87 51 104/79 (87) 99 32 11/26/24 08:15 84 20 169/164 (166) 98 32 11/26/24 08:09 97.7 11/26/24 08:00 80 14 90/53 (65) 99 36 91/61 (71) 11/26/24 07:45 99 Nasal Cannula* 4 36 11/26/24 07:45 86 22 77/53 (61) 97 36 11/26/24 07:30 80 14 84/47 (59) 98 36 77/42 (54) 11/26/24 07:24 83 20 11/26/24 07:23 83 20 N/Cannula Low lpm 4.0 36 11/26/24 07:15 81 20 79/46 (57) 97 36 11/26/24 07:00 80 18 72/60 (64) 98 36 81/33 (49) 11/26/24 06:42 80 18 72/60 98 11/26/24 06:30 80 18 94/79 (84) 97 36 LABS: Laboratory: Test 11/26/24 04:30 11/25/24 16:59 11/25/24 04:34 Range/Units White Blood Count 8.9 # 4.8-10.8 K/uL Red Blood Count 2.97 L 4.50-6.20 MIL/uL Hemoglobin 9.3 L 14.0-18.0 g/dL Hematocrit 29.2 L 42-54 % Mean Corpuscular Volume 98.3 79-99 fL Mean Corpuscular Hemoglobin 31.3 27.0-33.0 pg Mean Corpuscular Hemoglobin Concent 31.8 L 32.0-36.0 g/dL Red Cell Distribution Width 14.3 11.0-15.5 % Platelet Count 473 H 130-400 K/uL Mean Platelet Volume 9.4 7.5-10.5 fL Immature Granulocyte % (Auto) 0.8 0-1 % Neutrophils (%) (Auto) 74.4 40.0-77.0 % Lymphocytes (%) (Auto) 14.8 L 21.0-51.0 % Monocytes (%) (Auto) 8.6 3.0-13.0 % Eosinophils (%) (Auto) 0.7 0.0-8.0 % Basophils (%) (Auto) 0.7 0.0-5.0 % Neutrophils # (Auto) 6.6 1.8-7.7 K/uL Lymphocytes # (Auto) 1.3 1.0-4.8 K/uL Monocytes # (Auto) 0.8 0.1-1.0 K/uL Eosinophils # (Auto) 0.06 0.00-0.70 K/uL Basophils # (Auto) 0.06 0.00-0.20 K/uL Absolute Immature Granulocyte (auto 0.07 0-1 K/uL Nucleated Red Blood Cells 0.0 0.0-0.19 % Sodium Level 138 136-145 mmol/L Potassium Level 3.4 L 3.5-5.1 mmol/L Chloride Level 102 101-111 mmol/L Carbon Dioxide Level 23 21-32 mmol/L Blood Urea Nitrogen 14 7-18 mg/dL Creatinine 1.6 H 0.5-1.3 mg/dL Glomerular Filtration Rate Calc 47 >90 mL/min Random Glucose 150 #H 70-105 mg/dL Total Calcium 8.2 L 8.5-10.1 mg/dL Total Bilirubin 0.4 0.2-1.0 mg/dL Aspartate Amino Transf (AST/SGOT) 21 10-37 U/L Alanine Aminotransferase (ALT/SGPT) 17 12-78 U/L Alkaline Phosphatase 108 50-136 U/L Total Protein 6.8 6.0-8.3 g/dL Albumin 2.8 L 3.5-5.0 g/dL Activated Partial Thromboplast Time 27.5 26.3-35.5 SEC Magnesium Level 2.40 1.80-2.40 mg/dL Current Medications Medications (Trade) Dose Ordered Sig/Brittany Route PRN Reason Start Time Stop Time Status Last Admin Dose Admin Acetaminophen (TYLenol 325MG TAB) 650 mg Q4H PRN PO Temp >38.3C(AFTER EXTUBATION) 11/07/24 14:00 12/07/24 13:59 Acetaminophen (TYLenol 325MG TAB) 650 mg Q6H PRN PO TEMPERATURE GREATER THAN 101.5 11/03/24 21:00 11/07/24 14:00 DC 11/06/24 23:00 650 MG Acetaminophen (TYLenol 325MG TAB) 650 mg Q6H PRN PO MILD PAIN (1-3) 11/07/24 14:00 12/07/24 13:59 11/16/24 11:37 650 MG Acetaminophen (TYLenol 650MG SUPPOSITORY) 650 mg Q4H PRN RC Temp >38.3C WHILE INTUBATED 11/07/24 14:00 12/07/24 13:59 Acetaminophen (acetaMINOPHEN) 1,000 mg Q6H IVPB 11/09/24 09:00 11/12/24 08:59 DC 11/12/24 02:11 1,000 MG Acetaminophen (acetaMINOPHEN) 1,000 mg Q6H6 IV 11/07/24 18:00 11/08/24 17:59 DC 11/08/24 18:08 1,000 MG Albumin Human 250 ml @ 0 mls/hr AD IV 11/23/24 09:00 11/28/24 08:59 11/23/24 08:55 250 MLS/HR Albumin Human 250 ml @ 0 mls/hr AD PRN IV IF HEMODYNAMICALLY UNSTABLE 11/07/24 14:00 11/08/24 09:57 DC 11/08/24 09:57 125 MLS/HR Albumin Human 250 ml @ 0 mls/hr AD STAT IV 11/15/24 13:09 11/15/24 13:12 DC 11/15/24 13:28 250 MLS/HR Aminocaproic Acid 45313 mg/Sodium Chloride 310 ml @ 25 mls/hr AD IV 11/07/24 14:00 11/08/24 02:23 DC Aminocaproic Acid 03797 mg/Sodium Chloride 480 ml @ 0 mls/hr AD PRN IV BLEEDING CONTROL 11/07/24 11:00 11/07/24 14:03 DC Aspirin (Aspirin 81mg Ec Tab) 81 mg DAILY PO 11/04/24 09:00 12/04/24 08:59 11/26/24 09:51 81 MG Atorvastatin Calcium (LIPItor 40MG) 40 mg HS PO 11/03/24 21:00 11/03/24 20:40 DC Atorvastatin Calcium (LIPItor 40MG) 40 mg HS PO 11/03/24 21:00 11/09/24 07:45 DC 11/07/24 20:15 40 MG Atorvastatin Calcium (LIPItor 40MG) 40 mg HS PO 11/10/24 21:00 12/10/24 20:59 11/25/24 21:19 40 MG Calcium Gluconate (Calcium Gluc 1gm Vial) 1 gm AD PRN IV HYPOCALCEMIA 11/08/24 09:00 11/09/24 07:45 DC 11/08/24 16:36 1 GM Calcium Gluconate 1 gm/Sodium Chloride 60 ml @ 200 mls/hr AD PRN IV HYPOCALCEMIA 11/07/24 14:00 12/07/24 13:59 11/21/24 06:13 200 MLS/HR Cefazolin Sodium (Ancef) 2 gm ONCALL IVPB 11/06/24 22:00 11/07/24 14:00 DC Cefazolin Sodium (Ancef) 2 gm Q8H IVPB 11/07/24 19:00 11/08/24 11:01 DC 11/08/24 11:15 2 GM Clopidogrel Bisulfate (plaVIX 75MG) 75 mg DAILY PO 11/08/24 14:00 12/08/24 13:59 11/26/24 09:51 75 MG Dexmedetomidine/ Sodium Chloride (PRECEdex 400MCG/ 100ML-NS) 400 mcg PROTOCOL IV 11/07/24 14:00 12/07/24 13:59 Dextrose (D50w) 50 ml AD PRN IV HYPOGLYCEMIA PROTOCOL 11/07/24 14:00 12/07/24 13:59 Dextrose/Sodium Bicarbonate 1,025 ml @ 10 mls/hr Q24H IV 11/07/24 19:30 12/07/24 19:29 11/22/24 19:39 10 MLS/HR Docusate Sodium (COLace 100MG CAP) 100 mg BID PO 11/07/24 21:00 11/08/24 10:11 DC 11/07/24 20:15 100 MG Docusate Sodium (COLace 100MG CAP) 100 mg BID PO 11/10/24 09:00 12/10/24 08:59 11/26/24 09:51 100 MG Docusate Sodium (COLace LIQUID 100MG/10ML) 100 mg BID NG 11/08/24 10:30 11/09/24 21:53 DC 11/09/24 20:47 100 MG Enoxaparin Sodium (Lovenox) 30 mg DAILY SQ 11/10/24 09:00 11/13/24 08:38 DC 11/12/24 09:03 30 MG Enoxaparin Sodium (Lovenox) 40 mg DAILY SQ 11/04/24 09:00 11/07/24 13:38 DC 11/05/24 09:06 40 MG Epinephrine HCl 10 mg/Sodium Chloride 250 ml @ 13.948 mls/ hr AD PRN IV POST-OP CARDIOVASCULAR ORDERS 11/07/24 14:00 11/12/24 13:59 DC 11/09/24 19:48 7 MLS/HR Epinephrine HCl 10 mg/Sodium Chloride 250 ml @ 0 mls/hr AD PRN IV TITRATE 11/07/24 11:00 11/07/24 14:02 DC Epinephrine HCl 10 mg/Sodium Chloride 250 ml @ 0 mls/hr PROTOCOL IV 11/12/24 23:30 12/12/24 23:29 11/26/24 09:46 8.3 MLS/HR Famotidine (Pepcid 20mg Vial) 20 mg BID IV 11/07/24 21:00 11/08/24 08:59 DC 11/08/24 08:11 20 MG Famotidine (Pepcid 20mg Tab) 20 mg DAILY PO 11/04/24 09:00 11/07/24 13:38 DC 11/05/24 09:06 20 MG Fludrocortisone Acetate (Fludrocortisone Acetate) 0.1 mg BID PO 11/23/24 15:30 12/23/24 15:29 11/26/24 09:51 0.1 MG Folic Acid (FOLic ACID 1 MG TABLET) 1 mg DAILY PO 11/14/24 09:00 12/14/24 08:59 11/26/24 09:51 1 MG Furosemide (LASix 20MG TAB) 20 mg Q12H PO 11/09/24 09:00 11/24/24 15:51 DC 11/22/24 19:40 20 MG Furosemide (LASix 20MG TAB) 20 mg Q12H PO 11/25/24 09:00 12/11/24 23:00 11/25/24 21:18 20 MG Furosemide (LASix 20MG VIAL) 20 mg Q12H IV 11/08/24 09:00 11/09/24 08:59 DC 11/08/24 20:23 20 MG Glucagon (Glucagon 1mg Kit) 1 mg AD PRN IM HYPOGLYCEMIA PROTOCOL 11/07/24 14:00 12/07/24 13:59 Guaifenesin/ Dextromethorphan (RobiTUSSin DM 200/20MG 10ML) 15 ml Q6H PRN PO COUGH 11/19/24 15:00 12/19/24 14:59 11/24/24 15:30 15 ML Heparin Sodium (Porcine) (HEParin 5,000 UNIT VIAL) *calculation based on ACTUAL B... AD PRN IV HEPARIN PROTOCOL 11/13/24 09:30 11/25/24 18:40 DC Heparin Sodium/ Dextrose 250 ml @ 0 mls/hr Q6H IV 11/13/24 09:30 11/25/24 18:40 DC 11/24/24 15:31 10.8 MLS/HR Hydralazine HCl (APRESOLine 20MG INJ) 10 mg Q6H PRN IV For:SBP above 160;DBP above 90 11/03/24 21:00 11/07/24 13:38 DC Insulin Human Regular 100 unit/ Sodium Chloride 100 ml @ 0 mls/hr AD IV 11/07/24 14:00 11/09/24 13:59 DC 11/08/24 12:30 4 MLS/HR Ipratropium [place] (AtrovENT UD) 0.5 MG [id number] IH 11/08/24 12:00 12/08/24 11:59 11/26/24 11:28 0.5 MG Lactulose (Constulose 20gm/ 30ml Udcup) 20 gm BID PRN PO CONSTIPATION 11/03/24 21:00 11/07/24 14:00 DC Lactulose (Constulose 20gm/ 30ml Udcup) 20 gm BID PRN PO CONSTIPATION 11/07/24 14:00 12/07/24 13:59 11/18/24 06:21 20 GM Levothyroxine Sodium (SYNTHroid 125MCG TAB) 125 mcg SYN PO 11/09/24 06:30 12/09/24 06:29 11/26/24 07:49 125 MCG Lidocaine HCl/ Dextrose 250 ml @ 0 mls/hr PROTOCOL PRN IV OTHER [SEE ORDER COMMENTS] 11/08/24 21:00 11/09/24 08:37 DC 11/08/24 21:15 7.5 MLS/HR Magnesium Hydroxide (Milk Of Magnesium 30ml) 30 ml DAILY PRN PO CONSTIPATION 11/07/24 14:00 12/07/24 13:59 Magnesium Sulfate 50 ml @ 12.5 mls/hr AD PRN IV MAG LEVEL LESS THAN 2.0 11/07/24 14:00 12/07/24 13:59 11/09/24 05:59 12.5 MLS/HR Metoprolol Tartrate (loprESSOR) 12.5 mg BID PO 11/09/24 09:00 11/11/24 09:39 DC Metoprolol Tartrate (loprESSOR) 50 mg BID PO 11/04/24 21:00 11/07/24 13:38 DC 11/06/24 20:38 50 MG Midodrine (PROAMatine 5 MG TABLET) 10 mg TID PO 11/09/24 21:00 11/11/24 06:58 DC 11/10/24 20:07 10 MG Midodrine (PROAMatine 5 MG TABLET) 15 mg TID PO 11/11/24 09:00 12/11/24 08:59 11/26/24 09:51 15 MG Montelukast Sodium (SinguLAIR) 10 mg HS PO 11/08/24 21:00 12/08/24 20:59 11/25/24 21:19 10 MG Morphine Sulfate (morPHINE 2MG SYG) 0.5 mg Q2H PRN IV MODERATE PAIN (4-6) 11/07/24 14:00 11/08/24 13:59 DC Morphine Sulfate (morPHINE 2MG SYG) 1 mg Q2H PRN IV SEVERE PAIN (7-10) 11/07/24 14:00 11/08/24 13:59 DC Morphine Sulfate (morPHINE 4MG SYG) 2 mg Q4H PRN IVP SEVERE PAIN (7-10) 11/03/24 21:00 11/07/24 13:38 DC 11/04/24 15:49 2 MG Nitroglycerin (Nitroglycerin 1gm Oint) 0.5 inch Q8H TD 11/03/24 21:00 11/07/24 13:38 DC 11/07/24 05:46 0.5 INCH Nitroglycerin/ Dextrose 0 ml @ 0 mls/hr AD IV 11/07/24 14:00 11/10/24 13:59 DC Norepinephrine Bitartrate 250 ml @ 0 mls/hr AD PRN IV TITRATE 11/07/24 11:00 11/07/24 14:02 DC Norepinephrine Bitartrate 250 ml @ 0 mls/hr AD PRN IV POST-OP CARDIOVASCULAR ORDERS 11/07/24 14:00 11/12/24 13:59 DC 11/09/24 17:09 5.6 MLS/HR Norepinephrine Bitartrate 250 ml @ 0 mls/hr PROTOCOL IV 11/12/24 18:30 12/12/24 18:29 11/13/24 08:42 2 MLS/HR Ondansetron HCl (zoFRAN 4MG INJ) 4 mg Q6H PRN IV NAUSEA/VOMITING 11/03/24 21:00 11/07/24 14:00 DC Ondansetron HCl (zoFRAN 4MG INJ) 4 mg Q6H PRN IV NAUSEA/VOMITING 11/07/24 14:00 12/07/24 13:59 11/09/24 21:50 4 MG Pantoprazole Sodium (PROTonix 40MG INJ) 40 mg BID IVP 11/08/24 09:00 12/08/24 08:59 11/26/24 09:51 40 MG Pharmacy Profile Note (Pharmacy Communication) 1 each ONCE MISC 11/13/24 09:00 11/13/24 08:57 DC Piperacillin Sod/ Tazobactam Sod (Zosyn 3.375gm+NS 50ml) 3.375 gm Q8H IV 11/09/24 10:00 11/09/24 09:38 DC Piperacillin Sod/ Tazobactam Sod (Zosyn 3.375gm+NS 50ml) 3.375 gm Q8H IV 11/09/24 10:00 11/19/24 09:59 DC 11/19/24 02:20 3.375 GM Polyethylene Glycol (MIRalax 3350 17 GM POWD.PACK) 17 gm DAILY PO 11/09/24 09:00 12/09/24 08:59 11/23/24 08:48 17 GM Potassium Phosphate 250 ml @ 42 mls/hr AD PRN IV LOW PHOS LEVEL 11/07/24 14:00 12/07/24 13:59 11/08/24 07:22 42 MLS/HR Potassium Chloride 100 ml @ 100 mls/hr AD PRN IV HYPOKALEMIA 11/07/24 14:00 12/07/24 13:59 11/24/24 05:53 100 MLS/HR Potassium Chloride (K-Dur/Klor-Con 20meq) 20 meq AD PRN PO POTASSIUM PROTOCOL 11/14/24 00:30 12/14/24 00:29 11/26/24 12:26 20 MEQ Potassium Chloride (KCl 10% Elixir 20meq/15ml) 20 meq AD PRN PO POTASSIUM PROTOCOL 11/14/24 00:30 12/14/24 00:29 11/21/24 08:34 20 MEQ Propofol 100 ml @ 0 mls/hr AD PRN IV SEDATION 11/07/24 14:00 11/11/24 13:59 DC Sodium Bicarbonate (Sodium Bicarb 50meq 50ml Vial) 50 meq AD PRN IV OTHER[SEE DOSING INSTRUCTIONS] 11/07/24 14:00 11/10/24 13:59 DC 11/08/24 00:54 50 MEQ Sodium Chloride 250 ml @ 0 mls/hr Q0M IV 11/18/24 10:00 12/18/24 09:59 11/18/24 10:13 250 MLS/HR Sodium Chloride 500 ml @ 0 mls/hr AD IV 11/07/24 14:00 12/07/24 13:59 11/10/24 00:41 3 MLS/HR Sodium Chloride 1,000 ml @ 10 mls/hr ONCE IV 11/07/24 14:00 11/08/24 13:59 DC 11/07/24 20:11 10 MLS/HR Sodium Chloride 1,000 ml @ 100 mls/hr Q10H IV 11/06/24 12:30 11/06/24 15:29 DC Sodium Chloride (NS Flush 10ml) 10 ml Q8H PRN IVP IV LINE FLUSH 11/07/24 14:00 12/07/24 13:59 Sucralfate (Carafate) 1 gm TID PO 11/08/24 21:00 12/08/24 20:59 11/26/24 09:51 1 GM Tramadol HCl (UltRAM) 25 mg Q6H PRN PO MODERATE PAIN (4-6) 11/07/24 14:00 11/09/24 08:37 DC Tramadol HCl (UltRAM) 50 mg Q6H PRN PO SEVERE PAIN (7-10) 11/07/24 14:00 11/09/24 08:37 DC 11/08/24 23:30 50 MG Vitamin B Complex (Vitamin B-12) 1,000 mcg DAILY IM 11/07/24 09:00 11/13/24 08:59 DC 11/12/24 09:03 1,000 MCG Vitamin B Complex (Vitamin B-12) 1,000 mcg DAILY PO 11/14/24 09:00 12/14/24 08:59 11/26/24 09:51 1,000 MCG DIAGNOSTICS / RADIOLOGY: [ ] ASSESSMENT: Coronary artery disease, POA, s/p CABG 3v and redo sternotomy with redo of graft failure now s/p CABG with 4v Postop acute anemia requiring transfusion Acute kidney injury Hyperlipidemia, POA Hypothyroidism, POA Peripheral artery disease, suspected Carotid artery stenosis PLAN: Coronary artery disease, POA s/p CABG 3v and redo sternotomy with redo of graft failure now s/p CABG with 4v * Administer aspirin 325 mg p.o. now and then continue aspirin 81 mg p.o. daily * Troponin every 6 hours, serial troponin levels are 10-21-11. * Supplemental oxygen as needed to maintain SpO2 greater than 94% * A cardiology consult has been placed for evaluation of CAD in patient with exertional chest pain and vascular disease. 11/04/24 * Echocardiogram was done which revealed aortic valve: trileaflet, mildly sclerotic, and opens well. * In coronary CT angiography there is mixed calcified and noncalcified plaque in the proximal LAD with 80-90% stenosis. Left circumflex coronary artery: Normal caliber, nondominant and gives rise to a large OM branch. There is mixed calcified and noncalcified plaque in the mid LCx with 80-90% stenosis. * Left heart catheterization with selective right and left coronary angiography was performed which showed critical left main disease. Severe ostial RCA stenosis. 11/06/24 * Cardiac catheterization demonstrated a very tight left main lesion and the patient is referred for surgical revascularization. * Patient is POD 19 S/P CABG, patient is being managed in the ICU per protocol. * Off impella from yesterday, on Epinephrine 0.06 mcg. * We will continue to follow Cardiology and critical care recommendations. * Hematology saw the patient and they recommended to start folic acid, vitamin B12, ordered SPEP, UPEP, free light chains. kappa light chain - 203, Lambda light chain -29.5. They think that the patient might be having hemolytic anemia which could be the reason for his graft clotting after surgery. Peripheral vascular disease, suspected * Patient has history of exertional bilateral leg pain * Diminished peripheral pulses * A SERA has been ordered due to the patients complaint of bilateral lower extremity claudication, and numbness/tingling in bilateral lower extremities. * Clear aspirin 81 mg daily and statin 40mg * Encouraged supervised exercise therapy for claudication * Counseled on continued smoking cessation 11/04/24 Peripheral Neuropathy * Vitamin B12 has been ordered to rule out peripheral neuropathy.on 11/06/24, 11/17/24 * Complained of numbness and tingling in his limbs. * Vitamin B12 level was measured which showed [id number]. * Patient has been started on vitamin B12 supplement 1000 mcg for 6 days. Carotid artery stenosis * Presence of bilateral carotid bruit on exam, suspicion for significant stenosis * Risk factor modification: Smoking cessation, BP control, glycemic control. 11/04/24 * Carotid artery ultrasound showed Bilateral ICA/CCA ratio more than 4.0 suggesting more than 70% stenosis. 11/05/24 * Cardiology recommended CT/MR angiogram when stable from surgical standpoint Hyperlipidemia * Continue home statin therapy atorvastatin 40 mg * Reinforce low-cholesterol, heart healthy diet (limit saturated fats, increase fiber, fruits and vegetables) * Encouraged regular physical activity as tolerated * Monitor lipid panel * Outpatient follow up with PCP/Cardiology for long-term lipid management and cardiovascular risks reduction Supportive measures * Start patient on GI prophylaxis * DVT prophylaxis * Monitor morning labs CBC and BMP daily * He is on heart healthy diet Hypothyroidism * Continue home dose of levothyroxine at 125 mcg daily * TSH 7.13 and Free T3 1.64. Postop acute anemia requiring transfusion - Patient's hemoglobin on 11/18 is 9. Patient has normocytic anemia - His iron panel from 11/17 showed low iron and low percentage saturation. - As per Hematology recommendations, patient was given IV iron sucrose 11/18 - Follow up with morning CBC. ATTESTATION BY PHYSICIAN I have seen and examined the patient. I reviewed the documentation, medical decision making, and treatment plan as noted by the resident physician above. I agree with the findings and plan of care. ALISA POLLARD MD, HARSHAVARDHA MD Nov 26, 2024 13:18
[2024-11-26] MEDS ORDERED: FLUDROCORTISONE ACETATE 0.1 MG TABLET PO SCH (21:00)
[2024-11-26] MEDS: FLUDROCORTISONE ACETATE 0.1 MG TABLET PO SCH (21:36)
[2024-11-27] VITALS (64 sets, daily range): BP systolic 73–122; BP diastolic 40–82; PULSE 69–98; RESP 10–62; TEMP 97.9–98.3; O2SAT 93–100
[2024-11-27 04:27] LABS: IMMATURE GRANULOCYTE ABSOLUTE 0.04 K/uL (0-1); NUCLEATED RED BLOOD CELLS 0.0 % (0.0-0.19); PLATELET COUNT (AUTO) 384 K/uL (130-400); RED BLOOD CELL COUNT(AUTO) 2.70 MIL/uL (4.50-6.20); RED CELL DISTRIBUTION WIDTH 14.5 % (11.0-15.5); WHITE BLOOD COUNT (AUTO) 6.1 K/uL (4.8-10.8)
[2024-11-27 04:44] LABS: ASPARTATE AMINOTRANSFERASE 20.0 U/L (10-37); CREATININE 1.0 mg/dL (0.5-1.3); GLOMERULAR FILTR. RATE CALC 82.0 mL/min (>90); GLUCOSE,RANDOM 130.0 mg/dL (70-105); SODIUM SERUM 142.0 mmol/L (136-145); TOTAL PROTEIN, SERUM 6.5 g/dL (6.0-8.3); UREA NITROGEN, BLOOD 9.0 mg/dL (7-18)
--- NOTE | 2024-11-27 08:23 | PN ---
[facility] CARDIOLOGY PROGRESS NOTE Date Patient Seen: Nov 27, 2024 Time of Visit: 08:19 Interval History: No acute events overnight , Impella has been successfully removed without complications, orthostatics have been positive, currently denies any cardiac symptoms or anginal equivalents Physical Examination: GENERAL: No acute distress. HEAD: Normal with no signs of head trauma. EYES: PERRLA, EOMI, conjunctiva and sclera normal. ENT: Hearing grossly intact, normal oropharynx. NECK: Supple without JVD. There is no tenderness, lymphadenopathy, or masses. No thyromegaly. Normal carotid upstrokes without bruits. LUNGS: Clear breath sounds bilaterally. No wheezes, or rhonchi.chest tubes are in HEART: Normal rate and rhythm. Normal S1 and S2 without murmurs, gallop or rub. VASC: Peripheral pulses +2 bilaterally. ABD: Bowel sounds normal, soft, nontender, no masses, no organomegaly. No audible bruits. : Not examined LYMPH: No lymphadenopathy noted. EXT: No clubbing, cyanosis or edema. SKIN: No rashes or lesions noted. NEURO: Awake, alert, and oriented x3. No focal sensory or strength deficits noted. Laboratory: [ ] Hematology Labs: Test 11/27/24 03:58 Range/Units White Blood Count 6.1 # 4.8-10.8 K/uL Red Blood Count 2.70 L 4.50-6.20 MIL/uL Hemoglobin 8.5 L 14.0-18.0 g/dL Hematocrit 26.7 L 42-54 % Mean Corpuscular Volume 98.9 79-99 fL Mean Corpuscular Hemoglobin 31.5 27.0-33.0 pg Mean Corpuscular Hemoglobin Concent 31.8 L 32.0-36.0 g/dL Red Cell Distribution Width 14.5 11.0-15.5 % Platelet Count 384 130-400 K/uL Mean Platelet Volume 9.5 7.5-10.5 fL Immature Granulocyte % (Auto) 0.7 0-1 % Neutrophils (%) (Auto) 70.6 40.0-77.0 % Lymphocytes (%) (Auto) 16.9 L 21.0-51.0 % Monocytes (%) (Auto) 9.5 3.0-13.0 % Eosinophils (%) (Auto) 1.3 0.0-8.0 % Basophils (%) (Auto) 1.0 0.0-5.0 % Neutrophils # (Auto) 4.3 1.8-7.7 K/uL Lymphocytes # (Auto) 1.0 1.0-4.8 K/uL Monocytes # (Auto) 0.6 0.1-1.0 K/uL Eosinophils # (Auto) 0.08 0.00-0.70 K/uL Basophils # (Auto) 0.06 0.00-0.20 K/uL Absolute Immature Granulocyte (auto 0.04 0-1 K/uL Nucleated Red Blood Cells 0.0 0.0-0.19 % Chemistry Labs: Test 11/27/24 03:58 Range/Units Sodium Level 142 136-145 mmol/L Potassium Level 4.2 3.5-5.1 mmol/L Chloride Level 107 101-111 mmol/L Carbon Dioxide Level 26 21-32 mmol/L Blood Urea Nitrogen 9 7-18 mg/dL Creatinine 1.0 0.5-1.3 mg/dL Glomerular Filtration Rate Calc 82 >90 mL/min Random Glucose 130 H 70-105 mg/dL Total Calcium 8.1 L 8.5-10.1 mg/dL Total Bilirubin 0.3 # 0.2-1.0 mg/dL Aspartate Amino Transf (AST/SGOT) 20 10-37 U/L Alanine Aminotransferase (ALT/SGPT) 15 12-78 U/L Alkaline Phosphatase 109 50-136 U/L Total Protein 6.5 6.0-8.3 g/dL Albumin 2.6 L 3.5-5.0 g/dL Coagulation Labs: Test 11/25/24 16:59 Range/Units Activated Partial Thromboplast Time 27.5 26.3-35.5 SEC Diagnostics / Radiology: [Copy/Paste Echos/Imaging Report here] Impression and Plan: Abnormal CT coronary angiogram 11/05/2024 demonstrating a CAD-RADs score of 4B mixed calcified and noncalcified plaque in the left main with 50% stenosis, 80- 90% stenosis in the proximal LAD and 80-90% stenosis in mid left circumflex Critical left main and ostial RCA stenosis by cardiac catheterization 11/06/2024 S/p CABG with initial graft failure converted to Impella supported redo (CHILD- LAD, SVG-OM2, SVG-RCA and SVG-LAD) on 11/07/[address] Meza LVEF of 60-65% by 2D echocardiogram 11/05/2024 Mild ischemic cardiomyopathy with an LVEF of 40-45% by 2D echocardiogram 11/12/2024 Bilateral ICA disease with >70% stenosis by Doppler on 11/04/2024 Transaminitis, improved Hyperlipidemia CAD s/p PTCA to unknown vessel approximately 30 years ago Ex-smoker of 1 PPD with cessation 2 months ago Graves disease S/p CABG with initial graft failure converted to Impella supported redo (CHILD- LAD, SVG-OM2, SVG-RCA and SVG-LAD) on 11/07/[address] Meza -currently denies any chest pain, palpitations, dyspnea or any other anginal equivalent -The patient was noted with severe orthostatic hypotension during PT on 11/23/2024 -current blood pressure average 120s. -Continue Midodrine 15mg TID and Florinef 0.1 mg every 12 hours -continue checking orthostatics every 12 hours -Impella has been successfully removed without complications -patient continues to be severely orthostatic, this morning systolic blood pressure of 160mmhg dropped to 78mmhg upon standing -we have requested a repeat chest x-ray, if it shows to be unremarkable we will administer IV bolus of N/S 250 mL x1 -we will attempt to wean off pressors -avoid the use of beta-blockers due to soft blood pressures -Continue Aspirin 81 mg daily, Plavix 75 mg daily, Atorvastatin 40 mg q.h.s., -Continue management per Cardiothoracic surgery -PT/OT Carotid artery disease Carotid US 11/05: Mild intimal thickening in the bilateral carotid arteries and their branches. Bilateral ICA/CCA ratio is more than 4.0 suggesting more than 70% stenosis. Raised velocities in the bilateral external and internal carotid arteries. -Recommend CT/MR angiogram when stable from surgical standpoint -Continue Aspirin 81 mg daily and Atorvastatin 40 mg q.h.s. Thank you for this consult cardiology will continue to follow along Gurvinder salazar MD ATTESTATION BY PHYSICIAN I have seen and examined the patient, reviewed the above documentation, participated in medical decision making, made necessary modifications, and agree with the treatment plan as documented by my mid-level provider above. MD JUAN Caldwell JAMES R MD Nov 27, 2024 08:23
--- NOTE | 2024-11-27 09:41 | PN ---
[facility] PROGRESS NOTE Date Patient Seen: Nov 27, 2024 Time of Visit: 09:39 Supervising Physician: Dr Sincere Puri Primary Care Physician: Self Referral Outpatient Specialists: [ ] Inpatient Consults: PEG, Dr Jacobo, Dr Wellington , Dr Meza PROBLEM LIST: Cardiogenic shock MvCAD s/p CABG x 3+1 w/ redo on 11/07/24 Postop acute anemia requiring transfusion ELSA Hyperlipidemia Sclerotic nodule on the non coronary cusp on 2D echo Normal ventricular diastolic function with LVEF of 60-65% on 2D echo 11/05/24 Former smoker Graves disease Obesity INTERVAL HISTORY: Patient was seen and examined, all labs and imaging have been reviewed, patient is sitting comfortably in bed, nursing reports no acute events overnight. Patient's vital signs are stable but does require low-dose epi. Continues to be hypotensive with any positional changes Patient reporting no chest pain or shortness of breath. Tolerating his diet Afebrile Plan: Follow CT surgeon recs Weaning epi per protocol Cardiac diet Telemetry PT/OT when able Daily labs and chest x-ray in a.m. INOs Critical care time 44 minutes, patient reminds on pressor support, Time excludes any education or procedural time. Continues to require pressors, patient High risk for decompensation REVIEW OF SYSTEMS: 12 point ROS reviewed with patient. Pertinent positives mentioned above. Otherwise negative. PHYSICAL EXAM: GENERAL: alert, weak, awake oriented x 3 HEENT: EOMI, Sclera non icteric, moist mucosa NECK: Supple, no JVD, trachea midline right IJ. Subclavian Impella 5.5 LUNGS: Rhonchi to right lower lobes. No wheezes HEART: Regular rate and rhythm. Normal S1 and S2, without murmurs mid incision line tenderness. Dressing clean dry and intact. ABD: Abdomen soft, nontender. Bowel sounds present EXT: No clubbing cyanosis or edema. Left femoral sheath. NEURO: Alert and oriented to person, follows commands Vital Signs (last 8hr) Date Time Temp Pulse Resp B/P (MAP) Pulse Ox O2 Delivery O2 Flow Rate FiO2 11/27/24 08:33 97.9 Room Air 11/27/24 07:30 85 18 11/27/24 07:29 85 18 N/A Room Air 21 11/27/24 05:15 77 20 84/46 (59) 98 11/27/24 05:00 79 18 96/58 (71) 98 11/27/24 04:45 79 19 83/48 (60) 98 11/27/24 04:30 78 20 84/46 (59) 98 11/27/24 04:15 88 21 110/56 (74) 96 11/27/24 04:00 95 Room Air* 0 21 11/27/24 04:00 97.9 Nasal Cannula 2.0 21 11/27/24 03:45 78 19 104/56 (72) 98 11/27/24 03:30 79 20 94/47 (63) 97 11/27/24 03:15 80 19 83/57 (66) 96 11/27/24 03:00 78 20 90/48 (62) 95 11/27/24 02:45 83 24 116/53 (74) 90 11/27/24 02:30 73 20 103/55 (71) 95 11/27/24 02:15 77 20 100/55 (70) 99 11/27/24 02:00 79 21 109/82 (91) 92 11/27/24 01:45 79 23 116/58 (77) 96 LABS: Hematology Labs: Test 11/27/24 03:58 Range/Units White Blood Count 6.1 # 4.8-10.8 K/uL Red Blood Count 2.70 L 4.50-6.20 MIL/uL Hemoglobin 8.5 L 14.0-18.0 g/dL Hematocrit 26.7 L 42-54 % Mean Corpuscular Volume 98.9 79-99 fL Mean Corpuscular Hemoglobin 31.5 27.0-33.0 pg Mean Corpuscular Hemoglobin Concent 31.8 L 32.0-36.0 g/dL Red Cell Distribution Width 14.5 11.0-15.5 % Platelet Count 384 130-400 K/uL Mean Platelet Volume 9.5 7.5-10.5 fL Immature Granulocyte % (Auto) 0.7 0-1 % Neutrophils (%) (Auto) 70.6 40.0-77.0 % Lymphocytes (%) (Auto) 16.9 L 21.0-51.0 % Monocytes (%) (Auto) 9.5 3.0-13.0 % Eosinophils (%) (Auto) 1.3 0.0-8.0 % Basophils (%) (Auto) 1.0 0.0-5.0 % Neutrophils # (Auto) 4.3 1.8-7.7 K/uL Lymphocytes # (Auto) 1.0 1.0-4.8 K/uL Monocytes # (Auto) 0.6 0.1-1.0 K/uL Eosinophils # (Auto) 0.08 0.00-0.70 K/uL Basophils # (Auto) 0.06 0.00-0.20 K/uL Absolute Immature Granulocyte (auto 0.04 0-1 K/uL Nucleated Red Blood Cells 0.0 0.0-0.19 % Chemistry Labs: Test 11/27/24 03:58 Range/Units Sodium Level 142 136-145 mmol/L Potassium Level 4.2 3.5-5.1 mmol/L Chloride Level 107 101-111 mmol/L Carbon Dioxide Level 26 21-32 mmol/L Blood Urea Nitrogen 9 7-18 mg/dL Creatinine 1.0 0.5-1.3 mg/dL Glomerular Filtration Rate Calc 82 >90 mL/min Random Glucose 130 H 70-105 mg/dL Total Calcium 8.1 L 8.5-10.1 mg/dL Total Bilirubin 0.3 # 0.2-1.0 mg/dL Aspartate Amino Transf (AST/SGOT) 20 10-37 U/L Alanine Aminotransferase (ALT/SGPT) 15 12-78 U/L Alkaline Phosphatase 109 50-136 U/L Total Protein 6.5 6.0-8.3 g/dL Albumin 2.6 L 3.5-5.0 g/dL Coagulation Labs: Test 11/25/24 16:59 Range/Units Activated Partial Thromboplast Time 27.5 26.3-35.5 SEC DIAGNOSTICS / RADIOLOGY RESULTS: [ ] PLAN NEURO: Minimize central acting medications as possible. Fall Precautions. Well lighted room through the day and minimize interruptions through the night to prevent acute delirium. PULMONARY: Supplemental 02 as needed Titrate Fio2 to keep Spo2 > or = 90% DuoNebs and CPT as needed IS hourly while awake for pulmonary hygiene Out of bed to chair as tolerated VAP Bundle Bipap / fio2 50% RT to titrate FiO2 as needed to maintain O2 above 92% CARDIOVASCULAR: Follow hemodynamics. Titrate vasopressor to keep MAP >65 or systolic blood pressure >95mmHg DIPS: None LINES: Impella 5.5 A line GI & NUTRITION: NPO for now Aspirations precautions Prokinetic agents and laxatives as needed KIDNEYS & ELECTROLYTES: Strict monitoring of intake and output Daily weights Avoid nephrotoxic agents Monitor electrolytes and replace as needed Goal urine output of 30mL/hr or 0.5mL/kg/hr ENDOCRINE: Maintain blood glucose between 100-180 at all times. Insulin sliding scale for blood glucose management INFECTIOUS DISEASE: Trend temperature. Nichols-culture if febrile. Micro: [ ] MRSA negative Antibiotics: [ ] HEMATOLOGY & COAGULATION: Monitor H&H. Keep Hgb > 7 Transfuse 1 unit of PRBC for Hgb < 7 Transfuse 1 pack of platelets of platelets < 20, 000 Watch for any signs and symptoms of bleeding SKIN: Pressure ulcer prevention per facility protocol Code Status: Full Resuscitation Disposition: [ TBSNOW PIMENTEL PAC Nov 27, 2024 09:40
[2024-11-27] MEDS: FLUDROCORTISONE ACETATE 0.1 MG TABLET PO SCH (10:23)
[2024-11-27] MEDS: 0.9% NACL 250ML 250 ML IV SCH (10:26)
--- NOTE | 2024-11-27 11:30 | NUR ---
[facility] ICU Skin Assessment: Patient assessed by wound healing team. Patient with no wounds or skin breakdown noted. Assessment and recommendations provided to primary nurse. Education provided. Addendum: 11/27/24 at 1135 by TAD KNOTT RN RN/ Amended: Links added.
--- NOTE | 2024-11-27 13:14 | PN ---
[facility] PROGRESS NOTE Date of Service: Nov 27, 2024 Time of Service: 13:14 SUBJECTIVE: Mr. Valadez a 68-year-old male that was seen and examined today on 11/03/2024. Patient reports that he came to the emergency department with a chief complaint of chest pain. Onset was two or three years ago. He had similar repeated episodes months back which resolved on its own. Today's episode began at 11:00 a.m. Location is midsternal. Duration is on and off. Character is described as "neck someone is pushing a knuckle into the center of my chest. The chest pain did not radiate to shoulder, neck or jaw. "There was no alleviating factors. There was no aggravating factors. Patient reports that symptoms seemingly resolve on their own. He denies nausea, vomiting, fever and any other associated symptoms. Patient denies any associated shortness of breath. Patient has a past medical history of hyperlipidemia and Graves disease. He has been taking atorvastatin and Synthroid as his home medications. Today in the emergency department WBC 5.8, hemoglobin 12.9 platelets 197. His chemistries were within normal limits sodium 140, potassium 4.2, blood urea nitrogen 15 and creatinine 1.0. His electrocardiogram showed normal sinus rhythm. Patient will be admitted for further evaluation and related recommendations in Med-Surg. 11/04/24 Patient was evaluated at the bedside in ED-09. He reports that he is having chest pain that comes and goes. The patient reports having 2 episodes of chest pain in the last hour. He denies associated symptoms such as shortness of breath, palpitation, diaphoresis, dizziness, nausea or syncope. He does however complain of muscle pain in his lower limbs described as a dull aching discomfort that begins in the hip region that is worsened with movement. The patient complains of tingling and numbness in his feet bilaterally. No fever, chills or recent infection reported. Appetite and oral intake are normal. No other acute complaints at this time. On physical exam, a systolic murmur was auscultated over the aortic area. Bilateral carotid bruits are present. Lower extremities are cool to the touch with diminished pedal pulses. Patient reports bilateral leg muscle pain with exertion (suggestive of claudication), and chronic numbness and tingling in the feet. Patient reports recently quitting smoking tobacco for 2 months. He had a 1 pack a day smoking history since 1968. The [facility] and denies following with a cardiac cath tech. The patient says his chest pain has been ongoing for the past 3 years, and that it gets worse with exertion and at rest. 11/05/24 Patient was evaluated at the bedside room 231. He was hemodynamically stable. Hi symptoms has improved significantly. He doesn't complain of chest pain, shortness of breath and any other associated symptoms. Echocardiogram was done which revealed aortic valve: trileaflet, mildly sclerotic, and opens well. Carotid artery ultrasound showed Bilateral ICA/CCA ratio more than 4.0 suggesting more than 70% stenosis. 11/06/24 Patient was evaluated at the bedside room 231. He was hemodynamically stable. Hi symptoms has improved significantly. He doesn't complain of chest pain, shortness of breath and any other associated symptoms. In coronary CT angiography there is mixed calcified and noncalcified plaque in the proximal LAD with 80-90% stenosis. Left circumflex coronary artery: Normal caliber, nondominant and gives rise to a large OM branch. There is mixed calcified and noncalcified plaque in the mid LCx with 80-90% stenosis. CAD-RAD of 4B. Left heart catheterization with selective right and left coronary angiography was performed which showed critical left main disease. 11/07/24 Patient was evaluated at the bedside room 231. He was hemodynamically stable. He doesn't complain of chest pain, shortness of breath and any other associated symptoms. He complaints of headache 8/10 of intensity after the administration of Nitroglycerin. Cardiac catheterization demonstrated a very tight left main lesion and the patient is referred for surgical revascularization. As per Dr Meza: Surgery is planned for today. 11/08/24: Patient was seen and evaluated this morning at bedside. The patient is POD 1 s/p CABG. Patient is currently being managed in the ICU. The patients most recent ABG shows a pH of 7.43, ABG PCO2 47, ABG PO2 77.9, ABG HCO3 30.8. Recent ABG shows improving lactic acid, from 8 to 3.85. The patients chemistry reveals a sodium level 157, potassium level 3.4, creatinine 1.9, BUN 19, GFR 38, phosphorous 2.2. Liver enzymes are trending up, with an ALT level at 325 and an AST level at 869. The patients home medication of Synthroid has been restarted. Chest x-ray ordered today, results pending. We will continue to follow recommendations from critical care team, and cardiology. 11/09/2024: Patient is seen and evaluated in the room 213. The patient is POD 2 s/p CABG. Patient is currently being managed in the ICU. He is complaining of pain. His vitals are in the normal range. His Hb is 11.1, WBC is 19.1, Plt is 115, sodium is 154, chloride is 113, glucose is 122. His recent ABG shows that pH is 7.472, pO2 is 80.1, bicarb is 30.4, Hb is 11.4, lactic acid is 1.63. His chest X-ray on 11/08 showed improved aeration within the left perihilar and left basilar regions. As per nurse he is having intervention confusion, stopped lidocaine and they also weaning on pressors norepinephrine and epinephrine. The drain output from left anterior chest is 20ml, mediastinal lateral is 160ml, mediastinal mediastinal is 300ml, right anterior chest is 160 ml. We will continue to follow recommendations from critical care team, and cardiology. 11/10/2024: Patient was seen and evaluated this morning at bedside. The patient is POD 3 s/p CABG. Patient is currently being managed in the ICU. He is not having any symptoms today. His vitals are in the normal range. His labs are normal except for Hb is 10.1, WBC is 14.7, plt is 85, sodium is 147, AST is 156, ALT is 95, APTT is 25.5. ABG shows that his pH is 7.4, lactate is 1.22, bicarb is 31. The drain output from left anterior chest is 170 ml, mediastinal mediastinal is 130ml. We will continue to follow recommendations from critical care team, and cardiology. 11/11/2024: Patient was seen and evaluated this morning at bedside. The patient is POD 4 s/p CABG. He is not having any symptoms today. His vitals are in the normal range. His labs are normal except for hemoglobin is 9.7, WBC is 11.7, platelet is 106, glucose is 107, AST is 87, ALT is 62. ABG shows pH is 7.468, lactic acid is 1.03. We will continue to follow recommendations from critical care team, and cardiology. 11/12/2024: Patient was seen and evaluated in the room 218. The patient is POD 5 s/p CABG. He is having dizziness and ache in the left shoulder. His vitals are in the normal range. His labs are normal except for hemoglobin 9.6, platelets is 94, AST 75. ABG shows pH 7.487, lactic acid 1.2. Currently he is not on any pressors. Cardiovascular surgery tried to wean Impella. They decreased impella setting to P4 but his blood pressure is low so they went back to P5. Cardiovascular surgery also increased his midodrine dose to 15mg. His chest X- ray showed mild pulmonary vascular congestion. He had a bowel movement and good urine output. He is using incentive spirometry well. We will continue to follow recommendations from the critical Care team and Cardiology. 11/13/2024: Patient was seen and evaluated in the room 218. The patient is POD 6 s/p CABG. He is having dizziness and generalized ache. His vitals are in the normal range. His labs are normal except for Hb is 8.9, calcium is 7.4, glucose is 140. His chest x-ray showed that mild borderline cardiomegaly with median sternotomy with cardiac and aspiration procedure, support lines in satisfactory position, no evidence of airspace consolidation or pulmonary venous congestion. He is restarted on norepinephrine and epinephrine drip and impella at P5 as he is hypotensive and has bradycardia. The nurse told me that she will consult anesthesia for changing the arterial line as his line is not working. He is on heparin drip and off of lovenox. The drain output from left anterior chest is 260 ml, mediastinal mediastinal is 60ml. Hematology was consulted as he is in a hypercoagulable state. 11/14/2024: Patient was seen and evaluated in the room 218. The patient is POD 7 s/p CABG. His vital signs are in the normal range except for blood pressure is 88/64. His labs are normal except for hemoglobin is 8.8, APTT is 62.4, glucose is 133, calcium is 7.5, AST is 61. Chest X-ray showed mild cardiomegaly with median sternotomy with cardiac revascularization procedure, support lines are in satisfactory position. His impella is increased to P7 as he is hypotensive and bradycardic. He is on epinephrine. The drain output from left anterior chest is 80ml and from mediastinal mediastinal is 20ml. Hematology saw the patient and they recommended to start folic acid, vitamin B12, ordered SPEP, UPEP, free light chains. They think that the patient might be having hemolytic anemia which could be the reason for his graft clotting after surgery. 11/15/2024: He was evaluated at the bedside this morning. The patient is POD 8 s/p CABG. He is on Impella support with blood pressure 89/64 with map 72. Remarkable lab is for hemoglobin 9.2. Chest x-ray revealed mildly improved right lower lobe airspace opacity with stable cardiac support device and median sternotomy. His MPOA is encouraged to P8 and weaned off the pressors. Hematology recommending Tatiana test to rule out autoimmune hemolytic anemia. Hematology, CT surgery, critical care and cardiology on the board. Rest of the plan as discussed below. 11/16/2024: He was evaluated at the bedside this morning. The patient is POD 9 s/p CABG. Impella support has been weaned to P5 today. As per Dr. Khan, epi will be turned on at 0.03 mcg/kg/min and Impella performance level will be decreased to p4 tomorrow morning. Today, patient's BP is at 102/62, 79bpm and he is on 3L O2 nasal cannula. He is pending direct tatiana test, SPEP, UPEP and Free Light Chain assay as per hematology. His Hb from today is 8.9. Chest Tube drainage is at 201 ml. Hematology, CT surgery, critical care and cardiology on the board. 11/17/2024: He was evaluated at the bedside this morning. The patient is POD 10 s/p CABG. Impella support has been weaned to P4 today. Patient is currently on epinephrine 0.03 mcg/kg/minute as per Dr. Khan. Patient is receiving Lasix for diuresis and her urine output in the past 24 hours has been for 4050 mL. Mediastinal mediastinal chest tube drainage is 40 mL. Left anterior chest tube drainage is 104 mL. Hematology, CT surgery, critical care and cardiology on the board. 11/18/2024: He was evaluated at the bedside this morning. The patient is POD 11 s/p CABG. Impella support continues on P4 today. Plan is to wean off further tomorrow. Patient is currently on epinephrine 0.05 mcg/kg per minute. His blood pressure is running low, 88/48. Patient is receiving Lasix for diuresis and his urine output in the past 24 hours has been for 3400 mL. Mediastinal mediastinal chest tube drainage is 60 mL. Left anterior chest tube drainage is 140 mL. Hematology, CT surgery, critical care and cardiology on the board. As per Hematology recommendations, IV iron sucrose was ordered since iron panel showed low iron, and low percentage saturation. 11/19/2024: Patient was seen and evaluated at the bedside this morning. The patient is POD 12 s/p CABG. Impella support continues on P4 today and there is a plan to wean it off further, awaiting cardiothoracic surgery recommendations. Patient is currently maintained on epinephrine 0.03 mcg/kg per minute. His blood pressure is still running low, 92/44. He passed stool twice yesterday, after 7 days of constipation. Hematology, CT surgery, critical care and cardiology on the board. 11/20/2024: Patient was seen and evaluated at bedside this morning. He continues on P4 support. He is vitally stable with BP 101/56. WBCs are trending down from 12.4 K to 11.1 K. His TSH was elevated, 7.13. Free T3 test showed 1.64. We will continue to follow recommendations from Cardiothoracic surgery, Cardiology, and critical Care teams. 11/21/24: Patient was seen and evaluated at bedside this morning in room 218. The patient is POD 14 s/p CABG He continues on P4 support planning to be weaned off to lower settings if he continues to do better as per cardiothoracic surgery recommendations. Blood pressure on arterial line is 97/52 (67). WBCs are trending down from 11.1 to 10.0. His TSH was elevated, 7.13. Free T3 test showed 1.64. We will continue to follow recommendations from Cardiothoracic surgery, Cardiology, and critical Care teams. 11/22/24: Patient was seen and evaluated at bedside this morning in room 218. The patient is POD 15 s/p CABG. He continues on P4 support today as weaning off has been unsuccessful so far. He is currently on 0.08 epi support. He is undergoing diuresis as well. He reports no bowel movement for the past several days. We will continue to follow recommendations from Cardiothoracic surgery, Cardiology, and critical Care teams. 11/23/2024: Patient was seen and evaluated at the bedside this morning in room 218. This is postop day 16 status post CABG. He had no acute events overnight and was sitting comfortably in his chair during my visit. Patient continues on Impella P4 for support today. His vasopressor support is reducing today at 0.06 mcg. Patient denies chest pain, shortness of breath however has mild cough. Plan is to slowly taper off epinephrine and Impella. We will continue to follow recommendations from Cardiothoracic surgery, Cardiology and critical Care teams. 11/24/24: Patient was evaluated at the bedside in room 218. This is postop day 17 status post CABG. He had no acute events overnight and was sitting comfortably in his chair. Patient is weaned off epinephrine completely. Continues on Impella P3 support. Patient denies chest pain, shortness of breath, or anginal equivalents. All the chest tubes are out. We will continue to follow recommendations from Cardiothoracic surgery, Cardiology, critical Care team. 11/25/2024: Patient was evaluated at bedside in room 218. This is postop day 18 status post CABG. No acute events overnight and was sleeping comfortably in his chair and had good spirits. Patient has been off vasopressors for over 24 hours now and his blood pressures have been holding in 100s. He continues on Impella P3 support and the plan is for removal later today. Patient denied chest pain, shortness of breath or angina equivalents. We will continue to follow recommendations from Cardiothoracic surgery, Cardiology, and critical care team. 11/26/2024: Patient was evaluated at the bedside in room 218. His Impella was removed yesterday afternoon and has been resumed on Epinephrine at 0.06 mcg. Patient's systolic blood pressures have been soft and were in the range of 80- 90s. He denied chest pain, shortness of breath, dizziness, abdominal pain and headaches. Reported mild throat soreness and cough. We will continue to monitor for his recovery and follow cardiology, cardiothoracic, and critical care recommendations. 11/27/2024: Patient was evaluated at the bedside in room 218. Been weaned off Impella since 2 days and his maintaining blood pressure in the range of 80s to 90s. He continues to remain on epinephrine at 0.06 mcg and fludrocortisone was increased to 0.3 mg twice daily. Orthostatic vitals revealed severe drop in systolic blood pressure from 160-78 mm hg SBP. A repeat chest x-ray was ordered and if it will be unremarkable IV bolus of 250 mL of normal saline will be administered once to assess his orthostasis. We will continue management per Cardiothoracic surgery. REVIEW OF SYSTEMS CONSTITUTIONAL: Pain in his left shoulder, improved No fever, chills, or night sweats. NEUROLOGICAL: No headache no sensory and motor deficit. CARDIOVASCULAR: Dizziness, improved Denies any exertional angina, dyspnea on exertion, palpitations. PULMONARY: Denies any shortness of breath, cough, phlegm/sputum, hemoptysis, pleuritic chest pain. GASTROINTESTINAL: Constipation. Denies nausea, vomiting. Denies pain, tenderness around the abdomen. GENITOURINARY: Denies frequency, urgency, nocturia, hematuria or incontinence. PHYSICAL EXAM GENERAL APPEARANCE: The patient is alert, awake and oriented and bedbound. NEUROLOGICAL: No sensory and motor deficits. CHEST: left anterior chest , mediastinal mediastinal drains are removed. Dressing is clean Normal chest expansion. LUNGS: Normal vesicular breath sound. Absence of any rales, rhonchi or any wheezing. CARDIOVASCULAR: Systolic murmur heard over aortic area. Bilateral carotid bruits heard. No JVD. ABDOMEN: Soft nontender, and nondistended. There is no rebound, voluntary guar ding, or rigidity. No abdominal bruit heard. GENITOURINARY: No suprapubic tenderness. No costovertebral angle tenderness. EXTREMITIES: Limbs are non-edematous. Vital Signs (last 8hr) Date Time Temp Pulse Resp B/P (MAP) Pulse Ox O2 Delivery O2 Flow Rate FiO2 11/27/24 12:02 98.2 0.0 11/27/24 11:45 99 Room Air* 0 11/27/24 11:15 95 34 116/74 (88) 100 11/27/24 11:05 88 18 11/27/24 11:04 88 18 N/A Room Air 11/27/24 11:00 89 54 117/57 (77) 96 21 11/27/24 10:45 87 25 116/60 (78) 96 11/27/24 10:30 84 16 90/47 (61) 96 11/27/24 10:10 91 16 93/40 (57) 96 21 11/27/24 09:45 82 16 89/50 (63) 95 11/27/24 09:30 82 18 96/53 (67) 94 11/27/24 09:15 87 21 85/55 (65) 97 21 11/27/24 09:00 89 21 120/56 (77) 98 21 11/27/24 08:33 97.9 Room Air 11/27/24 08:30 92 62 88/52 (64) 96 21 11/27/24 08:10 94 26 94/59 (71) 98 21 11/27/24 08:00 98 25 88/40 (56) 97 21 11/27/24 07:32 98 20 90/41 (57) 97 21 11/27/24 07:30 85 18 11/27/24 07:30 98 Room Air* 0 21 11/27/24 07:29 85 18 N/A Room Air 21 11/27/24 07:10 82 13 104/71 (82) 97 21 11/27/24 07:00 83 14 102/72 (82) 98 21 11/27/24 05:15 77 20 84/46 (59) 98 LABS: Laboratory: Test 11/27/24 03:58 11/25/24 16:59 Range/Units White Blood Count 6.1 # 4.8-10.8 K/uL Red Blood Count 2.70 L 4.50-6.20 MIL/uL Hemoglobin 8.5 L 14.0-18.0 g/dL Hematocrit 26.7 L 42-54 % Mean Corpuscular Volume 98.9 79-99 fL Mean Corpuscular Hemoglobin 31.5 27.0-33.0 pg Mean Corpuscular Hemoglobin Concent 31.8 L 32.0-36.0 g/dL Red Cell Distribution Width 14.5 11.0-15.5 % Platelet Count 384 130-400 K/uL Mean Platelet Volume 9.5 7.5-10.5 fL Immature Granulocyte % (Auto) 0.7 0-1 % Neutrophils (%) (Auto) 70.6 40.0-77.0 % Lymphocytes (%) (Auto) 16.9 L 21.0-51.0 % Monocytes (%) (Auto) 9.5 3.0-13.0 % Eosinophils (%) (Auto) 1.3 0.0-8.0 % Basophils (%) (Auto) 1.0 0.0-5.0 % Neutrophils # (Auto) 4.3 1.8-7.7 K/uL Lymphocytes # (Auto) 1.0 1.0-4.8 K/uL Monocytes # (Auto) 0.6 0.1-1.0 K/uL Eosinophils # (Auto) 0.08 0.00-0.70 K/uL Basophils # (Auto) 0.06 0.00-0.20 K/uL Absolute Immature Granulocyte (auto 0.04 0-1 K/uL Nucleated Red Blood Cells 0.0 0.0-0.19 % Sodium Level 142 136-145 mmol/L Potassium Level 4.2 3.5-5.1 mmol/L Chloride Level 107 101-111 mmol/L Carbon Dioxide Level 26 21-32 mmol/L Blood Urea Nitrogen 9 7-18 mg/dL Creatinine 1.0 0.5-1.3 mg/dL Glomerular Filtration Rate Calc 82 >90 mL/min Random Glucose 130 H 70-105 mg/dL Total Calcium 8.1 L 8.5-10.1 mg/dL Total Bilirubin 0.3 # 0.2-1.0 mg/dL Aspartate Amino Transf (AST/SGOT) 20 10-37 U/L Alanine Aminotransferase (ALT/SGPT) 15 12-78 U/L Alkaline Phosphatase 109 50-136 U/L Total Protein 6.5 6.0-8.3 g/dL Albumin 2.6 L 3.5-5.0 g/dL Activated Partial Thromboplast Time 27.5 26.3-35.5 SEC Current Medications Medications (Trade) Dose Ordered Sig/Brittany Route PRN Reason Start Time Stop Time Status Last Admin Dose Admin Acetaminophen (TYLenol 325MG TAB) 650 mg Q4H PRN PO Temp >38.3C(AFTER EXTUBATION) 11/07/24 14:00 12/07/24 13:59 Acetaminophen (TYLenol 325MG TAB) 650 mg Q6H PRN PO TEMPERATURE GREATER THAN 101.5 11/03/24 21:00 11/07/24 14:00 DC 11/06/24 23:00 650 MG Acetaminophen (TYLenol 325MG TAB) 650 mg Q6H PRN PO MILD PAIN (1-3) 11/07/24 14:00 12/07/24 13:59 11/16/24 11:37 650 MG Acetaminophen (TYLenol 650MG SUPPOSITORY) 650 mg Q4H PRN RC Temp >38.3C WHILE INTUBATED 11/07/24 14:00 12/07/24 13:59 Acetaminophen (acetaMINOPHEN) 1,000 mg Q6H IVPB 11/09/24 09:00 11/12/24 08:59 DC 11/12/24 02:11 1,000 MG Acetaminophen (acetaMINOPHEN) 1,000 mg Q6H6 IV 11/07/24 18:00 11/08/24 17:59 DC 11/08/24 18:08 1,000 MG Albumin Human 250 ml @ 0 mls/hr AD IV 11/23/24 09:00 11/28/24 08:59 11/23/24 08:55 250 MLS/HR Albumin Human 250 ml @ 0 mls/hr AD PRN IV IF HEMODYNAMICALLY UNSTABLE 11/07/24 14:00 11/08/24 09:57 DC 11/08/24 09:57 125 MLS/HR Albumin Human 250 ml @ 0 mls/hr AD STAT IV 11/15/24 13:09 11/15/24 13:12 DC 11/15/24 13:28 250 MLS/HR Aminocaproic Acid 72046 mg/Sodium Chloride 310 ml @ 25 mls/hr AD IV 11/07/24 14:00 11/08/24 02:23 DC Aminocaproic Acid 44050 mg/Sodium Chloride 480 ml @ 0 mls/hr AD PRN IV BLEEDING CONTROL 11/07/24 11:00 11/07/24 14:03 DC Aspirin (Aspirin 81mg Ec Tab) 81 mg DAILY PO 11/04/24 09:00 12/04/24 08:59 11/27/24 09:03 81 MG Atorvastatin Calcium (LIPItor 40MG) 40 mg HS PO 11/03/24 21:00 11/03/24 20:40 DC Atorvastatin Calcium (LIPItor 40MG) 40 mg HS PO 11/03/24 21:00 11/09/24 07:45 DC 11/07/24 20:15 40 MG Atorvastatin Calcium (LIPItor 40MG) 40 mg HS PO 11/10/24 21:00 12/10/24 20:59 11/26/24 21:37 40 MG Calcium Gluconate (Calcium Gluc 1gm Vial) 1 gm AD PRN IV HYPOCALCEMIA 11/08/24 09:00 11/09/24 07:45 DC 11/08/24 16:36 1 GM Calcium Gluconate 1 gm/Sodium Chloride 60 ml @ 200 mls/hr AD PRN IV HYPOCALCEMIA 11/07/24 14:00 12/07/24 13:59 11/21/24 06:13 200 MLS/HR Cefazolin Sodium (Ancef) 2 gm ONCALL IVPB 11/06/24 22:00 11/07/24 14:00 DC Cefazolin Sodium (Ancef) 2 gm Q8H IVPB 11/07/24 19:00 11/08/24 11:01 DC 11/08/24 11:15 2 GM Clopidogrel Bisulfate (plaVIX 75MG) 75 mg DAILY PO 11/08/24 14:00 12/08/24 13:59 11/27/24 09:04 75 MG Dexmedetomidine/ Sodium Chloride (PRECEdex 400MCG/ 100ML-NS) 400 mcg PROTOCOL IV 11/07/24 14:00 12/07/24 13:59 Dextrose (D50w) 50 ml AD PRN IV HYPOGLYCEMIA PROTOCOL 11/07/24 14:00 12/07/24 13:59 Dextrose/Sodium Bicarbonate 1,025 ml @ 10 mls/hr Q24H IV 11/07/24 19:30 12/07/24 19:29 11/27/24 09:05 10 MLS/HR Docusate Sodium (COLace 100MG CAP) 100 mg BID PO 11/07/24 21:00 11/08/24 10:11 DC 11/07/24 20:15 100 MG Docusate Sodium (COLace 100MG CAP) 100 mg BID PO 11/10/24 09:00 12/10/24 08:59 11/26/24 21:37 100 MG Docusate Sodium (COLace LIQUID 100MG/10ML) 100 mg BID NG 11/08/24 10:30 11/09/24 21:53 DC 11/09/24 20:47 100 MG Enoxaparin Sodium (Lovenox) 30 mg DAILY SQ 11/10/24 09:00 11/13/24 08:38 DC 11/12/24 09:03 30 MG Enoxaparin Sodium (Lovenox) 40 mg DAILY SQ 11/04/24 09:00 11/07/24 13:38 DC 11/05/24 09:06 40 MG Epinephrine HCl 10 mg/Sodium Chloride 250 ml @ 13.948 mls/ hr AD PRN IV POST-OP CARDIOVASCULAR ORDERS 11/07/24 14:00 11/12/24 13:59 DC 11/09/24 19:48 7 MLS/HR Epinephrine HCl 10 mg/Sodium Chloride 250 ml @ 0 mls/hr AD PRN IV TITRATE 11/07/24 11:00 11/07/24 14:02 DC Epinephrine HCl 10 mg/Sodium Chloride 250 ml @ 0 mls/hr PROTOCOL IV 11/12/24 23:30 12/12/24 23:29 11/26/24 09:46 8.3 MLS/HR Famotidine (Pepcid 20mg Vial) 20 mg BID IV 11/07/24 21:00 11/08/24 08:59 DC 11/08/24 08:11 20 MG Famotidine (Pepcid 20mg Tab) 20 mg DAILY PO 11/04/24 09:00 11/07/24 13:38 DC 11/05/24 09:06 20 MG Fludrocortisone Acetate (Fludrocortisone Acetate) 0.1 mg BID PO 11/23/24 15:30 11/26/24 20:29 DC 11/26/24 09:51 0.1 MG Fludrocortisone Acetate (Fludrocortisone Acetate) 0.3 mg BID PO 11/26/24 21:00 11/27/24 10:04 DC Fludrocortisone Acetate (Fludrocortisone Acetate) 0.3 mg DAILY PO 11/27/24 10:30 12/27/24 10:29 11/27/24 10:23 0.3 MG Fludrocortisone Acetate (Fludrocortisone Acetate) 0.3 mg ONCE PO 11/26/24 21:00 11/26/24 23:59 DC 11/26/24 21:36 0.3 MG Folic Acid (FOLic ACID 1 MG TABLET) 1 mg DAILY PO 11/14/24 09:00 12/14/24 08:59 11/27/24 09:02 1 MG Furosemide (LASix 20MG TAB) 20 mg Q12H PO 11/09/24 09:00 11/24/24 15:51 DC 11/22/24 19:40 20 MG Furosemide (LASix 20MG TAB) 20 mg Q12H PO 11/25/24 09:00 12/11/24 23:00 11/27/24 00:44 20 MG Furosemide (LASix 20MG VIAL) 20 mg Q12H IV 11/08/24 09:00 11/09/24 08:59 DC 11/08/24 20:23 20 MG Glucagon (Glucagon 1mg Kit) 1 mg AD PRN IM HYPOGLYCEMIA PROTOCOL 11/07/24 14:00 12/07/24 13:59 Guaifenesin/ Dextromethorphan (RobiTUSSin DM 200/20MG 10ML) 15 ml Q6H PRN PO COUGH 11/19/24 15:00 12/19/24 14:59 11/24/24 15:30 15 ML Heparin Sodium (Porcine) (HEParin 5,000 UNIT VIAL) *calculation based on ACTUAL B... AD PRN IV HEPARIN PROTOCOL 11/13/24 09:30 11/25/24 18:40 DC Heparin Sodium/ Dextrose 250 ml @ 0 mls/hr Q6H IV 11/13/24 09:30 11/25/24 18:40 DC 11/24/24 15:31 10.8 MLS/HR Hydralazine HCl (APRESOLine 20MG INJ) 10 mg Q6H PRN IV For:SBP above 160;DBP above 90 11/03/24 21:00 11/07/24 13:38 DC Insulin Human Regular 100 unit/ Sodium Chloride 100 ml @ 0 mls/hr AD IV 11/07/24 14:00 11/09/24 13:59 DC 11/08/24 12:30 4 MLS/HR Ipratropium [place] (AtrovENT UD) 0.5 MG [id number] IH 11/08/24 12:00 12/08/24 11:59 11/27/24 11:04 0.5 MG Lactulose (Constulose 20gm/ 30ml Udcup) 20 gm BID PRN PO CONSTIPATION 11/03/24 21:00 11/07/24 14:00 DC Lactulose (Constulose 20gm/ 30ml Udcup) 20 gm BID PRN PO CONSTIPATION 11/07/24 14:00 12/07/24 13:59 11/18/24 06:21 20 GM Levothyroxine Sodium (SYNTHroid 125MCG TAB) 125 mcg SYN PO 11/09/24 06:30 12/09/24 06:29 11/27/24 06:11 125 MCG Lidocaine HCl/ Dextrose 250 ml @ 0 mls/hr PROTOCOL PRN IV OTHER [SEE ORDER COMMENTS] 11/08/24 21:00 11/09/24 08:37 DC 11/08/24 21:15 7.5 MLS/HR Magnesium Hydroxide (Milk Of Magnesium 30ml) 30 ml DAILY PRN PO CONSTIPATION 11/07/24 14:00 12/07/24 13:59 Magnesium Sulfate 50 ml @ 12.5 mls/hr AD PRN IV MAG LEVEL LESS THAN 2.0 11/07/24 14:00 12/07/24 13:59 11/09/24 05:59 12.5 MLS/HR Metoprolol Tartrate (loprESSOR) 12.5 mg BID PO 11/09/24 09:00 11/11/24 09:39 DC Metoprolol Tartrate (loprESSOR) 50 mg BID PO 11/04/24 21:00 11/07/24 13:38 DC 11/06/24 20:38 50 MG Midodrine (PROAMatine 5 MG TABLET) 10 mg TID PO 11/09/24 21:00 11/11/24 06:58 DC 11/10/24 20:07 10 MG Midodrine (PROAMatine 5 MG TABLET) 15 mg TID PO 11/11/24 09:00 12/11/24 08:59 11/27/24 09:03 15 MG Montelukast Sodium (SinguLAIR) 10 mg HS PO 11/08/24 21:00 12/08/24 20:59 11/26/24 21:37 10 MG Morphine Sulfate (morPHINE 2MG SYG) 0.5 mg Q2H PRN IV MODERATE PAIN (4-6) 11/07/24 14:00 11/08/24 13:59 DC Morphine Sulfate (morPHINE 2MG SYG) 1 mg Q2H PRN IV SEVERE PAIN (7-10) 11/07/24 14:00 11/08/24 13:59 DC Morphine Sulfate (morPHINE 4MG SYG) 2 mg Q4H PRN IVP SEVERE PAIN (7-10) 11/03/24 21:00 11/07/24 13:38 DC 11/04/24 15:49 2 MG Nitroglycerin (Nitroglycerin 1gm Oint) 0.5 inch Q8H TD 11/03/24 21:00 11/07/24 13:38 DC 11/07/24 05:46 0.5 INCH Nitroglycerin/ Dextrose 0 ml @ 0 mls/hr AD IV 11/07/24 14:00 11/10/24 13:59 DC Norepinephrine Bitartrate 250 ml @ 0 mls/hr AD PRN IV TITRATE 11/07/24 11:00 11/07/24 14:02 DC Norepinephrine Bitartrate 250 ml @ 0 mls/hr AD PRN IV POST-OP CARDIOVASCULAR ORDERS 11/07/24 14:00 11/12/24 13:59 DC 11/09/24 17:09 5.6 MLS/HR Norepinephrine Bitartrate 250 ml @ 0 mls/hr PROTOCOL IV 11/12/24 18:30 12/12/24 18:29 11/13/24 08:42 2 MLS/HR Ondansetron HCl (zoFRAN 4MG INJ) 4 mg Q6H PRN IV NAUSEA/VOMITING 11/03/24 21:00 11/07/24 14:00 DC Ondansetron HCl (zoFRAN 4MG INJ) 4 mg Q6H PRN IV NAUSEA/VOMITING 11/07/24 14:00 12/07/24 13:59 11/09/24 21:50 4 MG Pantoprazole Sodium (PROTonix 40MG INJ) 40 mg BID IVP 11/08/24 09:00 12/08/24 08:59 11/27/24 09:02 40 MG Pharmacy Profile Note (Pharmacy Communication) 1 each ONCE MISC 11/13/24 09:00 11/13/24 08:57 DC Piperacillin Sod/ Tazobactam Sod (Zosyn 3.375gm+NS 50ml) 3.375 gm Q8H IV 11/09/24 10:00 11/09/24 09:38 DC Piperacillin Sod/ Tazobactam Sod (Zosyn 3.375gm+NS 50ml) 3.375 gm Q8H IV 11/09/24 10:00 11/19/24 09:59 DC 11/19/24 02:20 3.375 GM Polyethylene Glycol (MIRalax 3350 17 GM POWD.PACK) 17 gm DAILY PO 11/09/24 09:00 12/09/24 08:59 11/23/24 08:48 17 GM Potassium Phosphate 250 ml @ 42 mls/hr AD PRN IV LOW PHOS LEVEL 11/07/24 14:00 12/07/24 13:59 11/08/24 07:22 42 MLS/HR Potassium Chloride 100 ml @ 100 mls/hr AD PRN IV HYPOKALEMIA 11/07/24 14:00 12/07/24 13:59 11/24/24 05:53 100 MLS/HR Potassium Chloride (K-Dur/Klor-Con 20meq) 20 meq AD PRN PO POTASSIUM PROTOCOL 11/14/24 00:30 12/14/24 00:29 11/26/24 18:30 20 MEQ Potassium Chloride (KCl 10% Elixir 20meq/15ml) 20 meq AD PRN PO POTASSIUM PROTOCOL 11/14/24 00:30 12/14/24 00:29 11/21/24 08:34 20 MEQ Propofol 100 ml @ 0 mls/hr AD PRN IV SEDATION 11/07/24 14:00 11/11/24 13:59 DC Sodium Bicarbonate (Sodium Bicarb 50meq 50ml Vial) 50 meq AD PRN IV OTHER[SEE DOSING INSTRUCTIONS] 11/07/24 14:00 11/10/24 13:59 DC 11/08/24 00:54 50 MEQ Sodium Chloride 250 ml @ 0 mls/hr Q0M IV 11/27/24 10:30 12/27/24 10:29 11/27/24 10:26 250 MLS/HR Sodium Chloride 250 ml @ 0 mls/hr Q0M IV 11/18/24 10:00 11/27/24 10:11 DC 11/18/24 10:13 250 MLS/HR Sodium Chloride 500 ml @ 0 mls/hr AD IV 11/07/24 14:00 12/07/24 13:59 11/10/24 00:41 3 MLS/HR Sodium Chloride 1,000 ml @ 10 mls/hr ONCE IV 11/07/24 14:00 11/08/24 13:59 DC 11/07/24 20:11 10 MLS/HR Sodium Chloride 1,000 ml @ 100 mls/hr Q10H IV 11/06/24 12:30 11/06/24 15:29 DC Sodium Chloride (NS Flush 10ml) 10 ml Q8H PRN IVP IV LINE FLUSH 11/07/24 14:00 12/07/24 13:59 Sucralfate (Carafate) 1 gm TID PO 11/08/24 21:00 12/08/24 20:59 11/26/24 21:37 1 GM Tramadol HCl (UltRAM) 25 mg Q6H PRN PO MODERATE PAIN (4-6) 11/07/24 14:00 11/09/24 08:37 DC Tramadol HCl (UltRAM) 50 mg Q6H PRN PO SEVERE PAIN (7-10) 11/07/24 14:00 11/09/24 08:37 DC 11/08/24 23:30 50 MG Vitamin B Complex (Vitamin B-12) 1,000 mcg DAILY IM 11/07/24 09:00 11/13/24 08:59 DC 11/12/24 09:03 1,000 MCG Vitamin B Complex (Vitamin B-12) 1,000 mcg DAILY PO 11/14/24 09:00 12/14/24 08:59 11/27/24 09:02 1,000 MCG DIAGNOSTICS / RADIOLOGY: [ ] ASSESSMENT: Coronary artery disease, POA, s/p CABG 3v and redo sternotomy with redo of graft failure now s/p CABG with 4v Postop acute anemia requiring transfusion Acute kidney injury Hyperlipidemia, POA Hypothyroidism, POA Peripheral artery disease, suspected Carotid artery stenosis PLAN: Coronary artery disease, POA s/p CABG 3v and redo sternotomy with redo of graft failure now s/p CABG with 4v * Continue aspirin 81 mg p.o. and Plavix daily * Supplemental oxygen as needed to maintain SpO2 greater than 94% * Echocardiogram was done which revealed aortic valve: trileaflet, mildly sclerotic, and opens well. A repeat echocardiogram on 11/25/2024 showed LVEF which is difficult to assess due to arrhythmia but estimated at 40-45%. * In coronary CT angiography there is mixed calcified and noncalcified plaque in the proximal LAD with 80-90% stenosis. Left circumflex coronary artery: Normal caliber, nondominant and gives rise to a large OM branch. There is mixed calcified and noncalcified plaque in the mid LCx with 80-90% stenosis. * Left heart catheterization with selective right and left coronary angiography was performed which showed critical left main disease. Severe ostial RCA stenosis. 11/06/24 * Cardiac catheterization demonstrated a very tight left main lesion and the patient is referred for surgical revascularization. * Patient is POD 20 S/P CABG, patient is being managed in the ICU per protocol. * Off impella since 11/25/2024, on Epinephrine 0.06 mcg. * Patient had severe drop in systolic blood pressure 160 to 78 from sitting to standing today * Cardiology increased fludrocortisone dose from 0.1-0.3 mg twice daily * We will continue to follow Cardiology and critical care recommendations. Peripheral vascular disease, suspected * Patient has history of exertional bilateral leg pain * Diminished peripheral pulses * A SERA has been ordered due to the patients complaint of bilateral lower extre mity claudication, and numbness/tingling in bilateral lower extremities. * Clear aspirin 81 mg daily and statin 40mg * Encouraged supervised exercise therapy for claudication * Counseled on continued smoking cessation 11/04/24 Peripheral Neuropathy * Vitamin B12 has been ordered to rule out peripheral neuropathy.on 11/06/24, 11/17/24 * Complained of numbness and tingling in his limbs. * Vitamin B12 level was measured which showed [id number]. * Patient has been started on vitamin B12 supplement 1000 mcg for 6 days. Carotid artery stenosis * Presence of bilateral carotid bruit on exam, suspicion for significant stenosis * Risk factor modification: Smoking cessation, BP control, glycemic control. 11/04/24 * Carotid artery ultrasound showed Bilateral ICA/CCA ratio more than 4.0 suggesting more than 70% stenosis. 11/05/24 * Cardiology recommended CT/MR angiogram when stable from surgical standpoint Hyperlipidemia * Continue home statin therapy atorvastatin 40 mg * Reinforce low-cholesterol, heart healthy diet (limit saturated fats, increase fiber, fruits and vegetables) * Encouraged regular physical activity as tolerated * Monitor lipid panel * Outpatient follow up with PCP/Cardiology for long-term lipid management and cardiovascular risks reduction Supportive measures * Start patient on GI prophylaxis * DVT prophylaxis * Monitor morning labs CBC and BMP daily * He is on heart healthy diet Hypothyroidism * Continue home dose of levothyroxine at 125 mcg daily * TSH 7.13 and Free T3 1.64. Postop acute anemia requiring transfusion - Patient's hemoglobin on 11/18 is 9. Patient has normocytic anemia - His iron panel from 11/17 showed low iron and low percentage saturation. - As per Hematology recommendations, patient was given IV iron sucrose 11/18 - Hematology saw the patient and they recommended to start folic acid, vitamin B12, ordered SPEP, UPEP, free light chains. kappa light chain - 203, Lambda light chain -29.5. They think that the patient might be having hemolytic anemia which could be the reason for his graft clotting after surgery. - Follow up with morning CBC. ATTESTATION BY PHYSICIAN I have seen and examined the patient. I reviewed the documentation, medical decision making, and treatment plan as noted by the resident physician above. I agree with the findings and plan of care. ALISA POLLARD MD, HARSHAVARDHA MD Nov 27, 2024 13:14
[2024-11-27] MEDS: ENOXAPARIN SODIUM 30 MG/0.3 ML SQ SCH (14:53)
--- NOTE | 2024-11-27 15:58 | HMCIMG ---
CHEST 1VW REASON: post cabg/impella COMPARISON: Chest radiograph from 11/25/2024 is available. FINDINGS: Single view of the chest was obtained. Lungs are clear. There is mild cardiomegaly with median sternotomy with cardiac revascularization procedure.. There is no pulmonary vascular congestion. Mediastinum and bony thorax appear unremarkable. There is a right-sided PIC catheter with tip in superior vena cava. IMPRESSION: 1. Mild cardiomegaly with Status post median sternotomy with cardiac revascularization procedure. 2. Right-sided PICC catheter in place with tip in superior vena cava.
--- NOTE | 2024-11-27 16:06 | PN ---
SUBJECTIVE: The patient is status post coronary artery bypass grafting, requiring L5.5 Impella 5.5 support. Yesterday, the patient's Impella was removed and the patient has been doing well. However, he still gets hypotensive occasionally. He is back on a low dose of epinephrine. The patient offers no complaints and states that he did not feel sweaty or lightheaded when his blood pressure is low. OBJECTIVE: VITAL SIGNS: Reveal a pulse of 82, blood pressure is 86/48, oxygen saturation 96%. HEENT: Reveals normocephalic, atraumatic. Extraocular movements intact. HEART: Currently S1 and S2 and regular. Sternal wound is healing well. NECK: Wound is bandaged. EXTREMITIES: He has a right upper extremity PICC line. He has a left axillary art line. LUNGS: Unlabored at rest. ABDOMEN: Reveals mild to moderate obesity. ASSESSMENT AND PLAN: * Status post coronary artery bypass grafting. We will continue aspirin. Hold metoprolol due to low blood pressures. Continue midodrine 15 mg t.i.d. We will increase fludrocortisone to 0.3 mg daily. The patient may have salt on his food. * Hypercholesterolemia. Lipitor at bedtime, low cholesterol, cardiac diet. * Deep venous thrombosis prophylaxis. The patient should be on Lovenox subcutaneously daily. Time spent 30 minutes. The patient is critically ill in the ICU. TID: [id number] RECEIPT: [id number]
--- NOTE | 2024-11-27 17:55 | NUR ---
Bladder scan performed prior to shift changed revealed a volume of 434ml. Patient remains pending to void following Daniel catheter removal earlier today. Patient observed resting comfortably in bed watching TV, Alert x4, denies any pain or discomfort. Doctor Titi notified of urine output; No new orders received. Vitals signs stable. Call light within reach. Will continue to monitor urinary output and assess for signs of urinary retention.
[2024-11-28] VITALS (21 sets, daily range): BP systolic 77–109; BP diastolic 39–54; PULSE 66–85; RESP 14–62; TEMP 97.7–98.1; O2SAT 95–99
--- NOTE | 2024-11-28 00:24 | PN ---
SUBJECTIVE: The patient is postop day #20 from a coronary artery bypass grafting. The patient is postop day #2 from left ventricular Impella and left ventricular assist device removal. The patient has been doing well; however, he did have orthostatic hypotension again today. The patient stated that he was not symptomatic. He is in good spirits and is talkative. He is being visited by a neighbor. OBJECTIVE: VITAL SIGNS: His vital signs currently are a pulse of 81, blood pressure 98/53, respirations 15, oxygen saturation 95%. HEENT: Exam reveals normocephalic, atraumatic. Extraocular movements intact. CHEST: His sternal wound is bandaged. His neck wound is bandaged. LUNGS: His lungs are unlabored at rest. ABDOMEN: His abdomen reveals mild obesity. EXTREMITIES: He has a right upper extremity PICC line. He has SCDs on his lower extremities and LYNDA stockings. ASSESSMENT AND PLAN: Status post coronary artery bypass grafting. Continue aspirin and and continue to hold Lasix and metoprolol. Orthostatic hypotension. Continue midodrine and fludrocortisone. The patient can also have salt on his food. Hypercholesterolemia. Lipitor at bedtime; low cholesterol, cardiac diet. Deep venous thrombosis prophylaxis. We are starting Lovenox 30 mg subcutaneously daily. Time spent 30 minutes. Patient is critically ill in the ICU. TID: [id number] RECEIPT: [id number]
[2024-11-28 03:19] LABS: IMMATURE GRANULOCYTE ABSOLUTE 0.05 K/uL (0-1); NUCLEATED RED BLOOD CELLS 0.0 % (0.0-0.19); PLATELET COUNT (AUTO) 305 K/uL (130-400); RED BLOOD CELL COUNT(AUTO) 2.80 MIL/uL (4.50-6.20); RED CELL DISTRIBUTION WIDTH 14.7 % (11.0-15.5); WHITE BLOOD COUNT (AUTO) 5.3 K/uL (4.8-10.8)
[2024-11-28 03:34] LABS: ASPARTATE AMINOTRANSFERASE 22.0 U/L (10-37); CREATININE 0.9 mg/dL (0.5-1.3); GLOMERULAR FILTR. RATE CALC 93.0 mL/min (>90); GLUCOSE,RANDOM 84.0 mg/dL (70-105); SODIUM SERUM 144.0 mmol/L (136-145); TOTAL PROTEIN, SERUM 6.4 g/dL (6.0-8.3); UREA NITROGEN, BLOOD 10.0 mg/dL (7-18)
--- NOTE | 2024-11-28 09:34 | PN ---
SUBJECTIVE: The patient is postop day #21 from a coronary artery bypass grafting. He has just had his L5.5 Impella left ventricular assist device removed a couple of days ago. The patient has been doing well. He still has low blood pressures, but he is asymptomatic. I suspect he has vascular disease in all lower extremities, which do not allow us to measure an accurate central aortic pressure. He offers no complaints today. OBJECTIVE: VITAL SIGNS: His vital signs are pulse is 66, respirations are 18, blood pressure 82/48, and oxygen saturation 100% on room air. HEENT: HEENT exam reveals normocephalic, atraumatic. Extraocular movements intact. CHEST: His sternal wound is bandaged. He has a left neck incision where his Impella catheter is placed with mild bruising. HEART: His heart is S1 and S2 and regular. ABDOMEN: His abdomen reveals mild obesity. EXTREMITIES: He has right upper extremity PICC line. ASSESSMENT AND PLAN: * Status post coronary artery bypass grafting and L5.5 Impella left ventricular assist device. Continue aspirin and midodrine. The patient can liberalize his salt intake. We will also continue fludrocortisone at its maximum dose. Ambulate the patient today. * Hypercholesterolemia. Lipitor at bedtime with a low cholesterol, cardiac diet. * Deep venous thrombosis prophylaxis. Lovenox 30 mg subcutaneously daily. * History of urinary retention. The patient had to do a straight catheter with 900 mL of urine output obtained. We will start the patient on Flomax 0.4 mg at bedtime and if it needs to be catheterized again, we will use a Daniel catheter and leave it in. Time spent 30 minutes. The patient is critically ill in the ICU. TID: [id number] RECEIPT: [id number]
[2024-11-28] MEDS: 0.9%NACL 10ML VIAL IVP PRN (10:29)
[2024-11-28] MEDS: SODIUM CHLORIDE 0.9 % (FLUSH) 10 ML SYG IV SCH (10:30)
--- NOTE | 2024-11-28 12:06 | PN ---
[facility] CARDIOLOGY PROGRESS NOTE Date Patient Seen: Nov 28, 2024 Time of Visit: 12:02 Interval History: No acute events overnight , patient has been weaned off pressor, orthostatics have been negative. No telemetry events noted, currently denying any cardiac symptoms or anginal equivalents Physical Examination: GENERAL: No acute distress. HEAD: Normal with no signs of head trauma. EYES: PERRLA, EOMI, conjunctiva and sclera normal. ENT: Hearing grossly intact, normal oropharynx. NECK: Supple without JVD. There is no tenderness, lymphadenopathy, or masses. No thyromegaly. Normal carotid upstrokes without bruits. LUNGS: Clear breath sounds bilaterally. No wheezes, or rhonchi.chest tubes are in HEART: Normal rate and rhythm. Normal S1 and S2 without murmurs, gallop or rub. VASC: Peripheral pulses +2 bilaterally. ABD: Bowel sounds normal, soft, nontender, no masses, no organomegaly. No audible bruits. : Not examined LYMPH: No lymphadenopathy noted. EXT: No clubbing, cyanosis or edema. SKIN: No rashes or lesions noted. NEURO: Awake, alert, and oriented x3. No focal sensory or strength deficits noted. Laboratory: [ ] Hematology Labs: Test 11/28/24 03:12 Range/Units White Blood Count 5.3 4.8-10.8 K/uL Red Blood Count 2.80 L 4.50-6.20 MIL/uL Hemoglobin 8.9 L 14.0-18.0 g/dL Hematocrit 27.8 L 42-54 % Mean Corpuscular Volume 99.3 H 79-99 fL Mean Corpuscular Hemoglobin 31.8 27.0-33.0 pg Mean Corpuscular Hemoglobin Concent 32.0 32.0-36.0 g/dL Red Cell Distribution Width 14.7 11.0-15.5 % Platelet Count 305 130-400 K/uL Mean Platelet Volume 9.2 7.5-10.5 fL Immature Granulocyte % (Auto) 0.9 0-1 % Neutrophils (%) (Auto) 58.2 40.0-77.0 % Lymphocytes (%) (Auto) 26.1 21.0-51.0 % Monocytes (%) (Auto) 8.8 3.0-13.0 % Eosinophils (%) (Auto) 4.7 0.0-8.0 % Basophils (%) (Auto) 1.3 0.0-5.0 % Neutrophils # (Auto) 3.1 1.8-7.7 K/uL Lymphocytes # (Auto) 1.4 1.0-4.8 K/uL Monocytes # (Auto) 0.5 0.1-1.0 K/uL Eosinophils # (Auto) 0.25 0.00-0.70 K/uL Basophils # (Auto) 0.07 0.00-0.20 K/uL Absolute Immature Granulocyte (auto 0.05 0-1 K/uL Nucleated Red Blood Cells 0.0 0.0-0.19 % Chemistry Labs: Test 11/28/24 03:12 Range/Units Sodium Level 144 136-145 mmol/L Potassium Level 3.8 3.5-5.1 mmol/L Chloride Level 105 101-111 mmol/L Carbon Dioxide Level 26 21-32 mmol/L Blood Urea Nitrogen 10 7-18 mg/dL Creatinine 0.9 0.5-1.3 mg/dL Glomerular Filtration Rate Calc 93 >90 mL/min Random Glucose 84 70-105 mg/dL Total Calcium 8.4 L 8.5-10.1 mg/dL Total Bilirubin 0.5 # 0.2-1.0 mg/dL Aspartate Amino Transf (AST/SGOT) 22 10-37 U/L Alanine Aminotransferase (ALT/SGPT) 15 12-78 U/L Alkaline Phosphatase 101 50-136 U/L Total Protein 6.4 6.0-8.3 g/dL Albumin 2.5 L 3.5-5.0 g/dL Diagnostics / Radiology: [Copy/Paste Echos/Imaging Report here] Impression and Plan: Abnormal CT coronary angiogram 11/05/2024 demonstrating a CAD-RADs score of 4B mixed calcified and noncalcified plaque in the left main with 50% stenosis, 80- 90% stenosis in the proximal LAD and 80-90% stenosis in mid left circumflex Critical left main and ostial RCA stenosis by cardiac catheterization 11/06/2024 S/p CABG with initial graft failure converted to Impella supported redo (CHILD- LAD, SVG-OM2, SVG-RCA and SVG-LAD) on 11/07/[address] Meza LVEF of 60-65% by 2D echocardiogram 11/05/2024 Mild ischemic cardiomyopathy with an LVEF of 40-45% by 2D echocardiogram 11/12/2024 Bilateral ICA disease with >70% stenosis by Doppler on 11/04/2024 Transaminitis, improved Hyperlipidemia CAD s/p PTCA to unknown vessel approximately 30 years ago Ex-smoker of 1 PPD with cessation 2 months ago Graves disease S/p CABG with initial graft failure converted to Impella supported redo (CHILD- LAD, SVG-OM2, SVG-RCA and SVG-LAD) on 11/07/[address] Meza -currently denies any chest pain, palpitations, dyspnea or any other anginal equivalent -The patient was noted with severe orthostatic hypotension during PT on 11/23/2024 -current blood pressure average 120s. -Continue Midodrine 15mg TID and Florinef 0.1 mg every 12 hours -continue checking orthostatics every 12 hours -Impella has been successfully removed without complications -orthostatics have been negative, his systolic manual blood pressure is falsely low -keep on telemetry, monitor/replace electrolytes as needed -we will recommend focusing of the patient's symptoms and known her systolic blood pressure -avoid the use of beta-blockers due to soft blood pressures -Continue Aspirin 81 mg daily, Plavix 75 mg daily, Atorvastatin 40 mg q.h.s., -Continue management per Cardiothoracic surgery -PT/OT -from the cardiac standpoint the patient can be transferred out of the ICU to the PCCU Carotid artery disease Carotid US 11/05: Mild intimal thickening in the bilateral carotid arteries and their branches. Bilateral ICA/CCA ratio is more than 4.0 suggesting more than 70% stenosis. Raised velocities in the bilateral external and internal carotid arteries. -Recommend CT/MR angiogram when stable from surgical standpoint -Continue Aspirin 81 mg daily and Atorvastatin 40 mg q.h.s. Thank you for this consult cardiology will continue to follow along Gurvinder salazar MD ATTESTATION BY PHYSICIAN I have seen and examined the patient, reviewed the above documentation, participated in medical decision making, made necessary modifications, and agree with the treatment plan as documented by my mid-level provider above. MD JUAN Caldwell JAMES R MD Nov 28, 2024 12:06
--- NOTE | 2024-11-28 12:10 | PN ---
[facility] PROGRESS NOTE Date of Service: Nov 28, 2024 Time of Service: 12:10 SUBJECTIVE: Mr. Valadez a 68-year-old male that was seen and examined today on 11/03/2024. Patient reports that he came to the emergency department with a chief complaint of chest pain. Onset was two or three years ago. He had similar repeated episodes months back which resolved on its own. Today's episode began at 11:00 a.m. Location is midsternal. Duration is on and off. Character is described as "neck someone is pushing a knuckle into the center of my chest. The chest pain did not radiate to shoulder, neck or jaw. "There was no alleviating factors. There was no aggravating factors. Patient reports that symptoms seemingly resolve on their own. He denies nausea, vomiting, fever and any other associated symptoms. Patient denies any associated shortness of breath. Patient has a past medical history of hyperlipidemia and Graves disease. He has been taking atorvastatin and Synthroid as his home medications. Today in the emergency department WBC 5.8, hemoglobin 12.9 platelets 197. His chemistries were within normal limits sodium 140, potassium 4.2, blood urea nitrogen 15 and creatinine 1.0. His electrocardiogram showed normal sinus rhythm. Patient will be admitted for further evaluation and related recommendations in Med-Surg. 11/04/24 Patient was evaluated at the bedside in ED-09. He reports that he is having chest pain that comes and goes. The patient reports having 2 episodes of chest pain in the last hour. He denies associated symptoms such as shortness of breath, palpitation, diaphoresis, dizziness, nausea or syncope. He does however complain of muscle pain in his lower limbs described as a dull aching discomfort that begins in the hip region that is worsened with movement. The patient complains of tingling and numbness in his feet bilaterally. No fever, chills or recent infection reported. Appetite and oral intake are normal. No other acute complaints at this time. On physical exam, a systolic murmur was auscultated over the aortic area. Bilateral carotid bruits are present. Lower extremities are cool to the touch with diminished pedal pulses. Patient reports bilateral leg muscle pain with exertion (suggestive of claudication), and chronic numbness and tingling in the feet. Patient reports recently quitting smoking tobacco for 2 months. He had a 1 pack a day smoking history since 1968. [facility] and denies following with a staff toxicologist. The patient says his chest pain has been ongoing for the past 3 years, and that it gets worse with exertion and at rest. 11/05/24 Patient was evaluated at the bedside room 231. He was hemodynamically stable. Hi symptoms has improved significantly. He doesn't complain of chest pain, shortness of breath and any other associated symptoms. Echocardiogram was done which revealed aortic valve: trileaflet, mildly sclerotic, and opens well. Carotid artery ultrasound showed Bilateral ICA/CCA ratio more than 4.0 suggesting more than 70% stenosis. 11/06/24 Patient was evaluated at the bedside room 231. He was hemodynamically stable. Hi symptoms has improved significantly. He doesn't complain of chest pain, shortness of breath and any other associated symptoms. In coronary CT angiography there is mixed calcified and noncalcified plaque in the proximal LAD with 80-90% stenosis. Left circumflex coronary artery: Normal caliber, nondominant and gives rise to a large OM branch. There is mixed calcified and noncalcified plaque in the mid LCx with 80-90% stenosis. CAD-RAD of 4B. Left heart catheterization with selective right and left coronary angiography was performed which showed critical left main disease. 11/07/24 Patient was evaluated at the bedside room 231. He was hemodynamically stable. He doesn't complain of chest pain, shortness of breath and any other associated symptoms. He complaints of headache 8/10 of intensity after the administration of Nitroglycerin. Cardiac catheterization demonstrated a very tight left main lesion and the patient is referred for surgical revascularization. As per Dr Meza: Surgery is planned for today. 11/08/24: Patient was seen and evaluated this morning at bedside. The patient is POD 1 s/p CABG. Patient is currently being managed in the ICU. The patients most recent ABG shows a pH of 7.43, ABG PCO2 47, ABG PO2 77.9, ABG HCO3 30.8. Recent ABG shows improving lactic acid, from 8 to 3.85. The patients chemistry reveals a sodium level 157, potassium level 3.4, creatinine 1.9, BUN 19, GFR 38, phosphorous 2.2. Liver enzymes are trending up, with an ALT level at 325 and an AST level at 869. The patients home medication of Synthroid has been restarted. Chest x-ray ordered today, results pending. We will continue to follow recommendations from critical care team, and cardiology. 11/09/2024: Patient is seen and evaluated in the room 213. The patient is POD 2 s/p CABG. Patient is currently being managed in the ICU. He is complaining of pain. His vitals are in the normal range. His Hb is 11.1, WBC is 19.1, Plt is 115, sodium is 154, chloride is 113, glucose is 122. His recent ABG shows that pH is 7.472, pO2 is 80.1, bicarb is 30.4, Hb is 11.4, lactic acid is 1.63. His chest X-ray on 11/08 showed improved aeration within the left perihilar and left basilar regions. As per nurse he is having intervention confusion, stopped lidocaine and they also weaning on pressors norepinephrine and epinephrine. The drain output from left anterior chest is 20ml, mediastinal lateral is 160ml, mediastinal mediastinal is 300ml, right anterior chest is 160 ml. We will continue to follow recommendations from critical care team, and cardiology. 11/10/2024: Patient was seen and evaluated this morning at bedside. The patient is POD 3 s/p CABG. Patient is currently being managed in the ICU. He is not having any symptoms today. His vitals are in the normal range. His labs are normal except for Hb is 10.1, WBC is 14.7, plt is 85, sodium is 147, AST is 156, ALT is 95, APTT is 25.5. ABG shows that his pH is 7.4, lactate is 1.22, bicarb is 31. The drain output from left anterior chest is 170 ml, mediastinal mediastinal is 130ml. We will continue to follow recommendations from critical care team, and cardiology. 11/11/2024: Patient was seen and evaluated this morning at bedside. The patient is POD 4 s/p CABG. He is not having any symptoms today. His vitals are in the normal range. His labs are normal except for hemoglobin is 9.7, WBC is 11.7, platelet is 106, glucose is 107, AST is 87, ALT is 62. ABG shows pH is 7.468, lactic acid is 1.03. We will continue to follow recommendations from critical care team, and cardiology. 11/12/2024: Patient was seen and evaluated in the room 218. The patient is POD 5 s/p CABG. He is having dizziness and ache in the left shoulder. His vitals are in the normal range. His labs are normal except for hemoglobin 9.6, platelets is 94, AST 75. ABG shows pH 7.487, lactic acid 1.2. Currently he is not on any pressors. Cardiovascular surgery tried to wean Impella. They decreased impella setting to P4 but his blood pressure is low so they went back to P5. Cardiovascular surgery also increased his midodrine dose to 15mg. His chest X- ray showed mild pulmonary vascular congestion. He had a bowel movement and good urine output. He is using incentive spirometry well. We will continue to follow recommendations from the critical Care team and Cardiology. 11/13/2024: Patient was seen and evaluated in the room 218. The patient is POD 6 s/p CABG. He is having dizziness and generalized ache. His vitals are in the normal range. His labs are normal except for Hb is 8.9, calcium is 7.4, glucose is 140. His chest x-ray showed that mild borderline cardiomegaly with median sternotomy with cardiac and aspiration procedure, support lines in satisfactory position, no evidence of airspace consolidation or pulmonary venous congestion. He is restarted on norepinephrine and epinephrine drip and impella at P5 as he is hypotensive and has bradycardia. The nurse told me that she will consult anesthesia for changing the arterial line as his line is not working. He is on heparin drip and off of lovenox. The drain output from left anterior chest is 260 ml, mediastinal mediastinal is 60ml. Hematology was consulted as he is in a hypercoagulable state. 11/14/2024: Patient was seen and evaluated in the room 218. The patient is POD 7 s/p CABG. His vital signs are in the normal range except for blood pressure is 88/64. His labs are normal except for hemoglobin is 8.8, APTT is 62.4, glucose is 133, calcium is 7.5, AST is 61. Chest X-ray showed mild cardiomegaly with median sternotomy with cardiac revascularization procedure, support lines are in satisfactory position. His impella is increased to P7 as he is hypotensive and bradycardic. He is on epinephrine. The drain output from left anterior chest is 80ml and from mediastinal mediastinal is 20ml. Hematology saw the patient and they recommended to start folic acid, vitamin B12, ordered SPEP, UPEP, free light chains. They think that the patient might be having hemolytic anemia which could be the reason for his graft clotting after surgery. 11/15/2024: He was evaluated at the bedside this morning. The patient is POD 8 s/p CABG. He is on Impella support with blood pressure 89/64 with map 72. Remarkable lab is for hemoglobin 9.2. Chest x-ray revealed mildly improved right lower lobe airspace opacity with stable cardiac support device and median sternotomy. His MPOA is encouraged to P8 and weaned off the pressors. Hematology recommending Tatiana test to rule out autoimmune hemolytic anemia. Hematology, CT surgery, critical care and cardiology on the board. Rest of the plan as discussed below. 11/16/2024: He was evaluated at the bedside this morning. The patient is POD 9 s/p CABG. Impella support has been weaned to P5 today. As per Dr. Khan, epi will be turned on at 0.03 mcg/kg/min and Impella performance level will be decreased to p4 tomorrow morning. Today, patient's BP is at 102/62, 79bpm and he is on 3L O2 nasal cannula. He is pending direct tatiana test, SPEP, UPEP and Free Light Chain assay as per hematology. His Hb from today is 8.9. Chest Tube drainage is at 201 ml. Hematology, CT surgery, critical care and cardiology on the board. 11/17/2024: He was evaluated at the bedside this morning. The patient is POD 10 s/p CABG. Impella support has been weaned to P4 today. Patient is currently on epinephrine 0.03 mcg/kg/minute as per Dr. Khan. Patient is receiving Lasix for diuresis and her urine output in the past 24 hours has been for 4050 mL. Mediastinal mediastinal chest tube drainage is 40 mL. Left anterior chest tube drainage is 104 mL. Hematology, CT surgery, critical care and cardiology on the board. 11/18/2024: He was evaluated at the bedside this morning. The patient is POD 11 s/p CABG. Impella support continues on P4 today. Plan is to wean off further tomorrow. Patient is currently on epinephrine 0.05 mcg/kg per minute. His blood pressure is running low, 88/48. Patient is receiving Lasix for diuresis and his urine output in the past 24 hours has been for 3400 mL. Mediastinal mediastinal chest tube drainage is 60 mL. Left anterior chest tube drainage is 140 mL. Hematology, CT surgery, critical care and cardiology on the board. As per Hematology recommendations, IV iron sucrose was ordered since iron panel showed low iron, and low percentage saturation. 11/19/2024: Patient was seen and evaluated at the bedside this morning. The patient is POD 12 s/p CABG. Impella support continues on P4 today and there is a plan to wean it off further, awaiting cardiothoracic surgery recommendations. Patient is currently maintained on epinephrine 0.03 mcg/kg per minute. His blood pressure is still running low, 92/44. He passed stool twice yesterday, after 7 days of constipation. Hematology, CT surgery, critical care and cardiology on the board. 11/20/2024: Patient was seen and evaluated at bedside this morning. He continues on P4 support. He is vitally stable with BP 101/56. WBCs are trending down from 12.4 K to 11.1 K. His TSH was elevated, 7.13. Free T3 test showed 1.64. We will continue to follow recommendations from Cardiothoracic surgery, Cardiology, and critical Care teams. 11/21/24: Patient was seen and evaluated at bedside this morning in room 218. The patient is POD 14 s/p CABG He continues on P4 support planning to be weaned off to lower settings if he continues to do better as per cardiothoracic surgery recommendations. Blood pressure on arterial line is 97/52 (67). WBCs are trending down from 11.1 to 10.0. His TSH was elevated, 7.13. Free T3 test showed 1.64. We will continue to follow recommendations from Cardiothoracic surgery, Cardiology, and critical Care teams. 11/22/24: Patient was seen and evaluated at bedside this morning in room 218. The patient is POD 15 s/p CABG. He continues on P4 support today as weaning off has been unsuccessful so far. He is currently on 0.08 epi support. He is undergoing diuresis as well. He reports no bowel movement for the past several days. We will continue to follow recommendations from Cardiothoracic surgery, Cardiology, and critical Care teams. 11/23/2024: Patient was seen and evaluated at the bedside this morning in room 218. This is postop day 16 status post CABG. He had no acute events overnight and was sitting comfortably in his chair during my visit. Patient continues on Impella P4 for support today. His vasopressor support is reducing today at 0.06 mcg. Patient denies chest pain, shortness of breath however has mild cough. Plan is to slowly taper off epinephrine and Impella. We will continue to follow recommendations from Cardiothoracic surgery, Cardiology and critical Care teams. 11/24/24: Patient was evaluated at the bedside in room 218. This is postop day 17 status post CABG. He had no acute events overnight and was sitting comfortably in his chair. Patient is weaned off epinephrine completely. Continues on Impella P3 support. Patient denies chest pain, shortness of breath, or anginal equivalents. All the chest tubes are out. We will continue to follow recommendations from Cardiothoracic surgery, Cardiology, critical Care team. 11/25/2024: Patient was evaluated at bedside in room 218. This is postop day 18 status post CABG. No acute events overnight and was sleeping comfortably in his chair and had good spirits. Patient has been off vasopressors for over 24 hours now and his blood pressures have been holding in 100s. He continues on Impella P3 support and the plan is for removal later today. Patient denied chest pain, shortness of breath or angina equivalents. We will continue to follow recommendations from Cardiothoracic surgery, Cardiology, and critical care team. 11/26/2024: Patient was evaluated at the bedside in room 218. His Impella was removed yesterday afternoon and has been resumed on Epinephrine at 0.06 mcg. Patient's systolic blood pressures have been soft and were in the range of 80- 90s. He denied chest pain, shortness of breath, dizziness, abdominal pain and headaches. Reported mild throat soreness and cough. We will continue to monitor for his recovery and follow cardiology, cardiothoracic, and critical care recommendations. 11/27/2024: Patient was evaluated at the bedside in room 218. Been weaned off Impella since 2 days and his maintaining blood pressure in the range of 80s to 90s. He continues to remain on epinephrine at 0.06 mcg and fludrocortisone was increased to 0.3 mg twice daily. Orthostatic vitals revealed severe drop in systolic blood pressure from 160-78 mm hg SBP. A repeat chest x-ray was ordered and if it will be unremarkable IV bolus of 250 mL of normal saline will be administered once to assess his orthostasis. We will continue management per Cardiothoracic surgery. 11/28/2024: Patient was seen and evaluated bedside in room 218. Case discussed with RN, no acute overnight events. Patient has been weaned off from epinephrine 0.06 mcg yesterday, his blood pressure fluctuating in 70s and 80s. We will continue fludrocortisone 0.3 mg p.o. daily, midodrine 15 mg t.i.d. we will continue management per Cardiothoracic surgery. REVIEW OF SYSTEMS CONSTITUTIONAL: Pain in his left shoulder, improved No fever, chills, or night sweats. NEUROLOGICAL: No headache no sensory and motor deficit. CARDIOVASCULAR: Dizziness, improved Denies any exertional angina, dyspnea on exertion, palpitations. PULMONARY: Denies any shortness of breath, cough, phlegm/sputum, hemoptysis, pleuritic chest pain. GASTROINTESTINAL: Constipation. Denies nausea, vomiting. Denies pain, tenderness around the abdomen. GENITOURINARY: Denies frequency, urgency, nocturia, hematuria or incontinence. PHYSICAL EXAM GENERAL APPEARANCE: The patient is alert, awake and oriented and bedbound. NEUROLOGICAL: No sensory and motor deficits. CHEST: left anterior chest , mediastinal mediastinal drains are removed. Dressing is clean Normal chest expansion. LUNGS: Normal vesicular breath sound. Absence of any rales, rhonchi or any wheezing. CARDIOVASCULAR: Systolic murmur heard over aortic area. Bilateral carotid bruits heard. No JVD. ABDOMEN: Soft nontender, and nondistended. There is no rebound, voluntary guarding, or rigidity. No abdominal bruit heard. GENITOURINARY: No suprapubic tenderness. No costovertebral angle tenderness. EXTREMITIES: Limbs are non-edematous. Vital Signs (last 8hr) Date Time Temp Pulse Resp B/P (MAP) Pulse Ox O2 Delivery O2 Flow Rate FiO2 11/28/24 11:08 18 N/A Room Air 21 11/28/24 11:08 69 20 11/28/24 07:30 96 Room Air* 0 21 11/28/24 07:00 68 14 77/41 92 Room Air 21 11/28/24 06:30 18 N/A Room Air 21 11/28/24 06:25 77 20 11/28/24 06:00 72 15 79/41 96 Room Air 21 11/28/24 05:00 70 21 80/39 94 Room Air 21 LABS: Laboratory: Test 11/28/24 03:12 Range/Units White Blood Count 5.3 4.8-10.8 K/uL Red Blood Count 2.80 L 4.50-6.20 MIL/uL Hemoglobin 8.9 L 14.0-18.0 g/dL Hematocrit 27.8 L 42-54 % Mean Corpuscular Volume 99.3 H 79-99 fL Mean Corpuscular Hemoglobin 31.8 27.0-33.0 pg Mean Corpuscular Hemoglobin Concent 32.0 32.0-36.0 g/dL Red Cell Distribution Width 14.7 11.0-15.5 % Platelet Count 305 130-400 K/uL Mean Platelet Volume 9.2 7.5-10.5 fL Immature Granulocyte % (Auto) 0.9 0-1 % Neutrophils (%) (Auto) 58.2 40.0-77.0 % Lymphocytes (%) (Auto) 26.1 21.0-51.0 % Monocytes (%) (Auto) 8.8 3.0-13.0 % Eosinophils (%) (Auto) 4.7 0.0-8.0 % Basophils (%) (Auto) 1.3 0.0-5.0 % Neutrophils # (Auto) 3.1 1.8-7.7 K/uL Lymphocytes # (Auto) 1.4 1.0-4.8 K/uL Monocytes # (Auto) 0.5 0.1-1.0 K/uL Eosinophils # (Auto) 0.25 0.00-0.70 K/uL Basophils # (Auto) 0.07 0.00-0.20 K/uL Absolute Immature Granulocyte (auto 0.05 0-1 K/uL Nucleated Red Blood Cells 0.0 0.0-0.19 % Sodium Level 144 136-145 mmol/L Potassium Level 3.8 3.5-5.1 mmol/L Chloride Level 105 101-111 mmol/L Carbon Dioxide Level 26 21-32 mmol/L Blood Urea Nitrogen 10 7-18 mg/dL Creatinine 0.9 0.5-1.3 mg/dL Glomerular Filtration Rate Calc 93 >90 mL/min Random Glucose 84 70-105 mg/dL Total Calcium 8.4 L 8.5-10.1 mg/dL Total Bilirubin 0.5 # 0.2-1.0 mg/dL Aspartate Amino Transf (AST/SGOT) 22 10-37 U/L Alanine Aminotransferase (ALT/SGPT) 15 12-78 U/L Alkaline Phosphatase 101 50-136 U/L Total Protein 6.4 6.0-8.3 g/dL Albumin 2.5 L 3.5-5.0 g/dL Current Medications Medications (Trade) Dose Ordered Sig/Brittany Route PRN Reason Start Time Stop Time Status Last Admin Dose Admin Acetaminophen (TYLenol 325MG TAB) 650 mg Q4H PRN PO Temp >38.3C(AFTER EXTUBATION) 11/07/24 14:00 12/07/24 13:59 Acetaminophen (TYLenol 325MG TAB) 650 mg Q6H PRN PO TEMPERATURE GREATER THAN 101.5 11/03/24 21:00 11/07/24 14:00 DC 11/06/24 23:00 650 MG Acetaminophen (TYLenol 325MG TAB) 650 mg Q6H PRN PO MILD PAIN (1-3) 11/07/24 14:00 12/07/24 13:59 11/16/24 11:37 650 MG Acetaminophen (TYLenol 650MG SUPPOSITORY) 650 mg Q4H PRN RC Temp >38.3C WHILE INTUBATED 11/07/24 14:00 12/07/24 13:59 Acetaminophen (acetaMINOPHEN) 1,000 mg Q6H IVPB 11/09/24 09:00 11/12/24 08:59 DC 11/12/24 02:11 1,000 MG Acetaminophen (acetaMINOPHEN) 1,000 mg Q6H6 IV 11/07/24 18:00 11/08/24 17:59 DC 11/08/24 18:08 1,000 MG Albumin Human 250 ml @ 0 mls/hr AD IV 11/23/24 09:00 11/28/24 08:59 DC 11/23/24 08:55 250 MLS/HR Albumin Human 250 ml @ 0 mls/hr AD PRN IV IF HEMODYNAMICALLY UNSTABLE 11/07/24 14:00 11/08/24 09:57 DC 11/08/24 09:57 125 MLS/HR Albumin Human 250 ml @ 0 mls/hr AD STAT IV 11/15/24 13:09 11/15/24 13:12 DC 11/15/24 13:28 250 MLS/HR Aminocaproic Acid 42920 mg/Sodium Chloride 310 ml @ 25 mls/hr AD IV 11/07/24 14:00 11/08/24 02:23 DC Aminocaproic Acid 38119 mg/Sodium Chloride 480 ml @ 0 mls/hr AD PRN IV BLEEDING CONTROL 11/07/24 11:00 11/07/24 14:03 DC Aspirin (Aspirin 81mg Ec Tab) 81 mg DAILY PO 11/04/24 09:00 12/04/24 08:59 11/28/24 10:27 81 MG Atorvastatin Calcium (LIPItor 40MG) 40 mg HS PO 11/03/24 21:00 11/03/24 20:40 DC Atorvastatin Calcium (LIPItor 40MG) 40 mg HS PO 11/03/24 21:00 11/09/24 07:45 DC 11/07/24 20:15 40 MG Atorvastatin Calcium (LIPItor 40MG) 40 mg HS PO 11/10/24 21:00 12/10/24 20:59 11/27/24 19:45 40 MG Calcium Gluconate (Calcium Gluc 1gm Vial) 1 gm AD PRN IV HYPOCALCEMIA 11/08/24 09:00 11/09/24 07:45 DC 11/08/24 16:36 1 GM Calcium Gluconate 1 gm/Sodium Chloride 60 ml @ 200 mls/hr AD PRN IV HYPOCALCEMIA 11/07/24 14:00 12/07/24 13:59 11/21/24 06:13 200 MLS/HR Cefazolin Sodium (Ancef) 2 gm ONCALL IVPB 11/06/24 22:00 11/07/24 14:00 DC Cefazolin Sodium (Ancef) 2 gm Q8H IVPB 11/07/24 19:00 11/08/24 11:01 DC 11/08/24 11:15 2 GM Clopidogrel Bisulfate (plaVIX 75MG) 75 mg DAILY PO 11/08/24 14:00 12/08/24 13:59 11/28/24 10:27 75 MG Dexmedetomidine/ Sodium Chloride (PRECEdex 400MCG/ 100ML-NS) 400 mcg PROTOCOL IV 11/07/24 14:00 12/07/24 13:59 Dextrose (D50w) 50 ml AD PRN IV HYPOGLYCEMIA PROTOCOL 11/07/24 14:00 12/07/24 13:59 Dextrose/Sodium Bicarbonate 1,025 ml @ 10 mls/hr Q24H IV 11/07/24 19:30 11/27/24 15:14 DC 11/27/24 09:05 10 MLS/HR Docusate Sodium (COLace 100MG CAP) 100 mg BID PO 11/07/24 21:00 11/08/24 10:11 DC 11/07/24 20:15 100 MG Docusate Sodium (COLace 100MG CAP) 100 mg BID PO 11/10/24 09:00 12/10/24 08:59 11/26/24 21:37 100 MG Docusate Sodium (COLace LIQUID 100MG/10ML) 100 mg BID NG 11/08/24 10:30 11/09/24 21:53 DC 11/09/24 20:47 100 MG Enoxaparin Sodium (Lovenox) 30 mg DAILY SQ 11/10/24 09:00 11/13/24 08:38 DC 11/12/24 09:03 30 MG Enoxaparin Sodium (Lovenox) 30 mg DAILY SQ 11/27/24 14:35 12/27/24 14:34 11/28/24 10:28 30 MG Enoxaparin Sodium (Lovenox) 40 mg DAILY SQ 11/04/24 09:00 11/07/24 13:38 DC 11/05/24 09:06 40 MG Epinephrine HCl 10 mg/Sodium Chloride 250 ml @ 13.948 mls/ hr AD PRN IV POST-OP CARDIOVASCULAR ORDERS 11/07/24 14:00 11/12/24 13:59 DC 11/09/24 19:48 7 MLS/HR Epinephrine HCl 10 mg/Sodium Chloride 250 ml @ 0 mls/hr AD PRN IV TITRATE 11/07/24 11:00 11/07/24 14:02 DC Epinephrine HCl 10 mg/Sodium Chloride 250 ml @ 0 mls/hr PROTOCOL IV 11/12/24 23:30 12/12/24 23:29 11/26/24 09:46 8.3 MLS/HR Famotidine (Pepcid 20mg Vial) 20 mg BID IV 11/07/24 21:00 11/08/24 08:59 DC 11/08/24 08:11 20 MG Famotidine (Pepcid 20mg Tab) 20 mg DAILY PO 11/04/24 09:00 11/07/24 13:38 DC 11/05/24 09:06 20 MG Fludrocortisone Acetate (Fludrocortisone Acetate) 0.1 mg BID PO 11/23/24 15:30 11/26/24 20:29 DC 11/26/24 09:51 0.1 MG Fludrocortisone Acetate (Fludrocortisone Acetate) 0.3 mg BID PO 11/26/24 21:00 11/27/24 10:04 DC Fludrocortisone Acetate (Fludrocortisone Acetate) 0.3 mg DAILY PO 11/27/24 10:30 12/27/24 10:29 11/28/24 10:26 0.3 MG Fludrocortisone Acetate (Fludrocortisone Acetate) 0.3 mg ONCE PO 11/26/24 21:00 11/26/24 23:59 DC 11/26/24 21:36 0.3 MG Folic Acid (FOLic ACID 1 MG TABLET) 1 mg DAILY PO 11/14/24 09:00 12/14/24 08:59 11/28/24 10:27 1 MG Furosemide (LASix 20MG TAB) 20 mg Q12H PO 11/09/24 09:00 11/24/24 15:51 DC 11/22/24 19:40 20 MG Furosemide (LASix 20MG TAB) 20 mg Q12H PO 11/25/24 09:00 11/27/24 14:34 DC 11/27/24 00:44 20 MG Furosemide (LASix 20MG VIAL) 20 mg Q12H IV 11/08/24 09:00 11/09/24 08:59 DC 11/08/24 20:23 20 MG Glucagon (Glucagon 1mg Kit) 1 mg AD PRN IM HYPOGLYCEMIA PROTOCOL 11/07/24 14:00 12/07/24 13:59 Guaifenesin/ Dextromethorphan (RobiTUSSin DM 200/20MG 10ML) 15 ml Q6H PRN PO COUGH 11/19/24 15:00 12/19/24 14:59 11/27/24 20:04 15 ML Heparin Sodium (Porcine) (HEParin 5,000 UNIT VIAL) *calculation based on ACTUAL B... AD PRN IV HEPARIN PROTOCOL 11/13/24 09:30 11/25/24 18:40 DC Heparin Sodium/ Dextrose 250 ml @ 0 mls/hr Q6H IV 11/13/24 09:30 11/25/24 18:40 DC 11/24/24 15:31 10.8 MLS/HR Hydralazine HCl (APRESOLine 20MG INJ) 10 mg Q6H PRN IV For:SBP above 160;DBP above 90 11/03/24 21:00 11/07/24 13:38 DC Insulin Human Regular 100 unit/ Sodium Chloride 100 ml @ 0 mls/hr AD IV 11/07/24 14:00 11/09/24 13:59 DC 11/08/24 12:30 4 MLS/HR Ipratropium [place] (AtrovENT UD) 0.5 MG [id number] IH 11/08/24 12:00 12/08/24 11:59 11/28/24 11:06 0.5 MG Lactulose (Constulose 20gm/ 30ml Udcup) 20 gm BID PRN PO CONSTIPATION 11/03/24 21:00 11/07/24 14:00 DC Lactulose (Constulose 20gm/ 30ml Udcup) 20 gm BID PRN PO CONSTIPATION 11/07/24 14:00 12/07/24 13:59 11/18/24 06:21 20 GM Levothyroxine Sodium (SYNTHroid 125MCG TAB) 125 mcg SYN PO 11/09/24 06:30 12/09/24 06:29 11/28/24 06:44 125 MCG Lidocaine HCl/ Dextrose 250 ml @ 0 mls/hr PROTOCOL PRN IV OTHER [SEE ORDER COMMENTS] 11/08/24 21:00 11/09/24 08:37 DC 11/08/24 21:15 7.5 MLS/HR Magnesium Hydroxide (Milk Of Magnesium 30ml) 30 ml DAILY PRN PO CONSTIPATION 11/07/24 14:00 12/07/24 13:59 Magnesium Sulfate 50 ml @ 12.5 mls/hr AD PRN IV MAG LEVEL LESS THAN 2.0 11/07/24 14:00 12/07/24 13:59 11/09/24 05:59 12.5 MLS/HR Metoprolol Tartrate (loprESSOR) 12.5 mg BID PO 11/09/24 09:00 11/11/24 09:39 DC Metoprolol Tartrate (loprESSOR) 50 mg BID PO 11/04/24 21:00 11/07/24 13:38 DC 11/06/24 20:38 50 MG Midodrine (PROAMatine 5 MG TABLET) 10 mg TID PO 11/09/24 21:00 11/11/24 06:58 DC 11/10/24 20:07 10 MG Midodrine (PROAMatine 5 MG TABLET) 15 mg TID PO 11/11/24 09:00 12/11/24 08:59 11/28/24 10:29 15 MG Montelukast Sodium (SinguLAIR) 10 mg HS PO 11/08/24 21:00 12/08/24 20:59 11/27/24 19:45 10 MG Morphine Sulfate (morPHINE 2MG SYG) 0.5 mg Q2H PRN IV MODERATE PAIN (4-6) 11/07/24 14:00 11/08/24 13:59 DC Morphine Sulfate (morPHINE 2MG SYG) 1 mg Q2H PRN IV SEVERE PAIN (7-10) 11/07/24 14:00 11/08/24 13:59 DC Morphine Sulfate (morPHINE 4MG SYG) 2 mg Q4H PRN IVP SEVERE PAIN (7-10) 11/03/24 21:00 11/07/24 13:38 DC 11/04/24 15:49 2 MG Nitroglycerin (Nitroglycerin 1gm Oint) 0.5 inch Q8H TD 11/03/24 21:00 11/07/24 13:38 DC 11/07/24 05:46 0.5 INCH Nitroglycerin/ Dextrose 0 ml @ 0 mls/hr AD IV 11/07/24 14:00 11/10/24 13:59 DC Norepinephrine Bitartrate 250 ml @ 0 mls/hr AD PRN IV TITRATE 11/07/24 11:00 11/07/24 14:02 DC Norepinephrine Bitartrate 250 ml @ 0 mls/hr AD PRN IV POST-OP CARDIOVASCULAR ORDERS 11/07/24 14:00 11/12/24 13:59 DC 11/09/24 17:09 5.6 MLS/HR Norepinephrine Bitartrate 250 ml @ 0 mls/hr PROTOCOL IV 11/12/24 18:30 12/12/24 18:29 11/13/24 08:42 2 MLS/HR Ondansetron HCl (zoFRAN 4MG INJ) 4 mg Q6H PRN IV NAUSEA/VOMITING 11/03/24 21:00 11/07/24 14:00 DC Ondansetron HCl (zoFRAN 4MG INJ) 4 mg Q6H PRN IV NAUSEA/VOMITING 11/07/24 14:00 12/07/24 13:59 11/09/24 21:50 4 MG Pantoprazole Sodium (PROTonix 40MG INJ) 40 mg BID IVP 11/08/24 09:00 12/08/24 08:59 11/28/24 10:26 40 MG Pharmacy Profile Note (Pharmacy Communication) 1 each ONCE MISC 11/13/24 09:00 11/13/24 08:57 DC Piperacillin Sod/ Tazobactam Sod (Zosyn 3.375gm+NS 50ml) 3.375 gm Q8H IV 11/09/24 10:00 11/09/24 09:38 DC Piperacillin Sod/ Tazobactam Sod (Zosyn 3.375gm+NS 50ml) 3.375 gm Q8H IV 11/09/24 10:00 11/19/24 09:59 DC 11/19/24 02:20 3.375 GM Polyethylene Glycol (MIRalax 3350 17 GM POWD.PACK) 17 gm DAILY PO 11/09/24 09:00 12/09/24 08:59 11/23/24 08:48 17 GM Potassium Phosphate 250 ml @ 42 mls/hr AD PRN IV LOW PHOS LEVEL 11/07/24 14:00 12/07/24 13:59 11/08/24 07:22 42 MLS/HR Potassium Chloride 100 ml @ 100 mls/hr AD PRN IV HYPOKALEMIA 11/07/24 14:00 12/07/24 13:59 11/24/24 05:53 100 MLS/HR Potassium Chloride (K-Dur/Klor-Con 20meq) 20 meq AD PRN PO POTASSIUM PROTOCOL 11/14/24 00:30 12/14/24 00:29 11/26/24 18:30 20 MEQ Potassium Chloride (KCl 10% Elixir 20meq/15ml) 20 meq AD PRN PO POTASSIUM PROTOCOL 11/14/24 00:30 12/14/24 00:29 11/21/24 08:34 20 MEQ Propofol 100 ml @ 0 mls/hr AD PRN IV SEDATION 11/07/24 14:00 11/11/24 13:59 DC Sodium Bicarbonate (Sodium Bicarb 50meq 50ml Vial) 50 meq AD PRN IV OTHER[SEE DOSING INSTRUCTIONS] 11/07/24 14:00 11/10/24 13:59 DC 11/08/24 00:54 50 MEQ Sodium Chloride 250 ml @ 0 mls/hr Q0M IV 11/27/24 10:30 12/27/24 10:29 11/27/24 10:26 250 MLS/HR Sodium Chloride 250 ml @ 0 mls/hr Q0M IV 11/18/24 10:00 11/27/24 10:11 DC 11/18/24 10:13 250 MLS/HR Sodium Chloride 500 ml @ 0 mls/hr AD IV 11/07/24 14:00 12/07/24 13:59 11/10/24 00:41 3 MLS/HR Sodium Chloride 1,000 ml @ 10 mls/hr ONCE IV 11/07/24 14:00 11/08/24 13:59 DC 11/07/24 20:11 10 MLS/HR Sodium Chloride 1,000 ml @ 100 mls/hr Q10H IV 11/06/24 12:30 11/06/24 15:29 DC Sodium Chloride (NS Flush 10ml) 10 ml Q8H PRN IVP IV LINE FLUSH 11/07/24 14:00 12/07/24 13:59 11/28/24 10:29 10 ML Sodium Chloride (Normal Saline Flush) 10 ml TID IV 11/28/24 09:00 12/28/24 08:59 11/28/24 10:30 10 ML Sucralfate (Carafate) 1 gm TID PO 11/08/24 21:00 11/27/24 15:14 DC 11/27/24 14:49 1 GM Tamsulosin HCl (FloMAX) 0.4 mg DAILY PO 11/28/24 21:00 12/28/24 20:59 Tramadol HCl (UltRAM) 25 mg Q6H PRN PO MODERATE PAIN (4-6) 11/07/24 14:00 11/09/24 08:37 DC Tramadol HCl (UltRAM) 50 mg Q6H PRN PO SEVERE PAIN (7-10) 11/07/24 14:00 11/09/24 08:37 DC 11/08/24 23:30 50 MG Vitamin B Complex (Vitamin B-12) 1,000 mcg DAILY IM 11/07/24 09:00 11/13/24 08:59 DC 11/12/24 09:03 1,000 MCG Vitamin B Complex (Vitamin B-12) 1,000 mcg DAILY PO 11/14/24 09:00 12/14/24 08:59 11/28/24 10:27 1,000 MCG DIAGNOSTICS / RADIOLOGY: [ ] [place] [address] [place] [address] IMAGING REPORT Signed PATIENT: CLARE VALADEZ MR#: [id number] : 1955 SEX: M AGE: 69 LOCATION: [facility] ORDER 7 STATUS: ADM IN REPORT#: [id number] SERVICE 6 REASON: post cabg/impella ORDERING PHYSICIAN: KELVIN MARTINEZ MD PROCEDURE: CXR1VW - CHEST 1VW CHEST 1VW REASON: post cabg/impella COMPARISON: Chest radiograph from 11/25/2024 is available. FINDINGS: Single view of the chest was obtained. Lungs are clear. There is mild cardiomegaly with median sternotomy with cardiac revascularization procedure.. There is no pulmonary vascular congestion. Mediastinum and bony thorax appear unremarkable. There is a right-sided PIC catheter with tip in superior vena cava. IMPRESSION: 1. Mild cardiomegaly with Status post median sternotomy with cardiac revascularization procedure. 2. Right-sided PICC catheter in place with tip in superior vena cava. DICTATED BY: MARCO ANTONIO FUENTES MD DATE: 11/27/241553 ELECTRONICALLY SIGNED BY: MARCO ANTONIO FUENTES MD DATE: 11/27/241557 ASSESSMENT: Coronary artery disease, POA, s/p CABG 3v and redo sternotomy with redo of graft failure now s/p CABG with 4v Postop acute anemia requiring transfusion Acute kidney injury Hyperlipidemia, POA Hypothyroidism, POA Peripheral artery disease, suspected Carotid artery stenosis PLAN: Coronary artery disease, POA s/p CABG 3v and redo sternotomy with redo of graft failure now s/p CABG with 4v * Continue aspirin 81 mg p.o. and Plavix daily * Supplemental oxygen as needed to maintain SpO2 greater than 94% * Echocardiogram was done which revealed aortic valve: trileaflet, mildly sclerotic, and opens well. A repeat echocardiogram on 11/25/2024 showed LVEF which is difficult to assess due to arrhythmia but estimated at 40-45%. * In coronary CT angiography there is mixed calcified and noncalcified plaque in the proximal LAD with 80-90% stenosis. Left circumflex coronary artery: Normal caliber, nondominant and gives rise to a large OM branch. There is mixed calcified and noncalcified plaque in the mid LCx with 80-90% stenosis. * Left heart catheterization with selective right and left coronary angiography was performed which showed critical left main disease. Severe ostial RCA stenosis. 11/06/24 * Cardiac catheterization demonstrated a very tight left main lesion and the patient is referred for surgical revascularization. * Patient is POD 20 S/P CABG, patient is being managed in the ICU per protocol. * Off impella since 11/25/2024, on Epinephrine 0.06 mcg. * Patient wean of from pressors on 11/27/2024 * Patient had severe drop in systolic blood pressure 160 to 78 from sitting to standing today * Cardiology increased fludrocortisone dose from 0.1-0.3 mg twice daily * We will continue to follow Cardiology and critical care recommendations. Peripheral vascular disease, suspected * Patient has history of exertional bilateral leg pain * Diminished peripheral pulses * A SERA has been ordered due to the patients complaint of bilateral lower extremity claudication, and numbness/tingling in bilateral lower extremities. * Clear aspirin 81 mg daily and statin 40mg * Encouraged supervised exercise therapy for claudication * Counseled on continued smoking cessation 11/04/24 Peripheral Neuropathy * Vitamin B12 has been ordered to rule out peripheral neuropathy.on 11/06/24, 11/17/24 * Complained of numbness and tingling in his limbs. * Vitamin B12 level was measured which showed [id number]. * Patient has been started on vitamin B12 supplement 1000 mcg for 6 days. Carotid artery stenosis * Presence of bilateral carotid bruit on exam, suspicion for significant stenosis * Risk factor modification: Smoking cessation, BP control, glycemic control. 11/04/24 * Carotid artery ultrasound showed Bilateral ICA/CCA ratio more than 4.0 suggesting more than 70% stenosis. 11/05/24 * Cardiology recommended CT/MR angiogram when stable from surgical standpoint Hyperlipidemia * Continue home statin therapy atorvastatin 40 mg * Reinforce low-cholesterol, heart healthy diet (limit saturated fats, increase fiber, fruits and vegetables) * Encouraged regular physical activity as tolerated * Monitor lipid panel * Outpatient follow up with PCP/Cardiology for long-term lipid management and cardiovascular risks reduction Supportive measures * Start patient on GI prophylaxis * DVT prophylaxis * Monitor morning labs CBC and BMP daily * He is on heart healthy diet Hypothyroidism * Continue home dose of levothyroxine at 125 mcg daily * TSH 7.13 and Free T3 1.64. Postop acute anemia requiring transfusion - Patient's hemoglobin on 11/18 is 9. Patient has normocytic anemia - His iron panel from 11/17 showed low iron and low percentage saturation. - As per Hematology recommendations, patient was given IV iron sucrose 11/18 - Hematology saw the patient and they recommended to start folic acid, vitamin B12, ordered SPEP, UPEP, free light chains. kappa light chain - 203, Lambda light chain -29.5. They think that the patient might be having hemolytic anemia which could be the reason for his graft clotting after surgery. - Follow up with morning CBC. ATTESTATION BY PHYSICIAN I have seen and examined the patient. I reviewed the documentation, medical decision making, and treatment plan as noted by the resident physician above. I agree with the findings and plan of care. ALISA POLLARD MD, ADIL SHAH QUADRI MD Nov 28, 2024 12:10
--- NOTE | 2024-11-28 12:38 | PN ---
[facility] PROGRESS NOTE Date Patient Seen: Nov 28, 2024 Time of Visit: 12:36 Supervising Physician: Dr Sincere Puri Primary Care Physician: Self Referral Outpatient Specialists: [ ] Inpatient Consults: PEG, Dr Jacobo, Dr Wellington , Dr Meza PROBLEM LIST: Cardiogenic shock MvCAD s/p CABG x 3+1 w/ redo on 11/07/24 Postop acute anemia requiring transfusion ELSA Hyperlipidemia Sclerotic nodule on the non coronary cusp on 2D echo Normal ventricular diastolic function with LVEF of 60-65% on 2D echo 11/05/24 Former smoker Graves disease Obesity INTERVAL HISTORY: Patient was seen and examined, all labs and imaging have been reviewed, patient comfortable in bed, reporting no chest pain or shortness of breath. Denies any dizziness or headache Failed his orthostatics, but off pressors PT is working with the patient He is tolerating his diet He is afebrile And nursing reports no acute events overnight Plan: Follow CT surgeon recs Weaning epi per protocol Cardiac diet Telemetry PT/OT when able Daily labs and chest x-ray in a.m. INOs Anticipate downgrade Total care time 41 minutes, Time excludes any education or procedural time. REVIEW OF SYSTEMS: 12 point ROS reviewed with patient. Pertinent positives mentioned above. Otherwise negative. PHYSICAL EXAM: GENERAL: alert, weak, awake oriented x 3 HEENT: EOMI, Sclera non icteric, moist mucosa NECK: Supple, no JVD, trachea midline right IJ. Subclavian Impella 5.5 LUNGS: Rhonchi to right lower lobes. No wheezes HEART: Regular rate and rhythm. Normal S1 and S2, without murmurs mid incision line tenderness. Dressing clean dry and intact. ABD: Abdomen soft, nontender. Bowel sounds present EXT: No clubbing cyanosis or edema. Left femoral sheath. NEURO: Alert and oriented to person, follows commands Vital Signs (last 8hr) Date Time Temp Pulse Resp B/P (MAP) Pulse Ox O2 Delivery O2 Flow Rate FiO2 11/28/24 11:08 18 N/A Room Air 21 11/28/24 11:08 69 20 11/28/24 07:30 96 Room Air* 0 21 11/28/24 07:00 68 14 77/41 92 Room Air 21 11/28/24 06:30 18 N/A Room Air 21 11/28/24 06:25 77 20 11/28/24 06:00 72 15 79/41 96 Room Air 21 11/28/24 05:00 70 21 80/39 94 Room Air 21 LABS: Hematology Labs: Test 11/28/24 03:12 Range/Units White Blood Count 5.3 4.8-10.8 K/uL Red Blood Count 2.80 L 4.50-6.20 MIL/uL Hemoglobin 8.9 L 14.0-18.0 g/dL Hematocrit 27.8 L 42-54 % Mean Corpuscular Volume 99.3 H 79-99 fL Mean Corpuscular Hemoglobin 31.8 27.0-33.0 pg Mean Corpuscular Hemoglobin Concent 32.0 32.0-36.0 g/dL Red Cell Distribution Width 14.7 11.0-15.5 % Platelet Count 305 130-400 K/uL Mean Platelet Volume 9.2 7.5-10.5 fL Immature Granulocyte % (Auto) 0.9 0-1 % Neutrophils (%) (Auto) 58.2 40.0-77.0 % Lymphocytes (%) (Auto) 26.1 21.0-51.0 % Monocytes (%) (Auto) 8.8 3.0-13.0 % Eosinophils (%) (Auto) 4.7 0.0-8.0 % Basophils (%) (Auto) 1.3 0.0-5.0 % Neutrophils # (Auto) 3.1 1.8-7.7 K/uL Lymphocytes # (Auto) 1.4 1.0-4.8 K/uL Monocytes # (Auto) 0.5 0.1-1.0 K/uL Eosinophils # (Auto) 0.25 0.00-0.70 K/uL Basophils # (Auto) 0.07 0.00-0.20 K/uL Absolute Immature Granulocyte (auto 0.05 0-1 K/uL Nucleated Red Blood Cells 0.0 0.0-0.19 % Chemistry Labs: Test 11/28/24 03:12 Range/Units Sodium Level 144 136-145 mmol/L Potassium Level 3.8 3.5-5.1 mmol/L Chloride Level 105 101-111 mmol/L Carbon Dioxide Level 26 21-32 mmol/L Blood Urea Nitrogen 10 7-18 mg/dL Creatinine 0.9 0.5-1.3 mg/dL Glomerular Filtration Rate Calc 93 >90 mL/min Random Glucose 84 70-105 mg/dL Total Calcium 8.4 L 8.5-10.1 mg/dL Total Bilirubin 0.5 # 0.2-1.0 mg/dL Aspartate Amino Transf (AST/SGOT) 22 10-37 U/L Alanine Aminotransferase (ALT/SGPT) 15 12-78 U/L Alkaline Phosphatase 101 50-136 U/L Total Protein 6.4 6.0-8.3 g/dL Albumin 2.5 L 3.5-5.0 g/dL DIAGNOSTICS / RADIOLOGY RESULTS: [ ] PLAN NEURO: Minimize central acting medications as possible. Maintain fall precautions, adequate lighting during the day PULMONARY: Supplemental 02 as needed. Maintain aspiration precautions at all times CARDIOVASCULAR: Follow hemodynamics. Vital signs per facility protocol GI & NUTRITION: Continue with nutritional support. Continue stool softeners and laxatives as needed. KIDNEYS & ELECTROLYTES: Strict monitoring of intake, output and overall fluid balance. Avoid nephrotoxic medications to the extent possible. Medications to be dosed according to renal function. Monitor electrolytes and replace as needed ENDOCRINE: Maintain blood glucose between 100-180 at all times. Hypoglycemia protocol in place INFECTIOUS DISEASE: Trend temperature, WBC and procalcitonin level Follow cultures, deescalate antibiotics as soon as possible. Panculture if new onset fever ONCOLOGY/HEMATOLOGY/COAGULATION: Monitor for s/s of bleeding Monitor hemoglobin, coagulation studies as needed SKIN: Pressure ulcer prevention per facility protocol Specialty mattress ORTHO/REHAB: Continue PT/OT Prophylaxis: Continue GI and DVT prophylaxis Code Status: Full Resuscitation Disposition: TBD Other: Total patient care time exceeds 35 minutes excluding all procedures. SNOW MATAMOROS PAC Nov 28, 2024 12:38
--- NOTE | 2024-11-28 17:44 | HMCSR ---
APPROVED REPORT EXAM: LIMITED Two-dimensional and M-mode echocardiogram. INDICATION ICD: Assess LV Function 2D Dimensions LVED Vol(simp.)94.8 mL LVES Vol(simp.)44.7 mL LVEF(%, simp.)53 % Left Ventricle Left ventricular cavity size is normal. Apical hypokinesis. LVEF is 50-55%. Pericardium No pericardial effusion. Other Information Quality : Technically Limited Conclusion Limited/follow up echo. Left ventricular cavity size is normal. LVEF is 50-55% with apical hypokinesis. No pericardial effusion.
[2024-11-29] VITALS (15 sets, daily range): BP systolic 76–137; BP diastolic 41–69; PULSE 77–91; RESP 16–20; TEMP 97.9–98.6; O2SAT 95–99
[2024-11-29 04:18] LABS: IMMATURE GRANULOCYTE ABSOLUTE 0.03 K/uL (0-1); NUCLEATED RED BLOOD CELLS 0.0 % (0.0-0.19); PLATELET COUNT (AUTO) 252 K/uL (130-400); RED BLOOD CELL COUNT(AUTO) 2.66 MIL/uL (4.50-6.20); RED CELL DISTRIBUTION WIDTH 14.6 % (11.0-15.5); WHITE BLOOD COUNT (AUTO) 5.4 K/uL (4.8-10.8)
[2024-11-29 04:38] LABS: ASPARTATE AMINOTRANSFERASE 20.0 U/L (10-37); CREATININE 1.0 mg/dL (0.5-1.3); GLOMERULAR FILTR. RATE CALC 82.0 mL/min (>90); GLUCOSE,RANDOM 87.0 mg/dL (70-105); SODIUM SERUM 144.0 mmol/L (136-145); TOTAL PROTEIN, SERUM 6.1 g/dL (6.0-8.3); UREA NITROGEN, BLOOD 12.0 mg/dL (7-18)
--- NOTE | 2024-11-29 11:08 | NUR ---
[facility] Per PN pt is now off pressors. Working w PT. Clinical updates faxed to [facility] as requested by Ryan.
--- NOTE | 2024-11-29 13:00 | NUR ---
TRANSFER REPORT GIVEN TO TALI COLES, PT WILL BE TRANSFERRED TO ROOM 222
--- NOTE | 2024-11-29 14:38 | PN ---
[facility] PROGRESS NOTE Date Patient Seen: Nov 29, 2024 Time of Visit: 14:35 Supervising Physician: [Dr Sincere Puri Primary Care Physician: Self Referral Outpatient Specialists: [ ] Inpatient Consults: PEG, Dr Jacobo, Dr Wellington , Dr Meza PROBLEM LIST: Cardiogenic shock MvCAD s/p CABG x 3+1 w/ redo on 11/07/24 Postop acute anemia requiring transfusion ELSA Hyperlipidemia Sclerotic nodule on the non coronary cusp on 2D echo Normal ventricular diastolic function with LVEF of 60-65% on 2D echo 11/05/24 Former smoker Graves disease Obesity INTERVAL HISTORY: Patient was seen and examined, all labs and imaging have been reviewed, patient is sitting comfortably out of bed to chair Patient is in good spirits, still continues to have positive orthostatics but no headache or dizziness No events overnight, afebrile Good saturations on room air His vital signs are stable Impella has been out for more than 24 Afebrile Plan: Follow CT surgeon recs Off epi for more than 24, Impella is out Cardiac diet Telemetry PT/OT when able Daily labs and chest x-ray in a.m. INOs Downgraded to PCCU Total care time 41 minutes, Time excludes any education or procedural time. REVIEW OF SYSTEMS: 12 point ROS reviewed with patient. Pertinent positives mentioned above. Otherwise negative. PHYSICAL EXAM: GENERAL: alert, weak, awake oriented x 3 HEENT: EOMI, Sclera non icteric, moist mucosa NECK: Supple, no JVD, trachea midline right IJ. Subclavian Impella 5.5 LUNGS: Rhonchi to right lower lobes. No wheezes HEART: Regular rate and rhythm. Normal S1 and S2, without murmurs mid incision line tenderness. Dressing clean dry and intact. ABD: Abdomen soft, nontender. Bowel sounds present EXT: No clubbing cyanosis or edema. Left femoral sheath. NEURO: Alert and oriented to person, follows commands Vital Signs (last 8hr) Date Time Temp Pulse Resp B/P (MAP) Pulse Ox O2 Delivery O2 Flow Rate FiO2 11/29/24 12:00 97.9 81 18 87/51 97 Room Air 11/29/24 11:18 82 18 N/A Room Air 21 11/29/24 11:17 82 20 11/29/24 08:00 95 Room Air* 0 21 11/29/24 08:00 98.4 91 16 96/69 95 Room Air LABS: Hematology Labs: Test 11/29/24 04:06 Range/Units White Blood Count 5.4 4.8-10.8 K/uL Red Blood Count 2.66 L 4.50-6.20 MIL/uL Hemoglobin 8.4 L 14.0-18.0 g/dL Hematocrit 26.9 L 42-54 % Mean Corpuscular Volume 101.1 H 79-99 fL Mean Corpuscular Hemoglobin 31.6 27.0-33.0 pg Mean Corpuscular Hemoglobin Concent 31.2 L 32.0-36.0 g/dL Red Cell Distribution Width 14.6 11.0-15.5 % Platelet Count 252 130-400 K/uL Mean Platelet Volume 9.6 7.5-10.5 fL Immature Granulocyte % (Auto) 0.6 0-1 % Neutrophils (%) (Auto) 64.1 40.0-77.0 % Lymphocytes (%) (Auto) 19.3 L 21.0-51.0 % Monocytes (%) (Auto) 9.8 3.0-13.0 % Eosinophils (%) (Auto) 5.3 0.0-8.0 % Basophils (%) (Auto) 0.9 0.0-5.0 % Neutrophils # (Auto) 3.5 1.8-7.7 K/uL Lymphocytes # (Auto) 1.1 1.0-4.8 K/uL Monocytes # (Auto) 0.5 0.1-1.0 K/uL Eosinophils # (Auto) 0.29 0.00-0.70 K/uL Basophils # (Auto) 0.05 0.00-0.20 K/uL Absolute Immature Granulocyte (auto 0.03 0-1 K/uL Nucleated Red Blood Cells 0.0 0.0-0.19 % Chemistry Labs: Test 11/29/24 04:06 Range/Units Sodium Level 144 136-145 mmol/L Potassium Level 3.6 3.5-5.1 mmol/L Chloride Level 107 101-111 mmol/L Carbon Dioxide Level 27 21-32 mmol/L Blood Urea Nitrogen 12 7-18 mg/dL Creatinine 1.0 0.5-1.3 mg/dL Glomerular Filtration Rate Calc 82 >90 mL/min Random Glucose 87 70-105 mg/dL Total Calcium 8.2 L 8.5-10.1 mg/dL Total Bilirubin 0.4 0.2-1.0 mg/dL Aspartate Amino Transf (AST/SGOT) 20 10-37 U/L Alanine Aminotransferase (ALT/SGPT) 14 12-78 U/L Alkaline Phosphatase 96 50-136 U/L Total Protein 6.1 6.0-8.3 g/dL Albumin 2.4 L 3.5-5.0 g/dL DIAGNOSTICS / RADIOLOGY RESULTS: [ ] PLAN NEURO: Minimize central acting medications as possible. Maintain fall precautions, adequate lighting during the day PULMONARY: Supplemental 02 as needed. Maintain aspiration precautions at all times CARDIOVASCULAR: Follow hemodynamics. Vital signs per facility protocol GI & NUTRITION: Continue with nutritional support. Continue stool softeners and laxatives as needed. KIDNEYS & ELECTROLYTES: Strict monitoring of intake, output and overall fluid balance. Avoid nephrotoxic medications to the extent possible. Medications to be dosed according to renal function. Monitor electrolytes and replace as needed ENDOCRINE: Maintain blood glucose between 100-180 at all times. Hypoglycemia protocol in place INFECTIOUS DISEASE: Trend temperature, WBC and procalcitonin level Follow cultures, deescalate antibiotics as soon as possible. Panculture if new onset fever ONCOLOGY/HEMATOLOGY/COAGULATION: Monitor for s/s of bleeding Monitor hemoglobin, coagulation studies as needed SKIN: Pressure ulcer prevention per facility protocol Specialty mattress ORTHO/REHAB: Continue PT/OT Prophylaxis: Continue GI and DVT prophylaxis Code Status: Full Resuscitation Disposition: SNOW MARTI PAC Nov 29, 2024 14:38
--- NOTE | 2024-11-29 15:26 | PN ---
[facility] PROGRESS NOTE Date of Service: Nov 29, 2024 Time of Service: 15:25 SUBJECTIVE: Mr. Valadez a 68-year-old male that was seen and examined today on 11/03/2024. Patient reports that he came to the emergency department with a chief complaint of chest pain. Onset was two or three years ago. He had similar repeated episodes months back which resolved on its own. Today's episode began at 11:00 a.m. Location is midsternal. Duration is on and off. Character is described as "neck someone is pushing a knuckle into the center of my chest. The chest pain did not radiate to shoulder, neck or jaw. "There was no alleviating factors. There was no aggravating factors. Patient reports that symptoms seemingly resolve on their own. He denies nausea, vomiting, fever and any other associated symptoms. Patient denies any associated shortness of breath. Patient has a past medical history of hyperlipidemia and Graves disease. He has been taking atorvastatin and Synthroid as his home medications. Today in the emergency department WBC 5.8, hemoglobin 12.9 platelets 197. His chemistries were within normal limits sodium 140, potassium 4.2, blood urea nitrogen 15 and creatinine 1.0. His electrocardiogram showed normal sinus rhythm. Patient will be admitted for further evaluation and related recommendations in Med-Surg. 11/04/24 Patient was evaluated at the bedside in ED-09. He reports that he is having chest pain that comes and goes. The patient reports having 2 episodes of chest pain in the last hour. He denies associated symptoms such as shortness of breath, palpitation, diaphoresis, dizziness, nausea or syncope. He does however complain of muscle pain in his lower limbs described as a dull aching discomfort that begins in the hip region that is worsened with movement. The patient complains of tingling and numbness in his feet bilaterally. No fever, chills or recent infection reported. Appetite and oral intake are normal. No other acute complaints at this time. On physical exam, a systolic murmur was auscultated over the aortic area. Bilateral carotid bruits are present. Lower extremities are cool to the touch with diminished pedal pulses. Patient reports bilateral leg muscle pain with exertion (suggestive of claudication), and chronic numbness and tingling in the feet. Patient reports recently quitting smoking tobacco for 2 months. He had a 1 pack a day smoking history since 1968. [facility] and denies following with a tuberculosis specialist. The patient says his chest pain has been ongoing for the past 3 years, and that it gets worse with exertion and at rest. 11/05/24 Patient was evaluated at the bedside room 231. He was hemodynamically stable. Hi symptoms has improved significantly. He doesn't complain of chest pain, shortness of breath and any other associated symptoms. Echocardiogram was done which revealed aortic valve: trileaflet, mildly sclerotic, and opens well. Carotid artery ultrasound showed Bilateral ICA/CCA ratio more than 4.0 suggesting more than 70% stenosis. 11/06/24 Patient was evaluated at the bedside room 231. He was hemodynamically stable. Hi symptoms has improved significantly. He doesn't complain of chest pain, shortness of breath and any other associated symptoms. In coronary CT angiography there is mixed calcified and noncalcified plaque in the proximal LAD with 80-90% stenosis. Left circumflex coronary artery: Normal caliber, nondominant and gives rise to a large OM branch. There is mixed calcified and noncalcified plaque in the mid LCx with 80-90% stenosis. CAD-RAD of 4B. Left heart catheterization with selective right and left coronary angiography was performed which showed critical left main disease. 11/07/24 Patient was evaluated at the bedside room 231. He was hemodynamically stable. He doesn't complain of chest pain, shortness of breath and any other associated symptoms. He complaints of headache 8/10 of intensity after the administration of Nitroglycerin. Cardiac catheterization demonstrated a very tight left main lesion and the patient is referred for surgical revascularization. As per Dr Meza: Surgery is planned for today. 11/08/24: Patient was seen and evaluated this morning at bedside. The patient is POD 1 s/p CABG. Patient is currently being managed in the ICU. The patients most recent ABG shows a pH of 7.43, ABG PCO2 47, ABG PO2 77.9, ABG HCO3 30.8. Recent ABG shows improving lactic acid, from 8 to 3.85. The patients chemistry reveals a sodium level 157, potassium level 3.4, creatinine 1.9, BUN 19, GFR 38, phosphorous 2.2. Liver enzymes are trending up, with an ALT level at 325 and an AST level at 869. The patients home medication of Synthroid has been restarted. Chest x-ray ordered today, results pending. We will continue to follow recommendations from critical care team, and cardiology. 11/09/2024: Patient is seen and evaluated in the room 213. The patient is POD 2 s/p CABG. Patient is currently being managed in the ICU. He is complaining of pain. His vitals are in the normal range. His Hb is 11.1, WBC is 19.1, Plt is 115, sodium is 154, chloride is 113, glucose is 122. His recent ABG shows that pH is 7.472, pO2 is 80.1, bicarb is 30.4, Hb is 11.4, lactic acid is 1.63. His chest X-ray on 11/08 showed improved aeration within the left perihilar and left basilar regions. As per nurse he is having intervention confusion, stopped lidocaine and they also weaning on pressors norepinephrine and epinephrine. The drain output from left anterior chest is 20ml, mediastinal lateral is 160ml, mediastinal mediastinal is 300ml, right anterior chest is 160 ml. We will continue to follow recommendations from critical care team, and cardiology. 11/10/2024: Patient was seen and evaluated this morning at bedside. The patient is POD 3 s/p CABG. Patient is currently being managed in the ICU. He is not having any symptoms today. His vitals are in the normal range. His labs are normal except for Hb is 10.1, WBC is 14.7, plt is 85, sodium is 147, AST is 156, ALT is 95, APTT is 25.5. ABG shows that his pH is 7.4, lactate is 1.22, bicarb is 31. The drain output from left anterior chest is 170 ml, mediastinal mediastinal is 130ml. We will continue to follow recommendations from critical care team, and cardiology. 11/11/2024: Patient was seen and evaluated this morning at bedside. The patient is POD 4 s/p CABG. He is not having any symptoms today. His vitals are in the normal range. His labs are normal except for hemoglobin is 9.7, WBC is 11.7, platelet is 106, glucose is 107, AST is 87, ALT is 62. ABG shows pH is 7.468, lactic acid is 1.03. We will continue to follow recommendations from critical care team, and cardiology. 11/12/2024: Patient was seen and evaluated in the room 218. The patient is POD 5 s/p CABG. He is having dizziness and ache in the left shoulder. His vitals are in the normal range. His labs are normal except for hemoglobin 9.6, platelets is 94, AST 75. ABG shows pH 7.487, lactic acid 1.2. Currently he is not on any pressors. Cardiovascular surgery tried to wean Impella. They decreased impella setting to P4 but his blood pressure is low so they went back to P5. Cardiovascular surgery also increased his midodrine dose to 15mg. His chest X- ray showed mild pulmonary vascular congestion. He had a bowel movement and good urine output. He is using incentive spirometry well. We will continue to follow recommendations from the critical Care team and Cardiology. 11/13/2024: Patient was seen and evaluated in the room 218. The patient is POD 6 s/p CABG. He is having dizziness and generalized ache. His vitals are in the normal range. His labs are normal except for Hb is 8.9, calcium is 7.4, glucose is 140. His chest x-ray showed that mild borderline cardiomegaly with median sternotomy with cardiac and aspiration procedure, support lines in satisfactory position, no evidence of airspace consolidation or pulmonary venous congestion. He is restarted on norepinephrine and epinephrine drip and impella at P5 as he is hypotensive and has bradycardia. The nurse told me that she will consult anesthesia for changing the arterial line as his line is not working. He is on heparin drip and off of lovenox. The drain output from left anterior chest is 260 ml, mediastinal mediastinal is 60ml. Hematology was consulted as he is in a hypercoagulable state. 11/14/2024: Patient was seen and evaluated in the room 218. The patient is POD 7 s/p CABG. His vital signs are in the normal range except for blood pressure is 88/64. His labs are normal except for hemoglobin is 8.8, APTT is 62.4, glucose is 133, calcium is 7.5, AST is 61. Chest X-ray showed mild cardiomegaly with median sternotomy with cardiac revascularization procedure, support lines are in satisfactory position. His impella is increased to P7 as he is hypotensive and bradycardic. He is on epinephrine. The drain output from left anterior chest is 80ml and from mediastinal mediastinal is 20ml. Hematology saw the patient and they recommended to start folic acid, vitamin B12, ordered SPEP, UPEP, free light chains. They think that the patient might be having hemolytic anemia which could be the reason for his graft clotting after surgery. 11/15/2024: He was evaluated at the bedside this morning. The patient is POD 8 s/p CABG. He is on Impella support with blood pressure 89/64 with map 72. Remarkable lab is for hemoglobin 9.2. Chest x-ray revealed mildly improved right lower lobe airspace opacity with stable cardiac support device and median sternotomy. His MPOA is encouraged to P8 and weaned off the pressors. Hematology recommending Tatiana test to rule out autoimmune hemolytic anemia. Hematology, CT surgery, critical care and cardiology on the board. Rest of the plan as discussed below. 11/16/2024: He was evaluated at the bedside this morning. The patient is POD 9 s/p CABG. Impella support has been weaned to P5 today. As per Dr. Khan, epi will be turned on at 0.03 mcg/kg/min and Impella performance level will be decreased to p4 tomorrow morning. Today, patient's BP is at 102/62, 79bpm and he is on 3L O2 nasal cannula. He is pending direct tatiana test, SPEP, UPEP and Free Light Chain assay as per hematology. His Hb from today is 8.9. Chest Tube drainage is at 201 ml. Hematology, CT surgery, critical care and cardiology on the board. 11/17/2024: He was evaluated at the bedside this morning. The patient is POD 10 s/p CABG. Impella support has been weaned to P4 today. Patient is currently on epinephrine 0.03 mcg/kg/minute as per Dr. Khan. Patient is receiving Lasix for diuresis and her urine output in the past 24 hours has been for 4050 mL. Mediastinal mediastinal chest tube drainage is 40 mL. Left anterior chest tube drainage is 104 mL. Hematology, CT surgery, critical care and cardiology on the board. 11/18/2024: He was evaluated at the bedside this morning. The patient is POD 11 s/p CABG. Impella support continues on P4 today. Plan is to wean off further tomorrow. Patient is currently on epinephrine 0.05 mcg/kg per minute. His blood pressure is running low, 88/48. Patient is receiving Lasix for diuresis and his urine output in the past 24 hours has been for 3400 mL. Mediastinal mediastinal chest tube drainage is 60 mL. Left anterior chest tube drainage is 140 mL. Hematology, CT surgery, critical care and cardiology on the board. As per Hematology recommendations, IV iron sucrose was ordered since iron panel showed low iron, and low percentage saturation. 11/19/2024: Patient was seen and evaluated at the bedside this morning. The patient is POD 12 s/p CABG. Impella support continues on P4 today and there is a plan to wean it off further, awaiting cardiothoracic surgery recommendations. Patient is currently maintained on epinephrine 0.03 mcg/kg per minute. His blood pressure is still running low, 92/44. He passed stool twice yesterday, after 7 days of constipation. Hematology, CT surgery, critical care and cardiology on the board. 11/20/2024: Patient was seen and evaluated at bedside this morning. He continues on P4 support. He is vitally stable with BP 101/56. WBCs are trending down from 12.4 K to 11.1 K. His TSH was elevated, 7.13. Free T3 test showed 1.64. We will continue to follow recommendations from Cardiothoracic surgery, Cardiology, and critical Care teams. 11/21/24: Patient was seen and evaluated at bedside this morning in room 218. The patient is POD 14 s/p CABG He continues on P4 support planning to be weaned off to lower settings if he continues to do better as per cardiothoracic surgery recommendations. Blood pressure on arterial line is 97/52 (67). WBCs are trending down from 11.1 to 10.0. His TSH was elevated, 7.13. Free T3 test showed 1.64. We will continue to follow recommendations from Cardiothoracic surgery, Cardiology, and critical Care teams. 11/22/24: Patient was seen and evaluated at bedside this morning in room 218. The patient is POD 15 s/p CABG. He continues on P4 support today as weaning off has been unsuccessful so far. He is currently on 0.08 epi support. He is undergoing diuresis as well. He reports no bowel movement for the past several days. We will continue to follow recommendations from Cardiothoracic surgery, Cardiology, and critical Care teams. 11/23/2024: Patient was seen and evaluated at the bedside this morning in room 218. This is postop day 16 status post CABG. He had no acute events overnight and was sitting comfortably in his chair during my visit. Patient continues on Impella P4 for support today. His vasopressor support is reducing today at 0.06 mcg. Patient denies chest pain, shortness of breath however has mild cough. Plan is to slowly taper off epinephrine and Impella. We will continue to follow recommendations from Cardiothoracic surgery, Cardiology and critical Care teams. 11/24/24: Patient was evaluated at the bedside in room 218. This is postop day 17 status post CABG. He had no acute events overnight and was sitting comfortably in his chair. Patient is weaned off epinephrine completely. Continues on Impella P3 support. Patient denies chest pain, shortness of breath, or anginal equivalents. All the chest tubes are out. We will continue to follow recommendations from Cardiothoracic surgery, Cardiology, critical Care team. 11/25/2024: Patient was evaluated at bedside in room 218. This is postop day 18 status post CABG. No acute events overnight and was sleeping comfortably in his chair and had good spirits. Patient has been off vasopressors for over 24 hours now and his blood pressures have been holding in 100s. He continues on Impella P3 support and the plan is for removal later today. Patient denied chest pain, shortness of breath or angina equivalents. We will continue to follow recommendations from Cardiothoracic surgery, Cardiology, and critical care team. 11/26/2024: Patient was evaluated at the bedside in room 218. His Impella was removed yesterday afternoon and has been resumed on Epinephrine at 0.06 mcg. Patient's systolic blood pressures have been soft and were in the range of 80- 90s. He denied chest pain, shortness of breath, dizziness, abdominal pain and headaches. Reported mild throat soreness and cough. We will continue to monitor for his recovery and follow cardiology, cardiothoracic, and critical care recommendations. 11/27/2024: Patient was evaluated at the bedside in room 218. Been weaned off Impella since 2 days and his maintaining blood pressure in the range of 80s to 90s. He continues to remain on epinephrine at 0.06 mcg and fludrocortisone was increased to 0.3 mg twice daily. Orthostatic vitals revealed severe drop in systolic blood pressure from 160-78 mm hg SBP. A repeat chest x-ray was ordered and if it will be unremarkable IV bolus of 250 mL of normal saline will be administered once to assess his orthostasis. We will continue management per Cardiothoracic surgery. 11/28/2024: Patient was seen and evaluated bedside in room 218. Case discussed with RN, no acute overnight events. Patient has been weaned off from epinephrine 0.06 mcg yesterday, his blood pressure fluctuating in 70s and 80s. We will continue fludrocortisone 0.3 mg p.o. daily, midodrine 15 mg t.i.d. we will continue management per Cardiothoracic surgery. 11/29/2024: Patient was seen and evaluated bedside in room 218. Case discussed with the RN, no acute events. Patient is totally weaned off from epinephrine since 2 days and currently maintained on fludrocortisone 0.03 mg daily and midodrine 15 mg three times daily. His blood pressures are maintaining between 70s to 90s/50s to 60. It was placed back on Daniel's catheter for urinary retention. A repeat echo performed yesterday showed LVEF of 50-55% with apical hypokinesia. Patient was downgraded from ICU. We will continue management per Cardiothoracic surgery. REVIEW OF SYSTEMS CONSTITUTIONAL: Pain in his left shoulder, improved No fever, chills, or night sweats. NEUROLOGICAL: No headache no sensory and motor deficit. CARDIOVASCULAR: Dizziness, improved Denies any exertional angina, dyspnea on exertion, palpitations. PULMONARY: Denies any shortness of breath, cough, phlegm/sputum, hemoptysis, pleuritic chest pain. GASTROINTESTINAL: Constipation. Denies nausea, vomiting. Denies pain, tenderness around the abdomen. GENITOURINARY: Denies frequency, urgency, nocturia, hematuria or incontinence. PHYSICAL EXAM GENERAL APPEARANCE: The patient is alert, awake and oriented and bedbound. NEUROLOGICAL: No sensory and motor deficits. CHEST: left anterior chest , mediastinal mediastinal drains are removed. Dress ing is clean Normal chest expansion. LUNGS: Normal vesicular breath sound. Absence of any rales, rhonchi or any wheezing. CARDIOVASCULAR: Systolic murmur heard over aortic area. Bilateral carotid bruits heard. No JVD. ABDOMEN: Soft nontender, and nondistended. There is no rebound, voluntary guarding, or rigidity. No abdominal bruit heard. GENITOURINARY: No suprapubic tenderness. No costovertebral angle tenderness. Daniel catheter in place. EXTREMITIES: Limbs are non-edematous. Vital Signs (last 8hr) Date Time Temp Pulse Resp B/P (MAP) Pulse Ox O2 Delivery O2 Flow Rate FiO2 11/29/24 12:00 97.9 81 18 87/51 97 Room Air 11/29/24 11:18 82 18 N/A Room Air 21 11/29/24 11:17 82 20 11/29/24 08:00 95 Room Air* 0 21 11/29/24 08:00 98.4 91 16 96/69 95 Room Air LABS: Laboratory: Test 11/29/24 04:06 Range/Units White Blood Count 5.4 4.8-10.8 K/uL Red Blood Count 2.66 L 4.50-6.20 MIL/uL Hemoglobin 8.4 L 14.0-18.0 g/dL Hematocrit 26.9 L 42-54 % Mean Corpuscular Volume 101.1 H 79-99 fL Mean Corpuscular Hemoglobin 31.6 27.0-33.0 pg Mean Corpuscular Hemoglobin Concent 31.2 L 32.0-36.0 g/dL Red Cell Distribution Width 14.6 11.0-15.5 % Platelet Count 252 130-400 K/uL Mean Platelet Volume 9.6 7.5-10.5 fL Immature Granulocyte % (Auto) 0.6 0-1 % Neutrophils (%) (Auto) 64.1 40.0-77.0 % Lymphocytes (%) (Auto) 19.3 L 21.0-51.0 % Monocytes (%) (Auto) 9.8 3.0-13.0 % Eosinophils (%) (Auto) 5.3 0.0-8.0 % Basophils (%) (Auto) 0.9 0.0-5.0 % Neutrophils # (Auto) 3.5 1.8-7.7 K/uL Lymphocytes # (Auto) 1.1 1.0-4.8 K/uL Monocytes # (Auto) 0.5 0.1-1.0 K/uL Eosinophils # (Auto) 0.29 0.00-0.70 K/uL Basophils # (Auto) 0.05 0.00-0.20 K/uL Absolute Immature Granulocyte (auto 0.03 0-1 K/uL Nucleated Red Blood Cells 0.0 0.0-0.19 % Sodium Level 144 136-145 mmol/L Potassium Level 3.6 3.5-5.1 mmol/L Chloride Level 107 101-111 mmol/L Carbon Dioxide Level 27 21-32 mmol/L Blood Urea Nitrogen 12 7-18 mg/dL Creatinine 1.0 0.5-1.3 mg/dL Glomerular Filtration Rate Calc 82 >90 mL/min Random Glucose 87 70-105 mg/dL Total Calcium 8.2 L 8.5-10.1 mg/dL Total Bilirubin 0.4 0.2-1.0 mg/dL Aspartate Amino Transf (AST/SGOT) 20 10-37 U/L Alanine Aminotransferase (ALT/SGPT) 14 12-78 U/L Alkaline Phosphatase 96 50-136 U/L Total Protein 6.1 6.0-8.3 g/dL Albumin 2.4 L 3.5-5.0 g/dL Current Medications Medications (Trade) Dose Ordered Sig/Brittany Route PRN Reason Start Time Stop Time Status Last Admin Dose Admin Acetaminophen (TYLenol 325MG TAB) 650 mg Q4H PRN PO Temp >38.3C(AFTER EXTUBATION) 11/07/24 14:00 12/07/24 13:59 Acetaminophen (TYLenol 325MG TAB) 650 mg Q6H PRN PO TEMPERATURE GREATER THAN 101.5 11/03/24 21:00 11/07/24 14:00 DC 11/06/24 23:00 650 MG Acetaminophen (TYLenol 325MG TAB) 650 mg Q6H PRN PO MILD PAIN (1-3) 11/07/24 14:00 12/07/24 13:59 11/29/24 06:38 650 MG Acetaminophen (TYLenol 650MG SUPPOSITORY) 650 mg Q4H PRN RC Temp >38.3C WHILE INTUBATED 11/07/24 14:00 12/07/24 13:59 Acetaminophen (acetaMINOPHEN) 1,000 mg Q6H IVPB 11/09/24 09:00 11/12/24 08:59 DC 11/12/24 02:11 1,000 MG Acetaminophen (acetaMINOPHEN) 1,000 mg Q6H6 IV 11/07/24 18:00 11/08/24 17:59 DC 11/08/24 18:08 1,000 MG Albumin Human 250 ml @ 0 mls/hr AD IV 11/23/24 09:00 11/28/24 08:59 DC 11/23/24 08:55 250 MLS/HR Albumin Human 250 ml @ 0 mls/hr AD PRN IV IF HEMODYNAMICALLY UNSTABLE 11/07/24 14:00 11/08/24 09:57 DC 11/08/24 09:57 125 MLS/HR Albumin Human 250 ml @ 0 mls/hr AD STAT IV 11/15/24 13:09 11/15/24 13:12 DC 11/15/24 13:28 250 MLS/HR Aminocaproic Acid 21511 mg/Sodium Chloride 310 ml @ 25 mls/hr AD IV 11/07/24 14:00 11/08/24 02:23 DC Aminocaproic Acid 59655 mg/Sodium Chloride 480 ml @ 0 mls/hr AD PRN IV BLEEDING CONTROL 11/07/24 11:00 11/07/24 14:03 DC Aspirin (Aspirin 81mg Ec Tab) 81 mg DAILY PO 11/04/24 09:00 12/04/24 08:59 11/29/24 08:37 81 MG Atorvastatin Calcium (LIPItor 40MG) 40 mg HS PO 11/03/24 21:00 11/03/24 20:40 DC Atorvastatin Calcium (LIPItor 40MG) 40 mg HS PO 11/03/24 21:00 11/09/24 07:45 DC 11/07/24 20:15 40 MG Atorvastatin Calcium (LIPItor 40MG) 40 mg HS PO 11/10/24 21:00 12/10/24 20:59 11/28/24 20:45 40 MG Calcium Gluconate (Calcium Gluc 1gm Vial) 1 gm AD PRN IV HYPOCALCEMIA 11/08/24 09:00 11/09/24 07:45 DC 11/08/24 16:36 1 GM Calcium Gluconate 1 gm/Sodium Chloride 60 ml @ 200 mls/hr AD PRN IV HYPOCALCEMIA 11/07/24 14:00 12/07/24 13:59 11/21/24 06:13 200 MLS/HR Cefazolin Sodium (Ancef) 2 gm ONCALL IVPB 11/06/24 22:00 11/07/24 14:00 DC Cefazolin Sodium (Ancef) 2 gm Q8H IVPB 11/07/24 19:00 11/08/24 11:01 DC 11/08/24 11:15 2 GM Clopidogrel Bisulfate (plaVIX 75MG) 75 mg DAILY PO 11/08/24 14:00 12/08/24 13:59 11/29/24 08:36 75 MG Dexmedetomidine/ Sodium Chloride (PRECEdex 400MCG/ 100ML-NS) 400 mcg PROTOCOL IV 11/07/24 14:00 12/07/24 13:59 Dextrose (D50w) 50 ml AD PRN IV HYPOGLYCEMIA PROTOCOL 11/07/24 14:00 12/07/24 13:59 Dextrose/Sodium Bicarbonate 1,025 ml @ 10 mls/hr Q24H IV 11/07/24 19:30 11/27/24 15:14 DC 11/27/24 09:05 10 MLS/HR Docusate Sodium (COLace 100MG CAP) 100 mg BID PO 11/07/24 21:00 11/08/24 10:11 DC 11/07/24 20:15 100 MG Docusate Sodium (COLace 100MG CAP) 100 mg BID PO 11/10/24 09:00 12/10/24 08:59 11/26/24 21:37 100 MG Docusate Sodium (COLace LIQUID 100MG/10ML) 100 mg BID NG 11/08/24 10:30 11/09/24 21:53 DC 11/09/24 20:47 100 MG Enoxaparin Sodium (Lovenox) 30 mg DAILY SQ 11/10/24 09:00 11/13/24 08:38 DC 11/12/24 09:03 30 MG Enoxaparin Sodium (Lovenox) 30 mg DAILY SQ 11/27/24 14:35 12/27/24 14:34 11/29/24 08:38 30 MG Enoxaparin Sodium (Lovenox) 40 mg DAILY SQ 11/04/24 09:00 11/07/24 13:38 DC 11/05/24 09:06 40 MG Epinephrine HCl 10 mg/Sodium Chloride 250 ml @ 13.948 mls/ hr AD PRN IV POST-OP CARDIOVASCULAR ORDERS 11/07/24 14:00 11/12/24 13:59 DC 11/09/24 19:48 7 MLS/HR Epinephrine HCl 10 mg/Sodium Chloride 250 ml @ 0 mls/hr AD PRN IV TITRATE 11/07/24 11:00 11/07/24 14:02 DC Epinephrine HCl 10 mg/Sodium Chloride 250 ml @ 0 mls/hr PROTOCOL IV 11/12/24 23:30 12/12/24 23:29 11/26/24 09:46 8.3 MLS/HR Famotidine (Pepcid 20mg Vial) 20 mg BID IV 11/07/24 21:00 11/08/24 08:59 DC 11/08/24 08:11 20 MG Famotidine (Pepcid 20mg Tab) 20 mg DAILY PO 11/04/24 09:00 11/07/24 13:38 DC 11/05/24 09:06 20 MG Fludrocortisone Acetate (Fludrocortisone Acetate) 0.1 mg BID PO 11/23/24 15:30 11/26/24 20:29 DC 11/26/24 09:51 0.1 MG Fludrocortisone Acetate (Fludrocortisone Acetate) 0.3 mg BID PO 11/26/24 21:00 11/27/24 10:04 DC Fludrocortisone Acetate (Fludrocortisone Acetate) 0.3 mg DAILY PO 11/27/24 10:30 12/27/24 10:29 11/29/24 08:37 0.3 MG Fludrocortisone Acetate (Fludrocortisone Acetate) 0.3 mg ONCE PO 11/26/24 21:00 11/26/24 23:59 DC 11/26/24 21:36 0.3 MG Folic Acid (FOLic ACID 1 MG TABLET) 1 mg DAILY PO 11/14/24 09:00 12/14/24 08:59 11/29/24 08:37 1 MG Furosemide (LASix 20MG TAB) 20 mg Q12H PO 11/09/24 09:00 11/24/24 15:51 DC 11/22/24 19:40 20 MG Furosemide (LASix 20MG TAB) 20 mg Q12H PO 11/25/24 09:00 11/27/24 14:34 DC 11/27/24 00:44 20 MG Furosemide (LASix 20MG VIAL) 20 mg Q12H IV 11/08/24 09:00 11/09/24 08:59 DC 11/08/24 20:23 20 MG Glucagon (Glucagon 1mg Kit) 1 mg AD PRN IM HYPOGLYCEMIA PROTOCOL 11/07/24 14:00 12/07/24 13:59 Guaifenesin/ Dextromethorphan (RobiTUSSin DM 200/20MG 10ML) 15 ml Q6H PRN PO COUGH 11/19/24 15:00 12/19/24 14:59 11/29/24 13:44 15 ML Heparin Sodium (Porcine) (HEParin 5,000 UNIT VIAL) *calculation based on ACTUAL B... AD PRN IV HEPARIN PROTOCOL 11/13/24 09:30 11/25/24 18:40 DC Heparin Sodium/ Dextrose 250 ml @ 0 mls/hr Q6H IV 11/13/24 09:30 11/25/24 18:40 DC 11/24/24 15:31 10.8 MLS/HR Hydralazine HCl (APRESOLine 20MG INJ) 10 mg Q6H PRN IV For:SBP above 160;DBP above 90 11/03/24 21:00 11/07/24 13:38 DC Insulin Human Regular 100 unit/ Sodium Chloride 100 ml @ 0 mls/hr AD IV 11/07/24 14:00 11/09/24 13:59 DC 11/08/24 12:30 4 MLS/HR Ipratropium [place] (AtrovENT UD) 0.5 MG [id number] IH 11/08/24 12:00 12/08/24 11:59 11/29/24 11:17 0.5 MG Lactulose (Constulose 20gm/ 30ml Udcup) 20 gm BID PRN PO CONSTIPATION 11/03/24 21:00 11/07/24 14:00 DC Lactulose (Constulose 20gm/ 30ml Udcup) 20 gm BID PRN PO CONSTIPATION 11/07/24 14:00 12/07/24 13:59 11/18/24 06:21 20 GM Levothyroxine Sodium (SYNTHroid 125MCG TAB) 125 mcg SYN PO 11/09/24 06:30 12/09/24 06:29 11/29/24 05:51 125 MCG Lidocaine HCl/ Dextrose 250 ml @ 0 mls/hr PROTOCOL PRN IV OTHER [SEE ORDER COMMENTS] 11/08/24 21:00 11/09/24 08:37 DC 11/08/24 21:15 7.5 MLS/HR Magnesium Hydroxide (Milk Of Magnesium 30ml) 30 ml DAILY PRN PO CONSTIPATION 11/07/24 14:00 12/07/24 13:59 Magnesium Sulfate 50 ml @ 12.5 mls/hr AD PRN IV MAG LEVEL LESS THAN 2.0 11/07/24 14:00 12/07/24 13:59 11/09/24 05:59 12.5 MLS/HR Metoprolol Tartrate (loprESSOR) 12.5 mg BID PO 11/09/24 09:00 11/11/24 09:39 DC Metoprolol Tartrate (loprESSOR) 50 mg BID PO 11/04/24 21:00 11/07/24 13:38 DC 11/06/24 20:38 50 MG Midodrine (PROAMatine 5 MG TABLET) 10 mg TID PO 11/09/24 21:00 11/11/24 06:58 DC 11/10/24 20:07 10 MG Midodrine (PROAMatine 5 MG TABLET) 15 mg TID PO 11/11/24 09:00 12/11/24 08:59 11/29/24 13:44 15 MG Montelukast Sodium (SinguLAIR) 10 mg HS PO 11/08/24 21:00 12/08/24 20:59 11/28/24 20:45 10 MG Morphine Sulfate (morPHINE 2MG SYG) 0.5 mg Q2H PRN IV MODERATE PAIN (4-6) 11/07/24 14:00 11/08/24 13:59 DC Morphine Sulfate (morPHINE 2MG SYG) 1 mg Q2H PRN IV SEVERE PAIN (7-10) 11/07/24 14:00 11/08/24 13:59 DC Morphine Sulfate (morPHINE 4MG SYG) 2 mg Q4H PRN IVP SEVERE PAIN (7-10) 11/03/24 21:00 11/07/24 13:38 DC 11/04/24 15:49 2 MG Nitroglycerin (Nitroglycerin 1gm Oint) 0.5 inch Q8H TD 11/03/24 21:00 11/07/24 13:38 DC 11/07/24 05:46 0.5 INCH Nitroglycerin/ Dextrose 0 ml @ 0 mls/hr AD IV 11/07/24 14:00 11/10/24 13:59 DC Norepinephrine Bitartrate 250 ml @ 0 mls/hr AD PRN IV TITRATE 11/07/24 11:00 11/07/24 14:02 DC Norepinephrine Bitartrate 250 ml @ 0 mls/hr AD PRN IV POST-OP CARDIOVASCULAR ORDERS 11/07/24 14:00 11/12/24 13:59 DC 11/09/24 17:09 5.6 MLS/HR Norepinephrine Bitartrate 250 ml @ 0 mls/hr PROTOCOL IV 11/12/24 18:30 12/12/24 18:29 11/13/24 08:42 2 MLS/HR Ondansetron HCl (zoFRAN 4MG INJ) 4 mg Q6H PRN IV NAUSEA/VOMITING 11/03/24 21:00 11/07/24 14:00 DC Ondansetron HCl (zoFRAN 4MG INJ) 4 mg Q6H PRN IV NAUSEA/VOMITING 11/07/24 14:00 12/07/24 13:59 11/09/24 21:50 4 MG Pantoprazole Sodium (PROTonix 40MG INJ) 40 mg BID IVP 11/08/24 09:00 12/08/24 08:59 11/29/24 08:35 40 MG Pharmacy Profile Note (Pharmacy Communication) 1 each ONCE MISC 11/13/24 09:00 11/13/24 08:57 DC Piperacillin Sod/ Tazobactam Sod (Zosyn 3.375gm+NS 50ml) 3.375 gm Q8H IV 11/09/24 10:00 11/09/24 09:38 DC Piperacillin Sod/ Tazobactam Sod (Zosyn 3.375gm+NS 50ml) 3.375 gm Q8H IV 11/09/24 10:00 11/19/24 09:59 DC 11/19/24 02:20 3.375 GM Polyethylene Glycol (MIRalax 3350 17 GM POWD.PACK) 17 gm DAILY PO 11/09/24 09:00 12/09/24 08:59 11/23/24 08:48 17 GM Potassium Phosphate 250 ml @ 42 mls/hr AD PRN IV LOW PHOS LEVEL 11/07/24 14:00 12/07/24 13:59 11/08/24 07:22 42 MLS/HR Potassium Chloride 100 ml @ 100 mls/hr AD PRN IV HYPOKALEMIA 11/07/24 14:00 12/07/24 13:59 11/24/24 05:53 100 MLS/HR Potassium Chloride (K-Dur/Klor-Con 20meq) 20 meq AD PRN PO POTASSIUM PROTOCOL 11/14/24 00:30 12/14/24 00:29 11/26/24 18:30 20 MEQ Potassium Chloride (KCl 10% Elixir 20meq/15ml) 20 meq AD PRN PO POTASSIUM PROTOCOL 11/14/24 00:30 12/14/24 00:29 11/21/24 08:34 20 MEQ Propofol 100 ml @ 0 mls/hr AD PRN IV SEDATION 11/07/24 14:00 11/11/24 13:59 DC Sodium Bicarbonate (Sodium Bicarb 50meq 50ml Vial) 50 meq AD PRN IV OTHER[SEE DOSING INSTRUCTIONS] 11/07/24 14:00 11/10/24 13:59 DC 11/08/24 00:54 50 MEQ Sodium Chloride 250 ml @ 0 mls/hr Q0M IV 11/27/24 10:30 12/27/24 10:29 11/27/24 10:26 250 MLS/HR Sodium Chloride 250 ml @ 0 mls/hr Q0M IV 11/18/24 10:00 11/27/24 10:11 DC 11/18/24 10:13 250 MLS/HR Sodium Chloride 500 ml @ 0 mls/hr AD IV 11/07/24 14:00 12/07/24 13:59 11/10/24 00:41 3 MLS/HR Sodium Chloride 1,000 ml @ 10 mls/hr ONCE IV 11/07/24 14:00 11/08/24 13:59 DC 11/07/24 20:11 10 MLS/HR Sodium Chloride 1,000 ml @ 100 mls/hr Q10H IV 11/06/24 12:30 11/06/24 15:29 DC Sodium Chloride (NS Flush 10ml) 10 ml Q8H PRN IVP IV LINE FLUSH 11/07/24 14:00 12/07/24 13:59 11/29/24 13:45 10 ML Sodium Chloride (Normal Saline Flush) 10 ml TID IV 11/28/24 09:00 12/28/24 08:59 11/28/24 14:56 10 ML Sucralfate (Carafate) 1 gm TID PO 11/08/24 21:00 11/27/24 15:14 DC 11/27/24 14:49 1 GM Tamsulosin HCl (FloMAX) 0.4 mg DAILY PO 11/28/24 21:00 12/28/24 20:59 11/29/24 08:37 0.4 MG Tramadol HCl (UltRAM) 25 mg Q6H PRN PO MODERATE PAIN (4-6) 11/07/24 14:00 11/09/24 08:37 DC Tramadol HCl (UltRAM) 50 mg Q6H PRN PO SEVERE PAIN (7-10) 11/07/24 14:00 11/09/24 08:37 DC 11/08/24 23:30 50 MG Vitamin B Complex (Vitamin B-12) 1,000 mcg DAILY IM 11/07/24 09:00 11/13/24 08:59 DC 11/12/24 09:03 1,000 MCG Vitamin B Complex (Vitamin B-12) 1,000 mcg DAILY PO 11/14/24 09:00 12/14/24 08:59 11/29/24 08:37 1,000 MCG DIAGNOSTICS / RADIOLOGY: [ ] PATIENT: CLARE VALADEZ MR#: [id number] : 1955 SEX: M AGE: 69 LOCATION: [facility] ORDER 7 STATUS: ADM IN REPORT#: [id number] SERVICE 6 REASON: Assess the EF ORDERING PHYSICIAN: ANIBAL THORNE MD PROCEDURE: ECHO FU LD - ECHO 2-D F/U-LTD APPROVED REPORT EXAM: LIMITED Two-dimensional and M-mode echocardiogram. INDICATION ICD: Assess LV Function 2D Dimensions LVED Vol(simp.) 94.8 mL LVES Vol(simp.) 44.7 mL LVEF(%, simp.) 53 % Left Ventricle Left ventricular cavity size is normal. Apical hypokinesis. LVEF is 50-55%. Pericardium No pericardial effusion. Other Information Quality : Technically Limited Conclusion Limited/follow up echo. Left ventricular cavity size is normal. LVEF is 50-55% with apical hypokinesis. No pericardial effusion. DICTATED BY: KELVIN MARTINEZ MD DATE: 11/28/24 1419 ELECTRONICALLY SIGNED BY: KELVIN MARTINEZ MD DATE: 11/28/24 6372 ASSESSMENT: Coronary artery disease, POA, s/p CABG 3v and redo sternotomy with redo of graft failure now s/p CABG with 4v Postop acute anemia requiring transfusion Acute kidney injury Hyperlipidemia, POA Hypothyroidism, POA Peripheral artery disease, suspected Carotid artery stenosis PLAN: Coronary artery disease, POA s/p CABG 3v and redo sternotomy with redo of graft failure now s/p CABG with 4v * Continue aspirin 81 mg p.o. and Plavix daily * Supplemental oxygen as needed to maintain SpO2 greater than 94% * Echocardiogram was done which revealed aortic valve: trileaflet, mildly sclerotic, and opens well. A repeat echocardiogram on 11/25/2024 showed LVEF which is difficult to assess due to arrhythmia but estimated at 40-45%. * In coronary CT angiography there is mixed calcified and noncalcified plaque in the proximal LAD with 80-90% stenosis. Left circumflex coronary artery: Normal caliber, nondominant and gives rise to a large OM branch. There is mixed calcified and noncalcified plaque in the mid LCx with 80-90% stenosis. * Left heart catheterization with selective right and left coronary angiography was performed which showed critical left main disease. Severe ostial RCA stenosis. 11/06/24 * Cardiac catheterization demonstrated a very tight left main lesion and the patient is referred for surgical revascularization. * Patient is POD 21 S/P CABG, patient is being managed in the ICU per protocol. * Off impella since 11/25/2024 and discontinue from epinephrine since 11/27/24 * Continue fludrocortisone 0.3 mg once daily as per cardiothoracic recommendations * We will continue to follow Cardiology and critical care recommendations. Peripheral vascular disease, suspected * Patient has history of exertional bilateral leg pain * Diminished peripheral pulses * A SERA has been ordered due to the patients complaint of bilateral lower extremity claudication, and numbness/tingling in bilateral lower extremities. * Clear aspirin 81 mg daily and statin 40mg * Encouraged supervised exercise therapy for claudication * Counseled on continued smoking cessation 11/04/24 Peripheral Neuropathy * Vitamin B12 has been ordered to rule out peripheral neuropathy.on 11/06/24, 11/17/24 * Complained of numbness and tingling in his limbs. * Vitamin B12 level was measured which showed [id number]. * Patient has been started on vitamin B12 supplement 1000 mcg for 6 days. Carotid artery stenosis * Presence of bilateral carotid bruit on exam, suspicion for significant stenosis * Risk factor modification: Smoking cessation, BP control, glycemic control. 11/04/24 * Carotid artery ultrasound showed Bilateral ICA/CCA ratio more than 4.0 suggesting more than 70% stenosis. 11/05/24 * Cardiology recommended CT/MR angiogram when stable from surgical standpoint Hyperlipidemia * Continue home statin therapy atorvastatin 40 mg * Reinforce low-cholesterol, heart healthy diet (limit saturated fats, increase fiber, fruits and vegetables) * Encouraged regular physical activity as tolerated * Monitor lipid panel * Outpatient follow up with PCP/Cardiology for long-term lipid management and cardiovascular risks reduction Supportive measures * Start patient on GI prophylaxis * DVT prophylaxis * Monitor morning labs CBC and BMP daily * He is on heart healthy diet Hypothyroidism * Continue home dose of levothyroxine at 125 mcg daily * TSH 7.13 and Free T3 1.64. Postop acute anemia requiring transfusion - Patient's hemoglobin on 11/18 is 9. Patient has normocytic anemia - His iron panel from 11/17 showed low iron and low percentage saturation. - As per Hematology recommendations, patient was given IV iron sucrose 11/18 - Hematology saw the patient and they recommended to start folic acid, vitamin B12, ordered SPEP, UPEP, free light chains. kappa light chain - 203, Lambda light chain -29.5. They think that the patient might be having hemolytic anemia which could be the reason for his graft clotting after surgery. - Follow up with morning CBC. ATTESTATION BY PHYSICIAN I have seen and examined the patient. I reviewed the documentation, medical decision making, and treatment plan as noted by the resident physician above. I agree with the findings and plan of care. ALISA POLLARD MD, HARSHAVARDHA MD Nov 29, 2024 15:26
--- NOTE | 2024-11-29 20:17 | PN ---
SUBJECTIVE: The patient is postop day #22 from an Impella-supported coronary artery bypass grafting. His Impella was removed this week and he has been doing well. He still has orthostatic hypotension. He is on a high dose of midodrine and a high dose of fludrocortisone. The patient does not get symptomatic with the drops in blood pressure. OBJECTIVE: VITAL SIGNS: Reveal him to be afebrile. His blood pressures are still on the lower side. HEENT: Normocephalic, atraumatic. He is off of oxygen. NECK: His left and right neck wounds are bandaged. HEART: S1 and S2 with a normal rate. LUNGS: Unlabored at rest off of oxygen, laying flat in bed. ABDOMEN: Reveals mild obesity with positive bowel sounds. EXTREMITIES: The patient's lower extremities appear adequate. ASSESSMENT AND PLAN: * Status post coronary artery bypass grafting. Continue aspirin, midodrine, and sternal precautions. Await placement in Rehab. * Hypercholesterolemia. Lipitor at bedtime. Low cholesterol, cardiac diet. * History of orthostatic hypotension. Continue midodrine and fludrocortisone. The patient may liberalize his salt intake too. * DVT prophylaxis. Lovenox 30 mg subQ q. day. * History of urinary retention. Continue Flomax 0.4 mg p.o. at bedtime. We can reattempt removal of the Daniel catheter in another day or 2. TID: [id number] RECEIPT: [id number]
[2024-11-30] VITALS (16 sets, daily range): BP systolic 80–94; BP diastolic 45–65; PULSE 72–99; RESP 16–20; TEMP 97.5–98.2; O2SAT 97–98
--- NOTE | 2024-11-30 02:56 | HMCIMG ---
EXAM: CR Chest, 1 View CLINICAL HISTORY: CABG postoperative. COMPARISON: 11/27/24. FINDINGS: LUNGS: Resolution of the homogeneous airspace opacity in the left perihilar region, representing an interval change since the prior study. Both lung gil remain clear with no evidence of consolidation, infiltrate, or effusion. PLEURAL SPACES: No pleural effusion or pneumothorax is seen. MEDIASTINUM: Cardiac size and mediastinal contours are within normal limits. Post-sternotomy changes are again noted. BONES: Visualized bony thorax shows no acute osseous abnormality. LINES / DEVICES: Right-sided peripherally inserted central catheter (PICC) line is in place with its tip at the cavoatrial junction, in a satisfactory position. IMPRESSION: 1. Resolution of previously noted left perihilar airspace opacity. 2. Right-sided PICC line with tip at the cavoatrial junction, appropriately positioned. 3. Post-sternotomy changes, stable. 4. Clear lung gil bilaterally without evidence of consolidation, infiltrate, or effusion. 5. No pleural effusion or pneumothorax. 6. Normal cardiac size and mediastinal contours. 7. No acute osseous abnormality of the visualised bony thorax. /John
[2024-11-30 03:45] LABS: IMMATURE GRANULOCYTE ABSOLUTE 0.02 K/uL (0-1); NUCLEATED RED BLOOD CELLS 0.0 % (0.0-0.19); PLATELET COUNT (AUTO) 257 K/uL (130-400); RED BLOOD CELL COUNT(AUTO) 2.72 MIL/uL (4.50-6.20); RED CELL DISTRIBUTION WIDTH 14.6 % (11.0-15.5); WHITE BLOOD COUNT (AUTO) 5.3 K/uL (4.8-10.8)
[2024-11-30 04:23] LABS: ASPARTATE AMINOTRANSFERASE 15.0 U/L (10-37); CREATININE 0.9 mg/dL (0.5-1.3); GLOMERULAR FILTR. RATE CALC 93.0 mL/min (>90); GLUCOSE,RANDOM 86.0 mg/dL (70-105); SODIUM SERUM 144.0 mmol/L (136-145); TOTAL PROTEIN, SERUM 6.2 g/dL (6.0-8.3); UREA NITROGEN, BLOOD 13.0 mg/dL (7-18)
--- NOTE | 2024-11-30 10:25 | PN ---
[facility] PROGRESS NOTE Date Patient Seen: Nov 30, 2024 Time of Visit: 10:23 Supervising Physician: Dr Vincent Lyman Primary Care Physician: Self Referral Outpatient Specialists: [ ] Inpatient Consults: PEG, Dr Jacobo, Dr Wellington , Dr Meza PROBLEM LIST: Cardiogenic shock MvCAD s/p CABG x 3+1 w/ redo on 11/07/24 Postop acute anemia requiring transfusion ELSA Hyperlipidemia Sclerotic nodule on the non coronary cusp on 2D echo Normal ventricular diastolic function with LVEF of 60-65% on 2D echo 11/05/24 Former smoker Graves disease Obesity INTERVAL HISTORY: Patient was seen and examined, all labs and imaging have been reviewed, patient is sitting comfortably out of bed to chair Patient pending placement with cardiac rehab Nursing reports no acute events overnight Patient afebrile Patient reporting no discomfort Off all pressors Vital signs are stable Tolerating his diet Plan: Follow CT surgeon recs Off epi and Impella out for greater than 48 hours Cardiac diet Telemetry PT/OT when able Daily labs and chest x-ray in a.m. INOs Case management working on cardiac rehab Total care time 39 minutes, Time excludes any education or procedural time. REVIEW OF SYSTEMS: 12 point ROS reviewed with patient. Pertinent positives mentioned above. Otherwise negative. PHYSICAL EXAM: GENERAL: alert, weak, awake oriented x 3 HEENT: EOMI, Sclera non icteric, moist mucosa NECK: Supple, no JVD, trachea midline right IJ. Subclavian Impella 5.5 LUNGS: Rhonchi to right lower lobes. No wheezes HEART: Regular rate and rhythm. Normal S1 and S2, without murmurs mid incision line tenderness. Dressing clean dry and intact. ABD: Abdomen soft, nontender. Bowel sounds present EXT: No clubbing cyanosis or edema. Left femoral sheath. NEURO: Alert and oriented to person, follows commands Vital Signs (last 8hr) Date Time Temp Pulse Resp B/P (MAP) Pulse Ox O2 Delivery O2 Flow Rate FiO2 11/30/24 07:55 97.9 77 16 87/52 95 Room Air 11/30/24 06:25 85 20 N/A Room Air 21 11/30/24 06:25 85 20 11/30/24 06:23 85 20 11/30/24 04:26 98.2 77 18 90/54 96 Room Air LABS: Hematology Labs: Test 11/30/24 03:13 Range/Units White Blood Count 5.3 4.8-10.8 K/uL Red Blood Count 2.72 L 4.50-6.20 MIL/uL Hemoglobin 8.6 L 14.0-18.0 g/dL Hematocrit 27.8 L 42-54 % Mean Corpuscular Volume 102.2 H 79-99 fL Mean Corpuscular Hemoglobin 31.6 27.0-33.0 pg Mean Corpuscular Hemoglobin Concent 30.9 L 32.0-36.0 g/dL Red Cell Distribution Width 14.6 11.0-15.5 % Platelet Count 257 130-400 K/uL Mean Platelet Volume 10.1 7.5-10.5 fL Immature Granulocyte % (Auto) 0.4 0-1 % Neutrophils (%) (Auto) 63.6 40.0-77.0 % Lymphocytes (%) (Auto) 20.7 L 21.0-51.0 % Monocytes (%) (Auto) 8.3 3.0-13.0 % Eosinophils (%) (Auto) 5.9 0.0-8.0 % Basophils (%) (Auto) 1.1 0.0-5.0 % Neutrophils # (Auto) 3.4 1.8-7.7 K/uL Lymphocytes # (Auto) 1.1 1.0-4.8 K/uL Monocytes # (Auto) 0.4 0.1-1.0 K/uL Eosinophils # (Auto) 0.31 0.00-0.70 K/uL Basophils # (Auto) 0.06 0.00-0.20 K/uL Absolute Immature Granulocyte (auto 0.02 0-1 K/uL Nucleated Red Blood Cells 0.0 0.0-0.19 % Red Blood Cell Morphology See comments Chemistry Labs: Test 11/30/24 03:13 Range/Units Sodium Level 144 136-145 mmol/L Potassium Level 3.4 L 3.5-5.1 mmol/L Chloride Level 107 101-111 mmol/L Carbon Dioxide Level 26 21-32 mmol/L Blood Urea Nitrogen 13 7-18 mg/dL Creatinine 0.9 0.5-1.3 mg/dL Glomerular Filtration Rate Calc 93 >90 mL/min Random Glucose 86 70-105 mg/dL Total Calcium 8.2 L 8.5-10.1 mg/dL Total Bilirubin 0.4 0.2-1.0 mg/dL Aspartate Amino Transf (AST/SGOT) 15 10-37 U/L Alanine Aminotransferase (ALT/SGPT) 12 12-78 U/L Alkaline Phosphatase 96 50-136 U/L Total Protein 6.2 6.0-8.3 g/dL Albumin 2.4 L 3.5-5.0 g/dL DIAGNOSTICS / RADIOLOGY RESULTS: [ ] PLAN NEURO: Minimize central acting medications as possible. Maintain fall precautions, adequate lighting during the day PULMONARY: Supplemental 02 as needed. Maintain aspiration precautions at all times CARDIOVASCULAR: Follow hemodynamics. Vital signs per facility protocol GI & NUTRITION: Continue with nutritional support. Continue stool softeners and laxatives as needed. KIDNEYS & ELECTROLYTES: Strict monitoring of intake, output and overall fluid balance. Avoid nephrotoxic medications to the extent possible. Medications to be dosed according to renal function. Monitor electrolytes and replace as needed ENDOCRINE: Maintain blood glucose between 100-180 at all times. Hypoglycemia protocol in place INFECTIOUS DISEASE: Trend temperature, WBC and procalcitonin level Follow cultures, deescalate antibiotics as soon as possible. Panculture if new onset fever ONCOLOGY/HEMATOLOGY/COAGULATION: Monitor for s/s of bleeding Monitor hemoglobin, coagulation studies as needed SKIN: Pressure ulcer prevention per facility protocol Specialty mattress ORTHO/REHAB: Continue PT/OT Prophylaxis: Continue GI and DVT prophylaxis Code Status: Full Resuscitation Disposition: SNOW MARTI PAC Nov 30, 2024 10:25
--- NOTE | 2024-11-30 12:37 | PN ---
[facility] PROGRESS NOTE Date of Service: Nov 30, 2024 Time of Service: 12:37 SUBJECTIVE: Mr. Valadez a 68-year-old male that was seen and examined today on 11/03/2024. Patient reports that he came to the emergency department with a chief complaint of chest pain. Onset was two or three years ago. He had similar repeated episodes months back which resolved on its own. Today's episode began at 11:00 a.m. Location is midsternal. Duration is on and off. Character is described as "neck someone is pushing a knuckle into the center of my chest. The chest pain did not radiate to shoulder, neck or jaw. "There was no alleviating factors. There was no aggravating factors. Patient reports that symptoms seemingly resolve on their own. He denies nausea, vomiting, fever and any other associated symptoms. Patient denies any associated shortness of breath. Patient has a past medical history of hyperlipidemia and Graves disease. He has been taking atorvastatin and Synthroid as his home medications. Today in the emergency department WBC 5.8, hemoglobin 12.9 platelets 197. His chemistries were within normal limits sodium 140, potassium 4.2, blood urea nitrogen 15 and creatinine 1.0. His electrocardiogram showed normal sinus rhythm. Patient will be admitted for further evaluation and related recommendations in Med-Surg. 11/04/24 Patient was evaluated at the bedside in ED-09. He reports that he is having chest pain that comes and goes. The patient reports having 2 episodes of chest pain in the last hour. He denies associated symptoms such as shortness of breath, palpitation, diaphoresis, dizziness, nausea or syncope. He does however complain of muscle pain in his lower limbs described as a dull aching discomfort that begins in the hip region that is worsened with movement. The patient complains of tingling and numbness in his feet bilaterally. No fever, chills or recent infection reported. Appetite and oral intake are normal. No other acute complaints at this time. On physical exam, a systolic murmur was auscultated over the aortic area. Bilateral carotid bruits are present. Lower extremities are cool to the touch with diminished pedal pulses. Patient reports bilateral leg muscle pain with exertion (suggestive of claudication), and chronic numbness and tingling in the feet. Patient reports recently quitting smoking tobacco for 2 months. He had a 1 pack a day smoking history since 1968. The [facility] and denies following with a quantitative strategy analyst. The patient says his chest pain has been ongoing for the past 3 years, and that it gets worse with exertion and at rest. 11/05/24 Patient was evaluated at the bedside room 231. He was hemodynamically stable. Hi symptoms has improved significantly. He doesn't complain of chest pain, shortness of breath and any other associated symptoms. Echocardiogram was done which revealed aortic valve: trileaflet, mildly sclerotic, and opens well. Carotid artery ultrasound showed Bilateral ICA/CCA ratio more than 4.0 suggesting more than 70% stenosis. 11/06/24 Patient was evaluated at the bedside room 231. He was hemodynamically stable. Hi symptoms has improved significantly. He doesn't complain of chest pain, shortness of breath and any other associated symptoms. In coronary CT angiography there is mixed calcified and noncalcified plaque in the proximal LAD with 80-90% stenosis. Left circumflex coronary artery: Normal caliber, nondominant and gives rise to a large OM branch. There is mixed calcified and noncalcified plaque in the mid LCx with 80-90% stenosis. CAD-RAD of 4B. Left heart catheterization with selective right and left coronary angiography was performed which showed critical left main disease. 11/07/24 Patient was evaluated at the bedside room 231. He was hemodynamically stable. He doesn't complain of chest pain, shortness of breath and any other associated symptoms. He complaints of headache 8/10 of intensity after the administration of Nitroglycerin. Cardiac catheterization demonstrated a very tight left main lesion and the patient is referred for surgical revascularization. As per Dr Meza: Surgery is planned for today. 11/08/24: Patient was seen and evaluated this morning at bedside. The patient is POD 1 s/p CABG. Patient is currently being managed in the ICU. The patients most recent ABG shows a pH of 7.43, ABG PCO2 47, ABG PO2 77.9, ABG HCO3 30.8. Recent ABG shows improving lactic acid, from 8 to 3.85. The patients chemistry reveals a sodium level 157, potassium level 3.4, creatinine 1.9, BUN 19, GFR 38, phosphorous 2.2. Liver enzymes are trending up, with an ALT level at 325 and an AST level at 869. The patients home medication of Synthroid has been restarted. Chest x-ray ordered today, results pending. We will continue to follow recommendations from critical care team, and cardiology. 11/09/2024: Patient is seen and evaluated in the room 213. The patient is POD 2 s/p CABG. Patient is currently being managed in the ICU. He is complaining of pain. His vitals are in the normal range. His Hb is 11.1, WBC is 19.1, Plt is 115, sodium is 154, chloride is 113, glucose is 122. His recent ABG shows that pH is 7.472, pO2 is 80.1, bicarb is 30.4, Hb is 11.4, lactic acid is 1.63. His chest X-ray on 11/08 showed improved aeration within the left perihilar and left basilar regions. As per nurse he is having intervention confusion, stopped lidocaine and they also weaning on pressors norepinephrine and epinephrine. The drain output from left anterior chest is 20ml, mediastinal lateral is 160ml, mediastinal mediastinal is 300ml, right anterior chest is 160 ml. We will continue to follow recommendations from critical care team, and cardiology. 11/10/2024: Patient was seen and evaluated this morning at bedside. The patient is POD 3 s/p CABG. Patient is currently being managed in the ICU. He is not having any symptoms today. His vitals are in the normal range. His labs are normal except for Hb is 10.1, WBC is 14.7, plt is 85, sodium is 147, AST is 156, ALT is 95, APTT is 25.5. ABG shows that his pH is 7.4, lactate is 1.22, bicarb is 31. The drain output from left anterior chest is 170 ml, mediastinal mediastinal is 130ml. We will continue to follow recommendations from critical care team, and cardiology. 11/11/2024: Patient was seen and evaluated this morning at bedside. The patient is POD 4 s/p CABG. He is not having any symptoms today. His vitals are in the normal range. His labs are normal except for hemoglobin is 9.7, WBC is 11.7, platelet is 106, glucose is 107, AST is 87, ALT is 62. ABG shows pH is 7.468, lactic acid is 1.03. We will continue to follow recommendations from critical care team, and cardiology. 11/12/2024: Patient was seen and evaluated in the room 218. The patient is POD 5 s/p CABG. He is having dizziness and ache in the left shoulder. His vitals are in the normal range. His labs are normal except for hemoglobin 9.6, platelets is 94, AST 75. ABG shows pH 7.487, lactic acid 1.2. Currently he is not on any pressors. Cardiovascular surgery tried to wean Impella. They decreased impella setting to P4 but his blood pressure is low so they went back to P5. Cardiovascular surgery also increased his midodrine dose to 15mg. His chest X- ray showed mild pulmonary vascular congestion. He had a bowel movement and good urine output. He is using incentive spirometry well. We will continue to follow recommendations from the critical Care team and Cardiology. 11/13/2024: Patient was seen and evaluated in the room 218. The patient is POD 6 s/p CABG. He is having dizziness and generalized ache. His vitals are in the normal range. His labs are normal except for Hb is 8.9, calcium is 7.4, glucose is 140. His chest x-ray showed that mild borderline cardiomegaly with median sternotomy with cardiac and aspiration procedure, support lines in satisfactory position, no evidence of airspace consolidation or pulmonary venous congestion. He is restarted on norepinephrine and epinephrine drip and impella at P5 as he is hypotensive and has bradycardia. The nurse told me that she will consult anesthesia for changing the arterial line as his line is not working. He is on heparin drip and off of lovenox. The drain output from left anterior chest is 260 ml, mediastinal mediastinal is 60ml. Hematology was consulted as he is in a hypercoagulable state. 11/14/2024: Patient was seen and evaluated in the room 218. The patient is POD 7 s/p CABG. His vital signs are in the normal range except for blood pressure is 88/64. His labs are normal except for hemoglobin is 8.8, APTT is 62.4, glucose is 133, calcium is 7.5, AST is 61. Chest X-ray showed mild cardiomegaly with median sternotomy with cardiac revascularization procedure, support lines are in satisfactory position. His impella is increased to P7 as he is hypotensive and bradycardic. He is on epinephrine. The drain output from left anterior chest is 80ml and from mediastinal mediastinal is 20ml. Hematology saw the patient and they recommended to start folic acid, vitamin B12, ordered SPEP, UPEP, free light chains. They think that the patient might be having hemolytic anemia which could be the reason for his graft clotting after surgery. 11/15/2024: He was evaluated at the bedside this morning. The patient is POD 8 s/p CABG. He is on Impella support with blood pressure 89/64 with map 72. Remarkable lab is for hemoglobin 9.2. Chest x-ray revealed mildly improved right lower lobe airspace opacity with stable cardiac support device and median sternotomy. His MPOA is encouraged to P8 and weaned off the pressors. Hematology recommending Tatiana test to rule out autoimmune hemolytic anemia. Hematology, CT surgery, critical care and cardiology on the board. Rest of the plan as discussed below. 11/16/2024: He was evaluated at the bedside this morning. The patient is POD 9 s/p CABG. Impella support has been weaned to P5 today. As per Dr. Khan, epi will be turned on at 0.03 mcg/kg/min and Impella performance level will be decreased to p4 tomorrow morning. Today, patient's BP is at 102/62, 79bpm and he is on 3L O2 nasal cannula. He is pending direct tatiana test, SPEP, UPEP and Free Light Chain assay as per hematology. His Hb from today is 8.9. Chest Tube drainage is at 201 ml. Hematology, CT surgery, critical care and cardiology on the board. 11/17/2024: He was evaluated at the bedside this morning. The patient is POD 10 s/p CABG. Impella support has been weaned to P4 today. Patient is currently on epinephrine 0.03 mcg/kg/minute as per Dr. Khan. Patient is receiving Lasix for diuresis and her urine output in the past 24 hours has been for 4050 mL. Mediastinal mediastinal chest tube drainage is 40 mL. Left anterior chest tube drainage is 104 mL. Hematology, CT surgery, critical care and cardiology on the board. 11/18/2024: He was evaluated at the bedside this morning. The patient is POD 11 s/p CABG. Impella support continues on P4 today. Plan is to wean off further tomorrow. Patient is currently on epinephrine 0.05 mcg/kg per minute. His blood pressure is running low, 88/48. Patient is receiving Lasix for diuresis and his urine output in the past 24 hours has been for 3400 mL. Mediastinal mediastinal chest tube drainage is 60 mL. Left anterior chest tube drainage is 140 mL. Hematology, CT surgery, critical care and cardiology on the board. As per Hematology recommendations, IV iron sucrose was ordered since iron panel showed low iron, and low percentage saturation. 11/19/2024: Patient was seen and evaluated at the bedside this morning. The patient is POD 12 s/p CABG. Impella support continues on P4 today and there is a plan to wean it off further, awaiting cardiothoracic surgery recommendations. Patient is currently maintained on epinephrine 0.03 mcg/kg per minute. His blood pressure is still running low, 92/44. He passed stool twice yesterday, after 7 days of constipation. Hematology, CT surgery, critical care and cardiology on the board. 11/20/2024: Patient was seen and evaluated at bedside this morning. He continues on P4 support. He is vitally stable with BP 101/56. WBCs are trending down from 12.4 K to 11.1 K. His TSH was elevated, 7.13. Free T3 test showed 1.64. We will continue to follow recommendations from Cardiothoracic surgery, Cardiology, and critical Care teams. 11/21/24: Patient was seen and evaluated at bedside this morning in room 218. The patient is POD 14 s/p CABG He continues on P4 support planning to be weaned off to lower settings if he continues to do better as per cardiothoracic surgery recommendations. Blood pressure on arterial line is 97/52 (67). WBCs are trending down from 11.1 to 10.0. His TSH was elevated, 7.13. Free T3 test showed 1.64. We will continue to follow recommendations from Cardiothoracic surgery, Cardiology, and critical Care teams. 11/22/24: Patient was seen and evaluated at bedside this morning in room 218. The patient is POD 15 s/p CABG. He continues on P4 support today as weaning off has been unsuccessful so far. He is currently on 0.08 epi support. He is undergoing diuresis as well. He reports no bowel movement for the past several days. We will continue to follow recommendations from Cardiothoracic surgery, Cardiology, and critical Care teams. 11/23/2024: Patient was seen and evaluated at the bedside this morning in room 218. This is postop day 16 status post CABG. He had no acute events overnight and was sitting comfortably in his chair during my visit. Patient continues on Impella P4 for support today. His vasopressor support is reducing today at 0.06 mcg. Patient denies chest pain, shortness of breath however has mild cough. Plan is to slowly taper off epinephrine and Impella. We will continue to follow recommendations from Cardiothoracic surgery, Cardiology and critical Care teams. 11/24/24: Patient was evaluated at the bedside in room 218. This is postop day 17 status post CABG. He had no acute events overnight and was sitting comfortably in his chair. Patient is weaned off epinephrine completely. Continues on Impella P3 support. Patient denies chest pain, shortness of breath, or anginal equivalents. All the chest tubes are out. We will continue to follow recommendations from Cardiothoracic surgery, Cardiology, critical Care team. 11/25/2024: Patient was evaluated at bedside in room 218. This is postop day 18 status post CABG. No acute events overnight and was sleeping comfortably in his chair and had good spirits. Patient has been off vasopressors for over 24 hours now and his blood pressures have been holding in 100s. He continues on Impella P3 support and the plan is for removal later today. Patient denied chest pain, shortness of breath or angina equivalents. We will continue to follow recommendations from Cardiothoracic surgery, Cardiology, and critical care team. 11/26/2024: Patient was evaluated at the bedside in room 218. His Impella was removed yesterday afternoon and has been resumed on Epinephrine at 0.06 mcg. Patient's systolic blood pressures have been soft and were in the range of 80- 90s. He denied chest pain, shortness of breath, dizziness, abdominal pain and headaches. Reported mild throat soreness and cough. We will continue to monitor for his recovery and follow cardiology, cardiothoracic, and critical care recommendations. 11/27/2024: Patient was evaluated at the bedside in room 218. Been weaned off Impella since 2 days and his maintaining blood pressure in the range of 80s to 90s. He continues to remain on epinephrine at 0.06 mcg and fludrocortisone was increased to 0.3 mg twice daily. Orthostatic vitals revealed severe drop in systolic blood pressure from 160-78 mm hg SBP. A repeat chest x-ray was ordered and if it will be unremarkable IV bolus of 250 mL of normal saline will be administered once to assess his orthostasis. We will continue management per Cardiothoracic surgery. 11/28/2024: Patient was seen and evaluated bedside in room 218. Case discussed with RN, no acute overnight events. Patient has been weaned off from epinephrine 0.06 mcg yesterday, his blood pressure fluctuating in 70s and 80s. We will continue fludrocortisone 0.3 mg p.o. daily, midodrine 15 mg t.i.d. we will continue management per Cardiothoracic surgery. 11/29/2024: Patient was seen and evaluated bedside in room 218. Case discussed with the RN, no acute events. Patient is totally weaned off from epinephrine since 2 days and currently maintained on fludrocortisone 0.3 mg daily and midodrine 15 mg three times daily. His blood pressures are maintaining between 70s to 90s/50s to 60. It was placed back on Daniel's catheter for urinary retention. A repeat echo performed yesterday showed LVEF of 50-55% with apical hypokinesia. Patient was downgraded from ICU. We will continue management per Cardiothoracic surgery. 11/30/2024: Patient was seen and evaluated at bedside in room 222. Case discussed with the RN, no acute events. Patient still has soft blood pressures however maintains adequate tissue perfusion to vital organs. Patient continues on fludrocortisone 0.3 mg daily and midodrine 15 mg three times daily. Patient is pending inpatient cardiac rehabilitation at [facility]. Patient did not have bowel movements since the last 4 days despite being on docusate, MiraLax and lactulose. Today we added senna 1 tablet twice daily and we will consider increasing it to 4 times if constipation does not improve. We will continue management per Cardiothoracic surgery. REVIEW OF SYSTEMS CONSTITUTIONAL: Pain in his left shoulder, improved No fever, chills, or night sweats. NEUROLOGICAL: No headache no sensory and motor deficit. CARDIOVASCULAR: Dizziness, improved Denies any exertional angina, dyspnea on exertion, palpitations. PULMONARY: Denies any shortness of breath, cough, phlegm/sputum, hemoptysis, pleuritic chest pain. GASTROINTESTINAL: Constipation. Denies nausea, vomiting. Denies pain, tende rness around the abdomen. GENITOURINARY: Denies frequency, urgency, nocturia, hematuria or incontinence. PHYSICAL EXAM GENERAL APPEARANCE: The patient is alert, awake and oriented and bedbound. NEUROLOGICAL: No sensory and motor deficits. CHEST: left anterior chest , mediastinal mediastinal drains are removed. Dressing is clean Normal chest expansion. LUNGS: Normal vesicular breath sound. Absence of any rales, rhonchi or any wheezing. CARDIOVASCULAR: Systolic murmur heard over aortic area. Bilateral carotid bruits heard. No JVD. ABDOMEN: Soft nontender, and nondistended. There is no rebound, voluntary guarding, or rigidity. No abdominal bruit heard. GENITOURINARY: No suprapubic tenderness. No costovertebral angle tenderness. Daniel catheter in place. EXTREMITIES: Limbs are non-edematous. Vital Signs (last 8hr) Date Time Temp Pulse Resp B/P (MAP) Pulse Ox O2 Delivery O2 Flow Rate FiO2 11/30/24 11:55 97.7 91 16 88/65 97 Room Air 11/30/24 11:19 82 20 N/A Room Air 21 11/30/24 11:18 82 20 11/30/24 10:15 98 Room Air* 0 21 11/30/24 07:55 97.9 77 16 87/52 95 Room Air 11/30/24 06:25 85 20 N/A Room Air 21 11/30/24 06:25 85 20 11/30/24 06:23 85 20 LABS: Laboratory: Test 11/30/24 03:13 Range/Units White Blood Count 5.3 4.8-10.8 K/uL Red Blood Count 2.72 L 4.50-6.20 MIL/uL Hemoglobin 8.6 L 14.0-18.0 g/dL Hematocrit 27.8 L 42-54 % Mean Corpuscular Volume 102.2 H 79-99 fL Mean Corpuscular Hemoglobin 31.6 27.0-33.0 pg Mean Corpuscular Hemoglobin Concent 30.9 L 32.0-36.0 g/dL Red Cell Distribution Width 14.6 11.0-15.5 % Platelet Count 257 130-400 K/uL Mean Platelet Volume 10.1 7.5-10.5 fL Immature Granulocyte % (Auto) 0.4 0-1 % Neutrophils (%) (Auto) 63.6 40.0-77.0 % Lymphocytes (%) (Auto) 20.7 L 21.0-51.0 % Monocytes (%) (Auto) 8.3 3.0-13.0 % Eosinophils (%) (Auto) 5.9 0.0-8.0 % Basophils (%) (Auto) 1.1 0.0-5.0 % Neutrophils # (Auto) 3.4 1.8-7.7 K/uL Lymphocytes # (Auto) 1.1 1.0-4.8 K/uL Monocytes # (Auto) 0.4 0.1-1.0 K/uL Eosinophils # (Auto) 0.31 0.00-0.70 K/uL Basophils # (Auto) 0.06 0.00-0.20 K/uL Absolute Immature Granulocyte (auto 0.02 0-1 K/uL Nucleated Red Blood Cells 0.0 0.0-0.19 % Red Blood Cell Morphology See comments Sodium Level 144 136-145 mmol/L Potassium Level 3.4 L 3.5-5.1 mmol/L Chloride Level 107 101-111 mmol/L Carbon Dioxide Level 26 21-32 mmol/L Blood Urea Nitrogen 13 7-18 mg/dL Creatinine 0.9 0.5-1.3 mg/dL Glomerular Filtration Rate Calc 93 >90 mL/min Random Glucose 86 70-105 mg/dL Total Calcium 8.2 L 8.5-10.1 mg/dL Total Bilirubin 0.4 0.2-1.0 mg/dL Aspartate Amino Transf (AST/SGOT) 15 10-37 U/L Alanine Aminotransferase (ALT/SGPT) 12 12-78 U/L Alkaline Phosphatase 96 50-136 U/L Total Protein 6.2 6.0-8.3 g/dL Albumin 2.4 L 3.5-5.0 g/dL Current Medications Medications (Trade) Dose Ordered Sig/Brittany Route PRN Reason Start Time Stop Time Status Last Admin Dose Admin Acetaminophen (TYLenol 325MG TAB) 650 mg Q4H PRN PO Temp >38.3C(AFTER EXTUBATION) 11/07/24 14:00 12/07/24 13:59 Acetaminophen (TYLenol 325MG TAB) 650 mg Q6H PRN PO TEMPERATURE GREATER THAN 101.5 11/03/24 21:00 11/07/24 14:00 DC 11/06/24 23:00 650 MG Acetaminophen (TYLenol 325MG TAB) 650 mg Q6H PRN PO MILD PAIN (1-3) 11/07/24 14:00 12/07/24 13:59 11/29/24 06:38 650 MG Acetaminophen (TYLenol 650MG SUPPOSITORY) 650 mg Q4H PRN RC Temp >38.3C WHILE INTUBATED 11/07/24 14:00 12/07/24 13:59 Acetaminophen (acetaMINOPHEN) 1,000 mg Q6H IVPB 11/09/24 09:00 11/12/24 08:59 DC 11/12/24 02:11 1,000 MG Acetaminophen (acetaMINOPHEN) 1,000 mg Q6H6 IV 11/07/24 18:00 11/08/24 17:59 DC 11/08/24 18:08 1,000 MG Albumin Human 250 ml @ 0 mls/hr AD IV 11/23/24 09:00 11/28/24 08:59 DC 11/23/24 08:55 250 MLS/HR Albumin Human 250 ml @ 0 mls/hr AD PRN IV IF HEMODYNAMICALLY UNSTABLE 11/07/24 14:00 11/08/24 09:57 DC 11/08/24 09:57 125 MLS/HR Albumin Human 250 ml @ 0 mls/hr AD STAT IV 11/15/24 13:09 11/15/24 13:12 DC 11/15/24 13:28 250 MLS/HR Aminocaproic Acid 00640 mg/Sodium Chloride 310 ml @ 25 mls/hr AD IV 11/07/24 14:00 11/08/24 02:23 DC Aminocaproic Acid 37747 mg/Sodium Chloride 480 ml @ 0 mls/hr AD PRN IV BLEEDING CONTROL 11/07/24 11:00 11/07/24 14:03 DC Aspirin (Aspirin 81mg Ec Tab) 81 mg DAILY PO 11/04/24 09:00 12/04/24 08:59 11/30/24 10:06 81 MG Atorvastatin Calcium (LIPItor 40MG) 40 mg HS PO 11/03/24 21:00 11/03/24 20:40 DC Atorvastatin Calcium (LIPItor 40MG) 40 mg HS PO 11/03/24 21:00 11/09/24 07:45 DC 11/07/24 20:15 40 MG Atorvastatin Calcium (LIPItor 40MG) 40 mg HS PO 11/10/24 21:00 12/10/24 20:59 11/29/24 20:30 40 MG Calcium Gluconate (Calcium Gluc 1gm Vial) 1 gm AD PRN IV HYPOCALCEMIA 11/08/24 09:00 11/09/24 07:45 DC 11/08/24 16:36 1 GM Calcium Gluconate 1 gm/Sodium Chloride 60 ml @ 200 mls/hr AD PRN IV HYPOCALCEMIA 11/07/24 14:00 12/07/24 13:59 11/21/24 06:13 200 MLS/HR Cefazolin Sodium (Ancef) 2 gm ONCALL IVPB 11/06/24 22:00 11/07/24 14:00 DC Cefazolin Sodium (Ancef) 2 gm Q8H IVPB 11/07/24 19:00 11/08/24 11:01 DC 11/08/24 11:15 2 GM Clopidogrel Bisulfate (plaVIX 75MG) 75 mg DAILY PO 11/08/24 14:00 12/08/24 13:59 11/30/24 10:06 75 MG Dexmedetomidine/ Sodium Chloride (PRECEdex 400MCG/ 100ML-NS) 400 mcg PROTOCOL IV 11/07/24 14:00 12/07/24 13:59 Dextrose (D50w) 50 ml AD PRN IV HYPOGLYCEMIA PROTOCOL 11/07/24 14:00 12/07/24 13:59 Dextrose/Sodium Bicarbonate 1,025 ml @ 10 mls/hr Q24H IV 11/07/24 19:30 11/27/24 15:14 DC 11/27/24 09:05 10 MLS/HR Docusate Sodium (COLace 100MG CAP) 100 mg BID PO 11/07/24 21:00 11/08/24 10:11 DC 11/07/24 20:15 100 MG Docusate Sodium (COLace 100MG CAP) 100 mg BID PO 11/10/24 09:00 12/10/24 08:59 11/30/24 10:05 100 MG Docusate Sodium (COLace LIQUID 100MG/10ML) 100 mg BID NG 11/08/24 10:30 11/09/24 21:53 DC 11/09/24 20:47 100 MG Enoxaparin Sodium (Lovenox) 30 mg DAILY SQ 11/10/24 09:00 11/13/24 08:38 DC 11/12/24 09:03 30 MG Enoxaparin Sodium (Lovenox) 30 mg DAILY SQ 11/27/24 14:35 12/27/24 14:34 11/30/24 10:08 30 MG Enoxaparin Sodium (Lovenox) 40 mg DAILY SQ 11/04/24 09:00 11/07/24 13:38 DC 11/05/24 09:06 40 MG Epinephrine HCl 10 mg/Sodium Chloride 250 ml @ 13.948 mls/ hr AD PRN IV POST-OP CARDIOVASCULAR ORDERS 11/07/24 14:00 11/12/24 13:59 DC 11/09/24 19:48 7 MLS/HR Epinephrine HCl 10 mg/Sodium Chloride 250 ml @ 0 mls/hr AD PRN IV TITRATE 11/07/24 11:00 11/07/24 14:02 DC Epinephrine HCl 10 mg/Sodium Chloride 250 ml @ 0 mls/hr PROTOCOL IV 11/12/24 23:30 12/12/24 23:29 11/26/24 09:46 8.3 MLS/HR Famotidine (Pepcid 20mg Vial) 20 mg BID IV 11/07/24 21:00 11/08/24 08:59 DC 11/08/24 08:11 20 MG Famotidine (Pepcid 20mg Tab) 20 mg DAILY PO 11/04/24 09:00 11/07/24 13:38 DC 11/05/24 09:06 20 MG Fludrocortisone Acetate (Fludrocortisone Acetate) 0.1 mg BID PO 11/23/24 15:30 11/26/24 20:29 DC 11/26/24 09:51 0.1 MG Fludrocortisone Acetate (Fludrocortisone Acetate) 0.3 mg BID PO 11/26/24 21:00 11/27/24 10:04 DC Fludrocortisone Acetate (Fludrocortisone Acetate) 0.3 mg DAILY PO 11/27/24 10:30 12/27/24 10:29 11/30/24 10:07 0.3 MG Fludrocortisone Acetate (Fludrocortisone Acetate) 0.3 mg ONCE PO 11/26/24 21:00 11/26/24 23:59 DC 11/26/24 21:36 0.3 MG Folic Acid (FOLic ACID 1 MG TABLET) 1 mg DAILY PO 11/14/24 09:00 12/14/24 08:59 11/30/24 10:06 1 MG Furosemide (LASix 20MG TAB) 20 mg Q12H PO 11/09/24 09:00 11/24/24 15:51 DC 11/22/24 19:40 20 MG Furosemide (LASix 20MG TAB) 20 mg Q12H PO 11/25/24 09:00 11/27/24 14:34 DC 11/27/24 00:44 20 MG Furosemide (LASix 20MG VIAL) 20 mg Q12H IV 11/08/24 09:00 11/09/24 08:59 DC 11/08/24 20:23 20 MG Glucagon (Glucagon 1mg Kit) 1 mg AD PRN IM HYPOGLYCEMIA PROTOCOL 11/07/24 14:00 12/07/24 13:59 Guaifenesin/ Dextromethorphan (RobiTUSSin DM 200/20MG 10ML) 15 ml Q6H PRN PO COUGH 11/19/24 15:00 12/19/24 14:59 11/29/24 13:44 15 ML Heparin Sodium (Porcine) (HEParin 5,000 UNIT VIAL) *calculation based on ACTUAL B... AD PRN IV HEPARIN PROTOCOL 11/13/24 09:30 11/25/24 18:40 DC Heparin Sodium/ Dextrose 250 ml @ 0 mls/hr Q6H IV 11/13/24 09:30 11/25/24 18:40 DC 11/24/24 15:31 10.8 MLS/HR Hydralazine HCl (APRESOLine 20MG INJ) 10 mg Q6H PRN IV For:SBP above 160;DBP above 90 11/03/24 21:00 11/07/24 13:38 DC Insulin Human Regular 100 unit/ Sodium Chloride 100 ml @ 0 mls/hr AD IV 11/07/24 14:00 11/09/24 13:59 DC 11/08/24 12:30 4 MLS/HR Ipratropium Dexter (AtrovENT UD) 0.5 MG [id number] IH 11/08/24 12:00 12/08/24 11:59 11/30/24 11:18 0.5 MG Lactulose (Constulose 20gm/ 30ml Udcup) 20 gm BID PRN PO CONSTIPATION 11/03/24 21:00 11/07/24 14:00 DC Lactulose (Constulose 20gm/ 30ml Udcup) 20 gm BID PRN PO CONSTIPATION 11/07/24 14:00 12/07/24 13:59 11/30/24 10:18 20 GM Levothyroxine Sodium (SYNTHroid 125MCG TAB) 125 mcg SYN PO 11/09/24 06:30 12/09/24 06:29 11/30/24 05:52 125 MCG Lidocaine HCl/ Dextrose 250 ml @ 0 mls/hr PROTOCOL PRN IV OTHER [SEE ORDER COMMENTS] 11/08/24 21:00 11/09/24 08:37 DC 11/08/24 21:15 7.5 MLS/HR Magnesium Hydroxide (Milk Of Magnesium 30ml) 30 ml DAILY PRN PO CONSTIPATION 11/07/24 14:00 12/07/24 13:59 Magnesium Sulfate 50 ml @ 12.5 mls/hr AD PRN IV MAG LEVEL LESS THAN 2.0 11/07/24 14:00 12/07/24 13:59 11/09/24 05:59 12.5 MLS/HR Metoprolol Tartrate (loprESSOR) 12.5 mg BID PO 11/09/24 09:00 11/11/24 09:39 DC Metoprolol Tartrate (loprESSOR) 50 mg BID PO 11/04/24 21:00 11/07/24 13:38 DC 11/06/24 20:38 50 MG Midodrine (PROAMatine 5 MG TABLET) 10 mg TID PO 11/09/24 21:00 11/11/24 06:58 DC 11/10/24 20:07 10 MG Midodrine (PROAMatine 5 MG TABLET) 15 mg TID PO 11/11/24 09:00 12/11/24 08:59 11/30/24 10:06 15 MG Montelukast Sodium (SinguLAIR) 10 mg HS PO 11/08/24 21:00 12/08/24 20:59 11/29/24 20:30 10 MG Morphine Sulfate (morPHINE 2MG SYG) 0.5 mg Q2H PRN IV MODERATE PAIN (4-6) 11/07/24 14:00 11/08/24 13:59 DC Morphine Sulfate (morPHINE 2MG SYG) 1 mg Q2H PRN IV SEVERE PAIN (7-10) 11/07/24 14:00 11/08/24 13:59 DC Morphine Sulfate (morPHINE 4MG SYG) 2 mg Q4H PRN IVP SEVERE PAIN (7-10) 11/03/24 21:00 11/07/24 13:38 DC 11/04/24 15:49 2 MG Nitroglycerin (Nitroglycerin 1gm Oint) 0.5 inch Q8H TD 11/03/24 21:00 11/07/24 13:38 DC 11/07/24 05:46 0.5 INCH Nitroglycerin/ Dextrose 0 ml @ 0 mls/hr AD IV 11/07/24 14:00 11/10/24 13:59 DC Norepinephrine Bitartrate 250 ml @ 0 mls/hr AD PRN IV TITRATE 11/07/24 11:00 11/07/24 14:02 DC Norepinephrine Bitartrate 250 ml @ 0 mls/hr AD PRN IV POST-OP CARDIOVASCULAR ORDERS 11/07/24 14:00 11/12/24 13:59 DC 11/09/24 17:09 5.6 MLS/HR Norepinephrine Bitartrate 250 ml @ 0 mls/hr PROTOCOL IV 11/12/24 18:30 12/12/24 18:29 11/13/24 08:42 2 MLS/HR Ondansetron HCl (zoFRAN 4MG INJ) 4 mg Q6H PRN IV NAUSEA/VOMITING 11/03/24 21:00 11/07/24 14:00 DC Ondansetron HCl (zoFRAN 4MG INJ) 4 mg Q6H PRN IV NAUSEA/VOMITING 11/07/24 14:00 12/07/24 13:59 11/09/24 21:50 4 MG Pantoprazole Sodium (PROTonix 40MG INJ) 40 mg BID IVP 11/08/24 09:00 12/08/24 08:59 11/30/24 10:05 40 MG Pharmacy Profile Note (Pharmacy Communication) 1 each ONCE MISC 11/13/24 09:00 11/13/24 08:57 DC Piperacillin Sod/ Tazobactam Sod (Zosyn 3.375gm+NS 50ml) 3.375 gm Q8H IV 11/09/24 10:00 11/09/24 09:38 DC Piperacillin Sod/ Tazobactam Sod (Zosyn 3.375gm+NS 50ml) 3.375 gm Q8H IV 11/09/24 10:00 11/19/24 09:59 DC 11/19/24 02:20 3.375 GM Polyethylene Glycol (MIRalax 3350 17 GM POWD.PACK) 17 gm DAILY PO 11/09/24 09:00 12/09/24 08:59 11/30/24 10:07 17 GM Potassium Phosphate 250 ml @ 42 mls/hr AD PRN IV LOW PHOS LEVEL 11/07/24 14:00 12/07/24 13:59 11/08/24 07:22 42 MLS/HR Potassium Chloride 100 ml @ 100 mls/hr AD PRN IV HYPOKALEMIA 11/07/24 14:00 12/07/24 13:59 11/30/24 05:47 100 MLS/HR Potassium Chloride (K-Dur/Klor-Con 20meq) 20 meq AD PRN PO POTASSIUM PROTOCOL 11/14/24 00:30 12/14/24 00:29 11/26/24 18:30 20 MEQ Potassium Chloride (KCl 10% Elixir 20meq/15ml) 20 meq AD PRN PO POTASSIUM PROTOCOL 11/14/24 00:30 12/14/24 00:29 11/21/24 08:34 20 MEQ Propofol 100 ml @ 0 mls/hr AD PRN IV SEDATION 11/07/24 14:00 11/11/24 13:59 DC Sodium Bicarbonate (Sodium Bicarb 50meq 50ml Vial) 50 meq AD PRN IV OTHER[SEE DOSING INSTRUCTIONS] 11/07/24 14:00 11/10/24 13:59 DC 11/08/24 00:54 50 MEQ Sodium Chloride 250 ml @ 0 mls/hr Q0M IV 11/27/24 10:30 12/27/24 10:29 11/27/24 10:26 250 MLS/HR Sodium Chloride 250 ml @ 0 mls/hr Q0M IV 11/18/24 10:00 11/27/24 10:11 DC 11/18/24 10:13 250 MLS/HR Sodium Chloride 500 ml @ 0 mls/hr AD IV 11/07/24 14:00 12/07/24 13:59 11/10/24 00:41 3 MLS/HR Sodium Chloride 1,000 ml @ 10 mls/hr ONCE IV 11/07/24 14:00 11/08/24 13:59 DC 11/07/24 20:11 10 MLS/HR Sodium Chloride 1,000 ml @ 100 mls/hr Q10H IV 11/06/24 12:30 11/06/24 15:29 DC Sodium Chloride (NS Flush 10ml) 10 ml Q8H PRN IVP IV LINE FLUSH 11/07/24 14:00 12/07/24 13:59 11/30/24 10:08 10 ML Sodium Chloride (Normal Saline Flush) 10 ml TID IV 11/28/24 09:00 12/28/24 08:59 11/29/24 20:31 10 ML Sucralfate (Carafate) 1 gm TID PO 11/08/24 21:00 11/27/24 15:14 DC 11/27/24 14:49 1 GM Tamsulosin HCl (FloMAX) 0.4 mg DAILY PO 11/28/24 21:00 12/28/24 20:59 11/30/24 10:06 0.4 MG Tramadol HCl (UltRAM) 25 mg Q6H PRN PO MODERATE PAIN (4-6) 11/07/24 14:00 11/09/24 08:37 DC Tramadol HCl (UltRAM) 50 mg Q6H PRN PO SEVERE PAIN (7-10) 11/07/24 14:00 11/09/24 08:37 DC 11/08/24 23:30 50 MG Vitamin B Complex (Vitamin B-12) 1,000 mcg DAILY IM 11/07/24 09:00 11/13/24 08:59 DC 11/12/24 09:03 1,000 MCG Vitamin B Complex (Vitamin B-12) 1,000 mcg DAILY PO 11/14/24 09:00 12/14/24 08:59 11/30/24 10:06 1,000 MCG DIAGNOSTICS / RADIOLOGY: [ ] PATIENT: CLARE VALADEZ MR#: [id number] : 1955 SEX: M AGE: 69 LOCATION: 2DH ORDER 5 STATUS: ADM IN REPORT#: [id number] SERVICE 5 REASON: cabg post op ORDERING PHYSICIAN: KELVIN MARTINEZ MD PROCEDURE: CXR1VW - CHEST 1VW EXAM: CR Chest, 1 View CLINICAL HISTORY: CABG postoperative. COMPARISON: 11/27/24. FINDINGS: LUNGS: Resolution of the homogeneous airspace opacity in the left perihilar region, representing an interval change since the prior study. Both lung gil remain clear with no evidence of consolidation, infiltrate, or effusion. PLEURAL SPACES: No pleural effusion or pneumothorax is seen. MEDIASTINUM: Cardiac size and mediastinal contours are within normal limits. Post-sternotomy changes are again noted. BONES: Visualized bony thorax shows no acute osseous abnormality. LINES / DEVICES: Right-sided peripherally inserted central catheter (PICC) line is in place with its tip at the cavoatrial junction, in a satisfactory position. IMPRESSION: 1. Resolution of previously noted left perihilar airspace opacity. 2. Right-sided PICC line with tip at the cavoatrial junction, appropriately positioned. 3. Post-sternotomy changes, stable. 4. Clear lung gil bilaterally without evidence of consolidation, infiltrate, or effusion. 5. No pleural effusion or pneumothorax. 6. Normal cardiac size and mediastinal contours. 7. No acute osseous abnormality of the visualised bony thorax. /Niota DICTATED BY: MOLLY PATTERSON Jr., MD DATE: 11/30/24354 ELECTRONICALLY SIGNED BY: MOLLY PATTERSON Jr., MD DATE: 11/30/24354 ASSESSMENT: Coronary artery disease, POA, s/p CABG 3v and redo sternotomy with redo of graft failure now s/p CABG with 4v Postop acute anemia requiring transfusion Acute kidney injury Hyperlipidemia, POA Hypothyroidism, POA Peripheral artery disease, suspected Carotid artery stenosis PLAN: Coronary artery disease, POA s/p CABG 3v and redo sternotomy with redo of graft failure now s/p CABG with 4v * Continue aspirin 81 mg p.o. and Plavix daily * Supplemental oxygen as needed to maintain SpO2 greater than 94% * Echocardiogram was done which revealed aortic valve: trileaflet, mildly sclerotic, and opens well. A repeat echocardiogram on 11/25/2024 showed LVEF which is difficult to assess due to arrhythmia but estimated at 40-45%. * In coronary CT angiography there is mixed calcified and noncalcified plaque in the proximal LAD with 80-90% stenosis. Left circumflex coronary artery: Normal caliber, nondominant and gives rise to a large OM branch. There is mixed calcified and noncalcified plaque in the mid LCx with 80-90% stenosis. * Left heart catheterization with selective right and left coronary angiography was performed which showed critical left main disease. Severe ostial RCA stenosis. 11/06/24 * Cardiac catheterization demonstrated a very tight left main lesion and the patient is referred for surgical revascularization. * Patient is POD 22 S/P CABG, patient is being managed in the ICU per protocol. * Off impella since 11/25/2024 and discontinue from epinephrine since 11/27/24 * Continue fludrocortisone 0.3 mg once daily as per cardiothoracic recom mendations * We will continue to follow Cardiology and critical care recommendations. Peripheral vascular disease, suspected * Patient has history of exertional bilateral leg pain * Diminished peripheral pulses * A SERA has been ordered due to the patients complaint of bilateral lower extremity claudication, and numbness/tingling in bilateral lower extremities. * Clear aspirin 81 mg daily and statin 40mg * Encouraged supervised exercise therapy for claudication * Counseled on continued smoking cessation 11/04/24 Peripheral Neuropathy * Vitamin B12 has been ordered to rule out peripheral neuropathy.on 11/06/24, 11/17/24 * Complained of numbness and tingling in his limbs. * Vitamin B12 level was measured which showed [id number]. * Patient has been started on vitamin B12 supplement 1000 mcg for 6 days. Carotid artery stenosis * Presence of bilateral carotid bruit on exam, suspicion for significant stenosis * Risk factor modification: Smoking cessation, BP control, glycemic control. 11/04/24 * Carotid artery ultrasound showed Bilateral ICA/CCA ratio more than 4.0 suggesting more than 70% stenosis. 11/05/24 * Cardiology recommended CT/MR angiogram when stable from surgical standpoint Hyperlipidemia * Continue home statin therapy atorvastatin 40 mg * Reinforce low-cholesterol, heart healthy diet (limit saturated fats, increase fiber, fruits and vegetables) * Encouraged regular physical activity as tolerated * Monitor lipid panel * Outpatient follow up with PCP/Cardiology for long-term lipid management and cardiovascular risks reduction Supportive measures * Start patient on GI prophylaxis * DVT prophylaxis * Monitor morning labs CBC and BMP daily * He is on heart healthy diet Hypothyroidism * Continue home dose of levothyroxine at 125 mcg daily * TSH 7.13 and Free T3 1.64. Postop acute anemia requiring transfusion - Patient's hemoglobin on 11/18 is 9. Patient has normocytic anemia - His iron panel from 11/17 showed low iron and low percentage saturation. - As per Hematology recommendations, patient was given IV iron sucrose 11/18 - Hematology saw the patient and they recommended to start folic acid, vitamin B12, ordered SPEP, UPEP, free light chains. kappa light chain - 203, Lambda light chain -29.5. They think that the patient might be having hemolytic anemia which could be the reason for his graft clotting after surgery. - Follow up with morning CBC. ATTESTATION BY PHYSICIAN I have seen and examined the patient. I reviewed the documentation, medical decision making, and treatment plan as noted by the resident provider above. I agree with the findings and plan of care. Shawn Loera IV, MD, HARSHAVARDHA MD Nov 30, 2024 12:37
[2024-11-30] MEDS: SENNOSIDES 8.6 MG TABLET PO SCH (13:15)
[2024-11-30 15:14] LABS: ALBUMIN (IFE & ELECTROPHOR) 2.6 g/dL (2.9-4.4); ALBUMIN/GLOBULIN RATIO (IFE) 0.8 (0.7-1.7); ALPHA-1 (IFE & PEP) 0.4 g/dL (0.0-0.4); ALPHA-2 (IFE & PEP) 0.9 g/dL (0.4-1.0); BETA (IFE & ELP) 1.0 g/dL (0.7-1.3); GAMMA GLOBULINS (IFE & ELP) 1.0 g/dL (0.4-1.8); GLOBULIN TOTAL (IFE) 3.4 g/dL (2.2-3.9); IGA (IFE) 240 mg/dL (61-437); IGG (IMMUNOFIXATION) 875 mg/dL (603-1613); IGM (IMMUNOFIXATION) 334 mg/dL (20-172); IMMUNOFIXATION RESULT Note: (.); M-SPIKE (IEP) Not Observed g/dL (Not Observed)
--- NOTE | 2024-11-30 16:00 | PN ---
[facility] CARDIOLOGY PROGRESS NOTE Date Patient Seen: Nov 30, 2024 Time of Visit: 15:58 Interval History: No acute events overnight , blood pressure is stable , no cardiac symptoms or anginal equivalents , pending rehab placement., Physical Examination: GENERAL: No acute distress. weak , frail , deconditioned HEAD: Normal with no signs of head trauma. EYES: PERRLA, EOMI, conjunctiva and sclera normal. ENT: Hearing grossly intact, normal oropharynx. NECK: Supple without JVD. There is no tenderness, lymphadenopathy, or masses. No thyromegaly. Normal carotid upstrokes without bruits. LUNGS: Clear breath sounds bilaterally. No wheezes, or rhonchi.chest tubes are in HEART: Normal rate and rhythm. Normal S1 and S2 without murmurs, gallop or rub. VASC: Peripheral pulses +2 bilaterally. ABD: Bowel sounds normal, soft, nontender, no masses, no organomegaly. No audible bruits. : Not examined LYMPH: No lymphadenopathy noted. EXT: No clubbing, cyanosis or edema. SKIN: No rashes or lesions noted. NEURO: Awake, alert, and oriented x3. No focal sensory or strength deficits noted. Laboratory: [ ] Hematology Labs: Test 11/30/24 03:13 Range/Units White Blood Count 5.3 4.8-10.8 K/uL Red Blood Count 2.72 L 4.50-6.20 MIL/uL Hemoglobin 8.6 L 14.0-18.0 g/dL Hematocrit 27.8 L 42-54 % Mean Corpuscular Volume 102.2 H 79-99 fL Mean Corpuscular Hemoglobin 31.6 27.0-33.0 pg Mean Corpuscular Hemoglobin Concent 30.9 L 32.0-36.0 g/dL Red Cell Distribution Width 14.6 11.0-15.5 % Platelet Count 257 130-400 K/uL Mean Platelet Volume 10.1 7.5-10.5 fL Immature Granulocyte % (Auto) 0.4 0-1 % Neutrophils (%) (Auto) 63.6 40.0-77.0 % Lymphocytes (%) (Auto) 20.7 L 21.0-51.0 % Monocytes (%) (Auto) 8.3 3.0-13.0 % Eosinophils (%) (Auto) 5.9 0.0-8.0 % Basophils (%) (Auto) 1.1 0.0-5.0 % Neutrophils # (Auto) 3.4 1.8-7.7 K/uL Lymphocytes # (Auto) 1.1 1.0-4.8 K/uL Monocytes # (Auto) 0.4 0.1-1.0 K/uL Eosinophils # (Auto) 0.31 0.00-0.70 K/uL Basophils # (Auto) 0.06 0.00-0.20 K/uL Absolute Immature Granulocyte (auto 0.02 0-1 K/uL Nucleated Red Blood Cells 0.0 0.0-0.19 % Red Blood Cell Morphology See comments Chemistry Labs: Test 11/30/24 15:30 11/30/24 03:13 Range/Units Whole Blood Glucose 99 70-110 MG/DL Sodium Level 144 136-145 mmol/L Potassium Level 3.4 L 3.5-5.1 mmol/L Chloride Level 107 101-111 mmol/L Carbon Dioxide Level 26 21-32 mmol/L Blood Urea Nitrogen 13 7-18 mg/dL Creatinine 0.9 0.5-1.3 mg/dL Glomerular Filtration Rate Calc 93 >90 mL/min Random Glucose 86 70-105 mg/dL Total Calcium 8.2 L 8.5-10.1 mg/dL Total Bilirubin 0.4 0.2-1.0 mg/dL Aspartate Amino Transf (AST/SGOT) 15 10-37 U/L Alanine Aminotransferase (ALT/SGPT) 12 12-78 U/L Alkaline Phosphatase 96 50-136 U/L Total Protein 6.2 6.0-8.3 g/dL Albumin 2.4 L 3.5-5.0 g/dL Diagnostics / Radiology: [Copy/Paste Echos/Imaging Report here] Impression and Plan: Abnormal CT coronary angiogram 11/05/2024 demonstrating a CAD-RADs score of 4B mixed calcified and noncalcified plaque in the left main with 50% stenosis, 80- 90% stenosis in the proximal LAD and 80-90% stenosis in mid left circumflex Critical left main and ostial RCA stenosis by cardiac catheterization 11/06/2024 S/p CABG with initial graft failure converted to Impella supported redo (CHILD- LAD, SVG-OM2, SVG-RCA and SVG-LAD) on 11/07/[address] Meza LVEF of 60-65% by 2D echocardiogram 11/05/2024 Mild ischemic cardiomyopathy with an LVEF of 40-45% by 2D echocardiogram 11/12/2024 Bilateral ICA disease with >70% stenosis by Doppler on 11/04/2024 Transaminitis, improved Hyperlipidemia CAD s/p PTCA to unknown vessel approximately 30 years ago Ex-smoker of 1 PPD with cessation 2 months ago Graves disease S/p CABG with initial graft failure converted to Impella supported redo (CHILD- LAD, SVG-OM2, SVG-RCA and SVG-LAD) on 11/07/[address] Meza -currently denies any chest pain, palpitations, dyspnea or any other anginal equivalent -The patient was noted with severe orthostatic hypotension during PT on 11/23/2024 -current blood pressure average 120s. -Continue Midodrine 15mg TID and Florinef 0.1 mg every 12 hours -continue checking orthostatics every 12 hours -Impella has been successfully removed without complications -orthostatics have been negative, his systolic manual blood pressure is falsely low -keep on telemetry, monitor/replace electrolytes as needed -we will recommend focusing of the patient's symptoms and known her systolic blood pressure -avoid the use of beta-blockers due to soft blood pressures -Continue Aspirin 81 mg daily, Plavix 75 mg daily, Atorvastatin 40 mg q.h.s., -Continue management per Cardiothoracic surgery -PT/OT -Pending rehab placement Carotid artery disease Carotid US 11/05: Mild intimal thickening in the bilateral carotid arteries and t heir branches. Bilateral ICA/CCA ratio is more than 4.0 suggesting more than 70% stenosis. Raised velocities in the bilateral external and internal carotid arteries. -Recommend CT/MR angiogram when stable from surgical standpoint -Continue Aspirin 81 mg daily and Atorvastatin 40 mg q.h.s. Thank you for this consult cardiology will continue to follow along Gurvinder salazar MD ATTESTATION BY PHYSICIAN I have seen and examined the patient, reviewed the above documentation, participated in medical decision making, made necessary modifications, and agree with the treatment plan as documented by my mid-level provider above. MD JUAN Caldwell JAMES R MD Nov 30, 2024 16:00
[2024-12-01] VITALS (12 sets, daily range): BP systolic 67–112; BP diastolic 38–62; PULSE 75–89; RESP 16–20; TEMP 97.5–98.7; O2SAT 97–98
--- NOTE | 2024-12-01 02:04 | PN ---
SUBJECTIVE: Status post CABG, placement of Impella, long-term support with a coaxial pump, has been removed for 3 days. The patient remains hemodynamically stable. PLAN: 1. Hypotension. Continue midodrine. 2. Coronary artery disease. Continue aspirin and Plavix. 3. Disposition: Out of bed, ambulating, PT/OT, transfer to rehab. TID: [id number] RECEIPT: [id number]
[2024-12-01 05:19] LABS: IMMATURE GRANULOCYTE ABSOLUTE 0.02 K/uL (0-1); NUCLEATED RED BLOOD CELLS 0.0 % (0.0-0.19); PLATELET COUNT (AUTO) 232 K/uL (130-400); RED BLOOD CELL COUNT(AUTO) 2.84 MIL/uL (4.50-6.20); RED CELL DISTRIBUTION WIDTH 14.7 % (11.0-15.5); WHITE BLOOD COUNT (AUTO) 5.1 K/uL (4.8-10.8)
[2024-12-01 05:58] LABS: ASPARTATE AMINOTRANSFERASE 18.0 U/L (10-37); CREATININE 1.1 mg/dL (0.5-1.3); GLOMERULAR FILTR. RATE CALC 73.0 mL/min (>90); GLUCOSE,RANDOM 87.0 mg/dL (70-105); SODIUM SERUM 142.0 mmol/L (136-145); TOTAL PROTEIN, SERUM 6.3 g/dL (6.0-8.3); UREA NITROGEN, BLOOD 11.0 mg/dL (7-18)
--- NOTE | 2024-12-01 08:42 | PN ---
[facility] PROGRESS NOTE Date Patient Seen: Dec 01, 2024 Time of Visit: 08:41 Interval History: No acute events overnight , blood pressure is stable , no cardiac symptoms or anginal equivalents , cooperating with PT and OT , stable blood pressures pending rehab placement., Physical Examination: GENERAL: No acute distress. weak , frail , deconditioned HEAD: Normal with no signs of head trauma. EYES: PERRLA, EOMI, conjunctiva and sclera normal. ENT: Hearing grossly intact, normal oropharynx. NECK: Supple without JVD. There is no tenderness, lymphadenopathy, or masses. No thyromegaly. Normal carotid upstrokes without bruits. LUNGS: Clear breath sounds bilaterally. No wheezes, or rhonchi.chest tubes are in HEART: Normal rate and rhythm. Normal S1 and S2 without murmurs, gallop or rub. VASC: Peripheral pulses +2 bilaterally. ABD: Bowel sounds normal, soft, nontender, no masses, no organomegaly. No audibl e bruits. : Not examined LYMPH: No lymphadenopathy noted. EXT: No clubbing, cyanosis or edema. SKIN: No rashes or lesions noted. NEURO: Awake, alert, and oriented x3. No focal sensory or strength deficits noted. Laboratory: [ ] Hematology Labs: Test 12/01/24 04:33 11/30/24 03:13 Range/Units White Blood Count 5.1 4.8-10.8 K/uL Red Blood Count 2.84 L 4.50-6.20 MIL/uL Hemoglobin 8.9 L 14.0-18.0 g/dL Hematocrit 28.9 L 42-54 % Mean Corpuscular Volume 101.8 H 79-99 fL Mean Corpuscular Hemoglobin 31.3 27.0-33.0 pg Mean Corpuscular Hemoglobin Concent 30.8 L 32.0-36.0 g/dL Red Cell Distribution Width 14.7 11.0-15.5 % Platelet Count 232 130-400 K/uL Mean Platelet Volume 10.0 7.5-10.5 fL Immature Granulocyte % (Auto) 0.4 0-1 % Neutrophils (%) (Auto) 64.4 40.0-77.0 % Lymphocytes (%) (Auto) 20.6 L 21.0-51.0 % Monocytes (%) (Auto) 7.9 3.0-13.0 % Eosinophils (%) (Auto) 5.3 0.0-8.0 % Basophils (%) (Auto) 1.4 0.0-5.0 % Neutrophils # (Auto) 3.3 1.8-7.7 K/uL Lymphocytes # (Auto) 1.1 1.0-4.8 K/uL Monocytes # (Auto) 0.4 0.1-1.0 K/uL Eosinophils # (Auto) 0.27 0.00-0.70 K/uL Basophils # (Auto) 0.07 0.00-0.20 K/uL Absolute Immature Granulocyte (auto 0.02 0-1 K/uL Nucleated Red Blood Cells 0.0 0.0-0.19 % Red Blood Cell Morphology See comments Chemistry Labs: Test 12/01/24 04:33 11/30/24 15:30 Range/Units Sodium Level 142 136-145 mmol/L Potassium Level 3.8 3.5-5.1 mmol/L Chloride Level 107 101-111 mmol/L Carbon Dioxide Level 28 21-32 mmol/L Blood Urea Nitrogen 11 7-18 mg/dL Creatinine 1.1 0.5-1.3 mg/dL Glomerular Filtration Rate Calc 73 >90 mL/min Random Glucose 87 70-105 mg/dL Total Calcium 8.5 8.5-10.1 mg/dL Total Bilirubin 0.4 0.2-1.0 mg/dL Aspartate Amino Transf (AST/SGOT) 18 10-37 U/L Alanine Aminotransferase (ALT/SGPT) 13 12-78 U/L Alkaline Phosphatase 95 50-136 U/L Total Protein 6.3 6.0-8.3 g/dL Albumin 2.5 L 3.5-5.0 g/dL Whole Blood Glucose 99 70-110 MG/DL Diagnostics / Radiology: [Copy/Paste Echos/Imaging Report here] Impression and Plan: Abnormal CT coronary angiogram 11/05/2024 demonstrating a CAD-RADs score of 4B mixed calcified and noncalcified plaque in the left main with 50% stenosis, 80- 90% stenosis in the proximal LAD and 80-90% stenosis in mid left circumflex Critical left main and ostial RCA stenosis by cardiac catheterization 11/06/2024 S/p CABG with initial graft failure converted to Impella supported redo (CHILD-LAD, SVG-OM2, SVG-RCA and SVG-LAD) on 11/07/[address] Meza LVEF of 60-65% by 2D echocardiogram 11/05/2024 Mild ischemic cardiomyopathy with an LVEF of 40-45% by 2D echocardiogram 11/12/2024 Bilateral ICA disease with >70% stenosis by Doppler on 11/04/2024 Transaminitis, improved Hyperlipidemia CAD s/p PTCA to unknown vessel approximately 30 years ago Ex-smoker of 1 PPD with cessation 2 months ago Graves disease S/p CABG with initial graft failure converted to Impella supported redo (CHILD- LAD, SVG-OM2, SVG-RCA and SVG-LAD) on 11/07/[address] Meza -currently denies any chest pain, palpitations, dyspnea or any other anginal equivalent -The patient was noted with severe orthostatic hypotension during PT on 11/23/2024 -current blood pressure average 120s. -Continue Midodrine 15mg TID and Florinef 0.1 mg every 12 hours -continue checking orthostatics every 12 hours -Impella has been successfully removed without complications -orthostatics have been negative, his systolic manual blood pressure is falsely low -keep on telemetry, monitor/replace electrolytes as needed -we will recommend focusing of the patient's symptoms and known her systolic blood pressure -avoid the use of beta-blockers due to soft blood pressures -Continue Aspirin 81 mg daily, Plavix 75 mg daily, Atorvastatin 40 mg q.h.s., -Continue management per Cardiothoracic surgery -PT/OT -Pending rehab placement Carotid artery disease Carotid US 11/05: Mild intimal thickening in the bilateral carotid arteries and their branches. Bilateral ICA/CCA ratio is more than 4.0 suggesting more than 70% stenosis. Raised velocities in the bilateral external and internal carotid arteries. -Recommend CT/MR angiogram when stable from surgical standpoint -Continue Aspirin 81 mg daily and Atorvastatin 40 mg q.h.s. Thank you for this consult cardiology will continue to follow along Gurvinder salazar MD ATTESTATION BY PHYSICIAN I have seen and examined the patient, reviewed the above documentation, participated in medical decision making, made necessary modifications, and agree with the treatment plan as documented by my mid-level provider above. MD JUAN Caldwell JAMES R MD Dec 01, 2024 08:42
--- NOTE | 2024-12-01 09:21 | PN ---
[facility] PROGRESS NOTE Date of Service: Dec 01, 2024 Time of Service: : SUBJECTIVE: Mr. Valadez a 68-year-old male that was seen and examined today on 11/03/2024. Patient reports that he came to the emergency department with a chief complaint of chest pain. Onset was two or three years ago. He had similar repeated episodes months back which resolved on its own. Today's episode began at 11:00 a.m. Location is midsternal. Duration is on and off. Character is described as "neck someone is pushing a knuckle into the center of my chest. The chest pain did not radiate to shoulder, neck or jaw. "There was no alleviating factors. There was no aggravating factors. Patient reports that symptoms seemingly resolve on their own. He denies nausea, vomiting, fever and any other associated symptoms. Patient denies any associated shortness of breath. Patient has a past medical history of hyperlipidemia and Graves disease. He has been taking atorvastatin and Synthroid as his home medications. Today in the emergency department WBC 5.8, hemoglobin 12.9 platelets 197. His chemistries were within normal limits sodium 140, potassium 4.2, blood urea nitrogen 15 and creatinine 1.0. His electrocardiogram showed normal sinus rhythm. Patient will be admitted for further evaluation and related recommendations in Med-Surg. 11/04/24 Patient was evaluated at the bedside in ED-09. He reports that he is having chest pain that comes and goes. The patient reports having 2 episodes of chest pain in the last hour. He denies associated symptoms such as shortness of breath, palpitation, diaphoresis, dizziness, nausea or syncope. He does however complain of muscle pain in his lower limbs described as a dull aching discomfort that begins in the hip region that is worsened with movement. The patient complains of tingling and numbness in his feet bilaterally. No fever, chills or recent infection reported. Appetite and oral intake are normal. No other acute complaints at this time. On physical exam, a systolic murmur was auscultated over the aortic area. Bilateral carotid bruits are present. Lower extremities are cool to the touch with diminished pedal pulses. Patient reports bilateral leg muscle pain with exertion (suggestive of claudication), and chronic numbness and tingling in the feet. Patient reports recently quitting smoking tobacco for 2 months. He had a 1 pack a day smoking history since 1968. The [facility] and denies following with a comber tender. The patient says his chest pain has been ongoing for the past 3 years, and that it gets worse with exertion and at rest. 11/05/24 Patient was evaluated at the bedside room 231. He was hemodynamically stable. Hi symptoms has improved significantly. He doesn't complain of chest pain, shortness of breath and any other associated symptoms. Echocardiogram was done which revealed aortic valve: trileaflet, mildly sclerotic, and opens well. Carotid artery ultrasound showed Bilateral ICA/CCA ratio more than 4.0 suggesting more than 70% stenosis. 11/06/24 Patient was evaluated at the bedside room 231. He was hemodynamically stable. Hi symptoms has improved significantly. He doesn't complain of chest pain, shortness of breath and any other associated symptoms. In coronary CT angiography there is mixed calcified and noncalcified plaque in the proximal LAD with 80-90% stenosis. Left circumflex coronary artery: Normal caliber, nondominant and gives rise to a large OM branch. There is mixed calcified and noncalcified plaque in the mid LCx with 80-90% stenosis. CAD-RAD of 4B. Left heart catheterization with selective right and left coronary angiography was performed which showed critical left main disease. 11/07/24 Patient was evaluated at the bedside room 231. He was hemodynamically stable. He doesn't complain of chest pain, shortness of breath and any other associated symptoms. He complaints of headache 8/10 of intensity after the administration of Nitroglycerin. Cardiac catheterization demonstrated a very tight left main lesion and the patient is referred for surgical revascularization. As per Dr Meza: Surgery is planned for today. 11/08/24: Patient was seen and evaluated this morning at bedside. The patient is POD 1 s/p CABG. Patient is currently being managed in the ICU. The patients most recent ABG shows a pH of 7.43, ABG PCO2 47, ABG PO2 77.9, ABG HCO3 30.8. Recent ABG shows improving lactic acid, from 8 to 3.85. The patients chemistry reveals a sodium level 157, potassium level 3.4, creatinine 1.9, BUN 19, GFR 38, phosphorous 2.2. Liver enzymes are trending up, with an ALT level at 325 and an AST level at 869. The patients home medication of Synthroid has been restarted. Chest x-ray ordered today, results pending. We will continue to follow recommendations from critical care team, and cardiology. 11/09/2024: Patient is seen and evaluated in the room 213. The patient is POD 2 s/p CABG. Patient is currently being managed in the ICU. He is complaining of pain. His vitals are in the normal range. His Hb is 11.1, WBC is 19.1, Plt is 115, sodium is 154, chloride is 113, glucose is 122. His recent ABG shows that pH is 7.472, pO2 is 80.1, bicarb is 30.4, Hb is 11.4, lactic acid is 1.63. His chest X-ray on 11/08 showed improved aeration within the left perihilar and left basilar regions. As per nurse he is having intervention confusion, stopped lidocaine and they also weaning on pressors norepinephrine and epinephrine. The drain output from left anterior chest is 20ml, mediastinal lateral is 160ml, mediastinal mediastinal is 300ml, right anterior chest is 160 ml. We will continue to follow recommendations from critical care team, and cardiology. 11/10/2024: Patient was seen and evaluated this morning at bedside. The patient is POD 3 s/p CABG. Patient is currently being managed in the ICU. He is not having any symptoms today. His vitals are in the normal range. His labs are normal except for Hb is 10.1, WBC is 14.7, plt is 85, sodium is 147, AST is 156, ALT is 95, APTT is 25.5. ABG shows that his pH is 7.4, lactate is 1.22, bicarb is 31. The drain output from left anterior chest is 170 ml, mediastinal mediastinal is 130ml. We will continue to follow recommendations from critical care team, and cardiology. 11/11/2024: Patient was seen and evaluated this morning at bedside. The patient is POD 4 s/p CABG. He is not having any symptoms today. His vitals are in the normal range. His labs are normal except for hemoglobin is 9.7, WBC is 11.7, platelet is 106, glucose is 107, AST is 87, ALT is 62. ABG shows pH is 7.468, lactic acid is 1.03. We will continue to follow recommendations from critical care team, and cardiology. 11/12/2024: Patient was seen and evaluated in the room 218. The patient is POD 5 s/p CABG. He is having dizziness and ache in the left shoulder. His vitals are in the normal range. His labs are normal except for hemoglobin 9.6, platelets is 94, AST 75. ABG shows pH 7.487, lactic acid 1.2. Currently he is not on any pressors. Cardiovascular surgery tried to wean Impella. They decreased impella setting to P4 but his blood pressure is low so they went back to P5. Cardiovascular surgery also increased his midodrine dose to 15mg. His chest X- ray showed mild pulmonary vascular congestion. He had a bowel movement and good urine output. He is using incentive spirometry well. We will continue to follow recommendations from the critical Care team and Cardiology. 11/13/2024: Patient was seen and evaluated in the room 218. The patient is POD 6 s/p CABG. He is having dizziness and generalized ache. His vitals are in the normal range. His labs are normal except for Hb is 8.9, calcium is 7.4, glucose is 140. His chest x-ray showed that mild borderline cardiomegaly with median sternotomy with cardiac and aspiration procedure, support lines in satisfactory position, no evidence of airspace consolidation or pulmonary venous congestion. He is restarted on norepinephrine and epinephrine drip and impella at P5 as he is hypotensive and has bradycardia. The nurse told me that she will consult anesthesia for changing the arterial line as his line is not working. He is on heparin drip and off of lovenox. The drain output from left anterior chest is 260 ml, mediastinal mediastinal is 60ml. Hematology was consulted as he is in a hypercoagulable state. 11/14/2024: Patient was seen and evaluated in the room 218. The patient is POD 7 s/p CABG. His vital signs are in the normal range except for blood pressure is 88/64. His labs are normal except for hemoglobin is 8.8, APTT is 62.4, glucose is 133, calcium is 7.5, AST is 61. Chest X-ray showed mild cardiomegaly with median sternotomy with cardiac revascularization procedure, support lines are in satisfactory position. His impella is increased to P7 as he is hypotensive and bradycardic. He is on epinephrine. The drain output from left anterior chest is 80ml and from mediastinal mediastinal is 20ml. Hematology saw the patient and they recommended to start folic acid, vitamin B12, ordered SPEP, UPEP, free light chains. They think that the patient might be having hemolytic anemia which could be the reason for his graft clotting after surgery. 11/15/2024: He was evaluated at the bedside this morning. The patient is POD 8 s/p CABG. He is on Impella support with blood pressure 89/64 with map 72. Remarkable lab is for hemoglobin 9.2. Chest x-ray revealed mildly improved right lower lobe airspace opacity with stable cardiac support device and median sternotomy. His MPOA is encouraged to P8 and weaned off the pressors. Hematology recommending Tatiana test to rule out autoimmune hemolytic anemia. Hematology, CT surgery, critical care and cardiology on the board. Rest of the plan as discussed below. 11/16/2024: He was evaluated at the bedside this morning. The patient is POD 9 s/p CABG. Impella support has been weaned to P5 today. As per Dr. Khan, epi will be turned on at 0.03 mcg/kg/min and Impella performance level will be decreased to p4 tomorrow morning. Today, patient's BP is at 102/62, 79bpm and he is on 3L O2 nasal cannula. He is pending direct tatiana test, SPEP, UPEP and Free Light Chain assay as per hematology. His Hb from today is 8.9. Chest Tube drainage is at 201 ml. Hematology, CT surgery, critical care and cardiology on the board. 11/17/2024: He was evaluated at the bedside this morning. The patient is POD 10 s/p CABG. Impella support has been weaned to P4 today. Patient is currently on epinephrine 0.03 mcg/kg/minute as per Dr. Khan. Patient is receiving Lasix for diuresis and her urine output in the past 24 hours has been for 4050 mL. Mediastinal mediastinal chest tube drainage is 40 mL. Left anterior chest tube drainage is 104 mL. Hematology, CT surgery, critical care and cardiology on the board. 11/18/2024: He was evaluated at the bedside this morning. The patient is POD 11 s/p CABG. Impella support continues on P4 today. Plan is to wean off further tomorrow. Patient is currently on epinephrine 0.05 mcg/kg per minute. His blood pressure is running low, 88/48. Patient is receiving Lasix for diuresis and his urine output in the past 24 hours has been for 3400 mL. Mediastinal mediastinal chest tube drainage is 60 mL. Left anterior chest tube drainage is 140 mL. Hematology, CT surgery, critical care and cardiology on the board. As per Hematology recommendations, IV iron sucrose was ordered since iron panel showed low iron, and low percentage saturation. 11/19/2024: Patient was seen and evaluated at the bedside this morning. The patient is POD 12 s/p CABG. Impella support continues on P4 today and there is a plan to wean it off further, awaiting cardiothoracic surgery recommendations. Patient is currently maintained on epinephrine 0.03 mcg/kg per minute. His blood pressure is still running low, 92/44. He passed stool twice yesterday, after 7 days of constipation. Hematology, CT surgery, critical care and cardiology on the board. 11/20/2024: Patient was seen and evaluated at bedside this morning. He continues on P4 support. He is vitally stable with BP 101/56. WBCs are trending down from 12.4 K to 11.1 K. His TSH was elevated, 7.13. Free T3 test showed 1.64. We will continue to follow recommendations from Cardiothoracic surgery, Cardiology, and critical Care teams. 11/21/24: Patient was seen and evaluated at bedside this morning in room 218. The patient is POD 14 s/p CABG He continues on P4 support planning to be weaned off to lower settings if he continues to do better as per cardiothoracic surgery recommendations. Blood pressure on arterial line is 97/52 (67). WBCs are trending down from 11.1 to 10.0. His TSH was elevated, 7.13. Free T3 test showed 1.64. We will continue to follow recommendations from Cardiothoracic surgery, Cardiology, and critical Care teams. 11/22/24: Patient was seen and evaluated at bedside this morning in room 218. The patient is POD 15 s/p CABG. He continues on P4 support today as weaning off has been unsuccessful so far. He is currently on 0.08 epi support. He is undergoing diuresis as well. He reports no bowel movement for the past several days. We will continue to follow recommendations from Cardiothoracic surgery, Cardiology, and critical Care teams. 11/23/2024: Patient was seen and evaluated at the bedside this morning in room 218. This is postop day 16 status post CABG. He had no acute events overnight and was sitting comfortably in his chair during my visit. Patient continues on Impella P4 for support today. His vasopressor support is reducing today at 0.06 mcg. Patient denies chest pain, shortness of breath however has mild cough. Plan is to slowly taper off epinephrine and Impella. We will continue to follow recommendations from Cardiothoracic surgery, Cardiology and critical Care teams. 11/24/24: Patient was evaluated at the bedside in room 218. This is postop day 17 status post CABG. He had no acute events overnight and was sitting comfortably in his chair. Patient is weaned off epinephrine completely. Continues on Impella P3 support. Patient denies chest pain, shortness of breath, or anginal equivalents. All the chest tubes are out. We will continue to follow recommendations from Cardiothoracic surgery, Cardiology, critical Care team. 11/25/2024: Patient was evaluated at bedside in room 218. This is postop day 18 status post CABG. No acute events overnight and was sleeping comfortably in his chair and had good spirits. Patient has been off vasopressors for over 24 hours now and his blood pressures have been holding in 100s. He continues on Impella P3 support and the plan is for removal later today. Patient denied chest pain, shortness of breath or angina equivalents. We will continue to follow recommendations from Cardiothoracic surgery, Cardiology, and critical care team. 11/26/2024: Patient was evaluated at the bedside in room 218. His Impella was removed yesterday afternoon and has been resumed on Epinephrine at 0.06 mcg. Patient's systolic blood pressures have been soft and were in the range of 80- 90s. He denied chest pain, shortness of breath, dizziness, abdominal pain and headaches. Reported mild throat soreness and cough. We will continue to monitor for his recovery and follow cardiology, cardiothoracic, and critical care recommendations. 11/27/2024: Patient was evaluated at the bedside in room 218. Been weaned off Impella since 2 days and his maintaining blood pressure in the range of 80s to 90s. He continues to remain on epinephrine at 0.06 mcg and fludrocortisone was increased to 0.3 mg twice daily. Orthostatic vitals revealed severe drop in systolic blood pressure from 160-78 mm hg SBP. A repeat chest x-ray was ordered and if it will be unremarkable IV bolus of 250 mL of normal saline will be administered once to assess his orthostasis. We will continue management per Cardiothoracic surgery. 11/28/2024: Patient was seen and evaluated bedside in room 218. Case discussed with RN, no acute overnight events. Patient has been weaned off from epinephrine 0.06 mcg yesterday, his blood pressure fluctuating in 70s and 80s. We will continue fludrocortisone 0.3 mg p.o. daily, midodrine 15 mg t.i.d. we will continue management per Cardiothoracic surgery. 11/29/2024: Patient was seen and evaluated bedside in room 218. Case discussed with the RN, no acute events. Patient is totally weaned off from epinephrine since 2 days and currently maintained on fludrocortisone 0.3 mg daily and midodrine 15 mg three times daily. His blood pressures are maintaining between 70s to 90s/50s to 60. It was placed back on Daniel's catheter for urinary retention. A repeat echo performed yesterday showed LVEF of 50-55% with apical hypokinesia. Patient was downgraded from ICU. We will continue management per Cardiothoracic surgery. 11/30/2024: Patient was seen and evaluated at bedside in room 222. Case discussed with the RN, no acute events. Patient still has soft blood pressures however maintains adequate tissue perfusion to vital organs. Patient continues on fludrocortisone 0.3 mg daily and midodrine 15 mg three times daily. Patient is pending inpatient cardiac rehabilitation at [facility]. Patient did not have bowel movements since the last 4 days despite being on docusate, MiraLax and lactulose. Today we added senna 1 tablet twice daily and we will consider increasing it to 4 times if constipation does not improve. We will continue management per Cardiothoracic surgery. 12/01/2024: Patient was seen and evaluated at the bedside. He was seen sitting comfortably in his chair and having breakfast. Patient had no acute events overnight and denies chest pain, shortness of breath, and anginal equivalents. Patient had a good bowel movement yesterday and is very pleased with that. Patient is pending cardiac rehabilitation at [facility]. We will continue to monitor him until placement. REVIEW OF SYSTEMS CONSTITUTIONAL: Patient is alert, oriented x 3. No fever, chills, or night sweats. NEUROLOGICAL: No headache no sensory and motor deficit. CARDIOVASCULAR: Dizziness, improved Denies any exertional angina, dyspnea on exertion, palpitations. PULMONARY: Denies any shortness of breath, cough, phlegm/sputum, hemoptysis, pleuritic chest pain. GASTROINTESTINAL: Constipation. Denies nausea, vomiting. Denies pain, tenderness around the abdomen. GENITOURINARY: Denies frequency, urgency, nocturia, hematuria or incontinence. PHYSICAL EXAM GENERAL APPEARANCE: The patient is alert, awake and oriented and bedbound. NEUROLOGICAL: No sensory and motor deficits. CHEST: Normal chest expansion. Chest tubes removed on 11/24/24 LUNGS: Normal vesicular breath sound. Absence of any rales, rhonchi or any wheezing. CARDIOVASCULAR: Systolic murmur heard over aortic area. Bilateral carotid bruits heard. No JVD. ABDOMEN: Soft nontender, and nondistended. There is no rebound, voluntary guarding, or rigidity. No abdominal bruit heard. GENITOURINARY: No suprapubic tenderness. No costovertebral angle tenderness. Daniel catheter in place. EXTREMITIES: Limbs are non-edematous. Vital Signs (last 8hr) Date Time Temp Pulse Resp B/P (MAP) Pulse Ox O2 Delivery O2 Flow Rate FiO2 12/01/24 07:00 98.8 86 16 82/52 99 12/01/24 06:59 84 20 N/A Room Air 21 12/01/24 06:54 82 19 12/01/24 04:00 98.4 81 18 88/50 95 Room Air LABS: Laboratory: Test 12/01/24 04:33 11/30/24 15:30 11/30/24 03:13 Range/Units White Blood Count 5.1 4.8-10.8 K/uL Red Blood Count 2.84 L 4.50-6.20 MIL/uL Hemoglobin 8.9 L 14.0-18.0 g/dL Hematocrit 28.9 L 42-54 % Mean Corpuscular Volume 101.8 H 79-99 fL Mean Corpuscular Hemoglobin 31.3 27.0-33.0 pg Mean Corpuscular Hemoglobin Concent 30.8 L 32.0-36.0 g/dL Red Cell Distribution Width 14.7 11.0-15.5 % Platelet Count 232 130-400 K/uL Mean Platelet Volume 10.0 7.5-10.5 fL Immature Granulocyte % (Auto) 0.4 0-1 % Neutrophils (%) (Auto) 64.4 40.0-77.0 % Lymphocytes (%) (Auto) 20.6 L 21.0-51.0 % Monocytes (%) (Auto) 7.9 3.0-13.0 % Eosinophils (%) (Auto) 5.3 0.0-8.0 % Basophils (%) (Auto) 1.4 0.0-5.0 % Neutrophils # (Auto) 3.3 1.8-7.7 K/uL Lymphocytes # (Auto) 1.1 1.0-4.8 K/uL Monocytes # (Auto) 0.4 0.1-1.0 K/uL Eosinophils # (Auto) 0.27 0.00-0.70 K/uL Basophils # (Auto) 0.07 0.00-0.20 K/uL Absolute Immature Granulocyte (auto 0.02 0-1 K/uL Nucleated Red Blood Cells 0.0 0.0-0.19 % Sodium Level 142 136-145 mmol/L Potassium Level 3.8 3.5-5.1 mmol/L Chloride Level 107 101-111 mmol/L Carbon Dioxide Level 28 21-32 mmol/L Blood Urea Nitrogen 11 7-18 mg/dL Creatinine 1.1 0.5-1.3 mg/dL Glomerular Filtration Rate Calc 73 >90 mL/min Random Glucose 87 70-105 mg/dL Total Calcium 8.5 8.5-10.1 mg/dL Total Bilirubin 0.4 0.2-1.0 mg/dL Aspartate Amino Transf (AST/SGOT) 18 10-37 U/L Alanine Aminotransferase (ALT/SGPT) 13 12-78 U/L Alkaline Phosphatase 95 50-136 U/L Total Protein 6.3 6.0-8.3 g/dL Albumin 2.5 L 3.5-5.0 g/dL Whole Blood Glucose 99 70-110 MG/DL Red Blood Cell Morphology See comments Current Medications Medications (Trade) Dose Ordered Sig/Brittany Route PRN Reason Start Time Stop Time Status Last Admin Dose Admin Acetaminophen (TYLenol 325MG TAB) 650 mg Q4H PRN PO Temp >38.3C(AFTER EXTUBATION) 11/07/24 14:00 12/07/24 13:59 Acetaminophen (TYLenol 325MG TAB) 650 mg Q6H PRN PO TEMPERATURE GREATER THAN 101.5 11/03/24 21:00 11/07/24 14:00 DC 11/06/24 23:00 650 MG Acetaminophen (TYLenol 325MG TAB) 650 mg Q6H PRN PO MILD PAIN (1-3) 11/07/24 14:00 12/07/24 13:59 11/29/24 06:38 650 MG Acetaminophen (TYLenol 650MG SUPPOSITORY) 650 mg Q4H PRN RC Temp >38.3C WHILE INTUBATED 11/07/24 14:00 12/07/24 13:59 Acetaminophen (acetaMINOPHEN) 1,000 mg Q6H IVPB 11/09/24 09:00 11/12/24 08:59 DC 11/12/24 02:11 1,000 MG Acetaminophen (acetaMINOPHEN) 1,000 mg Q6H6 IV 11/07/24 18:00 11/08/24 17:59 DC 11/08/24 18:08 1,000 MG Albumin Human 250 ml @ 0 mls/hr AD IV 11/23/24 09:00 11/28/24 08:59 DC 11/23/24 08:55 250 MLS/HR Albumin Human 250 ml @ 0 mls/hr AD PRN IV IF HEMODYNAMICALLY UNSTABLE 11/07/24 14:00 11/08/24 09:57 DC 11/08/24 09:57 125 MLS/HR Albumin Human 250 ml @ 0 mls/hr AD STAT IV 11/15/24 13:09 11/15/24 13:12 DC 11/15/24 13:28 250 MLS/HR Aminocaproic Acid 29381 mg/Sodium Chloride 310 ml @ 25 mls/hr AD IV 11/07/24 14:00 11/08/24 02:23 DC Aminocaproic Acid 90838 mg/Sodium Chloride 480 ml @ 0 mls/hr AD PRN IV BLEEDING CONTROL 11/07/24 11:00 11/07/24 14:03 DC Aspirin (Aspirin 81mg Ec Tab) 81 mg DAILY PO 11/04/24 09:00 12/04/24 08:59 11/30/24 10:06 81 MG Atorvastatin Calcium (LIPItor 40MG) 40 mg HS PO 11/03/24 21:00 11/03/24 20:40 DC Atorvastatin Calcium (LIPItor 40MG) 40 mg HS PO 11/03/24 21:00 11/09/24 07:45 DC 11/07/24 20:15 40 MG Atorvastatin Calcium (LIPItor 40MG) 40 mg HS PO 11/10/24 21:00 12/10/24 20:59 11/30/24 21:13 40 MG Calcium Gluconate (Calcium Gluc 1gm Vial) 1 gm AD PRN IV HYPOCALCEMIA 11/08/24 09:00 11/09/24 07:45 DC 11/08/24 16:36 1 GM Calcium Gluconate 1 gm/Sodium Chloride 60 ml @ 200 mls/hr AD PRN IV HYPOCALCEMIA 11/07/24 14:00 12/07/24 13:59 11/21/24 06:13 200 MLS/HR Cefazolin Sodium (Ancef) 2 gm ONCALL IVPB 11/06/24 22:00 11/07/24 14:00 DC Cefazolin Sodium (Ancef) 2 gm Q8H IVPB 11/07/24 19:00 11/08/24 11:01 DC 11/08/24 11:15 2 GM Clopidogrel Bisulfate (plaVIX 75MG) 75 mg DAILY PO 11/08/24 14:00 12/08/24 13:59 11/30/24 10:06 75 MG Dexmedetomidine/ Sodium Chloride (PRECEdex 400MCG/ 100ML-NS) 400 mcg PROTOCOL IV 11/07/24 14:00 12/07/24 13:59 Dextrose (D50w) 50 ml AD PRN IV HYPOGLYCEMIA PROTOCOL 11/07/24 14:00 12/07/24 13:59 Dextrose/Sodium Bicarbonate 1,025 ml @ 10 mls/hr Q24H IV 11/07/24 19:30 11/27/24 15:14 DC 11/27/24 09:05 10 MLS/HR Docusate Sodium (COLace 100MG CAP) 100 mg BID PO 11/07/24 21:00 11/08/24 10:11 DC 11/07/24 20:15 100 MG Docusate Sodium (COLace 100MG CAP) 100 mg BID PO 11/10/24 09:00 12/10/24 08:59 11/30/24 21:13 100 MG Docusate Sodium (COLace LIQUID 100MG/10ML) 100 mg BID NG 11/08/24 10:30 11/09/24 21:53 DC 11/09/24 20:47 100 MG Enoxaparin Sodium (Lovenox) 30 mg DAILY SQ 11/10/24 09:00 11/13/24 08:38 DC 11/12/24 09:03 30 MG Enoxaparin Sodium (Lovenox) 30 mg DAILY SQ 11/27/24 14:35 12/27/24 14:34 11/30/24 10:08 30 MG Enoxaparin Sodium (Lovenox) 40 mg DAILY SQ 11/04/24 09:00 11/07/24 13:38 DC 11/05/24 09:06 40 MG Epinephrine HCl 10 mg/Sodium Chloride 250 ml @ 13.948 mls/ hr AD PRN IV POST-OP CARDIOVASCULAR ORDERS 11/07/24 14:00 11/12/24 13:59 DC 11/09/24 19:48 7 MLS/HR Epinephrine HCl 10 mg/Sodium Chloride 250 ml @ 0 mls/hr AD PRN IV TITRATE 11/07/24 11:00 11/07/24 14:02 DC Epinephrine HCl 10 mg/Sodium Chloride 250 ml @ 0 mls/hr PROTOCOL IV 11/12/24 23:30 12/12/24 23:29 11/26/24 09:46 8.3 MLS/HR Famotidine (Pepcid 20mg Vial) 20 mg BID IV 11/07/24 21:00 11/08/24 08:59 DC 11/08/24 08:11 20 MG Famotidine (Pepcid 20mg Tab) 20 mg DAILY PO 11/04/24 09:00 11/07/24 13:38 DC 11/05/24 09:06 20 MG Fludrocortisone Acetate (Fludrocortisone Acetate) 0.1 mg BID PO 11/23/24 15:30 11/26/24 20:29 DC 11/26/24 09:51 0.1 MG Fludrocortisone Acetate (Fludrocortisone Acetate) 0.3 mg BID PO 11/26/24 21:00 11/27/24 10:04 DC Fludrocortisone Acetate (Fludrocortisone Acetate) 0.3 mg DAILY PO 11/27/24 10:30 12/27/24 10:29 11/30/24 10:07 0.3 MG Fludrocortisone Acetate (Fludrocortisone Acetate) 0.3 mg ONCE PO 11/26/24 21:00 11/26/24 23:59 DC 11/26/24 21:36 0.3 MG Folic Acid (FOLic ACID 1 MG TABLET) 1 mg DAILY PO 11/14/24 09:00 12/14/24 08:59 11/30/24 10:06 1 MG Furosemide (LASix 20MG TAB) 20 mg Q12H PO 11/09/24 09:00 11/24/24 15:51 DC 11/22/24 19:40 20 MG Furosemide (LASix 20MG TAB) 20 mg Q12H PO 11/25/24 09:00 11/27/24 14:34 DC 11/27/24 00:44 20 MG Furosemide (LASix 20MG VIAL) 20 mg Q12H IV 11/08/24 09:00 11/09/24 08:59 DC 11/08/24 20:23 20 MG Glucagon (Glucagon 1mg Kit) 1 mg AD PRN IM HYPOGLYCEMIA PROTOCOL 11/07/24 14:00 12/07/24 13:59 Guaifenesin/ Dextromethorphan (RobiTUSSin DM 200/20MG 10ML) 15 ml Q6H PRN PO COUGH 11/19/24 15:00 12/19/24 14:59 11/29/24 13:44 15 ML Heparin Sodium (Porcine) (HEParin 5,000 UNIT VIAL) *calculation based on ACTUAL B... AD PRN IV HEPARIN PROTOCOL 11/13/24 09:30 11/25/24 18:40 DC Heparin Sodium/ Dextrose 250 ml @ 0 mls/hr Q6H IV 11/13/24 09:30 11/25/24 18:40 DC 11/24/24 15:31 10.8 MLS/HR Hydralazine HCl (APRESOLine 20MG INJ) 10 mg Q6H PRN IV For:SBP above 160;DBP above 90 11/03/24 21:00 11/07/24 13:38 DC Insulin Human Regular 100 unit/ Sodium Chloride 100 ml @ 0 mls/hr AD IV 11/07/24 14:00 11/09/24 13:59 DC 11/08/24 12:30 4 MLS/HR Ipratropium [place] (AtrovENT UD) 0.5 MG [id number] IH 11/08/24 12:00 12/08/24 11:59 12/01/24 01:14 0.5 MG Lactulose (Constulose 20gm/ 30ml Udcup) 20 gm BID PRN PO CONSTIPATION 11/03/24 21:00 11/07/24 14:00 DC Lactulose (Constulose 20gm/ 30ml Udcup) 20 gm BID PRN PO CONSTIPATION 11/07/24 14:00 12/07/24 13:59 11/30/24 10:18 20 GM Levothyroxine Sodium (SYNTHroid 125MCG TAB) 125 mcg SYN PO 11/09/24 06:30 12/09/24 06:29 12/01/24 06:37 125 MCG Lidocaine HCl/ Dextrose 250 ml @ 0 mls/hr PROTOCOL PRN IV OTHER [SEE ORDER COMMENTS] 11/08/24 21:00 11/09/24 08:37 DC 11/08/24 21:15 7.5 MLS/HR Magnesium Hydroxide (Milk Of Magnesium 30ml) 30 ml DAILY PRN PO CONSTIPATION 11/07/24 14:00 12/07/24 13:59 Magnesium Sulfate 50 ml @ 12.5 mls/hr AD PRN IV MAG LEVEL LESS THAN 2.0 11/07/24 14:00 12/07/24 13:59 11/09/24 05:59 12.5 MLS/HR Metoprolol Tartrate (loprESSOR) 12.5 mg BID PO 11/09/24 09:00 11/11/24 09:39 DC Metoprolol Tartrate (loprESSOR) 50 mg BID PO 11/04/24 21:00 11/07/24 13:38 DC 11/06/24 20:38 50 MG Midodrine (PROAMatine 5 MG TABLET) 10 mg TID PO 11/09/24 21:00 11/11/24 06:58 DC 11/10/24 20:07 10 MG Midodrine (PROAMatine 5 MG TABLET) 15 mg TID PO 11/11/24 09:00 12/11/24 08:59 11/30/24 21:14 15 MG Montelukast Sodium (SinguLAIR) 10 mg HS PO 11/08/24 21:00 12/08/24 20:59 11/30/24 21:13 10 MG Morphine Sulfate (morPHINE 2MG SYG) 0.5 mg Q2H PRN IV MODERATE PAIN (4-6) 11/07/24 14:00 11/08/24 13:59 DC Morphine Sulfate (morPHINE 2MG SYG) 1 mg Q2H PRN IV SEVERE PAIN (7-10) 11/07/24 14:00 11/08/24 13:59 DC Morphine Sulfate (morPHINE 4MG SYG) 2 mg Q4H PRN IVP SEVERE PAIN (7-10) 11/03/24 21:00 11/07/24 13:38 DC 11/04/24 15:49 2 MG Nitroglycerin (Nitroglycerin 1gm Oint) 0.5 inch Q8H TD 11/03/24 21:00 11/07/24 13:38 DC 11/07/24 05:46 0.5 INCH Nitroglycerin/ Dextrose 0 ml @ 0 mls/hr AD IV 11/07/24 14:00 11/10/24 13:59 DC Norepinephrine Bitartrate 250 ml @ 0 mls/hr AD PRN IV TITRATE 11/07/24 11:00 11/07/24 14:02 DC Norepinephrine Bitartrate 250 ml @ 0 mls/hr AD PRN IV POST-OP CARDIOVASCULAR ORDERS 11/07/24 14:00 11/12/24 13:59 DC 11/09/24 17:09 5.6 MLS/HR Norepinephrine Bitartrate 250 ml @ 0 mls/hr PROTOCOL IV 11/12/24 18:30 12/12/24 18:29 11/13/24 08:42 2 MLS/HR Ondansetron HCl (zoFRAN 4MG INJ) 4 mg Q6H PRN IV NAUSEA/VOMITING 11/03/24 21:00 11/07/24 14:00 DC Ondansetron HCl (zoFRAN 4MG INJ) 4 mg Q6H PRN IV NAUSEA/VOMITING 11/07/24 14:00 12/07/24 13:59 11/09/24 21:50 4 MG Pantoprazole Sodium (PROTonix 40MG INJ) 40 mg BID IVP 11/08/24 09:00 12/08/24 08:59 11/30/24 21:13 40 MG Pharmacy Profile Note (Pharmacy Communication) 1 each ONCE MISC 11/13/24 09:00 11/13/24 08:57 DC Piperacillin Sod/ Tazobactam Sod (Zosyn 3.375gm+NS 50ml) 3.375 gm Q8H IV 11/09/24 10:00 11/09/24 09:38 DC Piperacillin Sod/ Tazobactam Sod (Zosyn 3.375gm+NS 50ml) 3.375 gm Q8H IV 11/09/24 10:00 11/19/24 09:59 DC 11/19/24 02:20 3.375 GM Polyethylene Glycol (MIRalax 3350 17 GM POWD.PACK) 17 gm DAILY PO 11/09/24 09:00 12/09/24 08:59 11/30/24 10:07 17 GM Potassium Phosphate 250 ml @ 42 mls/hr AD PRN IV LOW PHOS LEVEL 11/07/24 14:00 12/07/24 13:59 11/08/24 07:22 42 MLS/HR Potassium Chloride 100 ml @ 100 mls/hr AD PRN IV HYPOKALEMIA 11/07/24 14:00 12/07/24 13:59 11/30/24 05:47 100 MLS/HR Potassium Chloride (K-Dur/Klor-Con 20meq) 20 meq AD PRN PO POTASSIUM PROTOCOL 11/14/24 00:30 12/14/24 00:29 12/01/24 06:39 20 MEQ Potassium Chloride (KCl 10% Elixir 20meq/15ml) 20 meq AD PRN PO POTASSIUM PROTOCOL 11/14/24 00:30 12/14/24 00:29 11/21/24 08:34 20 MEQ Propofol 100 ml @ 0 mls/hr AD PRN IV SEDATION 11/07/24 14:00 11/11/24 13:59 DC Sennosides (Senna) 1 tab BID PO 11/30/24 13:00 12/30/24 12:59 11/30/24 21:13 1 TAB Sodium Bicarbonate (Sodium Bicarb 50meq 50ml Vial) 50 meq AD PRN IV OTHER[SEE DOSING INSTRUCTIONS] 11/07/24 14:00 11/10/24 13:59 DC 11/08/24 00:54 50 MEQ Sodium Chloride 250 ml @ 0 mls/hr Q0M IV 11/27/24 10:30 12/27/24 10:29 11/27/24 10:26 250 MLS/HR Sodium Chloride 250 ml @ 0 mls/hr Q0M IV 11/18/24 10:00 11/27/24 10:11 DC 11/18/24 10:13 250 MLS/HR Sodium Chloride 500 ml @ 0 mls/hr AD IV 11/07/24 14:00 12/07/24 13:59 11/10/24 00:41 3 MLS/HR Sodium Chloride 1,000 ml @ 10 mls/hr ONCE IV 11/07/24 14:00 11/08/24 13:59 DC 11/07/24 20:11 10 MLS/HR Sodium Chloride 1,000 ml @ 100 mls/hr Q10H IV 11/06/24 12:30 11/06/24 15:29 DC Sodium Chloride (NS Flush 10ml) 10 ml Q8H PRN IVP IV LINE FLUSH 11/07/24 14:00 12/07/24 13:59 11/30/24 21:13 10 ML Sodium Chloride (Normal Saline Flush) 10 ml TID IV 11/28/24 09:00 12/28/24 08:59 11/30/24 13:15 10 ML Sucralfate (Carafate) 1 gm TID PO 11/08/24 21:00 11/27/24 15:14 DC 11/27/24 14:49 1 GM Tamsulosin HCl (FloMAX) 0.4 mg DAILY PO 11/28/24 21:00 12/28/24 20:59 11/30/24 10:06 0.4 MG Tramadol HCl (UltRAM) 25 mg Q6H PRN PO MODERATE PAIN (4-6) 11/07/24 14:00 11/09/24 08:37 DC Tramadol HCl (UltRAM) 50 mg Q6H PRN PO SEVERE PAIN (7-10) 11/07/24 14:00 11/09/24 08:37 DC 11/08/24 23:30 50 MG Vitamin B Complex (Vitamin B-12) 1,000 mcg DAILY IM 11/07/24 09:00 11/13/24 08:59 DC 11/12/24 09:03 1,000 MCG Vitamin B Complex (Vitamin B-12) 1,000 mcg DAILY PO 11/14/24 09:00 12/14/24 08:59 11/30/24 10:06 1,000 MCG DIAGNOSTICS / RADIOLOGY: [ ] PATIENT: CLARE VALADEZ MR#: [id number] : 1955 SEX: M AGE: 69 LOCATION: 2D ORDER 5 STATUS: ADM IN REPORT#: [id number] SERVICE 5 REASON: cabg post op ORDERING PHYSICIAN: KELVIN MARTINEZ MD PROCEDURE: CXR1VW - CHEST 1VW EXAM: CR Chest, 1 View CLINICAL HISTORY: CABG postoperative. COMPARISON: 11/27/24. FINDINGS: LUNGS: Resolution of the homogeneous airspace opacity in the left perihilar region, representing an interval change since the prior study. Both lung gil remain clear with no evidence of consolidation, infiltrate, or effusion. PLEURAL SPACES: No pleural effusion or pneumothorax is seen. MEDIASTINUM: Cardiac size and mediastinal contours are within normal limits. Post-sternotomy changes are again noted. BONES: Visualized bony thorax shows no acute osseous abnormality. LINES / DEVICES: Right-sided peripherally inserted central catheter (PICC) line is in place with its tip at the cavoatrial junction, in a satisfactory position. IMPRESSION: 1. Resolution of previously noted left perihilar airspace opacity. 2. Right-sided PICC line with tip at the cavoatrial junction, appropriately positioned. 3. Post-sternotomy changes, stable. 4. Clear lung gil bilaterally without evidence of consolidation, infiltrate, or effusion. 5. No pleural effusion or pneumothorax. 6. Normal cardiac size and mediastinal contours. 7. No acute osseous abnormality of the visualised bony thorax. /[place] DICTATED BY: MOLLY PATTERSON Jr., MD DATE: 11/30/24354 ELECTRONICALLY SIGNED BY: MOLLY PATTERSON Jr., MD DATE: 10/20/25 0355 ASSESSMENT: Coronary artery disease, POA, s/p CABG 3v and redo sternotomy with redo of graft failure now s/p CABG with 4v Postop acute anemia requiring transfusion Acute kidney injury Hyperlipidemia, POA Hypothyroidism, POA Peripheral artery disease, suspected Carotid artery stenosis PLAN: Coronary artery disease, POA s/p CABG 3v and redo sternotomy with redo of graft failure now s/p CABG with 4v * Continue aspirin 81 mg p.o. and Plavix daily * Supplemental oxygen as needed to maintain SpO2 greater than 94% * Echocardiogram was done which revealed aortic valve: trileaflet, mildly sclerotic, and opens well. A repeat echocardiogram on 11/25/2024 showed LVEF which is difficult to assess due to arrhythmia but estimated at 40-45%. * In coronary CT angiography there is mixed calcified and noncalcified plaque in the proximal LAD with 80-90% stenosis. Left circumflex coronary artery: Normal caliber, nondominant and gives rise to a large OM branch. There is mixed calcified and noncalcified plaque in the mid LCx with 80-90% stenosis. * Left heart catheterization with selective right and left coronary angiography was performed which showed critical left main disease. Severe ostial RCA stenosis. 11/06/24 * Cardiac catheterization demonstrated a very tight left main lesion and the patient is referred for surgical revascularization. * Patient is POD 23 S/P CABG, patient is being managed in the ICU per protocol. * Off impella since 11/25/2024 and discontinue from epinephrine since 11/27/24 * Continue fludrocortisone 0.3 mg once daily as per cardiothoracic recommendations * Pending cardiac rehab placement at [facility]. Peripheral vascular disease, suspected * Patient has history of exertional bilateral leg pain * Diminished peripheral pulses * A SERA has been ordered due to the patients complaint of bilateral lower extremity claudication, and numbness/tingling in bilateral lower extremities. * Clear aspirin 81 mg daily and statin 40mg * Encouraged supervised exercise therapy for claudication * Counseled on continued smoking cessation 11/04/24 Peripheral Neuropathy * Vitamin B12 has been ordered to rule out peripheral neuropathy.on 11/06/24, 11/17/24 * Complained of numbness and tingling in his limbs. * Vitamin B12 level was measured which showed [id number]. * Patient has been started on vitamin B12 supplement 1000 mcg for 6 days. Carotid artery stenosis * Presence of bilateral carotid bruit on exam, suspicion for significant stenosis * Risk factor modification: Smoking cessation, BP control, glycemic control. 11/04/24 * Carotid artery ultrasound showed Bilateral ICA/CCA ratio more than 4.0 suggesting more than 70% stenosis. 11/05/24 * Cardiology recommended CT/MR angiogram when stable from surgical standpoint Hyperlipidemia * Continue home statin therapy atorvastatin 40 mg * Reinforce low-cholesterol, heart healthy diet (limit saturated fats, increase fiber, fruits and vegetables) * Encouraged regular physical activity as tolerated * Monitor lipid panel * Outpatient follow up with PCP/Cardiology for long-term lipid management and cardiovascular risks reduction Supportive measures * Start patient on GI prophylaxis * DVT prophylaxis * Monitor morning labs CBC and BMP daily * He is on heart healthy diet Hypothyroidism * Continue home dose of levothyroxine at 125 mcg daily * TSH 7.13 and Free T3 1.64. Postop acute anemia requiring transfusion - Patient's hemoglobin on 11/18 is 9. Patient has normocytic anemia - His iron panel from 11/17 showed low iron and low percentage saturation. - As per Hematology recommendations, patient was given IV iron sucrose 11/18 - Hematology saw the patient and they recommended to start folic acid, vitamin B12, ordered SPEP, UPEP, free light chains. kappa light chain - 203, Lambda light chain -29.5. They think that the patient might be having hemolytic anemia which could be the reason for his graft clotting after surgery. - Follow up with morning CBC. ATTESTATION BY PHYSICIAN I have seen and examined the patient. I reviewed the documentation, medical decision making, and treatment plan as noted by the resident provider above. I agree with the findings and plan of care. Shawn Loera IV, MD, HARSHAVARDHA MD Dec 01, 2024 09:21
--- NOTE | 2024-12-01 16:45 | NUR ---
AGNIESZKA AMAYA EXPERIMENTAL WELDER NOTIFIED OF PT'S B/P AND AND ORDER FOR 250CC BOLUS OF N/S GIVEN ORDERED AND WILL MONITOR B/P. PT IS NOT OFFERING ANY C/O AT PRESENT AND HR IN THE 70'S.
--- NOTE | 2024-12-01 17:45 | NUR ---
DR. SERRANO NOTIFIED OF PT HAVING CHEST PAIN FOR A SHORT PERIOD AND AN EKG WAS OBTAINED AND ORDER TO DC FLOMAX WAS NOTED. NO FURTHER CHEST PAIN NOTED AND B/P HAS RANGED FROM SBP OF 70'S TO 80'S.
--- NOTE | 2024-12-01 21:01 | PN ---
[facility] PROGRESS NOTE Date Patient Seen: Dec 01, 2024 Time of Visit: 20:52 Supervising Physician: Vincent Lyman MD Primary Care Physician: Self Referral Outpatient Specialists: [ ] Inpatient Consults: PEG, Dr Jacobo, Dr Wellington , Dr Meza PROBLEM LIST: Cardiogenic shock MvCAD s/p CABG x 3+1 w/ redo on 11/07/24 Postop acute anemia requiring transfusion ELSA Hyperlipidemia Sclerotic nodule on the non coronary cusp on 2D echo Normal ventricular diastolic function with LVEF of 60-65% on 2D echo 11/05/24 Former smoker Graves disease Obesity INTERVAL HISTORY: Pt is awake alert and oriented. Blood pressures have been marginal. At the time of my visit Blood pressure was checked and it was 115/62. Ther has been no major overnight events. He denies any chest pain palpitations or SOB. pending [place] rehab. Plan: Follow CT surgeon recs Cardiac diet Telemetry PT/OT when able Daily labs and chest x-ray in a.m. INOs Case management working on cardiac rehab Total care time 39 minutes, Time excludes any education or procedural time. REVIEW OF SYSTEMS: 12 point ROS reviewed with patient. Pertinent positives mentioned above. Otherwise negative. PHYSICAL EXAM: GENERAL: alert, weak, awake oriented x 3 HEENT: EOMI, Sclera non icteric, moist mucosa NECK: Supple, no JVD, trachea midline right IJ. Subclavian Impella 5.5 LUNGS: Rhonchi to right lower lobes. No wheezes HEART: Regular rate and rhythm. Normal S1 and S2, without murmurs mid incision line tenderness. Dressing clean dry and intact. ABD: Abdomen soft, nontender. Bowel sounds present EXT: No clubbing cyanosis or edema. Left femoral sheath. NEURO: Alert and oriented to person, follows commands Vital Signs (last 8hr) Date Time Temp Pulse Resp B/P (MAP) Pulse Ox O2 Delivery O2 Flow Rate FiO2 12/01/24 19:20 98.2 75 18 89/52 98 Room Air 12/01/24 19:02 82 18 N/A Room Air 21 12/01/24 19:02 82 18 12/01/24 16:00 97.5 81 16 67/38 94 Room Air LABS: Hematology Labs: Test 12/01/24 04:33 11/30/24 03:13 Range/Units White Blood Count 5.1 4.8-10.8 K/uL Red Blood Count 2.84 L 4.50-6.20 MIL/uL Hemoglobin 8.9 L 14.0-18.0 g/dL Hematocrit 28.9 L 42-54 % Mean Corpuscular Volume 101.8 H 79-99 fL Mean Corpuscular Hemoglobin 31.3 27.0-33.0 pg Mean Corpuscular Hemoglobin Concent 30.8 L 32.0-36.0 g/dL Red Cell Distribution Width 14.7 11.0-15.5 % Platelet Count 232 130-400 K/uL Mean Platelet Volume 10.0 7.5-10.5 fL Immature Granulocyte % (Auto) 0.4 0-1 % Neutrophils (%) (Auto) 64.4 40.0-77.0 % Lymphocytes (%) (Auto) 20.6 L 21.0-51.0 % Monocytes (%) (Auto) 7.9 3.0-13.0 % Eosinophils (%) (Auto) 5.3 0.0-8.0 % Basophils (%) (Auto) 1.4 0.0-5.0 % Neutrophils # (Auto) 3.3 1.8-7.7 K/uL Lymphocytes # (Auto) 1.1 1.0-4.8 K/uL Monocytes # (Auto) 0.4 0.1-1.0 K/uL Eosinophils # (Auto) 0.27 0.00-0.70 K/uL Basophils # (Auto) 0.07 0.00-0.20 K/uL Absolute Immature Granulocyte (auto 0.02 0-1 K/uL Nucleated Red Blood Cells 0.0 0.0-0.19 % Red Blood Cell Morphology See comments Chemistry Labs: Test 12/01/24 19:55 12/01/24 04:33 11/30/24 15:30 Range/Units Thyroid Stimulating Hormone (TSH) 3.54 # 0.36-3.74 uIU/mL Sodium Level 142 136-145 mmol/L Potassium Level 3.8 3.5-5.1 mmol/L Chloride Level 107 101-111 mmol/L Carbon Dioxide Level 28 21-32 mmol/L Blood Urea Nitrogen 11 7-18 mg/dL Creatinine 1.1 0.5-1.3 mg/dL Glomerular Filtration Rate Calc 73 >90 mL/min Random Glucose 87 70-105 mg/dL Total Calcium 8.5 8.5-10.1 mg/dL Total Bilirubin 0.4 0.2-1.0 mg/dL Aspartate Amino Transf (AST/SGOT) 18 10-37 U/L Alanine Aminotransferase (ALT/SGPT) 13 12-78 U/L Alkaline Phosphatase 95 50-136 U/L Total Protein 6.3 6.0-8.3 g/dL Albumin 2.5 L 3.5-5.0 g/dL Whole Blood Glucose 99 70-110 MG/DL DIAGNOSTICS / RADIOLOGY RESULTS: [ [facility] [address] [place] [address] IMAGING REPORT Signed PATIENT: CLARE KERR MR#: [id number] : 1955 SEX: M AGE: 69 LOCATION: 2DH ORDER 5 STATUS: ADM IN REPORT#: [id number] SERVICE 5 REASON: cabg post op ORDERING PHYSICIAN: KELVIN JACOBO MD PROCEDURE: CXR1VW - CHEST 1VW EXAM: CR Chest, 1 View CLINICAL HISTORY: CABG postoperative. COMPARISON: 11/27/24. FINDINGS: LUNGS: Resolution of the homogeneous airspace opacity in the left perihilar region, representing an interval change since the prior study. Both lung gil remain clear with no evidence of consolidation, infiltrate, or effusion. PLEURAL SPACES: No pleural effusion or pneumothorax is seen. MEDIASTINUM: Cardiac size and mediastinal contours are within normal limits. Post-sternotomy changes are again noted. BONES: Visualized bony thorax shows no acute osseous abnormality. LINES / DEVICES: Right-sided peripherally inserted central catheter (PICC) line is in place with its tip at the cavoatrial junction, in a satisfactory position. IMPRESSION: 1. Resolution of previously noted left perihilar airspace opacity. 2. Right-sided PICC line with tip at the cavoatrial junction, appropriately positioned. 3. Post-sternotomy changes, stable. 4. Clear lung gil bilaterally without evidence of consolidation, infiltrate, or effusion. 5. No pleural effusion or pneumothorax. 6. Normal cardiac size and mediastinal contours. 7. No acute osseous abnormality of the visualised bony thorax. /[place] DICTATED BY: MOLLY PATTERSON Jr., MD DATE: 11/30/24354 ELECTRONICALLY SIGNED BY: MOLLY PATTERSON Jr., MD DATE: 11/30/24354 ] PLAN NEURO: Minimize central acting medications as possible. Maintain fall precautions, adequate lighting during the day PULMONARY: Supplemental 02 as needed. Maintain aspiration precautions at all times CARDIOVASCULAR: Follow hemodynamics. Vital signs per facility protocol GI & NUTRITION: Continue with nutritional support. Continue stool softeners and laxatives as needed. KIDNEYS & ELECTROLYTES: Strict monitoring of intake, output and overall fluid balance. Avoid nephrotoxic medications to the extent possible. Medications to be dosed according to renal function. Monitor electrolytes and replace as needed ENDOCRINE: Maintain blood glucose between 100-180 at all times. Hypoglycemia protocol in place INFECTIOUS DISEASE: Trend temperature, WBC and procalcitonin level Follow cultures, deescalate antibiotics as soon as possible. Panculture if new onset fever ONCOLOGY/HEMATOLOGY/COAGULATION: Monitor for s/s of bleeding Monitor hemoglobin, coagulation studies as needed SKIN: Pressure ulcer prevention per facility protocol Specialty mattress ORTHO/REHAB: Continue PT/OT Prophylaxis: Continue GI and DVT prophylaxis Code Status: Full Resuscitation Disposition: TBD ATTESTATION BY PHYSICIAN I have evaluated the patient chart, medical records, and spoke with appropriate staff. I reviewed the documentation, medical decision making, and treatment plan as noted by the mid-level provider above. I agree with the findings and plan of care. Vincent Lyman MD, [facility] Dec 01, 2024 21:01
[2024-12-02] VITALS (8 sets, daily range): BP systolic 73–101; BP diastolic 39–63; PULSE 69–97; RESP 18; TEMP 97.8–98.3; O2SAT 96–97
[2024-12-02 05:50] LABS: IMMATURE GRANULOCYTE ABSOLUTE 0.02 K/uL (0-1); NUCLEATED RED BLOOD CELLS 0.0 % (0.0-0.19); PLATELET COUNT (AUTO) 232 K/uL (130-400); RED BLOOD CELL COUNT(AUTO) 3.13 MIL/uL (4.50-6.20); RED CELL DISTRIBUTION WIDTH 17.6 % (11.0-15.5); WHITE BLOOD COUNT (AUTO) 4.3 K/uL (4.8-10.8)
[2024-12-02 06:04] LABS: ASPARTATE AMINOTRANSFERASE 16.0 U/L (10-37); CREATININE 1.0 mg/dL (0.5-1.3); GLOMERULAR FILTR. RATE CALC 82.0 mL/min (>90); GLUCOSE,RANDOM 97.0 mg/dL (70-105); SODIUM SERUM 141.0 mmol/L (136-145); TOTAL PROTEIN, SERUM 6.2 g/dL (6.0-8.3); UREA NITROGEN, BLOOD 12.0 mg/dL (7-18)
[2024-12-02 06:15] LABS: BASOPHILS % (MANUAL) 1 % (0-2); EOSINOPHILS % (MANUAL) 7 % (1-6); LYMPHOCYTES % (MANUAL) 26 % (22-44); MAN.DIFF COMMENT-IMPRESSION MANUAL DIFFERENTIAL; MONOCYTES % (MANUAL) 5 % (2-9); SEGMENTED NEUTROPHILS % 61 % (40-70)
[2024-12-02 06:16] LABS: PLATELET MORPHOLOGY COMMENT ADEQUATE
--- NOTE | 2024-12-02 06:21 | EKG ---
[facility] Test Date: 2024-12-01 Test Time: 17:21:09 Pat Name: CLARE KERR Department: [facility] Room: 222 1 Gender: M [employer]: LENY : 1955 Requested By: AGNIESZKA AMAYA Order Number: [id number] Reading MD: Gurvinder Jacobo Measurements Intervals [place] Rate: 77 P: 60 TN: 182 QRS: 53 QRSD: 82 T: -75 QT: 428 QTc: 484 Interpretive Statements Normal sinus rhythm Low voltage QRS Septal infarct , age undetermined Inferior infarct , age undetermined T wave abnormality, consider anterolateral ischemia Compared to ECG 11/07/2024 19:27:29 Low QRS voltage now present T-wave abnormality now present Possible ischemia now present Myocardial infarct finding still present Electronically Signed On 12-02-2024 16:34:26 CDT by Gurvinder Jacobo Please click the below link to view image of tracing.
--- NOTE | 2024-12-02 11:30 | PN ---
[facility] PROGRESS NOTE Date Patient Seen: Dec 02, 2024 Time of Visit: 11:29 Supervising Physician: GERSON LYMAN MD Primary Care Physician: Self Referral Outpatient Specialists: [ ] Inpatient Consults: PEG, Dr Jacobo, Dr Wellington , Dr Meza PROBLEM LIST: MvCAD s/p CABG x 3+1 w/ redo on 11/07/24 Postop acute anemia requiring transfusion, improved ELSA Hyperlipidemia Sclerotic nodule on the non coronary cusp on 2D echo Normal ventricular diastolic function with LVEF of 60-65% on 2D echo 11/05/24 Former smoker Graves disease Obesity INTERVAL HISTORY: Chart reviewed including all laboratory and imaging results. Patient assessed at bedside. Denies chest pain, palpitation, or shortness for breath. Hemodynamically stable. Blood pressures remain marginal. No major overnight events reported. Plan: Follow CT surgeon recs Cardiac diet Telemetry PT/OT when able Daily labs and chest x-ray in a.m. INOs Disposition per primary REVIEW OF SYSTEMS: 12 point ROS reviewed with patient. Pertinent positives mentioned above. Otherwise negative. PHYSICAL EXAM: GENERAL: alert, weak, awake oriented x 3 HEENT: EOMI, Sclera non icteric, moist mucosa NECK: Supple, no JVD, trachea midline. LUNGS: Clear to all lobes. No wheezes HEART: Regular rate and rhythm. Normal S1 and S2, midsternal incision with no s/s of infection noted. ABD: Abdomen soft, nontender. Bowel sounds present EXT: No clubbing cyanosis or edema. NEURO: Alert and oriented x3 no focal weakness Vital Signs (last 8hr) Date Time Temp Pulse Resp B/P (MAP) Pulse Ox O2 Delivery O2 Flow Rate FiO2 12/02/24 08:05 98.2 97 18 73/39 95 Room Air 12/02/24 06:31 84 18 12/02/24 06:30 84 18 N/A Room Air 21 LABS: Hematology Labs: Test 12/02/24 05:22 Range/Units White Blood Count 4.3 L 4.8-10.8 K/uL Red Blood Count 3.13 L 4.50-6.20 MIL/uL Hemoglobin 9.7 L 14.0-18.0 g/dL Hematocrit 29.7 L 42-54 % Mean Corpuscular Volume 94.9 79-99 fL Mean Corpuscular Hemoglobin 31.0 27.0-33.0 pg Mean Corpuscular Hemoglobin Concent 32.7 32.0-36.0 g/dL Red Cell Distribution Width 17.6 H 11.0-15.5 % Platelet Count 232 130-400 K/uL Mean Platelet Volume 10.2 7.5-10.5 fL Immature Granulocyte % (Auto) 0.5 0-1 % Neutrophils (%) (Auto) 61.8 40.0-77.0 % Lymphocytes (%) (Auto) 23.3 21.0-51.0 % Monocytes (%) (Auto) 6.5 3.0-13.0 % Eosinophils (%) (Auto) 6.7 0.0-8.0 % Basophils (%) (Auto) 1.2 0.0-5.0 % Neutrophils # (Auto) 2.7 1.8-7.7 K/uL Lymphocytes # (Auto) 1.0 1.0-4.8 K/uL Monocytes # (Auto) 0.3 0.1-1.0 K/uL Eosinophils # (Auto) 0.29 0.00-0.70 K/uL Basophils # (Auto) 0.05 0.00-0.20 K/uL Absolute Immature Granulocyte (auto 0.02 0-1 K/uL Segmented Neutrophils % 61 40-70 % Lymphocytes % (Manual) 26 22-44 % Monocytes % (Manual) 5 2-9 % Eosinophils % (Manual) 7 H 1-6 % Basophils % (Manual) 1 0-2 % Nucleated Red Blood Cells 0.0 0.0-0.19 % Differential Comment MANUAL DIFFERENTIAL White Cell Morphology Comment Platelet Morphology Comment ADEQUATE Red Blood Cell Morphology ANISO 1+ Chemistry Labs: Test 12/02/24 05:22 12/01/24 19:55 11/30/24 15:30 Range/Units Sodium Level 141 136-145 mmol/L Potassium Level 3.8 3.5-5.1 mmol/L Chloride Level 108 101-111 mmol/L Carbon Dioxide Level 27 21-32 mmol/L Blood Urea Nitrogen 12 7-18 mg/dL Creatinine 1.0 0.5-1.3 mg/dL Glomerular Filtration Rate Calc 82 >90 mL/min Random Glucose 97 70-105 mg/dL Total Calcium 8.2 L 8.5-10.1 mg/dL Total Bilirubin 1.0 0.2-1.0 mg/dL Aspartate Amino Transf (AST/SGOT) 16 10-37 U/L Alanine Aminotransferase (ALT/SGPT) 14 12-78 U/L Alkaline Phosphatase 95 50-136 U/L Total Protein 6.2 6.0-8.3 g/dL Albumin 2.4 L 3.5-5.0 g/dL Thyroid Stimulating Hormone (TSH) 3.54 # 0.36-3.74 uIU/mL Whole Blood Glucose 99 70-110 MG/DL DIAGNOSTICS / RADIOLOGY RESULTS: [ ] PLAN NEURO: Minimize central acting medications as possible. Maintain fall precautions, adequate lighting during the day PULMONARY: Supplemental 02 as needed. Maintain aspiration precautions at all times CARDIOVASCULAR: Follow hemodynamics. Vital signs per facility protocol GI & NUTRITION: Continue with nutritional support. Continue stool softeners and laxatives as needed. KIDNEYS & ELECTROLYTES: Strict monitoring of intake, output and overall fluid balance. Avoid nephrotoxic medications to the extent possible. Medications to be dosed according to renal function. Monitor electrolytes and replace as needed ENDOCRINE: Maintain blood glucose between 100-180 at all times. Hypoglycemia protocol in place INFECTIOUS DISEASE: Trend temperature, WBC and procalcitonin level Follow cultures, deescalate antibiotics as soon as possible. Panculture if new onset fever ONCOLOGY/HEMATOLOGY/COAGULATION: Monitor for s/s of bleeding Monitor hemoglobin, coagulation studies as needed SKIN: Pressure ulcer prevention per facility protocol Specialty mattress ORTHO/REHAB: Continue PT/OT Prophylaxis: Continue GI and DVT prophylaxis Code Status: Full Resuscitation Disposition: TBD ATTESTATION BY PHYSICIAN I have evaluated the patient chart, medical records, and spoke with appropriate staff. I reviewed the documentation, medical decision making, and treatment plan as noted by the mid-level provider above. I agree with the findings and plan of care. Gerson Lyman MD, [facility] Dec 02, 2024 11:30
--- NOTE | 2024-12-02 14:36 | DS ---
Discharge Summary Assessment/Plan: ASSESSMENT: Coronary artery disease, POA, s/p CABG 3v and redo sternotomy with redo of graft failure now s/p CABG with 4v Postop acute anemia requiring transfusion Acute kidney injury Hyperlipidemia, POA Hypothyroidism, POA Peripheral artery disease, suspected Carotid artery stenosis PLAN: Coronary artery disease, POA s/p CABG 3v and redo sternotomy with redo of graft failure now s/p CABG with 4v * Continue aspirin 81 mg p.o. and Plavix daily * Supplemental oxygen as needed to maintain SpO2 greater than 94% * Echocardiogram was done which revealed aortic valve: trileaflet, mildly sclerotic, and opens well. A repeat echocardiogram on 11/25/2024 showed LVEF which is difficult to assess due to arrhythmia but estimated at 40-45%. * In coronary CT angiography there is mixed calcified and noncalcified plaque in the proximal LAD with 80-90% stenosis. Left circumflex coronary artery: Normal caliber, nondominant and gives rise to a large OM branch. There is mixed calcified and noncalcified plaque in the mid LCx with 80-90% stenosis. * Left heart catheterization with selective right and left coronary angiography was performed which showed critical left main disease. Severe ostial RCA stenosis. 11/06/24 * Cardiac catheterization demonstrated a very tight left main lesion and the patient is referred for surgical revascularization. * Patient is POD 23 S/P CABG, patient is being managed in the ICU per protocol. * Off impella since 11/25/2024 and discontinue from epinephrine since 11/27/24 * Continue fludrocortisone 0.3 mg once daily as per cardiothoracic recommendations * Pending cardiac rehab placement at [facility]. Peripheral vascular disease, suspected * Patient has history of exertional bilateral leg pain * Diminished peripheral pulses * A SERA has been ordered due to the patients complaint of bilateral lower extremity claudication, and numbness/tingling in bilateral lower extremities. * Clear aspirin 81 mg daily and statin 40mg * Encouraged supervised exercise therapy for claudication * Counseled on continued smoking cessation 11/04/24 Peripheral Neuropathy * Vitamin B12 has been ordered to rule out peripheral neuropathy.on 11/06/24, 11/17/24 * Complained of numbness and tingling in his limbs. * Vitamin B12 level was measured which showed [id number]. * Patient has been started on vitamin B12 supplement 1000 mcg for 6 days. Carotid artery stenosis * Presence of bilateral carotid bruit on exam, suspicion for significant stenosis * Risk factor modification: Smoking cessation, BP control, glycemic control. 11/04/24 * Carotid artery ultrasound showed Bilateral ICA/CCA ratio more than 4.0 suggesting more than 70% stenosis. 11/05/24 * Cardiology recommended CT/MR angiogram when stable from surgical standpoint Hyperlipidemia * Continue home statin therapy atorvastatin 40 mg * Reinforce low-cholesterol, heart healthy diet (limit saturated fats, increase fiber, fruits and vegetables) * Encouraged regular physical activity as tolerated * Monitor lipid panel * Outpatient follow up with PCP/Cardiology for long-term lipid management and cardiovascular risks reduction Supportive measures * Start patient on GI prophylaxis * DVT prophylaxis * Monitor morning labs CBC and BMP daily * He is on heart healthy diet Hypothyroidism * Continue home dose of levothyroxine at 125 mcg daily * TSH 7.13 and Free T3 1.64. Postop acute anemia requiring transfusion - Patient's hemoglobin on 11/18 is 9. Patient has normocytic anemia - His iron panel from 11/17 showed low iron and low percentage saturation. - As per Hematology recommendations, patient was given IV iron sucrose 11/18 - Hematology saw the patient and they recommended to start folic acid, vitamin B12, ordered SPEP, UPEP, free light chains. kappa light chain - 203, Lambda light chain -29.5. They think that the patient might be having hemolytic anemia which could be the reason for his graft clotting after surgery. - Follow up with morning CBC. Home Medications: Reported Medications Atorvastatin Calcium (LIPITOR) 20 Mg Tab, 1 TAB PO DAILY for 30 Days, #30 TAB 0 Refills 11/06/24 Levothyroxine Sodium (Levothyroxine) 125 Mcg Capsule, 1 CAP PO DAILY for 30 Days, #30 CAP 0 Refills 11/06/24 THOMAS WEBB MD Dec 02, 2024 14:36
--- NOTE | 2024-12-02 16:15 | PN ---
[facility]ARDIOLOG[facility] PROGRESS NOTE Date Patient Seen: Dec 02, 2024 Time of Visit: 16:14 Interval History: No acute events overnight , the patient is resting comfortably in his bed, with no acute distress, denying any chest pain, palpitations, dyspnea or any other anginal equivalents. Blood pressure is stable with a heart rate in the 70s Physical Examination: GENERAL: No acute distress. weak , frail , deconditioned HEAD: Normal with no signs of head trauma. EYES: PERRLA, EOMI, conjunctiva and sclera normal. ENT: Hearing grossly intact, normal oropharynx. NECK: Supple without JVD. There is no tenderness, lymphadenopathy, or masses. No thyromegaly. Normal carotid upstrokes without bruits. LUNGS: Clear breath sounds bilaterally. No wheezes, or rhonchi.chest tubes are in HEART: Normal rate and rhythm. Normal S1 and S2 without murmurs, gallop or rub. VASC: Peripheral pulses +2 bilaterally. ABD: Bowel sounds normal, soft, nontender, no masses, no organomegaly. No audible bruits. : Not examined LYMPH: No lymphadenopathy noted. EXT: No clubbing, cyanosis or edema. SKIN: No rashes or lesions noted. NEURO: Awake, alert, and oriented x3. No focal sensory or strength deficits noted. Laboratory: [ ] Hematology Labs: Test 12/02/24 05:22 Range/Units White Blood Count 4.3 L 4.8-10.8 K/uL Red Blood Count 3.13 L 4.50-6.20 MIL/uL Hemoglobin 9.7 L 14.0-18.0 g/dL Hematocrit 29.7 L 42-54 % Mean Corpuscular Volume 94.9 79-99 fL Mean Corpuscular Hemoglobin 31.0 27.0-33.0 pg Mean Corpuscular Hemoglobin Concent 32.7 32.0-36.0 g/dL Red Cell Distribution Width 17.6 H 11.0-15.5 % Platelet Count 232 130-400 K/uL Mean Platelet Volume 10.2 7.5-10.5 fL Immature Granulocyte % (Auto) 0.5 0-1 % Neutrophils (%) (Auto) 61.8 40.0-77.0 % Lymphocytes (%) (Auto) 23.3 21.0-51.0 % Monocytes (%) (Auto) 6.5 3.0-13.0 % Eosinophils (%) (Auto) 6.7 0.0-8.0 % Basophils (%) (Auto) 1.2 0.0-5.0 % Neutrophils # (Auto) 2.7 1.8-7.7 K/uL Lymphocytes # (Auto) 1.0 1.0-4.8 K/uL Monocytes # (Auto) 0.3 0.1-1.0 K/uL Eosinophils # (Auto) 0.29 0.00-0.70 K/uL Basophils # (Auto) 0.05 0.00-0.20 K/uL Absolute Immature Granulocyte (auto 0.02 0-1 K/uL Segmented Neutrophils % 61 40-70 % Lymphocytes % (Manual) 26 22-44 % Monocytes % (Manual) 5 2-9 % Eosinophils % (Manual) 7 H 1-6 % Basophils % (Manual) 1 0-2 % Nucleated Red Blood Cells 0.0 0.0-0.19 % Differential Comment MANUAL DIFFERENTIAL White Cell Morphology Comment Platelet Morphology Comment ADEQUATE Red Blood Cell Morphology ANISO 1+ Chemistry Labs: Test 12/02/24 05:22 12/01/24 19:55 Range/Units Sodium Level 141 136-145 mmol/L Potassium Level 3.8 3.5-5.1 mmol/L Chloride Level 108 101-111 mmol/L Carbon Dioxide Level 27 21-32 mmol/L Blood Urea Nitrogen 12 7-18 mg/dL Creatinine 1.0 0.5-1.3 mg/dL Glomerular Filtration Rate Calc 82 >90 mL/min Random Glucose 97 70-105 mg/dL Total Calcium 8.2 L 8.5-10.1 mg/dL Total Bilirubin 1.0 0.2-1.0 mg/dL Aspartate Amino Transf (AST/SGOT) 16 10-37 U/L Alanine Aminotransferase (ALT/SGPT) 14 12-78 U/L Alkaline Phosphatase 95 50-136 U/L Total Protein 6.2 6.0-8.3 g/dL Albumin 2.4 L 3.5-5.0 g/dL Thyroid Stimulating Hormone (TSH) 3.54 # 0.36-3.74 uIU/mL Diagnostics / Radiology: [Copy/Paste Echos/Imaging Report here] Impression and Plan: Abnormal CT coronary angiogram 11/05/2024 demonstrating a CAD-RADs score of 4B mixed calcified and noncalcified plaque in the left main with 50% stenosis, 80- 90% stenosis in the proximal LAD and 80-90% stenosis in mid left circumflex Critical left main and ostial RCA stenosis by cardiac catheterization 11/06/2024 S/p CABG with initial graft failure converted to Impella supported redo (CHILD- LAD, SVG-OM2, SVG-RCA and SVG-LAD) on 11/07/[address] Meza LVEF of 60-65% by 2D echocardiogram 11/05/2024 Mild ischemic cardiomyopathy with an LVEF of 40-45% by 2D echocardiogram 11/12/2024 Bilateral ICA disease with >70% stenosis by Doppler on 11/04/2024 Transaminitis, improved Hyperlipidemia CAD s/p PTCA to unknown vessel approximately 30 years ago Ex-smoker of 1 PPD with cessation 2 months ago Graves disease S/p CABG with initial graft failure converted to Impella supported redo (CHILD- LAD, SVG-OM2, SVG-RCA and SVG-LAD) on 11/07/[address] Meza -currently denies any chest pain, palpitations, dyspnea or any other anginal equivalent -The patient was noted with severe orthostatic hypotension during PT on 11/23/2024 -current blood pressure average 120s. -Continue Midodrine 15mg TID and Florinef 0.1 mg every 12 hours -continue checking orthostatics every 12 hours -Impella has been successfully removed without complications -orthostatics have been negative, his systolic manual blood pressure is falsely low -keep on telemetry, monitor/replace electrolytes as needed -we will recommend focusing of the patient's symptoms and known her systolic blood pressure -avoid the use of beta-blockers due to soft blood pressures -Continue Aspirin 81 mg daily, Plavix 75 mg daily, Atorvastatin 40 mg q.h.s., -Continue management per Cardiothoracic surgery -PT/OT -Pending rehab placement Carotid artery disease Carotid US 11/05: Mild intimal thickening in the bilateral carotid arteries and their branches. Bilateral ICA/CCA ratio is more than 4.0 suggesting more than 70% stenosis. Raised velocities in the bilateral external and internal carotid arteries. -Recommend CT/MR angiogram when stable from surgical standpoint -Continue Aspirin 81 mg daily and Atorvastatin 40 mg q.h.s. Thank you for this consult cardiology will continue to follow along Gurvinder salazar MD ATTESTATION BY PHYSICIAN I have seen and examined the patient, reviewed the above documentation, participated in medical decision making, made necessary modifications, and agree with the treatment plan as documented by my mid-level provider above. MD JUAN Caldwell JAMES R MD Dec 02, 2024 16:15
--- NOTE | 2024-12-02 20:39 | PN ---
SUBJECTIVE: A 69-year-old status post CABG for STEMI, status post Impella supported surgery, coursing postoperative day #25. The Impella was placed and removed on 11/25. OBJECTIVE: GENERAL: He is awake, alert, in no acute distress. VITAL SIGNS: Stable as recorded in the medical record. CHEST: Sternum stable. Incision sealed. LUNGS: Clear. EXTREMITIES: Warm and well perfused. No evidence of DVT, hematoma, or infection. ASSESSMENT AND PLAN: * Hypotension and syncopal episodes. The patient responded to 1 unit of packed cells. Now he is off inotropes and his blood pressures are not labile. He is no longer dizzy. We will continue with iron and vitamins. * Dyslipidemia. Lipitor 40 mg once a day. * Coronary artery disease, status post bypass. Continue aspirin and Plavix. * Transfer to rehabilitation, occupational therapy/physical therapy. TID: [id number] RECEIPT: [id number]
--- NOTE | 2024-12-15 12:57 | OP ---
DATE OF PROCEDURE: 11/07/2024 PREOPERATIVE DIAGNOSES: Coronary artery disease, ST-elevation myocardial infarction. POSTOPERATIVE DIAGNOSES: Coronary artery disease, ST-elevation myocardial infarction. PROCEDURES PERFORMED: Coronary artery bypass graft x 4, CHILD to LAD, reverse saphenous vein graft to proximal LAD, reverse saphenous vein graft to oblique marginal 2, and reverse saphenous vein graft to PDA. Insertion of L5.5 Impella through a 10 mm aortic conduit. BLOOD PRODUCTS: 3 units of packed cells. SURGEON: Glynn Meza MD BEAMER HELPER: Wil. ANESTHESIA: Dr. Alas. INDICATIONS: This is a patient of Dr. Crowell, who presented with ischemic heart and critical anatomy. The patient had tandem lesions in the LAD and obstruction of the oblique marginal and right coronary system. The patient was brought forward for surgical revascularization. An off-pump CABG was performed after revascularizing the distal LAD and looking at the anatomy of the heart with a tandem lesions and diffuse disease of the LAD, the decision was to proceed with revascularization with a heart beating. The procedure was performed with a heart beating and after 4 bypasses, the echocardiogram was stressed dysfunction of the left ventricle that all grafts are patent and normal EKG. The decision was then to proceed with placement of an L5.5 Impella for support. This was performed through a conduit placed in the ascending aorta, which was 10 mm Dacron. The reason why we did not elect to place an intraaortic balloon pump first was that both femoral arteries were occluded and the wires would not go beyond the groin. The patient was transferred in stable condition on the L5.5 to the floor. I had the opportunity to discuss the case with Dr. Crowell prior to surgery. We both agreed that the patient's critical anatomy and the surgery was indicated and was recommended. The patient understood the implications of the procedure as well as associated morbidity, mortality, procedures as it relates to his clinical comorbidities and wished to proceed with surgery understanding the risks and complications including but not limited to postoperative bleeding, postoperative VA, infection, stroke, renal failure, and/or prolonged ventilation. DESCRIPTION OF PROCEDURE IN DETAIL: With the patient in the supine position after adequate induction of general anesthesia, preoperative intravenous antibiotics, percutaneous arterial and venous lines, surgeon directed timeout utilizing 2 patient identifiers, followed by a mid sternotomy symptoms, harvesting the left internal mammary artery from anterior left chest wall and greater saphenous vein from the left lower extremity using endoscopic technique. Using a mechanical stabilizer and 4-prong tourniquet for vascular control, distal anastomosis was performed between the LAD and oblique marginal vessel. At the time that we were doing the PDA, if the heart became ischemic, then the decision was to proceed with establishment of cardiopulmonary bypass. The patient was fully heparinized and pursestring was placed in the ascending aorta and right atrium. With a heart beating, the right coronary graft was then completed and a second graft was placed on the LAD since there was a lesion between the proximal and distal portion of the LAD just distal to the second diagonal. A long segment atherectomy of the LAD was then performed here at the segment where the second diagonal was and a fourth bypass was then placed. Utilizing [employer] devices, a proximal anastomosis was performed with running suture of 5-0 Prolene. Once the heart was fully revascularized, the decision was to proceed with placement of intra-aortic balloon pump. Both groins were cannulated, but neither of them accepted the passage of the wire through the pelvis and into the descending aorta. The decision was then to proceed with placement of an Impella L5.5, which was advanced through a 10-mm conduit. A 4.8 mm puncture was performed on the anterolateral portion of the ascending aorta. A 10-mm Dacron conduit was sewn and exited through a stab wound on the left neck. The Impella was de-aired and advanced into the left ventricle and the position was corroborated by transesophageal echocardiogram. Once the position was corroborated, the device was fully de-aired. Flow was restarted. with about 3 liters of flow. The ventricle appeared with good function and with good hemodynamics. Once this was performed, the patient was given protamine. The cannulas were removed. Hemostasis was achieved. Two chest drains, stainless steel wires for sternum, open reduction and internal fixation utilizing 3 GRAEME plates and 18 #16-gauge screws. The seated Impella was secured to the skin and the wound was covered leaving the Dacron graft underneath the skin. The patient was transferred in stable condition to the ICU with good hemodynamics and normal EKG. TID: [id number] RECEIPT: [id number]
== END 2024-12-02 18:50 | DRG 1 ==
LOC: EDH 17:19 → EDHIP 19:57 → 2CV 11-04 12:33 → 2AH 11-04 16:30 → 2CV 11-07 14:51 → 2CH 11-10 17:04 → 2DH 11-29 13:15
PROVIDERS: ADMIT Internal Medicine; ATTEND Internal Medicine
PROC: 4A023N7 Measurement of Cardiac Sampling and Pressure, Left Heart, Percutaneous Approach (ICD-10-PCS; 2024-11-06)
PROC: B2111ZZ Fluoroscopy of Multiple Coronary Arteries using Low Osmolar Contrast (ICD-10-PCS; 2024-11-06)
PROC: 021209W Bypass Coronary Artery, Three Arteries from Aorta with Autologous Venous Tissue, Open Approach (ICD-10-PCS; 2024-11-07)
PROC: 06BQ4ZZ Excision of Left Saphenous Vein, Percutaneous Endoscopic Approach (ICD-10-PCS; 2024-11-07)
PROC: 5A02210 Assistance with Cardiac Output using Balloon Pump, Continuous (ICD-10-PCS; 2024-11-07)
PROC: 30233N1 Transfusion of Nonautologous Red Blood Cells into Peripheral Vein, Percutaneous Approach (ICD-10-PCS; 2024-11-07)
PROC: B24BZZ4 Ultrasonography of Heart with Aorta, Transesophageal (ICD-10-PCS; 2024-11-07)
PROC: X2HX0F9 Insertion of Conduit to Short-term External Heart Assist System into Thoracic Aorta, Ascending, Open Approach, New Technology Group 9 (ICD-10-PCS; 2024-11-07)
PROC: 02HA0RZ Insertion of Short-term External Heart Assist System into Heart, Open Approach (ICD-10-PCS; 2024-11-07 14:27)
PROC: 02100Z9 Bypass Coronary Artery, One Artery from Left Internal Mammary, Open Approach (ICD-10-PCS; 2024-11-07 14:27)
PROC: 03HY32Z Insertion of Monitoring Device into Upper Artery, Percutaneous Approach (ICD-10-PCS; 2024-11-09)
PROC: B54MZZA Ultrasonography of Right Upper Extremity Veins, Guidance (ICD-10-PCS; 2024-11-09)
PROC: B54MZZA Ultrasonography of Right Upper Extremity Veins, Guidance (ICD-10-PCS; 2024-11-12)
PROC: 03HY32Z Insertion of Monitoring Device into Upper Artery, Percutaneous Approach (ICD-10-PCS; 2024-11-12)
PROC: 02HV33Z Insertion of Infusion Device into Superior Vena Cava, Percutaneous Approach (ICD-10-PCS; 2024-11-23)
PROC: 02PA3RZ Removal of Short-term External Heart Assist System from Heart, Percutaneous Approach (ICD-10-PCS; principal; 2024-11-25 13:30)
DX: I25.110 Atherosclerotic heart disease of native coronary artery with unstable angina pectoris (principal); J95.1 Acute pulmonary insufficiency following thoracic surgery; N17.0 Acute kidney failure with tubular necrosis; R57.0 Cardiogenic shock; E87.0 Hyperosmolality and hypernatremia; D62 Acute posthemorrhagic anemia; D68.59 Other primary thrombophilia; I97.791 Other intraoperative cardiac functional disturbances during other surgery; D72.829 Elevated white blood cell count, unspecified; I95.1 Orthostatic hypotension; Y83.8 Other surgical procedures as the cause of abnormal reaction of the patient, or of later complication, without mention of misadventure at the time of the procedure; R00.1 Bradycardia, unspecified; I65.29 Occlusion and stenosis of unspecified carotid artery; E05.00 Thyrotoxicosis with diffuse goiter without thyrotoxic crisis or storm; E78.00 Pure hypercholesterolemia, unspecified; I73.9 Peripheral vascular disease, unspecified; D50.9 Iron deficiency anemia, unspecified; D69.59 Other secondary thrombocytopenia; D75.839 Thrombocytosis, unspecified; E03.9 Hypothyroidism, unspecified; E66.9 Obesity, unspecified; E83.39 Other disorders of phosphorus metabolism; R73.9 Hyperglycemia, unspecified; E87.6 Hypokalemia; E87.70 Fluid overload, unspecified; E88.09 Other disorders of plasma-protein metabolism, not elsewhere classified; I25.5 Ischemic cardiomyopathy; I51.7 Cardiomegaly; I48.91 Unspecified atrial fibrillation; K59.00 Constipation, unspecified; G62.9 Polyneuropathy, unspecified; Z79.02 Long term (current) use of antithrombotics/antiplatelets; Z79.82 Long term (current) use of aspirin; Z79.899 Other long term (current) drug therapy; I25.2 Old myocardial infarction; Z87.891 Personal history of nicotine dependence; Z95.1 Presence of aortocoronary bypass graft; Z98.61 Coronary angioplasty status; Z68.28 Body mass index [BMI] 28.0-28.9, adult; Z98.890 Other specified postprocedural states
CPT/HCPCS: 36415; 36430; 36569; 36600; 36620; 71045; 75574; 76376; 80048; 80053; 80061; 80076; 81003; 82330; 82435; 82533; 82550; 82607; 82728; 82803; 82947; 82948; 83036; 83521; 83605; 83735; 84100; 84132; 84145; 84295; 84436; 84443; 84481; 84484; 85018; 85025; 85027; 85347; 85610; 85730; 86157; 86334; 86340; 86850; 86880; 86900; 86901; 86923; 87641; 93005; 93306; 93308; 93312; 93325; 93356; 93458; 93880; 94002; 94003; 94150; 94640; 94660; 94664; 97161; 99156; 99157; 99285; A4450; A7048; C1769; G0378; J0169; J0282; J0330; J0612; J0690; J1100; J1644; J1650; J1756; J1815; J1938; J2003; J2150; J2250; J2270; J2405; J2440; J2470; J2543; J2704; J2710; J2720; J2765; J3010; J3420; J3475; J3480; J3490; J7030; J7040; J7050; J7070; P9016; P9045; P9047; Q9967; A4649; A4930; A6204; A7040; C1713; C1751; C1768; C1776; C1887; C1894; J0283; J0665; J1308; Q9965